=== PATIENT | female | born 1970 | race Two or more races ===

== ENCOUNTER 2016-05-21 | Inpatient (IN) | END 2017-05-20 23:59 | disposition still patient (30) | DRG 133 | DX: J96.11 Chronic respiratory failure with hypoxia (principal); G93.1 Anoxic brain damage, not elsewhere classified; R40.3 Persistent vegetative state; Z93.0 Tracheostomy status; R53.2 Functional quadriplegia; R13.10 Dysphagia, unspecified; N39.0 Urinary tract infection, site not specified; E11.9 Type 2 diabetes mellitus without complications; B95.2 Enterococcus as the cause of diseases classified elsewhere; I11.0 Hypertensive heart disease with heart failure; E87.6 Hypokalemia; Z93.1 Gastrostomy status; Z88.0 Allergy status to penicillin; F32.9 Major depressive disorder, single episode, unspecified; Z86.74 Personal history of sudden cardiac arrest; L21.9 Seborrheic dermatitis, unspecified; M24.50 Contracture, unspecified joint; D56.1 Beta thalassemia; E66.01 Morbid (severe) obesity due to excess calories; Z68.21 Body mass index [BMI] 21.0-21.9, adult; I10 Essential (primary) hypertension; G40.909 Epilepsy, unspecified, not intractable, without status epilepticus; Z79.899 Other long term (current) drug therapy ==

== ENCOUNTER 2017-05-21 | Inpatient (IN) | payer MEDICAID ==
[~2017-05-21] VITALS: Ht 160 cm; Wt 55.3 kg
[2017-05-22 08:00] VITALS: BP 139/87
[2017-05-22] MEDS ORDERED: LOPERAMIDE HCL 1 MG/5 ML UDC GT PRN (11:45)
[2017-05-22] MEDS ORDERED: HYDROGEN PEROXIDE 3% 118 ML BOTTLE TP PRN (11:45)
[2017-05-22] MEDS ORDERED: CALMOSEPTINE 113 GM OINTMENT TP PRN (11:45)
[2017-05-22] MEDS ORDERED: ALBUTEROL SULFATE 1.25 MG/3 ML NEBU NEB PRN (11:45)
[2017-05-22] MEDS ORDERED: ACETAMINOPHEN 650 MG/20 ML UDC- SA PATIENTS-PAIN ONLY GT PRN (11:45)
[2017-05-22] MEDS: SIMETHICONE 40 MG/0.6 ML, 30ML BOTTLE GT SCH ×2 (13:00→17:11)
[2017-05-22] MEDS: BACLOFEN 20 MG TABLET GT SCH ×2 (17:11→21:04)
[2017-05-22] MEDS: ACIDOPHILUS/BULGARICUS CHEW TAB GT SCH (21:04)
[2017-05-22] MEDS: DOCUSATE SODIUM 100 MG/10 ML LIQUID UDC GT SCH (21:04)
[2017-05-22] MEDS: METOPROLOL TARTRATE 50 MG TABLET GT SCH (21:05)
[2017-05-22] MEDS: ASCORBIC ACID 500 MG TABLET PO SCH (21:06)
[2017-05-22] MEDS: NUTRISOURCE FIBER 4 GM PACKET GT SCH (21:06)
[2017-05-22] MEDS: HYDROGEN PEROXIDE 3% 118 ML BOTTLE TP SCH (21:08)
[2017-05-22] MEDS: CALMOSEPTINE 113 GM OINTMENT TP SCH (21:08)
[2017-05-23 00:14] VITALS: BP 106/65
[2017-05-23] MEDS: OMEPRAZOLE 20 MG CAPSULE.DR GT SCH (05:42)
[2017-05-23] MEDS: MULTIVITS W-FE,OTHER MIN 15 ML UDC GT SCH (05:42)
[2017-05-23] MEDS: DIABETICSOURCE AC 1000ML LIQUID GT PRN (07:10)
[2017-05-23 08:00] VITALS: BP 139/87
[2017-05-23] MEDS: DOCUSATE SODIUM 100 MG/10 ML LIQUID UDC GT SCH ×2 (08:07→21:35)
[2017-05-23] MEDS: BACLOFEN 20 MG TABLET GT SCH ×4 (08:07→21:36)
[2017-05-23] MEDS: ACIDOPHILUS/BULGARICUS CHEW TAB GT SCH ×2 (08:07→21:36)
[2017-05-23] MEDS: HYDROGEN PEROXIDE 3% 118 ML BOTTLE TP SCH ×2 (08:08→21:37)
[2017-05-23] MEDS: SERTRALINE HCL 50 MG TABLET GT SCH (08:08)
[2017-05-23] MEDS: CALMOSEPTINE 113 GM OINTMENT TP SCH ×2 (08:08→21:37)
[2017-05-23] MEDS: NUTRISOURCE FIBER 4 GM PACKET GT SCH ×2 (08:08→21:37)
[2017-05-23] MEDS: SIMETHICONE 40 MG/0.6 ML, 30ML BOTTLE GT SCH ×3 (08:08→17:31)
[2017-05-23] MEDS: METOPROLOL TARTRATE 50 MG TABLET GT SCH ×2 (08:08→21:37)
[2017-05-23] MEDS: ASCORBIC ACID 500 MG TABLET PO SCH (21:37)
[2017-05-23 23:24] VITALS: BP 107/67
[2017-05-24] MEDS: OMEPRAZOLE 20 MG CAPSULE.DR GT SCH (05:04)
[2017-05-24 08:00] VITALS: BP 109/70
[2017-05-24] MEDS: METOPROLOL TARTRATE 50 MG TABLET GT SCH ×2 (08:38→21:45)
[2017-05-24] MEDS: BACLOFEN 20 MG TABLET GT SCH ×4 (08:38→21:44)
[2017-05-24] MEDS: SIMETHICONE 40 MG/0.6 ML, 30ML BOTTLE GT SCH ×3 (08:38→17:14)
[2017-05-24] MEDS: DOCUSATE SODIUM 100 MG/10 ML LIQUID UDC GT SCH ×2 (08:38→21:44)
[2017-05-24] MEDS: ACIDOPHILUS/BULGARICUS CHEW TAB GT SCH ×2 (08:38→21:44)
[2017-05-24] MEDS: SERTRALINE HCL 50 MG TABLET GT SCH (08:39)
[2017-05-24] MEDS: NUTRISOURCE FIBER 4 GM PACKET GT SCH ×2 (08:39→21:45)
[2017-05-24] MEDS: HYDROGEN PEROXIDE 3% 118 ML BOTTLE TP SCH ×2 (08:39→21:45)
[2017-05-24] MEDS: CALMOSEPTINE 113 GM OINTMENT TP SCH ×2 (08:39→21:45)
[2017-05-24] MEDS: ASCORBIC ACID 500 MG TABLET PO SCH (21:45)
[2017-05-24 23:41] VITALS: BP 114/69
[2017-05-25] MEDS: MULTIVITS W-FE,OTHER MIN 15 ML UDC GT SCH (05:37)
[2017-05-25] MEDS: OMEPRAZOLE 20 MG CAPSULE.DR GT SCH (05:37)
[2017-05-25 08:00] VITALS: BP 104/70
[2017-05-25] MEDS: BACLOFEN 20 MG TABLET GT SCH ×4 (08:47→21:29)
[2017-05-25] MEDS: ACIDOPHILUS/BULGARICUS CHEW TAB GT SCH ×2 (08:47→21:29)
[2017-05-25] MEDS: DOCUSATE SODIUM 100 MG/10 ML LIQUID UDC GT SCH ×2 (08:47→21:29)
[2017-05-25] MEDS: CALMOSEPTINE 113 GM OINTMENT TP SCH ×2 (08:48→21:30)
[2017-05-25] MEDS: SERTRALINE HCL 50 MG TABLET GT SCH (08:48)
[2017-05-25] MEDS: SIMETHICONE 40 MG/0.6 ML, 30ML BOTTLE GT SCH ×3 (08:48→16:13)
[2017-05-25] MEDS: NUTRISOURCE FIBER 4 GM PACKET GT SCH ×2 (08:48→21:30)
[2017-05-25] MEDS: METOPROLOL TARTRATE 50 MG TABLET GT SCH ×2 (08:48→21:30)
[2017-05-25] MEDS: HYDROGEN PEROXIDE 3% 118 ML BOTTLE TP SCH ×2 (08:48→21:30)
[2017-05-25] MEDS: DIABETICSOURCE AC 1000ML LIQUID GT PRN (14:32)
[2017-05-25 20:35] VITALS: BP 112/73
[2017-05-25] MEDS: ASCORBIC ACID 500 MG TABLET PO SCH (21:30)
[2017-05-26] MEDS: OMEPRAZOLE 20 MG CAPSULE.DR GT SCH (05:03)
[2017-05-26 08:09] VITALS: BP 110/77
[2017-05-26] MEDS: DOCUSATE SODIUM 100 MG/10 ML LIQUID UDC GT SCH ×2 (09:52→20:48)
[2017-05-26] MEDS: BACLOFEN 20 MG TABLET GT SCH ×4 (09:52→20:48)
[2017-05-26] MEDS: ACIDOPHILUS/BULGARICUS CHEW TAB GT SCH ×2 (09:52→20:48)
[2017-05-26] MEDS: SIMETHICONE 40 MG/0.6 ML, 30ML BOTTLE GT SCH ×3 (09:53→17:48)
[2017-05-26] MEDS: METOPROLOL TARTRATE 50 MG TABLET GT SCH ×2 (09:53→20:49)
[2017-05-26] MEDS: SERTRALINE HCL 50 MG TABLET GT SCH (09:53)
[2017-05-26] MEDS: HYDROGEN PEROXIDE 3% 118 ML BOTTLE TP SCH ×2 (09:53→20:50)
[2017-05-26] MEDS: CALMOSEPTINE 113 GM OINTMENT TP SCH ×2 (09:53→20:50)
[2017-05-26] MEDS: NUTRISOURCE FIBER 4 GM PACKET GT SCH ×2 (09:53→20:50)
[2017-05-26 20:33] VITALS: BP 126/87
[2017-05-26] MEDS: ASCORBIC ACID 500 MG TABLET PO SCH (20:50)
[2017-05-26] MEDS: DIABETICSOURCE AC 1000ML LIQUID GT PRN (20:50)
[2017-05-27] MEDS: MULTIVITS W-FE,OTHER MIN 15 ML UDC GT SCH (05:56)
[2017-05-27] MEDS: OMEPRAZOLE 20 MG CAPSULE.DR GT SCH (05:56)
[2017-05-27] MEDS: ACETAMINOPHEN 650 MG/20 ML UDC- SA PATIENTS-PAIN ONLY GT PRN (05:58)
[2017-05-27 08:09] VITALS: BP 119/72
[2017-05-27] MEDS: ACIDOPHILUS/BULGARICUS CHEW TAB GT SCH ×2 (08:39→21:29)
[2017-05-27] MEDS: DOCUSATE SODIUM 100 MG/10 ML LIQUID UDC GT SCH ×2 (08:39→21:29)
[2017-05-27] MEDS: METOPROLOL TARTRATE 50 MG TABLET GT SCH ×2 (08:40→21:29)
[2017-05-27] MEDS: SIMETHICONE 40 MG/0.6 ML, 30ML BOTTLE GT SCH ×3 (08:40→17:21)
[2017-05-27] MEDS: BACLOFEN 20 MG TABLET GT SCH ×4 (08:40→21:29)
[2017-05-27] MEDS: TRIAMCINOLONE ACET 0.1% CREAM 15 GM TUBE TP SCH ×2 (08:41)
[2017-05-27] MEDS: NYSTATIN CREAM 30 GM TUBE TP SCH ×2 (08:41)
[2017-05-27] MEDS: SERTRALINE HCL 50 MG TABLET GT SCH (08:41)
[2017-05-27] MEDS: CALMOSEPTINE 113 GM OINTMENT TP SCH ×2 (08:41→21:30)
[2017-05-27] MEDS: NUTRISOURCE FIBER 4 GM PACKET GT SCH ×2 (08:41→21:29)
[2017-05-27] MEDS: HYDROGEN PEROXIDE 3% 118 ML BOTTLE TP SCH ×2 (08:41→21:31)
[2017-05-27 20:26] VITALS: BP 107/68
[2017-05-27] MEDS: ASCORBIC ACID 500 MG TABLET PO SCH (21:30)
[2017-05-27] MEDS: DIABETICSOURCE AC 1000ML LIQUID GT PRN (21:48)
[2017-05-28] MEDS: OMEPRAZOLE 20 MG CAPSULE.DR GT SCH (06:17)
[2017-05-28 08:00] VITALS: BP 100/67
[2017-05-28] MEDS: ACIDOPHILUS/BULGARICUS CHEW TAB GT SCH ×2 (08:11→21:52)
[2017-05-28] MEDS: DOCUSATE SODIUM 100 MG/10 ML LIQUID UDC GT SCH ×2 (08:11→21:52)
[2017-05-28] MEDS: HYDROGEN PEROXIDE 3% 118 ML BOTTLE TP SCH ×2 (08:12→21:53)
[2017-05-28] MEDS: CALMOSEPTINE 113 GM OINTMENT TP SCH ×2 (08:12→21:53)
[2017-05-28] MEDS: NYSTATIN CREAM 30 GM TUBE TP SCH ×2 (08:12)
[2017-05-28] MEDS: SIMETHICONE 40 MG/0.6 ML, 30ML BOTTLE GT SCH ×3 (08:12→17:29)
[2017-05-28] MEDS: NUTRISOURCE FIBER 4 GM PACKET GT SCH ×2 (08:12→21:53)
[2017-05-28] MEDS: METOPROLOL TARTRATE 50 MG TABLET GT SCH ×2 (08:12→21:53)
[2017-05-28] MEDS: BACLOFEN 20 MG TABLET GT SCH ×4 (08:12→21:52)
[2017-05-28] MEDS: TRIAMCINOLONE ACET 0.1% CREAM 15 GM TUBE TP SCH ×2 (08:12)
[2017-05-28] MEDS: SERTRALINE HCL 50 MG TABLET GT SCH (08:12)
--- NOTE | 2017-05-28 14:15 | NUR ---
SEEN BY GLENN MORGAN.
--- NOTE | 2017-05-28 14:19 | NUR ---
SEEN BY ABIEL MORGAN.
[2017-05-28] MEDS: ASCORBIC ACID 500 MG TABLET PO SCH (21:53)
[2017-05-29 01:30] VITALS: BP 106/65
[2017-05-29] MEDS: DIABETICSOURCE AC 1000ML LIQUID GT PRN (01:43)
[2017-05-29] MEDS: OMEPRAZOLE 20 MG CAPSULE.DR GT SCH (06:45)
[2017-05-29] MEDS: MULTIVITS W-FE,OTHER MIN 15 ML UDC GT SCH (06:45)
[2017-05-29] MEDS: BACLOFEN 20 MG TABLET GT SCH ×4 (09:06→21:38)
[2017-05-29] MEDS: ACIDOPHILUS/BULGARICUS CHEW TAB GT SCH ×2 (09:06→21:37)
[2017-05-29] MEDS: DOCUSATE SODIUM 100 MG/10 ML LIQUID UDC GT SCH ×2 (09:06→21:37)
[2017-05-29] MEDS: CALMOSEPTINE 113 GM OINTMENT TP SCH ×2 (09:07→21:39)
[2017-05-29] MEDS: METOPROLOL TARTRATE 50 MG TABLET GT SCH ×2 (09:07→21:38)
[2017-05-29] MEDS: SIMETHICONE 40 MG/0.6 ML, 30ML BOTTLE GT SCH ×3 (09:07→16:39)
[2017-05-29] MEDS: SERTRALINE HCL 50 MG TABLET GT SCH (09:07)
[2017-05-29] MEDS: NUTRISOURCE FIBER 4 GM PACKET GT SCH ×2 (09:07→21:38)
[2017-05-29] MEDS: HYDROGEN PEROXIDE 3% 118 ML BOTTLE TP SCH ×2 (09:07→21:39)
[2017-05-29] MEDS: TRIAMCINOLONE ACET 0.1% CREAM 15 GM TUBE TP SCH ×2 (09:08)
[2017-05-29] MEDS: NYSTATIN CREAM 30 GM TUBE TP SCH ×2 (09:08→09:09)
[2017-05-29 11:18] VITALS: BP 114/73
--- NOTE | 2017-05-29 14:30 | NUR ---
SEEN BY HAROLDO MORGAN.
[2017-05-29 20:00] VITALS: BP 120/81
[2017-05-29] MEDS: ASCORBIC ACID 500 MG TABLET PO SCH (21:39)
[2017-05-30] MEDS: DIABETICSOURCE AC 1000ML LIQUID GT PRN (00:35)
[2017-05-30] MEDS: OMEPRAZOLE 20 MG CAPSULE.DR GT SCH (05:41)
[2017-05-30] MEDS: DOCUSATE SODIUM 100 MG/10 ML LIQUID UDC GT SCH ×2 (08:15→21:39)
[2017-05-30] MEDS: ACIDOPHILUS/BULGARICUS CHEW TAB GT SCH ×2 (08:15→21:39)
[2017-05-30] MEDS: BACLOFEN 20 MG TABLET GT SCH ×4 (08:15→21:39)
[2017-05-30] MEDS: METOPROLOL TARTRATE 50 MG TABLET GT SCH ×2 (08:16→21:40)
[2017-05-30] MEDS: SIMETHICONE 40 MG/0.6 ML, 30ML BOTTLE GT SCH ×3 (08:16→17:31)
[2017-05-30] MEDS: SERTRALINE HCL 50 MG TABLET GT SCH (08:17)
[2017-05-30] MEDS: CALMOSEPTINE 113 GM OINTMENT TP SCH ×2 (08:17→21:40)
[2017-05-30] MEDS: NUTRISOURCE FIBER 4 GM PACKET GT SCH ×2 (08:17→21:40)
[2017-05-30] MEDS: HYDROGEN PEROXIDE 3% 118 ML BOTTLE TP SCH ×2 (08:17→21:40)
[2017-05-30] MEDS: TRIAMCINOLONE ACET 0.1% CREAM 15 GM TUBE TP SCH ×2 (08:17)
[2017-05-30] MEDS: NYSTATIN CREAM 30 GM TUBE TP SCH ×2 (08:17→08:18)
[2017-05-30 11:03] VITALS: BP 105/66
[2017-05-30 20:00] VITALS: BP 127/90
[2017-05-30] MEDS: ASCORBIC ACID 500 MG TABLET PO SCH (21:40)
[2017-05-31] MEDS: BISACODYL 10 MG SUPP.RECT RC PRN (02:00)
[2017-05-31] MEDS: MULTIVITS W-FE,OTHER MIN 15 ML UDC GT SCH (05:50)
[2017-05-31] MEDS: DIABETICSOURCE AC 1000ML LIQUID GT PRN ×2 (05:50→10:15)
[2017-05-31] MEDS: OMEPRAZOLE 20 MG CAPSULE.DR GT SCH (05:50)
[2017-05-31 08:08] VITALS: BP 108/70
[2017-05-31] MEDS: NUTRISOURCE FIBER 4 GM PACKET GT SCH ×2 (09:00→21:38)
[2017-05-31] MEDS: BACLOFEN 20 MG TABLET GT SCH ×4 (09:00→21:37)
[2017-05-31] MEDS: TRIAMCINOLONE ACET 0.1% CREAM 15 GM TUBE TP SCH ×2 (09:00)
[2017-05-31] MEDS: METOPROLOL TARTRATE 50 MG TABLET GT SCH ×2 (09:00→21:38)
[2017-05-31] MEDS: DOCUSATE SODIUM 100 MG/10 ML LIQUID UDC GT SCH ×2 (09:00→21:37)
[2017-05-31] MEDS: CALMOSEPTINE 113 GM OINTMENT TP SCH ×2 (09:00→21:38)
[2017-05-31] MEDS: HYDROGEN PEROXIDE 3% 118 ML BOTTLE TP SCH ×2 (09:00→21:38)
[2017-05-31] MEDS: ACIDOPHILUS/BULGARICUS CHEW TAB GT SCH ×2 (09:00→21:37)
[2017-05-31] MEDS: SIMETHICONE 40 MG/0.6 ML, 30ML BOTTLE GT SCH ×3 (09:00→16:24)
[2017-05-31] MEDS: SERTRALINE HCL 50 MG TABLET GT SCH (09:00)
[2017-05-31] MEDS: NYSTATIN CREAM 30 GM TUBE TP SCH ×2 (09:00)
[2017-05-31 20:00] VITALS: BP 113/74
[2017-05-31] MEDS: ASCORBIC ACID 500 MG TABLET PO SCH (21:38)
--- NOTE | 2017-06-01 02:33 | NUR ---
Changed multivitamins with minerals liquid to tablet form: Multivitamins with minerals one tablet every 48 hours @ 0600.
[2017-06-01] MEDS: OMEPRAZOLE 20 MG CAPSULE.DR GT SCH (05:42)
[2017-06-01] MEDS: DIABETICSOURCE AC 1000ML LIQUID GT PRN (06:00)
[2017-06-01] MEDS ORDERED: MULTIVIT, IRON, MIN NO. 8, FA TABLET GT SCH ×2 (06:30→08:26)
[2017-06-01 08:06] VITALS: BP 98/65
[2017-06-01] MEDS: METOPROLOL TARTRATE 50 MG TABLET GT SCH ×2 (09:00→21:37)
[2017-06-01] MEDS: BACLOFEN 20 MG TABLET GT SCH ×4 (09:48→21:37)
[2017-06-01] MEDS: ACIDOPHILUS/BULGARICUS CHEW TAB GT SCH ×2 (09:48→21:37)
[2017-06-01] MEDS: DOCUSATE SODIUM 100 MG/10 ML LIQUID UDC GT SCH ×2 (09:48→21:37)
[2017-06-01] MEDS: CALMOSEPTINE 113 GM OINTMENT TP SCH ×2 (09:49→21:37)
[2017-06-01] MEDS: NUTRISOURCE FIBER 4 GM PACKET GT SCH ×2 (09:49→21:37)
[2017-06-01] MEDS: SERTRALINE HCL 50 MG TABLET GT SCH (09:49)
[2017-06-01] MEDS: HYDROGEN PEROXIDE 3% 118 ML BOTTLE TP SCH ×2 (09:49→21:37)
[2017-06-01] MEDS: SIMETHICONE 40 MG/0.6 ML, 30ML BOTTLE GT SCH ×3 (09:49→16:58)
[2017-06-01] MEDS: TRIAMCINOLONE ACET 0.1% CREAM 15 GM TUBE TP SCH ×2 (09:50)
[2017-06-01] MEDS: NYSTATIN CREAM 30 GM TUBE TP SCH ×2 (09:50)
[2017-06-01 20:00] VITALS: BP 110/69
[2017-06-01] MEDS: ASCORBIC ACID 500 MG TABLET PO SCH (21:37)
[2017-06-02] MEDS: DIABETICSOURCE AC 1000ML LIQUID GT PRN (03:58)
[2017-06-02] MEDS: OMEPRAZOLE 20 MG CAPSULE.DR GT SCH (05:13)
[2017-06-02 08:06] VITALS: BP 103/70
[2017-06-02] MEDS: BACLOFEN 20 MG TABLET GT SCH ×4 (08:37→21:03)
[2017-06-02] MEDS: ACIDOPHILUS/BULGARICUS CHEW TAB GT SCH ×2 (08:37→21:03)
[2017-06-02] MEDS: DOCUSATE SODIUM 100 MG/10 ML LIQUID UDC GT SCH ×2 (08:37→21:03)
[2017-06-02] MEDS: METOPROLOL TARTRATE 50 MG TABLET GT SCH ×2 (08:37→21:05)
[2017-06-02] MEDS: SIMETHICONE 40 MG/0.6 ML, 30ML BOTTLE GT SCH ×3 (08:38→17:14)
[2017-06-02] MEDS: NYSTATIN CREAM 30 GM TUBE TP SCH ×2 (08:38)
[2017-06-02] MEDS: SERTRALINE HCL 50 MG TABLET GT SCH (08:38)
[2017-06-02] MEDS: CALMOSEPTINE 113 GM OINTMENT TP SCH ×2 (08:38→21:03)
[2017-06-02] MEDS: NUTRISOURCE FIBER 4 GM PACKET GT SCH ×2 (08:38→21:03)
[2017-06-02] MEDS: TRIAMCINOLONE ACET 0.1% CREAM 15 GM TUBE TP SCH ×2 (08:38)
[2017-06-02] MEDS: HYDROGEN PEROXIDE 3% 118 ML BOTTLE TP SCH ×2 (08:38→21:03)
--- NOTE | 2017-06-02 17:51 | NUR ---
MESSAGE WAS LEFT FOR PT'S BROTHER JANET TO COME AND SIGN RENEWAL CONSENT FOR ZOLOFT ( RECOMMENDED BY PHARMACIST)
[2017-06-02 20:00] VITALS: BP 108/72
[2017-06-02] MEDS: ASCORBIC ACID 500 MG TABLET PO SCH (21:03)
[2017-06-03] MEDS: OMEPRAZOLE 20 MG CAPSULE.DR GT SCH (05:15)
[2017-06-03] MEDS: MULTIVIT, IRON, MIN NO. 8, FA TABLET GT SCH (05:37)
[2017-06-03 08:03] VITALS: BP 106/68
[2017-06-03] MEDS: METOPROLOL TARTRATE 50 MG TABLET GT SCH ×2 (08:55→21:36)
[2017-06-03] MEDS: ACIDOPHILUS/BULGARICUS CHEW TAB GT SCH ×2 (08:55→21:35)
[2017-06-03] MEDS: BACLOFEN 20 MG TABLET GT SCH ×4 (08:55→21:35)
[2017-06-03] MEDS: TRIAMCINOLONE ACET 0.1% CREAM 15 GM TUBE TP SCH ×2 (08:56)
[2017-06-03] MEDS: NYSTATIN CREAM 30 GM TUBE TP SCH ×2 (08:56)
[2017-06-03] MEDS: SERTRALINE HCL 50 MG TABLET GT SCH (08:56)
[2017-06-03] MEDS: CALMOSEPTINE 113 GM OINTMENT TP SCH ×2 (08:56→21:36)
[2017-06-03] MEDS: SIMETHICONE 40 MG/0.6 ML, 30ML BOTTLE GT SCH ×3 (08:56→17:37)
[2017-06-03] MEDS: HYDROGEN PEROXIDE 3% 118 ML BOTTLE TP SCH ×2 (08:56→21:36)
[2017-06-03] MEDS: NUTRISOURCE FIBER 4 GM PACKET GT SCH ×2 (08:56→21:36)
[2017-06-03] MEDS: DOCUSATE SODIUM 100 MG/10 ML LIQUID UDC GT SCH ×3 (09:00→21:35)
--- NOTE | 2017-06-03 09:28 | NUR ---
PICTURE TAKEN BY [facility] SHIFT NURSE ,INNER BUTTOCKS EXCORIATION RELATED TO LOOSE STOOL ,STOOL SOFTENER HELD ,LOCAL TX STARTED FROM DR. IBRAHIM .
--- NOTE | 2017-06-03 11:47 | NUR ---
PT'S BROTHER AWARE THAT NEEDS TO COME AND SIGN RENEWED CONSENT FOR ZOLOFT AND HE STATED THAT HE WILL COME TO SEE PT. NEXT WEEKEND.
[2017-06-03 20:47] VITALS: BP 118/75
[2017-06-03] MEDS: ASCORBIC ACID 500 MG TABLET PO SCH (21:36)
[2017-06-04] MEDS: OMEPRAZOLE 20 MG CAPSULE.DR GT SCH (05:27)
[2017-06-04 08:00] VITALS: BP 123/80
[2017-06-04] MEDS: DOCUSATE SODIUM 100 MG/10 ML LIQUID UDC GT SCH ×2 (08:02→21:00)
[2017-06-04] MEDS: BACLOFEN 20 MG TABLET GT SCH ×4 (08:02→20:56)
[2017-06-04] MEDS: ACIDOPHILUS/BULGARICUS CHEW TAB GT SCH ×2 (08:02→20:56)
[2017-06-04] MEDS: SIMETHICONE 40 MG/0.6 ML, 30ML BOTTLE GT SCH ×3 (08:03→17:21)
[2017-06-04] MEDS: METOPROLOL TARTRATE 50 MG TABLET GT SCH ×2 (08:03→20:57)
[2017-06-04] MEDS: TRIAMCINOLONE ACET 0.1% CREAM 15 GM TUBE TP SCH ×2 (08:04)
[2017-06-04] MEDS: HYDROGEN PEROXIDE 3% 118 ML BOTTLE TP SCH ×2 (08:04→20:58)
[2017-06-04] MEDS: CALMOSEPTINE 113 GM OINTMENT TP SCH ×2 (08:04→20:58)
[2017-06-04] MEDS: NYSTATIN CREAM 30 GM TUBE TP SCH ×4 (08:04→20:59)
[2017-06-04] MEDS: SERTRALINE HCL 50 MG TABLET GT SCH (08:04)
[2017-06-04] MEDS: NUTRISOURCE FIBER 4 GM PACKET GT SCH ×2 (08:04→20:57)
[2017-06-04] MEDS: COD LIVER OIL/ZINC OXIDE OINT 113 GM TUBE TP SCH ×2 (08:09→20:58)
--- NOTE | 2017-06-04 09:34 | NUR ---
SEEN BY GLENN Bolaños AND O.
--- NOTE | 2017-06-04 09:43 | NUR ---
SEEN Y ABIEL MORGAN.
--- NOTE | 2017-06-04 15:25 | NUR ---
SW met with patient's caregiver and gave her the packet of all annual admission paperwork that patient's mother needs to review and sign. SW provided instructions with the packet. SW asked the caregiver to deliver the forms to patient's mother and return them back to once they are signed by patient's mother. Caregiver agreed.
[2017-06-04] MEDS: DIABETICSOURCE AC 1000ML LIQUID GT PRN (15:51)
[2017-06-04] MEDS: ASCORBIC ACID 500 MG TABLET PO SCH (20:57)
[2017-06-04 21:13] VITALS: BP 100/63
[2017-06-05] MEDS: OMEPRAZOLE 20 MG CAPSULE.DR GT SCH (05:34)
[2017-06-05] MEDS: MULTIVIT, IRON, MIN NO. 8, FA TABLET GT SCH (05:34)
[2017-06-05] MEDS: DOCUSATE SODIUM 100 MG/10 ML LIQUID UDC GT SCH ×2 (09:20→21:49)
[2017-06-05] MEDS: BACLOFEN 20 MG TABLET GT SCH ×4 (09:21→21:49)
[2017-06-05] MEDS: ACIDOPHILUS/BULGARICUS CHEW TAB GT SCH ×2 (09:21→21:49)
[2017-06-05] MEDS: NUTRISOURCE FIBER 4 GM PACKET GT SCH ×2 (09:22→21:51)
[2017-06-05] MEDS: METOPROLOL TARTRATE 50 MG TABLET GT SCH ×2 (09:22→21:50)
[2017-06-05] MEDS: SIMETHICONE 40 MG/0.6 ML, 30ML BOTTLE GT SCH ×3 (09:22→16:02)
[2017-06-05] MEDS: CALMOSEPTINE 113 GM OINTMENT TP SCH ×2 (09:23→21:51)
[2017-06-05] MEDS: SERTRALINE HCL 50 MG TABLET GT SCH (09:23)
[2017-06-05] MEDS: COD LIVER OIL/ZINC OXIDE OINT 113 GM TUBE TP SCH ×2 (09:24→21:51)
[2017-06-05] MEDS: NYSTATIN CREAM 30 GM TUBE TP SCH ×4 (09:24→21:51)
[2017-06-05] MEDS: TRIAMCINOLONE ACET 0.1% CREAM 15 GM TUBE TP SCH ×2 (09:24)
[2017-06-05] MEDS: HYDROGEN PEROXIDE 3% 118 ML BOTTLE TP SCH ×2 (09:24→21:51)
[2017-06-05] MEDS: ACETAMINOPHEN 650 MG/20 ML UDC- SA PATIENTS-PAIN ONLY GT PRN (12:45)
--- NOTE | 2017-06-05 13:46 | NUR ---
INTERDISCIPLINARY PLAN OF CARE CONFERENCE was held today. Patient's family was invited to attend the meeting, but they were unable to attend. Dr. Heaton and the Interdisciplinary Team reviewed the current plan of care in detail. RN provided updates on patient's current medical condition and skin treatments. No major changes were reported. See RN IDT conference notes. See also all other disciplines IDT notes and physician's progress notes for additional details.
--- NOTE | 2017-06-05 16:00 | NUR ---
SEEN BY DR ABIEL CARMICHAEL,NO NEW ORDERS NOTED.
[2017-06-05] MEDS: DIABETICSOURCE AC 1000ML LIQUID GT PRN (16:12)
[2017-06-05] MEDS: ASCORBIC ACID 500 MG TABLET PO SCH (21:51)
[2017-06-06] MEDS: OMEPRAZOLE 20 MG CAPSULE.DR GT SCH (05:54)
[2017-06-06 08:09] VITALS: BP 108/72
[2017-06-06] MEDS: DOCUSATE SODIUM 100 MG/10 ML LIQUID UDC GT SCH ×2 (08:36→21:02)
[2017-06-06] MEDS: ACIDOPHILUS/BULGARICUS CHEW TAB GT SCH ×2 (08:37→21:02)
[2017-06-06] MEDS: BACLOFEN 20 MG TABLET GT SCH ×4 (08:37→21:02)
[2017-06-06] MEDS: METOPROLOL TARTRATE 50 MG TABLET GT SCH ×2 (08:38→21:02)
[2017-06-06] MEDS: NUTRISOURCE FIBER 4 GM PACKET GT SCH ×2 (08:39→21:02)
[2017-06-06] MEDS: CALMOSEPTINE 113 GM OINTMENT TP SCH ×2 (08:39→21:02)
[2017-06-06] MEDS: TRIAMCINOLONE ACET 0.1% CREAM 15 GM TUBE TP SCH ×2 (08:39→08:40)
[2017-06-06] MEDS: SIMETHICONE 40 MG/0.6 ML, 30ML BOTTLE GT SCH ×3 (08:39→16:27)
[2017-06-06] MEDS: HYDROGEN PEROXIDE 3% 118 ML BOTTLE TP SCH ×2 (08:39→21:02)
[2017-06-06] MEDS: SERTRALINE HCL 50 MG TABLET GT SCH (08:39)
[2017-06-06] MEDS: COD LIVER OIL/ZINC OXIDE OINT 113 GM TUBE TP SCH ×2 (08:39→21:02)
[2017-06-06] MEDS: NYSTATIN CREAM 30 GM TUBE TP SCH ×4 (08:40→21:02)
[2017-06-06] MEDS: DIABETICSOURCE AC 1000ML LIQUID GT PRN (16:27)
--- NOTE | 2017-06-06 17:47 | NUR ---
SEEN AND EXAMINED BY DR IBRAHIM,NO NEW ORDERS NOTED.
--- NOTE | 2017-06-06 19:18 | NUR ---
SEEN AND EXAMINED BY DR OGLESBY ,NO NEW ORDERS.
[2017-06-06 20:11] VITALS: BP 112/73
[2017-06-06] MEDS: ASCORBIC ACID 500 MG TABLET PO SCH (21:02)
[2017-06-07] MEDS: MULTIVIT, IRON, MIN NO. 8, FA TABLET GT SCH (05:31)
[2017-06-07] MEDS: OMEPRAZOLE 20 MG CAPSULE.DR GT SCH (05:31)
[2017-06-07 08:09] VITALS: BP 116/71
[2017-06-07] MEDS: ACIDOPHILUS/BULGARICUS CHEW TAB GT SCH ×2 (08:14→20:56)
[2017-06-07] MEDS: DOCUSATE SODIUM 100 MG/10 ML LIQUID UDC GT SCH ×2 (08:14→20:56)
[2017-06-07] MEDS: METOPROLOL TARTRATE 50 MG TABLET GT SCH ×2 (08:16→20:56)
[2017-06-07] MEDS: BACLOFEN 20 MG TABLET GT SCH ×4 (08:16→20:56)
[2017-06-07] MEDS: SIMETHICONE 40 MG/0.6 ML, 30ML BOTTLE GT SCH ×3 (08:16→16:35)
[2017-06-07] MEDS: NUTRISOURCE FIBER 4 GM PACKET GT SCH ×2 (08:16→20:56)
[2017-06-07] MEDS: COD LIVER OIL/ZINC OXIDE OINT 113 GM TUBE TP SCH ×2 (08:17→20:57)
[2017-06-07] MEDS: SERTRALINE HCL 50 MG TABLET GT SCH (08:17)
[2017-06-07] MEDS: CALMOSEPTINE 113 GM OINTMENT TP SCH ×2 (08:17→20:57)
[2017-06-07] MEDS: TRIAMCINOLONE ACET 0.1% CREAM 15 GM TUBE TP SCH ×2 (08:17)
[2017-06-07] MEDS: HYDROGEN PEROXIDE 3% 118 ML BOTTLE TP SCH ×2 (08:17→20:57)
[2017-06-07] MEDS: NYSTATIN CREAM 30 GM TUBE TP SCH ×4 (08:17→20:57)
[2017-06-07] MEDS: ACETAMINOPHEN 650 MG/20 ML UDC- SA PATIENTS-PAIN ONLY GT PRN (14:17)
[2017-06-07] MEDS: DIABETICSOURCE AC 1000ML LIQUID GT PRN (16:51)
[2017-06-07 20:19] VITALS: BP 105/78
[2017-06-07] MEDS: ASCORBIC ACID 500 MG TABLET PO SCH (20:57)
[2017-06-08] MEDS: OMEPRAZOLE 20 MG CAPSULE.DR GT SCH (05:16)
[2017-06-08 08:06] VITALS: BP 113/71
[2017-06-08] MEDS: DOCUSATE SODIUM 100 MG/10 ML LIQUID UDC GT SCH ×2 (08:48→20:01)
[2017-06-08] MEDS: BACLOFEN 20 MG TABLET GT SCH ×4 (08:49→20:01)
[2017-06-08] MEDS: METOPROLOL TARTRATE 50 MG TABLET GT SCH ×2 (08:49→20:04)
[2017-06-08] MEDS: SIMETHICONE 40 MG/0.6 ML, 30ML BOTTLE GT SCH ×3 (08:49→16:39)
[2017-06-08] MEDS: NUTRISOURCE FIBER 4 GM PACKET GT SCH ×2 (08:49→20:01)
[2017-06-08] MEDS: ACIDOPHILUS/BULGARICUS CHEW TAB GT SCH ×2 (08:49→20:01)
[2017-06-08] MEDS: NYSTATIN CREAM 30 GM TUBE TP SCH ×4 (08:50→20:01)
[2017-06-08] MEDS: CALMOSEPTINE 113 GM OINTMENT TP SCH ×2 (08:50→20:01)
[2017-06-08] MEDS: COD LIVER OIL/ZINC OXIDE OINT 113 GM TUBE TP SCH ×2 (08:50→20:01)
[2017-06-08] MEDS: SERTRALINE HCL 50 MG TABLET GT SCH (08:50)
[2017-06-08] MEDS: TRIAMCINOLONE ACET 0.1% CREAM 15 GM TUBE TP SCH ×2 (08:50)
[2017-06-08] MEDS: HYDROGEN PEROXIDE 3% 118 ML BOTTLE TP SCH ×2 (08:50→20:01)
[2017-06-08] MEDS: ASCORBIC ACID 500 MG TABLET PO SCH (20:01)
[2017-06-08] MEDS: DIABETICSOURCE AC 1000ML LIQUID GT PRN (20:02)
[2017-06-08 20:19] VITALS: BP 110/76
[2017-06-09] MEDS: ACETAMINOPHEN 650 MG/20 ML UDC- SA PATIENTS-PAIN ONLY GT PRN (05:31)
[2017-06-09] MEDS: OMEPRAZOLE 20 MG CAPSULE.DR GT SCH (05:31)
[2017-06-09] MEDS: MULTIVIT, IRON, MIN NO. 8, FA TABLET GT SCH (05:31)
[2017-06-09 08:05] VITALS: BP 109/76
[2017-06-09] MEDS: BACLOFEN 20 MG TABLET GT SCH ×4 (09:18→21:04)
[2017-06-09] MEDS: ACIDOPHILUS/BULGARICUS CHEW TAB GT SCH ×2 (09:18→21:04)
[2017-06-09] MEDS: DOCUSATE SODIUM 100 MG/10 ML LIQUID UDC GT SCH ×2 (09:18→21:04)
[2017-06-09] MEDS: NUTRISOURCE FIBER 4 GM PACKET GT SCH ×2 (09:20→21:04)
[2017-06-09] MEDS: CALMOSEPTINE 113 GM OINTMENT TP SCH ×2 (09:20→21:04)
[2017-06-09] MEDS: SIMETHICONE 40 MG/0.6 ML, 30ML BOTTLE GT SCH ×3 (09:20→17:03)
[2017-06-09] MEDS: METOPROLOL TARTRATE 50 MG TABLET GT SCH ×2 (09:20→21:04)
[2017-06-09] MEDS: SERTRALINE HCL 50 MG TABLET GT SCH (09:20)
[2017-06-09] MEDS: COD LIVER OIL/ZINC OXIDE OINT 113 GM TUBE TP SCH ×2 (09:21→21:04)
[2017-06-09] MEDS: HYDROGEN PEROXIDE 3% 118 ML BOTTLE TP SCH ×2 (09:21→21:04)
[2017-06-09] MEDS: TRIAMCINOLONE ACET 0.1% CREAM 15 GM TUBE TP SCH ×2 (09:22→09:23)
[2017-06-09] MEDS: NYSTATIN CREAM 30 GM TUBE TP SCH ×4 (09:23→21:04)
[2017-06-09 20:16] VITALS: BP 109/75
[2017-06-09] MEDS: ASCORBIC ACID 500 MG TABLET PO SCH (21:04)
[2017-06-09] MEDS: DIABETICSOURCE AC 1000ML LIQUID GT PRN (22:53)
[2017-06-10] MEDS: OMEPRAZOLE 20 MG CAPSULE.DR GT SCH (05:40)
[2017-06-10 08:07] VITALS: BP 96/69
[2017-06-10] MEDS: METOPROLOL TARTRATE 50 MG TABLET GT SCH ×2 (09:00→21:39)
[2017-06-10] MEDS: DOCUSATE SODIUM 100 MG/10 ML LIQUID UDC GT SCH ×2 (09:19→21:38)
[2017-06-10] MEDS: BACLOFEN 20 MG TABLET GT SCH ×4 (09:20→21:38)
[2017-06-10] MEDS: ACIDOPHILUS/BULGARICUS CHEW TAB GT SCH ×2 (09:20→21:38)
[2017-06-10] MEDS: SIMETHICONE 40 MG/0.6 ML, 30ML BOTTLE GT SCH ×3 (09:21→16:45)
[2017-06-10] MEDS: SERTRALINE HCL 50 MG TABLET GT SCH (09:22)
[2017-06-10] MEDS: HYDROGEN PEROXIDE 3% 118 ML BOTTLE TP SCH ×2 (09:22→21:39)
[2017-06-10] MEDS: CALMOSEPTINE 113 GM OINTMENT TP SCH ×2 (09:22→21:39)
[2017-06-10] MEDS: COD LIVER OIL/ZINC OXIDE OINT 113 GM TUBE TP SCH (09:22)
[2017-06-10] MEDS: NUTRISOURCE FIBER 4 GM PACKET GT SCH ×2 (09:22→21:39)
[2017-06-10] MEDS: NYSTATIN CREAM 30 GM TUBE TP SCH ×2 (09:23→21:40)
[2017-06-10 20:34] VITALS: BP 106/62
[2017-06-10] MEDS: ASCORBIC ACID 500 MG TABLET PO SCH (21:39)
[2017-06-10] MEDS: TRIAMCINOLONE ACET 0.1% CREAM 15 GM TUBE TP SCH (21:39)
[2017-06-11] MEDS: DIABETICSOURCE AC 1000ML LIQUID GT PRN (03:03)
[2017-06-11] MEDS: MULTIVIT, IRON, MIN NO. 8, FA TABLET GT SCH (06:06)
[2017-06-11] MEDS: OMEPRAZOLE 20 MG CAPSULE.DR GT SCH (06:06)
[2017-06-11 08:00] VITALS: BP 102/60
[2017-06-11] MEDS: ACIDOPHILUS/BULGARICUS CHEW TAB GT SCH ×2 (08:42→21:39)
[2017-06-11] MEDS: DOCUSATE SODIUM 100 MG/10 ML LIQUID UDC GT SCH ×2 (08:42→21:39)
[2017-06-11] MEDS: BACLOFEN 20 MG TABLET GT SCH ×4 (08:42→21:39)
[2017-06-11] MEDS: SIMETHICONE 40 MG/0.6 ML, 30ML BOTTLE GT SCH ×3 (08:43→17:30)
[2017-06-11] MEDS: METOPROLOL TARTRATE 50 MG TABLET GT SCH ×2 (08:43→21:40)
[2017-06-11] MEDS: HYDROGEN PEROXIDE 3% 118 ML BOTTLE TP SCH ×2 (08:45→21:40)
[2017-06-11] MEDS: SERTRALINE HCL 50 MG TABLET GT SCH (08:45)
[2017-06-11] MEDS: NUTRISOURCE FIBER 4 GM PACKET GT SCH ×2 (08:45→21:40)
[2017-06-11] MEDS: NYSTATIN CREAM 30 GM TUBE TP SCH ×2 (08:45→21:40)
[2017-06-11] MEDS: CALMOSEPTINE 113 GM OINTMENT TP SCH ×2 (08:45→21:40)
[2017-06-11] MEDS: TRIAMCINOLONE ACET 0.1% CREAM 15 GM TUBE TP SCH ×2 (08:45→21:40)
--- NOTE | 2017-06-11 14:49 | NUR ---
SW received all annual admission paperwork back today, signed by patient's mother Rashel. The following forms were included: 1) Conditions of Admission 2) Patient's Rights Acknowledgement 3) Voluntary Prior Express Consent Form 4) Documentation of Preferred Intensity of Care 5) [facility] Admission Agreement
[2017-06-11 20:46] VITALS: BP 123/80
[2017-06-11] MEDS: ASCORBIC ACID 500 MG TABLET PO SCH (21:40)
[2017-06-12] MEDS: OMEPRAZOLE 20 MG CAPSULE.DR GT SCH (05:08)
[2017-06-12] MEDS: DIABETICSOURCE AC 1000ML LIQUID GT PRN (05:09)
[2017-06-12 08:00] VITALS: BP 112/74
[2017-06-12] MEDS: ACIDOPHILUS/BULGARICUS CHEW TAB GT SCH ×2 (09:47→20:47)
[2017-06-12] MEDS: DOCUSATE SODIUM 100 MG/10 ML LIQUID UDC GT SCH ×2 (09:47→20:47)
[2017-06-12] MEDS: BACLOFEN 20 MG TABLET GT SCH ×4 (09:47→20:48)
[2017-06-12] MEDS: METOPROLOL TARTRATE 50 MG TABLET GT SCH ×2 (09:47→20:48)
[2017-06-12] MEDS: SIMETHICONE 40 MG/0.6 ML, 30ML BOTTLE GT SCH ×3 (09:47→16:32)
[2017-06-12] MEDS: NYSTATIN CREAM 30 GM TUBE TP SCH ×2 (09:48→20:50)
[2017-06-12] MEDS: TRIAMCINOLONE ACET 0.1% CREAM 15 GM TUBE TP SCH ×2 (09:48→20:50)
[2017-06-12] MEDS: NUTRISOURCE FIBER 4 GM PACKET GT SCH ×2 (09:48→20:48)
[2017-06-12] MEDS: SERTRALINE HCL 50 MG TABLET GT SCH (09:48)
[2017-06-12] MEDS: CALMOSEPTINE 113 GM OINTMENT TP SCH ×2 (09:48→20:49)
[2017-06-12] MEDS: HYDROGEN PEROXIDE 3% 118 ML BOTTLE TP SCH ×2 (09:48→20:49)
[2017-06-12] MEDS: ACETAMINOPHEN 650 MG/20 ML UDC- SA PATIENTS-PAIN ONLY GT PRN ×2 (09:49→16:32)
[2017-06-12] MEDS: ASCORBIC ACID 500 MG TABLET PO SCH (20:49)
[2017-06-12 20:53] VITALS: BP 113/70
[2017-06-13] MEDS: DIABETICSOURCE AC 1000ML LIQUID GT PRN (05:01)
[2017-06-13] MEDS: MULTIVIT, IRON, MIN NO. 8, FA TABLET GT SCH (05:56)
[2017-06-13] MEDS: OMEPRAZOLE 20 MG CAPSULE.DR GT SCH (05:56)
[2017-06-13 08:00] VITALS: BP 123/61
[2017-06-13] MEDS: ACIDOPHILUS/BULGARICUS CHEW TAB GT SCH ×2 (09:01→21:46)
[2017-06-13] MEDS: BACLOFEN 20 MG TABLET GT SCH ×4 (09:01→21:46)
[2017-06-13] MEDS: DOCUSATE SODIUM 100 MG/10 ML LIQUID UDC GT SCH ×2 (09:01→21:46)
[2017-06-13] MEDS: METOPROLOL TARTRATE 50 MG TABLET GT SCH ×2 (09:02→21:46)
[2017-06-13] MEDS: TRIAMCINOLONE ACET 0.1% CREAM 15 GM TUBE TP SCH ×2 (09:03→21:46)
[2017-06-13] MEDS: NYSTATIN CREAM 30 GM TUBE TP SCH ×2 (09:03→21:46)
[2017-06-13] MEDS: NUTRISOURCE FIBER 4 GM PACKET GT SCH ×2 (09:03→21:46)
[2017-06-13] MEDS: CALMOSEPTINE 113 GM OINTMENT TP SCH ×2 (09:03→21:46)
[2017-06-13] MEDS: SERTRALINE HCL 50 MG TABLET GT SCH (09:03)
[2017-06-13] MEDS: HYDROGEN PEROXIDE 3% 118 ML BOTTLE TP SCH ×2 (09:03→21:46)
[2017-06-13] MEDS: SIMETHICONE 40 MG/0.6 ML, 30ML BOTTLE GT SCH ×3 (09:03→17:36)
--- NOTE | 2017-06-13 18:00 | NUR ---
SEEN AND EXAMINED BY DR OGLESBY,NO NEW ORDERS NOTED.
[2017-06-13] MEDS: ASCORBIC ACID 500 MG TABLET PO SCH (21:46)
[2017-06-13 23:20] VITALS: BP 115/73
[2017-06-14] MEDS: OMEPRAZOLE 20 MG CAPSULE.DR GT SCH (05:06)
[2017-06-14] MEDS: DIABETICSOURCE AC 1000ML LIQUID GT PRN (06:28)
[2017-06-14 08:00] VITALS: BP 124/82
[2017-06-14] MEDS: SIMETHICONE 40 MG/0.6 ML, 30ML BOTTLE GT SCH ×3 (09:00→16:40)
[2017-06-14] MEDS: SERTRALINE HCL 50 MG TABLET GT SCH (09:00)
[2017-06-14] MEDS: ACIDOPHILUS/BULGARICUS CHEW TAB GT SCH ×2 (09:00→21:39)
[2017-06-14] MEDS: CALMOSEPTINE 113 GM OINTMENT TP SCH ×2 (09:00→21:40)
[2017-06-14] MEDS: NYSTATIN CREAM 30 GM TUBE TP SCH ×2 (09:00→21:40)
[2017-06-14] MEDS: METOPROLOL TARTRATE 50 MG TABLET GT SCH ×2 (09:00→21:40)
[2017-06-14] MEDS: DOCUSATE SODIUM 100 MG/10 ML LIQUID UDC GT SCH ×2 (09:00→21:39)
[2017-06-14] MEDS: NUTRISOURCE FIBER 4 GM PACKET GT SCH ×2 (09:00→21:40)
[2017-06-14] MEDS: BACLOFEN 20 MG TABLET GT SCH ×4 (09:00→21:39)
[2017-06-14] MEDS: TRIAMCINOLONE ACET 0.1% CREAM 15 GM TUBE TP SCH ×2 (09:00→21:40)
[2017-06-14] MEDS: HYDROGEN PEROXIDE 3% 118 ML BOTTLE TP SCH ×2 (09:00→21:40)
--- NOTE | 2017-06-14 15:31 | NUR ---
SEEN BY GLENN MORGAN.
[2017-06-14 20:00] VITALS: BP 112/72
[2017-06-14] MEDS: ASCORBIC ACID 500 MG TABLET PO SCH (21:40)
[2017-06-15] MEDS: MULTIVIT, IRON, MIN NO. 8, FA TABLET GT SCH (05:52)
[2017-06-15] MEDS: OMEPRAZOLE 20 MG CAPSULE.DR GT SCH (05:52)
[2017-06-15] MEDS: DIABETICSOURCE AC 1000ML LIQUID GT PRN ×2 (06:14→09:10)
[2017-06-15 08:00] VITALS: BP 107/74
[2017-06-15] MEDS: DOCUSATE SODIUM 100 MG/10 ML LIQUID UDC GT SCH ×2 (09:08→21:00)
[2017-06-15] MEDS: ACIDOPHILUS/BULGARICUS CHEW TAB GT SCH ×2 (09:08→21:37)
[2017-06-15] MEDS: BACLOFEN 20 MG TABLET GT SCH ×4 (09:09→21:37)
[2017-06-15] MEDS: NUTRISOURCE FIBER 4 GM PACKET GT SCH ×2 (09:09→20:58)
[2017-06-15] MEDS: SIMETHICONE 40 MG/0.6 ML, 30ML BOTTLE GT SCH ×3 (09:09→17:20)
[2017-06-15] MEDS: CALMOSEPTINE 113 GM OINTMENT TP SCH ×2 (09:09→20:58)
[2017-06-15] MEDS: SERTRALINE HCL 50 MG TABLET GT SCH (09:10)
[2017-06-15] MEDS: NYSTATIN CREAM 30 GM TUBE TP SCH ×2 (09:10→20:58)
[2017-06-15] MEDS: TRIAMCINOLONE ACET 0.1% CREAM 15 GM TUBE TP SCH ×2 (09:10→20:58)
[2017-06-15] MEDS: HYDROGEN PEROXIDE 3% 118 ML BOTTLE TP SCH ×2 (09:11→20:58)
[2017-06-15] MEDS: METOPROLOL TARTRATE 50 MG TABLET GT SCH ×2 (09:13→21:00)
[2017-06-15] MEDS: ASCORBIC ACID 500 MG TABLET PO SCH (20:58)
[2017-06-16] MEDS: DIABETICSOURCE AC 1000ML LIQUID GT PRN (01:15)
[2017-06-16] MEDS: OMEPRAZOLE 20 MG CAPSULE.DR GT SCH (05:17)
[2017-06-16] MEDS: ACIDOPHILUS/BULGARICUS CHEW TAB GT SCH ×2 (09:03→21:01)
[2017-06-16] MEDS: DOCUSATE SODIUM 100 MG/10 ML LIQUID UDC GT SCH ×2 (09:03→21:01)
[2017-06-16] MEDS: BACLOFEN 20 MG TABLET GT SCH ×4 (09:04→21:01)
[2017-06-16] MEDS: SIMETHICONE 40 MG/0.6 ML, 30ML BOTTLE GT SCH ×3 (09:05→16:59)
[2017-06-16] MEDS: METOPROLOL TARTRATE 50 MG TABLET GT SCH ×2 (09:05→21:01)
[2017-06-16] MEDS: SERTRALINE HCL 50 MG TABLET GT SCH (09:05)
[2017-06-16] MEDS: NUTRISOURCE FIBER 4 GM PACKET GT SCH ×2 (09:05→21:01)
[2017-06-16] MEDS: HYDROGEN PEROXIDE 3% 118 ML BOTTLE TP SCH ×2 (09:06→21:01)
[2017-06-16] MEDS: NYSTATIN CREAM 30 GM TUBE TP SCH ×2 (09:06→21:02)
[2017-06-16] MEDS: TRIAMCINOLONE ACET 0.1% CREAM 15 GM TUBE TP SCH ×2 (09:06→21:02)
[2017-06-16] MEDS: CALMOSEPTINE 113 GM OINTMENT TP SCH ×2 (09:06→21:01)
[2017-06-16 15:05] VITALS: BP 119/78
--- NOTE | 2017-06-16 20:36 | NUR ---
PT'S BROTHER WILL COME TOMORROW TO SIGN RENEWAL CONSENT FOR ZOLOFT.
[2017-06-16] MEDS: ASCORBIC ACID 500 MG TABLET PO SCH (21:01)
[2017-06-16 22:00] VITALS: BP 117/72
[2017-06-17] MEDS: OMEPRAZOLE 20 MG CAPSULE.DR GT SCH (05:08)
[2017-06-17] MEDS: MULTIVIT, IRON, MIN NO. 8, FA TABLET GT SCH (05:36)
[2017-06-17 07:31] VITALS: BP 111/72
[2017-06-17] MEDS: DOCUSATE SODIUM 100 MG/10 ML LIQUID UDC GT SCH ×2 (09:06→21:43)
[2017-06-17] MEDS: BACLOFEN 20 MG TABLET GT SCH ×4 (09:07→21:43)
[2017-06-17] MEDS: ACIDOPHILUS/BULGARICUS CHEW TAB GT SCH ×2 (09:07→21:43)
[2017-06-17] MEDS: NUTRISOURCE FIBER 4 GM PACKET GT SCH ×2 (09:08→21:43)
[2017-06-17] MEDS: METOPROLOL TARTRATE 50 MG TABLET GT SCH ×2 (09:08→21:43)
[2017-06-17] MEDS: SIMETHICONE 40 MG/0.6 ML, 30ML BOTTLE GT SCH ×3 (09:08→17:12)
[2017-06-17] MEDS: SERTRALINE HCL 50 MG TABLET GT SCH (09:08)
[2017-06-17] MEDS: CALMOSEPTINE 113 GM OINTMENT TP SCH ×2 (09:09→21:43)
[2017-06-17] MEDS: NYSTATIN CREAM 30 GM TUBE TP SCH ×2 (09:20→21:43)
[2017-06-17] MEDS: TRIAMCINOLONE ACET 0.1% CREAM 15 GM TUBE TP SCH ×2 (09:20→21:43)
[2017-06-17] MEDS: HYDROGEN PEROXIDE 3% 118 ML BOTTLE TP SCH ×2 (11:00→21:43)
[2017-06-17] MEDS: ASCORBIC ACID 500 MG TABLET PO SCH (21:43)
[2017-06-17 23:26] VITALS: BP 114/78
[2017-06-18] MEDS: OMEPRAZOLE 20 MG CAPSULE.DR GT SCH (06:24)
[2017-06-18 08:00] VITALS: BP 117/73
[2017-06-18] MEDS: NUTRISOURCE FIBER 4 GM PACKET GT SCH ×2 (08:29→20:37)
[2017-06-18] MEDS: METOPROLOL TARTRATE 50 MG TABLET GT SCH ×2 (08:29→20:37)
[2017-06-18] MEDS: SERTRALINE HCL 50 MG TABLET GT SCH (08:29)
[2017-06-18] MEDS: ACIDOPHILUS/BULGARICUS CHEW TAB GT SCH ×2 (08:29→20:37)
[2017-06-18] MEDS: DOCUSATE SODIUM 100 MG/10 ML LIQUID UDC GT SCH ×2 (08:29→20:37)
[2017-06-18] MEDS: CALMOSEPTINE 113 GM OINTMENT TP SCH ×2 (08:29→20:37)
[2017-06-18] MEDS: HYDROGEN PEROXIDE 3% 118 ML BOTTLE TP SCH ×2 (08:29→20:38)
[2017-06-18] MEDS: SIMETHICONE 40 MG/0.6 ML, 30ML BOTTLE GT SCH ×3 (08:29→17:05)
[2017-06-18] MEDS: BACLOFEN 20 MG TABLET GT SCH ×4 (08:29→20:37)
[2017-06-18] MEDS: TRIAMCINOLONE ACET 0.1% CREAM 15 GM TUBE TP SCH ×2 (08:29→20:38)
[2017-06-18] MEDS: NYSTATIN CREAM 30 GM TUBE TP SCH ×2 (08:30→20:38)
[2017-06-18 20:08] VITALS: BP 120/82
[2017-06-18] MEDS: ASCORBIC ACID 500 MG TABLET PO SCH (20:37)
[2017-06-19] MEDS: MULTIVIT, IRON, MIN NO. 8, FA TABLET GT SCH (05:52)
[2017-06-19] MEDS: OMEPRAZOLE 20 MG CAPSULE.DR GT SCH (05:52)
[2017-06-19 08:00] VITALS: BP 113/82
[2017-06-19] MEDS: METOPROLOL TARTRATE 50 MG TABLET GT SCH ×2 (08:37→20:37)
[2017-06-19] MEDS: HYDROGEN PEROXIDE 3% 118 ML BOTTLE TP SCH ×2 (08:37→20:38)
[2017-06-19] MEDS: SIMETHICONE 40 MG/0.6 ML, 30ML BOTTLE GT SCH ×3 (08:37→17:13)
[2017-06-19] MEDS: DOCUSATE SODIUM 100 MG/10 ML LIQUID UDC GT SCH ×2 (08:37→20:37)
[2017-06-19] MEDS: NUTRISOURCE FIBER 4 GM PACKET GT SCH ×2 (08:37→20:38)
[2017-06-19] MEDS: CALMOSEPTINE 113 GM OINTMENT TP SCH ×2 (08:37→20:38)
[2017-06-19] MEDS: TRIAMCINOLONE ACET 0.1% CREAM 15 GM TUBE TP SCH ×2 (08:37→20:39)
[2017-06-19] MEDS: BACLOFEN 20 MG TABLET GT SCH ×4 (08:37→20:37)
[2017-06-19] MEDS: NYSTATIN CREAM 30 GM TUBE TP SCH ×2 (08:37→20:39)
[2017-06-19] MEDS: SERTRALINE HCL 50 MG TABLET GT SCH (08:37)
[2017-06-19] MEDS: ACIDOPHILUS/BULGARICUS CHEW TAB GT SCH ×2 (08:37→20:37)
[2017-06-19 20:00] VITALS: BP 122/82
[2017-06-19] MEDS: ASCORBIC ACID 500 MG TABLET PO SCH (20:38)
[2017-06-20] MEDS: OMEPRAZOLE 20 MG CAPSULE.DR GT SCH (05:11)
[2017-06-20 08:00] VITALS: BP 126/70
[2017-06-20] MEDS: SIMETHICONE 40 MG/0.6 ML, 30ML BOTTLE GT SCH ×3 (08:57→17:06)
[2017-06-20] MEDS: SERTRALINE HCL 50 MG TABLET GT SCH (08:57)
[2017-06-20] MEDS: TRIAMCINOLONE ACET 0.1% CREAM 15 GM TUBE TP SCH ×2 (08:57→21:07)
[2017-06-20] MEDS: DOCUSATE SODIUM 100 MG/10 ML LIQUID UDC GT SCH ×2 (08:57→21:06)
[2017-06-20] MEDS: HYDROGEN PEROXIDE 3% 118 ML BOTTLE TP SCH ×2 (08:57→21:07)
[2017-06-20] MEDS: METOPROLOL TARTRATE 50 MG TABLET GT SCH ×2 (08:57→21:06)
[2017-06-20] MEDS: BACLOFEN 20 MG TABLET GT SCH ×4 (08:57→21:06)
[2017-06-20] MEDS: NUTRISOURCE FIBER 4 GM PACKET GT SCH ×2 (08:57→21:06)
[2017-06-20] MEDS: NYSTATIN CREAM 30 GM TUBE TP SCH ×2 (08:57→21:07)
[2017-06-20] MEDS: ACIDOPHILUS/BULGARICUS CHEW TAB GT SCH ×2 (08:57→21:06)
[2017-06-20] MEDS: CALMOSEPTINE 113 GM OINTMENT TP SCH ×2 (08:57→21:07)
--- NOTE | 2017-06-20 18:00 | NUR ---
SEEN AND EXAMINED BY DR OGLESBY,NO NEW ORDERS NOTED.
[2017-06-20 20:00] VITALS: BP 121/78
[2017-06-20] MEDS: ASCORBIC ACID 500 MG TABLET PO SCH (21:06)
[2017-06-21] MEDS: OMEPRAZOLE 20 MG CAPSULE.DR GT SCH (05:52)
[2017-06-21] MEDS: MULTIVIT, IRON, MIN NO. 8, FA TABLET GT SCH (05:52)
[2017-06-21] MEDS: DOCUSATE SODIUM 100 MG/10 ML LIQUID UDC GT SCH ×2 (08:12→20:06)
[2017-06-21] MEDS: SIMETHICONE 40 MG/0.6 ML, 30ML BOTTLE GT SCH ×3 (08:12→16:39)
[2017-06-21] MEDS: ACIDOPHILUS/BULGARICUS CHEW TAB GT SCH ×2 (08:12→20:07)
[2017-06-21] MEDS: NUTRISOURCE FIBER 4 GM PACKET GT SCH ×2 (08:12→20:08)
[2017-06-21] MEDS: SERTRALINE HCL 50 MG TABLET GT SCH (08:12)
[2017-06-21] MEDS: BACLOFEN 20 MG TABLET GT SCH ×4 (08:12→20:07)
[2017-06-21] MEDS: METOPROLOL TARTRATE 50 MG TABLET GT SCH ×2 (08:12→20:07)
[2017-06-21] MEDS: CALMOSEPTINE 113 GM OINTMENT TP SCH ×2 (08:13→20:08)
[2017-06-21] MEDS: HYDROGEN PEROXIDE 3% 118 ML BOTTLE TP SCH ×2 (08:13→20:08)
[2017-06-21] MEDS: NYSTATIN CREAM 30 GM TUBE TP SCH ×2 (08:14→20:08)
[2017-06-21] MEDS: TRIAMCINOLONE ACET 0.1% CREAM 15 GM TUBE TP SCH ×2 (08:14→20:08)
[2017-06-21 11:51] VITALS: BP 121/70
[2017-06-21] MEDS: ACETAMINOPHEN 650 MG/20 ML UDC- SA PATIENTS-PAIN ONLY GT PRN (14:28)
[2017-06-21] MEDS: DIABETICSOURCE AC 1000ML LIQUID GT PRN (16:38)
[2017-06-21 20:04] VITALS: BP 129/83
[2017-06-21] MEDS: ASCORBIC ACID 500 MG TABLET PO SCH (20:08)
[2017-06-22] MEDS: OMEPRAZOLE 20 MG CAPSULE.DR GT SCH (05:15)
[2017-06-22] MEDS: DOCUSATE SODIUM 100 MG/10 ML LIQUID UDC GT SCH ×2 (08:42→20:38)
[2017-06-22] MEDS: ACIDOPHILUS/BULGARICUS CHEW TAB GT SCH ×2 (08:42→20:38)
[2017-06-22] MEDS: BACLOFEN 20 MG TABLET GT SCH ×4 (08:42→20:38)
[2017-06-22] MEDS: METOPROLOL TARTRATE 50 MG TABLET GT SCH ×2 (08:43→20:38)
[2017-06-22] MEDS: TRIAMCINOLONE ACET 0.1% CREAM 15 GM TUBE TP SCH ×2 (08:44→20:39)
[2017-06-22] MEDS: NUTRISOURCE FIBER 4 GM PACKET GT SCH ×2 (08:44→20:39)
[2017-06-22] MEDS: HYDROGEN PEROXIDE 3% 118 ML BOTTLE TP SCH ×2 (08:44→20:39)
[2017-06-22] MEDS: SIMETHICONE 40 MG/0.6 ML, 30ML BOTTLE GT SCH ×3 (08:44→16:34)
[2017-06-22] MEDS: CALMOSEPTINE 113 GM OINTMENT TP SCH ×2 (08:44→20:39)
[2017-06-22] MEDS: NYSTATIN CREAM 30 GM TUBE TP SCH ×2 (08:44→20:39)
[2017-06-22] MEDS: SERTRALINE HCL 50 MG TABLET GT SCH (08:44)
[2017-06-22 11:40] VITALS: BP 116/71
[2017-06-22 20:17] VITALS: BP 117/77
[2017-06-22] MEDS: ASCORBIC ACID 500 MG TABLET PO SCH (20:39)
[2017-06-23] MEDS: OMEPRAZOLE 20 MG CAPSULE.DR GT SCH (05:11)
[2017-06-23] MEDS: DIABETICSOURCE AC 1000ML LIQUID GT PRN (05:37)
[2017-06-23] MEDS: MULTIVIT, IRON, MIN NO. 8, FA TABLET GT SCH (05:37)
[2017-06-23] MEDS: TRIAMCINOLONE ACET 0.1% CREAM 15 GM TUBE TP SCH ×2 (08:17→21:06)
[2017-06-23] MEDS: SERTRALINE HCL 50 MG TABLET GT SCH (08:17)
[2017-06-23] MEDS: SIMETHICONE 40 MG/0.6 ML, 30ML BOTTLE GT SCH ×3 (08:17→16:46)
[2017-06-23] MEDS: CALMOSEPTINE 113 GM OINTMENT TP SCH ×2 (08:17→21:05)
[2017-06-23] MEDS: METOPROLOL TARTRATE 50 MG TABLET GT SCH ×2 (08:17→21:05)
[2017-06-23] MEDS: DOCUSATE SODIUM 100 MG/10 ML LIQUID UDC GT SCH ×2 (08:17→21:04)
[2017-06-23] MEDS: BACLOFEN 20 MG TABLET GT SCH ×4 (08:17→21:04)
[2017-06-23] MEDS: HYDROGEN PEROXIDE 3% 118 ML BOTTLE TP SCH ×2 (08:17→21:05)
[2017-06-23] MEDS: NUTRISOURCE FIBER 4 GM PACKET GT SCH ×2 (08:17→21:05)
[2017-06-23] MEDS: ACIDOPHILUS/BULGARICUS CHEW TAB GT SCH ×2 (08:17→21:04)
[2017-06-23] MEDS: NYSTATIN CREAM 30 GM TUBE TP SCH ×2 (08:17→21:06)
[2017-06-23 11:30] VITALS: BP 105/61
[2017-06-23 20:00] VITALS: BP 132/83
[2017-06-23] MEDS: ASCORBIC ACID 500 MG TABLET PO SCH (21:05)
[2017-06-24] MEDS: OMEPRAZOLE 20 MG CAPSULE.DR GT SCH (05:55)
[2017-06-24] MEDS: DOCUSATE SODIUM 100 MG/10 ML LIQUID UDC GT SCH ×2 (08:22→21:18)
[2017-06-24] MEDS: NYSTATIN CREAM 30 GM TUBE TP SCH (08:23)
[2017-06-24] MEDS: NUTRISOURCE FIBER 4 GM PACKET GT SCH ×2 (08:23→21:19)
[2017-06-24] MEDS: ACIDOPHILUS/BULGARICUS CHEW TAB GT SCH ×2 (08:23→21:18)
[2017-06-24] MEDS: METOPROLOL TARTRATE 50 MG TABLET GT SCH ×2 (08:23→21:19)
[2017-06-24] MEDS: SERTRALINE HCL 50 MG TABLET GT SCH (08:23)
[2017-06-24] MEDS: HYDROGEN PEROXIDE 3% 118 ML BOTTLE TP SCH ×2 (08:23→21:19)
[2017-06-24] MEDS: TRIAMCINOLONE ACET 0.1% CREAM 15 GM TUBE TP SCH (08:23)
[2017-06-24] MEDS: BACLOFEN 20 MG TABLET GT SCH ×4 (08:23→21:18)
[2017-06-24] MEDS: CALMOSEPTINE 113 GM OINTMENT TP SCH ×2 (08:23→21:19)
[2017-06-24] MEDS: SIMETHICONE 40 MG/0.6 ML, 30ML BOTTLE GT SCH ×3 (08:23→16:09)
[2017-06-24 20:47] VITALS: BP 105/68
[2017-06-24] MEDS: ASCORBIC ACID 500 MG TABLET PO SCH (21:19)
[2017-06-25] MEDS: OMEPRAZOLE 20 MG CAPSULE.DR GT SCH (06:05)
[2017-06-25] MEDS: MULTIVIT, IRON, MIN NO. 8, FA TABLET GT SCH (06:06)
[2017-06-25] MEDS: DIABETICSOURCE AC 1000ML LIQUID GT PRN (06:49)
[2017-06-25 08:09] VITALS: BP 124/88
[2017-06-25] MEDS: SERTRALINE HCL 50 MG TABLET GT SCH (09:00)
[2017-06-25] MEDS: HYDROGEN PEROXIDE 3% 118 ML BOTTLE TP SCH ×2 (09:00→21:13)
[2017-06-25] MEDS: SIMETHICONE 40 MG/0.6 ML, 30ML BOTTLE GT SCH ×3 (09:00→16:33)
[2017-06-25] MEDS: NUTRISOURCE FIBER 4 GM PACKET GT SCH ×2 (09:00→21:13)
[2017-06-25] MEDS: DOCUSATE SODIUM 100 MG/10 ML LIQUID UDC GT SCH ×2 (09:00→21:12)
[2017-06-25] MEDS: CALMOSEPTINE 113 GM OINTMENT TP SCH ×2 (09:00→21:13)
[2017-06-25] MEDS: METOPROLOL TARTRATE 50 MG TABLET GT SCH ×2 (09:00→21:13)
[2017-06-25] MEDS: BACLOFEN 20 MG TABLET GT SCH ×4 (09:00→21:12)
[2017-06-25] MEDS: ACIDOPHILUS/BULGARICUS CHEW TAB GT SCH ×2 (09:00→21:12)
--- NOTE | 2017-06-25 12:06 | NUR ---
Seen by Dalia CARMICHAEL with no new order.
[2017-06-25] MEDS: ASCORBIC ACID 500 MG TABLET PO SCH (21:13)
[2017-06-25 21:58] VITALS: BP 109/66
[2017-06-26] MEDS: OMEPRAZOLE 20 MG CAPSULE.DR GT SCH (06:07)
[2017-06-26] MEDS: DIABETICSOURCE AC 1000ML LIQUID GT PRN (06:48)
[2017-06-26 08:06] VITALS: BP 99/62
[2017-06-26] MEDS: BACLOFEN 20 MG TABLET GT SCH ×4 (08:36→20:53)
[2017-06-26] MEDS: DOCUSATE SODIUM 100 MG/10 ML LIQUID UDC GT SCH ×2 (08:36→20:52)
[2017-06-26] MEDS: ACIDOPHILUS/BULGARICUS CHEW TAB GT SCH ×2 (08:36→20:53)
[2017-06-26] MEDS: SIMETHICONE 40 MG/0.6 ML, 30ML BOTTLE GT SCH ×3 (08:37→16:34)
[2017-06-26] MEDS: HYDROGEN PEROXIDE 3% 118 ML BOTTLE TP SCH ×2 (08:37→20:56)
[2017-06-26] MEDS: NUTRISOURCE FIBER 4 GM PACKET GT SCH ×2 (08:37→20:54)
[2017-06-26] MEDS: SERTRALINE HCL 50 MG TABLET GT SCH (08:37)
[2017-06-26] MEDS: METOPROLOL TARTRATE 50 MG TABLET GT SCH ×2 (08:37→20:55)
[2017-06-26] MEDS: CALMOSEPTINE 113 GM OINTMENT TP SCH ×2 (08:37→20:56)
--- NOTE | 2017-06-26 13:10 | NUR ---
Seen and examined by Wilma,no new orders.
[2017-06-26] MEDS: ASCORBIC ACID 500 MG TABLET PO SCH (20:55)
[2017-06-26 22:33] VITALS: BP 117/77
[2017-06-27] MEDS: DIABETICSOURCE AC 1000ML LIQUID GT PRN (00:30)
[2017-06-27] MEDS: OMEPRAZOLE 20 MG CAPSULE.DR GT SCH (05:26)
[2017-06-27] MEDS: MULTIVIT, IRON, MIN NO. 8, FA TABLET GT SCH (05:35)
[2017-06-27 08:00] VITALS: BP 112/79
[2017-06-27] MEDS: DOCUSATE SODIUM 100 MG/10 ML LIQUID UDC GT SCH ×2 (09:02→21:09)
[2017-06-27] MEDS: BACLOFEN 20 MG TABLET GT SCH ×4 (09:02→21:09)
[2017-06-27] MEDS: CALMOSEPTINE 113 GM OINTMENT TP SCH ×2 (09:02→21:11)
[2017-06-27] MEDS: SIMETHICONE 40 MG/0.6 ML, 30ML BOTTLE GT SCH ×3 (09:02→16:50)
[2017-06-27] MEDS: SERTRALINE HCL 50 MG TABLET GT SCH (09:02)
[2017-06-27] MEDS: METOPROLOL TARTRATE 50 MG TABLET GT SCH ×2 (09:02→21:11)
[2017-06-27] MEDS: HYDROGEN PEROXIDE 3% 118 ML BOTTLE TP SCH ×2 (09:02→21:11)
[2017-06-27] MEDS: NUTRISOURCE FIBER 4 GM PACKET GT SCH ×2 (09:02→21:11)
[2017-06-27] MEDS: ACIDOPHILUS/BULGARICUS CHEW TAB GT SCH ×2 (09:02→21:09)
[2017-06-27] MEDS: ASCORBIC ACID 500 MG TABLET PO SCH (21:11)
[2017-06-27 23:11] VITALS: BP 127/83
[2017-06-28] MEDS: DIABETICSOURCE AC 1000ML LIQUID GT PRN (02:48)
[2017-06-28] MEDS: OMEPRAZOLE 20 MG CAPSULE.DR GT SCH (05:47)
[2017-06-28 08:00] VITALS: BP 104/66
[2017-06-28] MEDS: SERTRALINE HCL 50 MG TABLET GT SCH (09:48)
[2017-06-28] MEDS: ACIDOPHILUS/BULGARICUS CHEW TAB GT SCH ×2 (09:48→20:54)
[2017-06-28] MEDS: CALMOSEPTINE 113 GM OINTMENT TP SCH ×2 (09:48→20:54)
[2017-06-28] MEDS: NUTRISOURCE FIBER 4 GM PACKET GT SCH ×2 (09:48→20:54)
[2017-06-28] MEDS: SIMETHICONE 40 MG/0.6 ML, 30ML BOTTLE GT SCH ×3 (09:48→17:03)
[2017-06-28] MEDS: DOCUSATE SODIUM 100 MG/10 ML LIQUID UDC GT SCH ×2 (09:48→20:54)
[2017-06-28] MEDS: HYDROGEN PEROXIDE 3% 118 ML BOTTLE TP SCH ×2 (09:48→20:55)
[2017-06-28] MEDS: BACLOFEN 20 MG TABLET GT SCH ×4 (09:48→20:54)
[2017-06-28] MEDS: METOPROLOL TARTRATE 50 MG TABLET GT SCH ×2 (09:48→20:54)
--- NOTE | 2017-06-28 11:50 | NUR ---
SEEN BY GLENN MORGAN.
[2017-06-28] MEDS: ASCORBIC ACID 500 MG TABLET PO SCH (20:54)
[2017-06-28 23:04] VITALS: BP 118/70
[2017-06-29] MEDS: DIABETICSOURCE AC 1000ML LIQUID GT PRN (01:36)
[2017-06-29] MEDS: OMEPRAZOLE 20 MG CAPSULE.DR GT SCH (05:15)
[2017-06-29] MEDS: MULTIVIT, IRON, MIN NO. 8, FA TABLET GT SCH (05:40)
[2017-06-29 08:05] VITALS: BP 101/65
[2017-06-29] MEDS: BACLOFEN 20 MG TABLET GT SCH ×4 (08:23→21:41)
[2017-06-29] MEDS: DOCUSATE SODIUM 100 MG/10 ML LIQUID UDC GT SCH ×2 (08:23→21:41)
[2017-06-29] MEDS: ACIDOPHILUS/BULGARICUS CHEW TAB GT SCH ×2 (08:23→21:41)
[2017-06-29] MEDS: SIMETHICONE 40 MG/0.6 ML, 30ML BOTTLE GT SCH ×3 (08:24→16:05)
[2017-06-29] MEDS: METOPROLOL TARTRATE 50 MG TABLET GT SCH ×2 (08:24→21:42)
[2017-06-29] MEDS: HYDROGEN PEROXIDE 3% 118 ML BOTTLE TP SCH ×2 (08:24→21:42)
[2017-06-29] MEDS: CALMOSEPTINE 113 GM OINTMENT TP SCH ×2 (08:24→21:42)
[2017-06-29] MEDS: NUTRISOURCE FIBER 4 GM PACKET GT SCH ×2 (08:24→21:42)
[2017-06-29] MEDS: SERTRALINE HCL 50 MG TABLET GT SCH (08:24)
[2017-06-29 20:56] VITALS: BP 118/77
[2017-06-29] MEDS: ASCORBIC ACID 500 MG TABLET PO SCH (21:42)
[2017-06-30] MEDS: OMEPRAZOLE 20 MG CAPSULE.DR GT SCH (06:58)
[2017-06-30] MEDS: DOCUSATE SODIUM 100 MG/10 ML LIQUID UDC GT SCH ×2 (09:16→21:12)
[2017-06-30] MEDS: ACIDOPHILUS/BULGARICUS CHEW TAB GT SCH ×2 (09:16→21:12)
[2017-06-30] MEDS: BACLOFEN 20 MG TABLET GT SCH ×4 (09:16→21:12)
[2017-06-30] MEDS: SERTRALINE HCL 50 MG TABLET GT SCH (09:17)
[2017-06-30] MEDS: NUTRISOURCE FIBER 4 GM PACKET GT SCH ×2 (09:17→21:12)
[2017-06-30] MEDS: CALMOSEPTINE 113 GM OINTMENT TP SCH ×2 (09:17→21:12)
[2017-06-30] MEDS: SIMETHICONE 40 MG/0.6 ML, 30ML BOTTLE GT SCH ×3 (09:17→17:50)
[2017-06-30] MEDS: METOPROLOL TARTRATE 50 MG TABLET GT SCH ×2 (09:17→21:12)
[2017-06-30] MEDS: HYDROGEN PEROXIDE 3% 118 ML BOTTLE TP SCH ×2 (09:18→21:12)
[2017-06-30 11:49] VITALS: BP 124/74
[2017-06-30 20:26] VITALS: BP 128/85
[2017-06-30] MEDS: ASCORBIC ACID 500 MG TABLET PO SCH (21:12)
[2017-07-01] MEDS: MULTIVIT, IRON, MIN NO. 8, FA TABLET GT SCH (06:23)
[2017-07-01] MEDS: OMEPRAZOLE 20 MG CAPSULE.DR GT SCH (06:23)
[2017-07-01 08:00] VITALS: BP 110/75
[2017-07-01] MEDS: DOCUSATE SODIUM 100 MG/10 ML LIQUID UDC GT SCH ×2 (08:18→21:58)
[2017-07-01] MEDS: BACLOFEN 20 MG TABLET GT SCH ×4 (08:19→21:58)
[2017-07-01] MEDS: SIMETHICONE 40 MG/0.6 ML, 30ML BOTTLE GT SCH ×3 (08:19→17:36)
[2017-07-01] MEDS: SERTRALINE HCL 50 MG TABLET GT SCH (08:19)
[2017-07-01] MEDS: ACIDOPHILUS/BULGARICUS CHEW TAB GT SCH ×2 (08:19→21:58)
[2017-07-01] MEDS: HYDROGEN PEROXIDE 3% 118 ML BOTTLE TP SCH ×2 (08:19→21:58)
[2017-07-01] MEDS: NUTRISOURCE FIBER 4 GM PACKET GT SCH ×2 (08:19→21:58)
[2017-07-01] MEDS: CALMOSEPTINE 113 GM OINTMENT TP SCH ×2 (08:19→21:58)
[2017-07-01] MEDS: METOPROLOL TARTRATE 50 MG TABLET GT SCH ×2 (08:19→21:58)
[2017-07-01] MEDS: ACETAMINOPHEN 650 MG/20 ML UDC- SA PATIENTS-PAIN ONLY GT PRN ×2 (10:19→11:22)
[2017-07-01 20:17] VITALS: BP 117/74
[2017-07-01] MEDS: ASCORBIC ACID 500 MG TABLET PO SCH (21:58)
[2017-07-02] MEDS: OMEPRAZOLE 20 MG CAPSULE.DR GT SCH (07:00)
[2017-07-02 08:00] VITALS: BP 117/71
[2017-07-02] MEDS: DOCUSATE SODIUM 100 MG/10 ML LIQUID UDC GT SCH ×2 (08:46→21:58)
[2017-07-02] MEDS: ACIDOPHILUS/BULGARICUS CHEW TAB GT SCH ×2 (08:46→21:58)
[2017-07-02] MEDS: METOPROLOL TARTRATE 50 MG TABLET GT SCH ×2 (08:46→21:58)
[2017-07-02] MEDS: BACLOFEN 20 MG TABLET GT SCH ×4 (08:46→21:58)
[2017-07-02] MEDS: NUTRISOURCE FIBER 4 GM PACKET GT SCH ×2 (08:46→21:58)
[2017-07-02] MEDS: SERTRALINE HCL 50 MG TABLET GT SCH (08:46)
[2017-07-02] MEDS: SIMETHICONE 40 MG/0.6 ML, 30ML BOTTLE GT SCH ×3 (08:46→16:33)
[2017-07-02] MEDS: HYDROGEN PEROXIDE 3% 118 ML BOTTLE TP SCH ×2 (08:47→21:58)
[2017-07-02] MEDS: CALMOSEPTINE 113 GM OINTMENT TP SCH ×2 (08:47→21:58)
--- NOTE | 2017-07-02 15:48 | NUR ---
SEEN BY GLENN MORGAN.
--- NOTE | 2017-07-02 16:06 | NUR ---
SEEN Y ABIEL MORGAN.
[2017-07-02 20:11] VITALS: BP 114/79
[2017-07-02] MEDS: ASCORBIC ACID 500 MG TABLET PO SCH (21:58)
[2017-07-03] MEDS: MULTIVIT, IRON, MIN NO. 8, FA TABLET GT SCH (06:43)
[2017-07-03] MEDS: OMEPRAZOLE 20 MG CAPSULE.DR GT SCH (06:43)
[2017-07-03 08:00] VITALS: BP 114/73
[2017-07-03] MEDS: MEDROXYPROGESTERONE ACET IM SCH (09:00)
[2017-07-03] MEDS: ACIDOPHILUS/BULGARICUS CHEW TAB GT SCH ×2 (09:13→21:50)
[2017-07-03] MEDS: DOCUSATE SODIUM 100 MG/10 ML LIQUID UDC GT SCH ×2 (09:13→21:50)
[2017-07-03] MEDS: BACLOFEN 20 MG TABLET GT SCH ×4 (09:13→21:50)
[2017-07-03] MEDS: SIMETHICONE 40 MG/0.6 ML, 30ML BOTTLE GT SCH ×3 (09:20→17:25)
[2017-07-03] MEDS: METOPROLOL TARTRATE 50 MG TABLET GT SCH ×2 (09:20→21:50)
[2017-07-03] MEDS: HYDROGEN PEROXIDE 3% 118 ML BOTTLE TP SCH ×2 (09:21→21:50)
[2017-07-03] MEDS: SERTRALINE HCL 50 MG TABLET GT SCH (09:21)
[2017-07-03] MEDS: NUTRISOURCE FIBER 4 GM PACKET GT SCH ×2 (09:21→21:50)
[2017-07-03] MEDS: CALMOSEPTINE 113 GM OINTMENT TP SCH ×2 (09:21→21:50)
[2017-07-03] MEDS: ACETAMINOPHEN 650 MG/20 ML UDC- SA PATIENTS-PAIN ONLY GT PRN (12:37)
--- NOTE | 2017-07-03 14:47 | NUR ---
Seen by Wilma CARMICHAEL ,no new orders noted.
[2017-07-03 20:00] VITALS: BP 106/65
[2017-07-03] MEDS: ASCORBIC ACID 500 MG TABLET PO SCH (21:50)
[2017-07-04] MEDS: MEDROXYPROGESTERONE ACET IM SCH (03:19)
[2017-07-04] MEDS: OMEPRAZOLE 20 MG CAPSULE.DR GT SCH (05:15)
[2017-07-04] MEDS: DIABETICSOURCE AC 1000ML LIQUID GT PRN (06:30)
[2017-07-04 08:00] VITALS: BP 113/74
[2017-07-04] MEDS: DOCUSATE SODIUM 100 MG/10 ML LIQUID UDC GT SCH ×2 (08:51→21:41)
[2017-07-04] MEDS: ACIDOPHILUS/BULGARICUS CHEW TAB GT SCH ×2 (08:52→21:41)
[2017-07-04] MEDS: BACLOFEN 20 MG TABLET GT SCH ×4 (08:52→21:41)
[2017-07-04] MEDS: NUTRISOURCE FIBER 4 GM PACKET GT SCH ×2 (08:53→21:42)
[2017-07-04] MEDS: SIMETHICONE 40 MG/0.6 ML, 30ML BOTTLE GT SCH ×3 (08:53→17:36)
[2017-07-04] MEDS: CALMOSEPTINE 113 GM OINTMENT TP SCH ×2 (08:53→21:42)
[2017-07-04] MEDS: HYDROGEN PEROXIDE 3% 118 ML BOTTLE TP SCH ×2 (08:53→21:42)
[2017-07-04] MEDS: METOPROLOL TARTRATE 50 MG TABLET GT SCH ×2 (08:53→21:42)
[2017-07-04] MEDS: SERTRALINE HCL 50 MG TABLET GT SCH (08:53)
--- NOTE | 2017-07-04 19:04 | NUR ---
SEEN BY DR. RENY MORGAN.
[2017-07-04 20:00] VITALS: BP 116/78
[2017-07-04] MEDS: ASCORBIC ACID 500 MG TABLET PO SCH (21:42)
[2017-07-05] MEDS: OMEPRAZOLE 20 MG CAPSULE.DR GT SCH (05:06)
[2017-07-05] MEDS: DIABETICSOURCE AC 1000ML LIQUID GT PRN (05:07)
[2017-07-05] MEDS: MULTIVIT, IRON, MIN NO. 8, FA TABLET GT SCH (05:48)
[2017-07-05 08:00] VITALS: BP 106/68
[2017-07-05] MEDS: DOCUSATE SODIUM 100 MG/10 ML LIQUID UDC GT SCH ×2 (08:23→21:51)
[2017-07-05] MEDS: BACLOFEN 20 MG TABLET GT SCH ×4 (08:23→21:51)
[2017-07-05] MEDS: ACIDOPHILUS/BULGARICUS CHEW TAB GT SCH ×2 (08:23→21:51)
[2017-07-05] MEDS: NUTRISOURCE FIBER 4 GM PACKET GT SCH ×2 (08:24→21:52)
[2017-07-05] MEDS: SIMETHICONE 40 MG/0.6 ML, 30ML BOTTLE GT SCH ×3 (08:24→16:30)
[2017-07-05] MEDS: SERTRALINE HCL 50 MG TABLET GT SCH (08:24)
[2017-07-05] MEDS: METOPROLOL TARTRATE 50 MG TABLET GT SCH ×2 (08:24→21:52)
[2017-07-05] MEDS: CALMOSEPTINE 113 GM OINTMENT TP SCH ×2 (08:25→21:52)
[2017-07-05] MEDS: HYDROGEN PEROXIDE 3% 118 ML BOTTLE TP SCH ×2 (08:25→21:52)
[2017-07-05 20:00] VITALS: BP 121/80
[2017-07-05] MEDS: ASCORBIC ACID 500 MG TABLET PO SCH (21:52)
[2017-07-06] MEDS: DIABETICSOURCE AC 1000ML LIQUID GT PRN (04:15)
[2017-07-06] MEDS: OMEPRAZOLE 20 MG CAPSULE.DR GT SCH (06:17)
[2017-07-06 08:00] VITALS: BP 119/70
[2017-07-06] MEDS: DOCUSATE SODIUM 100 MG/10 ML LIQUID UDC GT SCH ×2 (08:30→21:09)
[2017-07-06] MEDS: CALMOSEPTINE 113 GM OINTMENT TP SCH ×2 (08:31→21:10)
[2017-07-06] MEDS: BACLOFEN 20 MG TABLET GT SCH ×4 (08:31→21:09)
[2017-07-06] MEDS: HYDROGEN PEROXIDE 3% 118 ML BOTTLE TP SCH ×2 (08:31→21:10)
[2017-07-06] MEDS: SERTRALINE HCL 50 MG TABLET GT SCH (08:31)
[2017-07-06] MEDS: METOPROLOL TARTRATE 50 MG TABLET GT SCH ×2 (08:31→21:10)
[2017-07-06] MEDS: ACIDOPHILUS/BULGARICUS CHEW TAB GT SCH ×2 (08:31→21:09)
[2017-07-06] MEDS: SIMETHICONE 40 MG/0.6 ML, 30ML BOTTLE GT SCH ×3 (08:31→16:07)
[2017-07-06] MEDS: NUTRISOURCE FIBER 4 GM PACKET GT SCH ×2 (08:31→21:10)
[2017-07-06] MEDS: ASCORBIC ACID 500 MG TABLET PO SCH (21:10)
[2017-07-06 22:00] VITALS: BP 108/73
[2017-07-07] MEDS: DIABETICSOURCE AC 1000ML LIQUID GT PRN (02:50)
[2017-07-07] MEDS: MULTIVIT, IRON, MIN NO. 8, FA TABLET GT SCH (06:34)
[2017-07-07] MEDS: OMEPRAZOLE 20 MG CAPSULE.DR GT SCH (06:34)
[2017-07-07 08:00] VITALS: BP 155/85
[2017-07-07] MEDS: BACLOFEN 20 MG TABLET GT SCH ×4 (08:41→20:59)
[2017-07-07] MEDS: ACIDOPHILUS/BULGARICUS CHEW TAB GT SCH ×2 (08:41→20:59)
[2017-07-07] MEDS: DOCUSATE SODIUM 100 MG/10 ML LIQUID UDC GT SCH ×2 (08:41→20:59)
[2017-07-07] MEDS: SIMETHICONE 40 MG/0.6 ML, 30ML BOTTLE GT SCH ×3 (08:46→16:34)
[2017-07-07] MEDS: METOPROLOL TARTRATE 50 MG TABLET GT SCH ×2 (08:46→21:00)
[2017-07-07] MEDS: CALMOSEPTINE 113 GM OINTMENT TP SCH ×2 (08:47→21:00)
[2017-07-07] MEDS: HYDROGEN PEROXIDE 3% 118 ML BOTTLE TP SCH ×2 (08:47→21:00)
[2017-07-07] MEDS: SERTRALINE HCL 50 MG TABLET GT SCH (08:47)
[2017-07-07] MEDS: NUTRISOURCE FIBER 4 GM PACKET GT SCH ×2 (08:47→21:00)
[2017-07-07] MEDS: ASCORBIC ACID 500 MG TABLET PO SCH (21:00)
[2017-07-07 23:34] VITALS: BP 112/80
[2017-07-08] MEDS: DIABETICSOURCE AC 1000ML LIQUID GT PRN (04:07)
[2017-07-08] MEDS: OMEPRAZOLE 20 MG CAPSULE.DR GT SCH (05:42)
[2017-07-08] MEDS: BACLOFEN 20 MG TABLET GT SCH ×4 (07:40→21:11)
[2017-07-08] MEDS: NUTRISOURCE FIBER 4 GM PACKET GT SCH ×2 (07:41→21:12)
[2017-07-08] MEDS: ACIDOPHILUS/BULGARICUS CHEW TAB GT SCH ×2 (07:42→21:11)
[2017-07-08] MEDS: DOCUSATE SODIUM 100 MG/10 ML LIQUID UDC GT SCH ×2 (07:43→21:11)
[2017-07-08] MEDS: HYDROGEN PEROXIDE 3% 118 ML BOTTLE TP SCH ×2 (07:44→21:12)
[2017-07-08] MEDS: SERTRALINE HCL 50 MG TABLET GT SCH (07:44)
[2017-07-08] MEDS: CALMOSEPTINE 113 GM OINTMENT TP SCH ×2 (07:44→21:12)
[2017-07-08] MEDS: SIMETHICONE 40 MG/0.6 ML, 30ML BOTTLE GT SCH ×3 (07:44→17:29)
[2017-07-08] MEDS: METOPROLOL TARTRATE 50 MG TABLET GT SCH ×2 (07:49→21:12)
[2017-07-08 08:07] VITALS: BP 105/67
--- NOTE | 2017-07-08 10:15 | NUR ---
SEEN AND EXAMINED BY JANY RICHARDSON,NO NEW ORDERS.
[2017-07-08] MEDS: ASCORBIC ACID 500 MG TABLET PO SCH (21:12)
[2017-07-08 22:00] VITALS: BP 118/80
[2017-07-09] MEDS: OMEPRAZOLE 20 MG CAPSULE.DR GT SCH (06:22)
[2017-07-09] MEDS: MULTIVIT, IRON, MIN NO. 8, FA TABLET GT SCH (06:22)
[2017-07-09] MEDS: DIABETICSOURCE AC 1000ML LIQUID GT PRN (06:59)
[2017-07-09 08:09] VITALS: BP 102/64
[2017-07-09] MEDS: ACIDOPHILUS/BULGARICUS CHEW TAB GT SCH ×2 (08:54→21:33)
[2017-07-09] MEDS: DOCUSATE SODIUM 100 MG/10 ML LIQUID UDC GT SCH ×2 (08:54→21:33)
[2017-07-09] MEDS: BACLOFEN 20 MG TABLET GT SCH ×4 (08:55→21:33)
[2017-07-09] MEDS: METOPROLOL TARTRATE 50 MG TABLET GT SCH ×2 (08:56→21:34)
[2017-07-09] MEDS: CALMOSEPTINE 113 GM OINTMENT TP SCH ×2 (08:57→21:34)
[2017-07-09] MEDS: NUTRISOURCE FIBER 4 GM PACKET GT SCH ×2 (08:57→21:34)
[2017-07-09] MEDS: SERTRALINE HCL 50 MG TABLET GT SCH (08:57)
[2017-07-09] MEDS: SIMETHICONE 40 MG/0.6 ML, 30ML BOTTLE GT SCH ×3 (08:57→17:03)
[2017-07-09] MEDS: HYDROGEN PEROXIDE 3% 118 ML BOTTLE TP SCH ×2 (08:57→21:34)
[2017-07-09 20:00] VITALS: BP 104/72
[2017-07-09] MEDS: ASCORBIC ACID 500 MG TABLET PO SCH (21:34)
[2017-07-10] MEDS: DIABETICSOURCE AC 1000ML LIQUID GT PRN (03:13)
[2017-07-10] MEDS: OMEPRAZOLE 20 MG CAPSULE.DR GT SCH (06:45)
[2017-07-10 08:06] VITALS: BP 97/61
[2017-07-10] MEDS: DOCUSATE SODIUM 100 MG/10 ML LIQUID UDC GT SCH ×2 (08:52→21:05)
[2017-07-10] MEDS: BACLOFEN 20 MG TABLET GT SCH ×4 (08:52→21:05)
[2017-07-10] MEDS: ACIDOPHILUS/BULGARICUS CHEW TAB GT SCH ×2 (08:52→21:05)
[2017-07-10] MEDS: METOPROLOL TARTRATE 50 MG TABLET GT SCH ×2 (08:53→21:06)
[2017-07-10] MEDS: SIMETHICONE 40 MG/0.6 ML, 30ML BOTTLE GT SCH ×3 (08:53→18:00)
[2017-07-10] MEDS: NUTRISOURCE FIBER 4 GM PACKET GT SCH ×2 (08:54→21:06)
[2017-07-10] MEDS: HYDROGEN PEROXIDE 3% 118 ML BOTTLE TP SCH ×2 (08:54→21:06)
[2017-07-10] MEDS: CALMOSEPTINE 113 GM OINTMENT TP SCH ×2 (08:54→21:06)
[2017-07-10] MEDS: SERTRALINE HCL 50 MG TABLET GT SCH (08:54)
--- NOTE | 2017-07-10 14:51 | NUR ---
Pharmacy Update from today's 07/10/17 IDT Meeting VS: Temp 98.6 BP 97.61 HR 77 LABS: (from 02/05/17, no new labs) Wbc 6.9H/H 12.3/39.3Plt 321 Na 143K 3.6Cl 105CO2 30BUN/SCr 19/0.7 BS 113 Ca 9.2 MEDICATION USE REVIEWED: > Pt is not on any anti-epileptic medications > Pt is on Zoloft 50mg daily for depression m/b episodes of crying; No GDR planned for pt d/t contraindication of persisten cry episodes and repeated failed GDRs in the past (see MD note). Patient had 7 episodes of crying in May (previously x0 Jun, x0 July, x1 August, x0 September, x0 October, x1 November, x1 Dec, x0 Jan, x2 Oct, x4 Nov, x0 Dec) > Pt is on depo-provera [id number] for heavy menstruation, last given 07/04/16 > PRN MED USAGE: (May) Tylenol 650mg for mild pain used x6 Tylenol for temp x0 Tylenol 1000mg mod pain x0 [place] severe pain x0 Bisacodyl x1 Immodium x0 NEW ORDERS NOTED: > NA Patient was reviewed and discussed in depth, no medication concerns at this time. Despite increased episodes crying in May, crying has stabilized with no episodes so far in Jun. Will continue to monitor at this time.
--- NOTE | 2017-07-10 15:04 | NUR ---
INTERDISCIPLINARY PLAN OF CARE CONFERENCE was held today. Patient's family was unable to attend the meeting. Dr. Heaton and the Interdisciplinary Team reviewed the current plan of care in detail. RN provided updates on patient's current medical condition. See RN IDT conference notes. No major changes were reported at this time. See also all other disciplines IDT notes and physician's progress notes for additional details.
[2017-07-10 20:00] VITALS: BP 103/67
[2017-07-10] MEDS: ASCORBIC ACID 500 MG TABLET PO SCH (21:06)
[2017-07-11] MEDS: DIABETICSOURCE AC 1000ML LIQUID GT PRN (04:01)
[2017-07-11] MEDS: OMEPRAZOLE 20 MG CAPSULE.DR GT SCH (05:38)
[2017-07-11] MEDS: MULTIVIT, IRON, MIN NO. 8, FA TABLET GT SCH (05:38)
[2017-07-11 08:00] VITALS: BP 118/74
[2017-07-11] MEDS: DOCUSATE SODIUM 100 MG/10 ML LIQUID UDC GT SCH ×2 (08:26→20:50)
[2017-07-11] MEDS: ACIDOPHILUS/BULGARICUS CHEW TAB GT SCH ×2 (08:26→20:50)
[2017-07-11] MEDS: BACLOFEN 20 MG TABLET GT SCH ×4 (08:27→20:51)
[2017-07-11] MEDS: NUTRISOURCE FIBER 4 GM PACKET GT SCH ×2 (08:28→20:52)
[2017-07-11] MEDS: HYDROGEN PEROXIDE 3% 118 ML BOTTLE TP SCH ×2 (08:28→20:53)
[2017-07-11] MEDS: METOPROLOL TARTRATE 50 MG TABLET GT SCH ×2 (08:28→20:52)
[2017-07-11] MEDS: SIMETHICONE 40 MG/0.6 ML, 30ML BOTTLE GT SCH ×3 (08:28→16:21)
[2017-07-11] MEDS: SERTRALINE HCL 50 MG TABLET GT SCH (08:28)
[2017-07-11] MEDS: CALMOSEPTINE 113 GM OINTMENT TP SCH ×2 (08:28→20:53)
[2017-07-11 20:00] VITALS: BP 115/75
[2017-07-11] MEDS: ASCORBIC ACID 500 MG TABLET PO SCH (20:53)
[2017-07-12] MEDS: DIABETICSOURCE AC 1000ML LIQUID GT PRN ×2 (04:08→09:24)
[2017-07-12] MEDS: OMEPRAZOLE 20 MG CAPSULE.DR GT SCH (05:42)
[2017-07-12 08:00] VITALS: BP 112/76
[2017-07-12] MEDS: METOPROLOL TARTRATE 50 MG TABLET GT SCH ×2 (09:21→20:50)
[2017-07-12] MEDS: ACIDOPHILUS/BULGARICUS CHEW TAB GT SCH ×2 (09:22→20:49)
[2017-07-12] MEDS: BACLOFEN 20 MG TABLET GT SCH ×4 (09:22→20:49)
[2017-07-12] MEDS: DOCUSATE SODIUM 100 MG/10 ML LIQUID UDC GT SCH ×2 (09:22→20:49)
[2017-07-12] MEDS: CALMOSEPTINE 113 GM OINTMENT TP SCH ×2 (09:23→20:51)
[2017-07-12] MEDS: NUTRISOURCE FIBER 4 GM PACKET GT SCH ×2 (09:23→20:50)
[2017-07-12] MEDS: HYDROGEN PEROXIDE 3% 118 ML BOTTLE TP SCH ×2 (09:23→20:51)
[2017-07-12] MEDS: SIMETHICONE 40 MG/0.6 ML, 30ML BOTTLE GT SCH ×3 (09:23→16:37)
[2017-07-12] MEDS: SERTRALINE HCL 50 MG TABLET GT SCH (09:23)
--- NOTE | 2017-07-12 14:40 | NUR ---
SEEN BY GLENN MORGAN.
[2017-07-12 20:00] VITALS: BP 120/74
[2017-07-12] MEDS: ASCORBIC ACID 500 MG TABLET PO SCH (20:51)
[2017-07-13] MEDS: OMEPRAZOLE 20 MG CAPSULE.DR GT SCH (05:33)
[2017-07-13] MEDS: MULTIVIT, IRON, MIN NO. 8, FA TABLET GT SCH (05:33)
[2017-07-13 08:07] VITALS: BP 113/84
[2017-07-13] MEDS: CALMOSEPTINE 113 GM OINTMENT TP SCH ×2 (08:51→20:31)
[2017-07-13] MEDS: DOCUSATE SODIUM 100 MG/10 ML LIQUID UDC GT SCH ×2 (08:51→20:30)
[2017-07-13] MEDS: ACIDOPHILUS/BULGARICUS CHEW TAB GT SCH ×2 (08:51→20:30)
[2017-07-13] MEDS: METOPROLOL TARTRATE 50 MG TABLET GT SCH ×2 (08:51→20:31)
[2017-07-13] MEDS: SIMETHICONE 40 MG/0.6 ML, 30ML BOTTLE GT SCH ×3 (08:51→17:34)
[2017-07-13] MEDS: NUTRISOURCE FIBER 4 GM PACKET GT SCH ×2 (08:51→20:31)
[2017-07-13] MEDS: BACLOFEN 20 MG TABLET GT SCH ×4 (08:51→20:30)
[2017-07-13] MEDS: SERTRALINE HCL 50 MG TABLET GT SCH (08:51)
[2017-07-13] MEDS: HYDROGEN PEROXIDE 3% 118 ML BOTTLE TP SCH ×2 (08:51→20:31)
[2017-07-13 20:18] VITALS: BP 104/71
[2017-07-13] MEDS: ASCORBIC ACID 500 MG TABLET PO SCH (20:31)
[2017-07-14] MEDS: OMEPRAZOLE 20 MG CAPSULE.DR GT SCH (05:50)
[2017-07-14 08:05] VITALS: BP 100/70
[2017-07-14] MEDS: METOPROLOL TARTRATE 50 MG TABLET GT SCH ×2 (08:59→21:11)
[2017-07-14] MEDS: SIMETHICONE 40 MG/0.6 ML, 30ML BOTTLE GT SCH ×3 (08:59→17:32)
[2017-07-14] MEDS: NUTRISOURCE FIBER 4 GM PACKET GT SCH ×2 (08:59→21:11)
[2017-07-14] MEDS: ACIDOPHILUS/BULGARICUS CHEW TAB GT SCH ×2 (08:59→21:11)
[2017-07-14] MEDS: HYDROGEN PEROXIDE 3% 118 ML BOTTLE TP SCH ×2 (08:59→21:11)
[2017-07-14] MEDS: BACLOFEN 20 MG TABLET GT SCH ×4 (08:59→21:11)
[2017-07-14] MEDS: SERTRALINE HCL 50 MG TABLET GT SCH (08:59)
[2017-07-14] MEDS: CALMOSEPTINE 113 GM OINTMENT TP SCH ×2 (08:59→21:11)
[2017-07-14] MEDS: DOCUSATE SODIUM 100 MG/10 ML LIQUID UDC GT SCH ×2 (08:59→21:11)
[2017-07-14 20:14] VITALS: BP 118/85
[2017-07-14] MEDS: ASCORBIC ACID 500 MG TABLET PO SCH (21:11)
[2017-07-15] MEDS: OMEPRAZOLE 20 MG CAPSULE.DR GT SCH (05:08)
[2017-07-15] MEDS: MULTIVIT, IRON, MIN NO. 8, FA TABLET GT SCH (05:42)
[2017-07-15] MEDS: METOPROLOL TARTRATE 50 MG TABLET GT SCH ×2 (08:04→21:05)
[2017-07-15] MEDS: DOCUSATE SODIUM 100 MG/10 ML LIQUID UDC GT SCH ×2 (08:04→21:05)
[2017-07-15] MEDS: ACIDOPHILUS/BULGARICUS CHEW TAB GT SCH ×2 (08:04→21:05)
[2017-07-15] MEDS: BACLOFEN 20 MG TABLET GT SCH ×4 (08:04→21:05)
[2017-07-15 08:05] VITALS: BP 119/82
[2017-07-15] MEDS: NUTRISOURCE FIBER 4 GM PACKET GT SCH ×2 (08:05→21:06)
[2017-07-15] MEDS: SERTRALINE HCL 50 MG TABLET GT SCH (08:05)
[2017-07-15] MEDS: SIMETHICONE 40 MG/0.6 ML, 30ML BOTTLE GT SCH ×3 (08:05→17:27)
[2017-07-15] MEDS: HYDROGEN PEROXIDE 3% 118 ML BOTTLE TP SCH ×2 (08:06→21:06)
[2017-07-15] MEDS: CALMOSEPTINE 113 GM OINTMENT TP SCH ×2 (08:06→21:06)
[2017-07-15] MEDS: DIABETICSOURCE AC 1000ML LIQUID GT PRN (12:02)
[2017-07-15 20:04] VITALS: BP 120/77
[2017-07-15] MEDS: ASCORBIC ACID 500 MG TABLET PO SCH (21:06)
[2017-07-16] MEDS: OMEPRAZOLE 20 MG CAPSULE.DR GT SCH (05:24)
[2017-07-16 08:00] VITALS: BP 105/67
[2017-07-16] MEDS: DOCUSATE SODIUM 100 MG/10 ML LIQUID UDC GT SCH ×2 (08:29→20:30)
[2017-07-16] MEDS: BACLOFEN 20 MG TABLET GT SCH ×4 (08:29→20:30)
[2017-07-16] MEDS: ACIDOPHILUS/BULGARICUS CHEW TAB GT SCH ×2 (08:29→20:30)
[2017-07-16] MEDS: SIMETHICONE 40 MG/0.6 ML, 30ML BOTTLE GT SCH ×3 (08:30→16:23)
[2017-07-16] MEDS: HYDROGEN PEROXIDE 3% 118 ML BOTTLE TP SCH ×2 (08:30→20:31)
[2017-07-16] MEDS: METOPROLOL TARTRATE 50 MG TABLET GT SCH ×2 (08:30→20:31)
[2017-07-16] MEDS: SERTRALINE HCL 50 MG TABLET GT SCH (08:30)
[2017-07-16] MEDS: CALMOSEPTINE 113 GM OINTMENT TP SCH ×2 (08:30→20:31)
[2017-07-16] MEDS: NUTRISOURCE FIBER 4 GM PACKET GT SCH ×2 (08:30→20:31)
[2017-07-16] MEDS: DIABETICSOURCE AC 1000ML LIQUID GT PRN (13:32)
[2017-07-16 20:00] VITALS: BP 111/73
[2017-07-16] MEDS: ASCORBIC ACID 500 MG TABLET PO SCH (20:31)
[2017-07-17] MEDS: MULTIVIT, IRON, MIN NO. 8, FA TABLET GT SCH (05:43)
[2017-07-17] MEDS: OMEPRAZOLE 20 MG CAPSULE.DR GT SCH (05:43)
[2017-07-17 08:00] VITALS: BP 105/68
[2017-07-17] MEDS: DOCUSATE SODIUM 100 MG/10 ML LIQUID UDC GT SCH ×2 (08:28→21:00)
[2017-07-17] MEDS: BACLOFEN 20 MG TABLET GT SCH ×4 (08:28→21:00)
[2017-07-17] MEDS: ACIDOPHILUS/BULGARICUS CHEW TAB GT SCH ×2 (08:28→21:00)
[2017-07-17] MEDS: METOPROLOL TARTRATE 50 MG TABLET GT SCH ×2 (08:29→21:00)
[2017-07-17] MEDS: SIMETHICONE 40 MG/0.6 ML, 30ML BOTTLE GT SCH ×3 (08:29→16:47)
[2017-07-17] MEDS: HYDROGEN PEROXIDE 3% 118 ML BOTTLE TP SCH ×2 (08:29→21:00)
[2017-07-17] MEDS: NUTRISOURCE FIBER 4 GM PACKET GT SCH ×2 (08:29→21:00)
[2017-07-17] MEDS: CALMOSEPTINE 113 GM OINTMENT TP SCH ×2 (08:29→21:00)
[2017-07-17] MEDS: SERTRALINE HCL 50 MG TABLET GT SCH (08:29)
[2017-07-17 20:00] VITALS: BP 107/64
[2017-07-17] MEDS: ASCORBIC ACID 500 MG TABLET PO SCH (21:00)
[2017-07-18] MEDS: OMEPRAZOLE 20 MG CAPSULE.DR GT SCH (05:13)
[2017-07-18 08:00] VITALS: BP 103/60
[2017-07-18] MEDS: NUTRISOURCE FIBER 4 GM PACKET GT SCH ×2 (08:50→21:34)
[2017-07-18] MEDS: METOPROLOL TARTRATE 50 MG TABLET GT SCH ×2 (08:50→21:00)
[2017-07-18] MEDS: CALMOSEPTINE 113 GM OINTMENT TP SCH ×2 (08:50→21:34)
[2017-07-18] MEDS: BACLOFEN 20 MG TABLET GT SCH ×4 (08:50→21:33)
[2017-07-18] MEDS: HYDROGEN PEROXIDE 3% 118 ML BOTTLE TP SCH ×2 (08:50→21:34)
[2017-07-18] MEDS: DOCUSATE SODIUM 100 MG/10 ML LIQUID UDC GT SCH ×2 (08:50→21:33)
[2017-07-18] MEDS: ACIDOPHILUS/BULGARICUS CHEW TAB GT SCH ×2 (08:50→21:33)
[2017-07-18] MEDS: SIMETHICONE 40 MG/0.6 ML, 30ML BOTTLE GT SCH ×3 (08:50→17:14)
[2017-07-18] MEDS: SERTRALINE HCL 50 MG TABLET GT SCH (08:50)
[2017-07-18 20:00] VITALS: BP 96/70
[2017-07-18] MEDS: ASCORBIC ACID 500 MG TABLET PO SCH (21:34)
[2017-07-19] MEDS: OMEPRAZOLE 20 MG CAPSULE.DR GT SCH (05:43)
[2017-07-19] MEDS: MULTIVIT, IRON, MIN NO. 8, FA TABLET GT SCH (05:43)
[2017-07-19 08:00] VITALS: BP 121/67
[2017-07-19] MEDS: DOCUSATE SODIUM 100 MG/10 ML LIQUID UDC GT SCH ×2 (08:42→21:32)
[2017-07-19] MEDS: ACIDOPHILUS/BULGARICUS CHEW TAB GT SCH ×2 (08:42→21:33)
[2017-07-19] MEDS: SERTRALINE HCL 50 MG TABLET GT SCH (08:43)
[2017-07-19] MEDS: BACLOFEN 20 MG TABLET GT SCH ×4 (08:43→21:33)
[2017-07-19] MEDS: CALMOSEPTINE 113 GM OINTMENT TP SCH ×2 (08:43→21:33)
[2017-07-19] MEDS: SIMETHICONE 40 MG/0.6 ML, 30ML BOTTLE GT SCH ×3 (08:43→16:27)
[2017-07-19] MEDS: NUTRISOURCE FIBER 4 GM PACKET GT SCH ×2 (08:43→21:33)
[2017-07-19] MEDS: HYDROGEN PEROXIDE 3% 118 ML BOTTLE TP SCH ×2 (08:43→21:33)
[2017-07-19] MEDS: METOPROLOL TARTRATE 50 MG TABLET GT SCH ×2 (08:43→21:33)
--- NOTE | 2017-07-19 15:23 | NUR ---
SEEN BY GLENN MORGAN.
[2017-07-19 20:00] VITALS: BP 106/76
[2017-07-19] MEDS: ASCORBIC ACID 500 MG TABLET PO SCH (21:33)
[2017-07-20] MEDS: OMEPRAZOLE 20 MG CAPSULE.DR GT SCH (05:47)
[2017-07-20 08:00] VITALS: BP 127/80
[2017-07-20] MEDS: ACIDOPHILUS/BULGARICUS CHEW TAB GT SCH ×2 (09:10→21:55)
[2017-07-20] MEDS: SIMETHICONE 40 MG/0.6 ML, 30ML BOTTLE GT SCH ×3 (09:10→16:12)
[2017-07-20] MEDS: NUTRISOURCE FIBER 4 GM PACKET GT SCH ×2 (09:10→21:55)
[2017-07-20] MEDS: BACLOFEN 20 MG TABLET GT SCH ×4 (09:10→21:55)
[2017-07-20] MEDS: METOPROLOL TARTRATE 50 MG TABLET GT SCH ×2 (09:10→21:55)
[2017-07-20] MEDS: SERTRALINE HCL 50 MG TABLET GT SCH (09:10)
[2017-07-20] MEDS: DOCUSATE SODIUM 100 MG/10 ML LIQUID UDC GT SCH ×2 (09:10→21:55)
[2017-07-20] MEDS: CALMOSEPTINE 113 GM OINTMENT TP SCH ×2 (09:10→21:55)
[2017-07-20] MEDS: HYDROGEN PEROXIDE 3% 118 ML BOTTLE TP SCH ×2 (09:11→21:55)
[2017-07-20] MEDS: DIABETICSOURCE AC 1000ML LIQUID GT PRN (13:36)
[2017-07-20] MEDS: ASCORBIC ACID 500 MG TABLET PO SCH (21:55)
[2017-07-20 22:00] VITALS: BP 102/60
[2017-07-21] MEDS: OMEPRAZOLE 20 MG CAPSULE.DR GT SCH (05:21)
[2017-07-21] MEDS: MULTIVIT, IRON, MIN NO. 8, FA TABLET GT SCH (05:30)
[2017-07-21 08:04] VITALS: BP 101/64
[2017-07-21] MEDS: ACIDOPHILUS/BULGARICUS CHEW TAB GT SCH ×2 (09:18→21:03)
[2017-07-21] MEDS: BACLOFEN 20 MG TABLET GT SCH ×4 (09:18→21:03)
[2017-07-21] MEDS: DOCUSATE SODIUM 100 MG/10 ML LIQUID UDC GT SCH ×2 (09:18→21:03)
[2017-07-21] MEDS: SIMETHICONE 40 MG/0.6 ML, 30ML BOTTLE GT SCH ×3 (09:18→17:47)
[2017-07-21] MEDS: METOPROLOL TARTRATE 50 MG TABLET GT SCH ×2 (09:18→21:04)
[2017-07-21] MEDS: NUTRISOURCE FIBER 4 GM PACKET GT SCH ×2 (09:20→21:04)
[2017-07-21] MEDS: CALMOSEPTINE 113 GM OINTMENT TP SCH ×2 (09:20→21:05)
[2017-07-21] MEDS: HYDROGEN PEROXIDE 3% 118 ML BOTTLE TP SCH ×2 (09:20→21:05)
[2017-07-21] MEDS: SERTRALINE HCL 50 MG TABLET GT SCH (09:20)
[2017-07-21] MEDS: ACETAMINOPHEN 650 MG/20 ML UDC- SA PATIENTS-PAIN ONLY GT PRN (12:12)
[2017-07-21] MEDS: DIABETICSOURCE AC 1000ML LIQUID GT PRN (15:00)
[2017-07-21] MEDS: ASCORBIC ACID 500 MG TABLET PO SCH (21:05)
[2017-07-21 23:32] VITALS: BP 117/70
[2017-07-22] MEDS: OMEPRAZOLE 20 MG CAPSULE.DR GT SCH (05:13)
[2017-07-22 08:06] VITALS: BP 98/59
[2017-07-22] MEDS: ACIDOPHILUS/BULGARICUS CHEW TAB GT SCH ×2 (08:14→21:40)
[2017-07-22] MEDS: SERTRALINE HCL 50 MG TABLET GT SCH (08:14)
[2017-07-22] MEDS: SIMETHICONE 40 MG/0.6 ML, 30ML BOTTLE GT SCH ×3 (08:14→17:02)
[2017-07-22] MEDS: DOCUSATE SODIUM 100 MG/10 ML LIQUID UDC GT SCH ×2 (08:14→21:40)
[2017-07-22] MEDS: NUTRISOURCE FIBER 4 GM PACKET GT SCH ×2 (08:14→21:41)
[2017-07-22] MEDS: BACLOFEN 20 MG TABLET GT SCH ×4 (08:14→21:40)
[2017-07-22] MEDS: METOPROLOL TARTRATE 50 MG TABLET GT SCH ×2 (08:14→21:41)
[2017-07-22] MEDS: CALMOSEPTINE 113 GM OINTMENT TP SCH ×2 (08:15→21:41)
[2017-07-22] MEDS: HYDROGEN PEROXIDE 3% 118 ML BOTTLE TP SCH ×2 (08:15→21:41)
[2017-07-22] MEDS: DIABETICSOURCE AC 1000ML LIQUID GT PRN (13:06)
[2017-07-22] MEDS: ASCORBIC ACID 500 MG TABLET PO SCH (21:41)
[2017-07-22 22:00] VITALS: BP 106/65
[2017-07-23] MEDS: OMEPRAZOLE 20 MG CAPSULE.DR GT SCH (05:54)
[2017-07-23] MEDS: MULTIVIT, IRON, MIN NO. 8, FA TABLET GT SCH (05:54)
[2017-07-23 08:00] VITALS: BP 128/71
[2017-07-23] MEDS: BACLOFEN 20 MG TABLET GT SCH ×4 (08:35→21:59)
[2017-07-23] MEDS: ACIDOPHILUS/BULGARICUS CHEW TAB GT SCH ×2 (08:35→21:59)
[2017-07-23] MEDS: DOCUSATE SODIUM 100 MG/10 ML LIQUID UDC GT SCH ×2 (08:35→21:59)
[2017-07-23] MEDS: NUTRISOURCE FIBER 4 GM PACKET GT SCH ×2 (08:36→21:00)
[2017-07-23] MEDS: METOPROLOL TARTRATE 50 MG TABLET GT SCH ×2 (08:36→21:00)
[2017-07-23] MEDS: CALMOSEPTINE 113 GM OINTMENT TP SCH ×2 (08:36→21:00)
[2017-07-23] MEDS: SERTRALINE HCL 50 MG TABLET GT SCH (08:36)
[2017-07-23] MEDS: SIMETHICONE 40 MG/0.6 ML, 30ML BOTTLE GT SCH ×3 (08:36→16:56)
[2017-07-23] MEDS: HYDROGEN PEROXIDE 3% 118 ML BOTTLE TP SCH ×2 (08:37→21:00)
[2017-07-23] MEDS: ACETAMINOPHEN 650 MG/20 ML UDC- SA PATIENTS-PAIN ONLY GT PRN (08:37)
[2017-07-23] MEDS: DIABETICSOURCE AC 1000ML LIQUID GT PRN (16:20)
[2017-07-23] MEDS: ASCORBIC ACID 500 MG TABLET PO SCH (21:00)
[2017-07-23 21:33] VITALS: BP 99/66
[2017-07-24] MEDS: OMEPRAZOLE 20 MG CAPSULE.DR GT SCH (06:51)
[2017-07-24 08:00] VITALS: BP 117/86
[2017-07-24] MEDS: DOCUSATE SODIUM 100 MG/10 ML LIQUID UDC GT SCH ×2 (08:19→20:36)
[2017-07-24] MEDS: BACLOFEN 20 MG TABLET GT SCH ×4 (08:19→20:36)
[2017-07-24] MEDS: ACIDOPHILUS/BULGARICUS CHEW TAB GT SCH ×2 (08:19→20:36)
[2017-07-24] MEDS: METOPROLOL TARTRATE 50 MG TABLET GT SCH ×2 (08:20→20:36)
[2017-07-24] MEDS: SERTRALINE HCL 50 MG TABLET GT SCH (08:20)
[2017-07-24] MEDS: NUTRISOURCE FIBER 4 GM PACKET GT SCH ×2 (08:20→20:36)
[2017-07-24] MEDS: SIMETHICONE 40 MG/0.6 ML, 30ML BOTTLE GT SCH ×3 (08:20→16:41)
[2017-07-24] MEDS: HYDROGEN PEROXIDE 3% 118 ML BOTTLE TP SCH ×2 (08:20→20:38)
[2017-07-24] MEDS: CALMOSEPTINE 113 GM OINTMENT TP SCH ×2 (08:20→20:38)
[2017-07-24] MEDS: DIABETICSOURCE AC 1000ML LIQUID GT PRN (16:41)
[2017-07-24 20:00] VITALS: BP 112/66
[2017-07-24] MEDS: ASCORBIC ACID 500 MG TABLET PO SCH (20:36)
[2017-07-25] MEDS: OMEPRAZOLE 20 MG CAPSULE.DR GT SCH (05:37)
[2017-07-25] MEDS: MULTIVIT, IRON, MIN NO. 8, FA TABLET GT SCH (05:37)
[2017-07-25 08:00] VITALS: BP 118/87
[2017-07-25] MEDS: DOCUSATE SODIUM 100 MG/10 ML LIQUID UDC GT SCH ×2 (08:43→20:25)
[2017-07-25] MEDS: ACIDOPHILUS/BULGARICUS CHEW TAB GT SCH ×2 (08:43→20:25)
[2017-07-25] MEDS: BACLOFEN 20 MG TABLET GT SCH ×4 (08:44→20:25)
[2017-07-25] MEDS: SIMETHICONE 40 MG/0.6 ML, 30ML BOTTLE GT SCH ×3 (08:44→16:33)
[2017-07-25] MEDS: CALMOSEPTINE 113 GM OINTMENT TP SCH ×2 (08:45→20:26)
[2017-07-25] MEDS: HYDROGEN PEROXIDE 3% 118 ML BOTTLE TP SCH ×2 (08:45→20:26)
[2017-07-25] MEDS: NUTRISOURCE FIBER 4 GM PACKET GT SCH ×2 (08:45→20:25)
[2017-07-25] MEDS: SERTRALINE HCL 50 MG TABLET GT SCH (08:45)
[2017-07-25] MEDS: METOPROLOL TARTRATE 50 MG TABLET GT SCH ×2 (08:49→20:25)
--- NOTE | 2017-07-25 16:00 | NUR ---
SEEN AND EXAMINED BY ABIEL WITH NO NEW ORDERS NOTED
[2017-07-25] MEDS: ASCORBIC ACID 500 MG TABLET PO SCH (20:26)
[2017-07-25 22:56] VITALS: BP 101/68
--- NOTE | 2017-07-25 23:15 | NUR ---
Seen and examined by JANY Isaac with no new order.
[2017-07-26] MEDS: OMEPRAZOLE 20 MG CAPSULE.DR GT SCH (06:06)
[2017-07-26 08:00] VITALS: BP 106/73
[2017-07-26] MEDS: DOCUSATE SODIUM 100 MG/10 ML LIQUID UDC GT SCH ×2 (08:47→20:28)
[2017-07-26] MEDS: ACIDOPHILUS/BULGARICUS CHEW TAB GT SCH ×2 (08:47→20:28)
[2017-07-26] MEDS: SERTRALINE HCL 50 MG TABLET GT SCH (08:48)
[2017-07-26] MEDS: BACLOFEN 20 MG TABLET GT SCH ×4 (08:48→20:29)
[2017-07-26] MEDS: SIMETHICONE 40 MG/0.6 ML, 30ML BOTTLE GT SCH ×3 (08:48→16:15)
[2017-07-26] MEDS: NUTRISOURCE FIBER 4 GM PACKET GT SCH ×2 (08:48→20:29)
[2017-07-26] MEDS: METOPROLOL TARTRATE 50 MG TABLET GT SCH ×2 (08:48→20:29)
[2017-07-26] MEDS: HYDROGEN PEROXIDE 3% 118 ML BOTTLE TP SCH ×2 (08:49→20:29)
[2017-07-26] MEDS: CALMOSEPTINE 113 GM OINTMENT TP SCH ×2 (08:49→20:29)
[2017-07-26] MEDS: DIABETICSOURCE AC 1000ML LIQUID GT PRN (16:14)
--- NOTE | 2017-07-26 19:42 | NUR ---
SEEN BY DR. RENY MORGAN.
[2017-07-26 20:00] VITALS: BP 128/71
[2017-07-26] MEDS: ASCORBIC ACID 500 MG TABLET PO SCH (20:29)
[2017-07-27] MEDS: MULTIVIT, IRON, MIN NO. 8, FA TABLET GT SCH (05:58)
[2017-07-27] MEDS: OMEPRAZOLE 20 MG CAPSULE.DR GT SCH (05:58)
[2017-07-27 08:07] VITALS: BP 108/62
[2017-07-27] MEDS: METOPROLOL TARTRATE 50 MG TABLET GT SCH ×2 (09:01→21:47)
[2017-07-27] MEDS: NUTRISOURCE FIBER 4 GM PACKET GT SCH ×2 (09:01→21:47)
[2017-07-27] MEDS: SIMETHICONE 40 MG/0.6 ML, 30ML BOTTLE GT SCH ×3 (09:01→17:23)
[2017-07-27] MEDS: CALMOSEPTINE 113 GM OINTMENT TP SCH ×2 (09:01→21:48)
[2017-07-27] MEDS: BACLOFEN 20 MG TABLET GT SCH ×4 (09:01→21:47)
[2017-07-27] MEDS: ACIDOPHILUS/BULGARICUS CHEW TAB GT SCH ×2 (09:01→21:47)
[2017-07-27] MEDS: HYDROGEN PEROXIDE 3% 118 ML BOTTLE TP SCH ×2 (09:01→21:48)
[2017-07-27] MEDS: DOCUSATE SODIUM 100 MG/10 ML LIQUID UDC GT SCH ×2 (09:01→21:47)
[2017-07-27] MEDS: SERTRALINE HCL 50 MG TABLET GT SCH (09:01)
[2017-07-27] MEDS: DIABETICSOURCE AC 1000ML LIQUID GT PRN (15:09)
[2017-07-27] MEDS: ASCORBIC ACID 500 MG TABLET PO SCH (21:47)
[2017-07-28] MEDS: OMEPRAZOLE 20 MG CAPSULE.DR GT SCH (06:04)
[2017-07-28] MEDS: BACLOFEN 20 MG TABLET GT SCH ×4 (08:00→21:00)
[2017-07-28] MEDS: DOCUSATE SODIUM 100 MG/10 ML LIQUID UDC GT SCH ×2 (08:00→21:00)
[2017-07-28] MEDS: ACIDOPHILUS/BULGARICUS CHEW TAB GT SCH ×2 (08:00→21:00)
[2017-07-28] MEDS: METOPROLOL TARTRATE 50 MG TABLET GT SCH ×2 (08:00→21:00)
[2017-07-28] MEDS: SIMETHICONE 40 MG/0.6 ML, 30ML BOTTLE GT SCH ×3 (08:01→16:13)
[2017-07-28] MEDS: NUTRISOURCE FIBER 4 GM PACKET GT SCH ×2 (08:01→21:00)
[2017-07-28] MEDS: CALMOSEPTINE 113 GM OINTMENT TP SCH ×2 (08:01→21:00)
[2017-07-28] MEDS: SERTRALINE HCL 50 MG TABLET GT SCH (08:01)
[2017-07-28] MEDS: HYDROGEN PEROXIDE 3% 118 ML BOTTLE TP SCH ×2 (08:01→21:00)
[2017-07-28 08:08] VITALS: BP 101/56
[2017-07-28 20:00] VITALS: BP 125/80
[2017-07-28] MEDS: ASCORBIC ACID 500 MG TABLET PO SCH (21:00)
[2017-07-29] MEDS: OMEPRAZOLE 20 MG CAPSULE.DR GT SCH (06:52)
[2017-07-29] MEDS: MULTIVIT, IRON, MIN NO. 8, FA TABLET GT SCH (06:52)
[2017-07-29 08:00] VITALS: BP 100/63
[2017-07-29] MEDS: METOPROLOL TARTRATE 50 MG TABLET GT SCH ×2 (08:14→21:48)
[2017-07-29] MEDS: DOCUSATE SODIUM 100 MG/10 ML LIQUID UDC GT SCH ×2 (08:14→21:48)
[2017-07-29] MEDS: ACIDOPHILUS/BULGARICUS CHEW TAB GT SCH ×2 (08:14→21:48)
[2017-07-29] MEDS: BACLOFEN 20 MG TABLET GT SCH ×4 (08:14→21:48)
[2017-07-29] MEDS: HYDROGEN PEROXIDE 3% 118 ML BOTTLE TP SCH ×2 (08:16→21:48)
[2017-07-29] MEDS: NUTRISOURCE FIBER 4 GM PACKET GT SCH ×2 (08:16→21:48)
[2017-07-29] MEDS: SIMETHICONE 40 MG/0.6 ML, 30ML BOTTLE GT SCH ×3 (08:16→16:04)
[2017-07-29] MEDS: CALMOSEPTINE 113 GM OINTMENT TP SCH ×2 (08:16→21:48)
[2017-07-29] MEDS: SERTRALINE HCL 50 MG TABLET GT SCH (08:16)
[2017-07-29 20:54] VITALS: BP 114/69
[2017-07-29] MEDS: ASCORBIC ACID 500 MG TABLET PO SCH (21:48)
[2017-07-30] MEDS: OMEPRAZOLE 20 MG CAPSULE.DR GT SCH (06:59)
[2017-07-30 08:00] VITALS: BP 99/61
[2017-07-30] MEDS: DOCUSATE SODIUM 100 MG/10 ML LIQUID UDC GT SCH ×2 (08:21→21:30)
[2017-07-30] MEDS: ACIDOPHILUS/BULGARICUS CHEW TAB GT SCH ×2 (08:21→21:30)
[2017-07-30] MEDS: BACLOFEN 20 MG TABLET GT SCH ×4 (08:21→21:30)
[2017-07-30] MEDS: METOPROLOL TARTRATE 50 MG TABLET GT SCH ×2 (08:21→21:30)
[2017-07-30] MEDS: SIMETHICONE 40 MG/0.6 ML, 30ML BOTTLE GT SCH ×3 (08:22→16:49)
[2017-07-30] MEDS: CALMOSEPTINE 113 GM OINTMENT TP SCH ×2 (08:22→21:30)
[2017-07-30] MEDS: NUTRISOURCE FIBER 4 GM PACKET GT SCH ×2 (08:22→21:30)
[2017-07-30] MEDS: SERTRALINE HCL 50 MG TABLET GT SCH (08:22)
[2017-07-30] MEDS: HYDROGEN PEROXIDE 3% 118 ML BOTTLE TP SCH ×2 (08:22→21:30)
--- NOTE | 2017-07-30 13:00 | NUR ---
SEEN BY GLENN MORGAN.
--- NOTE | 2017-07-30 15:16 | NUR ---
SEEN BY ABIEL MORGAN.
[2017-07-30 21:16] VITALS: BP 119/70
[2017-07-30] MEDS: ASCORBIC ACID 500 MG TABLET PO SCH (21:30)
[2017-07-31] MEDS: MULTIVIT, IRON, MIN NO. 8, FA TABLET GT SCH (05:42)
[2017-07-31] MEDS: OMEPRAZOLE 20 MG CAPSULE.DR GT SCH (05:42)
[2017-07-31 08:00] VITALS: BP 103/66
[2017-07-31] MEDS: BACLOFEN 20 MG TABLET GT SCH ×4 (08:18→21:05)
[2017-07-31] MEDS: ACIDOPHILUS/BULGARICUS CHEW TAB GT SCH ×2 (08:18→21:05)
[2017-07-31] MEDS: DOCUSATE SODIUM 100 MG/10 ML LIQUID UDC GT SCH ×2 (08:18→21:05)
[2017-07-31] MEDS: METOPROLOL TARTRATE 50 MG TABLET GT SCH ×2 (08:19→21:07)
[2017-07-31] MEDS: SIMETHICONE 40 MG/0.6 ML, 30ML BOTTLE GT SCH ×3 (08:19→16:08)
[2017-07-31] MEDS: HYDROGEN PEROXIDE 3% 118 ML BOTTLE TP SCH ×2 (08:19→21:07)
[2017-07-31] MEDS: NUTRISOURCE FIBER 4 GM PACKET GT SCH ×2 (08:19→21:07)
[2017-07-31] MEDS: CALMOSEPTINE 113 GM OINTMENT TP SCH ×2 (08:19→21:07)
[2017-07-31] MEDS: SERTRALINE HCL 50 MG TABLET GT SCH (08:19)
--- NOTE | 2017-07-31 15:00 | NUR ---
SEEN AND EXAMINED BY ELIZ CARRILLOO.
[2017-07-31 20:36] VITALS: BP 122/80
[2017-07-31] MEDS: ASCORBIC ACID 500 MG TABLET PO SCH (21:07)
[2017-08-01] MEDS: DIABETICSOURCE AC 1000ML LIQUID GT PRN ×2 (03:00→04:11)
[2017-08-01] MEDS: OMEPRAZOLE 20 MG CAPSULE.DR GT SCH (05:54)
[2017-08-01 08:00] VITALS: BP 124/72
[2017-08-01] MEDS: ACIDOPHILUS/BULGARICUS CHEW TAB GT SCH ×2 (08:19→21:19)
[2017-08-01] MEDS: BACLOFEN 20 MG TABLET GT SCH ×4 (08:19→21:20)
[2017-08-01] MEDS: DOCUSATE SODIUM 100 MG/10 ML LIQUID UDC GT SCH ×2 (08:19→21:19)
[2017-08-01] MEDS: METOPROLOL TARTRATE 50 MG TABLET GT SCH ×2 (08:20→21:20)
[2017-08-01] MEDS: HYDROGEN PEROXIDE 3% 118 ML BOTTLE TP SCH ×2 (08:22→21:21)
[2017-08-01] MEDS: SIMETHICONE 40 MG/0.6 ML, 30ML BOTTLE GT SCH ×3 (08:22→16:15)
[2017-08-01] MEDS: NUTRISOURCE FIBER 4 GM PACKET GT SCH ×2 (08:22→21:20)
[2017-08-01] MEDS: CALMOSEPTINE 113 GM OINTMENT TP SCH ×2 (08:22→21:21)
[2017-08-01] MEDS: SERTRALINE HCL 50 MG TABLET GT SCH (08:22)
--- NOTE | 2017-08-01 14:34 | NUR ---
SEEN AND EXAMINED BY ABIEL MORGAN.
[2017-08-01 20:00] VITALS: BP 127/84
[2017-08-01] MEDS: ASCORBIC ACID 500 MG TABLET PO SCH (21:20)
[2017-08-02] MEDS: DIABETICSOURCE AC 1000ML LIQUID GT PRN (01:20)
[2017-08-02] MEDS: OMEPRAZOLE 20 MG CAPSULE.DR GT SCH (05:33)
[2017-08-02] MEDS: MULTIVIT, IRON, MIN NO. 8, FA TABLET GT SCH (05:33)
[2017-08-02 08:00] VITALS: BP 110/78
[2017-08-02] MEDS: BACLOFEN 20 MG TABLET GT SCH ×4 (08:29→21:34)
[2017-08-02] MEDS: DOCUSATE SODIUM 100 MG/10 ML LIQUID UDC GT SCH ×2 (08:29→21:33)
[2017-08-02] MEDS: ACIDOPHILUS/BULGARICUS CHEW TAB GT SCH ×2 (08:29→21:33)
[2017-08-02] MEDS: METOPROLOL TARTRATE 50 MG TABLET GT SCH ×2 (08:30→21:35)
[2017-08-02] MEDS: SIMETHICONE 40 MG/0.6 ML, 30ML BOTTLE GT SCH ×3 (08:30→16:09)
[2017-08-02] MEDS: NUTRISOURCE FIBER 4 GM PACKET GT SCH ×2 (08:31→21:35)
[2017-08-02] MEDS: CALMOSEPTINE 113 GM OINTMENT TP SCH ×2 (08:31→21:35)
[2017-08-02] MEDS: SERTRALINE HCL 50 MG TABLET GT SCH (08:31)
[2017-08-02] MEDS: HYDROGEN PEROXIDE 3% 118 ML BOTTLE TP SCH ×2 (08:32→21:35)
[2017-08-02 20:11] VITALS: BP 117/83
[2017-08-02] MEDS: ASCORBIC ACID 500 MG TABLET PO SCH (21:35)
[2017-08-03] MEDS: ACETAMINOPHEN 650 MG/20 ML UDC- SA PATIENTS-PAIN ONLY GT PRN (04:30)
[2017-08-03] MEDS: DIABETICSOURCE AC 1000ML LIQUID GT PRN (05:00)
[2017-08-03] MEDS: OMEPRAZOLE 20 MG CAPSULE.DR GT SCH (05:50)
[2017-08-03 08:00] VITALS: BP 120/61
[2017-08-03] MEDS: DOCUSATE SODIUM 100 MG/10 ML LIQUID UDC GT SCH ×2 (08:32→20:30)
[2017-08-03] MEDS: BACLOFEN 20 MG TABLET GT SCH ×4 (08:32→20:30)
[2017-08-03] MEDS: SIMETHICONE 40 MG/0.6 ML, 30ML BOTTLE GT SCH ×3 (08:32→16:30)
[2017-08-03] MEDS: METOPROLOL TARTRATE 50 MG TABLET GT SCH ×2 (08:32→20:31)
[2017-08-03] MEDS: ACIDOPHILUS/BULGARICUS CHEW TAB GT SCH ×2 (08:32→20:30)
[2017-08-03] MEDS: SERTRALINE HCL 50 MG TABLET GT SCH (08:33)
[2017-08-03] MEDS: CALMOSEPTINE 113 GM OINTMENT TP SCH ×2 (08:33→20:31)
[2017-08-03] MEDS: HYDROGEN PEROXIDE 3% 118 ML BOTTLE TP SCH ×2 (08:33→20:31)
[2017-08-03] MEDS: NUTRISOURCE FIBER 4 GM PACKET GT SCH ×2 (08:33→20:31)
[2017-08-03] MEDS: ASCORBIC ACID 500 MG TABLET PO SCH (20:31)
[2017-08-03 22:30] VITALS: BP 109/71
[2017-08-04] MEDS: DIABETICSOURCE AC 1000ML LIQUID GT PRN (02:47)
[2017-08-04] MEDS: OMEPRAZOLE 20 MG CAPSULE.DR GT SCH (06:24)
[2017-08-04] MEDS: MULTIVIT, IRON, MIN NO. 8, FA TABLET GT SCH (06:25)
[2017-08-04 08:08] VITALS: BP 108/68
[2017-08-04] MEDS: DOCUSATE SODIUM 100 MG/10 ML LIQUID UDC GT SCH ×2 (08:20→21:16)
[2017-08-04] MEDS: ACIDOPHILUS/BULGARICUS CHEW TAB GT SCH ×2 (08:20→21:16)
[2017-08-04] MEDS: SIMETHICONE 40 MG/0.6 ML, 30ML BOTTLE GT SCH ×3 (08:21→16:38)
[2017-08-04] MEDS: NUTRISOURCE FIBER 4 GM PACKET GT SCH ×2 (08:21→21:17)
[2017-08-04] MEDS: BACLOFEN 20 MG TABLET GT SCH ×4 (08:21→21:16)
[2017-08-04] MEDS: HYDROGEN PEROXIDE 3% 118 ML BOTTLE TP SCH ×2 (08:21→21:17)
[2017-08-04] MEDS: METOPROLOL TARTRATE 50 MG TABLET GT SCH ×2 (08:21→21:17)
[2017-08-04] MEDS: CALMOSEPTINE 113 GM OINTMENT TP SCH ×2 (08:21→21:17)
[2017-08-04] MEDS: SERTRALINE HCL 50 MG TABLET GT SCH (08:21)
[2017-08-04 20:00] VITALS: BP 119/76
[2017-08-04] MEDS: ASCORBIC ACID 500 MG TABLET PO SCH (21:17)
[2017-08-05] MEDS: DIABETICSOURCE AC 1000ML LIQUID GT PRN (02:22)
[2017-08-05] MEDS: OMEPRAZOLE 20 MG CAPSULE.DR GT SCH (05:52)
[2017-08-05 08:00] VITALS: BP 113/78
[2017-08-05] MEDS: ACIDOPHILUS/BULGARICUS CHEW TAB GT SCH ×2 (09:07→20:14)
[2017-08-05] MEDS: DOCUSATE SODIUM 100 MG/10 ML LIQUID UDC GT SCH ×2 (09:07→20:14)
[2017-08-05] MEDS: BACLOFEN 20 MG TABLET GT SCH ×4 (09:07→20:14)
[2017-08-05] MEDS: NUTRISOURCE FIBER 4 GM PACKET GT SCH ×2 (09:08→20:14)
[2017-08-05] MEDS: HYDROGEN PEROXIDE 3% 118 ML BOTTLE TP SCH ×2 (09:08→20:15)
[2017-08-05] MEDS: CALMOSEPTINE 113 GM OINTMENT TP SCH ×2 (09:08→20:15)
[2017-08-05] MEDS: SERTRALINE HCL 50 MG TABLET GT SCH (09:08)
[2017-08-05] MEDS: SIMETHICONE 40 MG/0.6 ML, 30ML BOTTLE GT SCH ×3 (09:08→16:46)
[2017-08-05] MEDS: METOPROLOL TARTRATE 50 MG TABLET GT SCH ×2 (09:08→20:17)
[2017-08-05 20:00] VITALS: BP 103/70
[2017-08-05] MEDS: ASCORBIC ACID 500 MG TABLET PO SCH (20:14)
[2017-08-06] MEDS: OMEPRAZOLE 20 MG CAPSULE.DR GT SCH (05:44)
[2017-08-06] MEDS: MULTIVIT, IRON, MIN NO. 8, FA TABLET GT SCH (05:44)
[2017-08-06 08:00] VITALS: BP_SYST 100; BP_SYST 115; BP_DIAS 60; BP_DIAS 76
[2017-08-06] MEDS: HYDROGEN PEROXIDE 3% 118 ML BOTTLE TP SCH ×2 (09:00→20:34)
[2017-08-06] MEDS: SIMETHICONE 40 MG/0.6 ML, 30ML BOTTLE GT SCH ×3 (09:00→16:15)
[2017-08-06] MEDS: SERTRALINE HCL 50 MG TABLET GT SCH (09:00)
[2017-08-06] MEDS: DOCUSATE SODIUM 100 MG/10 ML LIQUID UDC GT SCH ×2 (09:00→20:33)
[2017-08-06] MEDS: BACLOFEN 20 MG TABLET GT SCH ×4 (09:00→20:33)
[2017-08-06] MEDS: NUTRISOURCE FIBER 4 GM PACKET GT SCH ×2 (09:00→20:34)
[2017-08-06] MEDS: METOPROLOL TARTRATE 50 MG TABLET GT SCH ×2 (09:00→20:34)
[2017-08-06] MEDS: CALMOSEPTINE 113 GM OINTMENT TP SCH ×2 (09:00→20:34)
[2017-08-06] MEDS: ACIDOPHILUS/BULGARICUS CHEW TAB GT SCH ×2 (09:00→20:33)
[2017-08-06] MEDS ORDERED: DIATR MEGLU/DIATRIZOATE SODIUM 30 ML SOLUTION ONE (10:35)
--- NOTE | 2017-08-06 12:00 | NUR ---
Gtube found out of place this morning, re-inserted gtube fr #20 without difficulty, tolerated well, Kub with Gastrografin showed tube in placed, Dalia Rodriguez here and notified of patient's condition, no n/v, abdomen soft non-distended, bowel sounds present, continue monitoring.
[2017-08-06 20:17] VITALS: BP 108/71
[2017-08-06] MEDS: ASCORBIC ACID 500 MG TABLET PO SCH (20:34)
[2017-08-07] MEDS: OMEPRAZOLE 20 MG CAPSULE.DR GT SCH (06:15)
[2017-08-07 08:00] VITALS: BP 103/68
[2017-08-07] MEDS: BACLOFEN 20 MG TABLET GT SCH ×4 (08:44→20:56)
[2017-08-07] MEDS: ACIDOPHILUS/BULGARICUS CHEW TAB GT SCH ×2 (08:44→20:56)
[2017-08-07] MEDS: DOCUSATE SODIUM 100 MG/10 ML LIQUID UDC GT SCH ×2 (08:44→20:56)
[2017-08-07] MEDS: SIMETHICONE 40 MG/0.6 ML, 30ML BOTTLE GT SCH ×3 (08:45→17:00)
[2017-08-07] MEDS: CALMOSEPTINE 113 GM OINTMENT TP SCH ×2 (08:45→20:57)
[2017-08-07] MEDS: NUTRISOURCE FIBER 4 GM PACKET GT SCH ×2 (08:45→20:57)
[2017-08-07] MEDS: SERTRALINE HCL 50 MG TABLET GT SCH (08:45)
[2017-08-07] MEDS: METOPROLOL TARTRATE 50 MG TABLET GT SCH ×2 (08:45→20:56)
[2017-08-07] MEDS: HYDROGEN PEROXIDE 3% 118 ML BOTTLE TP SCH ×2 (08:46→20:57)
[2017-08-07] MEDS: DIABETICSOURCE AC 1000ML LIQUID GT PRN (10:53)
--- NOTE | 2017-08-07 13:00 | NUR ---
Seen and examined by DR Heaton with no new orders noted.
--- NOTE | 2017-08-07 16:41 | NUR ---
INTERDISCIPLINARY PLAN OF CARE CONFERENCE was held today. Patient's family was invited to the meeting, but they were unable to attend. Dr. Heaton and the Interdisciplinary Team reviewed the current plan of care in detail. RN provided updates on patient's medical condition. See RN IDT conference notes. No major changes were reported. See also all other disciplines IDT notes and physician's progress notes for additional details.
--- NOTE | 2017-08-07 17:01 | NUR ---
Pharmacy Update from today's 08/07/17 IDT Meeting VS: Temp 98 BP 103/33 HR 64 LABS: (from 02/05/17, no new labs) Wbc 6.9H/H 12.3/39.3Plt 321 Na 143K 3.6Cl 105CO2 30BUN/SCr 19/0.7 BS 113 Ca 9.2 MEDICATION USE REVIEWED: > Pt is not on any anti-epileptic medications > Pt is on Zoloft 50mg daily for depression m/b episodes of crying; No GDR planned for pt d/t contraindication of persisten cry episodes and repeated failed GDRs in the past (see MD note). Patient had no cry episodes in Jun (previously x0 Jun, x0 July, x1 August, x0 September, x0 October, x1 November, x1 Aug, x0 Sept, x2 Oct, x4 Nov, x0 Dec, x7 Sahil) > Pt is on depo-provera [id number] for heavy menstruation, last given 07/04/16 > PRN MED USAGE: (Jun) Tylenol 650mg for mild pain used x0 Tylenol for temp x0 Tylenol 1000mg mod pain x0 [place] severe pain x0 Bisacodyl x0 Immodium x0 NEW ORDERS NOTED: > NA Patient was reviewed and discussed in depth, no medication concerns at this time. Cry episodes which were elevated in May have resolved with none in June. Patient stable at this time. Will follow
[2017-08-07 20:21] VITALS: BP 114/73
[2017-08-07] MEDS: ASCORBIC ACID 500 MG TABLET PO SCH (20:57)
[2017-08-08] MEDS: MULTIVIT, IRON, MIN NO. 8, FA TABLET GT SCH (06:00)
[2017-08-08] MEDS: OMEPRAZOLE 20 MG CAPSULE.DR GT SCH (06:00)
[2017-08-08] MEDS: ACIDOPHILUS/BULGARICUS CHEW TAB GT SCH ×2 (08:21→21:09)
[2017-08-08] MEDS: DOCUSATE SODIUM 100 MG/10 ML LIQUID UDC GT SCH ×2 (08:21→21:09)
[2017-08-08] MEDS: BACLOFEN 20 MG TABLET GT SCH ×4 (08:21→21:09)
[2017-08-08] MEDS: NUTRISOURCE FIBER 4 GM PACKET GT SCH ×2 (08:22→21:10)
[2017-08-08] MEDS: METOPROLOL TARTRATE 50 MG TABLET GT SCH ×2 (08:22→21:10)
[2017-08-08] MEDS: SIMETHICONE 40 MG/0.6 ML, 30ML BOTTLE GT SCH ×3 (08:22→16:45)
[2017-08-08] MEDS: HYDROGEN PEROXIDE 3% 118 ML BOTTLE TP SCH ×2 (08:23→21:10)
[2017-08-08] MEDS: CALMOSEPTINE 113 GM OINTMENT TP SCH ×2 (08:23→21:10)
[2017-08-08] MEDS: SERTRALINE HCL 50 MG TABLET GT SCH (08:23)
[2017-08-08 09:28] VITALS: BP 120/70
[2017-08-08] MEDS: DIABETICSOURCE AC 1000ML LIQUID GT PRN (10:49)
[2017-08-08 20:08] VITALS: BP 101/65
[2017-08-08] MEDS: ASCORBIC ACID 500 MG TABLET PO SCH (21:10)
[2017-08-09] MEDS: OMEPRAZOLE 20 MG CAPSULE.DR GT SCH (05:08)
--- NOTE | 2017-08-09 08:00 | NUR ---
PATIENT RECEIVED IN BED, ASLEEP, AFEBRILE, NO S/S OF RESP. DISTRESS, NO DISCOMFORT NOTED, SKIN GRAHAM/DRY/INTACT, ABD. SOFT/NON-DISTENDED, GT SITE CLEAN, DRY, NO LEAK, NO REDNESS NOTED. TRACH TUBE SECURED/PATENT AT MIDLINE VIA TRACH MASK. Addendum: 08/10/17 at 1105 by JACEK PEREZ LVN SKIN WARM/DRY/INTACT.
[2017-08-09] MEDS: SIMETHICONE 40 MG/0.6 ML, 30ML BOTTLE GT SCH ×3 (09:45→17:08)
[2017-08-09] MEDS: DOCUSATE SODIUM 100 MG/10 ML LIQUID UDC GT SCH ×2 (09:45→20:28)
[2017-08-09] MEDS: CALMOSEPTINE 113 GM OINTMENT TP SCH ×2 (09:45→20:32)
[2017-08-09] MEDS: SERTRALINE HCL 50 MG TABLET GT SCH (09:45)
[2017-08-09] MEDS: NUTRISOURCE FIBER 4 GM PACKET GT SCH ×2 (09:45→20:31)
[2017-08-09] MEDS: ACIDOPHILUS/BULGARICUS CHEW TAB GT SCH ×2 (09:45→20:28)
[2017-08-09] MEDS: BACLOFEN 20 MG TABLET GT SCH ×4 (09:45→20:28)
[2017-08-09] MEDS: HYDROGEN PEROXIDE 3% 118 ML BOTTLE TP SCH ×2 (09:46→20:32)
[2017-08-09] MEDS: DIABETICSOURCE AC 1000ML LIQUID GT PRN (09:46)
[2017-08-09] MEDS: METOPROLOL TARTRATE 50 MG TABLET GT SCH ×2 (09:47→20:31)
[2017-08-09 11:46] VITALS: BP 104/65
[2017-08-09 20:07] VITALS: BP 144/66
[2017-08-09] MEDS: ASCORBIC ACID 500 MG TABLET PO SCH (20:32)
[2017-08-09] MEDS: ACETAMINOPHEN 650 MG/20 ML UDC- SA PATIENTS-PAIN ONLY GT PRN (20:33)
--- NOTE | 2017-08-09 23:52 | NUR ---
Seen and examined by JANY Isaac with no new order.
[2017-08-10] MEDS: OMEPRAZOLE 20 MG CAPSULE.DR GT SCH (05:34)
[2017-08-10] MEDS: MULTIVIT, IRON, MIN NO. 8, FA TABLET GT SCH (05:34)
[2017-08-10] MEDS: BACLOFEN 20 MG TABLET GT SCH ×4 (08:22→21:26)
[2017-08-10] MEDS: DOCUSATE SODIUM 100 MG/10 ML LIQUID UDC GT SCH ×2 (08:22→21:26)
[2017-08-10] MEDS: ACIDOPHILUS/BULGARICUS CHEW TAB GT SCH ×2 (08:22→21:26)
[2017-08-10] MEDS: SIMETHICONE 40 MG/0.6 ML, 30ML BOTTLE GT SCH ×3 (08:22→17:08)
[2017-08-10] MEDS: METOPROLOL TARTRATE 50 MG TABLET GT SCH ×2 (08:22→21:27)
[2017-08-10] MEDS: CALMOSEPTINE 113 GM OINTMENT TP SCH ×2 (08:23→21:27)
[2017-08-10] MEDS: HYDROGEN PEROXIDE 3% 118 ML BOTTLE TP SCH ×2 (08:23→21:27)
[2017-08-10] MEDS: DIABETICSOURCE AC 1000ML LIQUID GT PRN (08:23)
[2017-08-10] MEDS: SERTRALINE HCL 50 MG TABLET GT SCH (08:23)
[2017-08-10] MEDS: NUTRISOURCE FIBER 4 GM PACKET GT SCH ×2 (08:23→21:27)
[2017-08-10 10:25] VITALS: BP 108/71
[2017-08-10] MEDS: ASCORBIC ACID 500 MG TABLET PO SCH (21:27)
[2017-08-10 23:12] VITALS: BP 124/124
[2017-08-11] MEDS: OMEPRAZOLE 20 MG CAPSULE.DR GT SCH (05:39)
[2017-08-11] MEDS: ACIDOPHILUS/BULGARICUS CHEW TAB GT SCH ×2 (09:19→21:08)
[2017-08-11] MEDS: DOCUSATE SODIUM 100 MG/10 ML LIQUID UDC GT SCH ×2 (09:19→21:08)
[2017-08-11] MEDS: BACLOFEN 20 MG TABLET GT SCH ×4 (09:19→21:08)
[2017-08-11] MEDS: SIMETHICONE 40 MG/0.6 ML, 30ML BOTTLE GT SCH ×3 (09:22→17:14)
[2017-08-11] MEDS: CALMOSEPTINE 113 GM OINTMENT TP SCH ×2 (09:22→21:09)
[2017-08-11] MEDS: METOPROLOL TARTRATE 50 MG TABLET GT SCH ×2 (09:22→21:09)
[2017-08-11] MEDS: HYDROGEN PEROXIDE 3% 118 ML BOTTLE TP SCH ×2 (09:22→21:09)
[2017-08-11] MEDS: NUTRISOURCE FIBER 4 GM PACKET GT SCH ×2 (09:22→21:09)
[2017-08-11] MEDS: SERTRALINE HCL 50 MG TABLET GT SCH (09:22)
[2017-08-11 11:18] VITALS: BP 116/71
--- NOTE | 2017-08-11 18:05 | NUR ---
SEEN BY DR. COUCH (PODIATRIST0 AND NNO.
[2017-08-11] MEDS: ASCORBIC ACID 500 MG TABLET PO SCH (21:09)
[2017-08-11 23:18] VITALS: BP 106/76
[2017-08-12] MEDS: MULTIVIT, IRON, MIN NO. 8, FA TABLET GT SCH (06:07)
[2017-08-12] MEDS: OMEPRAZOLE 20 MG CAPSULE.DR GT SCH (06:07)
[2017-08-12] MEDS: SIMETHICONE 40 MG/0.6 ML, 30ML BOTTLE GT SCH ×3 (08:19→16:40)
[2017-08-12] MEDS: BACLOFEN 20 MG TABLET GT SCH ×4 (08:19→21:25)
[2017-08-12] MEDS: METOPROLOL TARTRATE 50 MG TABLET GT SCH ×2 (08:19→21:25)
[2017-08-12] MEDS: SERTRALINE HCL 50 MG TABLET GT SCH (08:19)
[2017-08-12] MEDS: CALMOSEPTINE 113 GM OINTMENT TP SCH ×2 (08:19→21:25)
[2017-08-12] MEDS: NUTRISOURCE FIBER 4 GM PACKET GT SCH ×2 (08:19→21:25)
[2017-08-12] MEDS: ACIDOPHILUS/BULGARICUS CHEW TAB GT SCH ×2 (08:19→21:25)
[2017-08-12] MEDS: DOCUSATE SODIUM 100 MG/10 ML LIQUID UDC GT SCH ×2 (08:19→21:25)
[2017-08-12] MEDS: HYDROGEN PEROXIDE 3% 118 ML BOTTLE TP SCH ×2 (08:20→21:26)
[2017-08-12] MEDS: ASCORBIC ACID 500 MG TABLET PO SCH (21:25)
[2017-08-12 22:44] VITALS: BP 118/76
[2017-08-13] MEDS: OMEPRAZOLE 20 MG CAPSULE.DR GT SCH (05:51)
[2017-08-13 08:08] VITALS: BP 106/71
[2017-08-13] MEDS: ACIDOPHILUS/BULGARICUS CHEW TAB GT SCH ×2 (09:24→21:38)
[2017-08-13] MEDS: DOCUSATE SODIUM 100 MG/10 ML LIQUID UDC GT SCH ×2 (09:24→21:38)
[2017-08-13] MEDS: METOPROLOL TARTRATE 50 MG TABLET GT SCH ×2 (09:25→21:39)
[2017-08-13] MEDS: BACLOFEN 20 MG TABLET GT SCH ×4 (09:25→21:39)
[2017-08-13] MEDS: SIMETHICONE 40 MG/0.6 ML, 30ML BOTTLE GT SCH ×3 (09:25→16:26)
[2017-08-13] MEDS: CALMOSEPTINE 113 GM OINTMENT TP SCH ×2 (09:26→21:40)
[2017-08-13] MEDS: SERTRALINE HCL 50 MG TABLET GT SCH (09:26)
[2017-08-13] MEDS: NUTRISOURCE FIBER 4 GM PACKET GT SCH ×2 (09:26→21:39)
[2017-08-13] MEDS: HYDROGEN PEROXIDE 3% 118 ML BOTTLE TP SCH ×2 (09:26→21:40)
[2017-08-13] MEDS: DIABETICSOURCE AC 1000ML LIQUID GT PRN (13:08)
[2017-08-13 20:00] VITALS: BP 138/85
[2017-08-13] MEDS: ASCORBIC ACID 500 MG TABLET PO SCH (21:40)
[2017-08-14] MEDS: MULTIVIT, IRON, MIN NO. 8, FA TABLET GT SCH (05:34)
[2017-08-14] MEDS: OMEPRAZOLE 20 MG CAPSULE.DR GT SCH (05:34)
[2017-08-14 08:08] VITALS: BP 143/84
[2017-08-14] MEDS: ACIDOPHILUS/BULGARICUS CHEW TAB GT SCH ×2 (09:52→20:42)
[2017-08-14] MEDS: DOCUSATE SODIUM 100 MG/10 ML LIQUID UDC GT SCH ×2 (09:52→20:42)
[2017-08-14] MEDS: BACLOFEN 20 MG TABLET GT SCH ×4 (09:52→20:42)
[2017-08-14] MEDS: METOPROLOL TARTRATE 50 MG TABLET GT SCH ×2 (09:53→20:44)
[2017-08-14] MEDS: SERTRALINE HCL 50 MG TABLET GT SCH (09:53)
[2017-08-14] MEDS: NUTRISOURCE FIBER 4 GM PACKET GT SCH ×2 (09:53→20:42)
[2017-08-14] MEDS: SIMETHICONE 40 MG/0.6 ML, 30ML BOTTLE GT SCH ×3 (09:53→16:56)
[2017-08-14] MEDS: CALMOSEPTINE 113 GM OINTMENT TP SCH ×2 (09:54→20:45)
[2017-08-14] MEDS: HYDROGEN PEROXIDE 3% 118 ML BOTTLE TP SCH ×2 (09:54→20:45)
[2017-08-14] MEDS: ACETAMINOPHEN 650 MG/20 ML UDC- SA PATIENTS-PAIN ONLY GT PRN (09:55)
[2017-08-14] MEDS: DIABETICSOURCE AC 1000ML LIQUID GT PRN (13:07)
[2017-08-14 20:00] VITALS: BP 124/76
[2017-08-14] MEDS: ASCORBIC ACID 500 MG TABLET PO SCH (20:44)
[2017-08-15] MEDS: OMEPRAZOLE 20 MG CAPSULE.DR GT SCH (06:06)
[2017-08-15] MEDS: ACIDOPHILUS/BULGARICUS CHEW TAB GT SCH ×2 (07:30→20:44)
[2017-08-15] MEDS: NUTRISOURCE FIBER 4 GM PACKET GT SCH ×2 (07:38→20:46)
[2017-08-15] MEDS: CALMOSEPTINE 113 GM OINTMENT TP SCH ×2 (07:39→20:46)
[2017-08-15] MEDS: SERTRALINE HCL 50 MG TABLET GT SCH (07:39)
[2017-08-15] MEDS: HYDROGEN PEROXIDE 3% 118 ML BOTTLE TP SCH ×2 (07:39→20:46)
[2017-08-15] MEDS: BACLOFEN 20 MG TABLET GT SCH ×4 (07:40→20:45)
[2017-08-15] MEDS: SIMETHICONE 40 MG/0.6 ML, 30ML BOTTLE GT SCH ×3 (07:40→17:20)
[2017-08-15] MEDS: DOCUSATE SODIUM 100 MG/10 ML LIQUID UDC GT SCH ×2 (07:43→20:44)
[2017-08-15] MEDS: METOPROLOL TARTRATE 50 MG TABLET GT SCH ×2 (07:50→20:46)
[2017-08-15 08:10] VITALS: BP 114/68
[2017-08-15] MEDS: DIABETICSOURCE AC 1000ML LIQUID GT PRN (15:53)
--- NOTE | 2017-08-15 16:01 | NUR ---
seen and examined by Wilma Rodriguez,no new orders noted.
--- NOTE | 2017-08-15 16:24 | NUR ---
seen and examined by Dr Heaton,no new orders.
[2017-08-15 20:00] VITALS: BP 117/76
[2017-08-15] MEDS: ASCORBIC ACID 500 MG TABLET PO SCH (20:46)
[2017-08-16] MEDS: MULTIVIT, IRON, MIN NO. 8, FA TABLET GT SCH (05:35)
[2017-08-16] MEDS: OMEPRAZOLE 20 MG CAPSULE.DR GT SCH (05:35)
[2017-08-16] MEDS: BACLOFEN 20 MG TABLET GT SCH ×4 (08:37→20:59)
[2017-08-16] MEDS: DOCUSATE SODIUM 100 MG/10 ML LIQUID UDC GT SCH ×2 (08:37→20:59)
[2017-08-16] MEDS: ACIDOPHILUS/BULGARICUS CHEW TAB GT SCH ×2 (08:37→20:59)
[2017-08-16] MEDS: NUTRISOURCE FIBER 4 GM PACKET GT SCH ×2 (08:41→21:00)
[2017-08-16] MEDS: METOPROLOL TARTRATE 50 MG TABLET GT SCH ×2 (08:41→21:00)
[2017-08-16] MEDS: SERTRALINE HCL 50 MG TABLET GT SCH (08:41)
[2017-08-16] MEDS: CALMOSEPTINE 113 GM OINTMENT TP SCH ×2 (08:41→21:01)
[2017-08-16] MEDS: SIMETHICONE 40 MG/0.6 ML, 30ML BOTTLE GT SCH ×3 (08:41→17:20)
[2017-08-16] MEDS: HYDROGEN PEROXIDE 3% 118 ML BOTTLE TP SCH ×2 (08:41→21:01)
--- NOTE | 2017-08-16 09:00 | NUR ---
Seen by Dalia Rodriguez with no new order.
[2017-08-16 11:25] VITALS: BP 102/64
[2017-08-16] MEDS: DIABETICSOURCE AC 1000ML LIQUID GT PRN (15:20)
[2017-08-16] MEDS: ASCORBIC ACID 500 MG TABLET PO SCH (21:00)
[2017-08-17 01:08] VITALS: BP 116/70
[2017-08-17] MEDS: OMEPRAZOLE 20 MG CAPSULE.DR GT SCH (05:28)
[2017-08-17 08:00] VITALS: BP 106/64
[2017-08-17] MEDS: ACIDOPHILUS/BULGARICUS CHEW TAB GT SCH ×2 (09:50→21:25)
[2017-08-17] MEDS: DOCUSATE SODIUM 100 MG/10 ML LIQUID UDC GT SCH ×2 (09:50→21:25)
[2017-08-17] MEDS: BACLOFEN 20 MG TABLET GT SCH ×4 (09:50→21:25)
[2017-08-17] MEDS: METOPROLOL TARTRATE 50 MG TABLET GT SCH ×2 (09:51→21:26)
[2017-08-17] MEDS: NUTRISOURCE FIBER 4 GM PACKET GT SCH ×2 (09:51→21:27)
[2017-08-17] MEDS: CALMOSEPTINE 113 GM OINTMENT TP SCH ×2 (09:51→21:27)
[2017-08-17] MEDS: HYDROGEN PEROXIDE 3% 118 ML BOTTLE TP SCH ×2 (09:51→21:27)
[2017-08-17] MEDS: SERTRALINE HCL 50 MG TABLET GT SCH (09:51)
[2017-08-17] MEDS: SIMETHICONE 40 MG/0.6 ML, 30ML BOTTLE GT SCH ×3 (09:51→17:11)
[2017-08-17 20:36] VITALS: BP 114/78
[2017-08-17] MEDS: ASCORBIC ACID 500 MG TABLET PO SCH (21:27)
[2017-08-18] MEDS: DIABETICSOURCE AC 1000ML LIQUID GT PRN (02:06)
[2017-08-18] MEDS: OMEPRAZOLE 20 MG CAPSULE.DR GT SCH (05:11)
[2017-08-18] MEDS: MULTIVIT, IRON, MIN NO. 8, FA TABLET GT SCH (05:55)
[2017-08-18 08:00] VITALS: BP 125/71
[2017-08-18] MEDS: SIMETHICONE 40 MG/0.6 ML, 30ML BOTTLE GT SCH ×3 (08:17→16:37)
[2017-08-18] MEDS: BACLOFEN 20 MG TABLET GT SCH ×4 (08:17→21:00)
[2017-08-18] MEDS: ACIDOPHILUS/BULGARICUS CHEW TAB GT SCH ×2 (08:17→21:00)
[2017-08-18] MEDS: METOPROLOL TARTRATE 50 MG TABLET GT SCH ×2 (08:17→21:00)
[2017-08-18] MEDS: DOCUSATE SODIUM 100 MG/10 ML LIQUID UDC GT SCH ×2 (08:17→21:00)
[2017-08-18] MEDS: NUTRISOURCE FIBER 4 GM PACKET GT SCH ×2 (08:18→21:00)
[2017-08-18] MEDS: SERTRALINE HCL 50 MG TABLET GT SCH (08:18)
[2017-08-18] MEDS: CALMOSEPTINE 113 GM OINTMENT TP SCH ×2 (08:18→21:00)
[2017-08-18] MEDS: HYDROGEN PEROXIDE 3% 118 ML BOTTLE TP SCH ×2 (08:18→21:00)
[2017-08-18 20:10] VITALS: BP 108/66
[2017-08-18] MEDS: ASCORBIC ACID 500 MG TABLET PO SCH (21:00)
[2017-08-19] MEDS: OMEPRAZOLE 20 MG CAPSULE.DR GT SCH (05:15)
[2017-08-19 08:09] VITALS: BP 108/70
[2017-08-19] MEDS: ACIDOPHILUS/BULGARICUS CHEW TAB GT SCH ×2 (08:39→21:52)
[2017-08-19] MEDS: HYDROGEN PEROXIDE 3% 118 ML BOTTLE TP SCH ×2 (08:39→21:53)
[2017-08-19] MEDS: CALMOSEPTINE 113 GM OINTMENT TP SCH ×2 (08:39→21:53)
[2017-08-19] MEDS: SIMETHICONE 40 MG/0.6 ML, 30ML BOTTLE GT SCH ×3 (08:39→17:23)
[2017-08-19] MEDS: SERTRALINE HCL 50 MG TABLET GT SCH (08:39)
[2017-08-19] MEDS: BACLOFEN 20 MG TABLET GT SCH ×4 (08:39→21:52)
[2017-08-19] MEDS: METOPROLOL TARTRATE 50 MG TABLET GT SCH ×2 (08:39→21:53)
[2017-08-19] MEDS: DOCUSATE SODIUM 100 MG/10 ML LIQUID UDC GT SCH ×2 (08:39→21:52)
[2017-08-19] MEDS: NUTRISOURCE FIBER 4 GM PACKET GT SCH ×2 (08:40→21:53)
[2017-08-19 20:28] VITALS: BP 113/72
[2017-08-19] MEDS: ASCORBIC ACID 500 MG TABLET PO SCH (21:53)
[2017-08-20] MEDS: OMEPRAZOLE 20 MG CAPSULE.DR GT SCH (06:29)
[2017-08-20] MEDS: MULTIVIT, IRON, MIN NO. 8, FA TABLET GT SCH (06:29)
[2017-08-20 08:10] VITALS: BP 134/87
[2017-08-20] MEDS: BACLOFEN 20 MG TABLET GT SCH ×4 (08:53→21:48)
[2017-08-20] MEDS: ACIDOPHILUS/BULGARICUS CHEW TAB GT SCH ×2 (08:53→21:48)
[2017-08-20] MEDS: DOCUSATE SODIUM 100 MG/10 ML LIQUID UDC GT SCH ×2 (08:53→21:48)
[2017-08-20] MEDS: CALMOSEPTINE 113 GM OINTMENT TP SCH ×2 (08:54→21:48)
[2017-08-20] MEDS: SERTRALINE HCL 50 MG TABLET GT SCH (08:54)
[2017-08-20] MEDS: SIMETHICONE 40 MG/0.6 ML, 30ML BOTTLE GT SCH ×3 (08:54→17:13)
[2017-08-20] MEDS: METOPROLOL TARTRATE 50 MG TABLET GT SCH ×2 (08:54→21:48)
[2017-08-20] MEDS: NUTRISOURCE FIBER 4 GM PACKET GT SCH ×2 (08:54→21:48)
[2017-08-20] MEDS: HYDROGEN PEROXIDE 3% 118 ML BOTTLE TP SCH ×2 (08:55→21:48)
[2017-08-20 20:00] VITALS: BP 128/81
[2017-08-20] MEDS: ASCORBIC ACID 500 MG TABLET PO SCH (21:48)
[2017-08-21] MEDS: OMEPRAZOLE 20 MG CAPSULE.DR GT SCH (06:38)
[2017-08-21 08:09] VITALS: BP 106/71
[2017-08-21] MEDS: DOCUSATE SODIUM 100 MG/10 ML LIQUID UDC GT SCH ×2 (09:03→20:51)
[2017-08-21] MEDS: BACLOFEN 20 MG TABLET GT SCH ×4 (09:03→20:51)
[2017-08-21] MEDS: ACIDOPHILUS/BULGARICUS CHEW TAB GT SCH ×2 (09:03→20:51)
[2017-08-21] MEDS: METOPROLOL TARTRATE 50 MG TABLET GT SCH ×2 (09:04→20:51)
[2017-08-21] MEDS: SIMETHICONE 40 MG/0.6 ML, 30ML BOTTLE GT SCH ×3 (09:04→16:21)
[2017-08-21] MEDS: SERTRALINE HCL 50 MG TABLET GT SCH (09:04)
[2017-08-21] MEDS: CALMOSEPTINE 113 GM OINTMENT TP SCH ×2 (09:04→20:52)
[2017-08-21] MEDS: NUTRISOURCE FIBER 4 GM PACKET GT SCH ×2 (09:04→20:52)
[2017-08-21] MEDS: HYDROGEN PEROXIDE 3% 118 ML BOTTLE TP SCH ×2 (09:04→20:52)
--- NOTE | 2017-08-21 14:28 | NUR ---
SEEN AND EXAMINED BY JULES CARMICHAEL,NO NEW ORDERS NOTED.
[2017-08-21 20:00] VITALS: BP 122/71
[2017-08-21] MEDS: ASCORBIC ACID 500 MG TABLET PO SCH (20:52)
[2017-08-22] MEDS: DIABETICSOURCE AC 1000ML LIQUID GT PRN (05:14)
[2017-08-22] MEDS: OMEPRAZOLE 20 MG CAPSULE.DR GT SCH (05:14)
[2017-08-22] MEDS: MULTIVIT, IRON, MIN NO. 8, FA TABLET GT SCH (06:11)
[2017-08-22 08:07] VITALS: BP 118/85
[2017-08-22] MEDS: DOCUSATE SODIUM 100 MG/10 ML LIQUID UDC GT SCH ×2 (08:54→21:01)
[2017-08-22] MEDS: BACLOFEN 20 MG TABLET GT SCH ×4 (08:54→21:01)
[2017-08-22] MEDS: ACIDOPHILUS/BULGARICUS CHEW TAB GT SCH ×2 (08:54→21:01)
[2017-08-22] MEDS: CALMOSEPTINE 113 GM OINTMENT TP SCH ×2 (08:55→21:03)
[2017-08-22] MEDS: NUTRISOURCE FIBER 4 GM PACKET GT SCH ×2 (08:55→21:02)
[2017-08-22] MEDS: SIMETHICONE 40 MG/0.6 ML, 30ML BOTTLE GT SCH ×3 (08:55→16:48)
[2017-08-22] MEDS: SERTRALINE HCL 50 MG TABLET GT SCH (08:55)
[2017-08-22] MEDS: HYDROGEN PEROXIDE 3% 118 ML BOTTLE TP SCH ×2 (08:55→21:03)
[2017-08-22] MEDS: METOPROLOL TARTRATE 50 MG TABLET GT SCH ×2 (08:55→21:02)
--- NOTE | 2017-08-22 18:51 | NUR ---
SEEN AND EXAMINED BY DR OGLESBY,WITH NEW ORDERS NOTED,FOR SEBORRHEIC DERMATITIS.
[2017-08-22] MEDS: ASCORBIC ACID 500 MG TABLET PO SCH (21:03)
[2017-08-22 23:24] VITALS: BP 120/71
[2017-08-23] MEDS: DIABETICSOURCE AC 1000ML LIQUID GT PRN (04:30)
[2017-08-23] MEDS: OMEPRAZOLE 20 MG CAPSULE.DR GT SCH (05:30)
[2017-08-23] MEDS: CALMOSEPTINE 113 GM OINTMENT TP SCH ×2 (08:23→21:13)
[2017-08-23] MEDS: NUTRISOURCE FIBER 4 GM PACKET GT SCH ×2 (08:23→21:12)
[2017-08-23] MEDS: SERTRALINE HCL 50 MG TABLET GT SCH (08:23)
[2017-08-23] MEDS: BACLOFEN 20 MG TABLET GT SCH ×4 (08:23→21:10)
[2017-08-23] MEDS: METOPROLOL TARTRATE 50 MG TABLET GT SCH ×2 (08:23→21:12)
[2017-08-23] MEDS: ACIDOPHILUS/BULGARICUS CHEW TAB GT SCH ×2 (08:23→21:09)
[2017-08-23] MEDS: DOCUSATE SODIUM 100 MG/10 ML LIQUID UDC GT SCH ×2 (08:23→21:08)
[2017-08-23] MEDS: SIMETHICONE 40 MG/0.6 ML, 30ML BOTTLE GT SCH ×3 (08:23→16:47)
[2017-08-23] MEDS: HYDROGEN PEROXIDE 3% 118 ML BOTTLE TP SCH ×2 (08:24→21:13)
[2017-08-23 14:57] VITALS: BP 112/67
[2017-08-23] MEDS: KETOCONAZOLE 2% SHAMPOO 120 ML BOTTLE TP SCH (17:42)
[2017-08-23 20:00] VITALS: BP 117/78
[2017-08-23] MEDS: ASCORBIC ACID 500 MG TABLET PO SCH (21:12)
[2017-08-24] MEDS: OMEPRAZOLE 20 MG CAPSULE.DR GT SCH (05:19)
[2017-08-24] MEDS: MULTIVIT, IRON, MIN NO. 8, FA TABLET GT SCH (05:37)
[2017-08-24] MEDS: DOCUSATE SODIUM 100 MG/10 ML LIQUID UDC GT SCH ×2 (08:20→20:28)
[2017-08-24] MEDS: ACIDOPHILUS/BULGARICUS CHEW TAB GT SCH ×2 (08:21→20:28)
[2017-08-24] MEDS: BACLOFEN 20 MG TABLET GT SCH ×4 (08:21→20:28)
[2017-08-24] MEDS: METOPROLOL TARTRATE 50 MG TABLET GT SCH ×2 (08:22→20:28)
[2017-08-24] MEDS: NUTRISOURCE FIBER 4 GM PACKET GT SCH ×2 (08:23→20:28)
[2017-08-24] MEDS: SERTRALINE HCL 50 MG TABLET GT SCH (08:23)
[2017-08-24] MEDS: HYDROGEN PEROXIDE 3% 118 ML BOTTLE TP SCH ×2 (08:23→20:28)
[2017-08-24] MEDS: CALMOSEPTINE 113 GM OINTMENT TP SCH ×2 (08:23→20:28)
[2017-08-24] MEDS: SIMETHICONE 40 MG/0.6 ML, 30ML BOTTLE GT SCH ×3 (08:23→16:35)
[2017-08-24 13:08] VITALS: BP 97/62
[2017-08-24] MEDS: ASCORBIC ACID 500 MG TABLET PO SCH (20:28)
[2017-08-24 22:45] VITALS: BP 109/71
[2017-08-25] MEDS: DIABETICSOURCE AC 1000ML LIQUID GT PRN (04:30)
[2017-08-25] MEDS: OMEPRAZOLE 20 MG CAPSULE.DR GT SCH (05:46)
[2017-08-25] MEDS: DOCUSATE SODIUM 100 MG/10 ML LIQUID UDC GT SCH ×2 (08:55→20:39)
[2017-08-25] MEDS: SERTRALINE HCL 50 MG TABLET GT SCH (08:55)
[2017-08-25] MEDS: METOPROLOL TARTRATE 50 MG TABLET GT SCH ×2 (08:55→20:39)
[2017-08-25] MEDS: HYDROGEN PEROXIDE 3% 118 ML BOTTLE TP SCH ×2 (08:55→20:39)
[2017-08-25] MEDS: ACIDOPHILUS/BULGARICUS CHEW TAB GT SCH ×2 (08:55→20:39)
[2017-08-25] MEDS: BACLOFEN 20 MG TABLET GT SCH ×4 (08:55→20:39)
[2017-08-25] MEDS: NUTRISOURCE FIBER 4 GM PACKET GT SCH ×2 (08:55→20:39)
[2017-08-25] MEDS: SIMETHICONE 40 MG/0.6 ML, 30ML BOTTLE GT SCH ×3 (08:55→16:19)
[2017-08-25] MEDS: CALMOSEPTINE 113 GM OINTMENT TP SCH ×2 (08:55→20:39)
[2017-08-25 11:36] VITALS: BP 106/74
[2017-08-25] MEDS: ASCORBIC ACID 500 MG TABLET PO SCH (20:39)
[2017-08-25 23:07] VITALS: BP 112/74
[2017-08-26] MEDS: DIABETICSOURCE AC 1000ML LIQUID GT PRN (02:00)
[2017-08-26] MEDS: OMEPRAZOLE 20 MG CAPSULE.DR GT SCH (05:27)
[2017-08-26] MEDS: MULTIVIT, IRON, MIN NO. 8, FA TABLET GT SCH (05:34)
[2017-08-26 08:00] VITALS: BP 120/64
[2017-08-26] MEDS: CALMOSEPTINE 113 GM OINTMENT TP SCH ×2 (09:00→20:46)
[2017-08-26] MEDS: SERTRALINE HCL 50 MG TABLET GT SCH (09:00)
[2017-08-26] MEDS: ACIDOPHILUS/BULGARICUS CHEW TAB GT SCH ×2 (09:00→20:45)
[2017-08-26] MEDS: DOCUSATE SODIUM 100 MG/10 ML LIQUID UDC GT SCH ×2 (09:00→20:45)
[2017-08-26] MEDS: SIMETHICONE 40 MG/0.6 ML, 30ML BOTTLE GT SCH ×3 (09:00→17:52)
[2017-08-26] MEDS: METOPROLOL TARTRATE 50 MG TABLET GT SCH ×2 (09:00→20:46)
[2017-08-26] MEDS: HYDROGEN PEROXIDE 3% 118 ML BOTTLE TP SCH ×2 (09:00→20:46)
[2017-08-26] MEDS: BACLOFEN 20 MG TABLET GT SCH ×4 (09:00→20:45)
[2017-08-26] MEDS: NUTRISOURCE FIBER 4 GM PACKET GT SCH ×2 (09:00→20:46)
[2017-08-26] MEDS: ASCORBIC ACID 500 MG TABLET PO SCH (20:46)
[2017-08-26 22:00] VITALS: BP 119/78
[2017-08-27] MEDS: DIABETICSOURCE AC 1000ML LIQUID GT PRN (01:48)
[2017-08-27] MEDS: OMEPRAZOLE 20 MG CAPSULE.DR GT SCH (06:06)
[2017-08-27 08:07] VITALS: BP 102/77
[2017-08-27] MEDS: DOCUSATE SODIUM 100 MG/10 ML LIQUID UDC GT SCH ×2 (08:57→21:06)
[2017-08-27] MEDS: ACIDOPHILUS/BULGARICUS CHEW TAB GT SCH ×2 (08:58→21:06)
[2017-08-27] MEDS: SIMETHICONE 40 MG/0.6 ML, 30ML BOTTLE GT SCH ×3 (08:58→17:07)
[2017-08-27] MEDS: METOPROLOL TARTRATE 50 MG TABLET GT SCH ×2 (08:58→21:07)
[2017-08-27] MEDS: BACLOFEN 20 MG TABLET GT SCH ×4 (08:58→21:06)
[2017-08-27] MEDS: HYDROGEN PEROXIDE 3% 118 ML BOTTLE TP SCH ×2 (08:59→21:07)
[2017-08-27] MEDS: CALMOSEPTINE 113 GM OINTMENT TP SCH ×2 (08:59→21:07)
[2017-08-27] MEDS: NUTRISOURCE FIBER 4 GM PACKET GT SCH ×2 (08:59→21:07)
[2017-08-27] MEDS: SERTRALINE HCL 50 MG TABLET GT SCH (08:59)
--- NOTE | 2017-08-27 11:43 | NUR ---
SEEN BY GLENN MORGAN.
--- NOTE | 2017-08-27 14:06 | NUR ---
SEEN BY ABIEL MORGAN.
[2017-08-27] MEDS: KETOCONAZOLE 2% SHAMPOO 120 ML BOTTLE TP SCH (17:10)
[2017-08-27 20:34] VITALS: BP 124/83
[2017-08-27] MEDS: ASCORBIC ACID 500 MG TABLET PO SCH (21:07)
[2017-08-28] MEDS: DIABETICSOURCE AC 1000ML LIQUID GT PRN (03:44)
[2017-08-28] MEDS: OMEPRAZOLE 20 MG CAPSULE.DR GT SCH (05:30)
[2017-08-28] MEDS: MULTIVIT, IRON, MIN NO. 8, FA TABLET GT SCH (05:30)
[2017-08-28 08:06] VITALS: BP 131/81
[2017-08-28] MEDS: SIMETHICONE 40 MG/0.6 ML, 30ML BOTTLE GT SCH ×3 (09:33→17:03)
[2017-08-28] MEDS: METOPROLOL TARTRATE 50 MG TABLET GT SCH ×2 (09:33→21:13)
[2017-08-28] MEDS: NUTRISOURCE FIBER 4 GM PACKET GT SCH ×2 (09:33→21:13)
[2017-08-28] MEDS: ACIDOPHILUS/BULGARICUS CHEW TAB GT SCH ×2 (09:33→21:12)
[2017-08-28] MEDS: DOCUSATE SODIUM 100 MG/10 ML LIQUID UDC GT SCH ×2 (09:33→21:12)
[2017-08-28] MEDS: BACLOFEN 20 MG TABLET GT SCH ×4 (09:33→21:13)
[2017-08-28] MEDS: SERTRALINE HCL 50 MG TABLET GT SCH (09:34)
[2017-08-28] MEDS: CALMOSEPTINE 113 GM OINTMENT TP SCH ×2 (09:35→21:14)
[2017-08-28] MEDS: BISACODYL 10 MG SUPP.RECT RC PRN (09:35)
[2017-08-28] MEDS: HYDROGEN PEROXIDE 3% 118 ML BOTTLE TP SCH ×2 (09:35→21:14)
[2017-08-28 20:35] VITALS: BP 110/72
[2017-08-28] MEDS: ASCORBIC ACID 500 MG TABLET PO SCH (21:13)
[2017-08-29] MEDS: DIABETICSOURCE AC 1000ML LIQUID GT PRN (04:26)
[2017-08-29] MEDS: OMEPRAZOLE 20 MG CAPSULE.DR GT SCH (05:35)
[2017-08-29 08:09] VITALS: BP 121/90
[2017-08-29] MEDS: METOPROLOL TARTRATE 50 MG TABLET GT SCH ×2 (08:48→21:30)
[2017-08-29] MEDS: SERTRALINE HCL 50 MG TABLET GT SCH (08:48)
[2017-08-29] MEDS: SIMETHICONE 40 MG/0.6 ML, 30ML BOTTLE GT SCH ×3 (08:48→16:50)
[2017-08-29] MEDS: ACIDOPHILUS/BULGARICUS CHEW TAB GT SCH ×2 (08:48→21:30)
[2017-08-29] MEDS: DOCUSATE SODIUM 100 MG/10 ML LIQUID UDC GT SCH ×2 (08:48→21:30)
[2017-08-29] MEDS: NUTRISOURCE FIBER 4 GM PACKET GT SCH ×2 (08:48→21:30)
[2017-08-29] MEDS: HYDROGEN PEROXIDE 3% 118 ML BOTTLE TP SCH ×2 (08:48→21:31)
[2017-08-29] MEDS: BACLOFEN 20 MG TABLET GT SCH ×4 (08:48→21:30)
[2017-08-29] MEDS: CALMOSEPTINE 113 GM OINTMENT TP SCH ×2 (08:48→21:31)
--- NOTE | 2017-08-29 12:00 | NUR ---
SEEN AND EXAMINED BY DR OGLESBY,NO NEW ORDERS.
--- NOTE | 2017-08-29 14:00 | NUR ---
SEEN BY ABIEL MORGAN.
[2017-08-29 20:00] VITALS: BP 121/81
[2017-08-29] MEDS: ASCORBIC ACID 500 MG TABLET PO SCH (21:31)
[2017-08-30] MEDS: DIABETICSOURCE AC 1000ML LIQUID GT PRN (05:00)
[2017-08-30] MEDS: OMEPRAZOLE 20 MG CAPSULE.DR GT SCH (05:00)
[2017-08-30] MEDS: MULTIVIT, IRON, MIN NO. 8, FA TABLET GT SCH (05:53)
[2017-08-30] MEDS: DOCUSATE SODIUM 100 MG/10 ML LIQUID UDC GT SCH ×2 (08:01→21:13)
[2017-08-30] MEDS: ACIDOPHILUS/BULGARICUS CHEW TAB GT SCH ×2 (08:01→21:14)
[2017-08-30] MEDS: BACLOFEN 20 MG TABLET GT SCH ×4 (08:01→21:14)
[2017-08-30] MEDS: METOPROLOL TARTRATE 50 MG TABLET GT SCH ×2 (08:02→21:15)
[2017-08-30] MEDS: SERTRALINE HCL 50 MG TABLET GT SCH (08:02)
[2017-08-30] MEDS: HYDROGEN PEROXIDE 3% 118 ML BOTTLE TP SCH ×2 (08:02→21:15)
[2017-08-30] MEDS: NUTRISOURCE FIBER 4 GM PACKET GT SCH ×2 (08:02→21:15)
[2017-08-30] MEDS: SIMETHICONE 40 MG/0.6 ML, 30ML BOTTLE GT SCH ×3 (08:02→16:44)
[2017-08-30] MEDS: CALMOSEPTINE 113 GM OINTMENT TP SCH ×2 (08:02→21:15)
[2017-08-30] MEDS: ACETAMINOPHEN 650 MG/20 ML UDC- SA PATIENTS-PAIN ONLY GT PRN (08:03)
[2017-08-30 08:07] VITALS: BP 119/89
--- NOTE | 2017-08-30 11:30 | NUR ---
Seen by Dalia CARMICHAEL with no new order.
[2017-08-30] MEDS: KETOCONAZOLE 2% SHAMPOO 120 ML BOTTLE TP SCH (18:00)
[2017-08-30 20:28] VITALS: BP 117/75
[2017-08-30] MEDS: ASCORBIC ACID 500 MG TABLET PO SCH (21:15)
[2017-08-31] MEDS: DIABETICSOURCE AC 1000ML LIQUID GT PRN (05:06)
[2017-08-31] MEDS: OMEPRAZOLE 20 MG CAPSULE.DR GT SCH (05:06)
[2017-08-31 08:06] VITALS: BP 140/82
[2017-08-31] MEDS: ACIDOPHILUS/BULGARICUS CHEW TAB GT SCH ×2 (08:45→21:47)
[2017-08-31] MEDS: BACLOFEN 20 MG TABLET GT SCH ×4 (08:45→21:47)
[2017-08-31] MEDS: DOCUSATE SODIUM 100 MG/10 ML LIQUID UDC GT SCH ×2 (08:45→21:47)
[2017-08-31] MEDS: METOPROLOL TARTRATE 50 MG TABLET GT SCH ×2 (08:46→21:47)
[2017-08-31] MEDS: SIMETHICONE 40 MG/0.6 ML, 30ML BOTTLE GT SCH ×3 (08:46→16:58)
[2017-08-31] MEDS: NUTRISOURCE FIBER 4 GM PACKET GT SCH ×2 (08:46→21:47)
[2017-08-31] MEDS: CALMOSEPTINE 113 GM OINTMENT TP SCH ×2 (08:47→21:47)
[2017-08-31] MEDS: SERTRALINE HCL 50 MG TABLET GT SCH (08:47)
[2017-08-31] MEDS: HYDROGEN PEROXIDE 3% 118 ML BOTTLE TP SCH ×2 (08:47→21:48)
[2017-08-31 20:17] VITALS: BP 108/70
[2017-08-31] MEDS: ASCORBIC ACID 500 MG TABLET PO SCH (21:47)
[2017-09-01] MEDS: OMEPRAZOLE 20 MG CAPSULE.DR GT SCH (06:44)
[2017-09-01] MEDS: MULTIVIT, IRON, MIN NO. 8, FA TABLET GT SCH (06:44)
[2017-09-01 08:05] VITALS: BP 109/69
[2017-09-01] MEDS: SERTRALINE HCL 50 MG TABLET GT SCH (09:00)
[2017-09-01] MEDS: ACIDOPHILUS/BULGARICUS CHEW TAB GT SCH ×2 (09:00→21:00)
[2017-09-01] MEDS: CALMOSEPTINE 113 GM OINTMENT TP SCH ×2 (09:00→21:00)
[2017-09-01] MEDS: NUTRISOURCE FIBER 4 GM PACKET GT SCH ×2 (09:00→21:00)
[2017-09-01] MEDS: METOPROLOL TARTRATE 50 MG TABLET GT SCH ×2 (09:00→21:00)
[2017-09-01] MEDS: DOCUSATE SODIUM 100 MG/10 ML LIQUID UDC GT SCH ×2 (09:00→21:00)
[2017-09-01] MEDS: HYDROGEN PEROXIDE 3% 118 ML BOTTLE TP SCH ×2 (09:00→21:00)
[2017-09-01] MEDS: SIMETHICONE 40 MG/0.6 ML, 30ML BOTTLE GT SCH ×3 (09:00→16:30)
[2017-09-01] MEDS: BACLOFEN 20 MG TABLET GT SCH ×4 (09:00→21:00)
[2017-09-01] MEDS: DIABETICSOURCE AC 1000ML LIQUID GT PRN (11:43)
[2017-09-01 20:00] VITALS: BP 117/75
[2017-09-01] MEDS: ASCORBIC ACID 500 MG TABLET PO SCH (21:00)
[2017-09-02] MEDS: OMEPRAZOLE 20 MG CAPSULE.DR GT SCH (06:20)
[2017-09-02 08:07] VITALS: BP 118/74
[2017-09-02] MEDS: ACIDOPHILUS/BULGARICUS CHEW TAB GT SCH ×2 (08:53→21:26)
[2017-09-02] MEDS: DOCUSATE SODIUM 100 MG/10 ML LIQUID UDC GT SCH ×2 (08:53→21:26)
[2017-09-02] MEDS: BACLOFEN 20 MG TABLET GT SCH ×4 (08:53→21:26)
[2017-09-02] MEDS: HYDROGEN PEROXIDE 3% 118 ML BOTTLE TP SCH ×2 (08:55→21:27)
[2017-09-02] MEDS: SERTRALINE HCL 50 MG TABLET GT SCH (08:55)
[2017-09-02] MEDS: METOPROLOL TARTRATE 50 MG TABLET GT SCH ×2 (08:55→21:27)
[2017-09-02] MEDS: CALMOSEPTINE 113 GM OINTMENT TP SCH ×2 (08:55→21:27)
[2017-09-02] MEDS: SIMETHICONE 40 MG/0.6 ML, 30ML BOTTLE GT SCH ×3 (08:55→17:01)
[2017-09-02] MEDS: NUTRISOURCE FIBER 4 GM PACKET GT SCH ×2 (08:55→21:27)
[2017-09-02 21:02] VITALS: BP 108/65
[2017-09-02] MEDS: ASCORBIC ACID 500 MG TABLET PO SCH (21:27)
[2017-09-03] MEDS: OMEPRAZOLE 20 MG CAPSULE.DR GT SCH (06:27)
[2017-09-03] MEDS: MULTIVIT, IRON, MIN NO. 8, FA TABLET GT SCH (06:27)
[2017-09-03 08:00] VITALS: BP 121/69
[2017-09-03] MEDS: BACLOFEN 20 MG TABLET GT SCH ×4 (09:04→21:02)
[2017-09-03] MEDS: METOPROLOL TARTRATE 50 MG TABLET GT SCH ×2 (09:04→21:03)
[2017-09-03] MEDS: ACIDOPHILUS/BULGARICUS CHEW TAB GT SCH ×2 (09:04→21:02)
[2017-09-03] MEDS: DOCUSATE SODIUM 100 MG/10 ML LIQUID UDC GT SCH ×2 (09:04→21:02)
[2017-09-03] MEDS: HYDROGEN PEROXIDE 3% 118 ML BOTTLE TP SCH ×2 (09:05→21:04)
[2017-09-03] MEDS: CALMOSEPTINE 113 GM OINTMENT TP SCH ×2 (09:05→21:04)
[2017-09-03] MEDS: SIMETHICONE 40 MG/0.6 ML, 30ML BOTTLE GT SCH ×3 (09:05→16:24)
[2017-09-03] MEDS: NUTRISOURCE FIBER 4 GM PACKET GT SCH ×2 (09:05→21:04)
[2017-09-03] MEDS: SERTRALINE HCL 50 MG TABLET GT SCH (09:05)
--- NOTE | 2017-09-03 12:34 | NUR ---
Seen by Dalia CARMICHAEL, with no new order.
[2017-09-03] MEDS: KETOCONAZOLE 2% SHAMPOO 120 ML BOTTLE TP SCH (17:35)
[2017-09-03] MEDS: ASCORBIC ACID 500 MG TABLET PO SCH (21:04)
[2017-09-03] MEDS: ACETAMINOPHEN 650 MG/20 ML UDC- SA PATIENTS-PAIN ONLY GT PRN (21:05)
[2017-09-03 21:42] VITALS: BP 112/76
[2017-09-04] MEDS: DIABETICSOURCE AC 1000ML LIQUID GT PRN (05:00)
[2017-09-04] MEDS: OMEPRAZOLE 20 MG CAPSULE.DR GT SCH (05:51)
[2017-09-04 08:00] VITALS: BP 99/65
[2017-09-04] MEDS: METOPROLOL TARTRATE 50 MG TABLET GT SCH ×2 (08:05→20:42)
[2017-09-04] MEDS: DOCUSATE SODIUM 100 MG/10 ML LIQUID UDC GT SCH ×2 (08:06→20:33)
[2017-09-04] MEDS: BACLOFEN 20 MG TABLET GT SCH ×4 (08:06→20:37)
[2017-09-04] MEDS: SERTRALINE HCL 50 MG TABLET GT SCH (08:07)
[2017-09-04] MEDS: NUTRISOURCE FIBER 4 GM PACKET GT SCH ×2 (08:07→20:42)
[2017-09-04] MEDS: HYDROGEN PEROXIDE 3% 118 ML BOTTLE TP SCH ×2 (08:07→20:42)
[2017-09-04] MEDS: CALMOSEPTINE 113 GM OINTMENT TP SCH ×2 (08:07→20:42)
[2017-09-04] MEDS: ACIDOPHILUS/BULGARICUS CHEW TAB GT SCH ×2 (08:10→20:37)
[2017-09-04] MEDS: SIMETHICONE 40 MG/0.6 ML, 30ML BOTTLE GT SCH ×3 (08:11→17:24)
--- NOTE | 2017-09-04 14:00 | NUR ---
Seen and examined by Dr Heaton with no new orders noted.
--- NOTE | 2017-09-04 18:22 | NUR ---
Pharmacy Update from today's 09/04/17 IDT Meeting VS: Temp 99 BP 99/85 HR 75 LABS: (from 02/05/17, no new labs) Wbc 6.9H/H 12.3/39.3Plt 321 Na 143K 3.6Cl 105CO2 30BUN/SCr 19/0.7 BS 113 Ca 9.2 MEDICATION USE REVIEWED: > Pt is not on any anti-epileptic medications > Pt is on Zoloft 50mg daily for depression m/b episodes of crying; No GDR planned for pt d/t contraindication of persisten cry episodes and repeated failed GDRs in the past (see MD note). Patient had x4 cry episodes in July (previously x1 August, x0 September, x0 October, x1 November, x1 Dec, x0 Jan, x2 Feb, x4 Mar, x0 Apr, x7 May, x0 Jun) > Pt is on depo-provera [id number] for heavy menstruation, last given 07/04/16 > PRN MED USAGE: (July) Tylenol 650mg for mild pain used x4 Tylenol for temp x1 Tylenol 1000mg mod pain x1 [place] severe pain x0 Bisacodyl x0 Immodium x0 NEW ORDERS NOTED: > Ketoconazole 2% shampoo twice a week for seborrheic dermatitis 08/23-11/20 Patient was reviewed and discussed in depth, no medication concerns at this time. Patient relatively stable at this time. Will follow
[2017-09-04] MEDS: ASCORBIC ACID 500 MG TABLET PO SCH (20:42)
[2017-09-04 20:58] VITALS: BP 115/76
[2017-09-05] MEDS: DIABETICSOURCE AC 1000ML LIQUID GT PRN ×2 (02:21→09:11)
[2017-09-05] MEDS: OMEPRAZOLE 20 MG CAPSULE.DR GT SCH (05:07)
[2017-09-05] MEDS: MULTIVIT, IRON, MIN NO. 8, FA TABLET GT SCH (05:55)
[2017-09-05 08:00] VITALS: BP 106/67
--- NOTE | 2017-09-05 08:00 | NUR ---
REC'D. PATIENT AWAKE, AFEBRILE IN BED, ON CA @ 28% FIO2 VIA TRACH MASK, NO S/S OF RESP. DISTRESS, NO DISCOMFORT NOTED. ABD. SOFT/NON DISTENDED. GT SITE CLEAN/DRY/NO REDNESS/NO LEAK NOTED. SKIN WARM/DRY/INTACT. TRACH TUBE SECURED/PATENT AT MIDLINE. SR UP X2 D/T HX OF SEIZURE, CALL LIGHT WITH IN REACH.
[2017-09-05] MEDS: DOCUSATE SODIUM 100 MG/10 ML LIQUID UDC GT SCH ×2 (09:08→21:02)
[2017-09-05] MEDS: ACIDOPHILUS/BULGARICUS CHEW TAB GT SCH ×2 (09:08→21:02)
[2017-09-05] MEDS: NUTRISOURCE FIBER 4 GM PACKET GT SCH ×2 (09:09→21:02)
[2017-09-05] MEDS: SIMETHICONE 40 MG/0.6 ML, 30ML BOTTLE GT SCH ×3 (09:09→16:01)
[2017-09-05] MEDS: BACLOFEN 20 MG TABLET GT SCH ×4 (09:09→21:02)
[2017-09-05] MEDS: SERTRALINE HCL 50 MG TABLET GT SCH (09:10)
[2017-09-05] MEDS: METOPROLOL TARTRATE 50 MG TABLET GT SCH ×2 (09:10→21:02)
[2017-09-05] MEDS: HYDROGEN PEROXIDE 3% 118 ML BOTTLE TP SCH ×2 (09:11→21:02)
[2017-09-05] MEDS: CALMOSEPTINE 113 GM OINTMENT TP SCH ×2 (09:11→21:02)
[2017-09-05 20:00] VITALS: BP 102/71
[2017-09-05] MEDS: ASCORBIC ACID 500 MG TABLET PO SCH (21:02)
[2017-09-06] MEDS: DIABETICSOURCE AC 1000ML LIQUID GT PRN ×2 (01:18→09:05)
[2017-09-06] MEDS: OMEPRAZOLE 20 MG CAPSULE.DR GT SCH (05:24)
[2017-09-06 08:00] VITALS: BP 112/80
--- NOTE | 2017-09-06 08:00 | NUR ---
REC'D. PATIENT AWAKE, AFEBRILE IN BED, ON CA @ 28% FIO2 VIA TRACH MASK, NO S/S OF RESP. DISTRESS, NO DISCOMFORT NOTED. ABD. SOFT/NON DISTENDED. GT SITE CLEAN/DRY/NO REDNESS/NO LEAK. SKIN WARM/DRY. TRACH TUBE SECURED/PATENT AT MIDLINE. SR UP X2, CALL LIGHT WITH IN REACH.
[2017-09-06] MEDS: SIMETHICONE 40 MG/0.6 ML, 30ML BOTTLE GT SCH ×3 (09:03→17:00)
[2017-09-06] MEDS: BACLOFEN 20 MG TABLET GT SCH ×4 (09:03→21:26)
[2017-09-06] MEDS: ACIDOPHILUS/BULGARICUS CHEW TAB GT SCH ×2 (09:03→21:26)
[2017-09-06] MEDS: DOCUSATE SODIUM 100 MG/10 ML LIQUID UDC GT SCH ×2 (09:03→21:26)
[2017-09-06] MEDS: SERTRALINE HCL 50 MG TABLET GT SCH (09:04)
[2017-09-06] MEDS: METOPROLOL TARTRATE 50 MG TABLET GT SCH ×2 (09:04→21:27)
[2017-09-06] MEDS: NUTRISOURCE FIBER 4 GM PACKET GT SCH ×2 (09:04→21:27)
[2017-09-06] MEDS: CALMOSEPTINE 113 GM OINTMENT TP SCH ×2 (09:05→21:27)
[2017-09-06] MEDS: HYDROGEN PEROXIDE 3% 118 ML BOTTLE TP SCH ×2 (09:05→21:27)
--- NOTE | 2017-09-06 10:05 | NUR ---
NEW ORDER WAS CARRIED OUT FROM GLENN ALMAZAN P.Lobo FOR INTERGLUTEAL EXCORIATION ,AND R PROGRAMMER INSTRUCTED TO TRY NOT TO PULL BUTTOCKS SKIN WHEN TURNING TO AVOID SKIN BREAK .
--- NOTE | 2017-09-06 12:00 | NUR ---
SEEN BY GLENN MORGAN.
[2017-09-06] MEDS: KETOCONAZOLE 2% SHAMPOO 120 ML BOTTLE TP SCH (18:09)
[2017-09-06 20:00] VITALS: BP 110/83
[2017-09-06] MEDS: COD LIVER OIL/ZINC OXIDE OINT 113 GM TUBE TP SCH (21:27)
[2017-09-06] MEDS: ASCORBIC ACID 500 MG TABLET PO SCH (21:27)
[2017-09-07] MEDS: DIABETICSOURCE AC 1000ML LIQUID GT PRN ×2 (01:48→09:24)
[2017-09-07] MEDS: MULTIVIT, IRON, MIN NO. 8, FA TABLET GT SCH (05:30)
[2017-09-07] MEDS: OMEPRAZOLE 20 MG CAPSULE.DR GT SCH (05:30)
[2017-09-07 08:00] VITALS: BP 108/65
[2017-09-07] MEDS: DOCUSATE SODIUM 100 MG/10 ML LIQUID UDC GT SCH ×2 (09:22→20:31)
[2017-09-07] MEDS: NUTRISOURCE FIBER 4 GM PACKET GT SCH ×2 (09:23→20:31)
[2017-09-07] MEDS: SIMETHICONE 40 MG/0.6 ML, 30ML BOTTLE GT SCH ×3 (09:23→16:46)
[2017-09-07] MEDS: ACIDOPHILUS/BULGARICUS CHEW TAB GT SCH ×2 (09:23→20:31)
[2017-09-07] MEDS: BACLOFEN 20 MG TABLET GT SCH ×4 (09:23→20:31)
[2017-09-07] MEDS: SERTRALINE HCL 50 MG TABLET GT SCH (09:23)
[2017-09-07] MEDS: METOPROLOL TARTRATE 50 MG TABLET GT SCH ×2 (09:24→20:31)
[2017-09-07] MEDS: CALMOSEPTINE 113 GM OINTMENT TP SCH ×2 (09:24→20:31)
[2017-09-07] MEDS: HYDROGEN PEROXIDE 3% 118 ML BOTTLE TP SCH ×2 (09:24→20:31)
[2017-09-07] MEDS: COD LIVER OIL/ZINC OXIDE OINT 113 GM TUBE TP SCH ×2 (09:24→20:31)
[2017-09-07] MEDS: ASCORBIC ACID 500 MG TABLET PO SCH (20:31)
[2017-09-07 22:00] VITALS: BP 105/73
[2017-09-08] MEDS: DIABETICSOURCE AC 1000ML LIQUID GT PRN (02:57)
[2017-09-08] MEDS: OMEPRAZOLE 20 MG CAPSULE.DR GT SCH (05:30)
[2017-09-08 08:00] VITALS: BP 139/56
[2017-09-08] MEDS: DOCUSATE SODIUM 100 MG/10 ML LIQUID UDC GT SCH ×2 (08:45→21:00)
[2017-09-08] MEDS: SIMETHICONE 40 MG/0.6 ML, 30ML BOTTLE GT SCH ×3 (08:46→16:36)
[2017-09-08] MEDS: COD LIVER OIL/ZINC OXIDE OINT 113 GM TUBE TP SCH ×2 (08:46→21:00)
[2017-09-08] MEDS: BACLOFEN 20 MG TABLET GT SCH ×4 (08:46→21:00)
[2017-09-08] MEDS: METOPROLOL TARTRATE 50 MG TABLET GT SCH ×2 (08:46→21:00)
[2017-09-08] MEDS: ACIDOPHILUS/BULGARICUS CHEW TAB GT SCH ×2 (08:46→21:00)
[2017-09-08] MEDS: HYDROGEN PEROXIDE 3% 118 ML BOTTLE TP SCH ×2 (08:46→21:00)
[2017-09-08] MEDS: NUTRISOURCE FIBER 4 GM PACKET GT SCH ×2 (08:46→21:00)
[2017-09-08] MEDS: SERTRALINE HCL 50 MG TABLET GT SCH (08:46)
[2017-09-08] MEDS: CALMOSEPTINE 113 GM OINTMENT TP SCH ×2 (08:46→21:00)
[2017-09-08] MEDS: ASCORBIC ACID 500 MG TABLET PO SCH (21:00)
[2017-09-08 22:00] VITALS: BP 105/69
[2017-09-09] MEDS: MULTIVIT, IRON, MIN NO. 8, FA TABLET GT SCH (05:35)
[2017-09-09] MEDS: OMEPRAZOLE 20 MG CAPSULE.DR GT SCH (05:35)
[2017-09-09] MEDS: SIMETHICONE 40 MG/0.6 ML, 30ML BOTTLE GT SCH ×3 (08:26→16:40)
[2017-09-09] MEDS: BACLOFEN 20 MG TABLET GT SCH ×4 (08:26→21:51)
[2017-09-09] MEDS: DOCUSATE SODIUM 100 MG/10 ML LIQUID UDC GT SCH ×2 (08:26→21:51)
[2017-09-09] MEDS: ACIDOPHILUS/BULGARICUS CHEW TAB GT SCH ×2 (08:26→21:51)
[2017-09-09] MEDS: METOPROLOL TARTRATE 50 MG TABLET GT SCH ×2 (08:26→21:52)
[2017-09-09] MEDS: CALMOSEPTINE 113 GM OINTMENT TP SCH ×2 (08:27→21:52)
[2017-09-09] MEDS: COD LIVER OIL/ZINC OXIDE OINT 113 GM TUBE TP SCH ×2 (08:27→21:52)
[2017-09-09] MEDS: NUTRISOURCE FIBER 4 GM PACKET GT SCH ×2 (08:27→21:52)
[2017-09-09] MEDS: HYDROGEN PEROXIDE 3% 118 ML BOTTLE TP SCH ×2 (08:27→21:52)
[2017-09-09] MEDS: SERTRALINE HCL 50 MG TABLET GT SCH (08:27)
--- NOTE | 2017-09-09 11:19 | NUR ---
SEEN BY GLENN MORGAN.
[2017-09-09] MEDS: ASCORBIC ACID 500 MG TABLET PO SCH (21:52)
[2017-09-09 23:02] VITALS: BP 105/69
[2017-09-10] MEDS: DIABETICSOURCE AC 1000ML LIQUID GT PRN (03:30)
[2017-09-10] MEDS: OMEPRAZOLE 20 MG CAPSULE.DR GT SCH (05:34)
[2017-09-10 08:00] VITALS: BP 104/72
[2017-09-10] MEDS: SIMETHICONE 40 MG/0.6 ML, 30ML BOTTLE GT SCH ×3 (08:45→16:37)
[2017-09-10] MEDS: COD LIVER OIL/ZINC OXIDE OINT 113 GM TUBE TP SCH ×2 (08:45→20:59)
[2017-09-10] MEDS: HYDROGEN PEROXIDE 3% 118 ML BOTTLE TP SCH ×2 (08:45→20:59)
[2017-09-10] MEDS: SERTRALINE HCL 50 MG TABLET GT SCH (08:45)
[2017-09-10] MEDS: METOPROLOL TARTRATE 50 MG TABLET GT SCH ×2 (08:45→20:58)
[2017-09-10] MEDS: BACLOFEN 20 MG TABLET GT SCH ×4 (08:45→20:58)
[2017-09-10] MEDS: CALMOSEPTINE 113 GM OINTMENT TP SCH ×2 (08:45→20:59)
[2017-09-10] MEDS: ACIDOPHILUS/BULGARICUS CHEW TAB GT SCH ×2 (08:45→20:58)
[2017-09-10] MEDS: DOCUSATE SODIUM 100 MG/10 ML LIQUID UDC GT SCH ×2 (08:45→20:58)
[2017-09-10] MEDS: NUTRISOURCE FIBER 4 GM PACKET GT SCH ×2 (08:45→20:58)
[2017-09-10] MEDS: KETOCONAZOLE 2% SHAMPOO 120 ML BOTTLE TP SCH (18:35)
[2017-09-10 20:21] VITALS: BP 115/82
[2017-09-10] MEDS: ASCORBIC ACID 500 MG TABLET PO SCH (20:58)
[2017-09-11] MEDS: MULTIVIT, IRON, MIN NO. 8, FA TABLET GT SCH (05:44)
[2017-09-11] MEDS: OMEPRAZOLE 20 MG CAPSULE.DR GT SCH (05:44)
[2017-09-11] MEDS: DIABETICSOURCE AC 1000ML LIQUID GT PRN (07:11)
[2017-09-11 08:00] VITALS: BP_SYST 105; BP_SYST 109; BP_DIAS 59; BP_DIAS 74
[2017-09-11] MEDS: DOCUSATE SODIUM 100 MG/10 ML LIQUID UDC GT SCH ×2 (09:04→21:03)
[2017-09-11] MEDS: ACIDOPHILUS/BULGARICUS CHEW TAB GT SCH ×2 (09:04→21:03)
[2017-09-11] MEDS: HYDROGEN PEROXIDE 3% 118 ML BOTTLE TP SCH ×2 (09:05→21:06)
[2017-09-11] MEDS: METOPROLOL TARTRATE 50 MG TABLET GT SCH ×2 (09:05→21:00)
[2017-09-11] MEDS: COD LIVER OIL/ZINC OXIDE OINT 113 GM TUBE TP SCH ×2 (09:05→21:06)
[2017-09-11] MEDS: SIMETHICONE 40 MG/0.6 ML, 30ML BOTTLE GT SCH ×3 (09:05→17:00)
[2017-09-11] MEDS: CALMOSEPTINE 113 GM OINTMENT TP SCH ×2 (09:05→21:06)
[2017-09-11] MEDS: BACLOFEN 20 MG TABLET GT SCH ×4 (09:05→21:05)
[2017-09-11] MEDS: NUTRISOURCE FIBER 4 GM PACKET GT SCH ×2 (09:05→21:05)
[2017-09-11] MEDS: SERTRALINE HCL 50 MG TABLET GT SCH (09:05)
[2017-09-11 20:00] VITALS: BP 93/61
[2017-09-11] MEDS: ASCORBIC ACID 500 MG TABLET PO SCH (21:05)
[2017-09-12] MEDS: OMEPRAZOLE 20 MG CAPSULE.DR GT SCH (05:34)
[2017-09-12] MEDS: GLUCERNA 1.2 1000ML LIQUID GT PRN (06:54)
[2017-09-12 08:00] VITALS: BP 120/75
[2017-09-12] MEDS: COD LIVER OIL/ZINC OXIDE OINT 113 GM TUBE TP SCH ×2 (08:23→20:25)
[2017-09-12] MEDS: DOCUSATE SODIUM 100 MG/10 ML LIQUID UDC GT SCH ×2 (08:23→20:25)
[2017-09-12] MEDS: ACIDOPHILUS/BULGARICUS CHEW TAB GT SCH ×2 (08:23→20:25)
[2017-09-12] MEDS: SIMETHICONE 40 MG/0.6 ML, 30ML BOTTLE GT SCH ×3 (08:23→17:14)
[2017-09-12] MEDS: CALMOSEPTINE 113 GM OINTMENT TP SCH ×2 (08:23→20:25)
[2017-09-12] MEDS: METOPROLOL TARTRATE 50 MG TABLET GT SCH ×2 (08:23→21:13)
[2017-09-12] MEDS: BACLOFEN 20 MG TABLET GT SCH ×4 (08:23→20:25)
[2017-09-12] MEDS: NUTRISOURCE FIBER 4 GM PACKET GT SCH ×2 (08:23→20:25)
[2017-09-12] MEDS: SERTRALINE HCL 50 MG TABLET GT SCH (08:23)
[2017-09-12] MEDS: HYDROGEN PEROXIDE 3% 118 ML BOTTLE TP SCH ×2 (08:23→20:25)
[2017-09-12 20:00] VITALS: BP 106/68
[2017-09-12] MEDS: ASCORBIC ACID 500 MG TABLET PO SCH (20:25)
[2017-09-12] MEDS: NEOMY/BACITRA/POLYMYXIN B OINT UD PACKET TP SCH (20:26)
[2017-09-13] MEDS: GLUCERNA 1.2 1000ML LIQUID GT PRN (05:20)
[2017-09-13] MEDS: OMEPRAZOLE 20 MG CAPSULE.DR GT SCH (05:20)
[2017-09-13] MEDS: MULTIVIT, IRON, MIN NO. 8, FA TABLET GT SCH (05:31)
[2017-09-13 08:00] VITALS: BP 150/44
[2017-09-13] MEDS: DOCUSATE SODIUM 100 MG/10 ML LIQUID UDC GT SCH ×2 (09:01→20:23)
[2017-09-13] MEDS: ACIDOPHILUS/BULGARICUS CHEW TAB GT SCH ×2 (09:02→20:23)
[2017-09-13] MEDS: BACLOFEN 20 MG TABLET GT SCH ×4 (09:02→20:24)
[2017-09-13] MEDS: COD LIVER OIL/ZINC OXIDE OINT 113 GM TUBE TP SCH ×2 (09:03→20:24)
[2017-09-13] MEDS: METOPROLOL TARTRATE 50 MG TABLET GT SCH ×2 (09:03→20:24)
[2017-09-13] MEDS: HYDROGEN PEROXIDE 3% 118 ML BOTTLE TP SCH ×2 (09:03→20:25)
[2017-09-13] MEDS: CALMOSEPTINE 113 GM OINTMENT TP SCH ×2 (09:03→20:24)
[2017-09-13] MEDS: SERTRALINE HCL 50 MG TABLET GT SCH (09:03)
[2017-09-13] MEDS: NUTRISOURCE FIBER 4 GM PACKET GT SCH ×2 (09:03→20:24)
[2017-09-13] MEDS: SIMETHICONE 40 MG/0.6 ML, 30ML BOTTLE GT SCH ×3 (09:03→16:21)
[2017-09-13] MEDS: NEOMY/BACITRA/POLYMYXIN B OINT UD PACKET TP SCH ×2 (09:04→20:25)
[2017-09-13] MEDS: KETOCONAZOLE 2% SHAMPOO 120 ML BOTTLE TP SCH (17:43)
[2017-09-13] MEDS: ASCORBIC ACID 500 MG TABLET PO SCH (20:24)
[2017-09-13 20:52] VITALS: BP 144/53
[2017-09-14] MEDS: GLUCERNA 1.2 1000ML LIQUID GT PRN (01:41)
[2017-09-14] MEDS: OMEPRAZOLE 20 MG CAPSULE.DR GT SCH (05:17)
[2017-09-14 08:06] VITALS: BP 104/63
[2017-09-14] MEDS: COD LIVER OIL/ZINC OXIDE OINT 113 GM TUBE TP SCH ×2 (08:13→20:52)
[2017-09-14] MEDS: SIMETHICONE 40 MG/0.6 ML, 30ML BOTTLE GT SCH ×3 (08:13→16:40)
[2017-09-14] MEDS: ACIDOPHILUS/BULGARICUS CHEW TAB GT SCH ×2 (08:13→20:49)
[2017-09-14] MEDS: SERTRALINE HCL 50 MG TABLET GT SCH (08:13)
[2017-09-14] MEDS: METOPROLOL TARTRATE 50 MG TABLET GT SCH ×2 (08:13→20:51)
[2017-09-14] MEDS: DOCUSATE SODIUM 100 MG/10 ML LIQUID UDC GT SCH ×2 (08:13→20:48)
[2017-09-14] MEDS: NEOMY/BACITRA/POLYMYXIN B OINT UD PACKET TP SCH ×2 (08:13→20:52)
[2017-09-14] MEDS: NUTRISOURCE FIBER 4 GM PACKET GT SCH ×2 (08:13→20:52)
[2017-09-14] MEDS: BACLOFEN 20 MG TABLET GT SCH ×4 (08:13→20:49)
[2017-09-14] MEDS: HYDROGEN PEROXIDE 3% 118 ML BOTTLE TP SCH ×2 (08:13→20:52)
[2017-09-14] MEDS: CALMOSEPTINE 113 GM OINTMENT TP SCH ×2 (08:13→20:52)
[2017-09-14 20:39] VITALS: BP 121/77
[2017-09-14] MEDS: ASCORBIC ACID 500 MG TABLET PO SCH (20:52)
[2017-09-15] MEDS: GLUCERNA 1.2 1000ML LIQUID GT PRN (00:13)
[2017-09-15] MEDS: OMEPRAZOLE 20 MG CAPSULE.DR GT SCH (05:52)
[2017-09-15] MEDS: MULTIVIT, IRON, MIN NO. 8, FA TABLET GT SCH (05:52)
[2017-09-15] MEDS: ACETAMINOPHEN 650 MG/20 ML UDC- SA PATIENTS-PAIN ONLY GT PRN (05:52)
[2017-09-15 08:06] VITALS: BP 127/81
[2017-09-15] MEDS: DOCUSATE SODIUM 100 MG/10 ML LIQUID UDC GT SCH ×2 (08:37→20:52)
[2017-09-15] MEDS: ACIDOPHILUS/BULGARICUS CHEW TAB GT SCH ×2 (08:37→20:52)
[2017-09-15] MEDS: BACLOFEN 20 MG TABLET GT SCH ×4 (08:37→20:52)
[2017-09-15] MEDS: METOPROLOL TARTRATE 50 MG TABLET GT SCH ×2 (08:38→20:52)
[2017-09-15] MEDS: NUTRISOURCE FIBER 4 GM PACKET GT SCH ×2 (08:38→20:52)
[2017-09-15] MEDS: SERTRALINE HCL 50 MG TABLET GT SCH (08:38)
[2017-09-15] MEDS: SIMETHICONE 40 MG/0.6 ML, 30ML BOTTLE GT SCH ×3 (08:38→16:28)
[2017-09-15] MEDS: CALMOSEPTINE 113 GM OINTMENT TP SCH ×2 (08:39→20:52)
[2017-09-15] MEDS: COD LIVER OIL/ZINC OXIDE OINT 113 GM TUBE TP SCH ×2 (08:39→20:52)
[2017-09-15] MEDS: NEOMY/BACITRA/POLYMYXIN B OINT UD PACKET TP SCH ×2 (08:39→20:53)
[2017-09-15] MEDS: HYDROGEN PEROXIDE 3% 118 ML BOTTLE TP SCH ×2 (08:39→20:52)
[2017-09-15 20:49] VITALS: BP 123/73
[2017-09-15] MEDS: ASCORBIC ACID 500 MG TABLET PO SCH (20:52)
[2017-09-16] MEDS: GLUCERNA 1.2 1000ML LIQUID GT PRN (00:45)
[2017-09-16] MEDS: OMEPRAZOLE 20 MG CAPSULE.DR GT SCH (05:19)
[2017-09-16 08:05] VITALS: BP 118/66
[2017-09-16] MEDS: DOCUSATE SODIUM 100 MG/10 ML LIQUID UDC GT SCH ×2 (08:38→21:31)
[2017-09-16] MEDS: SIMETHICONE 40 MG/0.6 ML, 30ML BOTTLE GT SCH ×3 (08:39→16:13)
[2017-09-16] MEDS: BACLOFEN 20 MG TABLET GT SCH ×4 (08:39→21:31)
[2017-09-16] MEDS: METOPROLOL TARTRATE 50 MG TABLET GT SCH ×2 (08:39→21:32)
[2017-09-16] MEDS: ACIDOPHILUS/BULGARICUS CHEW TAB GT SCH ×2 (08:39→21:31)
[2017-09-16] MEDS: NUTRISOURCE FIBER 4 GM PACKET GT SCH ×2 (08:40→21:32)
[2017-09-16] MEDS: SERTRALINE HCL 50 MG TABLET GT SCH (08:40)
[2017-09-16] MEDS: COD LIVER OIL/ZINC OXIDE OINT 113 GM TUBE TP SCH ×2 (08:40→21:32)
[2017-09-16] MEDS: HYDROGEN PEROXIDE 3% 118 ML BOTTLE TP SCH ×2 (08:40→21:32)
[2017-09-16] MEDS: NEOMY/BACITRA/POLYMYXIN B OINT UD PACKET TP SCH ×2 (08:40→21:32)
[2017-09-16] MEDS: CALMOSEPTINE 113 GM OINTMENT TP SCH ×2 (08:40→21:32)
[2017-09-16 20:47] VITALS: BP 127/82
[2017-09-16] MEDS: ASCORBIC ACID 500 MG TABLET PO SCH (21:32)
[2017-09-17] MEDS: GLUCERNA 1.2 1000ML LIQUID GT PRN (02:21)
[2017-09-17] MEDS: MULTIVIT, IRON, MIN NO. 8, FA TABLET GT SCH (06:12)
[2017-09-17] MEDS: OMEPRAZOLE 20 MG CAPSULE.DR GT SCH (06:12)
[2017-09-17 08:00] VITALS: BP 134/74
[2017-09-17] MEDS: KETOCONAZOLE 2% SHAMPOO 120 ML BOTTLE TP SCH (08:41)
[2017-09-17] MEDS: DOCUSATE SODIUM 100 MG/10 ML LIQUID UDC GT SCH ×2 (08:42→20:54)
[2017-09-17] MEDS: BACLOFEN 20 MG TABLET GT SCH ×4 (08:42→20:54)
[2017-09-17] MEDS: ACIDOPHILUS/BULGARICUS CHEW TAB GT SCH ×2 (08:42→20:54)
[2017-09-17] MEDS: METOPROLOL TARTRATE 50 MG TABLET GT SCH ×2 (08:42→20:54)
[2017-09-17] MEDS: SIMETHICONE 40 MG/0.6 ML, 30ML BOTTLE GT SCH ×3 (08:43→16:51)
[2017-09-17] MEDS: NUTRISOURCE FIBER 4 GM PACKET GT SCH ×2 (08:43→20:54)
[2017-09-17] MEDS: COD LIVER OIL/ZINC OXIDE OINT 113 GM TUBE TP SCH ×2 (08:43→20:55)
[2017-09-17] MEDS: CALMOSEPTINE 113 GM OINTMENT TP SCH ×2 (08:43→20:55)
[2017-09-17] MEDS: SERTRALINE HCL 50 MG TABLET GT SCH (08:43)
[2017-09-17] MEDS: HYDROGEN PEROXIDE 3% 118 ML BOTTLE TP SCH ×2 (08:43→20:55)
[2017-09-17] MEDS: NEOMY/BACITRA/POLYMYXIN B OINT UD PACKET TP SCH ×2 (08:43→20:55)
--- NOTE | 2017-09-17 11:00 | NUR ---
Seen by Dalia CARMICHAEL with no new order.
[2017-09-17 20:15] VITALS: BP 121/65
[2017-09-17] MEDS: ASCORBIC ACID 500 MG TABLET PO SCH (20:54)
[2017-09-18] MEDS: GLUCERNA 1.2 1000ML LIQUID GT PRN (02:37)
[2017-09-18] MEDS: OMEPRAZOLE 20 MG CAPSULE.DR GT SCH (05:37)
[2017-09-18 08:00] VITALS: BP 123/79
[2017-09-18] MEDS: DOCUSATE SODIUM 100 MG/10 ML LIQUID UDC GT SCH ×2 (08:51→21:10)
[2017-09-18] MEDS: SERTRALINE HCL 50 MG TABLET GT SCH (08:52)
[2017-09-18] MEDS: NUTRISOURCE FIBER 4 GM PACKET GT SCH ×2 (08:52→21:12)
[2017-09-18] MEDS: BACLOFEN 20 MG TABLET GT SCH ×4 (08:52→21:11)
[2017-09-18] MEDS: SIMETHICONE 40 MG/0.6 ML, 30ML BOTTLE GT SCH ×3 (08:52→17:44)
[2017-09-18] MEDS: ACIDOPHILUS/BULGARICUS CHEW TAB GT SCH ×2 (08:52→21:10)
[2017-09-18] MEDS: METOPROLOL TARTRATE 50 MG TABLET GT SCH ×2 (08:52→21:11)
[2017-09-18] MEDS: HYDROGEN PEROXIDE 3% 118 ML BOTTLE TP SCH ×2 (08:53→21:13)
[2017-09-18] MEDS: COD LIVER OIL/ZINC OXIDE OINT 113 GM TUBE TP SCH ×2 (08:53→21:13)
[2017-09-18] MEDS: CALMOSEPTINE 113 GM OINTMENT TP SCH ×2 (08:53→21:12)
[2017-09-18] MEDS: NEOMY/BACITRA/POLYMYXIN B OINT UD PACKET TP SCH ×2 (08:53→21:13)
[2017-09-18] MEDS: BISACODYL 10 MG SUPP.RECT RC PRN (16:30)
[2017-09-18] MEDS: ACETAMINOPHEN 650 MG/20 ML UDC- SA PATIENTS-PAIN ONLY GT PRN (16:30)
[2017-09-18] MEDS: HYDROCODONE/APAP 5-325MG TABLET GT PRN (18:09)
--- NOTE | 2017-09-18 19:05 | NUR ---
SEEN AND EXAMINED BY DR OGLESBY,NO NEW ORDERS.
[2017-09-18 20:00] VITALS: BP 146/77
[2017-09-18] MEDS: ASCORBIC ACID 500 MG TABLET PO SCH (21:12)
[2017-09-19] MEDS: GLUCERNA 1.2 1000ML LIQUID GT PRN (00:37)
[2017-09-19] MEDS: OMEPRAZOLE 20 MG CAPSULE.DR GT SCH (05:13)
[2017-09-19] MEDS: ACETAMINOPHEN 650 MG/20 ML UDC- SA PATIENTS-PAIN ONLY GT PRN (05:14)
[2017-09-19] MEDS: MULTIVIT, IRON, MIN NO. 8, FA TABLET GT SCH (05:59)
[2017-09-19 08:00] VITALS: BP 105/68
[2017-09-19] MEDS: BACLOFEN 20 MG TABLET GT SCH ×4 (08:59→21:13)
[2017-09-19] MEDS: DOCUSATE SODIUM 100 MG/10 ML LIQUID UDC GT SCH ×2 (08:59→21:12)
[2017-09-19] MEDS: ACIDOPHILUS/BULGARICUS CHEW TAB GT SCH ×2 (08:59→21:13)
[2017-09-19] MEDS: NUTRISOURCE FIBER 4 GM PACKET GT SCH ×2 (09:01→21:13)
[2017-09-19] MEDS: SIMETHICONE 40 MG/0.6 ML, 30ML BOTTLE GT SCH ×3 (09:01→16:45)
[2017-09-19] MEDS: METOPROLOL TARTRATE 50 MG TABLET GT SCH ×2 (09:01→21:13)
[2017-09-19] MEDS: COD LIVER OIL/ZINC OXIDE OINT 113 GM TUBE TP SCH ×2 (09:02→21:14)
[2017-09-19] MEDS: NEOMY/BACITRA/POLYMYXIN B OINT UD PACKET TP SCH (09:02)
[2017-09-19] MEDS: CALMOSEPTINE 113 GM OINTMENT TP SCH ×2 (09:02→21:14)
[2017-09-19] MEDS: HYDROGEN PEROXIDE 3% 118 ML BOTTLE TP SCH ×2 (09:02→21:14)
[2017-09-19] MEDS: SERTRALINE HCL 50 MG TABLET GT SCH (09:02)
[2017-09-19 20:35] VITALS: BP 107/70
[2017-09-19] MEDS: ASCORBIC ACID 500 MG TABLET PO SCH (21:14)
[2017-09-20] MEDS: GLUCERNA 1.2 1000ML LIQUID GT PRN ×2 (00:30→01:55)
[2017-09-20] MEDS: OMEPRAZOLE 20 MG CAPSULE.DR GT SCH (05:50)
[2017-09-20] MEDS: KETOCONAZOLE 2% SHAMPOO 120 ML BOTTLE TP SCH (08:00)
[2017-09-20 08:08] VITALS: BP 106/64
[2017-09-20] MEDS: METOPROLOL TARTRATE 50 MG TABLET GT SCH ×2 (09:00→21:31)
[2017-09-20] MEDS: CALMOSEPTINE 113 GM OINTMENT TP SCH ×2 (09:00→21:33)
[2017-09-20] MEDS: NUTRISOURCE FIBER 4 GM PACKET GT SCH ×2 (09:00→21:31)
[2017-09-20] MEDS: HYDROGEN PEROXIDE 3% 118 ML BOTTLE TP SCH ×2 (09:00→21:33)
[2017-09-20] MEDS: SERTRALINE HCL 50 MG TABLET GT SCH (09:00)
[2017-09-20] MEDS: BACLOFEN 20 MG TABLET GT SCH ×4 (09:00→21:31)
[2017-09-20] MEDS: ACIDOPHILUS/BULGARICUS CHEW TAB GT SCH ×2 (09:00→21:31)
[2017-09-20] MEDS: SIMETHICONE 40 MG/0.6 ML, 30ML BOTTLE GT SCH ×3 (09:00→17:11)
[2017-09-20] MEDS: DOCUSATE SODIUM 100 MG/10 ML LIQUID UDC GT SCH ×2 (09:00→21:31)
[2017-09-20] MEDS: COD LIVER OIL/ZINC OXIDE OINT 113 GM TUBE TP SCH (09:00)
[2017-09-20 20:12] VITALS: BP 110/75
[2017-09-20] MEDS: ASCORBIC ACID 500 MG TABLET PO SCH (21:32)
[2017-09-21] MEDS: GLUCERNA 1.2 1000ML LIQUID GT PRN ×2 (00:41→09:12)
[2017-09-21] MEDS: OMEPRAZOLE 20 MG CAPSULE.DR GT SCH (05:55)
[2017-09-21] MEDS: MULTIVIT, IRON, MIN NO. 8, FA TABLET GT SCH (05:55)
--- NOTE | 2017-09-21 08:00 | NUR ---
REC'D. PATIENT AWAKE, AFEBRILE IN BED, ON CA @ 28% FIO2 VIA TRACH MASK, NO S/S OF RESP. DISTRESS, NO DISCOMFORT NOTED. ABD. SOFT/NON-DISTENDED, SKIN WARM/DRY/INTACT. GT SITE CLEAN/PATENT/NO REDNESS, NO LEAK NOTED. TRACH TUBE SHILEY 6 SECURED/PATENT AT MIDLINE. SR UP X 2, CALL LIGHT WITH IN REACH AT ALL TIMES
[2017-09-21 08:09] VITALS: BP 116/76
[2017-09-21] MEDS: ACIDOPHILUS/BULGARICUS CHEW TAB GT SCH ×2 (09:10→20:37)
[2017-09-21] MEDS: DOCUSATE SODIUM 100 MG/10 ML LIQUID UDC GT SCH ×2 (09:10→20:37)
[2017-09-21] MEDS: CALMOSEPTINE 113 GM OINTMENT TP SCH ×2 (09:11→20:38)
[2017-09-21] MEDS: SIMETHICONE 40 MG/0.6 ML, 30ML BOTTLE GT SCH ×3 (09:11→17:57)
[2017-09-21] MEDS: HYDROGEN PEROXIDE 3% 118 ML BOTTLE TP SCH ×2 (09:11→20:38)
[2017-09-21] MEDS: SERTRALINE HCL 50 MG TABLET GT SCH (09:11)
[2017-09-21] MEDS: BACLOFEN 20 MG TABLET GT SCH ×4 (09:11→20:37)
[2017-09-21] MEDS: NUTRISOURCE FIBER 4 GM PACKET GT SCH ×2 (09:11→20:38)
[2017-09-21] MEDS: METOPROLOL TARTRATE 50 MG TABLET GT SCH ×2 (09:12→20:37)
[2017-09-21] MEDS: ASCORBIC ACID 500 MG TABLET PO SCH (20:38)
[2017-09-21 22:00] VITALS: BP 114/75
[2017-09-22] MEDS: OMEPRAZOLE 20 MG CAPSULE.DR GT SCH (05:31)
[2017-09-22 08:00] VITALS: BP 109/67
[2017-09-22] MEDS: DOCUSATE SODIUM 100 MG/10 ML LIQUID UDC GT SCH ×2 (09:39→20:50)
[2017-09-22] MEDS: METOPROLOL TARTRATE 50 MG TABLET GT SCH ×2 (09:39→20:51)
[2017-09-22] MEDS: SIMETHICONE 40 MG/0.6 ML, 30ML BOTTLE GT SCH ×3 (09:39→17:04)
[2017-09-22] MEDS: ACIDOPHILUS/BULGARICUS CHEW TAB GT SCH ×2 (09:39→20:50)
[2017-09-22] MEDS: BACLOFEN 20 MG TABLET GT SCH ×4 (09:39→20:50)
[2017-09-22] MEDS: SERTRALINE HCL 50 MG TABLET GT SCH (09:40)
[2017-09-22] MEDS: GLUCERNA 1.2 1000ML LIQUID GT PRN (09:40)
[2017-09-22] MEDS: NUTRISOURCE FIBER 4 GM PACKET GT SCH ×2 (09:40→20:51)
[2017-09-22] MEDS: CALMOSEPTINE 113 GM OINTMENT TP SCH ×2 (09:40→20:51)
[2017-09-22] MEDS: HYDROGEN PEROXIDE 3% 118 ML BOTTLE TP SCH ×2 (09:40→20:51)
[2017-09-22 20:46] VITALS: BP 109/65
[2017-09-22] MEDS: ASCORBIC ACID 500 MG TABLET PO SCH (20:51)
[2017-09-23] MEDS: OMEPRAZOLE 20 MG CAPSULE.DR GT SCH (06:43)
[2017-09-23] MEDS: MULTIVIT, IRON, MIN NO. 8, FA TABLET GT SCH (06:43)
[2017-09-23 08:00] VITALS: BP 114/78
[2017-09-23] MEDS: DOCUSATE SODIUM 100 MG/10 ML LIQUID UDC GT SCH ×2 (08:44→20:32)
[2017-09-23] MEDS: ACIDOPHILUS/BULGARICUS CHEW TAB GT SCH ×2 (08:44→20:32)
[2017-09-23] MEDS: BACLOFEN 20 MG TABLET GT SCH ×4 (08:44→20:32)
[2017-09-23] MEDS: METOPROLOL TARTRATE 50 MG TABLET GT SCH ×2 (08:45→20:32)
[2017-09-23] MEDS: CALMOSEPTINE 113 GM OINTMENT TP SCH ×2 (08:45→20:33)
[2017-09-23] MEDS: SERTRALINE HCL 50 MG TABLET GT SCH (08:45)
[2017-09-23] MEDS: HYDROGEN PEROXIDE 3% 118 ML BOTTLE TP SCH ×2 (08:45→20:33)
[2017-09-23] MEDS: SIMETHICONE 40 MG/0.6 ML, 30ML BOTTLE GT SCH ×3 (08:45→16:50)
[2017-09-23] MEDS: NUTRISOURCE FIBER 4 GM PACKET GT SCH ×2 (08:45→20:32)
--- NOTE | 2017-09-23 11:20 | NUR ---
PT. OBSERVED WITH ABDOMINAL DISTENTION AND BOWEL SOUND PRESENT WITH LOTS OF BOWEL GAS THAT WAS EXPELLED WHEN REPOSITIONED HER SIDE BUT NOT COMPLETELY AND APPARENTLY CAUSING DISCOMFORT M/B FACIAL GRIMACING ,ALSO NOTED WITH PSORIASIS PATCHES ON BACK AND PICTURE TAKEN .DR. OGLESBY WAS NOTIFIED AND AWARE AND WITH NEW ORDERS CARRIED OUT.HARRISH FLUSH ENEMA WAS GIVEN AND PT. WAS ABLE TO RELEASE LARGE AMOUNT OF BOWEL GAS AND VISIBLE IMPROVED DISCOMFORT B/N NO MORE FACIAL GRIMACING.
[2017-09-23] MEDS ORDERED: HARRIS FLUSH ENEMA RC PRN (11:45)
[2017-09-23] MEDS: ASCORBIC ACID 500 MG TABLET PO SCH (20:32)
[2017-09-23 22:00] VITALS: BP 104/60
[2017-09-23] MEDS: GLUCERNA 1.2 1000ML LIQUID GT PRN (23:10)
[2017-09-24] MEDS: OMEPRAZOLE 20 MG CAPSULE.DR GT SCH (05:53)
[2017-09-24 08:00] VITALS: BP 107/68
[2017-09-24] MEDS: ACIDOPHILUS/BULGARICUS CHEW TAB GT SCH ×2 (08:31→20:38)
[2017-09-24] MEDS: SERTRALINE HCL 50 MG TABLET GT SCH (08:31)
[2017-09-24] MEDS: BACLOFEN 20 MG TABLET GT SCH ×4 (08:31→20:38)
[2017-09-24] MEDS: DOCUSATE SODIUM 100 MG/10 ML LIQUID UDC GT SCH ×2 (08:31→20:38)
[2017-09-24] MEDS: NUTRISOURCE FIBER 4 GM PACKET GT SCH ×2 (08:31→20:38)
[2017-09-24] MEDS: METOPROLOL TARTRATE 50 MG TABLET GT SCH ×2 (08:31→20:38)
[2017-09-24] MEDS: KETOCONAZOLE 2% SHAMPOO 120 ML BOTTLE TP SCH (08:31)
[2017-09-24] MEDS: SIMETHICONE 40 MG/0.6 ML, 30ML BOTTLE GT SCH ×3 (08:31→16:22)
[2017-09-24] MEDS: CALMOSEPTINE 113 GM OINTMENT TP SCH ×2 (08:32→20:38)
[2017-09-24] MEDS: HYDROGEN PEROXIDE 3% 118 ML BOTTLE TP SCH ×2 (08:32→20:38)
[2017-09-24] MEDS: TRIAMCINOLONE ACET 0.1% OINT 15 GM TUBE TP SCH ×2 (16:02→20:39)
--- NOTE | 2017-09-24 16:25 | NUR ---
Harrish flush enema given as ordered due to excessive bowel gas manifested by abdominal distention. pt observed to be more comfortable without facial grimacing after the intervention. Will continue to reposition to release the gas. will endorse to the next shift.
--- NOTE | 2017-09-24 18:42 | NUR ---
PT. WAS SEEN BY GLENN Bolaños AND ABIEL Bolaños AND WITH NNO.
[2017-09-24] MEDS: ASCORBIC ACID 500 MG TABLET PO SCH (20:38)
[2017-09-24 22:00] VITALS: BP 112/70
[2017-09-25] MEDS: OMEPRAZOLE 20 MG CAPSULE.DR GT SCH (05:29)
[2017-09-25] MEDS: MULTIVIT, IRON, MIN NO. 8, FA TABLET GT SCH (05:47)
[2017-09-25 08:00] VITALS: BP 111/57
[2017-09-25] MEDS: ACIDOPHILUS/BULGARICUS CHEW TAB GT SCH ×2 (08:36→21:04)
[2017-09-25] MEDS: METOPROLOL TARTRATE 50 MG TABLET GT SCH ×2 (08:36→21:05)
[2017-09-25] MEDS: DOCUSATE SODIUM 100 MG/10 ML LIQUID UDC GT SCH ×2 (08:36→21:04)
[2017-09-25] MEDS: BACLOFEN 20 MG TABLET GT SCH ×4 (08:36→21:04)
[2017-09-25] MEDS: SERTRALINE HCL 50 MG TABLET GT SCH (08:37)
[2017-09-25] MEDS: CALMOSEPTINE 113 GM OINTMENT TP SCH ×2 (08:37→21:05)
[2017-09-25] MEDS: HYDROGEN PEROXIDE 3% 118 ML BOTTLE TP SCH ×2 (08:37→21:05)
[2017-09-25] MEDS: SIMETHICONE 40 MG/0.6 ML, 30ML BOTTLE GT SCH ×3 (08:37→16:58)
[2017-09-25] MEDS: NUTRISOURCE FIBER 4 GM PACKET GT SCH ×2 (08:37→21:05)
[2017-09-25] MEDS: TRIAMCINOLONE ACET 0.1% OINT 15 GM TUBE TP SCH ×2 (08:38→21:05)
[2017-09-25 20:34] VITALS: BP 127/77
[2017-09-25] MEDS: ASCORBIC ACID 500 MG TABLET PO SCH (21:05)
[2017-09-26] MEDS: OMEPRAZOLE 20 MG CAPSULE.DR GT SCH (05:54)
[2017-09-26 08:00] VITALS: BP 127/82
[2017-09-26] MEDS: ACIDOPHILUS/BULGARICUS CHEW TAB GT SCH ×2 (09:16→20:55)
[2017-09-26] MEDS: BACLOFEN 20 MG TABLET GT SCH ×4 (09:16→20:55)
[2017-09-26] MEDS: DOCUSATE SODIUM 100 MG/10 ML LIQUID UDC GT SCH ×2 (09:16→20:55)
[2017-09-26] MEDS: HYDROGEN PEROXIDE 3% 118 ML BOTTLE TP SCH ×2 (09:17→20:56)
[2017-09-26] MEDS: SIMETHICONE 40 MG/0.6 ML, 30ML BOTTLE GT SCH ×3 (09:17→16:10)
[2017-09-26] MEDS: TRIAMCINOLONE ACET 0.1% OINT 15 GM TUBE TP SCH ×2 (09:17→20:56)
[2017-09-26] MEDS: NUTRISOURCE FIBER 4 GM PACKET GT SCH ×2 (09:17→20:56)
[2017-09-26] MEDS: CALMOSEPTINE 113 GM OINTMENT TP SCH ×2 (09:17→20:56)
[2017-09-26] MEDS: SERTRALINE HCL 50 MG TABLET GT SCH (09:17)
[2017-09-26] MEDS: METOPROLOL TARTRATE 50 MG TABLET GT SCH ×2 (09:18→20:56)
[2017-09-26] MEDS: GLUCERNA 1.2 1000ML LIQUID GT PRN (09:18)
[2017-09-26 20:00] VITALS: BP 111/75
[2017-09-26] MEDS: ASCORBIC ACID 500 MG TABLET PO SCH (20:56)
[2017-09-27] MEDS: GLUCERNA 1.2 1000ML LIQUID GT PRN (00:26)
[2017-09-27] MEDS: OMEPRAZOLE 20 MG CAPSULE.DR GT SCH (05:43)
[2017-09-27] MEDS: MULTIVIT, IRON, MIN NO. 8, FA TABLET GT SCH (05:44)
[2017-09-27 08:00] VITALS: BP 101/68
[2017-09-27] MEDS: BACLOFEN 20 MG TABLET GT SCH ×4 (09:00→20:40)
[2017-09-27] MEDS: NUTRISOURCE FIBER 4 GM PACKET GT SCH ×2 (09:00→20:40)
[2017-09-27] MEDS: DOCUSATE SODIUM 100 MG/10 ML LIQUID UDC GT SCH ×2 (09:00→20:40)
[2017-09-27] MEDS: METOPROLOL TARTRATE 50 MG TABLET GT SCH ×2 (09:00→20:40)
[2017-09-27] MEDS: SIMETHICONE 40 MG/0.6 ML, 30ML BOTTLE GT SCH ×3 (09:00→16:29)
[2017-09-27] MEDS: ACIDOPHILUS/BULGARICUS CHEW TAB GT SCH ×2 (09:00→20:40)
[2017-09-27] MEDS: TRIAMCINOLONE ACET 0.1% OINT 15 GM TUBE TP SCH ×2 (09:00→20:41)
[2017-09-27] MEDS: HYDROGEN PEROXIDE 3% 118 ML BOTTLE TP SCH ×2 (09:00→20:41)
[2017-09-27] MEDS: CALMOSEPTINE 113 GM OINTMENT TP SCH ×2 (09:00→20:40)
[2017-09-27] MEDS: SERTRALINE HCL 50 MG TABLET GT SCH (09:00)
[2017-09-27] MEDS: KETOCONAZOLE 2% SHAMPOO 120 ML BOTTLE TP SCH (09:00)
[2017-09-27] MEDS: ASCORBIC ACID 500 MG TABLET PO SCH (20:40)
[2017-09-27 20:55] VITALS: BP 138/85
[2017-09-28] MEDS: GLUCERNA 1.2 1000ML LIQUID GT PRN ×2 (00:39→10:12)
[2017-09-28] MEDS: OMEPRAZOLE 20 MG CAPSULE.DR GT SCH (05:48)
[2017-09-28 08:06] VITALS: BP 106/70
[2017-09-28] MEDS: BACLOFEN 20 MG TABLET GT SCH ×4 (09:00→20:30)
[2017-09-28] MEDS: NUTRISOURCE FIBER 4 GM PACKET GT SCH ×2 (09:00→20:31)
[2017-09-28] MEDS: TRIAMCINOLONE ACET 0.1% OINT 15 GM TUBE TP SCH ×2 (09:00→20:32)
[2017-09-28] MEDS: METOPROLOL TARTRATE 50 MG TABLET GT SCH ×2 (09:00→20:31)
[2017-09-28] MEDS: CALMOSEPTINE 113 GM OINTMENT TP SCH ×2 (09:00→20:31)
[2017-09-28] MEDS: SIMETHICONE 40 MG/0.6 ML, 30ML BOTTLE GT SCH ×3 (09:00→16:50)
[2017-09-28] MEDS: HYDROGEN PEROXIDE 3% 118 ML BOTTLE TP SCH ×2 (09:00→20:31)
[2017-09-28] MEDS: ACIDOPHILUS/BULGARICUS CHEW TAB GT SCH ×2 (09:00→20:30)
[2017-09-28] MEDS: DOCUSATE SODIUM 100 MG/10 ML LIQUID UDC GT SCH ×2 (09:00→20:29)
[2017-09-28] MEDS: SERTRALINE HCL 50 MG TABLET GT SCH (09:00)
[2017-09-28] MEDS: ASCORBIC ACID 500 MG TABLET PO SCH (20:31)
[2017-09-28 20:51] VITALS: BP 122/77
[2017-09-29] MEDS: GLUCERNA 1.2 1000ML LIQUID GT PRN (00:40)
[2017-09-29] MEDS: OMEPRAZOLE 20 MG CAPSULE.DR GT SCH (05:37)
[2017-09-29] MEDS: MULTIVIT, IRON, MIN NO. 8, FA TABLET GT SCH (05:37)
[2017-09-29 08:00] VITALS: BP 122/72
[2017-09-29] MEDS: NUTRISOURCE FIBER 4 GM PACKET GT SCH ×2 (09:50→20:58)
[2017-09-29] MEDS: METOPROLOL TARTRATE 50 MG TABLET GT SCH ×2 (09:50→20:58)
[2017-09-29] MEDS: SIMETHICONE 40 MG/0.6 ML, 30ML BOTTLE GT SCH ×3 (09:50→16:00)
[2017-09-29] MEDS: BACLOFEN 20 MG TABLET GT SCH ×4 (09:50→20:57)
[2017-09-29] MEDS: ACIDOPHILUS/BULGARICUS CHEW TAB GT SCH ×2 (09:50→20:57)
[2017-09-29] MEDS: DOCUSATE SODIUM 100 MG/10 ML LIQUID UDC GT SCH ×2 (09:50→20:57)
[2017-09-29] MEDS: SERTRALINE HCL 50 MG TABLET GT SCH (09:52)
[2017-09-29] MEDS: TRIAMCINOLONE ACET 0.1% OINT 15 GM TUBE TP SCH ×2 (09:52→20:58)
[2017-09-29] MEDS: HYDROGEN PEROXIDE 3% 118 ML BOTTLE TP SCH ×2 (09:52→20:58)
[2017-09-29] MEDS: CALMOSEPTINE 113 GM OINTMENT TP SCH ×2 (09:52→20:58)
[2017-09-29] MEDS: ACETAMINOPHEN 650 MG/20 ML UDC- SA PATIENTS-PAIN ONLY GT PRN (16:15)
[2017-09-29 20:41] VITALS: BP 114/73
[2017-09-29] MEDS: ASCORBIC ACID 500 MG TABLET PO SCH (20:58)
[2017-09-30] MEDS: OMEPRAZOLE 20 MG CAPSULE.DR GT SCH (06:56)
[2017-09-30 08:00] VITALS: BP 125/80
[2017-09-30] MEDS: ACIDOPHILUS/BULGARICUS CHEW TAB GT SCH ×2 (09:14→21:51)
[2017-09-30] MEDS: DOCUSATE SODIUM 100 MG/10 ML LIQUID UDC GT SCH ×2 (09:14→21:51)
[2017-09-30] MEDS: BACLOFEN 20 MG TABLET GT SCH ×4 (09:14→21:51)
[2017-09-30] MEDS: CALMOSEPTINE 113 GM OINTMENT TP SCH ×2 (09:15→21:52)
[2017-09-30] MEDS: METOPROLOL TARTRATE 50 MG TABLET GT SCH ×2 (09:15→21:52)
[2017-09-30] MEDS: HYDROGEN PEROXIDE 3% 118 ML BOTTLE TP SCH ×2 (09:15→21:52)
[2017-09-30] MEDS: SIMETHICONE 40 MG/0.6 ML, 30ML BOTTLE GT SCH ×3 (09:15→17:27)
[2017-09-30] MEDS: TRIAMCINOLONE ACET 0.1% OINT 15 GM TUBE TP SCH ×2 (09:15→21:52)
[2017-09-30] MEDS: NUTRISOURCE FIBER 4 GM PACKET GT SCH ×2 (09:15→21:52)
[2017-09-30] MEDS: SERTRALINE HCL 50 MG TABLET GT SCH (09:15)
[2017-09-30 21:20] VITALS: BP 118/76
[2017-09-30] MEDS: ASCORBIC ACID 500 MG TABLET PO SCH (21:52)
[2017-10-01] MEDS: MULTIVIT, IRON, MIN NO. 8, FA TABLET GT SCH (06:25)
[2017-10-01] MEDS: OMEPRAZOLE 20 MG CAPSULE.DR GT SCH (06:25)
[2017-10-01 08:00] VITALS: BP 124/83
[2017-10-01] MEDS: KETOCONAZOLE 2% SHAMPOO 120 ML BOTTLE TP SCH (08:59)
[2017-10-01] MEDS: ACIDOPHILUS/BULGARICUS CHEW TAB GT SCH ×2 (08:59→21:48)
[2017-10-01] MEDS: DOCUSATE SODIUM 100 MG/10 ML LIQUID UDC GT SCH ×2 (08:59→21:48)
[2017-10-01] MEDS: BACLOFEN 20 MG TABLET GT SCH ×4 (08:59→21:48)
[2017-10-01] MEDS: NUTRISOURCE FIBER 4 GM PACKET GT SCH ×2 (09:01→21:50)
[2017-10-01] MEDS: CALMOSEPTINE 113 GM OINTMENT TP SCH ×2 (09:01→21:51)
[2017-10-01] MEDS: SIMETHICONE 40 MG/0.6 ML, 30ML BOTTLE GT SCH ×3 (09:01→17:34)
[2017-10-01] MEDS: HYDROGEN PEROXIDE 3% 118 ML BOTTLE TP SCH ×2 (09:01→21:51)
[2017-10-01] MEDS: SERTRALINE HCL 50 MG TABLET GT SCH (09:01)
[2017-10-01] MEDS: METOPROLOL TARTRATE 50 MG TABLET GT SCH ×2 (09:01→21:50)
[2017-10-01 21:22] VITALS: BP 120/71
[2017-10-01] MEDS: ASCORBIC ACID 500 MG TABLET PO SCH (21:51)
[2017-10-02] MEDS: OMEPRAZOLE 20 MG CAPSULE.DR GT SCH (05:18)
[2017-10-02] MEDS: GLUCERNA 1.2 1000ML LIQUID GT PRN (06:46)
[2017-10-02 08:00] VITALS: BP 118/85
[2017-10-02] MEDS: DOCUSATE SODIUM 100 MG/10 ML LIQUID UDC GT SCH ×2 (10:00→21:21)
[2017-10-02] MEDS: SIMETHICONE 40 MG/0.6 ML, 30ML BOTTLE GT SCH ×3 (10:00→16:53)
[2017-10-02] MEDS: HYDROGEN PEROXIDE 3% 118 ML BOTTLE TP SCH ×2 (10:00→21:22)
[2017-10-02] MEDS: ACIDOPHILUS/BULGARICUS CHEW TAB GT SCH ×2 (10:00→21:21)
[2017-10-02] MEDS: CALMOSEPTINE 113 GM OINTMENT TP SCH ×2 (10:00→21:21)
[2017-10-02] MEDS: NUTRISOURCE FIBER 4 GM PACKET GT SCH ×2 (10:00→21:21)
[2017-10-02] MEDS: METOPROLOL TARTRATE 50 MG TABLET GT SCH ×2 (10:00→21:21)
[2017-10-02] MEDS: SERTRALINE HCL 50 MG TABLET GT SCH (10:00)
[2017-10-02] MEDS: BACLOFEN 20 MG TABLET GT SCH ×4 (10:00→21:21)
[2017-10-02] MEDS: ACETAMINOPHEN 650 MG/20 ML UDC- SA PATIENTS-PAIN ONLY GT PRN (10:06)
[2017-10-02 20:51] VITALS: BP 127/74
[2017-10-02] MEDS: ASCORBIC ACID 500 MG TABLET PO SCH (21:21)
[2017-10-03] MEDS: GLUCERNA 1.2 1000ML LIQUID GT PRN (04:05)
[2017-10-03] MEDS: OMEPRAZOLE 20 MG CAPSULE.DR GT SCH (05:32)
[2017-10-03] MEDS: MULTIVIT, IRON, MIN NO. 8, FA TABLET GT SCH (05:32)
[2017-10-03 08:00] VITALS: BP 112/70
[2017-10-03] MEDS: MEDROXYPROGESTERONE ACET IM SCH (09:00)
[2017-10-03] MEDS: ACIDOPHILUS/BULGARICUS CHEW TAB GT SCH ×2 (09:08→20:42)
[2017-10-03] MEDS: DOCUSATE SODIUM 100 MG/10 ML LIQUID UDC GT SCH ×2 (09:08→20:42)
[2017-10-03] MEDS: BACLOFEN 20 MG TABLET GT SCH ×4 (09:09→20:42)
[2017-10-03] MEDS: METOPROLOL TARTRATE 50 MG TABLET GT SCH ×2 (09:10→20:43)
[2017-10-03] MEDS: CALMOSEPTINE 113 GM OINTMENT TP SCH ×2 (09:10→20:43)
[2017-10-03] MEDS: NUTRISOURCE FIBER 4 GM PACKET GT SCH ×2 (09:10→20:43)
[2017-10-03] MEDS: HYDROGEN PEROXIDE 3% 118 ML BOTTLE TP SCH ×2 (09:10→20:44)
[2017-10-03] MEDS: SIMETHICONE 40 MG/0.6 ML, 30ML BOTTLE GT SCH ×3 (09:10→17:09)
[2017-10-03] MEDS: SERTRALINE HCL 50 MG TABLET GT SCH (09:10)
[2017-10-03 20:00] VITALS: BP 109/78
[2017-10-03] MEDS: ASCORBIC ACID 500 MG TABLET PO SCH (20:43)
[2017-10-04] MEDS: OMEPRAZOLE 20 MG CAPSULE.DR GT SCH (05:50)
[2017-10-04] MEDS: GLUCERNA 1.2 1000ML LIQUID GT PRN (05:50)
[2017-10-04 08:00] VITALS: BP 131/84
[2017-10-04] MEDS: KETOCONAZOLE 2% SHAMPOO 120 ML BOTTLE TP SCH (08:00)
[2017-10-04] MEDS: SERTRALINE HCL 50 MG TABLET GT SCH (09:00)
[2017-10-04] MEDS: NUTRISOURCE FIBER 4 GM PACKET GT SCH ×2 (09:00→21:16)
[2017-10-04] MEDS: BACLOFEN 20 MG TABLET GT SCH ×4 (09:00→21:15)
[2017-10-04] MEDS: DOCUSATE SODIUM 100 MG/10 ML LIQUID UDC GT SCH ×2 (09:00→21:15)
[2017-10-04] MEDS: ACIDOPHILUS/BULGARICUS CHEW TAB GT SCH ×2 (09:00→21:15)
[2017-10-04] MEDS: HYDROGEN PEROXIDE 3% 118 ML BOTTLE TP SCH ×2 (09:00→21:16)
[2017-10-04] MEDS: METOPROLOL TARTRATE 50 MG TABLET GT SCH ×2 (09:00→21:16)
[2017-10-04] MEDS: SIMETHICONE 40 MG/0.6 ML, 30ML BOTTLE GT SCH ×3 (09:00→16:55)
[2017-10-04] MEDS: CALMOSEPTINE 113 GM OINTMENT TP SCH ×2 (09:00→21:16)
--- NOTE | 2017-10-04 12:43 | NUR ---
SEEN BY GLENN MORGAN.
[2017-10-04 20:00] VITALS: BP 113/78
[2017-10-04] MEDS: ASCORBIC ACID 500 MG TABLET PO SCH (21:16)
[2017-10-05] MEDS: GLUCERNA 1.2 1000ML LIQUID GT PRN ×2 (01:21→22:57)
[2017-10-05] MEDS: OMEPRAZOLE 20 MG CAPSULE.DR GT SCH (05:15)
[2017-10-05] MEDS: MULTIVIT, IRON, MIN NO. 8, FA TABLET GT SCH (05:31)
[2017-10-05 08:00] VITALS: BP 128/74
[2017-10-05] MEDS: BACLOFEN 20 MG TABLET GT SCH ×4 (08:50→20:56)
[2017-10-05] MEDS: ACIDOPHILUS/BULGARICUS CHEW TAB GT SCH ×2 (08:50→20:56)
[2017-10-05] MEDS: DOCUSATE SODIUM 100 MG/10 ML LIQUID UDC GT SCH ×2 (08:50→20:56)
[2017-10-05] MEDS: SIMETHICONE 40 MG/0.6 ML, 30ML BOTTLE GT SCH ×3 (08:50→16:44)
[2017-10-05] MEDS: METOPROLOL TARTRATE 50 MG TABLET GT SCH ×2 (08:50→20:56)
[2017-10-05] MEDS: SERTRALINE HCL 50 MG TABLET GT SCH (08:51)
[2017-10-05] MEDS: HYDROGEN PEROXIDE 3% 118 ML BOTTLE TP SCH ×2 (08:51→20:57)
[2017-10-05] MEDS: CALMOSEPTINE 113 GM OINTMENT TP SCH ×2 (08:51→20:57)
[2017-10-05] MEDS: NUTRISOURCE FIBER 4 GM PACKET GT SCH ×2 (08:51→20:57)
[2017-10-05] MEDS: ACETAMINOPHEN 650 MG/20 ML UDC- SA PATIENTS-PAIN ONLY GT PRN (16:44)
[2017-10-05 20:00] VITALS: BP 129/89
[2017-10-05] MEDS: ASCORBIC ACID 500 MG TABLET PO SCH (20:57)
[2017-10-06] MEDS: OMEPRAZOLE 20 MG CAPSULE.DR GT SCH (05:45)
[2017-10-06 08:07] VITALS: BP 111/71
[2017-10-06] MEDS: ACIDOPHILUS/BULGARICUS CHEW TAB GT SCH ×2 (08:50→20:48)
[2017-10-06] MEDS: BACLOFEN 20 MG TABLET GT SCH ×4 (08:50→20:48)
[2017-10-06] MEDS: DOCUSATE SODIUM 100 MG/10 ML LIQUID UDC GT SCH ×2 (08:50→20:48)
[2017-10-06] MEDS: SIMETHICONE 40 MG/0.6 ML, 30ML BOTTLE GT SCH ×3 (08:52→17:55)
[2017-10-06] MEDS: SERTRALINE HCL 50 MG TABLET GT SCH (08:52)
[2017-10-06] MEDS: CALMOSEPTINE 113 GM OINTMENT TP SCH ×2 (08:52→20:49)
[2017-10-06] MEDS: HYDROGEN PEROXIDE 3% 118 ML BOTTLE TP SCH ×2 (08:52→20:49)
[2017-10-06] MEDS: METOPROLOL TARTRATE 50 MG TABLET GT SCH ×2 (08:52→20:49)
[2017-10-06] MEDS: NUTRISOURCE FIBER 4 GM PACKET GT SCH ×2 (08:52→20:49)
[2017-10-06 20:00] VITALS: BP 114/75
[2017-10-06] MEDS: ASCORBIC ACID 500 MG TABLET PO SCH (20:49)
[2017-10-06] MEDS: GLUCERNA 1.2 1000ML LIQUID GT PRN (20:57)
[2017-10-07] MEDS: OMEPRAZOLE 20 MG CAPSULE.DR GT SCH (05:54)
[2017-10-07] MEDS: MULTIVIT, IRON, MIN NO. 8, FA TABLET GT SCH (05:54)
[2017-10-07 08:00] VITALS: BP 123/77
[2017-10-07] MEDS: BACLOFEN 20 MG TABLET GT SCH ×4 (08:36→20:51)
[2017-10-07] MEDS: ACIDOPHILUS/BULGARICUS CHEW TAB GT SCH ×2 (08:36→20:51)
[2017-10-07] MEDS: DOCUSATE SODIUM 100 MG/10 ML LIQUID UDC GT SCH ×2 (08:36→20:51)
[2017-10-07] MEDS: SIMETHICONE 40 MG/0.6 ML, 30ML BOTTLE GT SCH ×3 (08:37→16:30)
[2017-10-07] MEDS: HYDROGEN PEROXIDE 3% 118 ML BOTTLE TP SCH ×2 (08:37→20:52)
[2017-10-07] MEDS: NUTRISOURCE FIBER 4 GM PACKET GT SCH ×2 (08:37→20:51)
[2017-10-07] MEDS: CALMOSEPTINE 113 GM OINTMENT TP SCH ×2 (08:37→20:51)
[2017-10-07] MEDS: SERTRALINE HCL 50 MG TABLET GT SCH (08:37)
[2017-10-07] MEDS: METOPROLOL TARTRATE 50 MG TABLET GT SCH ×2 (08:37→20:51)
[2017-10-07] MEDS: ASCORBIC ACID 500 MG TABLET PO SCH (20:51)
[2017-10-07 20:59] VITALS: BP 129/81
[2017-10-08] MEDS: OMEPRAZOLE 20 MG CAPSULE.DR GT SCH (05:40)
[2017-10-08 07:42] LABS: BASOPHILS # (AUTO) 0.1 K/uL (0.0-8.0); BASOPHILS % (AUTO) 1.1 % (0.0-2.0); EOSINOPHILS # (AUTO) 0.2 K/uL (0.0-0.7); EOSINOPHILS % (AUTO) 3.5 % (0.0-7.0); HEMATOCRIT 36.1 % (31.2-41.9); HEMOGLOBIN 11.4 g/dL (10.9-14.3); LYMPHOCYTES # (AUTO) 2.9 K/uL (20.0-40.0); LYMPHOCYTES % (AUTO) 48.9 % (20.5-51.5); MEAN CORPUSCULAR HEMOGLOBIN 22.1 uug (24.7-32.8); MEAN CORPUSCULAR HGB CONC 32 g/dL (32.3-35.6); MEAN CORPUSCULAR VOLUME 70.4 fL (75.5-95.3); MONOCYTES # (AUTO) 0.6 K/uL (2.0-10.0); MONOCYTES % (AUTO) 10.5 % (0.0-11.0); NEUTROPHILS # (AUTO) 2.1 K/uL (1.8-8.9); PLATELET COUNT (AUTO) 278 K/uL (179-408); RED BLOOD CELL COUNT(AUTO) 5.13 MIL/uL (3.63-4.92); WHITE BLOOD COUNT (AUTO) 5.9 K/uL (3.8-11.8)
[2017-10-08 07:56] LABS: BILIRUBIN,TOTAL 0.2 mg/dL (0.2-1.0); CREATININE 0.8 mg/dL (0.6-1.3); POTASSIUM 3.8 mmol/L (3.5-5.1)
[2017-10-08 08:00] VITALS: BP 101/65
[2017-10-08 08:03] LABS: THYROID STIMULATING HORMONE 1.375 mIU/mL (0.358-3.740)
[2017-10-08] MEDS: SIMETHICONE 40 MG/0.6 ML, 30ML BOTTLE GT SCH ×3 (08:03→17:16)
[2017-10-08] MEDS: METOPROLOL TARTRATE 50 MG TABLET GT SCH ×2 (08:03→20:35)
[2017-10-08] MEDS: NUTRISOURCE FIBER 4 GM PACKET GT SCH ×2 (08:03→20:35)
[2017-10-08] MEDS: KETOCONAZOLE 2% SHAMPOO 120 ML BOTTLE TP SCH (08:03)
[2017-10-08] MEDS: ACIDOPHILUS/BULGARICUS CHEW TAB GT SCH ×2 (08:03→20:34)
[2017-10-08] MEDS: DOCUSATE SODIUM 100 MG/10 ML LIQUID UDC GT SCH ×2 (08:03→20:34)
[2017-10-08] MEDS: BACLOFEN 20 MG TABLET GT SCH ×4 (08:03→20:34)
[2017-10-08] MEDS: CALMOSEPTINE 113 GM OINTMENT TP SCH ×2 (08:04→20:35)
[2017-10-08] MEDS: SERTRALINE HCL 50 MG TABLET GT SCH (08:04)
[2017-10-08] MEDS: HYDROGEN PEROXIDE 3% 118 ML BOTTLE TP SCH ×2 (08:04→20:35)
[2017-10-08 09:41] LABS: BASOPHILS % (MANUAL) 2 % (0-2); EOSINOPHILS % (MANUAL) 5 % (0-8); LYMPHOCYTES % (MANUAL) 53 % (20-40); MONOCYTES % (MANUAL) 11 % (2-10); NEUTROPHILS % (MANUAL) 29 % (42-75)
[2017-10-08] MEDS: ASCORBIC ACID 500 MG TABLET PO SCH (20:35)
[2017-10-08 22:25] VITALS: BP 126/82
[2017-10-09] MEDS: OMEPRAZOLE 20 MG CAPSULE.DR GT SCH (05:30)
[2017-10-09] MEDS: MULTIVIT, IRON, MIN NO. 8, FA TABLET GT SCH (05:30)
[2017-10-09 08:00] VITALS: BP 100/66
[2017-10-09] MEDS: NUTRISOURCE FIBER 4 GM PACKET GT SCH ×2 (09:00→20:48)
[2017-10-09] MEDS: ACIDOPHILUS/BULGARICUS CHEW TAB GT SCH ×2 (09:00→20:46)
[2017-10-09] MEDS: SERTRALINE HCL 50 MG TABLET GT SCH (09:00)
[2017-10-09] MEDS: HYDROGEN PEROXIDE 3% 118 ML BOTTLE TP SCH ×2 (09:00→20:50)
[2017-10-09] MEDS: CALMOSEPTINE 113 GM OINTMENT TP SCH ×2 (09:00→20:50)
[2017-10-09] MEDS: METOPROLOL TARTRATE 50 MG TABLET GT SCH ×2 (09:00→20:47)
[2017-10-09] MEDS: DOCUSATE SODIUM 100 MG/10 ML LIQUID UDC GT SCH ×2 (09:00→20:46)
[2017-10-09] MEDS: SIMETHICONE 40 MG/0.6 ML, 30ML BOTTLE GT SCH ×3 (09:00→17:37)
[2017-10-09] MEDS: BACLOFEN 20 MG TABLET GT SCH ×4 (09:00→20:46)
[2017-10-09] MEDS: GLUCERNA 1.2 1000ML LIQUID GT PRN (17:37)
[2017-10-09] MEDS: ASCORBIC ACID 500 MG TABLET PO SCH (20:49)
[2017-10-09] MEDS: TRIAMCINOLONE ACET 0.1% OINT 15 GM TUBE TP SCH (20:50)
[2017-10-09 21:50] VITALS: BP 109/67
[2017-10-10] MEDS: OMEPRAZOLE 20 MG CAPSULE.DR GT SCH (05:22)
[2017-10-10] MEDS: DOCUSATE SODIUM 100 MG/10 ML LIQUID UDC GT SCH ×2 (08:42→21:40)
[2017-10-10] MEDS: ACIDOPHILUS/BULGARICUS CHEW TAB GT SCH ×2 (08:42→21:40)
[2017-10-10] MEDS: BACLOFEN 20 MG TABLET GT SCH ×4 (08:42→21:40)
[2017-10-10] MEDS: SIMETHICONE 40 MG/0.6 ML, 30ML BOTTLE GT SCH ×3 (08:43→17:25)
[2017-10-10] MEDS: NUTRISOURCE FIBER 4 GM PACKET GT SCH ×2 (08:43→21:40)
[2017-10-10] MEDS: SERTRALINE HCL 50 MG TABLET GT SCH (08:43)
[2017-10-10] MEDS: METOPROLOL TARTRATE 50 MG TABLET GT SCH ×2 (08:43→21:40)
[2017-10-10] MEDS: TRIAMCINOLONE ACET 0.1% OINT 15 GM TUBE TP SCH ×2 (08:44→21:41)
[2017-10-10] MEDS: CALMOSEPTINE 113 GM OINTMENT TP SCH ×2 (08:44→21:40)
[2017-10-10] MEDS: HYDROGEN PEROXIDE 3% 118 ML BOTTLE TP SCH ×2 (08:44→21:40)
[2017-10-10 09:28] VITALS: BP 112/71
--- NOTE | 2017-10-10 14:00 | NUR ---
seen and examined by Wilma Rodriguez ,no new orders.
--- NOTE | 2017-10-10 14:00 | NUR ---
seen and examined by dr Heaton,no new orders noted.
[2017-10-10] MEDS: GLUCERNA 1.2 1000ML LIQUID GT PRN (17:25)
[2017-10-10 20:00] VITALS: BP 116/78
[2017-10-10] MEDS: ASCORBIC ACID 500 MG TABLET PO SCH (21:40)
[2017-10-11] MEDS: OMEPRAZOLE 20 MG CAPSULE.DR GT SCH (05:06)
[2017-10-11] MEDS: MULTIVIT, IRON, MIN NO. 8, FA TABLET GT SCH (06:20)
[2017-10-11 08:00] VITALS: BP 117/81
[2017-10-11] MEDS: KETOCONAZOLE 2% SHAMPOO 120 ML BOTTLE TP SCH (08:28)
[2017-10-11] MEDS: ACIDOPHILUS/BULGARICUS CHEW TAB GT SCH ×2 (08:29→21:17)
[2017-10-11] MEDS: BACLOFEN 20 MG TABLET GT SCH ×4 (08:29→21:17)
[2017-10-11] MEDS: DOCUSATE SODIUM 100 MG/10 ML LIQUID UDC GT SCH ×2 (08:29→21:17)
[2017-10-11] MEDS: METOPROLOL TARTRATE 50 MG TABLET GT SCH ×2 (08:31→21:18)
[2017-10-11] MEDS: SERTRALINE HCL 50 MG TABLET GT SCH (08:32)
[2017-10-11] MEDS: SIMETHICONE 40 MG/0.6 ML, 30ML BOTTLE GT SCH ×3 (08:32→17:00)
[2017-10-11] MEDS: NUTRISOURCE FIBER 4 GM PACKET GT SCH ×2 (08:32→21:18)
[2017-10-11] MEDS: CALMOSEPTINE 113 GM OINTMENT TP SCH ×2 (08:32→21:19)
[2017-10-11] MEDS: TRIAMCINOLONE ACET 0.1% OINT 15 GM TUBE TP SCH ×2 (08:32→21:19)
[2017-10-11] MEDS: HYDROGEN PEROXIDE 3% 118 ML BOTTLE TP SCH ×2 (08:32→21:19)
[2017-10-11 20:26] VITALS: BP 127/79
[2017-10-11] MEDS: ASCORBIC ACID 500 MG TABLET PO SCH (21:19)
[2017-10-12] MEDS: OMEPRAZOLE 20 MG CAPSULE.DR GT SCH (05:50)
[2017-10-12 08:00] VITALS: BP 118/69
[2017-10-12] MEDS: DOCUSATE SODIUM 100 MG/10 ML LIQUID UDC GT SCH ×2 (09:18→20:18)
[2017-10-12] MEDS: ACIDOPHILUS/BULGARICUS CHEW TAB GT SCH ×2 (09:19→20:18)
[2017-10-12] MEDS: BACLOFEN 20 MG TABLET GT SCH ×4 (09:20→20:18)
[2017-10-12] MEDS: METOPROLOL TARTRATE 50 MG TABLET GT SCH ×2 (09:21→20:19)
[2017-10-12] MEDS: SERTRALINE HCL 50 MG TABLET GT SCH (09:21)
[2017-10-12] MEDS: NUTRISOURCE FIBER 4 GM PACKET GT SCH ×2 (09:21→20:18)
[2017-10-12] MEDS: SIMETHICONE 40 MG/0.6 ML, 30ML BOTTLE GT SCH ×3 (09:21→17:31)
[2017-10-12] MEDS: CALMOSEPTINE 113 GM OINTMENT TP SCH ×2 (09:22→20:19)
[2017-10-12] MEDS: TRIAMCINOLONE ACET 0.1% OINT 15 GM TUBE TP SCH ×2 (09:22→20:19)
[2017-10-12] MEDS: HYDROGEN PEROXIDE 3% 118 ML BOTTLE TP SCH ×2 (09:22→20:19)
[2017-10-12] MEDS: GLUCERNA 1.2 1000ML LIQUID GT PRN (14:00)
[2017-10-12 20:15] VITALS: BP 147/86
[2017-10-12] MEDS: ASCORBIC ACID 500 MG TABLET PO SCH (20:19)
[2017-10-13] MEDS: OMEPRAZOLE 20 MG CAPSULE.DR GT SCH (05:33)
[2017-10-13] MEDS: MULTIVIT, IRON, MIN NO. 8, FA TABLET GT SCH (05:33)
[2017-10-13 08:00] VITALS: BP 121/77
[2017-10-13] MEDS: SIMETHICONE 40 MG/0.6 ML, 30ML BOTTLE GT SCH ×3 (09:00→17:31)
[2017-10-13] MEDS: HYDROGEN PEROXIDE 3% 118 ML BOTTLE TP SCH ×2 (09:00→21:57)
[2017-10-13] MEDS: ACIDOPHILUS/BULGARICUS CHEW TAB GT SCH ×2 (09:00→21:57)
[2017-10-13] MEDS: BACLOFEN 20 MG TABLET GT SCH ×4 (09:00→21:57)
[2017-10-13] MEDS: SERTRALINE HCL 50 MG TABLET GT SCH (09:00)
[2017-10-13] MEDS: CALMOSEPTINE 113 GM OINTMENT TP SCH ×2 (09:00→21:57)
[2017-10-13] MEDS: NUTRISOURCE FIBER 4 GM PACKET GT SCH ×2 (09:00→21:57)
[2017-10-13] MEDS: DOCUSATE SODIUM 100 MG/10 ML LIQUID UDC GT SCH ×2 (09:00→21:57)
[2017-10-13] MEDS: TRIAMCINOLONE ACET 0.1% OINT 15 GM TUBE TP SCH ×2 (09:00→21:57)
[2017-10-13] MEDS: METOPROLOL TARTRATE 50 MG TABLET GT SCH ×2 (09:00→21:57)
[2017-10-13] MEDS: GLUCERNA 1.2 1000ML LIQUID GT PRN (12:40)
[2017-10-13 20:34] VITALS: BP 142/86
[2017-10-13] MEDS: ASCORBIC ACID 500 MG TABLET PO SCH (21:57)
[2017-10-14] MEDS: OMEPRAZOLE 20 MG CAPSULE.DR GT SCH (06:34)
[2017-10-14 08:00] VITALS: BP 126/84
[2017-10-14] MEDS: ACIDOPHILUS/BULGARICUS CHEW TAB GT SCH ×2 (08:05→21:00)
[2017-10-14] MEDS: SIMETHICONE 40 MG/0.6 ML, 30ML BOTTLE GT SCH ×3 (08:05→17:26)
[2017-10-14] MEDS: BACLOFEN 20 MG TABLET GT SCH ×4 (08:05→21:00)
[2017-10-14] MEDS: SERTRALINE HCL 50 MG TABLET GT SCH (08:05)
[2017-10-14] MEDS: NUTRISOURCE FIBER 4 GM PACKET GT SCH ×2 (08:05→21:00)
[2017-10-14] MEDS: DOCUSATE SODIUM 100 MG/10 ML LIQUID UDC GT SCH ×2 (08:05→21:00)
[2017-10-14] MEDS: CALMOSEPTINE 113 GM OINTMENT TP SCH ×2 (08:07→21:00)
[2017-10-14] MEDS: HYDROGEN PEROXIDE 3% 118 ML BOTTLE TP SCH ×2 (08:07→21:00)
[2017-10-14] MEDS: TRIAMCINOLONE ACET 0.1% OINT 15 GM TUBE TP SCH ×2 (08:07→21:00)
[2017-10-14] MEDS: METOPROLOL TARTRATE 50 MG TABLET GT SCH ×2 (08:09→21:00)
[2017-10-14] MEDS: GLUCERNA 1.2 1000ML LIQUID GT PRN (15:18)
[2017-10-14] MEDS: ASCORBIC ACID 500 MG TABLET PO SCH (21:00)
[2017-10-14 21:15] VITALS: BP 121/73
[2017-10-15] MEDS: OMEPRAZOLE 20 MG CAPSULE.DR GT SCH (06:35)
[2017-10-15] MEDS: MULTIVIT, IRON, MIN NO. 8, FA TABLET GT SCH (06:35)
[2017-10-15 08:00] VITALS: BP 123/74
[2017-10-15] MEDS: KETOCONAZOLE 2% SHAMPOO 120 ML BOTTLE TP SCH (08:00)
[2017-10-15] MEDS: METOPROLOL TARTRATE 50 MG TABLET GT SCH ×2 (09:00→21:00)
[2017-10-15] MEDS: TRIAMCINOLONE ACET 0.1% OINT 15 GM TUBE TP SCH (09:00)
[2017-10-15] MEDS: DOCUSATE SODIUM 100 MG/10 ML LIQUID UDC GT SCH ×2 (09:00→21:00)
[2017-10-15] MEDS: HYDROGEN PEROXIDE 3% 118 ML BOTTLE TP SCH ×2 (09:00→21:00)
[2017-10-15] MEDS: NUTRISOURCE FIBER 4 GM PACKET GT SCH ×2 (09:00→21:00)
[2017-10-15] MEDS: BACLOFEN 20 MG TABLET GT SCH ×4 (09:00→21:00)
[2017-10-15] MEDS: CALMOSEPTINE 113 GM OINTMENT TP SCH ×2 (09:00→21:00)
[2017-10-15] MEDS: SIMETHICONE 40 MG/0.6 ML, 30ML BOTTLE GT SCH ×3 (09:00→16:43)
[2017-10-15] MEDS: ACIDOPHILUS/BULGARICUS CHEW TAB GT SCH ×2 (09:00→21:00)
[2017-10-15] MEDS: SERTRALINE HCL 50 MG TABLET GT SCH (09:00)
--- NOTE | 2017-10-15 10:41 | NUR ---
Seen by Dalia CARMICHAEL, treatment to back rashes changed to apply triamcinolone 0.1% cream and nystatin cream qshift x7 days.
--- NOTE | 2017-10-15 11:47 | NUR ---
Seen by Dalia CARMICHAEL with no new order.
[2017-10-15 20:57] VITALS: BP 127/69
[2017-10-15] MEDS: ASCORBIC ACID 500 MG TABLET PO SCH (21:00)
[2017-10-15] MEDS: TRIAMCINOLONE ACET 0.1% CREAM 15 GM TUBE TP SCH (21:00)
[2017-10-15] MEDS: NYSTATIN CREAM 30 GM TUBE TP SCH (21:00)
[2017-10-16] MEDS: OMEPRAZOLE 20 MG CAPSULE.DR GT SCH (06:31)
[2017-10-16 08:00] VITALS: BP 107/68
[2017-10-16] MEDS: BACLOFEN 20 MG TABLET GT SCH ×4 (08:33→20:17)
[2017-10-16] MEDS: DOCUSATE SODIUM 100 MG/10 ML LIQUID UDC GT SCH ×2 (08:33→20:17)
[2017-10-16] MEDS: ACIDOPHILUS/BULGARICUS CHEW TAB GT SCH ×2 (08:33→20:17)
[2017-10-16] MEDS: TRIAMCINOLONE ACET 0.1% CREAM 15 GM TUBE TP SCH ×2 (08:34→20:18)
[2017-10-16] MEDS: SERTRALINE HCL 50 MG TABLET GT SCH (08:34)
[2017-10-16] MEDS: CALMOSEPTINE 113 GM OINTMENT TP SCH ×2 (08:34→20:18)
[2017-10-16] MEDS: NUTRISOURCE FIBER 4 GM PACKET GT SCH ×2 (08:34→20:18)
[2017-10-16] MEDS: METOPROLOL TARTRATE 50 MG TABLET GT SCH ×2 (08:34→20:18)
[2017-10-16] MEDS: HYDROGEN PEROXIDE 3% 118 ML BOTTLE TP SCH ×2 (08:34→20:18)
[2017-10-16] MEDS: SIMETHICONE 40 MG/0.6 ML, 30ML BOTTLE GT SCH ×3 (08:34→17:45)
[2017-10-16] MEDS: NYSTATIN CREAM 30 GM TUBE TP SCH ×2 (08:35→20:18)
--- NOTE | 2017-10-16 13:53 | NUR ---
seen and examined by Dr arellano,no new orders.
--- NOTE | 2017-10-16 16:38 | NUR ---
INTERDISCIPLINARY PLAN OF CARE CONFERENCE was held today. Patient's family was invited to the meeting, but they were unable to attend. Dr. Heaton and the Interdisciplinary Team reviewed the current plan of care in detail. RN provided updates on patient's medical condition and current treatments for skin rashes. See RN IDT conference notes. No major changes were reported. See also all other disciplines IDT notes and physician's progress notes for additional details.
--- NOTE | 2017-10-16 17:40 | NUR ---
Pharmacy Update from today's 10/16/17 IDT Meeting VS: Temp 97.8 BP 127/69 HR 79 LABS: (from 10/08/17) Wbc 5.9H/H 11.8/36.1Plt 278 Na 139K 3.8Cl 105CO2 25BUN/SCr 15/0.8 BS 117 Ca 8.8A1c 5.7TSH 1.375 MEDICATION USE REVIEWED: > Pt is not on any anti-epileptic medications > Pt is on Zoloft 50mg daily for depression m/b episodes of crying; No GDR planned for pt d/t contraindication of persisten cry episodes and repeated failed GDRs in the past (see MD note). Patient had x0 in August (previously x0 September, x0 October, x1 November, x1 Dec, x0 Jan, x2 Feb, x4 Mar, x0 Apr, x7 May, x0 Jun, x4 July) > Pt is on depo-provera [id number] for heavy menstruation, last given 10/03/17 > PRN MED USAGE: (August) Tylenol 650mg for mild pain used x2 Tylenol for temp x0 Tylenol 1000mg mod pain x1 [place] severe pain x0 Bisacodyl x1 Immodium x0 NEW ORDERS NOTED: > Triamcinolone 0.1% 09/24-09/30 for back rash > Triamcinolone + Nystatin 10/15 x 7 days for back rash > Rodriguez Flush enema daily PRN for excessive bowel gas added 09/23 Patient was reviewed and discussed in depth, no medication concerns at this time. Patient relatively stable at this time. Will follow
[2017-10-16] MEDS: ASCORBIC ACID 500 MG TABLET PO SCH (20:18)
[2017-10-17] MEDS: OMEPRAZOLE 20 MG CAPSULE.DR GT SCH (05:24)
[2017-10-17] MEDS: GLUCERNA 1.2 1000ML LIQUID GT PRN (05:25)
[2017-10-17] MEDS: MULTIVIT, IRON, MIN NO. 8, FA TABLET GT SCH (05:37)
[2017-10-17 08:00] VITALS: BP_SYST 103; BP_SYST 107; BP_DIAS 61; BP_DIAS 74
[2017-10-17] MEDS: ACIDOPHILUS/BULGARICUS CHEW TAB GT SCH ×2 (09:25→21:02)
[2017-10-17] MEDS: BACLOFEN 20 MG TABLET GT SCH ×4 (09:25→21:02)
[2017-10-17] MEDS: DOCUSATE SODIUM 100 MG/10 ML LIQUID UDC GT SCH ×2 (09:25→21:02)
[2017-10-17] MEDS: METOPROLOL TARTRATE 50 MG TABLET GT SCH ×2 (09:26→21:04)
[2017-10-17] MEDS: SIMETHICONE 40 MG/0.6 ML, 30ML BOTTLE GT SCH ×3 (09:26→16:51)
[2017-10-17] MEDS: TRIAMCINOLONE ACET 0.1% CREAM 15 GM TUBE TP SCH ×2 (09:27→21:04)
[2017-10-17] MEDS: NUTRISOURCE FIBER 4 GM PACKET GT SCH ×2 (09:27→21:04)
[2017-10-17] MEDS: HYDROGEN PEROXIDE 3% 118 ML BOTTLE TP SCH ×2 (09:27→21:04)
[2017-10-17] MEDS: CALMOSEPTINE 113 GM OINTMENT TP SCH ×2 (09:27→21:04)
[2017-10-17] MEDS: SERTRALINE HCL 50 MG TABLET GT SCH (09:27)
[2017-10-17] MEDS: NYSTATIN CREAM 30 GM TUBE TP SCH ×2 (09:28→21:04)
[2017-10-17 20:30] VITALS: BP 118/76
[2017-10-17] MEDS: ASCORBIC ACID 500 MG TABLET PO SCH (21:04)
[2017-10-18] MEDS: OMEPRAZOLE 20 MG CAPSULE.DR GT SCH (05:31)
[2017-10-18] MEDS: GLUCERNA 1.2 1000ML LIQUID GT PRN (05:32)
[2017-10-18] MEDS: BACLOFEN 20 MG TABLET GT SCH ×4 (08:44→21:16)
[2017-10-18] MEDS: KETOCONAZOLE 2% SHAMPOO 120 ML BOTTLE TP SCH (08:44)
[2017-10-18] MEDS: DOCUSATE SODIUM 100 MG/10 ML LIQUID UDC GT SCH ×2 (08:44→21:16)
[2017-10-18] MEDS: ACIDOPHILUS/BULGARICUS CHEW TAB GT SCH ×2 (08:44→21:16)
[2017-10-18] MEDS: SIMETHICONE 40 MG/0.6 ML, 30ML BOTTLE GT SCH ×3 (08:47→17:00)
[2017-10-18] MEDS: METOPROLOL TARTRATE 50 MG TABLET GT SCH ×2 (08:47→21:16)
[2017-10-18] MEDS: TRIAMCINOLONE ACET 0.1% CREAM 15 GM TUBE TP SCH ×2 (08:48→21:17)
[2017-10-18] MEDS: HYDROGEN PEROXIDE 3% 118 ML BOTTLE TP SCH ×2 (08:48→21:17)
[2017-10-18] MEDS: NYSTATIN CREAM 30 GM TUBE TP SCH ×2 (08:48→21:17)
[2017-10-18] MEDS: NUTRISOURCE FIBER 4 GM PACKET GT SCH ×2 (08:48→21:16)
[2017-10-18] MEDS: SERTRALINE HCL 50 MG TABLET GT SCH (08:48)
[2017-10-18] MEDS: CALMOSEPTINE 113 GM OINTMENT TP SCH ×2 (08:48→21:16)
[2017-10-18 11:43] VITALS: BP 113/60
--- NOTE | 2017-10-18 13:56 | NUR ---
PT. SEEN BY GLENN MORGAN.
[2017-10-18 20:00] VITALS: BP 123/86
[2017-10-18] MEDS: ASCORBIC ACID 500 MG TABLET PO SCH (21:16)
[2017-10-19] MEDS: GLUCERNA 1.2 1000ML LIQUID GT PRN ×2 (04:00→22:53)
[2017-10-19] MEDS: OMEPRAZOLE 20 MG CAPSULE.DR GT SCH (05:34)
[2017-10-19] MEDS: MULTIVIT, IRON, MIN NO. 8, FA TABLET GT SCH (05:34)
[2017-10-19] MEDS: ACIDOPHILUS/BULGARICUS CHEW TAB GT SCH ×2 (08:39→21:05)
[2017-10-19] MEDS: DOCUSATE SODIUM 100 MG/10 ML LIQUID UDC GT SCH ×2 (08:39→21:05)
[2017-10-19] MEDS: BACLOFEN 20 MG TABLET GT SCH ×4 (08:40→21:05)
[2017-10-19] MEDS: METOPROLOL TARTRATE 50 MG TABLET GT SCH ×2 (08:43→21:05)
[2017-10-19] MEDS: SIMETHICONE 40 MG/0.6 ML, 30ML BOTTLE GT SCH ×3 (08:46→16:22)
[2017-10-19] MEDS: HYDROGEN PEROXIDE 3% 118 ML BOTTLE TP SCH ×2 (08:48→21:07)
[2017-10-19] MEDS: CALMOSEPTINE 113 GM OINTMENT TP SCH ×2 (08:48→21:06)
[2017-10-19] MEDS: TRIAMCINOLONE ACET 0.1% CREAM 15 GM TUBE TP SCH ×2 (08:48→21:07)
[2017-10-19] MEDS: SERTRALINE HCL 50 MG TABLET GT SCH (08:48)
[2017-10-19] MEDS: NYSTATIN CREAM 30 GM TUBE TP SCH ×2 (08:48→21:07)
[2017-10-19] MEDS: NUTRISOURCE FIBER 4 GM PACKET GT SCH ×2 (08:48→21:06)
[2017-10-19 11:37] VITALS: BP 119/78
[2017-10-19 20:00] VITALS: BP 103/71
[2017-10-19] MEDS: ASCORBIC ACID 500 MG TABLET PO SCH (21:06)
[2017-10-20] MEDS: OMEPRAZOLE 20 MG CAPSULE.DR GT SCH (05:26)
[2017-10-20] MEDS: SERTRALINE HCL 50 MG TABLET GT SCH (09:39)
[2017-10-20] MEDS: DOCUSATE SODIUM 100 MG/10 ML LIQUID UDC GT SCH ×2 (09:39→21:18)
[2017-10-20] MEDS: BACLOFEN 20 MG TABLET GT SCH ×4 (09:39→21:18)
[2017-10-20] MEDS: SIMETHICONE 40 MG/0.6 ML, 30ML BOTTLE GT SCH ×3 (09:39→17:00)
[2017-10-20] MEDS: METOPROLOL TARTRATE 50 MG TABLET GT SCH ×2 (09:39→21:19)
[2017-10-20] MEDS: ACIDOPHILUS/BULGARICUS CHEW TAB GT SCH ×2 (09:39→21:18)
[2017-10-20] MEDS: NUTRISOURCE FIBER 4 GM PACKET GT SCH ×2 (09:39→21:19)
[2017-10-20] MEDS: NYSTATIN CREAM 30 GM TUBE TP SCH ×2 (09:40→21:19)
[2017-10-20] MEDS: CALMOSEPTINE 113 GM OINTMENT TP SCH ×2 (09:40→21:19)
[2017-10-20] MEDS: HYDROGEN PEROXIDE 3% 118 ML BOTTLE TP SCH ×2 (09:40→21:19)
[2017-10-20] MEDS: TRIAMCINOLONE ACET 0.1% CREAM 15 GM TUBE TP SCH ×2 (09:40→21:19)
[2017-10-20 12:04] VITALS: BP 134/83
--- NOTE | 2017-10-20 12:22 | NUR ---
SEEN BY DR. ALEXANDRIA MORGAN.
[2017-10-20 20:00] VITALS: BP 117/80
[2017-10-20] MEDS: ASCORBIC ACID 500 MG TABLET PO SCH (21:19)
[2017-10-20] MEDS: GLUCERNA 1.2 1000ML LIQUID GT PRN (21:20)
[2017-10-21] MEDS: OMEPRAZOLE 20 MG CAPSULE.DR GT SCH (05:29)
[2017-10-21] MEDS: MULTIVIT, IRON, MIN NO. 8, FA TABLET GT SCH (05:30)
[2017-10-21 08:00] VITALS: BP 123/87
[2017-10-21] MEDS: ACIDOPHILUS/BULGARICUS CHEW TAB GT SCH ×2 (08:22→21:24)
[2017-10-21] MEDS: BACLOFEN 20 MG TABLET GT SCH ×4 (08:22→21:24)
[2017-10-21] MEDS: DOCUSATE SODIUM 100 MG/10 ML LIQUID UDC GT SCH ×2 (08:22→21:24)
[2017-10-21] MEDS: SERTRALINE HCL 50 MG TABLET GT SCH (08:23)
[2017-10-21] MEDS: SIMETHICONE 40 MG/0.6 ML, 30ML BOTTLE GT SCH ×3 (08:23→17:47)
[2017-10-21] MEDS: NUTRISOURCE FIBER 4 GM PACKET GT SCH ×2 (08:23→21:24)
[2017-10-21] MEDS: CALMOSEPTINE 113 GM OINTMENT TP SCH ×2 (08:23→21:25)
[2017-10-21] MEDS: METOPROLOL TARTRATE 50 MG TABLET GT SCH ×2 (08:23→21:24)
[2017-10-21] MEDS: TRIAMCINOLONE ACET 0.1% CREAM 15 GM TUBE TP SCH ×2 (08:24→21:25)
[2017-10-21] MEDS: NYSTATIN CREAM 30 GM TUBE TP SCH ×2 (08:24→21:25)
[2017-10-21] MEDS: HYDROGEN PEROXIDE 3% 118 ML BOTTLE TP SCH ×2 (08:24→21:25)
[2017-10-21] MEDS: GLUCERNA 1.2 1000ML LIQUID GT PRN (18:00)
[2017-10-21 20:39] VITALS: BP 122/86
[2017-10-21] MEDS: ASCORBIC ACID 500 MG TABLET PO SCH (21:25)
[2017-10-22] MEDS: OMEPRAZOLE 20 MG CAPSULE.DR GT SCH (05:26)
[2017-10-22 08:00] VITALS: BP 116/72
[2017-10-22] MEDS: KETOCONAZOLE 2% SHAMPOO 120 ML BOTTLE TP SCH (08:00)
[2017-10-22] MEDS: HYDROGEN PEROXIDE 3% 118 ML BOTTLE TP SCH ×2 (09:16→21:14)
[2017-10-22] MEDS: CALMOSEPTINE 113 GM OINTMENT TP SCH ×2 (09:16→21:14)
[2017-10-22] MEDS: SIMETHICONE 40 MG/0.6 ML, 30ML BOTTLE GT SCH ×3 (09:16→17:06)
[2017-10-22] MEDS: NUTRISOURCE FIBER 4 GM PACKET GT SCH ×2 (09:16→21:14)
[2017-10-22] MEDS: DOCUSATE SODIUM 100 MG/10 ML LIQUID UDC GT SCH ×2 (09:16→21:13)
[2017-10-22] MEDS: NYSTATIN CREAM 30 GM TUBE TP SCH (09:16)
[2017-10-22] MEDS: TRIAMCINOLONE ACET 0.1% CREAM 15 GM TUBE TP SCH (09:16)
[2017-10-22] MEDS: BACLOFEN 20 MG TABLET GT SCH ×4 (09:16→21:13)
[2017-10-22] MEDS: SERTRALINE HCL 50 MG TABLET GT SCH (09:16)
[2017-10-22] MEDS: ACIDOPHILUS/BULGARICUS CHEW TAB GT SCH ×2 (09:16→21:13)
[2017-10-22] MEDS: METOPROLOL TARTRATE 50 MG TABLET GT SCH ×2 (09:16→21:14)
--- NOTE | 2017-10-22 16:03 | NUR ---
SEEN BY ABIEL MORGAN.
[2017-10-22] MEDS: ASCORBIC ACID 500 MG TABLET PO SCH (21:14)
[2017-10-22 21:17] VITALS: BP 123/80
[2017-10-22] MEDS: GLUCERNA 1.2 1000ML LIQUID GT PRN (23:04)
[2017-10-23] MEDS: OMEPRAZOLE 20 MG CAPSULE.DR GT SCH (05:13)
[2017-10-23] MEDS: MULTIVIT, IRON, MIN NO. 8, FA TABLET GT SCH (06:41)
[2017-10-23 08:00] VITALS: BP 130/79
[2017-10-23] MEDS: DOCUSATE SODIUM 100 MG/10 ML LIQUID UDC GT SCH ×2 (09:00→21:56)
[2017-10-23] MEDS: BACLOFEN 20 MG TABLET GT SCH ×4 (09:00→21:56)
[2017-10-23] MEDS: NUTRISOURCE FIBER 4 GM PACKET GT SCH ×2 (09:00→21:56)
[2017-10-23] MEDS: SERTRALINE HCL 50 MG TABLET GT SCH (09:00)
[2017-10-23] MEDS: SIMETHICONE 40 MG/0.6 ML, 30ML BOTTLE GT SCH ×3 (09:00→17:27)
[2017-10-23] MEDS: METOPROLOL TARTRATE 50 MG TABLET GT SCH ×2 (09:00→21:56)
[2017-10-23] MEDS: CALMOSEPTINE 113 GM OINTMENT TP SCH ×2 (09:00→21:56)
[2017-10-23] MEDS: ACIDOPHILUS/BULGARICUS CHEW TAB GT SCH ×2 (09:00→21:56)
[2017-10-23] MEDS: HYDROGEN PEROXIDE 3% 118 ML BOTTLE TP SCH ×2 (10:00→21:56)
--- NOTE | 2017-10-23 12:44 | NUR ---
Seen and examined by Dr Martinez ,no new orders noted.
[2017-10-23] MEDS: GLUCERNA 1.2 1000ML LIQUID GT PRN (17:27)
[2017-10-23 20:00] VITALS: BP 131/85
[2017-10-23] MEDS: ASCORBIC ACID 500 MG TABLET PO SCH (21:56)
[2017-10-24] MEDS: OMEPRAZOLE 20 MG CAPSULE.DR GT SCH (05:41)
[2017-10-24 08:08] VITALS: BP 115/76
[2017-10-24] MEDS: ACIDOPHILUS/BULGARICUS CHEW TAB GT SCH ×2 (08:48→21:44)
[2017-10-24] MEDS: BACLOFEN 20 MG TABLET GT SCH ×4 (08:48→21:44)
[2017-10-24] MEDS: DOCUSATE SODIUM 100 MG/10 ML LIQUID UDC GT SCH ×2 (08:48→21:44)
[2017-10-24] MEDS: SIMETHICONE 40 MG/0.6 ML, 30ML BOTTLE GT SCH ×3 (08:49→16:29)
[2017-10-24] MEDS: NUTRISOURCE FIBER 4 GM PACKET GT SCH ×2 (08:49→21:45)
[2017-10-24] MEDS: CALMOSEPTINE 113 GM OINTMENT TP SCH ×2 (08:49→21:45)
[2017-10-24] MEDS: HYDROGEN PEROXIDE 3% 118 ML BOTTLE TP SCH ×2 (08:49→21:45)
[2017-10-24] MEDS: SERTRALINE HCL 50 MG TABLET GT SCH (08:49)
[2017-10-24] MEDS: METOPROLOL TARTRATE 50 MG TABLET GT SCH ×2 (08:50→21:45)
[2017-10-24] MEDS: GLUCERNA 1.2 1000ML LIQUID GT PRN (08:50)
[2017-10-24 20:00] VITALS: BP 127/86
[2017-10-24] MEDS: ASCORBIC ACID 500 MG TABLET PO SCH (21:45)
[2017-10-25] MEDS: OMEPRAZOLE 20 MG CAPSULE.DR GT SCH (05:54)
[2017-10-25] MEDS: MULTIVIT, IRON, MIN NO. 8, FA TABLET GT SCH (05:54)
[2017-10-25 08:00] VITALS: BP 118/71
[2017-10-25] MEDS: DOCUSATE SODIUM 100 MG/10 ML LIQUID UDC GT SCH ×2 (08:38→21:47)
[2017-10-25] MEDS: KETOCONAZOLE 2% SHAMPOO 120 ML BOTTLE TP SCH (08:38)
[2017-10-25] MEDS: METOPROLOL TARTRATE 50 MG TABLET GT SCH ×2 (08:38→21:50)
[2017-10-25] MEDS: BACLOFEN 20 MG TABLET GT SCH ×4 (08:38→21:48)
[2017-10-25] MEDS: ACIDOPHILUS/BULGARICUS CHEW TAB GT SCH ×2 (08:38→21:48)
[2017-10-25] MEDS: SIMETHICONE 40 MG/0.6 ML, 30ML BOTTLE GT SCH ×3 (08:39→16:13)
[2017-10-25] MEDS: SERTRALINE HCL 50 MG TABLET GT SCH (08:39)
[2017-10-25] MEDS: NUTRISOURCE FIBER 4 GM PACKET GT SCH ×2 (08:39→21:57)
[2017-10-25] MEDS: CALMOSEPTINE 113 GM OINTMENT TP SCH ×2 (08:39→21:58)
[2017-10-25] MEDS: HYDROGEN PEROXIDE 3% 118 ML BOTTLE TP SCH ×2 (08:39→21:58)
[2017-10-25] MEDS: GLUCERNA 1.2 1000ML LIQUID GT PRN (16:13)
[2017-10-25 19:15] VITALS: BP 118/71
[2017-10-25 20:00] VITALS: BP 136/85
[2017-10-25] MEDS: ASCORBIC ACID 500 MG TABLET PO SCH (21:58)
[2017-10-26] MEDS: OMEPRAZOLE 20 MG CAPSULE.DR GT SCH (05:54)
[2017-10-26 08:09] VITALS: BP 108/74
[2017-10-26] MEDS: DOCUSATE SODIUM 100 MG/10 ML LIQUID UDC GT SCH ×2 (08:42→21:58)
[2017-10-26] MEDS: ACIDOPHILUS/BULGARICUS CHEW TAB GT SCH ×2 (08:42→21:58)
[2017-10-26] MEDS: BACLOFEN 20 MG TABLET GT SCH ×4 (08:43→21:58)
[2017-10-26] MEDS: METOPROLOL TARTRATE 50 MG TABLET GT SCH ×2 (08:43→21:59)
[2017-10-26] MEDS: SERTRALINE HCL 50 MG TABLET GT SCH (08:43)
[2017-10-26] MEDS: NUTRISOURCE FIBER 4 GM PACKET GT SCH ×2 (08:43→21:59)
[2017-10-26] MEDS: SIMETHICONE 40 MG/0.6 ML, 30ML BOTTLE GT SCH ×3 (08:43→16:14)
[2017-10-26] MEDS: CALMOSEPTINE 113 GM OINTMENT TP SCH ×2 (08:44→21:55)
[2017-10-26] MEDS: HYDROGEN PEROXIDE 3% 118 ML BOTTLE TP SCH ×2 (08:44→21:55)
--- NOTE | 2017-10-26 09:29 | NUR ---
Seen by Dalia CARMICHAEL, with no new order.
[2017-10-26] MEDS: GLUCERNA 1.2 1000ML LIQUID GT PRN (16:14)
[2017-10-26 20:40] VITALS: BP 118/80
[2017-10-26] MEDS: ASCORBIC ACID 500 MG TABLET PO SCH (21:59)
[2017-10-27] MEDS: OMEPRAZOLE 20 MG CAPSULE.DR GT SCH (06:53)
[2017-10-27] MEDS: MULTIVIT, IRON, MIN NO. 8, FA TABLET GT SCH (06:53)
[2017-10-27 08:00] VITALS: BP 122/86
[2017-10-27] MEDS: METOPROLOL TARTRATE 50 MG TABLET GT SCH ×2 (08:51→21:31)
[2017-10-27] MEDS: DOCUSATE SODIUM 100 MG/10 ML LIQUID UDC GT SCH ×2 (08:51→21:31)
[2017-10-27] MEDS: NUTRISOURCE FIBER 4 GM PACKET GT SCH ×2 (08:51→21:31)
[2017-10-27] MEDS: CALMOSEPTINE 113 GM OINTMENT TP SCH ×2 (08:51→21:31)
[2017-10-27] MEDS: BACLOFEN 20 MG TABLET GT SCH ×4 (08:51→21:31)
[2017-10-27] MEDS: SERTRALINE HCL 50 MG TABLET GT SCH (08:51)
[2017-10-27] MEDS: ACIDOPHILUS/BULGARICUS CHEW TAB GT SCH ×2 (08:51→21:31)
[2017-10-27] MEDS: SIMETHICONE 40 MG/0.6 ML, 30ML BOTTLE GT SCH ×3 (08:51→16:04)
[2017-10-27] MEDS: HYDROGEN PEROXIDE 3% 118 ML BOTTLE TP SCH ×2 (08:52→21:31)
[2017-10-27] MEDS: GLUCERNA 1.2 1000ML LIQUID GT PRN (16:10)
[2017-10-27 20:38] VITALS: BP 112/71
[2017-10-27] MEDS: ASCORBIC ACID 500 MG TABLET PO SCH (21:31)
[2017-10-28] MEDS: OMEPRAZOLE 20 MG CAPSULE.DR GT SCH (06:59)
[2017-10-28 08:00] VITALS: BP 116/83
[2017-10-28] MEDS: BACLOFEN 20 MG TABLET GT SCH ×4 (08:32→21:00)
[2017-10-28] MEDS: DOCUSATE SODIUM 100 MG/10 ML LIQUID UDC GT SCH ×2 (08:32→21:00)
[2017-10-28] MEDS: ACIDOPHILUS/BULGARICUS CHEW TAB GT SCH ×2 (08:32→21:00)
[2017-10-28] MEDS: CALMOSEPTINE 113 GM OINTMENT TP SCH ×2 (08:33→21:00)
[2017-10-28] MEDS: METOPROLOL TARTRATE 50 MG TABLET GT SCH ×2 (08:33→21:00)
[2017-10-28] MEDS: SERTRALINE HCL 50 MG TABLET GT SCH (08:33)
[2017-10-28] MEDS: HYDROGEN PEROXIDE 3% 118 ML BOTTLE TP SCH ×2 (08:33→21:00)
[2017-10-28] MEDS: SIMETHICONE 40 MG/0.6 ML, 30ML BOTTLE GT SCH ×3 (08:33→17:05)
[2017-10-28] MEDS: NUTRISOURCE FIBER 4 GM PACKET GT SCH ×2 (08:33→21:00)
[2017-10-28] MEDS: GLUCERNA 1.2 1000ML LIQUID GT PRN (17:06)
[2017-10-28 20:27] VITALS: BP 115/81
[2017-10-28] MEDS: ASCORBIC ACID 500 MG TABLET PO SCH (21:00)
[2017-10-29] MEDS: MULTIVIT, IRON, MIN NO. 8, FA TABLET GT SCH (06:45)
[2017-10-29] MEDS: OMEPRAZOLE 20 MG CAPSULE.DR GT SCH (06:45)
[2017-10-29] MEDS: DOCUSATE SODIUM 100 MG/10 ML LIQUID UDC GT SCH ×2 (08:14→21:46)
[2017-10-29] MEDS: KETOCONAZOLE 2% SHAMPOO 120 ML BOTTLE TP SCH (08:14)
[2017-10-29] MEDS: ACIDOPHILUS/BULGARICUS CHEW TAB GT SCH ×2 (08:14→21:46)
[2017-10-29] MEDS: BACLOFEN 20 MG TABLET GT SCH ×4 (08:14→21:46)
[2017-10-29] MEDS: SERTRALINE HCL 50 MG TABLET GT SCH (08:15)
[2017-10-29] MEDS: CALMOSEPTINE 113 GM OINTMENT TP SCH ×2 (08:15→21:47)
[2017-10-29] MEDS: SIMETHICONE 40 MG/0.6 ML, 30ML BOTTLE GT SCH ×3 (08:15→17:03)
[2017-10-29] MEDS: HYDROGEN PEROXIDE 3% 118 ML BOTTLE TP SCH ×2 (08:15→21:47)
[2017-10-29] MEDS: METOPROLOL TARTRATE 50 MG TABLET GT SCH ×2 (08:15→21:47)
[2017-10-29] MEDS: NUTRISOURCE FIBER 4 GM PACKET GT SCH ×2 (08:15→21:47)
[2017-10-29 11:20] VITALS: BP 104/74
[2017-10-29] MEDS: ASCORBIC ACID 500 MG TABLET PO SCH (21:47)
[2017-10-29 21:48] VITALS: BP 114/73
[2017-10-30] MEDS: OMEPRAZOLE 20 MG CAPSULE.DR GT SCH (05:59)
[2017-10-30 08:09] VITALS: BP 116/80
[2017-10-30] MEDS: ACIDOPHILUS/BULGARICUS CHEW TAB GT SCH ×2 (09:07→20:35)
[2017-10-30] MEDS: DOCUSATE SODIUM 100 MG/10 ML LIQUID UDC GT SCH ×2 (09:07→20:35)
[2017-10-30] MEDS: METOPROLOL TARTRATE 50 MG TABLET GT SCH ×2 (09:08→21:52)
[2017-10-30] MEDS: SIMETHICONE 40 MG/0.6 ML, 30ML BOTTLE GT SCH ×3 (09:08→17:28)
[2017-10-30] MEDS: BACLOFEN 20 MG TABLET GT SCH ×4 (09:08→20:35)
[2017-10-30] MEDS: NUTRISOURCE FIBER 4 GM PACKET GT SCH ×2 (09:08→21:52)
[2017-10-30] MEDS: SERTRALINE HCL 50 MG TABLET GT SCH (09:09)
[2017-10-30] MEDS: HYDROGEN PEROXIDE 3% 118 ML BOTTLE TP SCH ×2 (09:09→21:52)
[2017-10-30] MEDS: CALMOSEPTINE 113 GM OINTMENT TP SCH ×2 (09:09→21:52)
[2017-10-30] MEDS: GLUCERNA 1.2 1000ML LIQUID GT PRN (17:37)
[2017-10-30 20:34] VITALS: BP 117/80
[2017-10-30] MEDS: ASCORBIC ACID 500 MG TABLET PO SCH (21:52)
[2017-10-31] MEDS: OMEPRAZOLE 20 MG CAPSULE.DR GT SCH (06:03)
[2017-10-31] MEDS: MULTIVIT, IRON, MIN NO. 8, FA TABLET GT SCH (06:03)
[2017-10-31 08:00] VITALS: BP 110/63
[2017-10-31] MEDS: HYDROGEN PEROXIDE 3% 118 ML BOTTLE TP SCH ×2 (08:29→20:38)
[2017-10-31] MEDS: METOPROLOL TARTRATE 50 MG TABLET GT SCH ×2 (08:29→21:00)
[2017-10-31] MEDS: NUTRISOURCE FIBER 4 GM PACKET GT SCH ×2 (08:29→20:37)
[2017-10-31] MEDS: ACIDOPHILUS/BULGARICUS CHEW TAB GT SCH ×2 (08:29→20:37)
[2017-10-31] MEDS: SERTRALINE HCL 50 MG TABLET GT SCH (08:29)
[2017-10-31] MEDS: BACLOFEN 20 MG TABLET GT SCH ×4 (08:29→20:37)
[2017-10-31] MEDS: CALMOSEPTINE 113 GM OINTMENT TP SCH ×2 (08:29→20:37)
[2017-10-31] MEDS: SIMETHICONE 40 MG/0.6 ML, 30ML BOTTLE GT SCH ×3 (08:29→16:45)
[2017-10-31] MEDS: DOCUSATE SODIUM 100 MG/10 ML LIQUID UDC GT SCH ×2 (08:29→20:37)
--- NOTE | 2017-10-31 09:00 | NUR ---
seen and examined by dr Heaton,no new orders noted.
[2017-10-31] MEDS: ASCORBIC ACID 500 MG TABLET PO SCH (20:37)
[2017-10-31 22:00] VITALS: BP 122/70
[2017-11-01] MEDS: OMEPRAZOLE 20 MG CAPSULE.DR GT SCH (06:01)
[2017-11-01] MEDS: KETOCONAZOLE 2% SHAMPOO 120 ML BOTTLE TP SCH (08:00)
[2017-11-01 08:08] VITALS: BP 128/80
[2017-11-01] MEDS: METOPROLOL TARTRATE 50 MG TABLET GT SCH ×2 (09:16→20:31)
[2017-11-01] MEDS: ACIDOPHILUS/BULGARICUS CHEW TAB GT SCH ×2 (09:16→20:31)
[2017-11-01] MEDS: BACLOFEN 20 MG TABLET GT SCH ×4 (09:16→20:31)
[2017-11-01] MEDS: DOCUSATE SODIUM 100 MG/10 ML LIQUID UDC GT SCH ×2 (09:16→20:31)
[2017-11-01] MEDS: SERTRALINE HCL 50 MG TABLET GT SCH (09:17)
[2017-11-01] MEDS: SIMETHICONE 40 MG/0.6 ML, 30ML BOTTLE GT SCH ×3 (09:17→17:00)
[2017-11-01] MEDS: NUTRISOURCE FIBER 4 GM PACKET GT SCH ×2 (09:17→20:31)
[2017-11-01] MEDS: CALMOSEPTINE 113 GM OINTMENT TP SCH ×2 (09:17→20:31)
[2017-11-01] MEDS: HYDROGEN PEROXIDE 3% 118 ML BOTTLE TP SCH ×2 (09:17→20:31)
[2017-11-01] MEDS: GLUCERNA 1.2 1000ML LIQUID GT PRN (14:00)
--- NOTE | 2017-11-01 17:17 | NUR ---
SEEN BY GLENN MORGAN.
[2017-11-01 20:00] VITALS: BP 131/86
[2017-11-01] MEDS: ASCORBIC ACID 500 MG TABLET PO SCH (20:31)
[2017-11-02] MEDS: OMEPRAZOLE 20 MG CAPSULE.DR GT SCH (05:39)
[2017-11-02] MEDS: MULTIVIT, IRON, MIN NO. 8, FA TABLET GT SCH (05:39)
[2017-11-02 08:06] VITALS: BP 140/86
[2017-11-02] MEDS: BACLOFEN 20 MG TABLET GT SCH ×4 (08:48→20:50)
[2017-11-02] MEDS: DOCUSATE SODIUM 100 MG/10 ML LIQUID UDC GT SCH ×2 (08:48→20:50)
[2017-11-02] MEDS: ACIDOPHILUS/BULGARICUS CHEW TAB GT SCH ×2 (08:48→20:50)
[2017-11-02] MEDS: HYDROGEN PEROXIDE 3% 118 ML BOTTLE TP SCH ×2 (08:49→20:50)
[2017-11-02] MEDS: METOPROLOL TARTRATE 50 MG TABLET GT SCH ×2 (08:49→20:50)
[2017-11-02] MEDS: SIMETHICONE 40 MG/0.6 ML, 30ML BOTTLE GT SCH ×3 (08:49→17:00)
[2017-11-02] MEDS: SERTRALINE HCL 50 MG TABLET GT SCH (08:49)
[2017-11-02] MEDS: NUTRISOURCE FIBER 4 GM PACKET GT SCH ×2 (08:49→20:50)
[2017-11-02] MEDS: CALMOSEPTINE 113 GM OINTMENT TP SCH ×2 (08:49→20:50)
--- NOTE | 2017-11-02 10:36 | NUR ---
SEEN BY NELI MORGAN.
[2017-11-02] MEDS: GLUCERNA 1.2 1000ML LIQUID GT PRN (12:45)
[2017-11-02 20:26] VITALS: BP 136/84
[2017-11-02] MEDS: ASCORBIC ACID 500 MG TABLET PO SCH (20:50)
[2017-11-03] MEDS: OMEPRAZOLE 20 MG CAPSULE.DR GT SCH (05:35)
[2017-11-03 08:05] VITALS: BP 124/74
[2017-11-03] MEDS: ACIDOPHILUS/BULGARICUS CHEW TAB GT SCH ×2 (09:28→20:55)
[2017-11-03] MEDS: DOCUSATE SODIUM 100 MG/10 ML LIQUID UDC GT SCH ×2 (09:28→20:55)
[2017-11-03] MEDS: BACLOFEN 20 MG TABLET GT SCH ×4 (09:46→20:55)
[2017-11-03] MEDS: SERTRALINE HCL 50 MG TABLET GT SCH (09:48)
[2017-11-03] MEDS: CALMOSEPTINE 113 GM OINTMENT TP SCH ×2 (09:48→20:56)
[2017-11-03] MEDS: HYDROGEN PEROXIDE 3% 118 ML BOTTLE TP SCH ×2 (09:48→20:56)
[2017-11-03] MEDS: SIMETHICONE 40 MG/0.6 ML, 30ML BOTTLE GT SCH ×3 (09:48→17:00)
[2017-11-03] MEDS: NUTRISOURCE FIBER 4 GM PACKET GT SCH ×2 (09:48→20:56)
[2017-11-03] MEDS: METOPROLOL TARTRATE 50 MG TABLET GT SCH ×2 (09:48→20:55)
[2017-11-03] MEDS: GLUCERNA 1.2 1000ML LIQUID GT PRN (11:00)
[2017-11-03 20:15] VITALS: BP 128/85
[2017-11-03] MEDS: ASCORBIC ACID 500 MG TABLET PO SCH (20:56)
[2017-11-04] MEDS: OMEPRAZOLE 20 MG CAPSULE.DR GT SCH (05:45)
[2017-11-04] MEDS: MULTIVIT, IRON, MIN NO. 8, FA TABLET GT SCH (05:45)
[2017-11-04 08:05] VITALS: BP_SYST 120
[2017-11-04] MEDS: ACIDOPHILUS/BULGARICUS CHEW TAB GT SCH ×2 (08:21→21:56)
[2017-11-04] MEDS: BACLOFEN 20 MG TABLET GT SCH ×4 (08:21→21:56)
[2017-11-04] MEDS: DOCUSATE SODIUM 100 MG/10 ML LIQUID UDC GT SCH ×2 (08:21→21:56)
[2017-11-04] MEDS: METOPROLOL TARTRATE 50 MG TABLET GT SCH ×2 (08:22→21:56)
[2017-11-04] MEDS: SERTRALINE HCL 50 MG TABLET GT SCH (08:22)
[2017-11-04] MEDS: SIMETHICONE 40 MG/0.6 ML, 30ML BOTTLE GT SCH ×3 (08:22→17:26)
[2017-11-04] MEDS: CALMOSEPTINE 113 GM OINTMENT TP SCH ×2 (08:22→21:56)
[2017-11-04] MEDS: NUTRISOURCE FIBER 4 GM PACKET GT SCH ×2 (08:22→21:56)
[2017-11-04] MEDS: HYDROGEN PEROXIDE 3% 118 ML BOTTLE TP SCH ×2 (08:22→21:57)
--- NOTE | 2017-11-04 09:25 | NUR ---
SEEN BY GLENN MORGAN.
[2017-11-04 21:06] VITALS: BP 105/69
[2017-11-04] MEDS: ASCORBIC ACID 500 MG TABLET PO SCH (21:56)
[2017-11-05] MEDS: OMEPRAZOLE 20 MG CAPSULE.DR GT SCH (05:52)
[2017-11-05 08:00] VITALS: BP 117/76
[2017-11-05] MEDS: DOCUSATE SODIUM 100 MG/10 ML LIQUID UDC GT SCH ×2 (08:24→21:52)
[2017-11-05] MEDS: KETOCONAZOLE 2% SHAMPOO 120 ML BOTTLE TP SCH (08:24)
[2017-11-05] MEDS: ACIDOPHILUS/BULGARICUS CHEW TAB GT SCH ×2 (08:25→21:52)
[2017-11-05] MEDS: BACLOFEN 20 MG TABLET GT SCH ×4 (08:25→21:52)
[2017-11-05] MEDS: HYDROGEN PEROXIDE 3% 118 ML BOTTLE TP SCH ×2 (08:26→21:53)
[2017-11-05] MEDS: NUTRISOURCE FIBER 4 GM PACKET GT SCH ×2 (08:26→21:53)
[2017-11-05] MEDS: METOPROLOL TARTRATE 50 MG TABLET GT SCH ×2 (08:26→21:53)
[2017-11-05] MEDS: CALMOSEPTINE 113 GM OINTMENT TP SCH ×2 (08:26→21:53)
[2017-11-05] MEDS: SIMETHICONE 40 MG/0.6 ML, 30ML BOTTLE GT SCH ×3 (08:26→17:44)
[2017-11-05] MEDS: SERTRALINE HCL 50 MG TABLET GT SCH (08:26)
[2017-11-05 20:30] VITALS: BP 115/77
[2017-11-05] MEDS: ASCORBIC ACID 500 MG TABLET PO SCH (21:53)
[2017-11-06] MEDS: MULTIVIT, IRON, MIN NO. 8, FA TABLET GT SCH (05:45)
[2017-11-06] MEDS: OMEPRAZOLE 20 MG CAPSULE.DR GT SCH (05:45)
[2017-11-06 08:00] VITALS: BP 108/70
[2017-11-06] MEDS: METOPROLOL TARTRATE 50 MG TABLET GT SCH ×2 (09:35→20:46)
[2017-11-06] MEDS: SERTRALINE HCL 50 MG TABLET GT SCH (09:43)
[2017-11-06] MEDS: SIMETHICONE 40 MG/0.6 ML, 30ML BOTTLE GT SCH ×3 (09:43→16:17)
[2017-11-06] MEDS: BACLOFEN 20 MG TABLET GT SCH ×4 (09:43→20:45)
[2017-11-06] MEDS: CALMOSEPTINE 113 GM OINTMENT TP SCH ×2 (09:43→20:46)
[2017-11-06] MEDS: NUTRISOURCE FIBER 4 GM PACKET GT SCH ×2 (09:43→20:46)
[2017-11-06] MEDS: ACIDOPHILUS/BULGARICUS CHEW TAB GT SCH ×2 (09:43→20:45)
[2017-11-06] MEDS: HYDROGEN PEROXIDE 3% 118 ML BOTTLE TP SCH ×2 (09:43→20:46)
[2017-11-06] MEDS: DOCUSATE SODIUM 100 MG/10 ML LIQUID UDC GT SCH ×2 (09:43→20:45)
[2017-11-06] MEDS: GLUCERNA 1.2 1000ML LIQUID GT PRN (16:17)
--- NOTE | 2017-11-06 16:52 | NUR ---
Pharmacy review for upcoming 11/13/17 IDT meeting VS: Temp 98.2 BP 108/70 HR 77 LABS: (from 10/08/17-no new labs) Wbc 5.9H/H 11.8/36.1Plt 278 Na 139K 3.8Cl 105CO2 25BUN/SCr 15/0.8 BS 117 Ca 8.8A1c 5.7TSH 1.375 MEDICATION USE REVIEWED: > Pt is not on any anti-epileptic medications > Pt is on Zoloft 50mg daily for depression m/b episodes of crying; No GDR planned for pt d/t contraindication of persisten cry episodes and repeated failed GDRs in the past (see MD note). Patient had x0 in September (previously x0 September, x0 October, x1 November, x1 Dec, x0 Jan, x2 Feb, x4 Mar, x0 Apr, x7 May, x0 Jun, x4 July) > Pt is on depo-provera [id number] for heavy menstruation, last given 10/03/17 > PRN MED USAGE: (August) Tylenol 650mg for mild pain used x4 Tylenol for temp x0 Tylenol 1000mg mod pain x1 [place] severe pain x1 Bisacodyl x1 Immodium x0 Rodriguez flush enema x1 NEW ORDERS NOTED: > Triamcinolone+Nystatin 10/15 x 7 days for back rash completed on 10/22/17 Patient's medications were reviewed and there is no new recommendation for now. Addendum: 11/06/17 at 1657 by ELIN METCALF PRN medications usage review is for May. Addendum: 11/13/17 at 1207 by CHANCE PARKER ADM Update from today's 11/13/17 IDT Meeting Patient reviewed and discussed with no medication issues or concerns at this time. Will follow
[2017-11-06 20:00] VITALS: BP 128/82
[2017-11-06] MEDS: ASCORBIC ACID 500 MG TABLET PO SCH (20:46)
[2017-11-07] MEDS: OMEPRAZOLE 20 MG CAPSULE.DR GT SCH (05:41)
[2017-11-07 08:00] VITALS: BP 117/60
[2017-11-07] MEDS: BACLOFEN 20 MG TABLET GT SCH ×4 (08:59→20:57)
[2017-11-07] MEDS: DOCUSATE SODIUM 100 MG/10 ML LIQUID UDC GT SCH ×2 (08:59→20:57)
[2017-11-07] MEDS: ACIDOPHILUS/BULGARICUS CHEW TAB GT SCH ×2 (08:59→20:57)
[2017-11-07] MEDS: SIMETHICONE 40 MG/0.6 ML, 30ML BOTTLE GT SCH ×3 (09:00→17:00)
[2017-11-07] MEDS: SERTRALINE HCL 50 MG TABLET GT SCH (09:00)
[2017-11-07] MEDS: HYDROGEN PEROXIDE 3% 118 ML BOTTLE TP SCH ×2 (09:00→20:58)
[2017-11-07] MEDS: CALMOSEPTINE 113 GM OINTMENT TP SCH ×2 (09:00→20:58)
[2017-11-07] MEDS: NUTRISOURCE FIBER 4 GM PACKET GT SCH ×2 (09:00→20:58)
[2017-11-07] MEDS: METOPROLOL TARTRATE 50 MG TABLET GT SCH ×2 (09:00→20:58)
--- NOTE | 2017-11-07 13:30 | NUR ---
SEEN BY ABIEL MORGAN.
[2017-11-07 20:00] VITALS: BP 124/64
[2017-11-07] MEDS: ASCORBIC ACID 500 MG TABLET PO SCH (20:58)
[2017-11-08] MEDS: OMEPRAZOLE 20 MG CAPSULE.DR GT SCH (05:24)
[2017-11-08] MEDS: MULTIVIT, IRON, MIN NO. 8, FA TABLET GT SCH (05:34)
[2017-11-08 08:00] VITALS: BP 125/78
[2017-11-08] MEDS: DOCUSATE SODIUM 100 MG/10 ML LIQUID UDC GT SCH ×2 (08:26→21:39)
[2017-11-08] MEDS: KETOCONAZOLE 2% SHAMPOO 120 ML BOTTLE TP SCH (08:26)
[2017-11-08] MEDS: NUTRISOURCE FIBER 4 GM PACKET GT SCH ×2 (08:27→21:40)
[2017-11-08] MEDS: ACIDOPHILUS/BULGARICUS CHEW TAB GT SCH ×2 (08:27→21:39)
[2017-11-08] MEDS: CALMOSEPTINE 113 GM OINTMENT TP SCH ×2 (08:27→21:40)
[2017-11-08] MEDS: SERTRALINE HCL 50 MG TABLET GT SCH (08:27)
[2017-11-08] MEDS: METOPROLOL TARTRATE 50 MG TABLET GT SCH ×2 (08:27→21:40)
[2017-11-08] MEDS: BACLOFEN 20 MG TABLET GT SCH ×4 (08:27→21:39)
[2017-11-08] MEDS: HYDROGEN PEROXIDE 3% 118 ML BOTTLE TP SCH ×2 (08:27→21:40)
[2017-11-08] MEDS: SIMETHICONE 40 MG/0.6 ML, 30ML BOTTLE GT SCH ×3 (08:27→17:33)
[2017-11-08] MEDS: GLUCERNA 1.2 1000ML LIQUID GT PRN (18:45)
[2017-11-08 20:00] VITALS: BP 121/69
[2017-11-08] MEDS: ASCORBIC ACID 500 MG TABLET PO SCH (21:40)
[2017-11-09] MEDS: OMEPRAZOLE 20 MG CAPSULE.DR GT SCH (05:54)
[2017-11-09 08:06] VITALS: BP 102/68
[2017-11-09] MEDS: METOPROLOL TARTRATE 50 MG TABLET GT SCH ×2 (08:17→20:19)
[2017-11-09] MEDS: ACIDOPHILUS/BULGARICUS CHEW TAB GT SCH ×2 (08:17→20:19)
[2017-11-09] MEDS: DOCUSATE SODIUM 100 MG/10 ML LIQUID UDC GT SCH ×2 (08:17→20:19)
[2017-11-09] MEDS: HYDROGEN PEROXIDE 3% 118 ML BOTTLE TP SCH ×2 (08:17→20:20)
[2017-11-09] MEDS: NUTRISOURCE FIBER 4 GM PACKET GT SCH ×2 (08:17→20:19)
[2017-11-09] MEDS: CALMOSEPTINE 113 GM OINTMENT TP SCH ×2 (08:17→20:20)
[2017-11-09] MEDS: SIMETHICONE 40 MG/0.6 ML, 30ML BOTTLE GT SCH ×3 (08:17→17:41)
[2017-11-09] MEDS: BACLOFEN 20 MG TABLET GT SCH ×4 (08:17→20:19)
[2017-11-09] MEDS: SERTRALINE HCL 50 MG TABLET GT SCH (08:17)
[2017-11-09] MEDS: GLUCERNA 1.2 1000ML LIQUID GT PRN (17:41)
[2017-11-09] MEDS: ASCORBIC ACID 500 MG TABLET PO SCH (20:19)
[2017-11-09 20:32] VITALS: BP 135/88
[2017-11-10] MEDS: MULTIVIT, IRON, MIN NO. 8, FA TABLET GT SCH (05:37)
[2017-11-10] MEDS: OMEPRAZOLE 20 MG CAPSULE.DR GT SCH (05:37)
[2017-11-10 08:05] VITALS: BP 114/75
[2017-11-10] MEDS: NUTRISOURCE FIBER 4 GM PACKET GT SCH ×2 (09:00→20:38)
[2017-11-10] MEDS: CALMOSEPTINE 113 GM OINTMENT TP SCH ×2 (09:00→20:38)
[2017-11-10] MEDS: SIMETHICONE 40 MG/0.6 ML, 30ML BOTTLE GT SCH ×3 (09:00→17:00)
[2017-11-10] MEDS: BACLOFEN 20 MG TABLET GT SCH ×4 (09:00→20:38)
[2017-11-10] MEDS: SERTRALINE HCL 50 MG TABLET GT SCH (09:00)
[2017-11-10] MEDS: METOPROLOL TARTRATE 50 MG TABLET GT SCH ×2 (09:00→20:38)
[2017-11-10] MEDS: DOCUSATE SODIUM 100 MG/10 ML LIQUID UDC GT SCH ×2 (09:00→20:38)
[2017-11-10] MEDS: ACIDOPHILUS/BULGARICUS CHEW TAB GT SCH ×2 (09:00→20:38)
[2017-11-10] MEDS: HYDROGEN PEROXIDE 3% 118 ML BOTTLE TP SCH ×2 (09:00→20:38)
[2017-11-10] MEDS: GLUCERNA 1.2 1000ML LIQUID GT PRN (18:09)
[2017-11-10 20:15] VITALS: BP 124/77
[2017-11-10] MEDS: ASCORBIC ACID 500 MG TABLET PO SCH (20:38)
[2017-11-11] MEDS: OMEPRAZOLE 20 MG CAPSULE.DR GT SCH (05:18)
[2017-11-11 08:05] VITALS: BP 111/68
[2017-11-11] MEDS: ACIDOPHILUS/BULGARICUS CHEW TAB GT SCH ×2 (09:26→20:40)
[2017-11-11] MEDS: BACLOFEN 20 MG TABLET GT SCH ×4 (09:26→20:40)
[2017-11-11] MEDS: DOCUSATE SODIUM 100 MG/10 ML LIQUID UDC GT SCH ×2 (09:26→20:40)
[2017-11-11] MEDS: HYDROGEN PEROXIDE 3% 118 ML BOTTLE TP SCH ×2 (09:27→20:41)
[2017-11-11] MEDS: NUTRISOURCE FIBER 4 GM PACKET GT SCH ×2 (09:27→20:41)
[2017-11-11] MEDS: SIMETHICONE 40 MG/0.6 ML, 30ML BOTTLE GT SCH ×3 (09:27→17:00)
[2017-11-11] MEDS: SERTRALINE HCL 50 MG TABLET GT SCH (09:27)
[2017-11-11] MEDS: CALMOSEPTINE 113 GM OINTMENT TP SCH ×2 (09:27→20:41)
[2017-11-11] MEDS: METOPROLOL TARTRATE 50 MG TABLET GT SCH ×2 (09:27→20:41)
[2017-11-11] MEDS: ASCORBIC ACID 500 MG TABLET PO SCH (20:41)
[2017-11-11 22:00] VITALS: BP 106/72
[2017-11-12] MEDS: OMEPRAZOLE 20 MG CAPSULE.DR GT SCH (06:52)
[2017-11-12] MEDS: MULTIVIT, IRON, MIN NO. 8, FA TABLET GT SCH (06:52)
[2017-11-12 08:00] VITALS: BP 139/85
[2017-11-12] MEDS: KETOCONAZOLE 2% SHAMPOO 120 ML BOTTLE TP SCH (08:00)
[2017-11-12] MEDS: METOPROLOL TARTRATE 50 MG TABLET GT SCH ×2 (09:00→21:37)
[2017-11-12] MEDS: HYDROGEN PEROXIDE 3% 118 ML BOTTLE TP SCH ×2 (09:00→21:36)
[2017-11-12] MEDS: CALMOSEPTINE 113 GM OINTMENT TP SCH ×2 (09:00→21:36)
[2017-11-12] MEDS: NUTRISOURCE FIBER 4 GM PACKET GT SCH ×2 (09:00→21:36)
[2017-11-12] MEDS: SERTRALINE HCL 50 MG TABLET GT SCH (09:00)
[2017-11-12] MEDS: BACLOFEN 20 MG TABLET GT SCH ×4 (09:00→21:36)
[2017-11-12] MEDS: DOCUSATE SODIUM 100 MG/10 ML LIQUID UDC GT SCH ×2 (09:00→21:36)
[2017-11-12] MEDS: ACIDOPHILUS/BULGARICUS CHEW TAB GT SCH ×2 (09:00→21:36)
[2017-11-12] MEDS: SIMETHICONE 40 MG/0.6 ML, 30ML BOTTLE GT SCH ×3 (09:00→16:13)
[2017-11-12] MEDS: HYDROCODONE/APAP 5-325MG TABLET GT PRN (16:21)
[2017-11-12] MEDS: GLUCERNA 1.2 1000ML LIQUID GT PRN (17:35)
[2017-11-12] MEDS: ASCORBIC ACID 500 MG TABLET PO SCH (21:36)
[2017-11-12 22:00] VITALS: BP 136/80
[2017-11-13] MEDS: OMEPRAZOLE 20 MG CAPSULE.DR GT SCH (06:19)
[2017-11-13] MEDS: HYDROCODONE/APAP 5-325MG TABLET GT PRN (06:33)
[2017-11-13 08:00] VITALS: BP 122/75
[2017-11-13] MEDS: ACIDOPHILUS/BULGARICUS CHEW TAB GT SCH ×2 (09:01→21:06)
[2017-11-13] MEDS: METOPROLOL TARTRATE 50 MG TABLET GT SCH ×2 (09:01→21:08)
[2017-11-13] MEDS: SIMETHICONE 40 MG/0.6 ML, 30ML BOTTLE GT SCH ×3 (09:01→17:25)
[2017-11-13] MEDS: DOCUSATE SODIUM 100 MG/10 ML LIQUID UDC GT SCH ×2 (09:01→21:06)
[2017-11-13] MEDS: BACLOFEN 20 MG TABLET GT SCH ×4 (09:01→21:07)
[2017-11-13] MEDS: SERTRALINE HCL 50 MG TABLET GT SCH (09:01)
[2017-11-13] MEDS: NUTRISOURCE FIBER 4 GM PACKET GT SCH ×2 (09:01→21:08)
[2017-11-13] MEDS: HYDROGEN PEROXIDE 3% 118 ML BOTTLE TP SCH ×2 (09:02→21:08)
[2017-11-13] MEDS: CALMOSEPTINE 113 GM OINTMENT TP SCH ×2 (09:02→21:08)
[2017-11-13] MEDS: GLUCERNA 1.2 1000ML LIQUID GT PRN (18:00)
[2017-11-13 20:00] VITALS: BP 114/73
[2017-11-13] MEDS: ASCORBIC ACID 500 MG TABLET PO SCH (21:08)
[2017-11-14] MEDS: OMEPRAZOLE 20 MG CAPSULE.DR GT SCH (05:23)
[2017-11-14] MEDS: MULTIVIT, IRON, MIN NO. 8, FA TABLET GT SCH (05:40)
[2017-11-14 08:00] VITALS: BP 116/71
--- NOTE | 2017-11-14 08:00 | NUR ---
Seen and examined by Dr Heaton,no new orders.
[2017-11-14] MEDS: NUTRISOURCE FIBER 4 GM PACKET GT SCH ×2 (09:00→21:05)
[2017-11-14] MEDS: METOPROLOL TARTRATE 50 MG TABLET GT SCH ×2 (09:00→21:04)
[2017-11-14] MEDS: ACIDOPHILUS/BULGARICUS CHEW TAB GT SCH ×2 (09:00→21:03)
[2017-11-14] MEDS: SERTRALINE HCL 50 MG TABLET GT SCH (09:00)
[2017-11-14] MEDS: HYDROGEN PEROXIDE 3% 118 ML BOTTLE TP SCH ×2 (09:00→21:05)
[2017-11-14] MEDS: CALMOSEPTINE 113 GM OINTMENT TP SCH ×2 (09:00→21:05)
[2017-11-14] MEDS: DOCUSATE SODIUM 100 MG/10 ML LIQUID UDC GT SCH ×2 (09:00→21:03)
[2017-11-14] MEDS: SIMETHICONE 40 MG/0.6 ML, 30ML BOTTLE GT SCH ×3 (09:00→16:36)
[2017-11-14] MEDS: BACLOFEN 20 MG TABLET GT SCH ×4 (09:00→21:03)
[2017-11-14] MEDS: GLUCERNA 1.2 1000ML LIQUID GT PRN (16:38)
[2017-11-14 20:53] VITALS: BP 115/71
[2017-11-14] MEDS: ASCORBIC ACID 500 MG TABLET PO SCH (21:05)
[2017-11-15] MEDS: OMEPRAZOLE 20 MG CAPSULE.DR GT SCH (05:19)
[2017-11-15] MEDS: KETOCONAZOLE 2% SHAMPOO 120 ML BOTTLE TP SCH (08:00)
[2017-11-15] MEDS: DOCUSATE SODIUM 100 MG/10 ML LIQUID UDC GT SCH ×2 (09:18→21:22)
[2017-11-15] MEDS: ACIDOPHILUS/BULGARICUS CHEW TAB GT SCH ×2 (09:19→21:18)
[2017-11-15] MEDS: BACLOFEN 20 MG TABLET GT SCH ×4 (09:22→21:18)
[2017-11-15] MEDS: METOPROLOL TARTRATE 50 MG TABLET GT SCH ×2 (09:29→21:20)
[2017-11-15] MEDS: SIMETHICONE 40 MG/0.6 ML, 30ML BOTTLE GT SCH ×3 (09:33→17:45)
[2017-11-15] MEDS: NUTRISOURCE FIBER 4 GM PACKET GT SCH ×2 (09:33→21:20)
[2017-11-15] MEDS: SERTRALINE HCL 50 MG TABLET GT SCH (09:33)
[2017-11-15] MEDS: CALMOSEPTINE 113 GM OINTMENT TP SCH ×2 (09:34→21:21)
[2017-11-15] MEDS: HYDROGEN PEROXIDE 3% 118 ML BOTTLE TP SCH ×2 (09:35→21:21)
--- NOTE | 2017-11-15 11:44 | NUR ---
LATE ENTRY: INTERDISCIPLINARY PLAN OF CARE CONFERENCE was held on 11/13/17. Patient's family was invited to the meeting, but they was unable to attend. Dr. Heaton and the Interdisciplinary Team reviewed the current plan of care in detail. RN reported on patient's current medical condition. See RN IDT conference notes. No major changes were reported. See also all other disciplines IDT notes and physician's progress notes for additional details.
[2017-11-15 15:09] VITALS: BP_SYST 113
[2017-11-15] MEDS: GLUCERNA 1.2 1000ML LIQUID GT PRN (15:58)
[2017-11-15 20:45] VITALS: BP 124/78
[2017-11-15] MEDS: ASCORBIC ACID 500 MG TABLET PO SCH (21:20)
[2017-11-16] MEDS: MULTIVIT, IRON, MIN NO. 8, FA TABLET GT SCH (05:51)
[2017-11-16] MEDS: OMEPRAZOLE 20 MG CAPSULE.DR GT SCH (05:51)
[2017-11-16] MEDS: DOCUSATE SODIUM 100 MG/10 ML LIQUID UDC GT SCH ×2 (08:23→21:06)
[2017-11-16] MEDS: SIMETHICONE 40 MG/0.6 ML, 30ML BOTTLE GT SCH ×3 (08:23→17:33)
[2017-11-16] MEDS: METOPROLOL TARTRATE 50 MG TABLET GT SCH ×2 (08:23→21:06)
[2017-11-16] MEDS: ACIDOPHILUS/BULGARICUS CHEW TAB GT SCH ×2 (08:23→21:06)
[2017-11-16] MEDS: BACLOFEN 20 MG TABLET GT SCH ×4 (08:23→21:06)
[2017-11-16] MEDS: HYDROGEN PEROXIDE 3% 118 ML BOTTLE TP SCH ×2 (08:24→21:07)
[2017-11-16] MEDS: NUTRISOURCE FIBER 4 GM PACKET GT SCH ×2 (08:24→21:06)
[2017-11-16] MEDS: SERTRALINE HCL 50 MG TABLET GT SCH (08:24)
[2017-11-16] MEDS: CALMOSEPTINE 113 GM OINTMENT TP SCH ×2 (08:24→21:07)
[2017-11-16 12:08] VITALS: BP 118/74
[2017-11-16] MEDS: GLUCERNA 1.2 1000ML LIQUID GT PRN (17:34)
[2017-11-16 20:49] VITALS: BP 114/75
[2017-11-16] MEDS: ASCORBIC ACID 500 MG TABLET PO SCH (21:07)
[2017-11-17] MEDS: OMEPRAZOLE 20 MG CAPSULE.DR GT SCH (06:09)
[2017-11-17] MEDS: ACIDOPHILUS/BULGARICUS CHEW TAB GT SCH ×2 (08:50→21:25)
[2017-11-17] MEDS: DOCUSATE SODIUM 100 MG/10 ML LIQUID UDC GT SCH ×2 (08:50→21:25)
[2017-11-17] MEDS: BACLOFEN 20 MG TABLET GT SCH ×4 (08:53→21:25)
[2017-11-17] MEDS: SIMETHICONE 40 MG/0.6 ML, 30ML BOTTLE GT SCH ×3 (08:54→17:52)
[2017-11-17] MEDS: METOPROLOL TARTRATE 50 MG TABLET GT SCH ×2 (08:54→21:25)
[2017-11-17] MEDS: HYDROGEN PEROXIDE 3% 118 ML BOTTLE TP SCH ×2 (08:55→21:26)
[2017-11-17] MEDS: NUTRISOURCE FIBER 4 GM PACKET GT SCH ×2 (08:55→21:25)
[2017-11-17] MEDS: CALMOSEPTINE 113 GM OINTMENT TP SCH ×2 (08:55→21:25)
[2017-11-17] MEDS: SERTRALINE HCL 50 MG TABLET GT SCH (08:55)
[2017-11-17 11:52] VITALS: BP 120/79
[2017-11-17] MEDS: GLUCERNA 1.2 1000ML LIQUID GT PRN (17:45)
[2017-11-17] MEDS: ASCORBIC ACID 500 MG TABLET PO SCH (21:25)
[2017-11-17 22:00] VITALS: BP 125/85
[2017-11-18] MEDS: OMEPRAZOLE 20 MG CAPSULE.DR GT SCH (06:39)
[2017-11-18] MEDS: MULTIVIT, IRON, MIN NO. 8, FA TABLET GT SCH (06:39)
[2017-11-18 08:00] VITALS: BP 121/79
[2017-11-18] MEDS: ACIDOPHILUS/BULGARICUS CHEW TAB GT SCH ×2 (08:23→20:52)
[2017-11-18] MEDS: SERTRALINE HCL 50 MG TABLET GT SCH (08:25)
[2017-11-18] MEDS: SIMETHICONE 40 MG/0.6 ML, 30ML BOTTLE GT SCH ×3 (08:25→17:00)
[2017-11-18] MEDS: BACLOFEN 20 MG TABLET GT SCH ×4 (08:25→20:52)
[2017-11-18] MEDS: NUTRISOURCE FIBER 4 GM PACKET GT SCH ×2 (08:25→20:53)
[2017-11-18] MEDS: METOPROLOL TARTRATE 50 MG TABLET GT SCH ×2 (08:25→20:53)
[2017-11-18] MEDS: HYDROGEN PEROXIDE 3% 118 ML BOTTLE TP SCH ×2 (08:26→20:55)
[2017-11-18] MEDS: CALMOSEPTINE 113 GM OINTMENT TP SCH ×2 (08:26→20:55)
[2017-11-18] MEDS: DOCUSATE SODIUM 100 MG/10 ML LIQUID UDC GT SCH ×2 (09:00→20:52)
--- NOTE | 2017-11-18 10:00 | NUR ---
SEEN BY GLENN MORGAN.
[2017-11-18] MEDS: GLUCERNA 1.2 1000ML LIQUID GT PRN (18:36)
[2017-11-18] MEDS: ASCORBIC ACID 500 MG TABLET PO SCH (20:55)
[2017-11-18 22:00] VITALS: BP 109/78
[2017-11-19] MEDS: OMEPRAZOLE 20 MG CAPSULE.DR GT SCH (06:10)
[2017-11-19 08:00] VITALS: BP 104/79
[2017-11-19] MEDS: KETOCONAZOLE 2% SHAMPOO 120 ML BOTTLE TP SCH (08:02)
[2017-11-19] MEDS: DOCUSATE SODIUM 100 MG/10 ML LIQUID UDC GT SCH ×2 (08:02→21:23)
[2017-11-19] MEDS: ACIDOPHILUS/BULGARICUS CHEW TAB GT SCH ×2 (08:02→21:23)
[2017-11-19] MEDS: BACLOFEN 20 MG TABLET GT SCH ×4 (08:02→21:23)
[2017-11-19] MEDS: METOPROLOL TARTRATE 50 MG TABLET GT SCH ×2 (08:06→21:23)
[2017-11-19] MEDS: NUTRISOURCE FIBER 4 GM PACKET GT SCH ×2 (08:06→21:23)
[2017-11-19] MEDS: SERTRALINE HCL 50 MG TABLET GT SCH (08:06)
[2017-11-19] MEDS: HYDROGEN PEROXIDE 3% 118 ML BOTTLE TP SCH ×2 (08:06→21:23)
[2017-11-19] MEDS: SIMETHICONE 40 MG/0.6 ML, 30ML BOTTLE GT SCH ×3 (08:06→17:33)
[2017-11-19] MEDS: CALMOSEPTINE 113 GM OINTMENT TP SCH ×2 (08:06→21:23)
[2017-11-19] MEDS: GLUCERNA 1.2 1000ML LIQUID GT PRN (17:33)
[2017-11-19] MEDS: ASCORBIC ACID 500 MG TABLET PO SCH (21:23)
[2017-11-19 22:40] VITALS: BP 118/78
[2017-11-20] MEDS: OMEPRAZOLE 20 MG CAPSULE.DR GT SCH (05:51)
[2017-11-20] MEDS: MULTIVIT, IRON, MIN NO. 8, FA TABLET GT SCH (05:51)
[2017-11-20 08:00] VITALS: BP 120/80
[2017-11-20] MEDS: BACLOFEN 20 MG TABLET GT SCH ×4 (09:00→21:30)
[2017-11-20] MEDS: METOPROLOL TARTRATE 50 MG TABLET GT SCH ×2 (09:00→21:30)
[2017-11-20] MEDS: SERTRALINE HCL 50 MG TABLET GT SCH (09:00)
[2017-11-20] MEDS: NUTRISOURCE FIBER 4 GM PACKET GT SCH ×2 (09:00→21:31)
[2017-11-20] MEDS: ACIDOPHILUS/BULGARICUS CHEW TAB GT SCH ×2 (09:00→21:30)
[2017-11-20] MEDS: CALMOSEPTINE 113 GM OINTMENT TP SCH ×2 (09:00→21:31)
[2017-11-20] MEDS: DOCUSATE SODIUM 100 MG/10 ML LIQUID UDC GT SCH ×2 (09:00→21:30)
[2017-11-20] MEDS: SIMETHICONE 40 MG/0.6 ML, 30ML BOTTLE GT SCH ×3 (09:00→17:00)
[2017-11-20] MEDS: HYDROGEN PEROXIDE 3% 118 ML BOTTLE TP SCH ×2 (09:00→21:31)
[2017-11-20] MEDS: GLUCERNA 1.2 1000ML LIQUID GT PRN (18:13)
[2017-11-20 20:00] VITALS: BP 130/85
[2017-11-20] MEDS: ASCORBIC ACID 500 MG TABLET PO SCH (21:31)
[2017-11-21] MEDS: OMEPRAZOLE 20 MG CAPSULE.DR GT SCH (06:09)
--- NOTE | 2017-11-21 07:45 | NUR ---
INFORMED BY PATIENT SVCS MGR ,THE PATIENT HR IS ELEVATED 119 TO 126,O2 SAT 88 %,TEMP 99.4,SUCTIONED WITH MODERATED AMOUNT OF WHITISH FOAMED SECRETIONS,O2 INCREASE TO 40 %,WIYH HELP,HOB ELEVATED.
[2017-11-21 08:00] VITALS: BP 132/83
[2017-11-21] MEDS: DOCUSATE SODIUM 100 MG/10 ML LIQUID UDC GT SCH ×2 (08:14→20:33)
[2017-11-21] MEDS: ACIDOPHILUS/BULGARICUS CHEW TAB GT SCH ×2 (08:15→20:33)
[2017-11-21] MEDS: METOPROLOL TARTRATE 50 MG TABLET GT SCH ×2 (08:16→20:34)
[2017-11-21] MEDS: BACLOFEN 20 MG TABLET GT SCH ×4 (08:16→20:33)
[2017-11-21] MEDS: NUTRISOURCE FIBER 4 GM PACKET GT SCH ×2 (08:18→20:34)
[2017-11-21] MEDS: SERTRALINE HCL 50 MG TABLET GT SCH (08:18)
[2017-11-21] MEDS: SIMETHICONE 40 MG/0.6 ML, 30ML BOTTLE GT SCH ×3 (08:18→17:36)
[2017-11-21] MEDS: CALMOSEPTINE 113 GM OINTMENT TP SCH ×2 (08:19→20:34)
[2017-11-21] MEDS: HYDROGEN PEROXIDE 3% 118 ML BOTTLE TP SCH ×2 (08:19→20:35)
--- NOTE | 2017-11-21 11:15 | NUR ---
NEW ORDERS NOTED TO RENEW THE DANDRUFF SHAMPOO,ORDERS CARRIED OUT,PT IS RESTING AT THIS TIME,NO S/S OF DISCOMFORT NOTED,O2 SAT 98 %,O2 DECREASE BACK TO 28 %,HR 67,SITTER AT BEDSIDE.ON CLOSE OBSERVATION.
[2017-11-21] MEDS: GLUCERNA 1.2 1000ML LIQUID GT PRN (17:36)
[2017-11-21 20:00] VITALS: BP 134/84
[2017-11-21] MEDS: ASCORBIC ACID 500 MG TABLET PO SCH (20:34)
[2017-11-22] MEDS: OMEPRAZOLE 20 MG CAPSULE.DR GT SCH (05:32)
[2017-11-22] MEDS: MULTIVIT, IRON, MIN NO. 8, FA TABLET GT SCH (05:32)
--- NOTE | 2017-11-22 07:36 | NUR ---
NO EPISODE OF DESATURATION NOTED, NO RESPIRATORY DISTRESS NOTED.
[2017-11-22 08:00] VITALS: BP 114/68
[2017-11-22] MEDS: BACLOFEN 20 MG TABLET GT SCH ×4 (08:13→20:53)
[2017-11-22] MEDS: DOCUSATE SODIUM 100 MG/10 ML LIQUID UDC GT SCH ×2 (08:13→20:52)
[2017-11-22] MEDS: ACIDOPHILUS/BULGARICUS CHEW TAB GT SCH ×2 (08:13→20:52)
[2017-11-22] MEDS: KETOCONAZOLE 2% SHAMPOO 120 ML BOTTLE TP SCH (08:14)
[2017-11-22] MEDS: METOPROLOL TARTRATE 50 MG TABLET GT SCH ×2 (08:14→20:53)
[2017-11-22] MEDS: NUTRISOURCE FIBER 4 GM PACKET GT SCH ×2 (08:14→20:53)
[2017-11-22] MEDS: SIMETHICONE 40 MG/0.6 ML, 30ML BOTTLE GT SCH ×3 (08:14→16:17)
[2017-11-22] MEDS: SERTRALINE HCL 50 MG TABLET GT SCH (08:14)
[2017-11-22] MEDS: HYDROGEN PEROXIDE 3% 118 ML BOTTLE TP SCH ×2 (08:14→20:53)
[2017-11-22] MEDS: CALMOSEPTINE 113 GM OINTMENT TP SCH ×2 (08:14→20:53)
[2017-11-22] MEDS: HYDROCODONE/APAP 5-325MG TABLET GT PRN (08:22)
--- NOTE | 2017-11-22 09:00 | NUR ---
Seen by Dr. Heaton with no new order.
[2017-11-22] MEDS: GLUCERNA 1.2 1000ML LIQUID GT PRN (17:44)
[2017-11-22 20:00] VITALS: BP 121/76
[2017-11-22] MEDS: ASCORBIC ACID 500 MG TABLET PO SCH (20:53)
[2017-11-23] MEDS: OMEPRAZOLE 20 MG CAPSULE.DR GT SCH (05:24)
[2017-11-23 08:00] VITALS: BP 118/82
[2017-11-23] MEDS: BACLOFEN 20 MG TABLET GT SCH ×4 (08:39→21:59)
[2017-11-23] MEDS: DOCUSATE SODIUM 100 MG/10 ML LIQUID UDC GT SCH ×2 (08:39→21:59)
[2017-11-23] MEDS: ACIDOPHILUS/BULGARICUS CHEW TAB GT SCH ×2 (08:39→21:59)
[2017-11-23] MEDS: HYDROGEN PEROXIDE 3% 118 ML BOTTLE TP SCH ×2 (08:40→21:00)
[2017-11-23] MEDS: METOPROLOL TARTRATE 50 MG TABLET GT SCH ×2 (08:40→22:00)
[2017-11-23] MEDS: NUTRISOURCE FIBER 4 GM PACKET GT SCH ×2 (08:40→21:00)
[2017-11-23] MEDS: SIMETHICONE 40 MG/0.6 ML, 30ML BOTTLE GT SCH ×3 (08:40→16:18)
[2017-11-23] MEDS: SERTRALINE HCL 50 MG TABLET GT SCH (08:40)
[2017-11-23] MEDS: CALMOSEPTINE 113 GM OINTMENT TP SCH ×2 (08:40→21:00)
[2017-11-23] MEDS: GLUCERNA 1.2 1000ML LIQUID GT PRN (17:48)
[2017-11-23] MEDS: ASCORBIC ACID 500 MG TABLET PO SCH (21:00)
[2017-11-23 22:00] VITALS: BP 103/67
[2017-11-24] MEDS: OMEPRAZOLE 20 MG CAPSULE.DR GT SCH (05:37)
[2017-11-24] MEDS: MULTIVIT, IRON, MIN NO. 8, FA TABLET GT SCH (05:37)
[2017-11-24 08:02] VITALS: BP 112/79
[2017-11-24] MEDS: DOCUSATE SODIUM 100 MG/10 ML LIQUID UDC GT SCH ×2 (08:58→21:32)
[2017-11-24] MEDS: ACIDOPHILUS/BULGARICUS CHEW TAB GT SCH ×2 (08:58→21:32)
[2017-11-24] MEDS: BACLOFEN 20 MG TABLET GT SCH ×4 (08:58→21:32)
[2017-11-24] MEDS: SERTRALINE HCL 50 MG TABLET GT SCH (08:59)
[2017-11-24] MEDS: METOPROLOL TARTRATE 50 MG TABLET GT SCH ×2 (08:59→21:32)
[2017-11-24] MEDS: HYDROGEN PEROXIDE 3% 118 ML BOTTLE TP SCH ×2 (08:59→21:33)
[2017-11-24] MEDS: CALMOSEPTINE 113 GM OINTMENT TP SCH ×2 (08:59→21:33)
[2017-11-24] MEDS: NUTRISOURCE FIBER 4 GM PACKET GT SCH ×2 (08:59→21:32)
[2017-11-24] MEDS: SIMETHICONE 40 MG/0.6 ML, 30ML BOTTLE GT SCH ×3 (08:59→17:00)
[2017-11-24] MEDS: GLUCERNA 1.2 1000ML LIQUID GT PRN (15:04)
[2017-11-24] MEDS: ASCORBIC ACID 500 MG TABLET PO SCH (21:33)
[2017-11-24 23:08] VITALS: BP 111/67
[2017-11-25] MEDS: OMEPRAZOLE 20 MG CAPSULE.DR GT SCH (05:48)
[2017-11-25] MEDS: BACLOFEN 20 MG TABLET GT SCH ×4 (08:00→21:53)
[2017-11-25] MEDS: DOCUSATE SODIUM 100 MG/10 ML LIQUID UDC GT SCH ×2 (08:00→21:53)
[2017-11-25] MEDS: ACIDOPHILUS/BULGARICUS CHEW TAB GT SCH ×2 (08:00→21:53)
[2017-11-25] MEDS: HYDROGEN PEROXIDE 3% 118 ML BOTTLE TP SCH ×2 (08:01→21:54)
[2017-11-25] MEDS: SERTRALINE HCL 50 MG TABLET GT SCH (08:01)
[2017-11-25] MEDS: CALMOSEPTINE 113 GM OINTMENT TP SCH ×2 (08:01→21:54)
[2017-11-25] MEDS: SIMETHICONE 40 MG/0.6 ML, 30ML BOTTLE GT SCH ×3 (08:01→17:00)
[2017-11-25] MEDS: METOPROLOL TARTRATE 50 MG TABLET GT SCH ×2 (08:01→21:54)
[2017-11-25] MEDS: NUTRISOURCE FIBER 4 GM PACKET GT SCH ×2 (08:01→21:54)
[2017-11-25 08:15] VITALS: BP 114/63
[2017-11-25] MEDS: GLUCERNA 1.2 1000ML LIQUID GT PRN (12:02)
[2017-11-25] MEDS: ASCORBIC ACID 500 MG TABLET PO SCH (21:54)
[2017-11-25 22:00] VITALS: BP 103/74
[2017-11-26] MEDS: MULTIVIT, IRON, MIN NO. 8, FA TABLET GT SCH (06:11)
[2017-11-26] MEDS: OMEPRAZOLE 20 MG CAPSULE.DR GT SCH (06:11)
[2017-11-26 08:00] VITALS: BP 121/85
[2017-11-26] MEDS: BACLOFEN 20 MG TABLET GT SCH ×4 (08:17→21:24)
[2017-11-26] MEDS: CALMOSEPTINE 113 GM OINTMENT TP SCH ×2 (08:17→21:25)
[2017-11-26] MEDS: DOCUSATE SODIUM 100 MG/10 ML LIQUID UDC GT SCH ×2 (08:17→21:24)
[2017-11-26] MEDS: NUTRISOURCE FIBER 4 GM PACKET GT SCH ×2 (08:17→21:25)
[2017-11-26] MEDS: METOPROLOL TARTRATE 50 MG TABLET GT SCH ×2 (08:17→21:25)
[2017-11-26] MEDS: KETOCONAZOLE 2% SHAMPOO 120 ML BOTTLE TP SCH (08:17)
[2017-11-26] MEDS: HYDROGEN PEROXIDE 3% 118 ML BOTTLE TP SCH ×2 (08:17→21:25)
[2017-11-26] MEDS: ACIDOPHILUS/BULGARICUS CHEW TAB GT SCH ×2 (08:17→21:24)
[2017-11-26] MEDS: SIMETHICONE 40 MG/0.6 ML, 30ML BOTTLE GT SCH ×3 (08:17→17:44)
[2017-11-26] MEDS: SERTRALINE HCL 50 MG TABLET GT SCH (08:17)
[2017-11-26] MEDS: ASCORBIC ACID 500 MG TABLET PO SCH (21:25)
[2017-11-26 22:00] VITALS: BP 108/74
[2017-11-27] MEDS: OMEPRAZOLE 20 MG CAPSULE.DR GT SCH (06:12)
[2017-11-27 08:00] VITALS: BP 117/75
[2017-11-27] MEDS: METOPROLOL TARTRATE 50 MG TABLET GT SCH ×2 (08:41→21:13)
[2017-11-27] MEDS: BACLOFEN 20 MG TABLET GT SCH ×4 (08:41→21:13)
[2017-11-27] MEDS: DOCUSATE SODIUM 100 MG/10 ML LIQUID UDC GT SCH ×2 (08:41→21:12)
[2017-11-27] MEDS: ACIDOPHILUS/BULGARICUS CHEW TAB GT SCH ×2 (08:41→21:12)
[2017-11-27] MEDS: SERTRALINE HCL 50 MG TABLET GT SCH (08:42)
[2017-11-27] MEDS: NUTRISOURCE FIBER 4 GM PACKET GT SCH ×2 (08:42→21:13)
[2017-11-27] MEDS: SIMETHICONE 40 MG/0.6 ML, 30ML BOTTLE GT SCH ×3 (08:42→17:33)
[2017-11-27] MEDS: CALMOSEPTINE 113 GM OINTMENT TP SCH ×2 (08:46→21:13)
[2017-11-27] MEDS: HYDROGEN PEROXIDE 3% 118 ML BOTTLE TP SCH ×2 (08:46→21:14)
[2017-11-27] MEDS: GLUCERNA 1.2 1000ML LIQUID GT PRN (15:04)
[2017-11-27] MEDS: ASCORBIC ACID 500 MG TABLET PO SCH (21:13)
[2017-11-28] MEDS: OMEPRAZOLE 20 MG CAPSULE.DR GT SCH (05:23)
[2017-11-28] MEDS: MULTIVIT, IRON, MIN NO. 8, FA TABLET GT SCH (05:33)
[2017-11-28 08:00] VITALS: BP 119/80
[2017-11-28] MEDS: ACIDOPHILUS/BULGARICUS CHEW TAB GT SCH ×2 (08:38→21:21)
[2017-11-28] MEDS: METOPROLOL TARTRATE 50 MG TABLET GT SCH ×2 (08:38→21:23)
[2017-11-28] MEDS: DOCUSATE SODIUM 100 MG/10 ML LIQUID UDC GT SCH ×2 (08:38→21:21)
[2017-11-28] MEDS: HYDROGEN PEROXIDE 3% 118 ML BOTTLE TP SCH ×2 (08:39→21:23)
[2017-11-28] MEDS: BACLOFEN 20 MG TABLET GT SCH ×4 (08:39→21:22)
[2017-11-28] MEDS: NUTRISOURCE FIBER 4 GM PACKET GT SCH ×2 (08:39→21:23)
[2017-11-28] MEDS: SIMETHICONE 40 MG/0.6 ML, 30ML BOTTLE GT SCH ×3 (08:39→17:00)
[2017-11-28] MEDS: SERTRALINE HCL 50 MG TABLET GT SCH (08:39)
[2017-11-28] MEDS: CALMOSEPTINE 113 GM OINTMENT TP SCH ×2 (08:39→21:23)
--- NOTE | 2017-11-28 10:30 | NUR ---
Seen and examined by Dr Heaton,no new orders noted.
--- NOTE | 2017-11-28 13:30 | NUR ---
SEEN AND EXAMINED BY ABIEL MORGAN.
[2017-11-28] MEDS: GLUCERNA 1.2 1000ML LIQUID GT PRN (16:36)
[2017-11-28 20:44] VITALS: BP 116/77
[2017-11-28] MEDS: ASCORBIC ACID 500 MG TABLET PO SCH (21:23)
[2017-11-29] MEDS: ACETAMINOPHEN 650 MG/20 ML UDC- SA PATIENTS-PAIN ONLY GT PRN (04:00)
[2017-11-29] MEDS: OMEPRAZOLE 20 MG CAPSULE.DR GT SCH (05:44)
[2017-11-29] MEDS: DOCUSATE SODIUM 100 MG/10 ML LIQUID UDC GT SCH ×2 (09:03→21:00)
[2017-11-29] MEDS: BACLOFEN 20 MG TABLET GT SCH ×4 (09:04→21:00)
[2017-11-29] MEDS: ACIDOPHILUS/BULGARICUS CHEW TAB GT SCH ×2 (09:04→21:00)
[2017-11-29] MEDS: METOPROLOL TARTRATE 50 MG TABLET GT SCH ×2 (09:05→21:00)
[2017-11-29] MEDS: SIMETHICONE 40 MG/0.6 ML, 30ML BOTTLE GT SCH ×3 (09:05→17:00)
[2017-11-29] MEDS: NUTRISOURCE FIBER 4 GM PACKET GT SCH ×2 (09:05→21:00)
[2017-11-29] MEDS: SERTRALINE HCL 50 MG TABLET GT SCH (09:06)
[2017-11-29] MEDS: CALMOSEPTINE 113 GM OINTMENT TP SCH ×2 (09:06→21:00)
[2017-11-29] MEDS: HYDROGEN PEROXIDE 3% 118 ML BOTTLE TP SCH ×2 (09:06→21:00)
[2017-11-29] MEDS: KETOCONAZOLE 2% SHAMPOO 120 ML BOTTLE TP SCH (09:06)
[2017-11-29] MEDS: GLUCERNA 1.2 1000ML LIQUID GT PRN (13:30)
--- NOTE | 2017-11-29 14:08 | NUR ---
SEEN BY GLENN MORGAN.
[2017-11-29 15:55] VITALS: BP 116/72
[2017-11-29 19:56] VITALS: BP 122/77
[2017-11-29] MEDS: ASCORBIC ACID 500 MG TABLET PO SCH (21:00)
[2017-11-30] MEDS: OMEPRAZOLE 20 MG CAPSULE.DR GT SCH (05:34)
[2017-11-30] MEDS: MULTIVIT, IRON, MIN NO. 8, FA TABLET GT SCH (05:34)
[2017-11-30 08:05] VITALS: BP 113/68
[2017-11-30] MEDS: NUTRISOURCE FIBER 4 GM PACKET GT SCH ×2 (08:54→20:38)
[2017-11-30] MEDS: BACLOFEN 20 MG TABLET GT SCH ×4 (08:54→20:39)
[2017-11-30] MEDS: HYDROGEN PEROXIDE 3% 118 ML BOTTLE TP SCH ×2 (08:54→20:38)
[2017-11-30] MEDS: SIMETHICONE 40 MG/0.6 ML, 30ML BOTTLE GT SCH ×3 (08:54→17:00)
[2017-11-30] MEDS: CALMOSEPTINE 113 GM OINTMENT TP SCH ×2 (08:54→20:38)
[2017-11-30] MEDS: ACIDOPHILUS/BULGARICUS CHEW TAB GT SCH ×2 (08:54→20:39)
[2017-11-30] MEDS: METOPROLOL TARTRATE 50 MG TABLET GT SCH ×2 (08:54→20:39)
[2017-11-30] MEDS: DOCUSATE SODIUM 100 MG/10 ML LIQUID UDC GT SCH ×2 (08:54→20:39)
[2017-11-30] MEDS: SERTRALINE HCL 50 MG TABLET GT SCH (08:54)
--- NOTE | 2017-11-30 16:31 | NUR ---
NEW LOCAL [place] ORDER FOR INNER ANAL BUTTOCK EXCORIATION FROM GLENN Bolaños
[2017-11-30 20:04] VITALS: BP 110/71
[2017-11-30] MEDS: COD LIVER OIL/ZINC OXIDE OINT 113 GM TUBE TP SCH (20:38)
[2017-11-30] MEDS: ASCORBIC ACID 500 MG TABLET PO SCH (20:38)
[2017-12-01] MEDS: OMEPRAZOLE 20 MG CAPSULE.DR GT SCH (05:13)
[2017-12-01] MEDS: GLUCERNA 1.2 1000ML LIQUID GT PRN (05:14)
[2017-12-01 08:05] VITALS: BP 111/70
[2017-12-01] MEDS: CALMOSEPTINE 113 GM OINTMENT TP SCH ×2 (09:00→20:53)
[2017-12-01] MEDS: SIMETHICONE 40 MG/0.6 ML, 30ML BOTTLE GT SCH ×3 (09:00→17:00)
[2017-12-01] MEDS: NUTRISOURCE FIBER 4 GM PACKET GT SCH ×2 (09:00→20:53)
[2017-12-01] MEDS: COD LIVER OIL/ZINC OXIDE OINT 113 GM TUBE TP SCH ×2 (09:00→20:53)
[2017-12-01] MEDS: HYDROGEN PEROXIDE 3% 118 ML BOTTLE TP SCH ×2 (09:00→20:54)
[2017-12-01] MEDS: SERTRALINE HCL 50 MG TABLET GT SCH (09:00)
[2017-12-01] MEDS: METOPROLOL TARTRATE 50 MG TABLET GT SCH ×2 (09:00→20:53)
[2017-12-01] MEDS: ACIDOPHILUS/BULGARICUS CHEW TAB GT SCH ×2 (09:57→20:53)
[2017-12-01] MEDS: DOCUSATE SODIUM 100 MG/10 ML LIQUID UDC GT SCH ×2 (09:57→20:53)
[2017-12-01] MEDS: BACLOFEN 20 MG TABLET GT SCH ×3 (09:57→21:00)
[2017-12-01 20:34] VITALS: BP 117/87
[2017-12-01] MEDS: ASCORBIC ACID 500 MG TABLET PO SCH (20:53)
[2017-12-02] MEDS: OMEPRAZOLE 20 MG CAPSULE.DR GT SCH (06:46)
[2017-12-02] MEDS: MULTIVIT, IRON, MIN NO. 8, FA TABLET GT SCH (06:46)
[2017-12-02 08:05] VITALS: BP 138/92
[2017-12-02] MEDS: NUTRISOURCE FIBER 4 GM PACKET GT SCH ×2 (09:00→21:50)
[2017-12-02] MEDS: DOCUSATE SODIUM 100 MG/10 ML LIQUID UDC GT SCH ×2 (09:00→21:50)
[2017-12-02] MEDS: BACLOFEN 20 MG TABLET GT SCH ×4 (09:00→21:50)
[2017-12-02] MEDS: METOPROLOL TARTRATE 50 MG TABLET GT SCH ×2 (09:00→21:50)
[2017-12-02] MEDS: CALMOSEPTINE 113 GM OINTMENT TP SCH ×2 (09:00→21:50)
[2017-12-02] MEDS: SIMETHICONE 40 MG/0.6 ML, 30ML BOTTLE GT SCH ×3 (09:00→17:33)
[2017-12-02] MEDS: COD LIVER OIL/ZINC OXIDE OINT 113 GM TUBE TP SCH ×2 (09:00→21:50)
[2017-12-02] MEDS: HYDROGEN PEROXIDE 3% 118 ML BOTTLE TP SCH ×2 (09:00→21:51)
[2017-12-02] MEDS: ACIDOPHILUS/BULGARICUS CHEW TAB GT SCH ×2 (09:00→21:50)
[2017-12-02] MEDS: SERTRALINE HCL 50 MG TABLET GT SCH (09:00)
[2017-12-02 20:04] VITALS: BP 122/78
[2017-12-02] MEDS: ASCORBIC ACID 500 MG TABLET PO SCH (21:50)
[2017-12-03] MEDS: OMEPRAZOLE 20 MG CAPSULE.DR GT SCH (06:50)
[2017-12-03] MEDS: GLUCERNA 1.2 1000ML LIQUID GT PRN (06:50)
[2017-12-03 08:00] VITALS: BP 102/67
[2017-12-03] MEDS: ACIDOPHILUS/BULGARICUS CHEW TAB GT SCH ×2 (08:46→21:59)
[2017-12-03] MEDS: DOCUSATE SODIUM 100 MG/10 ML LIQUID UDC GT SCH ×2 (08:46→21:59)
[2017-12-03] MEDS: SIMETHICONE 40 MG/0.6 ML, 30ML BOTTLE GT SCH ×3 (08:47→17:34)
[2017-12-03] MEDS: BACLOFEN 20 MG TABLET GT SCH ×4 (08:47→21:59)
[2017-12-03] MEDS: METOPROLOL TARTRATE 50 MG TABLET GT SCH ×2 (08:47→21:59)
[2017-12-03] MEDS: COD LIVER OIL/ZINC OXIDE OINT 113 GM TUBE TP SCH ×2 (08:48→22:00)
[2017-12-03] MEDS: SERTRALINE HCL 50 MG TABLET GT SCH (08:48)
[2017-12-03] MEDS: HYDROGEN PEROXIDE 3% 118 ML BOTTLE TP SCH ×2 (08:48→21:00)
[2017-12-03] MEDS: KETOCONAZOLE 2% SHAMPOO 120 ML BOTTLE TP SCH (08:48)
[2017-12-03] MEDS: NUTRISOURCE FIBER 4 GM PACKET GT SCH ×2 (08:48→21:59)
[2017-12-03] MEDS: CALMOSEPTINE 113 GM OINTMENT TP SCH ×2 (08:48→21:59)
[2017-12-03 20:22] VITALS: BP 129/77
[2017-12-03] MEDS: ASCORBIC ACID 500 MG TABLET PO SCH (21:59)
[2017-12-04] MEDS: MULTIVIT, IRON, MIN NO. 8, FA TABLET GT SCH (06:51)
[2017-12-04] MEDS: OMEPRAZOLE 20 MG CAPSULE.DR GT SCH (06:51)
[2017-12-04] MEDS: GLUCERNA 1.2 1000ML LIQUID GT PRN (06:52)
[2017-12-04 08:00] VITALS: BP 120/93
[2017-12-04] MEDS: BACLOFEN 20 MG TABLET GT SCH ×4 (08:55→21:20)
[2017-12-04] MEDS: DOCUSATE SODIUM 100 MG/10 ML LIQUID UDC GT SCH ×2 (08:55→21:20)
[2017-12-04] MEDS: ACIDOPHILUS/BULGARICUS CHEW TAB GT SCH ×2 (08:55→21:20)
[2017-12-04] MEDS: NUTRISOURCE FIBER 4 GM PACKET GT SCH ×2 (08:56→21:21)
[2017-12-04] MEDS: COD LIVER OIL/ZINC OXIDE OINT 113 GM TUBE TP SCH ×2 (08:56→21:21)
[2017-12-04] MEDS: SERTRALINE HCL 50 MG TABLET GT SCH (08:56)
[2017-12-04] MEDS: SIMETHICONE 40 MG/0.6 ML, 30ML BOTTLE GT SCH ×3 (08:56→17:52)
[2017-12-04] MEDS: METOPROLOL TARTRATE 50 MG TABLET GT SCH ×2 (08:56→21:21)
[2017-12-04] MEDS: CALMOSEPTINE 113 GM OINTMENT TP SCH ×2 (08:56→21:21)
[2017-12-04] MEDS: HYDROGEN PEROXIDE 3% 118 ML BOTTLE TP SCH ×2 (08:56→21:21)
--- NOTE | 2017-12-04 15:47 | NUR ---
Pharmacy review for upcoming 12/11/17 IDT meeting VS: Temp 98.2 BP 129/77 HR 83 LABS: (from 10/08/17, no new labs) Wbc 5.9H/H 11.8/36.1Plt 278 Na 139K 3.8Cl 105CO2 25BUN/SCr 15/0.8 BS 117 Ca 8.8A1c 5.7TSH 1.375 MEDICATION USE REVIEWED: > Pt is not on any anti-epileptic medications > Pt is on Zoloft 50mg daily for depression m/b episodes of crying; No GDR planned for pt d/t contraindication of persisten cry episodes and repeated failed GDRs in the past (see MD note). Patient had x0 in October (previously x0 September, x0 October, x1 November, x1 Dec, x0 Jan, x2 Feb, x4 Mar, x0 Apr, x7 May, x0 Jun, x4 July, x0 August, x0 September) > Pt is on depo-provera [id number] for heavy menstruation, last given 10/03/17 > PRN MED USAGE: (October) Tylenol 650mg for mild pain used x0 Tylenol for temp x0 Tylenol 1000mg mod pain x0 [place] severe pain x2 Bisacodyl x0 Immodium x0 Rodriguez flush enema x0 NEW ORDERS NOTED: > Ketoconazole 2% shampoo Sunday and renewed 11/22 No further recs at this time, pt remains stable, medications reviewed with no concerns. Addendum: 12/11/17 at 1806 by CHANCE PARKER ADM Update from today's 12/11/17 IDT Meeting Patient was reviewed and discussed in detail with no medication issues at this time. Patient remains stable on current regimen, will continue to follow
[2017-12-04 20:54] VITALS: BP 115/73
[2017-12-04] MEDS: ASCORBIC ACID 500 MG TABLET PO SCH (21:21)
[2017-12-05] MEDS: GLUCERNA 1.2 1000ML LIQUID GT PRN (02:00)
[2017-12-05] MEDS: OMEPRAZOLE 20 MG CAPSULE.DR GT SCH (05:58)
[2017-12-05 08:00] VITALS: BP 120/80
[2017-12-05] MEDS: BACLOFEN 20 MG TABLET GT SCH ×4 (08:56→21:02)
[2017-12-05] MEDS: NUTRISOURCE FIBER 4 GM PACKET GT SCH ×2 (08:56→21:03)
[2017-12-05] MEDS: SIMETHICONE 40 MG/0.6 ML, 30ML BOTTLE GT SCH ×3 (08:56→17:36)
[2017-12-05] MEDS: DOCUSATE SODIUM 100 MG/10 ML LIQUID UDC GT SCH ×2 (08:56→21:02)
[2017-12-05] MEDS: COD LIVER OIL/ZINC OXIDE OINT 113 GM TUBE TP SCH ×2 (08:56→21:03)
[2017-12-05] MEDS: CALMOSEPTINE 113 GM OINTMENT TP SCH ×2 (08:56→21:03)
[2017-12-05] MEDS: ACIDOPHILUS/BULGARICUS CHEW TAB GT SCH ×2 (08:56→21:02)
[2017-12-05] MEDS: METOPROLOL TARTRATE 50 MG TABLET GT SCH ×2 (08:56→21:03)
[2017-12-05] MEDS: SERTRALINE HCL 50 MG TABLET GT SCH (08:56)
[2017-12-05] MEDS: HYDROGEN PEROXIDE 3% 118 ML BOTTLE TP SCH ×2 (08:57→21:03)
--- NOTE | 2017-12-05 11:30 | NUR ---
Seen and examined by Dr Heaton,no new orders.
--- NOTE | 2017-12-05 13:00 | NUR ---
Seen by Nikki CARMICHAEL,no new orders .
[2017-12-05 20:00] VITALS: BP 116/79
[2017-12-05] MEDS: ASCORBIC ACID 500 MG TABLET PO SCH (21:03)
[2017-12-06] MEDS: GLUCERNA 1.2 1000ML LIQUID GT PRN (03:03)
[2017-12-06] MEDS: OMEPRAZOLE 20 MG CAPSULE.DR GT SCH (05:28)
[2017-12-06] MEDS: MULTIVIT, IRON, MIN NO. 8, FA TABLET GT SCH (05:34)
[2017-12-06] MEDS: ACIDOPHILUS/BULGARICUS CHEW TAB GT SCH ×2 (08:41→21:42)
[2017-12-06] MEDS: DOCUSATE SODIUM 100 MG/10 ML LIQUID UDC GT SCH ×2 (08:41→21:42)
[2017-12-06] MEDS: BACLOFEN 20 MG TABLET GT SCH ×4 (08:42→21:42)
[2017-12-06] MEDS: METOPROLOL TARTRATE 50 MG TABLET GT SCH ×2 (08:43→21:42)
[2017-12-06] MEDS: NUTRISOURCE FIBER 4 GM PACKET GT SCH ×2 (08:43→21:42)
[2017-12-06] MEDS: SIMETHICONE 40 MG/0.6 ML, 30ML BOTTLE GT SCH ×3 (08:43→16:52)
[2017-12-06] MEDS: HYDROGEN PEROXIDE 3% 118 ML BOTTLE TP SCH ×2 (08:44→21:43)
[2017-12-06] MEDS: KETOCONAZOLE 2% SHAMPOO 120 ML BOTTLE TP SCH (08:44)
[2017-12-06] MEDS: SERTRALINE HCL 50 MG TABLET GT SCH (08:44)
[2017-12-06] MEDS: CALMOSEPTINE 113 GM OINTMENT TP SCH ×2 (08:44→21:43)
[2017-12-06] MEDS: COD LIVER OIL/ZINC OXIDE OINT 113 GM TUBE TP SCH ×2 (08:44→21:43)
[2017-12-06 11:42] VITALS: BP 107/64
--- NOTE | 2017-12-06 12:13 | NUR ---
SEEN BY GLENN MORGAN.
[2017-12-06 20:11] VITALS: BP 125/78
[2017-12-06] MEDS: ASCORBIC ACID 500 MG TABLET PO SCH (21:43)
[2017-12-07] MEDS: GLUCERNA 1.2 1000ML LIQUID GT PRN (01:01)
[2017-12-07] MEDS: OMEPRAZOLE 20 MG CAPSULE.DR GT SCH (05:16)
[2017-12-07] MEDS: BACLOFEN 20 MG TABLET GT SCH ×4 (09:00→21:50)
[2017-12-07] MEDS: SERTRALINE HCL 50 MG TABLET GT SCH (09:00)
[2017-12-07] MEDS: CALMOSEPTINE 113 GM OINTMENT TP SCH ×2 (09:00→21:51)
[2017-12-07] MEDS: METOPROLOL TARTRATE 50 MG TABLET GT SCH ×2 (09:00→21:50)
[2017-12-07] MEDS: ACIDOPHILUS/BULGARICUS CHEW TAB GT SCH ×2 (09:00→21:50)
[2017-12-07] MEDS: HYDROGEN PEROXIDE 3% 118 ML BOTTLE TP SCH ×2 (09:00→21:51)
[2017-12-07] MEDS: NUTRISOURCE FIBER 4 GM PACKET GT SCH ×2 (09:00→21:50)
[2017-12-07] MEDS: COD LIVER OIL/ZINC OXIDE OINT 113 GM TUBE TP SCH ×2 (09:00→21:51)
[2017-12-07] MEDS: DOCUSATE SODIUM 100 MG/10 ML LIQUID UDC GT SCH ×2 (09:00→21:50)
[2017-12-07] MEDS: SIMETHICONE 40 MG/0.6 ML, 30ML BOTTLE GT SCH ×3 (09:00→17:18)
[2017-12-07 11:16] VITALS: BP 112/64
[2017-12-07 20:02] VITALS: BP 130/94
[2017-12-07] MEDS: ASCORBIC ACID 500 MG TABLET PO SCH (21:50)
[2017-12-08] MEDS: GLUCERNA 1.2 1000ML LIQUID GT PRN (01:38)
[2017-12-08] MEDS: MULTIVIT, IRON, MIN NO. 8, FA TABLET GT SCH (05:42)
[2017-12-08] MEDS: OMEPRAZOLE 20 MG CAPSULE.DR GT SCH (05:42)
[2017-12-08 08:15] VITALS: BP 95/61
[2017-12-08] MEDS: ACIDOPHILUS/BULGARICUS CHEW TAB GT SCH ×2 (08:50→21:11)
[2017-12-08] MEDS: BACLOFEN 20 MG TABLET GT SCH ×4 (08:50→21:11)
[2017-12-08] MEDS: DOCUSATE SODIUM 100 MG/10 ML LIQUID UDC GT SCH ×2 (08:50→21:11)
[2017-12-08] MEDS: NUTRISOURCE FIBER 4 GM PACKET GT SCH ×2 (08:51→21:12)
[2017-12-08] MEDS: SIMETHICONE 40 MG/0.6 ML, 30ML BOTTLE GT SCH ×3 (08:51→17:09)
[2017-12-08] MEDS: CALMOSEPTINE 113 GM OINTMENT TP SCH ×2 (08:51→21:12)
[2017-12-08] MEDS: SERTRALINE HCL 50 MG TABLET GT SCH (08:51)
[2017-12-08] MEDS: METOPROLOL TARTRATE 50 MG TABLET GT SCH ×2 (08:51→21:12)
[2017-12-08] MEDS: HYDROGEN PEROXIDE 3% 118 ML BOTTLE TP SCH ×2 (08:52→21:12)
[2017-12-08] MEDS: COD LIVER OIL/ZINC OXIDE OINT 113 GM TUBE TP SCH ×2 (08:52→21:12)
[2017-12-08 20:01] VITALS: BP 118/78
[2017-12-08] MEDS: ASCORBIC ACID 500 MG TABLET PO SCH (21:12)
[2017-12-09] MEDS: GLUCERNA 1.2 1000ML LIQUID GT PRN (01:26)
[2017-12-09] MEDS: OMEPRAZOLE 20 MG CAPSULE.DR GT SCH (05:09)
[2017-12-09 08:09] VITALS: BP 117/78
[2017-12-09] MEDS: DOCUSATE SODIUM 100 MG/10 ML LIQUID UDC GT SCH ×2 (08:23→21:52)
[2017-12-09] MEDS: ACIDOPHILUS/BULGARICUS CHEW TAB GT SCH ×2 (08:24→21:52)
[2017-12-09] MEDS: SERTRALINE HCL 50 MG TABLET GT SCH (08:25)
[2017-12-09] MEDS: SIMETHICONE 40 MG/0.6 ML, 30ML BOTTLE GT SCH ×3 (08:25→16:10)
[2017-12-09] MEDS: BACLOFEN 20 MG TABLET GT SCH ×4 (08:25→21:52)
[2017-12-09] MEDS: NUTRISOURCE FIBER 4 GM PACKET GT SCH ×2 (08:25→21:53)
[2017-12-09] MEDS: METOPROLOL TARTRATE 50 MG TABLET GT SCH ×2 (08:25→21:53)
[2017-12-09] MEDS: CALMOSEPTINE 113 GM OINTMENT TP SCH ×2 (08:26→21:53)
[2017-12-09] MEDS: HYDROGEN PEROXIDE 3% 118 ML BOTTLE TP SCH ×2 (08:26→21:53)
[2017-12-09] MEDS: COD LIVER OIL/ZINC OXIDE OINT 113 GM TUBE TP SCH ×2 (08:26→21:53)
[2017-12-09 20:37] VITALS: BP 127/88
[2017-12-09] MEDS: ASCORBIC ACID 500 MG TABLET PO SCH (21:53)
[2017-12-10] MEDS: OMEPRAZOLE 20 MG CAPSULE.DR GT SCH (06:27)
[2017-12-10] MEDS: MULTIVIT, IRON, MIN NO. 8, FA TABLET GT SCH (06:27)
[2017-12-10 08:00] VITALS: BP_SYST 130; BP_DIAS 69; BP_DIAS 79
[2017-12-10] MEDS: DOCUSATE SODIUM 100 MG/10 ML LIQUID UDC GT SCH ×2 (09:30→21:00)
[2017-12-10] MEDS: ACIDOPHILUS/BULGARICUS CHEW TAB GT SCH ×2 (09:31→21:00)
[2017-12-10] MEDS: BACLOFEN 20 MG TABLET GT SCH ×4 (09:31→21:00)
[2017-12-10] MEDS: SIMETHICONE 40 MG/0.6 ML, 30ML BOTTLE GT SCH ×3 (09:32→16:15)
[2017-12-10] MEDS: METOPROLOL TARTRATE 50 MG TABLET GT SCH ×2 (09:32→21:00)
[2017-12-10] MEDS: NUTRISOURCE FIBER 4 GM PACKET GT SCH ×2 (09:32→21:00)
[2017-12-10] MEDS: HYDROGEN PEROXIDE 3% 118 ML BOTTLE TP SCH ×2 (09:34→21:00)
[2017-12-10] MEDS: SERTRALINE HCL 50 MG TABLET GT SCH (09:34)
[2017-12-10] MEDS: KETOCONAZOLE 2% SHAMPOO 120 ML BOTTLE TP SCH (09:34)
[2017-12-10] MEDS: COD LIVER OIL/ZINC OXIDE OINT 113 GM TUBE TP SCH ×2 (09:34→21:00)
[2017-12-10] MEDS: CALMOSEPTINE 113 GM OINTMENT TP SCH ×2 (09:34→21:00)
[2017-12-10] MEDS: ASCORBIC ACID 500 MG TABLET PO SCH (21:00)
[2017-12-10 21:08] VITALS: BP 121/73
[2017-12-11] MEDS: GLUCERNA 1.2 1000ML LIQUID GT PRN (00:48)
[2017-12-11] MEDS: OMEPRAZOLE 20 MG CAPSULE.DR GT SCH (06:02)
[2017-12-11 08:00] VITALS: BP 128/82
[2017-12-11] MEDS: BACLOFEN 20 MG TABLET GT SCH ×4 (09:22→20:36)
[2017-12-11] MEDS: ACIDOPHILUS/BULGARICUS CHEW TAB GT SCH ×2 (09:22→20:36)
[2017-12-11] MEDS: DOCUSATE SODIUM 100 MG/10 ML LIQUID UDC GT SCH ×2 (09:22→20:35)
[2017-12-11] MEDS: SERTRALINE HCL 50 MG TABLET GT SCH (09:24)
[2017-12-11] MEDS: METOPROLOL TARTRATE 50 MG TABLET GT SCH ×2 (09:24→20:37)
[2017-12-11] MEDS: HYDROGEN PEROXIDE 3% 118 ML BOTTLE TP SCH ×2 (09:24→20:37)
[2017-12-11] MEDS: CALMOSEPTINE 113 GM OINTMENT TP SCH ×2 (09:24→20:37)
[2017-12-11] MEDS: NUTRISOURCE FIBER 4 GM PACKET GT SCH ×2 (09:24→20:37)
[2017-12-11] MEDS: COD LIVER OIL/ZINC OXIDE OINT 113 GM TUBE TP SCH ×2 (09:24→20:37)
[2017-12-11] MEDS: SIMETHICONE 40 MG/0.6 ML, 30ML BOTTLE GT SCH ×3 (09:24→17:01)
--- NOTE | 2017-12-11 14:36 | NUR ---
INTERDISCIPLINARY PLAN OF CARE CONFERENCE was held today. Patient's family was unable to attend. Dr. Heaton and the Interdisciplinary Team reviewed the current plan of care in detail. RN reported on patient's medical condition and current skin treatment. See RN IDT conference notes. No major changes were reported. See also all other disciplines IDT conference notes for additional details.
--- NOTE | 2017-12-11 17:54 | NUR ---
NEW TX ORDERS NOTED FOR BACK RASHES ,CARRIED OUT.
[2017-12-11] MEDS: ASCORBIC ACID 500 MG TABLET PO SCH (20:37)
[2017-12-11 20:58] VITALS: BP 106/61
[2017-12-11] MEDS: TRIAMCINOLONE ACET 0.1% CREAM 15 GM TUBE TP SCH (21:00)
[2017-12-11] MEDS ORDERED: TRIAMCINOLONE ACET 0.1% CREAM 15 GM TUBE TP SCH (21:00)
[2017-12-11] MEDS: NYSTATIN CREAM 30 GM TUBE TP SCH (21:00)
[2017-12-12] MEDS: GLUCERNA 1.2 1000ML LIQUID GT PRN (02:10)
[2017-12-12] MEDS: OMEPRAZOLE 20 MG CAPSULE.DR GT SCH (05:41)
[2017-12-12] MEDS: MULTIVIT, IRON, MIN NO. 8, FA TABLET GT SCH (05:42)
[2017-12-12 08:00] VITALS: BP 120/69
[2017-12-12] MEDS: DOCUSATE SODIUM 100 MG/10 ML LIQUID UDC GT SCH ×2 (09:34→20:41)
[2017-12-12] MEDS: ACIDOPHILUS/BULGARICUS CHEW TAB GT SCH ×2 (09:37→20:41)
[2017-12-12] MEDS: BACLOFEN 20 MG TABLET GT SCH ×4 (09:38→20:41)
[2017-12-12] MEDS: SIMETHICONE 40 MG/0.6 ML, 30ML BOTTLE GT SCH ×3 (09:39→17:00)
[2017-12-12] MEDS: METOPROLOL TARTRATE 50 MG TABLET GT SCH ×2 (09:39→20:41)
[2017-12-12] MEDS: CALMOSEPTINE 113 GM OINTMENT TP SCH ×2 (09:40→20:42)
[2017-12-12] MEDS: TRIAMCINOLONE ACET 0.1% CREAM 15 GM TUBE TP SCH ×2 (09:40→20:42)
[2017-12-12] MEDS: NYSTATIN CREAM 30 GM TUBE TP SCH ×2 (09:40→20:42)
[2017-12-12] MEDS: NUTRISOURCE FIBER 4 GM PACKET GT SCH ×2 (09:40→20:42)
[2017-12-12] MEDS: HYDROGEN PEROXIDE 3% 118 ML BOTTLE TP SCH ×2 (09:40→20:42)
[2017-12-12] MEDS: SERTRALINE HCL 50 MG TABLET GT SCH (09:40)
[2017-12-12] MEDS: COD LIVER OIL/ZINC OXIDE OINT 113 GM TUBE TP SCH ×2 (09:40→20:42)
--- NOTE | 2017-12-12 10:59 | NUR ---
Seen and examined by Dr arellano,no new orders.
[2017-12-12] MEDS: ASCORBIC ACID 500 MG TABLET PO SCH (20:42)
[2017-12-12 20:52] VITALS: BP 124/74
[2017-12-13] MEDS: GLUCERNA 1.2 1000ML LIQUID GT PRN (02:01)
[2017-12-13] MEDS: OMEPRAZOLE 20 MG CAPSULE.DR GT SCH (06:07)
[2017-12-13] MEDS: DOCUSATE SODIUM 100 MG/10 ML LIQUID UDC GT SCH ×2 (08:26→21:50)
[2017-12-13] MEDS: ACIDOPHILUS/BULGARICUS CHEW TAB GT SCH ×2 (08:27→21:50)
[2017-12-13] MEDS: BACLOFEN 20 MG TABLET GT SCH ×4 (08:27→21:50)
[2017-12-13] MEDS: SERTRALINE HCL 50 MG TABLET GT SCH (08:28)
[2017-12-13] MEDS: COD LIVER OIL/ZINC OXIDE OINT 113 GM TUBE TP SCH ×2 (08:28→21:50)
[2017-12-13] MEDS: SIMETHICONE 40 MG/0.6 ML, 30ML BOTTLE GT SCH ×3 (08:28→17:23)
[2017-12-13] MEDS: NUTRISOURCE FIBER 4 GM PACKET GT SCH ×2 (08:28→21:50)
[2017-12-13] MEDS: METOPROLOL TARTRATE 50 MG TABLET GT SCH ×2 (08:28→21:50)
[2017-12-13] MEDS: CALMOSEPTINE 113 GM OINTMENT TP SCH ×2 (08:28→21:50)
[2017-12-13] MEDS: NYSTATIN CREAM 30 GM TUBE TP SCH ×2 (08:29→21:50)
[2017-12-13] MEDS: TRIAMCINOLONE ACET 0.1% CREAM 15 GM TUBE TP SCH ×2 (08:29→21:50)
[2017-12-13] MEDS: HYDROGEN PEROXIDE 3% 118 ML BOTTLE TP SCH ×2 (08:29→21:50)
[2017-12-13] MEDS: KETOCONAZOLE 2% SHAMPOO 120 ML BOTTLE TP SCH (08:29)
--- NOTE | 2017-12-13 14:50 | NUR ---
SEEN BY GLENN MORGAN.
--- NOTE | 2017-12-13 14:55 | NUR ---
SEEN BY GLENN MORGAN.
[2017-12-13 20:00] VITALS: BP 123/83
[2017-12-13] MEDS: ASCORBIC ACID 500 MG TABLET PO SCH (21:50)
[2017-12-14] MEDS: OMEPRAZOLE 20 MG CAPSULE.DR GT SCH (06:49)
[2017-12-14] MEDS: MULTIVIT, IRON, MIN NO. 8, FA TABLET GT SCH (06:49)
[2017-12-14 08:00] VITALS: BP 125/67
[2017-12-14] MEDS: SIMETHICONE 40 MG/0.6 ML, 30ML BOTTLE GT SCH ×3 (08:18→17:25)
[2017-12-14] MEDS: BACLOFEN 20 MG TABLET GT SCH ×4 (08:18→21:10)
[2017-12-14] MEDS: SERTRALINE HCL 50 MG TABLET GT SCH (08:18)
[2017-12-14] MEDS: DOCUSATE SODIUM 100 MG/10 ML LIQUID UDC GT SCH ×2 (08:18→21:10)
[2017-12-14] MEDS: METOPROLOL TARTRATE 50 MG TABLET GT SCH ×2 (08:18→21:10)
[2017-12-14] MEDS: NUTRISOURCE FIBER 4 GM PACKET GT SCH ×2 (08:18→21:10)
[2017-12-14] MEDS: ACIDOPHILUS/BULGARICUS CHEW TAB GT SCH ×2 (08:18→21:10)
[2017-12-14] MEDS: COD LIVER OIL/ZINC OXIDE OINT 113 GM TUBE TP SCH ×2 (08:19→21:11)
[2017-12-14] MEDS: CALMOSEPTINE 113 GM OINTMENT TP SCH ×2 (08:19→21:11)
[2017-12-14] MEDS: NYSTATIN CREAM 30 GM TUBE TP SCH ×2 (08:19→21:11)
[2017-12-14] MEDS: TRIAMCINOLONE ACET 0.1% CREAM 15 GM TUBE TP SCH ×2 (08:19→21:11)
[2017-12-14] MEDS: HYDROGEN PEROXIDE 3% 118 ML BOTTLE TP SCH ×2 (08:19→21:11)
[2017-12-14 20:00] VITALS: BP 110/74
[2017-12-14] MEDS: ASCORBIC ACID 500 MG TABLET PO SCH (21:10)
[2017-12-15] MEDS: GLUCERNA 1.2 1000ML LIQUID GT PRN (02:35)
[2017-12-15] MEDS: OMEPRAZOLE 20 MG CAPSULE.DR GT SCH (05:42)
[2017-12-15] MEDS: DOCUSATE SODIUM 100 MG/10 ML LIQUID UDC GT SCH ×2 (09:03→20:26)
[2017-12-15] MEDS: BACLOFEN 20 MG TABLET GT SCH ×4 (09:04→20:26)
[2017-12-15] MEDS: ACIDOPHILUS/BULGARICUS CHEW TAB GT SCH ×2 (09:04→20:26)
[2017-12-15] MEDS: COD LIVER OIL/ZINC OXIDE OINT 113 GM TUBE TP SCH ×2 (09:05→20:27)
[2017-12-15] MEDS: NYSTATIN CREAM 30 GM TUBE TP SCH ×2 (09:05→20:27)
[2017-12-15] MEDS: TRIAMCINOLONE ACET 0.1% CREAM 15 GM TUBE TP SCH ×2 (09:05→20:27)
[2017-12-15] MEDS: CALMOSEPTINE 113 GM OINTMENT TP SCH ×2 (09:05→20:27)
[2017-12-15] MEDS: SIMETHICONE 40 MG/0.6 ML, 30ML BOTTLE GT SCH ×3 (09:05→17:26)
[2017-12-15] MEDS: SERTRALINE HCL 50 MG TABLET GT SCH (09:05)
[2017-12-15] MEDS: HYDROGEN PEROXIDE 3% 118 ML BOTTLE TP SCH ×2 (09:05→20:27)
[2017-12-15] MEDS: NUTRISOURCE FIBER 4 GM PACKET GT SCH ×2 (09:05→20:27)
[2017-12-15] MEDS: METOPROLOL TARTRATE 50 MG TABLET GT SCH ×2 (09:05→20:27)
[2017-12-15 20:00] VITALS: BP 129/81
[2017-12-15] MEDS: ASCORBIC ACID 500 MG TABLET PO SCH (20:27)
[2017-12-16] MEDS: MULTIVIT, IRON, MIN NO. 8, FA TABLET GT SCH (05:45)
[2017-12-16] MEDS: OMEPRAZOLE 20 MG CAPSULE.DR GT SCH (05:45)
[2017-12-16] MEDS: GLUCERNA 1.2 1000ML LIQUID GT PRN (05:45)
[2017-12-16 08:00] VITALS: BP 13/80
--- NOTE | 2017-12-16 09:00 | NUR ---
SEEN BY GLENN MORGAN.
[2017-12-16] MEDS: HYDROGEN PEROXIDE 3% 118 ML BOTTLE TP SCH ×2 (09:06→21:11)
[2017-12-16] MEDS: SERTRALINE HCL 50 MG TABLET GT SCH (09:06)
[2017-12-16] MEDS: NUTRISOURCE FIBER 4 GM PACKET GT SCH ×2 (09:06→21:10)
[2017-12-16] MEDS: DOCUSATE SODIUM 100 MG/10 ML LIQUID UDC GT SCH ×2 (09:06→21:06)
[2017-12-16] MEDS: COD LIVER OIL/ZINC OXIDE OINT 113 GM TUBE TP SCH ×2 (09:06→21:10)
[2017-12-16] MEDS: BACLOFEN 20 MG TABLET GT SCH ×4 (09:06→21:06)
[2017-12-16] MEDS: SIMETHICONE 40 MG/0.6 ML, 30ML BOTTLE GT SCH ×3 (09:06→17:13)
[2017-12-16] MEDS: CALMOSEPTINE 113 GM OINTMENT TP SCH ×2 (09:06→21:10)
[2017-12-16] MEDS: ACIDOPHILUS/BULGARICUS CHEW TAB GT SCH ×2 (09:06→21:06)
[2017-12-16] MEDS: TRIAMCINOLONE ACET 0.1% CREAM 15 GM TUBE TP SCH ×2 (09:06→21:11)
[2017-12-16] MEDS: NYSTATIN CREAM 30 GM TUBE TP SCH ×2 (09:06→21:11)
[2017-12-16] MEDS: METOPROLOL TARTRATE 50 MG TABLET GT SCH ×2 (09:06→21:10)
[2017-12-16] MEDS: ASCORBIC ACID 500 MG TABLET PO SCH (21:10)
[2017-12-16 22:00] VITALS: BP 107/76
[2017-12-17] MEDS: GLUCERNA 1.2 1000ML LIQUID GT PRN (03:40)
[2017-12-17] MEDS: OMEPRAZOLE 20 MG CAPSULE.DR GT SCH (05:51)
[2017-12-17 08:00] VITALS: BP 117/57
[2017-12-17] MEDS: NYSTATIN CREAM 30 GM TUBE TP SCH ×2 (08:46→21:25)
[2017-12-17] MEDS: METOPROLOL TARTRATE 50 MG TABLET GT SCH ×2 (08:46→21:24)
[2017-12-17] MEDS: DOCUSATE SODIUM 100 MG/10 ML LIQUID UDC GT SCH ×2 (08:46→21:23)
[2017-12-17] MEDS: TRIAMCINOLONE ACET 0.1% CREAM 15 GM TUBE TP SCH ×2 (08:46→21:25)
[2017-12-17] MEDS: SIMETHICONE 40 MG/0.6 ML, 30ML BOTTLE GT SCH ×3 (08:46→16:31)
[2017-12-17] MEDS: CALMOSEPTINE 113 GM OINTMENT TP SCH ×2 (08:46→21:24)
[2017-12-17] MEDS: BACLOFEN 20 MG TABLET GT SCH ×4 (08:46→21:24)
[2017-12-17] MEDS: SERTRALINE HCL 50 MG TABLET GT SCH (08:46)
[2017-12-17] MEDS: COD LIVER OIL/ZINC OXIDE OINT 113 GM TUBE TP SCH ×2 (08:46→21:24)
[2017-12-17] MEDS: KETOCONAZOLE 2% SHAMPOO 120 ML BOTTLE TP SCH (08:46)
[2017-12-17] MEDS: NUTRISOURCE FIBER 4 GM PACKET GT SCH ×2 (08:46→21:24)
[2017-12-17] MEDS: HYDROGEN PEROXIDE 3% 118 ML BOTTLE TP SCH ×2 (08:46→21:25)
[2017-12-17] MEDS: ACIDOPHILUS/BULGARICUS CHEW TAB GT SCH ×2 (08:46→21:24)
--- NOTE | 2017-12-17 13:00 | NUR ---
SEEN BY GLENN MORGAN.
[2017-12-17 20:27] VITALS: BP 114/78
[2017-12-17] MEDS: ASCORBIC ACID 500 MG TABLET PO SCH (21:24)
[2017-12-18] MEDS: OMEPRAZOLE 20 MG CAPSULE.DR GT SCH (05:08)
[2017-12-18] MEDS: GLUCERNA 1.2 1000ML LIQUID GT PRN (05:08)
[2017-12-18] MEDS: MULTIVIT, IRON, MIN NO. 8, FA TABLET GT SCH (06:00)
[2017-12-18 08:00] VITALS: BP 118/78
[2017-12-18] MEDS: TRIAMCINOLONE ACET 0.1% CREAM 15 GM TUBE TP SCH ×2 (09:27→21:29)
[2017-12-18] MEDS: HYDROGEN PEROXIDE 3% 118 ML BOTTLE TP SCH ×2 (09:27→21:28)
[2017-12-18] MEDS: METOPROLOL TARTRATE 50 MG TABLET GT SCH ×2 (09:27→21:27)
[2017-12-18] MEDS: ACIDOPHILUS/BULGARICUS CHEW TAB GT SCH ×2 (09:27→21:25)
[2017-12-18] MEDS: SIMETHICONE 40 MG/0.6 ML, 30ML BOTTLE GT SCH ×3 (09:27→17:54)
[2017-12-18] MEDS: CALMOSEPTINE 113 GM OINTMENT TP SCH ×2 (09:27→21:28)
[2017-12-18] MEDS: SERTRALINE HCL 50 MG TABLET GT SCH (09:27)
[2017-12-18] MEDS: BACLOFEN 20 MG TABLET GT SCH ×4 (09:27→21:26)
[2017-12-18] MEDS: DOCUSATE SODIUM 100 MG/10 ML LIQUID UDC GT SCH ×2 (09:27→21:25)
[2017-12-18] MEDS: COD LIVER OIL/ZINC OXIDE OINT 113 GM TUBE TP SCH ×2 (09:27→21:28)
[2017-12-18] MEDS: NYSTATIN CREAM 30 GM TUBE TP SCH ×2 (09:27→21:30)
[2017-12-18] MEDS: NUTRISOURCE FIBER 4 GM PACKET GT SCH ×2 (09:27→21:27)
--- NOTE | 2017-12-18 18:30 | NUR ---
seen and examined by dr Heaton,no new orders.
[2017-12-18 20:00] VITALS: BP 108/71
[2017-12-18] MEDS: ASCORBIC ACID 500 MG TABLET PO SCH (21:28)
[2017-12-19] MEDS: GLUCERNA 1.2 1000ML LIQUID GT PRN (02:00)
[2017-12-19] MEDS: OMEPRAZOLE 20 MG CAPSULE.DR GT SCH (05:22)
[2017-12-19 08:00] VITALS: BP 120/64
[2017-12-19] MEDS: CALMOSEPTINE 113 GM OINTMENT TP SCH ×2 (08:56→21:30)
[2017-12-19] MEDS: SERTRALINE HCL 50 MG TABLET GT SCH (08:56)
[2017-12-19] MEDS: NUTRISOURCE FIBER 4 GM PACKET GT SCH ×2 (08:56→21:30)
[2017-12-19] MEDS: BACLOFEN 20 MG TABLET GT SCH ×4 (08:56→21:29)
[2017-12-19] MEDS: SIMETHICONE 40 MG/0.6 ML, 30ML BOTTLE GT SCH ×3 (08:56→16:44)
[2017-12-19] MEDS: ACIDOPHILUS/BULGARICUS CHEW TAB GT SCH ×2 (08:56→21:29)
[2017-12-19] MEDS: DOCUSATE SODIUM 100 MG/10 ML LIQUID UDC GT SCH ×2 (08:56→21:29)
[2017-12-19] MEDS: METOPROLOL TARTRATE 50 MG TABLET GT SCH ×2 (08:56→21:30)
[2017-12-19] MEDS: HYDROGEN PEROXIDE 3% 118 ML BOTTLE TP SCH ×2 (08:57→21:30)
[2017-12-19] MEDS: COD LIVER OIL/ZINC OXIDE OINT 113 GM TUBE TP SCH ×2 (08:57→21:30)
[2017-12-19] MEDS: TRIAMCINOLONE ACET 0.1% CREAM 15 GM TUBE TP SCH ×2 (08:57→21:30)
[2017-12-19] MEDS: NYSTATIN CREAM 30 GM TUBE TP SCH ×2 (08:57→21:30)
--- NOTE | 2017-12-19 16:00 | NUR ---
Seen and examined by Wilma copeland,no new orders.
[2017-12-19 20:00] VITALS: BP 108/69
[2017-12-19] MEDS: ASCORBIC ACID 500 MG TABLET PO SCH (21:30)
[2017-12-20] MEDS: GLUCERNA 1.2 1000ML LIQUID GT PRN (02:00)
[2017-12-20] MEDS: MULTIVIT, IRON, MIN NO. 8, FA TABLET GT SCH (05:43)
[2017-12-20] MEDS: OMEPRAZOLE 20 MG CAPSULE.DR GT SCH (05:43)
[2017-12-20 08:00] VITALS: BP 120/72
[2017-12-20] MEDS: DOCUSATE SODIUM 100 MG/10 ML LIQUID UDC GT SCH ×2 (08:08→21:28)
[2017-12-20] MEDS: ACIDOPHILUS/BULGARICUS CHEW TAB GT SCH ×2 (08:08→21:28)
[2017-12-20] MEDS: SIMETHICONE 40 MG/0.6 ML, 30ML BOTTLE GT SCH ×3 (08:09→16:10)
[2017-12-20] MEDS: CALMOSEPTINE 113 GM OINTMENT TP SCH ×2 (08:09→21:30)
[2017-12-20] MEDS: METOPROLOL TARTRATE 50 MG TABLET GT SCH ×2 (08:09→21:30)
[2017-12-20] MEDS: NUTRISOURCE FIBER 4 GM PACKET GT SCH ×2 (08:09→21:30)
[2017-12-20] MEDS: SERTRALINE HCL 50 MG TABLET GT SCH (08:09)
[2017-12-20] MEDS: BACLOFEN 20 MG TABLET GT SCH ×4 (08:09→21:29)
[2017-12-20] MEDS: HYDROGEN PEROXIDE 3% 118 ML BOTTLE TP SCH ×2 (08:10→21:30)
[2017-12-20] MEDS: KETOCONAZOLE 2% SHAMPOO 120 ML BOTTLE TP SCH (08:10)
[2017-12-20] MEDS: COD LIVER OIL/ZINC OXIDE OINT 113 GM TUBE TP SCH ×2 (08:10→21:30)
[2017-12-20] MEDS: NYSTATIN CREAM 30 GM TUBE TP SCH ×2 (08:10→21:30)
[2017-12-20] MEDS: TRIAMCINOLONE ACET 0.1% CREAM 15 GM TUBE TP SCH ×2 (08:10→21:30)
[2017-12-20 20:00] VITALS: BP 121/75
[2017-12-20] MEDS: ASCORBIC ACID 500 MG TABLET PO SCH (21:30)
[2017-12-21] MEDS: GLUCERNA 1.2 1000ML LIQUID GT PRN (00:30)
[2017-12-21] MEDS: OMEPRAZOLE 20 MG CAPSULE.DR GT SCH (06:30)
[2017-12-21 08:06] VITALS: BP 117/89
[2017-12-21] MEDS: METOPROLOL TARTRATE 50 MG TABLET GT SCH ×2 (08:11→21:29)
[2017-12-21] MEDS: BACLOFEN 20 MG TABLET GT SCH ×4 (08:11→21:28)
[2017-12-21] MEDS: SERTRALINE HCL 50 MG TABLET GT SCH (08:11)
[2017-12-21] MEDS: ACIDOPHILUS/BULGARICUS CHEW TAB GT SCH ×2 (08:11→21:28)
[2017-12-21] MEDS: SIMETHICONE 40 MG/0.6 ML, 30ML BOTTLE GT SCH ×3 (08:11→16:25)
[2017-12-21] MEDS: DOCUSATE SODIUM 100 MG/10 ML LIQUID UDC GT SCH ×2 (08:11→21:28)
[2017-12-21] MEDS: NUTRISOURCE FIBER 4 GM PACKET GT SCH ×2 (08:11→21:29)
[2017-12-21] MEDS: CALMOSEPTINE 113 GM OINTMENT TP SCH ×2 (08:11→21:29)
[2017-12-21] MEDS: COD LIVER OIL/ZINC OXIDE OINT 113 GM TUBE TP SCH ×2 (08:12→21:29)
[2017-12-21] MEDS: NYSTATIN CREAM 30 GM TUBE TP SCH ×2 (08:12→21:30)
[2017-12-21] MEDS: HYDROGEN PEROXIDE 3% 118 ML BOTTLE TP SCH ×2 (08:12→21:30)
[2017-12-21] MEDS: TRIAMCINOLONE ACET 0.1% CREAM 15 GM TUBE TP SCH ×2 (08:12→21:30)
[2017-12-21 20:25] VITALS: BP 135/86
[2017-12-21] MEDS: ASCORBIC ACID 500 MG TABLET PO SCH (21:29)
[2017-12-22] MEDS: GLUCERNA 1.2 1000ML LIQUID GT PRN (01:55)
[2017-12-22] MEDS: OMEPRAZOLE 20 MG CAPSULE.DR GT SCH (05:33)
[2017-12-22] MEDS: MULTIVIT, IRON, MIN NO. 8, FA TABLET GT SCH (05:33)
[2017-12-22] MEDS: METOPROLOL TARTRATE 50 MG TABLET GT SCH ×2 (08:47→21:58)
[2017-12-22] MEDS: CALMOSEPTINE 113 GM OINTMENT TP SCH ×2 (08:47→21:58)
[2017-12-22] MEDS: SERTRALINE HCL 50 MG TABLET GT SCH (08:47)
[2017-12-22] MEDS: COD LIVER OIL/ZINC OXIDE OINT 113 GM TUBE TP SCH ×2 (08:47→21:58)
[2017-12-22] MEDS: SIMETHICONE 40 MG/0.6 ML, 30ML BOTTLE GT SCH ×3 (08:47→17:00)
[2017-12-22] MEDS: HYDROGEN PEROXIDE 3% 118 ML BOTTLE TP SCH ×2 (08:47→21:59)
[2017-12-22] MEDS: NUTRISOURCE FIBER 4 GM PACKET GT SCH ×2 (08:47→21:58)
[2017-12-22] MEDS: BACLOFEN 20 MG TABLET GT SCH ×4 (08:48→21:58)
[2017-12-22] MEDS: TRIAMCINOLONE ACET 0.1% CREAM 15 GM TUBE TP SCH ×2 (08:48→21:59)
[2017-12-22] MEDS: DOCUSATE SODIUM 100 MG/10 ML LIQUID UDC GT SCH ×2 (08:48→21:58)
[2017-12-22] MEDS: ACIDOPHILUS/BULGARICUS CHEW TAB GT SCH ×2 (08:48→21:58)
[2017-12-22] MEDS: NYSTATIN CREAM 30 GM TUBE TP SCH ×2 (08:48→21:59)
[2017-12-22 12:06] VITALS: BP 123/82
[2017-12-22 20:11] VITALS: BP 137/87
[2017-12-22] MEDS: ASCORBIC ACID 500 MG TABLET PO SCH (21:58)
[2017-12-23] MEDS: OMEPRAZOLE 20 MG CAPSULE.DR GT SCH (05:13)
[2017-12-23 08:00] VITALS: BP 130/85
[2017-12-23] MEDS: DOCUSATE SODIUM 100 MG/10 ML LIQUID UDC GT SCH ×2 (08:42→21:23)
[2017-12-23] MEDS: METOPROLOL TARTRATE 50 MG TABLET GT SCH ×2 (08:42→21:24)
[2017-12-23] MEDS: NUTRISOURCE FIBER 4 GM PACKET GT SCH ×2 (08:42→21:24)
[2017-12-23] MEDS: SERTRALINE HCL 50 MG TABLET GT SCH (08:42)
[2017-12-23] MEDS: CALMOSEPTINE 113 GM OINTMENT TP SCH ×2 (08:42→21:24)
[2017-12-23] MEDS: SIMETHICONE 40 MG/0.6 ML, 30ML BOTTLE GT SCH ×3 (08:42→17:08)
[2017-12-23] MEDS: ACIDOPHILUS/BULGARICUS CHEW TAB GT SCH ×2 (08:42→21:23)
[2017-12-23] MEDS: BACLOFEN 20 MG TABLET GT SCH ×4 (08:42→21:23)
[2017-12-23] MEDS: COD LIVER OIL/ZINC OXIDE OINT 113 GM TUBE TP SCH ×2 (08:43→21:24)
[2017-12-23] MEDS: HYDROGEN PEROXIDE 3% 118 ML BOTTLE TP SCH ×2 (08:47→21:24)
[2017-12-23] MEDS: TRIAMCINOLONE ACET 0.1% CREAM 15 GM TUBE TP SCH ×2 (08:47→21:24)
[2017-12-23] MEDS: NYSTATIN CREAM 30 GM TUBE TP SCH ×2 (08:48→21:24)
[2017-12-23 20:27] VITALS: BP 123/73
[2017-12-23] MEDS: ASCORBIC ACID 500 MG TABLET PO SCH (21:24)
[2017-12-24] MEDS: GLUCERNA 1.2 1000ML LIQUID GT PRN (00:03)
[2017-12-24] MEDS: OMEPRAZOLE 20 MG CAPSULE.DR GT SCH (05:44)
[2017-12-24] MEDS: MULTIVIT, IRON, MIN NO. 8, FA TABLET GT SCH (05:44)
[2017-12-24 08:00] VITALS: BP 110/79
[2017-12-24] MEDS: DOCUSATE SODIUM 100 MG/10 ML LIQUID UDC GT SCH ×2 (08:27→21:27)
[2017-12-24] MEDS: ACIDOPHILUS/BULGARICUS CHEW TAB GT SCH ×2 (08:27→21:27)
[2017-12-24] MEDS: BACLOFEN 20 MG TABLET GT SCH ×4 (08:27→21:27)
[2017-12-24] MEDS: METOPROLOL TARTRATE 50 MG TABLET GT SCH ×2 (08:28→21:27)
[2017-12-24] MEDS: KETOCONAZOLE 2% SHAMPOO 120 ML BOTTLE TP SCH (08:28)
[2017-12-24] MEDS: NUTRISOURCE FIBER 4 GM PACKET GT SCH ×2 (08:28→21:27)
[2017-12-24] MEDS: CALMOSEPTINE 113 GM OINTMENT TP SCH ×2 (08:28→21:28)
[2017-12-24] MEDS: COD LIVER OIL/ZINC OXIDE OINT 113 GM TUBE TP SCH ×2 (08:28→21:28)
[2017-12-24] MEDS: HYDROGEN PEROXIDE 3% 118 ML BOTTLE TP SCH ×2 (08:28→21:28)
[2017-12-24] MEDS: SIMETHICONE 40 MG/0.6 ML, 30ML BOTTLE GT SCH ×3 (08:28→16:24)
[2017-12-24] MEDS: TRIAMCINOLONE ACET 0.1% CREAM 15 GM TUBE TP SCH ×2 (08:28→21:28)
[2017-12-24] MEDS: NYSTATIN CREAM 30 GM TUBE TP SCH ×2 (08:28→21:28)
[2017-12-24] MEDS: SERTRALINE HCL 50 MG TABLET GT SCH (08:28)
[2017-12-24 20:40] VITALS: BP 140/89
[2017-12-24] MEDS: ASCORBIC ACID 500 MG TABLET PO SCH (21:27)
[2017-12-25] MEDS: GLUCERNA 1.2 1000ML LIQUID GT PRN ×2 (00:57→23:53)
[2017-12-25] MEDS: OMEPRAZOLE 20 MG CAPSULE.DR GT SCH (05:25)
[2017-12-25 08:00] VITALS: BP 118/83
[2017-12-25] MEDS: BACLOFEN 20 MG TABLET GT SCH ×4 (09:02→21:46)
[2017-12-25] MEDS: ACIDOPHILUS/BULGARICUS CHEW TAB GT SCH ×2 (09:02→21:46)
[2017-12-25] MEDS: DOCUSATE SODIUM 100 MG/10 ML LIQUID UDC GT SCH ×2 (09:02→21:46)
[2017-12-25] MEDS: METOPROLOL TARTRATE 50 MG TABLET GT SCH ×2 (09:03→21:46)
[2017-12-25] MEDS: SIMETHICONE 40 MG/0.6 ML, 30ML BOTTLE GT SCH ×3 (09:03→17:08)
[2017-12-25] MEDS: NYSTATIN CREAM 30 GM TUBE TP SCH ×2 (09:04→21:49)
[2017-12-25] MEDS: CALMOSEPTINE 113 GM OINTMENT TP SCH ×2 (09:04→21:48)
[2017-12-25] MEDS: COD LIVER OIL/ZINC OXIDE OINT 113 GM TUBE TP SCH ×2 (09:04→21:48)
[2017-12-25] MEDS: SERTRALINE HCL 50 MG TABLET GT SCH (09:04)
[2017-12-25] MEDS: NUTRISOURCE FIBER 4 GM PACKET GT SCH ×2 (09:04→21:46)
[2017-12-25] MEDS: TRIAMCINOLONE ACET 0.1% CREAM 15 GM TUBE TP SCH ×2 (09:04→21:48)
[2017-12-25] MEDS: HYDROGEN PEROXIDE 3% 118 ML BOTTLE TP SCH ×2 (09:04→21:48)
[2017-12-25 20:30] VITALS: BP 124/80
[2017-12-25] MEDS: ASCORBIC ACID 500 MG TABLET PO SCH (21:46)
[2017-12-26] MEDS: MULTIVIT, IRON, MIN NO. 8, FA TABLET GT SCH (05:52)
[2017-12-26] MEDS: OMEPRAZOLE 20 MG CAPSULE.DR GT SCH (05:52)
[2017-12-26 08:00] VITALS: BP 122/84
[2017-12-26] MEDS: ACIDOPHILUS/BULGARICUS CHEW TAB GT SCH ×2 (08:03→21:20)
[2017-12-26] MEDS: DOCUSATE SODIUM 100 MG/10 ML LIQUID UDC GT SCH ×2 (08:03→21:20)
[2017-12-26] MEDS: NUTRISOURCE FIBER 4 GM PACKET GT SCH ×2 (08:04→21:22)
[2017-12-26] MEDS: SIMETHICONE 40 MG/0.6 ML, 30ML BOTTLE GT SCH ×3 (08:04→16:01)
[2017-12-26] MEDS: TRIAMCINOLONE ACET 0.1% CREAM 15 GM TUBE TP SCH ×2 (08:04→21:23)
[2017-12-26] MEDS: CALMOSEPTINE 113 GM OINTMENT TP SCH ×2 (08:04→21:22)
[2017-12-26] MEDS: HYDROGEN PEROXIDE 3% 118 ML BOTTLE TP SCH ×2 (08:04→21:23)
[2017-12-26] MEDS: BACLOFEN 20 MG TABLET GT SCH ×4 (08:04→21:21)
[2017-12-26] MEDS: SERTRALINE HCL 50 MG TABLET GT SCH (08:04)
[2017-12-26] MEDS: METOPROLOL TARTRATE 50 MG TABLET GT SCH ×2 (08:04→21:22)
[2017-12-26] MEDS: NYSTATIN CREAM 30 GM TUBE TP SCH ×2 (08:04→21:23)
[2017-12-26] MEDS: COD LIVER OIL/ZINC OXIDE OINT 113 GM TUBE TP SCH ×2 (08:04→21:23)
[2017-12-26 20:00] VITALS: BP 112/78
[2017-12-26] MEDS: ASCORBIC ACID 500 MG TABLET PO SCH (21:22)
[2017-12-26] MEDS: GLUCERNA 1.2 1000ML LIQUID GT PRN (21:30)
[2017-12-27] MEDS: OMEPRAZOLE 20 MG CAPSULE.DR GT SCH (05:09)
[2017-12-27 08:00] VITALS: BP 118/64
[2017-12-27] MEDS: DOCUSATE SODIUM 100 MG/10 ML LIQUID UDC GT SCH ×2 (08:21→21:29)
[2017-12-27] MEDS: BACLOFEN 20 MG TABLET GT SCH ×4 (08:21→21:29)
[2017-12-27] MEDS: ACIDOPHILUS/BULGARICUS CHEW TAB GT SCH ×2 (08:21→21:29)
[2017-12-27] MEDS: CALMOSEPTINE 113 GM OINTMENT TP SCH ×2 (08:24→21:30)
[2017-12-27] MEDS: METOPROLOL TARTRATE 50 MG TABLET GT SCH ×2 (08:24→21:30)
[2017-12-27] MEDS: NUTRISOURCE FIBER 4 GM PACKET GT SCH ×2 (08:24→21:30)
[2017-12-27] MEDS: SIMETHICONE 40 MG/0.6 ML, 30ML BOTTLE GT SCH ×3 (08:24→17:39)
[2017-12-27] MEDS: SERTRALINE HCL 50 MG TABLET GT SCH (08:24)
[2017-12-27] MEDS: COD LIVER OIL/ZINC OXIDE OINT 113 GM TUBE TP SCH ×2 (08:25→21:30)
[2017-12-27] MEDS: NYSTATIN CREAM 30 GM TUBE TP SCH ×2 (08:25→21:00)
[2017-12-27] MEDS: HYDROGEN PEROXIDE 3% 118 ML BOTTLE TP SCH ×2 (08:25→21:31)
[2017-12-27] MEDS: KETOCONAZOLE 2% SHAMPOO 120 ML BOTTLE TP SCH (08:25)
[2017-12-27] MEDS: TRIAMCINOLONE ACET 0.1% CREAM 15 GM TUBE TP SCH ×2 (08:25→21:00)
[2017-12-27 21:04] VITALS: BP 132/80
[2017-12-27] MEDS: ASCORBIC ACID 500 MG TABLET PO SCH (21:30)
[2017-12-28] MEDS: GLUCERNA 1.2 1000ML LIQUID GT PRN ×2 (01:32→23:15)
[2017-12-28] MEDS: OMEPRAZOLE 20 MG CAPSULE.DR GT SCH (05:21)
[2017-12-28] MEDS: MULTIVIT, IRON, MIN NO. 8, FA TABLET GT SCH (05:30)
[2017-12-28] MEDS: DOCUSATE SODIUM 100 MG/10 ML LIQUID UDC GT SCH ×2 (09:06→20:34)
[2017-12-28] MEDS: BACLOFEN 20 MG TABLET GT SCH ×4 (09:08→20:34)
[2017-12-28] MEDS: ACIDOPHILUS/BULGARICUS CHEW TAB GT SCH ×2 (09:08→20:34)
[2017-12-28] MEDS: METOPROLOL TARTRATE 50 MG TABLET GT SCH ×2 (09:09→20:34)
[2017-12-28] MEDS: SIMETHICONE 40 MG/0.6 ML, 30ML BOTTLE GT SCH ×3 (09:09→17:15)
[2017-12-28] MEDS: NUTRISOURCE FIBER 4 GM PACKET GT SCH ×2 (09:09→20:34)
[2017-12-28] MEDS: TRIAMCINOLONE ACET 0.1% CREAM 15 GM TUBE TP SCH ×2 (09:11→20:34)
[2017-12-28] MEDS: SERTRALINE HCL 50 MG TABLET GT SCH (09:11)
[2017-12-28] MEDS: CALMOSEPTINE 113 GM OINTMENT TP SCH ×2 (09:11→20:34)
[2017-12-28] MEDS: NYSTATIN CREAM 30 GM TUBE TP SCH ×2 (09:11→20:34)
[2017-12-28] MEDS: COD LIVER OIL/ZINC OXIDE OINT 113 GM TUBE TP SCH ×2 (09:11→20:34)
[2017-12-28] MEDS: HYDROGEN PEROXIDE 3% 118 ML BOTTLE TP SCH ×2 (09:11→20:34)
[2017-12-28 17:01] VITALS: BP 116/66
[2017-12-28] MEDS: ASCORBIC ACID 500 MG TABLET PO SCH (20:34)
[2017-12-28] MEDS: ACETAMINOPHEN 650 MG/20 ML UDC- SA PATIENTS-PAIN ONLY GT PRN (20:35)
[2017-12-28 22:34] VITALS: BP 111/79
[2017-12-29] MEDS: OMEPRAZOLE 20 MG CAPSULE.DR GT SCH (05:31)
[2017-12-29 08:00] VITALS: BP 125/78
[2017-12-29] MEDS: COD LIVER OIL/ZINC OXIDE OINT 113 GM TUBE TP SCH ×2 (09:00→21:07)
[2017-12-29] MEDS: SERTRALINE HCL 50 MG TABLET GT SCH (09:00)
[2017-12-29] MEDS: METOPROLOL TARTRATE 50 MG TABLET GT SCH ×2 (09:00→21:06)
[2017-12-29] MEDS: TRIAMCINOLONE ACET 0.1% CREAM 15 GM TUBE TP SCH ×2 (09:00→21:07)
[2017-12-29] MEDS: BACLOFEN 20 MG TABLET GT SCH ×4 (09:00→20:57)
[2017-12-29] MEDS: NUTRISOURCE FIBER 4 GM PACKET GT SCH ×2 (09:00→21:06)
[2017-12-29] MEDS: NYSTATIN CREAM 30 GM TUBE TP SCH ×2 (09:00→21:07)
[2017-12-29] MEDS: HYDROGEN PEROXIDE 3% 118 ML BOTTLE TP SCH ×2 (09:00→21:07)
[2017-12-29] MEDS: ACIDOPHILUS/BULGARICUS CHEW TAB GT SCH ×2 (09:00→20:57)
[2017-12-29] MEDS: DOCUSATE SODIUM 100 MG/10 ML LIQUID UDC GT SCH ×2 (09:00→20:57)
[2017-12-29] MEDS: SIMETHICONE 40 MG/0.6 ML, 30ML BOTTLE GT SCH ×3 (09:00→17:40)
[2017-12-29] MEDS: CALMOSEPTINE 113 GM OINTMENT TP SCH ×2 (09:00→21:07)
--- NOTE | 2017-12-29 17:00 | NUR ---
SEEN BY DR. COUCH(PODIATRIST0 AND WITH NNO.
[2017-12-29] MEDS: ASCORBIC ACID 500 MG TABLET PO SCH (21:06)
[2017-12-29] MEDS: GLUCERNA 1.2 1000ML LIQUID GT PRN (22:31)
[2017-12-29 23:05] VITALS: BP 123/82
[2017-12-30] MEDS: OMEPRAZOLE 20 MG CAPSULE.DR GT SCH (05:53)
[2017-12-30] MEDS: MULTIVIT, IRON, MIN NO. 8, FA TABLET GT SCH (05:53)
[2017-12-30 08:00] VITALS: BP 112/71
[2017-12-30] MEDS: DOCUSATE SODIUM 100 MG/10 ML LIQUID UDC GT SCH ×2 (08:02→20:52)
[2017-12-30] MEDS: ACIDOPHILUS/BULGARICUS CHEW TAB GT SCH ×2 (08:02→20:52)
[2017-12-30] MEDS: BACLOFEN 20 MG TABLET GT SCH ×4 (08:03→20:53)
[2017-12-30] MEDS: METOPROLOL TARTRATE 50 MG TABLET GT SCH ×2 (08:05→20:53)
[2017-12-30] MEDS: NUTRISOURCE FIBER 4 GM PACKET GT SCH ×2 (08:06→20:53)
[2017-12-30] MEDS: SERTRALINE HCL 50 MG TABLET GT SCH (08:06)
[2017-12-30] MEDS: SIMETHICONE 40 MG/0.6 ML, 30ML BOTTLE GT SCH ×3 (08:06→16:13)
[2017-12-30] MEDS: CALMOSEPTINE 113 GM OINTMENT TP SCH ×2 (08:07→20:53)
[2017-12-30] MEDS: NYSTATIN CREAM 30 GM TUBE TP SCH ×2 (08:08→20:53)
[2017-12-30] MEDS: TRIAMCINOLONE ACET 0.1% CREAM 15 GM TUBE TP SCH ×2 (08:08→20:53)
[2017-12-30] MEDS: COD LIVER OIL/ZINC OXIDE OINT 113 GM TUBE TP SCH (08:08)
[2017-12-30] MEDS: HYDROGEN PEROXIDE 3% 118 ML BOTTLE TP SCH ×2 (08:08→20:53)
[2017-12-30] MEDS: MEDROXYPROGESTERONE ACET IM SCH (09:00)
--- NOTE | 2017-12-30 12:24 | NUR ---
SEEN BY GLENN MORGAN.
[2017-12-30] MEDS: ASCORBIC ACID 500 MG TABLET PO SCH (20:53)
[2017-12-30 22:00] VITALS: BP 115/73
[2017-12-30] MEDS: GLUCERNA 1.2 1000ML LIQUID GT PRN (23:14)
[2017-12-31] MEDS: OMEPRAZOLE 20 MG CAPSULE.DR GT SCH (06:01)
[2017-12-31] MEDS: DOCUSATE SODIUM 100 MG/10 ML LIQUID UDC GT SCH ×2 (08:12→21:32)
[2017-12-31] MEDS: ACIDOPHILUS/BULGARICUS CHEW TAB GT SCH ×2 (08:12→21:32)
[2017-12-31] MEDS: SIMETHICONE 40 MG/0.6 ML, 30ML BOTTLE GT SCH ×3 (08:13→17:30)
[2017-12-31] MEDS: METOPROLOL TARTRATE 50 MG TABLET GT SCH ×2 (08:13→21:32)
[2017-12-31] MEDS: BACLOFEN 20 MG TABLET GT SCH ×4 (08:13→21:32)
[2017-12-31] MEDS: TRIAMCINOLONE ACET 0.1% CREAM 15 GM TUBE TP SCH ×2 (08:14→21:33)
[2017-12-31] MEDS: NYSTATIN CREAM 30 GM TUBE TP SCH ×2 (08:14→21:33)
[2017-12-31] MEDS: SERTRALINE HCL 50 MG TABLET GT SCH (08:14)
[2017-12-31] MEDS: KETOCONAZOLE 2% SHAMPOO 120 ML BOTTLE TP SCH (08:14)
[2017-12-31] MEDS: NUTRISOURCE FIBER 4 GM PACKET GT SCH ×2 (08:14→21:32)
[2017-12-31] MEDS: CALMOSEPTINE 113 GM OINTMENT TP SCH ×2 (08:14→21:33)
[2017-12-31] MEDS: HYDROGEN PEROXIDE 3% 118 ML BOTTLE TP SCH ×2 (08:14→21:33)
[2017-12-31 11:21] VITALS: BP 109/67
[2017-12-31 20:00] VITALS: BP 133/73
[2017-12-31] MEDS: ASCORBIC ACID 500 MG TABLET PO SCH (21:32)
[2017-12-31] MEDS: GLUCERNA 1.2 1000ML LIQUID GT PRN (23:49)
[2018-01-01] MEDS: OMEPRAZOLE 20 MG CAPSULE.DR GT SCH (05:32)
[2018-01-01] MEDS: MULTIVIT, IRON, MIN NO. 8, FA TABLET GT SCH (05:32)
[2018-01-01 08:07] VITALS: BP 144/90
[2018-01-01] MEDS: CALMOSEPTINE 113 GM OINTMENT TP SCH ×2 (09:55→21:22)
[2018-01-01] MEDS: METOPROLOL TARTRATE 50 MG TABLET GT SCH ×2 (09:55→21:21)
[2018-01-01] MEDS: SIMETHICONE 40 MG/0.6 ML, 30ML BOTTLE GT SCH ×3 (09:55→17:00)
[2018-01-01] MEDS: NUTRISOURCE FIBER 4 GM PACKET GT SCH ×2 (09:55→21:22)
[2018-01-01] MEDS: BACLOFEN 20 MG TABLET GT SCH ×4 (09:55→21:21)
[2018-01-01] MEDS: ACIDOPHILUS/BULGARICUS CHEW TAB GT SCH ×2 (09:55→21:21)
[2018-01-01] MEDS: DOCUSATE SODIUM 100 MG/10 ML LIQUID UDC GT SCH ×2 (09:55→21:21)
[2018-01-01] MEDS: SERTRALINE HCL 50 MG TABLET GT SCH (09:55)
[2018-01-01] MEDS: TRIAMCINOLONE ACET 0.1% CREAM 15 GM TUBE TP SCH (09:56)
[2018-01-01] MEDS: HYDROGEN PEROXIDE 3% 118 ML BOTTLE TP SCH ×2 (09:56→21:22)
[2018-01-01] MEDS: NYSTATIN CREAM 30 GM TUBE TP SCH (09:56)
--- NOTE | 2018-01-01 14:30 | NUR ---
Seen and examined by Wilma Rodriguez,no new orders noted.
[2018-01-01 20:00] VITALS: BP 135/88
[2018-01-01] MEDS: ASCORBIC ACID 500 MG TABLET PO SCH (21:22)
[2018-01-02] MEDS: GLUCERNA 1.2 1000ML LIQUID GT PRN ×2 (00:10→20:50)
[2018-01-02] MEDS: OMEPRAZOLE 20 MG CAPSULE.DR GT SCH (05:57)
[2018-01-02 08:07] VITALS: BP 112/86
[2018-01-02] MEDS: DOCUSATE SODIUM 100 MG/10 ML LIQUID UDC GT SCH ×2 (09:00→20:49)
[2018-01-02] MEDS: HYDROGEN PEROXIDE 3% 118 ML BOTTLE TP SCH ×2 (09:00→20:50)
[2018-01-02] MEDS: CALMOSEPTINE 113 GM OINTMENT TP SCH ×2 (09:00→20:50)
[2018-01-02] MEDS: SERTRALINE HCL 50 MG TABLET GT SCH (09:00)
[2018-01-02] MEDS: SIMETHICONE 40 MG/0.6 ML, 30ML BOTTLE GT SCH ×3 (09:00→17:00)
[2018-01-02] MEDS: ACIDOPHILUS/BULGARICUS CHEW TAB GT SCH ×2 (09:00→20:49)
[2018-01-02] MEDS: BACLOFEN 20 MG TABLET GT SCH ×4 (09:00→20:49)
[2018-01-02] MEDS: NUTRISOURCE FIBER 4 GM PACKET GT SCH ×2 (09:00→20:50)
[2018-01-02] MEDS: METOPROLOL TARTRATE 50 MG TABLET GT SCH ×2 (09:00→20:50)
--- NOTE | 2018-01-02 10:30 | NUR ---
Seen and examined by Dr Heaton,no new orders noted.
[2018-01-02 20:00] VITALS: BP 109/66
[2018-01-02] MEDS: ASCORBIC ACID 500 MG TABLET PO SCH (20:50)
[2018-01-03] MEDS: OMEPRAZOLE 20 MG CAPSULE.DR GT SCH (05:47)
[2018-01-03] MEDS: MULTIVIT, IRON, MIN NO. 8, FA TABLET GT SCH (05:47)
[2018-01-03] MEDS: ACIDOPHILUS/BULGARICUS CHEW TAB GT SCH ×2 (08:25→20:16)
[2018-01-03] MEDS: DOCUSATE SODIUM 100 MG/10 ML LIQUID UDC GT SCH ×2 (08:25→20:16)
[2018-01-03] MEDS: METOPROLOL TARTRATE 50 MG TABLET GT SCH ×2 (08:25→20:17)
[2018-01-03] MEDS: BACLOFEN 20 MG TABLET GT SCH ×4 (08:25→20:16)
[2018-01-03] MEDS: NUTRISOURCE FIBER 4 GM PACKET GT SCH ×2 (08:26→20:17)
[2018-01-03] MEDS: SIMETHICONE 40 MG/0.6 ML, 30ML BOTTLE GT SCH ×3 (08:26→17:41)
[2018-01-03] MEDS: SERTRALINE HCL 50 MG TABLET GT SCH (08:26)
[2018-01-03] MEDS: HYDROGEN PEROXIDE 3% 118 ML BOTTLE TP SCH ×2 (08:26→20:17)
[2018-01-03] MEDS: KETOCONAZOLE 2% SHAMPOO 120 ML BOTTLE TP SCH (08:26)
[2018-01-03] MEDS: CALMOSEPTINE 113 GM OINTMENT TP SCH ×2 (08:26→20:17)
[2018-01-03 12:00] VITALS: BP 130/69
--- NOTE | 2018-01-03 12:15 | NUR ---
Seen and examined by Dalia Rodriguez,no new orders noted.
[2018-01-03] MEDS: ASCORBIC ACID 500 MG TABLET PO SCH (20:17)
[2018-01-03] MEDS: GLUCERNA 1.2 1000ML LIQUID GT PRN (20:19)
[2018-01-03 20:38] VITALS: BP 113/76
[2018-01-04] MEDS: OMEPRAZOLE 20 MG CAPSULE.DR GT SCH (05:25)
[2018-01-04] MEDS: ACIDOPHILUS/BULGARICUS CHEW TAB GT SCH ×2 (08:02→21:00)
[2018-01-04] MEDS: DOCUSATE SODIUM 100 MG/10 ML LIQUID UDC GT SCH ×2 (08:02→21:00)
[2018-01-04] MEDS: BACLOFEN 20 MG TABLET GT SCH ×4 (08:02→21:00)
[2018-01-04] MEDS: METOPROLOL TARTRATE 50 MG TABLET GT SCH ×2 (08:03→21:01)
[2018-01-04] MEDS: CALMOSEPTINE 113 GM OINTMENT TP SCH ×2 (08:03→21:01)
[2018-01-04] MEDS: SERTRALINE HCL 50 MG TABLET GT SCH (08:03)
[2018-01-04] MEDS: SIMETHICONE 40 MG/0.6 ML, 30ML BOTTLE GT SCH ×3 (08:03→17:04)
[2018-01-04] MEDS: HYDROGEN PEROXIDE 3% 118 ML BOTTLE TP SCH ×2 (08:03→21:01)
[2018-01-04] MEDS: NUTRISOURCE FIBER 4 GM PACKET GT SCH ×2 (08:03→21:01)
[2018-01-04 11:23] VITALS: BP 128/76
[2018-01-04] MEDS: GLUCERNA 1.2 1000ML LIQUID GT PRN (18:23)
[2018-01-04 20:24] VITALS: BP 131/87
[2018-01-04] MEDS: ASCORBIC ACID 500 MG TABLET PO SCH (21:01)
[2018-01-05] MEDS: OMEPRAZOLE 20 MG CAPSULE.DR GT SCH (05:45)
[2018-01-05] MEDS: MULTIVIT, IRON, MIN NO. 8, FA TABLET GT SCH (05:45)
[2018-01-05] MEDS: ACIDOPHILUS/BULGARICUS CHEW TAB GT SCH ×2 (09:47→21:17)
[2018-01-05] MEDS: DOCUSATE SODIUM 100 MG/10 ML LIQUID UDC GT SCH ×2 (09:47→21:17)
[2018-01-05] MEDS: SIMETHICONE 40 MG/0.6 ML, 30ML BOTTLE GT SCH ×3 (09:48→16:50)
[2018-01-05] MEDS: BACLOFEN 20 MG TABLET GT SCH ×4 (09:48→21:17)
[2018-01-05] MEDS: SERTRALINE HCL 50 MG TABLET GT SCH (09:49)
[2018-01-05] MEDS: HYDROGEN PEROXIDE 3% 118 ML BOTTLE TP SCH ×2 (09:49→21:17)
[2018-01-05] MEDS: NUTRISOURCE FIBER 4 GM PACKET GT SCH ×2 (09:49→21:17)
[2018-01-05] MEDS: CALMOSEPTINE 113 GM OINTMENT TP SCH ×2 (09:49→21:17)
[2018-01-05] MEDS: METOPROLOL TARTRATE 50 MG TABLET GT SCH ×2 (10:00→21:17)
[2018-01-05 11:28] VITALS: BP 123/68
[2018-01-05] MEDS: GLUCERNA 1.2 1000ML LIQUID GT PRN (17:05)
[2018-01-05 20:25] VITALS: BP 103/70
[2018-01-05] MEDS: ASCORBIC ACID 500 MG TABLET PO SCH (21:17)
[2018-01-06] MEDS: OMEPRAZOLE 20 MG CAPSULE.DR GT SCH (06:47)
[2018-01-06 08:05] VITALS: BP 113/70
[2018-01-06] MEDS: CALMOSEPTINE 113 GM OINTMENT TP SCH ×2 (08:45→21:58)
[2018-01-06] MEDS: BACLOFEN 20 MG TABLET GT SCH ×4 (08:45→21:57)
[2018-01-06] MEDS: SERTRALINE HCL 50 MG TABLET GT SCH (08:45)
[2018-01-06] MEDS: SIMETHICONE 40 MG/0.6 ML, 30ML BOTTLE GT SCH ×3 (08:45→17:08)
[2018-01-06] MEDS: METOPROLOL TARTRATE 50 MG TABLET GT SCH ×2 (08:45→21:58)
[2018-01-06] MEDS: HYDROGEN PEROXIDE 3% 118 ML BOTTLE TP SCH ×2 (08:45→21:58)
[2018-01-06] MEDS: ACIDOPHILUS/BULGARICUS CHEW TAB GT SCH ×2 (08:45→21:57)
[2018-01-06] MEDS: DOCUSATE SODIUM 100 MG/10 ML LIQUID UDC GT SCH ×2 (08:45→21:57)
[2018-01-06] MEDS: NUTRISOURCE FIBER 4 GM PACKET GT SCH ×2 (08:45→21:58)
[2018-01-06] MEDS: GLUCERNA 1.2 1000ML LIQUID GT PRN (17:08)
[2018-01-06 20:22] VITALS: BP 126/70
[2018-01-06] MEDS: ASCORBIC ACID 500 MG TABLET PO SCH (21:58)
[2018-01-07] MEDS: MULTIVIT, IRON, MIN NO. 8, FA TABLET GT SCH (06:56)
[2018-01-07] MEDS: OMEPRAZOLE 20 MG CAPSULE.DR GT SCH (06:56)
[2018-01-07 08:00] VITALS: BP 120/84
[2018-01-07] MEDS: DOCUSATE SODIUM 100 MG/10 ML LIQUID UDC GT SCH ×2 (08:05→21:32)
[2018-01-07] MEDS: BACLOFEN 20 MG TABLET GT SCH ×4 (08:05→21:32)
[2018-01-07] MEDS: ACIDOPHILUS/BULGARICUS CHEW TAB GT SCH ×2 (08:05→21:32)
[2018-01-07] MEDS: HYDROGEN PEROXIDE 3% 118 ML BOTTLE TP SCH ×2 (08:06→21:33)
[2018-01-07] MEDS: METOPROLOL TARTRATE 50 MG TABLET GT SCH ×2 (08:06→21:33)
[2018-01-07] MEDS: CALMOSEPTINE 113 GM OINTMENT TP SCH ×2 (08:06→21:33)
[2018-01-07] MEDS: NUTRISOURCE FIBER 4 GM PACKET GT SCH ×2 (08:06→21:33)
[2018-01-07] MEDS: SERTRALINE HCL 50 MG TABLET GT SCH (08:06)
[2018-01-07] MEDS: SIMETHICONE 40 MG/0.6 ML, 30ML BOTTLE GT SCH ×3 (08:06→16:16)
[2018-01-07] MEDS: KETOCONAZOLE 2% SHAMPOO 120 ML BOTTLE TP SCH (08:07)
[2018-01-07] MEDS: GLUCERNA 1.2 1000ML LIQUID GT PRN (16:16)
[2018-01-07 21:07] VITALS: BP 122/79
[2018-01-07] MEDS: ASCORBIC ACID 500 MG TABLET PO SCH (21:33)
[2018-01-08] MEDS: OMEPRAZOLE 20 MG CAPSULE.DR GT SCH (05:49)
[2018-01-08 08:00] VITALS: BP 119/88
[2018-01-08] MEDS: HYDROGEN PEROXIDE 3% 118 ML BOTTLE TP SCH ×2 (09:00→20:33)
[2018-01-08] MEDS: CALMOSEPTINE 113 GM OINTMENT TP SCH ×2 (09:00→20:33)
[2018-01-08] MEDS: SIMETHICONE 40 MG/0.6 ML, 30ML BOTTLE GT SCH ×3 (09:00→16:12)
[2018-01-08] MEDS: SERTRALINE HCL 50 MG TABLET GT SCH (09:00)
[2018-01-08] MEDS: NUTRISOURCE FIBER 4 GM PACKET GT SCH ×2 (09:00→20:33)
[2018-01-08] MEDS: DOCUSATE SODIUM 100 MG/10 ML LIQUID UDC GT SCH ×2 (09:59→20:30)
[2018-01-08] MEDS: ACIDOPHILUS/BULGARICUS CHEW TAB GT SCH ×2 (09:59→20:30)
[2018-01-08] MEDS: BACLOFEN 20 MG TABLET GT SCH ×4 (09:59→20:30)
[2018-01-08] MEDS: METOPROLOL TARTRATE 50 MG TABLET GT SCH ×2 (10:00→20:33)
[2018-01-08 20:24] VITALS: BP 126/80
[2018-01-08] MEDS: ASCORBIC ACID 500 MG TABLET PO SCH (20:33)
[2018-01-08] MEDS: GLUCERNA 1.2 1000ML LIQUID GT PRN (20:40)
[2018-01-09] MEDS: MULTIVIT, IRON, MIN NO. 8, FA TABLET GT SCH (05:30)
[2018-01-09] MEDS: OMEPRAZOLE 20 MG CAPSULE.DR GT SCH (05:30)
[2018-01-09 08:00] VITALS: BP 129/64
[2018-01-09] MEDS: ACIDOPHILUS/BULGARICUS CHEW TAB GT SCH ×2 (08:43→21:19)
[2018-01-09] MEDS: DOCUSATE SODIUM 100 MG/10 ML LIQUID UDC GT SCH ×2 (08:43→21:19)
[2018-01-09] MEDS: BACLOFEN 20 MG TABLET GT SCH ×4 (08:43→21:20)
[2018-01-09] MEDS: SIMETHICONE 40 MG/0.6 ML, 30ML BOTTLE GT SCH ×3 (08:44→17:20)
[2018-01-09] MEDS: NUTRISOURCE FIBER 4 GM PACKET GT SCH ×2 (08:44→21:21)
[2018-01-09] MEDS: CALMOSEPTINE 113 GM OINTMENT TP SCH ×2 (08:44→21:21)
[2018-01-09] MEDS: HYDROGEN PEROXIDE 3% 118 ML BOTTLE TP SCH ×2 (08:44→21:21)
[2018-01-09] MEDS: SERTRALINE HCL 50 MG TABLET GT SCH (08:44)
[2018-01-09] MEDS: METOPROLOL TARTRATE 50 MG TABLET GT SCH ×2 (08:50→21:21)
[2018-01-09 20:16] VITALS: BP 115/71
[2018-01-09] MEDS: ASCORBIC ACID 500 MG TABLET PO SCH (21:21)
[2018-01-09] MEDS: GLUCERNA 1.2 1000ML LIQUID GT PRN (21:56)
[2018-01-10] MEDS: OMEPRAZOLE 20 MG CAPSULE.DR GT SCH (05:22)
[2018-01-10 08:10] VITALS: BP 140/88
[2018-01-10] MEDS: CALMOSEPTINE 113 GM OINTMENT TP SCH ×2 (08:37→21:05)
[2018-01-10] MEDS: SERTRALINE HCL 50 MG TABLET GT SCH (08:37)
[2018-01-10] MEDS: DOCUSATE SODIUM 100 MG/10 ML LIQUID UDC GT SCH ×2 (08:37→21:03)
[2018-01-10] MEDS: NUTRISOURCE FIBER 4 GM PACKET GT SCH ×2 (08:37→21:05)
[2018-01-10] MEDS: BACLOFEN 20 MG TABLET GT SCH ×4 (08:37→21:04)
[2018-01-10] MEDS: HYDROGEN PEROXIDE 3% 118 ML BOTTLE TP SCH ×2 (08:37→21:06)
[2018-01-10] MEDS: ACIDOPHILUS/BULGARICUS CHEW TAB GT SCH ×2 (08:37→21:03)
[2018-01-10] MEDS: KETOCONAZOLE 2% SHAMPOO 120 ML BOTTLE TP SCH (08:37)
[2018-01-10] MEDS: SIMETHICONE 40 MG/0.6 ML, 30ML BOTTLE GT SCH ×3 (08:37→16:08)
[2018-01-10] MEDS: METOPROLOL TARTRATE 50 MG TABLET GT SCH ×2 (08:37→21:05)
--- NOTE | 2018-01-10 13:24 | NUR ---
SEEN AND EXAMINED BY GLENN MORGAN.
[2018-01-10 20:00] VITALS: BP 100/71
[2018-01-10] MEDS: ASCORBIC ACID 500 MG TABLET PO SCH (21:05)
[2018-01-10] MEDS: GLUCERNA 1.2 1000ML LIQUID GT PRN (21:57)
[2018-01-11] MEDS: OMEPRAZOLE 20 MG CAPSULE.DR GT SCH (05:27)
[2018-01-11] MEDS: MULTIVIT, IRON, MIN NO. 8, FA TABLET GT SCH (05:39)
[2018-01-11 08:08] VITALS: BP 131/77
[2018-01-11] MEDS: DOCUSATE SODIUM 100 MG/10 ML LIQUID UDC GT SCH ×2 (08:39→21:04)
[2018-01-11] MEDS: HYDROGEN PEROXIDE 3% 118 ML BOTTLE TP SCH ×2 (08:40→21:05)
[2018-01-11] MEDS: BACLOFEN 20 MG TABLET GT SCH ×4 (08:40→21:05)
[2018-01-11] MEDS: ACIDOPHILUS/BULGARICUS CHEW TAB GT SCH ×2 (08:40→21:05)
[2018-01-11] MEDS: SIMETHICONE 40 MG/0.6 ML, 30ML BOTTLE GT SCH ×3 (08:40→16:11)
[2018-01-11] MEDS: METOPROLOL TARTRATE 50 MG TABLET GT SCH ×2 (08:40→21:05)
[2018-01-11] MEDS: CALMOSEPTINE 113 GM OINTMENT TP SCH ×2 (08:40→21:05)
[2018-01-11] MEDS: NUTRISOURCE FIBER 4 GM PACKET GT SCH ×2 (08:40→21:05)
[2018-01-11] MEDS: SERTRALINE HCL 50 MG TABLET GT SCH (08:40)
[2018-01-11 20:00] VITALS: BP 114/81
[2018-01-11] MEDS: ASCORBIC ACID 500 MG TABLET PO SCH (21:05)
[2018-01-12] MEDS: GLUCERNA 1.2 1000ML LIQUID GT PRN ×2 (01:49→17:45)
[2018-01-12] MEDS: OMEPRAZOLE 20 MG CAPSULE.DR GT SCH (05:30)
[2018-01-12 08:00] VITALS: BP_SYST 126; BP_SYST 93; BP_DIAS 60; BP_DIAS 64
[2018-01-12] MEDS: NUTRISOURCE FIBER 4 GM PACKET GT SCH ×2 (09:00→20:07)
[2018-01-12] MEDS: SIMETHICONE 40 MG/0.6 ML, 30ML BOTTLE GT SCH ×3 (09:00→17:20)
[2018-01-12] MEDS: METOPROLOL TARTRATE 50 MG TABLET GT SCH ×2 (09:00→20:28)
[2018-01-12] MEDS: CALMOSEPTINE 113 GM OINTMENT TP SCH ×2 (09:00→20:07)
[2018-01-12] MEDS: DOCUSATE SODIUM 100 MG/10 ML LIQUID UDC GT SCH ×2 (09:00→20:07)
[2018-01-12] MEDS: SERTRALINE HCL 50 MG TABLET GT SCH (09:00)
[2018-01-12] MEDS: BACLOFEN 20 MG TABLET GT SCH ×4 (09:00→20:07)
[2018-01-12] MEDS: HYDROGEN PEROXIDE 3% 118 ML BOTTLE TP SCH ×2 (09:00→20:07)
[2018-01-12] MEDS: ACIDOPHILUS/BULGARICUS CHEW TAB GT SCH ×2 (09:00→20:07)
[2018-01-12 20:00] VITALS: BP 125/83
[2018-01-12] MEDS: ASCORBIC ACID 500 MG TABLET PO SCH (20:07)
[2018-01-13] MEDS: MULTIVIT, IRON, MIN NO. 8, FA TABLET GT SCH (05:36)
[2018-01-13] MEDS: OMEPRAZOLE 20 MG CAPSULE.DR GT SCH (05:36)
[2018-01-13 08:00] VITALS: BP 121/85
[2018-01-13] MEDS: DOCUSATE SODIUM 100 MG/10 ML LIQUID UDC GT SCH ×2 (08:23→20:20)
[2018-01-13] MEDS: ACIDOPHILUS/BULGARICUS CHEW TAB GT SCH ×2 (08:23→20:20)
[2018-01-13] MEDS: BACLOFEN 20 MG TABLET GT SCH ×4 (08:23→20:20)
[2018-01-13] MEDS: METOPROLOL TARTRATE 50 MG TABLET GT SCH ×3 (08:26→20:45)
[2018-01-13] MEDS: CALMOSEPTINE 113 GM OINTMENT TP SCH ×3 (08:27→20:45)
[2018-01-13] MEDS: NUTRISOURCE FIBER 4 GM PACKET GT SCH ×3 (08:27→20:45)
[2018-01-13] MEDS: SIMETHICONE 40 MG/0.6 ML, 30ML BOTTLE GT SCH ×3 (08:27→17:11)
[2018-01-13] MEDS: HYDROGEN PEROXIDE 3% 118 ML BOTTLE TP SCH ×3 (08:27→20:46)
[2018-01-13] MEDS: SERTRALINE HCL 50 MG TABLET GT SCH (08:27)
[2018-01-13] MEDS: GLUCERNA 1.2 1000ML LIQUID GT PRN (14:41)
[2018-01-13 20:18] VITALS: BP 130/82
[2018-01-13] MEDS: ASCORBIC ACID 500 MG TABLET PO SCH ×2 (20:21→20:45)
[2018-01-14] MEDS: OMEPRAZOLE 20 MG CAPSULE.DR GT SCH (05:06)
[2018-01-14 08:00] VITALS: BP 118/81
[2018-01-14] MEDS: ACIDOPHILUS/BULGARICUS CHEW TAB GT SCH ×2 (08:13→21:32)
[2018-01-14] MEDS: DOCUSATE SODIUM 100 MG/10 ML LIQUID UDC GT SCH ×2 (08:13→21:32)
[2018-01-14] MEDS: BACLOFEN 20 MG TABLET GT SCH ×4 (08:13→21:34)
[2018-01-14] MEDS: HYDROGEN PEROXIDE 3% 118 ML BOTTLE TP SCH ×2 (08:14→21:34)
[2018-01-14] MEDS: SERTRALINE HCL 50 MG TABLET GT SCH (08:14)
[2018-01-14] MEDS: KETOCONAZOLE 2% SHAMPOO 120 ML BOTTLE TP SCH (08:14)
[2018-01-14] MEDS: CALMOSEPTINE 113 GM OINTMENT TP SCH ×2 (08:14→21:34)
[2018-01-14] MEDS: METOPROLOL TARTRATE 50 MG TABLET GT SCH ×2 (08:14→21:33)
[2018-01-14] MEDS: SIMETHICONE 40 MG/0.6 ML, 30ML BOTTLE GT SCH ×3 (08:14→16:38)
[2018-01-14] MEDS: NUTRISOURCE FIBER 4 GM PACKET GT SCH ×2 (08:14→21:33)
--- NOTE | 2018-01-14 12:17 | NUR ---
Patient scheduled for her annual dental exam on 02/04/18.
--- NOTE | 2018-01-14 14:01 | NUR ---
SEEN BY GLENN MORGAN.
[2018-01-14] MEDS: GLUCERNA 1.2 1000ML LIQUID GT PRN (16:38)
[2018-01-14 21:09] VITALS: BP 136/89
[2018-01-14] MEDS: ASCORBIC ACID 500 MG TABLET PO SCH (21:35)
[2018-01-15] MEDS: MULTIVIT, IRON, MIN NO. 8, FA TABLET GT SCH (05:45)
[2018-01-15] MEDS: OMEPRAZOLE 20 MG CAPSULE.DR GT SCH (05:45)
[2018-01-15 08:00] VITALS: BP 125/93
[2018-01-15] MEDS: DOCUSATE SODIUM 100 MG/10 ML LIQUID UDC GT SCH ×2 (09:20→21:19)
[2018-01-15] MEDS: ACIDOPHILUS/BULGARICUS CHEW TAB GT SCH ×2 (09:21→21:20)
[2018-01-15] MEDS: BACLOFEN 20 MG TABLET GT SCH ×4 (09:21→21:20)
[2018-01-15] MEDS: NUTRISOURCE FIBER 4 GM PACKET GT SCH ×2 (09:22→21:21)
[2018-01-15] MEDS: SIMETHICONE 40 MG/0.6 ML, 30ML BOTTLE GT SCH ×3 (09:22→17:43)
[2018-01-15] MEDS: SERTRALINE HCL 50 MG TABLET GT SCH (09:23)
[2018-01-15] MEDS: CALMOSEPTINE 113 GM OINTMENT TP SCH ×2 (09:23→21:21)
[2018-01-15] MEDS: HYDROGEN PEROXIDE 3% 118 ML BOTTLE TP SCH ×2 (09:24→21:21)
[2018-01-15] MEDS: METOPROLOL TARTRATE 50 MG TABLET GT SCH ×2 (09:25→21:21)
[2018-01-15] MEDS: GLUCERNA 1.2 1000ML LIQUID GT PRN (12:05)
--- NOTE | 2018-01-15 12:30 | NUR ---
Seen and examined by Dr Heaton,no new orders.
--- NOTE | 2018-01-15 14:17 | NUR ---
INTERDISCIPLINARY PLAN OF CARE CONFERENCE was held today. Patient's family was unable to attend the meeting. Dr. Heaton and the Interdisciplinary Team reviewed the current plan of care in detail. RN reported on patient's current medical condition. No major changes were reported at this time. See RN IDT conference notes. See also all other disciplines IDT notes and physician's progress notes for additional details.
--- NOTE | 2018-01-15 17:10 | NUR ---
Pharmacy Update from today's 01/15/18 IDT meeting VS: Temp 98 BP 119/88 HR 80 LABS: (from 10/08/17, no new labs) Wbc 5.9H/H 11.8/36.1Plt 278 Na 139K 3.8Cl 105CO2 25BUN/SCr 15/0.8 BS 117 Ca 8.8A1c 5.7TSH 1.375 MEDICATION USE REVIEWED: > Pt is not on any anti-epileptic medications > Pt is on Zoloft 50mg daily for depression m/b episodes of crying; No GDR planned for pt d/t contraindication of persistent cry episodes and repeated failed GDRs in the past (see MD note). Patient had x0 in November (previously x1 Dec, x0 Jan, x2 Feb, x4 Mar, x0 Apr, x7 May, x0 Jun, x4 July, x0 August, x0 September, x0 October) > Pt is on depo-provera [id number] for heavy menstruation, last given 12/30/17 > PRN MED USAGE: (November) Tylenol 650mg for mild pain used x1 Tylenol for temp x0 Tylenol 1000mg mod pain x0 [place] severe pain x1 Bisacodyl x0 Immodium x0 Rodriguez flush enema x0 NEW ORDERS NOTED: > NA Patient was reviewed and discussed in detail with no medication issues at this time. Patient remains stable on current regimen, will continue to follow
[2018-01-15 20:53] VITALS: BP 130/80
[2018-01-15] MEDS: ASCORBIC ACID 500 MG TABLET PO SCH (21:21)
[2018-01-16] MEDS: OMEPRAZOLE 20 MG CAPSULE.DR GT SCH (05:10)
[2018-01-16] MEDS: GLUCERNA 1.2 1000ML LIQUID GT PRN (06:21)
[2018-01-16 08:00] VITALS: BP 124/79
[2018-01-16] MEDS: DOCUSATE SODIUM 100 MG/10 ML LIQUID UDC GT SCH ×2 (08:17→21:37)
[2018-01-16] MEDS: METOPROLOL TARTRATE 50 MG TABLET GT SCH ×2 (08:18→21:38)
[2018-01-16] MEDS: BACLOFEN 20 MG TABLET GT SCH ×4 (08:18→21:38)
[2018-01-16] MEDS: ACIDOPHILUS/BULGARICUS CHEW TAB GT SCH ×2 (08:18→21:37)
[2018-01-16] MEDS: CALMOSEPTINE 113 GM OINTMENT TP SCH ×2 (08:19→21:39)
[2018-01-16] MEDS: NUTRISOURCE FIBER 4 GM PACKET GT SCH ×2 (08:19→21:38)
[2018-01-16] MEDS: HYDROGEN PEROXIDE 3% 118 ML BOTTLE TP SCH ×2 (08:19→21:39)
[2018-01-16] MEDS: SIMETHICONE 40 MG/0.6 ML, 30ML BOTTLE GT SCH ×3 (08:19→16:33)
[2018-01-16] MEDS: SERTRALINE HCL 50 MG TABLET GT SCH (08:19)
[2018-01-16 20:00] VITALS: BP 140/75
[2018-01-16] MEDS: ASCORBIC ACID 500 MG TABLET PO SCH (21:38)
[2018-01-16] MEDS: ACETAMINOPHEN 650 MG/20 ML UDC- SA PATIENTS-PAIN ONLY GT PRN (21:39)
[2018-01-17] MEDS: MULTIVIT, IRON, MIN NO. 8, FA TABLET GT SCH (05:38)
[2018-01-17] MEDS: OMEPRAZOLE 20 MG CAPSULE.DR GT SCH (05:38)
[2018-01-17] MEDS: GLUCERNA 1.2 1000ML LIQUID GT PRN (06:00)
[2018-01-17 08:00] VITALS: BP 116/72
[2018-01-17] MEDS ORDERED: Z GUARD REMEDY PASTE 57 GM TUBE TOP PRN (08:00)
[2018-01-17] MEDS: ACIDOPHILUS/BULGARICUS CHEW TAB GT SCH ×2 (08:08→21:06)
[2018-01-17] MEDS: DOCUSATE SODIUM 100 MG/10 ML LIQUID UDC GT SCH ×2 (08:08→21:06)
[2018-01-17] MEDS: METOPROLOL TARTRATE 50 MG TABLET GT SCH ×2 (08:09→21:06)
[2018-01-17] MEDS: BACLOFEN 20 MG TABLET GT SCH ×4 (08:09→21:06)
[2018-01-17] MEDS: SERTRALINE HCL 50 MG TABLET GT SCH (08:10)
[2018-01-17] MEDS: HYDROGEN PEROXIDE 3% 118 ML BOTTLE TP SCH ×2 (08:10→21:07)
[2018-01-17] MEDS: NUTRISOURCE FIBER 4 GM PACKET GT SCH ×2 (08:10→21:06)
[2018-01-17] MEDS: KETOCONAZOLE 2% SHAMPOO 120 ML BOTTLE TP SCH (08:10)
[2018-01-17] MEDS: SIMETHICONE 40 MG/0.6 ML, 30ML BOTTLE GT SCH ×3 (08:10→16:40)
[2018-01-17] MEDS: Z GUARD REMEDY PASTE 57 GM TUBE TOP SCH ×2 (08:10→21:07)
--- NOTE | 2018-01-17 12:44 | NUR ---
Seen by Dalia CARMICHAEL, with no new order.
[2018-01-17 20:56] VITALS: BP 116/73
[2018-01-17] MEDS: ASCORBIC ACID 500 MG TABLET PO SCH (21:06)
[2018-01-18] MEDS: GLUCERNA 1.2 1000ML LIQUID GT PRN (01:47)
[2018-01-18] MEDS: ACETAMINOPHEN 650 MG/20 ML UDC- SA PATIENTS-PAIN ONLY GT PRN (05:00)
[2018-01-18] MEDS: OMEPRAZOLE 20 MG CAPSULE.DR GT SCH (05:03)
[2018-01-18 08:06] VITALS: BP 123/79
[2018-01-18] MEDS: DOCUSATE SODIUM 100 MG/10 ML LIQUID UDC GT SCH ×2 (08:06→21:59)
[2018-01-18] MEDS: ACIDOPHILUS/BULGARICUS CHEW TAB GT SCH ×2 (08:06→21:59)
[2018-01-18] MEDS: BACLOFEN 20 MG TABLET GT SCH ×4 (08:07→21:00)
[2018-01-18] MEDS: METOPROLOL TARTRATE 50 MG TABLET GT SCH ×2 (08:08→21:00)
[2018-01-18] MEDS: HYDROGEN PEROXIDE 3% 118 ML BOTTLE TP SCH ×2 (08:08→21:00)
[2018-01-18] MEDS: SIMETHICONE 40 MG/0.6 ML, 30ML BOTTLE GT SCH ×3 (08:08→16:28)
[2018-01-18] MEDS: SERTRALINE HCL 50 MG TABLET GT SCH (08:08)
[2018-01-18] MEDS: NUTRISOURCE FIBER 4 GM PACKET GT SCH ×2 (08:08→21:00)
[2018-01-18] MEDS: Z GUARD REMEDY PASTE 57 GM TUBE TOP SCH ×2 (08:08→21:00)
[2018-01-18 20:38] VITALS: BP 126/81
[2018-01-18] MEDS: ASCORBIC ACID 500 MG TABLET PO SCH (21:00)
[2018-01-19] MEDS: GLUCERNA 1.2 1000ML LIQUID GT PRN
[2018-01-19] MEDS: OMEPRAZOLE 20 MG CAPSULE.DR GT SCH (05:11)
[2018-01-19] MEDS: MULTIVIT, IRON, MIN NO. 8, FA TABLET GT SCH (05:41)
[2018-01-19] MEDS: BACLOFEN 20 MG TABLET GT SCH ×4 (08:38→21:19)
[2018-01-19] MEDS: ACIDOPHILUS/BULGARICUS CHEW TAB GT SCH ×2 (08:38→21:19)
[2018-01-19] MEDS: DOCUSATE SODIUM 100 MG/10 ML LIQUID UDC GT SCH ×2 (08:38→21:19)
[2018-01-19] MEDS: NUTRISOURCE FIBER 4 GM PACKET GT SCH ×2 (08:39→21:19)
[2018-01-19] MEDS: Z GUARD REMEDY PASTE 57 GM TUBE TOP SCH ×2 (08:39→21:20)
[2018-01-19] MEDS: HYDROGEN PEROXIDE 3% 118 ML BOTTLE TP SCH ×2 (08:39→21:20)
[2018-01-19] MEDS: SERTRALINE HCL 50 MG TABLET GT SCH (08:39)
[2018-01-19] MEDS: METOPROLOL TARTRATE 50 MG TABLET GT SCH ×2 (08:39→21:19)
[2018-01-19] MEDS: SIMETHICONE 40 MG/0.6 ML, 30ML BOTTLE GT SCH ×3 (08:39→17:13)
[2018-01-19 15:36] VITALS: BP 133/80
[2018-01-19 20:52] VITALS: BP 136/87
[2018-01-19] MEDS: ASCORBIC ACID 500 MG TABLET PO SCH (21:20)
[2018-01-20] MEDS: GLUCERNA 1.2 1000ML LIQUID GT PRN (00:02)
[2018-01-20] MEDS: OMEPRAZOLE 20 MG CAPSULE.DR GT SCH (05:34)
[2018-01-20] MEDS: BACLOFEN 20 MG TABLET GT SCH ×4 (08:51→21:43)
[2018-01-20] MEDS: SIMETHICONE 40 MG/0.6 ML, 30ML BOTTLE GT SCH ×3 (08:51→16:21)
[2018-01-20] MEDS: SERTRALINE HCL 50 MG TABLET GT SCH (08:51)
[2018-01-20] MEDS: NUTRISOURCE FIBER 4 GM PACKET GT SCH ×2 (08:51→21:44)
[2018-01-20] MEDS: ACIDOPHILUS/BULGARICUS CHEW TAB GT SCH ×2 (08:51→21:43)
[2018-01-20] MEDS: DOCUSATE SODIUM 100 MG/10 ML LIQUID UDC GT SCH ×2 (08:51→21:42)
[2018-01-20] MEDS: METOPROLOL TARTRATE 50 MG TABLET GT SCH ×2 (08:51→21:44)
[2018-01-20] MEDS: Z GUARD REMEDY PASTE 57 GM TUBE TOP SCH ×2 (08:52→21:45)
[2018-01-20] MEDS: HYDROGEN PEROXIDE 3% 118 ML BOTTLE TP SCH ×2 (08:52→21:45)
[2018-01-20 12:09] VITALS: BP 147/93
[2018-01-20 20:54] VITALS: BP 139/89
[2018-01-20] MEDS: ASCORBIC ACID 500 MG TABLET PO SCH (21:44)
[2018-01-21] MEDS: OMEPRAZOLE 20 MG CAPSULE.DR GT SCH (05:17)
[2018-01-21] MEDS: MULTIVIT, IRON, MIN NO. 8, FA TABLET GT SCH (05:34)
[2018-01-21] MEDS: GLUCERNA 1.2 1000ML LIQUID GT PRN (05:35)
[2018-01-21] MEDS: DOCUSATE SODIUM 100 MG/10 ML LIQUID UDC GT SCH ×2 (09:19→21:41)
[2018-01-21] MEDS: ACIDOPHILUS/BULGARICUS CHEW TAB GT SCH ×2 (09:19→21:41)
[2018-01-21] MEDS: BACLOFEN 20 MG TABLET GT SCH ×4 (09:19→21:41)
[2018-01-21] MEDS: METOPROLOL TARTRATE 50 MG TABLET GT SCH ×2 (09:20→21:42)
[2018-01-21] MEDS: SIMETHICONE 40 MG/0.6 ML, 30ML BOTTLE GT SCH ×3 (09:20→17:00)
[2018-01-21] MEDS: HYDROGEN PEROXIDE 3% 118 ML BOTTLE TP SCH ×2 (09:20→21:42)
[2018-01-21] MEDS: SERTRALINE HCL 50 MG TABLET GT SCH (09:20)
[2018-01-21] MEDS: KETOCONAZOLE 2% SHAMPOO 120 ML BOTTLE TP SCH (09:20)
[2018-01-21] MEDS: NUTRISOURCE FIBER 4 GM PACKET GT SCH ×2 (09:20→21:42)
[2018-01-21] MEDS: Z GUARD REMEDY PASTE 57 GM TUBE TOP SCH ×2 (09:20→21:42)
--- NOTE | 2018-01-21 11:07 | NUR ---
Seen by Dalia CARMICHAEL with no new order.
[2018-01-21 11:45] VITALS: BP 113/65
[2018-01-21] MEDS: ASCORBIC ACID 500 MG TABLET PO SCH (21:42)
[2018-01-22] MEDS: GLUCERNA 1.2 1000ML LIQUID GT PRN (05:00)
[2018-01-22] MEDS: OMEPRAZOLE 20 MG CAPSULE.DR GT SCH (05:52)
[2018-01-22] MEDS: ACIDOPHILUS/BULGARICUS CHEW TAB GT SCH ×2 (08:38→21:44)
[2018-01-22] MEDS: DOCUSATE SODIUM 100 MG/10 ML LIQUID UDC GT SCH ×2 (08:38→21:44)
[2018-01-22] MEDS: METOPROLOL TARTRATE 50 MG TABLET GT SCH ×2 (08:38→21:00)
[2018-01-22] MEDS: BACLOFEN 20 MG TABLET GT SCH ×4 (08:38→21:45)
[2018-01-22] MEDS: SIMETHICONE 40 MG/0.6 ML, 30ML BOTTLE GT SCH ×3 (08:39→17:05)
[2018-01-22] MEDS: HYDROGEN PEROXIDE 3% 118 ML BOTTLE TP SCH ×2 (08:39→21:48)
[2018-01-22] MEDS: NUTRISOURCE FIBER 4 GM PACKET GT SCH ×2 (08:39→21:47)
[2018-01-22] MEDS: Z GUARD REMEDY PASTE 57 GM TUBE TOP SCH ×2 (08:39→21:48)
[2018-01-22] MEDS: SERTRALINE HCL 50 MG TABLET GT SCH (08:39)
[2018-01-22] MEDS: ACETAMINOPHEN 650 MG/20 ML UDC- SA PATIENTS-PAIN ONLY GT PRN ×2 (08:40→11:58)
[2018-01-22 20:48] VITALS: BP 121/84
[2018-01-22] MEDS: ASCORBIC ACID 500 MG TABLET PO SCH (21:48)
[2018-01-23] MEDS: GLUCERNA 1.2 1000ML LIQUID GT PRN (01:30)
[2018-01-23] MEDS: OMEPRAZOLE 20 MG CAPSULE.DR GT SCH (05:53)
[2018-01-23] MEDS: MULTIVIT, IRON, MIN NO. 8, FA TABLET GT SCH (05:53)
--- NOTE | 2018-01-23 08:00 | NUR ---
REC'D. PATIENT AWAKE, AFEBRILE IN BED, ON CA @ 28% FIO2 [place]. [place], VIA TRACH MASK, NO S/S OF RESP. DISTRESS, NO DISCOMFORT NOTED. ABD. SOFT/NON-DISTENDED, SKIN WARM/DRY/INTACT. GT SITE CLEAN/PATENT/NO REDNESS, NO LEAK NOTED. TRACH TUBE SHILEY 6 SECURED/PATENT AT MIDLINE. SR UP X4 ORDERED, CALL LIGHT WITH IN REACH AT ALL TIMES. WILL CONTINUE TO MONITOR.
[2018-01-23] MEDS: SERTRALINE HCL 50 MG TABLET GT SCH (08:45)
[2018-01-23] MEDS: NUTRISOURCE FIBER 4 GM PACKET GT SCH ×2 (08:45→20:40)
[2018-01-23] MEDS: SIMETHICONE 40 MG/0.6 ML, 30ML BOTTLE GT SCH ×3 (08:45→16:57)
[2018-01-23] MEDS: BACLOFEN 20 MG TABLET GT SCH ×4 (08:45→20:37)
[2018-01-23] MEDS: DOCUSATE SODIUM 100 MG/10 ML LIQUID UDC GT SCH ×2 (08:45→20:37)
[2018-01-23] MEDS: ACIDOPHILUS/BULGARICUS CHEW TAB GT SCH ×2 (08:45→20:37)
[2018-01-23] MEDS: Z GUARD REMEDY PASTE 57 GM TUBE TOP SCH ×2 (08:46→20:40)
[2018-01-23] MEDS: METOPROLOL TARTRATE 50 MG TABLET GT SCH ×2 (08:46→20:39)
[2018-01-23] MEDS: HYDROGEN PEROXIDE 3% 118 ML BOTTLE TP SCH ×2 (08:46→20:40)
[2018-01-23 11:11] VITALS: BP 112/72
[2018-01-23 20:00] VITALS: BP 118/80
[2018-01-23] MEDS: ASCORBIC ACID 500 MG TABLET PO SCH (20:40)
[2018-01-24] MEDS: GLUCERNA 1.2 1000ML LIQUID GT PRN (01:40)
--- NOTE | 2018-01-24 04:30 | NUR ---
MAIL HANDLERS SUPERVISOR called to check on patient's skin. on assessment , noted left buttock skin tear, no active bleeding noted, cleansed and initiated in -house treatment, turned and repositioned, kept patient clean and dry.
[2018-01-24] MEDS: COD LIVER OIL/ZINC OXIDE OINT 113 GM TUBE TOP SCH ×3 (04:58→21:00)
[2018-01-24] MEDS: OMEPRAZOLE 20 MG CAPSULE.DR GT SCH (05:07)
[2018-01-24] MEDS: DOCUSATE SODIUM 100 MG/10 ML LIQUID UDC GT SCH ×2 (09:03→21:00)
[2018-01-24] MEDS: ACIDOPHILUS/BULGARICUS CHEW TAB GT SCH ×2 (09:03→21:00)
[2018-01-24] MEDS: BACLOFEN 20 MG TABLET GT SCH ×4 (09:03→21:00)
[2018-01-24] MEDS: SIMETHICONE 40 MG/0.6 ML, 30ML BOTTLE GT SCH ×3 (09:04→16:31)
[2018-01-24] MEDS: Z GUARD REMEDY PASTE 57 GM TUBE TOP SCH ×2 (09:04→21:00)
[2018-01-24] MEDS: NUTRISOURCE FIBER 4 GM PACKET GT SCH ×2 (09:04→21:00)
[2018-01-24] MEDS: METOPROLOL TARTRATE 50 MG TABLET GT SCH ×2 (09:04→21:00)
[2018-01-24] MEDS: SERTRALINE HCL 50 MG TABLET GT SCH (09:04)
[2018-01-24] MEDS: KETOCONAZOLE 2% SHAMPOO 120 ML BOTTLE TP SCH (09:05)
[2018-01-24] MEDS: HYDROGEN PEROXIDE 3% 118 ML BOTTLE TP SCH ×2 (09:05→21:00)
--- NOTE | 2018-01-24 15:17 | NUR ---
SEEN BY GLENN MORGAN.
[2018-01-24 20:35] VITALS: BP 128/86
[2018-01-24] MEDS: ASCORBIC ACID 500 MG TABLET PO SCH (21:00)
[2018-01-25] MEDS: GLUCERNA 1.2 1000ML LIQUID GT PRN (01:26)
[2018-01-25] MEDS: MULTIVIT, IRON, MIN NO. 8, FA TABLET GT SCH (05:55)
[2018-01-25] MEDS: OMEPRAZOLE 20 MG CAPSULE.DR GT SCH (05:55)
[2018-01-25 08:13] VITALS: BP 132/87
[2018-01-25] MEDS: DOCUSATE SODIUM 100 MG/10 ML LIQUID UDC GT SCH ×2 (08:40→21:20)
[2018-01-25] MEDS: ACIDOPHILUS/BULGARICUS CHEW TAB GT SCH ×2 (08:40→21:20)
[2018-01-25] MEDS: BACLOFEN 20 MG TABLET GT SCH ×4 (08:40→21:20)
[2018-01-25] MEDS: METOPROLOL TARTRATE 50 MG TABLET GT SCH ×2 (08:40→21:21)
[2018-01-25] MEDS: HYDROGEN PEROXIDE 3% 118 ML BOTTLE TP SCH ×2 (08:41→21:22)
[2018-01-25] MEDS: NUTRISOURCE FIBER 4 GM PACKET GT SCH ×2 (08:41→21:21)
[2018-01-25] MEDS: SERTRALINE HCL 50 MG TABLET GT SCH (08:41)
[2018-01-25] MEDS: COD LIVER OIL/ZINC OXIDE OINT 113 GM TUBE TOP SCH ×2 (08:41→21:21)
[2018-01-25] MEDS: SIMETHICONE 40 MG/0.6 ML, 30ML BOTTLE GT SCH ×3 (08:41→16:55)
[2018-01-25] MEDS: Z GUARD REMEDY PASTE 57 GM TUBE TOP SCH ×2 (08:41→21:22)
[2018-01-25 20:00] VITALS: BP 108/71
[2018-01-25] MEDS: ASCORBIC ACID 500 MG TABLET PO SCH (21:21)
[2018-01-26] MEDS: GLUCERNA 1.2 1000ML LIQUID GT PRN (01:00)
[2018-01-26] MEDS: OMEPRAZOLE 20 MG CAPSULE.DR GT SCH (05:02)
[2018-01-26 08:00] VITALS: BP 120/66
[2018-01-26] MEDS: HYDROGEN PEROXIDE 3% 118 ML BOTTLE TP SCH ×2 (09:00→20:50)
[2018-01-26] MEDS: NUTRISOURCE FIBER 4 GM PACKET GT SCH ×2 (09:00→20:50)
[2018-01-26] MEDS: COD LIVER OIL/ZINC OXIDE OINT 113 GM TUBE TOP SCH ×2 (09:00→20:50)
[2018-01-26] MEDS: ACIDOPHILUS/BULGARICUS CHEW TAB GT SCH ×2 (09:00→20:50)
[2018-01-26] MEDS: METOPROLOL TARTRATE 50 MG TABLET GT SCH ×2 (09:00→20:50)
[2018-01-26] MEDS: SERTRALINE HCL 50 MG TABLET GT SCH (09:00)
[2018-01-26] MEDS: Z GUARD REMEDY PASTE 57 GM TUBE TOP SCH ×2 (09:00→20:50)
[2018-01-26] MEDS: BACLOFEN 20 MG TABLET GT SCH ×4 (09:00→20:50)
[2018-01-26] MEDS: SIMETHICONE 40 MG/0.6 ML, 30ML BOTTLE GT SCH ×3 (09:00→16:56)
[2018-01-26] MEDS: DOCUSATE SODIUM 100 MG/10 ML LIQUID UDC GT SCH ×2 (09:00→21:00)
[2018-01-26 19:52] VITALS: BP 112/75
[2018-01-26] MEDS: ASCORBIC ACID 500 MG TABLET PO SCH (20:50)
[2018-01-27] MEDS: GLUCERNA 1.2 1000ML LIQUID GT PRN (02:36)
[2018-01-27] MEDS: OMEPRAZOLE 20 MG CAPSULE.DR GT SCH (05:20)
[2018-01-27] MEDS: MULTIVIT, IRON, MIN NO. 8, FA TABLET GT SCH (07:10)
[2018-01-27 08:00] VITALS: BP 123/83
[2018-01-27] MEDS: DOCUSATE SODIUM 100 MG/10 ML LIQUID UDC GT SCH ×2 (08:56→21:34)
[2018-01-27] MEDS: ACIDOPHILUS/BULGARICUS CHEW TAB GT SCH ×2 (08:59→21:34)
[2018-01-27] MEDS: BACLOFEN 20 MG TABLET GT SCH ×4 (09:00→21:34)
[2018-01-27] MEDS: METOPROLOL TARTRATE 50 MG TABLET GT SCH ×2 (09:02→21:35)
[2018-01-27] MEDS: COD LIVER OIL/ZINC OXIDE OINT 113 GM TUBE TOP SCH ×2 (09:03→21:35)
[2018-01-27] MEDS: SERTRALINE HCL 50 MG TABLET GT SCH (09:03)
[2018-01-27] MEDS: SIMETHICONE 40 MG/0.6 ML, 30ML BOTTLE GT SCH ×3 (09:03→17:22)
[2018-01-27] MEDS: Z GUARD REMEDY PASTE 57 GM TUBE TOP SCH ×2 (09:03→21:35)
[2018-01-27] MEDS: NUTRISOURCE FIBER 4 GM PACKET GT SCH ×2 (09:03→21:35)
[2018-01-27] MEDS: HYDROGEN PEROXIDE 3% 118 ML BOTTLE TP SCH ×2 (09:03→21:35)
[2018-01-27] MEDS: ASCORBIC ACID 500 MG TABLET PO SCH (21:35)
[2018-01-27 21:40] VITALS: BP 140/85
[2018-01-28] MEDS: OMEPRAZOLE 20 MG CAPSULE.DR GT SCH (06:09)
[2018-01-28 08:00] VITALS: BP 118/73
[2018-01-28] MEDS: DOCUSATE SODIUM 100 MG/10 ML LIQUID UDC GT SCH ×2 (08:43→21:50)
[2018-01-28] MEDS: ACIDOPHILUS/BULGARICUS CHEW TAB GT SCH ×2 (08:43→21:50)
[2018-01-28] MEDS: SIMETHICONE 40 MG/0.6 ML, 30ML BOTTLE GT SCH ×3 (08:44→17:01)
[2018-01-28] MEDS: BACLOFEN 20 MG TABLET GT SCH ×4 (08:44→21:50)
[2018-01-28] MEDS: METOPROLOL TARTRATE 50 MG TABLET GT SCH ×2 (08:44→21:50)
[2018-01-28] MEDS: NUTRISOURCE FIBER 4 GM PACKET GT SCH ×2 (08:44→21:50)
[2018-01-28] MEDS: COD LIVER OIL/ZINC OXIDE OINT 113 GM TUBE TOP SCH ×2 (08:45→21:50)
[2018-01-28] MEDS: HYDROGEN PEROXIDE 3% 118 ML BOTTLE TP SCH ×2 (08:45→21:51)
[2018-01-28] MEDS: KETOCONAZOLE 2% SHAMPOO 120 ML BOTTLE TP SCH (08:45)
[2018-01-28] MEDS: Z GUARD REMEDY PASTE 57 GM TUBE TOP SCH ×2 (08:45→21:51)
[2018-01-28] MEDS: SERTRALINE HCL 50 MG TABLET GT SCH (08:45)
[2018-01-28 20:59] VITALS: BP 128/79
[2018-01-28] MEDS: ASCORBIC ACID 500 MG TABLET PO SCH (21:50)
[2018-01-29] MEDS: GLUCERNA 1.2 1000ML LIQUID GT PRN ×2 (01:42→23:01)
[2018-01-29] MEDS: OMEPRAZOLE 20 MG CAPSULE.DR GT SCH (06:20)
[2018-01-29] MEDS: MULTIVIT, IRON, MIN NO. 8, FA TABLET GT SCH (06:20)
[2018-01-29 08:00] VITALS: BP 114/65
[2018-01-29] MEDS: METOPROLOL TARTRATE 50 MG TABLET GT SCH ×2 (08:26→21:37)
[2018-01-29] MEDS: BACLOFEN 20 MG TABLET GT SCH ×4 (08:26→21:36)
[2018-01-29] MEDS: DOCUSATE SODIUM 100 MG/10 ML LIQUID UDC GT SCH ×2 (08:26→21:36)
[2018-01-29] MEDS: ACIDOPHILUS/BULGARICUS CHEW TAB GT SCH ×2 (08:26→21:36)
[2018-01-29] MEDS: SIMETHICONE 40 MG/0.6 ML, 30ML BOTTLE GT SCH ×3 (08:27→17:29)
[2018-01-29] MEDS: SERTRALINE HCL 50 MG TABLET GT SCH (08:27)
[2018-01-29] MEDS: HYDROGEN PEROXIDE 3% 118 ML BOTTLE TP SCH ×2 (08:27→21:38)
[2018-01-29] MEDS: Z GUARD REMEDY PASTE 57 GM TUBE TOP SCH ×2 (08:27→21:38)
[2018-01-29] MEDS: NUTRISOURCE FIBER 4 GM PACKET GT SCH ×2 (08:27→21:37)
[2018-01-29] MEDS: COD LIVER OIL/ZINC OXIDE OINT 113 GM TUBE TOP SCH ×2 (08:27→21:37)
[2018-01-29] MEDS: NYSTATIN CREAM 30 GM TUBE TP SCH (09:00)
--- NOTE | 2018-01-29 16:00 | NUR ---
new orders noted for back rashes and carried out.
[2018-01-29] MEDS: ACETAMINOPHEN 650 MG/20 ML UDC- SA PATIENTS-PAIN ONLY GT PRN (17:00)
[2018-01-29 21:11] VITALS: BP 129/81
[2018-01-29] MEDS: ASCORBIC ACID 500 MG TABLET PO SCH (21:37)
[2018-01-30] MEDS: OMEPRAZOLE 20 MG CAPSULE.DR GT SCH (05:54)
[2018-01-30] MEDS: NYSTATIN CREAM 30 GM TUBE TP SCH ×2 (09:00→21:35)
[2018-01-30] MEDS: BACLOFEN 20 MG TABLET GT SCH ×4 (09:17→21:34)
[2018-01-30] MEDS: DOCUSATE SODIUM 100 MG/10 ML LIQUID UDC GT SCH ×2 (09:17→21:34)
[2018-01-30] MEDS: ACIDOPHILUS/BULGARICUS CHEW TAB GT SCH ×2 (09:17→21:34)
[2018-01-30] MEDS: NUTRISOURCE FIBER 4 GM PACKET GT SCH ×2 (09:18→21:35)
[2018-01-30] MEDS: SERTRALINE HCL 50 MG TABLET GT SCH (09:18)
[2018-01-30] MEDS: Z GUARD REMEDY PASTE 57 GM TUBE TOP SCH ×2 (09:18→21:35)
[2018-01-30] MEDS: COD LIVER OIL/ZINC OXIDE OINT 113 GM TUBE TOP SCH ×2 (09:18→21:35)
[2018-01-30] MEDS: SIMETHICONE 40 MG/0.6 ML, 30ML BOTTLE GT SCH ×3 (09:18→16:57)
[2018-01-30] MEDS: HYDROGEN PEROXIDE 3% 118 ML BOTTLE TP SCH ×2 (09:19→21:35)
[2018-01-30] MEDS: METOPROLOL TARTRATE 50 MG TABLET GT SCH ×2 (09:21→21:00)
[2018-01-30 09:22] VITALS: BP 124/69
--- NOTE | 2018-01-30 16:39 | NUR ---
Graham pt's brother aware ,pt will be transfer to room 401 A.He agreed.
[2018-01-30] MEDS: ASCORBIC ACID 500 MG TABLET PO SCH (21:35)
[2018-01-31] MEDS: OMEPRAZOLE 20 MG CAPSULE.DR GT SCH (05:30)
[2018-01-31] MEDS: MULTIVIT, IRON, MIN NO. 8, FA TABLET GT SCH (05:30)
[2018-01-31 07:57] VITALS: BP 148/91
[2018-01-31] MEDS: ACIDOPHILUS/BULGARICUS CHEW TAB GT SCH ×2 (08:04→20:19)
[2018-01-31] MEDS: DOCUSATE SODIUM 100 MG/10 ML LIQUID UDC GT SCH ×2 (08:04→20:19)
[2018-01-31] MEDS: BACLOFEN 20 MG TABLET GT SCH ×4 (08:04→20:20)
[2018-01-31] MEDS: COD LIVER OIL/ZINC OXIDE OINT 113 GM TUBE TOP SCH ×2 (08:05→20:21)
[2018-01-31] MEDS: SERTRALINE HCL 50 MG TABLET GT SCH (08:05)
[2018-01-31] MEDS: METOPROLOL TARTRATE 50 MG TABLET GT SCH ×2 (08:05→20:21)
[2018-01-31] MEDS: Z GUARD REMEDY PASTE 57 GM TUBE TOP SCH ×2 (08:05→20:21)
[2018-01-31] MEDS: SIMETHICONE 40 MG/0.6 ML, 30ML BOTTLE GT SCH ×3 (08:05→16:49)
[2018-01-31] MEDS: KETOCONAZOLE 2% SHAMPOO 120 ML BOTTLE TP SCH (08:05)
[2018-01-31] MEDS: NUTRISOURCE FIBER 4 GM PACKET GT SCH ×2 (08:05→20:21)
[2018-01-31] MEDS: HYDROGEN PEROXIDE 3% 118 ML BOTTLE TP SCH ×2 (08:05→20:21)
[2018-01-31] MEDS: NYSTATIN CREAM 30 GM TUBE TP SCH ×2 (08:05→20:22)
[2018-01-31] MEDS: GLUCERNA 1.2 1000ML LIQUID GT PRN (17:54)
[2018-01-31] MEDS: ACETAMINOPHEN 650 MG/20 ML UDC- SA PATIENTS-PAIN ONLY GT PRN (18:25)
[2018-01-31 20:00] VITALS: BP 110/66
[2018-01-31] MEDS: ASCORBIC ACID 500 MG TABLET PO SCH (20:21)
[2018-02-01] MEDS: OMEPRAZOLE 20 MG CAPSULE.DR GT SCH (05:30)
[2018-02-01 08:00] VITALS: BP 128/85
[2018-02-01] MEDS: BACLOFEN 20 MG TABLET GT SCH ×4 (08:30→21:09)
[2018-02-01] MEDS: METOPROLOL TARTRATE 50 MG TABLET GT SCH ×2 (08:30→21:10)
[2018-02-01] MEDS: SIMETHICONE 40 MG/0.6 ML, 30ML BOTTLE GT SCH ×3 (08:30→16:51)
[2018-02-01] MEDS: DOCUSATE SODIUM 100 MG/10 ML LIQUID UDC GT SCH ×2 (08:30→21:09)
[2018-02-01] MEDS: ACIDOPHILUS/BULGARICUS CHEW TAB GT SCH ×2 (08:30→21:09)
[2018-02-01] MEDS: COD LIVER OIL/ZINC OXIDE OINT 113 GM TUBE TOP SCH ×2 (08:31→21:11)
[2018-02-01] MEDS: NUTRISOURCE FIBER 4 GM PACKET GT SCH ×2 (08:31→21:10)
[2018-02-01] MEDS: HYDROGEN PEROXIDE 3% 118 ML BOTTLE TP SCH ×2 (08:31→21:11)
[2018-02-01] MEDS: NYSTATIN CREAM 30 GM TUBE TP SCH ×2 (08:31→21:11)
[2018-02-01] MEDS: Z GUARD REMEDY PASTE 57 GM TUBE TOP SCH ×2 (08:31→21:11)
[2018-02-01] MEDS: SERTRALINE HCL 50 MG TABLET GT SCH (08:31)
[2018-02-01] MEDS: GLUCERNA 1.2 1000ML LIQUID GT PRN (17:18)
[2018-02-01 20:00] VITALS: BP 128/81
[2018-02-01] MEDS: ASCORBIC ACID 500 MG TABLET PO SCH (21:11)
[2018-02-02] MEDS: OMEPRAZOLE 20 MG CAPSULE.DR GT SCH (05:12)
[2018-02-02] MEDS: MULTIVIT, IRON, MIN NO. 8, FA TABLET GT SCH (05:32)
[2018-02-02 08:00] VITALS: BP 118/78
[2018-02-02] MEDS: DOCUSATE SODIUM 100 MG/10 ML LIQUID UDC GT SCH ×2 (09:13→21:13)
[2018-02-02] MEDS: ACIDOPHILUS/BULGARICUS CHEW TAB GT SCH ×2 (09:13→21:13)
[2018-02-02] MEDS: BACLOFEN 20 MG TABLET GT SCH ×4 (09:13→21:14)
[2018-02-02] MEDS: SERTRALINE HCL 50 MG TABLET GT SCH (09:14)
[2018-02-02] MEDS: SIMETHICONE 40 MG/0.6 ML, 30ML BOTTLE GT SCH ×3 (09:14→18:00)
[2018-02-02] MEDS: NUTRISOURCE FIBER 4 GM PACKET GT SCH ×2 (09:14→21:15)
[2018-02-02] MEDS: METOPROLOL TARTRATE 50 MG TABLET GT SCH ×2 (09:14→21:15)
[2018-02-02] MEDS: COD LIVER OIL/ZINC OXIDE OINT 113 GM TUBE TOP SCH (09:15)
[2018-02-02] MEDS: Z GUARD REMEDY PASTE 57 GM TUBE TOP SCH ×2 (09:16→21:16)
[2018-02-02] MEDS: HYDROGEN PEROXIDE 3% 118 ML BOTTLE TP SCH ×2 (09:16→21:16)
[2018-02-02] MEDS: NYSTATIN CREAM 30 GM TUBE TP SCH ×2 (09:16→21:16)
[2018-02-02] MEDS: ACETAMINOPHEN 650 MG/20 ML UDC- SA PATIENTS-PAIN ONLY GT PRN (09:17)
[2018-02-02] MEDS: HYDROCODONE/APAP 5-325MG TABLET GT PRN (10:22)
[2018-02-02] MEDS: GLUCERNA 1.2 1000ML LIQUID GT PRN (18:02)
[2018-02-02 20:27] VITALS: BP 132/74
[2018-02-02] MEDS: ASCORBIC ACID 500 MG TABLET PO SCH (21:15)
[2018-02-03] MEDS: OMEPRAZOLE 20 MG CAPSULE.DR GT SCH (05:12)
[2018-02-03] MEDS: ACETAMINOPHEN 650 MG/20 ML UDC- SA PATIENTS-PAIN ONLY GT PRN (05:17)
[2018-02-03 08:00] VITALS: BP 117/70
[2018-02-03] MEDS: DOCUSATE SODIUM 100 MG/10 ML LIQUID UDC GT SCH ×2 (08:23→20:45)
[2018-02-03] MEDS: BACLOFEN 20 MG TABLET GT SCH ×4 (08:24→20:45)
[2018-02-03] MEDS: ACIDOPHILUS/BULGARICUS CHEW TAB GT SCH ×2 (08:24→20:45)
[2018-02-03] MEDS: Z GUARD REMEDY PASTE 57 GM TUBE TOP SCH ×2 (08:26→20:46)
[2018-02-03] MEDS: HYDROGEN PEROXIDE 3% 118 ML BOTTLE TP SCH ×2 (08:26→20:46)
[2018-02-03] MEDS: NUTRISOURCE FIBER 4 GM PACKET GT SCH ×2 (08:26→20:46)
[2018-02-03] MEDS: SERTRALINE HCL 50 MG TABLET GT SCH (08:26)
[2018-02-03] MEDS: METOPROLOL TARTRATE 50 MG TABLET GT SCH ×2 (08:26→20:46)
[2018-02-03] MEDS: SIMETHICONE 40 MG/0.6 ML, 30ML BOTTLE GT SCH ×3 (08:26→17:08)
[2018-02-03] MEDS: NYSTATIN CREAM 30 GM TUBE TP SCH ×2 (08:27→20:46)
[2018-02-03] MEDS: GLUCERNA 1.2 1000ML LIQUID GT PRN (17:09)
[2018-02-03 20:32] VITALS: BP 123/76
[2018-02-03] MEDS: ASCORBIC ACID 500 MG TABLET PO SCH (20:46)
[2018-02-04] MEDS: OMEPRAZOLE 20 MG CAPSULE.DR GT SCH (05:35)
[2018-02-04] MEDS: MULTIVIT, IRON, MIN NO. 8, FA TABLET GT SCH (05:35)
[2018-02-04 08:00] VITALS: BP 109/78
[2018-02-04] MEDS: ACIDOPHILUS/BULGARICUS CHEW TAB GT SCH ×2 (09:07→20:49)
[2018-02-04] MEDS: DOCUSATE SODIUM 100 MG/10 ML LIQUID UDC GT SCH ×2 (09:07→20:49)
[2018-02-04] MEDS: BACLOFEN 20 MG TABLET GT SCH ×4 (09:07→20:49)
[2018-02-04] MEDS: SIMETHICONE 40 MG/0.6 ML, 30ML BOTTLE GT SCH ×3 (09:08→17:18)
[2018-02-04] MEDS: SERTRALINE HCL 50 MG TABLET GT SCH (09:08)
[2018-02-04] MEDS: NUTRISOURCE FIBER 4 GM PACKET GT SCH ×2 (09:08→20:49)
[2018-02-04] MEDS: METOPROLOL TARTRATE 50 MG TABLET GT SCH ×2 (09:08→20:49)
[2018-02-04] MEDS: KETOCONAZOLE 2% SHAMPOO 120 ML BOTTLE TP SCH (09:09)
[2018-02-04] MEDS: NYSTATIN CREAM 30 GM TUBE TP SCH ×2 (09:09→20:50)
[2018-02-04] MEDS: HYDROGEN PEROXIDE 3% 118 ML BOTTLE TP SCH ×2 (09:09→20:50)
[2018-02-04] MEDS: Z GUARD REMEDY PASTE 57 GM TUBE TOP SCH ×2 (09:09→20:50)
--- NOTE | 2018-02-04 10:37 | NUR ---
Seen by Dalia CARMICHAEL with no new order.
--- NOTE | 2018-02-04 16:54 | NUR ---
Patient seen by dentist Dr. Waggoner today. See Dental Notes for details.
[2018-02-04] MEDS: GLUCERNA 1.2 1000ML LIQUID GT PRN (17:21)
[2018-02-04 19:54] VITALS: BP 117/84
[2018-02-04] MEDS: ASCORBIC ACID 500 MG TABLET PO SCH (20:50)
[2018-02-05] MEDS: OMEPRAZOLE 20 MG CAPSULE.DR GT SCH (05:38)
[2018-02-05 08:04] VITALS: BP 114/88
[2018-02-05] MEDS: Z GUARD REMEDY PASTE 57 GM TUBE TOP SCH ×2 (08:34→21:16)
[2018-02-05] MEDS: NUTRISOURCE FIBER 4 GM PACKET GT SCH ×2 (08:34→21:15)
[2018-02-05] MEDS: BACLOFEN 20 MG TABLET GT SCH ×4 (08:34→21:14)
[2018-02-05] MEDS: SERTRALINE HCL 50 MG TABLET GT SCH (08:34)
[2018-02-05] MEDS: ACIDOPHILUS/BULGARICUS CHEW TAB GT SCH ×2 (08:34→21:13)
[2018-02-05] MEDS: METOPROLOL TARTRATE 50 MG TABLET GT SCH ×2 (08:34→21:15)
[2018-02-05] MEDS: SIMETHICONE 40 MG/0.6 ML, 30ML BOTTLE GT SCH ×3 (08:34→16:50)
[2018-02-05] MEDS: DOCUSATE SODIUM 100 MG/10 ML LIQUID UDC GT SCH ×2 (08:34→21:13)
[2018-02-05] MEDS: HYDROGEN PEROXIDE 3% 118 ML BOTTLE TP SCH ×2 (08:35→21:16)
[2018-02-05] MEDS: NYSTATIN CREAM 30 GM TUBE TP SCH ×2 (08:35→21:16)
--- NOTE | 2018-02-05 09:00 | NUR ---
Seen and examined by Dalia Rodriguez ,no new orders noted.
--- NOTE | 2018-02-05 15:50 | NUR ---
Patient scheduled for dental cleaning on 02/18/2018.
[2018-02-05 19:58] VITALS: BP 111/81
[2018-02-05] MEDS: ASCORBIC ACID 500 MG TABLET PO SCH (21:15)
[2018-02-06] MEDS: OMEPRAZOLE 20 MG CAPSULE.DR GT SCH (05:24)
[2018-02-06] MEDS: MULTIVIT, IRON, MIN NO. 8, FA TABLET GT SCH (05:40)
[2018-02-06 08:00] VITALS: BP 108/76
[2018-02-06] MEDS: BACLOFEN 20 MG TABLET GT SCH ×4 (09:20→21:49)
[2018-02-06] MEDS: ACIDOPHILUS/BULGARICUS CHEW TAB GT SCH ×2 (09:20→21:49)
[2018-02-06] MEDS: METOPROLOL TARTRATE 50 MG TABLET GT SCH ×2 (09:20→21:51)
[2018-02-06] MEDS: DOCUSATE SODIUM 100 MG/10 ML LIQUID UDC GT SCH ×2 (09:20→21:49)
[2018-02-06] MEDS: SIMETHICONE 40 MG/0.6 ML, 30ML BOTTLE GT SCH ×3 (09:20→16:40)
[2018-02-06] MEDS: Z GUARD REMEDY PASTE 57 GM TUBE TOP SCH ×2 (09:21→21:52)
[2018-02-06] MEDS: SERTRALINE HCL 50 MG TABLET GT SCH (09:21)
[2018-02-06] MEDS: NYSTATIN CREAM 30 GM TUBE TP SCH ×2 (09:21→21:52)
[2018-02-06] MEDS: NUTRISOURCE FIBER 4 GM PACKET GT SCH ×2 (09:21→21:51)
[2018-02-06] MEDS: HYDROGEN PEROXIDE 3% 118 ML BOTTLE TP SCH ×2 (09:21→21:52)
--- NOTE | 2018-02-06 09:45 | NUR ---
Seen by Wilma Rodriguez,no new orders.
[2018-02-06] MEDS: GLUCERNA 1.2 1000ML LIQUID GT PRN (18:26)
[2018-02-06 20:11] VITALS: BP 114/79
[2018-02-06] MEDS: ASCORBIC ACID 500 MG TABLET PO SCH (21:51)
[2018-02-07] MEDS: OMEPRAZOLE 20 MG CAPSULE.DR GT SCH (05:14)
--- NOTE | 2018-02-07 08:00 | NUR ---
PT. WAS NOTED WITH PSORIASIS BACK SKIN LESIONS AND PICTURE TAKEN .GLENN Bolaños WAS NOTIFIED AND WITH NEW ORDER CARRIED OUT.
[2018-02-07] MEDS: SIMETHICONE 40 MG/0.6 ML, 30ML BOTTLE GT SCH ×3 (08:31→16:52)
[2018-02-07] MEDS: BACLOFEN 20 MG TABLET GT SCH ×4 (08:31→20:15)
[2018-02-07] MEDS: METOPROLOL TARTRATE 50 MG TABLET GT SCH ×2 (08:31→20:16)
[2018-02-07] MEDS: ACIDOPHILUS/BULGARICUS CHEW TAB GT SCH ×2 (08:31→20:15)
[2018-02-07] MEDS: DOCUSATE SODIUM 100 MG/10 ML LIQUID UDC GT SCH ×2 (08:31→20:15)
[2018-02-07] MEDS: NYSTATIN CREAM 30 GM TUBE TP SCH ×2 (08:32→20:18)
[2018-02-07] MEDS: Z GUARD REMEDY PASTE 57 GM TUBE TOP SCH ×2 (08:32→20:17)
[2018-02-07] MEDS: NUTRISOURCE FIBER 4 GM PACKET GT SCH ×2 (08:32→20:16)
[2018-02-07] MEDS: HYDROGEN PEROXIDE 3% 118 ML BOTTLE TP SCH ×2 (08:32→20:17)
[2018-02-07] MEDS: SERTRALINE HCL 50 MG TABLET GT SCH (08:32)
[2018-02-07] MEDS: KETOCONAZOLE 2% SHAMPOO 120 ML BOTTLE TP SCH (08:32)
[2018-02-07 11:06] VITALS: BP 110/76
[2018-02-07] MEDS: GLUCERNA 1.2 1000ML LIQUID GT PRN (15:19)
--- NOTE | 2018-02-07 17:14 | NUR ---
SEEN BY AND WITH NEW ORDER CARRIED OUT FOR DERMATOLOGY CONSULTATION.CLERICAL AND OFFICE SUPPORT WORKERS AWARE TO F/U FOR BACK SKIN LESIONS.
[2018-02-07 19:30] VITALS: BP 113/55
[2018-02-07] MEDS: ASCORBIC ACID 500 MG TABLET PO SCH (20:16)
[2018-02-07] MEDS: TRIAMCINOLONE ACET 0.1% OINT 60 GM TUBE TP SCH (20:17)
[2018-02-08] MEDS: MULTIVIT, IRON, MIN NO. 8, FA TABLET GT SCH (05:33)
[2018-02-08] MEDS: OMEPRAZOLE 20 MG CAPSULE.DR GT SCH (05:33)
[2018-02-08] MEDS: BACLOFEN 20 MG TABLET GT SCH ×4 (08:39→21:00)
[2018-02-08] MEDS: SIMETHICONE 40 MG/0.6 ML, 30ML BOTTLE GT SCH ×3 (08:39→16:41)
[2018-02-08] MEDS: METOPROLOL TARTRATE 50 MG TABLET GT SCH ×2 (08:39→21:00)
[2018-02-08] MEDS: ACIDOPHILUS/BULGARICUS CHEW TAB GT SCH ×2 (08:39→21:00)
[2018-02-08] MEDS: NUTRISOURCE FIBER 4 GM PACKET GT SCH ×2 (08:39→21:00)
[2018-02-08] MEDS: DOCUSATE SODIUM 100 MG/10 ML LIQUID UDC GT SCH ×2 (08:39→21:00)
[2018-02-08] MEDS: NYSTATIN CREAM 30 GM TUBE TP SCH ×2 (08:40→21:01)
[2018-02-08] MEDS: HYDROGEN PEROXIDE 3% 118 ML BOTTLE TP SCH ×2 (08:40→21:01)
[2018-02-08] MEDS: Z GUARD REMEDY PASTE 57 GM TUBE TOP SCH ×2 (08:40→21:01)
[2018-02-08] MEDS: SERTRALINE HCL 50 MG TABLET GT SCH (08:40)
[2018-02-08] MEDS: TRIAMCINOLONE ACET 0.1% OINT 60 GM TUBE TP SCH ×2 (08:40→21:01)
--- NOTE | 2018-02-08 11:11 | NUR ---
KATHRINE faxed patient's dermatology order, along with patient's face sheet, to Dr. Ramos (fax [phone]; tel [phone]). sawmill manager Yuridia rivas. Subacute Director Mynor Irene aware of order.
[2018-02-08 11:19] VITALS: BP 117/79
[2018-02-08] MEDS: GLUCERNA 1.2 1000ML LIQUID GT PRN (12:35)
--- NOTE | 2018-02-08 14:50 | NUR ---
PT'S BROTHER CONSENTED FLU VACCINE ADMINISTRATION.
[2018-02-08 20:26] VITALS: BP 124/76
[2018-02-08] MEDS: ASCORBIC ACID 500 MG TABLET PO SCH (21:01)
[2018-02-09] MEDS: OMEPRAZOLE 20 MG CAPSULE.DR GT SCH (05:20)
[2018-02-09] MEDS: BACLOFEN 20 MG TABLET GT SCH ×4 (09:02→20:41)
[2018-02-09] MEDS: ACIDOPHILUS/BULGARICUS CHEW TAB GT SCH ×2 (09:02→20:41)
[2018-02-09] MEDS: DOCUSATE SODIUM 100 MG/10 ML LIQUID UDC GT SCH ×2 (09:02→20:41)
[2018-02-09] MEDS: METOPROLOL TARTRATE 50 MG TABLET GT SCH ×2 (09:03→20:42)
[2018-02-09] MEDS: SIMETHICONE 40 MG/0.6 ML, 30ML BOTTLE GT SCH ×3 (09:03→17:01)
[2018-02-09] MEDS: NUTRISOURCE FIBER 4 GM PACKET GT SCH ×2 (09:04→20:42)
[2018-02-09] MEDS: Z GUARD REMEDY PASTE 57 GM TUBE TOP SCH ×2 (09:05→20:42)
[2018-02-09] MEDS: TRIAMCINOLONE ACET 0.1% OINT 60 GM TUBE TP SCH ×2 (09:05→20:43)
[2018-02-09] MEDS: HYDROGEN PEROXIDE 3% 118 ML BOTTLE TP SCH ×2 (09:05→20:43)
[2018-02-09] MEDS: NYSTATIN CREAM 30 GM TUBE TP SCH ×2 (09:05→20:43)
[2018-02-09] MEDS: SERTRALINE HCL 50 MG TABLET GT SCH (09:05)
[2018-02-09] MEDS: GLUCERNA 1.2 1000ML LIQUID GT PRN (11:11)
[2018-02-09 11:21] VITALS: BP 105/75
[2018-02-09 20:11] VITALS: BP 138/85
[2018-02-09] MEDS: ASCORBIC ACID 500 MG TABLET PO SCH (20:42)
[2018-02-09] MEDS: ACETAMINOPHEN 650 MG/20 ML UDC- SA PATIENTS-PAIN ONLY GT PRN (20:44)
[2018-02-10] MEDS: GLUCERNA 1.2 1000ML LIQUID GT PRN (05:00)
[2018-02-10] MEDS: OMEPRAZOLE 20 MG CAPSULE.DR GT SCH (05:24)
[2018-02-10] MEDS: MULTIVIT, IRON, MIN NO. 8, FA TABLET GT SCH (05:25)
[2018-02-10 08:08] VITALS: BP 116/81
[2018-02-10] MEDS: ACIDOPHILUS/BULGARICUS CHEW TAB GT SCH ×2 (08:26→20:11)
[2018-02-10] MEDS: BACLOFEN 20 MG TABLET GT SCH ×4 (08:26→20:11)
[2018-02-10] MEDS: DOCUSATE SODIUM 100 MG/10 ML LIQUID UDC GT SCH ×2 (08:26→20:11)
[2018-02-10] MEDS: NUTRISOURCE FIBER 4 GM PACKET GT SCH ×2 (08:27→20:11)
[2018-02-10] MEDS: SIMETHICONE 40 MG/0.6 ML, 30ML BOTTLE GT SCH ×3 (08:27→17:21)
[2018-02-10] MEDS: METOPROLOL TARTRATE 50 MG TABLET GT SCH ×2 (08:27→20:11)
[2018-02-10] MEDS: SERTRALINE HCL 50 MG TABLET GT SCH (08:27)
[2018-02-10] MEDS: Z GUARD REMEDY PASTE 57 GM TUBE TOP SCH ×2 (08:27→20:11)
[2018-02-10] MEDS: HYDROGEN PEROXIDE 3% 118 ML BOTTLE TP SCH ×2 (08:28→20:11)
[2018-02-10] MEDS: NYSTATIN CREAM 30 GM TUBE TP SCH ×2 (08:29→20:11)
[2018-02-10] MEDS: TRIAMCINOLONE ACET 0.1% OINT 60 GM TUBE TP SCH ×2 (08:29→20:11)
[2018-02-10] MEDS: ACETAMINOPHEN 650 MG/20 ML UDC- SA PATIENTS-PAIN ONLY GT PRN (08:30)
[2018-02-10 19:45] VITALS: BP 133/91
[2018-02-10] MEDS: ASCORBIC ACID 500 MG TABLET PO SCH (20:11)
[2018-02-11] MEDS: OMEPRAZOLE 20 MG CAPSULE.DR GT SCH (05:10)
[2018-02-11] MEDS: GLUCERNA 1.2 1000ML LIQUID GT PRN (05:17)
[2018-02-11 08:18] VITALS: BP 126/88
[2018-02-11] MEDS: HYDROGEN PEROXIDE 3% 118 ML BOTTLE TP SCH ×2 (09:02→21:34)
[2018-02-11] MEDS: NUTRISOURCE FIBER 4 GM PACKET GT SCH ×2 (09:02→21:34)
[2018-02-11] MEDS: DOCUSATE SODIUM 100 MG/10 ML LIQUID UDC GT SCH ×2 (09:02→21:32)
[2018-02-11] MEDS: Z GUARD REMEDY PASTE 57 GM TUBE TOP SCH ×2 (09:02→21:34)
[2018-02-11] MEDS: BACLOFEN 20 MG TABLET GT SCH ×4 (09:02→21:33)
[2018-02-11] MEDS: ACIDOPHILUS/BULGARICUS CHEW TAB GT SCH ×2 (09:02→21:33)
[2018-02-11] MEDS: SERTRALINE HCL 50 MG TABLET GT SCH (09:02)
[2018-02-11] MEDS: METOPROLOL TARTRATE 50 MG TABLET GT SCH ×2 (09:02→21:34)
[2018-02-11] MEDS: SIMETHICONE 40 MG/0.6 ML, 30ML BOTTLE GT SCH ×3 (09:02→17:49)
[2018-02-11] MEDS: TRIAMCINOLONE ACET 0.1% OINT 60 GM TUBE TP SCH ×2 (09:03→21:35)
[2018-02-11] MEDS: NYSTATIN CREAM 30 GM TUBE TP SCH ×2 (09:03→21:35)
[2018-02-11] MEDS: KETOCONAZOLE 2% SHAMPOO 120 ML BOTTLE TP SCH (09:03)
--- NOTE | 2018-02-11 12:00 | NUR ---
SEEN BY GLENN MORGAN.
--- NOTE | 2018-02-11 14:00 | NUR ---
SEEN BY ABIEL MORGAN.
[2018-02-11 20:40] VITALS: BP 113/78
[2018-02-11] MEDS: ASCORBIC ACID 500 MG TABLET PO SCH (21:34)
[2018-02-12] MEDS: OMEPRAZOLE 20 MG CAPSULE.DR GT SCH (05:33)
[2018-02-12] MEDS: MULTIVIT, IRON, MIN NO. 8, FA TABLET GT SCH (05:33)
[2018-02-12] MEDS: DOCUSATE SODIUM 100 MG/10 ML LIQUID UDC GT SCH ×2 (08:08→20:13)
[2018-02-12] MEDS: ACIDOPHILUS/BULGARICUS CHEW TAB GT SCH ×2 (08:08→20:13)
[2018-02-12] MEDS: BACLOFEN 20 MG TABLET GT SCH ×4 (08:08→20:13)
[2018-02-12] MEDS: SERTRALINE HCL 50 MG TABLET GT SCH (08:09)
[2018-02-12] MEDS: SIMETHICONE 40 MG/0.6 ML, 30ML BOTTLE GT SCH ×3 (08:09→17:06)
[2018-02-12] MEDS: NUTRISOURCE FIBER 4 GM PACKET GT SCH ×2 (08:09→20:13)
[2018-02-12] MEDS: METOPROLOL TARTRATE 50 MG TABLET GT SCH ×2 (08:09→20:19)
[2018-02-12] MEDS: HYDROGEN PEROXIDE 3% 118 ML BOTTLE TP SCH ×2 (08:09→20:13)
[2018-02-12] MEDS: Z GUARD REMEDY PASTE 57 GM TUBE TOP SCH ×2 (08:09→20:13)
[2018-02-12] MEDS: TRIAMCINOLONE ACET 0.1% OINT 60 GM TUBE TP SCH ×2 (08:09→20:14)
[2018-02-12 08:10] VITALS: BP 120/82
[2018-02-12] MEDS: NYSTATIN CREAM 30 GM TUBE TP SCH (08:10)
--- NOTE | 2018-02-12 13:46 | NUR ---
INTERDISCIPLINARY PLAN OF CARE CONFERENCE was held today. Patient's family was invited to the meeting, but they were unable to attend. Dr. Heaton and the Interdisciplinary Team reviewed the current plan of care in detail. RN reported on patient's current medical condition. No major changes were reported. See RN IDT conference notes. See also all other disciplines IDT notes and physician's progress notes for additional details.
--- NOTE | 2018-02-12 17:03 | NUR ---
Pharmacy Update from today's 02/12/18 IDT meeting VS: Temp 98.6 BP 114/88 HR 79 LABS: (from 10/08/17, no new labs) Wbc 5.9H/H 11.8/36.1Plt 278 Na 139K 3.8Cl 105CO2 25BUN/SCr 15/0.8 BS 117 Ca 8.8A1c 5.7TSH 1.375 MEDICATION USE REVIEWED: > Pt is not on any anti-epileptic medications > Pt is on Zoloft 50mg daily for depression m/b episodes of crying; No GDR planned for pt d/t contraindication of persistent cry episodes and repeated failed GDRs in the past (see MD note). Patient had x0 in Dec (previously x0 Jan, x2 Feb, x4 Mar, x0 Apr, x7 May, x0 Jun, x4 July, x0 August, x0 September, x0 October, x0 November) > Pt is on depo-provera [id number] for heavy menstruation, last given 12/30/17 > PRN MED USAGE: (Dec) Tylenol 650mg for mild pain used x3 Tylenol for temp x0 Tylenol 1000mg mod pain x0 [place] severe pain x0 Bisacodyl x0 Imodium x0 Rodriguez flush enema x0 NEW ORDERS NOTED: > Triamcinolone 01% ointment 02/07-02/21 for back lesions Patient was reviewed and discussed in detail with no medication issues at this time. Patient remains stable on current regimen, will continue to follow
[2018-02-12] MEDS: ASCORBIC ACID 500 MG TABLET PO SCH (20:13)
[2018-02-12 20:31] VITALS: BP 121/76
[2018-02-13] MEDS: GLUCERNA 1.2 1000ML LIQUID GT PRN (05:28)
[2018-02-13] MEDS: OMEPRAZOLE 20 MG CAPSULE.DR GT SCH (05:28)
[2018-02-13] MEDS: DOCUSATE SODIUM 100 MG/10 ML LIQUID UDC GT SCH ×2 (08:47→20:33)
[2018-02-13] MEDS: ACIDOPHILUS/BULGARICUS CHEW TAB GT SCH ×2 (08:47→20:33)
[2018-02-13] MEDS: SIMETHICONE 40 MG/0.6 ML, 30ML BOTTLE GT SCH ×3 (08:48→17:34)
[2018-02-13] MEDS: METOPROLOL TARTRATE 50 MG TABLET GT SCH ×2 (08:48→21:00)
[2018-02-13] MEDS: BACLOFEN 20 MG TABLET GT SCH ×4 (08:48→20:33)
[2018-02-13] MEDS: SERTRALINE HCL 50 MG TABLET GT SCH (08:49)
[2018-02-13] MEDS: TRIAMCINOLONE ACET 0.1% OINT 60 GM TUBE TP SCH (08:49)
[2018-02-13] MEDS: HYDROGEN PEROXIDE 3% 118 ML BOTTLE TP SCH ×2 (08:49→20:35)
[2018-02-13] MEDS: Z GUARD REMEDY PASTE 57 GM TUBE TOP SCH ×2 (08:49→20:35)
[2018-02-13] MEDS: NUTRISOURCE FIBER 4 GM PACKET GT SCH ×2 (08:49→20:35)
[2018-02-13 10:54] VITALS: BP 123/84
--- NOTE | 2018-02-13 16:00 | NUR ---
Seen and examined by Dr Ramos dairy consultant regarding pt,s back rashes ,with new orders noted.
[2018-02-13 20:00] VITALS: BP 105/76
[2018-02-13] MEDS: ASCORBIC ACID 500 MG TABLET PO SCH (20:35)
[2018-02-13] MEDS: DIFLUCAN GT SCH (21:00)
--- NOTE | 2018-02-13 23:00 | NUR ---
Started on Diflucan via gt for fungal rash in the back and will start on ciclopirox cream BID X 14 days for back lesions, good skin care done, kept clean and dry.Patient is afebrile andf no signs of any distress noted, will continue monitor.
[2018-02-14] MEDS: GLUCERNA 1.2 1000ML LIQUID GT PRN (03:00)
[2018-02-14] MEDS: OMEPRAZOLE 20 MG CAPSULE.DR GT SCH (05:06)
[2018-02-14] MEDS: MULTIVIT, IRON, MIN NO. 8, FA TABLET GT SCH (05:07)
[2018-02-14 07:37] VITALS: BP 111/73
[2018-02-14] MEDS: DOCUSATE SODIUM 100 MG/10 ML LIQUID UDC GT SCH ×2 (08:27→20:47)
[2018-02-14] MEDS: BACLOFEN 20 MG TABLET GT SCH ×4 (08:27→20:47)
[2018-02-14] MEDS: ACIDOPHILUS/BULGARICUS CHEW TAB GT SCH ×2 (08:27→20:47)
[2018-02-14] MEDS: METOPROLOL TARTRATE 50 MG TABLET GT SCH ×2 (08:27→20:48)
[2018-02-14] MEDS: SERTRALINE HCL 50 MG TABLET GT SCH (08:29)
[2018-02-14] MEDS: SIMETHICONE 40 MG/0.6 ML, 30ML BOTTLE GT SCH ×3 (08:29→17:33)
[2018-02-14] MEDS: CICLOPIROX 0.77% CREAM 30 GM TUBE TP SCH ×2 (08:29→17:33)
[2018-02-14] MEDS: HYDROGEN PEROXIDE 3% 118 ML BOTTLE TP SCH ×2 (08:29→20:49)
[2018-02-14] MEDS: KETOCONAZOLE 2% SHAMPOO 120 ML BOTTLE TP SCH (08:29)
[2018-02-14] MEDS: NUTRISOURCE FIBER 4 GM PACKET GT SCH ×2 (08:29→20:48)
[2018-02-14] MEDS: Z GUARD REMEDY PASTE 57 GM TUBE TOP SCH ×2 (08:29→20:49)
[2018-02-14] MEDS ORDERED: FLUCONAZOLE 100 MG TABLET GT SCH (09:00)
[2018-02-14 20:00] VITALS: BP 102/77
[2018-02-14] MEDS: ASCORBIC ACID 500 MG TABLET PO SCH (20:48)
[2018-02-14] MEDS: DIFLUCAN GT SCH (22:34)
--- NOTE | 2018-02-14 23:55 | NUR ---
Remains on diflucan via gt for fungal rash in the back, no adverse reactions noted, on ciclopirox cream to back for back lesions, good skin care done, kept clean and dry.
[2018-02-15] MEDS: GLUCERNA 1.2 1000ML LIQUID GT PRN (01:00)
[2018-02-15] MEDS: OMEPRAZOLE 20 MG CAPSULE.DR GT SCH (05:15)
[2018-02-15 07:28] VITALS: BP 111/64
[2018-02-15] MEDS: BACLOFEN 20 MG TABLET GT SCH ×4 (08:53→21:16)
[2018-02-15] MEDS: ACIDOPHILUS/BULGARICUS CHEW TAB GT SCH ×2 (08:53→21:15)
[2018-02-15] MEDS: DOCUSATE SODIUM 100 MG/10 ML LIQUID UDC GT SCH ×2 (08:53→21:15)
[2018-02-15] MEDS: CICLOPIROX 0.77% CREAM 30 GM TUBE TP SCH ×2 (08:54→17:30)
[2018-02-15] MEDS: SIMETHICONE 40 MG/0.6 ML, 30ML BOTTLE GT SCH ×3 (08:54→17:30)
[2018-02-15] MEDS: METOPROLOL TARTRATE 50 MG TABLET GT SCH ×2 (08:54→21:16)
[2018-02-15] MEDS: HYDROGEN PEROXIDE 3% 118 ML BOTTLE TP SCH ×2 (08:54→21:19)
[2018-02-15] MEDS: Z GUARD REMEDY PASTE 57 GM TUBE TOP SCH ×2 (08:54→21:19)
[2018-02-15] MEDS: SERTRALINE HCL 50 MG TABLET GT SCH (08:54)
[2018-02-15] MEDS: NUTRISOURCE FIBER 4 GM PACKET GT SCH ×2 (08:54→21:17)
[2018-02-15 20:18] VITALS: BP 115/79
[2018-02-15] MEDS: ASCORBIC ACID 500 MG TABLET PO SCH (21:17)
[2018-02-15] MEDS: DIFLUCAN GT SCH (21:19)
[2018-02-16] MEDS: GLUCERNA 1.2 1000ML LIQUID GT PRN (00:22)
[2018-02-16] MEDS: OMEPRAZOLE 20 MG CAPSULE.DR GT SCH (05:18)
[2018-02-16] MEDS: MULTIVIT, IRON, MIN NO. 8, FA TABLET GT SCH (05:40)
[2018-02-16 08:00] VITALS: BP 120/64
[2018-02-16] MEDS: CICLOPIROX 0.77% CREAM 30 GM TUBE TP SCH ×2 (09:12→17:13)
[2018-02-16] MEDS: ACIDOPHILUS/BULGARICUS CHEW TAB GT SCH ×2 (09:12→21:42)
[2018-02-16] MEDS: NUTRISOURCE FIBER 4 GM PACKET GT SCH ×2 (09:12→21:44)
[2018-02-16] MEDS: SIMETHICONE 40 MG/0.6 ML, 30ML BOTTLE GT SCH ×3 (09:12→17:13)
[2018-02-16] MEDS: HYDROGEN PEROXIDE 3% 118 ML BOTTLE TP SCH ×2 (09:12→21:44)
[2018-02-16] MEDS: METOPROLOL TARTRATE 50 MG TABLET GT SCH ×2 (09:12→21:44)
[2018-02-16] MEDS: DOCUSATE SODIUM 100 MG/10 ML LIQUID UDC GT SCH ×2 (09:12→21:30)
[2018-02-16] MEDS: SERTRALINE HCL 50 MG TABLET GT SCH (09:12)
[2018-02-16] MEDS: BACLOFEN 20 MG TABLET GT SCH ×4 (09:12→21:43)
[2018-02-16] MEDS: Z GUARD REMEDY PASTE 57 GM TUBE TOP SCH ×2 (09:12→21:44)
[2018-02-16 20:20] VITALS: BP 123/73
[2018-02-16] MEDS: ASCORBIC ACID 500 MG TABLET PO SCH (21:44)
[2018-02-17] MEDS: GLUCERNA 1.2 1000ML LIQUID GT PRN (00:16)
[2018-02-17] MEDS: OMEPRAZOLE 20 MG CAPSULE.DR GT SCH (05:08)
[2018-02-17 08:00] VITALS: BP 128/79
[2018-02-17] MEDS: BACLOFEN 20 MG TABLET GT SCH ×4 (08:14→21:23)
[2018-02-17] MEDS: DOCUSATE SODIUM 100 MG/10 ML LIQUID UDC GT SCH ×2 (08:14→21:23)
[2018-02-17] MEDS: ACIDOPHILUS/BULGARICUS CHEW TAB GT SCH ×2 (08:14→21:23)
[2018-02-17] MEDS: NUTRISOURCE FIBER 4 GM PACKET GT SCH ×2 (08:15→21:26)
[2018-02-17] MEDS: SIMETHICONE 40 MG/0.6 ML, 30ML BOTTLE GT SCH ×3 (08:15→17:05)
[2018-02-17] MEDS: METOPROLOL TARTRATE 50 MG TABLET GT SCH ×2 (08:15→21:23)
[2018-02-17] MEDS: HYDROGEN PEROXIDE 3% 118 ML BOTTLE TP SCH ×2 (08:15→21:26)
[2018-02-17] MEDS: Z GUARD REMEDY PASTE 57 GM TUBE TOP SCH ×2 (08:15→21:26)
[2018-02-17] MEDS: SERTRALINE HCL 50 MG TABLET GT SCH (08:15)
[2018-02-17] MEDS: CICLOPIROX 0.77% CREAM 30 GM TUBE TP SCH ×2 (08:15→17:05)
--- NOTE | 2018-02-17 12:13 | NUR ---
Seen and examined by Dalia Rodriguez,no new orders noted.
[2018-02-17 19:59] VITALS: BP 126/81
[2018-02-17] MEDS: ASCORBIC ACID 500 MG TABLET PO SCH (21:26)
[2018-02-18] MEDS: GLUCERNA 1.2 1000ML LIQUID GT PRN (00:10)
[2018-02-18] MEDS: OMEPRAZOLE 20 MG CAPSULE.DR GT SCH (06:02)
[2018-02-18] MEDS: MULTIVIT, IRON, MIN NO. 8, FA TABLET GT SCH (06:02)
[2018-02-18 08:02] VITALS: BP 117/78
[2018-02-18] MEDS: DOCUSATE SODIUM 100 MG/10 ML LIQUID UDC GT SCH ×2 (08:26→21:35)
[2018-02-18] MEDS: NUTRISOURCE FIBER 4 GM PACKET GT SCH ×2 (08:27→21:36)
[2018-02-18] MEDS: SERTRALINE HCL 50 MG TABLET GT SCH (08:27)
[2018-02-18] MEDS: ACIDOPHILUS/BULGARICUS CHEW TAB GT SCH ×2 (08:27→21:35)
[2018-02-18] MEDS: BACLOFEN 20 MG TABLET GT SCH ×4 (08:27→21:35)
[2018-02-18] MEDS: Z GUARD REMEDY PASTE 57 GM TUBE TOP SCH ×2 (08:27→21:36)
[2018-02-18] MEDS: METOPROLOL TARTRATE 50 MG TABLET GT SCH ×2 (08:27→21:36)
[2018-02-18] MEDS: SIMETHICONE 40 MG/0.6 ML, 30ML BOTTLE GT SCH ×3 (08:27→16:33)
[2018-02-18] MEDS: HYDROGEN PEROXIDE 3% 118 ML BOTTLE TP SCH ×2 (08:28→21:36)
[2018-02-18] MEDS: CICLOPIROX 0.77% CREAM 30 GM TUBE TP SCH ×2 (08:28→16:34)
[2018-02-18] MEDS: KETOCONAZOLE 2% SHAMPOO 120 ML BOTTLE TP SCH (08:28)
--- NOTE | 2018-02-18 16:42 | NUR ---
Patient seen today by dentist, Dr. Waggoner, for her annual dental cleaning. See dental notes for details.
[2018-02-18 19:44] VITALS: BP 112/76
[2018-02-18 19:48] VITALS: BP 112/76
[2018-02-18] MEDS: ASCORBIC ACID 500 MG TABLET PO SCH (21:36)
[2018-02-19] MEDS: GLUCERNA 1.2 1000ML LIQUID GT PRN (01:00)
[2018-02-19] MEDS: OMEPRAZOLE 20 MG CAPSULE.DR GT SCH (06:21)
[2018-02-19 08:00] VITALS: BP 111/78
[2018-02-19] MEDS: BACLOFEN 20 MG TABLET GT SCH ×4 (08:41→21:23)
[2018-02-19] MEDS: ACIDOPHILUS/BULGARICUS CHEW TAB GT SCH ×2 (08:41→21:23)
[2018-02-19] MEDS: DOCUSATE SODIUM 100 MG/10 ML LIQUID UDC GT SCH ×2 (08:41→21:22)
[2018-02-19] MEDS: METOPROLOL TARTRATE 50 MG TABLET GT SCH ×2 (08:42→21:23)
[2018-02-19] MEDS: HYDROGEN PEROXIDE 3% 118 ML BOTTLE TP SCH ×2 (08:42→21:25)
[2018-02-19] MEDS: SERTRALINE HCL 50 MG TABLET GT SCH (08:42)
[2018-02-19] MEDS: SIMETHICONE 40 MG/0.6 ML, 30ML BOTTLE GT SCH ×3 (08:42→17:15)
[2018-02-19] MEDS: NUTRISOURCE FIBER 4 GM PACKET GT SCH ×2 (08:42→21:24)
[2018-02-19] MEDS: Z GUARD REMEDY PASTE 57 GM TUBE TOP SCH ×2 (08:42→21:25)
[2018-02-19] MEDS: CICLOPIROX 0.77% CREAM 30 GM TUBE TP SCH ×2 (09:00→17:15)
[2018-02-19] MEDS ORDERED: INFLUENZA VACCINE 2018-2019 0.5 ML DISP.SYRIN IM ONE ×2 (17:15→21:00)
[2018-02-19 19:40] VITALS: BP 114/76
[2018-02-19] MEDS: ACETAMINOPHEN 650 MG/20 ML UDC- SA PATIENTS-PAIN ONLY GT PRN (21:00)
[2018-02-19] MEDS: ASCORBIC ACID 500 MG TABLET PO SCH (21:25)
--- NOTE | 2018-02-19 22:35 | NUR ---
Flu vaccine was given today, no adverse reactions noted, afebrile, no signs of any distress noted,will continue monitor.
[2018-02-20] MEDS: GLUCERNA 1.2 1000ML LIQUID GT PRN (02:00)
[2018-02-20] MEDS: OMEPRAZOLE 20 MG CAPSULE.DR GT SCH (05:57)
[2018-02-20] MEDS: MULTIVIT, IRON, MIN NO. 8, FA TABLET GT SCH (05:57)
[2018-02-20] MEDS: DOCUSATE SODIUM 100 MG/10 ML LIQUID UDC GT SCH ×2 (08:03→20:49)
[2018-02-20] MEDS: ACIDOPHILUS/BULGARICUS CHEW TAB GT SCH ×2 (08:03→20:49)
[2018-02-20] MEDS: BACLOFEN 20 MG TABLET GT SCH ×4 (08:04→20:49)
[2018-02-20] MEDS: METOPROLOL TARTRATE 50 MG TABLET GT SCH ×2 (08:06→20:50)
[2018-02-20] MEDS: NUTRISOURCE FIBER 4 GM PACKET GT SCH ×2 (08:09→20:50)
[2018-02-20] MEDS: Z GUARD REMEDY PASTE 57 GM TUBE TOP SCH ×2 (08:10→20:51)
[2018-02-20] MEDS: SERTRALINE HCL 50 MG TABLET GT SCH (08:10)
[2018-02-20] MEDS: SIMETHICONE 40 MG/0.6 ML, 30ML BOTTLE GT SCH ×3 (08:12→16:14)
[2018-02-20] MEDS: HYDROGEN PEROXIDE 3% 118 ML BOTTLE TP SCH ×2 (08:12→20:51)
[2018-02-20 08:13] VITALS: BP 105/74
[2018-02-20] MEDS: CICLOPIROX 0.77% CREAM 30 GM TUBE TP SCH ×2 (08:13→16:15)
--- NOTE | 2018-02-20 16:17 | NUR ---
pt afebrile,no adverse reaction from the flu vaccine,will continue to monitor.
--- NOTE | 2018-02-20 18:00 | NUR ---
Seen by Dr Heaton,no new orders.
[2018-02-20 19:59] VITALS: BP 124/83
[2018-02-20] MEDS: ASCORBIC ACID 500 MG TABLET PO SCH (20:51)
[2018-02-20] MEDS: ACETAMINOPHEN 650 MG/20 ML UDC- SA PATIENTS-PAIN ONLY GT PRN (20:59)
--- NOTE | 2018-02-20 23:17 | NUR ---
S/p Flu vaccine, afebrile, no adverse reactions noted, no signs of any distress.
[2018-02-21] MEDS: GLUCERNA 1.2 1000ML LIQUID GT PRN (05:00)
[2018-02-21] MEDS: OMEPRAZOLE 20 MG CAPSULE.DR GT SCH (05:27)
[2018-02-21] MEDS: DOCUSATE SODIUM 100 MG/10 ML LIQUID UDC GT SCH ×2 (09:58→20:12)
[2018-02-21] MEDS: METOPROLOL TARTRATE 50 MG TABLET GT SCH ×2 (09:58→20:13)
[2018-02-21] MEDS: ACIDOPHILUS/BULGARICUS CHEW TAB GT SCH ×2 (09:58→20:12)
[2018-02-21] MEDS: BACLOFEN 20 MG TABLET GT SCH ×4 (09:58→20:13)
[2018-02-21] MEDS: SIMETHICONE 40 MG/0.6 ML, 30ML BOTTLE GT SCH ×3 (09:58→17:17)
[2018-02-21] MEDS: NUTRISOURCE FIBER 4 GM PACKET GT SCH ×2 (09:59→20:13)
[2018-02-21] MEDS: Z GUARD REMEDY PASTE 57 GM TUBE TOP SCH ×2 (09:59→20:15)
[2018-02-21] MEDS: SERTRALINE HCL 50 MG TABLET GT SCH (09:59)
[2018-02-21] MEDS: CICLOPIROX 0.77% CREAM 30 GM TUBE TP SCH ×2 (09:59→17:17)
[2018-02-21] MEDS: HYDROGEN PEROXIDE 3% 118 ML BOTTLE TP SCH ×2 (09:59→20:15)
[2018-02-21 11:03] VITALS: BP 121/81
--- NOTE | 2018-02-21 16:54 | NUR ---
STATUS POST FLU VACCINATION, PATIENT IS AFEBRILE WITH NO ACUTE DISTRESS NOTED. WILL CONTINUE TO MONITOR.
[2018-02-21 19:48] VITALS: BP 111/79
[2018-02-21] MEDS: ASCORBIC ACID 500 MG TABLET PO SCH (20:13)
--- NOTE | 2018-02-21 23:35 | NUR ---
S/p Flu vaccine administration, afebrile, no adverse reactions noted, no redness or swelling on injection site, no signs of any distress noted, will continue monitor.
[2018-02-22] MEDS: GLUCERNA 1.2 1000ML LIQUID GT PRN (05:00)
[2018-02-22] MEDS: OMEPRAZOLE 20 MG CAPSULE.DR GT SCH (05:06)
[2018-02-22] MEDS: MULTIVIT, IRON, MIN NO. 8, FA TABLET GT SCH (05:06)
[2018-02-22] MEDS: BACLOFEN 20 MG TABLET GT SCH ×4 (08:50→20:45)
[2018-02-22] MEDS: DOCUSATE SODIUM 100 MG/10 ML LIQUID UDC GT SCH ×2 (08:50→20:45)
[2018-02-22] MEDS: ACIDOPHILUS/BULGARICUS CHEW TAB GT SCH ×2 (08:50→20:45)
[2018-02-22] MEDS: METOPROLOL TARTRATE 50 MG TABLET GT SCH ×2 (08:50→20:48)
[2018-02-22] MEDS: CICLOPIROX 0.77% CREAM 30 GM TUBE TP SCH ×2 (08:51→16:59)
[2018-02-22] MEDS: SIMETHICONE 40 MG/0.6 ML, 30ML BOTTLE GT SCH ×3 (08:51→16:59)
[2018-02-22] MEDS: Z GUARD REMEDY PASTE 57 GM TUBE TOP SCH ×2 (08:51→20:47)
[2018-02-22] MEDS: HYDROGEN PEROXIDE 3% 118 ML BOTTLE TP SCH ×2 (08:51→20:47)
[2018-02-22] MEDS: SERTRALINE HCL 50 MG TABLET GT SCH (08:51)
[2018-02-22] MEDS: NUTRISOURCE FIBER 4 GM PACKET GT SCH ×2 (08:51→20:45)
[2018-02-22 14:13] VITALS: BP 114/77
[2018-02-22 19:51] VITALS: BP 126/85
[2018-02-22] MEDS: ASCORBIC ACID 500 MG TABLET PO SCH (20:45)
[2018-02-23] MEDS: GLUCERNA 1.2 1000ML LIQUID GT PRN (05:15)
[2018-02-23] MEDS: OMEPRAZOLE 20 MG CAPSULE.DR GT SCH (05:15)
[2018-02-23] MEDS: DOCUSATE SODIUM 100 MG/10 ML LIQUID UDC GT SCH ×2 (09:09→20:48)
[2018-02-23] MEDS: BACLOFEN 20 MG TABLET GT SCH ×4 (09:10→20:49)
[2018-02-23] MEDS: ACIDOPHILUS/BULGARICUS CHEW TAB GT SCH ×2 (09:10→20:49)
[2018-02-23] MEDS: METOPROLOL TARTRATE 50 MG TABLET GT SCH ×2 (09:11→20:49)
[2018-02-23] MEDS: Z GUARD REMEDY PASTE 57 GM TUBE TOP SCH ×2 (09:13→20:49)
[2018-02-23] MEDS: NUTRISOURCE FIBER 4 GM PACKET GT SCH ×2 (09:13→20:49)
[2018-02-23] MEDS: CICLOPIROX 0.77% CREAM 30 GM TUBE TP SCH ×2 (09:13→16:45)
[2018-02-23] MEDS: HYDROGEN PEROXIDE 3% 118 ML BOTTLE TP SCH ×2 (09:13→20:50)
[2018-02-23] MEDS: SERTRALINE HCL 50 MG TABLET GT SCH (09:13)
[2018-02-23] MEDS: SIMETHICONE 40 MG/0.6 ML, 30ML BOTTLE GT SCH ×3 (09:17→16:45)
[2018-02-23 12:15] VITALS: BP 112/76
[2018-02-23] MEDS: HYDROCODONE/APAP 5-325MG TABLET GT PRN (16:45)
[2018-02-23 20:00] VITALS: BP 111/74
[2018-02-23] MEDS: ASCORBIC ACID 500 MG TABLET PO SCH (20:49)
[2018-02-24] MEDS: GLUCERNA 1.2 1000ML LIQUID GT PRN (01:30)
[2018-02-24] MEDS: MULTIVIT, IRON, MIN NO. 8, FA TABLET GT SCH (05:23)
[2018-02-24] MEDS: OMEPRAZOLE 20 MG CAPSULE.DR GT SCH (05:23)
[2018-02-24 08:00] VITALS: BP 120/76
[2018-02-24] MEDS: METOPROLOL TARTRATE 50 MG TABLET GT SCH ×2 (08:02→20:34)
[2018-02-24] MEDS: SIMETHICONE 40 MG/0.6 ML, 30ML BOTTLE GT SCH ×3 (08:02→16:00)
[2018-02-24] MEDS: ACIDOPHILUS/BULGARICUS CHEW TAB GT SCH ×2 (08:02→20:33)
[2018-02-24] MEDS: Z GUARD REMEDY PASTE 57 GM TUBE TOP SCH ×2 (08:02→20:34)
[2018-02-24] MEDS: BACLOFEN 20 MG TABLET GT SCH ×4 (08:02→20:33)
[2018-02-24] MEDS: NUTRISOURCE FIBER 4 GM PACKET GT SCH ×2 (08:02→20:34)
[2018-02-24] MEDS: HYDROGEN PEROXIDE 3% 118 ML BOTTLE TP SCH ×2 (08:02→20:34)
[2018-02-24] MEDS: DOCUSATE SODIUM 100 MG/10 ML LIQUID UDC GT SCH ×2 (08:02→20:33)
[2018-02-24] MEDS: SERTRALINE HCL 50 MG TABLET GT SCH (08:02)
[2018-02-24] MEDS: CICLOPIROX 0.77% CREAM 30 GM TUBE TP SCH ×2 (08:02→16:01)
[2018-02-24 19:55] VITALS: BP 112/79
[2018-02-24] MEDS: ASCORBIC ACID 500 MG TABLET PO SCH (20:34)
[2018-02-25] MEDS: GLUCERNA 1.2 1000ML LIQUID GT PRN (01:30)
[2018-02-25] MEDS: OMEPRAZOLE 20 MG CAPSULE.DR GT SCH (06:20)
[2018-02-25 08:05] VITALS: BP 103/76
[2018-02-25] MEDS: DOCUSATE SODIUM 100 MG/10 ML LIQUID UDC GT SCH ×2 (08:17→20:07)
[2018-02-25] MEDS: ACIDOPHILUS/BULGARICUS CHEW TAB GT SCH ×2 (08:17→20:07)
[2018-02-25] MEDS: BACLOFEN 20 MG TABLET GT SCH ×4 (08:17→20:07)
[2018-02-25] MEDS: METOPROLOL TARTRATE 50 MG TABLET GT SCH ×2 (08:19→20:07)
[2018-02-25] MEDS: SIMETHICONE 40 MG/0.6 ML, 30ML BOTTLE GT SCH ×3 (08:19→16:56)
[2018-02-25] MEDS: SERTRALINE HCL 50 MG TABLET GT SCH (08:20)
[2018-02-25] MEDS: HYDROGEN PEROXIDE 3% 118 ML BOTTLE TP SCH ×2 (08:20→20:08)
[2018-02-25] MEDS: Z GUARD REMEDY PASTE 57 GM TUBE TOP SCH ×2 (08:20→20:08)
[2018-02-25] MEDS: CICLOPIROX 0.77% CREAM 30 GM TUBE TP SCH ×2 (08:20→16:56)
[2018-02-25] MEDS: NUTRISOURCE FIBER 4 GM PACKET GT SCH ×2 (08:20→20:07)
[2018-02-25 19:47] VITALS: BP 111/83
[2018-02-25] MEDS: ASCORBIC ACID 500 MG TABLET PO SCH (20:07)
[2018-02-26] MEDS: OMEPRAZOLE 20 MG CAPSULE.DR GT SCH (05:08)
[2018-02-26] MEDS: GLUCERNA 1.2 1000ML LIQUID GT PRN (05:09)
[2018-02-26] MEDS: MULTIVIT, IRON, MIN NO. 8, FA TABLET GT SCH (05:30)
[2018-02-26 08:05] VITALS: BP 137/84
[2018-02-26] MEDS: ACIDOPHILUS/BULGARICUS CHEW TAB GT SCH ×2 (09:28→21:11)
[2018-02-26] MEDS: DOCUSATE SODIUM 100 MG/10 ML LIQUID UDC GT SCH ×2 (09:28→21:10)
[2018-02-26] MEDS: METOPROLOL TARTRATE 50 MG TABLET GT SCH ×2 (09:29→21:13)
[2018-02-26] MEDS: SIMETHICONE 40 MG/0.6 ML, 30ML BOTTLE GT SCH ×3 (09:29→17:21)
[2018-02-26] MEDS: BACLOFEN 20 MG TABLET GT SCH ×4 (09:29→21:11)
[2018-02-26] MEDS: NUTRISOURCE FIBER 4 GM PACKET GT SCH ×2 (09:30→21:24)
[2018-02-26] MEDS: Z GUARD REMEDY PASTE 57 GM TUBE TOP SCH ×2 (09:30→21:24)
[2018-02-26] MEDS: SERTRALINE HCL 50 MG TABLET GT SCH (09:30)
[2018-02-26] MEDS: CICLOPIROX 0.77% CREAM 30 GM TUBE TP SCH ×2 (09:30→17:21)
[2018-02-26] MEDS: HYDROGEN PEROXIDE 3% 118 ML BOTTLE TP SCH ×2 (09:30→21:24)
[2018-02-26 19:42] VITALS: BP 112/80
[2018-02-26] MEDS: ASCORBIC ACID 500 MG TABLET PO SCH (21:24)
[2018-02-27] MEDS: GLUCERNA 1.2 1000ML LIQUID GT PRN (01:06)
[2018-02-27] MEDS: OMEPRAZOLE 20 MG CAPSULE.DR GT SCH (05:14)
[2018-02-27] MEDS: DOCUSATE SODIUM 100 MG/10 ML LIQUID UDC GT SCH ×2 (07:49→20:22)
[2018-02-27] MEDS: Z GUARD REMEDY PASTE 57 GM TUBE TOP SCH ×2 (07:51→20:24)
[2018-02-27] MEDS: HYDROGEN PEROXIDE 3% 118 ML BOTTLE TP SCH ×2 (07:51→20:24)
[2018-02-27] MEDS: SERTRALINE HCL 50 MG TABLET GT SCH (07:51)
[2018-02-27] MEDS: METOPROLOL TARTRATE 50 MG TABLET GT SCH ×2 (07:52→20:23)
[2018-02-27] MEDS: NUTRISOURCE FIBER 4 GM PACKET GT SCH ×2 (07:52→20:23)
[2018-02-27] MEDS: BACLOFEN 20 MG TABLET GT SCH ×4 (07:53→20:22)
[2018-02-27] MEDS: ACIDOPHILUS/BULGARICUS CHEW TAB GT SCH ×2 (07:56→20:22)
[2018-02-27] MEDS: SIMETHICONE 40 MG/0.6 ML, 30ML BOTTLE GT SCH ×3 (07:59→17:24)
[2018-02-27 08:00] VITALS: BP 120/86
[2018-02-27] MEDS: CICLOPIROX 0.77% CREAM 30 GM TUBE TP SCH ×2 (08:04→17:24)
[2018-02-27 20:16] VITALS: BP 145/84
[2018-02-27] MEDS: ASCORBIC ACID 500 MG TABLET PO SCH (20:24)
[2018-02-27] MEDS: ACETAMINOPHEN 650 MG/20 ML UDC- SA PATIENTS-PAIN ONLY GT PRN (20:26)
[2018-02-28] MEDS: OMEPRAZOLE 20 MG CAPSULE.DR GT SCH (05:32)
[2018-02-28] MEDS: GLUCERNA 1.2 1000ML LIQUID GT PRN (05:33)
[2018-02-28] MEDS: MULTIVIT, IRON, MIN NO. 8, FA TABLET GT SCH (05:33)
[2018-02-28] MEDS: BACLOFEN 20 MG TABLET GT SCH ×4 (09:04→21:00)
[2018-02-28] MEDS: ACIDOPHILUS/BULGARICUS CHEW TAB GT SCH ×2 (09:04→21:00)
[2018-02-28] MEDS: DOCUSATE SODIUM 100 MG/10 ML LIQUID UDC GT SCH ×2 (09:04→21:00)
[2018-02-28] MEDS: SIMETHICONE 40 MG/0.6 ML, 30ML BOTTLE GT SCH ×3 (09:05→16:50)
[2018-02-28] MEDS: METOPROLOL TARTRATE 50 MG TABLET GT SCH ×2 (09:06→21:01)
[2018-02-28] MEDS: SERTRALINE HCL 50 MG TABLET GT SCH (09:06)
[2018-02-28] MEDS: NUTRISOURCE FIBER 4 GM PACKET GT SCH ×2 (09:06→21:01)
[2018-02-28] MEDS: Z GUARD REMEDY PASTE 57 GM TUBE TOP SCH ×2 (09:06→21:01)
[2018-02-28] MEDS: HYDROGEN PEROXIDE 3% 118 ML BOTTLE TP SCH ×2 (09:06→21:01)
[2018-02-28 09:09] VITALS: BP 121/72
[2018-02-28] MEDS: ASCORBIC ACID 500 MG TABLET PO SCH (21:01)
[2018-02-28 23:32] VITALS: BP 135/87
[2018-03-01] MEDS: GLUCERNA 1.2 1000ML LIQUID GT PRN (04:36)
[2018-03-01] MEDS: OMEPRAZOLE 20 MG CAPSULE.DR GT SCH (05:33)
[2018-03-01] MEDS: ACIDOPHILUS/BULGARICUS CHEW TAB GT SCH ×2 (08:26→20:55)
[2018-03-01] MEDS: HYDROGEN PEROXIDE 3% 118 ML BOTTLE TP SCH ×2 (08:26→20:56)
[2018-03-01] MEDS: SIMETHICONE 40 MG/0.6 ML, 30ML BOTTLE GT SCH ×3 (08:26→16:12)
[2018-03-01] MEDS: Z GUARD REMEDY PASTE 57 GM TUBE TOP SCH ×2 (08:26→20:56)
[2018-03-01] MEDS: BACLOFEN 20 MG TABLET GT SCH ×4 (08:26→20:55)
[2018-03-01] MEDS: METOPROLOL TARTRATE 50 MG TABLET GT SCH ×2 (08:26→20:56)
[2018-03-01] MEDS: NUTRISOURCE FIBER 4 GM PACKET GT SCH ×2 (08:26→20:56)
[2018-03-01] MEDS: DOCUSATE SODIUM 100 MG/10 ML LIQUID UDC GT SCH ×2 (08:26→20:55)
[2018-03-01] MEDS: SERTRALINE HCL 50 MG TABLET GT SCH (08:26)
[2018-03-01 08:27] VITALS: BP 124/79
[2018-03-01] MEDS: ASCORBIC ACID 500 MG TABLET PO SCH (20:56)
[2018-03-01 23:28] VITALS: BP 126/81
[2018-03-02] MEDS: GLUCERNA 1.2 1000ML LIQUID GT PRN (04:25)
[2018-03-02] MEDS: OMEPRAZOLE 20 MG CAPSULE.DR GT SCH (05:47)
[2018-03-02] MEDS: MULTIVIT, IRON, MIN NO. 8, FA TABLET GT SCH (05:47)
[2018-03-02 08:30] VITALS: BP 130/78
[2018-03-02] MEDS: SERTRALINE HCL 50 MG TABLET GT SCH (09:00)
[2018-03-02] MEDS: HYDROGEN PEROXIDE 3% 118 ML BOTTLE TP SCH ×2 (09:00→21:22)
[2018-03-02] MEDS: Z GUARD REMEDY PASTE 57 GM TUBE TOP SCH ×2 (09:00→21:22)
[2018-03-02] MEDS: DOCUSATE SODIUM 100 MG/10 ML LIQUID UDC GT SCH ×2 (09:57→21:21)
[2018-03-02] MEDS: ACIDOPHILUS/BULGARICUS CHEW TAB GT SCH ×2 (09:59→21:21)
[2018-03-02] MEDS: NUTRISOURCE FIBER 4 GM PACKET GT SCH ×2 (09:59→21:22)
[2018-03-02] MEDS: BACLOFEN 20 MG TABLET GT SCH ×4 (09:59→21:21)
[2018-03-02] MEDS: METOPROLOL TARTRATE 50 MG TABLET GT SCH ×2 (09:59→21:22)
[2018-03-02] MEDS: SIMETHICONE 40 MG/0.6 ML, 30ML BOTTLE GT SCH ×3 (09:59→17:18)
--- NOTE | 2018-03-02 19:10 | NUR ---
Handoff to night nurse, Pepper Weldon RN
[2018-03-02] MEDS: ASCORBIC ACID 500 MG TABLET PO SCH (21:22)
[2018-03-02 22:27] VITALS: BP 114/78
[2018-03-03] MEDS: GLUCERNA 1.2 1000ML LIQUID GT PRN (02:56)
[2018-03-03] MEDS: OMEPRAZOLE 20 MG CAPSULE.DR GT SCH (05:17)
[2018-03-03] MEDS: NUTRISOURCE FIBER 4 GM PACKET GT SCH ×2 (08:50→21:57)
[2018-03-03] MEDS: BACLOFEN 20 MG TABLET GT SCH ×4 (08:50→21:57)
[2018-03-03] MEDS: ACIDOPHILUS/BULGARICUS CHEW TAB GT SCH ×2 (08:50→21:57)
[2018-03-03] MEDS: DOCUSATE SODIUM 100 MG/10 ML LIQUID UDC GT SCH ×2 (08:50→21:57)
[2018-03-03] MEDS: SIMETHICONE 40 MG/0.6 ML, 30ML BOTTLE GT SCH ×3 (08:50→17:21)
[2018-03-03] MEDS: METOPROLOL TARTRATE 50 MG TABLET GT SCH ×2 (08:50→21:57)
[2018-03-03] MEDS: SERTRALINE HCL 50 MG TABLET GT SCH (08:51)
[2018-03-03] MEDS: HYDROGEN PEROXIDE 3% 118 ML BOTTLE TP SCH ×2 (08:51→21:57)
[2018-03-03] MEDS: Z GUARD REMEDY PASTE 57 GM TUBE TOP SCH ×2 (08:51→21:57)
--- NOTE | 2018-03-03 13:00 | NUR ---
Treatment done as ordered pt. tolerated treatment well.
[2018-03-03] MEDS: ASCORBIC ACID 500 MG TABLET PO SCH (21:57)
[2018-03-03 23:35] VITALS: BP 125/75
[2018-03-04] MEDS: GLUCERNA 1.2 1000ML LIQUID GT PRN (04:36)
[2018-03-04] MEDS: MULTIVIT, IRON, MIN NO. 8, FA TABLET GT SCH (05:36)
[2018-03-04] MEDS: OMEPRAZOLE 20 MG CAPSULE.DR GT SCH (05:36)
[2018-03-04] MEDS: ACETAMINOPHEN 650 MG/20 ML UDC- SA PATIENTS-PAIN ONLY GT PRN (05:37)
[2018-03-04 08:00] VITALS: BP 116/76
[2018-03-04] MEDS: SERTRALINE HCL 50 MG TABLET GT SCH (08:49)
[2018-03-04] MEDS: NUTRISOURCE FIBER 4 GM PACKET GT SCH ×2 (08:49→21:33)
[2018-03-04] MEDS: SIMETHICONE 40 MG/0.6 ML, 30ML BOTTLE GT SCH ×3 (08:49→17:50)
[2018-03-04] MEDS: ACIDOPHILUS/BULGARICUS CHEW TAB GT SCH ×2 (08:49→21:33)
[2018-03-04] MEDS: METOPROLOL TARTRATE 50 MG TABLET GT SCH ×2 (08:49→21:33)
[2018-03-04] MEDS: Z GUARD REMEDY PASTE 57 GM TUBE TOP SCH ×2 (08:49→21:33)
[2018-03-04] MEDS: DOCUSATE SODIUM 100 MG/10 ML LIQUID UDC GT SCH ×2 (08:49→21:33)
[2018-03-04] MEDS: BACLOFEN 20 MG TABLET GT SCH ×4 (08:49→21:33)
[2018-03-04] MEDS: HYDROGEN PEROXIDE 3% 118 ML BOTTLE TP SCH ×2 (08:50→21:34)
--- NOTE | 2018-03-04 10:19 | NUR ---
SEEN BY JANY ALMAZAN WITH NEW ORDERS NOTED AND CARRIED OUT.
--- NOTE | 2018-03-04 12:00 | NUR ---
Treatment done as ordered pt.tolerated treatment well.
--- NOTE | 2018-03-04 12:33 | NUR ---
Seen by Dalia CARMICHAEL with no new order. Addendum: 03/04/18 at 1250 by SUMAN CANTRELL RN Orders from Dalia CARMICHAEL carried out, Kub (abdominal distention), cbc, cmp today, dermatology f/u
--- NOTE | 2018-03-04 12:50 | NUR ---
Spoke with Dr. Ramos, new orders given to give Diflucan 150mg pgt daily x3 days for fungal rash.
[2018-03-04 14:50] LABS: BASOPHILS # (AUTO) 0.1 K/uL (0.0-8.0); BASOPHILS % (AUTO) 1.3 % (0.0-2.0); EOSINOPHILS # (AUTO) 0.2 K/uL (0.0-0.7); EOSINOPHILS % (AUTO) 2.2 % (0.0-7.0); HEMATOCRIT 38.9 % (31.2-41.9); HEMOGLOBIN 12.4 g/dL (10.9-14.3); LYMPHOCYTES # (AUTO) 2.6 K/uL (20.0-40.0); LYMPHOCYTES % (AUTO) 30.9 % (20.5-51.5); MEAN CORPUSCULAR HEMOGLOBIN 22.8 uug (24.7-32.8); MEAN CORPUSCULAR HGB CONC 32 g/dL (32.3-35.6); MEAN CORPUSCULAR VOLUME 71.7 fL (75.5-95.3); MONOCYTES # (AUTO) 0.8 K/uL (2.0-10.0); MONOCYTES % (AUTO) 9.2 % (0.0-11.0); NEUTROPHILS # (AUTO) 4.7 K/uL (1.8-8.9); NEUTROPHILS % (AUTO) 56.4 % (38.5-71.5); PLATELET COUNT (AUTO) 285 K/uL (179-408); RED BLOOD CELL COUNT(AUTO) 5.43 MIL/uL (3.63-4.92); WHITE BLOOD COUNT (AUTO) 8.3 K/uL (3.8-11.8)
--- NOTE | 2018-03-04 14:50 | NUR ---
Kub result reported to Dalia CARMICHAEL. manually disimpacted, large bm resulted, kub in am per PA.
[2018-03-04 15:03] LABS: BILIRUBIN,TOTAL 0.3 mg/dL (0.2-1.0); CREATININE 0.7 mg/dL (0.6-1.3); POTASSIUM 4.2 mmol/L (3.5-5.1); TOTAL PROTEIN, SERUM 8.9 g/dL (6.4-8.2)
[2018-03-04] MEDS: ASCORBIC ACID 500 MG TABLET PO SCH (21:33)
[2018-03-04 22:00] VITALS: BP 109/74
[2018-03-04] MEDS: FLUCONAZOLE 100 MG TABLET GT SCH (22:48)
[2018-03-05] MEDS: GLUCERNA 1.2 1000ML LIQUID GT PRN (02:47)
[2018-03-05] MEDS: OMEPRAZOLE 20 MG CAPSULE.DR GT SCH (05:30)
[2018-03-05 08:00] VITALS: BP 138/84
[2018-03-05] MEDS: HYDROGEN PEROXIDE 3% 118 ML BOTTLE TP SCH ×2 (09:17→21:47)
[2018-03-05] MEDS: SIMETHICONE 40 MG/0.6 ML, 30ML BOTTLE GT SCH ×3 (09:17→17:31)
[2018-03-05] MEDS: FLUCONAZOLE 100 MG TABLET GT SCH (09:17)
[2018-03-05] MEDS: METOPROLOL TARTRATE 50 MG TABLET GT SCH ×2 (09:17→21:47)
[2018-03-05] MEDS: Z GUARD REMEDY PASTE 57 GM TUBE TOP SCH ×2 (09:17→21:47)
[2018-03-05] MEDS: SERTRALINE HCL 50 MG TABLET GT SCH (09:17)
[2018-03-05] MEDS: ACIDOPHILUS/BULGARICUS CHEW TAB GT SCH ×2 (09:17→21:45)
[2018-03-05] MEDS: BACLOFEN 20 MG TABLET GT SCH ×4 (09:17→21:46)
[2018-03-05] MEDS: NUTRISOURCE FIBER 4 GM PACKET GT SCH ×2 (09:17→21:47)
[2018-03-05] MEDS: DOCUSATE SODIUM 100 MG/10 ML LIQUID UDC GT SCH ×2 (09:17→21:45)
--- NOTE | 2018-03-05 10:30 | NUR ---
Seen and examined by Dr Heaton,aware of kub results, no new orders.
[2018-03-05 20:37] VITALS: BP 117/78
[2018-03-05] MEDS: ASCORBIC ACID 500 MG TABLET PO SCH (21:47)
[2018-03-05] MEDS: ACETAMINOPHEN 650 MG/20 ML UDC- SA PATIENTS-PAIN ONLY GT PRN (21:48)
[2018-03-06] MEDS: GLUCERNA 1.2 1000ML LIQUID GT PRN (06:00)
[2018-03-06] MEDS: OMEPRAZOLE 20 MG CAPSULE.DR GT SCH (06:10)
[2018-03-06] MEDS: MULTIVIT, IRON, MIN NO. 8, FA TABLET GT SCH (06:10)
[2018-03-06 08:00] VITALS: BP 120/83
[2018-03-06] MEDS: DOCUSATE SODIUM 100 MG/10 ML LIQUID UDC GT SCH ×2 (08:33→21:00)
[2018-03-06] MEDS: FLUCONAZOLE 100 MG TABLET GT SCH (08:38)
[2018-03-06] MEDS: ACIDOPHILUS/BULGARICUS CHEW TAB GT SCH ×2 (08:39→21:00)
[2018-03-06] MEDS: BACLOFEN 20 MG TABLET GT SCH ×4 (08:39→21:00)
[2018-03-06] MEDS: SERTRALINE HCL 50 MG TABLET GT SCH (08:40)
[2018-03-06] MEDS: HYDROGEN PEROXIDE 3% 118 ML BOTTLE TP SCH ×2 (08:40→21:00)
[2018-03-06] MEDS: SIMETHICONE 40 MG/0.6 ML, 30ML BOTTLE GT SCH ×3 (08:40→16:30)
[2018-03-06] MEDS: METOPROLOL TARTRATE 50 MG TABLET GT SCH ×2 (08:40→21:00)
[2018-03-06] MEDS: NUTRISOURCE FIBER 4 GM PACKET GT SCH ×2 (08:40→21:00)
[2018-03-06] MEDS: Z GUARD REMEDY PASTE 57 GM TUBE TOP SCH ×2 (08:40→21:00)
--- NOTE | 2018-03-06 09:00 | NUR ---
Seen and examined by Dr Heaton,no new orders.
[2018-03-06 20:17] VITALS: BP 108/67
[2018-03-06] MEDS: ASCORBIC ACID 500 MG TABLET PO SCH (21:00)
[2018-03-07] MEDS: OMEPRAZOLE 20 MG CAPSULE.DR GT SCH (06:21)
[2018-03-07] MEDS: GLUCERNA 1.2 1000ML LIQUID GT PRN (06:30)
[2018-03-07 08:00] VITALS: BP 119/89
[2018-03-07] MEDS: DOCUSATE SODIUM 100 MG/10 ML LIQUID UDC GT SCH ×2 (08:44→21:00)
[2018-03-07] MEDS: BACLOFEN 20 MG TABLET GT SCH ×4 (08:47→21:00)
[2018-03-07] MEDS: ACIDOPHILUS/BULGARICUS CHEW TAB GT SCH ×2 (08:47→21:00)
[2018-03-07] MEDS: NUTRISOURCE FIBER 4 GM PACKET GT SCH ×2 (08:49→21:00)
[2018-03-07] MEDS: METOPROLOL TARTRATE 50 MG TABLET GT SCH ×2 (08:49→21:00)
[2018-03-07] MEDS: HYDROGEN PEROXIDE 3% 118 ML BOTTLE TP SCH ×2 (08:49→21:00)
[2018-03-07] MEDS: SIMETHICONE 40 MG/0.6 ML, 30ML BOTTLE GT SCH ×3 (08:49→16:17)
[2018-03-07] MEDS: SERTRALINE HCL 50 MG TABLET GT SCH (08:49)
[2018-03-07] MEDS: Z GUARD REMEDY PASTE 57 GM TUBE TOP SCH ×2 (08:49→21:00)
--- NOTE | 2018-03-07 15:08 | NUR ---
SEEN BY ABIEL MORGAN.
--- NOTE | 2018-03-07 15:49 | NUR ---
SEEN BY GLENN MORGAN.
[2018-03-07 19:57] VITALS: BP 117/75
[2018-03-07] MEDS: ASCORBIC ACID 500 MG TABLET PO SCH (21:00)
[2018-03-08] MEDS: MULTIVIT, IRON, MIN NO. 8, FA TABLET GT SCH (06:21)
[2018-03-08] MEDS: OMEPRAZOLE 20 MG CAPSULE.DR GT SCH (06:21)
[2018-03-08 08:00] VITALS: BP 131/80
[2018-03-08] MEDS: SIMETHICONE 40 MG/0.6 ML, 30ML BOTTLE GT SCH ×3 (09:00→16:12)
[2018-03-08] MEDS: NUTRISOURCE FIBER 4 GM PACKET GT SCH ×2 (09:00→20:50)
[2018-03-08] MEDS: DOCUSATE SODIUM 100 MG/10 ML LIQUID UDC GT SCH ×2 (09:00→20:50)
[2018-03-08] MEDS: HYDROGEN PEROXIDE 3% 118 ML BOTTLE TP SCH ×2 (09:00→20:50)
[2018-03-08] MEDS: Z GUARD REMEDY PASTE 57 GM TUBE TOP SCH ×2 (09:00→20:50)
[2018-03-08] MEDS: METOPROLOL TARTRATE 50 MG TABLET GT SCH ×2 (09:00→20:50)
[2018-03-08] MEDS: ACIDOPHILUS/BULGARICUS CHEW TAB GT SCH ×2 (09:00→20:50)
[2018-03-08] MEDS: BACLOFEN 20 MG TABLET GT SCH ×4 (09:00→20:50)
[2018-03-08] MEDS: SERTRALINE HCL 50 MG TABLET GT SCH (09:00)
[2018-03-08 20:05] VITALS: BP 135/89
[2018-03-08] MEDS: ASCORBIC ACID 500 MG TABLET PO SCH (20:50)
--- NOTE | 2018-03-09 03:00 | NUR ---
Patient's back is still with rash, started on Nystatin cream every shift X 14 days and then re-eval, kept skin clean and dry, turned and repositioned, s/p Diflucan via gt for fungal rash, no adverse reactions noted, will continue monitor.
[2018-03-09] MEDS: GLUCERNA 1.2 1000ML LIQUID GT PRN (05:05)
[2018-03-09] MEDS: OMEPRAZOLE 20 MG CAPSULE.DR GT SCH (05:05)
[2018-03-09] MEDS: BACLOFEN 20 MG TABLET GT SCH ×4 (09:36→20:24)
[2018-03-09] MEDS: DOCUSATE SODIUM 100 MG/10 ML LIQUID UDC GT SCH ×2 (09:36→20:24)
[2018-03-09] MEDS: ACIDOPHILUS/BULGARICUS CHEW TAB GT SCH ×2 (09:36→20:24)
[2018-03-09] MEDS: SIMETHICONE 40 MG/0.6 ML, 30ML BOTTLE GT SCH ×3 (09:37→16:50)
[2018-03-09] MEDS: METOPROLOL TARTRATE 50 MG TABLET GT SCH ×2 (09:37→21:00)
[2018-03-09] MEDS: NUTRISOURCE FIBER 4 GM PACKET GT SCH ×2 (09:37→20:24)
[2018-03-09] MEDS: SERTRALINE HCL 50 MG TABLET GT SCH (09:37)
[2018-03-09] MEDS: NYSTATIN CREAM 30 GM TUBE TOP SCH ×2 (09:38→20:24)
[2018-03-09] MEDS: Z GUARD REMEDY PASTE 57 GM TUBE TOP SCH ×2 (09:38→20:25)
[2018-03-09] MEDS: HYDROGEN PEROXIDE 3% 118 ML BOTTLE TP SCH ×2 (09:38→20:25)
[2018-03-09 12:20] VITALS: BP 118/76
[2018-03-09] MEDS: ASCORBIC ACID 500 MG TABLET PO SCH (20:24)
[2018-03-09 20:58] VITALS: BP 132/88
[2018-03-10] MEDS: OMEPRAZOLE 20 MG CAPSULE.DR GT SCH (05:35)
[2018-03-10] MEDS: MULTIVIT, IRON, MIN NO. 8, FA TABLET GT SCH (05:35)
[2018-03-10] MEDS: GLUCERNA 1.2 1000ML LIQUID GT PRN (05:36)
[2018-03-10 08:00] VITALS: BP 131/78
[2018-03-10] MEDS: DOCUSATE SODIUM 100 MG/10 ML LIQUID UDC GT SCH ×2 (08:18→21:24)
[2018-03-10] MEDS: ACIDOPHILUS/BULGARICUS CHEW TAB GT SCH ×2 (08:18→21:24)
[2018-03-10] MEDS: METOPROLOL TARTRATE 50 MG TABLET GT SCH ×2 (08:19→21:24)
[2018-03-10] MEDS: SIMETHICONE 40 MG/0.6 ML, 30ML BOTTLE GT SCH ×3 (08:19→17:14)
[2018-03-10] MEDS: BACLOFEN 20 MG TABLET GT SCH ×4 (08:19→21:24)
[2018-03-10] MEDS: SERTRALINE HCL 50 MG TABLET GT SCH (08:20)
[2018-03-10] MEDS: NYSTATIN CREAM 30 GM TUBE TOP SCH ×2 (08:20→21:25)
[2018-03-10] MEDS: Z GUARD REMEDY PASTE 57 GM TUBE TOP SCH ×2 (08:20→21:25)
[2018-03-10] MEDS: HYDROGEN PEROXIDE 3% 118 ML BOTTLE TP SCH ×2 (08:20→21:25)
[2018-03-10] MEDS: NUTRISOURCE FIBER 4 GM PACKET GT SCH ×2 (08:20→21:25)
[2018-03-10 20:03] VITALS: BP 106/66
[2018-03-10] MEDS: ASCORBIC ACID 500 MG TABLET PO SCH (21:25)
[2018-03-11] MEDS: GLUCERNA 1.2 1000ML LIQUID GT PRN (03:01)
[2018-03-11] MEDS: OMEPRAZOLE 20 MG CAPSULE.DR GT SCH (05:49)
[2018-03-11 08:00] VITALS: BP 118/67
[2018-03-11] MEDS: DOCUSATE SODIUM 100 MG/10 ML LIQUID UDC GT SCH ×2 (08:43→21:35)
[2018-03-11] MEDS: NUTRISOURCE FIBER 4 GM PACKET GT SCH ×2 (08:44→21:36)
[2018-03-11] MEDS: ACIDOPHILUS/BULGARICUS CHEW TAB GT SCH ×2 (08:44→21:35)
[2018-03-11] MEDS: SIMETHICONE 40 MG/0.6 ML, 30ML BOTTLE GT SCH ×3 (08:44→16:41)
[2018-03-11] MEDS: Z GUARD REMEDY PASTE 57 GM TUBE TOP SCH ×2 (08:44→21:36)
[2018-03-11] MEDS: SERTRALINE HCL 50 MG TABLET GT SCH (08:44)
[2018-03-11] MEDS: METOPROLOL TARTRATE 50 MG TABLET GT SCH ×2 (08:44→21:36)
[2018-03-11] MEDS: BACLOFEN 20 MG TABLET GT SCH ×4 (08:44→21:35)
[2018-03-11] MEDS: NYSTATIN CREAM 30 GM TUBE TOP SCH ×2 (08:44→21:36)
[2018-03-11] MEDS: HYDROGEN PEROXIDE 3% 118 ML BOTTLE TP SCH ×2 (08:45→21:37)
--- NOTE | 2018-03-11 13:00 | NUR ---
SEEN BY GLENN MORGAN.
--- NOTE | 2018-03-11 14:39 | NUR ---
SEEN BY ABIEL MORGAN.
[2018-03-11 20:13] VITALS: BP 105/73
[2018-03-11] MEDS: ASCORBIC ACID 500 MG TABLET PO SCH (21:36)
[2018-03-12] MEDS: GLUCERNA 1.2 1000ML LIQUID GT PRN (02:52)
[2018-03-12] MEDS: OMEPRAZOLE 20 MG CAPSULE.DR GT SCH (05:43)
[2018-03-12] MEDS: MULTIVIT, IRON, MIN NO. 8, FA TABLET GT SCH (05:43)
[2018-03-12 08:00] VITALS: BP 107/72
[2018-03-12] MEDS: DOCUSATE SODIUM 100 MG/10 ML LIQUID UDC GT SCH ×2 (09:00→21:01)
[2018-03-12] MEDS: Z GUARD REMEDY PASTE 57 GM TUBE TOP SCH ×2 (09:00→21:01)
[2018-03-12] MEDS: NYSTATIN CREAM 30 GM TUBE TOP SCH ×2 (09:00→21:01)
[2018-03-12] MEDS: HYDROGEN PEROXIDE 3% 118 ML BOTTLE TP SCH ×2 (09:00→21:02)
[2018-03-12] MEDS: METOPROLOL TARTRATE 50 MG TABLET GT SCH ×2 (09:00→21:01)
[2018-03-12] MEDS: NUTRISOURCE FIBER 4 GM PACKET GT SCH ×2 (09:00→21:01)
[2018-03-12] MEDS: BACLOFEN 20 MG TABLET GT SCH ×4 (09:00→21:01)
[2018-03-12] MEDS: SIMETHICONE 40 MG/0.6 ML, 30ML BOTTLE GT SCH ×3 (09:00→17:53)
[2018-03-12] MEDS: SERTRALINE HCL 50 MG TABLET GT SCH (09:00)
[2018-03-12] MEDS: ACIDOPHILUS/BULGARICUS CHEW TAB GT SCH ×2 (09:00→21:01)
--- NOTE | 2018-03-12 15:14 | NUR ---
Pharmacy Update from today's 03/12/18 IDT meeting VS: Temp 98.7 BP 105/73 HR 98 LABS: (from 03/04/18) Wbc 8.3H/H 12.4/38.9Plt 285 Na 138K 4.2Cl 106CO2 24BUN/SCr 16/0.7 BS 119 Ca 9.2 MEDICATION USE REVIEWED: > Pt is not on any anti-epileptic medications > Pt is on Zoloft 50mg daily for depression m/b episodes of crying; No GDR planned for pt d/t contraindication of persistent cry episodes and repeated failed GDRs in the past (see MD note). Patient had x6 in Jan (previously x2 Feb, x4 Mar, x0 Apr, x7 May, x0 Jun, x4 July, x0 August, x0 September, x0 October, x0 November, x0 Dec) > Pt is on depo-provera [id number] for heavy menstruation, last given 12/30/17 > PRN MED USAGE: (Jan) Tylenol 650mg for mild pain used x5 Tylenol for temp x0 Tylenol 1000mg mod pain x3 [place] severe pain x1 Bisacodyl x0 Imodium x0 Rodriguez flush enema x0 NEW ORDERS NOTED: > Nystatin for back rash 03/09 x 14 days > Diflucan 150mg x 3 days for fungal rash 03/04-03/07 > Ciclopirox cream BID x 14 days for back lesions 02/13 > Flu shot received 02/19 Patient was reviewed and discussed in detail with no medication issues at this time. Pt remains on zoloft with no GDR and cry episodes which tend to resurface every several months. No significant change from past trends. Will follow and if continues to be prevalent, may suggest psych re-eval. Will follow
--- NOTE | 2018-03-12 15:44 | NUR ---
INTERDISCIPLINARY PLAN OF CARE CONFERENCE was held today. Patient's family was invited to the meeting, but they were unable to attend. Dr. Heaton and the Interdisciplinary Team reviewed the current plan of care in detail. RN reported on patient's medical condition and recent skin treatments. See RN IDT conference notes. No major changes in condition were reported. See also all other disciplines IDT notes and physician's progress notes for additional details.
[2018-03-12 20:18] VITALS: BP 125/83
[2018-03-12] MEDS: ASCORBIC ACID 500 MG TABLET PO SCH (21:01)
[2018-03-13] MEDS: GLUCERNA 1.2 1000ML LIQUID GT PRN (00:52)
[2018-03-13] MEDS: OMEPRAZOLE 20 MG CAPSULE.DR GT SCH (05:48)
[2018-03-13 08:00] VITALS: BP 107/65
[2018-03-13] MEDS: Z GUARD REMEDY PASTE 57 GM TUBE TOP SCH ×2 (08:59→20:34)
[2018-03-13] MEDS: HYDROGEN PEROXIDE 3% 118 ML BOTTLE TP SCH ×2 (08:59→20:35)
[2018-03-13] MEDS: ACIDOPHILUS/BULGARICUS CHEW TAB GT SCH ×2 (08:59→20:33)
[2018-03-13] MEDS: BACLOFEN 20 MG TABLET GT SCH ×4 (08:59→20:33)
[2018-03-13] MEDS: SERTRALINE HCL 50 MG TABLET GT SCH (08:59)
[2018-03-13] MEDS: NYSTATIN CREAM 30 GM TUBE TOP SCH ×2 (08:59→20:34)
[2018-03-13] MEDS: METOPROLOL TARTRATE 50 MG TABLET GT SCH ×2 (08:59→20:34)
[2018-03-13] MEDS: SIMETHICONE 40 MG/0.6 ML, 30ML BOTTLE GT SCH ×3 (08:59→16:37)
[2018-03-13] MEDS: NUTRISOURCE FIBER 4 GM PACKET GT SCH ×2 (08:59→20:34)
[2018-03-13] MEDS: DOCUSATE SODIUM 100 MG/10 ML LIQUID UDC GT SCH ×2 (08:59→20:33)
[2018-03-13] MEDS ORDERED: ACETAMINOPHEN 650 MG/20 ML UDC- SA PATIENTS-FEVER ONLY GT PRN (14:30)
[2018-03-13 20:00] VITALS: BP 117/79
[2018-03-13] MEDS: ASCORBIC ACID 500 MG TABLET PO SCH (20:34)
[2018-03-14] MEDS: GLUCERNA 1.2 1000ML LIQUID GT PRN ×2 (00:21→22:09)
--- NOTE | 2018-03-14 05:47 | NUR ---
Noted with redness on trach site, cleansed and initiated treatment with triple antibiotic every shift then cover with dry dressing. kept clean and comfortable.
[2018-03-14] MEDS: OMEPRAZOLE 20 MG CAPSULE.DR GT SCH (05:50)
[2018-03-14] MEDS: MULTIVIT, IRON, MIN NO. 8, FA TABLET GT SCH (05:50)
[2018-03-14 08:07] VITALS: BP 131/80
[2018-03-14] MEDS: DOCUSATE SODIUM 100 MG/10 ML LIQUID UDC GT SCH ×2 (08:36→21:58)
[2018-03-14] MEDS: NUTRISOURCE FIBER 4 GM PACKET GT SCH ×2 (08:37→21:59)
[2018-03-14] MEDS: METOPROLOL TARTRATE 50 MG TABLET GT SCH ×2 (08:37→21:59)
[2018-03-14] MEDS: SIMETHICONE 40 MG/0.6 ML, 30ML BOTTLE GT SCH ×3 (08:37→17:06)
[2018-03-14] MEDS: ACIDOPHILUS/BULGARICUS CHEW TAB GT SCH ×2 (08:37→21:58)
[2018-03-14] MEDS: SERTRALINE HCL 50 MG TABLET GT SCH (08:37)
[2018-03-14] MEDS: BACLOFEN 20 MG TABLET GT SCH ×4 (08:37→21:58)
[2018-03-14] MEDS: Z GUARD REMEDY PASTE 57 GM TUBE TOP SCH ×2 (08:38→21:59)
[2018-03-14] MEDS: NYSTATIN CREAM 30 GM TUBE TOP SCH ×2 (08:38→21:59)
[2018-03-14] MEDS: HYDROGEN PEROXIDE 3% 118 ML BOTTLE TP SCH ×2 (08:38→21:59)
[2018-03-14] MEDS: NEOMY/BACITRA/POLYMYXIN B OINT UD PACKET TP SCH ×2 (09:11→21:59)
[2018-03-14] MEDS: MOMETASONE FUROATE TP SCH ×2 (12:19→17:07)
[2018-03-14 20:25] VITALS: BP 130/82
[2018-03-14] MEDS: ASCORBIC ACID 500 MG TABLET PO SCH (21:59)
[2018-03-15] MEDS: OMEPRAZOLE 20 MG CAPSULE.DR GT SCH (06:01)
[2018-03-15] MEDS: Z GUARD REMEDY PASTE 57 GM TUBE TOP SCH ×2 (09:00→21:51)
[2018-03-15] MEDS: NEOMY/BACITRA/POLYMYXIN B OINT UD PACKET TP SCH ×2 (09:00→21:52)
[2018-03-15] MEDS: HYDROGEN PEROXIDE 3% 118 ML BOTTLE TP SCH ×2 (09:00→21:52)
[2018-03-15] MEDS: METOPROLOL TARTRATE 50 MG TABLET GT SCH ×2 (09:00→21:51)
[2018-03-15] MEDS: DOCUSATE SODIUM 100 MG/10 ML LIQUID UDC GT SCH ×2 (09:00→21:52)
[2018-03-15] MEDS: NYSTATIN CREAM 30 GM TUBE TOP SCH ×2 (09:00→21:51)
[2018-03-15] MEDS: SIMETHICONE 40 MG/0.6 ML, 30ML BOTTLE GT SCH ×3 (09:00→16:00)
[2018-03-15] MEDS: NUTRISOURCE FIBER 4 GM PACKET GT SCH ×2 (09:00→21:51)
[2018-03-15] MEDS: ACIDOPHILUS/BULGARICUS CHEW TAB GT SCH ×2 (09:00→21:51)
[2018-03-15] MEDS: MOMETASONE FUROATE TP SCH ×2 (09:00→16:00)
[2018-03-15] MEDS: SERTRALINE HCL 50 MG TABLET GT SCH (09:00)
[2018-03-15] MEDS: BACLOFEN 20 MG TABLET GT SCH ×4 (09:00→21:51)
[2018-03-15 20:54] VITALS: BP 128/80
[2018-03-15] MEDS: ASCORBIC ACID 500 MG TABLET PO SCH (21:51)
[2018-03-15] MEDS: GLUCERNA 1.2 1000ML LIQUID GT PRN (22:57)
[2018-03-16] MEDS: OMEPRAZOLE 20 MG CAPSULE.DR GT SCH (06:14)
[2018-03-16] MEDS: MULTIVIT, IRON, MIN NO. 8, FA TABLET GT SCH (06:14)
[2018-03-16 08:06] VITALS: BP 120/81
[2018-03-16] MEDS: ACIDOPHILUS/BULGARICUS CHEW TAB GT SCH ×2 (08:59→21:46)
[2018-03-16] MEDS: DOCUSATE SODIUM 100 MG/10 ML LIQUID UDC GT SCH ×2 (08:59→21:46)
[2018-03-16] MEDS: BACLOFEN 20 MG TABLET GT SCH ×4 (08:59→21:46)
[2018-03-16] MEDS: HYDROGEN PEROXIDE 3% 118 ML BOTTLE TP SCH ×2 (09:00→21:47)
[2018-03-16] MEDS: SIMETHICONE 40 MG/0.6 ML, 30ML BOTTLE GT SCH ×3 (09:00→16:21)
[2018-03-16] MEDS: NEOMY/BACITRA/POLYMYXIN B OINT UD PACKET TP SCH ×2 (09:00→21:47)
[2018-03-16] MEDS: NUTRISOURCE FIBER 4 GM PACKET GT SCH ×2 (09:00→21:46)
[2018-03-16] MEDS: SERTRALINE HCL 50 MG TABLET GT SCH (09:00)
[2018-03-16] MEDS: METOPROLOL TARTRATE 50 MG TABLET GT SCH ×2 (09:00→21:46)
[2018-03-16] MEDS: Z GUARD REMEDY PASTE 57 GM TUBE TOP SCH ×2 (09:00→21:47)
[2018-03-16] MEDS: NYSTATIN CREAM 30 GM TUBE TOP SCH ×2 (09:00→21:47)
[2018-03-16] MEDS: MOMETASONE FUROATE TP SCH ×2 (09:00→16:21)
[2018-03-16 20:42] VITALS: BP 124/86
[2018-03-16] MEDS: ASCORBIC ACID 500 MG TABLET PO SCH (21:46)
[2018-03-17] MEDS: OMEPRAZOLE 20 MG CAPSULE.DR GT SCH (06:07)
[2018-03-17] MEDS: DOCUSATE SODIUM 100 MG/10 ML LIQUID UDC GT SCH ×2 (09:13→21:00)
[2018-03-17] MEDS: BACLOFEN 20 MG TABLET GT SCH ×4 (09:14→21:00)
[2018-03-17] MEDS: ACIDOPHILUS/BULGARICUS CHEW TAB GT SCH ×2 (09:14→21:00)
[2018-03-17] MEDS: METOPROLOL TARTRATE 50 MG TABLET GT SCH ×2 (09:15→21:00)
[2018-03-17] MEDS: SIMETHICONE 40 MG/0.6 ML, 30ML BOTTLE GT SCH ×3 (09:18→16:17)
[2018-03-17] MEDS: NYSTATIN CREAM 30 GM TUBE TOP SCH ×2 (09:19→21:00)
[2018-03-17] MEDS: Z GUARD REMEDY PASTE 57 GM TUBE TOP SCH ×2 (09:19→21:00)
[2018-03-17] MEDS: NUTRISOURCE FIBER 4 GM PACKET GT SCH ×2 (09:19→21:00)
[2018-03-17] MEDS: SERTRALINE HCL 50 MG TABLET GT SCH (09:19)
[2018-03-17] MEDS: NEOMY/BACITRA/POLYMYXIN B OINT UD PACKET TP SCH ×2 (09:20→21:00)
[2018-03-17] MEDS: HYDROGEN PEROXIDE 3% 118 ML BOTTLE TP SCH ×2 (09:20→21:00)
[2018-03-17] MEDS: MOMETASONE FUROATE TP SCH ×2 (09:20→16:17)
[2018-03-17 11:52] VITALS: BP 125/86
[2018-03-17 20:13] VITALS: BP 119/76
[2018-03-17] MEDS: ASCORBIC ACID 500 MG TABLET PO SCH (21:00)
[2018-03-18] MEDS: OMEPRAZOLE 20 MG CAPSULE.DR GT SCH (06:11)
[2018-03-18] MEDS: MULTIVIT, IRON, MIN NO. 8, FA TABLET GT SCH (06:11)
[2018-03-18 08:00] VITALS: BP 140/92
[2018-03-18] MEDS: DOCUSATE SODIUM 100 MG/10 ML LIQUID UDC GT SCH ×2 (09:27→21:56)
[2018-03-18] MEDS: ACIDOPHILUS/BULGARICUS CHEW TAB GT SCH ×2 (09:28→21:56)
[2018-03-18] MEDS: METOPROLOL TARTRATE 50 MG TABLET GT SCH ×2 (09:29→21:56)
[2018-03-18] MEDS: BACLOFEN 20 MG TABLET GT SCH ×4 (09:29→21:56)
[2018-03-18] MEDS: NUTRISOURCE FIBER 4 GM PACKET GT SCH ×2 (09:30→21:56)
[2018-03-18] MEDS: Z GUARD REMEDY PASTE 57 GM TUBE TOP SCH ×2 (09:30→21:56)
[2018-03-18] MEDS: SERTRALINE HCL 50 MG TABLET GT SCH (09:30)
[2018-03-18] MEDS: SIMETHICONE 40 MG/0.6 ML, 30ML BOTTLE GT SCH ×3 (09:30→17:25)
[2018-03-18] MEDS: HYDROGEN PEROXIDE 3% 118 ML BOTTLE TP SCH ×2 (09:30→21:56)
[2018-03-18] MEDS: NYSTATIN CREAM 30 GM TUBE TOP SCH ×2 (09:30→21:56)
[2018-03-18] MEDS: MOMETASONE FUROATE TP SCH ×2 (09:31→17:25)
[2018-03-18] MEDS: NEOMY/BACITRA/POLYMYXIN B OINT UD PACKET TP SCH ×2 (09:31→21:56)
[2018-03-18] MEDS: ACETAMINOPHEN 650 MG/20 ML UDC- SA PATIENTS-PAIN ONLY GT PRN (13:41)
[2018-03-18] MEDS: ASCORBIC ACID 500 MG TABLET PO SCH (21:56)
[2018-03-19] MEDS: OMEPRAZOLE 20 MG CAPSULE.DR GT SCH (06:45)
[2018-03-19 08:00] VITALS: BP 111/68
[2018-03-19] MEDS: DOCUSATE SODIUM 100 MG/10 ML LIQUID UDC GT SCH ×2 (08:56→21:31)
[2018-03-19] MEDS: SIMETHICONE 40 MG/0.6 ML, 30ML BOTTLE GT SCH ×3 (08:57→17:40)
[2018-03-19] MEDS: BACLOFEN 20 MG TABLET GT SCH ×4 (08:57→21:32)
[2018-03-19] MEDS: ACIDOPHILUS/BULGARICUS CHEW TAB GT SCH ×2 (08:57→21:32)
[2018-03-19] MEDS: METOPROLOL TARTRATE 50 MG TABLET GT SCH ×2 (08:57→21:32)
[2018-03-19] MEDS: NUTRISOURCE FIBER 4 GM PACKET GT SCH ×2 (09:06→21:33)
[2018-03-19] MEDS: NEOMY/BACITRA/POLYMYXIN B OINT UD PACKET TP SCH ×2 (09:07→21:34)
[2018-03-19] MEDS: Z GUARD REMEDY PASTE 57 GM TUBE TOP SCH ×2 (09:07→21:34)
[2018-03-19] MEDS: NYSTATIN CREAM 30 GM TUBE TOP SCH ×2 (09:07→21:33)
[2018-03-19] MEDS: HYDROGEN PEROXIDE 3% 118 ML BOTTLE TP SCH ×2 (09:07→21:34)
[2018-03-19] MEDS: MOMETASONE FUROATE TP SCH ×2 (09:07→17:40)
[2018-03-19] MEDS: SERTRALINE HCL 50 MG TABLET GT SCH (09:07)
[2018-03-19] MEDS: GLUCERNA 1.2 1000ML LIQUID GT PRN (09:14)
[2018-03-19 20:07] VITALS: BP 108/57
[2018-03-19] MEDS: ASCORBIC ACID 500 MG TABLET PO SCH (21:33)
[2018-03-20] MEDS: GLUCERNA 1.2 1000ML LIQUID GT PRN (05:01)
[2018-03-20] MEDS: MULTIVIT, IRON, MIN NO. 8, FA TABLET GT SCH (06:31)
[2018-03-20] MEDS: OMEPRAZOLE 20 MG CAPSULE.DR GT SCH (06:31)
[2018-03-20] MEDS: DOCUSATE SODIUM 100 MG/10 ML LIQUID UDC GT SCH ×2 (09:30→20:57)
[2018-03-20] MEDS: ACIDOPHILUS/BULGARICUS CHEW TAB GT SCH ×2 (09:31→20:57)
[2018-03-20] MEDS: BACLOFEN 20 MG TABLET GT SCH ×4 (09:31→20:57)
[2018-03-20] MEDS: NUTRISOURCE FIBER 4 GM PACKET GT SCH ×2 (09:32→20:58)
[2018-03-20] MEDS: SIMETHICONE 40 MG/0.6 ML, 30ML BOTTLE GT SCH ×3 (09:32→17:22)
[2018-03-20] MEDS: METOPROLOL TARTRATE 50 MG TABLET GT SCH ×2 (09:32→20:58)
[2018-03-20] MEDS: Z GUARD REMEDY PASTE 57 GM TUBE TOP SCH ×2 (09:33→20:59)
[2018-03-20] MEDS: MOMETASONE FUROATE TP SCH ×2 (09:33→17:22)
[2018-03-20] MEDS: SERTRALINE HCL 50 MG TABLET GT SCH (09:33)
[2018-03-20] MEDS: HYDROGEN PEROXIDE 3% 118 ML BOTTLE TP SCH ×2 (09:33→20:59)
[2018-03-20] MEDS: NEOMY/BACITRA/POLYMYXIN B OINT UD PACKET TP SCH ×2 (09:33→20:59)
[2018-03-20] MEDS: NYSTATIN CREAM 30 GM TUBE TOP SCH ×2 (09:33→20:59)
--- NOTE | 2018-03-20 09:54 | NUR ---
Seen by Dr. Heaton with new orders carried out, d/c Imodium, Rodriguez flush, bisacodyl.
[2018-03-20 11:05] VITALS: BP 107/63
[2018-03-20 20:26] VITALS: BP 103/62
[2018-03-20] MEDS: ASCORBIC ACID 500 MG TABLET PO SCH (20:59)
[2018-03-21] MEDS: GLUCERNA 1.2 1000ML LIQUID GT PRN (01:22)
[2018-03-21] MEDS: OMEPRAZOLE 20 MG CAPSULE.DR GT SCH (06:15)
[2018-03-21] MEDS: SIMETHICONE 40 MG/0.6 ML, 30ML BOTTLE GT SCH ×3 (09:00→17:19)
[2018-03-21] MEDS: Z GUARD REMEDY PASTE 57 GM TUBE TOP SCH ×2 (09:00→20:58)
[2018-03-21] MEDS: DOCUSATE SODIUM 100 MG/10 ML LIQUID UDC GT SCH ×2 (09:00→20:54)
[2018-03-21] MEDS: SERTRALINE HCL 50 MG TABLET GT SCH (09:00)
[2018-03-21] MEDS: MOMETASONE FUROATE TP SCH ×2 (09:00→17:19)
[2018-03-21] MEDS: ACIDOPHILUS/BULGARICUS CHEW TAB GT SCH ×2 (09:00→20:55)
[2018-03-21] MEDS: NYSTATIN CREAM 30 GM TUBE TOP SCH ×2 (09:00→20:58)
[2018-03-21] MEDS: NUTRISOURCE FIBER 4 GM PACKET GT SCH ×2 (09:00→20:56)
[2018-03-21] MEDS: BACLOFEN 20 MG TABLET GT SCH ×4 (09:00→20:55)
[2018-03-21] MEDS: METOPROLOL TARTRATE 50 MG TABLET GT SCH ×2 (09:00→20:56)
[2018-03-21] MEDS: HYDROGEN PEROXIDE 3% 118 ML BOTTLE TP SCH ×2 (09:00→20:58)
[2018-03-21 12:07] VITALS: BP 131/65
--- NOTE | 2018-03-21 13:53 | NUR ---
SEEN BY GLENN MORGAN.
--- NOTE | 2018-03-21 15:22 | NUR ---
SEEN AND EXAMINED BY DR. IBRAHIM AND AWARE OF BACK RASH IMPROVEMENT AND NNO.
--- NOTE | 2018-03-21 16:45 | NUR ---
SEEN BY DR. ALEXANDRIA MORGAN.
--- NOTE | 2018-03-21 19:09 | NUR ---
SEEN BY DR. RICHARD MORGAN.
[2018-03-21] MEDS: ASCORBIC ACID 500 MG TABLET PO SCH (20:56)
[2018-03-21 20:57] VITALS: BP 114/77
[2018-03-22] MEDS: GLUCERNA 1.2 1000ML LIQUID GT PRN (02:00)
[2018-03-22] MEDS: MULTIVIT, IRON, MIN NO. 8, FA TABLET GT SCH (05:45)
[2018-03-22] MEDS: OMEPRAZOLE 20 MG CAPSULE.DR GT SCH (05:45)
[2018-03-22] MEDS: BACLOFEN 20 MG TABLET GT SCH ×4 (08:40→20:57)
[2018-03-22] MEDS: DOCUSATE SODIUM 100 MG/10 ML LIQUID UDC GT SCH ×2 (08:40→20:57)
[2018-03-22] MEDS: METOPROLOL TARTRATE 50 MG TABLET GT SCH ×2 (08:40→20:58)
[2018-03-22] MEDS: ACIDOPHILUS/BULGARICUS CHEW TAB GT SCH ×2 (08:40→20:57)
[2018-03-22] MEDS: NYSTATIN CREAM 30 GM TUBE TOP SCH ×2 (08:41→20:58)
[2018-03-22] MEDS: NUTRISOURCE FIBER 4 GM PACKET GT SCH ×2 (08:41→21:00)
[2018-03-22] MEDS: SIMETHICONE 40 MG/0.6 ML, 30ML BOTTLE GT SCH ×3 (08:41→16:18)
[2018-03-22] MEDS: Z GUARD REMEDY PASTE 57 GM TUBE TOP SCH ×2 (08:41→20:58)
[2018-03-22] MEDS: SERTRALINE HCL 50 MG TABLET GT SCH (08:41)
[2018-03-22] MEDS: HYDROGEN PEROXIDE 3% 118 ML BOTTLE TP SCH ×2 (08:42→20:58)
[2018-03-22] MEDS: MOMETASONE FUROATE TP SCH ×2 (09:00→16:18)
--- NOTE | 2018-03-22 10:00 | NUR ---
SEEN BY GLENN OSWALD
[2018-03-22 11:17] VITALS: BP 131/74
[2018-03-22] MEDS: ASCORBIC ACID 500 MG TABLET PO SCH (20:58)
[2018-03-22 22:00] VITALS: BP 121/83
[2018-03-23] MEDS: OMEPRAZOLE 20 MG CAPSULE.DR GT SCH (05:07)
[2018-03-23] MEDS: BACLOFEN 20 MG TABLET GT SCH ×4 (09:16→21:44)
[2018-03-23] MEDS: ACIDOPHILUS/BULGARICUS CHEW TAB GT SCH ×2 (09:16→21:44)
[2018-03-23] MEDS: DOCUSATE SODIUM 100 MG/10 ML LIQUID UDC GT SCH ×2 (09:16→21:44)
[2018-03-23] MEDS: NUTRISOURCE FIBER 4 GM PACKET GT SCH ×2 (09:17→21:44)
[2018-03-23] MEDS: METOPROLOL TARTRATE 50 MG TABLET GT SCH ×2 (09:17→21:44)
[2018-03-23] MEDS: SIMETHICONE 40 MG/0.6 ML, 30ML BOTTLE GT SCH ×3 (09:17→16:43)
[2018-03-23] MEDS: SERTRALINE HCL 50 MG TABLET GT SCH (09:17)
[2018-03-23] MEDS: Z GUARD REMEDY PASTE 57 GM TUBE TOP SCH ×2 (09:18→21:44)
[2018-03-23] MEDS: HYDROGEN PEROXIDE 3% 118 ML BOTTLE TP SCH ×2 (09:18→21:44)
[2018-03-23] MEDS: MOMETASONE FUROATE TP SCH ×2 (09:18→16:43)
[2018-03-23 13:23] VITALS: BP 122/85
[2018-03-23] MEDS: ASCORBIC ACID 500 MG TABLET PO SCH (21:44)
[2018-03-23 22:00] VITALS: BP 112/74
[2018-03-24] MEDS: OMEPRAZOLE 20 MG CAPSULE.DR GT SCH (05:40)
[2018-03-24] MEDS: MULTIVIT, IRON, MIN NO. 8, FA TABLET GT SCH (05:40)
[2018-03-24 08:00] VITALS: BP 113/74
[2018-03-24] MEDS: DOCUSATE SODIUM 100 MG/10 ML LIQUID UDC GT SCH ×2 (08:36→20:46)
[2018-03-24] MEDS: ACIDOPHILUS/BULGARICUS CHEW TAB GT SCH ×2 (08:36→20:47)
[2018-03-24] MEDS: SIMETHICONE 40 MG/0.6 ML, 30ML BOTTLE GT SCH ×3 (08:37→17:30)
[2018-03-24] MEDS: NUTRISOURCE FIBER 4 GM PACKET GT SCH ×2 (08:37→20:47)
[2018-03-24] MEDS: METOPROLOL TARTRATE 50 MG TABLET GT SCH ×2 (08:37→20:47)
[2018-03-24] MEDS: SERTRALINE HCL 50 MG TABLET GT SCH (08:37)
[2018-03-24] MEDS: HYDROGEN PEROXIDE 3% 118 ML BOTTLE TP SCH ×2 (08:37→20:47)
[2018-03-24] MEDS: BACLOFEN 20 MG TABLET GT SCH ×4 (08:37→20:47)
[2018-03-24] MEDS: Z GUARD REMEDY PASTE 57 GM TUBE TOP SCH ×2 (08:37→20:47)
[2018-03-24] MEDS: ASCORBIC ACID 500 MG TABLET PO SCH (20:47)
[2018-03-24 22:00] VITALS: BP 129/84
[2018-03-25] MEDS: OMEPRAZOLE 20 MG CAPSULE.DR GT SCH (05:16)
[2018-03-25] MEDS: SERTRALINE HCL 50 MG TABLET GT SCH (09:56)
[2018-03-25] MEDS: BACLOFEN 20 MG TABLET GT SCH ×4 (09:56→21:16)
[2018-03-25] MEDS: METOPROLOL TARTRATE 50 MG TABLET GT SCH ×2 (09:56→21:16)
[2018-03-25] MEDS: Z GUARD REMEDY PASTE 57 GM TUBE TOP SCH ×2 (09:56→21:16)
[2018-03-25] MEDS: SIMETHICONE 40 MG/0.6 ML, 30ML BOTTLE GT SCH ×3 (09:56→17:01)
[2018-03-25] MEDS: NUTRISOURCE FIBER 4 GM PACKET GT SCH ×2 (09:56→21:16)
[2018-03-25] MEDS: DOCUSATE SODIUM 100 MG/10 ML LIQUID UDC GT SCH ×2 (09:56→21:16)
[2018-03-25] MEDS: ACIDOPHILUS/BULGARICUS CHEW TAB GT SCH ×2 (09:56→21:16)
[2018-03-25] MEDS: HYDROGEN PEROXIDE 3% 118 ML BOTTLE TP SCH ×2 (09:57→21:16)
[2018-03-25 11:39] VITALS: BP 102/70
--- NOTE | 2018-03-25 15:09 | NUR ---
SEEN BY ABIEL MATTHEWS.
--- NOTE | 2018-03-25 15:33 | NUR ---
SEEN BY CITLALI MORGAN.
[2018-03-25 20:36] VITALS: BP 139/83
[2018-03-25] MEDS: ASCORBIC ACID 500 MG TABLET PO SCH (21:16)
[2018-03-26] MEDS: MULTIVIT, IRON, MIN NO. 8, FA TABLET GT SCH (06:30)
[2018-03-26] MEDS: OMEPRAZOLE 20 MG CAPSULE.DR GT SCH (06:30)
[2018-03-26 08:00] VITALS: BP 126/82
[2018-03-26] MEDS: ACIDOPHILUS/BULGARICUS CHEW TAB GT SCH ×2 (09:44→21:38)
[2018-03-26] MEDS: BACLOFEN 20 MG TABLET GT SCH ×4 (09:44→21:38)
[2018-03-26] MEDS: DOCUSATE SODIUM 100 MG/10 ML LIQUID UDC GT SCH ×2 (09:44→21:38)
[2018-03-26] MEDS: SIMETHICONE 40 MG/0.6 ML, 30ML BOTTLE GT SCH ×3 (09:45→17:10)
[2018-03-26] MEDS: METOPROLOL TARTRATE 50 MG TABLET GT SCH ×2 (09:45→21:39)
[2018-03-26] MEDS: Z GUARD REMEDY PASTE 57 GM TUBE TOP SCH ×2 (09:46→21:39)
[2018-03-26] MEDS: NUTRISOURCE FIBER 4 GM PACKET GT SCH ×2 (09:46→21:39)
[2018-03-26] MEDS: SERTRALINE HCL 50 MG TABLET GT SCH (09:46)
[2018-03-26] MEDS: HYDROGEN PEROXIDE 3% 118 ML BOTTLE TP SCH ×2 (09:46→21:39)
[2018-03-26] MEDS: ACETAMINOPHEN 650 MG/20 ML UDC- SA PATIENTS-PAIN ONLY GT PRN (09:47)
[2018-03-26 20:04] VITALS: BP 126/60
[2018-03-26] MEDS: ASCORBIC ACID 500 MG TABLET PO SCH (21:39)
[2018-03-27] MEDS: GLUCERNA 1.2 1000ML LIQUID GT PRN (01:39)
[2018-03-27] MEDS: OMEPRAZOLE 20 MG CAPSULE.DR GT SCH (06:03)
[2018-03-27] MEDS: NUTRISOURCE FIBER 4 GM PACKET GT SCH ×2 (10:30→21:11)
[2018-03-27] MEDS: ACIDOPHILUS/BULGARICUS CHEW TAB GT SCH ×2 (10:30→21:11)
[2018-03-27] MEDS: Z GUARD REMEDY PASTE 57 GM TUBE TOP SCH ×2 (10:30→21:11)
[2018-03-27] MEDS: HYDROGEN PEROXIDE 3% 118 ML BOTTLE TP SCH ×2 (10:30→21:12)
[2018-03-27] MEDS: DOCUSATE SODIUM 100 MG/10 ML LIQUID UDC GT SCH ×2 (10:31→21:11)
[2018-03-27] MEDS: SERTRALINE HCL 50 MG TABLET GT SCH (10:31)
[2018-03-27] MEDS: METOPROLOL TARTRATE 50 MG TABLET GT SCH ×2 (10:32→21:11)
[2018-03-27] MEDS: BACLOFEN 20 MG TABLET GT SCH ×4 (10:32→21:11)
[2018-03-27] MEDS: SIMETHICONE 40 MG/0.6 ML, 30ML BOTTLE GT SCH ×3 (10:35→16:58)
--- NOTE | 2018-03-27 15:28 | NUR ---
DR. MERIDA WAS AWARE OF PT. WITH BACK RASH AND THAT IMPROVED BUT STILL WITH SOME REDNESS (NOT WITH DRY SCALY SKIN ANY MORE,NOT SWOLLEN ANY MORE) AND WITH NNO AT THIS TIME.
[2018-03-27 20:27] VITALS: BP 116/75
[2018-03-27] MEDS: ASCORBIC ACID 500 MG TABLET PO SCH (21:11)
[2018-03-28] MEDS: GLUCERNA 1.2 1000ML LIQUID GT PRN (00:53)
[2018-03-28] MEDS: MULTIVIT, IRON, MIN NO. 8, FA TABLET GT SCH (05:44)
[2018-03-28] MEDS: OMEPRAZOLE 20 MG CAPSULE.DR GT SCH (05:44)
[2018-03-28 08:00] VITALS: BP 118/78
[2018-03-28] MEDS: ACIDOPHILUS/BULGARICUS CHEW TAB GT SCH ×2 (09:03→21:48)
[2018-03-28] MEDS: DOCUSATE SODIUM 100 MG/10 ML LIQUID UDC GT SCH ×2 (09:03→21:48)
[2018-03-28] MEDS: BACLOFEN 20 MG TABLET GT SCH ×4 (09:03→21:48)
[2018-03-28] MEDS: NUTRISOURCE FIBER 4 GM PACKET GT SCH ×2 (09:04→21:49)
[2018-03-28] MEDS: METOPROLOL TARTRATE 50 MG TABLET GT SCH ×2 (09:04→21:49)
[2018-03-28] MEDS: SIMETHICONE 40 MG/0.6 ML, 30ML BOTTLE GT SCH ×3 (09:04→16:47)
[2018-03-28] MEDS: SERTRALINE HCL 50 MG TABLET GT SCH (09:05)
[2018-03-28] MEDS: HYDROGEN PEROXIDE 3% 118 ML BOTTLE TP SCH ×2 (09:05→21:49)
[2018-03-28] MEDS: Z GUARD REMEDY PASTE 57 GM TUBE TOP SCH ×2 (09:05→21:49)
[2018-03-28] MEDS: ASCORBIC ACID 500 MG TABLET PO SCH (21:49)
[2018-03-28 22:30] VITALS: BP 124/73
[2018-03-29] MEDS: GLUCERNA 1.2 1000ML LIQUID GT PRN (01:11)
[2018-03-29] MEDS: OMEPRAZOLE 20 MG CAPSULE.DR GT SCH (05:46)
[2018-03-29 08:00] VITALS: BP 124/74
[2018-03-29] MEDS: BACLOFEN 20 MG TABLET GT SCH ×4 (08:16→21:09)
[2018-03-29] MEDS: SIMETHICONE 40 MG/0.6 ML, 30ML BOTTLE GT SCH ×3 (08:16→17:03)
[2018-03-29] MEDS: DOCUSATE SODIUM 100 MG/10 ML LIQUID UDC GT SCH ×2 (08:16→21:00)
[2018-03-29] MEDS: NUTRISOURCE FIBER 4 GM PACKET GT SCH ×2 (08:16→21:10)
[2018-03-29] MEDS: Z GUARD REMEDY PASTE 57 GM TUBE TOP SCH ×2 (08:16→21:10)
[2018-03-29] MEDS: SERTRALINE HCL 50 MG TABLET GT SCH (08:16)
[2018-03-29] MEDS: METOPROLOL TARTRATE 50 MG TABLET GT SCH ×2 (08:16→21:10)
[2018-03-29] MEDS: HYDROGEN PEROXIDE 3% 118 ML BOTTLE TP SCH ×2 (08:16→21:10)
[2018-03-29] MEDS: ACIDOPHILUS/BULGARICUS CHEW TAB GT SCH ×2 (08:16→21:09)
[2018-03-29 19:54] VITALS: BP 130/89
[2018-03-29] MEDS: ASCORBIC ACID 500 MG TABLET PO SCH (21:10)
[2018-03-30] MEDS: GLUCERNA 1.2 1000ML LIQUID GT PRN (02:14)
[2018-03-30] MEDS: OMEPRAZOLE 20 MG CAPSULE.DR GT SCH (05:18)
[2018-03-30] MEDS: MULTIVIT, IRON, MIN NO. 8, FA TABLET GT SCH (06:24)
[2018-03-30] MEDS: SIMETHICONE 40 MG/0.6 ML, 30ML BOTTLE GT SCH ×3 (09:00→17:15)
[2018-03-30] MEDS: METOPROLOL TARTRATE 50 MG TABLET GT SCH ×2 (09:00→21:00)
[2018-03-30] MEDS: NUTRISOURCE FIBER 4 GM PACKET GT SCH ×2 (09:00→21:00)
[2018-03-30] MEDS: MEDROXYPROGESTERONE ACET IM SCH (09:00)
[2018-03-30] MEDS: DOCUSATE SODIUM 100 MG/10 ML LIQUID UDC GT SCH ×2 (09:00→21:00)
[2018-03-30] MEDS: HYDROGEN PEROXIDE 3% 118 ML BOTTLE TP SCH ×2 (09:00→21:00)
[2018-03-30] MEDS: ACIDOPHILUS/BULGARICUS CHEW TAB GT SCH ×2 (09:00→21:00)
[2018-03-30] MEDS: BACLOFEN 20 MG TABLET GT SCH ×4 (09:00→21:00)
[2018-03-30] MEDS: Z GUARD REMEDY PASTE 57 GM TUBE TOP SCH ×2 (09:00→21:00)
[2018-03-30] MEDS: SERTRALINE HCL 50 MG TABLET GT SCH (09:00)
[2018-03-30 12:05] VITALS: BP 125/60
--- NOTE | 2018-03-30 18:39 | NUR ---
0830 - CALLED [facility] RE: MEDROXYPROGESTERONE 1ML IM Q90 DAYS. MED NOT AVAILABLE ON UNIT. REQUESTED FOR STAT DELIVERY. SPOKE WITH CRAIG. SCHEDULED TO DELIVER TODAY, 03/30 WITH 1530 DELIVERY. WILL CONTINUE TO FOLLOW UP. 1840 - CALLED [facility] FOR FOLLOW UP ON MED. STEPHAN STATED THAT MED IS OUT FOR DELIVERY. SHOULD ARRIVE SOON. CHARGE NURSE AND IN HOUSE PHARMACY MADE AWARE. WILL ENDORSE TO MANAGER SUPPORT NURSE.
[2018-03-30 20:00] VITALS: BP 123/71
[2018-03-30] MEDS: ASCORBIC ACID 500 MG TABLET PO SCH (21:00)
[2018-03-31] MEDS: GLUCERNA 1.2 1000ML LIQUID GT PRN (02:50)
[2018-03-31] MEDS: OMEPRAZOLE 20 MG CAPSULE.DR GT SCH (05:31)
[2018-03-31] MEDS: ACETAMINOPHEN 650 MG/20 ML UDC- SA PATIENTS-PAIN ONLY GT PRN (05:31)
[2018-03-31] MEDS: ACIDOPHILUS/BULGARICUS CHEW TAB GT SCH ×2 (09:12→20:33)
[2018-03-31] MEDS: DOCUSATE SODIUM 100 MG/10 ML LIQUID UDC GT SCH ×2 (09:12→20:33)
[2018-03-31] MEDS: SIMETHICONE 40 MG/0.6 ML, 30ML BOTTLE GT SCH ×3 (09:13→17:20)
[2018-03-31] MEDS: NUTRISOURCE FIBER 4 GM PACKET GT SCH ×2 (09:13→20:34)
[2018-03-31] MEDS: BACLOFEN 20 MG TABLET GT SCH ×4 (09:13→20:33)
[2018-03-31] MEDS: SERTRALINE HCL 50 MG TABLET GT SCH (09:13)
[2018-03-31] MEDS: METOPROLOL TARTRATE 50 MG TABLET GT SCH ×2 (09:13→20:34)
[2018-03-31] MEDS: HYDROGEN PEROXIDE 3% 118 ML BOTTLE TP SCH ×2 (09:13→20:35)
[2018-03-31] MEDS: Z GUARD REMEDY PASTE 57 GM TUBE TOP SCH ×2 (09:13→20:34)
[2018-03-31 09:18] VITALS: BP 148/83
--- NOTE | 2018-03-31 10:52 | NUR ---
Seen and examined by dr St,no new orders.
[2018-03-31] MEDS: MEDROXYPROGESTERONE ACET IM SCH (15:56)
[2018-03-31 20:29] VITALS: BP 122/76
[2018-03-31] MEDS: ASCORBIC ACID 500 MG TABLET PO SCH (20:34)
[2018-04-01] MEDS: GLUCERNA 1.2 1000ML LIQUID GT PRN (02:34)
[2018-04-01] MEDS: OMEPRAZOLE 20 MG CAPSULE.DR GT SCH (05:59)
[2018-04-01] MEDS: MULTIVIT, IRON, MIN NO. 8, FA TABLET GT SCH (05:59)
[2018-04-01 08:13] VITALS: BP 126/77
[2018-04-01] MEDS: ACIDOPHILUS/BULGARICUS CHEW TAB GT SCH ×2 (09:04→21:12)
[2018-04-01] MEDS: BACLOFEN 20 MG TABLET GT SCH ×4 (09:04→21:12)
[2018-04-01] MEDS: DOCUSATE SODIUM 100 MG/10 ML LIQUID UDC GT SCH ×2 (09:04→21:12)
[2018-04-01] MEDS: SIMETHICONE 40 MG/0.6 ML, 30ML BOTTLE GT SCH ×3 (09:05→17:48)
[2018-04-01] MEDS: Z GUARD REMEDY PASTE 57 GM TUBE TOP SCH ×2 (09:05→21:13)
[2018-04-01] MEDS: METOPROLOL TARTRATE 50 MG TABLET GT SCH ×2 (09:05→21:12)
[2018-04-01] MEDS: NUTRISOURCE FIBER 4 GM PACKET GT SCH ×2 (09:05→21:12)
[2018-04-01] MEDS: SERTRALINE HCL 50 MG TABLET GT SCH (09:05)
[2018-04-01] MEDS: HYDROGEN PEROXIDE 3% 118 ML BOTTLE TP SCH ×2 (09:06→21:13)
[2018-04-01 20:42] VITALS: BP 140/74
[2018-04-01] MEDS: ASCORBIC ACID 500 MG TABLET PO SCH (21:12)
[2018-04-02] MEDS: GLUCERNA 1.2 1000ML LIQUID GT PRN (03:02)
[2018-04-02] MEDS: OMEPRAZOLE 20 MG CAPSULE.DR GT SCH (06:04)
[2018-04-02 08:07] VITALS: BP 114/75
[2018-04-02] MEDS: Z GUARD REMEDY PASTE 57 GM TUBE TOP SCH ×2 (09:22→21:48)
[2018-04-02] MEDS: NUTRISOURCE FIBER 4 GM PACKET GT SCH ×2 (09:22→21:48)
[2018-04-02] MEDS: ACIDOPHILUS/BULGARICUS CHEW TAB GT SCH ×2 (09:22→21:47)
[2018-04-02] MEDS: BACLOFEN 20 MG TABLET GT SCH ×4 (09:22→21:47)
[2018-04-02] MEDS: DOCUSATE SODIUM 100 MG/10 ML LIQUID UDC GT SCH ×2 (09:22→21:46)
[2018-04-02] MEDS: SIMETHICONE 40 MG/0.6 ML, 30ML BOTTLE GT SCH ×3 (09:22→17:05)
[2018-04-02] MEDS: HYDROGEN PEROXIDE 3% 118 ML BOTTLE TP SCH ×2 (09:22→21:49)
[2018-04-02] MEDS: METOPROLOL TARTRATE 50 MG TABLET GT SCH ×2 (09:22→21:47)
[2018-04-02] MEDS: SERTRALINE HCL 50 MG TABLET GT SCH (09:22)
[2018-04-02 19:59] VITALS: BP 118/79
[2018-04-02] MEDS: ASCORBIC ACID 500 MG TABLET PO SCH (21:48)
[2018-04-03] MEDS: GLUCERNA 1.2 1000ML LIQUID GT PRN (00:36)
[2018-04-03] MEDS: MULTIVIT, IRON, MIN NO. 8, FA TABLET GT SCH (06:24)
[2018-04-03] MEDS: OMEPRAZOLE 20 MG CAPSULE.DR GT SCH (06:24)
[2018-04-03] MEDS: Z GUARD REMEDY PASTE 57 GM TUBE TOP SCH ×2 (09:30→20:47)
[2018-04-03] MEDS: SERTRALINE HCL 50 MG TABLET GT SCH (09:30)
[2018-04-03] MEDS: ACIDOPHILUS/BULGARICUS CHEW TAB GT SCH ×2 (09:30→20:44)
[2018-04-03] MEDS: DOCUSATE SODIUM 100 MG/10 ML LIQUID UDC GT SCH ×2 (09:30→20:43)
[2018-04-03] MEDS: NUTRISOURCE FIBER 4 GM PACKET GT SCH ×2 (09:30→20:46)
[2018-04-03] MEDS: HYDROGEN PEROXIDE 3% 118 ML BOTTLE TP SCH ×2 (09:30→20:47)
[2018-04-03] MEDS: METOPROLOL TARTRATE 50 MG TABLET GT SCH ×2 (09:30→20:44)
[2018-04-03] MEDS: BACLOFEN 20 MG TABLET GT SCH ×4 (09:30→20:44)
[2018-04-03] MEDS: SIMETHICONE 40 MG/0.6 ML, 30ML BOTTLE GT SCH ×3 (09:30→17:13)
[2018-04-03 11:04] VITALS: BP 130/80
[2018-04-03 20:01] VITALS: BP 124/79
[2018-04-03] MEDS: ASCORBIC ACID 500 MG TABLET PO SCH (20:46)
[2018-04-04] MEDS: GLUCERNA 1.2 1000ML LIQUID GT PRN (01:00)
[2018-04-04] MEDS: OMEPRAZOLE 20 MG CAPSULE.DR GT SCH (05:17)
[2018-04-04] MEDS: ACIDOPHILUS/BULGARICUS CHEW TAB GT SCH ×2 (08:53→20:45)
[2018-04-04] MEDS: DOCUSATE SODIUM 100 MG/10 ML LIQUID UDC GT SCH ×2 (08:53→20:44)
[2018-04-04] MEDS: HYDROGEN PEROXIDE 3% 118 ML BOTTLE TP SCH ×2 (08:54→20:46)
[2018-04-04] MEDS: Z GUARD REMEDY PASTE 57 GM TUBE TOP SCH ×2 (08:54→20:46)
[2018-04-04] MEDS: SIMETHICONE 40 MG/0.6 ML, 30ML BOTTLE GT SCH ×3 (08:54→16:17)
[2018-04-04] MEDS: BACLOFEN 20 MG TABLET GT SCH ×4 (08:54→20:45)
[2018-04-04] MEDS: SERTRALINE HCL 50 MG TABLET GT SCH (08:54)
[2018-04-04] MEDS: NUTRISOURCE FIBER 4 GM PACKET GT SCH ×2 (08:54→20:45)
[2018-04-04] MEDS: METOPROLOL TARTRATE 50 MG TABLET GT SCH ×2 (08:55→20:45)
[2018-04-04] MEDS: BISACODYL 10 MG SUPP.RECT RC PRN (11:16)
[2018-04-04 16:21] VITALS: BP 140/85
[2018-04-04 19:00] VITALS: BP 111/74
[2018-04-04] MEDS: ASCORBIC ACID 500 MG TABLET PO SCH (20:45)
[2018-04-05] MEDS: GLUCERNA 1.2 1000ML LIQUID GT PRN (05:00)
[2018-04-05] MEDS: MULTIVIT, IRON, MIN NO. 8, FA TABLET GT SCH (06:46)
[2018-04-05] MEDS: OMEPRAZOLE 20 MG CAPSULE.DR GT SCH (06:46)
[2018-04-05] MEDS: HYDROGEN PEROXIDE 3% 118 ML BOTTLE TP SCH ×2 (08:57→21:45)
[2018-04-05] MEDS: Z GUARD REMEDY PASTE 57 GM TUBE TOP SCH ×2 (08:57→21:45)
[2018-04-05] MEDS: BACLOFEN 20 MG TABLET GT SCH ×4 (08:57→21:44)
[2018-04-05] MEDS: SERTRALINE HCL 50 MG TABLET GT SCH (08:57)
[2018-04-05] MEDS: ACIDOPHILUS/BULGARICUS CHEW TAB GT SCH ×2 (08:57→21:44)
[2018-04-05] MEDS: SIMETHICONE 40 MG/0.6 ML, 30ML BOTTLE GT SCH ×3 (08:57→16:40)
[2018-04-05] MEDS: METOPROLOL TARTRATE 50 MG TABLET GT SCH ×2 (08:57→21:44)
[2018-04-05] MEDS: NUTRISOURCE FIBER 4 GM PACKET GT SCH ×2 (08:57→21:44)
[2018-04-05] MEDS: DOCUSATE SODIUM 100 MG/10 ML LIQUID UDC GT SCH ×2 (08:57→21:44)
[2018-04-05 11:56] VITALS: BP 134/93
[2018-04-05 20:22] VITALS: BP 114/78
[2018-04-05] MEDS: ASCORBIC ACID 500 MG TABLET PO SCH (21:44)
[2018-04-06] MEDS: GLUCERNA 1.2 1000ML LIQUID GT PRN (02:46)
[2018-04-06] MEDS: OMEPRAZOLE 20 MG CAPSULE.DR GT SCH (05:28)
[2018-04-06] MEDS: SIMETHICONE 40 MG/0.6 ML, 30ML BOTTLE GT SCH ×3 (09:20→16:50)
[2018-04-06] MEDS: ACIDOPHILUS/BULGARICUS CHEW TAB GT SCH ×2 (09:20→20:08)
[2018-04-06] MEDS: NUTRISOURCE FIBER 4 GM PACKET GT SCH ×2 (09:20→20:08)
[2018-04-06] MEDS: HYDROGEN PEROXIDE 3% 118 ML BOTTLE TP SCH ×2 (09:20→20:09)
[2018-04-06] MEDS: METOPROLOL TARTRATE 50 MG TABLET GT SCH ×2 (09:20→20:08)
[2018-04-06] MEDS: BACLOFEN 20 MG TABLET GT SCH ×4 (09:20→20:08)
[2018-04-06] MEDS: Z GUARD REMEDY PASTE 57 GM TUBE TOP SCH ×2 (09:20→20:08)
[2018-04-06] MEDS: DOCUSATE SODIUM 100 MG/10 ML LIQUID UDC GT SCH ×2 (09:20→21:00)
[2018-04-06] MEDS: SERTRALINE HCL 50 MG TABLET GT SCH (09:20)
[2018-04-06 12:06] VITALS: BP 143/99
[2018-04-06] MEDS: ASCORBIC ACID 500 MG TABLET PO SCH (20:08)
[2018-04-06 20:11] VITALS: BP 123/78
[2018-04-07] MEDS: MULTIVIT, IRON, MIN NO. 8, FA TABLET GT SCH (05:32)
[2018-04-07] MEDS: OMEPRAZOLE 20 MG CAPSULE.DR GT SCH (05:34)
[2018-04-07] MEDS: ACIDOPHILUS/BULGARICUS CHEW TAB GT SCH ×2 (09:22→21:51)
[2018-04-07] MEDS: BACLOFEN 20 MG TABLET GT SCH ×4 (09:22→21:51)
[2018-04-07] MEDS: SERTRALINE HCL 50 MG TABLET GT SCH (09:23)
[2018-04-07] MEDS: Z GUARD REMEDY PASTE 57 GM TUBE TOP SCH ×2 (09:23→21:51)
[2018-04-07] MEDS: SIMETHICONE 40 MG/0.6 ML, 30ML BOTTLE GT SCH ×3 (09:23→17:15)
[2018-04-07] MEDS: METOPROLOL TARTRATE 50 MG TABLET GT SCH ×2 (09:23→21:51)
[2018-04-07] MEDS: NUTRISOURCE FIBER 4 GM PACKET GT SCH ×2 (09:23→21:51)
[2018-04-07] MEDS: DOCUSATE SODIUM 100 MG/10 ML LIQUID UDC GT SCH ×2 (09:23→21:00)
[2018-04-07] MEDS: HYDROGEN PEROXIDE 3% 118 ML BOTTLE TP SCH ×2 (09:23→21:51)
--- NOTE | 2018-04-07 12:31 | NUR ---
SEEN BY GLENN MORGAN.
[2018-04-07 20:21] VITALS: BP 125/79
[2018-04-07] MEDS: ASCORBIC ACID 500 MG TABLET PO SCH (21:51)
[2018-04-08] MEDS: OMEPRAZOLE 20 MG CAPSULE.DR GT SCH (05:04)
[2018-04-08] MEDS: ACETAMINOPHEN 650 MG/20 ML UDC- SA PATIENTS-PAIN ONLY GT PRN (05:05)
--- NOTE | 2018-04-08 05:16 | NUR ---
PRN Tylenol given for pain. Will continue to monitor
[2018-04-08] MEDS: DOCUSATE SODIUM 100 MG/10 ML LIQUID UDC GT SCH ×2 (08:48→21:16)
[2018-04-08] MEDS: BACLOFEN 20 MG TABLET GT SCH ×4 (08:49→21:17)
[2018-04-08] MEDS: SIMETHICONE 40 MG/0.6 ML, 30ML BOTTLE GT SCH ×3 (08:49→17:29)
[2018-04-08] MEDS: METOPROLOL TARTRATE 50 MG TABLET GT SCH ×2 (08:49→21:18)
[2018-04-08] MEDS: NUTRISOURCE FIBER 4 GM PACKET GT SCH ×2 (08:49→21:17)
[2018-04-08] MEDS: ACIDOPHILUS/BULGARICUS CHEW TAB GT SCH ×2 (08:49→21:16)
[2018-04-08] MEDS: SERTRALINE HCL 50 MG TABLET GT SCH (08:50)
[2018-04-08] MEDS: Z GUARD REMEDY PASTE 57 GM TUBE TOP SCH ×2 (08:50→21:18)
[2018-04-08] MEDS: HYDROGEN PEROXIDE 3% 118 ML BOTTLE TP SCH ×2 (08:50→21:18)
[2018-04-08 11:12] VITALS: BP 129/69
--- NOTE | 2018-04-08 11:28 | NUR ---
SEEN BY GLENN MORGAN.
--- NOTE | 2018-04-08 15:00 | NUR ---
SEEN BY ABIEL MORGAN.
[2018-04-08 20:42] VITALS: BP 130/86
[2018-04-08] MEDS: ASCORBIC ACID 500 MG TABLET PO SCH (21:18)
[2018-04-09] MEDS: MULTIVIT, IRON, MIN NO. 8, FA TABLET GT SCH (06:40)
[2018-04-09] MEDS: OMEPRAZOLE 20 MG CAPSULE.DR GT SCH (06:40)
[2018-04-09] MEDS: DOCUSATE SODIUM 100 MG/10 ML LIQUID UDC GT SCH ×2 (09:05→21:23)
[2018-04-09] MEDS: ACIDOPHILUS/BULGARICUS CHEW TAB GT SCH ×2 (09:05→21:23)
[2018-04-09] MEDS: HYDROGEN PEROXIDE 3% 118 ML BOTTLE TP SCH ×2 (09:06→21:24)
[2018-04-09] MEDS: Z GUARD REMEDY PASTE 57 GM TUBE TOP SCH ×2 (09:06→21:24)
[2018-04-09] MEDS: SIMETHICONE 40 MG/0.6 ML, 30ML BOTTLE GT SCH ×3 (09:06→16:14)
[2018-04-09] MEDS: METOPROLOL TARTRATE 50 MG TABLET GT SCH ×2 (09:06→21:23)
[2018-04-09] MEDS: SERTRALINE HCL 50 MG TABLET GT SCH (09:06)
[2018-04-09] MEDS: BACLOFEN 20 MG TABLET GT SCH ×4 (09:06→21:23)
[2018-04-09] MEDS: NUTRISOURCE FIBER 4 GM PACKET GT SCH ×2 (09:06→21:23)
[2018-04-09 10:43] VITALS: BP 125/87
--- NOTE | 2018-04-09 14:21 | NUR ---
INTERDISCIPLINARY PLAN OF CARE CONFERENCE was held today. Patient's family was unable to attend the meeting. Dr. Heaton and the Interdisciplinary Team reviewed the current plan of care in detail. RN provided updates on patient's medical condition. See RN IDT conference notes. No major changes were reported. See also all other disciplines IDT notes and physician's progress notes for additional details.
--- NOTE | 2018-04-09 17:29 | NUR ---
Pharmacy Update from today's 04/09/18 IDT meeting VS: Temp 97.7 BP 130/86 HR 86 LABS: (from 03/04/18, no new labs) Wbc 8.3H/H 12.4/38.9Plt 285 Na 138K 4.2Cl 106CO2 24BUN/SCr 16/0.7 BS 119 Ca 9.2 MEDICATION USE REVIEWED: > Pt is not on any anti-epileptic medications > Pt is on Zoloft 50mg daily for depression m/b episodes of crying; No GDR planned for pt d/t contraindication of persistent cry episodes and repeated failed GDRs in the past (see MD note). Patient had x7 in Feb (previously x2 Feb, x4 Mar, x0 Apr, x7 May, x0 Jun, x4 July, x0 August, x0 September, x0 October, x0 November, x0 Dec, x 6 Jan) > Pt is on depo-provera [id number] for heavy menstruation, last given 03/31/18 > PRN MED USAGE: (Feb) Tylenol 650mg for mild pain used x6 Tylenol for temp x0 Tylenol 1000mg mod pain x0 [place] severe pain x1 NEW ORDERS NOTED: > Rx rec for d/c [place] flush enema, bisacodyl, immodium prn d/t lack of use. Md agreed and d/c'd 03/20/18 > bisacodyl prn newly reordered later 04/04 Patient was reviewed and discussed in detail with no medication issues at this time. Recent rx recs reported, no other medication changes noted. Will continue follow
[2018-04-09 21:19] VITALS: BP 154/88
[2018-04-09] MEDS: ASCORBIC ACID 500 MG TABLET PO SCH (21:23)
[2018-04-10] MEDS: OMEPRAZOLE 20 MG CAPSULE.DR GT SCH (06:58)
[2018-04-10 08:00] VITALS: BP 125/84
[2018-04-10] MEDS: BACLOFEN 20 MG TABLET GT SCH ×4 (08:55→20:11)
[2018-04-10] MEDS: ACIDOPHILUS/BULGARICUS CHEW TAB GT SCH ×2 (08:55→20:11)
[2018-04-10] MEDS: DOCUSATE SODIUM 100 MG/10 ML LIQUID UDC GT SCH ×2 (08:55→20:11)
[2018-04-10] MEDS: SIMETHICONE 40 MG/0.6 ML, 30ML BOTTLE GT SCH ×3 (08:56→16:59)
[2018-04-10] MEDS: METOPROLOL TARTRATE 50 MG TABLET GT SCH ×2 (08:56→20:11)
[2018-04-10] MEDS: NUTRISOURCE FIBER 4 GM PACKET GT SCH ×2 (08:57→20:11)
[2018-04-10] MEDS: HYDROGEN PEROXIDE 3% 118 ML BOTTLE TP SCH ×2 (08:57→20:11)
[2018-04-10] MEDS: Z GUARD REMEDY PASTE 57 GM TUBE TOP SCH ×2 (08:57→20:11)
[2018-04-10] MEDS: SERTRALINE HCL 50 MG TABLET GT SCH (08:57)
--- NOTE | 2018-04-10 14:16 | NUR ---
Seen and examined by Wilma Rodrgiuez,no new orders noted.
[2018-04-10] MEDS: ASCORBIC ACID 500 MG TABLET PO SCH (20:11)
[2018-04-10 20:23] VITALS: BP 137/88
[2018-04-11] MEDS: MULTIVIT, IRON, MIN NO. 8, FA TABLET GT SCH (05:38)
[2018-04-11] MEDS: OMEPRAZOLE 20 MG CAPSULE.DR GT SCH (05:38)
[2018-04-11 08:00] VITALS: BP 167/91
[2018-04-11] MEDS: ACIDOPHILUS/BULGARICUS CHEW TAB GT SCH ×2 (09:02→20:28)
[2018-04-11] MEDS: BACLOFEN 20 MG TABLET GT SCH ×4 (09:03→20:28)
[2018-04-11] MEDS: DOCUSATE SODIUM 100 MG/10 ML LIQUID UDC GT SCH ×2 (09:03→20:28)
[2018-04-11] MEDS: SIMETHICONE 40 MG/0.6 ML, 30ML BOTTLE GT SCH ×3 (09:04→16:53)
[2018-04-11] MEDS: NUTRISOURCE FIBER 4 GM PACKET GT SCH ×2 (09:04→20:29)
[2018-04-11] MEDS: METOPROLOL TARTRATE 50 MG TABLET GT SCH ×2 (09:04→20:29)
[2018-04-11] MEDS: SERTRALINE HCL 50 MG TABLET GT SCH (09:04)
[2018-04-11] MEDS: Z GUARD REMEDY PASTE 57 GM TUBE TOP SCH ×2 (09:05→20:29)
[2018-04-11] MEDS: HYDROGEN PEROXIDE 3% 118 ML BOTTLE TP SCH ×2 (09:05→20:29)
--- NOTE | 2018-04-11 10:52 | NUR ---
SEEN AND EXAMINED BY DR. RENY MORGAN.
[2018-04-11] MEDS: ASCORBIC ACID 500 MG TABLET PO SCH (20:29)
[2018-04-11 20:34] VITALS: BP 134/95
[2018-04-12] MEDS: OMEPRAZOLE 20 MG CAPSULE.DR GT SCH (05:04)
[2018-04-12] MEDS: GLUCERNA 1.2 1000ML LIQUID GT PRN (06:53)
[2018-04-12] MEDS: METOPROLOL TARTRATE 50 MG TABLET GT SCH ×2 (09:01→21:00)
[2018-04-12] MEDS: BACLOFEN 20 MG TABLET GT SCH ×4 (09:01→21:00)
[2018-04-12] MEDS: ACIDOPHILUS/BULGARICUS CHEW TAB GT SCH ×2 (09:01→21:00)
[2018-04-12] MEDS: DOCUSATE SODIUM 100 MG/10 ML LIQUID UDC GT SCH ×2 (09:01→21:00)
[2018-04-12] MEDS: Z GUARD REMEDY PASTE 57 GM TUBE TOP SCH ×2 (09:02→21:00)
[2018-04-12] MEDS: HYDROGEN PEROXIDE 3% 118 ML BOTTLE TP SCH ×2 (09:02→21:00)
[2018-04-12] MEDS: SERTRALINE HCL 50 MG TABLET GT SCH (09:02)
[2018-04-12] MEDS: SIMETHICONE 40 MG/0.6 ML, 30ML BOTTLE GT SCH ×3 (09:02→17:18)
[2018-04-12] MEDS: NUTRISOURCE FIBER 4 GM PACKET GT SCH ×2 (09:02→21:00)
[2018-04-12] MEDS: HYDROCODONE/APAP 5-325MG TABLET GT PRN (09:03)
[2018-04-12 12:44] VITALS: BP 137/79
[2018-04-12] MEDS: BISACODYL 10 MG SUPP.RECT RC PRN (18:15)
--- NOTE | 2018-04-12 19:25 | NUR ---
Hand-off report received from off-going nurse. Pt received in bed, eyes open. CA 28% FI02 trache mask. Be patent/secure @ midline. No s/s of resp distress. Peg tube patent and intact,infusing Glucerna 1.2 @ 50 ml/hr via pump. Geovanna well. Skin warm and dry. Call light within reach. Cont to mionitor and assist as needed.
[2018-04-12 20:41] VITALS: BP 112/67
[2018-04-12] MEDS: ASCORBIC ACID 500 MG TABLET PO SCH (21:00)
[2018-04-13] MEDS: MULTIVIT, IRON, MIN NO. 8, FA TABLET GT SCH (06:55)
[2018-04-13] MEDS: OMEPRAZOLE 20 MG CAPSULE.DR GT SCH (06:55)
--- NOTE | 2018-04-13 07:14 | NUR ---
Hand-off report given to on-coming nurse. Pt status unchanged. Relinquished care of pt at this time.
[2018-04-13] MEDS: DOCUSATE SODIUM 100 MG/10 ML LIQUID UDC GT SCH ×2 (08:59→21:00)
[2018-04-13] MEDS: BACLOFEN 20 MG TABLET GT SCH ×4 (08:59→21:00)
[2018-04-13] MEDS: METOPROLOL TARTRATE 50 MG TABLET GT SCH ×2 (08:59→21:00)
[2018-04-13] MEDS: ACIDOPHILUS/BULGARICUS CHEW TAB GT SCH ×2 (08:59→21:00)
[2018-04-13] MEDS: Z GUARD REMEDY PASTE 57 GM TUBE TOP SCH ×2 (09:00→21:00)
[2018-04-13] MEDS: HYDROGEN PEROXIDE 3% 118 ML BOTTLE TP SCH ×2 (09:00→21:00)
[2018-04-13] MEDS: NUTRISOURCE FIBER 4 GM PACKET GT SCH ×2 (09:00→21:00)
[2018-04-13] MEDS: SERTRALINE HCL 50 MG TABLET GT SCH (09:00)
[2018-04-13] MEDS: SIMETHICONE 40 MG/0.6 ML, 30ML BOTTLE GT SCH ×3 (09:00→17:00)
[2018-04-13] MEDS: ACETAMINOPHEN 650 MG/20 ML UDC- SA PATIENTS-PAIN ONLY GT PRN (15:05)
[2018-04-13 18:04] VITALS: BP 119/61
--- NOTE | 2018-04-13 19:30 | NUR ---
Hand-off report received from off-going nurse. Pt in bed. eyes open. No tracking. CA 28% FI02 via trache mask No s/s of resp distress. Be #6 patent and secured at midline.Glucerna 1.2 @ 50 ml/hr. Pt eula well. No s/s of resp distress. No crying. Does not appear in discomfort or pain. Does not appear anxious. Cont to monitor and assist as needed. Call light w/in reach.
[2018-04-13 20:39] VITALS: BP 108/67
[2018-04-13] MEDS: ASCORBIC ACID 500 MG TABLET PO SCH (21:00)
[2018-04-14] MEDS: OMEPRAZOLE 20 MG CAPSULE.DR GT SCH (06:00)
--- NOTE | 2018-04-14 07:30 | NUR ---
Hand-off report given to Wayne MILES. Pt in bed eyes closed, skin warm and dry, infusion cont via g tube.. Pt status unchanged. Reliquished care of pt at this time.
[2018-04-14] MEDS: BACLOFEN 20 MG TABLET GT SCH ×4 (09:27→21:51)
[2018-04-14] MEDS: ACIDOPHILUS/BULGARICUS CHEW TAB GT SCH ×2 (09:27→21:56)
[2018-04-14] MEDS: DOCUSATE SODIUM 100 MG/10 ML LIQUID UDC GT SCH ×2 (09:27→21:57)
[2018-04-14] MEDS: Z GUARD REMEDY PASTE 57 GM TUBE TOP SCH ×2 (09:28→21:55)
[2018-04-14] MEDS: SERTRALINE HCL 50 MG TABLET GT SCH (09:28)
[2018-04-14] MEDS: SIMETHICONE 40 MG/0.6 ML, 30ML BOTTLE GT SCH ×3 (09:28→16:36)
[2018-04-14] MEDS: METOPROLOL TARTRATE 50 MG TABLET GT SCH ×2 (09:28→21:40)
[2018-04-14] MEDS: HYDROGEN PEROXIDE 3% 118 ML BOTTLE TP SCH ×2 (09:28→21:56)
[2018-04-14] MEDS: NUTRISOURCE FIBER 4 GM PACKET GT SCH ×2 (09:28→21:46)
[2018-04-14 15:17] VITALS: BP 125/75
[2018-04-14 20:47] VITALS: BP 127/83
[2018-04-14] MEDS: ASCORBIC ACID 500 MG TABLET PO SCH (21:53)
[2018-04-15] MEDS: OMEPRAZOLE 20 MG CAPSULE.DR GT SCH (06:52)
[2018-04-15] MEDS: MULTIVIT, IRON, MIN NO. 8, FA TABLET GT SCH (06:52)
[2018-04-15 08:00] VITALS: BP 119/74
[2018-04-15] MEDS: DOCUSATE SODIUM 100 MG/10 ML LIQUID UDC GT SCH ×2 (08:35→21:21)
[2018-04-15] MEDS: ACIDOPHILUS/BULGARICUS CHEW TAB GT SCH ×2 (08:35→21:21)
[2018-04-15] MEDS: BACLOFEN 20 MG TABLET GT SCH ×4 (08:35→21:22)
[2018-04-15] MEDS: METOPROLOL TARTRATE 50 MG TABLET GT SCH ×2 (08:35→21:22)
[2018-04-15] MEDS: SIMETHICONE 40 MG/0.6 ML, 30ML BOTTLE GT SCH ×3 (08:36→17:47)
[2018-04-15] MEDS: NUTRISOURCE FIBER 4 GM PACKET GT SCH ×2 (08:36→21:22)
[2018-04-15] MEDS: Z GUARD REMEDY PASTE 57 GM TUBE TOP SCH ×2 (08:36→21:23)
[2018-04-15] MEDS: SERTRALINE HCL 50 MG TABLET GT SCH (08:36)
[2018-04-15] MEDS: HYDROGEN PEROXIDE 3% 118 ML BOTTLE TP SCH ×2 (08:36→21:23)
[2018-04-15 20:20] VITALS: BP 139/84
[2018-04-15] MEDS: ASCORBIC ACID 500 MG TABLET PO SCH (21:22)
[2018-04-16] MEDS: OMEPRAZOLE 20 MG CAPSULE.DR GT SCH (06:03)
[2018-04-16] MEDS: GLUCERNA 1.2 1000ML LIQUID GT PRN (07:11)
[2018-04-16 08:00] VITALS: BP 126/76
[2018-04-16] MEDS: DOCUSATE SODIUM 100 MG/10 ML LIQUID UDC GT SCH ×2 (09:57→21:54)
[2018-04-16] MEDS: ACIDOPHILUS/BULGARICUS CHEW TAB GT SCH ×2 (09:57→21:54)
[2018-04-16] MEDS: NUTRISOURCE FIBER 4 GM PACKET GT SCH ×2 (09:58→21:55)
[2018-04-16] MEDS: BACLOFEN 20 MG TABLET GT SCH ×4 (09:58→21:54)
[2018-04-16] MEDS: SIMETHICONE 40 MG/0.6 ML, 30ML BOTTLE GT SCH ×3 (09:58→17:58)
[2018-04-16] MEDS: METOPROLOL TARTRATE 50 MG TABLET GT SCH ×2 (09:58→21:54)
[2018-04-16] MEDS: Z GUARD REMEDY PASTE 57 GM TUBE TOP SCH ×2 (09:58→21:55)
[2018-04-16] MEDS: SERTRALINE HCL 50 MG TABLET GT SCH (09:58)
[2018-04-16] MEDS: HYDROGEN PEROXIDE 3% 118 ML BOTTLE TP SCH ×2 (09:58→21:55)
[2018-04-16 21:09] VITALS: BP 110/68
[2018-04-16] MEDS: ASCORBIC ACID 500 MG TABLET PO SCH (21:55)
[2018-04-17] MEDS: GLUCERNA 1.2 1000ML LIQUID GT PRN (02:03)
[2018-04-17] MEDS: MULTIVIT, IRON, MIN NO. 8, FA TABLET GT SCH (05:45)
[2018-04-17] MEDS: OMEPRAZOLE 20 MG CAPSULE.DR GT SCH (05:45)
[2018-04-17 08:00] VITALS: BP 132/88
[2018-04-17] MEDS: DOCUSATE SODIUM 100 MG/10 ML LIQUID UDC GT SCH ×2 (09:02→21:30)
[2018-04-17] MEDS: ACIDOPHILUS/BULGARICUS CHEW TAB GT SCH ×2 (09:02→21:30)
[2018-04-17] MEDS: BACLOFEN 20 MG TABLET GT SCH ×4 (09:03→21:30)
[2018-04-17] MEDS: NUTRISOURCE FIBER 4 GM PACKET GT SCH ×2 (09:04→21:30)
[2018-04-17] MEDS: SERTRALINE HCL 50 MG TABLET GT SCH (09:04)
[2018-04-17] MEDS: Z GUARD REMEDY PASTE 57 GM TUBE TOP SCH ×2 (09:04→21:30)
[2018-04-17] MEDS: METOPROLOL TARTRATE 50 MG TABLET GT SCH ×2 (09:04→21:30)
[2018-04-17] MEDS: HYDROGEN PEROXIDE 3% 118 ML BOTTLE TP SCH ×2 (09:04→21:31)
[2018-04-17] MEDS: SIMETHICONE 40 MG/0.6 ML, 30ML BOTTLE GT SCH ×3 (09:05→16:55)
--- NOTE | 2018-04-17 10:00 | NUR ---
New tx ordered for back rashes and for a open blister in the r groin orders carried out.
[2018-04-17 20:26] VITALS: BP 112/70
[2018-04-17] MEDS: ASCORBIC ACID 500 MG TABLET PO SCH (21:30)
[2018-04-17] MEDS: NEOMY/BACITRA/POLYMYXIN B OINT UD PACKET TP SCH (21:31)
[2018-04-18] MEDS: GLUCERNA 1.2 1000ML LIQUID GT PRN (02:58)
[2018-04-18] MEDS: OMEPRAZOLE 20 MG CAPSULE.DR GT SCH (05:52)
[2018-04-18 08:00] VITALS: BP 124/88
[2018-04-18] MEDS: DOCUSATE SODIUM 100 MG/10 ML LIQUID UDC GT SCH ×2 (09:01→21:29)
[2018-04-18] MEDS: ACIDOPHILUS/BULGARICUS CHEW TAB GT SCH ×2 (09:03→21:30)
[2018-04-18] MEDS: BACLOFEN 20 MG TABLET GT SCH ×4 (09:03→21:30)
[2018-04-18] MEDS: NUTRISOURCE FIBER 4 GM PACKET GT SCH ×2 (09:04→21:30)
[2018-04-18] MEDS: Z GUARD REMEDY PASTE 57 GM TUBE TOP SCH ×2 (09:04→21:31)
[2018-04-18] MEDS: HYDROGEN PEROXIDE 3% 118 ML BOTTLE TP SCH ×2 (09:04→21:31)
[2018-04-18] MEDS: SERTRALINE HCL 50 MG TABLET GT SCH (09:04)
[2018-04-18] MEDS: NEOMY/BACITRA/POLYMYXIN B OINT UD PACKET TP SCH ×2 (09:04→21:32)
[2018-04-18] MEDS: METOPROLOL TARTRATE 50 MG TABLET GT SCH ×2 (09:04→21:30)
[2018-04-18] MEDS: SIMETHICONE 40 MG/0.6 ML, 30ML BOTTLE GT SCH ×3 (09:04→17:42)
--- NOTE | 2018-04-18 14:30 | NUR ---
SEEN BY GLENN MORGAN.
--- NOTE | 2018-04-18 16:59 | NUR ---
SW received a [facility] Request for Information form for the patient. SW called patient's brother Frank [phone] and left him a voicemail message asking to call this SW back in order to discuss the items that patient's brother needs to submit to [facility].
[2018-04-18 20:09] VITALS: BP 116/71
[2018-04-18] MEDS: ASCORBIC ACID 500 MG TABLET PO SCH (21:30)
[2018-04-18] MEDS: NYSTATIN CREAM 30 GM TUBE TP SCH (21:31)
[2018-04-19] MEDS: GLUCERNA 1.2 1000ML LIQUID GT PRN (03:05)
[2018-04-19] MEDS: OMEPRAZOLE 20 MG CAPSULE.DR GT SCH (05:40)
[2018-04-19] MEDS: MULTIVIT, IRON, MIN NO. 8, FA TABLET GT SCH (05:40)
[2018-04-19] MEDS: BACLOFEN 20 MG TABLET GT SCH ×4 (08:38→20:32)
[2018-04-19] MEDS: DOCUSATE SODIUM 100 MG/10 ML LIQUID UDC GT SCH ×2 (08:38→20:31)
[2018-04-19] MEDS: HYDROGEN PEROXIDE 3% 118 ML BOTTLE TP SCH ×2 (08:38→20:33)
[2018-04-19] MEDS: SIMETHICONE 40 MG/0.6 ML, 30ML BOTTLE GT SCH ×3 (08:38→17:04)
[2018-04-19] MEDS: NEOMY/BACITRA/POLYMYXIN B OINT UD PACKET TP SCH ×2 (08:38→20:35)
[2018-04-19] MEDS: ACIDOPHILUS/BULGARICUS CHEW TAB GT SCH ×2 (08:38→20:31)
[2018-04-19] MEDS: NUTRISOURCE FIBER 4 GM PACKET GT SCH ×2 (08:38→20:33)
[2018-04-19] MEDS: Z GUARD REMEDY PASTE 57 GM TUBE TOP SCH ×2 (08:38→20:33)
[2018-04-19] MEDS: SERTRALINE HCL 50 MG TABLET GT SCH (08:38)
[2018-04-19] MEDS: NYSTATIN CREAM 30 GM TUBE TP SCH ×2 (08:38→20:35)
[2018-04-19] MEDS: METOPROLOL TARTRATE 50 MG TABLET GT SCH ×2 (08:47→20:33)
[2018-04-19 11:07] VITALS: BP 134/69
--- NOTE | 2018-04-19 16:02 | NUR ---
3:45pm: KATHRINE called patient's brother Frank [phone] again, and was able to speak with him. KATHRINE discussed the [facility] Request for Information form with Frank, and reviewed the items listed on the form that [facility] was requesting (Car registration, bank account statement, patient's face sheet, disability letter). Frank stated that patient does not have any assets or income. KATHRINE stated that she will [facility], as instructed on the form, and write a note on the face sheet stating that patient does not have any of the other items that are being requested. Frank agreed. Frank then asked about decision making rights, and KATHRINE provided education on conservatorship. Frank agreed to get further information about this, and KATHRINE stated that she will mail information to Frank about conservatorship and referrals for legal services that can assist him in the process. Frank agreed.
--- NOTE | 2018-04-19 16:17 | NUR ---
KATHRINE faxed patient's face sheet and [facility] Request for Information form to [facility] at [phone].
[2018-04-19 19:00] VITALS: BP 109/74
[2018-04-19] MEDS: ASCORBIC ACID 500 MG TABLET PO SCH (20:33)
[2018-04-20] MEDS: GLUCERNA 1.2 1000ML LIQUID GT PRN (01:53)
[2018-04-20] MEDS: OMEPRAZOLE 20 MG CAPSULE.DR GT SCH (05:29)
[2018-04-20] MEDS: ACETAMINOPHEN 650 MG/20 ML UDC- SA PATIENTS-PAIN ONLY GT PRN (05:30)
[2018-04-20 07:35] VITALS: BP 122/79
[2018-04-20] MEDS: METOPROLOL TARTRATE 50 MG TABLET GT SCH ×2 (09:22→21:17)
[2018-04-20] MEDS: BACLOFEN 20 MG TABLET GT SCH ×4 (09:39→21:17)
[2018-04-20] MEDS: NUTRISOURCE FIBER 4 GM PACKET GT SCH ×2 (09:39→21:18)
[2018-04-20] MEDS: ACIDOPHILUS/BULGARICUS CHEW TAB GT SCH ×2 (09:39→21:17)
[2018-04-20] MEDS: SERTRALINE HCL 50 MG TABLET GT SCH (09:39)
[2018-04-20] MEDS: SIMETHICONE 40 MG/0.6 ML, 30ML BOTTLE GT SCH ×3 (09:39→16:27)
[2018-04-20] MEDS: DOCUSATE SODIUM 100 MG/10 ML LIQUID UDC GT SCH ×2 (09:39→21:17)
[2018-04-20] MEDS: HYDROGEN PEROXIDE 3% 118 ML BOTTLE TP SCH ×2 (10:00→21:18)
[2018-04-20] MEDS: Z GUARD REMEDY PASTE 57 GM TUBE TOP SCH ×2 (10:00→21:18)
[2018-04-20] MEDS: NEOMY/BACITRA/POLYMYXIN B OINT UD PACKET TP SCH ×2 (10:00→21:18)
[2018-04-20] MEDS: NYSTATIN CREAM 30 GM TUBE TP SCH ×2 (10:00→21:18)
[2018-04-20 20:00] VITALS: BP 109/70
[2018-04-20] MEDS: ASCORBIC ACID 500 MG TABLET PO SCH (21:18)
[2018-04-21] MEDS: GLUCERNA 1.2 1000ML LIQUID GT PRN (01:18)
[2018-04-21] MEDS: OMEPRAZOLE 20 MG CAPSULE.DR GT SCH (05:41)
[2018-04-21] MEDS: MULTIVIT, IRON, MIN NO. 8, FA TABLET GT SCH (05:41)
[2018-04-21 07:27] VITALS: BP 120/75
[2018-04-21] MEDS: Z GUARD REMEDY PASTE 57 GM TUBE TOP SCH ×2 (08:55→21:22)
[2018-04-21] MEDS: ACIDOPHILUS/BULGARICUS CHEW TAB GT SCH ×2 (08:55→21:21)
[2018-04-21] MEDS: SERTRALINE HCL 50 MG TABLET GT SCH (08:55)
[2018-04-21] MEDS: NUTRISOURCE FIBER 4 GM PACKET GT SCH ×2 (08:55→21:22)
[2018-04-21] MEDS: BACLOFEN 20 MG TABLET GT SCH ×4 (08:55→21:21)
[2018-04-21] MEDS: SIMETHICONE 40 MG/0.6 ML, 30ML BOTTLE GT SCH ×3 (08:55→17:40)
[2018-04-21] MEDS: NEOMY/BACITRA/POLYMYXIN B OINT UD PACKET TP SCH ×2 (08:55→21:22)
[2018-04-21] MEDS: HYDROGEN PEROXIDE 3% 118 ML BOTTLE TP SCH ×2 (08:55→21:22)
[2018-04-21] MEDS: NYSTATIN CREAM 30 GM TUBE TP SCH ×2 (08:55→21:22)
[2018-04-21] MEDS: METOPROLOL TARTRATE 50 MG TABLET GT SCH ×2 (08:55→21:22)
[2018-04-21] MEDS: DOCUSATE SODIUM 100 MG/10 ML LIQUID UDC GT SCH ×2 (08:55→21:21)
[2018-04-21 20:29] VITALS: BP 129/83
[2018-04-21] MEDS: ASCORBIC ACID 500 MG TABLET PO SCH (21:22)
[2018-04-22] MEDS: GLUCERNA 1.2 1000ML LIQUID GT PRN (02:15)
[2018-04-22] MEDS: OMEPRAZOLE 20 MG CAPSULE.DR GT SCH (06:44)
[2018-04-22] MEDS: ACIDOPHILUS/BULGARICUS CHEW TAB GT SCH ×2 (08:31→21:37)
[2018-04-22] MEDS: DOCUSATE SODIUM 100 MG/10 ML LIQUID UDC GT SCH ×2 (08:31→21:37)
[2018-04-22] MEDS: SERTRALINE HCL 50 MG TABLET GT SCH (08:32)
[2018-04-22] MEDS: METOPROLOL TARTRATE 50 MG TABLET GT SCH ×2 (08:32→21:37)
[2018-04-22] MEDS: BACLOFEN 20 MG TABLET GT SCH ×4 (08:32→21:37)
[2018-04-22] MEDS: NUTRISOURCE FIBER 4 GM PACKET GT SCH ×2 (08:32→21:37)
[2018-04-22] MEDS: NEOMY/BACITRA/POLYMYXIN B OINT UD PACKET TP SCH ×2 (08:32→21:38)
[2018-04-22] MEDS: HYDROGEN PEROXIDE 3% 118 ML BOTTLE TP SCH ×2 (08:32→21:37)
[2018-04-22] MEDS: Z GUARD REMEDY PASTE 57 GM TUBE TOP SCH ×2 (08:32→21:37)
[2018-04-22] MEDS: SIMETHICONE 40 MG/0.6 ML, 30ML BOTTLE GT SCH ×3 (08:32→17:31)
[2018-04-22] MEDS: NYSTATIN CREAM 30 GM TUBE TP SCH ×2 (08:32→21:38)
[2018-04-22 09:10] VITALS: BP 127/82
--- NOTE | 2018-04-22 10:37 | NUR ---
PT. WAS SEEN BY GLENN Bolaños AND WITH NEW ORDER CARRIED OUT FOR LEFT NECK RASH.PICTURE TAKEN .
--- NOTE | 2018-04-22 12:00 | NUR ---
SEEN BY GLENN MORGAN.
--- NOTE | 2018-04-22 15:45 | NUR ---
PT. WAS SEEN BY ABIEL MERCHANT
[2018-04-22 20:38] VITALS: BP 118/76
[2018-04-22] MEDS: ASCORBIC ACID 500 MG TABLET PO SCH (21:37)
[2018-04-23] MEDS: GLUCERNA 1.2 1000ML LIQUID GT PRN ×2 (02:15→21:25)
[2018-04-23] MEDS: OMEPRAZOLE 20 MG CAPSULE.DR GT SCH (05:33)
[2018-04-23] MEDS: MULTIVIT, IRON, MIN NO. 8, FA TABLET GT SCH (05:33)
[2018-04-23] MEDS: TRIAMCINOLONE ACET 0.1% OINT 15 GM TUBE TP SCH (09:00)
[2018-04-23] MEDS: BACLOFEN 20 MG TABLET GT SCH ×4 (09:26→21:22)
[2018-04-23] MEDS: ACIDOPHILUS/BULGARICUS CHEW TAB GT SCH ×2 (09:26→21:22)
[2018-04-23] MEDS: DOCUSATE SODIUM 100 MG/10 ML LIQUID UDC GT SCH ×2 (09:26→21:22)
[2018-04-23] MEDS: SERTRALINE HCL 50 MG TABLET GT SCH (09:27)
[2018-04-23] MEDS: METOPROLOL TARTRATE 50 MG TABLET GT SCH ×2 (09:27→21:22)
[2018-04-23] MEDS: SIMETHICONE 40 MG/0.6 ML, 30ML BOTTLE GT SCH ×3 (09:27→16:13)
[2018-04-23] MEDS: NUTRISOURCE FIBER 4 GM PACKET GT SCH ×2 (09:27→21:22)
[2018-04-23] MEDS: Z GUARD REMEDY PASTE 57 GM TUBE TOP SCH ×2 (09:28→21:22)
[2018-04-23] MEDS: HYDROGEN PEROXIDE 3% 118 ML BOTTLE TP SCH ×2 (09:28→21:22)
[2018-04-23] MEDS: NYSTATIN CREAM 30 GM TUBE TP SCH ×2 (09:28→21:22)
[2018-04-23] MEDS: NEOMY/BACITRA/POLYMYXIN B OINT UD PACKET TP SCH ×2 (09:28→21:23)
[2018-04-23 12:14] VITALS: BP 128/83
[2018-04-23 20:00] VITALS: BP 121/79
[2018-04-23] MEDS: ASCORBIC ACID 500 MG TABLET PO SCH (21:22)
[2018-04-24] MEDS: OMEPRAZOLE 20 MG CAPSULE.DR GT SCH (06:01)
[2018-04-24] MEDS: ACIDOPHILUS/BULGARICUS CHEW TAB GT SCH ×2 (08:41→20:50)
[2018-04-24] MEDS: BACLOFEN 20 MG TABLET GT SCH ×4 (08:41→20:50)
[2018-04-24] MEDS: DOCUSATE SODIUM 100 MG/10 ML LIQUID UDC GT SCH ×2 (08:41→20:50)
[2018-04-24] MEDS: SIMETHICONE 40 MG/0.6 ML, 30ML BOTTLE GT SCH ×3 (08:42→16:14)
[2018-04-24] MEDS: SERTRALINE HCL 50 MG TABLET GT SCH (08:42)
[2018-04-24] MEDS: NUTRISOURCE FIBER 4 GM PACKET GT SCH ×2 (08:42→20:50)
[2018-04-24] MEDS: METOPROLOL TARTRATE 50 MG TABLET GT SCH ×2 (08:42→20:50)
[2018-04-24] MEDS: NYSTATIN CREAM 30 GM TUBE TP SCH ×2 (08:43→20:51)
[2018-04-24] MEDS: NEOMY/BACITRA/POLYMYXIN B OINT UD PACKET TP SCH ×2 (08:43→20:51)
[2018-04-24] MEDS: HYDROGEN PEROXIDE 3% 118 ML BOTTLE TP SCH ×2 (08:43→20:51)
[2018-04-24] MEDS: Z GUARD REMEDY PASTE 57 GM TUBE TOP SCH ×2 (08:43→20:51)
[2018-04-24] MEDS: TRIAMCINOLONE ACET 0.1% OINT 15 GM TUBE TP SCH (08:43)
[2018-04-24 12:00] VITALS: BP 131/78
--- NOTE | 2018-04-24 13:30 | NUR ---
Seen and examined by Wilma Rodriguez with no new orders noted.
[2018-04-24 20:00] VITALS: BP 107/69
[2018-04-24] MEDS: ASCORBIC ACID 500 MG TABLET PO SCH (20:50)
[2018-04-24] MEDS: GLUCERNA 1.2 1000ML LIQUID GT PRN (21:00)
[2018-04-25] MEDS: MULTIVIT, IRON, MIN NO. 8, FA TABLET GT SCH (05:55)
[2018-04-25] MEDS: OMEPRAZOLE 20 MG CAPSULE.DR GT SCH (05:55)
--- NOTE | 2018-04-25 06:09 | NUR ---
Afebrile, still with ongoing treatment to back rash with nystatin cream , no adverse reactions noted.l On triamcinolone cream to left neck, good skin care done, kept clean and comfortable.
[2018-04-25 08:00] VITALS: BP 129/89
[2018-04-25] MEDS: ACIDOPHILUS/BULGARICUS CHEW TAB GT SCH ×2 (08:41→21:57)
[2018-04-25] MEDS: DOCUSATE SODIUM 100 MG/10 ML LIQUID UDC GT SCH ×2 (08:41→21:57)
[2018-04-25] MEDS: BACLOFEN 20 MG TABLET GT SCH ×4 (08:41→21:57)
[2018-04-25] MEDS: NUTRISOURCE FIBER 4 GM PACKET GT SCH ×2 (08:42→21:57)
[2018-04-25] MEDS: SERTRALINE HCL 50 MG TABLET GT SCH (08:42)
[2018-04-25] MEDS: METOPROLOL TARTRATE 50 MG TABLET GT SCH ×2 (08:42→21:57)
[2018-04-25] MEDS: SIMETHICONE 40 MG/0.6 ML, 30ML BOTTLE GT SCH ×3 (08:42→16:02)
[2018-04-25] MEDS: NYSTATIN CREAM 30 GM TUBE TP SCH ×2 (08:43→21:58)
[2018-04-25] MEDS: Z GUARD REMEDY PASTE 57 GM TUBE TOP SCH ×2 (08:43→21:58)
[2018-04-25] MEDS: HYDROGEN PEROXIDE 3% 118 ML BOTTLE TP SCH ×2 (08:43→21:58)
[2018-04-25] MEDS: TRIAMCINOLONE ACET 0.1% OINT 15 GM TUBE TP SCH (08:43)
[2018-04-25] MEDS: NEOMY/BACITRA/POLYMYXIN B OINT UD PACKET TP SCH ×2 (08:44→21:58)
[2018-04-25 20:00] VITALS: BP 125/86
[2018-04-25] MEDS: ASCORBIC ACID 500 MG TABLET PO SCH (21:57)
[2018-04-25] MEDS: GLUCERNA 1.2 1000ML LIQUID GT PRN (22:08)
[2018-04-26] MEDS: OMEPRAZOLE 20 MG CAPSULE.DR GT SCH (05:49)
[2018-04-26 08:00] VITALS: BP 108/74
[2018-04-26] MEDS: DOCUSATE SODIUM 100 MG/10 ML LIQUID UDC GT SCH ×2 (08:32→21:01)
[2018-04-26] MEDS: ACIDOPHILUS/BULGARICUS CHEW TAB GT SCH ×2 (08:33→20:35)
[2018-04-26] MEDS: BACLOFEN 20 MG TABLET GT SCH ×4 (08:33→20:35)
[2018-04-26] MEDS: METOPROLOL TARTRATE 50 MG TABLET GT SCH ×2 (08:34→20:36)
[2018-04-26] MEDS: SERTRALINE HCL 50 MG TABLET GT SCH (08:34)
[2018-04-26] MEDS: NUTRISOURCE FIBER 4 GM PACKET GT SCH ×2 (08:34→20:36)
[2018-04-26] MEDS: NEOMY/BACITRA/POLYMYXIN B OINT UD PACKET TP SCH ×2 (08:34→20:36)
[2018-04-26] MEDS: TRIAMCINOLONE ACET 0.1% OINT 15 GM TUBE TP SCH (08:34)
[2018-04-26] MEDS: SIMETHICONE 40 MG/0.6 ML, 30ML BOTTLE GT SCH ×3 (08:34→16:16)
[2018-04-26] MEDS: Z GUARD REMEDY PASTE 57 GM TUBE TOP SCH ×2 (08:34→20:36)
[2018-04-26] MEDS: HYDROGEN PEROXIDE 3% 118 ML BOTTLE TP SCH ×2 (08:34→20:36)
[2018-04-26] MEDS: NYSTATIN CREAM 30 GM TUBE TP SCH ×2 (08:34→20:36)
[2018-04-26] MEDS: ASCORBIC ACID 500 MG TABLET PO SCH (20:36)
[2018-04-26] MEDS: GLUCERNA 1.2 1000ML LIQUID GT PRN (21:01)
[2018-04-26 23:11] VITALS: BP 116/70
[2018-04-27] MEDS: OMEPRAZOLE 20 MG CAPSULE.DR GT SCH (05:43)
[2018-04-27] MEDS: MULTIVIT, IRON, MIN NO. 8, FA TABLET GT SCH (05:43)
[2018-04-27 08:06] VITALS: BP 124/87
[2018-04-27] MEDS: DOCUSATE SODIUM 100 MG/10 ML LIQUID UDC GT SCH ×2 (09:17→21:00)
[2018-04-27] MEDS: ACIDOPHILUS/BULGARICUS CHEW TAB GT SCH ×2 (09:17→21:00)
[2018-04-27] MEDS: BACLOFEN 20 MG TABLET GT SCH ×4 (09:18→21:00)
[2018-04-27] MEDS: METOPROLOL TARTRATE 50 MG TABLET GT SCH ×2 (09:19→21:00)
[2018-04-27] MEDS: SERTRALINE HCL 50 MG TABLET GT SCH (09:19)
[2018-04-27] MEDS: NUTRISOURCE FIBER 4 GM PACKET GT SCH ×2 (09:20→21:00)
[2018-04-27] MEDS: HYDROGEN PEROXIDE 3% 118 ML BOTTLE TP SCH ×2 (09:21→21:00)
[2018-04-27] MEDS: NEOMY/BACITRA/POLYMYXIN B OINT UD PACKET TP SCH (09:21)
[2018-04-27] MEDS: Z GUARD REMEDY PASTE 57 GM TUBE TOP SCH ×2 (09:21→21:00)
[2018-04-27] MEDS: NYSTATIN CREAM 30 GM TUBE TP SCH ×2 (09:21→21:00)
[2018-04-27] MEDS: TRIAMCINOLONE ACET 0.1% OINT 15 GM TUBE TP SCH (09:21)
[2018-04-27] MEDS: SIMETHICONE 40 MG/0.6 ML, 30ML BOTTLE GT SCH ×3 (09:28→17:02)
[2018-04-27 20:31] VITALS: BP 110/73
[2018-04-27] MEDS: ASCORBIC ACID 500 MG TABLET PO SCH (21:00)
[2018-04-27] MEDS: GLUCERNA 1.2 1000ML LIQUID GT PRN (22:37)
[2018-04-28] MEDS: OMEPRAZOLE 20 MG CAPSULE.DR GT SCH (06:02)
[2018-04-28] MEDS: DOCUSATE SODIUM 100 MG/10 ML LIQUID UDC GT SCH ×2 (09:50→21:38)
[2018-04-28] MEDS: BACLOFEN 20 MG TABLET GT SCH ×4 (09:50→21:38)
[2018-04-28] MEDS: ACIDOPHILUS/BULGARICUS CHEW TAB GT SCH ×2 (09:50→21:38)
[2018-04-28] MEDS: NUTRISOURCE FIBER 4 GM PACKET GT SCH ×2 (09:51→21:38)
[2018-04-28] MEDS: SIMETHICONE 40 MG/0.6 ML, 30ML BOTTLE GT SCH ×3 (09:51→16:58)
[2018-04-28] MEDS: HYDROGEN PEROXIDE 3% 118 ML BOTTLE TP SCH ×2 (09:51→21:39)
[2018-04-28] MEDS: SERTRALINE HCL 50 MG TABLET GT SCH (09:51)
[2018-04-28] MEDS: Z GUARD REMEDY PASTE 57 GM TUBE TOP SCH ×2 (09:51→21:38)
[2018-04-28] MEDS: TRIAMCINOLONE ACET 0.1% OINT 15 GM TUBE TP SCH (09:52)
[2018-04-28] MEDS: NYSTATIN CREAM 30 GM TUBE TP SCH ×2 (09:52→21:39)
[2018-04-28] MEDS: METOPROLOL TARTRATE 50 MG TABLET GT SCH ×2 (09:54→21:38)
[2018-04-28 11:37] VITALS: BP 100/63
[2018-04-28] MEDS: GLUCERNA 1.2 1000ML LIQUID GT PRN (16:59)
[2018-04-28 20:47] VITALS: BP 131/70
[2018-04-28] MEDS: ASCORBIC ACID 500 MG TABLET PO SCH (21:38)
--- NOTE | 2018-04-28 22:45 | NUR ---
Seen and examined by JANY Isaac with no new order.
[2018-04-29] MEDS: MULTIVIT, IRON, MIN NO. 8, FA TABLET GT SCH (06:02)
[2018-04-29] MEDS: OMEPRAZOLE 20 MG CAPSULE.DR GT SCH (06:02)
[2018-04-29] MEDS: SERTRALINE HCL 50 MG TABLET GT SCH (08:52)
[2018-04-29] MEDS: ACIDOPHILUS/BULGARICUS CHEW TAB GT SCH ×2 (08:52→21:29)
[2018-04-29] MEDS: NUTRISOURCE FIBER 4 GM PACKET GT SCH ×2 (08:52→21:30)
[2018-04-29] MEDS: METOPROLOL TARTRATE 50 MG TABLET GT SCH ×2 (08:52→21:29)
[2018-04-29] MEDS: DOCUSATE SODIUM 100 MG/10 ML LIQUID UDC GT SCH ×2 (08:52→21:29)
[2018-04-29] MEDS: SIMETHICONE 40 MG/0.6 ML, 30ML BOTTLE GT SCH ×3 (08:52→16:12)
[2018-04-29] MEDS: Z GUARD REMEDY PASTE 57 GM TUBE TOP SCH ×2 (08:52→21:30)
[2018-04-29] MEDS: BACLOFEN 20 MG TABLET GT SCH ×4 (08:52→21:29)
[2018-04-29] MEDS: TRIAMCINOLONE ACET 0.1% OINT 15 GM TUBE TP SCH (08:53)
[2018-04-29] MEDS: HYDROGEN PEROXIDE 3% 118 ML BOTTLE TP SCH ×2 (08:53→21:30)
[2018-04-29] MEDS: NYSTATIN CREAM 30 GM TUBE TP SCH ×2 (08:53→21:30)
--- NOTE | 2018-04-29 15:22 | NUR ---
KATHRINE mailed information on conservatorship, along with contact information for [employer] [facility] [employer] ([employer] [facility] [employer] [facility]; [phone]; [email or web address]) to patient's brother Frank. The address the information was mailed to is: [id number] [place] [address]
[2018-04-29] MEDS: GLUCERNA 1.2 1000ML LIQUID GT PRN (16:12)
[2018-04-29 21:11] VITALS: BP 126/80
[2018-04-29] MEDS: ASCORBIC ACID 500 MG TABLET PO SCH (21:30)
[2018-04-30] MEDS: OMEPRAZOLE 20 MG CAPSULE.DR GT SCH (05:50)
[2018-04-30] MEDS: ACIDOPHILUS/BULGARICUS CHEW TAB GT SCH ×2 (08:46→21:03)
[2018-04-30] MEDS: BACLOFEN 20 MG TABLET GT SCH ×4 (08:46→21:03)
[2018-04-30] MEDS: DOCUSATE SODIUM 100 MG/10 ML LIQUID UDC GT SCH ×2 (08:46→21:03)
[2018-04-30] MEDS: METOPROLOL TARTRATE 50 MG TABLET GT SCH ×2 (08:46→21:04)
[2018-04-30] MEDS: NYSTATIN CREAM 30 GM TUBE TP SCH ×2 (08:47→21:04)
[2018-04-30] MEDS: SERTRALINE HCL 50 MG TABLET GT SCH (08:47)
[2018-04-30] MEDS: Z GUARD REMEDY PASTE 57 GM TUBE TOP SCH ×2 (08:47→21:04)
[2018-04-30] MEDS: HYDROGEN PEROXIDE 3% 118 ML BOTTLE TP SCH ×2 (08:47→21:04)
[2018-04-30] MEDS: NUTRISOURCE FIBER 4 GM PACKET GT SCH ×2 (08:47→21:04)
[2018-04-30] MEDS: SIMETHICONE 40 MG/0.6 ML, 30ML BOTTLE GT SCH ×3 (08:47→17:05)
[2018-04-30 09:25] VITALS: BP 96/67
[2018-04-30] MEDS: GLUCERNA 1.2 1000ML LIQUID GT PRN (14:52)
[2018-04-30 20:00] VITALS: BP 131/81
[2018-04-30] MEDS: ASCORBIC ACID 500 MG TABLET PO SCH (21:04)
[2018-05-01] MEDS: GLUCERNA 1.2 1000ML LIQUID GT PRN (06:00)
[2018-05-01] MEDS: MULTIVIT, IRON, MIN NO. 8, FA TABLET GT SCH (06:17)
[2018-05-01] MEDS: OMEPRAZOLE 20 MG CAPSULE.DR GT SCH (06:17)
[2018-05-01 08:00] VITALS: BP 119/74
[2018-05-01] MEDS: DOCUSATE SODIUM 100 MG/10 ML LIQUID UDC GT SCH ×2 (08:14→20:28)
[2018-05-01] MEDS: BACLOFEN 20 MG TABLET GT SCH ×4 (08:14→20:29)
[2018-05-01] MEDS: ACIDOPHILUS/BULGARICUS CHEW TAB GT SCH ×2 (08:14→20:29)
[2018-05-01] MEDS: METOPROLOL TARTRATE 50 MG TABLET GT SCH ×2 (08:15→20:30)
[2018-05-01] MEDS: Z GUARD REMEDY PASTE 57 GM TUBE TOP SCH ×2 (08:16→20:31)
[2018-05-01] MEDS: SERTRALINE HCL 50 MG TABLET GT SCH (08:16)
[2018-05-01] MEDS: NUTRISOURCE FIBER 4 GM PACKET GT SCH ×2 (08:16→20:31)
[2018-05-01] MEDS: HYDROGEN PEROXIDE 3% 118 ML BOTTLE TP SCH ×2 (08:16→20:31)
[2018-05-01] MEDS: SIMETHICONE 40 MG/0.6 ML, 30ML BOTTLE GT SCH ×3 (08:16→16:06)
[2018-05-01] MEDS: NYSTATIN CREAM 30 GM TUBE TP SCH ×2 (08:16→20:32)
--- NOTE | 2018-05-01 14:00 | NUR ---
Seen and examined by Wilma CARMICHAEL,no new orders.
--- NOTE | 2018-05-01 19:00 | NUR ---
Seen and examined by Dr Heaton,with new orders
[2018-05-01 20:11] VITALS: BP 131/85
[2018-05-01] MEDS: ASCORBIC ACID 500 MG TABLET PO SCH (20:31)
[2018-05-02] MEDS: OMEPRAZOLE 20 MG CAPSULE.DR GT SCH (05:08)
[2018-05-02] MEDS: GLUCERNA 1.2 1000ML LIQUID GT PRN (06:12)
[2018-05-02] MEDS: BACLOFEN 20 MG TABLET GT SCH ×4 (08:04→21:00)
[2018-05-02] MEDS: SIMETHICONE 40 MG/0.6 ML, 30ML BOTTLE GT SCH ×3 (08:04→17:21)
[2018-05-02] MEDS: METOPROLOL TARTRATE 50 MG TABLET GT SCH ×2 (08:04→21:00)
[2018-05-02] MEDS: ACIDOPHILUS/BULGARICUS CHEW TAB GT SCH ×2 (08:04→21:00)
[2018-05-02] MEDS: DOCUSATE SODIUM 100 MG/10 ML LIQUID UDC GT SCH ×2 (08:04→21:00)
[2018-05-02] MEDS: NUTRISOURCE FIBER 4 GM PACKET GT SCH ×2 (08:06→21:00)
[2018-05-02 08:07] VITALS: BP 129/89
[2018-05-02] MEDS: Z GUARD REMEDY PASTE 57 GM TUBE TOP SCH ×2 (08:07→21:00)
[2018-05-02] MEDS: NYSTATIN CREAM 30 GM TUBE TP SCH ×2 (08:07→21:00)
[2018-05-02] MEDS: HYDROGEN PEROXIDE 3% 118 ML BOTTLE TP SCH ×2 (08:07→21:00)
[2018-05-02] MEDS: SERTRALINE HCL 50 MG TABLET GT SCH (08:07)
--- NOTE | 2018-05-02 10:47 | NUR ---
SEEN AND EXAMINED BY DR. RENY MORGAN.
--- NOTE | 2018-05-02 13:30 | NUR ---
KATHRINE informed by JD Shi that patients has a dermatology consultation order. KATHRINE notified Subacute Director Mynor Irene of the consultation order, and then faxed the order and patient's face sheet to Dr. Ramos at [phone] (tel # [phone]). JD Shi informed that fax has been sent.
--- NOTE | 2018-05-02 16:47 | NUR ---
KATHRINE received a voicemail message from Dr. Ramos's office [phone], stating that they had received the fax for patient's dermatology consultation, and that the doctor would be in on Sunday05/06/18 to see the patient. KATHRINE informed charge nurse Yuridia.
[2018-05-02] MEDS: ASCORBIC ACID 500 MG TABLET PO SCH (21:00)
[2018-05-02 21:49] VITALS: BP 137/87
[2018-05-03] MEDS: GLUCERNA 1.2 1000ML LIQUID GT PRN (06:24)
[2018-05-03] MEDS: OMEPRAZOLE 20 MG CAPSULE.DR GT SCH (06:24)
[2018-05-03] MEDS: MULTIVIT, IRON, MIN NO. 8, FA TABLET GT SCH (06:24)
[2018-05-03] MEDS: BACLOFEN 20 MG TABLET GT SCH ×4 (08:53→20:37)
[2018-05-03] MEDS: ACIDOPHILUS/BULGARICUS CHEW TAB GT SCH ×2 (08:53→20:37)
[2018-05-03] MEDS: DOCUSATE SODIUM 100 MG/10 ML LIQUID UDC GT SCH ×2 (08:53→20:37)
[2018-05-03] MEDS: METOPROLOL TARTRATE 50 MG TABLET GT SCH ×2 (08:56→20:38)
[2018-05-03] MEDS: SERTRALINE HCL 50 MG TABLET GT SCH (08:56)
[2018-05-03] MEDS: SIMETHICONE 40 MG/0.6 ML, 30ML BOTTLE GT SCH ×3 (08:56→16:44)
[2018-05-03] MEDS: NUTRISOURCE FIBER 4 GM PACKET GT SCH ×2 (08:56→20:38)
[2018-05-03] MEDS: NYSTATIN CREAM 30 GM TUBE TP SCH ×2 (08:57→20:38)
[2018-05-03] MEDS: HYDROGEN PEROXIDE 3% 118 ML BOTTLE TP SCH ×2 (08:57→20:38)
[2018-05-03] MEDS: Z GUARD REMEDY PASTE 57 GM TUBE TOP SCH ×2 (08:57→20:38)
[2018-05-03 09:07] VITALS: BP 103/64
[2018-05-03 20:34] VITALS: BP 136/91
[2018-05-03] MEDS: ASCORBIC ACID 500 MG TABLET PO SCH (20:38)
[2018-05-04] MEDS: GLUCERNA 1.2 1000ML LIQUID GT PRN (03:52)
[2018-05-04] MEDS: OMEPRAZOLE 20 MG CAPSULE.DR GT SCH (05:38)
[2018-05-04 08:00] VITALS: BP 126/95
[2018-05-04] MEDS: DOCUSATE SODIUM 100 MG/10 ML LIQUID UDC GT SCH ×2 (08:31→21:00)
[2018-05-04] MEDS: BACLOFEN 20 MG TABLET GT SCH ×4 (08:31→21:23)
[2018-05-04] MEDS: ACIDOPHILUS/BULGARICUS CHEW TAB GT SCH ×2 (08:31→21:22)
[2018-05-04] MEDS: METOPROLOL TARTRATE 50 MG TABLET GT SCH ×2 (08:32→21:24)
[2018-05-04] MEDS: Z GUARD REMEDY PASTE 57 GM TUBE TOP SCH ×2 (08:33→21:24)
[2018-05-04] MEDS: SIMETHICONE 40 MG/0.6 ML, 30ML BOTTLE GT SCH ×3 (08:33→16:31)
[2018-05-04] MEDS: NUTRISOURCE FIBER 4 GM PACKET GT SCH ×2 (08:33→21:24)
[2018-05-04] MEDS: SERTRALINE HCL 50 MG TABLET GT SCH (08:33)
[2018-05-04] MEDS: HYDROGEN PEROXIDE 3% 118 ML BOTTLE TP SCH ×2 (08:33→21:25)
[2018-05-04] MEDS: NYSTATIN CREAM 30 GM TUBE TP SCH ×2 (08:33→21:26)
[2018-05-04 20:29] VITALS: BP 119/75
[2018-05-04] MEDS: ASCORBIC ACID 500 MG TABLET PO SCH (21:24)
[2018-05-05] MEDS: GLUCERNA 1.2 1000ML LIQUID GT PRN (01:18)
[2018-05-05] MEDS: OMEPRAZOLE 20 MG CAPSULE.DR GT SCH (06:22)
[2018-05-05] MEDS: MULTIVIT, IRON, MIN NO. 8, FA TABLET GT SCH (06:22)
[2018-05-05 08:00] VITALS: BP 119/80
[2018-05-05] MEDS: BACLOFEN 20 MG TABLET GT SCH ×4 (09:04→21:27)
[2018-05-05] MEDS: DOCUSATE SODIUM 100 MG/10 ML LIQUID UDC GT SCH ×2 (09:04→21:27)
[2018-05-05] MEDS: METOPROLOL TARTRATE 50 MG TABLET GT SCH ×2 (09:04→21:27)
[2018-05-05] MEDS: ACIDOPHILUS/BULGARICUS CHEW TAB GT SCH ×2 (09:04→21:27)
[2018-05-05] MEDS: NUTRISOURCE FIBER 4 GM PACKET GT SCH ×2 (09:05→21:27)
[2018-05-05] MEDS: Z GUARD REMEDY PASTE 57 GM TUBE TOP SCH ×2 (09:05→21:27)
[2018-05-05] MEDS: SERTRALINE HCL 50 MG TABLET GT SCH (09:05)
[2018-05-05] MEDS: NYSTATIN CREAM 30 GM TUBE TP SCH ×2 (09:05→21:27)
[2018-05-05] MEDS: HYDROGEN PEROXIDE 3% 118 ML BOTTLE TP SCH ×2 (09:05→21:27)
[2018-05-05] MEDS: SIMETHICONE 40 MG/0.6 ML, 30ML BOTTLE GT SCH ×3 (09:05→17:08)
--- NOTE | 2018-05-05 11:52 | NUR ---
MESSAGE LEFT TO PT'S BROTHER JESICA RE:PPD SKIN TEST .
[2018-05-05] MEDS: ASCORBIC ACID 500 MG TABLET PO SCH (21:27)
[2018-05-05 21:29] VITALS: BP 122/77
[2018-05-05 21:59] VITALS: BP 122/77
[2018-05-06] MEDS: OMEPRAZOLE 20 MG CAPSULE.DR GT SCH (06:28)
[2018-05-06] MEDS: GLUCERNA 1.2 1000ML LIQUID GT PRN (07:18)
[2018-05-06 08:00] VITALS: BP 117/74
[2018-05-06] MEDS: ACIDOPHILUS/BULGARICUS CHEW TAB GT SCH ×2 (08:10→21:42)
[2018-05-06] MEDS: DOCUSATE SODIUM 100 MG/10 ML LIQUID UDC GT SCH ×2 (08:10→21:42)
[2018-05-06] MEDS: BACLOFEN 20 MG TABLET GT SCH ×4 (08:13→21:42)
[2018-05-06] MEDS: METOPROLOL TARTRATE 50 MG TABLET GT SCH ×2 (08:13→21:42)
[2018-05-06] MEDS: NUTRISOURCE FIBER 4 GM PACKET GT SCH ×2 (08:13→21:42)
[2018-05-06] MEDS: SIMETHICONE 40 MG/0.6 ML, 30ML BOTTLE GT SCH ×3 (08:13→17:55)
[2018-05-06] MEDS: HYDROGEN PEROXIDE 3% 118 ML BOTTLE TP SCH ×2 (08:14→21:43)
[2018-05-06] MEDS: NYSTATIN CREAM 30 GM TUBE TP SCH ×3 (08:14→21:43)
[2018-05-06] MEDS: SERTRALINE HCL 50 MG TABLET GT SCH (08:14)
[2018-05-06] MEDS: Z GUARD REMEDY PASTE 57 GM TUBE TOP SCH ×2 (08:14→21:43)
--- NOTE | 2018-05-06 10:30 | NUR ---
SEEN BY GLENN MORGAN.
--- NOTE | 2018-05-06 12:55 | NUR ---
SEEN BY DR MERIDA, PROTECTIVE SIGNAL INSTALLER WITH NEW ORDERS NOTED AND CARRIED OUT.
--- NOTE | 2018-05-06 13:30 | NUR ---
SEEN BY ABIEL MORGAN.
--- NOTE | 2018-05-06 14:00 | NUR ---
NEW ORDER WAS CARRIED OUT FROM GLENN YEMargo P.A. FOR PPD TEST.
[2018-05-06 21:32] VITALS: BP 106/69
[2018-05-06] MEDS: ASCORBIC ACID 500 MG TABLET PO SCH (21:42)
[2018-05-07] MEDS: OMEPRAZOLE 20 MG CAPSULE.DR GT SCH (06:09)
[2018-05-07] MEDS: MULTIVIT, IRON, MIN NO. 8, FA TABLET GT SCH (06:10)
[2018-05-07] MEDS: GLUCERNA 1.2 1000ML LIQUID GT PRN (06:57)
[2018-05-07 08:00] VITALS: BP 141/90
[2018-05-07] MEDS: BACLOFEN 20 MG TABLET GT SCH ×4 (09:47→21:48)
[2018-05-07] MEDS: DOCUSATE SODIUM 100 MG/10 ML LIQUID UDC GT SCH ×2 (09:47→21:47)
[2018-05-07] MEDS: ACIDOPHILUS/BULGARICUS CHEW TAB GT SCH ×2 (09:47→21:48)
[2018-05-07] MEDS: SERTRALINE HCL 50 MG TABLET GT SCH (09:48)
[2018-05-07] MEDS: NUTRISOURCE FIBER 4 GM PACKET GT SCH ×2 (09:48→21:48)
[2018-05-07] MEDS: METOPROLOL TARTRATE 50 MG TABLET GT SCH ×2 (09:48→21:48)
[2018-05-07] MEDS: SIMETHICONE 40 MG/0.6 ML, 30ML BOTTLE GT SCH ×3 (09:48→17:14)
[2018-05-07] MEDS: Z GUARD REMEDY PASTE 57 GM TUBE TOP SCH ×2 (09:48→21:48)
[2018-05-07] MEDS: HYDROGEN PEROXIDE 3% 118 ML BOTTLE TP SCH ×2 (09:48→21:48)
[2018-05-07] MEDS: NYSTATIN CREAM 30 GM TUBE TP SCH ×4 (09:49→21:00)
--- NOTE | 2018-05-07 14:38 | NUR ---
INTERDISCIPLINARY PLAN OF CARE CONFERENCE was held today Patient's family was unable to attend the meeting. Dr. Heaton and the Interdisciplinary Team reviewed the current plan of care in detail. RN reported on patient's medical condition and treatment plan following recent dermatology consultation on 05/06/18 (see dermatology notes). No major changes in condition were reported. See RN IDT conference notes. See also all other disciplines IDT notes and physician's progress notes for additional details.
--- NOTE | 2018-05-07 14:49 | NUR ---
Pharmacy Update from today's 05/07/18 IDT meeting VS: Temp 98.2 BP 96/67 HR 77 LABS: (from 03/04/18, no new labs) Wbc 8.3H/H 12.4/38.9Plt 285 Na 138K 4.2Cl 106CO2 24BUN/SCr 16/0.7 BS 119 Ca 9.2 MEDICATION USE REVIEWED: > Pt is not on any anti-epileptic medications > Pt is on Zoloft 50mg daily for depression m/b episodes of crying; No GDR planned for pt d/t contraindication of persistent cry episodes and repeated failed GDRs in the past (see MD note). Patient had x22 episodes in Nov, increase d/t recent changes in charting/monitoring on floor, but pt's condition remains about baseline > Pt is on depo-provera [id number] for heavy menstruation, last given 03/31/18 > PRN MED USAGE: (Mar) Tylenol 650mg for mild pain used x4 Tylenol for temp x0 Tylenol 1000mg mod pain x0 [place] severe pain x1 Bisacodyl x2 NEW ORDERS NOTED: > Nystatin cream to back rashes 04/18-05/06, extended to 05/13 for neck rash > Triamcinolone to left neck rashes 05/06-05/10 Patient was reviewed and discussed in detail with no medication issues at this time. Pt remains stable, no further rx recommendations, will continue to monitor
[2018-05-07 20:30] VITALS: BP 115/76
[2018-05-07] MEDS: TRIAMCINOLONE ACET 0.1% CREAM 15 GM TUBE TP SCH (21:00)
[2018-05-07] MEDS ORDERED: TUBERCULIN,PURIF.PROT.DERIV. 5 TU/0.1 ML TEST ID ONE (21:00)
[2018-05-07] MEDS: ASCORBIC ACID 500 MG TABLET PO SCH (21:48)
[2018-05-08] MEDS: OMEPRAZOLE 20 MG CAPSULE.DR GT SCH (06:48)
[2018-05-08 08:08] VITALS: BP 105/71
[2018-05-08] MEDS: DOCUSATE SODIUM 100 MG/10 ML LIQUID UDC GT SCH ×2 (08:21→20:47)
[2018-05-08] MEDS: ACIDOPHILUS/BULGARICUS CHEW TAB GT SCH ×2 (08:21→20:47)
[2018-05-08] MEDS: BACLOFEN 20 MG TABLET GT SCH ×4 (08:22→20:48)
[2018-05-08] MEDS: METOPROLOL TARTRATE 50 MG TABLET GT SCH ×2 (08:22→20:48)
[2018-05-08] MEDS: SIMETHICONE 40 MG/0.6 ML, 30ML BOTTLE GT SCH ×3 (08:23→17:01)
[2018-05-08] MEDS: NUTRISOURCE FIBER 4 GM PACKET GT SCH ×2 (08:23→20:48)
[2018-05-08] MEDS: SERTRALINE HCL 50 MG TABLET GT SCH (08:24)
[2018-05-08] MEDS: Z GUARD REMEDY PASTE 57 GM TUBE TOP SCH ×2 (08:24→20:49)
[2018-05-08] MEDS: HYDROGEN PEROXIDE 3% 118 ML BOTTLE TP SCH ×2 (08:25→20:49)
[2018-05-08] MEDS: NYSTATIN CREAM 30 GM TUBE TP SCH ×4 (08:25→20:49)
--- NOTE | 2018-05-08 13:00 | NUR ---
SEEN BY ABIEL MORGAN.
[2018-05-08] MEDS: ASCORBIC ACID 500 MG TABLET PO SCH (20:48)
[2018-05-08] MEDS: TRIAMCINOLONE ACET 0.1% CREAM 15 GM TUBE TP SCH (20:49)
[2018-05-08 20:50] VITALS: BP 119/85
[2018-05-09] MEDS: GLUCERNA 1.2 1000ML LIQUID GT PRN (03:13)
[2018-05-09] MEDS: MULTIVIT, IRON, MIN NO. 8, FA TABLET GT SCH (06:10)
[2018-05-09] MEDS: OMEPRAZOLE 20 MG CAPSULE.DR GT SCH (06:10)
[2018-05-09 08:00] VITALS: BP 149/90
[2018-05-09] MEDS: HYDROGEN PEROXIDE 3% 118 ML BOTTLE TP SCH ×2 (09:09→20:48)
[2018-05-09] MEDS: NUTRISOURCE FIBER 4 GM PACKET GT SCH ×2 (09:09→20:48)
[2018-05-09] MEDS: NYSTATIN CREAM 30 GM TUBE TP SCH ×3 (09:09→16:56)
[2018-05-09] MEDS: METOPROLOL TARTRATE 50 MG TABLET GT SCH ×2 (09:09→20:48)
[2018-05-09] MEDS: BACLOFEN 20 MG TABLET GT SCH ×4 (09:09→20:48)
[2018-05-09] MEDS: DOCUSATE SODIUM 100 MG/10 ML LIQUID UDC GT SCH ×2 (09:09→20:48)
[2018-05-09] MEDS: Z GUARD REMEDY PASTE 57 GM TUBE TOP SCH ×2 (09:09→20:48)
[2018-05-09] MEDS: SIMETHICONE 40 MG/0.6 ML, 30ML BOTTLE GT SCH ×3 (09:09→16:56)
[2018-05-09] MEDS: SERTRALINE HCL 50 MG TABLET GT SCH (09:09)
[2018-05-09] MEDS: ACIDOPHILUS/BULGARICUS CHEW TAB GT SCH ×2 (09:09→20:48)
[2018-05-09 20:09] VITALS: BP 127/80
[2018-05-09] MEDS: ASCORBIC ACID 500 MG TABLET PO SCH (20:48)
[2018-05-09] MEDS: TRIAMCINOLONE ACET 0.1% CREAM 15 GM TUBE TP SCH (20:48)
[2018-05-10] MEDS: GLUCERNA 1.2 1000ML LIQUID GT PRN (01:38)
[2018-05-10] MEDS: OMEPRAZOLE 20 MG CAPSULE.DR GT SCH (05:47)
[2018-05-10 07:53] VITALS: BP 118/68
[2018-05-10] MEDS: SIMETHICONE 40 MG/0.6 ML, 30ML BOTTLE GT SCH ×3 (09:00→17:11)
[2018-05-10] MEDS: NUTRISOURCE FIBER 4 GM PACKET GT SCH ×2 (09:00→21:51)
[2018-05-10] MEDS: METOPROLOL TARTRATE 50 MG TABLET GT SCH ×2 (09:00→21:51)
[2018-05-10] MEDS: DOCUSATE SODIUM 100 MG/10 ML LIQUID UDC GT SCH ×2 (09:00→21:53)
[2018-05-10] MEDS: ACIDOPHILUS/BULGARICUS CHEW TAB GT SCH ×2 (09:00→21:50)
[2018-05-10] MEDS: NYSTATIN CREAM 30 GM TUBE TP SCH ×2 (09:00→17:13)
[2018-05-10] MEDS: HYDROGEN PEROXIDE 3% 118 ML BOTTLE TP SCH ×2 (09:00→21:52)
[2018-05-10] MEDS: Z GUARD REMEDY PASTE 57 GM TUBE TOP SCH ×2 (09:00→21:52)
[2018-05-10] MEDS: BACLOFEN 20 MG TABLET GT SCH ×4 (09:00→21:51)
[2018-05-10] MEDS: SERTRALINE HCL 50 MG TABLET GT SCH (09:00)
[2018-05-10 20:33] VITALS: BP 133/89
[2018-05-10] MEDS: ASCORBIC ACID 500 MG TABLET PO SCH (21:52)
[2018-05-10] MEDS: TRIAMCINOLONE ACET 0.1% CREAM 15 GM TUBE TP SCH (21:52)
[2018-05-11] MEDS: MULTIVIT, IRON, MIN NO. 8, FA TABLET GT SCH (05:28)
[2018-05-11] MEDS: OMEPRAZOLE 20 MG CAPSULE.DR GT SCH (05:28)
[2018-05-11 08:00] VITALS: BP 111/66
[2018-05-11] MEDS: ACIDOPHILUS/BULGARICUS CHEW TAB GT SCH ×2 (09:10→21:03)
[2018-05-11] MEDS: DOCUSATE SODIUM 100 MG/10 ML LIQUID UDC GT SCH ×2 (09:10→21:03)
[2018-05-11] MEDS: BACLOFEN 20 MG TABLET GT SCH ×4 (09:11→21:03)
[2018-05-11] MEDS: Z GUARD REMEDY PASTE 57 GM TUBE TOP SCH ×2 (09:12→21:04)
[2018-05-11] MEDS: METOPROLOL TARTRATE 50 MG TABLET GT SCH ×2 (09:12→21:03)
[2018-05-11] MEDS: SIMETHICONE 40 MG/0.6 ML, 30ML BOTTLE GT SCH ×3 (09:12→16:44)
[2018-05-11] MEDS: NUTRISOURCE FIBER 4 GM PACKET GT SCH ×2 (09:12→21:03)
[2018-05-11] MEDS: HYDROGEN PEROXIDE 3% 118 ML BOTTLE TP SCH ×2 (09:12→21:04)
[2018-05-11] MEDS: SERTRALINE HCL 50 MG TABLET GT SCH (09:12)
[2018-05-11] MEDS: NYSTATIN CREAM 30 GM TUBE TP SCH ×2 (09:13→16:44)
[2018-05-11 20:00] VITALS: BP 120/75
[2018-05-11] MEDS: ASCORBIC ACID 500 MG TABLET PO SCH (21:03)
[2018-05-11] MEDS: TRIAMCINOLONE ACET 0.1% CREAM 15 GM TUBE TP SCH (21:04)
[2018-05-12] MEDS: OMEPRAZOLE 20 MG CAPSULE.DR GT SCH (05:26)
[2018-05-12 08:00] VITALS: BP 131/85
[2018-05-12] MEDS: DOCUSATE SODIUM 100 MG/10 ML LIQUID UDC GT SCH ×2 (08:42→21:00)
[2018-05-12] MEDS: ACIDOPHILUS/BULGARICUS CHEW TAB GT SCH ×2 (08:42→21:00)
[2018-05-12] MEDS: BACLOFEN 20 MG TABLET GT SCH ×4 (08:42→21:00)
[2018-05-12] MEDS: NYSTATIN CREAM 30 GM TUBE TP SCH ×2 (08:43→16:08)
[2018-05-12] MEDS: HYDROGEN PEROXIDE 3% 118 ML BOTTLE TP SCH ×2 (08:43→21:00)
[2018-05-12] MEDS: NUTRISOURCE FIBER 4 GM PACKET GT SCH ×2 (08:43→21:00)
[2018-05-12] MEDS: SERTRALINE HCL 50 MG TABLET GT SCH (08:43)
[2018-05-12] MEDS: SIMETHICONE 40 MG/0.6 ML, 30ML BOTTLE GT SCH ×3 (08:43→16:08)
[2018-05-12] MEDS: METOPROLOL TARTRATE 50 MG TABLET GT SCH ×2 (08:43→21:00)
[2018-05-12] MEDS: Z GUARD REMEDY PASTE 57 GM TUBE TOP SCH ×2 (08:43→21:00)
[2018-05-12] MEDS: ASCORBIC ACID 500 MG TABLET PO SCH (21:00)
[2018-05-12 21:06] VITALS: BP 130/80
[2018-05-13] MEDS: GLUCERNA 1.2 1000ML LIQUID GT PRN (01:28)
[2018-05-13] MEDS: OMEPRAZOLE 20 MG CAPSULE.DR GT SCH (06:15)
[2018-05-13] MEDS: MULTIVIT, IRON, MIN NO. 8, FA TABLET GT SCH (06:15)
[2018-05-13 08:00] VITALS: BP 124/74
[2018-05-13] MEDS: ACIDOPHILUS/BULGARICUS CHEW TAB GT SCH ×2 (09:26→20:51)
[2018-05-13] MEDS: DOCUSATE SODIUM 100 MG/10 ML LIQUID UDC GT SCH ×2 (09:26→20:50)
[2018-05-13] MEDS: BACLOFEN 20 MG TABLET GT SCH ×4 (09:26→20:51)
[2018-05-13] MEDS: NUTRISOURCE FIBER 4 GM PACKET GT SCH ×2 (09:27→20:52)
[2018-05-13] MEDS: HYDROGEN PEROXIDE 3% 118 ML BOTTLE TP SCH ×2 (09:27→20:53)
[2018-05-13] MEDS: Z GUARD REMEDY PASTE 57 GM TUBE TOP SCH ×2 (09:27→20:53)
[2018-05-13] MEDS: SIMETHICONE 40 MG/0.6 ML, 30ML BOTTLE GT SCH ×3 (09:27→17:08)
[2018-05-13] MEDS: NYSTATIN CREAM 30 GM TUBE TP SCH (09:27)
[2018-05-13] MEDS: METOPROLOL TARTRATE 50 MG TABLET GT SCH ×2 (09:27→20:52)
[2018-05-13] MEDS: SERTRALINE HCL 50 MG TABLET GT SCH (09:27)
[2018-05-13 20:34] VITALS: BP 125/78
[2018-05-13] MEDS: ASCORBIC ACID 500 MG TABLET PO SCH (20:53)
[2018-05-14] MEDS: GLUCERNA 1.2 1000ML LIQUID GT PRN (01:15)
[2018-05-14] MEDS: OMEPRAZOLE 20 MG CAPSULE.DR GT SCH (05:07)
[2018-05-14 08:00] VITALS: BP 128/84
[2018-05-14] MEDS: BACLOFEN 20 MG TABLET GT SCH ×4 (08:46→21:41)
[2018-05-14] MEDS: DOCUSATE SODIUM 100 MG/10 ML LIQUID UDC GT SCH ×2 (08:46→21:41)
[2018-05-14] MEDS: ACIDOPHILUS/BULGARICUS CHEW TAB GT SCH ×2 (08:46→21:41)
[2018-05-14] MEDS: METOPROLOL TARTRATE 50 MG TABLET GT SCH ×2 (08:52→21:42)
[2018-05-14] MEDS: NUTRISOURCE FIBER 4 GM PACKET GT SCH ×2 (08:52→21:42)
[2018-05-14] MEDS: SERTRALINE HCL 50 MG TABLET GT SCH (08:52)
[2018-05-14] MEDS: SIMETHICONE 40 MG/0.6 ML, 30ML BOTTLE GT SCH ×3 (08:52→16:36)
[2018-05-14] MEDS: HYDROGEN PEROXIDE 3% 118 ML BOTTLE TP SCH ×2 (08:53→21:42)
[2018-05-14] MEDS: Z GUARD REMEDY PASTE 57 GM TUBE TOP SCH ×2 (08:53→21:42)
[2018-05-14 20:33] VITALS: BP 121/74
[2018-05-14] MEDS: ASCORBIC ACID 500 MG TABLET PO SCH (21:42)
[2018-05-15] MEDS: GLUCERNA 1.2 1000ML LIQUID GT PRN (01:57)
[2018-05-15] MEDS: OMEPRAZOLE 20 MG CAPSULE.DR GT SCH (05:38)
[2018-05-15] MEDS: MULTIVIT, IRON, MIN NO. 8, FA TABLET GT SCH (05:38)
[2018-05-15 08:00] VITALS: BP 136/91
[2018-05-15] MEDS: ACIDOPHILUS/BULGARICUS CHEW TAB GT SCH ×2 (09:05→21:06)
[2018-05-15] MEDS: DOCUSATE SODIUM 100 MG/10 ML LIQUID UDC GT SCH ×2 (09:05→21:06)
[2018-05-15] MEDS: BACLOFEN 20 MG TABLET GT SCH ×4 (09:05→21:06)
[2018-05-15] MEDS: SIMETHICONE 40 MG/0.6 ML, 30ML BOTTLE GT SCH ×3 (09:05→17:03)
[2018-05-15] MEDS: NUTRISOURCE FIBER 4 GM PACKET GT SCH ×2 (09:06→21:07)
[2018-05-15] MEDS: SERTRALINE HCL 50 MG TABLET GT SCH (09:06)
[2018-05-15] MEDS: HYDROGEN PEROXIDE 3% 118 ML BOTTLE TP SCH ×2 (09:07→21:08)
[2018-05-15] MEDS: METOPROLOL TARTRATE 50 MG TABLET GT SCH ×2 (09:07→21:07)
[2018-05-15] MEDS: Z GUARD REMEDY PASTE 57 GM TUBE TOP SCH ×2 (09:07→21:08)
[2018-05-15 18:18] VITALS: BP 136/91
--- NOTE | 2018-05-15 19:15 | NUR ---
Seen and examined by Sudarshan,no new orders
[2018-05-15 20:24] VITALS: BP 126/81
[2018-05-15] MEDS: ASCORBIC ACID 500 MG TABLET PO SCH (21:08)
[2018-05-16] MEDS: GLUCERNA 1.2 1000ML LIQUID GT PRN (00:54)
[2018-05-16] MEDS: BISACODYL 10 MG SUPP.RECT RC PRN (02:00)
[2018-05-16] MEDS: OMEPRAZOLE 20 MG CAPSULE.DR GT SCH (06:09)
[2018-05-16] MEDS: Z GUARD REMEDY PASTE 57 GM TUBE TOP SCH ×2 (08:01→21:29)
[2018-05-16] MEDS: SIMETHICONE 40 MG/0.6 ML, 30ML BOTTLE GT SCH ×3 (08:01→17:38)
[2018-05-16] MEDS: SERTRALINE HCL 50 MG TABLET GT SCH (08:01)
[2018-05-16] MEDS: HYDROGEN PEROXIDE 3% 118 ML BOTTLE TP SCH ×2 (08:01→21:30)
[2018-05-16] MEDS: METOPROLOL TARTRATE 50 MG TABLET GT SCH ×2 (08:01→21:29)
[2018-05-16] MEDS: NUTRISOURCE FIBER 4 GM PACKET GT SCH ×2 (08:01→21:29)
[2018-05-16] MEDS: ACIDOPHILUS/BULGARICUS CHEW TAB GT SCH ×2 (08:01→21:28)
[2018-05-16] MEDS: BACLOFEN 20 MG TABLET GT SCH ×4 (08:01→21:28)
[2018-05-16] MEDS: DOCUSATE SODIUM 100 MG/10 ML LIQUID UDC GT SCH ×2 (08:01→21:28)
[2018-05-16 08:02] VITALS: BP 131/86
--- NOTE | 2018-05-16 14:50 | NUR ---
SEEN BY GLENN MORGAN.
[2018-05-16 20:59] VITALS: BP 120/75
[2018-05-16] MEDS: ASCORBIC ACID 500 MG TABLET PO SCH (21:29)
[2018-05-16] MEDS: COD LIVER OIL/ZINC OXIDE OINT 113 GM TUBE TP SCH ×2 (21:29)
[2018-05-17] MEDS: GLUCERNA 1.2 1000ML LIQUID GT PRN ×2 (01:05→17:15)
[2018-05-17] MEDS: OMEPRAZOLE 20 MG CAPSULE.DR GT SCH (05:49)
[2018-05-17] MEDS: MULTIVIT, IRON, MIN NO. 8, FA TABLET GT SCH (05:49)
[2018-05-17] MEDS: METOPROLOL TARTRATE 50 MG TABLET GT SCH ×2 (08:24→20:51)
[2018-05-17] MEDS: BACLOFEN 20 MG TABLET GT SCH ×4 (08:26→20:50)
[2018-05-17] MEDS: DOCUSATE SODIUM 100 MG/10 ML LIQUID UDC GT SCH ×2 (08:26→20:50)
[2018-05-17] MEDS: ACIDOPHILUS/BULGARICUS CHEW TAB GT SCH ×2 (08:26→20:50)
[2018-05-17] MEDS: COD LIVER OIL/ZINC OXIDE OINT 113 GM TUBE TP SCH ×4 (08:27→20:52)
[2018-05-17] MEDS: SERTRALINE HCL 50 MG TABLET GT SCH (08:27)
[2018-05-17] MEDS: Z GUARD REMEDY PASTE 57 GM TUBE TOP SCH ×2 (08:27→20:51)
[2018-05-17] MEDS: NUTRISOURCE FIBER 4 GM PACKET GT SCH ×2 (08:27→20:51)
[2018-05-17] MEDS: SIMETHICONE 40 MG/0.6 ML, 30ML BOTTLE GT SCH ×3 (08:27→16:51)
[2018-05-17] MEDS: HYDROGEN PEROXIDE 3% 118 ML BOTTLE TP SCH ×2 (08:28→20:52)
[2018-05-17 08:56] VITALS: BP 99/71
[2018-05-17 20:15] VITALS: BP 125/82
[2018-05-17] MEDS: ASCORBIC ACID 500 MG TABLET PO SCH (20:51)
[2018-05-18] MEDS: GLUCERNA 1.2 1000ML LIQUID GT PRN (01:08)
[2018-05-18] MEDS: OMEPRAZOLE 20 MG CAPSULE.DR GT SCH (05:34)
[2018-05-18] MEDS: METOPROLOL TARTRATE 50 MG TABLET GT SCH ×2 (08:11→20:38)
[2018-05-18] MEDS: BACLOFEN 20 MG TABLET GT SCH ×4 (08:11→20:38)
[2018-05-18] MEDS: DOCUSATE SODIUM 100 MG/10 ML LIQUID UDC GT SCH ×2 (08:11→20:38)
[2018-05-18] MEDS: NUTRISOURCE FIBER 4 GM PACKET GT SCH ×2 (08:11→20:38)
[2018-05-18] MEDS: SIMETHICONE 40 MG/0.6 ML, 30ML BOTTLE GT SCH ×3 (08:11→17:14)
[2018-05-18] MEDS: ACIDOPHILUS/BULGARICUS CHEW TAB GT SCH ×2 (08:11→20:38)
[2018-05-18] MEDS: SERTRALINE HCL 50 MG TABLET GT SCH (08:11)
[2018-05-18] MEDS: Z GUARD REMEDY PASTE 57 GM TUBE TOP SCH ×2 (08:12→20:38)
[2018-05-18] MEDS: HYDROGEN PEROXIDE 3% 118 ML BOTTLE TP SCH ×2 (08:12→20:39)
[2018-05-18] MEDS: COD LIVER OIL/ZINC OXIDE OINT 113 GM TUBE TP SCH ×4 (08:12→20:38)
[2018-05-18 11:48] VITALS: BP 137/63
[2018-05-18] MEDS: ASCORBIC ACID 500 MG TABLET PO SCH (20:38)
[2018-05-18 20:45] VITALS: BP 125/84
[2018-05-19] MEDS: GLUCERNA 1.2 1000ML LIQUID GT PRN (00:19)
[2018-05-19] MEDS: OMEPRAZOLE 20 MG CAPSULE.DR GT SCH (05:33)
[2018-05-19] MEDS: MULTIVIT, IRON, MIN NO. 8, FA TABLET GT SCH (05:33)
[2018-05-19 08:00] VITALS: BP 139/73
[2018-05-19] MEDS: DOCUSATE SODIUM 100 MG/10 ML LIQUID UDC GT SCH ×2 (09:52→21:22)
[2018-05-19] MEDS: ACIDOPHILUS/BULGARICUS CHEW TAB GT SCH ×2 (09:52→21:22)
[2018-05-19] MEDS: BACLOFEN 20 MG TABLET GT SCH ×4 (09:52→21:22)
[2018-05-19] MEDS: SERTRALINE HCL 50 MG TABLET GT SCH (09:53)
[2018-05-19] MEDS: Z GUARD REMEDY PASTE 57 GM TUBE TOP SCH ×2 (09:53→21:27)
[2018-05-19] MEDS: COD LIVER OIL/ZINC OXIDE OINT 113 GM TUBE TP SCH ×4 (09:53→21:27)
[2018-05-19] MEDS: SIMETHICONE 40 MG/0.6 ML, 30ML BOTTLE GT SCH ×3 (09:53→16:20)
[2018-05-19] MEDS: NUTRISOURCE FIBER 4 GM PACKET GT SCH ×2 (09:53→21:26)
[2018-05-19] MEDS: METOPROLOL TARTRATE 50 MG TABLET GT SCH ×2 (09:53→21:25)
[2018-05-19] MEDS: HYDROGEN PEROXIDE 3% 118 ML BOTTLE TP SCH ×2 (09:53→21:28)
[2018-05-19 20:05] VITALS: BP 115/88
[2018-05-19] MEDS: ASCORBIC ACID 500 MG TABLET PO SCH (21:27)
[2018-05-20] MEDS: GLUCERNA 1.2 1000ML LIQUID GT PRN ×2 (01:14→22:37)
[2018-05-20] MEDS: OMEPRAZOLE 20 MG CAPSULE.DR GT SCH (06:00)
[2018-05-20 08:00] VITALS: BP 148/88
[2018-05-20] MEDS: NUTRISOURCE FIBER 4 GM PACKET GT SCH ×2 (09:00→21:01)
[2018-05-20] MEDS: METOPROLOL TARTRATE 50 MG TABLET GT SCH ×2 (09:00→21:01)
[2018-05-20] MEDS: Z GUARD REMEDY PASTE 57 GM TUBE TOP SCH ×2 (09:00→21:03)
[2018-05-20] MEDS: BACLOFEN 20 MG TABLET GT SCH ×4 (09:00→21:01)
[2018-05-20] MEDS: COD LIVER OIL/ZINC OXIDE OINT 113 GM TUBE TP SCH ×4 (09:00→21:03)
[2018-05-20] MEDS: DOCUSATE SODIUM 100 MG/10 ML LIQUID UDC GT SCH ×2 (09:00→21:00)
[2018-05-20] MEDS: SIMETHICONE 40 MG/0.6 ML, 30ML BOTTLE GT SCH ×3 (09:00→17:00)
[2018-05-20] MEDS: ACIDOPHILUS/BULGARICUS CHEW TAB GT SCH ×2 (09:00→21:01)
[2018-05-20] MEDS: HYDROGEN PEROXIDE 3% 118 ML BOTTLE TP SCH ×2 (09:00→21:03)
[2018-05-20] MEDS: SERTRALINE HCL 50 MG TABLET GT SCH (09:00)
--- NOTE | 2018-05-20 16:09 | NUR ---
SEEN BY RONNIE MORGAN.
[2018-05-20 20:19] VITALS: BP 117/79
[2018-05-20] MEDS: ASCORBIC ACID 500 MG TABLET PO SCH (21:03)
[2018-05-21] MEDS: OMEPRAZOLE 20 MG CAPSULE.DR GT SCH (06:09)
[2018-05-21] MEDS: MULTIVIT, IRON, MIN NO. 8, FA TABLET GT SCH (06:09)
[2018-05-21 08:53] VITALS: BP 104/61
[2018-05-21] MEDS: DOCUSATE SODIUM 100 MG/10 ML LIQUID UDC GT SCH ×2 (09:53→20:33)
[2018-05-21] MEDS: BACLOFEN 20 MG TABLET GT SCH ×4 (09:53→20:33)
[2018-05-21] MEDS: ACIDOPHILUS/BULGARICUS CHEW TAB GT SCH ×2 (09:53→20:33)
[2018-05-21] MEDS: METOPROLOL TARTRATE 50 MG TABLET GT SCH ×2 (09:54→20:33)
[2018-05-21] MEDS: NUTRISOURCE FIBER 4 GM PACKET GT SCH ×2 (09:54→20:33)
[2018-05-21] MEDS: SERTRALINE HCL 50 MG TABLET GT SCH (09:54)
[2018-05-21] MEDS: SIMETHICONE 40 MG/0.6 ML, 30ML BOTTLE GT SCH ×3 (09:54→17:00)
[2018-05-21] MEDS: Z GUARD REMEDY PASTE 57 GM TUBE TOP SCH ×2 (09:55→20:33)
[2018-05-21] MEDS: COD LIVER OIL/ZINC OXIDE OINT 113 GM TUBE TP SCH ×4 (09:55→20:33)
[2018-05-21] MEDS: HYDROGEN PEROXIDE 3% 118 ML BOTTLE TP SCH ×2 (09:56→20:34)
[2018-05-21 20:00] VITALS: BP 126/83
[2018-05-21] MEDS: ASCORBIC ACID 500 MG TABLET PO SCH (20:33)
[2018-05-22] MEDS: GLUCERNA 1.2 1000ML LIQUID GT PRN (00:30)
[2018-05-22] MEDS: OMEPRAZOLE 20 MG CAPSULE.DR GT SCH (05:18)
[2018-05-22 09:00] VITALS: BP 104/55
[2018-05-22] MEDS: SERTRALINE HCL 50 MG TABLET GT SCH (09:00)
[2018-05-22] MEDS: COD LIVER OIL/ZINC OXIDE OINT 113 GM TUBE TP SCH ×2 (09:00)
[2018-05-22] MEDS: Z GUARD REMEDY PASTE 57 GM TUBE TOP SCH (09:00)
[2018-05-22] MEDS: ACIDOPHILUS/BULGARICUS CHEW TAB GT SCH (09:00)
[2018-05-22] MEDS: HYDROGEN PEROXIDE 3% 118 ML BOTTLE TP SCH (09:00)
[2018-05-22] MEDS: SIMETHICONE 40 MG/0.6 ML, 30ML BOTTLE GT SCH (09:00)
[2018-05-22] MEDS: NUTRISOURCE FIBER 4 GM PACKET GT SCH (09:00)
[2018-05-22] MEDS: DOCUSATE SODIUM 100 MG/10 ML LIQUID UDC GT SCH (09:00)
[2018-05-22] MEDS: METOPROLOL TARTRATE 50 MG TABLET GT SCH (09:00)
[2018-05-22] MEDS: BACLOFEN 20 MG TABLET GT SCH (09:00)
== END 2018-05-20 11:59 | disposition other institution (70) | DRG 133 ==
LOC: SA → UNDOADMIN → SA 00:01
PROVIDERS: ADMIT Internal Medicine; ATTEND Internal Medicine
DX: J96.11 Chronic respiratory failure with hypoxia (principal); G93.1 Anoxic brain damage, not elsewhere classified; R40.3 Persistent vegetative state; Z93.0 Tracheostomy status; R53.2 Functional quadriplegia; R13.10 Dysphagia, unspecified; N39.0 Urinary tract infection, site not specified; E11.9 Type 2 diabetes mellitus without complications; B95.2 Enterococcus as the cause of diseases classified elsewhere; I11.0 Hypertensive heart disease with heart failure; E87.6 Hypokalemia; Z93.1 Gastrostomy status; Z88.0 Allergy status to penicillin; F32.9 Major depressive disorder, single episode, unspecified; Z86.74 Personal history of sudden cardiac arrest; L21.9 Seborrheic dermatitis, unspecified; M24.50 Contracture, unspecified joint; D56.1 Beta thalassemia; E66.01 Morbid (severe) obesity due to excess calories; Z68.21 Body mass index [BMI] 21.0-21.9, adult; I10 Essential (primary) hypertension; G40.909 Epilepsy, unspecified, not intractable, without status epilepticus; Z79.899 Other long term (current) drug therapy; L21.0 Seborrhea capitis; D64.9 Anemia, unspecified; R14.0 Abdominal distension (gaseous)
CPT/HCPCS: 36415; 71045; 74018; 84443; 85025; 86580; 90686; A4663; Q9963

== ENCOUNTER 2018-05-21 | Inpatient (IN) | END 2019-05-20 23:59 | disposition still patient (30) | DRG 133 | DX: J96.11 Chronic respiratory failure with hypoxia (principal); G93.1 Anoxic brain damage, not elsewhere classified; R40.3 Persistent vegetative state; Z93.0 Tracheostomy status; R53.2 Functional quadriplegia; R13.10 Dysphagia, unspecified; E11.9 Type 2 diabetes mellitus without complications; Z93.1 Gastrostomy status; Z88.0 Allergy status to penicillin; Z86.74 Personal history of sudden cardiac arrest; F32.9 Major depressive disorder, single episode, unspecified; M24.50 Contracture, unspecified joint; D56.1 Beta thalassemia; E66.01 Morbid (severe) obesity due to excess calories; Z68.21 Body mass index [BMI] 21.0-21.9, adult; I10 Essential (primary) hypertension; G40.909 Epilepsy, unspecified, not intractable, without status epilepticus; Z79.899 Other long term (current) drug therapy; B37.0 Candidal stomatitis; H00.011 Hordeolum externum right upper eyelid; H00.014 Hordeolum externum left upper eyelid; H00.14 Chalazion left upper eyelid; J98.11 Atelectasis; K21.9 Gastro-esophageal reflux disease without esophagitis; L03.90 Cellulitis, unspecified; L21.0 Seborrhea capitis; L27.0 Generalized skin eruption due to drugs and medicaments taken internally; L40.9 Psoriasis, unspecified; N39.0 Urinary tract infection, site not specified; T36.1X5A Adverse effect of cephalosporins and other beta-lactam antibiotics, initial encounter; Z87.440 Personal history of urinary (tract) infections; Z88.1 Allergy status to other antibiotic agents; B96.1 Klebsiella pneumoniae [K. pneumoniae] as the cause of diseases classified elsewhere; M24.562 Contracture, left knee ==

== ENCOUNTER 2019-09-10 06:24 | Day surgery (SDC) | payer MEDICAID ==
[2019-09-10] MEDS ORDERED: PROPOFOL 200 MG/20 ML BOTTLE IV ONE (06:25)
[2019-09-10] MEDS ORDERED: LIDOCAINE-MPF 2% 5 ML VIAL IJ ONE (06:25)
[2019-09-10] MEDS ORDERED: IV NORMAL SALINE 1000 ML BAG IV ONE (06:25)
--- NOTE | 2019-09-10 07:55 | NUR ---
Pt v/s 97.8,p 71,bp 106/60,r 18 ,o2 sat 98%.
[2019-09-10 07:57] VITALS: BP 106/60
--- NOTE | 2019-09-10 07:59 | NUR ---
Pt transfer to Surgery for EGD,Npo since 12 MN ,suctioned before the transfer.
== END 2019-09-10 09:15 ==
LOC: DS 06:24
PROVIDERS: ATTEND Internal Medicine Gastroenterology
DX: K92.1 Melena (principal); K29.70 Gastritis, unspecified, without bleeding; G93.1 Anoxic brain damage, not elsewhere classified; J96.10 Chronic respiratory failure, unspecified whether with hypoxia or hypercapnia; R29.818 Other symptoms and signs involving the nervous system; Z88.0 Allergy status to penicillin; Z88.1 Allergy status to other antibiotic agents; Z88.2 Allergy status to sulfonamides; Z88.8 Allergy status to other drugs, medicaments and biological substances; Z79.899 Other long term (current) drug therapy
CPT/HCPCS: 43239; 88305; J3490; A4217; J7030

== ENCOUNTER → 2020-05-20 23:59 | Inpatient (IN) | payer MEDICAID ==
[2019-05-22 08:00] VITALS: BP 124/77
[2019-05-22] MEDS: GLUCERNA 1.2 1000ML LIQUID GT PRN (10:29)
[2019-05-22] MEDS: SIMETHICONE 80 MG TAB.CHEW GT SCH (16:43)
[2019-05-22] MEDS: BACLOFEN 20 MG TABLET GT SCH ×2 (16:43→21:00)
[2019-05-22 20:00] VITALS: BP 118/79
[2019-05-22] MEDS: ASCORBIC ACID 500 MG TABLET GT SCH (21:00)
[2019-05-22] MEDS: TRIAMCINOLONE ACET 0.1% CREAM 15 GM TUBE TP SCH (21:00)
[2019-05-22] MEDS: METOPROLOL TARTRATE 50 MG TABLET GT SCH (21:00)
[2019-05-22] MEDS: ACIDOPHILUS/BULGARICUS CHEW TAB GT SCH (21:00)
[2019-05-22] MEDS: Z GUARD REMEDY PASTE 57 GM TUBE TOP SCH (21:00)
[2019-05-22] MEDS: NUTRISOURCE FIBER 4 GM PACKET GT SCH (21:00)
[2019-05-22] MEDS: HYDROGEN PEROXIDE 3% 118 ML BOTTLE TP SCH (21:03)
[2019-05-23] MEDS: OMEPRAZOLE 20 MG CAPSULE.DR GT SCH (05:25)
[2019-05-23 08:06] VITALS: BP 118/56
[2019-05-23] MEDS: METOPROLOL TARTRATE 50 MG TABLET GT SCH ×2 (08:20→21:13)
[2019-05-23] MEDS: SIMETHICONE 80 MG TAB.CHEW GT SCH ×3 (08:20→16:21)
[2019-05-23] MEDS: BACLOFEN 20 MG TABLET GT SCH ×4 (08:20→21:13)
[2019-05-23] MEDS: TRIAMCINOLONE ACET 0.1% CREAM 15 GM TUBE TP SCH ×2 (08:20→21:14)
[2019-05-23] MEDS: Z GUARD REMEDY PASTE 57 GM TUBE TOP SCH ×2 (08:20→21:14)
[2019-05-23] MEDS: ACIDOPHILUS/BULGARICUS CHEW TAB GT SCH ×2 (08:20→21:13)
[2019-05-23] MEDS: SERTRALINE HCL 50 MG TABLET GT SCH (08:20)
[2019-05-23] MEDS: NUTRISOURCE FIBER 4 GM PACKET GT SCH ×2 (08:20→21:13)
[2019-05-23] MEDS: HYDROGEN PEROXIDE 3% 118 ML BOTTLE TP SCH ×2 (09:53→20:17)
[2019-05-23 20:00] VITALS: BP 112/69
[2019-05-23] MEDS: ASCORBIC ACID 500 MG TABLET GT SCH (21:14)
[2019-05-24] MEDS: GLUCERNA 1.2 1000ML LIQUID GT PRN (03:30)
[2019-05-24] MEDS: OMEPRAZOLE 20 MG CAPSULE.DR GT SCH (05:21)
[2019-05-24] MEDS: MULTIVIT, IRON, MIN NO. 8, FA TABLET GT SCH (05:30)
[2019-05-24] MEDS: HYDROGEN PEROXIDE 3% 118 ML BOTTLE TP SCH ×2 (07:15→21:11)
[2019-05-24 08:05] VITALS: BP 120/67
[2019-05-24] MEDS: ACIDOPHILUS/BULGARICUS CHEW TAB GT SCH ×2 (08:28→21:30)
[2019-05-24] MEDS: SERTRALINE HCL 50 MG TABLET GT SCH (08:28)
[2019-05-24] MEDS: METOPROLOL TARTRATE 50 MG TABLET GT SCH ×2 (08:28→21:32)
[2019-05-24] MEDS: BACLOFEN 20 MG TABLET GT SCH ×4 (08:28→21:32)
[2019-05-24] MEDS: NUTRISOURCE FIBER 4 GM PACKET GT SCH ×2 (08:28→21:32)
[2019-05-24] MEDS: SIMETHICONE 80 MG TAB.CHEW GT SCH ×3 (08:28→17:28)
[2019-05-24] MEDS: Z GUARD REMEDY PASTE 57 GM TUBE TOP SCH ×2 (08:29→21:32)
[2019-05-24] MEDS: TRIAMCINOLONE ACET 0.1% CREAM 15 GM TUBE TP SCH ×2 (08:29→21:32)
[2019-05-24 21:09] VITALS: BP 125/77
[2019-05-24] MEDS: ASCORBIC ACID 500 MG TABLET GT SCH (21:32)
[2019-05-24 22:58] VITALS: BP 125/77
[2019-05-25] MEDS: GLUCERNA 1.2 1000ML LIQUID GT PRN (01:45)
[2019-05-25] MEDS: OMEPRAZOLE 20 MG CAPSULE.DR GT SCH (05:52)
[2019-05-25 08:06] VITALS: BP 119/70
[2019-05-25] MEDS: HYDROGEN PEROXIDE 3% 118 ML BOTTLE TP SCH ×2 (09:00→20:05)
[2019-05-25] MEDS: BACLOFEN 20 MG TABLET GT SCH ×4 (09:01→20:40)
[2019-05-25] MEDS: ACIDOPHILUS/BULGARICUS CHEW TAB GT SCH ×2 (09:01→20:40)
[2019-05-25] MEDS: NUTRISOURCE FIBER 4 GM PACKET GT SCH ×2 (09:02→20:41)
[2019-05-25] MEDS: SIMETHICONE 80 MG TAB.CHEW GT SCH ×3 (09:02→16:58)
[2019-05-25] MEDS: SERTRALINE HCL 50 MG TABLET GT SCH (09:02)
[2019-05-25] MEDS: METOPROLOL TARTRATE 50 MG TABLET GT SCH ×2 (09:02→20:41)
[2019-05-25] MEDS: TRIAMCINOLONE ACET 0.1% CREAM 15 GM TUBE TP SCH ×2 (09:03→20:42)
[2019-05-25] MEDS: Z GUARD REMEDY PASTE 57 GM TUBE TOP SCH ×2 (09:03→20:42)
[2019-05-25 20:20] VITALS: BP 122/75
[2019-05-25] MEDS: ASCORBIC ACID 500 MG TABLET GT SCH (20:41)
[2019-05-26] MEDS: GLUCERNA 1.2 1000ML LIQUID GT PRN (01:01)
[2019-05-26] MEDS: MULTIVIT, IRON, MIN NO. 8, FA TABLET GT SCH (05:30)
[2019-05-26] MEDS: OMEPRAZOLE 20 MG CAPSULE.DR GT SCH (05:30)
[2019-05-26 08:00] VITALS: BP 130/84
[2019-05-26] MEDS: Z GUARD REMEDY PASTE 57 GM TUBE TOP SCH ×2 (08:02→20:23)
[2019-05-26] MEDS: BACLOFEN 20 MG TABLET GT SCH ×4 (08:02→20:22)
[2019-05-26] MEDS: SERTRALINE HCL 50 MG TABLET GT SCH (08:02)
[2019-05-26] MEDS: TRIAMCINOLONE ACET 0.1% CREAM 15 GM TUBE TP SCH ×2 (08:02→20:23)
[2019-05-26] MEDS: SIMETHICONE 80 MG TAB.CHEW GT SCH ×3 (08:02→16:32)
[2019-05-26] MEDS: METOPROLOL TARTRATE 50 MG TABLET GT SCH ×2 (08:02→20:22)
[2019-05-26] MEDS: KETOCONAZOLE 2% SHAMPOO 120 ML BOTTLE TP SCH (08:02)
[2019-05-26] MEDS: ACIDOPHILUS/BULGARICUS CHEW TAB GT SCH ×2 (08:02→20:22)
[2019-05-26] MEDS: NUTRISOURCE FIBER 4 GM PACKET GT SCH ×2 (08:02→20:23)
[2019-05-26] MEDS: HYDROGEN PEROXIDE 3% 118 ML BOTTLE TP SCH ×2 (09:00→21:20)
[2019-05-26] MEDS: ASCORBIC ACID 500 MG TABLET GT SCH (20:23)
[2019-05-26 20:27] VITALS: BP 124/77
[2019-05-27] MEDS: GLUCERNA 1.2 1000ML LIQUID GT PRN (03:40)
[2019-05-27] MEDS: OMEPRAZOLE 20 MG CAPSULE.DR GT SCH (06:23)
[2019-05-27 08:13] VITALS: BP 127/81
[2019-05-27] MEDS: ACIDOPHILUS/BULGARICUS CHEW TAB GT SCH ×2 (08:45→21:01)
[2019-05-27] MEDS: BACLOFEN 20 MG TABLET GT SCH ×4 (08:45→21:01)
[2019-05-27] MEDS: NUTRISOURCE FIBER 4 GM PACKET GT SCH ×2 (08:45→21:02)
[2019-05-27] MEDS: SIMETHICONE 80 MG TAB.CHEW GT SCH ×3 (08:45→17:29)
[2019-05-27] MEDS: METOPROLOL TARTRATE 50 MG TABLET GT SCH ×2 (08:45→21:02)
[2019-05-27] MEDS: Z GUARD REMEDY PASTE 57 GM TUBE TOP SCH ×2 (08:46→21:02)
[2019-05-27] MEDS: SERTRALINE HCL 50 MG TABLET GT SCH (08:46)
[2019-05-27] MEDS: TRIAMCINOLONE ACET 0.1% CREAM 15 GM TUBE TP SCH ×2 (08:46→21:03)
[2019-05-27] MEDS: HYDROGEN PEROXIDE 3% 118 ML BOTTLE TP SCH ×2 (09:20→20:25)
[2019-05-27 20:00] VITALS: BP 113/74
[2019-05-27] MEDS: ASCORBIC ACID 500 MG TABLET GT SCH (21:02)
[2019-05-28] MEDS: GLUCERNA 1.2 1000ML LIQUID GT PRN (02:38)
[2019-05-28] MEDS: OMEPRAZOLE 20 MG CAPSULE.DR GT SCH (05:02)
[2019-05-28] MEDS: MULTIVIT, IRON, MIN NO. 8, FA TABLET GT SCH (05:02)
[2019-05-28 08:00] VITALS: BP 135/90
[2019-05-28] MEDS: BACLOFEN 20 MG TABLET GT SCH ×4 (08:38→21:06)
[2019-05-28] MEDS: ACIDOPHILUS/BULGARICUS CHEW TAB GT SCH ×2 (08:38→21:06)
[2019-05-28] MEDS: SERTRALINE HCL 50 MG TABLET GT SCH (08:39)
[2019-05-28] MEDS: NUTRISOURCE FIBER 4 GM PACKET GT SCH ×2 (08:39→21:06)
[2019-05-28] MEDS: SIMETHICONE 80 MG TAB.CHEW GT SCH ×3 (08:39→17:36)
[2019-05-28] MEDS: TRIAMCINOLONE ACET 0.1% CREAM 15 GM TUBE TP SCH ×2 (08:40→21:07)
[2019-05-28] MEDS: Z GUARD REMEDY PASTE 57 GM TUBE TOP SCH ×2 (08:40→21:07)
[2019-05-28] MEDS: METOPROLOL TARTRATE 50 MG TABLET GT SCH ×2 (08:41→21:06)
[2019-05-28] MEDS: HYDROGEN PEROXIDE 3% 118 ML BOTTLE TP SCH ×2 (09:00→18:50)
--- NOTE | 2019-05-28 09:00 | NUR ---
Seen and examined by Dalia Rodriguez ,no new orders noted.
[2019-05-28] MEDS: ASCORBIC ACID 500 MG TABLET GT SCH (21:06)
[2019-05-28 22:56] VITALS: BP 119/75
[2019-05-29] MEDS: GLUCERNA 1.2 1000ML LIQUID GT PRN (00:25)
[2019-05-29] MEDS: OMEPRAZOLE 20 MG CAPSULE.DR GT SCH (05:04)
[2019-05-29 08:00] VITALS: BP 119/77
[2019-05-29] MEDS: HYDROGEN PEROXIDE 3% 118 ML BOTTLE TP SCH ×2 (08:04→20:22)
[2019-05-29] MEDS: ACIDOPHILUS/BULGARICUS CHEW TAB GT SCH ×2 (08:09→21:26)
[2019-05-29] MEDS: BACLOFEN 20 MG TABLET GT SCH ×4 (08:10→21:26)
[2019-05-29] MEDS: SERTRALINE HCL 50 MG TABLET GT SCH (08:11)
[2019-05-29] MEDS: KETOCONAZOLE 2% SHAMPOO 120 ML BOTTLE TP SCH (08:11)
[2019-05-29] MEDS: METOPROLOL TARTRATE 50 MG TABLET GT SCH ×2 (08:11→21:27)
[2019-05-29] MEDS: SIMETHICONE 80 MG TAB.CHEW GT SCH ×3 (08:11→17:34)
[2019-05-29] MEDS: Z GUARD REMEDY PASTE 57 GM TUBE TOP SCH ×2 (08:11→21:28)
[2019-05-29] MEDS: NUTRISOURCE FIBER 4 GM PACKET GT SCH ×2 (08:11→21:28)
[2019-05-29] MEDS: TRIAMCINOLONE ACET 0.1% CREAM 15 GM TUBE TP SCH ×2 (08:11→21:28)
--- NOTE | 2019-05-29 12:15 | NUR ---
KATHRINE met with patient's caregiver and provided her with the packet of the annual admission forms. KATHRINE asked the caregiver to give the packet to patient's brother Frank for review and signatures. KATHRINE included instructions in the packet that Frank can follow in order to review and sign the forms. Caregiver expressed understanding and agreement. Caregiver stated that she will bring the forms back by next week, and SW agreed.
--- NOTE | 2019-05-29 17:27 | NUR ---
SEEN AND EXAMINED BY DR. RIOS AND WITH NEW ORDERS CARRIED OUT.
[2019-05-29] MEDS: ASCORBIC ACID 500 MG TABLET GT SCH (21:28)
[2019-05-29 22:21] VITALS: BP 111/76
[2019-05-30] MEDS: GLUCERNA 1.2 1000ML LIQUID GT PRN (01:17)
[2019-05-30] MEDS: OMEPRAZOLE 20 MG CAPSULE.DR GT SCH (05:28)
[2019-05-30] MEDS: MULTIVIT, IRON, MIN NO. 8, FA TABLET GT SCH (06:08)
[2019-05-30] MEDS: HYDROGEN PEROXIDE 3% 118 ML BOTTLE TP SCH ×2 (09:15→21:23)
[2019-05-30] MEDS: ACIDOPHILUS/BULGARICUS CHEW TAB GT SCH ×2 (09:39→21:32)
[2019-05-30] MEDS: BACLOFEN 20 MG TABLET GT SCH ×4 (09:39→21:32)
[2019-05-30] MEDS: SIMETHICONE 80 MG TAB.CHEW GT SCH ×3 (09:40→17:37)
[2019-05-30] MEDS: NUTRISOURCE FIBER 4 GM PACKET GT SCH ×2 (09:40→21:32)
[2019-05-30] MEDS: SERTRALINE HCL 50 MG TABLET GT SCH (09:40)
[2019-05-30] MEDS: METOPROLOL TARTRATE 50 MG TABLET GT SCH ×2 (09:40→21:32)
[2019-05-30] MEDS: TRIAMCINOLONE ACET 0.1% CREAM 15 GM TUBE TP SCH ×2 (09:41→21:33)
[2019-05-30] MEDS: CIPROFLOXACIN 0.3% OPHT DROP 2.5 ML BOTTLE RIGHTEYE SCH ×3 (09:41→17:38)
[2019-05-30] MEDS: Z GUARD REMEDY PASTE 57 GM TUBE TOP SCH ×2 (09:41→21:33)
[2019-05-30 11:10] VITALS: BP 123/71
[2019-05-30] MEDS: ASCORBIC ACID 500 MG TABLET GT SCH (21:33)
[2019-05-30 22:07] VITALS: BP 108/76
[2019-05-31] MEDS: GLUCERNA 1.2 1000ML LIQUID GT PRN ×2 (00:18→17:30)
[2019-05-31] MEDS: OMEPRAZOLE 20 MG CAPSULE.DR GT SCH (05:48)
[2019-05-31] MEDS: HYDROGEN PEROXIDE 3% 118 ML BOTTLE TP SCH ×2 (08:05→21:00)
[2019-05-31] MEDS: ACIDOPHILUS/BULGARICUS CHEW TAB GT SCH ×2 (08:47→21:54)
[2019-05-31] MEDS: BACLOFEN 20 MG TABLET GT SCH ×4 (08:47→21:55)
[2019-05-31] MEDS: NUTRISOURCE FIBER 4 GM PACKET GT SCH ×2 (08:48→21:55)
[2019-05-31] MEDS: SERTRALINE HCL 50 MG TABLET GT SCH (08:48)
[2019-05-31] MEDS: SIMETHICONE 80 MG TAB.CHEW GT SCH ×3 (08:48→17:30)
[2019-05-31] MEDS: METOPROLOL TARTRATE 50 MG TABLET GT SCH ×2 (08:48→21:55)
[2019-05-31] MEDS: CIPROFLOXACIN 0.3% OPHT DROP 2.5 ML BOTTLE RIGHTEYE SCH ×3 (08:49→17:30)
[2019-05-31] MEDS: TRIAMCINOLONE ACET 0.1% CREAM 15 GM TUBE TP SCH ×2 (08:49→21:55)
[2019-05-31] MEDS: Z GUARD REMEDY PASTE 57 GM TUBE TOP SCH ×2 (08:49→21:55)
--- NOTE | 2019-05-31 08:50 | NUR ---
SEEN AND EXAMINED BY DR. OGLESBY AND AWARE OF LOOSE STOOLS WITH NEW ORDERS CARRIED OUT.
--- NOTE | 2019-05-31 09:45 | NUR ---
SEEN BY DR. RENY MORGAN.
[2019-05-31 11:00] VITALS: BP 111/75
[2019-05-31] MEDS: ASCORBIC ACID 500 MG TABLET GT SCH (21:55)
[2019-05-31 22:43] VITALS: BP 130/88
[2019-06-01] MEDS: OMEPRAZOLE 20 MG CAPSULE.DR GT SCH (05:25)
[2019-06-01] MEDS: MULTIVIT, IRON, MIN NO. 8, FA TABLET GT SCH (05:30)
[2019-06-01 08:00] VITALS: BP 123/82
[2019-06-01] MEDS: BACLOFEN 20 MG TABLET GT SCH ×4 (08:58→21:10)
[2019-06-01] MEDS: METOPROLOL TARTRATE 50 MG TABLET GT SCH ×2 (08:58→21:11)
[2019-06-01] MEDS: SIMETHICONE 80 MG TAB.CHEW GT SCH ×3 (08:58→17:57)
[2019-06-01] MEDS: ACIDOPHILUS/BULGARICUS CHEW TAB GT SCH ×2 (08:58→21:10)
[2019-06-01] MEDS: SERTRALINE HCL 50 MG TABLET GT SCH (08:59)
[2019-06-01] MEDS: NUTRISOURCE FIBER 4 GM PACKET GT SCH ×2 (08:59→21:12)
[2019-06-01] MEDS: TRIAMCINOLONE ACET 0.1% CREAM 15 GM TUBE TP SCH ×2 (09:00→21:12)
[2019-06-01] MEDS: Z GUARD REMEDY PASTE 57 GM TUBE TOP SCH ×2 (09:00→21:12)
[2019-06-01] MEDS: CIPROFLOXACIN 0.3% OPHT DROP 2.5 ML BOTTLE RIGHTEYE SCH ×3 (09:00→17:57)
[2019-06-01] MEDS: HYDROGEN PEROXIDE 3% 118 ML BOTTLE TP SCH ×2 (09:00→20:29)
[2019-06-01] MEDS: GLUCERNA 1.2 1000ML LIQUID GT PRN (17:58)
[2019-06-01] MEDS: ASCORBIC ACID 500 MG TABLET GT SCH (21:12)
[2019-06-01 22:48] VITALS: BP 116/74
[2019-06-02] MEDS: OMEPRAZOLE 20 MG CAPSULE.DR GT SCH (06:11)
[2019-06-02 08:00] VITALS: BP 126/76
[2019-06-02] MEDS: HYDROGEN PEROXIDE 3% 118 ML BOTTLE TP SCH ×2 (08:19→21:12)
[2019-06-02] MEDS: SERTRALINE HCL 50 MG TABLET GT SCH (09:13)
[2019-06-02] MEDS: ACIDOPHILUS/BULGARICUS CHEW TAB GT SCH ×2 (09:13→20:19)
[2019-06-02] MEDS: METOPROLOL TARTRATE 50 MG TABLET GT SCH ×2 (09:13→21:00)
[2019-06-02] MEDS: NUTRISOURCE FIBER 4 GM PACKET GT SCH (09:13)
[2019-06-02] MEDS: SIMETHICONE 80 MG TAB.CHEW GT SCH ×3 (09:13→17:55)
[2019-06-02] MEDS: BACLOFEN 20 MG TABLET GT SCH ×4 (09:13→20:19)
[2019-06-02] MEDS: TRIAMCINOLONE ACET 0.1% CREAM 15 GM TUBE TP SCH ×2 (09:14→20:20)
[2019-06-02] MEDS: Z GUARD REMEDY PASTE 57 GM TUBE TOP SCH ×2 (09:14→20:20)
[2019-06-02] MEDS: KETOCONAZOLE 2% SHAMPOO 120 ML BOTTLE TP SCH (09:14)
[2019-06-02] MEDS: CIPROFLOXACIN 0.3% OPHT DROP 2.5 ML BOTTLE RIGHTEYE SCH ×3 (09:14→17:55)
[2019-06-02] MEDS: TRIAMCINOLONE ACET 0.1% OINT 15 GM TUBE TP SCH (13:22)
--- NOTE | 2019-06-02 14:28 | NUR ---
SEEN BY GLENN Bolaños AND WITH NEW ORDERS CARRIED OUT.
[2019-06-02] MEDS: GLUCERNA 1.2 1000ML LIQUID GT PRN (18:07)
[2019-06-02] MEDS: ASCORBIC ACID 500 MG TABLET GT SCH (20:19)
[2019-06-02 20:44] VITALS: BP 144/95
[2019-06-03] MEDS: OMEPRAZOLE 20 MG CAPSULE.DR GT SCH (05:13)
[2019-06-03] MEDS: MULTIVIT, IRON, MIN NO. 8, FA TABLET GT SCH (05:38)
[2019-06-03 08:00] VITALS: BP 116/74
[2019-06-03] MEDS: BACLOFEN 20 MG TABLET GT SCH ×4 (08:41→21:23)
[2019-06-03] MEDS: SIMETHICONE 80 MG TAB.CHEW GT SCH ×3 (08:41→17:29)
[2019-06-03] MEDS: ACIDOPHILUS/BULGARICUS CHEW TAB GT SCH ×2 (08:41→21:23)
[2019-06-03] MEDS: SERTRALINE HCL 50 MG TABLET GT SCH (08:41)
[2019-06-03] MEDS: METOPROLOL TARTRATE 50 MG TABLET GT SCH ×2 (08:41→21:24)
[2019-06-03] MEDS: TRIAMCINOLONE ACET 0.1% CREAM 15 GM TUBE TP SCH ×2 (08:41→21:25)
[2019-06-03] MEDS: CIPROFLOXACIN 0.3% OPHT DROP 2.5 ML BOTTLE RIGHTEYE SCH ×3 (08:41→17:29)
[2019-06-03] MEDS: Z GUARD REMEDY PASTE 57 GM TUBE TOP SCH ×2 (08:41→21:24)
[2019-06-03] MEDS: TRIAMCINOLONE ACET 0.1% OINT 15 GM TUBE TP SCH (08:42)
[2019-06-03] MEDS: HYDROGEN PEROXIDE 3% 118 ML BOTTLE TP SCH ×2 (09:00→21:20)
[2019-06-03] MEDS: GLUCERNA 1.2 1000ML LIQUID GT PRN (12:26)
--- NOTE | 2019-06-03 14:40 | NUR ---
Seen and examined by Dalia Rodriguez,no new orders noted.
[2019-06-03 20:10] VITALS: BP 122/68
[2019-06-03] MEDS: ASCORBIC ACID 500 MG TABLET GT SCH (21:24)
[2019-06-04] MEDS: OMEPRAZOLE 20 MG CAPSULE.DR GT SCH (05:35)
[2019-06-04 08:00] VITALS: BP 120/75
[2019-06-04] MEDS: CIPROFLOXACIN 0.3% OPHT DROP 2.5 ML BOTTLE RIGHTEYE SCH ×3 (08:24→17:00)
[2019-06-04] MEDS: ACIDOPHILUS/BULGARICUS CHEW TAB GT SCH ×2 (08:24→21:36)
[2019-06-04] MEDS: SIMETHICONE 80 MG TAB.CHEW GT SCH ×3 (08:24→17:00)
[2019-06-04] MEDS: BACLOFEN 20 MG TABLET GT SCH ×4 (08:24→21:36)
[2019-06-04] MEDS: SERTRALINE HCL 50 MG TABLET GT SCH (08:24)
[2019-06-04] MEDS: Z GUARD REMEDY PASTE 57 GM TUBE TOP SCH ×2 (08:25→21:37)
[2019-06-04] MEDS: TRIAMCINOLONE ACET 0.1% CREAM 15 GM TUBE TP SCH ×2 (08:25→21:37)
[2019-06-04] MEDS: TRIAMCINOLONE ACET 0.1% OINT 15 GM TUBE TP SCH (08:25)
[2019-06-04] MEDS: METOPROLOL TARTRATE 50 MG TABLET GT SCH ×2 (08:34→21:37)
[2019-06-04] MEDS: HYDROGEN PEROXIDE 3% 118 ML BOTTLE TP SCH ×2 (09:00→21:12)
[2019-06-04 20:00] VITALS: BP 120/85
[2019-06-04] MEDS: ASCORBIC ACID 500 MG TABLET GT SCH (21:37)
--- NOTE | 2019-06-05 01:48 | NUR ---
Afebrile, remains on Cilaxon eye drops to right eye, no adverse reactions noted, no discharge or drainage, no redness noted, good eye care done, kept clean and comfortable, will continue monitor.
[2019-06-05] MEDS: OMEPRAZOLE 20 MG CAPSULE.DR GT SCH (05:26)
[2019-06-05] MEDS: MULTIVIT, IRON, MIN NO. 8, FA TABLET GT SCH (06:27)
[2019-06-05] MEDS: HYDROGEN PEROXIDE 3% 118 ML BOTTLE TP SCH ×2 (07:20→21:18)
[2019-06-05] MEDS: ACIDOPHILUS/BULGARICUS CHEW TAB GT SCH ×2 (08:23→20:20)
[2019-06-05] MEDS: BACLOFEN 20 MG TABLET GT SCH ×4 (08:23→20:20)
[2019-06-05] MEDS: Z GUARD REMEDY PASTE 57 GM TUBE TOP SCH ×2 (08:24→20:21)
[2019-06-05] MEDS: METOPROLOL TARTRATE 50 MG TABLET GT SCH ×2 (08:24→20:21)
[2019-06-05] MEDS: SERTRALINE HCL 50 MG TABLET GT SCH (08:24)
[2019-06-05] MEDS: SIMETHICONE 80 MG TAB.CHEW GT SCH ×3 (08:24→17:45)
[2019-06-05] MEDS: CIPROFLOXACIN 0.3% OPHT DROP 2.5 ML BOTTLE RIGHTEYE SCH ×3 (08:24→17:45)
[2019-06-05] MEDS: TRIAMCINOLONE ACET 0.1% CREAM 15 GM TUBE TP SCH ×2 (08:25→20:21)
[2019-06-05] MEDS: TRIAMCINOLONE ACET 0.1% OINT 15 GM TUBE TP SCH (08:26)
[2019-06-05] MEDS: KETOCONAZOLE 2% SHAMPOO 120 ML BOTTLE TP SCH (08:26)
[2019-06-05 08:30] VITALS: BP 128/83
[2019-06-05] MEDS: GLUCERNA 1.2 1000ML LIQUID GT PRN (12:10)
[2019-06-05 20:00] VITALS: BP 139/90
[2019-06-05] MEDS: ASCORBIC ACID 500 MG TABLET GT SCH (20:21)
--- NOTE | 2019-06-05 21:30 | NUR ---
On Cilaxon eye drops to right eyefor right eye chalazion, no adverse reactions noted, no discharge or drainage, no redness noted, good eye care done, kept clean and comfortable, will continue monitor.
[2019-06-06] MEDS: OMEPRAZOLE 20 MG CAPSULE.DR GT SCH (05:52)
[2019-06-06 08:30] VITALS: BP 123/79
[2019-06-06] MEDS: ACIDOPHILUS/BULGARICUS CHEW TAB GT SCH ×2 (09:23→20:47)
[2019-06-06] MEDS: BACLOFEN 20 MG TABLET GT SCH ×4 (09:24→20:47)
[2019-06-06] MEDS: SERTRALINE HCL 50 MG TABLET GT SCH (09:25)
[2019-06-06] MEDS: Z GUARD REMEDY PASTE 57 GM TUBE TOP SCH ×2 (09:25→20:47)
[2019-06-06] MEDS: TRIAMCINOLONE ACET 0.1% CREAM 15 GM TUBE TP SCH ×2 (09:25→20:47)
[2019-06-06] MEDS: SIMETHICONE 80 MG TAB.CHEW GT SCH ×3 (09:25→17:52)
[2019-06-06] MEDS: CIPROFLOXACIN 0.3% OPHT DROP 2.5 ML BOTTLE RIGHTEYE SCH ×3 (09:25→17:52)
[2019-06-06] MEDS: METOPROLOL TARTRATE 50 MG TABLET GT SCH ×2 (09:25→20:47)
[2019-06-06] MEDS: TRIAMCINOLONE ACET 0.1% OINT 15 GM TUBE TP SCH (09:26)
[2019-06-06] MEDS: HYDROGEN PEROXIDE 3% 118 ML BOTTLE TP SCH ×2 (09:40→18:59)
--- NOTE | 2019-06-06 10:47 | NUR ---
Patient's caregiver returned patient's annual admission paperwork, that was reviewed and signed by patient's brother Frank. SW reviewed the forms and noticed that the [facility] Agreement was missing a signature. SW returned the [facility] contract to patient's caregiver, and asked her to take it back to patient's brother Frank for signature. Patient's caregiver agreed. The following forms were completed and signed accurately: Conditions of Admission, Patient Rights Acknowledgement, Documentation of Preferred Intensity of Care, Voluntary Prior Express Consent Form, Race and Ethnicity Patient Self-Identification. SW will wait to receive the signed [facility] Agreement. SW will follow-up if not received next week. For previous assessment/quarterlies, see patient's record [id number].
[2019-06-06] MEDS: ASCORBIC ACID 500 MG TABLET GT SCH (20:47)
[2019-06-06 22:21] VITALS: BP 119/81
[2019-06-07] MEDS: MULTIVIT, IRON, MIN NO. 8, FA TABLET GT SCH (05:43)
[2019-06-07] MEDS: OMEPRAZOLE 20 MG CAPSULE.DR GT SCH (05:43)
[2019-06-07 08:04] VITALS: BP 121/82
[2019-06-07] MEDS: BACLOFEN 20 MG TABLET GT SCH ×4 (08:25→20:45)
[2019-06-07] MEDS: ACIDOPHILUS/BULGARICUS CHEW TAB GT SCH ×2 (08:25→20:45)
[2019-06-07] MEDS: METOPROLOL TARTRATE 50 MG TABLET GT SCH ×2 (08:26→20:45)
[2019-06-07] MEDS: TRIAMCINOLONE ACET 0.1% CREAM 15 GM TUBE TP SCH ×2 (08:27→20:46)
[2019-06-07] MEDS: SIMETHICONE 80 MG TAB.CHEW GT SCH ×3 (08:27→17:39)
[2019-06-07] MEDS: Z GUARD REMEDY PASTE 57 GM TUBE TOP SCH ×2 (08:27→20:45)
[2019-06-07] MEDS: SERTRALINE HCL 50 MG TABLET GT SCH (08:27)
[2019-06-07] MEDS: CIPROFLOXACIN 0.3% OPHT DROP 2.5 ML BOTTLE RIGHTEYE SCH ×3 (08:27→17:39)
[2019-06-07] MEDS: TRIAMCINOLONE ACET 0.1% OINT 15 GM TUBE TP SCH (08:28)
[2019-06-07] MEDS: GLUCERNA 1.2 1000ML LIQUID GT PRN (08:33)
[2019-06-07] MEDS: HYDROGEN PEROXIDE 3% 118 ML BOTTLE TP SCH ×2 (09:10→20:50)
[2019-06-07] MEDS: ASCORBIC ACID 500 MG TABLET GT SCH (20:45)
[2019-06-07 22:14] VITALS: BP 113/80
[2019-06-08] MEDS: GLUCERNA 1.2 1000ML LIQUID GT PRN (01:44)
[2019-06-08] MEDS: OMEPRAZOLE 20 MG CAPSULE.DR GT SCH (05:28)
[2019-06-08] MEDS: HYDROGEN PEROXIDE 3% 118 ML BOTTLE TP SCH ×2 (08:03→21:11)
[2019-06-08 08:04] VITALS: BP 122/79
[2019-06-08] MEDS: BACLOFEN 20 MG TABLET GT SCH ×4 (08:25→20:47)
[2019-06-08] MEDS: ACIDOPHILUS/BULGARICUS CHEW TAB GT SCH ×2 (08:25→20:47)
[2019-06-08] MEDS: SERTRALINE HCL 50 MG TABLET GT SCH (08:26)
[2019-06-08] MEDS: TRIAMCINOLONE ACET 0.1% OINT 15 GM TUBE TP SCH (08:26)
[2019-06-08] MEDS: SIMETHICONE 80 MG TAB.CHEW GT SCH ×3 (08:26→16:34)
[2019-06-08] MEDS: METOPROLOL TARTRATE 50 MG TABLET GT SCH ×2 (08:26→20:47)
[2019-06-08] MEDS: TRIAMCINOLONE ACET 0.1% CREAM 15 GM TUBE TP SCH ×2 (08:26→20:47)
[2019-06-08] MEDS: CIPROFLOXACIN 0.3% OPHT DROP 2.5 ML BOTTLE RIGHTEYE SCH ×3 (08:26→16:34)
[2019-06-08] MEDS: Z GUARD REMEDY PASTE 57 GM TUBE TOP SCH ×2 (08:26→20:47)
[2019-06-08] MEDS: ASCORBIC ACID 500 MG TABLET GT SCH (20:47)
[2019-06-08 22:56] VITALS: BP 140/88
[2019-06-09] MEDS: GLUCERNA 1.2 1000ML LIQUID GT PRN (01:01)
[2019-06-09] MEDS: OMEPRAZOLE 20 MG CAPSULE.DR GT SCH (05:41)
[2019-06-09] MEDS: MULTIVIT, IRON, MIN NO. 8, FA TABLET GT SCH (05:41)
[2019-06-09 08:05] VITALS: BP 125/76
[2019-06-09] MEDS: Z GUARD REMEDY PASTE 57 GM TUBE TOP SCH ×2 (08:21→20:38)
[2019-06-09] MEDS: SERTRALINE HCL 50 MG TABLET GT SCH (08:21)
[2019-06-09] MEDS: BACLOFEN 20 MG TABLET GT SCH ×4 (08:21→20:38)
[2019-06-09] MEDS: CIPROFLOXACIN 0.3% OPHT DROP 2.5 ML BOTTLE RIGHTEYE SCH ×3 (08:21→16:46)
[2019-06-09] MEDS: METOPROLOL TARTRATE 50 MG TABLET GT SCH ×2 (08:21→20:40)
[2019-06-09] MEDS: TRIAMCINOLONE ACET 0.1% OINT 15 GM TUBE TP SCH (08:21)
[2019-06-09] MEDS: TRIAMCINOLONE ACET 0.1% CREAM 15 GM TUBE TP SCH ×2 (08:21→20:38)
[2019-06-09] MEDS: SIMETHICONE 80 MG TAB.CHEW GT SCH ×3 (08:21→16:46)
[2019-06-09] MEDS: ACIDOPHILUS/BULGARICUS CHEW TAB GT SCH ×2 (08:21→20:38)
[2019-06-09] MEDS: KETOCONAZOLE 2% SHAMPOO 120 ML BOTTLE TP SCH (08:22)
[2019-06-09] MEDS: HYDROGEN PEROXIDE 3% 118 ML BOTTLE TP SCH ×2 (09:25→19:00)
--- NOTE | 2019-06-09 11:16 | NUR ---
SEEN BY JANY ALMAZAN WITH NO NEW ORDER.
[2019-06-09 20:20] VITALS: BP 108/71
[2019-06-09] MEDS: ASCORBIC ACID 500 MG TABLET GT SCH (20:38)
[2019-06-10] MEDS: GLUCERNA 1.2 1000ML LIQUID GT PRN (03:21)
[2019-06-10] MEDS: OMEPRAZOLE 20 MG CAPSULE.DR GT SCH (05:25)
[2019-06-10 08:27] VITALS: BP 117/71
[2019-06-10] MEDS: ACIDOPHILUS/BULGARICUS CHEW TAB GT SCH ×2 (09:06→21:26)
[2019-06-10] MEDS: BACLOFEN 20 MG TABLET GT SCH ×4 (09:08→21:26)
[2019-06-10] MEDS: METOPROLOL TARTRATE 50 MG TABLET GT SCH ×2 (09:08→21:27)
[2019-06-10] MEDS: SERTRALINE HCL 50 MG TABLET GT SCH (09:09)
[2019-06-10] MEDS: SIMETHICONE 80 MG TAB.CHEW GT SCH ×3 (09:09→16:48)
[2019-06-10] MEDS: TRIAMCINOLONE ACET 0.1% OINT 15 GM TUBE TP SCH (09:10)
[2019-06-10] MEDS: Z GUARD REMEDY PASTE 57 GM TUBE TOP SCH ×2 (09:10→21:27)
[2019-06-10] MEDS: TRIAMCINOLONE ACET 0.1% CREAM 15 GM TUBE TP SCH ×2 (09:10→21:27)
[2019-06-10] MEDS: CIPROFLOXACIN 0.3% OPHT DROP 2.5 ML BOTTLE RIGHTEYE SCH ×3 (09:10→16:48)
[2019-06-10] MEDS: HYDROGEN PEROXIDE 3% 118 ML BOTTLE TP SCH ×2 (09:13→21:02)
--- NOTE | 2019-06-10 14:48 | NUR ---
INTERDISCIPLINARY PLAN OF CARE CONFERENCE was held today. Patient's family was not able to attend the meeting. Dr. Heaton and the Interdisciplinary Team reviewed the current plan of care in detail. RN reported on patient's current medical condition and skin treatment. No major changes in condition were reported. See RN IDT conference notes. See also all other disciplines IDT notes and physician's progress notes for additional details.
--- NOTE | 2019-06-10 15:08 | NUR ---
SW received the [facility] agreement today, signed in completion by patient's brother Frank.
--- NOTE | 2019-06-10 17:47 | NUR ---
Pharmacy Update from Today's 06/10/19 IDT meeting VS: Temp 97.3 BP 117/71 HR 93 LABS: (03/25/19, no new labs) Wbc 5.8 H/H 11.6/37 Plt 247 Na 138 K 3.9 Cl 103 CO2 23 BUN/SCr 16/0.8 BS 123 Ca 8.9 MEDICATION USE REVIEWED: > Pt is not on any anti-epileptic medications > Pt is on Zoloft 50mg daily for depression m/b episodes of crying; No GDR planned for pt d/t contraindication of persistent cry episodes and repeated failed GDRs in the past (see MD note). Patient had x0 episodes in Dec, pt's condition remains about baseline with occasional increases in episodes deemed likely from menstruation per MDs/team. Will continue to follow trend > Pt was on depo-provera [id number] for heavy menstruation, last given 03/30/19. Now d/c'd per gynocology as pt reaching menopause age and may no longer need. > PRN MED USAGE: (Apr) Tylenol 650mg for mild pain used x3 Tylenol for temp x0 Tylenol 1000mg mod pain x1 Bisacodyl x0 Rodriguez Flush enema x0 NEW ORDERS NOTED: > Cipro eyedrops 0.3% to right eye TID 05/30-06/20 for chalazion > Rodriguez flush enema PRN added 06/02 > Nutrisource fiber d/c'd 06/02 Patient was reviewed and discussed in detail with family in attendance and no medication issues noted. Reported medication additions - pt tolerating with no issues. No further recommendations at this time, will continue to follow.
[2019-06-10 20:00] VITALS: BP 117/80
[2019-06-10] MEDS: ASCORBIC ACID 500 MG TABLET GT SCH (21:27)
[2019-06-11] MEDS: GLUCERNA 1.2 1000ML LIQUID GT PRN (00:34)
[2019-06-11] MEDS: MULTIVIT, IRON, MIN NO. 8, FA TABLET GT SCH (06:06)
[2019-06-11] MEDS: OMEPRAZOLE 20 MG CAPSULE.DR GT SCH (06:06)
[2019-06-11 08:00] VITALS: BP 138/88
[2019-06-11] MEDS: HYDROGEN PEROXIDE 3% 118 ML BOTTLE TP SCH ×2 (08:41→18:42)
[2019-06-11] MEDS: ACIDOPHILUS/BULGARICUS CHEW TAB GT SCH ×2 (08:54→21:07)
[2019-06-11] MEDS: BACLOFEN 20 MG TABLET GT SCH ×4 (08:55→21:07)
[2019-06-11] MEDS: CIPROFLOXACIN 0.3% OPHT DROP 2.5 ML BOTTLE RIGHTEYE SCH ×3 (08:56→17:05)
[2019-06-11] MEDS: Z GUARD REMEDY PASTE 57 GM TUBE TOP SCH ×2 (08:56→21:09)
[2019-06-11] MEDS: SIMETHICONE 80 MG TAB.CHEW GT SCH ×3 (08:56→17:04)
[2019-06-11] MEDS: METOPROLOL TARTRATE 50 MG TABLET GT SCH ×2 (08:56→21:08)
[2019-06-11] MEDS: SERTRALINE HCL 50 MG TABLET GT SCH (08:56)
[2019-06-11] MEDS: TRIAMCINOLONE ACET 0.1% OINT 15 GM TUBE TP SCH (09:00)
[2019-06-11] MEDS: ACETAMINOPHEN 650 MG/20 ML UDC- SA PATIENTS-PAIN ONLY GT PRN (18:12)
[2019-06-11 20:09] VITALS: BP 117/72
[2019-06-11] MEDS: ASCORBIC ACID 500 MG TABLET GT SCH (21:09)
[2019-06-12] MEDS: GLUCERNA 1.2 1000ML LIQUID GT PRN (00:20)
[2019-06-12] MEDS: OMEPRAZOLE 20 MG CAPSULE.DR GT SCH (06:03)
[2019-06-12] MEDS: HYDROGEN PEROXIDE 3% 118 ML BOTTLE TP SCH ×2 (07:37→18:45)
[2019-06-12 08:00] VITALS: BP 128/85
[2019-06-12] MEDS: BACLOFEN 20 MG TABLET GT SCH ×4 (08:46→21:09)
[2019-06-12] MEDS: ACIDOPHILUS/BULGARICUS CHEW TAB GT SCH ×2 (08:46→21:09)
[2019-06-12] MEDS: SIMETHICONE 80 MG TAB.CHEW GT SCH ×3 (08:47→17:48)
[2019-06-12] MEDS: SERTRALINE HCL 50 MG TABLET GT SCH (08:47)
[2019-06-12] MEDS: Z GUARD REMEDY PASTE 57 GM TUBE TOP SCH ×2 (08:47→21:11)
[2019-06-12] MEDS: TRIAMCINOLONE ACET 0.1% OINT 15 GM TUBE TP SCH (08:47)
[2019-06-12] MEDS: METOPROLOL TARTRATE 50 MG TABLET GT SCH ×2 (08:47→21:10)
[2019-06-12] MEDS: CIPROFLOXACIN 0.3% OPHT DROP 2.5 ML BOTTLE RIGHTEYE SCH ×3 (08:47→17:48)
[2019-06-12] MEDS: KETOCONAZOLE 2% SHAMPOO 120 ML BOTTLE TP SCH (08:47)
[2019-06-12 20:49] VITALS: BP 107/72
[2019-06-12] MEDS: ASCORBIC ACID 500 MG TABLET GT SCH (21:11)
[2019-06-13] MEDS: GLUCERNA 1.2 1000ML LIQUID GT PRN (01:47)
[2019-06-13] MEDS: OMEPRAZOLE 20 MG CAPSULE.DR GT SCH (06:00)
[2019-06-13] MEDS: MULTIVIT, IRON, MIN NO. 8, FA TABLET GT SCH (06:02)
[2019-06-13 08:00] VITALS: BP 119/75
[2019-06-13] MEDS: ACIDOPHILUS/BULGARICUS CHEW TAB GT SCH ×2 (08:25→20:45)
[2019-06-13] MEDS: METOPROLOL TARTRATE 50 MG TABLET GT SCH ×2 (08:25→20:46)
[2019-06-13] MEDS: BACLOFEN 20 MG TABLET GT SCH ×4 (08:25→20:45)
[2019-06-13] MEDS: SERTRALINE HCL 50 MG TABLET GT SCH (08:25)
[2019-06-13] MEDS: SIMETHICONE 80 MG TAB.CHEW GT SCH ×3 (08:25→17:15)
[2019-06-13] MEDS: TRIAMCINOLONE ACET 0.1% OINT 15 GM TUBE TP SCH (08:26)
[2019-06-13] MEDS: Z GUARD REMEDY PASTE 57 GM TUBE TOP SCH ×2 (08:26→20:46)
[2019-06-13] MEDS: CIPROFLOXACIN 0.3% OPHT DROP 2.5 ML BOTTLE RIGHTEYE SCH ×3 (08:26→17:15)
[2019-06-13] MEDS: HYDROGEN PEROXIDE 3% 118 ML BOTTLE TP SCH ×2 (09:00→21:08)
[2019-06-13 20:12] VITALS: BP 118/70
[2019-06-13] MEDS: ASCORBIC ACID 500 MG TABLET GT SCH (20:46)
[2019-06-14] MEDS: GLUCERNA 1.2 1000ML LIQUID GT PRN (01:44)
[2019-06-14] MEDS: OMEPRAZOLE 20 MG CAPSULE.DR GT SCH (05:54)
[2019-06-14 08:00] VITALS: BP 117/71
[2019-06-14] MEDS: BACLOFEN 20 MG TABLET GT SCH ×4 (08:31→21:39)
[2019-06-14] MEDS: ACIDOPHILUS/BULGARICUS CHEW TAB GT SCH ×2 (08:31→21:39)
[2019-06-14] MEDS: SERTRALINE HCL 50 MG TABLET GT SCH (08:34)
[2019-06-14] MEDS: SIMETHICONE 80 MG TAB.CHEW GT SCH ×3 (08:34→17:26)
[2019-06-14] MEDS: METOPROLOL TARTRATE 50 MG TABLET GT SCH ×2 (08:34→21:41)
[2019-06-14] MEDS: Z GUARD REMEDY PASTE 57 GM TUBE TOP SCH ×2 (08:35→21:42)
[2019-06-14] MEDS: TRIAMCINOLONE ACET 0.1% OINT 15 GM TUBE TP SCH (08:35)
[2019-06-14] MEDS: CIPROFLOXACIN 0.3% OPHT DROP 2.5 ML BOTTLE RIGHTEYE SCH ×3 (08:35→17:26)
[2019-06-14] MEDS: HYDROGEN PEROXIDE 3% 118 ML BOTTLE TP SCH ×2 (09:00→21:46)
[2019-06-14 20:08] VITALS: BP 125/79
[2019-06-14] MEDS: ACETAMINOPHEN 650 MG/20 ML UDC- SA PATIENTS-PAIN ONLY GT PRN (20:29)
[2019-06-14] MEDS: ASCORBIC ACID 500 MG TABLET GT SCH (21:42)
[2019-06-15] MEDS: GLUCERNA 1.2 1000ML LIQUID GT PRN (00:41)
[2019-06-15] MEDS: MULTIVIT, IRON, MIN NO. 8, FA TABLET GT SCH (06:06)
[2019-06-15] MEDS: OMEPRAZOLE 20 MG CAPSULE.DR GT SCH (06:06)
[2019-06-15 08:00] VITALS: BP 101/71
[2019-06-15] MEDS: ACIDOPHILUS/BULGARICUS CHEW TAB GT SCH ×2 (08:23→20:24)
[2019-06-15] MEDS: BACLOFEN 20 MG TABLET GT SCH ×4 (08:23→20:24)
[2019-06-15] MEDS: SIMETHICONE 80 MG TAB.CHEW GT SCH ×3 (08:24→17:53)
[2019-06-15] MEDS: SERTRALINE HCL 50 MG TABLET GT SCH (08:24)
[2019-06-15] MEDS: METOPROLOL TARTRATE 50 MG TABLET GT SCH ×2 (08:24→20:24)
[2019-06-15] MEDS: Z GUARD REMEDY PASTE 57 GM TUBE TOP SCH ×2 (08:24→20:24)
[2019-06-15] MEDS: TRIAMCINOLONE ACET 0.1% OINT 15 GM TUBE TP SCH (08:24)
[2019-06-15] MEDS: CIPROFLOXACIN 0.3% OPHT DROP 2.5 ML BOTTLE RIGHTEYE SCH ×3 (08:24→17:53)
[2019-06-15] MEDS: HYDROGEN PEROXIDE 3% 118 ML BOTTLE TP SCH ×2 (09:00→20:24)
[2019-06-15 20:22] VITALS: BP 112/73
[2019-06-15] MEDS: ASCORBIC ACID 500 MG TABLET GT SCH (20:24)
[2019-06-16] MEDS: GLUCERNA 1.2 1000ML LIQUID GT PRN ×2 (00:33→23:00)
[2019-06-16] MEDS: OMEPRAZOLE 20 MG CAPSULE.DR GT SCH (05:17)
[2019-06-16 08:00] VITALS: BP 124/73
[2019-06-16] MEDS: HYDROGEN PEROXIDE 3% 118 ML BOTTLE TP SCH ×2 (08:10→21:15)
[2019-06-16] MEDS: BACLOFEN 20 MG TABLET GT SCH ×4 (08:40→21:38)
[2019-06-16] MEDS: ACIDOPHILUS/BULGARICUS CHEW TAB GT SCH ×2 (08:40→21:38)
[2019-06-16] MEDS: SERTRALINE HCL 50 MG TABLET GT SCH (08:41)
[2019-06-16] MEDS: METOPROLOL TARTRATE 50 MG TABLET GT SCH ×2 (08:41→21:38)
[2019-06-16] MEDS: SIMETHICONE 80 MG TAB.CHEW GT SCH ×3 (08:41→17:39)
[2019-06-16] MEDS: KETOCONAZOLE 2% SHAMPOO 120 ML BOTTLE TP SCH (08:43)
[2019-06-16] MEDS: TRIAMCINOLONE ACET 0.1% OINT 15 GM TUBE TP SCH (08:43)
[2019-06-16] MEDS: Z GUARD REMEDY PASTE 57 GM TUBE TOP SCH ×2 (08:43→21:38)
[2019-06-16] MEDS: CIPROFLOXACIN 0.3% OPHT DROP 2.5 ML BOTTLE RIGHTEYE SCH ×3 (08:44→17:46)
--- NOTE | 2019-06-16 09:08 | NUR ---
SEEN AND EXAMINED BY ABIEL Bolaños AND WITH ELIZO.
--- NOTE | 2019-06-16 11:00 | NUR ---
SEEN BY GLENN Bolaños AND WITH NNO.
[2019-06-16 20:50] VITALS: BP 113/71
[2019-06-16] MEDS: ASCORBIC ACID 500 MG TABLET GT SCH (21:38)
[2019-06-17] MEDS: OMEPRAZOLE 20 MG CAPSULE.DR GT SCH (06:43)
[2019-06-17] MEDS: MULTIVIT, IRON, MIN NO. 8, FA TABLET GT SCH (06:43)
[2019-06-17 08:00] VITALS: BP 108/76
[2019-06-17] MEDS: METOPROLOL TARTRATE 50 MG TABLET GT SCH ×2 (08:34→20:55)
[2019-06-17] MEDS: BACLOFEN 20 MG TABLET GT SCH ×4 (08:34→20:55)
[2019-06-17] MEDS: SERTRALINE HCL 50 MG TABLET GT SCH (08:34)
[2019-06-17] MEDS: CIPROFLOXACIN 0.3% OPHT DROP 2.5 ML BOTTLE RIGHTEYE SCH ×3 (08:34→17:10)
[2019-06-17] MEDS: ACIDOPHILUS/BULGARICUS CHEW TAB GT SCH ×2 (08:34→20:55)
[2019-06-17] MEDS: SIMETHICONE 80 MG TAB.CHEW GT SCH ×3 (08:34→17:10)
[2019-06-17] MEDS: TRIAMCINOLONE ACET 0.1% OINT 15 GM TUBE TP SCH (08:34)
[2019-06-17] MEDS: Z GUARD REMEDY PASTE 57 GM TUBE TOP SCH ×2 (08:34→20:55)
[2019-06-17] MEDS: HYDROGEN PEROXIDE 3% 118 ML BOTTLE TP SCH ×2 (09:00→21:36)
--- NOTE | 2019-06-17 11:00 | NUR ---
Seen and examined by Dalia Rodriguez,no new orders.
[2019-06-17 20:18] VITALS: BP 110/71
[2019-06-17] MEDS: ASCORBIC ACID 500 MG TABLET GT SCH (20:55)
[2019-06-18] MEDS: OMEPRAZOLE 20 MG CAPSULE.DR GT SCH (06:05)
[2019-06-18 08:00] VITALS: BP 121/61
[2019-06-18] MEDS: HYDROGEN PEROXIDE 3% 118 ML BOTTLE TP SCH ×2 (09:00→21:50)
[2019-06-18] MEDS: ACIDOPHILUS/BULGARICUS CHEW TAB GT SCH ×2 (09:53→20:33)
[2019-06-18] MEDS: BACLOFEN 20 MG TABLET GT SCH ×4 (09:54→20:34)
[2019-06-18] MEDS: SIMETHICONE 80 MG TAB.CHEW GT SCH ×3 (09:55→17:47)
[2019-06-18] MEDS: SERTRALINE HCL 50 MG TABLET GT SCH (09:55)
[2019-06-18] MEDS: METOPROLOL TARTRATE 50 MG TABLET GT SCH ×2 (09:55→20:38)
[2019-06-18] MEDS: Z GUARD REMEDY PASTE 57 GM TUBE TOP SCH ×2 (09:56→20:38)
[2019-06-18] MEDS: CIPROFLOXACIN 0.3% OPHT DROP 2.5 ML BOTTLE RIGHTEYE SCH ×3 (09:56→17:48)
[2019-06-18] MEDS: TRIAMCINOLONE ACET 0.1% OINT 15 GM TUBE TP SCH (09:57)
[2019-06-18] MEDS: GLUCERNA 1.2 1000ML LIQUID GT PRN (19:20)
--- NOTE | 2019-06-18 19:25 | NUR ---
Seen and examined by Dr Heaton,no new orders noted.
[2019-06-18] MEDS: ASCORBIC ACID 500 MG TABLET GT SCH (20:38)
[2019-06-19] MEDS: OMEPRAZOLE 20 MG CAPSULE.DR GT SCH (05:17)
[2019-06-19] MEDS: MULTIVIT, IRON, MIN NO. 8, FA TABLET GT SCH (05:55)
[2019-06-19] MEDS: HYDROGEN PEROXIDE 3% 118 ML BOTTLE TP SCH ×2 (07:31→21:14)
[2019-06-19 08:00] VITALS: BP 120/61
[2019-06-19] MEDS: ACIDOPHILUS/BULGARICUS CHEW TAB GT SCH ×2 (08:57→21:22)
[2019-06-19] MEDS: BACLOFEN 20 MG TABLET GT SCH ×4 (08:57→21:23)
[2019-06-19] MEDS: METOPROLOL TARTRATE 50 MG TABLET GT SCH ×2 (08:57→21:25)
[2019-06-19] MEDS: SERTRALINE HCL 50 MG TABLET GT SCH (08:58)
[2019-06-19] MEDS: SIMETHICONE 80 MG TAB.CHEW GT SCH ×3 (08:58→17:47)
[2019-06-19] MEDS: Z GUARD REMEDY PASTE 57 GM TUBE TOP SCH ×2 (08:58→21:26)
[2019-06-19] MEDS: CIPROFLOXACIN 0.3% OPHT DROP 2.5 ML BOTTLE RIGHTEYE SCH ×3 (08:58→17:47)
[2019-06-19] MEDS: KETOCONAZOLE 2% SHAMPOO 120 ML BOTTLE TP SCH (08:58)
[2019-06-19] MEDS: TRIAMCINOLONE ACET 0.1% OINT 15 GM TUBE TP SCH (08:58)
[2019-06-19] MEDS: GLUCERNA 1.2 1000ML LIQUID GT PRN (17:48)
[2019-06-19 20:00] VITALS: BP 103/56
[2019-06-19] MEDS: ASCORBIC ACID 500 MG TABLET GT SCH (21:26)
[2019-06-20] MEDS: OMEPRAZOLE 20 MG CAPSULE.DR GT SCH (05:50)
[2019-06-20] MEDS: ACETAMINOPHEN 650 MG/20 ML UDC- SA PATIENTS-PAIN ONLY GT PRN (07:40)
[2019-06-20] MEDS: SERTRALINE HCL 50 MG TABLET GT SCH (08:53)
[2019-06-20] MEDS: SIMETHICONE 80 MG TAB.CHEW GT SCH ×3 (08:53→17:17)
[2019-06-20] MEDS: TRIAMCINOLONE ACET 0.1% OINT 15 GM TUBE TP SCH (08:53)
[2019-06-20] MEDS: METOPROLOL TARTRATE 50 MG TABLET GT SCH ×2 (08:53→20:48)
[2019-06-20] MEDS: BACLOFEN 20 MG TABLET GT SCH ×4 (08:53→20:48)
[2019-06-20] MEDS: Z GUARD REMEDY PASTE 57 GM TUBE TOP SCH ×2 (08:53→20:48)
[2019-06-20] MEDS: ACIDOPHILUS/BULGARICUS CHEW TAB GT SCH ×2 (08:53→20:48)
[2019-06-20] MEDS: HYDROGEN PEROXIDE 3% 118 ML BOTTLE TP SCH ×2 (09:00→18:58)
[2019-06-20 11:37] VITALS: BP 152/86
[2019-06-20] MEDS: GLUCERNA 1.2 1000ML LIQUID GT PRN (17:17)
[2019-06-20 20:00] VITALS: BP 127/78
[2019-06-20] MEDS: ASCORBIC ACID 500 MG TABLET GT SCH (20:48)
[2019-06-20] MEDS: TRIAMCINOLONE ACET 0.1% CREAM 15 GM TUBE TP SCH (20:48)
[2019-06-20] MEDS: NYSTATIN CREAM 30 GM TUBE TP SCH (20:48)
[2019-06-21] MEDS: OMEPRAZOLE 20 MG CAPSULE.DR GT SCH (05:37)
[2019-06-21] MEDS: MULTIVIT, IRON, MIN NO. 8, FA TABLET GT SCH (05:37)
[2019-06-21] MEDS: ACIDOPHILUS/BULGARICUS CHEW TAB GT SCH ×2 (09:24→20:50)
[2019-06-21] MEDS: Z GUARD REMEDY PASTE 57 GM TUBE TOP SCH ×2 (09:25→20:50)
[2019-06-21] MEDS: SIMETHICONE 80 MG TAB.CHEW GT SCH ×3 (09:25→17:27)
[2019-06-21] MEDS: SERTRALINE HCL 50 MG TABLET GT SCH (09:25)
[2019-06-21] MEDS: BACLOFEN 20 MG TABLET GT SCH ×4 (09:25→20:50)
[2019-06-21] MEDS: METOPROLOL TARTRATE 50 MG TABLET GT SCH ×2 (09:27→20:50)
[2019-06-21] MEDS: NYSTATIN CREAM 30 GM TUBE TP SCH ×2 (09:28→20:50)
[2019-06-21] MEDS: TRIAMCINOLONE ACET 0.1% OINT 15 GM TUBE TP SCH (09:28)
[2019-06-21] MEDS: TRIAMCINOLONE ACET 0.1% CREAM 15 GM TUBE TP SCH ×2 (09:28→20:50)
[2019-06-21] MEDS: HYDROGEN PEROXIDE 3% 118 ML BOTTLE TP SCH ×2 (09:30→21:00)
[2019-06-21 12:30] VITALS: BP 132/75
[2019-06-21] MEDS: GLUCERNA 1.2 1000ML LIQUID GT PRN (18:00)
[2019-06-21 20:11] VITALS: BP 118/81
[2019-06-21] MEDS: ASCORBIC ACID 500 MG TABLET GT SCH (20:50)
[2019-06-22] MEDS: OMEPRAZOLE 20 MG CAPSULE.DR GT SCH (05:48)
[2019-06-22 08:07] VITALS: BP 148/80
[2019-06-22] MEDS: BACLOFEN 20 MG TABLET GT SCH ×4 (08:08→20:35)
[2019-06-22] MEDS: ACIDOPHILUS/BULGARICUS CHEW TAB GT SCH ×2 (08:08→20:34)
[2019-06-22] MEDS: Z GUARD REMEDY PASTE 57 GM TUBE TOP SCH ×2 (08:13→20:35)
[2019-06-22] MEDS: SIMETHICONE 80 MG TAB.CHEW GT SCH ×3 (08:13→17:31)
[2019-06-22] MEDS: TRIAMCINOLONE ACET 0.1% CREAM 15 GM TUBE TP SCH ×2 (08:13→20:35)
[2019-06-22] MEDS: SERTRALINE HCL 50 MG TABLET GT SCH (08:13)
[2019-06-22] MEDS: METOPROLOL TARTRATE 50 MG TABLET GT SCH ×2 (08:13→20:35)
[2019-06-22] MEDS: NYSTATIN CREAM 30 GM TUBE TP SCH ×2 (08:13→20:35)
[2019-06-22] MEDS: TRIAMCINOLONE ACET 0.1% OINT 15 GM TUBE TP SCH (08:13)
[2019-06-22] MEDS: HYDROGEN PEROXIDE 3% 118 ML BOTTLE TP SCH ×2 (09:40→18:45)
[2019-06-22] MEDS: GLUCERNA 1.2 1000ML LIQUID GT PRN (12:39)
[2019-06-22] MEDS: ASCORBIC ACID 500 MG TABLET GT SCH (20:35)
[2019-06-22 20:52] VITALS: BP 130/81
[2019-06-23] MEDS: MULTIVIT, IRON, MIN NO. 8, FA TABLET GT SCH (05:40)
[2019-06-23] MEDS: OMEPRAZOLE 20 MG CAPSULE.DR GT SCH (05:40)
[2019-06-23 08:00] VITALS: BP 120/84
[2019-06-23] MEDS: ACIDOPHILUS/BULGARICUS CHEW TAB GT SCH ×2 (08:02→20:10)
[2019-06-23] MEDS: SIMETHICONE 80 MG TAB.CHEW GT SCH ×3 (08:04→16:43)
[2019-06-23] MEDS: TRIAMCINOLONE ACET 0.1% CREAM 15 GM TUBE TP SCH ×2 (08:04→20:11)
[2019-06-23] MEDS: KETOCONAZOLE 2% SHAMPOO 120 ML BOTTLE TP SCH (08:04)
[2019-06-23] MEDS: Z GUARD REMEDY PASTE 57 GM TUBE TOP SCH ×2 (08:04→20:11)
[2019-06-23] MEDS: SERTRALINE HCL 50 MG TABLET GT SCH (08:04)
[2019-06-23] MEDS: NYSTATIN CREAM 30 GM TUBE TP SCH ×2 (08:04→20:12)
[2019-06-23] MEDS: BACLOFEN 20 MG TABLET GT SCH ×4 (08:04→20:10)
[2019-06-23] MEDS: METOPROLOL TARTRATE 50 MG TABLET GT SCH ×2 (08:04→20:11)
[2019-06-23] MEDS: HYDROGEN PEROXIDE 3% 118 ML BOTTLE TP SCH ×2 (08:39→20:11)
[2019-06-23] MEDS: GLUCERNA 1.2 1000ML LIQUID GT PRN (12:18)
[2019-06-23] MEDS: ASCORBIC ACID 500 MG TABLET GT SCH (20:11)
[2019-06-23 20:14] VITALS: BP 131/80
[2019-06-24] MEDS: GLUCERNA 1.2 1000ML LIQUID GT PRN (04:31)
[2019-06-24] MEDS: OMEPRAZOLE 20 MG CAPSULE.DR GT SCH (05:35)
[2019-06-24 08:00] VITALS: BP 124/79
[2019-06-24] MEDS: ACIDOPHILUS/BULGARICUS CHEW TAB GT SCH ×2 (08:47→21:50)
[2019-06-24] MEDS: BACLOFEN 20 MG TABLET GT SCH ×4 (08:47→21:50)
[2019-06-24] MEDS: SIMETHICONE 80 MG TAB.CHEW GT SCH ×3 (08:48→16:26)
[2019-06-24] MEDS: METOPROLOL TARTRATE 50 MG TABLET GT SCH ×2 (08:48→21:51)
[2019-06-24] MEDS: SERTRALINE HCL 50 MG TABLET GT SCH (08:48)
[2019-06-24] MEDS: Z GUARD REMEDY PASTE 57 GM TUBE TOP SCH ×2 (08:50→21:53)
[2019-06-24] MEDS: NYSTATIN CREAM 30 GM TUBE TP SCH ×2 (08:50→21:53)
[2019-06-24] MEDS: TRIAMCINOLONE ACET 0.1% CREAM 15 GM TUBE TP SCH ×2 (08:50→21:53)
[2019-06-24] MEDS: HYDROGEN PEROXIDE 3% 118 ML BOTTLE TP SCH ×2 (09:50→21:32)
[2019-06-24 20:30] VITALS: BP 137/68
[2019-06-24] MEDS: ASCORBIC ACID 500 MG TABLET GT SCH (21:51)
[2019-06-25] MEDS: GLUCERNA 1.2 1000ML LIQUID GT PRN (03:15)
[2019-06-25] MEDS: OMEPRAZOLE 20 MG CAPSULE.DR GT SCH (05:26)
[2019-06-25] MEDS: MULTIVIT, IRON, MIN NO. 8, FA TABLET GT SCH (05:26)
[2019-06-25 08:00] VITALS: BP 108/76
[2019-06-25] MEDS: BACLOFEN 20 MG TABLET GT SCH ×4 (08:19→20:57)
[2019-06-25] MEDS: ACIDOPHILUS/BULGARICUS CHEW TAB GT SCH ×2 (08:19→20:57)
[2019-06-25] MEDS: METOPROLOL TARTRATE 50 MG TABLET GT SCH ×2 (08:20→20:57)
[2019-06-25] MEDS: SIMETHICONE 80 MG TAB.CHEW GT SCH ×3 (08:20→17:34)
[2019-06-25] MEDS: NYSTATIN CREAM 30 GM TUBE TP SCH ×2 (08:21→20:58)
[2019-06-25] MEDS: Z GUARD REMEDY PASTE 57 GM TUBE TOP SCH ×2 (08:21→20:58)
[2019-06-25] MEDS: TRIAMCINOLONE ACET 0.1% CREAM 15 GM TUBE TP SCH ×2 (08:21→20:58)
[2019-06-25] MEDS: SERTRALINE HCL 50 MG TABLET GT SCH (08:21)
[2019-06-25] MEDS: HYDROGEN PEROXIDE 3% 118 ML BOTTLE TP SCH ×2 (09:15→18:45)
[2019-06-25] MEDS: ASCORBIC ACID 500 MG TABLET GT SCH (20:58)
[2019-06-25 22:44] VITALS: BP 120/80
[2019-06-26] MEDS: GLUCERNA 1.2 1000ML LIQUID GT PRN (01:00)
[2019-06-26] MEDS: OMEPRAZOLE 20 MG CAPSULE.DR GT SCH (06:07)
[2019-06-26] MEDS: HYDROGEN PEROXIDE 3% 118 ML BOTTLE TP SCH ×2 (07:29→21:03)
[2019-06-26] MEDS: ACIDOPHILUS/BULGARICUS CHEW TAB GT SCH ×2 (09:18→21:13)
[2019-06-26] MEDS: BACLOFEN 20 MG TABLET GT SCH ×4 (09:18→21:13)
[2019-06-26] MEDS: KETOCONAZOLE 2% SHAMPOO 120 ML BOTTLE TP SCH (09:19)
[2019-06-26] MEDS: TRIAMCINOLONE ACET 0.1% CREAM 15 GM TUBE TP SCH ×2 (09:19→21:14)
[2019-06-26] MEDS: SIMETHICONE 80 MG TAB.CHEW GT SCH ×3 (09:19→17:26)
[2019-06-26] MEDS: NYSTATIN CREAM 30 GM TUBE TP SCH ×2 (09:19→21:14)
[2019-06-26] MEDS: Z GUARD REMEDY PASTE 57 GM TUBE TOP SCH ×2 (09:19→21:14)
[2019-06-26] MEDS: SERTRALINE HCL 50 MG TABLET GT SCH (09:19)
[2019-06-26] MEDS: METOPROLOL TARTRATE 50 MG TABLET GT SCH ×2 (09:20→21:13)
[2019-06-26 10:53] VITALS: BP 117/69
[2019-06-26 20:12] VITALS: BP 118/71
[2019-06-26] MEDS: ASCORBIC ACID 500 MG TABLET GT SCH (21:13)
[2019-06-27] MEDS: GLUCERNA 1.2 1000ML LIQUID GT PRN (01:00)
[2019-06-27] MEDS: MULTIVIT, IRON, MIN NO. 8, FA TABLET GT SCH (06:21)
[2019-06-27] MEDS: OMEPRAZOLE 20 MG CAPSULE.DR GT SCH (06:21)
[2019-06-27] MEDS: BACLOFEN 20 MG TABLET GT SCH ×4 (08:27→21:34)
[2019-06-27] MEDS: ACIDOPHILUS/BULGARICUS CHEW TAB GT SCH ×2 (08:27→21:33)
[2019-06-27] MEDS: METOPROLOL TARTRATE 50 MG TABLET GT SCH ×2 (08:28→21:35)
[2019-06-27] MEDS: TRIAMCINOLONE ACET 0.1% CREAM 15 GM TUBE TP SCH ×2 (08:28→21:36)
[2019-06-27] MEDS: SERTRALINE HCL 50 MG TABLET GT SCH (08:28)
[2019-06-27] MEDS: Z GUARD REMEDY PASTE 57 GM TUBE TOP SCH ×2 (08:28→21:36)
[2019-06-27] MEDS: SIMETHICONE 80 MG TAB.CHEW GT SCH ×3 (08:28→17:25)
[2019-06-27] MEDS: NYSTATIN CREAM 30 GM TUBE TP SCH ×2 (08:28→21:36)
[2019-06-27] MEDS: HYDROGEN PEROXIDE 3% 118 ML BOTTLE TP SCH ×2 (09:00→21:28)
[2019-06-27 13:51] VITALS: BP 129/86
[2019-06-27 13:53] VITALS: BP 136/68
[2019-06-27] MEDS: ASCORBIC ACID 500 MG TABLET GT SCH (21:36)
[2019-06-27 22:46] VITALS: BP 127/82
[2019-06-28] MEDS: GLUCERNA 1.2 1000ML LIQUID GT PRN (01:09)
[2019-06-28] MEDS: OMEPRAZOLE 20 MG CAPSULE.DR GT SCH (05:03)
[2019-06-28] MEDS: HYDROGEN PEROXIDE 3% 118 ML BOTTLE TP SCH ×2 (08:51→21:13)
[2019-06-28] MEDS: BACLOFEN 20 MG TABLET GT SCH ×4 (09:19→20:50)
[2019-06-28] MEDS: ACIDOPHILUS/BULGARICUS CHEW TAB GT SCH ×2 (09:19→20:49)
[2019-06-28] MEDS: SIMETHICONE 80 MG TAB.CHEW GT SCH ×3 (09:20→17:00)
[2019-06-28] MEDS: TRIAMCINOLONE ACET 0.1% CREAM 15 GM TUBE TP SCH ×2 (09:20→20:53)
[2019-06-28] MEDS: Z GUARD REMEDY PASTE 57 GM TUBE TOP SCH ×2 (09:20→20:52)
[2019-06-28] MEDS: SERTRALINE HCL 50 MG TABLET GT SCH (09:20)
[2019-06-28] MEDS: NYSTATIN CREAM 30 GM TUBE TP SCH ×2 (09:20→20:53)
[2019-06-28] MEDS: METOPROLOL TARTRATE 50 MG TABLET GT SCH ×2 (09:20→20:52)
[2019-06-28 11:21] VITALS: BP 111/69
[2019-06-28] MEDS: ASCORBIC ACID 500 MG TABLET GT SCH (20:52)
[2019-06-28 23:07] VITALS: BP 115/80
[2019-06-29] MEDS: GLUCERNA 1.2 1000ML LIQUID GT PRN ×2 (00:50→23:54)
[2019-06-29] MEDS: MULTIVIT, IRON, MIN NO. 8, FA TABLET GT SCH (05:55)
[2019-06-29] MEDS: OMEPRAZOLE 20 MG CAPSULE.DR GT SCH (05:55)
[2019-06-29 08:00] VITALS: BP 133/85
[2019-06-29] MEDS: HYDROGEN PEROXIDE 3% 118 ML BOTTLE TP SCH ×2 (08:29→20:59)
[2019-06-29] MEDS: SIMETHICONE 80 MG TAB.CHEW GT SCH ×3 (09:15→17:45)
[2019-06-29] MEDS: BACLOFEN 20 MG TABLET GT SCH ×4 (09:15→21:03)
[2019-06-29] MEDS: Z GUARD REMEDY PASTE 57 GM TUBE TOP SCH ×2 (09:15→21:04)
[2019-06-29] MEDS: ACIDOPHILUS/BULGARICUS CHEW TAB GT SCH ×2 (09:15→21:03)
[2019-06-29] MEDS: METOPROLOL TARTRATE 50 MG TABLET GT SCH ×2 (09:15→21:03)
[2019-06-29] MEDS: SERTRALINE HCL 50 MG TABLET GT SCH (09:15)
[2019-06-29] MEDS: TRIAMCINOLONE ACET 0.1% CREAM 15 GM TUBE TP SCH ×2 (09:16→21:04)
[2019-06-29] MEDS: NYSTATIN CREAM 30 GM TUBE TP SCH ×2 (09:16→21:04)
[2019-06-29] MEDS: ASCORBIC ACID 500 MG TABLET GT SCH (21:04)
[2019-06-29 23:00] VITALS: BP 108/66
[2019-06-30] MEDS: OMEPRAZOLE 20 MG CAPSULE.DR GT SCH (06:19)
[2019-06-30 08:00] VITALS: BP 108/70
[2019-06-30] MEDS: HYDROGEN PEROXIDE 3% 118 ML BOTTLE TP SCH ×2 (08:16→20:54)
[2019-06-30] MEDS: ACIDOPHILUS/BULGARICUS CHEW TAB GT SCH ×2 (08:34→21:51)
[2019-06-30] MEDS: BACLOFEN 20 MG TABLET GT SCH ×4 (08:34→21:51)
[2019-06-30] MEDS: NYSTATIN CREAM 30 GM TUBE TP SCH ×2 (08:35→21:52)
[2019-06-30] MEDS: SERTRALINE HCL 50 MG TABLET GT SCH (08:35)
[2019-06-30] MEDS: SIMETHICONE 80 MG TAB.CHEW GT SCH ×3 (08:35→17:56)
[2019-06-30] MEDS: METOPROLOL TARTRATE 50 MG TABLET GT SCH ×2 (08:35→21:51)
[2019-06-30] MEDS: KETOCONAZOLE 2% SHAMPOO 120 ML BOTTLE TP SCH (08:35)
[2019-06-30] MEDS: TRIAMCINOLONE ACET 0.1% CREAM 15 GM TUBE TP SCH ×2 (08:35→21:52)
[2019-06-30] MEDS: Z GUARD REMEDY PASTE 57 GM TUBE TOP SCH ×2 (08:35→21:52)
[2019-06-30 20:18] VITALS: BP 105/77
[2019-06-30] MEDS: ASCORBIC ACID 500 MG TABLET GT SCH (21:51)
[2019-06-30] MEDS: TRIAMCINOLONE ACET 0.1% OINT 15 GM TUBE TP SCH (21:52)
[2019-07-01] MEDS: GLUCERNA 1.2 1000ML LIQUID GT PRN ×2 (00:10→21:59)
[2019-07-01] MEDS: MULTIVIT, IRON, MIN NO. 8, FA TABLET GT SCH (05:36)
[2019-07-01] MEDS: OMEPRAZOLE 20 MG CAPSULE.DR GT SCH (05:36)
[2019-07-01 08:30] VITALS: BP 118/80
[2019-07-01] MEDS: HYDROGEN PEROXIDE 3% 118 ML BOTTLE TP SCH ×2 (09:10→21:09)
[2019-07-01] MEDS: ACIDOPHILUS/BULGARICUS CHEW TAB GT SCH ×2 (09:24→21:03)
[2019-07-01] MEDS: BACLOFEN 20 MG TABLET GT SCH ×4 (09:24→21:04)
[2019-07-01] MEDS: METOPROLOL TARTRATE 50 MG TABLET GT SCH ×2 (09:24→21:04)
[2019-07-01] MEDS: SIMETHICONE 80 MG TAB.CHEW GT SCH ×3 (09:24→17:34)
[2019-07-01] MEDS: SERTRALINE HCL 50 MG TABLET GT SCH (09:25)
[2019-07-01] MEDS: NYSTATIN CREAM 30 GM TUBE TP SCH ×2 (09:25→21:04)
[2019-07-01] MEDS: TRIAMCINOLONE ACET 0.1% OINT 15 GM TUBE TP SCH ×2 (09:25→21:05)
[2019-07-01] MEDS: Z GUARD REMEDY PASTE 57 GM TUBE TOP SCH ×2 (09:25→21:04)
[2019-07-01] MEDS: TRIAMCINOLONE ACET 0.1% CREAM 15 GM TUBE TP SCH ×2 (09:25→21:04)
[2019-07-01 20:46] VITALS: BP 125/68
[2019-07-01] MEDS: ASCORBIC ACID 500 MG TABLET GT SCH (21:04)
[2019-07-02] MEDS: OMEPRAZOLE 20 MG CAPSULE.DR GT SCH (05:54)
[2019-07-02 08:00] VITALS: BP 112/63
[2019-07-02] MEDS: Z GUARD REMEDY PASTE 57 GM TUBE TOP SCH ×2 (08:30→21:00)
[2019-07-02] MEDS: ACIDOPHILUS/BULGARICUS CHEW TAB GT SCH ×2 (08:30→21:00)
[2019-07-02] MEDS: SIMETHICONE 80 MG TAB.CHEW GT SCH ×3 (08:30→17:39)
[2019-07-02] MEDS: TRIAMCINOLONE ACET 0.1% OINT 15 GM TUBE TP SCH ×2 (08:30→21:00)
[2019-07-02] MEDS: BACLOFEN 20 MG TABLET GT SCH ×4 (08:30→21:00)
[2019-07-02] MEDS: METOPROLOL TARTRATE 50 MG TABLET GT SCH ×2 (08:30→21:00)
[2019-07-02] MEDS: NYSTATIN CREAM 30 GM TUBE TP SCH ×2 (08:30→21:00)
[2019-07-02] MEDS: TRIAMCINOLONE ACET 0.1% CREAM 15 GM TUBE TP SCH ×2 (08:30→21:00)
[2019-07-02] MEDS: SERTRALINE HCL 50 MG TABLET GT SCH (08:30)
[2019-07-02] MEDS: HYDROGEN PEROXIDE 3% 118 ML BOTTLE TP SCH ×2 (09:46→21:40)
--- NOTE | 2019-07-02 20:00 | NUR ---
VSS 98.3-73-16 BP 124/75. SATS 98%. PATIENT TRACHED TO 28% MIST MASK. COLOR FAIR. SKIN WARM, DRY, AND INTACT BUT PATIENT HAS A NONINVASIVE, TOPICAL FUNGUS TO BUTTOCKS--TREATED WITH APPROPRIATE CREAMS. ABDOMEN SOFTLY ROUNDED. GTUBE INTACT AND PATENT FOR GLUCERNA 1.2 @ 50 CC/HOUR. NO RESIDUAL--FEEDING CONTINUES. NO ACTIVE MOVEMENT NOTED AT THIS TIME. NO SIGNS OF ACUTE CARDIAC/RESPIRATORY DISTRESS.
[2019-07-02 20:52] VITALS: BP 124/75
[2019-07-02] MEDS: ASCORBIC ACID 500 MG TABLET GT SCH (21:00)
[2019-07-03] MEDS: MULTIVIT, IRON, MIN NO. 8, FA TABLET GT SCH (06:40)
[2019-07-03] MEDS: OMEPRAZOLE 20 MG CAPSULE.DR GT SCH (06:40)
[2019-07-03 08:00] VITALS: BP 129/70
[2019-07-03] MEDS: BACLOFEN 20 MG TABLET GT SCH ×4 (08:07→21:51)
[2019-07-03] MEDS: ACIDOPHILUS/BULGARICUS CHEW TAB GT SCH ×2 (08:07→21:51)
[2019-07-03] MEDS: TRIAMCINOLONE ACET 0.1% OINT 15 GM TUBE TP SCH ×2 (08:08→21:57)
[2019-07-03] MEDS: Z GUARD REMEDY PASTE 57 GM TUBE TOP SCH ×2 (08:08→21:56)
[2019-07-03] MEDS: SERTRALINE HCL 50 MG TABLET GT SCH (08:08)
[2019-07-03] MEDS: NYSTATIN CREAM 30 GM TUBE TP SCH ×2 (08:08→21:56)
[2019-07-03] MEDS: TRIAMCINOLONE ACET 0.1% CREAM 15 GM TUBE TP SCH ×2 (08:08→21:56)
[2019-07-03] MEDS: METOPROLOL TARTRATE 50 MG TABLET GT SCH ×2 (08:08→21:52)
[2019-07-03] MEDS: SIMETHICONE 80 MG TAB.CHEW GT SCH ×3 (08:08→17:29)
[2019-07-03] MEDS: KETOCONAZOLE 2% SHAMPOO 120 ML BOTTLE TP SCH (08:09)
[2019-07-03] MEDS: HYDROGEN PEROXIDE 3% 118 ML BOTTLE TP SCH ×2 (09:53→21:16)
[2019-07-03] MEDS: ACETAMINOPHEN 650 MG/20 ML UDC- SA PATIENTS-PAIN ONLY GT PRN (17:31)
[2019-07-03] MEDS: BISACODYL 10 MG SUPP.RECT RC PRN (18:31)
[2019-07-03 20:14] VITALS: BP 129/73
[2019-07-03] MEDS: ASCORBIC ACID 500 MG TABLET GT SCH (21:56)
[2019-07-04] MEDS: OMEPRAZOLE 20 MG CAPSULE.DR GT SCH (05:02)
[2019-07-04 08:04] VITALS: BP 132/84
[2019-07-04] MEDS: HYDROGEN PEROXIDE 3% 118 ML BOTTLE TP SCH ×2 (08:08→21:00)
[2019-07-04] MEDS: ACIDOPHILUS/BULGARICUS CHEW TAB GT SCH ×2 (09:38→20:25)
[2019-07-04] MEDS: BACLOFEN 20 MG TABLET GT SCH ×4 (09:38→20:25)
[2019-07-04] MEDS: SIMETHICONE 80 MG TAB.CHEW GT SCH ×3 (09:39→17:20)
[2019-07-04] MEDS: METOPROLOL TARTRATE 50 MG TABLET GT SCH ×2 (09:39→20:25)
[2019-07-04] MEDS: Z GUARD REMEDY PASTE 57 GM TUBE TOP SCH ×2 (09:39→20:26)
[2019-07-04] MEDS: NYSTATIN CREAM 30 GM TUBE TP SCH (09:39)
[2019-07-04] MEDS: TRIAMCINOLONE ACET 0.1% CREAM 15 GM TUBE TP SCH (09:39)
[2019-07-04] MEDS: TRIAMCINOLONE ACET 0.1% OINT 15 GM TUBE TP SCH ×2 (09:39→20:26)
[2019-07-04] MEDS: SERTRALINE HCL 50 MG TABLET GT SCH (09:39)
[2019-07-04 20:17] VITALS: BP 134/78
[2019-07-04] MEDS: ASCORBIC ACID 500 MG TABLET GT SCH (20:25)
[2019-07-05 04:36] VITALS: BP 112/60
[2019-07-05] MEDS: MULTIVIT, IRON, MIN NO. 8, FA TABLET GT SCH (05:49)
[2019-07-05] MEDS: OMEPRAZOLE 20 MG CAPSULE.DR GT SCH (05:49)
[2019-07-05] MEDS: HYDROGEN PEROXIDE 3% 118 ML BOTTLE TP SCH ×2 (07:10→21:15)
[2019-07-05 08:03] VITALS: BP 132/87
[2019-07-05] MEDS: ACIDOPHILUS/BULGARICUS CHEW TAB GT SCH ×2 (08:16→20:20)
[2019-07-05] MEDS: SIMETHICONE 80 MG TAB.CHEW GT SCH ×3 (08:16→17:18)
[2019-07-05] MEDS: SERTRALINE HCL 50 MG TABLET GT SCH (08:16)
[2019-07-05] MEDS: Z GUARD REMEDY PASTE 57 GM TUBE TOP SCH ×2 (08:16→20:20)
[2019-07-05] MEDS: METOPROLOL TARTRATE 50 MG TABLET GT SCH ×2 (08:16→20:20)
[2019-07-05] MEDS: BACLOFEN 20 MG TABLET GT SCH ×4 (08:16→20:20)
[2019-07-05] MEDS: TRIAMCINOLONE ACET 0.1% OINT 15 GM TUBE TP SCH ×2 (08:17→20:22)
[2019-07-05] MEDS: GLUCERNA 1.2 1000ML LIQUID GT PRN (09:23)
[2019-07-05] MEDS: ASCORBIC ACID 500 MG TABLET GT SCH (20:20)
[2019-07-05 20:23] VITALS: BP 124/79
[2019-07-06] MEDS: GLUCERNA 1.2 1000ML LIQUID GT PRN (03:53)
[2019-07-06] MEDS: OMEPRAZOLE 20 MG CAPSULE.DR GT SCH (05:53)
[2019-07-06] MEDS: HYDROGEN PEROXIDE 3% 118 ML BOTTLE TP SCH ×2 (07:15→18:54)
[2019-07-06 08:04] VITALS: BP 125/85
[2019-07-06] MEDS: ACIDOPHILUS/BULGARICUS CHEW TAB GT SCH ×2 (09:23→20:21)
[2019-07-06] MEDS: BACLOFEN 20 MG TABLET GT SCH ×4 (09:24→20:22)
[2019-07-06] MEDS: TRIAMCINOLONE ACET 0.1% OINT 15 GM TUBE TP SCH ×2 (09:37→20:22)
[2019-07-06] MEDS: SERTRALINE HCL 50 MG TABLET GT SCH (09:37)
[2019-07-06] MEDS: SIMETHICONE 80 MG TAB.CHEW GT SCH ×3 (09:37→17:18)
[2019-07-06] MEDS: METOPROLOL TARTRATE 50 MG TABLET GT SCH ×2 (09:37→20:22)
[2019-07-06] MEDS: Z GUARD REMEDY PASTE 57 GM TUBE TOP SCH ×2 (09:37→20:22)
[2019-07-06] MEDS: ASCORBIC ACID 500 MG TABLET GT SCH (20:22)
[2019-07-06 20:48] VITALS: BP 147/89
[2019-07-07] MEDS: OMEPRAZOLE 20 MG CAPSULE.DR GT SCH (05:23)
[2019-07-07] MEDS: GLUCERNA 1.2 1000ML LIQUID GT PRN (05:23)
[2019-07-07] MEDS: MULTIVIT, IRON, MIN NO. 8, FA TABLET GT SCH (06:11)
[2019-07-07 08:07] VITALS: BP 137/98
[2019-07-07] MEDS: TRIAMCINOLONE ACET 0.1% OINT 15 GM TUBE TP SCH ×2 (09:00→21:33)
[2019-07-07] MEDS: SIMETHICONE 80 MG TAB.CHEW GT SCH ×3 (09:01→17:15)
[2019-07-07] MEDS: Z GUARD REMEDY PASTE 57 GM TUBE TOP SCH ×2 (09:01→21:33)
[2019-07-07] MEDS: KETOCONAZOLE 2% SHAMPOO 120 ML BOTTLE TP SCH (09:01)
[2019-07-07] MEDS: BACLOFEN 20 MG TABLET GT SCH ×4 (09:01→21:33)
[2019-07-07] MEDS: ACIDOPHILUS/BULGARICUS CHEW TAB GT SCH ×2 (09:01→21:33)
[2019-07-07] MEDS: METOPROLOL TARTRATE 50 MG TABLET GT SCH ×2 (09:01→21:33)
[2019-07-07] MEDS: SERTRALINE HCL 50 MG TABLET GT SCH (09:01)
[2019-07-07] MEDS: HYDROGEN PEROXIDE 3% 118 ML BOTTLE TP SCH ×2 (09:46→20:24)
[2019-07-07 19:47] VITALS: BP 122/80
[2019-07-07] MEDS: ASCORBIC ACID 500 MG TABLET GT SCH (21:33)
[2019-07-08] MEDS: GLUCERNA 1.2 1000ML LIQUID GT PRN (03:44)
[2019-07-08] MEDS: OMEPRAZOLE 20 MG CAPSULE.DR GT SCH (05:46)
[2019-07-08 08:08] VITALS: BP 138/89
[2019-07-08] MEDS: ACIDOPHILUS/BULGARICUS CHEW TAB GT SCH ×2 (08:28→21:10)
[2019-07-08] MEDS: BACLOFEN 20 MG TABLET GT SCH ×4 (08:28→21:10)
[2019-07-08] MEDS: SIMETHICONE 80 MG TAB.CHEW GT SCH ×3 (08:29→17:37)
[2019-07-08] MEDS: METOPROLOL TARTRATE 50 MG TABLET GT SCH ×2 (08:29→21:12)
[2019-07-08] MEDS: Z GUARD REMEDY PASTE 57 GM TUBE TOP SCH ×2 (08:30→21:12)
[2019-07-08] MEDS: SERTRALINE HCL 50 MG TABLET GT SCH (08:30)
[2019-07-08] MEDS: TRIAMCINOLONE ACET 0.1% OINT 15 GM TUBE TP SCH ×2 (08:30→21:12)
[2019-07-08] MEDS: HYDROGEN PEROXIDE 3% 118 ML BOTTLE TP SCH ×2 (09:00→21:06)
--- NOTE | 2019-07-08 14:06 | NUR ---
Pharmacy Update from Today's 07/08/19 IDT meeting VS: Temp 98.4 BP 138/89 HR 87 LABS: (03/25/19, no new labs) Wbc 5.8 H/H 11.6/37 Plt 247 Na 138 K 3.9 Cl 103 CO2 23 BUN/SCr 16/0.8 BS 123 Ca 8.9 MEDICATION USE REVIEWED: > Pt is not on any anti-epileptic medications > Pt is on Zoloft 50mg daily for depression m/b episodes of crying; No GDR planned for pt d/t contraindication of persistent cry episodes and repeated failed GDRs in the past (see MD note). Patient had x4 episodes in May, pt's condition remains about baseline with occasional increases in episodes deemed likely from menstruation per MDs/team. Will continue to follow trend > Pt was on depo-provera [id number] for heavy menstruation, last given 03/30/19. Now d/c'd per gynocology as pt reaching menopause age and may no longer need. > PRN MED USAGE: (May) Tylenol 650mg for mild pain used x2 Tylenol for temp x0 Tylenol 1000mg mod pain x0 Bisacodyl x0 Rodriguez Flush enema x0 NEW ORDERS NOTED: > NA Patient was reviewed and discussed in detail with family in attendance and no medication issues noted. No further recommendations at this time as pt remains stable. Will continue to follow
--- NOTE | 2019-07-08 14:49 | NUR ---
INTERDISCIPLINARY PLAN OF CARE CONFERENCE was held today. Patient's family was unable to attend the meeting. Dr. Heaton and the Interdisciplinary Team reviewed the current plan of care in detail. RN reported on patient's current medical condition and current skin care. No major changes were reported in patient's condition. See RN IDT conference notes. See also all other disciplines IDT notes and physician's progress notes for additional details.
[2019-07-08 19:54] VITALS: BP 129/85
[2019-07-08] MEDS: ASCORBIC ACID 500 MG TABLET GT SCH (21:12)
[2019-07-09] MEDS: GLUCERNA 1.2 1000ML LIQUID GT PRN (00:46)
[2019-07-09] MEDS: OMEPRAZOLE 20 MG CAPSULE.DR GT SCH (05:14)
[2019-07-09] MEDS: MULTIVIT, IRON, MIN NO. 8, FA TABLET GT SCH (06:30)
[2019-07-09 08:16] VITALS: BP 133/92
[2019-07-09] MEDS: HYDROGEN PEROXIDE 3% 118 ML BOTTLE TP SCH ×2 (09:00→18:49)
[2019-07-09] MEDS: Z GUARD REMEDY PASTE 57 GM TUBE TOP SCH ×2 (09:05→20:36)
[2019-07-09] MEDS: TRIAMCINOLONE ACET 0.1% OINT 15 GM TUBE TP SCH ×2 (09:05→20:36)
[2019-07-09] MEDS: ACIDOPHILUS/BULGARICUS CHEW TAB GT SCH ×2 (09:07→20:32)
[2019-07-09] MEDS: BACLOFEN 20 MG TABLET GT SCH ×4 (09:09→20:33)
[2019-07-09] MEDS: METOPROLOL TARTRATE 50 MG TABLET GT SCH ×2 (09:10→20:35)
[2019-07-09] MEDS: SERTRALINE HCL 50 MG TABLET GT SCH (09:10)
[2019-07-09] MEDS: SIMETHICONE 80 MG TAB.CHEW GT SCH ×3 (09:11→16:58)
[2019-07-09 19:44] VITALS: BP 127/79
[2019-07-09] MEDS: ASCORBIC ACID 500 MG TABLET GT SCH (20:35)
[2019-07-10] MEDS: GLUCERNA 1.2 1000ML LIQUID GT PRN (01:00)
[2019-07-10] MEDS: OMEPRAZOLE 20 MG CAPSULE.DR GT SCH (06:02)
[2019-07-10 08:09] VITALS: BP 121/82
[2019-07-10] MEDS: ACIDOPHILUS/BULGARICUS CHEW TAB GT SCH ×2 (08:45→20:58)
[2019-07-10] MEDS: BACLOFEN 20 MG TABLET GT SCH ×4 (08:46→20:59)
[2019-07-10] MEDS: METOPROLOL TARTRATE 50 MG TABLET GT SCH ×2 (08:46→21:00)
[2019-07-10] MEDS: SIMETHICONE 80 MG TAB.CHEW GT SCH ×3 (08:46→17:55)
[2019-07-10] MEDS: SERTRALINE HCL 50 MG TABLET GT SCH (08:46)
[2019-07-10] MEDS: Z GUARD REMEDY PASTE 57 GM TUBE TOP SCH ×2 (08:47→21:01)
[2019-07-10] MEDS: KETOCONAZOLE 2% SHAMPOO 120 ML BOTTLE TP SCH (08:48)
[2019-07-10] MEDS: TRIAMCINOLONE ACET 0.1% OINT 15 GM TUBE TP SCH ×2 (08:48→21:02)
[2019-07-10] MEDS: HYDROGEN PEROXIDE 3% 118 ML BOTTLE TP SCH ×2 (09:47→21:03)
[2019-07-10 20:50] VITALS: BP 139/87
[2019-07-10] MEDS: ASCORBIC ACID 500 MG TABLET GT SCH (21:01)
[2019-07-11] MEDS: GLUCERNA 1.2 1000ML LIQUID GT PRN ×2 (01:16→22:42)
[2019-07-11] MEDS: OMEPRAZOLE 20 MG CAPSULE.DR GT SCH (06:06)
[2019-07-11] MEDS: MULTIVIT, IRON, MIN NO. 8, FA TABLET GT SCH (06:07)
[2019-07-11 08:00] VITALS: BP 114/84
[2019-07-11] MEDS: BACLOFEN 20 MG TABLET GT SCH ×4 (08:44→20:38)
[2019-07-11] MEDS: ACIDOPHILUS/BULGARICUS CHEW TAB GT SCH ×2 (08:44→20:38)
[2019-07-11] MEDS: Z GUARD REMEDY PASTE 57 GM TUBE TOP SCH ×2 (08:45→20:38)
[2019-07-11] MEDS: SIMETHICONE 80 MG TAB.CHEW GT SCH ×3 (08:45→17:08)
[2019-07-11] MEDS: SERTRALINE HCL 50 MG TABLET GT SCH (08:45)
[2019-07-11] MEDS: METOPROLOL TARTRATE 50 MG TABLET GT SCH ×2 (08:45→20:38)
[2019-07-11] MEDS: TRIAMCINOLONE ACET 0.1% OINT 15 GM TUBE TP SCH ×2 (08:46→20:38)
[2019-07-11] MEDS: HYDROGEN PEROXIDE 3% 118 ML BOTTLE TP SCH ×2 (09:56→21:31)
[2019-07-11] MEDS: ASCORBIC ACID 500 MG TABLET GT SCH (20:38)
[2019-07-11 20:44] VITALS: BP 135/84
[2019-07-12] MEDS: OMEPRAZOLE 20 MG CAPSULE.DR GT SCH (05:15)
[2019-07-12 08:00] VITALS: BP 132/83
[2019-07-12] MEDS: HYDROGEN PEROXIDE 3% 118 ML BOTTLE TP SCH ×2 (09:00→20:58)
[2019-07-12] MEDS: ACIDOPHILUS/BULGARICUS CHEW TAB GT SCH ×2 (09:29→20:46)
[2019-07-12] MEDS: BACLOFEN 20 MG TABLET GT SCH ×4 (09:29→20:46)
[2019-07-12] MEDS: METOPROLOL TARTRATE 50 MG TABLET GT SCH ×2 (09:30→20:46)
[2019-07-12] MEDS: SERTRALINE HCL 50 MG TABLET GT SCH (09:30)
[2019-07-12] MEDS: Z GUARD REMEDY PASTE 57 GM TUBE TOP SCH ×2 (09:30→20:47)
[2019-07-12] MEDS: SIMETHICONE 80 MG TAB.CHEW GT SCH ×3 (09:30→17:47)
[2019-07-12] MEDS: TRIAMCINOLONE ACET 0.1% OINT 15 GM TUBE TP SCH ×2 (09:30→20:47)
[2019-07-12] MEDS: ACETAMINOPHEN 650 MG/20 ML UDC- SA PATIENTS-PAIN ONLY GT PRN (09:34)
[2019-07-12] MEDS: GLUCERNA 1.2 1000ML LIQUID GT PRN (17:48)
[2019-07-12] MEDS: ASCORBIC ACID 500 MG TABLET GT SCH (20:46)
[2019-07-12 20:52] VITALS: BP 129/86
[2019-07-13] MEDS: MULTIVIT, IRON, MIN NO. 8, FA TABLET GT SCH (05:40)
[2019-07-13] MEDS: OMEPRAZOLE 20 MG CAPSULE.DR GT SCH (05:40)
[2019-07-13 08:00] VITALS: BP 123/81
[2019-07-13] MEDS: BACLOFEN 20 MG TABLET GT SCH ×4 (08:45→20:50)
[2019-07-13] MEDS: ACIDOPHILUS/BULGARICUS CHEW TAB GT SCH ×2 (08:45→20:50)
[2019-07-13] MEDS: TRIAMCINOLONE ACET 0.1% OINT 15 GM TUBE TP SCH ×2 (08:46→20:50)
[2019-07-13] MEDS: Z GUARD REMEDY PASTE 57 GM TUBE TOP SCH ×2 (08:46→20:50)
[2019-07-13] MEDS: SIMETHICONE 80 MG TAB.CHEW GT SCH ×3 (08:46→16:46)
[2019-07-13] MEDS: METOPROLOL TARTRATE 50 MG TABLET GT SCH ×2 (08:46→20:50)
[2019-07-13] MEDS: SERTRALINE HCL 50 MG TABLET GT SCH (08:46)
[2019-07-13] MEDS: HYDROGEN PEROXIDE 3% 118 ML BOTTLE TP SCH ×2 (09:00→21:37)
[2019-07-13] MEDS: GLUCERNA 1.2 1000ML LIQUID GT PRN (16:44)
[2019-07-13 20:36] VITALS: BP 122/78
[2019-07-13] MEDS: ASCORBIC ACID 500 MG TABLET GT SCH (20:50)
[2019-07-14] MEDS: OMEPRAZOLE 20 MG CAPSULE.DR GT SCH (05:34)
[2019-07-14 08:00] VITALS: BP 118/76
[2019-07-14] MEDS: BACLOFEN 20 MG TABLET GT SCH ×4 (08:26→21:01)
[2019-07-14] MEDS: ACIDOPHILUS/BULGARICUS CHEW TAB GT SCH ×2 (08:26→21:01)
[2019-07-14] MEDS: Z GUARD REMEDY PASTE 57 GM TUBE TOP SCH ×2 (08:27→21:01)
[2019-07-14] MEDS: KETOCONAZOLE 2% SHAMPOO 120 ML BOTTLE TP SCH (08:27)
[2019-07-14] MEDS: METOPROLOL TARTRATE 50 MG TABLET GT SCH ×2 (08:27→21:02)
[2019-07-14] MEDS: TRIAMCINOLONE ACET 0.1% OINT 15 GM TUBE TP SCH ×2 (08:27→21:01)
[2019-07-14] MEDS: SIMETHICONE 80 MG TAB.CHEW GT SCH ×3 (08:27→17:30)
[2019-07-14] MEDS: SERTRALINE HCL 50 MG TABLET GT SCH (08:27)
--- NOTE | 2019-07-14 08:35 | NUR ---
SEEN AND EXAMINED BY ABIEL MORGAN.
[2019-07-14] MEDS: HYDROGEN PEROXIDE 3% 118 ML BOTTLE TP SCH ×2 (09:48→21:01)
[2019-07-14] MEDS: GLUCERNA 1.2 1000ML LIQUID GT PRN (17:30)
[2019-07-14 20:24] VITALS: BP 112/85
[2019-07-14] MEDS: ASCORBIC ACID 500 MG TABLET GT SCH (21:01)
[2019-07-15] MEDS: MULTIVIT, IRON, MIN NO. 8, FA TABLET GT SCH (05:40)
[2019-07-15] MEDS: OMEPRAZOLE 20 MG CAPSULE.DR GT SCH (05:40)
[2019-07-15 08:00] VITALS: BP 138/94
[2019-07-15] MEDS: BACLOFEN 20 MG TABLET GT SCH ×4 (08:46→21:23)
[2019-07-15] MEDS: ACIDOPHILUS/BULGARICUS CHEW TAB GT SCH ×2 (08:46→21:22)
[2019-07-15] MEDS: METOPROLOL TARTRATE 50 MG TABLET GT SCH ×2 (08:48→21:24)
[2019-07-15] MEDS: SIMETHICONE 80 MG TAB.CHEW GT SCH ×3 (08:48→16:10)
[2019-07-15] MEDS: SERTRALINE HCL 50 MG TABLET GT SCH (08:48)
[2019-07-15] MEDS: TRIAMCINOLONE ACET 0.1% OINT 15 GM TUBE TP SCH ×2 (08:49→21:24)
[2019-07-15] MEDS: Z GUARD REMEDY PASTE 57 GM TUBE TOP SCH ×2 (08:49→21:24)
[2019-07-15] MEDS: HYDROGEN PEROXIDE 3% 118 ML BOTTLE TP SCH ×2 (09:15→21:08)
[2019-07-15] MEDS: GLUCERNA 1.2 1000ML LIQUID GT PRN (16:36)
[2019-07-15 20:00] VITALS: BP 127/88
[2019-07-15] MEDS: ASCORBIC ACID 500 MG TABLET GT SCH (21:24)
[2019-07-16] MEDS: OMEPRAZOLE 20 MG CAPSULE.DR GT SCH (06:24)
[2019-07-16] MEDS: ACIDOPHILUS/BULGARICUS CHEW TAB GT SCH ×2 (08:10→21:10)
[2019-07-16] MEDS: BACLOFEN 20 MG TABLET GT SCH ×4 (08:10→21:10)
[2019-07-16] MEDS: TRIAMCINOLONE ACET 0.1% OINT 15 GM TUBE TP SCH ×2 (08:11→21:12)
[2019-07-16] MEDS: Z GUARD REMEDY PASTE 57 GM TUBE TOP SCH ×2 (08:11→21:11)
[2019-07-16] MEDS: SERTRALINE HCL 50 MG TABLET GT SCH (08:11)
[2019-07-16] MEDS: SIMETHICONE 80 MG TAB.CHEW GT SCH ×3 (08:11→16:14)
[2019-07-16] MEDS: METOPROLOL TARTRATE 50 MG TABLET GT SCH ×2 (08:11→21:11)
[2019-07-16 09:52] VITALS: BP 119/75
[2019-07-16] MEDS: HYDROGEN PEROXIDE 3% 118 ML BOTTLE TP SCH ×2 (09:53→21:25)
[2019-07-16] MEDS: GLUCERNA 1.2 1000ML LIQUID GT PRN (16:15)
[2019-07-16 20:00] VITALS: BP 129/77
[2019-07-16] MEDS: ASCORBIC ACID 500 MG TABLET GT SCH (21:11)
[2019-07-17] MEDS: MULTIVIT, IRON, MIN NO. 8, FA TABLET GT SCH (05:38)
[2019-07-17] MEDS: OMEPRAZOLE 20 MG CAPSULE.DR GT SCH (05:38)
[2019-07-17] MEDS: HYDROGEN PEROXIDE 3% 118 ML BOTTLE TP SCH ×2 (07:20→21:00)
[2019-07-17 08:00] VITALS: BP 124/80
[2019-07-17] MEDS: ACIDOPHILUS/BULGARICUS CHEW TAB GT SCH ×2 (08:49→21:15)
[2019-07-17] MEDS: BACLOFEN 20 MG TABLET GT SCH ×4 (08:49→21:15)
[2019-07-17] MEDS: METOPROLOL TARTRATE 50 MG TABLET GT SCH ×2 (08:50→21:18)
[2019-07-17] MEDS: SIMETHICONE 80 MG TAB.CHEW GT SCH ×3 (08:51→16:20)
[2019-07-17] MEDS: SERTRALINE HCL 50 MG TABLET GT SCH (08:51)
[2019-07-17] MEDS: TRIAMCINOLONE ACET 0.1% OINT 15 GM TUBE TP SCH ×2 (08:51→21:19)
[2019-07-17] MEDS: Z GUARD REMEDY PASTE 57 GM TUBE TOP SCH ×2 (08:51→21:18)
[2019-07-17] MEDS: KETOCONAZOLE 2% SHAMPOO 120 ML BOTTLE TP SCH (08:52)
[2019-07-17] MEDS: GLUCERNA 1.2 1000ML LIQUID GT PRN (15:12)
--- NOTE | 2019-07-17 19:00 | NUR ---
SEEN BY WITH NNO.
[2019-07-17 20:00] VITALS: BP 126/84
[2019-07-17] MEDS: ASCORBIC ACID 500 MG TABLET GT SCH (21:18)
[2019-07-18] MEDS: OMEPRAZOLE 20 MG CAPSULE.DR GT SCH (06:14)
[2019-07-18 08:05] VITALS: BP 131/87
[2019-07-18] MEDS: BACLOFEN 20 MG TABLET GT SCH ×4 (08:55→20:38)
[2019-07-18] MEDS: ACIDOPHILUS/BULGARICUS CHEW TAB GT SCH ×2 (08:55→20:38)
[2019-07-18] MEDS: METOPROLOL TARTRATE 50 MG TABLET GT SCH ×2 (08:55→20:39)
[2019-07-18] MEDS: TRIAMCINOLONE ACET 0.1% OINT 15 GM TUBE TP SCH ×2 (08:56→20:39)
[2019-07-18] MEDS: SIMETHICONE 80 MG TAB.CHEW GT SCH ×3 (08:56→17:31)
[2019-07-18] MEDS: SERTRALINE HCL 50 MG TABLET GT SCH (08:56)
[2019-07-18] MEDS: Z GUARD REMEDY PASTE 57 GM TUBE TOP SCH ×2 (08:56→20:39)
[2019-07-18] MEDS: HYDROGEN PEROXIDE 3% 118 ML BOTTLE TP SCH ×2 (09:15→21:38)
[2019-07-18 20:05] VITALS: BP 117/83
[2019-07-18] MEDS: ASCORBIC ACID 500 MG TABLET GT SCH (20:39)
[2019-07-19] MEDS: OMEPRAZOLE 20 MG CAPSULE.DR GT SCH (05:10)
[2019-07-19] MEDS: MULTIVIT, IRON, MIN NO. 8, FA TABLET GT SCH (05:37)
[2019-07-19] MEDS: GLUCERNA 1.2 1000ML LIQUID GT PRN (05:38)
[2019-07-19 08:05] VITALS: BP 123/84
[2019-07-19] MEDS: SERTRALINE HCL 50 MG TABLET GT SCH (08:39)
[2019-07-19] MEDS: METOPROLOL TARTRATE 50 MG TABLET GT SCH ×2 (08:39→21:24)
[2019-07-19] MEDS: ACIDOPHILUS/BULGARICUS CHEW TAB GT SCH ×2 (08:39→21:24)
[2019-07-19] MEDS: Z GUARD REMEDY PASTE 57 GM TUBE TOP SCH ×2 (08:39→21:25)
[2019-07-19] MEDS: SIMETHICONE 80 MG TAB.CHEW GT SCH ×3 (08:39→16:10)
[2019-07-19] MEDS: BACLOFEN 20 MG TABLET GT SCH ×4 (08:39→21:24)
[2019-07-19] MEDS: TRIAMCINOLONE ACET 0.1% OINT 15 GM TUBE TP SCH ×2 (08:42→21:25)
[2019-07-19] MEDS: HYDROGEN PEROXIDE 3% 118 ML BOTTLE TP SCH ×2 (09:45→19:00)
--- NOTE | 2019-07-19 11:00 | NUR ---
Seen by Dr. St, with no new orders.
[2019-07-19 20:41] VITALS: BP 114/84
[2019-07-19] MEDS: ASCORBIC ACID 500 MG TABLET GT SCH (21:24)
[2019-07-20] MEDS: GLUCERNA 1.2 1000ML LIQUID GT PRN (00:13)
[2019-07-20] MEDS: OMEPRAZOLE 20 MG CAPSULE.DR GT SCH (05:02)
[2019-07-20 08:05] VITALS: BP 130/81
[2019-07-20] MEDS: ACIDOPHILUS/BULGARICUS CHEW TAB GT SCH ×2 (08:58→21:48)
[2019-07-20] MEDS: SIMETHICONE 80 MG TAB.CHEW GT SCH ×3 (08:59→16:54)
[2019-07-20] MEDS: Z GUARD REMEDY PASTE 57 GM TUBE TOP SCH ×2 (08:59→21:48)
[2019-07-20] MEDS: SERTRALINE HCL 50 MG TABLET GT SCH (08:59)
[2019-07-20] MEDS: BACLOFEN 20 MG TABLET GT SCH ×4 (08:59→21:48)
[2019-07-20] MEDS: TRIAMCINOLONE ACET 0.1% OINT 15 GM TUBE TP SCH ×2 (08:59→21:48)
[2019-07-20] MEDS: METOPROLOL TARTRATE 50 MG TABLET GT SCH ×2 (08:59→21:48)
[2019-07-20] MEDS: HYDROGEN PEROXIDE 3% 118 ML BOTTLE TP SCH ×2 (09:17→21:10)
[2019-07-20 21:00] VITALS: BP 121/78
[2019-07-20] MEDS: ASCORBIC ACID 500 MG TABLET GT SCH (21:48)
[2019-07-21] MEDS: GLUCERNA 1.2 1000ML LIQUID GT PRN (01:13)
[2019-07-21] MEDS: OMEPRAZOLE 20 MG CAPSULE.DR GT SCH (05:37)
[2019-07-21] MEDS: MULTIVIT, IRON, MIN NO. 8, FA TABLET GT SCH (05:37)
[2019-07-21 08:00] VITALS: BP 134/78
[2019-07-21] MEDS: METOPROLOL TARTRATE 50 MG TABLET GT SCH ×2 (08:25→21:02)
[2019-07-21] MEDS: SIMETHICONE 80 MG TAB.CHEW GT SCH ×3 (08:25→17:26)
[2019-07-21] MEDS: KETOCONAZOLE 2% SHAMPOO 120 ML BOTTLE TP SCH (08:25)
[2019-07-21] MEDS: BACLOFEN 20 MG TABLET GT SCH ×4 (08:25→21:02)
[2019-07-21] MEDS: TRIAMCINOLONE ACET 0.1% OINT 15 GM TUBE TP SCH (08:25)
[2019-07-21] MEDS: SERTRALINE HCL 50 MG TABLET GT SCH (08:25)
[2019-07-21] MEDS: Z GUARD REMEDY PASTE 57 GM TUBE TOP SCH ×2 (08:25→21:02)
[2019-07-21] MEDS: ACIDOPHILUS/BULGARICUS CHEW TAB GT SCH ×2 (08:25→21:02)
[2019-07-21] MEDS: HYDROGEN PEROXIDE 3% 118 ML BOTTLE TP SCH ×2 (09:56→21:52)
[2019-07-21 20:37] VITALS: BP 134/90
[2019-07-21] MEDS: ASCORBIC ACID 500 MG TABLET GT SCH (21:02)
[2019-07-22] MEDS: GLUCERNA 1.2 1000ML LIQUID GT PRN ×2 (01:13→22:46)
[2019-07-22] MEDS: OMEPRAZOLE 20 MG CAPSULE.DR GT SCH (06:34)
[2019-07-22 08:00] VITALS: BP 128/84
[2019-07-22] MEDS: BACLOFEN 20 MG TABLET GT SCH ×4 (08:25→20:31)
[2019-07-22] MEDS: ACIDOPHILUS/BULGARICUS CHEW TAB GT SCH ×2 (08:25→20:31)
[2019-07-22] MEDS: METOPROLOL TARTRATE 50 MG TABLET GT SCH ×2 (08:26→20:31)
[2019-07-22] MEDS: Z GUARD REMEDY PASTE 57 GM TUBE TOP SCH ×2 (08:26→20:32)
[2019-07-22] MEDS: SERTRALINE HCL 50 MG TABLET GT SCH (08:26)
[2019-07-22] MEDS: SIMETHICONE 80 MG TAB.CHEW GT SCH ×3 (08:26→16:20)
[2019-07-22] MEDS: HYDROGEN PEROXIDE 3% 118 ML BOTTLE TP SCH ×2 (09:20→21:16)
[2019-07-22] MEDS: ASCORBIC ACID 500 MG TABLET GT SCH (20:32)
[2019-07-22 21:16] VITALS: BP 127/80
[2019-07-23] MEDS: OMEPRAZOLE 20 MG CAPSULE.DR GT SCH (05:33)
[2019-07-23] MEDS: MULTIVIT, IRON, MIN NO. 8, FA TABLET GT SCH (05:33)
[2019-07-23 08:00] VITALS: BP 125/79
[2019-07-23] MEDS: BACLOFEN 20 MG TABLET GT SCH ×4 (08:41→20:19)
[2019-07-23] MEDS: ACIDOPHILUS/BULGARICUS CHEW TAB GT SCH ×2 (08:41→20:19)
[2019-07-23] MEDS: METOPROLOL TARTRATE 50 MG TABLET GT SCH ×2 (08:42→20:20)
[2019-07-23] MEDS: SIMETHICONE 80 MG TAB.CHEW GT SCH ×3 (08:42→17:00)
[2019-07-23] MEDS: SERTRALINE HCL 50 MG TABLET GT SCH (08:43)
[2019-07-23] MEDS: Z GUARD REMEDY PASTE 57 GM TUBE TOP SCH ×2 (08:43→20:20)
[2019-07-23] MEDS: HYDROGEN PEROXIDE 3% 118 ML BOTTLE TP SCH ×2 (09:11→20:43)
[2019-07-23 20:00] VITALS: BP 118/76
[2019-07-23] MEDS: ASCORBIC ACID 500 MG TABLET GT SCH (20:20)
[2019-07-23] MEDS: GLUCERNA 1.2 1000ML LIQUID GT PRN (23:14)
[2019-07-24] MEDS: GLUCERNA 1.2 1000ML LIQUID GT PRN (05:11)
[2019-07-24] MEDS: OMEPRAZOLE 20 MG CAPSULE.DR GT SCH (05:11)
[2019-07-24 08:09] VITALS: BP 128/77
[2019-07-24] MEDS: BACLOFEN 20 MG TABLET GT SCH ×4 (09:00→20:46)
[2019-07-24] MEDS: ACIDOPHILUS/BULGARICUS CHEW TAB GT SCH ×2 (09:00→20:46)
[2019-07-24] MEDS: METOPROLOL TARTRATE 50 MG TABLET GT SCH ×2 (09:01→20:47)
[2019-07-24] MEDS: SERTRALINE HCL 50 MG TABLET GT SCH (09:01)
[2019-07-24] MEDS: KETOCONAZOLE 2% SHAMPOO 120 ML BOTTLE TP SCH (09:01)
[2019-07-24] MEDS: SIMETHICONE 80 MG TAB.CHEW GT SCH ×3 (09:01→17:54)
[2019-07-24] MEDS: Z GUARD REMEDY PASTE 57 GM TUBE TOP SCH ×2 (09:01→20:47)
[2019-07-24] MEDS: HYDROGEN PEROXIDE 3% 118 ML BOTTLE TP SCH ×2 (09:49→21:00)
--- NOTE | 2019-07-24 13:57 | NUR ---
SEEN BY DR. TRACI LEE WITH NNO.
[2019-07-24 20:00] VITALS: BP 133/88
[2019-07-24] MEDS: ASCORBIC ACID 500 MG TABLET GT SCH (20:47)
[2019-07-25] MEDS: OMEPRAZOLE 20 MG CAPSULE.DR GT SCH (05:18)
[2019-07-25] MEDS: MULTIVIT, IRON, MIN NO. 8, FA TABLET GT SCH (05:32)
[2019-07-25 08:08] VITALS: BP 130/80
[2019-07-25] MEDS: Z GUARD REMEDY PASTE 57 GM TUBE TOP SCH ×2 (09:00→21:46)
[2019-07-25] MEDS: BACLOFEN 20 MG TABLET GT SCH ×4 (09:00→21:44)
[2019-07-25] MEDS: HYDROGEN PEROXIDE 3% 118 ML BOTTLE TP SCH ×2 (09:00→21:03)
--- NOTE | 2019-07-25 11:00 | NUR ---
KUB WITH GASTROGRAFIN WAS REPEATED D/T RESULT NOT CLEAR FOR PLACEMENT AND WITH RESULT AT THIS TIME:APPROPRIATE INTRALUMINAL GASTROSTOMY TUBE PLACEMENT AND GT TUBE FEEDING STARTED.
[2019-07-25] MEDS: ACIDOPHILUS/BULGARICUS CHEW TAB GT SCH ×2 (11:50→21:44)
[2019-07-25] MEDS: METOPROLOL TARTRATE 50 MG TABLET GT SCH ×2 (11:51→21:46)
[2019-07-25] MEDS: SERTRALINE HCL 50 MG TABLET GT SCH (11:53)
[2019-07-25] MEDS: SIMETHICONE 80 MG TAB.CHEW GT SCH ×3 (11:53→17:51)
[2019-07-25] MEDS: [UNRECOGNIZED DRUG - OTHER] RC PRN (12:00)
--- NOTE | 2019-07-25 13:30 | NUR ---
PER METER CALIBRATOR REPORT PT. NOTED WITH LOST OF BOWEL AND STOMACH GAS AND DAWN FLUSH GIVEN AT THIS TIME BUT NOTED FLUID NOT GOING BY GRAVITY COMPLETELY D/T LARGE DRY STOOL NOTED VISIBLE AT THE ENTRANCE OF THE ANAL AREA AND DULCOLAX SUPPOSITORY GIVEN AND PT. WAS TURNED ON HER SIDES ONLY TO FACILITATE BOWEL MOVEMENTS D/T PT. DOES NOT FOLLOW INSTRUCTIOINS.
[2019-07-25] MEDS: BISACODYL 10 MG SUPP.RECT RC PRN (13:46)
[2019-07-25] MEDS: GLUCERNA 1.2 1000ML LIQUID GT PRN (17:51)
--- NOTE | 2019-07-25 17:54 | NUR ---
NOTED BY FORWARD AIR CONTROLLER/AIR OFFICER WITH XL STOOL ANT THIS TIME AND SHE KEEPS GOING AND AGAIN TURNED ON HER SIDE ONLY TO FACILITATE EXPULSION OF STOOL,AND NOTED WITH SLIGHTLY BLOODY STOOLS AT THIS TIME AND WILL CONT. MONITORING.PT. VISIBLY MORE COMFORTABLE.
[2019-07-25 20:00] VITALS: BP 130/85
[2019-07-25] MEDS: ASCORBIC ACID 500 MG TABLET GT SCH (21:46)
[2019-07-26] MEDS: OMEPRAZOLE 20 MG CAPSULE.DR GT SCH (05:14)
[2019-07-26] MEDS: HYDROGEN PEROXIDE 3% 118 ML BOTTLE TP SCH ×2 (09:00→21:42)
[2019-07-26] MEDS: ACIDOPHILUS/BULGARICUS CHEW TAB GT SCH ×2 (09:18→20:13)
[2019-07-26] MEDS: BACLOFEN 20 MG TABLET GT SCH ×4 (09:18→20:13)
[2019-07-26] MEDS: SIMETHICONE 80 MG TAB.CHEW GT SCH ×3 (09:19→17:00)
[2019-07-26] MEDS: METOPROLOL TARTRATE 50 MG TABLET GT SCH ×2 (09:19→20:13)
[2019-07-26] MEDS: Z GUARD REMEDY PASTE 57 GM TUBE TOP SCH ×2 (09:20→20:13)
[2019-07-26] MEDS: SERTRALINE HCL 50 MG TABLET GT SCH (09:20)
[2019-07-26] MEDS: ACETAMINOPHEN 650 MG/20 ML UDC- SA PATIENTS-PAIN ONLY GT PRN (09:23)
[2019-07-26 11:42] VITALS: BP 125/80
[2019-07-26] MEDS: GLUCERNA 1.2 1000ML LIQUID GT PRN (13:12)
[2019-07-26] MEDS: ASCORBIC ACID 500 MG TABLET GT SCH (20:13)
[2019-07-26 20:23] VITALS: BP 116/76
[2019-07-27] MEDS: OMEPRAZOLE 20 MG CAPSULE.DR GT SCH (05:46)
[2019-07-27] MEDS: MULTIVIT, IRON, MIN NO. 8, FA TABLET GT SCH (05:46)
[2019-07-27 08:00] VITALS: BP 129/69
[2019-07-27] MEDS: HYDROGEN PEROXIDE 3% 118 ML BOTTLE TP SCH ×2 (08:55→20:37)
[2019-07-27] MEDS: BACLOFEN 20 MG TABLET GT SCH ×4 (09:05→20:24)
[2019-07-27] MEDS: ACIDOPHILUS/BULGARICUS CHEW TAB GT SCH ×2 (09:05→20:23)
[2019-07-27] MEDS: Z GUARD REMEDY PASTE 57 GM TUBE TOP SCH ×2 (09:06→20:25)
[2019-07-27] MEDS: METOPROLOL TARTRATE 50 MG TABLET GT SCH ×2 (09:06→20:24)
[2019-07-27] MEDS: SERTRALINE HCL 50 MG TABLET GT SCH (09:06)
[2019-07-27] MEDS: SIMETHICONE 80 MG TAB.CHEW GT SCH ×3 (09:06→17:58)
[2019-07-27 20:08] VITALS: BP 126/71
[2019-07-27] MEDS: ASCORBIC ACID 500 MG TABLET GT SCH (20:25)
[2019-07-28] MEDS: OMEPRAZOLE 20 MG CAPSULE.DR GT SCH (05:20)
[2019-07-28 08:00] VITALS: BP 158/86
[2019-07-28] MEDS: HYDROGEN PEROXIDE 3% 118 ML BOTTLE TP SCH ×2 (09:00→21:16)
[2019-07-28] MEDS: METOPROLOL TARTRATE 50 MG TABLET GT SCH ×2 (09:00→20:45)
[2019-07-28] MEDS: BACLOFEN 20 MG TABLET GT SCH ×4 (09:38→20:44)
[2019-07-28] MEDS: SIMETHICONE 80 MG TAB.CHEW GT SCH ×3 (09:38→17:00)
[2019-07-28] MEDS: SERTRALINE HCL 50 MG TABLET GT SCH (09:38)
[2019-07-28] MEDS: Z GUARD REMEDY PASTE 57 GM TUBE TOP SCH ×2 (09:38→20:45)
[2019-07-28] MEDS: ACIDOPHILUS/BULGARICUS CHEW TAB GT SCH ×2 (09:38→20:44)
[2019-07-28] MEDS: KETOCONAZOLE 2% SHAMPOO 120 ML BOTTLE TP SCH (09:38)
[2019-07-28 16:13] LABS: BASOPHILS % (AUTO) 0.3 % (0.0-2.0); EOSINOPHILS # (AUTO) 0.2 K/uL (0.0-0.7); EOSINOPHILS % (AUTO) 2.6 % (0.0-7.0); HEMATOCRIT 38.9 % (31.2-41.9); HEMOGLOBIN 12.4 g/dL (10.9-14.3); LYMPHOCYTES # (AUTO) 3.3 K/uL (20.0-40.0); LYMPHOCYTES % (AUTO) 39.7 % (20.5-51.5); MEAN CORPUSCULAR HEMOGLOBIN 22.2 uug (24.7-32.8); MEAN CORPUSCULAR HGB CONC 32 g/dL (32.3-35.6); MEAN CORPUSCULAR VOLUME 69.8 fL (75.5-95.3); MONOCYTES # (AUTO) 0.8 K/uL (2.0-10.0); MONOCYTES % (AUTO) 9.4 % (0.0-11.0); NEUTROPHILS # (AUTO) 3.9 K/uL (1.8-8.9); PLATELET COUNT (AUTO) 257 K/uL (179-408); RED BLOOD CELL COUNT(AUTO) 5.57 MIL/uL (3.63-4.92); WHITE BLOOD COUNT (AUTO) 8.2 K/uL (3.8-11.8)
[2019-07-28 16:22] LABS: CREATININE 0.7 mg/dL (0.6-1.3); POTASSIUM 3.9 mmol/L (3.5-5.1)
[2019-07-28 17:12] LABS: LYMPHOCYTES % (MANUAL) 32 % (20-40); MONOCYTES % (MANUAL) 6 % (2-10); NEUTROPHILS % (MANUAL) 58 % (42-75)
[2019-07-28 20:17] VITALS: BP 135/79
[2019-07-28] MEDS: TRIAMCINOLONE ACET 0.1% CREAM 15 GM TUBE TP SCH (20:45)
[2019-07-28] MEDS: ASCORBIC ACID 500 MG TABLET GT SCH (20:45)
[2019-07-29] MEDS: OMEPRAZOLE 20 MG CAPSULE.DR GT SCH (05:35)
[2019-07-29] MEDS: MULTIVIT, IRON, MIN NO. 8, FA TABLET GT SCH (05:35)
[2019-07-29 08:00] VITALS: BP 136/93
[2019-07-29] MEDS: HYDROGEN PEROXIDE 3% 118 ML BOTTLE TP SCH ×2 (09:00→20:37)
[2019-07-29] MEDS: ACIDOPHILUS/BULGARICUS CHEW TAB GT SCH ×2 (09:13→21:10)
[2019-07-29] MEDS: BACLOFEN 20 MG TABLET GT SCH ×4 (09:14→21:10)
[2019-07-29] MEDS: Z GUARD REMEDY PASTE 57 GM TUBE TOP SCH ×2 (09:14→21:11)
[2019-07-29] MEDS: METOPROLOL TARTRATE 50 MG TABLET GT SCH ×2 (09:14→21:11)
[2019-07-29] MEDS: SIMETHICONE 80 MG TAB.CHEW GT SCH ×3 (09:14→17:29)
[2019-07-29] MEDS: TRIAMCINOLONE ACET 0.1% CREAM 15 GM TUBE TP SCH ×2 (09:14→21:11)
[2019-07-29] MEDS: SERTRALINE HCL 50 MG TABLET GT SCH (09:14)
[2019-07-29] MEDS: GLUCERNA 1.2 1000ML LIQUID GT PRN (15:28)
[2019-07-29 20:00] VITALS: BP 115/75
[2019-07-29] MEDS: ASCORBIC ACID 500 MG TABLET GT SCH (21:11)
[2019-07-30] MEDS: OMEPRAZOLE 20 MG CAPSULE.DR GT SCH (06:00)
[2019-07-30] MEDS: ACIDOPHILUS/BULGARICUS CHEW TAB GT SCH ×2 (08:13→21:38)
[2019-07-30] MEDS: BACLOFEN 20 MG TABLET GT SCH ×4 (08:17→21:38)
[2019-07-30] MEDS: SIMETHICONE 80 MG TAB.CHEW GT SCH ×3 (08:18→17:42)
[2019-07-30] MEDS: METOPROLOL TARTRATE 50 MG TABLET GT SCH ×2 (08:18→21:39)
[2019-07-30] MEDS: Z GUARD REMEDY PASTE 57 GM TUBE TOP SCH ×2 (08:18→21:39)
[2019-07-30] MEDS: SERTRALINE HCL 50 MG TABLET GT SCH (08:18)
[2019-07-30] MEDS: TRIAMCINOLONE ACET 0.1% CREAM 15 GM TUBE TP SCH ×2 (08:19→21:39)
[2019-07-30] MEDS: HYDROGEN PEROXIDE 3% 118 ML BOTTLE TP SCH ×2 (09:20→20:40)
[2019-07-30 12:09] VITALS: BP 117/69
[2019-07-30 20:00] VITALS: BP 130/78
[2019-07-30] MEDS: ASCORBIC ACID 500 MG TABLET GT SCH (21:39)
[2019-07-31] MEDS: OMEPRAZOLE 20 MG CAPSULE.DR GT SCH (05:40)
[2019-07-31] MEDS: MULTIVIT, IRON, MIN NO. 8, FA TABLET GT SCH (05:40)
[2019-07-31] MEDS: BACLOFEN 20 MG TABLET GT SCH ×4 (08:35→20:39)
[2019-07-31] MEDS: ACIDOPHILUS/BULGARICUS CHEW TAB GT SCH ×2 (08:35→20:39)
[2019-07-31] MEDS: METOPROLOL TARTRATE 50 MG TABLET GT SCH ×2 (08:36→20:40)
[2019-07-31] MEDS: SERTRALINE HCL 50 MG TABLET GT SCH (08:36)
[2019-07-31] MEDS: Z GUARD REMEDY PASTE 57 GM TUBE TOP SCH ×2 (08:36→20:40)
[2019-07-31] MEDS: TRIAMCINOLONE ACET 0.1% CREAM 15 GM TUBE TP SCH ×2 (08:36→20:40)
[2019-07-31] MEDS: KETOCONAZOLE 2% SHAMPOO 120 ML BOTTLE TP SCH (08:36)
[2019-07-31] MEDS: SIMETHICONE 80 MG TAB.CHEW GT SCH ×3 (08:36→17:49)
[2019-07-31] MEDS: HYDROGEN PEROXIDE 3% 118 ML BOTTLE TP SCH ×2 (09:00→21:12)
[2019-07-31 11:14] VITALS: BP 124/76
[2019-07-31] MEDS: GLUCERNA 1.2 1000ML LIQUID GT PRN (14:23)
[2019-07-31] MEDS: ASCORBIC ACID 500 MG TABLET GT SCH (20:40)
[2019-07-31 20:43] VITALS: BP 133/84
[2019-08-01] MEDS: OMEPRAZOLE 20 MG CAPSULE.DR GT SCH (06:14)
[2019-08-01] MEDS: SERTRALINE HCL 50 MG TABLET GT SCH (09:00)
[2019-08-01] MEDS: SIMETHICONE 80 MG TAB.CHEW GT SCH ×3 (09:00→17:57)
[2019-08-01] MEDS: TRIAMCINOLONE ACET 0.1% CREAM 15 GM TUBE TP SCH ×2 (09:00→20:58)
[2019-08-01] MEDS: ACIDOPHILUS/BULGARICUS CHEW TAB GT SCH ×2 (09:00→20:54)
[2019-08-01] MEDS: METOPROLOL TARTRATE 50 MG TABLET GT SCH ×2 (09:00→20:58)
[2019-08-01] MEDS: Z GUARD REMEDY PASTE 57 GM TUBE TOP SCH ×2 (09:00→20:58)
[2019-08-01] MEDS: BACLOFEN 20 MG TABLET GT SCH ×4 (09:00→20:54)
[2019-08-01] MEDS: HYDROGEN PEROXIDE 3% 118 ML BOTTLE TP SCH ×2 (09:28→22:04)
[2019-08-01 10:56] VITALS: BP 125/85
[2019-08-01] MEDS: GLUCERNA 1.2 1000ML LIQUID GT PRN (12:23)
--- NOTE | 2019-08-01 18:54 | NUR ---
This SW spoke with patient's brother Frank [phone] and informed him that per CDC and [facility] decision to minimize the risk of subacute residents becoming sick with the COVID-19 virus, visitation to all LTC facilities will be suspended, effective immediately, and until further notice. Frank expressed understanding.
[2019-08-01] MEDS: ASCORBIC ACID 500 MG TABLET GT SCH (20:58)
[2019-08-01 21:00] VITALS: BP 121/88
[2019-08-02] MEDS: OMEPRAZOLE 20 MG CAPSULE.DR GT SCH (05:40)
[2019-08-02] MEDS: MULTIVIT, IRON, MIN NO. 8, FA TABLET GT SCH (05:40)
--- NOTE | 2019-08-02 08:00 | NUR ---
Pt received awake,has trach connected to p mist ,afebrile temp 98.3,o2 sat 98 %no respiratory distress ,no discomfort noted.
[2019-08-02] MEDS: ACIDOPHILUS/BULGARICUS CHEW TAB GT SCH ×2 (08:29→20:45)
[2019-08-02] MEDS: BACLOFEN 20 MG TABLET GT SCH ×4 (08:29→20:45)
[2019-08-02] MEDS: TRIAMCINOLONE ACET 0.1% CREAM 15 GM TUBE TP SCH ×2 (08:30→20:45)
[2019-08-02] MEDS: METOPROLOL TARTRATE 50 MG TABLET GT SCH ×2 (08:30→20:45)
[2019-08-02] MEDS: SERTRALINE HCL 50 MG TABLET GT SCH (08:30)
[2019-08-02] MEDS: SIMETHICONE 80 MG TAB.CHEW GT SCH ×3 (08:30→17:10)
[2019-08-02] MEDS: Z GUARD REMEDY PASTE 57 GM TUBE TOP SCH ×2 (08:30→20:45)
[2019-08-02] MEDS: HYDROGEN PEROXIDE 3% 118 ML BOTTLE TP SCH ×2 (09:02→19:02)
[2019-08-02] MEDS: GLUCERNA 1.2 1000ML LIQUID GT PRN (10:29)
[2019-08-02 11:10] VITALS: BP 120/67
[2019-08-02] MEDS: ASCORBIC ACID 500 MG TABLET GT SCH (20:45)
[2019-08-02 20:46] VITALS: BP 129/79
--- NOTE | 2019-08-02 22:30 | NUR ---
Temperature is 98.6, trach is intact and patent, no respiratory distress noted, 02 sat @ 98%, no signs of any pain or discomfort, kept clean and comfortable.
[2019-08-03] MEDS: GLUCERNA 1.2 1000ML LIQUID GT PRN (01:06)
[2019-08-03] MEDS: OMEPRAZOLE 20 MG CAPSULE.DR GT SCH (05:16)
[2019-08-03 08:00] VITALS: BP 146/108
[2019-08-03] MEDS: BACLOFEN 20 MG TABLET GT SCH ×4 (08:22→20:46)
[2019-08-03] MEDS: ACIDOPHILUS/BULGARICUS CHEW TAB GT SCH ×2 (08:22→20:46)
[2019-08-03] MEDS: METOPROLOL TARTRATE 50 MG TABLET GT SCH ×2 (08:23→20:46)
[2019-08-03] MEDS: SIMETHICONE 80 MG TAB.CHEW GT SCH ×3 (08:23→17:30)
[2019-08-03] MEDS: SERTRALINE HCL 50 MG TABLET GT SCH (08:24)
[2019-08-03] MEDS: TRIAMCINOLONE ACET 0.1% CREAM 15 GM TUBE TP SCH ×2 (08:24→20:46)
[2019-08-03] MEDS: Z GUARD REMEDY PASTE 57 GM TUBE TOP SCH ×2 (08:24→20:46)
[2019-08-03] MEDS: HYDROGEN PEROXIDE 3% 118 ML BOTTLE TP SCH ×2 (09:00→18:55)
--- NOTE | 2019-08-03 16:42 | NUR ---
Afebrile temp 98 ,no respiratory distress noted,trach to p mist,suctioned as needed,hob elevated to prevent aspiration.
[2019-08-03 20:40] VITALS: BP 139/80
[2019-08-03] MEDS: ASCORBIC ACID 500 MG TABLET GT SCH (20:46)
--- NOTE | 2019-08-03 21:47 | NUR ---
Afebrile, temperature is 98.9 Fahrenheit, trach is intact and patent, 02 sat is 97%, no respiratory distress noted, kept clean and comfortable.
[2019-08-04] MEDS: GLUCERNA 1.2 1000ML LIQUID GT PRN (03:57)
[2019-08-04] MEDS: MULTIVIT, IRON, MIN NO. 8, FA TABLET GT SCH (05:38)
[2019-08-04] MEDS: OMEPRAZOLE 20 MG CAPSULE.DR GT SCH (05:38)
[2019-08-04 08:00] VITALS: BP 128/82
[2019-08-04] MEDS: ACIDOPHILUS/BULGARICUS CHEW TAB GT SCH ×2 (08:15→21:15)
[2019-08-04] MEDS: BACLOFEN 20 MG TABLET GT SCH ×4 (08:15→21:15)
[2019-08-04] MEDS: METOPROLOL TARTRATE 50 MG TABLET GT SCH ×2 (08:17→21:16)
[2019-08-04] MEDS: SERTRALINE HCL 50 MG TABLET GT SCH (08:17)
[2019-08-04] MEDS: SIMETHICONE 80 MG TAB.CHEW GT SCH ×3 (08:17→17:26)
[2019-08-04] MEDS: Z GUARD REMEDY PASTE 57 GM TUBE TOP SCH ×2 (08:17→21:16)
[2019-08-04] MEDS: TRIAMCINOLONE ACET 0.1% CREAM 15 GM TUBE TP SCH ×2 (08:17→21:16)
[2019-08-04] MEDS: KETOCONAZOLE 2% SHAMPOO 120 ML BOTTLE TP SCH (08:18)
[2019-08-04] MEDS: HYDROGEN PEROXIDE 3% 118 ML BOTTLE TP SCH ×2 (09:00→20:43)
--- NOTE | 2019-08-04 14:39 | NUR ---
Patient stable, no acute respiratory distress noted, repositioned q2hrs for comfort.
[2019-08-04 21:04] VITALS: BP 138/90
[2019-08-04] MEDS: ASCORBIC ACID 500 MG TABLET GT SCH (21:16)
--- NOTE | 2019-08-04 21:32 | NUR ---
Temperature is 98.6, no SOB, no signs of any respiratory distress noted, patient is stable, turned and repositioned, kept clean and comfortable.
[2019-08-05] MEDS: OMEPRAZOLE 20 MG CAPSULE.DR GT SCH (06:00)
[2019-08-05] MEDS: GLUCERNA 1.2 1000ML LIQUID GT PRN (06:00)
[2019-08-05] MEDS: ACIDOPHILUS/BULGARICUS CHEW TAB GT SCH ×2 (08:04→21:10)
[2019-08-05] MEDS: BACLOFEN 20 MG TABLET GT SCH ×4 (08:04→21:10)
[2019-08-05] MEDS: Z GUARD REMEDY PASTE 57 GM TUBE TOP SCH ×2 (08:05→21:11)
[2019-08-05] MEDS: SIMETHICONE 80 MG TAB.CHEW GT SCH ×3 (08:05→16:59)
[2019-08-05] MEDS: TRIAMCINOLONE ACET 0.1% CREAM 15 GM TUBE TP SCH ×2 (08:05→21:11)
[2019-08-05] MEDS: METOPROLOL TARTRATE 50 MG TABLET GT SCH ×2 (08:05→21:10)
[2019-08-05] MEDS: SERTRALINE HCL 50 MG TABLET GT SCH (08:05)
[2019-08-05 08:15] VITALS: BP 121/71
[2019-08-05] MEDS: HYDROGEN PEROXIDE 3% 118 ML BOTTLE TP SCH ×2 (09:52→21:01)
--- NOTE | 2019-08-05 18:14 | NUR ---
No acute respiratory distress ,no increase secretions,afebrile temp 98.4.
[2019-08-05 20:00] VITALS: BP 118/79
[2019-08-05] MEDS: ASCORBIC ACID 500 MG TABLET GT SCH (21:10)
[2019-08-06] MEDS: GLUCERNA 1.2 1000ML LIQUID GT PRN (04:06)
[2019-08-06] MEDS: OMEPRAZOLE 20 MG CAPSULE.DR GT SCH (05:43)
[2019-08-06] MEDS: MULTIVIT, IRON, MIN NO. 8, FA TABLET GT SCH (05:43)
[2019-08-06] MEDS: HYDROGEN PEROXIDE 3% 118 ML BOTTLE TP SCH ×2 (07:49→19:43)
[2019-08-06 08:13] VITALS: BP 132/84
[2019-08-06] MEDS: ACIDOPHILUS/BULGARICUS CHEW TAB GT SCH ×2 (08:45→21:23)
[2019-08-06] MEDS: BACLOFEN 20 MG TABLET GT SCH ×4 (08:45→21:23)
[2019-08-06] MEDS: METOPROLOL TARTRATE 50 MG TABLET GT SCH ×2 (08:47→21:23)
[2019-08-06] MEDS: SIMETHICONE 80 MG TAB.CHEW GT SCH ×3 (08:47→17:00)
[2019-08-06] MEDS: TRIAMCINOLONE ACET 0.1% CREAM 15 GM TUBE TP SCH ×2 (08:48→21:24)
[2019-08-06] MEDS: Z GUARD REMEDY PASTE 57 GM TUBE TOP SCH ×2 (08:48→21:24)
[2019-08-06] MEDS: SERTRALINE HCL 50 MG TABLET GT SCH (09:23)
--- NOTE | 2019-08-06 18:16 | NUR ---
In stable condition,no respiratory distress,trach connected to p mist,afebrile temp 98.7.
[2019-08-06 20:30] VITALS: BP 133/94
[2019-08-06] MEDS: ASCORBIC ACID 500 MG TABLET GT SCH (21:23)
[2019-08-07] MEDS: GLUCERNA 1.2 1000ML LIQUID GT PRN (04:30)
[2019-08-07] MEDS: OMEPRAZOLE 20 MG CAPSULE.DR GT SCH (06:08)
[2019-08-07] MEDS: ACIDOPHILUS/BULGARICUS CHEW TAB GT SCH ×2 (08:23→21:01)
[2019-08-07] MEDS: METOPROLOL TARTRATE 50 MG TABLET GT SCH ×2 (08:24→21:02)
[2019-08-07] MEDS: BACLOFEN 20 MG TABLET GT SCH ×4 (08:24→21:01)
[2019-08-07] MEDS: SIMETHICONE 80 MG TAB.CHEW GT SCH ×3 (08:24→17:29)
[2019-08-07] MEDS: SERTRALINE HCL 50 MG TABLET GT SCH (08:24)
[2019-08-07] MEDS: TRIAMCINOLONE ACET 0.1% CREAM 15 GM TUBE TP SCH ×2 (08:25→21:02)
[2019-08-07] MEDS: Z GUARD REMEDY PASTE 57 GM TUBE TOP SCH ×2 (08:25→21:02)
[2019-08-07] MEDS: KETOCONAZOLE 2% SHAMPOO 120 ML BOTTLE TP SCH (08:25)
[2019-08-07] MEDS: HYDROGEN PEROXIDE 3% 118 ML BOTTLE TP SCH ×2 (09:34→21:08)
[2019-08-07 11:29] VITALS: BP 118/72
[2019-08-07 20:18] VITALS: BP 113/80
[2019-08-07] MEDS: ASCORBIC ACID 500 MG TABLET GT SCH (21:02)
[2019-08-08] MEDS: GLUCERNA 1.2 1000ML LIQUID GT PRN (04:00)
[2019-08-08] MEDS: OMEPRAZOLE 20 MG CAPSULE.DR GT SCH (05:59)
[2019-08-08] MEDS: MULTIVIT, IRON, MIN NO. 8, FA TABLET GT SCH (05:59)
[2019-08-08] MEDS: BISACODYL 10 MG SUPP.RECT RC PRN (06:12)
[2019-08-08 08:08] VITALS: BP 126/84
[2019-08-08] MEDS: ACIDOPHILUS/BULGARICUS CHEW TAB GT SCH ×2 (08:38→20:38)
[2019-08-08] MEDS: BACLOFEN 20 MG TABLET GT SCH ×4 (08:38→20:38)
[2019-08-08] MEDS: Z GUARD REMEDY PASTE 57 GM TUBE TOP SCH ×2 (08:39→20:38)
[2019-08-08] MEDS: METOPROLOL TARTRATE 50 MG TABLET GT SCH ×2 (08:39→20:39)
[2019-08-08] MEDS: SERTRALINE HCL 50 MG TABLET GT SCH (08:39)
[2019-08-08] MEDS: TRIAMCINOLONE ACET 0.1% CREAM 15 GM TUBE TP SCH ×2 (08:39→20:39)
[2019-08-08] MEDS: SIMETHICONE 80 MG TAB.CHEW GT SCH ×3 (08:39→16:41)
[2019-08-08] MEDS: HYDROGEN PEROXIDE 3% 118 ML BOTTLE TP SCH ×2 (09:01→20:38)
[2019-08-08 20:34] VITALS: BP 138/78
[2019-08-08] MEDS: ASCORBIC ACID 500 MG TABLET GT SCH (20:39)
[2019-08-09] MEDS: GLUCERNA 1.2 1000ML LIQUID GT PRN ×2 (03:50→21:52)
[2019-08-09] MEDS: OMEPRAZOLE 20 MG CAPSULE.DR GT SCH (05:26)
[2019-08-09] MEDS: Z GUARD REMEDY PASTE 57 GM TUBE TOP SCH ×2 (08:41→21:01)
[2019-08-09] MEDS: TRIAMCINOLONE ACET 0.1% CREAM 15 GM TUBE TP SCH ×2 (08:41→21:01)
[2019-08-09] MEDS: METOPROLOL TARTRATE 50 MG TABLET GT SCH ×2 (08:41→21:01)
[2019-08-09] MEDS: SIMETHICONE 80 MG TAB.CHEW GT SCH ×3 (08:41→17:15)
[2019-08-09] MEDS: ACIDOPHILUS/BULGARICUS CHEW TAB GT SCH ×2 (08:41→21:01)
[2019-08-09] MEDS: BACLOFEN 20 MG TABLET GT SCH ×4 (08:41→21:01)
[2019-08-09] MEDS: SERTRALINE HCL 50 MG TABLET GT SCH (08:41)
[2019-08-09] MEDS: HYDROGEN PEROXIDE 3% 118 ML BOTTLE TP SCH ×2 (09:10→21:23)
--- NOTE | 2019-08-09 13:00 | NUR ---
SEEN BY DR. IBRAHIM AND WITH NNO.
[2019-08-09 20:15] VITALS: BP 129/83
[2019-08-09] MEDS: ASCORBIC ACID 500 MG TABLET GT SCH (21:01)
[2019-08-10] MEDS: MULTIVIT, IRON, MIN NO. 8, FA TABLET GT SCH (05:38)
[2019-08-10] MEDS: OMEPRAZOLE 20 MG CAPSULE.DR GT SCH (05:38)
[2019-08-10 08:00] VITALS: BP 118/75
[2019-08-10] MEDS: ACIDOPHILUS/BULGARICUS CHEW TAB GT SCH ×2 (08:57→20:54)
[2019-08-10] MEDS: BACLOFEN 20 MG TABLET GT SCH ×4 (08:58→20:54)
[2019-08-10] MEDS: METOPROLOL TARTRATE 50 MG TABLET GT SCH ×2 (08:59→20:55)
[2019-08-10] MEDS: SIMETHICONE 80 MG TAB.CHEW GT SCH ×3 (08:59→17:49)
[2019-08-10] MEDS: SERTRALINE HCL 50 MG TABLET GT SCH (08:59)
[2019-08-10] MEDS: TRIAMCINOLONE ACET 0.1% CREAM 15 GM TUBE TP SCH ×2 (08:59→20:55)
[2019-08-10] MEDS: Z GUARD REMEDY PASTE 57 GM TUBE TOP SCH ×2 (08:59→20:55)
[2019-08-10] MEDS: HYDROGEN PEROXIDE 3% 118 ML BOTTLE TP SCH ×2 (09:00→21:37)
[2019-08-10] MEDS: GLUCERNA 1.2 1000ML LIQUID GT PRN (17:50)
[2019-08-10] MEDS: ASCORBIC ACID 500 MG TABLET GT SCH (20:55)
[2019-08-10 20:59] VITALS: BP 127/29
[2019-08-11] MEDS: OMEPRAZOLE 20 MG CAPSULE.DR GT SCH (05:14)
[2019-08-11 08:00] VITALS: BP 120/79
[2019-08-11] MEDS: HYDROGEN PEROXIDE 3% 118 ML BOTTLE TP SCH ×2 (09:00→20:53)
[2019-08-11] MEDS: SIMETHICONE 80 MG TAB.CHEW GT SCH ×3 (09:34→18:00)
[2019-08-11] MEDS: BACLOFEN 20 MG TABLET GT SCH ×4 (09:34→21:02)
[2019-08-11] MEDS: ACIDOPHILUS/BULGARICUS CHEW TAB GT SCH ×2 (09:34→21:01)
[2019-08-11] MEDS: SERTRALINE HCL 50 MG TABLET GT SCH (09:34)
[2019-08-11] MEDS: METOPROLOL TARTRATE 50 MG TABLET GT SCH ×2 (09:34→21:03)
[2019-08-11] MEDS: TRIAMCINOLONE ACET 0.1% CREAM 15 GM TUBE TP SCH ×2 (09:35→21:03)
[2019-08-11] MEDS: Z GUARD REMEDY PASTE 57 GM TUBE TOP SCH ×2 (09:35→21:03)
[2019-08-11] MEDS: KETOCONAZOLE 2% SHAMPOO 120 ML BOTTLE TP SCH (09:35)
[2019-08-11] MEDS: ACETAMINOPHEN 650 MG/20 ML UDC- SA PATIENTS-PAIN ONLY GT PRN (13:48)
[2019-08-11] MEDS: GLUCERNA 1.2 1000ML LIQUID GT PRN (18:36)
[2019-08-11 20:17] VITALS: BP 116/69
[2019-08-11] MEDS: ASCORBIC ACID 500 MG TABLET GT SCH (21:03)
[2019-08-12] MEDS: OMEPRAZOLE 20 MG CAPSULE.DR GT SCH (05:20)
[2019-08-12] MEDS: MULTIVIT, IRON, MIN NO. 8, FA TABLET GT SCH (05:33)
[2019-08-12 08:00] VITALS: BP 137/90
[2019-08-12] MEDS: BACLOFEN 20 MG TABLET GT SCH ×4 (08:28→20:46)
[2019-08-12] MEDS: ACIDOPHILUS/BULGARICUS CHEW TAB GT SCH ×2 (08:28→20:46)
[2019-08-12] MEDS: SERTRALINE HCL 50 MG TABLET GT SCH (08:31)
[2019-08-12] MEDS: Z GUARD REMEDY PASTE 57 GM TUBE TOP SCH ×2 (08:31→20:47)
[2019-08-12] MEDS: SIMETHICONE 80 MG TAB.CHEW GT SCH ×3 (08:31→17:30)
[2019-08-12] MEDS: METOPROLOL TARTRATE 50 MG TABLET GT SCH ×2 (08:31→20:47)
[2019-08-12] MEDS: TRIAMCINOLONE ACET 0.1% CREAM 15 GM TUBE TP SCH ×2 (08:31→20:47)
[2019-08-12] MEDS: HYDROGEN PEROXIDE 3% 118 ML BOTTLE TP SCH ×2 (09:00→21:00)
--- NOTE | 2019-08-12 15:34 | NUR ---
INTERDISCIPLINARY PLAN OF CARE CONFERENCE was held today. Patient's family was unable to attend the meeting. Dr. Heaton and the Interdisciplinary Team reviewed the current plan of care in detail. RN reported on patient's medical condition. See RN IDT conference notes. No major changes in condition were reported. See also all other disciplines IDT notes and physician's progress notes for additional details.
--- NOTE | 2019-08-12 15:47 | NUR ---
Pharmacy Update from Today's 08/12/19 IDT meeting VS: Temp 97.9 BP 137/90 HR 86 LABS: (from 07/28/19) Wbc 8.2 H/H 12.4/38.9 Plt 257 Na 136 K 3.9 Cl 102 CO2 28 BUN/SCr 16/0.7 BS 105 Ca 9.0 MEDICATION USE REVIEWED: > Pt is not on any anti-epileptic medications > Pt is on Zoloft 50mg daily for depression m/b episodes of crying; No GDR planned for pt d/t contraindication of persistent cry episodes and repeated failed GDRs in the past (see MD note). Patient had x12 episodes in Jun, pt's condition remains about baseline with occasional increases in episodes. Will continue to follow trend > Pt was on depo-provera [id number] for heavy menstruation, last given 03/30/19. Now d/c'd per gynocology as pt reaching menopause age and may no longer need. > PRN MED USAGE: (Jun) Tylenol 650mg for mild pain used x2 Tylenol for temp x0 Tylenol 1000mg mod pain x0 Bisacodyl x1 Rodriguez Flush enema x0 NEW ORDERS NOTED: > NA Patient was reviewed and discussed in detail with no medication issues noted per team. No further rx recommendations at this time as pt remains stable. Will continue to follow
[2019-08-12 20:00] VITALS: BP 145/94
[2019-08-12] MEDS: ASCORBIC ACID 500 MG TABLET GT SCH (20:47)
[2019-08-13] MEDS: GLUCERNA 1.2 1000ML LIQUID GT PRN (04:04)
[2019-08-13] MEDS: OMEPRAZOLE 20 MG CAPSULE.DR GT SCH (06:02)
[2019-08-13] MEDS: ACIDOPHILUS/BULGARICUS CHEW TAB GT SCH ×2 (08:18→20:59)
[2019-08-13] MEDS: BACLOFEN 20 MG TABLET GT SCH ×4 (08:18→20:59)
[2019-08-13] MEDS: METOPROLOL TARTRATE 50 MG TABLET GT SCH ×2 (08:19→21:00)
[2019-08-13] MEDS: SIMETHICONE 80 MG TAB.CHEW GT SCH ×3 (08:19→17:52)
[2019-08-13] MEDS: Z GUARD REMEDY PASTE 57 GM TUBE TOP SCH ×2 (08:20→21:00)
[2019-08-13] MEDS: SERTRALINE HCL 50 MG TABLET GT SCH (08:20)
[2019-08-13] MEDS: TRIAMCINOLONE ACET 0.1% CREAM 15 GM TUBE TP SCH ×2 (08:20→21:00)
[2019-08-13 08:30] VITALS: BP 127/83
[2019-08-13] MEDS: HYDROGEN PEROXIDE 3% 118 ML BOTTLE TP SCH ×2 (09:35→19:04)
[2019-08-13 20:00] VITALS: BP 140/90
[2019-08-13] MEDS: ASCORBIC ACID 500 MG TABLET GT SCH (21:00)
[2019-08-14] MEDS: GLUCERNA 1.2 1000ML LIQUID GT PRN (01:02)
[2019-08-14] MEDS: OMEPRAZOLE 20 MG CAPSULE.DR GT SCH (05:49)
[2019-08-14] MEDS: MULTIVIT, IRON, MIN NO. 8, FA TABLET GT SCH (05:49)
[2019-08-14 08:30] VITALS: BP 124/71
[2019-08-14] MEDS: KETOCONAZOLE 2% SHAMPOO 120 ML BOTTLE TP SCH (08:49)
[2019-08-14] MEDS: METOPROLOL TARTRATE 50 MG TABLET GT SCH ×2 (08:49→21:12)
[2019-08-14] MEDS: BACLOFEN 20 MG TABLET GT SCH ×4 (08:49→21:11)
[2019-08-14] MEDS: ACIDOPHILUS/BULGARICUS CHEW TAB GT SCH ×2 (08:49→21:10)
[2019-08-14] MEDS: SIMETHICONE 80 MG TAB.CHEW GT SCH ×3 (08:49→16:29)
[2019-08-14] MEDS: TRIAMCINOLONE ACET 0.1% CREAM 15 GM TUBE TP SCH ×2 (08:49→21:12)
[2019-08-14] MEDS: Z GUARD REMEDY PASTE 57 GM TUBE TOP SCH ×2 (08:49→21:12)
[2019-08-14] MEDS: SERTRALINE HCL 50 MG TABLET GT SCH (08:49)
[2019-08-14] MEDS: HYDROGEN PEROXIDE 3% 118 ML BOTTLE TP SCH ×2 (09:00→21:27)
[2019-08-14 20:46] VITALS: BP 146/89
[2019-08-14] MEDS: ASCORBIC ACID 500 MG TABLET GT SCH (21:12)
[2019-08-15] MEDS: GLUCERNA 1.2 1000ML LIQUID GT PRN (01:58)
[2019-08-15] MEDS: OMEPRAZOLE 20 MG CAPSULE.DR GT SCH (06:06)
[2019-08-15] MEDS: BACLOFEN 20 MG TABLET GT SCH ×4 (08:32→21:00)
[2019-08-15] MEDS: ACIDOPHILUS/BULGARICUS CHEW TAB GT SCH ×2 (08:32→21:00)
[2019-08-15] MEDS: METOPROLOL TARTRATE 50 MG TABLET GT SCH ×2 (08:33→21:00)
[2019-08-15] MEDS: SIMETHICONE 80 MG TAB.CHEW GT SCH ×3 (08:33→17:23)
[2019-08-15] MEDS: SERTRALINE HCL 50 MG TABLET GT SCH (08:34)
[2019-08-15] MEDS: Z GUARD REMEDY PASTE 57 GM TUBE TOP SCH ×2 (08:34→21:00)
[2019-08-15] MEDS: TRIAMCINOLONE ACET 0.1% CREAM 15 GM TUBE TP SCH ×2 (08:34→21:00)
[2019-08-15] MEDS: HYDROGEN PEROXIDE 3% 118 ML BOTTLE TP SCH ×2 (09:00→21:15)
[2019-08-15 09:52] VITALS: BP 135/83
[2019-08-15 20:49] VITALS: BP 132/82
[2019-08-15] MEDS: ASCORBIC ACID 500 MG TABLET GT SCH (21:00)
[2019-08-15] MEDS: ACETAMINOPHEN 650 MG/20 ML UDC- SA PATIENTS-PAIN ONLY GT PRN (22:00)
[2019-08-16] MEDS: GLUCERNA 1.2 1000ML LIQUID GT PRN (01:22)
[2019-08-16] MEDS: OMEPRAZOLE 20 MG CAPSULE.DR GT SCH (05:41)
[2019-08-16] MEDS: MULTIVIT, IRON, MIN NO. 8, FA TABLET GT SCH (05:41)
[2019-08-16] MEDS: HYDROGEN PEROXIDE 3% 118 ML BOTTLE TP SCH ×2 (08:28→18:49)
[2019-08-16] MEDS: ACIDOPHILUS/BULGARICUS CHEW TAB GT SCH ×2 (09:08→20:48)
[2019-08-16] MEDS: BACLOFEN 20 MG TABLET GT SCH ×4 (09:09→20:48)
[2019-08-16] MEDS: Z GUARD REMEDY PASTE 57 GM TUBE TOP SCH ×2 (09:10→20:49)
[2019-08-16] MEDS: SIMETHICONE 80 MG TAB.CHEW GT SCH ×3 (09:10→17:19)
[2019-08-16] MEDS: SERTRALINE HCL 50 MG TABLET GT SCH (09:10)
[2019-08-16] MEDS: TRIAMCINOLONE ACET 0.1% CREAM 15 GM TUBE TP SCH ×2 (09:10→20:49)
[2019-08-16] MEDS: METOPROLOL TARTRATE 50 MG TABLET GT SCH ×2 (09:10→20:48)
[2019-08-16 11:43] VITALS: BP 135/80
[2019-08-16] MEDS: ASCORBIC ACID 500 MG TABLET GT SCH (20:49)
[2019-08-16 20:57] VITALS: BP 127/88
[2019-08-17] MEDS: OMEPRAZOLE 20 MG CAPSULE.DR GT SCH (05:43)
[2019-08-17 08:30] VITALS: BP 121/80
[2019-08-17] MEDS: ACIDOPHILUS/BULGARICUS CHEW TAB GT SCH ×2 (08:43→20:10)
[2019-08-17] MEDS: BACLOFEN 20 MG TABLET GT SCH ×4 (08:43→20:10)
[2019-08-17] MEDS: Z GUARD REMEDY PASTE 57 GM TUBE TOP SCH ×2 (08:44→20:24)
[2019-08-17] MEDS: METOPROLOL TARTRATE 50 MG TABLET GT SCH ×2 (08:44→20:23)
[2019-08-17] MEDS: SIMETHICONE 80 MG TAB.CHEW GT SCH ×3 (08:44→16:20)
[2019-08-17] MEDS: SERTRALINE HCL 50 MG TABLET GT SCH (08:44)
[2019-08-17] MEDS: TRIAMCINOLONE ACET 0.1% CREAM 15 GM TUBE TP SCH ×2 (08:44→20:24)
[2019-08-17] MEDS: HYDROGEN PEROXIDE 3% 118 ML BOTTLE TP SCH ×2 (09:00→21:51)
[2019-08-17] MEDS: ASCORBIC ACID 500 MG TABLET GT SCH (20:23)
[2019-08-17 21:09] VITALS: BP 150/90
[2019-08-18] MEDS: GLUCERNA 1.2 1000ML LIQUID GT PRN (00:58)
[2019-08-18] MEDS: OMEPRAZOLE 20 MG CAPSULE.DR GT SCH (05:38)
[2019-08-18] MEDS: MULTIVIT, IRON, MIN NO. 8, FA TABLET GT SCH (05:38)
[2019-08-18] MEDS: SIMETHICONE 80 MG TAB.CHEW GT SCH ×3 (08:28→17:23)
[2019-08-18] MEDS: ACIDOPHILUS/BULGARICUS CHEW TAB GT SCH ×2 (08:28→21:05)
[2019-08-18] MEDS: BACLOFEN 20 MG TABLET GT SCH ×4 (08:28→21:05)
[2019-08-18] MEDS: METOPROLOL TARTRATE 50 MG TABLET GT SCH ×2 (08:28→21:06)
[2019-08-18] MEDS: SERTRALINE HCL 50 MG TABLET GT SCH (08:29)
[2019-08-18] MEDS: Z GUARD REMEDY PASTE 57 GM TUBE TOP SCH ×2 (08:29→21:06)
[2019-08-18] MEDS: TRIAMCINOLONE ACET 0.1% CREAM 15 GM TUBE TP SCH ×2 (08:29→21:06)
[2019-08-18 08:30] VITALS: BP 127/83
[2019-08-18] MEDS: KETOCONAZOLE 2% SHAMPOO 120 ML BOTTLE TP SCH (08:30)
[2019-08-18] MEDS: HYDROGEN PEROXIDE 3% 118 ML BOTTLE TP SCH ×2 (09:00→21:29)
[2019-08-18] MEDS: ASCORBIC ACID 500 MG TABLET GT SCH (21:06)
[2019-08-18 21:29] VITALS: BP 138/89
[2019-08-19] MEDS: GLUCERNA 1.2 1000ML LIQUID GT PRN (02:40)
[2019-08-19] MEDS: OMEPRAZOLE 20 MG CAPSULE.DR GT SCH (05:07)
[2019-08-19] MEDS: HYDROGEN PEROXIDE 3% 118 ML BOTTLE TP SCH ×2 (08:15→18:59)
[2019-08-19] MEDS: ACIDOPHILUS/BULGARICUS CHEW TAB GT SCH ×2 (08:16→20:43)
[2019-08-19] MEDS: BACLOFEN 20 MG TABLET GT SCH ×4 (08:16→20:43)
[2019-08-19] MEDS: METOPROLOL TARTRATE 50 MG TABLET GT SCH ×2 (08:17→20:44)
[2019-08-19] MEDS: Z GUARD REMEDY PASTE 57 GM TUBE TOP SCH ×2 (08:18→20:44)
[2019-08-19] MEDS: TRIAMCINOLONE ACET 0.1% CREAM 15 GM TUBE TP SCH ×2 (08:18→20:44)
[2019-08-19] MEDS: SIMETHICONE 80 MG TAB.CHEW GT SCH ×3 (08:18→17:45)
[2019-08-19] MEDS: SERTRALINE HCL 50 MG TABLET GT SCH (08:18)
[2019-08-19 11:34] VITALS: BP 103/61
[2019-08-19] MEDS: ASCORBIC ACID 500 MG TABLET GT SCH (20:44)
[2019-08-19 20:46] VITALS: BP 140/80
[2019-08-20] MEDS: GLUCERNA 1.2 1000ML LIQUID GT PRN (01:45)
[2019-08-20] MEDS: OMEPRAZOLE 20 MG CAPSULE.DR GT SCH (06:03)
[2019-08-20] MEDS: MULTIVIT, IRON, MIN NO. 8, FA TABLET GT SCH (06:03)
[2019-08-20 08:06] VITALS: BP 123/74
[2019-08-20] MEDS: ACIDOPHILUS/BULGARICUS CHEW TAB GT SCH ×2 (08:14→20:53)
[2019-08-20] MEDS: Z GUARD REMEDY PASTE 57 GM TUBE TOP SCH ×2 (08:14→20:54)
[2019-08-20] MEDS: TRIAMCINOLONE ACET 0.1% CREAM 15 GM TUBE TP SCH ×2 (08:14→20:55)
[2019-08-20] MEDS: METOPROLOL TARTRATE 50 MG TABLET GT SCH ×2 (08:14→20:54)
[2019-08-20] MEDS: SIMETHICONE 80 MG TAB.CHEW GT SCH ×3 (08:14→17:53)
[2019-08-20] MEDS: SERTRALINE HCL 50 MG TABLET GT SCH (08:14)
[2019-08-20] MEDS: BACLOFEN 20 MG TABLET GT SCH ×4 (08:14→20:53)
[2019-08-20] MEDS: HYDROGEN PEROXIDE 3% 118 ML BOTTLE TP SCH ×2 (09:41→21:09)
--- NOTE | 2019-08-20 14:00 | NUR ---
Laboratory Secretary care done by Dr Jaffe.
--- NOTE | 2019-08-20 15:09 | NUR ---
This SW called patient's brother Frank [phone] and informed him that per advisement from [facility], [facility], and CDC, visitation restrictions must continue to remain in place for all ferry terminal supervisor care facilities in order to protect the health and safety of residents and staff. Therefore, [facility] will continue to restrict all visitations, until further notice. Frank expressed understanding and thanked this SW and the staff for all their efforts in keeping the patients safe.
--- NOTE | 2019-08-20 18:14 | NUR ---
Seen and examined by Dr St with no new orders.
[2019-08-20 20:00] VITALS: BP 124/88
[2019-08-20] MEDS: ASCORBIC ACID 500 MG TABLET GT SCH (20:54)
[2019-08-21] MEDS: OMEPRAZOLE 20 MG CAPSULE.DR GT SCH (05:42)
[2019-08-21] MEDS: HYDROGEN PEROXIDE 3% 118 ML BOTTLE TP SCH ×2 (09:17→21:48)
[2019-08-21] MEDS: KETOCONAZOLE 2% SHAMPOO 120 ML BOTTLE TP SCH (09:49)
[2019-08-21] MEDS: Z GUARD REMEDY PASTE 57 GM TUBE TOP SCH ×2 (09:49→20:57)
[2019-08-21] MEDS: BACLOFEN 20 MG TABLET GT SCH ×4 (09:49→20:56)
[2019-08-21] MEDS: METOPROLOL TARTRATE 50 MG TABLET GT SCH ×2 (09:49→20:56)
[2019-08-21] MEDS: ACIDOPHILUS/BULGARICUS CHEW TAB GT SCH ×2 (09:49→20:56)
[2019-08-21] MEDS: SERTRALINE HCL 50 MG TABLET GT SCH (09:49)
[2019-08-21] MEDS: TRIAMCINOLONE ACET 0.1% CREAM 15 GM TUBE TP SCH ×2 (09:49→20:57)
[2019-08-21] MEDS: SIMETHICONE 80 MG TAB.CHEW GT SCH ×3 (09:49→17:32)
[2019-08-21 10:37] VITALS: BP 115/73
[2019-08-21 20:00] VITALS: BP 123/81
[2019-08-21] MEDS: ASCORBIC ACID 500 MG TABLET GT SCH (20:57)
[2019-08-22] MEDS: GLUCERNA 1.2 1000ML LIQUID GT PRN (00:40)
[2019-08-22] MEDS: OMEPRAZOLE 20 MG CAPSULE.DR GT SCH (05:38)
[2019-08-22] MEDS: MULTIVIT, IRON, MIN NO. 8, FA TABLET GT SCH (05:38)
[2019-08-22] MEDS: Z GUARD REMEDY PASTE 57 GM TUBE TOP SCH ×2 (08:26→20:23)
[2019-08-22] MEDS: ACIDOPHILUS/BULGARICUS CHEW TAB GT SCH ×2 (08:26→20:22)
[2019-08-22] MEDS: SERTRALINE HCL 50 MG TABLET GT SCH (08:26)
[2019-08-22] MEDS: METOPROLOL TARTRATE 50 MG TABLET GT SCH ×2 (08:26→20:23)
[2019-08-22] MEDS: BACLOFEN 20 MG TABLET GT SCH ×4 (08:26→20:22)
[2019-08-22] MEDS: SIMETHICONE 80 MG TAB.CHEW GT SCH ×3 (08:26→17:48)
[2019-08-22] MEDS: TRIAMCINOLONE ACET 0.1% CREAM 15 GM TUBE TP SCH ×2 (08:27→20:24)
[2019-08-22] MEDS: HYDROGEN PEROXIDE 3% 118 ML BOTTLE TP SCH ×2 (09:14→21:00)
[2019-08-22 10:35] VITALS: BP 113/73
[2019-08-22 20:00] VITALS: BP 119/83
[2019-08-22] MEDS: ASCORBIC ACID 500 MG TABLET GT SCH (20:23)
[2019-08-23] MEDS: GLUCERNA 1.2 1000ML LIQUID GT PRN (00:23)
[2019-08-23] MEDS: OMEPRAZOLE 20 MG CAPSULE.DR GT SCH (05:08)
[2019-08-23] MEDS: HYDROGEN PEROXIDE 3% 118 ML BOTTLE TP SCH ×2 (08:26→21:32)
[2019-08-23] MEDS: BACLOFEN 20 MG TABLET GT SCH ×4 (08:39→20:57)
[2019-08-23] MEDS: ACIDOPHILUS/BULGARICUS CHEW TAB GT SCH ×2 (08:39→20:57)
[2019-08-23] MEDS: METOPROLOL TARTRATE 50 MG TABLET GT SCH ×2 (08:40→20:57)
[2019-08-23] MEDS: SERTRALINE HCL 50 MG TABLET GT SCH (08:40)
[2019-08-23] MEDS: TRIAMCINOLONE ACET 0.1% CREAM 15 GM TUBE TP SCH ×2 (08:40→21:01)
[2019-08-23] MEDS: Z GUARD REMEDY PASTE 57 GM TUBE TOP SCH ×2 (08:40→21:00)
[2019-08-23] MEDS: SIMETHICONE 80 MG TAB.CHEW GT SCH ×3 (08:40→17:50)
[2019-08-23 11:27] VITALS: BP 114/98
[2019-08-23 20:47] VITALS: BP 130/79
[2019-08-23] MEDS: ASCORBIC ACID 500 MG TABLET GT SCH (21:00)
[2019-08-24] MEDS: GLUCERNA 1.2 1000ML LIQUID GT PRN (00:56)
[2019-08-24] MEDS: MULTIVIT, IRON, MIN NO. 8, FA TABLET GT SCH (05:45)
[2019-08-24] MEDS: OMEPRAZOLE 20 MG CAPSULE.DR GT SCH (05:45)
[2019-08-24 08:00] VITALS: BP 120/94
[2019-08-24] MEDS: SERTRALINE HCL 50 MG TABLET GT SCH (09:12)
[2019-08-24] MEDS: BACLOFEN 20 MG TABLET GT SCH ×4 (09:12→21:39)
[2019-08-24] MEDS: SIMETHICONE 80 MG TAB.CHEW GT SCH ×3 (09:12→17:48)
[2019-08-24] MEDS: METOPROLOL TARTRATE 50 MG TABLET GT SCH ×2 (09:12→21:39)
[2019-08-24] MEDS: Z GUARD REMEDY PASTE 57 GM TUBE TOP SCH ×2 (09:12→21:40)
[2019-08-24] MEDS: ACIDOPHILUS/BULGARICUS CHEW TAB GT SCH ×2 (09:12→21:37)
[2019-08-24] MEDS: TRIAMCINOLONE ACET 0.1% CREAM 15 GM TUBE TP SCH ×2 (09:13→21:40)
[2019-08-24] MEDS: HYDROGEN PEROXIDE 3% 118 ML BOTTLE TP SCH ×2 (09:25→21:46)
[2019-08-24 21:13] VITALS: BP 138/90
[2019-08-24] MEDS: ASCORBIC ACID 500 MG TABLET GT SCH (21:40)
[2019-08-25] MEDS: GLUCERNA 1.2 1000ML LIQUID GT PRN (01:21)
[2019-08-25] MEDS: OMEPRAZOLE 20 MG CAPSULE.DR GT SCH (05:32)
[2019-08-25 08:00] VITALS: BP 130/82
--- NOTE | 2019-08-25 08:00 | NUR ---
SEEN BY GLENN Bolaños AND WITH NNO.
[2019-08-25] MEDS: HYDROGEN PEROXIDE 3% 118 ML BOTTLE TP SCH ×2 (09:07→20:48)
[2019-08-25] MEDS: ACIDOPHILUS/BULGARICUS CHEW TAB GT SCH ×2 (09:35→20:46)
[2019-08-25] MEDS: BACLOFEN 20 MG TABLET GT SCH ×4 (09:35→20:46)
[2019-08-25] MEDS: SIMETHICONE 80 MG TAB.CHEW GT SCH ×3 (09:35→17:00)
[2019-08-25] MEDS: Z GUARD REMEDY PASTE 57 GM TUBE TOP SCH ×2 (09:36→20:48)
[2019-08-25] MEDS: METOPROLOL TARTRATE 50 MG TABLET GT SCH ×2 (09:36→20:47)
[2019-08-25] MEDS: TRIAMCINOLONE ACET 0.1% CREAM 15 GM TUBE TP SCH ×2 (09:36→20:48)
[2019-08-25] MEDS: SERTRALINE HCL 50 MG TABLET GT SCH (09:36)
[2019-08-25] MEDS: KETOCONAZOLE 2% SHAMPOO 120 ML BOTTLE TP SCH (09:37)
--- NOTE | 2019-08-25 10:23 | NUR ---
SEEN AND ASSESSED BY DR. IBRAHIM AND WITH NNO.
[2019-08-25] MEDS: ASCORBIC ACID 500 MG TABLET GT SCH (20:48)
[2019-08-25 22:04] VITALS: BP 124/84
[2019-08-26] MEDS: GLUCERNA 1.2 1000ML LIQUID GT PRN (01:37)
[2019-08-26] MEDS: MULTIVIT, IRON, MIN NO. 8, FA TABLET GT SCH (04:10)
[2019-08-26] MEDS: OMEPRAZOLE 20 MG CAPSULE.DR GT SCH (04:10)
[2019-08-26 08:00] VITALS: BP 129/86
[2019-08-26] MEDS: ACIDOPHILUS/BULGARICUS CHEW TAB GT SCH ×2 (09:00→21:19)
[2019-08-26] MEDS: SIMETHICONE 80 MG TAB.CHEW GT SCH ×3 (09:00→17:37)
[2019-08-26] MEDS: TRIAMCINOLONE ACET 0.1% CREAM 15 GM TUBE TP SCH ×2 (09:00→21:29)
[2019-08-26] MEDS: METOPROLOL TARTRATE 50 MG TABLET GT SCH ×2 (09:00→21:21)
[2019-08-26] MEDS: BACLOFEN 20 MG TABLET GT SCH ×4 (09:00→21:19)
[2019-08-26] MEDS: SERTRALINE HCL 50 MG TABLET GT SCH (09:00)
[2019-08-26] MEDS: Z GUARD REMEDY PASTE 57 GM TUBE TOP SCH ×2 (09:00→21:21)
[2019-08-26] MEDS: HYDROGEN PEROXIDE 3% 118 ML BOTTLE TP SCH ×2 (09:40→20:54)
[2019-08-26] MEDS: ASCORBIC ACID 500 MG TABLET GT SCH (21:21)
[2019-08-26 21:28] VITALS: BP 121/73
[2019-08-27] MEDS: GLUCERNA 1.2 1000ML LIQUID GT PRN (04:53)
[2019-08-27] MEDS: OMEPRAZOLE 20 MG CAPSULE.DR GT SCH (06:09)
[2019-08-27 08:00] VITALS: BP 112/73
[2019-08-27] MEDS: TRIAMCINOLONE ACET 0.1% CREAM 15 GM TUBE TP SCH ×2 (09:00→21:14)
[2019-08-27] MEDS: HYDROGEN PEROXIDE 3% 118 ML BOTTLE TP SCH ×2 (09:00→21:20)
[2019-08-27] MEDS: ACIDOPHILUS/BULGARICUS CHEW TAB GT SCH ×2 (09:05→21:11)
[2019-08-27] MEDS: BACLOFEN 20 MG TABLET GT SCH ×4 (09:06→21:11)
[2019-08-27] MEDS: METOPROLOL TARTRATE 50 MG TABLET GT SCH ×2 (09:07→21:13)
[2019-08-27] MEDS: SERTRALINE HCL 50 MG TABLET GT SCH (09:08)
[2019-08-27] MEDS: SIMETHICONE 80 MG TAB.CHEW GT SCH ×3 (09:08→17:16)
[2019-08-27] MEDS: Z GUARD REMEDY PASTE 57 GM TUBE TOP SCH ×2 (09:08→21:14)
[2019-08-27 20:00] VITALS: BP 122/75
[2019-08-27] MEDS: ASCORBIC ACID 500 MG TABLET GT SCH (21:13)
[2019-08-28] MEDS: GLUCERNA 1.2 1000ML LIQUID GT PRN (04:38)
[2019-08-28] MEDS: OMEPRAZOLE 20 MG CAPSULE.DR GT SCH (05:58)
[2019-08-28] MEDS: MULTIVIT, IRON, MIN NO. 8, FA TABLET GT SCH (05:58)
[2019-08-28 08:30] VITALS: BP 149/86
[2019-08-28] MEDS: ACIDOPHILUS/BULGARICUS CHEW TAB GT SCH ×2 (09:02→21:18)
[2019-08-28] MEDS: BACLOFEN 20 MG TABLET GT SCH ×4 (09:02→21:18)
[2019-08-28] MEDS: METOPROLOL TARTRATE 50 MG TABLET GT SCH ×2 (09:03→21:22)
[2019-08-28] MEDS: Z GUARD REMEDY PASTE 57 GM TUBE TOP SCH ×2 (09:04→21:22)
[2019-08-28] MEDS: SIMETHICONE 80 MG TAB.CHEW GT SCH ×3 (09:04→17:08)
[2019-08-28] MEDS: SERTRALINE HCL 50 MG TABLET GT SCH (09:04)
[2019-08-28] MEDS: HYDROGEN PEROXIDE 3% 118 ML BOTTLE TP SCH ×2 (09:10→20:36)
[2019-08-28] MEDS: KETOCONAZOLE 2% SHAMPOO 120 ML BOTTLE TP SCH (09:30)
[2019-08-28] MEDS: TRIAMCINOLONE ACET 0.1% CREAM 15 GM TUBE TP SCH ×2 (09:30→21:22)
[2019-08-28 20:16] VITALS: BP 140/87
[2019-08-28] MEDS: ASCORBIC ACID 500 MG TABLET GT SCH (21:22)
[2019-08-29] MEDS: OMEPRAZOLE 20 MG CAPSULE.DR GT SCH (06:18)
[2019-08-29 08:30] VITALS: BP 130/85
[2019-08-29] MEDS: HYDROGEN PEROXIDE 3% 118 ML BOTTLE TP SCH ×2 (09:34→21:30)
[2019-08-29] MEDS: ACIDOPHILUS/BULGARICUS CHEW TAB GT SCH ×2 (09:37→20:36)
[2019-08-29] MEDS: BACLOFEN 20 MG TABLET GT SCH ×4 (09:38→20:36)
[2019-08-29] MEDS: SERTRALINE HCL 50 MG TABLET GT SCH (09:39)
[2019-08-29] MEDS: METOPROLOL TARTRATE 50 MG TABLET GT SCH ×2 (09:39→20:36)
[2019-08-29] MEDS: SIMETHICONE 80 MG TAB.CHEW GT SCH ×3 (09:39→18:00)
[2019-08-29] MEDS: Z GUARD REMEDY PASTE 57 GM TUBE TOP SCH ×2 (09:40→20:36)
[2019-08-29] MEDS: TRIAMCINOLONE ACET 0.1% CREAM 15 GM TUBE TP SCH ×2 (09:40→20:36)
[2019-08-29] MEDS: GLUCERNA 1.2 1000ML LIQUID GT PRN (09:41)
[2019-08-29] MEDS: ACETAMINOPHEN 650 MG/20 ML UDC- SA PATIENTS-PAIN ONLY GT PRN (13:19)
[2019-08-29 20:32] VITALS: BP 141/95
[2019-08-29] MEDS: ASCORBIC ACID 500 MG TABLET GT SCH (20:36)
[2019-08-30] MEDS: MULTIVIT, IRON, MIN NO. 8, FA TABLET GT SCH (05:49)
[2019-08-30] MEDS: OMEPRAZOLE 20 MG CAPSULE.DR GT SCH (05:49)
[2019-08-30] MEDS: HYDROGEN PEROXIDE 3% 118 ML BOTTLE TP SCH ×2 (08:22→20:33)
[2019-08-30] MEDS: BACLOFEN 20 MG TABLET GT SCH ×4 (08:45→20:27)
[2019-08-30] MEDS: ACIDOPHILUS/BULGARICUS CHEW TAB GT SCH ×2 (08:45→20:27)
[2019-08-30] MEDS: TRIAMCINOLONE ACET 0.1% CREAM 15 GM TUBE TP SCH ×2 (08:47→20:28)
[2019-08-30] MEDS: GLUCERNA 1.2 1000ML LIQUID GT PRN (08:47)
[2019-08-30] MEDS: SIMETHICONE 80 MG TAB.CHEW GT SCH ×3 (08:47→17:15)
[2019-08-30] MEDS: SERTRALINE HCL 50 MG TABLET GT SCH (08:47)
[2019-08-30] MEDS: METOPROLOL TARTRATE 50 MG TABLET GT SCH ×2 (08:47→20:28)
[2019-08-30] MEDS: Z GUARD REMEDY PASTE 57 GM TUBE TOP SCH ×2 (08:47→20:28)
[2019-08-30 20:07] VITALS: BP 126/79
[2019-08-30] MEDS: ASCORBIC ACID 500 MG TABLET GT SCH (20:28)
[2019-08-31] MEDS: OMEPRAZOLE 20 MG CAPSULE.DR GT SCH (05:36)
[2019-08-31] MEDS: HYDROGEN PEROXIDE 3% 118 ML BOTTLE TP SCH ×2 (07:25→21:04)
[2019-08-31 08:09] VITALS: BP 141/88
[2019-08-31] MEDS: ACIDOPHILUS/BULGARICUS CHEW TAB GT SCH ×2 (08:31→20:27)
[2019-08-31] MEDS: BACLOFEN 20 MG TABLET GT SCH ×4 (08:31→20:27)
[2019-08-31] MEDS: METOPROLOL TARTRATE 50 MG TABLET GT SCH ×2 (08:33→20:27)
[2019-08-31] MEDS: SIMETHICONE 80 MG TAB.CHEW GT SCH ×3 (08:33→16:40)
[2019-08-31] MEDS: SERTRALINE HCL 50 MG TABLET GT SCH (08:34)
[2019-08-31] MEDS: Z GUARD REMEDY PASTE 57 GM TUBE TOP SCH ×3 (08:34→20:27)
[2019-08-31] MEDS: TRIAMCINOLONE ACET 0.1% CREAM 15 GM TUBE TP SCH ×2 (08:34→20:28)
[2019-08-31] MEDS: ASCORBIC ACID 500 MG TABLET GT SCH (20:27)
[2019-08-31 20:42] VITALS: BP 135/88
[2019-08-31] MEDS: GLUCERNA 1.2 1000ML LIQUID GT PRN (22:49)
[2019-09-01] MEDS: OMEPRAZOLE 20 MG CAPSULE.DR GT SCH (05:40)
[2019-09-01] MEDS: MULTIVIT, IRON, MIN NO. 8, FA TABLET GT SCH (05:40)
[2019-09-01] MEDS: BACLOFEN 20 MG TABLET GT SCH ×4 (08:09→21:13)
[2019-09-01] MEDS: ACIDOPHILUS/BULGARICUS CHEW TAB GT SCH ×2 (08:09→21:13)
[2019-09-01] MEDS: Z GUARD REMEDY PASTE 57 GM TUBE TOP SCH ×4 (08:10→21:15)
[2019-09-01] MEDS: METOPROLOL TARTRATE 50 MG TABLET GT SCH ×2 (08:10→21:14)
[2019-09-01] MEDS: SIMETHICONE 80 MG TAB.CHEW GT SCH ×3 (08:10→17:29)
[2019-09-01] MEDS: SERTRALINE HCL 50 MG TABLET GT SCH (08:10)
[2019-09-01] MEDS: TRIAMCINOLONE ACET 0.1% CREAM 15 GM TUBE TP SCH ×2 (08:11→21:15)
[2019-09-01] MEDS: KETOCONAZOLE 2% SHAMPOO 120 ML BOTTLE TP SCH (08:11)
[2019-09-01] MEDS: HYDROGEN PEROXIDE 3% 118 ML BOTTLE TP SCH ×2 (08:17→21:15)
[2019-09-01] MEDS: BISACODYL 10 MG SUPP.RECT RC PRN (09:00)
[2019-09-01 10:36] VITALS: BP 120/55
[2019-09-01 10:52] VITALS: BP 130/80
[2019-09-01 20:14] VITALS: BP 125/86
[2019-09-01] MEDS: ASCORBIC ACID 500 MG TABLET GT SCH (21:14)
[2019-09-01] MEDS: GLUCERNA 1.2 1000ML LIQUID GT PRN (22:06)
[2019-09-02] MEDS: OMEPRAZOLE 20 MG CAPSULE.DR GT SCH (05:33)
[2019-09-02 07:14] LABS: BASOPHILS % (AUTO) 0.5 % (0.0-2.0); EOSINOPHILS # (AUTO) 0.2 K/uL (0.0-0.7); EOSINOPHILS % (AUTO) 2.1 % (0.0-7.0); HEMATOCRIT 39.5 % (31.2-41.9); HEMOGLOBIN 12.3 g/dL (10.9-14.3); LYMPHOCYTES # (AUTO) 2.3 K/uL (20.0-40.0); LYMPHOCYTES % (AUTO) 30.1 % (20.5-51.5); MEAN CORPUSCULAR HEMOGLOBIN 22.2 uug (24.7-32.8); MEAN CORPUSCULAR HGB CONC 31 g/dL (32.3-35.6); MEAN CORPUSCULAR VOLUME 71.3 fL (75.5-95.3); MONOCYTES % (AUTO) 13.1 % (0.0-11.0); NEUTROPHILS # (AUTO) 4.1 K/uL (1.8-8.9); NEUTROPHILS % (AUTO) 54.2 % (38.5-71.5); PLATELET COUNT (AUTO) 281 K/uL (179-408); RED BLOOD CELL COUNT(AUTO) 5.54 MIL/uL (3.63-4.92); WHITE BLOOD COUNT (AUTO) 7.6 K/uL (3.8-11.8)
[2019-09-02 07:32] LABS: BILIRUBIN,TOTAL 0.4 mg/dL (0.2-1.0); CREATININE 0.7 mg/dL (0.6-1.3); POTASSIUM 3.9 mmol/L (3.5-5.1); TOTAL PROTEIN, SERUM 8.1 g/dL (6.4-8.2)
[2019-09-02 08:00] VITALS: BP 129/90
[2019-09-02 08:31] LABS: BAND % (MANUAL) 2 % (0-10); LYMPHOCYTES % (MANUAL) 41 % (20-40); NEUTROPHILS % (MANUAL) 46 % (42-75)
[2019-09-02 08:32] LABS: EOSINOPHILS % (MANUAL) 4 % (0-8); MONOCYTES % (MANUAL) 7 % (2-10)
[2019-09-02] MEDS: HYDROGEN PEROXIDE 3% 118 ML BOTTLE TP SCH ×2 (08:33→20:51)
[2019-09-02] MEDS: BACLOFEN 20 MG TABLET GT SCH ×4 (08:47→21:23)
[2019-09-02] MEDS: ACIDOPHILUS/BULGARICUS CHEW TAB GT SCH ×2 (08:47→21:22)
[2019-09-02] MEDS: TRIAMCINOLONE ACET 0.1% CREAM 15 GM TUBE TP SCH ×2 (08:48→21:24)
[2019-09-02] MEDS: METOPROLOL TARTRATE 50 MG TABLET GT SCH ×2 (08:48→21:24)
[2019-09-02] MEDS: SERTRALINE HCL 50 MG TABLET GT SCH (08:48)
[2019-09-02] MEDS: Z GUARD REMEDY PASTE 57 GM TUBE TOP SCH ×4 (08:48→21:24)
[2019-09-02] MEDS: SIMETHICONE 80 MG TAB.CHEW GT SCH ×3 (08:48→17:21)
--- NOTE | 2019-09-02 12:00 | NUR ---
Seen and examined by Dalia CARMICHAEL ,aware pt has rectal bleeding,no new orders noted.Will observe her.
[2019-09-02 20:13] VITALS: BP 116/67
[2019-09-02] MEDS: ASCORBIC ACID 500 MG TABLET GT SCH (21:24)
[2019-09-03] MEDS: GLUCERNA 1.2 1000ML LIQUID GT PRN
[2019-09-03] MEDS: MULTIVIT, IRON, MIN NO. 8, FA TABLET GT SCH (06:02)
[2019-09-03] MEDS: OMEPRAZOLE 20 MG CAPSULE.DR GT SCH (06:02)
[2019-09-03] MEDS: BACLOFEN 20 MG TABLET GT SCH ×4 (08:07→21:07)
[2019-09-03] MEDS: ACIDOPHILUS/BULGARICUS CHEW TAB GT SCH ×2 (08:07→21:07)
[2019-09-03] MEDS: METOPROLOL TARTRATE 50 MG TABLET GT SCH ×2 (08:08→21:08)
[2019-09-03] MEDS: SIMETHICONE 80 MG TAB.CHEW GT SCH ×3 (08:08→16:59)
[2019-09-03] MEDS: SERTRALINE HCL 50 MG TABLET GT SCH (08:08)
[2019-09-03] MEDS: Z GUARD REMEDY PASTE 57 GM TUBE TOP SCH ×4 (08:09→21:09)
[2019-09-03] MEDS: TRIAMCINOLONE ACET 0.1% CREAM 15 GM TUBE TP SCH ×2 (08:09→21:09)
[2019-09-03 08:30] VITALS: BP 124/79
[2019-09-03] MEDS: HYDROGEN PEROXIDE 3% 118 ML BOTTLE TP SCH ×2 (09:00→21:00)
--- NOTE | 2019-09-03 10:00 | NUR ---
Seen and examined by Dr St,aware pt has rectal bleeding with new orders noted for GI consult.will continue monitor.
--- NOTE | 2019-09-03 15:06 | NUR ---
Dr Marino aware pt has rectal bleeding ,and Dr St request a GI consult new orders noted.
[2019-09-03 16:01] LABS: BASOPHILS # (AUTO) 0.1 K/uL (0.0-8.0); BASOPHILS % (AUTO) 1.1 % (0.0-2.0); EOSINOPHILS # (AUTO) 0.1 K/uL (0.0-0.7); EOSINOPHILS % (AUTO) 1.5 % (0.0-7.0); HEMOGLOBIN 12.3 g/dL (10.9-14.3); LYMPHOCYTES # (AUTO) 3.1 K/uL (20.0-40.0); LYMPHOCYTES % (AUTO) 33.5 % (20.5-51.5); MEAN CORPUSCULAR HEMOGLOBIN 22.7 uug (24.7-32.8); MEAN CORPUSCULAR HGB CONC 32 g/dL (32.3-35.6); MEAN CORPUSCULAR VOLUME 70.3 fL (75.5-95.3); MONOCYTES # (AUTO) 0.8 K/uL (2.0-10.0); MONOCYTES % (AUTO) 9.1 % (0.0-11.0); NEUTROPHILS % (AUTO) 54.8 % (38.5-71.5); PLATELET COUNT (AUTO) 288 K/uL (179-408); WHITE BLOOD COUNT (AUTO) 9.2 K/uL (3.8-11.8)
[2019-09-03 20:14] VITALS: BP 131/85
[2019-09-03] MEDS: ASCORBIC ACID 500 MG TABLET GT SCH (21:08)
[2019-09-04] MEDS: GLUCERNA 1.2 1000ML LIQUID GT PRN (00:45)
--- NOTE | 2019-09-04 05:42 | NUR ---
small amount of bleeding with bowel movement.
[2019-09-04] MEDS: OMEPRAZOLE 20 MG CAPSULE.DR GT SCH (06:01)
[2019-09-04 06:15] LABS: BASOPHILS # (AUTO) 0.1 K/uL (0.0-8.0); BASOPHILS % (AUTO) 0.7 % (0.0-2.0); EOSINOPHILS # (AUTO) 0.2 K/uL (0.0-0.7); EOSINOPHILS % (AUTO) 2.9 % (0.0-7.0); HEMATOCRIT 34.6 % (31.2-41.9); HEMOGLOBIN 10.9 g/dL (10.9-14.3); LYMPHOCYTES # (AUTO) 2.3 K/uL (20.0-40.0); LYMPHOCYTES % (AUTO) 30.6 % (20.5-51.5); MEAN CORPUSCULAR HEMOGLOBIN 22.2 uug (24.7-32.8); MEAN CORPUSCULAR HGB CONC 31 g/dL (32.3-35.6); MEAN CORPUSCULAR VOLUME 70.6 fL (75.5-95.3); MONOCYTES # (AUTO) 0.8 K/uL (2.0-10.0); MONOCYTES % (AUTO) 10.1 % (0.0-11.0); NEUTROPHILS # (AUTO) 4.2 K/uL (1.8-8.9); NEUTROPHILS % (AUTO) 55.7 % (38.5-71.5); PLATELET COUNT (AUTO) 281 K/uL (179-408); WHITE BLOOD COUNT (AUTO) 7.6 K/uL (3.8-11.8)
[2019-09-04 07:42] LABS: NEUTROPHILS % (MANUAL) 63 % (42-75)
[2019-09-04 07:43] LABS: BAND % (MANUAL) 3 % (0-10); EOSINOPHILS % (MANUAL) 2 % (0-8); LYMPHOCYTES % (MANUAL) 20 % (20-40); MONOCYTES % (MANUAL) 12 % (2-10)
[2019-09-04] MEDS: ACIDOPHILUS/BULGARICUS CHEW TAB GT SCH ×2 (08:41→21:35)
[2019-09-04] MEDS: BACLOFEN 20 MG TABLET GT SCH ×4 (08:41→21:36)
[2019-09-04] MEDS: SIMETHICONE 80 MG TAB.CHEW GT SCH ×3 (08:42→16:19)
[2019-09-04] MEDS: SERTRALINE HCL 50 MG TABLET GT SCH (08:42)
[2019-09-04] MEDS: Z GUARD REMEDY PASTE 57 GM TUBE TOP SCH ×4 (08:42→21:37)
[2019-09-04] MEDS: TRIAMCINOLONE ACET 0.1% CREAM 15 GM TUBE TP SCH ×2 (08:42→21:37)
[2019-09-04] MEDS: METOPROLOL TARTRATE 50 MG TABLET GT SCH ×2 (08:42→21:37)
[2019-09-04] MEDS: KETOCONAZOLE 2% SHAMPOO 120 ML BOTTLE TP SCH (08:42)
[2019-09-04] MEDS: HYDROGEN PEROXIDE 3% 118 ML BOTTLE TP SCH ×2 (09:00→21:36)
[2019-09-04 11:08] VITALS: BP 132/74
--- NOTE | 2019-09-04 17:59 | NUR ---
CONTINUE TO MONITOR FOR RECTAL BLEED. NO EPISODE OF BLEEDING NOTED DURING THIS SHIFT.
--- NOTE | 2019-09-04 18:58 | NUR ---
SEEN AND EXAMINED BY DR. OGLESBY WITH NEW ORDERS NOTED AND CARRIED OUT.
[2019-09-04 20:00] VITALS: BP 134/76
[2019-09-04] MEDS: ASCORBIC ACID 500 MG TABLET GT SCH (21:37)
[2019-09-05] MEDS: GLUCERNA 1.2 1000ML LIQUID GT PRN (02:08)
[2019-09-05] MEDS: OMEPRAZOLE 20 MG CAPSULE.DR GT SCH (05:26)
[2019-09-05] MEDS: MULTIVIT, IRON, MIN NO. 8, FA TABLET GT SCH (05:52)
--- NOTE | 2019-09-05 06:44 | NUR ---
had medium soft stool with small amount of blood.
[2019-09-05 06:59] LABS: CREATININE 0.6 mg/dL (0.6-1.3); POTASSIUM 3.9 mmol/L (3.5-5.1)
[2019-09-05] MEDS: BACLOFEN 20 MG TABLET GT SCH ×4 (08:44→20:50)
[2019-09-05] MEDS: Z GUARD REMEDY PASTE 57 GM TUBE TOP SCH ×4 (08:44→20:52)
[2019-09-05] MEDS: SERTRALINE HCL 50 MG TABLET GT SCH (08:44)
[2019-09-05] MEDS: ACIDOPHILUS/BULGARICUS CHEW TAB GT SCH ×2 (08:44→20:49)
[2019-09-05] MEDS: METOPROLOL TARTRATE 50 MG TABLET GT SCH ×2 (08:44→20:50)
[2019-09-05] MEDS: SIMETHICONE 80 MG TAB.CHEW GT SCH ×3 (08:44→17:48)
[2019-09-05] MEDS: TRIAMCINOLONE ACET 0.1% CREAM 15 GM TUBE TP SCH ×2 (08:45→20:52)
[2019-09-05 09:47] LABS: RED BLOOD CELL COUNT(AUTO) 4.79 MIL/UL (4.2-5.4); WHITE BLOOD COUNT (AUTO) 6.9 K/UL (4.0-11.2)
[2019-09-05 09:48] LABS: HEMATOCRIT 33.4 % (37-47); HEMOGLOBIN 10.6 G/DL (12.0-16.0); MEAN CORPUSCULAR HEMOGLOBIN 22.2 UUG (27.0-31.0); MEAN CORPUSCULAR HGB CONC 32 g/dL (32.0-37.0); MEAN CORPUSCULAR VOLUME 69.7 FL (81.0-99.0); NEUTROPHILS % (AUTO) 60.4 % (38.5-71.5); PLATELET COUNT (AUTO) 249 K/UL (150-450)
[2019-09-05 09:49] LABS: BASOPHILS % (AUTO) 0.4 % (0.0-2.0); EOSINOPHILS # (AUTO) 0.2 K/uL (0.0-0.7); EOSINOPHILS % (AUTO) 2.7 % (0.0-7.0); LYMPHOCYTES % (AUTO) 28.2 % (20.5-51.5); MONOCYTES # (AUTO) 0.6 K/UL (0.1-1.30); MONOCYTES % (AUTO) 8.3 % (0.0-11.0); NEUTROPHILS # (AUTO) 4.2 K/UL (1.8-8.9)
[2019-09-05] MEDS: HYDROGEN PEROXIDE 3% 118 ML BOTTLE TP SCH ×2 (09:58→21:50)
[2019-09-05 10:02] LABS: BAND % (MANUAL) 1 % (0-10); LYMPHOCYTES % (MANUAL) 5 % (20-40); MONOCYTES % (MANUAL) 1 % (2-10); MYELOCYTES % 1 % (0-0); NEUTROPHILS % (MANUAL) 92 % (42-75)
[2019-09-05 11:31] VITALS: BP 132/74
[2019-09-05] MEDS: ASCORBIC ACID 500 MG TABLET GT SCH (20:50)
[2019-09-05 22:12] VITALS: BP 103/67
[2019-09-06] MEDS: GLUCERNA 1.2 1000ML LIQUID GT PRN ×2 (00:31→23:31)
[2019-09-06] MEDS: OMEPRAZOLE 20 MG CAPSULE.DR GT SCH (05:35)
[2019-09-06] MEDS: ACIDOPHILUS/BULGARICUS CHEW TAB GT SCH ×2 (08:12→20:34)
[2019-09-06] MEDS: BACLOFEN 20 MG TABLET GT SCH ×4 (08:12→20:34)
[2019-09-06] MEDS: TRIAMCINOLONE ACET 0.1% CREAM 15 GM TUBE TP SCH ×2 (08:13→20:34)
[2019-09-06] MEDS: METOPROLOL TARTRATE 50 MG TABLET GT SCH ×2 (08:13→20:34)
[2019-09-06] MEDS: Z GUARD REMEDY PASTE 57 GM TUBE TOP SCH ×4 (08:13→20:34)
[2019-09-06] MEDS: SERTRALINE HCL 50 MG TABLET GT SCH (08:13)
[2019-09-06] MEDS: SIMETHICONE 80 MG TAB.CHEW GT SCH ×3 (08:13→17:54)
[2019-09-06] MEDS: HYDROGEN PEROXIDE 3% 118 ML BOTTLE TP SCH ×2 (09:00→20:19)
[2019-09-06 10:53] VITALS: BP 123/73
[2019-09-06 20:10] VITALS: BP 123/68
[2019-09-06] MEDS: ASCORBIC ACID 500 MG TABLET GT SCH (20:34)
[2019-09-06] MEDS: ACETAMINOPHEN 650 MG/20 ML UDC- SA PATIENTS-PAIN ONLY GT PRN (23:31)
--- NOTE | 2019-09-07 00:59 | NUR ---
MODERATE AMOUNT OF SOFT STOOL WITH BLACK COLOR .NO S/S OF PAIN NO COFFEE GROUND.CONTINUE MONITOR FOR GI BLEED .
[2019-09-07] MEDS: MULTIVIT, IRON, MIN NO. 8, FA TABLET GT SCH (05:30)
[2019-09-07] MEDS: OMEPRAZOLE 20 MG CAPSULE.DR GT SCH (05:30)
[2019-09-07 08:00] VITALS: BP 120/88
[2019-09-07] MEDS: HYDROGEN PEROXIDE 3% 118 ML BOTTLE TP SCH ×2 (08:33→20:48)
[2019-09-07] MEDS: ACIDOPHILUS/BULGARICUS CHEW TAB GT SCH ×2 (08:49→20:49)
[2019-09-07] MEDS: BACLOFEN 20 MG TABLET GT SCH ×4 (08:49→20:50)
[2019-09-07] MEDS: SIMETHICONE 80 MG TAB.CHEW GT SCH ×3 (08:51→17:02)
[2019-09-07] MEDS: Z GUARD REMEDY PASTE 57 GM TUBE TOP SCH ×4 (08:51→20:51)
[2019-09-07] MEDS: METOPROLOL TARTRATE 50 MG TABLET GT SCH ×2 (08:51→20:50)
[2019-09-07] MEDS: SERTRALINE HCL 50 MG TABLET GT SCH (08:51)
[2019-09-07] MEDS: TRIAMCINOLONE ACET 0.1% CREAM 15 GM TUBE TP SCH ×2 (09:00→20:51)
[2019-09-07 20:11] VITALS: BP 125/85
[2019-09-07] MEDS: ASCORBIC ACID 500 MG TABLET GT SCH (20:51)
[2019-09-07] MEDS: GLUCERNA 1.2 1000ML LIQUID GT PRN (22:40)
[2019-09-08] MEDS: OMEPRAZOLE 20 MG CAPSULE.DR GT SCH (05:10)
--- NOTE | 2019-09-08 06:52 | NUR ---
Afebrile, no respiratory distress noted, gt feeding tolerating well, no residuals noted, no bowel movement the whole shift, kept clean and comfortable.
[2019-09-08 08:00] VITALS: BP 125/80
[2019-09-08] MEDS: BACLOFEN 20 MG TABLET GT SCH ×4 (09:05→21:25)
[2019-09-08] MEDS: ACIDOPHILUS/BULGARICUS CHEW TAB GT SCH ×2 (09:05→21:25)
[2019-09-08] MEDS: METOPROLOL TARTRATE 50 MG TABLET GT SCH ×2 (09:06→21:26)
[2019-09-08] MEDS: SERTRALINE HCL 50 MG TABLET GT SCH (09:07)
[2019-09-08] MEDS: TRIAMCINOLONE ACET 0.1% CREAM 15 GM TUBE TP SCH ×2 (09:07→21:26)
[2019-09-08] MEDS: SIMETHICONE 80 MG TAB.CHEW GT SCH ×3 (09:07→17:27)
[2019-09-08] MEDS: Z GUARD REMEDY PASTE 57 GM TUBE TOP SCH ×4 (09:07→21:26)
[2019-09-08] MEDS: KETOCONAZOLE 2% SHAMPOO 120 ML BOTTLE TP SCH (09:08)
[2019-09-08] MEDS: HYDROGEN PEROXIDE 3% 118 ML BOTTLE TP SCH ×2 (09:30→21:33)
--- NOTE | 2019-09-08 10:17 | NUR ---
SEEN AND EXAMINED BY DR. IBRAHIM WITH NEW ORDERS, NOTED AND CARRIED OUT.
[2019-09-08 11:17] LABS: BASOPHILS # (AUTO) 0.1 K/uL (0.0-8.0); BASOPHILS % (AUTO) 0.8 % (0.0-2.0); EOSINOPHILS # (AUTO) 0.2 K/uL (0.0-0.7); EOSINOPHILS % (AUTO) 2.3 % (0.0-7.0); HEMATOCRIT 35.5 % (31.2-41.9); HEMOGLOBIN 11.1 g/dL (10.9-14.3); LYMPHOCYTES # (AUTO) 2.4 K/uL (20.0-40.0); LYMPHOCYTES % (AUTO) 32.5 % (20.5-51.5); MEAN CORPUSCULAR HEMOGLOBIN 22.3 uug (24.7-32.8); MEAN CORPUSCULAR HGB CONC 31 g/dL (32.3-35.6); MEAN CORPUSCULAR VOLUME 71.2 fL (75.5-95.3); MONOCYTES # (AUTO) 0.8 K/uL (2.0-10.0); MONOCYTES % (AUTO) 10.8 % (0.0-11.0); NEUTROPHILS % (AUTO) 53.6 % (38.5-71.5); PLATELET COUNT (AUTO) 289 K/uL (179-408); RED BLOOD CELL COUNT(AUTO) 4.98 MIL/uL (3.63-4.92); WHITE BLOOD COUNT (AUTO) 7.4 K/uL (3.8-11.8)
[2019-09-08 12:05] LABS: BAND % (MANUAL) 1 % (0-10); EOSINOPHILS % (MANUAL) 2 % (0-8); LYMPHOCYTES % (MANUAL) 33 % (20-40); MONOCYTES % (MANUAL) 5 % (2-10); NEUTROPHILS % (MANUAL) 59 % (42-75)
--- NOTE | 2019-09-08 12:50 | NUR ---
PAGED DR HO, A GI CONSULT REGARDING PENDING GI CONSULT ORDER FOR POSSIBLE GI BLEEDING. NOTIFIED MD OF CURRENT S/S OF BLEEDING: DARK BROWN AND BLACK STOOLS. DR HO ORDERED TO OBTAIN CONSENT FOR EGD. NOTED AND CARRIED OUT.
--- NOTE | 2019-09-08 14:05 | NUR ---
TELEPHONE CONSENT FOR EGD GIVEN BY RESPONSIBLE GREEN PARTY, JESICA FOFANA, BROTHER OF PATIENT.
[2019-09-08] MEDS: GLUCERNA 1.2 1000ML LIQUID GT PRN (17:28)
[2019-09-08] MEDS: ASCORBIC ACID 500 MG TABLET GT SCH (21:26)
[2019-09-08] MEDS: ACETAMINOPHEN 650 MG/20 ML UDC- SA PATIENTS-PAIN ONLY GT PRN (21:27)
[2019-09-08 21:33] VITALS: BP 161/81
[2019-09-08 22:59] VITALS: BP 142/70
[2019-09-09] MEDS: OMEPRAZOLE 20 MG CAPSULE.DR GT SCH (05:48)
[2019-09-09] MEDS: MULTIVIT, IRON, MIN NO. 8, FA TABLET GT SCH (05:49)
--- NOTE | 2019-09-09 06:49 | NUR ---
Patient is afebrile, temperature is 98.6, no respiratory distress noted, no BM this shift, treatment done to anal excoriation, tuurned and repositioned patient, will continue monitor.
[2019-09-09 08:12] VITALS: BP 119/84
[2019-09-09] MEDS: ACIDOPHILUS/BULGARICUS CHEW TAB GT SCH ×2 (08:58→20:59)
[2019-09-09] MEDS: BACLOFEN 20 MG TABLET GT SCH ×4 (08:58→21:01)
[2019-09-09] MEDS: METOPROLOL TARTRATE 50 MG TABLET GT SCH ×2 (08:59→21:02)
[2019-09-09] MEDS: SERTRALINE HCL 50 MG TABLET GT SCH (09:00)
[2019-09-09] MEDS: TRIAMCINOLONE ACET 0.1% CREAM 15 GM TUBE TP SCH ×2 (09:00→21:02)
[2019-09-09] MEDS: Z GUARD REMEDY PASTE 57 GM TUBE TOP SCH ×4 (09:00→21:02)
[2019-09-09] MEDS: SIMETHICONE 80 MG TAB.CHEW GT SCH ×3 (09:00→16:03)
[2019-09-09] MEDS: HYDROGEN PEROXIDE 3% 118 ML BOTTLE TP SCH ×2 (09:03→21:00)
--- NOTE | 2019-09-09 14:26 | NUR ---
INTERDISCIPLINARY PLAN OF CARE CONFERENCE was held today. Patient's brother was unable to participate in the meeting. Dr. Heaton and the Interdisciplinary Team reviewed the current plan of care in detail. RN reported on patient's medical condition, current treatments, findings of recent labs, and pending GI procedure. See RN IDT conference notes. See also all other disciplines IDT notes and physician's progress notes for additional details.
[2019-09-09] MEDS: GLUCERNA 1.2 1000ML LIQUID GT PRN (14:58)
--- NOTE | 2019-09-09 15:41 | NUR ---
Pharmacy Update from Today's 09/09/19 IDT meeting VS: Temp 98.6 BP 119/84 HR 74 LABS: (from 09/08/19) Wbc 7.4 H/H 11.1/35.5 Plt 289 Na 137 K 3.9 Cl 104 CO2 26 BUN/SCr 16/0.6 BS 125 Ca 9.0 MEDICATION USE REVIEWED: > Pt is not on any anti-epileptic medications > Pt is on Zoloft 50mg daily for depression m/b episodes of crying; No GDR planned for pt d/t contraindication of persistent cry episodes and repeated failed GDRs in the past (see MD note). Patient had x12 episodes in Jun, pt's condition remains about baseline with occasional increases in episodes. Will continue to follow trend > Pt was on depo-provera [id number] for heavy menstruation, last given 03/30/19. Now d/c'd per gynocology as pt reaching menopause age and may no longer need. > PRN MED USAGE: (July) Tylenol 650mg for mild pain used x3 Tylenol for temp x0 Tylenol 1000mg mod pain x0 Bisacodyl x2 Rodriguez Flush enema x1 NEW ORDERS NOTED: > NA Patient was reviewed and discussed in detail with no medication issues noted per team. No further rx recommendations at this time as pt remains stable. Will continue to follow
[2019-09-09 20:00] VITALS: BP 131/91
[2019-09-09] MEDS: ASCORBIC ACID 500 MG TABLET GT SCH (21:02)
--- NOTE | 2019-09-10 06:12 | NUR ---
PT WILL HAS APPT FOR EGD (ESOPHAGOGASTRODUODENOSSCOPY)IN AM.PT WAS STARTED NPO AFTER MIDNIGHT.
[2019-09-10] MEDS: OMEPRAZOLE 20 MG CAPSULE.DR GT SCH (06:14)
[2019-09-10 08:00] VITALS: BP 106/60
--- NOTE | 2019-09-10 08:30 | NUR ---
Pt was Transfer to surgery for EGD ,accompanied by two surgery Rn's.
[2019-09-10] MEDS: METOPROLOL TARTRATE 50 MG TABLET GT SCH ×2 (09:00→21:08)
[2019-09-10] MEDS: HYDROGEN PEROXIDE 3% 118 ML BOTTLE TP SCH ×2 (09:00→21:49)
[2019-09-10] MEDS: Z GUARD REMEDY PASTE 57 GM TUBE TOP SCH ×4 (09:55→21:09)
[2019-09-10] MEDS: SIMETHICONE 80 MG TAB.CHEW GT SCH ×3 (09:55→17:00)
[2019-09-10] MEDS: SERTRALINE HCL 50 MG TABLET GT SCH (09:55)
[2019-09-10] MEDS: ACIDOPHILUS/BULGARICUS CHEW TAB GT SCH ×2 (09:55→21:08)
[2019-09-10] MEDS: TRIAMCINOLONE ACET 0.1% CREAM 15 GM TUBE TP SCH ×2 (09:55→21:09)
[2019-09-10] MEDS: BACLOFEN 20 MG TABLET GT SCH ×4 (09:55→21:08)
--- NOTE | 2019-09-10 10:00 | NUR ---
Patient came back from the EGD procedure, tolerated well, no distress noted, no skin issues noted, vitals taken, WNL, g-tube intact, positive placement, no residual noted, meds administered, tolerated well, continue to monitor for any complications.
[2019-09-10 10:02] VITALS: BP 109/81
[2019-09-10 10:03] VITALS: BP 109/81
--- NOTE | 2019-09-10 10:30 | NUR ---
Enteral feeding restarted as ordered by Dr Velasquez ,tolerated well.
[2019-09-10] MEDS: BISACODYL 10 MG SUPP.RECT RC PRN (18:12)
[2019-09-10] MEDS: GLUCERNA 1.2 1000ML LIQUID GT PRN (18:34)
[2019-09-10 20:00] VITALS: BP 147/91
[2019-09-10] MEDS: ASCORBIC ACID 500 MG TABLET GT SCH (21:09)
[2019-09-11] VITALS: BP 113/74
[2019-09-11] MEDS: OMEPRAZOLE 20 MG CAPSULE.DR GT SCH (05:54)
[2019-09-11] MEDS: MULTIVIT, IRON, MIN NO. 8, FA TABLET GT SCH (05:54)
[2019-09-11 08:00] VITALS: BP 127/67
[2019-09-11] MEDS: ACIDOPHILUS/BULGARICUS CHEW TAB GT SCH ×2 (09:01→21:09)
[2019-09-11] MEDS: BACLOFEN 20 MG TABLET GT SCH ×4 (09:01→21:09)
[2019-09-11] MEDS: METOPROLOL TARTRATE 50 MG TABLET GT SCH ×2 (09:02→21:10)
[2019-09-11] MEDS: Z GUARD REMEDY PASTE 57 GM TUBE TOP SCH ×4 (09:03→21:10)
[2019-09-11] MEDS: TRIAMCINOLONE ACET 0.1% CREAM 15 GM TUBE TP SCH ×2 (09:03→21:10)
[2019-09-11] MEDS: SIMETHICONE 80 MG TAB.CHEW GT SCH ×3 (09:03→16:02)
[2019-09-11] MEDS: SERTRALINE HCL 50 MG TABLET GT SCH (09:03)
[2019-09-11] MEDS: KETOCONAZOLE 2% SHAMPOO 120 ML BOTTLE TP SCH (09:03)
[2019-09-11] MEDS: HYDROGEN PEROXIDE 3% 118 ML BOTTLE TP SCH ×2 (09:48→20:58)
[2019-09-11] MEDS: GLUCERNA 1.2 1000ML LIQUID GT PRN (16:02)
[2019-09-11] MEDS: ACETAMINOPHEN 650 MG/20 ML UDC- SA PATIENTS-PAIN ONLY GT PRN (16:03)
--- NOTE | 2019-09-11 18:24 | NUR ---
EOS: No significant changes during this shift. Pt. remain non-verbal but responsive to tactile stimuli. Pt. remain stable with no acute distress. Skin care rendered. Pt. afebrile, cont. no chills noted this shift. No s/sx of bleeding. Safety measures in place. Will endorse to oncoming shift accordingly.
[2019-09-11 20:00] VITALS: BP 131/51
[2019-09-11] MEDS: ASCORBIC ACID 500 MG TABLET GT SCH (21:10)
[2019-09-12] MEDS: OMEPRAZOLE 20 MG CAPSULE.DR GT SCH (06:00)
[2019-09-12 07:39] VITALS: BP 130/78
[2019-09-12] MEDS: BACLOFEN 20 MG TABLET GT SCH ×4 (08:42→20:30)
[2019-09-12] MEDS: SERTRALINE HCL 50 MG TABLET GT SCH (08:42)
[2019-09-12] MEDS: METOPROLOL TARTRATE 50 MG TABLET GT SCH ×2 (08:42→20:30)
[2019-09-12] MEDS: SIMETHICONE 80 MG TAB.CHEW GT SCH ×3 (08:42→16:52)
[2019-09-12] MEDS: ACIDOPHILUS/BULGARICUS CHEW TAB GT SCH ×2 (08:42→20:30)
[2019-09-12] MEDS: Z GUARD REMEDY PASTE 57 GM TUBE TOP SCH ×4 (08:42→20:30)
[2019-09-12] MEDS: TRIAMCINOLONE ACET 0.1% CREAM 15 GM TUBE TP SCH ×2 (08:43→20:30)
[2019-09-12] MEDS: HYDROGEN PEROXIDE 3% 118 ML BOTTLE TP SCH ×2 (09:30→21:51)
[2019-09-12 20:24] VITALS: BP 120/76
[2019-09-12] MEDS: ASCORBIC ACID 500 MG TABLET GT SCH (20:30)
[2019-09-13] MEDS: MULTIVIT, IRON, MIN NO. 8, FA TABLET GT SCH (05:45)
[2019-09-13] MEDS: OMEPRAZOLE 20 MG CAPSULE.DR GT SCH (05:45)
[2019-09-13] MEDS: METOPROLOL TARTRATE 50 MG TABLET GT SCH ×2 (08:41→20:39)
[2019-09-13] MEDS: ACIDOPHILUS/BULGARICUS CHEW TAB GT SCH ×2 (08:41→20:39)
[2019-09-13] MEDS: BACLOFEN 20 MG TABLET GT SCH ×4 (08:41→20:39)
[2019-09-13] MEDS: SIMETHICONE 80 MG TAB.CHEW GT SCH ×3 (08:43→17:00)
[2019-09-13] MEDS: TRIAMCINOLONE ACET 0.1% CREAM 15 GM TUBE TP SCH ×2 (08:44→20:39)
[2019-09-13] MEDS: SERTRALINE HCL 50 MG TABLET GT SCH (08:44)
[2019-09-13] MEDS: Z GUARD REMEDY PASTE 57 GM TUBE TOP SCH ×4 (08:44→20:39)
[2019-09-13] MEDS: HYDROGEN PEROXIDE 3% 118 ML BOTTLE TP SCH ×2 (09:04→21:00)
[2019-09-13] MEDS: GLUCERNA 1.2 1000ML LIQUID GT PRN (11:24)
[2019-09-13 15:01] VITALS: BP 137/78
[2019-09-13 20:00] VITALS: BP 115/72
[2019-09-13] MEDS: ASCORBIC ACID 500 MG TABLET GT SCH (20:39)
[2019-09-14] MEDS: OMEPRAZOLE 20 MG CAPSULE.DR GT SCH (05:26)
[2019-09-14] MEDS: SIMETHICONE 80 MG TAB.CHEW GT SCH ×3 (08:15→16:42)
[2019-09-14] MEDS: ACIDOPHILUS/BULGARICUS CHEW TAB GT SCH ×2 (08:15→20:32)
[2019-09-14] MEDS: SERTRALINE HCL 50 MG TABLET GT SCH (08:15)
[2019-09-14] MEDS: METOPROLOL TARTRATE 50 MG TABLET GT SCH ×2 (08:15→20:32)
[2019-09-14] MEDS: BACLOFEN 20 MG TABLET GT SCH ×4 (08:15→20:32)
[2019-09-14] MEDS: TRIAMCINOLONE ACET 0.1% CREAM 15 GM TUBE TP SCH ×2 (08:16→20:32)
[2019-09-14] MEDS: Z GUARD REMEDY PASTE 57 GM TUBE TOP SCH ×4 (08:16→20:32)
[2019-09-14 08:30] VITALS: BP 143/90
[2019-09-14] MEDS: HYDROGEN PEROXIDE 3% 118 ML BOTTLE TP SCH ×2 (08:48→21:03)
[2019-09-14] MEDS: GLUCERNA 1.2 1000ML LIQUID GT PRN (11:32)
[2019-09-14 20:00] VITALS: BP 126/78
[2019-09-14] MEDS: ASCORBIC ACID 500 MG TABLET GT SCH (20:32)
[2019-09-15] MEDS: OMEPRAZOLE 20 MG CAPSULE.DR GT SCH (05:52)
[2019-09-15] MEDS: MULTIVIT, IRON, MIN NO. 8, FA TABLET GT SCH (05:52)
[2019-09-15] MEDS: HYDROGEN PEROXIDE 3% 118 ML BOTTLE TP SCH ×2 (07:21→21:19)
[2019-09-15 07:31] LABS: BASOPHILS # (AUTO) 0.1 K/uL (0.0-8.0); BASOPHILS % (AUTO) 0.8 % (0.0-2.0); EOSINOPHILS # (AUTO) 0.2 K/uL (0.0-0.7); EOSINOPHILS % (AUTO) 2.7 % (0.0-7.0); HEMOGLOBIN 10.9 g/dL (10.9-14.3); LYMPHOCYTES # (AUTO) 2.4 K/uL (20.0-40.0); LYMPHOCYTES % (AUTO) 36.6 % (20.5-51.5); MEAN CORPUSCULAR HGB CONC 31 g/dL (32.3-35.6); MEAN CORPUSCULAR VOLUME 70.5 fL (75.5-95.3); MONOCYTES # (AUTO) 0.6 K/uL (2.0-10.0); MONOCYTES % (AUTO) 9.3 % (0.0-11.0); NEUTROPHILS # (AUTO) 3.3 K/uL (1.8-8.9); NEUTROPHILS % (AUTO) 50.6 % (38.5-71.5); PLATELET COUNT (AUTO) 292 K/uL (179-408); RED BLOOD CELL COUNT(AUTO) 4.97 MIL/uL (3.63-4.92); WHITE BLOOD COUNT (AUTO) 6.5 K/uL (3.8-11.8)
[2019-09-15 08:30] VITALS: BP 144/80
--- NOTE | 2019-09-15 09:29 | NUR ---
Seen by Wil Culver, notified of patient's condition, with minimal rectal bleeding, no new orders given at this time, continue monitoring, comfort measures given.
[2019-09-15] MEDS: ACIDOPHILUS/BULGARICUS CHEW TAB GT SCH ×2 (09:39→21:16)
[2019-09-15] MEDS: SERTRALINE HCL 50 MG TABLET GT SCH (09:39)
[2019-09-15] MEDS: SIMETHICONE 80 MG TAB.CHEW GT SCH ×3 (09:39→17:15)
[2019-09-15] MEDS: Z GUARD REMEDY PASTE 57 GM TUBE TOP SCH ×4 (09:39→21:19)
[2019-09-15] MEDS: METOPROLOL TARTRATE 50 MG TABLET GT SCH ×2 (09:39→21:18)
[2019-09-15] MEDS: BACLOFEN 20 MG TABLET GT SCH ×4 (09:39→21:17)
[2019-09-15] MEDS: TRIAMCINOLONE ACET 0.1% CREAM 15 GM TUBE TP SCH ×2 (09:40→21:19)
[2019-09-15] MEDS: KETOCONAZOLE 2% SHAMPOO 120 ML BOTTLE TP SCH (09:40)
--- NOTE | 2019-09-15 11:00 | NUR ---
Seen by Cheryl CARMICHAEL, no new order given at this time
[2019-09-15] MEDS: GLUCERNA 1.2 1000ML LIQUID GT PRN (11:31)
[2019-09-15 20:13] VITALS: BP 142/84
[2019-09-15] MEDS: ASCORBIC ACID 500 MG TABLET GT SCH (21:19)
[2019-09-16] MEDS: OMEPRAZOLE 20 MG CAPSULE.DR GT SCH (04:54)
[2019-09-16] MEDS: GLUCERNA 1.2 1000ML LIQUID GT PRN (06:20)
[2019-09-16 08:00] VITALS: BP 138/93
[2019-09-16] MEDS: BACLOFEN 20 MG TABLET GT SCH ×4 (08:50→20:50)
[2019-09-16] MEDS: ACIDOPHILUS/BULGARICUS CHEW TAB GT SCH ×2 (08:50→20:49)
[2019-09-16] MEDS: METOPROLOL TARTRATE 50 MG TABLET GT SCH ×2 (08:51→20:52)
[2019-09-16] MEDS: SERTRALINE HCL 50 MG TABLET GT SCH (08:51)
[2019-09-16] MEDS: SIMETHICONE 80 MG TAB.CHEW GT SCH ×3 (08:51→17:52)
[2019-09-16] MEDS: Z GUARD REMEDY PASTE 57 GM TUBE TOP SCH ×4 (08:51→20:53)
[2019-09-16] MEDS: TRIAMCINOLONE ACET 0.1% CREAM 15 GM TUBE TP SCH ×2 (08:53→20:54)
[2019-09-16] MEDS: HYDROGEN PEROXIDE 3% 118 ML BOTTLE TP SCH ×2 (09:52→21:38)
[2019-09-16 20:12] VITALS: BP 112/83
[2019-09-16] MEDS: ASCORBIC ACID 500 MG TABLET GT SCH (20:52)
[2019-09-17] MEDS: GLUCERNA 1.2 1000ML LIQUID GT PRN (06:00)
[2019-09-17] MEDS: MULTIVIT, IRON, MIN NO. 8, FA TABLET GT SCH (06:22)
[2019-09-17] MEDS: OMEPRAZOLE 20 MG CAPSULE.DR GT SCH (06:22)
[2019-09-17 08:06] VITALS: BP 122/78
[2019-09-17] MEDS: ACIDOPHILUS/BULGARICUS CHEW TAB GT SCH ×2 (08:48→21:01)
[2019-09-17] MEDS: BACLOFEN 20 MG TABLET GT SCH ×4 (08:49→21:01)
[2019-09-17] MEDS: SIMETHICONE 80 MG TAB.CHEW GT SCH ×3 (08:50→17:00)
[2019-09-17] MEDS: Z GUARD REMEDY PASTE 57 GM TUBE TOP SCH ×4 (08:50→21:04)
[2019-09-17] MEDS: METOPROLOL TARTRATE 50 MG TABLET GT SCH ×2 (08:50→21:03)
[2019-09-17] MEDS: SERTRALINE HCL 50 MG TABLET GT SCH (08:50)
[2019-09-17] MEDS: TRIAMCINOLONE ACET 0.1% CREAM 15 GM TUBE TP SCH ×2 (09:00→21:04)
[2019-09-17] MEDS: HYDROGEN PEROXIDE 3% 118 ML BOTTLE TP SCH ×2 (09:01→21:00)
[2019-09-17 19:55] VITALS: BP 130/82
[2019-09-17] MEDS: ASCORBIC ACID 500 MG TABLET GT SCH (21:03)
[2019-09-18] MEDS: GLUCERNA 1.2 1000ML LIQUID GT PRN (06:17)
[2019-09-18] MEDS: OMEPRAZOLE 20 MG CAPSULE.DR GT SCH (06:17)
[2019-09-18 07:48] VITALS: BP 127/73
[2019-09-18] MEDS: ACIDOPHILUS/BULGARICUS CHEW TAB GT SCH ×2 (08:02→21:15)
[2019-09-18] MEDS: BACLOFEN 20 MG TABLET GT SCH ×4 (08:02→21:15)
[2019-09-18] MEDS: TRIAMCINOLONE ACET 0.1% CREAM 15 GM TUBE TP SCH ×2 (08:03→21:18)
[2019-09-18] MEDS: SERTRALINE HCL 50 MG TABLET GT SCH (08:03)
[2019-09-18] MEDS: Z GUARD REMEDY PASTE 57 GM TUBE TOP SCH ×4 (08:03→21:17)
[2019-09-18] MEDS: METOPROLOL TARTRATE 50 MG TABLET GT SCH ×2 (08:03→21:17)
[2019-09-18] MEDS: KETOCONAZOLE 2% SHAMPOO 120 ML BOTTLE TP SCH (08:03)
[2019-09-18] MEDS: SIMETHICONE 80 MG TAB.CHEW GT SCH ×3 (08:03→17:05)
[2019-09-18] MEDS: HYDROGEN PEROXIDE 3% 118 ML BOTTLE TP SCH ×2 (09:45→21:39)
[2019-09-18 20:17] VITALS: BP 129/84
[2019-09-18] MEDS: ASCORBIC ACID 500 MG TABLET GT SCH (21:17)
[2019-09-19] MEDS: MULTIVIT, IRON, MIN NO. 8, FA TABLET GT SCH (05:56)
[2019-09-19] MEDS: OMEPRAZOLE 20 MG CAPSULE.DR GT SCH (05:56)
[2019-09-19] MEDS: GLUCERNA 1.2 1000ML LIQUID GT PRN (06:00)
[2019-09-19] MEDS: BACLOFEN 20 MG TABLET GT SCH ×4 (08:03→21:08)
[2019-09-19] MEDS: ACIDOPHILUS/BULGARICUS CHEW TAB GT SCH ×2 (08:03→21:08)
[2019-09-19] MEDS: METOPROLOL TARTRATE 50 MG TABLET GT SCH ×2 (08:03→21:09)
[2019-09-19] MEDS: Z GUARD REMEDY PASTE 57 GM TUBE TOP SCH ×4 (08:04→21:10)
[2019-09-19] MEDS: SERTRALINE HCL 50 MG TABLET GT SCH (08:04)
[2019-09-19] MEDS: TRIAMCINOLONE ACET 0.1% CREAM 15 GM TUBE TP SCH ×2 (08:04→21:10)
[2019-09-19] MEDS: SIMETHICONE 80 MG TAB.CHEW GT SCH ×3 (08:04→17:07)
[2019-09-19] MEDS: HYDROGEN PEROXIDE 3% 118 ML BOTTLE TP SCH ×2 (09:44→21:10)
--- NOTE | 2019-09-19 15:00 | NUR ---
SEEN BY DR. IBRAHIM AND WITH NNO.
[2019-09-19 20:00] VITALS: BP 148/93
[2019-09-19] MEDS: ASCORBIC ACID 500 MG TABLET GT SCH (21:10)
[2019-09-20] MEDS: GLUCERNA 1.2 1000ML LIQUID GT PRN (03:02)
[2019-09-20] MEDS: OMEPRAZOLE 20 MG CAPSULE.DR GT SCH (05:55)
[2019-09-20 07:47] VITALS: BP 120/69
[2019-09-20] MEDS: ACIDOPHILUS/BULGARICUS CHEW TAB GT SCH ×2 (08:31→20:33)
[2019-09-20] MEDS: BACLOFEN 20 MG TABLET GT SCH ×4 (08:31→20:33)
[2019-09-20] MEDS: SIMETHICONE 80 MG TAB.CHEW GT SCH ×3 (08:32→17:31)
[2019-09-20] MEDS: METOPROLOL TARTRATE 50 MG TABLET GT SCH ×2 (08:32→20:34)
[2019-09-20] MEDS: SERTRALINE HCL 50 MG TABLET GT SCH (08:32)
[2019-09-20] MEDS: TRIAMCINOLONE ACET 0.1% CREAM 15 GM TUBE TP SCH ×2 (08:33→20:34)
[2019-09-20] MEDS: Z GUARD REMEDY PASTE 57 GM TUBE TOP SCH ×4 (08:33→20:34)
[2019-09-20] MEDS: HYDROGEN PEROXIDE 3% 118 ML BOTTLE TP SCH ×2 (08:39→21:22)
[2019-09-20 20:03] VITALS: BP 133/76
[2019-09-20] MEDS: ASCORBIC ACID 500 MG TABLET GT SCH (20:34)
[2019-09-21] MEDS: GLUCERNA 1.2 1000ML LIQUID GT PRN (05:44)
[2019-09-21] MEDS: MULTIVIT, IRON, MIN NO. 8, FA TABLET GT SCH (05:44)
[2019-09-21] MEDS: OMEPRAZOLE 20 MG CAPSULE.DR GT SCH (05:44)
[2019-09-21] MEDS: HYDROGEN PEROXIDE 3% 118 ML BOTTLE TP SCH ×2 (07:25→21:06)
[2019-09-21 08:01] VITALS: BP 111/77
[2019-09-21] MEDS: METOPROLOL TARTRATE 50 MG TABLET GT SCH ×2 (08:59→21:21)
[2019-09-21] MEDS: BACLOFEN 20 MG TABLET GT SCH ×4 (08:59→21:21)
[2019-09-21] MEDS: ACIDOPHILUS/BULGARICUS CHEW TAB GT SCH ×2 (08:59→21:20)
[2019-09-21] MEDS: SERTRALINE HCL 50 MG TABLET GT SCH (08:59)
[2019-09-21] MEDS: Z GUARD REMEDY PASTE 57 GM TUBE TOP SCH ×4 (08:59→21:21)
[2019-09-21] MEDS: SIMETHICONE 80 MG TAB.CHEW GT SCH ×3 (08:59→17:21)
[2019-09-21] MEDS: TRIAMCINOLONE ACET 0.1% CREAM 15 GM TUBE TP SCH ×2 (09:00→21:21)
[2019-09-21 20:25] VITALS: BP 140/80
[2019-09-21] MEDS: ASCORBIC ACID 500 MG TABLET GT SCH (21:21)
[2019-09-22] MEDS: OMEPRAZOLE 20 MG CAPSULE.DR GT SCH (05:26)
[2019-09-22] MEDS: GLUCERNA 1.2 1000ML LIQUID GT PRN (05:27)
[2019-09-22 08:06] VITALS: BP 106/71
[2019-09-22] MEDS: HYDROGEN PEROXIDE 3% 118 ML BOTTLE TP SCH ×2 (09:23→21:36)
[2019-09-22] MEDS: BACLOFEN 20 MG TABLET GT SCH ×4 (09:27→21:00)
[2019-09-22] MEDS: SERTRALINE HCL 50 MG TABLET GT SCH (09:27)
[2019-09-22] MEDS: SIMETHICONE 80 MG TAB.CHEW GT SCH ×3 (09:27→17:52)
[2019-09-22] MEDS: ACIDOPHILUS/BULGARICUS CHEW TAB GT SCH ×2 (09:27→21:00)
[2019-09-22] MEDS: METOPROLOL TARTRATE 50 MG TABLET GT SCH ×2 (09:27→21:00)
[2019-09-22] MEDS: Z GUARD REMEDY PASTE 57 GM TUBE TOP SCH ×4 (09:27→21:00)
[2019-09-22] MEDS: TRIAMCINOLONE ACET 0.1% CREAM 15 GM TUBE TP SCH ×2 (09:28→21:00)
[2019-09-22] MEDS: KETOCONAZOLE 2% SHAMPOO 120 ML BOTTLE TP SCH (09:28)
[2019-09-22] MEDS: ACETAMINOPHEN 650 MG/20 ML UDC- SA PATIENTS-PAIN ONLY GT PRN (11:44)
--- NOTE | 2019-09-22 11:55 | NUR ---
SEEN BY DR. IBRAHIM AND WITH NNO.
[2019-09-22 20:14] VITALS: BP 137/85
[2019-09-22] MEDS: ASCORBIC ACID 500 MG TABLET GT SCH (21:00)
[2019-09-23] MEDS: GLUCERNA 1.2 1000ML LIQUID GT PRN (03:00)
[2019-09-23] MEDS: OMEPRAZOLE 20 MG CAPSULE.DR GT SCH (06:06)
[2019-09-23] MEDS: MULTIVIT, IRON, MIN NO. 8, FA TABLET GT SCH (06:08)
[2019-09-23 07:58] VITALS: BP 138/86
[2019-09-23] MEDS: HYDROGEN PEROXIDE 3% 118 ML BOTTLE TP SCH ×2 (09:00→20:40)
[2019-09-23] MEDS: TRIAMCINOLONE ACET 0.1% CREAM 15 GM TUBE TP SCH ×2 (09:12→21:02)
[2019-09-23] MEDS: Z GUARD REMEDY PASTE 57 GM TUBE TOP SCH ×4 (09:12→21:02)
[2019-09-23] MEDS: SERTRALINE HCL 50 MG TABLET GT SCH (09:12)
[2019-09-23] MEDS: SIMETHICONE 80 MG TAB.CHEW GT SCH ×3 (09:12→17:00)
[2019-09-23] MEDS: BACLOFEN 20 MG TABLET GT SCH ×4 (09:12→21:01)
[2019-09-23] MEDS: ACIDOPHILUS/BULGARICUS CHEW TAB GT SCH ×2 (09:12→21:00)
[2019-09-23] MEDS: METOPROLOL TARTRATE 50 MG TABLET GT SCH ×2 (09:13→21:02)
[2019-09-23 19:42] VITALS: BP 128/90
[2019-09-23] MEDS: ASCORBIC ACID 500 MG TABLET GT SCH (21:02)
[2019-09-24] MEDS: OMEPRAZOLE 20 MG CAPSULE.DR GT SCH (06:10)
[2019-09-24 08:00] VITALS: BP 130/86
[2019-09-24] MEDS: ACIDOPHILUS/BULGARICUS CHEW TAB GT SCH ×2 (08:10→21:06)
[2019-09-24] MEDS: SERTRALINE HCL 50 MG TABLET GT SCH (08:11)
[2019-09-24] MEDS: Z GUARD REMEDY PASTE 57 GM TUBE TOP SCH ×4 (08:11→21:07)
[2019-09-24] MEDS: METOPROLOL TARTRATE 50 MG TABLET GT SCH ×2 (08:11→21:07)
[2019-09-24] MEDS: BACLOFEN 20 MG TABLET GT SCH ×4 (08:11→21:06)
[2019-09-24] MEDS: SIMETHICONE 80 MG TAB.CHEW GT SCH ×3 (08:11→17:10)
[2019-09-24] MEDS: TRIAMCINOLONE ACET 0.1% CREAM 15 GM TUBE TP SCH ×2 (08:12→21:07)
[2019-09-24] MEDS: HYDROGEN PEROXIDE 3% 118 ML BOTTLE TP SCH ×2 (09:00→21:41)
[2019-09-24 19:58] VITALS: BP 120/87
[2019-09-24] MEDS: ASCORBIC ACID 500 MG TABLET GT SCH (21:07)
[2019-09-25] MEDS: OMEPRAZOLE 20 MG CAPSULE.DR GT SCH (05:39)
[2019-09-25] MEDS: MULTIVIT, IRON, MIN NO. 8, FA TABLET GT SCH (05:39)
[2019-09-25 07:44] VITALS: BP 127/74
[2019-09-25] MEDS: ACIDOPHILUS/BULGARICUS CHEW TAB GT SCH ×2 (08:50→21:52)
[2019-09-25] MEDS: BACLOFEN 20 MG TABLET GT SCH ×4 (08:50→21:52)
[2019-09-25] MEDS: Z GUARD REMEDY PASTE 57 GM TUBE TOP SCH ×4 (08:51→21:53)
[2019-09-25] MEDS: METOPROLOL TARTRATE 50 MG TABLET GT SCH ×2 (08:51→21:52)
[2019-09-25] MEDS: KETOCONAZOLE 2% SHAMPOO 120 ML BOTTLE TP SCH (08:51)
[2019-09-25] MEDS: TRIAMCINOLONE ACET 0.1% CREAM 15 GM TUBE TP SCH ×2 (08:51→21:53)
[2019-09-25] MEDS: SIMETHICONE 80 MG TAB.CHEW GT SCH ×3 (08:51→17:06)
[2019-09-25] MEDS: SERTRALINE HCL 50 MG TABLET GT SCH (08:51)
[2019-09-25] MEDS: HYDROGEN PEROXIDE 3% 118 ML BOTTLE TP SCH ×2 (09:00→21:22)
--- NOTE | 2019-09-25 19:05 | NUR ---
SEEN AND EXAMINED BY DR. OGLESBY WITH NEW ORDERS. NOTED AND CARRIED OUT.
[2019-09-25 20:00] VITALS: BP 139/96
[2019-09-25] MEDS: ASCORBIC ACID 500 MG TABLET GT SCH (21:52)
[2019-09-26] MEDS: OMEPRAZOLE 20 MG CAPSULE.DR GT SCH (05:59)
[2019-09-26 07:38] VITALS: BP 131/84
[2019-09-26] MEDS: HYDROGEN PEROXIDE 3% 118 ML BOTTLE TP SCH ×2 (08:15→21:00)
[2019-09-26] MEDS: ACIDOPHILUS/BULGARICUS CHEW TAB GT SCH ×2 (09:06→20:38)
[2019-09-26] MEDS: BACLOFEN 20 MG TABLET GT SCH ×4 (09:06→20:38)
[2019-09-26] MEDS: METOPROLOL TARTRATE 50 MG TABLET GT SCH ×2 (09:06→20:38)
[2019-09-26] MEDS: SIMETHICONE 80 MG TAB.CHEW GT SCH ×3 (09:07→17:37)
[2019-09-26] MEDS: SERTRALINE HCL 50 MG TABLET GT SCH (09:07)
[2019-09-26] MEDS: TRIAMCINOLONE ACET 0.1% CREAM 15 GM TUBE TP SCH ×2 (09:07→20:38)
[2019-09-26] MEDS: Z GUARD REMEDY PASTE 57 GM TUBE TOP SCH ×4 (09:07→20:38)
[2019-09-26] MEDS: GLUCERNA 1.2 1000ML LIQUID GT PRN (13:07)
[2019-09-26 20:00] VITALS: BP 141/93
[2019-09-26] MEDS: ASCORBIC ACID 500 MG TABLET GT SCH (20:38)
[2019-09-27] MEDS: MULTIVIT, IRON, MIN NO. 8, FA TABLET GT SCH (05:43)
[2019-09-27] MEDS: OMEPRAZOLE 20 MG CAPSULE.DR GT SCH (05:43)
[2019-09-27 07:46] VITALS: BP 136/71
[2019-09-27] MEDS: METOPROLOL TARTRATE 50 MG TABLET GT SCH ×2 (08:47→20:50)
[2019-09-27] MEDS: SIMETHICONE 80 MG TAB.CHEW GT SCH ×3 (08:47→16:20)
[2019-09-27] MEDS: BACLOFEN 20 MG TABLET GT SCH ×4 (08:47→20:49)
[2019-09-27] MEDS: SERTRALINE HCL 50 MG TABLET GT SCH (08:47)
[2019-09-27] MEDS: ACIDOPHILUS/BULGARICUS CHEW TAB GT SCH ×2 (08:47→20:49)
[2019-09-27] MEDS: Z GUARD REMEDY PASTE 57 GM TUBE TOP SCH ×4 (08:47→20:50)
[2019-09-27] MEDS: TRIAMCINOLONE ACET 0.1% CREAM 15 GM TUBE TP SCH ×2 (08:48→20:50)
[2019-09-27] MEDS: HYDROGEN PEROXIDE 3% 118 ML BOTTLE TP SCH ×2 (09:00→19:25)
[2019-09-27] MEDS: GLUCERNA 1.2 1000ML LIQUID GT PRN (14:41)
[2019-09-27 20:01] VITALS: BP 135/77
[2019-09-27] MEDS: ASCORBIC ACID 500 MG TABLET GT SCH (20:50)
[2019-09-28] MEDS: OMEPRAZOLE 20 MG CAPSULE.DR GT SCH (05:26)
[2019-09-28 07:52] VITALS: BP 125/79
[2019-09-28] MEDS: BACLOFEN 20 MG TABLET GT SCH ×4 (08:14→20:38)
[2019-09-28] MEDS: Z GUARD REMEDY PASTE 57 GM TUBE TOP SCH ×4 (08:14→20:38)
[2019-09-28] MEDS: SERTRALINE HCL 50 MG TABLET GT SCH (08:14)
[2019-09-28] MEDS: METOPROLOL TARTRATE 50 MG TABLET GT SCH ×2 (08:14→20:38)
[2019-09-28] MEDS: SIMETHICONE 80 MG TAB.CHEW GT SCH ×3 (08:14→17:15)
[2019-09-28] MEDS: ACIDOPHILUS/BULGARICUS CHEW TAB GT SCH ×2 (08:14→20:38)
[2019-09-28] MEDS: TRIAMCINOLONE ACET 0.1% CREAM 15 GM TUBE TP SCH ×2 (08:15→20:38)
[2019-09-28] MEDS: HYDROGEN PEROXIDE 3% 118 ML BOTTLE TP SCH ×2 (09:00→21:08)
[2019-09-28] MEDS: GLUCERNA 1.2 1000ML LIQUID GT PRN (15:16)
[2019-09-28 20:17] VITALS: BP 124/56
[2019-09-28] MEDS: ASCORBIC ACID 500 MG TABLET GT SCH (20:38)
[2019-09-29] MEDS: MULTIVIT, IRON, MIN NO. 8, FA TABLET GT SCH (05:36)
[2019-09-29] MEDS: OMEPRAZOLE 20 MG CAPSULE.DR GT SCH (05:36)
[2019-09-29 08:01] LABS: BASOPHILS # (AUTO) 0.1 K/uL (0.0-8.0); BASOPHILS % (AUTO) 0.9 % (0.0-2.0); EOSINOPHILS # (AUTO) 0.2 K/uL (0.0-0.7); EOSINOPHILS % (AUTO) 2.9 % (0.0-7.0); HEMATOCRIT 35.7 % (31.2-41.9); LYMPHOCYTES # (AUTO) 2.5 K/uL (20.0-40.0); LYMPHOCYTES % (AUTO) 35.5 % (20.5-51.5); MEAN CORPUSCULAR HGB CONC 31 g/dL (32.3-35.6); MEAN CORPUSCULAR VOLUME 71.4 fL (75.5-95.3); MONOCYTES # (AUTO) 0.7 K/uL (2.0-10.0); MONOCYTES % (AUTO) 10.7 % (0.0-11.0); NEUTROPHILS # (AUTO) 3.5 K/uL (1.8-8.9); PLATELET COUNT (AUTO) 328 K/uL (179-408)
[2019-09-29 08:04] VITALS: BP 118/81
[2019-09-29 08:15] LABS: CREATININE 0.8 mg/dL (0.6-1.3)
[2019-09-29 08:31] LABS: BAND % (MANUAL) 2 % (0-10); NEUTROPHILS % (MANUAL) 57 % (42-75)
[2019-09-29 08:32] LABS: LYMPHOCYTES % (MANUAL) 26 % (20-40); MONOCYTES % (MANUAL) 15 % (2-10)
[2019-09-29] MEDS: ACIDOPHILUS/BULGARICUS CHEW TAB GT SCH ×2 (08:55→20:21)
[2019-09-29] MEDS: BACLOFEN 20 MG TABLET GT SCH ×4 (08:55→20:21)
[2019-09-29] MEDS: SIMETHICONE 80 MG TAB.CHEW GT SCH ×3 (08:55→17:08)
[2019-09-29] MEDS: HYDROGEN PEROXIDE 3% 118 ML BOTTLE TP SCH ×2 (08:56→21:34)
[2019-09-29] MEDS: SERTRALINE HCL 50 MG TABLET GT SCH (09:20)
[2019-09-29] MEDS: METOPROLOL TARTRATE 50 MG TABLET GT SCH ×2 (09:20→21:03)
[2019-09-29] MEDS: TRIAMCINOLONE ACET 0.1% CREAM 15 GM TUBE TP SCH (09:20)
[2019-09-29] MEDS: Z GUARD REMEDY PASTE 57 GM TUBE TOP SCH ×4 (09:20→21:03)
[2019-09-29] MEDS: KETOCONAZOLE 2% SHAMPOO 120 ML BOTTLE TP SCH (09:21)
--- NOTE | 2019-09-29 09:30 | NUR ---
Seen by Natalya Culver with no new order.
--- NOTE | 2019-09-29 11:30 | NUR ---
Seen by Dalia SMITH with no new order.
[2019-09-29] MEDS: GLUCERNA 1.2 1000ML LIQUID GT PRN (18:38)
[2019-09-29 19:43] VITALS: BP 141/85
[2019-09-29] MEDS: ASCORBIC ACID 500 MG TABLET GT SCH (20:21)
[2019-09-30] MEDS: OMEPRAZOLE 20 MG CAPSULE.DR GT SCH (05:29)
[2019-09-30 07:52] VITALS: BP 134/83
[2019-09-30] MEDS: HYDROGEN PEROXIDE 3% 118 ML BOTTLE TP SCH ×2 (08:28→21:10)
[2019-09-30] MEDS: ACIDOPHILUS/BULGARICUS CHEW TAB GT SCH ×2 (09:11→20:53)
[2019-09-30] MEDS: BACLOFEN 20 MG TABLET GT SCH ×4 (09:11→20:54)
[2019-09-30] MEDS: SIMETHICONE 80 MG TAB.CHEW GT SCH ×3 (09:11→17:00)
[2019-09-30] MEDS: Z GUARD REMEDY PASTE 57 GM TUBE TOP SCH ×3 (09:11→20:56)
[2019-09-30] MEDS: SERTRALINE HCL 50 MG TABLET GT SCH (09:11)
[2019-09-30] MEDS: METOPROLOL TARTRATE 50 MG TABLET GT SCH ×2 (09:12→20:55)
--- NOTE | 2019-09-30 11:13 | NUR ---
new orders noted to jah docusate Prn.
[2019-09-30 20:00] VITALS: BP 124/86
[2019-09-30] MEDS: ASCORBIC ACID 500 MG TABLET GT SCH (20:55)
[2019-10-01] MEDS: OMEPRAZOLE 20 MG CAPSULE.DR GT SCH (05:23)
[2019-10-01] MEDS: MULTIVIT, IRON, MIN NO. 8, FA TABLET GT SCH (06:17)
[2019-10-01] MEDS: HYDROGEN PEROXIDE 3% 118 ML BOTTLE TP SCH ×2 (07:30→19:01)
[2019-10-01 08:05] VITALS: BP 111/74
[2019-10-01] MEDS: ACIDOPHILUS/BULGARICUS CHEW TAB GT SCH ×2 (08:48→21:17)
[2019-10-01] MEDS: BACLOFEN 20 MG TABLET GT SCH ×4 (08:48→21:17)
[2019-10-01] MEDS: SIMETHICONE 80 MG TAB.CHEW GT SCH ×3 (08:49→17:13)
[2019-10-01] MEDS: Z GUARD REMEDY PASTE 57 GM TUBE TOP SCH ×2 (08:49→21:18)
[2019-10-01] MEDS: SERTRALINE HCL 50 MG TABLET GT SCH (08:49)
[2019-10-01] MEDS: METOPROLOL TARTRATE 50 MG TABLET GT SCH ×2 (08:49→21:18)
[2019-10-01 19:59] VITALS: BP 161/91
[2019-10-01] MEDS: ASCORBIC ACID 500 MG TABLET GT SCH (21:18)
[2019-10-01 21:59] VITALS: BP 122/72
[2019-10-02] MEDS: OMEPRAZOLE 20 MG CAPSULE.DR GT SCH (05:50)
[2019-10-02 08:01] VITALS: BP 122/77
[2019-10-02] MEDS: SERTRALINE HCL 50 MG TABLET GT SCH (08:36)
[2019-10-02] MEDS: ACIDOPHILUS/BULGARICUS CHEW TAB GT SCH ×2 (08:36→20:59)
[2019-10-02] MEDS: Z GUARD REMEDY PASTE 57 GM TUBE TOP SCH ×2 (08:36→21:00)
[2019-10-02] MEDS: METOPROLOL TARTRATE 50 MG TABLET GT SCH ×2 (08:36→20:59)
[2019-10-02] MEDS: SIMETHICONE 80 MG TAB.CHEW GT SCH ×3 (08:36→17:14)
[2019-10-02] MEDS: BACLOFEN 20 MG TABLET GT SCH ×4 (08:36→20:59)
[2019-10-02] MEDS: KETOCONAZOLE 2% SHAMPOO 120 ML BOTTLE TP SCH (08:37)
--- NOTE | 2019-10-02 09:11 | NUR ---
SEEN AND EXAMINED BY DR. IBRAHIM AND WITH NNO.
[2019-10-02] MEDS: HYDROGEN PEROXIDE 3% 118 ML BOTTLE TP SCH ×2 (09:20→18:53)
[2019-10-02 20:09] VITALS: BP 133/81
[2019-10-02] MEDS: ASCORBIC ACID 500 MG TABLET GT SCH (21:00)
[2019-10-03] MEDS: OMEPRAZOLE 20 MG CAPSULE.DR GT SCH (05:27)
[2019-10-03 07:37] VITALS: BP 130/83
[2019-10-03] MEDS: HYDROGEN PEROXIDE 3% 118 ML BOTTLE TP SCH ×2 (08:07→18:50)
[2019-10-03] MEDS: ACIDOPHILUS/BULGARICUS CHEW TAB GT SCH ×2 (09:33→21:22)
[2019-10-03] MEDS: BACLOFEN 20 MG TABLET GT SCH ×4 (09:33→21:22)
[2019-10-03] MEDS: SIMETHICONE 80 MG TAB.CHEW GT SCH ×3 (09:34→16:56)
[2019-10-03] MEDS: Z GUARD REMEDY PASTE 57 GM TUBE TOP SCH ×2 (09:34→21:22)
[2019-10-03] MEDS: METOPROLOL TARTRATE 50 MG TABLET GT SCH ×2 (09:34→21:22)
[2019-10-03] MEDS: SERTRALINE HCL 50 MG TABLET GT SCH (09:34)
[2019-10-03] MEDS: GLUCERNA 1.2 1000ML LIQUID GT PRN (11:43)
[2019-10-03] MEDS: ASCORBIC ACID 500 MG TABLET GT SCH (21:22)
[2019-10-03 22:42] VITALS: BP 119/80
[2019-10-04] MEDS: OMEPRAZOLE 20 MG CAPSULE.DR GT SCH (06:04)
[2019-10-04 07:47] VITALS: BP 116/80
[2019-10-04] MEDS: ACIDOPHILUS/BULGARICUS CHEW TAB GT SCH ×2 (08:58→21:11)
[2019-10-04] MEDS: BACLOFEN 20 MG TABLET GT SCH ×4 (09:02→21:10)
[2019-10-04] MEDS: SIMETHICONE 80 MG TAB.CHEW GT SCH ×3 (09:02→17:13)
[2019-10-04] MEDS: METOPROLOL TARTRATE 50 MG TABLET GT SCH ×2 (09:02→21:13)
[2019-10-04] MEDS: Z GUARD REMEDY PASTE 57 GM TUBE TOP SCH ×2 (09:03→21:11)
[2019-10-04] MEDS: SERTRALINE HCL 50 MG TABLET GT SCH (09:03)
[2019-10-04] MEDS: GLUCERNA 1.2 1000ML LIQUID GT PRN (09:04)
[2019-10-04] MEDS: HYDROGEN PEROXIDE 3% 118 ML BOTTLE TP SCH ×2 (09:46→21:28)
[2019-10-04] MEDS: ACETAMINOPHEN 650 MG/20 ML UDC- SA PATIENTS-PAIN ONLY GT PRN (12:36)
[2019-10-04] MEDS: ASCORBIC ACID 500 MG TABLET GT SCH (21:11)
[2019-10-04 22:07] VITALS: BP 135/86
[2019-10-05] MEDS: MULTIVIT, IRON, MIN NO. 8, FA TABLET GT SCH (05:55)
[2019-10-05] MEDS: OMEPRAZOLE 20 MG CAPSULE.DR GT SCH (05:56)
[2019-10-05 07:45] VITALS: BP 120/81
[2019-10-05] MEDS: BACLOFEN 20 MG TABLET GT SCH ×4 (08:13→21:00)
[2019-10-05] MEDS: ACIDOPHILUS/BULGARICUS CHEW TAB GT SCH ×2 (08:13→21:00)
[2019-10-05] MEDS: SIMETHICONE 80 MG TAB.CHEW GT SCH ×3 (08:14→17:20)
[2019-10-05] MEDS: METOPROLOL TARTRATE 50 MG TABLET GT SCH ×2 (08:14→21:00)
[2019-10-05] MEDS: Z GUARD REMEDY PASTE 57 GM TUBE TOP SCH ×2 (08:15→21:00)
[2019-10-05] MEDS: SERTRALINE HCL 50 MG TABLET GT SCH (08:15)
[2019-10-05] MEDS: HYDROGEN PEROXIDE 3% 118 ML BOTTLE TP SCH ×2 (09:49→21:35)
[2019-10-05] MEDS: ACETAMINOPHEN 650 MG/20 ML UDC- SA PATIENTS-PAIN ONLY GT PRN (14:44)
[2019-10-05] MEDS: ASCORBIC ACID 500 MG TABLET GT SCH (21:00)
[2019-10-05 22:42] VITALS: BP 126/84
[2019-10-06] MEDS: GLUCERNA 1.2 1000ML LIQUID GT PRN (01:47)
[2019-10-06] MEDS: OMEPRAZOLE 20 MG CAPSULE.DR GT SCH (05:22)
[2019-10-06 07:55] VITALS: BP 126/74
[2019-10-06] MEDS: KETOCONAZOLE 2% SHAMPOO 120 ML BOTTLE TP SCH (09:00)
[2019-10-06] MEDS: BACLOFEN 20 MG TABLET GT SCH ×4 (09:00→21:43)
[2019-10-06] MEDS: ACIDOPHILUS/BULGARICUS CHEW TAB GT SCH ×2 (09:00→21:43)
[2019-10-06] MEDS: Z GUARD REMEDY PASTE 57 GM TUBE TOP SCH ×2 (09:00→21:43)
[2019-10-06] MEDS: METOPROLOL TARTRATE 50 MG TABLET GT SCH ×2 (09:00→21:43)
[2019-10-06] MEDS: SIMETHICONE 80 MG TAB.CHEW GT SCH ×3 (09:00→17:44)
[2019-10-06] MEDS: SERTRALINE HCL 50 MG TABLET GT SCH (09:00)
[2019-10-06] MEDS: HYDROGEN PEROXIDE 3% 118 ML BOTTLE TP SCH ×2 (09:00→20:54)
--- NOTE | 2019-10-06 12:00 | NUR ---
SEEN BY GLENN JACKSON WITH NNO.
[2019-10-06 20:00] VITALS: BP_SYST 114; BP_SYST 137; BP_DIAS 65; BP_DIAS 83
[2019-10-06] MEDS: ASCORBIC ACID 500 MG TABLET GT SCH (21:43)
[2019-10-07] MEDS: GLUCERNA 1.2 1000ML LIQUID GT PRN (01:18)
[2019-10-07] MEDS: OMEPRAZOLE 20 MG CAPSULE.DR GT SCH (05:51)
[2019-10-07] MEDS: MULTIVIT, IRON, MIN NO. 8, FA TABLET GT SCH (05:51)
[2019-10-07] MEDS: HYDROGEN PEROXIDE 3% 118 ML BOTTLE TP SCH ×2 (07:17→20:49)
[2019-10-07 07:34] VITALS: BP 125/76
[2019-10-07] MEDS: ACIDOPHILUS/BULGARICUS CHEW TAB GT SCH ×2 (09:09→20:58)
[2019-10-07] MEDS: BACLOFEN 20 MG TABLET GT SCH ×4 (09:09→20:58)
[2019-10-07] MEDS: SIMETHICONE 80 MG TAB.CHEW GT SCH ×3 (09:10→17:35)
[2019-10-07] MEDS: SERTRALINE HCL 50 MG TABLET GT SCH (09:10)
[2019-10-07] MEDS: METOPROLOL TARTRATE 50 MG TABLET GT SCH ×2 (09:10→21:00)
[2019-10-07] MEDS: Z GUARD REMEDY PASTE 57 GM TUBE TOP SCH ×2 (09:11→21:00)
--- NOTE | 2019-10-07 12:53 | NUR ---
INTERDISCIPLINARY PLAN OF CARE CONFERENCE was held today. Patient's family was not available to participate in the meeting. Dr. Heaton and the Interdisciplinary Team reviewed the current plan of care in detail. RN reported on patient's current medical condition and findings of most recent labs. No major changes in condition were reported. See RN IDT conference notes. See all also other disciplines IDT notes and physician's progress notes for additional details.
--- NOTE | 2019-10-07 13:09 | NUR ---
Pharmacy Update from Today's 10/07/19 IDT meeting VS: Temp 98.2 BP 125/76 HR 87 LABS: (from 09/29/19) Wbc 7.0 H/H 11/35.7 Plt 328 Na 138 K 4.0 Cl 104 CO2 26 BUN/SCr 16/0.8 BS 120 Ca 9.4 MEDICATION USE REVIEWED: > Pt is not on any anti-epileptic medications > Pt is on Zoloft 50mg daily for depression m/b episodes of crying; No GDR planned for pt d/t contraindication of persistent cry episodes and repeated failed GDRs in the past (see MD note). Patient had x5 episodes in August, pt's condition remains about baseline with occasional increases in episodes. Will continue to follow trend > Pt was on depo-provera [id number] for heavy menstruation, last given 03/30/19. Now d/c'd per gynocology as pt reaching menopause age and may no longer need. 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 No further rx recommendations at this time. previous rx rec change reported. Pt remains stable on current regimen, will continue to follow.
[2019-10-07 20:00] VITALS: BP 114/80
[2019-10-07] MEDS: ASCORBIC ACID 500 MG TABLET GT SCH (21:00)
[2019-10-07] MEDS: TRIAMCINOLONE ACET 0.1% CREAM 15 GM TUBE TP SCH (21:00)
[2019-10-08] MEDS: GLUCERNA 1.2 1000ML LIQUID GT PRN (01:42)
[2019-10-08] MEDS: OMEPRAZOLE 20 MG CAPSULE.DR GT SCH (05:43)
[2019-10-08 07:58] VITALS: BP 126/78
[2019-10-08] MEDS: HYDROGEN PEROXIDE 3% 118 ML BOTTLE TP SCH ×2 (08:16→21:22)
[2019-10-08] MEDS: METOPROLOL TARTRATE 50 MG TABLET GT SCH ×2 (08:27→21:24)
[2019-10-08] MEDS: ACIDOPHILUS/BULGARICUS CHEW TAB GT SCH ×2 (08:27→21:20)
[2019-10-08] MEDS: BACLOFEN 20 MG TABLET GT SCH ×4 (08:27→21:20)
[2019-10-08] MEDS: Z GUARD REMEDY PASTE 57 GM TUBE TOP SCH ×2 (08:28→21:22)
[2019-10-08] MEDS: SIMETHICONE 80 MG TAB.CHEW GT SCH ×3 (08:28→17:49)
[2019-10-08] MEDS: SERTRALINE HCL 50 MG TABLET GT SCH (08:28)
[2019-10-08] MEDS: TRIAMCINOLONE ACET 0.1% CREAM 15 GM TUBE TP SCH ×2 (08:28→21:22)
[2019-10-08 20:00] VITALS: BP 139/93
[2019-10-08] MEDS: ASCORBIC ACID 500 MG TABLET GT SCH (21:21)
[2019-10-09] MEDS: GLUCERNA 1.2 1000ML LIQUID GT PRN (03:13)
[2019-10-09] MEDS: MULTIVIT, IRON, MIN NO. 8, FA TABLET GT SCH (06:32)
[2019-10-09] MEDS: OMEPRAZOLE 20 MG CAPSULE.DR GT SCH (06:32)
[2019-10-09 07:39] VITALS: BP 129/81
[2019-10-09] MEDS: HYDROGEN PEROXIDE 3% 118 ML BOTTLE TP SCH ×2 (07:50→21:20)
[2019-10-09] MEDS: METOPROLOL TARTRATE 50 MG TABLET GT SCH ×2 (08:54→21:06)
[2019-10-09] MEDS: BACLOFEN 20 MG TABLET GT SCH ×4 (08:54→21:05)
[2019-10-09] MEDS: ACIDOPHILUS/BULGARICUS CHEW TAB GT SCH ×2 (08:54→21:05)
[2019-10-09] MEDS: SIMETHICONE 80 MG TAB.CHEW GT SCH ×3 (08:55→17:57)
[2019-10-09] MEDS: Z GUARD REMEDY PASTE 57 GM TUBE TOP SCH ×2 (08:55→21:06)
[2019-10-09] MEDS: TRIAMCINOLONE ACET 0.1% CREAM 15 GM TUBE TP SCH ×2 (08:55→21:09)
[2019-10-09] MEDS: KETOCONAZOLE 2% SHAMPOO 120 ML BOTTLE TP SCH (08:55)
[2019-10-09] MEDS: SERTRALINE HCL 50 MG TABLET GT SCH (08:55)
[2019-10-09 20:00] VITALS: BP 121/87
[2019-10-09] MEDS: ASCORBIC ACID 500 MG TABLET GT SCH (21:06)
[2019-10-10] MEDS: GLUCERNA 1.2 1000ML LIQUID GT PRN (03:05)
[2019-10-10] MEDS: OMEPRAZOLE 20 MG CAPSULE.DR GT SCH (05:51)
[2019-10-10 07:55] VITALS: BP 127/87
[2019-10-10] MEDS: HYDROGEN PEROXIDE 3% 118 ML BOTTLE TP SCH ×2 (09:00→21:05)
[2019-10-10] MEDS: ACIDOPHILUS/BULGARICUS CHEW TAB GT SCH ×2 (09:14→21:49)
[2019-10-10] MEDS: SIMETHICONE 80 MG TAB.CHEW GT SCH ×3 (09:14→17:26)
[2019-10-10] MEDS: METOPROLOL TARTRATE 50 MG TABLET GT SCH ×2 (09:14→21:49)
[2019-10-10] MEDS: BACLOFEN 20 MG TABLET GT SCH ×4 (09:14→21:49)
[2019-10-10] MEDS: Z GUARD REMEDY PASTE 57 GM TUBE TOP SCH ×2 (09:15→21:49)
[2019-10-10] MEDS: TRIAMCINOLONE ACET 0.1% CREAM 15 GM TUBE TP SCH ×2 (09:15→21:49)
[2019-10-10] MEDS: SERTRALINE HCL 50 MG TABLET GT SCH (09:15)
[2019-10-10 20:15] VITALS: BP 128/75
[2019-10-10] MEDS: ASCORBIC ACID 500 MG TABLET GT SCH (21:49)
[2019-10-11] MEDS: GLUCERNA 1.2 1000ML LIQUID GT PRN (03:11)
[2019-10-11] MEDS: MULTIVIT, IRON, MIN NO. 8, FA TABLET GT SCH (05:37)
[2019-10-11] MEDS: OMEPRAZOLE 20 MG CAPSULE.DR GT SCH (05:37)
[2019-10-11 07:58] VITALS: BP 123/78
[2019-10-11] MEDS: HYDROGEN PEROXIDE 3% 118 ML BOTTLE TP SCH ×2 (08:50→21:29)
[2019-10-11] MEDS: BACLOFEN 20 MG TABLET GT SCH ×4 (09:07→20:57)
[2019-10-11] MEDS: ACIDOPHILUS/BULGARICUS CHEW TAB GT SCH ×2 (09:07→20:57)
[2019-10-11] MEDS: SIMETHICONE 80 MG TAB.CHEW GT SCH ×3 (09:08→16:35)
[2019-10-11] MEDS: TRIAMCINOLONE ACET 0.1% CREAM 15 GM TUBE TP SCH ×2 (09:08→20:58)
[2019-10-11] MEDS: Z GUARD REMEDY PASTE 57 GM TUBE TOP SCH ×2 (09:08→20:58)
[2019-10-11] MEDS: METOPROLOL TARTRATE 50 MG TABLET GT SCH ×2 (09:08→20:57)
[2019-10-11] MEDS: SERTRALINE HCL 50 MG TABLET GT SCH (09:08)
[2019-10-11 20:04] VITALS: BP 121/73
[2019-10-11] MEDS: ASCORBIC ACID 500 MG TABLET GT SCH (20:58)
[2019-10-12] MEDS: GLUCERNA 1.2 1000ML LIQUID GT PRN (01:49)
[2019-10-12] MEDS: OMEPRAZOLE 20 MG CAPSULE.DR GT SCH (05:17)
[2019-10-12 08:07] VITALS: BP_SYST 126; BP_SYST 136; BP_DIAS 50; BP_DIAS 80
[2019-10-12] MEDS: SERTRALINE HCL 50 MG TABLET GT SCH (08:39)
[2019-10-12] MEDS: ACIDOPHILUS/BULGARICUS CHEW TAB GT SCH ×2 (08:39→21:40)
[2019-10-12] MEDS: BACLOFEN 20 MG TABLET GT SCH ×4 (08:39→21:40)
[2019-10-12] MEDS: SIMETHICONE 80 MG TAB.CHEW GT SCH ×3 (08:39→17:25)
[2019-10-12] MEDS: METOPROLOL TARTRATE 50 MG TABLET GT SCH ×2 (08:39→21:41)
[2019-10-12] MEDS: TRIAMCINOLONE ACET 0.1% CREAM 15 GM TUBE TP SCH ×2 (08:39→21:41)
[2019-10-12] MEDS: Z GUARD REMEDY PASTE 57 GM TUBE TOP SCH ×2 (08:39→21:41)
[2019-10-12] MEDS: HYDROGEN PEROXIDE 3% 118 ML BOTTLE TP SCH ×2 (09:10→21:04)
[2019-10-12 20:09] VITALS: BP 122/83
[2019-10-12] MEDS: ASCORBIC ACID 500 MG TABLET GT SCH (21:41)
[2019-10-13] MEDS: GLUCERNA 1.2 1000ML LIQUID GT PRN (02:49)
[2019-10-13] MEDS: OMEPRAZOLE 20 MG CAPSULE.DR GT SCH (05:51)
[2019-10-13] MEDS: MULTIVIT, IRON, MIN NO. 8, FA TABLET GT SCH (05:51)
[2019-10-13 07:48] VITALS: BP 137/87
[2019-10-13] MEDS: HYDROGEN PEROXIDE 3% 118 ML BOTTLE TP SCH ×2 (08:25→21:35)
[2019-10-13] MEDS: BACLOFEN 20 MG TABLET GT SCH ×4 (08:31→21:16)
[2019-10-13] MEDS: ACIDOPHILUS/BULGARICUS CHEW TAB GT SCH ×2 (08:31→21:16)
[2019-10-13] MEDS: SERTRALINE HCL 50 MG TABLET GT SCH (08:32)
[2019-10-13] MEDS: KETOCONAZOLE 2% SHAMPOO 120 ML BOTTLE TP SCH (08:32)
[2019-10-13] MEDS: METOPROLOL TARTRATE 50 MG TABLET GT SCH ×2 (08:32→21:16)
[2019-10-13] MEDS: TRIAMCINOLONE ACET 0.1% CREAM 15 GM TUBE TP SCH ×2 (08:32→21:17)
[2019-10-13] MEDS: SIMETHICONE 80 MG TAB.CHEW GT SCH ×3 (08:32→16:06)
[2019-10-13] MEDS: Z GUARD REMEDY PASTE 57 GM TUBE TOP SCH ×2 (08:32→21:17)
[2019-10-13 20:00] VITALS: BP 115/81
[2019-10-13] MEDS: ASCORBIC ACID 500 MG TABLET GT SCH (21:16)
[2019-10-14] MEDS: GLUCERNA 1.2 1000ML LIQUID GT PRN (03:33)
[2019-10-14] MEDS: OMEPRAZOLE 20 MG CAPSULE.DR GT SCH (05:44)
[2019-10-14 07:28] LABS: BASOPHILS # (AUTO) 0.1 K/uL (0.0-8.0); EOSINOPHILS # (AUTO) 0.2 K/uL (0.0-0.7); EOSINOPHILS % (AUTO) 3.6 % (0.0-7.0); HEMATOCRIT 32.3 % (31.2-41.9); LYMPHOCYTES # (AUTO) 2.3 K/uL (20.0-40.0); LYMPHOCYTES % (AUTO) 37.3 % (20.5-51.5); MEAN CORPUSCULAR HEMOGLOBIN 21.7 uug (24.7-32.8); MEAN CORPUSCULAR HGB CONC 31 g/dL (32.3-35.6); MEAN CORPUSCULAR VOLUME 69.9 fL (75.5-95.3); MONOCYTES # (AUTO) 0.7 K/uL (2.0-10.0); MONOCYTES % (AUTO) 11.1 % (0.0-11.0); NEUTROPHILS # (AUTO) 2.8 K/uL (1.8-8.9); PLATELET COUNT (AUTO) 338 K/uL (179-408); RED BLOOD CELL COUNT(AUTO) 4.62 MIL/uL (3.63-4.92)
[2019-10-14 07:42] LABS: CREATININE 0.8 mg/dL (0.6-1.3); POTASSIUM 4.2 mmol/L (3.5-5.1)
[2019-10-14 07:43] VITALS: BP 109/70
[2019-10-14 08:29] LABS: BAND % (MANUAL) 1 % (0-10); BASOPHILS % (MANUAL) 1 % (0-2); EOSINOPHILS % (MANUAL) 3 % (0-8); LYMPHOCYTES % (MANUAL) 43 % (20-40); MONOCYTES % (MANUAL) 11 % (2-10); NEUTROPHILS % (MANUAL) 41 % (42-75)
[2019-10-14] MEDS: HYDROGEN PEROXIDE 3% 118 ML BOTTLE TP SCH ×2 (08:46→21:24)
[2019-10-14] MEDS: ACIDOPHILUS/BULGARICUS CHEW TAB GT SCH ×2 (08:56→20:46)
[2019-10-14] MEDS: BACLOFEN 20 MG TABLET GT SCH ×4 (08:57→20:46)
[2019-10-14] MEDS: METOPROLOL TARTRATE 50 MG TABLET GT SCH ×2 (08:57→20:51)
[2019-10-14] MEDS: SIMETHICONE 80 MG TAB.CHEW GT SCH ×3 (08:58→17:24)
[2019-10-14] MEDS: SERTRALINE HCL 50 MG TABLET GT SCH (08:58)
[2019-10-14] MEDS: Z GUARD REMEDY PASTE 57 GM TUBE TOP SCH ×2 (08:58→20:52)
[2019-10-14] MEDS: TRIAMCINOLONE ACET 0.1% CREAM 15 GM TUBE TP SCH ×2 (09:00→20:53)
[2019-10-14 19:50] VITALS: BP 126/88
[2019-10-14] MEDS: ASCORBIC ACID 500 MG TABLET GT SCH (20:51)
[2019-10-15] MEDS: GLUCERNA 1.2 1000ML LIQUID GT PRN (01:07)
[2019-10-15] MEDS: OMEPRAZOLE 20 MG CAPSULE.DR GT SCH (05:46)
[2019-10-15] MEDS: MULTIVIT, IRON, MIN NO. 8, FA TABLET GT SCH (05:46)
[2019-10-15 07:59] VITALS: BP 140/84
[2019-10-15] MEDS: BACLOFEN 20 MG TABLET GT SCH ×4 (09:15→20:42)
[2019-10-15] MEDS: ACIDOPHILUS/BULGARICUS CHEW TAB GT SCH ×2 (09:15→20:42)
[2019-10-15] MEDS: HYDROGEN PEROXIDE 3% 118 ML BOTTLE TP SCH ×2 (09:16→21:19)
[2019-10-15] MEDS: METOPROLOL TARTRATE 50 MG TABLET GT SCH ×2 (09:16→20:42)
[2019-10-15] MEDS: TRIAMCINOLONE ACET 0.1% CREAM 15 GM TUBE TP SCH ×2 (09:17→20:43)
[2019-10-15] MEDS: SERTRALINE HCL 50 MG TABLET GT SCH (09:17)
[2019-10-15] MEDS: SIMETHICONE 80 MG TAB.CHEW GT SCH ×3 (09:17→17:45)
[2019-10-15] MEDS: Z GUARD REMEDY PASTE 57 GM TUBE TOP SCH ×2 (09:17→20:43)
--- NOTE | 2019-10-15 17:07 | NUR ---
New orders to do the Baseline [facility] Covid 19 test requirement.
[2019-10-15 19:50] VITALS: BP 130/83
[2019-10-15] MEDS: ASCORBIC ACID 500 MG TABLET GT SCH (20:42)
[2019-10-16] MEDS: GLUCERNA 1.2 1000ML LIQUID GT PRN (04:41)
[2019-10-16] MEDS: OMEPRAZOLE 20 MG CAPSULE.DR GT SCH (05:52)
[2019-10-16] MEDS: HYDROGEN PEROXIDE 3% 118 ML BOTTLE TP SCH ×2 (07:11→21:48)
[2019-10-16 07:37] VITALS: BP 127/73
[2019-10-16] MEDS: ACIDOPHILUS/BULGARICUS CHEW TAB GT SCH ×2 (08:22→20:30)
[2019-10-16] MEDS: BACLOFEN 20 MG TABLET GT SCH ×4 (08:22→20:30)
[2019-10-16] MEDS: TRIAMCINOLONE ACET 0.1% CREAM 15 GM TUBE TP SCH ×2 (08:24→20:36)
[2019-10-16] MEDS: METOPROLOL TARTRATE 50 MG TABLET GT SCH ×2 (08:24→20:34)
[2019-10-16] MEDS: Z GUARD REMEDY PASTE 57 GM TUBE TOP SCH ×2 (08:24→20:36)
[2019-10-16] MEDS: SIMETHICONE 80 MG TAB.CHEW GT SCH ×3 (08:24→17:40)
[2019-10-16] MEDS: SERTRALINE HCL 50 MG TABLET GT SCH (08:24)
[2019-10-16] MEDS: KETOCONAZOLE 2% SHAMPOO 120 ML BOTTLE TP SCH (08:25)
[2019-10-16 20:00] VITALS: BP 125/83
[2019-10-16] MEDS: ASCORBIC ACID 500 MG TABLET GT SCH (20:34)
[2019-10-17] MEDS: GLUCERNA 1.2 1000ML LIQUID GT PRN (04:19)
[2019-10-17] MEDS: OMEPRAZOLE 20 MG CAPSULE.DR GT SCH (05:55)
[2019-10-17] MEDS: MULTIVIT, IRON, MIN NO. 8, FA TABLET GT SCH (05:55)
[2019-10-17 07:54] VITALS: BP 137/82
[2019-10-17] MEDS: METOPROLOL TARTRATE 50 MG TABLET GT SCH ×2 (08:22→20:42)
[2019-10-17] MEDS: BACLOFEN 20 MG TABLET GT SCH ×4 (08:22→20:42)
[2019-10-17] MEDS: ACIDOPHILUS/BULGARICUS CHEW TAB GT SCH ×2 (08:22→20:42)
[2019-10-17] MEDS: SERTRALINE HCL 50 MG TABLET GT SCH (08:24)
[2019-10-17] MEDS: SIMETHICONE 80 MG TAB.CHEW GT SCH ×3 (08:24→17:00)
[2019-10-17] MEDS: Z GUARD REMEDY PASTE 57 GM TUBE TOP SCH ×2 (08:24→20:43)
[2019-10-17] MEDS: TRIAMCINOLONE ACET 0.1% CREAM 15 GM TUBE TP SCH ×2 (08:25→20:43)
[2019-10-17] MEDS: HYDROGEN PEROXIDE 3% 118 ML BOTTLE TP SCH ×2 (08:42→21:50)
--- NOTE | 2019-10-17 18:00 | NUR ---
PT. IS NEGATIVE FOR COVID 19.
[2019-10-17] MEDS: ASCORBIC ACID 500 MG TABLET GT SCH (20:43)
[2019-10-17 22:46] VITALS: BP 124/82
[2019-10-18] MEDS: GLUCERNA 1.2 1000ML LIQUID GT PRN ×2 (01:31→23:01)
[2019-10-18] MEDS: OMEPRAZOLE 20 MG CAPSULE.DR GT SCH (05:18)
[2019-10-18 07:41] VITALS: BP 121/78
[2019-10-18] MEDS: TRIAMCINOLONE ACET 0.1% CREAM 15 GM TUBE TP SCH ×2 (08:14→21:01)
[2019-10-18] MEDS: BACLOFEN 20 MG TABLET GT SCH ×4 (08:14→20:55)
[2019-10-18] MEDS: Z GUARD REMEDY PASTE 57 GM TUBE TOP SCH ×2 (08:14→21:01)
[2019-10-18] MEDS: ACIDOPHILUS/BULGARICUS CHEW TAB GT SCH ×2 (08:14→20:55)
[2019-10-18] MEDS: SIMETHICONE 80 MG TAB.CHEW GT SCH ×3 (08:14→17:15)
[2019-10-18] MEDS: SERTRALINE HCL 50 MG TABLET GT SCH (08:14)
[2019-10-18] MEDS: METOPROLOL TARTRATE 50 MG TABLET GT SCH ×2 (08:14→20:55)
[2019-10-18] MEDS: HYDROGEN PEROXIDE 3% 118 ML BOTTLE TP SCH ×2 (09:47→21:45)
[2019-10-18] MEDS: ASCORBIC ACID 500 MG TABLET GT SCH (21:01)
[2019-10-18 22:00] VITALS: BP 126/83
[2019-10-19] MEDS: OMEPRAZOLE 20 MG CAPSULE.DR GT SCH (05:34)
[2019-10-19] MEDS: MULTIVIT, IRON, MIN NO. 8, FA TABLET GT SCH (05:34)
[2019-10-19 07:48] VITALS: BP 139/93
[2019-10-19] MEDS: HYDROGEN PEROXIDE 3% 118 ML BOTTLE TP SCH ×2 (08:47→21:26)
[2019-10-19] MEDS: ACIDOPHILUS/BULGARICUS CHEW TAB GT SCH ×2 (09:08→20:38)
[2019-10-19] MEDS: BACLOFEN 20 MG TABLET GT SCH ×4 (09:08→20:38)
[2019-10-19] MEDS: SIMETHICONE 80 MG TAB.CHEW GT SCH ×3 (09:09→16:59)
[2019-10-19] MEDS: METOPROLOL TARTRATE 50 MG TABLET GT SCH ×2 (09:09→20:39)
[2019-10-19] MEDS: SERTRALINE HCL 50 MG TABLET GT SCH (09:10)
[2019-10-19] MEDS: Z GUARD REMEDY PASTE 57 GM TUBE TOP SCH ×2 (09:10→20:39)
[2019-10-19] MEDS: TRIAMCINOLONE ACET 0.1% CREAM 15 GM TUBE TP SCH ×2 (09:10→20:39)
[2019-10-19] MEDS: ASCORBIC ACID 500 MG TABLET GT SCH (20:39)
[2019-10-19 21:57] VITALS: BP 133/85
[2019-10-20] MEDS: GLUCERNA 1.2 1000ML LIQUID GT PRN (01:18)
[2019-10-20] MEDS: OMEPRAZOLE 20 MG CAPSULE.DR GT SCH (05:20)
[2019-10-20] MEDS: HYDROGEN PEROXIDE 3% 118 ML BOTTLE TP SCH ×2 (07:10→21:43)
[2019-10-20 07:22] VITALS: BP 141/80
[2019-10-20] MEDS: ACIDOPHILUS/BULGARICUS CHEW TAB GT SCH ×2 (08:04→20:48)
[2019-10-20] MEDS: BACLOFEN 20 MG TABLET GT SCH ×4 (08:04→20:48)
[2019-10-20] MEDS: SIMETHICONE 80 MG TAB.CHEW GT SCH ×3 (08:05→16:32)
[2019-10-20] MEDS: Z GUARD REMEDY PASTE 57 GM TUBE TOP SCH ×2 (08:05→20:49)
[2019-10-20] MEDS: METOPROLOL TARTRATE 50 MG TABLET GT SCH ×2 (08:05→20:48)
[2019-10-20] MEDS: SERTRALINE HCL 50 MG TABLET GT SCH (08:05)
[2019-10-20] MEDS: TRIAMCINOLONE ACET 0.1% CREAM 15 GM TUBE TP SCH ×2 (08:06→20:49)
[2019-10-20] MEDS: KETOCONAZOLE 2% SHAMPOO 120 ML BOTTLE TP SCH (08:06)
--- NOTE | 2019-10-20 12:45 | NUR ---
SEEN BY GLENN Bolaños AND WITH NNO.
[2019-10-20 20:10] VITALS: BP 128/82
[2019-10-20] MEDS: ASCORBIC ACID 500 MG TABLET GT SCH (20:48)
[2019-10-21] MEDS: GLUCERNA 1.2 1000ML LIQUID GT PRN (02:27)
[2019-10-21] MEDS: OMEPRAZOLE 20 MG CAPSULE.DR GT SCH (05:20)
[2019-10-21] MEDS: MULTIVIT, IRON, MIN NO. 8, FA TABLET GT SCH (05:52)
[2019-10-21 08:17] VITALS: BP 132/90
[2019-10-21] MEDS: METOPROLOL TARTRATE 50 MG TABLET GT SCH ×2 (08:42→21:21)
[2019-10-21] MEDS: ACIDOPHILUS/BULGARICUS CHEW TAB GT SCH ×2 (08:42→21:20)
[2019-10-21] MEDS: BACLOFEN 20 MG TABLET GT SCH ×4 (08:42→21:20)
[2019-10-21] MEDS: SERTRALINE HCL 50 MG TABLET GT SCH (08:43)
[2019-10-21] MEDS: TRIAMCINOLONE ACET 0.1% CREAM 15 GM TUBE TP SCH ×2 (08:43→21:21)
[2019-10-21] MEDS: SIMETHICONE 80 MG TAB.CHEW GT SCH ×3 (08:43→17:00)
[2019-10-21] MEDS: Z GUARD REMEDY PASTE 57 GM TUBE TOP SCH ×2 (08:43→21:21)
[2019-10-21] MEDS: HYDROGEN PEROXIDE 3% 118 ML BOTTLE TP SCH ×2 (08:57→21:00)
[2019-10-21 20:27] VITALS: BP 130/80
[2019-10-21] MEDS: ASCORBIC ACID 500 MG TABLET GT SCH (21:21)
[2019-10-22] MEDS: OMEPRAZOLE 20 MG CAPSULE.DR GT SCH (05:01)
[2019-10-22] MEDS: GLUCERNA 1.2 1000ML LIQUID GT PRN (05:01)
[2019-10-22 07:49] VITALS: BP 139/96
[2019-10-22] MEDS: ACETAMINOPHEN 650 MG/20 ML UDC- SA PATIENTS-PAIN ONLY GT PRN (08:00)
[2019-10-22] MEDS: HYDROGEN PEROXIDE 3% 118 ML BOTTLE TP SCH ×2 (09:00→21:47)
[2019-10-22] MEDS: ACIDOPHILUS/BULGARICUS CHEW TAB GT SCH ×2 (09:32→21:27)
[2019-10-22] MEDS: BACLOFEN 20 MG TABLET GT SCH ×4 (09:32→21:27)
[2019-10-22] MEDS: METOPROLOL TARTRATE 50 MG TABLET GT SCH ×2 (09:33→21:28)
[2019-10-22] MEDS: SIMETHICONE 80 MG TAB.CHEW GT SCH ×3 (09:33→17:10)
[2019-10-22] MEDS: SERTRALINE HCL 50 MG TABLET GT SCH (09:33)
[2019-10-22] MEDS: Z GUARD REMEDY PASTE 57 GM TUBE TOP SCH ×2 (09:33→21:29)
[2019-10-22] MEDS: TRIAMCINOLONE ACET 0.1% CREAM 15 GM TUBE TP SCH ×2 (09:33→21:29)
[2019-10-22 20:00] VITALS: BP 110/73
[2019-10-22] MEDS: ASCORBIC ACID 500 MG TABLET GT SCH (21:28)
[2019-10-23] MEDS: GLUCERNA 1.2 1000ML LIQUID GT PRN (04:00)
[2019-10-23] MEDS: MULTIVIT, IRON, MIN NO. 8, FA TABLET GT SCH (06:08)
[2019-10-23] MEDS: OMEPRAZOLE 20 MG CAPSULE.DR GT SCH (06:08)
[2019-10-23 07:46] VITALS: BP 124/67
[2019-10-23] MEDS: BACLOFEN 20 MG TABLET GT SCH ×4 (08:42→21:22)
[2019-10-23] MEDS: ACIDOPHILUS/BULGARICUS CHEW TAB GT SCH ×2 (08:42→21:22)
[2019-10-23] MEDS: SIMETHICONE 80 MG TAB.CHEW GT SCH ×3 (08:43→16:21)
[2019-10-23] MEDS: METOPROLOL TARTRATE 50 MG TABLET GT SCH ×2 (08:43→21:23)
[2019-10-23] MEDS: SERTRALINE HCL 50 MG TABLET GT SCH (08:43)
[2019-10-23] MEDS: TRIAMCINOLONE ACET 0.1% CREAM 15 GM TUBE TP SCH ×2 (08:44→21:23)
[2019-10-23] MEDS: Z GUARD REMEDY PASTE 57 GM TUBE TOP SCH ×2 (08:44→21:23)
[2019-10-23] MEDS: KETOCONAZOLE 2% SHAMPOO 120 ML BOTTLE TP SCH (08:44)
[2019-10-23] MEDS: HYDROGEN PEROXIDE 3% 118 ML BOTTLE TP SCH ×2 (09:00→21:17)
[2019-10-23 20:09] VITALS: BP 131/82
[2019-10-23] MEDS: ASCORBIC ACID 500 MG TABLET GT SCH (21:23)
[2019-10-24] MEDS: GLUCERNA 1.2 1000ML LIQUID GT PRN (04:00)
[2019-10-24] MEDS: OMEPRAZOLE 20 MG CAPSULE.DR GT SCH (06:09)
[2019-10-24 07:48] VITALS: BP 134/59
[2019-10-24] MEDS: ACIDOPHILUS/BULGARICUS CHEW TAB GT SCH ×2 (09:04→21:33)
[2019-10-24] MEDS: BACLOFEN 20 MG TABLET GT SCH ×4 (09:04→21:33)
[2019-10-24] MEDS: SIMETHICONE 80 MG TAB.CHEW GT SCH ×3 (09:05→18:00)
[2019-10-24] MEDS: METOPROLOL TARTRATE 50 MG TABLET GT SCH ×2 (09:05→21:33)
[2019-10-24] MEDS: SERTRALINE HCL 50 MG TABLET GT SCH (09:05)
[2019-10-24] MEDS: Z GUARD REMEDY PASTE 57 GM TUBE TOP SCH ×2 (09:05→21:33)
[2019-10-24] MEDS: TRIAMCINOLONE ACET 0.1% CREAM 15 GM TUBE TP SCH ×2 (09:05→21:34)
[2019-10-24] MEDS: HYDROGEN PEROXIDE 3% 118 ML BOTTLE TP SCH ×2 (09:58→21:37)
[2019-10-24 20:03] VITALS: BP 129/84
[2019-10-24] MEDS: ASCORBIC ACID 500 MG TABLET GT SCH (21:33)
[2019-10-25] MEDS: GLUCERNA 1.2 1000ML LIQUID GT PRN (01:58)
[2019-10-25] MEDS: OMEPRAZOLE 20 MG CAPSULE.DR GT SCH (05:43)
[2019-10-25] MEDS: MULTIVIT, IRON, MIN NO. 8, FA TABLET GT SCH (05:43)
[2019-10-25 07:58] VITALS: BP 123/71
[2019-10-25] MEDS: HYDROGEN PEROXIDE 3% 118 ML BOTTLE TP SCH ×2 (09:10→21:29)
[2019-10-25] MEDS: ACIDOPHILUS/BULGARICUS CHEW TAB GT SCH ×2 (09:13→20:15)
[2019-10-25] MEDS: BACLOFEN 20 MG TABLET GT SCH ×4 (09:14→20:15)
[2019-10-25] MEDS: Z GUARD REMEDY PASTE 57 GM TUBE TOP SCH ×2 (09:15→20:15)
[2019-10-25] MEDS: SERTRALINE HCL 50 MG TABLET GT SCH (09:15)
[2019-10-25] MEDS: TRIAMCINOLONE ACET 0.1% CREAM 15 GM TUBE TP SCH ×2 (09:15→20:16)
[2019-10-25] MEDS: SIMETHICONE 80 MG TAB.CHEW GT SCH ×3 (09:15→17:39)
[2019-10-25] MEDS: METOPROLOL TARTRATE 50 MG TABLET GT SCH ×2 (09:15→20:15)
[2019-10-25 19:49] VITALS: BP 119/77
[2019-10-25] MEDS: ASCORBIC ACID 500 MG TABLET GT SCH (20:15)
[2019-10-26] MEDS: OMEPRAZOLE 20 MG CAPSULE.DR GT SCH (05:30)
[2019-10-26] MEDS: GLUCERNA 1.2 1000ML LIQUID GT PRN (05:31)
[2019-10-26] MEDS: HYDROGEN PEROXIDE 3% 118 ML BOTTLE TP SCH ×2 (07:19→21:09)
[2019-10-26 07:45] VITALS: BP 108/68
[2019-10-26] MEDS: ACIDOPHILUS/BULGARICUS CHEW TAB GT SCH ×2 (09:02→20:58)
[2019-10-26] MEDS: METOPROLOL TARTRATE 50 MG TABLET GT SCH ×2 (09:03→20:58)
[2019-10-26] MEDS: BACLOFEN 20 MG TABLET GT SCH ×4 (09:03→20:58)
[2019-10-26] MEDS: SIMETHICONE 80 MG TAB.CHEW GT SCH ×3 (09:03→17:59)
[2019-10-26] MEDS: TRIAMCINOLONE ACET 0.1% CREAM 15 GM TUBE TP SCH ×2 (09:04→20:59)
[2019-10-26] MEDS: SERTRALINE HCL 50 MG TABLET GT SCH (09:04)
[2019-10-26] MEDS: Z GUARD REMEDY PASTE 57 GM TUBE TOP SCH ×2 (09:04→20:59)
[2019-10-26 20:00] VITALS: BP 122/86
[2019-10-26] MEDS: ASCORBIC ACID 500 MG TABLET GT SCH (20:59)
[2019-10-27] MEDS: OMEPRAZOLE 20 MG CAPSULE.DR GT SCH (05:56)
[2019-10-27] MEDS: MULTIVIT, IRON, MIN NO. 8, FA TABLET GT SCH (05:57)
[2019-10-27] MEDS: GLUCERNA 1.2 1000ML LIQUID GT PRN (07:01)
[2019-10-27 07:39] VITALS: BP 120/83
[2019-10-27] MEDS: ACIDOPHILUS/BULGARICUS CHEW TAB GT SCH ×2 (08:36→21:30)
[2019-10-27] MEDS: BACLOFEN 20 MG TABLET GT SCH ×4 (08:36→21:30)
[2019-10-27] MEDS: METOPROLOL TARTRATE 50 MG TABLET GT SCH ×2 (08:37→21:30)
[2019-10-27] MEDS: SIMETHICONE 80 MG TAB.CHEW GT SCH ×3 (08:37→17:20)
[2019-10-27] MEDS: SERTRALINE HCL 50 MG TABLET GT SCH (08:37)
[2019-10-27] MEDS: TRIAMCINOLONE ACET 0.1% CREAM 15 GM TUBE TP SCH ×2 (08:38→21:31)
[2019-10-27] MEDS: KETOCONAZOLE 2% SHAMPOO 120 ML BOTTLE TP SCH (08:38)
[2019-10-27] MEDS: Z GUARD REMEDY PASTE 57 GM TUBE TOP SCH ×2 (08:38→21:31)
[2019-10-27] MEDS: HYDROGEN PEROXIDE 3% 118 ML BOTTLE TP SCH ×2 (08:50→21:18)
--- NOTE | 2019-10-27 16:41 | NUR ---
KATHRINE called patient's brother Frank [phone] to check in on him and provide a status update on the subacute unit. Frank was available and receptive to speaking with this KATHRINE. Frank stated he and his mother (patient's mother) are both doing well. Frank asked about a status update on the subacute unit, and KATHRINE informed Frank that the patient continues to remain safe, but that the visitation restrictions continue to stay in place at this time. Frank expressed understanding and thanked this SW and the staff for keeping the patient safe. Frank stated not having any concerns at this time, and thanked KATHRINE for calling and checking in. KATHRINE will continue to check in on patient's family, as needed.
[2019-10-27] MEDS: ASCORBIC ACID 500 MG TABLET GT SCH (21:30)
[2019-10-28] MEDS: GLUCERNA 1.2 1000ML LIQUID GT PRN (00:28)
[2019-10-28] MEDS: OMEPRAZOLE 20 MG CAPSULE.DR GT SCH (05:18)
[2019-10-28 07:47] VITALS: BP 124/68
[2019-10-28] MEDS: METOPROLOL TARTRATE 50 MG TABLET GT SCH ×2 (08:27→20:36)
[2019-10-28] MEDS: SERTRALINE HCL 50 MG TABLET GT SCH (08:27)
[2019-10-28] MEDS: BACLOFEN 20 MG TABLET GT SCH ×4 (08:27→20:36)
[2019-10-28] MEDS: SIMETHICONE 80 MG TAB.CHEW GT SCH ×3 (08:27→16:30)
[2019-10-28] MEDS: Z GUARD REMEDY PASTE 57 GM TUBE TOP SCH ×2 (08:27→20:38)
[2019-10-28] MEDS: TRIAMCINOLONE ACET 0.1% CREAM 15 GM TUBE TP SCH (08:27)
[2019-10-28] MEDS: ACIDOPHILUS/BULGARICUS CHEW TAB GT SCH ×2 (08:27→20:36)
[2019-10-28] MEDS: HYDROGEN PEROXIDE 3% 118 ML BOTTLE TP SCH ×2 (09:00→21:28)
[2019-10-28 20:00] VITALS: BP 135/86
[2019-10-28] MEDS: ASCORBIC ACID 500 MG TABLET GT SCH (20:37)
[2019-10-29] MEDS: GLUCERNA 1.2 1000ML LIQUID GT PRN (01:25)
[2019-10-29] MEDS: OMEPRAZOLE 20 MG CAPSULE.DR GT SCH (05:10)
[2019-10-29] MEDS: MULTIVIT, IRON, MIN NO. 8, FA TABLET GT SCH (05:33)
[2019-10-29 07:18] LABS: BASOPHILS # (AUTO) 0.1 K/uL (0.0-8.0); BASOPHILS % (AUTO) 1.3 % (0.0-2.0); EOSINOPHILS # (AUTO) 0.4 K/uL (0.0-0.7); EOSINOPHILS % (AUTO) 4.3 % (0.0-7.0); HEMATOCRIT 34.9 % (31.2-41.9); HEMOGLOBIN 10.8 g/dL (10.9-14.3); LYMPHOCYTES # (AUTO) 3.6 K/uL (20.0-40.0); LYMPHOCYTES % (AUTO) 37.7 % (20.5-51.5); MEAN CORPUSCULAR HEMOGLOBIN 21.6 uug (24.7-32.8); MEAN CORPUSCULAR HGB CONC 31 g/dL (32.3-35.6); MEAN CORPUSCULAR VOLUME 69.6 fL (75.5-95.3); MONOCYTES # (AUTO) 0.9 K/uL (2.0-10.0); NEUTROPHILS # (AUTO) 4.6 K/uL (1.8-8.9); NEUTROPHILS % (AUTO) 47.7 % (38.5-71.5); RED BLOOD CELL COUNT(AUTO) 5.01 MIL/uL (3.63-4.92)
[2019-10-29 07:53] LABS: WHITE BLOOD COUNT (AUTO) 9.6 K/uL (3.8-11.8)
[2019-10-29 07:55] LABS: PLATELET COUNT (AUTO) 316 K/uL (179-408)
[2019-10-29 07:59] VITALS: BP 121/88
[2019-10-29] MEDS: ACIDOPHILUS/BULGARICUS CHEW TAB GT SCH ×2 (08:38→21:27)
[2019-10-29] MEDS: BACLOFEN 20 MG TABLET GT SCH ×4 (08:39→21:27)
[2019-10-29] MEDS: SERTRALINE HCL 50 MG TABLET GT SCH (08:41)
[2019-10-29] MEDS: METOPROLOL TARTRATE 50 MG TABLET GT SCH ×2 (08:41→21:27)
[2019-10-29] MEDS: Z GUARD REMEDY PASTE 57 GM TUBE TOP SCH ×2 (08:41→21:27)
[2019-10-29] MEDS: SIMETHICONE 80 MG TAB.CHEW GT SCH ×3 (08:41→17:58)
[2019-10-29] MEDS: HYDROGEN PEROXIDE 3% 118 ML BOTTLE TP SCH ×2 (09:10→21:44)
[2019-10-29 09:14] LABS: BAND % (MANUAL) 2 % (0-10); EOSINOPHILS % (MANUAL) 2 % (0-8); LYMPHOCYTES % (MANUAL) 32 % (20-40); MONOCYTES % (MANUAL) 10 % (2-10); MYELOCYTES % 2 % (0-0); NEUTROPHILS % (MANUAL) 52 % (42-75)
[2019-10-29 20:08] VITALS: BP 137/93
[2019-10-29] MEDS: ASCORBIC ACID 500 MG TABLET GT SCH (21:27)
[2019-10-30] MEDS: OMEPRAZOLE 20 MG CAPSULE.DR GT SCH (06:18)
[2019-10-30] MEDS: GLUCERNA 1.2 1000ML LIQUID GT PRN (06:41)
[2019-10-30 08:00] VITALS: BP 122/80
[2019-10-30] MEDS: KETOCONAZOLE 2% SHAMPOO 120 ML BOTTLE TP SCH (09:00)
[2019-10-30] MEDS: ACIDOPHILUS/BULGARICUS CHEW TAB GT SCH ×2 (09:03→21:36)
[2019-10-30] MEDS: BACLOFEN 20 MG TABLET GT SCH ×4 (09:03→21:36)
[2019-10-30] MEDS: METOPROLOL TARTRATE 50 MG TABLET GT SCH ×2 (09:04→21:37)
[2019-10-30] MEDS: SIMETHICONE 80 MG TAB.CHEW GT SCH ×3 (09:05→17:57)
[2019-10-30] MEDS: SERTRALINE HCL 50 MG TABLET GT SCH (09:05)
[2019-10-30] MEDS: Z GUARD REMEDY PASTE 57 GM TUBE TOP SCH ×2 (09:05→21:37)
[2019-10-30] MEDS: HYDROGEN PEROXIDE 3% 118 ML BOTTLE TP SCH ×2 (09:46→21:21)
[2019-10-30 20:14] VITALS: BP 126/76
[2019-10-30] MEDS: ASCORBIC ACID 500 MG TABLET GT SCH (21:37)
[2019-10-31] MEDS: GLUCERNA 1.2 1000ML LIQUID GT PRN (03:27)
[2019-10-31] MEDS: ACETAMINOPHEN 650 MG/20 ML UDC- SA PATIENTS-PAIN ONLY GT PRN (04:06)
[2019-10-31] MEDS: OMEPRAZOLE 20 MG CAPSULE.DR GT SCH (05:28)
[2019-10-31] MEDS: MULTIVIT, IRON, MIN NO. 8, FA TABLET GT SCH (05:31)
[2019-10-31 07:51] VITALS: BP 126/79
[2019-10-31] MEDS: HYDROGEN PEROXIDE 3% 118 ML BOTTLE TP SCH ×2 (08:59→21:20)
[2019-10-31] MEDS: ACIDOPHILUS/BULGARICUS CHEW TAB GT SCH ×2 (09:06→20:45)
[2019-10-31] MEDS: BACLOFEN 20 MG TABLET GT SCH ×4 (09:06→20:45)
[2019-10-31] MEDS: METOPROLOL TARTRATE 50 MG TABLET GT SCH ×2 (09:06→20:45)
[2019-10-31] MEDS: Z GUARD REMEDY PASTE 57 GM TUBE TOP SCH ×2 (09:07→20:45)
[2019-10-31] MEDS: SERTRALINE HCL 50 MG TABLET GT SCH (09:07)
[2019-10-31] MEDS: SIMETHICONE 80 MG TAB.CHEW GT SCH ×3 (09:07→17:41)
[2019-10-31 20:05] VITALS: BP 126/79
[2019-10-31] MEDS: ASCORBIC ACID 500 MG TABLET GT SCH (20:45)
[2019-11-01] MEDS: GLUCERNA 1.2 1000ML LIQUID GT PRN (02:35)
[2019-11-01] MEDS: OMEPRAZOLE 20 MG CAPSULE.DR GT SCH (05:38)
[2019-11-01 07:42] VITALS: BP 110/62
[2019-11-01] MEDS: HYDROGEN PEROXIDE 3% 118 ML BOTTLE TP SCH ×2 (08:43→21:57)
[2019-11-01] MEDS: Z GUARD REMEDY PASTE 57 GM TUBE TOP SCH ×2 (08:52→20:58)
[2019-11-01] MEDS: SIMETHICONE 80 MG TAB.CHEW GT SCH ×3 (08:52→17:09)
[2019-11-01] MEDS: ACIDOPHILUS/BULGARICUS CHEW TAB GT SCH ×2 (08:52→20:57)
[2019-11-01] MEDS: METOPROLOL TARTRATE 50 MG TABLET GT SCH ×2 (08:52→20:58)
[2019-11-01] MEDS: SERTRALINE HCL 50 MG TABLET GT SCH (08:52)
[2019-11-01] MEDS: BACLOFEN 20 MG TABLET GT SCH ×4 (08:52→20:57)
[2019-11-01 20:31] VITALS: BP 135/84
[2019-11-01] MEDS: ASCORBIC ACID 500 MG TABLET GT SCH (20:58)
[2019-11-02] MEDS: GLUCERNA 1.2 1000ML LIQUID GT PRN (04:16)
[2019-11-02] MEDS: OMEPRAZOLE 20 MG CAPSULE.DR GT SCH (05:29)
[2019-11-02] MEDS: MULTIVIT, IRON, MIN NO. 8, FA TABLET GT SCH (05:30)
[2019-11-02 07:48] VITALS: BP 126/76
[2019-11-02] MEDS: HYDROGEN PEROXIDE 3% 118 ML BOTTLE TP SCH ×2 (08:34→21:34)
[2019-11-02] MEDS: SERTRALINE HCL 50 MG TABLET GT SCH (08:51)
[2019-11-02] MEDS: METOPROLOL TARTRATE 50 MG TABLET GT SCH ×2 (08:51→21:13)
[2019-11-02] MEDS: ACIDOPHILUS/BULGARICUS CHEW TAB GT SCH ×2 (08:51→21:12)
[2019-11-02] MEDS: SIMETHICONE 80 MG TAB.CHEW GT SCH ×3 (08:51→16:34)
[2019-11-02] MEDS: BACLOFEN 20 MG TABLET GT SCH ×4 (08:51→21:12)
[2019-11-02] MEDS: Z GUARD REMEDY PASTE 57 GM TUBE TOP SCH ×2 (08:51→21:13)
[2019-11-02 20:30] VITALS: BP 133/89
[2019-11-02] MEDS: ASCORBIC ACID 500 MG TABLET GT SCH (21:13)
[2019-11-03] MEDS: OMEPRAZOLE 20 MG CAPSULE.DR GT SCH (05:39)
[2019-11-03] MEDS: GLUCERNA 1.2 1000ML LIQUID GT PRN (06:43)
[2019-11-03 07:48] VITALS: BP 128/85
[2019-11-03] MEDS: BACLOFEN 20 MG TABLET GT SCH ×4 (09:05→21:22)
[2019-11-03] MEDS: SIMETHICONE 80 MG TAB.CHEW GT SCH ×3 (09:05→17:11)
[2019-11-03] MEDS: ACIDOPHILUS/BULGARICUS CHEW TAB GT SCH ×2 (09:05→21:22)
[2019-11-03] MEDS: KETOCONAZOLE 2% SHAMPOO 120 ML BOTTLE TP SCH (09:05)
[2019-11-03] MEDS: SERTRALINE HCL 50 MG TABLET GT SCH (09:05)
[2019-11-03] MEDS: Z GUARD REMEDY PASTE 57 GM TUBE TOP SCH ×2 (09:05→21:23)
[2019-11-03] MEDS: METOPROLOL TARTRATE 50 MG TABLET GT SCH ×2 (09:05→21:23)
[2019-11-03] MEDS: HYDROGEN PEROXIDE 3% 118 ML BOTTLE TP SCH ×2 (09:26→21:47)
--- NOTE | 2019-11-03 18:24 | NUR ---
SEEN BY GLENN Bolaños AND WITH NNO.
[2019-11-03 20:21] VITALS: BP 127/84
[2019-11-03] MEDS: ASCORBIC ACID 500 MG TABLET GT SCH (21:23)
[2019-11-04] MEDS: MULTIVIT, IRON, MIN NO. 8, FA TABLET GT SCH (05:57)
[2019-11-04] MEDS: OMEPRAZOLE 20 MG CAPSULE.DR GT SCH (05:57)
[2019-11-04] MEDS: GLUCERNA 1.2 1000ML LIQUID GT PRN (06:49)
[2019-11-04 07:56] VITALS: BP 127/84
[2019-11-04] MEDS: ACIDOPHILUS/BULGARICUS CHEW TAB GT SCH ×2 (08:57→20:57)
[2019-11-04] MEDS: BACLOFEN 20 MG TABLET GT SCH ×4 (08:57→20:57)
[2019-11-04] MEDS: SIMETHICONE 80 MG TAB.CHEW GT SCH ×3 (08:58→17:12)
[2019-11-04] MEDS: METOPROLOL TARTRATE 50 MG TABLET GT SCH ×2 (08:58→20:59)
[2019-11-04] MEDS: SERTRALINE HCL 50 MG TABLET GT SCH (08:59)
[2019-11-04] MEDS: Z GUARD REMEDY PASTE 57 GM TUBE TOP SCH ×2 (08:59→20:59)
[2019-11-04] MEDS: HYDROGEN PEROXIDE 3% 118 ML BOTTLE TP SCH ×2 (09:50→21:10)
[2019-11-04 20:20] VITALS: BP 130/80
[2019-11-04] MEDS: ASCORBIC ACID 500 MG TABLET GT SCH (20:59)
[2019-11-05] MEDS: GLUCERNA 1.2 1000ML LIQUID GT PRN (04:37)
[2019-11-05] MEDS: OMEPRAZOLE 20 MG CAPSULE.DR GT SCH (06:25)
[2019-11-05 07:47] VITALS: BP 126/80
[2019-11-05] MEDS: HYDROGEN PEROXIDE 3% 118 ML BOTTLE TP SCH ×2 (09:06→21:01)
[2019-11-05] MEDS: ACIDOPHILUS/BULGARICUS CHEW TAB GT SCH ×2 (09:38→20:58)
[2019-11-05] MEDS: BACLOFEN 20 MG TABLET GT SCH ×4 (09:38→20:58)
[2019-11-05] MEDS: METOPROLOL TARTRATE 50 MG TABLET GT SCH ×2 (09:39→20:59)
[2019-11-05] MEDS: SERTRALINE HCL 50 MG TABLET GT SCH (09:40)
[2019-11-05] MEDS: SIMETHICONE 80 MG TAB.CHEW GT SCH ×3 (09:40→17:14)
[2019-11-05] MEDS: Z GUARD REMEDY PASTE 57 GM TUBE TOP SCH ×2 (09:40→20:59)
[2019-11-05 20:00] VITALS: BP 125/80
[2019-11-05] MEDS: ASCORBIC ACID 500 MG TABLET GT SCH (20:59)
[2019-11-06] MEDS: GLUCERNA 1.2 1000ML LIQUID GT PRN (03:56)
[2019-11-06] MEDS: OMEPRAZOLE 20 MG CAPSULE.DR GT SCH (05:55)
[2019-11-06] MEDS: MULTIVIT, IRON, MIN NO. 8, FA TABLET GT SCH (05:55)
[2019-11-06 07:47] VITALS: BP 107/71
[2019-11-06] MEDS: BACLOFEN 20 MG TABLET GT SCH ×4 (08:00→20:45)
[2019-11-06] MEDS: ACIDOPHILUS/BULGARICUS CHEW TAB GT SCH ×2 (08:00→20:45)
[2019-11-06] MEDS: SIMETHICONE 80 MG TAB.CHEW GT SCH ×3 (08:01→17:15)
[2019-11-06] MEDS: SERTRALINE HCL 50 MG TABLET GT SCH (08:01)
[2019-11-06] MEDS: METOPROLOL TARTRATE 50 MG TABLET GT SCH ×2 (08:01→20:45)
[2019-11-06] MEDS: KETOCONAZOLE 2% SHAMPOO 120 ML BOTTLE TP SCH (08:02)
[2019-11-06] MEDS: Z GUARD REMEDY PASTE 57 GM TUBE TOP SCH ×2 (08:02→20:46)
[2019-11-06] MEDS: HYDROGEN PEROXIDE 3% 118 ML BOTTLE TP SCH ×2 (08:46→21:08)
[2019-11-06] MEDS: ACETAMINOPHEN 650 MG/20 ML UDC- SA PATIENTS-PAIN ONLY GT PRN (15:50)
[2019-11-06 20:30] VITALS: BP 135/87
[2019-11-06] MEDS: ASCORBIC ACID 500 MG TABLET GT SCH (20:45)
[2019-11-07] MEDS: GLUCERNA 1.2 1000ML LIQUID GT PRN ×2 (03:37→03:49)
[2019-11-07] MEDS: OMEPRAZOLE 20 MG CAPSULE.DR GT SCH (06:20)
[2019-11-07 07:51] VITALS: BP 137/84
[2019-11-07] MEDS: BACLOFEN 20 MG TABLET GT SCH ×4 (08:18→20:44)
[2019-11-07] MEDS: ACIDOPHILUS/BULGARICUS CHEW TAB GT SCH ×2 (08:18→20:44)
[2019-11-07] MEDS: SERTRALINE HCL 50 MG TABLET GT SCH (08:19)
[2019-11-07] MEDS: Z GUARD REMEDY PASTE 57 GM TUBE TOP SCH ×2 (08:19→20:44)
[2019-11-07] MEDS: SIMETHICONE 80 MG TAB.CHEW GT SCH ×3 (08:19→17:30)
[2019-11-07] MEDS: METOPROLOL TARTRATE 50 MG TABLET GT SCH ×2 (08:19→20:44)
[2019-11-07] MEDS: HYDROGEN PEROXIDE 3% 118 ML BOTTLE TP SCH ×2 (09:00→21:00)
[2019-11-07 19:56] VITALS: BP 119/78
[2019-11-07] MEDS: ASCORBIC ACID 500 MG TABLET GT SCH (20:44)
[2019-11-08] MEDS: GLUCERNA 1.2 1000ML LIQUID GT PRN (01:30)
[2019-11-08] MEDS: OMEPRAZOLE 20 MG CAPSULE.DR GT SCH (05:36)
[2019-11-08] MEDS: MULTIVIT, IRON, MIN NO. 8, FA TABLET GT SCH (05:36)
[2019-11-08 07:51] VITALS: BP 121/61
[2019-11-08] MEDS: SIMETHICONE 80 MG TAB.CHEW GT SCH ×3 (08:27→17:49)
[2019-11-08] MEDS: SERTRALINE HCL 50 MG TABLET GT SCH (08:27)
[2019-11-08] MEDS: METOPROLOL TARTRATE 50 MG TABLET GT SCH ×2 (08:27→20:42)
[2019-11-08] MEDS: BACLOFEN 20 MG TABLET GT SCH ×4 (08:27→20:42)
[2019-11-08] MEDS: ACIDOPHILUS/BULGARICUS CHEW TAB GT SCH ×2 (08:27→20:42)
[2019-11-08] MEDS: Z GUARD REMEDY PASTE 57 GM TUBE TOP SCH ×2 (08:28→20:42)
[2019-11-08] MEDS: HYDROGEN PEROXIDE 3% 118 ML BOTTLE TP SCH ×2 (09:10→21:43)
[2019-11-08 20:14] VITALS: BP 130/88
[2019-11-08] MEDS: ASCORBIC ACID 500 MG TABLET GT SCH (20:42)
[2019-11-09] MEDS: OMEPRAZOLE 20 MG CAPSULE.DR GT SCH (05:28)
[2019-11-09 07:35] VITALS: BP 130/77
[2019-11-09] MEDS: BACLOFEN 20 MG TABLET GT SCH ×4 (08:54→20:42)
[2019-11-09] MEDS: ACIDOPHILUS/BULGARICUS CHEW TAB GT SCH ×2 (08:54→20:42)
[2019-11-09] MEDS: SIMETHICONE 80 MG TAB.CHEW GT SCH ×3 (08:55→17:24)
[2019-11-09] MEDS: METOPROLOL TARTRATE 50 MG TABLET GT SCH ×2 (08:55→20:43)
[2019-11-09] MEDS: Z GUARD REMEDY PASTE 57 GM TUBE TOP SCH ×2 (08:55→20:43)
[2019-11-09] MEDS: SERTRALINE HCL 50 MG TABLET GT SCH (08:55)
[2019-11-09] MEDS: HYDROGEN PEROXIDE 3% 118 ML BOTTLE TP SCH ×2 (09:28→21:32)
[2019-11-09] MEDS: GLUCERNA 1.2 1000ML LIQUID GT PRN (11:55)
[2019-11-09 20:29] VITALS: BP 101/50
[2019-11-09 20:32] VITALS: BP 140/89
[2019-11-09] MEDS: ASCORBIC ACID 500 MG TABLET GT SCH (20:43)
--- NOTE | 2019-11-10 05:02 | NUR ---
GT SITE REDNESS WITH NEW ORDER.
[2019-11-10] MEDS: OMEPRAZOLE 20 MG CAPSULE.DR GT SCH (05:34)
[2019-11-10] MEDS: MULTIVIT, IRON, MIN NO. 8, FA TABLET GT SCH (05:34)
[2019-11-10 07:28] VITALS: BP 143/85
[2019-11-10] MEDS: ACIDOPHILUS/BULGARICUS CHEW TAB GT SCH ×2 (08:59→20:53)
[2019-11-10] MEDS: BACLOFEN 20 MG TABLET GT SCH ×4 (08:59→20:53)
[2019-11-10] MEDS: SIMETHICONE 80 MG TAB.CHEW GT SCH ×3 (09:00→16:41)
[2019-11-10] MEDS: METOPROLOL TARTRATE 50 MG TABLET GT SCH ×2 (09:00→20:54)
[2019-11-10] MEDS: Z GUARD REMEDY PASTE 57 GM TUBE TOP SCH ×2 (09:01→20:54)
[2019-11-10] MEDS: SERTRALINE HCL 50 MG TABLET GT SCH (09:01)
[2019-11-10] MEDS: KETOCONAZOLE 2% SHAMPOO 120 ML BOTTLE TP SCH (09:02)
[2019-11-10] MEDS: NEOMY/BACITRA/POLYMYXIN B OINT UD PACKET TP SCH ×2 (09:02→20:55)
[2019-11-10] MEDS: HYDROGEN PEROXIDE 3% 118 ML BOTTLE TP SCH ×2 (09:30→20:54)
[2019-11-10 20:12] VITALS: BP 136/82
[2019-11-10] MEDS: ASCORBIC ACID 500 MG TABLET GT SCH (20:54)
[2019-11-10] MEDS: GLUCERNA 1.2 1000ML LIQUID GT PRN (21:00)
[2019-11-11] MEDS: OMEPRAZOLE 20 MG CAPSULE.DR GT SCH (05:27)
[2019-11-11 07:46] VITALS: BP 113/74
[2019-11-11] MEDS: HYDROGEN PEROXIDE 3% 118 ML BOTTLE TP SCH ×2 (08:21→20:58)
[2019-11-11] MEDS: BACLOFEN 20 MG TABLET GT SCH ×4 (08:42→21:09)
[2019-11-11] MEDS: ACIDOPHILUS/BULGARICUS CHEW TAB GT SCH ×2 (08:42→21:09)
[2019-11-11] MEDS: SIMETHICONE 80 MG TAB.CHEW GT SCH ×3 (08:43→17:25)
[2019-11-11] MEDS: METOPROLOL TARTRATE 50 MG TABLET GT SCH ×2 (08:43→21:10)
[2019-11-11] MEDS: SERTRALINE HCL 50 MG TABLET GT SCH (08:44)
[2019-11-11] MEDS: NEOMY/BACITRA/POLYMYXIN B OINT UD PACKET TP SCH ×2 (08:44→21:11)
[2019-11-11] MEDS: Z GUARD REMEDY PASTE 57 GM TUBE TOP SCH ×2 (08:44→21:11)
--- NOTE | 2019-11-11 14:53 | NUR ---
INTERDISCIPLINARY PLAN OF CARE CONFERENCE was held today. Patient's family was not able to participate in the meeting. Dr. Heaton and the Interdisciplinary Team reviewed the current plan of care in detail. RN reported on patient's medical condition and ongoing skin treatment. No major changes in condition were reported. See RN IDT conference notes. See also all other disciplines IDT notes and physician's progress notes for additional details.
--- NOTE | 2019-11-11 16:37 | NUR ---
Pharmacy Update from Today's 11/11/19 IDT meeting VS: Temp 98.2 BP 143/85 HR 89 LABS: (from 10/14/19) Wbc 9.6 H/H 10.8/34.9 Plt 316 Na 136 K 4.2 Cl 103 CO2 25 BUN/SCr 15/0.8 BS 115 Ca 8.8 phos 4.0 Mg 2.0 MEDICATION USE REVIEWED: > Pt is not on any anti-epileptic medications > Pt is on Zoloft 50mg daily for depression m/b episodes of crying; No GDR planned for pt d/t contraindication of persistent cry episodes and repeated failed GDRs in the past (see MD note). Patient had x11 episodes in September, pt's condition remains about baseline with occasional increases in episodes. Will continue to follow trend > Pt was on depo-provera [id number] for heavy menstruation, last given 03/30/19. Now d/c'd per gynocology as pt reaching menopause age and may no longer need. > PRN MED USAGE: (September) Tylenol 650mg for mild pain used x3 Tylenol for temp x0 Tylenol 1000mg mod pain x0 Bisacodyl x0 Rodriguez Flush enema x0 NEW ORDERS NOTED: > Covid test 10/14 negative > Neosporin qshift to GT side redness 11/09-11/22 Patient was reviewed and discussed in detail with no medication issues noted per team. No further rx recommendations at this time. previous rx rec change reported. Pt remains stable on current regimen, will continue to follow.
[2019-11-11 20:03] VITALS: BP 117/73
[2019-11-11] MEDS: ASCORBIC ACID 500 MG TABLET GT SCH (21:11)
[2019-11-12] MEDS: GLUCERNA 1.2 1000ML LIQUID GT PRN (05:00)
[2019-11-12] MEDS: MULTIVIT, IRON, MIN NO. 8, FA TABLET GT SCH (06:13)
[2019-11-12] MEDS: OMEPRAZOLE 20 MG CAPSULE.DR GT SCH (06:13)
[2019-11-12 07:52] VITALS: BP 138/80
[2019-11-12] MEDS: ACIDOPHILUS/BULGARICUS CHEW TAB GT SCH ×2 (08:42→21:21)
[2019-11-12] MEDS: BACLOFEN 20 MG TABLET GT SCH ×4 (08:42→21:21)
[2019-11-12] MEDS: METOPROLOL TARTRATE 50 MG TABLET GT SCH ×2 (08:43→21:21)
[2019-11-12] MEDS: SERTRALINE HCL 50 MG TABLET GT SCH (08:43)
[2019-11-12] MEDS: SIMETHICONE 80 MG TAB.CHEW GT SCH ×3 (08:43→17:22)
[2019-11-12] MEDS: Z GUARD REMEDY PASTE 57 GM TUBE TOP SCH ×2 (08:44→21:22)
[2019-11-12] MEDS: NEOMY/BACITRA/POLYMYXIN B OINT UD PACKET TP SCH ×2 (08:44→21:22)
[2019-11-12] MEDS: HYDROGEN PEROXIDE 3% 118 ML BOTTLE TP SCH ×2 (09:10→21:27)
[2019-11-12] MEDS: ACETAMINOPHEN 650 MG/20 ML UDC- SA PATIENTS-PAIN ONLY GT PRN (17:23)
[2019-11-12 20:00] VITALS: BP 112/79
[2019-11-12] MEDS: ASCORBIC ACID 500 MG TABLET GT SCH (21:22)
[2019-11-13] MEDS: OMEPRAZOLE 20 MG CAPSULE.DR GT SCH (06:50)
[2019-11-13 07:59] VITALS: BP 125/88
[2019-11-13] MEDS: BACLOFEN 20 MG TABLET GT SCH ×4 (08:46→21:18)
[2019-11-13] MEDS: ACIDOPHILUS/BULGARICUS CHEW TAB GT SCH ×2 (08:46→21:17)
[2019-11-13] MEDS: METOPROLOL TARTRATE 50 MG TABLET GT SCH ×2 (08:47→21:19)
[2019-11-13] MEDS: SERTRALINE HCL 50 MG TABLET GT SCH (08:47)
[2019-11-13] MEDS: Z GUARD REMEDY PASTE 57 GM TUBE TOP SCH ×2 (08:47→21:19)
[2019-11-13] MEDS: SIMETHICONE 80 MG TAB.CHEW GT SCH ×3 (08:47→16:02)
[2019-11-13] MEDS: KETOCONAZOLE 2% SHAMPOO 120 ML BOTTLE TP SCH (08:47)
[2019-11-13] MEDS: NEOMY/BACITRA/POLYMYXIN B OINT UD PACKET TP SCH ×2 (08:48→21:20)
[2019-11-13] MEDS: HYDROGEN PEROXIDE 3% 118 ML BOTTLE TP SCH ×2 (09:00→21:39)
[2019-11-13 20:00] VITALS: BP 130/80
[2019-11-13] MEDS: ASCORBIC ACID 500 MG TABLET GT SCH (21:19)
[2019-11-14] MEDS: OMEPRAZOLE 20 MG CAPSULE.DR GT SCH (05:50)
[2019-11-14] MEDS: MULTIVIT, IRON, MIN NO. 8, FA TABLET GT SCH (05:50)
[2019-11-14] MEDS: HYDROGEN PEROXIDE 3% 118 ML BOTTLE TP SCH ×2 (08:12→21:20)
[2019-11-14] MEDS: BACLOFEN 20 MG TABLET GT SCH ×4 (09:08→21:51)
[2019-11-14] MEDS: ACIDOPHILUS/BULGARICUS CHEW TAB GT SCH ×2 (09:08→21:51)
[2019-11-14] MEDS: SERTRALINE HCL 50 MG TABLET GT SCH (09:09)
[2019-11-14] MEDS: METOPROLOL TARTRATE 50 MG TABLET GT SCH ×2 (09:09→21:52)
[2019-11-14] MEDS: Z GUARD REMEDY PASTE 57 GM TUBE TOP SCH ×2 (09:09→21:52)
[2019-11-14] MEDS: NEOMY/BACITRA/POLYMYXIN B OINT UD PACKET TP SCH ×2 (09:09→21:52)
[2019-11-14] MEDS: SIMETHICONE 80 MG TAB.CHEW GT SCH ×3 (09:09→18:00)
[2019-11-14] MEDS: GLUCERNA 1.2 1000ML LIQUID GT PRN (18:18)
[2019-11-14 20:00] VITALS: BP 130/81
[2019-11-14] MEDS: ASCORBIC ACID 500 MG TABLET GT SCH (21:52)
[2019-11-15] MEDS: OMEPRAZOLE 20 MG CAPSULE.DR GT SCH (05:53)
[2019-11-15 07:53] VITALS: BP 140/88
[2019-11-15] MEDS: HYDROGEN PEROXIDE 3% 118 ML BOTTLE TP SCH ×2 (09:00→21:40)
[2019-11-15] MEDS: BACLOFEN 20 MG TABLET GT SCH ×4 (09:35→20:13)
[2019-11-15] MEDS: SIMETHICONE 80 MG TAB.CHEW GT SCH ×3 (09:35→18:00)
[2019-11-15] MEDS: METOPROLOL TARTRATE 50 MG TABLET GT SCH ×2 (09:35→20:14)
[2019-11-15] MEDS: ACIDOPHILUS/BULGARICUS CHEW TAB GT SCH ×2 (09:35→20:13)
[2019-11-15] MEDS: Z GUARD REMEDY PASTE 57 GM TUBE TOP SCH ×2 (09:36→20:14)
[2019-11-15] MEDS: NEOMY/BACITRA/POLYMYXIN B OINT UD PACKET TP SCH ×2 (09:36→20:15)
[2019-11-15] MEDS: SERTRALINE HCL 50 MG TABLET GT SCH (09:36)
[2019-11-15] MEDS: GLUCERNA 1.2 1000ML LIQUID GT PRN (18:48)
[2019-11-15 20:00] VITALS: BP 110/71
[2019-11-15] MEDS: ASCORBIC ACID 500 MG TABLET GT SCH (20:14)
[2019-11-16] MEDS: OMEPRAZOLE 20 MG CAPSULE.DR GT SCH (05:27)
[2019-11-16] MEDS: MULTIVIT, IRON, MIN NO. 8, FA TABLET GT SCH (05:36)
[2019-11-16 07:56] VITALS: BP 124/84
[2019-11-16] MEDS: HYDROGEN PEROXIDE 3% 118 ML BOTTLE TP SCH ×2 (09:00→21:24)
[2019-11-16] MEDS: NEOMY/BACITRA/POLYMYXIN B OINT UD PACKET TP SCH ×2 (09:01→21:48)
[2019-11-16] MEDS: METOPROLOL TARTRATE 50 MG TABLET GT SCH ×2 (09:01→21:48)
[2019-11-16] MEDS: Z GUARD REMEDY PASTE 57 GM TUBE TOP SCH ×2 (09:01→21:48)
[2019-11-16] MEDS: ACIDOPHILUS/BULGARICUS CHEW TAB GT SCH ×2 (09:01→21:48)
[2019-11-16] MEDS: SIMETHICONE 80 MG TAB.CHEW GT SCH ×3 (09:01→17:00)
[2019-11-16] MEDS: SERTRALINE HCL 50 MG TABLET GT SCH (09:01)
[2019-11-16] MEDS: BACLOFEN 20 MG TABLET GT SCH ×4 (09:01→21:48)
[2019-11-16 19:57] VITALS: BP 124/89
[2019-11-16] MEDS: ASCORBIC ACID 500 MG TABLET GT SCH (21:48)
[2019-11-17] MEDS: OMEPRAZOLE 20 MG CAPSULE.DR GT SCH (06:13)
[2019-11-17 07:54] VITALS: BP 147/91
[2019-11-17] MEDS: HYDROGEN PEROXIDE 3% 118 ML BOTTLE TP SCH ×2 (08:28→21:36)
[2019-11-17] MEDS: ACIDOPHILUS/BULGARICUS CHEW TAB GT SCH ×2 (09:00→20:50)
[2019-11-17] MEDS: NEOMY/BACITRA/POLYMYXIN B OINT UD PACKET TP SCH ×2 (09:00→20:51)
[2019-11-17] MEDS: BACLOFEN 20 MG TABLET GT SCH ×4 (09:00→20:50)
[2019-11-17] MEDS: METOPROLOL TARTRATE 50 MG TABLET GT SCH ×2 (09:00→20:50)
[2019-11-17] MEDS: Z GUARD REMEDY PASTE 57 GM TUBE TOP SCH ×2 (09:00→20:50)
[2019-11-17] MEDS: KETOCONAZOLE 2% SHAMPOO 120 ML BOTTLE TP SCH (09:00)
[2019-11-17] MEDS: SERTRALINE HCL 50 MG TABLET GT SCH (09:00)
[2019-11-17] MEDS: SIMETHICONE 80 MG TAB.CHEW GT SCH ×3 (09:00→17:00)
[2019-11-17] MEDS: ASCORBIC ACID 500 MG TABLET GT SCH (20:50)
[2019-11-17 21:25] VITALS: BP 132/69
[2019-11-18] MEDS: OMEPRAZOLE 20 MG CAPSULE.DR GT SCH (05:38)
[2019-11-18] MEDS: MULTIVIT, IRON, MIN NO. 8, FA TABLET GT SCH (05:38)
[2019-11-18 07:53] VITALS: BP 124/76
[2019-11-18] MEDS: BACLOFEN 20 MG TABLET GT SCH ×4 (09:08→21:42)
[2019-11-18] MEDS: ACIDOPHILUS/BULGARICUS CHEW TAB GT SCH ×2 (09:08→21:42)
[2019-11-18] MEDS: METOPROLOL TARTRATE 50 MG TABLET GT SCH ×2 (09:09→21:42)
[2019-11-18] MEDS: SERTRALINE HCL 50 MG TABLET GT SCH (09:09)
[2019-11-18] MEDS: SIMETHICONE 80 MG TAB.CHEW GT SCH ×3 (09:09→17:19)
[2019-11-18] MEDS: NEOMY/BACITRA/POLYMYXIN B OINT UD PACKET TP SCH ×2 (09:10→21:43)
[2019-11-18] MEDS: Z GUARD REMEDY PASTE 57 GM TUBE TOP SCH ×2 (09:10→21:43)
[2019-11-18] MEDS: HYDROGEN PEROXIDE 3% 118 ML BOTTLE TP SCH ×2 (09:52→21:36)
--- NOTE | 2019-11-18 11:40 | NUR ---
NEW ORDER CARRIED OUT FROM GLENN Bolaños FOR RT. ANKLE PSORIATIC SKIN LESIONS
[2019-11-18] MEDS: GLUCERNA 1.2 1000ML LIQUID GT PRN (17:47)
[2019-11-18 20:05] VITALS: BP 127/90
[2019-11-18] MEDS: ASCORBIC ACID 500 MG TABLET GT SCH (21:42)
[2019-11-18] MEDS: TRIAMCINOLONE ACET 0.1% OINT 15 GM TUBE TP SCH (21:43)
[2019-11-19] MEDS: OMEPRAZOLE 20 MG CAPSULE.DR GT SCH (05:22)
[2019-11-19 07:44] VITALS: BP 110/61
[2019-11-19] MEDS: HYDROGEN PEROXIDE 3% 118 ML BOTTLE TP SCH ×2 (09:00→21:25)
[2019-11-19] MEDS: BACLOFEN 20 MG TABLET GT SCH ×4 (09:33→21:38)
[2019-11-19] MEDS: ACIDOPHILUS/BULGARICUS CHEW TAB GT SCH ×2 (09:33→21:37)
[2019-11-19] MEDS: METOPROLOL TARTRATE 50 MG TABLET GT SCH ×2 (09:33→21:39)
[2019-11-19] MEDS: SIMETHICONE 80 MG TAB.CHEW GT SCH ×3 (09:34→16:55)
[2019-11-19] MEDS: SERTRALINE HCL 50 MG TABLET GT SCH (09:34)
[2019-11-19] MEDS: NEOMY/BACITRA/POLYMYXIN B OINT UD PACKET TP SCH ×2 (09:35→21:39)
[2019-11-19] MEDS: Z GUARD REMEDY PASTE 57 GM TUBE TOP SCH ×2 (09:35→21:39)
[2019-11-19] MEDS: TRIAMCINOLONE ACET 0.1% OINT 15 GM TUBE TP SCH ×2 (09:35→21:39)
--- NOTE | 2019-11-19 19:00 | NUR ---
Spoke to Frank regarding ,Anne will be transfer to room 422,He agreed with the transfer.
[2019-11-19 20:04] VITALS: BP 108/51
[2019-11-19 20:33] VITALS: BP 130/75
[2019-11-19] MEDS: ASCORBIC ACID 500 MG TABLET GT SCH (21:39)
[2019-11-20] MEDS: OMEPRAZOLE 20 MG CAPSULE.DR GT SCH (05:08)
[2019-11-20] MEDS: MULTIVIT, IRON, MIN NO. 8, FA TABLET GT SCH (06:14)
[2019-11-20 07:38] VITALS: BP 131/72
[2019-11-20] MEDS: ACIDOPHILUS/BULGARICUS CHEW TAB GT SCH ×2 (08:37→21:24)
[2019-11-20] MEDS: BACLOFEN 20 MG TABLET GT SCH ×4 (08:38→21:25)
[2019-11-20] MEDS: SERTRALINE HCL 50 MG TABLET GT SCH (08:40)
[2019-11-20] MEDS: SIMETHICONE 80 MG TAB.CHEW GT SCH ×3 (08:40→17:43)
[2019-11-20] MEDS: METOPROLOL TARTRATE 50 MG TABLET GT SCH ×2 (08:40→21:27)
[2019-11-20] MEDS: Z GUARD REMEDY PASTE 57 GM TUBE TOP SCH ×2 (08:41→21:28)
[2019-11-20] MEDS: NEOMY/BACITRA/POLYMYXIN B OINT UD PACKET TP SCH ×2 (09:00→21:28)
[2019-11-20] MEDS: TRIAMCINOLONE ACET 0.1% OINT 15 GM TUBE TP SCH ×2 (09:00→21:28)
[2019-11-20] MEDS: KETOCONAZOLE 2% SHAMPOO 120 ML BOTTLE TP SCH (09:00)
[2019-11-20] MEDS: HYDROGEN PEROXIDE 3% 118 ML BOTTLE TP SCH ×2 (09:00→19:08)
[2019-11-20 20:05] VITALS: BP 130/77
[2019-11-20] MEDS: ASCORBIC ACID 500 MG TABLET GT SCH (21:27)
[2019-11-21] MEDS: GLUCERNA 1.2 1000ML LIQUID GT PRN (03:00)
[2019-11-21] MEDS: OMEPRAZOLE 20 MG CAPSULE.DR GT SCH (05:52)
[2019-11-21 07:24] VITALS: BP 109/56
[2019-11-21] MEDS: ACIDOPHILUS/BULGARICUS CHEW TAB GT SCH ×2 (08:15→21:48)
[2019-11-21] MEDS: BACLOFEN 20 MG TABLET GT SCH ×4 (08:15→21:48)
[2019-11-21] MEDS: NEOMY/BACITRA/POLYMYXIN B OINT UD PACKET TP SCH ×2 (08:16→21:49)
[2019-11-21] MEDS: SIMETHICONE 80 MG TAB.CHEW GT SCH ×3 (08:16→17:20)
[2019-11-21] MEDS: TRIAMCINOLONE ACET 0.1% OINT 15 GM TUBE TP SCH ×2 (08:16→21:49)
[2019-11-21] MEDS: METOPROLOL TARTRATE 50 MG TABLET GT SCH ×2 (08:16→21:48)
[2019-11-21] MEDS: Z GUARD REMEDY PASTE 57 GM TUBE TOP SCH ×2 (08:16→21:48)
[2019-11-21] MEDS: SERTRALINE HCL 50 MG TABLET GT SCH (08:16)
[2019-11-21] MEDS: HYDROGEN PEROXIDE 3% 118 ML BOTTLE TP SCH ×2 (10:20→21:50)
[2019-11-21] MEDS: ASCORBIC ACID 500 MG TABLET GT SCH (21:48)
[2019-11-21 22:00] VITALS: BP 133/94
[2019-11-22] MEDS: OMEPRAZOLE 20 MG CAPSULE.DR GT SCH (05:33)
[2019-11-22] MEDS: MULTIVIT, IRON, MIN NO. 8, FA TABLET GT SCH (05:33)
[2019-11-22] MEDS: GLUCERNA 1.2 1000ML LIQUID GT PRN (06:41)
[2019-11-22] MEDS: ACIDOPHILUS/BULGARICUS CHEW TAB GT SCH ×2 (08:19→20:49)
[2019-11-22] MEDS: METOPROLOL TARTRATE 50 MG TABLET GT SCH ×2 (08:19→20:50)
[2019-11-22] MEDS: SIMETHICONE 80 MG TAB.CHEW GT SCH ×3 (08:19→16:49)
[2019-11-22] MEDS: SERTRALINE HCL 50 MG TABLET GT SCH (08:19)
[2019-11-22] MEDS: Z GUARD REMEDY PASTE 57 GM TUBE TOP SCH ×2 (08:19→20:50)
[2019-11-22] MEDS: TRIAMCINOLONE ACET 0.1% OINT 15 GM TUBE TP SCH ×2 (08:19→20:50)
[2019-11-22] MEDS: BACLOFEN 20 MG TABLET GT SCH ×4 (08:19→20:49)
[2019-11-22] MEDS: NEOMY/BACITRA/POLYMYXIN B OINT UD PACKET TP SCH ×2 (08:20→20:50)
[2019-11-22] MEDS: HYDROGEN PEROXIDE 3% 118 ML BOTTLE TP SCH ×2 (10:00→21:55)
[2019-11-22] MEDS: ASCORBIC ACID 500 MG TABLET GT SCH (20:50)
[2019-11-22 23:29] VITALS: BP 130/80
[2019-11-23] MEDS: GLUCERNA 1.2 1000ML LIQUID GT PRN (05:16)
[2019-11-23] MEDS: OMEPRAZOLE 20 MG CAPSULE.DR GT SCH (05:16)
[2019-11-23 07:54] VITALS: BP 130/80
[2019-11-23] MEDS: ACIDOPHILUS/BULGARICUS CHEW TAB GT SCH ×2 (08:43→21:00)
[2019-11-23] MEDS: BACLOFEN 20 MG TABLET GT SCH ×4 (08:43→21:00)
[2019-11-23] MEDS: TRIAMCINOLONE ACET 0.1% OINT 15 GM TUBE TP SCH ×2 (08:44→21:00)
[2019-11-23] MEDS: Z GUARD REMEDY PASTE 57 GM TUBE TOP SCH ×2 (08:44→21:00)
[2019-11-23] MEDS: NEOMY/BACITRA/POLYMYXIN B OINT UD PACKET TP SCH ×2 (08:44→21:00)
[2019-11-23] MEDS: SERTRALINE HCL 50 MG TABLET GT SCH (08:44)
[2019-11-23] MEDS: SIMETHICONE 80 MG TAB.CHEW GT SCH ×3 (08:44→16:38)
[2019-11-23] MEDS: METOPROLOL TARTRATE 50 MG TABLET GT SCH ×2 (08:44→21:00)
[2019-11-23] MEDS: HYDROGEN PEROXIDE 3% 118 ML BOTTLE TP SCH ×2 (09:00→21:18)
[2019-11-23] MEDS: ASCORBIC ACID 500 MG TABLET GT SCH (21:00)
[2019-11-23 21:10] VITALS: BP 113/60
[2019-11-24] MEDS: GLUCERNA 1.2 1000ML LIQUID GT PRN (01:34)
[2019-11-24] MEDS: OMEPRAZOLE 20 MG CAPSULE.DR GT SCH (06:53)
[2019-11-24] MEDS: MULTIVIT, IRON, MIN NO. 8, FA TABLET GT SCH (06:54)
[2019-11-24 07:28] VITALS: BP 131/80
[2019-11-24] MEDS: METOPROLOL TARTRATE 50 MG TABLET GT SCH ×2 (08:16→21:25)
[2019-11-24] MEDS: ACIDOPHILUS/BULGARICUS CHEW TAB GT SCH ×2 (08:16→21:25)
[2019-11-24] MEDS: Z GUARD REMEDY PASTE 57 GM TUBE TOP SCH ×2 (08:17→21:26)
[2019-11-24] MEDS: SERTRALINE HCL 50 MG TABLET GT SCH (08:17)
[2019-11-24] MEDS: TRIAMCINOLONE ACET 0.1% OINT 15 GM TUBE TP SCH ×2 (08:17→21:26)
[2019-11-24] MEDS: SIMETHICONE 80 MG TAB.CHEW GT SCH ×3 (08:17→17:32)
[2019-11-24] MEDS: BACLOFEN 20 MG TABLET GT SCH ×4 (08:17→21:25)
[2019-11-24] MEDS: KETOCONAZOLE 2% SHAMPOO 120 ML BOTTLE TP SCH (08:19)
[2019-11-24] MEDS: HYDROGEN PEROXIDE 3% 118 ML BOTTLE TP SCH ×2 (09:00→21:46)
[2019-11-24 20:16] VITALS: BP 135/79
[2019-11-24] MEDS: ASCORBIC ACID 500 MG TABLET GT SCH (21:25)
[2019-11-25] MEDS: GLUCERNA 1.2 1000ML LIQUID GT PRN (00:41)
[2019-11-25] MEDS: OMEPRAZOLE 20 MG CAPSULE.DR GT SCH (05:33)
[2019-11-25 06:31] LABS: BILIRUBIN,TOTAL 0.3 mg/dL (0.2-1.0); CREATININE 0.8 mg/dL (0.6-1.3); POTASSIUM 4.5 mmol/L (3.5-5.1); TOTAL PROTEIN, SERUM 8.7 g/dL (6.4-8.2)
[2019-11-25 06:33] LABS: BASOPHILS # (AUTO) 0.1 K/uL (0.0-8.0); BASOPHILS % (AUTO) 1.2 % (0.0-2.0); EOSINOPHILS # (AUTO) 0.3 K/uL (0.0-0.7); EOSINOPHILS % (AUTO) 4.6 % (0.0-7.0); HEMATOCRIT 33.8 % (31.2-41.9); HEMOGLOBIN 10.3 g/dL (10.9-14.3); LYMPHOCYTES # (AUTO) 2.5 K/uL (20.0-40.0); LYMPHOCYTES % (AUTO) 41.7 % (20.5-51.5); MEAN CORPUSCULAR HEMOGLOBIN 21.4 uug (24.7-32.8); MEAN CORPUSCULAR HGB CONC 30 g/dL (32.3-35.6); MEAN CORPUSCULAR VOLUME 70.2 fL (75.5-95.3); MONOCYTES # (AUTO) 0.7 K/uL (2.0-10.0); MONOCYTES % (AUTO) 11.7 % (0.0-11.0); NEUTROPHILS # (AUTO) 2.5 K/uL (1.8-8.9); NEUTROPHILS % (AUTO) 40.8 % (38.5-71.5); PLATELET COUNT (AUTO) 351 K/uL (179-408); RED BLOOD CELL COUNT(AUTO) 4.81 MIL/uL (3.63-4.92); WHITE BLOOD COUNT (AUTO) 6.1 K/uL (3.8-11.8)
[2019-11-25 07:35] VITALS: BP 127/86
[2019-11-25] MEDS: ACIDOPHILUS/BULGARICUS CHEW TAB GT SCH ×2 (08:47→21:28)
[2019-11-25] MEDS: BACLOFEN 20 MG TABLET GT SCH ×4 (08:47→21:28)
[2019-11-25] MEDS: SIMETHICONE 80 MG TAB.CHEW GT SCH ×3 (08:48→17:02)
[2019-11-25] MEDS: METOPROLOL TARTRATE 50 MG TABLET GT SCH ×2 (08:48→21:28)
[2019-11-25] MEDS: SERTRALINE HCL 50 MG TABLET GT SCH (08:48)
[2019-11-25] MEDS: TRIAMCINOLONE ACET 0.1% OINT 15 GM TUBE TP SCH ×2 (08:49→21:28)
[2019-11-25] MEDS: Z GUARD REMEDY PASTE 57 GM TUBE TOP SCH ×2 (08:49→21:28)
[2019-11-25] MEDS: ACETAMINOPHEN 650 MG/20 ML UDC- SA PATIENTS-PAIN ONLY GT PRN (08:50)
[2019-11-25] MEDS: HYDROGEN PEROXIDE 3% 118 ML BOTTLE TP SCH ×2 (09:38→21:51)
[2019-11-25 20:25] VITALS: BP 139/89
[2019-11-25] MEDS: ASCORBIC ACID 500 MG TABLET GT SCH (21:28)
[2019-11-26] MEDS: GLUCERNA 1.2 1000ML LIQUID GT PRN (02:00)
[2019-11-26] MEDS: OMEPRAZOLE 20 MG CAPSULE.DR GT SCH (05:53)
[2019-11-26] MEDS: MULTIVIT, IRON, MIN NO. 8, FA TABLET GT SCH (05:53)
[2019-11-26 07:41] VITALS: BP 132/71
[2019-11-26] MEDS: ACIDOPHILUS/BULGARICUS CHEW TAB GT SCH ×2 (08:37→21:46)
[2019-11-26] MEDS: BACLOFEN 20 MG TABLET GT SCH ×4 (08:37→21:46)
[2019-11-26] MEDS: TRIAMCINOLONE ACET 0.1% OINT 15 GM TUBE TP SCH ×2 (08:38→21:47)
[2019-11-26] MEDS: Z GUARD REMEDY PASTE 57 GM TUBE TOP SCH ×2 (08:38→21:47)
[2019-11-26] MEDS: SERTRALINE HCL 50 MG TABLET GT SCH (08:38)
[2019-11-26] MEDS: METOPROLOL TARTRATE 50 MG TABLET GT SCH ×2 (08:38→21:46)
[2019-11-26] MEDS: SIMETHICONE 80 MG TAB.CHEW GT SCH ×3 (08:38→17:40)
[2019-11-26] MEDS: HYDROGEN PEROXIDE 3% 118 ML BOTTLE TP SCH ×2 (09:00→21:52)
[2019-11-26 20:00] VITALS: BP 124/78
[2019-11-26] MEDS: ASCORBIC ACID 500 MG TABLET GT SCH (21:47)
[2019-11-27] MEDS: GLUCERNA 1.2 1000ML LIQUID GT PRN (06:15)
[2019-11-27] MEDS: OMEPRAZOLE 20 MG CAPSULE.DR GT SCH (06:15)
[2019-11-27 08:01] VITALS: BP 124/69
[2019-11-27] MEDS: ACIDOPHILUS/BULGARICUS CHEW TAB GT SCH ×2 (08:53→21:33)
[2019-11-27] MEDS: BACLOFEN 20 MG TABLET GT SCH ×4 (08:53→21:33)
[2019-11-27] MEDS: Z GUARD REMEDY PASTE 57 GM TUBE TOP SCH ×2 (08:54→21:34)
[2019-11-27] MEDS: TRIAMCINOLONE ACET 0.1% OINT 15 GM TUBE TP SCH ×2 (08:54→21:34)
[2019-11-27] MEDS: METOPROLOL TARTRATE 50 MG TABLET GT SCH ×2 (08:54→21:34)
[2019-11-27] MEDS: KETOCONAZOLE 2% SHAMPOO 120 ML BOTTLE TP SCH (08:54)
[2019-11-27] MEDS: SIMETHICONE 80 MG TAB.CHEW GT SCH ×3 (08:54→17:22)
[2019-11-27] MEDS: SERTRALINE HCL 50 MG TABLET GT SCH (08:54)
[2019-11-27] MEDS: ACETAMINOPHEN 650 MG/20 ML UDC- SA PATIENTS-PAIN ONLY GT PRN (08:56)
[2019-11-27] MEDS: HYDROGEN PEROXIDE 3% 118 ML BOTTLE TP SCH ×2 (09:00→21:25)
[2019-11-27 20:00] VITALS: BP 128/83
[2019-11-27] MEDS: ASCORBIC ACID 500 MG TABLET GT SCH (21:34)
[2019-11-28] MEDS: GLUCERNA 1.2 1000ML LIQUID GT PRN (03:42)
[2019-11-28] MEDS: OMEPRAZOLE 20 MG CAPSULE.DR GT SCH (05:44)
[2019-11-28] MEDS: MULTIVIT, IRON, MIN NO. 8, FA TABLET GT SCH (05:44)
[2019-11-28 07:33] VITALS: BP 120/67
[2019-11-28] MEDS: METOPROLOL TARTRATE 50 MG TABLET GT SCH ×2 (08:14→21:29)
[2019-11-28] MEDS: BACLOFEN 20 MG TABLET GT SCH ×4 (08:14→21:29)
[2019-11-28] MEDS: ACIDOPHILUS/BULGARICUS CHEW TAB GT SCH ×2 (08:14→21:28)
[2019-11-28] MEDS: SIMETHICONE 80 MG TAB.CHEW GT SCH ×3 (08:15→16:11)
[2019-11-28] MEDS: SERTRALINE HCL 50 MG TABLET GT SCH (08:15)
[2019-11-28] MEDS: TRIAMCINOLONE ACET 0.1% OINT 15 GM TUBE TP SCH ×2 (08:16→21:29)
[2019-11-28] MEDS: Z GUARD REMEDY PASTE 57 GM TUBE TOP SCH ×2 (08:16→21:29)
[2019-11-28] MEDS: HYDROGEN PEROXIDE 3% 118 ML BOTTLE TP SCH ×2 (09:00→21:44)
[2019-11-28 20:00] VITALS: BP 130/81
[2019-11-28] MEDS: ASCORBIC ACID 500 MG TABLET GT SCH (21:29)
[2019-11-29] MEDS: GLUCERNA 1.2 1000ML LIQUID GT PRN (02:13)
[2019-11-29] MEDS: ACETAMINOPHEN 650 MG/20 ML UDC- SA PATIENTS-PAIN ONLY GT PRN (04:24)
[2019-11-29] MEDS: OMEPRAZOLE 20 MG CAPSULE.DR GT SCH (05:09)
[2019-11-29 07:36] VITALS: BP 122/68
[2019-11-29] MEDS: ACIDOPHILUS/BULGARICUS CHEW TAB GT SCH ×2 (08:16→21:31)
[2019-11-29] MEDS: BACLOFEN 20 MG TABLET GT SCH ×4 (08:16→21:31)
[2019-11-29] MEDS: SERTRALINE HCL 50 MG TABLET GT SCH (08:17)
[2019-11-29] MEDS: Z GUARD REMEDY PASTE 57 GM TUBE TOP SCH ×2 (08:17→21:32)
[2019-11-29] MEDS: TRIAMCINOLONE ACET 0.1% OINT 15 GM TUBE TP SCH ×2 (08:17→21:33)
[2019-11-29] MEDS: SIMETHICONE 80 MG TAB.CHEW GT SCH ×3 (08:17→16:20)
[2019-11-29] MEDS: METOPROLOL TARTRATE 50 MG TABLET GT SCH ×2 (08:17→21:31)
[2019-11-29] MEDS: HYDROGEN PEROXIDE 3% 118 ML BOTTLE TP SCH ×2 (09:14→21:12)
[2019-11-29 20:00] VITALS: BP 133/88
[2019-11-29] MEDS: ASCORBIC ACID 500 MG TABLET GT SCH (21:32)
[2019-11-30] MEDS: GLUCERNA 1.2 1000ML LIQUID GT PRN (00:53)
[2019-11-30] MEDS: OMEPRAZOLE 20 MG CAPSULE.DR GT SCH (05:16)
[2019-11-30] MEDS: MULTIVIT, IRON, MIN NO. 8, FA TABLET GT SCH (05:37)
[2019-11-30 07:47] VITALS: BP 113/51
[2019-11-30] MEDS: BACLOFEN 20 MG TABLET GT SCH ×4 (08:46→20:50)
[2019-11-30] MEDS: SERTRALINE HCL 50 MG TABLET GT SCH (08:47)
[2019-11-30] MEDS: METOPROLOL TARTRATE 50 MG TABLET GT SCH ×2 (08:47→20:50)
[2019-11-30] MEDS: SIMETHICONE 80 MG TAB.CHEW GT SCH ×3 (08:47→17:10)
[2019-11-30] MEDS: Z GUARD REMEDY PASTE 57 GM TUBE TOP SCH ×2 (08:48→20:50)
[2019-11-30] MEDS: TRIAMCINOLONE ACET 0.1% OINT 15 GM TUBE TP SCH ×2 (08:48→20:50)
[2019-11-30] MEDS: ACIDOPHILUS/BULGARICUS CHEW TAB GT SCH ×2 (08:54→20:50)
[2019-11-30] MEDS: HYDROGEN PEROXIDE 3% 118 ML BOTTLE TP SCH ×2 (09:37→21:03)
[2019-11-30 20:05] VITALS: BP 110/61
[2019-11-30] MEDS: ASCORBIC ACID 500 MG TABLET GT SCH (20:50)
[2019-12-01] MEDS: GLUCERNA 1.2 1000ML LIQUID GT PRN (02:28)
[2019-12-01] MEDS: OMEPRAZOLE 20 MG CAPSULE.DR GT SCH (06:22)
[2019-12-01 07:44] VITALS: BP 99/51
[2019-12-01] MEDS: HYDROGEN PEROXIDE 3% 118 ML BOTTLE TP SCH ×2 (08:09→21:14)
[2019-12-01] MEDS: SIMETHICONE 80 MG TAB.CHEW GT SCH ×3 (08:38→17:16)
[2019-12-01] MEDS: SERTRALINE HCL 50 MG TABLET GT SCH (08:38)
[2019-12-01] MEDS: Z GUARD REMEDY PASTE 57 GM TUBE TOP SCH ×2 (08:38→20:55)
[2019-12-01] MEDS: BACLOFEN 20 MG TABLET GT SCH ×4 (08:38→20:54)
[2019-12-01] MEDS: METOPROLOL TARTRATE 50 MG TABLET GT SCH ×2 (08:38→20:54)
[2019-12-01] MEDS: ACIDOPHILUS/BULGARICUS CHEW TAB GT SCH ×2 (08:38→20:54)
[2019-12-01] MEDS: KETOCONAZOLE 2% SHAMPOO 120 ML BOTTLE TP SCH (08:39)
[2019-12-01] MEDS: TRIAMCINOLONE ACET 0.1% OINT 15 GM TUBE TP SCH ×2 (08:39→20:55)
[2019-12-01 20:06] VITALS: BP 113/75
[2019-12-01] MEDS: ASCORBIC ACID 500 MG TABLET GT SCH (20:55)
[2019-12-02] MEDS: OMEPRAZOLE 20 MG CAPSULE.DR GT SCH (06:11)
[2019-12-02] MEDS: MULTIVIT, IRON, MIN NO. 8, FA TABLET GT SCH (06:11)
[2019-12-02] MEDS: GLUCERNA 1.2 1000ML LIQUID GT PRN (06:56)
[2019-12-02 07:29] VITALS: BP 113/81
[2019-12-02] MEDS: BACLOFEN 20 MG TABLET GT SCH ×4 (08:31→21:28)
[2019-12-02] MEDS: ACIDOPHILUS/BULGARICUS CHEW TAB GT SCH ×2 (08:31→21:28)
[2019-12-02] MEDS: TRIAMCINOLONE ACET 0.1% OINT 15 GM TUBE TP SCH ×2 (08:32→21:29)
[2019-12-02] MEDS: SERTRALINE HCL 50 MG TABLET GT SCH (08:32)
[2019-12-02] MEDS: Z GUARD REMEDY PASTE 57 GM TUBE TOP SCH ×2 (08:32→21:29)
[2019-12-02] MEDS: METOPROLOL TARTRATE 50 MG TABLET GT SCH ×2 (08:32→21:29)
[2019-12-02] MEDS: SIMETHICONE 80 MG TAB.CHEW GT SCH ×3 (08:32→17:23)
[2019-12-02] MEDS: HYDROGEN PEROXIDE 3% 118 ML BOTTLE TP SCH ×2 (09:00→21:17)
[2019-12-02 19:55] VITALS: BP 125/84
[2019-12-02] MEDS: ASCORBIC ACID 500 MG TABLET GT SCH (21:29)
[2019-12-03] MEDS: GLUCERNA 1.2 1000ML LIQUID GT PRN (02:37)
[2019-12-03] MEDS: OMEPRAZOLE 20 MG CAPSULE.DR GT SCH (06:01)
[2019-12-03 07:49] VITALS: BP 107/73
[2019-12-03] MEDS: HYDROGEN PEROXIDE 3% 118 ML BOTTLE TP SCH ×2 (08:19→21:00)
[2019-12-03] MEDS: TRIAMCINOLONE ACET 0.1% OINT 15 GM TUBE TP SCH ×2 (09:01→21:31)
[2019-12-03] MEDS: SIMETHICONE 80 MG TAB.CHEW GT SCH ×3 (09:01→17:21)
[2019-12-03] MEDS: METOPROLOL TARTRATE 50 MG TABLET GT SCH ×2 (09:01→21:30)
[2019-12-03] MEDS: BACLOFEN 20 MG TABLET GT SCH ×4 (09:01→21:29)
[2019-12-03] MEDS: SERTRALINE HCL 50 MG TABLET GT SCH (09:01)
[2019-12-03] MEDS: Z GUARD REMEDY PASTE 57 GM TUBE TOP SCH ×2 (09:01→21:31)
[2019-12-03] MEDS: ACIDOPHILUS/BULGARICUS CHEW TAB GT SCH ×2 (09:01→21:29)
[2019-12-03 20:09] VITALS: BP 119/80
[2019-12-03] MEDS: ASCORBIC ACID 500 MG TABLET GT SCH (21:30)
[2019-12-04] MEDS: GLUCERNA 1.2 1000ML LIQUID GT PRN ×2 (02:51→10:49)
[2019-12-04] MEDS: MULTIVIT, IRON, MIN NO. 8, FA TABLET GT SCH (06:02)
[2019-12-04] MEDS: OMEPRAZOLE 20 MG CAPSULE.DR GT SCH (06:02)
[2019-12-04 07:47] VITALS: BP 130/80
[2019-12-04] MEDS: BACLOFEN 20 MG TABLET GT SCH ×4 (08:12→21:45)
[2019-12-04] MEDS: SERTRALINE HCL 50 MG TABLET GT SCH (08:15)
[2019-12-04] MEDS: METOPROLOL TARTRATE 50 MG TABLET GT SCH ×2 (08:15→21:45)
[2019-12-04] MEDS: KETOCONAZOLE 2% SHAMPOO 120 ML BOTTLE TP SCH (08:24)
[2019-12-04] MEDS: TRIAMCINOLONE ACET 0.1% OINT 15 GM TUBE TP SCH ×2 (08:24→21:45)
[2019-12-04] MEDS: Z GUARD REMEDY PASTE 57 GM TUBE TOP SCH ×2 (08:24→21:45)
[2019-12-04] MEDS: SIMETHICONE 80 MG TAB.CHEW GT SCH ×3 (08:26→17:06)
[2019-12-04] MEDS: ACIDOPHILUS/BULGARICUS CHEW TAB GT SCH ×2 (08:26→21:45)
[2019-12-04] MEDS: HYDROGEN PEROXIDE 3% 118 ML BOTTLE TP SCH ×2 (09:36→21:48)
--- NOTE | 2019-12-04 20:31 | NUR ---
NOTIFIED RESPONSIBLE GREEN PARTY, JESICA FOFANA, OF COVID-19 POSSIBLE EXPOSURE AND TESTING PLAN. RESPONSIBLE GREEN PARTY VERBALIZED UNDERSTANDING.
[2019-12-04 20:35] VITALS: BP 132/82
[2019-12-04] MEDS: ASCORBIC ACID 500 MG TABLET GT SCH (21:45)
--- NOTE | 2019-12-05 02:00 | NUR ---
New order for COVID-19 test per [facility] COVID-19 requirement.
[2019-12-05] MEDS: OMEPRAZOLE 20 MG CAPSULE.DR GT SCH (05:44)
[2019-12-05 07:54] VITALS: BP 127/83
[2019-12-05] MEDS: METOPROLOL TARTRATE 50 MG TABLET GT SCH ×2 (08:39→20:12)
[2019-12-05] MEDS: ACIDOPHILUS/BULGARICUS CHEW TAB GT SCH ×2 (08:39→20:12)
[2019-12-05] MEDS: BACLOFEN 20 MG TABLET GT SCH ×4 (08:39→20:12)
[2019-12-05] MEDS: SERTRALINE HCL 50 MG TABLET GT SCH (08:40)
[2019-12-05] MEDS: TRIAMCINOLONE ACET 0.1% OINT 15 GM TUBE TP SCH ×2 (08:40→20:12)
[2019-12-05] MEDS: SIMETHICONE 80 MG TAB.CHEW GT SCH ×3 (08:40→17:27)
[2019-12-05] MEDS: Z GUARD REMEDY PASTE 57 GM TUBE TOP SCH ×2 (08:40→20:12)
[2019-12-05] MEDS: HYDROGEN PEROXIDE 3% 118 ML BOTTLE TP SCH ×2 (09:00→21:50)
[2019-12-05] MEDS: GLUCERNA 1.2 1000ML LIQUID GT PRN (12:09)
[2019-12-05 20:08] VITALS: BP 128/76
[2019-12-05] MEDS: ASCORBIC ACID 500 MG TABLET GT SCH (20:12)
[2019-12-06] MEDS: OMEPRAZOLE 20 MG CAPSULE.DR GT SCH (05:41)
[2019-12-06] MEDS: MULTIVIT, IRON, MIN NO. 8, FA TABLET GT SCH (05:41)
[2019-12-06 08:00] VITALS: BP 140/79
[2019-12-06] MEDS: BACLOFEN 20 MG TABLET GT SCH ×4 (08:57→21:06)
[2019-12-06] MEDS: ACIDOPHILUS/BULGARICUS CHEW TAB GT SCH ×2 (08:57→21:06)
[2019-12-06] MEDS: SIMETHICONE 80 MG TAB.CHEW GT SCH ×3 (08:58→17:59)
[2019-12-06] MEDS: TRIAMCINOLONE ACET 0.1% OINT 15 GM TUBE TP SCH ×2 (08:58→21:06)
[2019-12-06] MEDS: METOPROLOL TARTRATE 50 MG TABLET GT SCH ×2 (08:58→21:06)
[2019-12-06] MEDS: Z GUARD REMEDY PASTE 57 GM TUBE TOP SCH ×2 (08:58→21:06)
[2019-12-06] MEDS: SERTRALINE HCL 50 MG TABLET GT SCH (08:58)
[2019-12-06] MEDS: GLUCERNA 1.2 1000ML LIQUID GT PRN ×2 (09:01→21:39)
[2019-12-06] MEDS: HYDROGEN PEROXIDE 3% 118 ML BOTTLE TP SCH ×2 (10:00→21:26)
--- NOTE | 2019-12-06 18:59 | NUR ---
Laboratory call with results,Covid 19 negative.
[2019-12-06 20:41] VITALS: BP 137/78
[2019-12-06] MEDS: ASCORBIC ACID 500 MG TABLET GT SCH (21:06)
[2019-12-07] MEDS: OMEPRAZOLE 20 MG CAPSULE.DR GT SCH (05:32)
[2019-12-07 07:47] VITALS: BP 128/85
[2019-12-07] MEDS: SIMETHICONE 80 MG TAB.CHEW GT SCH ×3 (08:14→17:24)
[2019-12-07] MEDS: BACLOFEN 20 MG TABLET GT SCH ×4 (08:14→20:16)
[2019-12-07] MEDS: Z GUARD REMEDY PASTE 57 GM TUBE TOP SCH ×2 (08:14→20:16)
[2019-12-07] MEDS: ACIDOPHILUS/BULGARICUS CHEW TAB GT SCH ×2 (08:14→20:16)
[2019-12-07] MEDS: METOPROLOL TARTRATE 50 MG TABLET GT SCH ×2 (08:14→20:16)
[2019-12-07] MEDS: SERTRALINE HCL 50 MG TABLET GT SCH (08:14)
[2019-12-07] MEDS: TRIAMCINOLONE ACET 0.1% OINT 15 GM TUBE TP SCH ×2 (08:15→20:16)
[2019-12-07] MEDS: HYDROGEN PEROXIDE 3% 118 ML BOTTLE TP SCH ×2 (09:16→21:24)
[2019-12-07] MEDS: GLUCERNA 1.2 1000ML LIQUID GT PRN (17:24)
--- NOTE | 2019-12-07 19:00 | NUR ---
Left message to Frank zurita's brother to call back to inform him regarding the Covid 19 results.
--- NOTE | 2019-12-07 19:30 | NUR ---
Frank zurita's brother call back aware of the COVID 19 results are negative.
[2019-12-07 20:10] VITALS: BP 117/74
[2019-12-07] MEDS: ASCORBIC ACID 500 MG TABLET GT SCH (20:16)
[2019-12-08] MEDS: OMEPRAZOLE 20 MG CAPSULE.DR GT SCH (05:33)
[2019-12-08] MEDS: MULTIVIT, IRON, MIN NO. 8, FA TABLET GT SCH (05:33)
[2019-12-08] MEDS: HYDROGEN PEROXIDE 3% 118 ML BOTTLE TP SCH ×2 (07:15→21:00)
[2019-12-08 07:43] VITALS: BP 114/77
[2019-12-08] MEDS: ACIDOPHILUS/BULGARICUS CHEW TAB GT SCH ×2 (08:37→21:48)
[2019-12-08] MEDS: METOPROLOL TARTRATE 50 MG TABLET GT SCH ×2 (08:38→21:49)
[2019-12-08] MEDS: SIMETHICONE 80 MG TAB.CHEW GT SCH ×3 (08:38→17:25)
[2019-12-08] MEDS: BACLOFEN 20 MG TABLET GT SCH ×4 (08:38→21:48)
[2019-12-08] MEDS: SERTRALINE HCL 50 MG TABLET GT SCH (08:39)
[2019-12-08] MEDS: KETOCONAZOLE 2% SHAMPOO 120 ML BOTTLE TP SCH (08:40)
[2019-12-08] MEDS: TRIAMCINOLONE ACET 0.1% OINT 15 GM TUBE TP SCH ×2 (08:40→21:49)
[2019-12-08] MEDS: Z GUARD REMEDY PASTE 57 GM TUBE TOP SCH ×2 (08:40→21:49)
[2019-12-08] MEDS: GLUCERNA 1.2 1000ML LIQUID GT PRN (17:25)
[2019-12-08 20:24] VITALS: BP 135/87
[2019-12-08] MEDS: ASCORBIC ACID 500 MG TABLET GT SCH (21:49)
[2019-12-09] MEDS: OMEPRAZOLE 20 MG CAPSULE.DR GT SCH (05:49)
[2019-12-09 07:36] VITALS: BP 127/76
[2019-12-09] MEDS: BACLOFEN 20 MG TABLET GT SCH ×4 (08:08→21:23)
[2019-12-09] MEDS: METOPROLOL TARTRATE 50 MG TABLET GT SCH ×2 (08:08→21:24)
[2019-12-09] MEDS: Z GUARD REMEDY PASTE 57 GM TUBE TOP SCH ×2 (08:08→21:24)
[2019-12-09] MEDS: SERTRALINE HCL 50 MG TABLET GT SCH (08:08)
[2019-12-09] MEDS: ACIDOPHILUS/BULGARICUS CHEW TAB GT SCH ×2 (08:08→21:23)
[2019-12-09] MEDS: SIMETHICONE 80 MG TAB.CHEW GT SCH ×3 (08:08→16:03)
[2019-12-09] MEDS: TRIAMCINOLONE ACET 0.1% OINT 15 GM TUBE TP SCH (08:08)
[2019-12-09] MEDS: HYDROGEN PEROXIDE 3% 118 ML BOTTLE TP SCH ×2 (09:51→21:05)
--- NOTE | 2019-12-09 17:10 | NUR ---
INTERDISCIPLINARY PLAN OF CARE CONFERENCE was held today. Patient's brother was not available to participate in the meeting. Dr. Heaton and the Interdisciplinary team reviewed the current plan of care in detail. RN reported on patient's current medical condition, stating that there have been no changes in condition at this time. See RN IDT conference notes. See also all other disciplines IDT notes and physician's progress notes for additional details.
[2019-12-09 20:28] VITALS: BP 112/72
[2019-12-09] MEDS: ASCORBIC ACID 500 MG TABLET GT SCH (21:24)
[2019-12-10] MEDS: GLUCERNA 1.2 1000ML LIQUID GT PRN ×2 (01:00→18:26)
[2019-12-10] MEDS: MULTIVIT, IRON, MIN NO. 8, FA TABLET GT SCH (05:50)
[2019-12-10] MEDS: OMEPRAZOLE 20 MG CAPSULE.DR GT SCH (05:50)
[2019-12-10] MEDS: SIMETHICONE 80 MG TAB.CHEW GT SCH ×3 (08:24→16:33)
[2019-12-10] MEDS: SERTRALINE HCL 50 MG TABLET GT SCH (08:24)
[2019-12-10] MEDS: ACIDOPHILUS/BULGARICUS CHEW TAB GT SCH ×2 (08:24→20:13)
[2019-12-10] MEDS: BACLOFEN 20 MG TABLET GT SCH ×4 (08:24→20:13)
[2019-12-10] MEDS: Z GUARD REMEDY PASTE 57 GM TUBE TOP SCH ×2 (08:24→20:14)
[2019-12-10] MEDS: METOPROLOL TARTRATE 50 MG TABLET GT SCH ×2 (08:24→20:14)
[2019-12-10] MEDS: HYDROGEN PEROXIDE 3% 118 ML BOTTLE TP SCH ×2 (08:38→21:07)
[2019-12-10 10:00] VITALS: BP 128/80
--- NOTE | 2019-12-10 16:00 | NUR ---
Called and spoke to yudith Marie's brother made aware of the 2nd round of covid19 test to be done this week.
--- NOTE | 2019-12-10 17:03 | NUR ---
New order for COVID-19 test per [facility] COVID-19 requirement.
--- NOTE | 2019-12-10 17:36 | NUR ---
Seen and examined by Dr Heaton no new orders noted.
[2019-12-10 20:00] VITALS: BP 125/80
[2019-12-10] MEDS: ASCORBIC ACID 500 MG TABLET GT SCH (20:14)
[2019-12-11] MEDS: OMEPRAZOLE 20 MG CAPSULE.DR GT SCH (05:39)
[2019-12-11] MEDS: HYDROGEN PEROXIDE 3% 118 ML BOTTLE TP SCH ×2 (07:40→19:23)
[2019-12-11 07:47] VITALS: BP 116/60
[2019-12-11] MEDS: BACLOFEN 20 MG TABLET GT SCH ×4 (09:04→20:09)
[2019-12-11] MEDS: ACIDOPHILUS/BULGARICUS CHEW TAB GT SCH ×2 (09:04→20:09)
[2019-12-11] MEDS: SIMETHICONE 80 MG TAB.CHEW GT SCH ×3 (09:05→16:08)
[2019-12-11] MEDS: KETOCONAZOLE 2% SHAMPOO 120 ML BOTTLE TP SCH (09:05)
[2019-12-11] MEDS: SERTRALINE HCL 50 MG TABLET GT SCH (09:05)
[2019-12-11] MEDS: METOPROLOL TARTRATE 50 MG TABLET GT SCH ×2 (09:05→20:10)
[2019-12-11] MEDS: Z GUARD REMEDY PASTE 57 GM TUBE TOP SCH ×2 (09:05→20:10)
--- NOTE | 2019-12-11 19:15 | NUR ---
PT'S BROTHER AWARE OF COVID 19 TESTING TOMORROW AND IN AGREEMENT.
[2019-12-11] MEDS: ASCORBIC ACID 500 MG TABLET GT SCH (20:10)
[2019-12-11 20:20] VITALS: BP 130/78
[2019-12-12] MEDS: OMEPRAZOLE 20 MG CAPSULE.DR GT SCH (05:07)
[2019-12-12] MEDS: MULTIVIT, IRON, MIN NO. 8, FA TABLET GT SCH (05:44)
[2019-12-12 08:30] VITALS: BP 123/87
[2019-12-12] MEDS: BACLOFEN 20 MG TABLET GT SCH ×4 (08:35→21:00)
[2019-12-12] MEDS: ACIDOPHILUS/BULGARICUS CHEW TAB GT SCH ×2 (08:35→21:00)
[2019-12-12] MEDS: SIMETHICONE 80 MG TAB.CHEW GT SCH ×3 (08:36→17:09)
[2019-12-12] MEDS: SERTRALINE HCL 50 MG TABLET GT SCH (08:36)
[2019-12-12] MEDS: METOPROLOL TARTRATE 50 MG TABLET GT SCH ×2 (08:36→21:00)
[2019-12-12] MEDS: Z GUARD REMEDY PASTE 57 GM TUBE TOP SCH ×2 (08:36→21:00)
[2019-12-12] MEDS: HYDROGEN PEROXIDE 3% 118 ML BOTTLE TP SCH ×2 (09:42→21:59)
[2019-12-12] MEDS: GLUCERNA 1.2 1000ML LIQUID GT PRN (13:50)
[2019-12-12] MEDS: ASCORBIC ACID 500 MG TABLET GT SCH (21:00)
[2019-12-12 22:00] VITALS: BP 128/84
[2019-12-13] MEDS: OMEPRAZOLE 20 MG CAPSULE.DR GT SCH (06:21)
[2019-12-13 07:41] VITALS: BP 120/80
[2019-12-13] MEDS: ACIDOPHILUS/BULGARICUS CHEW TAB GT SCH ×2 (08:42→20:34)
[2019-12-13] MEDS: BACLOFEN 20 MG TABLET GT SCH ×4 (08:42→20:35)
[2019-12-13] MEDS: Z GUARD REMEDY PASTE 57 GM TUBE TOP SCH ×2 (08:43→20:34)
[2019-12-13] MEDS: SERTRALINE HCL 50 MG TABLET GT SCH (08:43)
[2019-12-13] MEDS: SIMETHICONE 80 MG TAB.CHEW GT SCH ×3 (08:43→17:37)
[2019-12-13] MEDS: METOPROLOL TARTRATE 50 MG TABLET GT SCH ×2 (08:46→20:36)
[2019-12-13] MEDS: HYDROGEN PEROXIDE 3% 118 ML BOTTLE TP SCH ×2 (09:00→20:34)
[2019-12-13] MEDS: ASCORBIC ACID 500 MG TABLET GT SCH (20:34)
[2019-12-13 23:11] VITALS: BP 123/69
[2019-12-14] MEDS: MULTIVIT, IRON, MIN NO. 8, FA TABLET GT SCH (06:29)
[2019-12-14] MEDS: OMEPRAZOLE 20 MG CAPSULE.DR GT SCH (06:30)
[2019-12-14 07:40] VITALS: BP 122/77
[2019-12-14] MEDS: ACIDOPHILUS/BULGARICUS CHEW TAB GT SCH ×2 (08:18→21:42)
[2019-12-14] MEDS: BACLOFEN 20 MG TABLET GT SCH ×4 (08:18→21:42)
[2019-12-14] MEDS: SIMETHICONE 80 MG TAB.CHEW GT SCH ×3 (08:19→17:32)
[2019-12-14] MEDS: Z GUARD REMEDY PASTE 57 GM TUBE TOP SCH ×2 (08:19→21:43)
[2019-12-14] MEDS: METOPROLOL TARTRATE 50 MG TABLET GT SCH ×2 (08:19→21:43)
[2019-12-14] MEDS: SERTRALINE HCL 50 MG TABLET GT SCH (08:19)
[2019-12-14] MEDS: HYDROGEN PEROXIDE 3% 118 ML BOTTLE TP SCH ×2 (09:00→21:02)
[2019-12-14] MEDS: GLUCERNA 1.2 1000ML LIQUID GT PRN (11:12)
--- NOTE | 2019-12-14 16:12 | NUR ---
PT'S BROTHER AWARE THAT PT. IS NEGATIVE FOR COVID 19.
[2019-12-14 20:48] VITALS: BP 130/87
[2019-12-14] MEDS: ASCORBIC ACID 500 MG TABLET GT SCH (21:43)
[2019-12-15] MEDS: OMEPRAZOLE 20 MG CAPSULE.DR GT SCH (06:03)
[2019-12-15 07:46] VITALS: BP 127/83
[2019-12-15] MEDS: ACIDOPHILUS/BULGARICUS CHEW TAB GT SCH ×2 (08:15→21:00)
[2019-12-15] MEDS: BACLOFEN 20 MG TABLET GT SCH ×4 (08:15→21:00)
[2019-12-15] MEDS: KETOCONAZOLE 2% SHAMPOO 120 ML BOTTLE TP SCH (08:16)
[2019-12-15] MEDS: SERTRALINE HCL 50 MG TABLET GT SCH (08:16)
[2019-12-15] MEDS: Z GUARD REMEDY PASTE 57 GM TUBE TOP SCH ×2 (08:16→21:01)
[2019-12-15] MEDS: METOPROLOL TARTRATE 50 MG TABLET GT SCH ×2 (08:16→21:01)
[2019-12-15] MEDS: SIMETHICONE 80 MG TAB.CHEW GT SCH ×3 (08:16→16:39)
--- NOTE | 2019-12-15 09:00 | NUR ---
SEEN BY DR. IBRAHIM AND WITH NNO.
[2019-12-15] MEDS: HYDROGEN PEROXIDE 3% 118 ML BOTTLE TP SCH ×2 (09:27→21:30)
[2019-12-15] MEDS: GLUCERNA 1.2 1000ML LIQUID GT PRN (11:39)
--- NOTE | 2019-12-15 12:00 | NUR ---
SEEN BY GLENN Bolaños AND WITH NNO.
[2019-12-15] MEDS: ASCORBIC ACID 500 MG TABLET GT SCH (21:01)
[2019-12-15 21:11] VITALS: BP 132/90
[2019-12-16] MEDS: MULTIVIT, IRON, MIN NO. 8, FA TABLET GT SCH (05:37)
[2019-12-16] MEDS: OMEPRAZOLE 20 MG CAPSULE.DR GT SCH (05:37)
[2019-12-16 07:40] VITALS: BP 129/87
[2019-12-16] MEDS: METOPROLOL TARTRATE 50 MG TABLET GT SCH ×2 (08:53→21:58)
[2019-12-16] MEDS: ACIDOPHILUS/BULGARICUS CHEW TAB GT SCH ×2 (08:53→21:57)
[2019-12-16] MEDS: Z GUARD REMEDY PASTE 57 GM TUBE TOP SCH ×2 (08:53→21:58)
[2019-12-16] MEDS: SERTRALINE HCL 50 MG TABLET GT SCH (08:53)
[2019-12-16] MEDS: SIMETHICONE 80 MG TAB.CHEW GT SCH ×3 (08:53→16:36)
[2019-12-16] MEDS: BACLOFEN 20 MG TABLET GT SCH ×4 (08:53→21:57)
[2019-12-16] MEDS: HYDROGEN PEROXIDE 3% 118 ML BOTTLE TP SCH ×2 (09:40→20:59)
[2019-12-16 20:38] VITALS: BP 128/86
[2019-12-16] MEDS: ASCORBIC ACID 500 MG TABLET GT SCH (21:58)
[2019-12-17] MEDS: OMEPRAZOLE 20 MG CAPSULE.DR GT SCH (05:38)
[2019-12-17] MEDS: GLUCERNA 1.2 1000ML LIQUID GT PRN (06:59)
[2019-12-17 07:46] VITALS: BP 119/84
[2019-12-17] MEDS: BACLOFEN 20 MG TABLET GT SCH ×4 (08:47→21:08)
[2019-12-17] MEDS: METOPROLOL TARTRATE 50 MG TABLET GT SCH ×2 (08:47→21:08)
[2019-12-17] MEDS: SERTRALINE HCL 50 MG TABLET GT SCH (08:47)
[2019-12-17] MEDS: SIMETHICONE 80 MG TAB.CHEW GT SCH ×3 (08:47→17:27)
[2019-12-17] MEDS: Z GUARD REMEDY PASTE 57 GM TUBE TOP SCH ×2 (08:47→21:09)
[2019-12-17] MEDS: ACIDOPHILUS/BULGARICUS CHEW TAB GT SCH ×2 (08:47→21:08)
[2019-12-17] MEDS: HYDROGEN PEROXIDE 3% 118 ML BOTTLE TP SCH ×2 (09:00→21:10)
[2019-12-17 20:50] VITALS: BP 110/75
[2019-12-17] MEDS: ASCORBIC ACID 500 MG TABLET GT SCH (21:09)
[2019-12-18] MEDS: GLUCERNA 1.2 1000ML LIQUID GT PRN (01:50)
[2019-12-18] MEDS: MULTIVIT, IRON, MIN NO. 8, FA TABLET GT SCH (05:18)
[2019-12-18] MEDS: OMEPRAZOLE 20 MG CAPSULE.DR GT SCH (05:18)
[2019-12-18 07:30] VITALS: BP 126/86
[2019-12-18] MEDS: BACLOFEN 20 MG TABLET GT SCH ×4 (08:54→21:00)
[2019-12-18] MEDS: ACIDOPHILUS/BULGARICUS CHEW TAB GT SCH ×2 (08:54→21:00)
[2019-12-18] MEDS: METOPROLOL TARTRATE 50 MG TABLET GT SCH ×2 (08:55→21:00)
[2019-12-18] MEDS: SERTRALINE HCL 50 MG TABLET GT SCH (08:55)
[2019-12-18] MEDS: SIMETHICONE 80 MG TAB.CHEW GT SCH ×3 (08:55→17:15)
[2019-12-18] MEDS: KETOCONAZOLE 2% SHAMPOO 120 ML BOTTLE TP SCH (08:56)
[2019-12-18] MEDS: Z GUARD REMEDY PASTE 57 GM TUBE TOP SCH ×2 (08:56→21:00)
[2019-12-18] MEDS: HYDROGEN PEROXIDE 3% 118 ML BOTTLE TP SCH ×2 (10:00→21:29)
[2019-12-18 20:00] VITALS: BP 115/79
[2019-12-18] MEDS: ASCORBIC ACID 500 MG TABLET GT SCH (21:00)
[2019-12-19] MEDS: GLUCERNA 1.2 1000ML LIQUID GT PRN (03:20)
[2019-12-19] MEDS: OMEPRAZOLE 20 MG CAPSULE.DR GT SCH (05:22)
[2019-12-19 07:31] VITALS: BP 120/75
[2019-12-19] MEDS: METOPROLOL TARTRATE 50 MG TABLET GT SCH ×2 (08:00→21:43)
[2019-12-19] MEDS: SERTRALINE HCL 50 MG TABLET GT SCH (08:00)
[2019-12-19] MEDS: SIMETHICONE 80 MG TAB.CHEW GT SCH ×3 (08:00→17:28)
[2019-12-19] MEDS: Z GUARD REMEDY PASTE 57 GM TUBE TOP SCH ×2 (08:00→21:43)
[2019-12-19] MEDS: BACLOFEN 20 MG TABLET GT SCH ×4 (08:00→21:43)
[2019-12-19] MEDS: ACIDOPHILUS/BULGARICUS CHEW TAB GT SCH ×2 (08:00→21:42)
[2019-12-19] MEDS: HYDROGEN PEROXIDE 3% 118 ML BOTTLE TP SCH ×2 (10:00→21:50)
[2019-12-19] MEDS: ASCORBIC ACID 500 MG TABLET GT SCH (21:43)
[2019-12-19 22:48] VITALS: BP 121/80
[2019-12-20] MEDS: GLUCERNA 1.2 1000ML LIQUID GT PRN (00:51)
[2019-12-20] MEDS: OMEPRAZOLE 20 MG CAPSULE.DR GT SCH (05:55)
[2019-12-20] MEDS: MULTIVIT, IRON, MIN NO. 8, FA TABLET GT SCH (05:55)
[2019-12-20 07:45] VITALS: BP 117/70
[2019-12-20] MEDS: BACLOFEN 20 MG TABLET GT SCH ×4 (08:44→21:32)
[2019-12-20] MEDS: METOPROLOL TARTRATE 50 MG TABLET GT SCH ×2 (08:44→21:32)
[2019-12-20] MEDS: SERTRALINE HCL 50 MG TABLET GT SCH (08:44)
[2019-12-20] MEDS: SIMETHICONE 80 MG TAB.CHEW GT SCH ×3 (08:44→16:20)
[2019-12-20] MEDS: ACIDOPHILUS/BULGARICUS CHEW TAB GT SCH ×2 (08:44→21:32)
[2019-12-20] MEDS: Z GUARD REMEDY PASTE 57 GM TUBE TOP SCH ×2 (08:44→21:32)
[2019-12-20] MEDS: HYDROGEN PEROXIDE 3% 118 ML BOTTLE TP SCH ×2 (09:43→21:45)
[2019-12-20] MEDS: ASCORBIC ACID 500 MG TABLET GT SCH (21:32)
[2019-12-20 23:03] VITALS: BP 113/73
[2019-12-21] MEDS: GLUCERNA 1.2 1000ML LIQUID GT PRN (00:42)
[2019-12-21] MEDS: OMEPRAZOLE 20 MG CAPSULE.DR GT SCH (05:40)
[2019-12-21 07:56] VITALS: BP 118/80
[2019-12-21] MEDS: SIMETHICONE 80 MG TAB.CHEW GT SCH ×3 (08:05→17:46)
[2019-12-21] MEDS: ACIDOPHILUS/BULGARICUS CHEW TAB GT SCH ×2 (08:05→20:59)
[2019-12-21] MEDS: BACLOFEN 20 MG TABLET GT SCH ×4 (08:05→20:59)
[2019-12-21] MEDS: METOPROLOL TARTRATE 50 MG TABLET GT SCH ×2 (08:05→21:00)
[2019-12-21] MEDS: Z GUARD REMEDY PASTE 57 GM TUBE TOP SCH ×2 (08:06→21:00)
[2019-12-21] MEDS: SERTRALINE HCL 50 MG TABLET GT SCH (08:06)
[2019-12-21] MEDS: HYDROGEN PEROXIDE 3% 118 ML BOTTLE TP SCH ×2 (09:00→21:50)
[2019-12-21] MEDS: ASCORBIC ACID 500 MG TABLET GT SCH (21:00)
[2019-12-21 22:38] VITALS: BP 120/79
[2019-12-22] MEDS: GLUCERNA 1.2 1000ML LIQUID GT PRN (01:02)
[2019-12-22] MEDS: MULTIVIT, IRON, MIN NO. 8, FA TABLET GT SCH (05:38)
[2019-12-22] MEDS: OMEPRAZOLE 20 MG CAPSULE.DR GT SCH (05:38)
[2019-12-22 06:49] LABS: BASOPHILS # (AUTO) 0.1 K/uL (0.0-8.0); BASOPHILS % (AUTO) 0.9 % (0.0-2.0); EOSINOPHILS # (AUTO) 0.3 K/uL (0.0-0.7); EOSINOPHILS % (AUTO) 4.1 % (0.0-7.0); HEMATOCRIT 31.3 % (31.2-41.9); HEMOGLOBIN 9.9 g/dL (10.9-14.3); LYMPHOCYTES # (AUTO) 2.3 K/uL (20.0-40.0); LYMPHOCYTES % (AUTO) 35.4 % (20.5-51.5); MEAN CORPUSCULAR HEMOGLOBIN 21.7 uug (24.7-32.8); MEAN CORPUSCULAR HGB CONC 32 g/dL (32.3-35.6); MEAN CORPUSCULAR VOLUME 68.3 fL (75.5-95.3); MONOCYTES # (AUTO) 0.9 K/uL (2.0-10.0); MONOCYTES % (AUTO) 14.3 % (0.0-11.0); NEUTROPHILS # (AUTO) 2.9 K/uL (1.8-8.9); NEUTROPHILS % (AUTO) 45.3 % (38.5-71.5); PLATELET COUNT (AUTO) 305 K/uL (179-408); RED BLOOD CELL COUNT(AUTO) 4.59 MIL/uL (3.63-4.92); WHITE BLOOD COUNT (AUTO) 6.4 K/uL (3.8-11.8)
[2019-12-22 07:14] LABS: CREATININE 0.8 mg/dL (0.6-1.3); POTASSIUM 4.2 mmol/L (3.5-5.1)
[2019-12-22 07:42] VITALS: BP 115/81
[2019-12-22] MEDS: ACIDOPHILUS/BULGARICUS CHEW TAB GT SCH ×2 (08:26→20:45)
[2019-12-22] MEDS: BACLOFEN 20 MG TABLET GT SCH ×4 (08:26→20:45)
[2019-12-22] MEDS: KETOCONAZOLE 2% SHAMPOO 120 ML BOTTLE TP SCH (08:28)
[2019-12-22] MEDS: METOPROLOL TARTRATE 50 MG TABLET GT SCH ×2 (08:28→20:45)
[2019-12-22] MEDS: SIMETHICONE 80 MG TAB.CHEW GT SCH ×3 (08:28→17:50)
[2019-12-22] MEDS: SERTRALINE HCL 50 MG TABLET GT SCH (08:28)
[2019-12-22] MEDS: Z GUARD REMEDY PASTE 57 GM TUBE TOP SCH ×2 (08:28→20:45)
[2019-12-22] MEDS: HYDROGEN PEROXIDE 3% 118 ML BOTTLE TP SCH ×2 (09:18→21:16)
[2019-12-22 20:20] VITALS: BP 112/71
[2019-12-22] MEDS: ASCORBIC ACID 500 MG TABLET GT SCH (20:45)
[2019-12-23] MEDS: GLUCERNA 1.2 1000ML LIQUID GT PRN (03:16)
[2019-12-23] MEDS: OMEPRAZOLE 20 MG CAPSULE.DR GT SCH (05:17)
[2019-12-23 07:42] VITALS: BP 133/88
[2019-12-23] MEDS: BACLOFEN 20 MG TABLET GT SCH ×4 (08:02→21:45)
[2019-12-23] MEDS: METOPROLOL TARTRATE 50 MG TABLET GT SCH ×2 (08:02→21:46)
[2019-12-23] MEDS: ACIDOPHILUS/BULGARICUS CHEW TAB GT SCH ×2 (08:02→21:44)
[2019-12-23] MEDS: SIMETHICONE 80 MG TAB.CHEW GT SCH ×3 (08:03→16:27)
[2019-12-23] MEDS: Z GUARD REMEDY PASTE 57 GM TUBE TOP SCH ×2 (08:03→21:46)
[2019-12-23] MEDS: SERTRALINE HCL 50 MG TABLET GT SCH (08:03)
[2019-12-23] MEDS: HYDROGEN PEROXIDE 3% 118 ML BOTTLE TP SCH ×2 (09:00→20:57)
[2019-12-23 20:25] VITALS: BP 128/77
[2019-12-23 20:27] VITALS: BP_SYST 117; BP_SYST 128; BP_DIAS 63; BP_DIAS 77
[2019-12-23] MEDS: ASCORBIC ACID 500 MG TABLET GT SCH (21:46)
[2019-12-24] MEDS: OMEPRAZOLE 20 MG CAPSULE.DR GT SCH (05:23)
[2019-12-24] MEDS: MULTIVIT, IRON, MIN NO. 8, FA TABLET GT SCH (05:54)
[2019-12-24 08:00] VITALS: BP 118/79
[2019-12-24] MEDS: HYDROGEN PEROXIDE 3% 118 ML BOTTLE TP SCH ×2 (09:00→21:50)
[2019-12-24] MEDS: BACLOFEN 20 MG TABLET GT SCH ×4 (09:09→21:41)
[2019-12-24] MEDS: METOPROLOL TARTRATE 50 MG TABLET GT SCH ×2 (09:09→21:42)
[2019-12-24] MEDS: SIMETHICONE 80 MG TAB.CHEW GT SCH ×3 (09:10→17:20)
[2019-12-24] MEDS: Z GUARD REMEDY PASTE 57 GM TUBE TOP SCH ×2 (09:10→21:42)
[2019-12-24] MEDS: SERTRALINE HCL 50 MG TABLET GT SCH (09:10)
[2019-12-24] MEDS: ACIDOPHILUS/BULGARICUS CHEW TAB GT SCH ×2 (09:13→21:41)
[2019-12-24] MEDS: GLUCERNA 1.2 1000ML LIQUID GT PRN (11:16)
--- NOTE | 2019-12-24 17:30 | NUR ---
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
[2019-12-24 20:19] VITALS: BP 110/79
[2019-12-24] MEDS: NEOMY/BACITRA/POLYMYXIN B OINT UD PACKET TP SCH (21:42)
[2019-12-24] MEDS: TRIAMCINOLONE ACET 0.1% CREAM 15 GM TUBE TP SCH (21:42)
[2019-12-24] MEDS: ASCORBIC ACID 500 MG TABLET GT SCH (21:42)
[2019-12-25] MEDS: OMEPRAZOLE 20 MG CAPSULE.DR GT SCH (05:31)
[2019-12-25 07:40] VITALS: BP 119/85
[2019-12-25] MEDS: ACIDOPHILUS/BULGARICUS CHEW TAB GT SCH ×2 (08:35→21:45)
[2019-12-25] MEDS: BACLOFEN 20 MG TABLET GT SCH ×4 (08:35→21:45)
[2019-12-25] MEDS: METOPROLOL TARTRATE 50 MG TABLET GT SCH ×2 (08:36→21:47)
[2019-12-25] MEDS: SERTRALINE HCL 50 MG TABLET GT SCH (08:37)
[2019-12-25] MEDS: SIMETHICONE 80 MG TAB.CHEW GT SCH ×3 (08:37→16:28)
[2019-12-25] MEDS: Z GUARD REMEDY PASTE 57 GM TUBE TOP SCH ×2 (08:38→21:47)
[2019-12-25] MEDS: TRIAMCINOLONE ACET 0.1% CREAM 15 GM TUBE TP SCH ×2 (08:38→21:47)
[2019-12-25] MEDS: NEOMY/BACITRA/POLYMYXIN B OINT UD PACKET TP SCH ×2 (08:39→21:47)
[2019-12-25] MEDS: KETOCONAZOLE 2% SHAMPOO 120 ML BOTTLE TP SCH (08:39)
[2019-12-25] MEDS: HYDROGEN PEROXIDE 3% 118 ML BOTTLE TP SCH ×2 (10:00→21:53)
[2019-12-25] MEDS: GLUCERNA 1.2 1000ML LIQUID GT PRN (12:15)
[2019-12-25 20:00] VITALS: BP 107/65
[2019-12-25] MEDS: ASCORBIC ACID 500 MG TABLET GT SCH (21:47)
[2019-12-26] MEDS: MULTIVIT, IRON, MIN NO. 8, FA TABLET GT SCH (06:20)
[2019-12-26] MEDS: OMEPRAZOLE 20 MG CAPSULE.DR GT SCH (06:20)
[2019-12-26 07:48] VITALS: BP 120/71
[2019-12-26] MEDS: Z GUARD REMEDY PASTE 57 GM TUBE TOP SCH ×2 (08:38→20:17)
[2019-12-26] MEDS: METOPROLOL TARTRATE 50 MG TABLET GT SCH ×2 (08:38→20:17)
[2019-12-26] MEDS: ACIDOPHILUS/BULGARICUS CHEW TAB GT SCH ×2 (08:38→20:17)
[2019-12-26] MEDS: SERTRALINE HCL 50 MG TABLET GT SCH (08:38)
[2019-12-26] MEDS: SIMETHICONE 80 MG TAB.CHEW GT SCH ×3 (08:38→17:12)
[2019-12-26] MEDS: BACLOFEN 20 MG TABLET GT SCH ×4 (08:38→20:17)
[2019-12-26] MEDS: TRIAMCINOLONE ACET 0.1% CREAM 15 GM TUBE TP SCH ×2 (08:39→20:17)
[2019-12-26] MEDS: NEOMY/BACITRA/POLYMYXIN B OINT UD PACKET TP SCH ×2 (08:39→20:18)
[2019-12-26] MEDS: HYDROGEN PEROXIDE 3% 118 ML BOTTLE TP SCH ×2 (09:25→21:00)
[2019-12-26] MEDS: GLUCERNA 1.2 1000ML LIQUID GT PRN (13:51)
--- NOTE | 2019-12-26 17:25 | NUR ---
SEEN BY DR. IBRAHIM AND WITH NNO.
[2019-12-26 20:00] VITALS: BP 132/71
[2019-12-26] MEDS: ASCORBIC ACID 500 MG TABLET GT SCH (20:17)
[2019-12-27] MEDS: OMEPRAZOLE 20 MG CAPSULE.DR GT SCH (05:15)
[2019-12-27 07:47] VITALS: BP 118/68
[2019-12-27] MEDS: HYDROGEN PEROXIDE 3% 118 ML BOTTLE TP SCH ×2 (09:05→21:11)
[2019-12-27] MEDS: TRIAMCINOLONE ACET 0.1% CREAM 15 GM TUBE TP SCH ×2 (09:57→21:11)
[2019-12-27] MEDS: BACLOFEN 20 MG TABLET GT SCH ×4 (09:57→21:10)
[2019-12-27] MEDS: SERTRALINE HCL 50 MG TABLET GT SCH (09:57)
[2019-12-27] MEDS: Z GUARD REMEDY PASTE 57 GM TUBE TOP SCH ×2 (09:57→21:11)
[2019-12-27] MEDS: METOPROLOL TARTRATE 50 MG TABLET GT SCH ×2 (09:57→21:11)
[2019-12-27] MEDS: ACIDOPHILUS/BULGARICUS CHEW TAB GT SCH ×2 (09:57→21:10)
[2019-12-27] MEDS: SIMETHICONE 80 MG TAB.CHEW GT SCH ×3 (09:57→17:50)
[2019-12-27] MEDS: NEOMY/BACITRA/POLYMYXIN B OINT UD PACKET TP SCH ×2 (09:58→21:11)
[2019-12-27 20:23] VITALS: BP 123/61
[2019-12-27] MEDS: ASCORBIC ACID 500 MG TABLET GT SCH (21:11)
[2019-12-28] MEDS: MULTIVIT, IRON, MIN NO. 8, FA TABLET GT SCH (05:14)
[2019-12-28] MEDS: OMEPRAZOLE 20 MG CAPSULE.DR GT SCH (05:14)
[2019-12-28 07:39] VITALS: BP 135/92
[2019-12-28] MEDS: BACLOFEN 20 MG TABLET GT SCH ×4 (08:26→21:05)
[2019-12-28] MEDS: SERTRALINE HCL 50 MG TABLET GT SCH (08:28)
[2019-12-28] MEDS: SIMETHICONE 80 MG TAB.CHEW GT SCH ×3 (08:28→16:50)
[2019-12-28] MEDS: METOPROLOL TARTRATE 50 MG TABLET GT SCH ×2 (08:28→21:00)
[2019-12-28] MEDS: ACIDOPHILUS/BULGARICUS CHEW TAB GT SCH ×2 (08:28→21:05)
[2019-12-28] MEDS: NEOMY/BACITRA/POLYMYXIN B OINT UD PACKET TP SCH ×2 (08:29→21:05)
[2019-12-28] MEDS: TRIAMCINOLONE ACET 0.1% CREAM 15 GM TUBE TP SCH ×2 (08:29→21:05)
[2019-12-28] MEDS: Z GUARD REMEDY PASTE 57 GM TUBE TOP SCH ×2 (08:29→21:05)
[2019-12-28] MEDS: HYDROGEN PEROXIDE 3% 118 ML BOTTLE TP SCH ×2 (09:17→21:13)
[2019-12-28 20:19] VITALS: BP 90/54
[2019-12-28 20:45] VITALS: BP 127/70
[2019-12-28] MEDS: ASCORBIC ACID 500 MG TABLET GT SCH (21:05)
[2019-12-29] MEDS: OMEPRAZOLE 20 MG CAPSULE.DR GT SCH (05:23)
[2019-12-29] MEDS: GLUCERNA 1.2 1000ML LIQUID GT PRN (05:59)
[2019-12-29 07:50] VITALS: BP 115/77
[2019-12-29] MEDS: ACIDOPHILUS/BULGARICUS CHEW TAB GT SCH ×2 (08:09→20:55)
[2019-12-29] MEDS: METOPROLOL TARTRATE 50 MG TABLET GT SCH ×2 (08:09→20:56)
[2019-12-29] MEDS: BACLOFEN 20 MG TABLET GT SCH ×4 (08:09→20:55)
[2019-12-29] MEDS: SIMETHICONE 80 MG TAB.CHEW GT SCH ×3 (08:10→16:10)
[2019-12-29] MEDS: Z GUARD REMEDY PASTE 57 GM TUBE TOP SCH ×2 (08:10→21:00)
[2019-12-29] MEDS: TRIAMCINOLONE ACET 0.1% CREAM 15 GM TUBE TP SCH ×2 (08:10→21:00)
[2019-12-29] MEDS: KETOCONAZOLE 2% SHAMPOO 120 ML BOTTLE TP SCH (08:10)
[2019-12-29] MEDS: SERTRALINE HCL 50 MG TABLET GT SCH (08:10)
[2019-12-29] MEDS: NEOMY/BACITRA/POLYMYXIN B OINT UD PACKET TP SCH ×2 (08:10→21:00)
[2019-12-29] MEDS: HYDROGEN PEROXIDE 3% 118 ML BOTTLE TP SCH ×2 (09:00→20:49)
--- NOTE | 2019-12-29 12:10 | NUR ---
SEEN BY GLENN Bolaños AND WITH NNO.
[2019-12-29 20:36] VITALS: BP 123/76
[2019-12-29] MEDS: ASCORBIC ACID 500 MG TABLET GT SCH (20:56)
[2019-12-30] MEDS: OMEPRAZOLE 20 MG CAPSULE.DR GT SCH (05:12)
[2019-12-30] MEDS: MULTIVIT, IRON, MIN NO. 8, FA TABLET GT SCH (06:39)
[2019-12-30] MEDS: GLUCERNA 1.2 1000ML LIQUID GT PRN (06:53)
[2019-12-30 07:25] VITALS: BP 112/78
[2019-12-30] MEDS: BACLOFEN 20 MG TABLET GT SCH ×4 (08:27→20:09)
[2019-12-30] MEDS: ACIDOPHILUS/BULGARICUS CHEW TAB GT SCH ×2 (08:27→20:08)
[2019-12-30] MEDS: METOPROLOL TARTRATE 50 MG TABLET GT SCH ×2 (08:28→20:10)
[2019-12-30] MEDS: TRIAMCINOLONE ACET 0.1% CREAM 15 GM TUBE TP SCH ×2 (08:28→20:10)
[2019-12-30] MEDS: Z GUARD REMEDY PASTE 57 GM TUBE TOP SCH ×2 (08:28→20:10)
[2019-12-30] MEDS: NEOMY/BACITRA/POLYMYXIN B OINT UD PACKET TP SCH ×2 (08:28→20:10)
[2019-12-30] MEDS: SERTRALINE HCL 50 MG TABLET GT SCH (08:28)
[2019-12-30] MEDS: SIMETHICONE 80 MG TAB.CHEW GT SCH ×3 (08:28→16:41)
--- NOTE | 2019-12-30 08:30 | NUR ---
Seen and examined by Dr St with no new orders noted.
[2019-12-30] MEDS: HYDROGEN PEROXIDE 3% 118 ML BOTTLE TP SCH ×2 (09:36→21:05)
[2019-12-30 20:00] VITALS: BP 124/78
[2019-12-30] MEDS: ASCORBIC ACID 500 MG TABLET GT SCH (20:10)
[2019-12-31] MEDS: GLUCERNA 1.2 1000ML LIQUID GT PRN (03:30)
[2019-12-31] MEDS: OMEPRAZOLE 20 MG CAPSULE.DR GT SCH (05:28)
[2019-12-31] MEDS: SIMETHICONE 80 MG TAB.CHEW GT SCH ×3 (08:36→16:10)
[2019-12-31] MEDS: METOPROLOL TARTRATE 50 MG TABLET GT SCH ×2 (08:36→20:09)
[2019-12-31] MEDS: ACIDOPHILUS/BULGARICUS CHEW TAB GT SCH ×2 (08:36→20:07)
[2019-12-31] MEDS: SERTRALINE HCL 50 MG TABLET GT SCH (08:36)
[2019-12-31] MEDS: BACLOFEN 20 MG TABLET GT SCH ×4 (08:36→20:08)
[2019-12-31] MEDS: NEOMY/BACITRA/POLYMYXIN B OINT UD PACKET TP SCH ×2 (08:37→20:09)
[2019-12-31] MEDS: TRIAMCINOLONE ACET 0.1% CREAM 15 GM TUBE TP SCH ×2 (08:37→20:09)
[2019-12-31] MEDS: Z GUARD REMEDY PASTE 57 GM TUBE TOP SCH ×2 (08:37→20:09)
[2019-12-31] MEDS: HYDROGEN PEROXIDE 3% 118 ML BOTTLE TP SCH ×2 (09:53→21:50)
[2019-12-31] MEDS: ASCORBIC ACID 500 MG TABLET GT SCH (20:09)
[2019-12-31 20:11] VITALS: BP 114/80
[2020-01-01] MEDS: GLUCERNA 1.2 1000ML LIQUID GT PRN (05:00)
[2020-01-01] MEDS: MULTIVIT, IRON, MIN NO. 8, FA TABLET GT SCH (05:40)
[2020-01-01] MEDS: OMEPRAZOLE 20 MG CAPSULE.DR GT SCH (05:40)
[2020-01-01] MEDS: HYDROGEN PEROXIDE 3% 118 ML BOTTLE TP SCH ×2 (07:17→20:50)
[2020-01-01 07:32] VITALS: BP 113/74
[2020-01-01] MEDS: ACIDOPHILUS/BULGARICUS CHEW TAB GT SCH ×2 (08:55→20:14)
[2020-01-01] MEDS: BACLOFEN 20 MG TABLET GT SCH ×4 (08:55→20:14)
[2020-01-01] MEDS: SIMETHICONE 80 MG TAB.CHEW GT SCH ×3 (08:56→17:10)
[2020-01-01] MEDS: METOPROLOL TARTRATE 50 MG TABLET GT SCH ×2 (08:56→20:15)
[2020-01-01] MEDS: Z GUARD REMEDY PASTE 57 GM TUBE TOP SCH ×2 (08:56→20:16)
[2020-01-01] MEDS: KETOCONAZOLE 2% SHAMPOO 120 ML BOTTLE TP SCH (08:56)
[2020-01-01] MEDS: TRIAMCINOLONE ACET 0.1% CREAM 15 GM TUBE TP SCH ×2 (08:56→20:16)
[2020-01-01] MEDS: NEOMY/BACITRA/POLYMYXIN B OINT UD PACKET TP SCH ×2 (08:56→20:16)
[2020-01-01] MEDS: SERTRALINE HCL 50 MG TABLET GT SCH (08:56)
[2020-01-01 20:00] VITALS: BP 112/75
[2020-01-01] MEDS: ASCORBIC ACID 500 MG TABLET GT SCH (20:15)
[2020-01-02] MEDS: OMEPRAZOLE 20 MG CAPSULE.DR GT SCH (05:43)
[2020-01-02] MEDS: GLUCERNA 1.2 1000ML LIQUID GT PRN ×2 (06:15→22:25)
[2020-01-02 07:30] VITALS: BP 107/72
[2020-01-02] MEDS: HYDROGEN PEROXIDE 3% 118 ML BOTTLE TP SCH ×2 (09:00→21:50)
[2020-01-02] MEDS: ACIDOPHILUS/BULGARICUS CHEW TAB GT SCH ×2 (09:04→20:07)
[2020-01-02] MEDS: BACLOFEN 20 MG TABLET GT SCH ×4 (09:04→20:07)
[2020-01-02] MEDS: Z GUARD REMEDY PASTE 57 GM TUBE TOP SCH ×2 (09:05→20:07)
[2020-01-02] MEDS: SIMETHICONE 80 MG TAB.CHEW GT SCH ×3 (09:05→17:17)
[2020-01-02] MEDS: SERTRALINE HCL 50 MG TABLET GT SCH (09:05)
[2020-01-02] MEDS: NEOMY/BACITRA/POLYMYXIN B OINT UD PACKET TP SCH ×2 (09:05→20:07)
[2020-01-02] MEDS: METOPROLOL TARTRATE 50 MG TABLET GT SCH ×2 (09:05→20:07)
[2020-01-02] MEDS: TRIAMCINOLONE ACET 0.1% CREAM 15 GM TUBE TP SCH ×2 (09:05→20:07)
[2020-01-02] MEDS: ASCORBIC ACID 500 MG TABLET GT SCH (20:07)
[2020-01-02 20:20] VITALS: BP 129/79
[2020-01-03] MEDS: MULTIVIT, IRON, MIN NO. 8, FA TABLET GT SCH (05:33)
[2020-01-03] MEDS: OMEPRAZOLE 20 MG CAPSULE.DR GT SCH (05:33)
[2020-01-03 07:58] VITALS: BP 115/75
[2020-01-03] MEDS: HYDROGEN PEROXIDE 3% 118 ML BOTTLE TP SCH ×2 (08:49→21:49)
[2020-01-03] MEDS: SERTRALINE HCL 50 MG TABLET GT SCH (09:23)
[2020-01-03] MEDS: SIMETHICONE 80 MG TAB.CHEW GT SCH ×3 (09:23→17:38)
[2020-01-03] MEDS: Z GUARD REMEDY PASTE 57 GM TUBE TOP SCH ×2 (09:23→21:07)
[2020-01-03] MEDS: ACIDOPHILUS/BULGARICUS CHEW TAB GT SCH ×2 (09:23→21:06)
[2020-01-03] MEDS: BACLOFEN 20 MG TABLET GT SCH ×4 (09:23→21:06)
[2020-01-03] MEDS: TRIAMCINOLONE ACET 0.1% CREAM 15 GM TUBE TP SCH ×2 (09:25→21:07)
[2020-01-03] MEDS: METOPROLOL TARTRATE 50 MG TABLET GT SCH ×2 (09:25→21:07)
[2020-01-03] MEDS: NEOMY/BACITRA/POLYMYXIN B OINT UD PACKET TP SCH ×2 (09:25→21:07)
[2020-01-03] MEDS: GLUCERNA 1.2 1000ML LIQUID GT PRN (15:00)
--- NOTE | 2020-01-03 17:45 | NUR ---
Brother notified result for covid19 test was negative.
[2020-01-03 20:00] VITALS: BP 120/78
[2020-01-03] MEDS: ASCORBIC ACID 500 MG TABLET GT SCH (21:07)
[2020-01-04] MEDS: OMEPRAZOLE 20 MG CAPSULE.DR GT SCH (06:16)
[2020-01-04 07:34] VITALS: BP 128/79
[2020-01-04] MEDS: BACLOFEN 20 MG TABLET GT SCH ×4 (09:03→21:29)
[2020-01-04] MEDS: ACIDOPHILUS/BULGARICUS CHEW TAB GT SCH ×2 (09:03→21:29)
[2020-01-04] MEDS: Z GUARD REMEDY PASTE 57 GM TUBE TOP SCH ×2 (09:04→21:29)
[2020-01-04] MEDS: METOPROLOL TARTRATE 50 MG TABLET GT SCH ×2 (09:04→21:29)
[2020-01-04] MEDS: SERTRALINE HCL 50 MG TABLET GT SCH (09:04)
[2020-01-04] MEDS: SIMETHICONE 80 MG TAB.CHEW GT SCH ×3 (09:04→17:15)
[2020-01-04] MEDS: NEOMY/BACITRA/POLYMYXIN B OINT UD PACKET TP SCH ×2 (09:05→21:30)
[2020-01-04] MEDS: TRIAMCINOLONE ACET 0.1% CREAM 15 GM TUBE TP SCH ×2 (09:05→21:30)
[2020-01-04] MEDS: HYDROGEN PEROXIDE 3% 118 ML BOTTLE TP SCH ×2 (10:00→20:40)
[2020-01-04] MEDS: GLUCERNA 1.2 1000ML LIQUID GT PRN (11:45)
--- NOTE | 2020-01-04 16:33 | NUR ---
Covid19 test done.
[2020-01-04 20:08] VITALS: BP 132/85
[2020-01-04] MEDS: ASCORBIC ACID 500 MG TABLET GT SCH (21:29)
[2020-01-05] MEDS: GLUCERNA 1.2 1000ML LIQUID GT PRN (04:00)
[2020-01-05] MEDS: MULTIVIT, IRON, MIN NO. 8, FA TABLET GT SCH (05:44)
[2020-01-05] MEDS: OMEPRAZOLE 20 MG CAPSULE.DR GT SCH (05:44)
[2020-01-05] MEDS: HYDROGEN PEROXIDE 3% 118 ML BOTTLE TP SCH ×2 (07:30→20:56)
[2020-01-05 07:37] VITALS: BP 118/67
[2020-01-05] MEDS: ACIDOPHILUS/BULGARICUS CHEW TAB GT SCH ×2 (08:25→21:29)
[2020-01-05] MEDS: BACLOFEN 20 MG TABLET GT SCH ×4 (08:25→21:29)
[2020-01-05] MEDS: METOPROLOL TARTRATE 50 MG TABLET GT SCH ×2 (08:25→21:29)
[2020-01-05] MEDS: SIMETHICONE 80 MG TAB.CHEW GT SCH ×3 (08:25→17:11)
[2020-01-05] MEDS: SERTRALINE HCL 50 MG TABLET GT SCH (08:26)
[2020-01-05] MEDS: Z GUARD REMEDY PASTE 57 GM TUBE TOP SCH ×2 (08:26→21:29)
[2020-01-05] MEDS: NEOMY/BACITRA/POLYMYXIN B OINT UD PACKET TP SCH ×2 (08:26→21:30)
[2020-01-05] MEDS: TRIAMCINOLONE ACET 0.1% CREAM 15 GM TUBE TP SCH ×2 (08:26→21:29)
[2020-01-05] MEDS: KETOCONAZOLE 2% SHAMPOO 120 ML BOTTLE TP SCH (08:26)
--- NOTE | 2020-01-05 10:47 | NUR ---
Seen by Natalya Culver, notified of rectal bleeding, new order carried out, cbc in am, continue monitoring
[2020-01-05 20:17] VITALS: BP 132/74
[2020-01-05] MEDS: ASCORBIC ACID 500 MG TABLET GT SCH (21:29)
[2020-01-06] MEDS: GLUCERNA 1.2 1000ML LIQUID GT PRN (04:27)
[2020-01-06] MEDS: OMEPRAZOLE 20 MG CAPSULE.DR GT SCH (05:43)
[2020-01-06 07:25] VITALS: BP 139/77
[2020-01-06] MEDS: METOPROLOL TARTRATE 50 MG TABLET GT SCH ×2 (08:21→21:44)
[2020-01-06] MEDS: ACIDOPHILUS/BULGARICUS CHEW TAB GT SCH ×2 (08:21→21:38)
[2020-01-06] MEDS: BACLOFEN 20 MG TABLET GT SCH ×4 (08:21→21:38)
[2020-01-06] MEDS: Z GUARD REMEDY PASTE 57 GM TUBE TOP SCH ×2 (08:22→21:38)
[2020-01-06] MEDS: SIMETHICONE 80 MG TAB.CHEW GT SCH ×3 (08:22→17:23)
[2020-01-06] MEDS: SERTRALINE HCL 50 MG TABLET GT SCH (08:22)
[2020-01-06] MEDS: TRIAMCINOLONE ACET 0.1% CREAM 15 GM TUBE TP SCH ×2 (08:22→21:38)
[2020-01-06] MEDS: NEOMY/BACITRA/POLYMYXIN B OINT UD PACKET TP SCH ×2 (08:22→21:38)
[2020-01-06] MEDS: HYDROGEN PEROXIDE 3% 118 ML BOTTLE TP SCH ×2 (09:38→21:41)
[2020-01-06 10:30] LABS: BASOPHILS # (AUTO) 0.1 K/uL (0.0-8.0); BASOPHILS % (AUTO) 1.1 % (0.0-2.0); EOSINOPHILS # (AUTO) 0.3 K/uL (0.0-0.7); HEMATOCRIT 32.5 % (31.2-41.9); HEMOGLOBIN 9.8 g/dL (10.9-14.3); LYMPHOCYTES # (AUTO) 2.4 K/uL (20.0-40.0); LYMPHOCYTES % (AUTO) 33.9 % (20.5-51.5); MEAN CORPUSCULAR HEMOGLOBIN 20.9 uug (24.7-32.8); MEAN CORPUSCULAR HGB CONC 30 g/dL (32.3-35.6); MEAN CORPUSCULAR VOLUME 69.4 fL (75.5-95.3); MONOCYTES # (AUTO) 0.6 K/uL (2.0-10.0); MONOCYTES % (AUTO) 8.8 % (0.0-11.0); NEUTROPHILS # (AUTO) 3.6 K/uL (1.8-8.9); NEUTROPHILS % (AUTO) 52.2 % (38.5-71.5); PLATELET COUNT (AUTO) 344 K/uL (179-408); RED BLOOD CELL COUNT(AUTO) 4.68 MIL/uL (3.63-4.92)
[2020-01-06] MEDS: ASCORBIC ACID 500 MG TABLET GT SCH (21:38)
[2020-01-06 22:00] VITALS: BP 112/70
[2020-01-07] MEDS: GLUCERNA 1.2 1000ML LIQUID GT PRN (03:45)
[2020-01-07] MEDS: MULTIVIT, IRON, MIN NO. 8, FA TABLET GT SCH (05:31)
[2020-01-07] MEDS: OMEPRAZOLE 20 MG CAPSULE.DR GT SCH (05:31)
[2020-01-07 08:00] VITALS: BP 122/80
[2020-01-07] MEDS: ACIDOPHILUS/BULGARICUS CHEW TAB GT SCH ×2 (08:30→20:47)
[2020-01-07] MEDS: BACLOFEN 20 MG TABLET GT SCH ×4 (08:31→20:48)
[2020-01-07] MEDS: METOPROLOL TARTRATE 50 MG TABLET GT SCH ×2 (08:31→20:50)
[2020-01-07] MEDS: SERTRALINE HCL 50 MG TABLET GT SCH (08:32)
[2020-01-07] MEDS: Z GUARD REMEDY PASTE 57 GM TUBE TOP SCH ×2 (08:32→20:50)
[2020-01-07] MEDS: SIMETHICONE 80 MG TAB.CHEW GT SCH ×3 (08:32→17:14)
[2020-01-07] MEDS: TRIAMCINOLONE ACET 0.1% CREAM 15 GM TUBE TP SCH ×2 (09:00→20:52)
[2020-01-07] MEDS: NEOMY/BACITRA/POLYMYXIN B OINT UD PACKET TP SCH ×2 (09:00→20:52)
[2020-01-07] MEDS: HYDROGEN PEROXIDE 3% 118 ML BOTTLE TP SCH ×2 (10:05→20:09)
--- NOTE | 2020-01-07 14:00 | NUR ---
Seen and examined By Dr St with new orders noted,for cbc weekly x 4.
[2020-01-07] MEDS: ASCORBIC ACID 500 MG TABLET GT SCH (20:51)
[2020-01-07 20:56] VITALS: BP 115/74
[2020-01-08] MEDS: GLUCERNA 1.2 1000ML LIQUID GT PRN (03:55)
[2020-01-08] MEDS: OMEPRAZOLE 20 MG CAPSULE.DR GT SCH (05:14)
[2020-01-08 07:56] VITALS: BP 124/67
[2020-01-08] MEDS: BACLOFEN 20 MG TABLET GT SCH ×4 (08:32→21:39)
[2020-01-08] MEDS: ACIDOPHILUS/BULGARICUS CHEW TAB GT SCH ×2 (08:32→21:39)
[2020-01-08] MEDS: METOPROLOL TARTRATE 50 MG TABLET GT SCH ×2 (08:33→21:40)
[2020-01-08] MEDS: TRIAMCINOLONE ACET 0.1% CREAM 15 GM TUBE TP SCH ×2 (08:33→21:40)
[2020-01-08] MEDS: KETOCONAZOLE 2% SHAMPOO 120 ML BOTTLE TP SCH (08:33)
[2020-01-08] MEDS: NEOMY/BACITRA/POLYMYXIN B OINT UD PACKET TP SCH ×2 (08:33→21:41)
[2020-01-08] MEDS: Z GUARD REMEDY PASTE 57 GM TUBE TOP SCH ×2 (08:33→21:40)
[2020-01-08] MEDS: SERTRALINE HCL 50 MG TABLET GT SCH (08:33)
[2020-01-08] MEDS: SIMETHICONE 80 MG TAB.CHEW GT SCH ×3 (08:33→16:55)
[2020-01-08] MEDS: HYDROGEN PEROXIDE 3% 118 ML BOTTLE TP SCH ×2 (09:00→21:03)
[2020-01-08 20:00] VITALS: BP 119/88
[2020-01-08] MEDS: ASCORBIC ACID 500 MG TABLET GT SCH (21:40)
[2020-01-09] MEDS: GLUCERNA 1.2 1000ML LIQUID GT PRN (02:01)
[2020-01-09] MEDS: MULTIVIT, IRON, MIN NO. 8, FA TABLET GT SCH (05:35)
[2020-01-09] MEDS: OMEPRAZOLE 20 MG CAPSULE.DR GT SCH (05:35)
[2020-01-09 07:35] VITALS: BP 120/63
[2020-01-09] MEDS: ACIDOPHILUS/BULGARICUS CHEW TAB GT SCH ×2 (08:40→21:32)
[2020-01-09] MEDS: HYDROGEN PEROXIDE 3% 118 ML BOTTLE TP SCH ×2 (08:41→21:50)
[2020-01-09] MEDS: Z GUARD REMEDY PASTE 57 GM TUBE TOP SCH ×2 (08:41→21:32)
[2020-01-09] MEDS: BACLOFEN 20 MG TABLET GT SCH ×4 (08:41→21:32)
[2020-01-09] MEDS: TRIAMCINOLONE ACET 0.1% CREAM 15 GM TUBE TP SCH ×2 (08:41→21:32)
[2020-01-09] MEDS: METOPROLOL TARTRATE 50 MG TABLET GT SCH ×2 (08:41→21:32)
[2020-01-09] MEDS: SIMETHICONE 80 MG TAB.CHEW GT SCH ×3 (08:41→16:37)
[2020-01-09] MEDS: SERTRALINE HCL 50 MG TABLET GT SCH (08:41)
[2020-01-09] MEDS: NEOMY/BACITRA/POLYMYXIN B OINT UD PACKET TP SCH ×2 (08:42→21:35)
--- NOTE | 2020-01-09 15:00 | NUR ---
SEEN BY DR. IBRAHIM AND WITH NNO.
[2020-01-09] MEDS: ASCORBIC ACID 500 MG TABLET GT SCH (21:32)
[2020-01-09 22:00] VITALS: BP 123/82
[2020-01-09] MEDS: ACETAMINOPHEN 650 MG/20 ML UDC- SA PATIENTS-PAIN ONLY GT PRN (23:10)
[2020-01-10] MEDS: GLUCERNA 1.2 1000ML LIQUID GT PRN (02:43)
[2020-01-10] MEDS: OMEPRAZOLE 20 MG CAPSULE.DR GT SCH (05:51)
[2020-01-10 07:37] VITALS: BP 125/67
[2020-01-10] MEDS: HYDROGEN PEROXIDE 3% 118 ML BOTTLE TP SCH ×2 (08:10→21:27)
[2020-01-10] MEDS: METOPROLOL TARTRATE 50 MG TABLET GT SCH ×2 (08:34→21:41)
[2020-01-10] MEDS: Z GUARD REMEDY PASTE 57 GM TUBE TOP SCH ×2 (08:34→21:41)
[2020-01-10] MEDS: TRIAMCINOLONE ACET 0.1% CREAM 15 GM TUBE TP SCH ×2 (08:34→21:41)
[2020-01-10] MEDS: SERTRALINE HCL 50 MG TABLET GT SCH (08:34)
[2020-01-10] MEDS: NEOMY/BACITRA/POLYMYXIN B OINT UD PACKET TP SCH ×2 (08:34→21:41)
[2020-01-10] MEDS: SIMETHICONE 80 MG TAB.CHEW GT SCH ×3 (08:34→16:39)
[2020-01-10] MEDS: BACLOFEN 20 MG TABLET GT SCH ×4 (08:34→21:41)
[2020-01-10] MEDS: ACIDOPHILUS/BULGARICUS CHEW TAB GT SCH ×2 (08:37→21:41)
[2020-01-10 20:20] VITALS: BP 127/80
[2020-01-10] MEDS: ASCORBIC ACID 500 MG TABLET GT SCH (21:41)
[2020-01-11] MEDS: GLUCERNA 1.2 1000ML LIQUID GT PRN (01:53)
[2020-01-11] MEDS: OMEPRAZOLE 20 MG CAPSULE.DR GT SCH (05:26)
[2020-01-11] MEDS: MULTIVIT, IRON, MIN NO. 8, FA TABLET GT SCH (05:39)
[2020-01-11 08:01] VITALS: BP 115/82
[2020-01-11] MEDS: HYDROGEN PEROXIDE 3% 118 ML BOTTLE TP SCH ×2 (08:42→19:11)
[2020-01-11] MEDS: ACIDOPHILUS/BULGARICUS CHEW TAB GT SCH ×2 (09:07→20:52)
[2020-01-11] MEDS: SIMETHICONE 80 MG TAB.CHEW GT SCH ×3 (09:07→17:55)
[2020-01-11] MEDS: SERTRALINE HCL 50 MG TABLET GT SCH (09:07)
[2020-01-11] MEDS: BACLOFEN 20 MG TABLET GT SCH ×4 (09:07→20:52)
[2020-01-11] MEDS: METOPROLOL TARTRATE 50 MG TABLET GT SCH ×2 (09:07→20:52)
[2020-01-11] MEDS: Z GUARD REMEDY PASTE 57 GM TUBE TOP SCH ×2 (09:08→20:53)
[2020-01-11] MEDS: TRIAMCINOLONE ACET 0.1% CREAM 15 GM TUBE TP SCH ×2 (09:08→20:53)
[2020-01-11] MEDS: NEOMY/BACITRA/POLYMYXIN B OINT UD PACKET TP SCH ×2 (09:08→20:53)
[2020-01-11 20:47] VITALS: BP 116/80
[2020-01-11] MEDS: ASCORBIC ACID 500 MG TABLET GT SCH (20:52)
[2020-01-12] MEDS: GLUCERNA 1.2 1000ML LIQUID GT PRN (04:08)
[2020-01-12] MEDS: OMEPRAZOLE 20 MG CAPSULE.DR GT SCH (06:15)
[2020-01-12 07:40] VITALS: BP 118/78
[2020-01-12] MEDS: NEOMY/BACITRA/POLYMYXIN B OINT UD PACKET TP SCH ×2 (09:00→21:04)
[2020-01-12] MEDS: TRIAMCINOLONE ACET 0.1% CREAM 15 GM TUBE TP SCH ×2 (09:00→21:04)
[2020-01-12] MEDS: ACIDOPHILUS/BULGARICUS CHEW TAB GT SCH ×2 (09:00→21:03)
[2020-01-12] MEDS: KETOCONAZOLE 2% SHAMPOO 120 ML BOTTLE TP SCH (09:00)
[2020-01-12] MEDS: SERTRALINE HCL 50 MG TABLET GT SCH (09:00)
[2020-01-12] MEDS: Z GUARD REMEDY PASTE 57 GM TUBE TOP SCH ×2 (09:00→21:03)
[2020-01-12] MEDS: SIMETHICONE 80 MG TAB.CHEW GT SCH ×3 (09:00→17:00)
[2020-01-12] MEDS: BACLOFEN 20 MG TABLET GT SCH ×4 (09:00→21:03)
[2020-01-12] MEDS: METOPROLOL TARTRATE 50 MG TABLET GT SCH ×2 (09:00→21:03)
[2020-01-12] MEDS: HYDROGEN PEROXIDE 3% 118 ML BOTTLE TP SCH ×2 (09:34→21:07)
--- NOTE | 2020-01-12 15:30 | NUR ---
NEW ORDER FOR COVID 19 TEST CARRIED OUT.
--- NOTE | 2020-01-12 16:21 | NUR ---
Family was informed about the covid-19 test to be done witht he pt. Family verbalized understanding.
[2020-01-12 20:14] VITALS: BP 117/77
[2020-01-12] MEDS: ASCORBIC ACID 500 MG TABLET GT SCH (21:03)
[2020-01-13 06:02] LABS: BASOPHILS # (AUTO) 0.1 K/uL (0.0-8.0); BASOPHILS % (AUTO) 0.8 % (0.0-2.0); EOSINOPHILS # (AUTO) 0.4 K/uL (0.0-0.7); HEMATOCRIT 31.8 % (31.2-41.9); HEMOGLOBIN 9.8 g/dL (10.9-14.3); LYMPHOCYTES # (AUTO) 2.9 K/uL (20.0-40.0); LYMPHOCYTES % (AUTO) 39.1 % (20.5-51.5); MEAN CORPUSCULAR HEMOGLOBIN 21.1 uug (24.7-32.8); MEAN CORPUSCULAR HGB CONC 31 g/dL (32.3-35.6); MEAN CORPUSCULAR VOLUME 68.8 fL (75.5-95.3); MONOCYTES # (AUTO) 0.9 K/uL (2.0-10.0); MONOCYTES % (AUTO) 12.6 % (0.0-11.0); NEUTROPHILS # (AUTO) 3.1 K/uL (1.8-8.9); NEUTROPHILS % (AUTO) 41.5 % (38.5-71.5); PLATELET COUNT (AUTO) 333 K/uL (179-408); RED BLOOD CELL COUNT(AUTO) 4.62 MIL/uL (3.63-4.92); WHITE BLOOD COUNT (AUTO) 7.4 K/uL (3.8-11.8)
[2020-01-13] MEDS: MULTIVIT, IRON, MIN NO. 8, FA TABLET GT SCH (06:25)
[2020-01-13] MEDS: OMEPRAZOLE 20 MG CAPSULE.DR GT SCH (06:25)
[2020-01-13 07:25] VITALS: BP 131/88
[2020-01-13] MEDS: HYDROGEN PEROXIDE 3% 118 ML BOTTLE TP SCH ×2 (09:08→21:00)
[2020-01-13] MEDS: ACIDOPHILUS/BULGARICUS CHEW TAB GT SCH ×2 (09:18→20:58)
[2020-01-13] MEDS: BACLOFEN 20 MG TABLET GT SCH ×4 (09:18→20:58)
[2020-01-13] MEDS: METOPROLOL TARTRATE 50 MG TABLET GT SCH ×2 (09:19→20:59)
[2020-01-13] MEDS: TRIAMCINOLONE ACET 0.1% CREAM 15 GM TUBE TP SCH ×2 (09:19→21:00)
[2020-01-13] MEDS: Z GUARD REMEDY PASTE 57 GM TUBE TOP SCH ×2 (09:19→21:00)
[2020-01-13] MEDS: SIMETHICONE 80 MG TAB.CHEW GT SCH ×3 (09:19→17:00)
[2020-01-13] MEDS: SERTRALINE HCL 50 MG TABLET GT SCH (09:19)
[2020-01-13] MEDS: NEOMY/BACITRA/POLYMYXIN B OINT UD PACKET TP SCH ×2 (09:19→21:00)
[2020-01-13] MEDS: ACETAMINOPHEN 650 MG/20 ML UDC- SA PATIENTS-PAIN ONLY GT PRN (10:52)
[2020-01-13] MEDS: [UNRECOGNIZED DRUG - OTHER] RC PRN (10:52)
--- NOTE | 2020-01-13 15:44 | NUR ---
INTERDISCIPLINARY PLAN OF CARE CONFERENCE was held today. Patient's family was not available to participate in the meeting. Dr. Heatno and the Interdisciplinary Team reviewed the current plan of care in detail. RN reported on patient's medical condition, and lab findings. See RN IDT conference notes. No major changes in medical condition were reported by nursing or by other disciplines. See all other disciplines IDT notes and physician's progress notes for additional details.
[2020-01-13 20:17] VITALS: BP 132/86
[2020-01-13] MEDS: ASCORBIC ACID 500 MG TABLET GT SCH (20:59)
[2020-01-14] MEDS: GLUCERNA 1.2 1000ML LIQUID GT PRN (04:02)
[2020-01-14] MEDS: OMEPRAZOLE 20 MG CAPSULE.DR GT SCH (05:10)
[2020-01-14 08:00] VITALS: BP 138/73
[2020-01-14] MEDS: BACLOFEN 20 MG TABLET GT SCH ×4 (08:53→20:52)
[2020-01-14] MEDS: ACIDOPHILUS/BULGARICUS CHEW TAB GT SCH ×2 (08:53→20:52)
[2020-01-14] MEDS: METOPROLOL TARTRATE 50 MG TABLET GT SCH ×2 (08:54→20:52)
[2020-01-14] MEDS: SIMETHICONE 80 MG TAB.CHEW GT SCH ×3 (08:54→17:50)
[2020-01-14] MEDS: TRIAMCINOLONE ACET 0.1% CREAM 15 GM TUBE TP SCH ×2 (08:55→20:52)
[2020-01-14] MEDS: SERTRALINE HCL 50 MG TABLET GT SCH (08:55)
[2020-01-14] MEDS: NEOMY/BACITRA/POLYMYXIN B OINT UD PACKET TP SCH ×2 (08:55→20:53)
[2020-01-14] MEDS: Z GUARD REMEDY PASTE 57 GM TUBE TOP SCH ×2 (08:55→20:52)
[2020-01-14] MEDS: HYDROGEN PEROXIDE 3% 118 ML BOTTLE TP SCH ×2 (09:00→20:54)
[2020-01-14 20:15] VITALS: BP 138/82
[2020-01-14] MEDS: ASCORBIC ACID 500 MG TABLET GT SCH (20:52)
[2020-01-15] MEDS: GLUCERNA 1.2 1000ML LIQUID GT PRN (05:32)
[2020-01-15] MEDS: MULTIVIT, IRON, MIN NO. 8, FA TABLET GT SCH (05:32)
[2020-01-15] MEDS: OMEPRAZOLE 20 MG CAPSULE.DR GT SCH (05:32)
[2020-01-15] MEDS: ACETAMINOPHEN 650 MG/20 ML UDC- SA PATIENTS-PAIN ONLY GT PRN (05:33)
[2020-01-15] MEDS: BACLOFEN 20 MG TABLET GT SCH ×4 (09:00→20:41)
[2020-01-15] MEDS: KETOCONAZOLE 2% SHAMPOO 120 ML BOTTLE TP SCH (09:00)
[2020-01-15] MEDS: SERTRALINE HCL 50 MG TABLET GT SCH (09:00)
[2020-01-15] MEDS: SIMETHICONE 80 MG TAB.CHEW GT SCH ×3 (09:00→17:14)
[2020-01-15] MEDS: TRIAMCINOLONE ACET 0.1% CREAM 15 GM TUBE TP SCH ×2 (09:00→20:44)
[2020-01-15] MEDS: Z GUARD REMEDY PASTE 57 GM TUBE TOP SCH ×2 (09:00→20:44)
[2020-01-15] MEDS: METOPROLOL TARTRATE 50 MG TABLET GT SCH ×2 (09:00→20:44)
[2020-01-15] MEDS: NEOMY/BACITRA/POLYMYXIN B OINT UD PACKET TP SCH ×2 (09:00→20:44)
[2020-01-15] MEDS: ACIDOPHILUS/BULGARICUS CHEW TAB GT SCH ×2 (09:00→20:41)
[2020-01-15] MEDS: HYDROGEN PEROXIDE 3% 118 ML BOTTLE TP SCH ×2 (10:10→20:44)
[2020-01-15] MEDS: ASCORBIC ACID 500 MG TABLET GT SCH (20:44)
[2020-01-15 22:30] VITALS: BP 104/68
[2020-01-16] MEDS: OMEPRAZOLE 20 MG CAPSULE.DR GT SCH (05:02)
--- NOTE | 2020-01-16 07:35 | NUR ---
CALLED AND LEAVE MSG TO PT'S BROTHER FOR COVID 19 TESTING IS NEGATIVE.
[2020-01-16 07:51] VITALS: BP 119/63
[2020-01-16] MEDS: ACIDOPHILUS/BULGARICUS CHEW TAB GT SCH ×2 (08:33→20:17)
[2020-01-16] MEDS: BACLOFEN 20 MG TABLET GT SCH ×4 (08:33→20:17)
[2020-01-16] MEDS: SIMETHICONE 80 MG TAB.CHEW GT SCH ×3 (08:34→17:16)
[2020-01-16] MEDS: Z GUARD REMEDY PASTE 57 GM TUBE TOP SCH ×2 (08:34→20:18)
[2020-01-16] MEDS: METOPROLOL TARTRATE 50 MG TABLET GT SCH ×2 (08:34→20:18)
[2020-01-16] MEDS: SERTRALINE HCL 50 MG TABLET GT SCH (08:34)
[2020-01-16] MEDS: TRIAMCINOLONE ACET 0.1% CREAM 15 GM TUBE TP SCH ×2 (08:35→20:18)
[2020-01-16] MEDS: NEOMY/BACITRA/POLYMYXIN B OINT UD PACKET TP SCH ×2 (08:35→20:18)
[2020-01-16] MEDS: HYDROGEN PEROXIDE 3% 118 ML BOTTLE TP SCH ×2 (09:00→21:46)
[2020-01-16] MEDS: GLUCERNA 1.2 1000ML LIQUID GT PRN (20:00)
[2020-01-16] MEDS: ASCORBIC ACID 500 MG TABLET GT SCH (20:18)
[2020-01-16 20:53] VITALS: BP 136/89
[2020-01-17] MEDS: MULTIVIT, IRON, MIN NO. 8, FA TABLET GT SCH (05:36)
[2020-01-17] MEDS: OMEPRAZOLE 20 MG CAPSULE.DR GT SCH (05:36)
[2020-01-17 08:00] VITALS: BP 110/68
[2020-01-17] MEDS: HYDROGEN PEROXIDE 3% 118 ML BOTTLE TP SCH ×2 (09:00→21:04)
[2020-01-17] MEDS: SERTRALINE HCL 50 MG TABLET GT SCH (09:08)
[2020-01-17] MEDS: TRIAMCINOLONE ACET 0.1% CREAM 15 GM TUBE TP SCH ×2 (09:08→20:14)
[2020-01-17] MEDS: Z GUARD REMEDY PASTE 57 GM TUBE TOP SCH ×2 (09:08→20:14)
[2020-01-17] MEDS: METOPROLOL TARTRATE 50 MG TABLET GT SCH ×2 (09:08→20:14)
[2020-01-17] MEDS: ACIDOPHILUS/BULGARICUS CHEW TAB GT SCH ×2 (09:08→20:14)
[2020-01-17] MEDS: NEOMY/BACITRA/POLYMYXIN B OINT UD PACKET TP SCH ×2 (09:08→20:15)
[2020-01-17] MEDS: BACLOFEN 20 MG TABLET GT SCH ×4 (09:08→20:14)
[2020-01-17] MEDS: SIMETHICONE 80 MG TAB.CHEW GT SCH ×3 (09:08→17:02)
[2020-01-17] MEDS: GLUCERNA 1.2 1000ML LIQUID GT PRN (17:40)
[2020-01-17 20:07] VITALS: BP 137/90
[2020-01-17] MEDS: ASCORBIC ACID 500 MG TABLET GT SCH (20:14)
[2020-01-18] MEDS: OMEPRAZOLE 20 MG CAPSULE.DR GT SCH (05:30)
[2020-01-18 08:10] VITALS: BP 142/83
[2020-01-18] MEDS: ACIDOPHILUS/BULGARICUS CHEW TAB GT SCH ×2 (08:27→20:13)
[2020-01-18] MEDS: BACLOFEN 20 MG TABLET GT SCH ×4 (08:27→20:13)
[2020-01-18] MEDS: SIMETHICONE 80 MG TAB.CHEW GT SCH ×3 (08:29→17:24)
[2020-01-18] MEDS: METOPROLOL TARTRATE 50 MG TABLET GT SCH ×2 (08:29→20:14)
[2020-01-18] MEDS: TRIAMCINOLONE ACET 0.1% CREAM 15 GM TUBE TP SCH ×2 (08:30→20:14)
[2020-01-18] MEDS: Z GUARD REMEDY PASTE 57 GM TUBE TOP SCH ×2 (08:30→20:14)
[2020-01-18] MEDS: SERTRALINE HCL 50 MG TABLET GT SCH (08:30)
[2020-01-18] MEDS: NEOMY/BACITRA/POLYMYXIN B OINT UD PACKET TP SCH ×2 (08:30→20:14)
[2020-01-18] MEDS: HYDROGEN PEROXIDE 3% 118 ML BOTTLE TP SCH ×2 (09:00→21:18)
[2020-01-18] MEDS: GLUCERNA 1.2 1000ML LIQUID GT PRN (17:25)
[2020-01-18 20:10] VITALS: BP 122/83
[2020-01-18] MEDS: ASCORBIC ACID 500 MG TABLET GT SCH (20:14)
[2020-01-19] MEDS: MULTIVIT, IRON, MIN NO. 8, FA TABLET GT SCH (05:34)
[2020-01-19] MEDS: OMEPRAZOLE 20 MG CAPSULE.DR GT SCH (05:34)
[2020-01-19 07:40] VITALS: BP 113/78
[2020-01-19] MEDS: HYDROGEN PEROXIDE 3% 118 ML BOTTLE TP SCH ×2 (07:46→21:10)
[2020-01-19] MEDS: ACIDOPHILUS/BULGARICUS CHEW TAB GT SCH ×2 (08:38→21:05)
[2020-01-19] MEDS: BACLOFEN 20 MG TABLET GT SCH ×4 (08:38→21:05)
[2020-01-19] MEDS: METOPROLOL TARTRATE 50 MG TABLET GT SCH ×2 (08:39→21:05)
[2020-01-19] MEDS: SIMETHICONE 80 MG TAB.CHEW GT SCH ×3 (08:39→16:41)
[2020-01-19] MEDS: SERTRALINE HCL 50 MG TABLET GT SCH (08:40)
[2020-01-19] MEDS: Z GUARD REMEDY PASTE 57 GM TUBE TOP SCH ×2 (08:40→21:06)
[2020-01-19] MEDS: TRIAMCINOLONE ACET 0.1% CREAM 15 GM TUBE TP SCH ×2 (09:04→21:06)
[2020-01-19] MEDS: NEOMY/BACITRA/POLYMYXIN B OINT UD PACKET TP SCH ×2 (09:05→21:06)
[2020-01-19] MEDS: KETOCONAZOLE 2% SHAMPOO 120 ML BOTTLE TP SCH (09:05)
[2020-01-19] MEDS: GLUCERNA 1.2 1000ML LIQUID GT PRN (17:30)
[2020-01-19 20:07] VITALS: BP 121/78
[2020-01-19] MEDS: ASCORBIC ACID 500 MG TABLET GT SCH (21:06)
[2020-01-20 05:34] LABS: BASOPHILS # (AUTO) 0.1 K/uL (0.0-8.0); EOSINOPHILS # (AUTO) 0.2 K/uL (0.0-0.7); EOSINOPHILS % (AUTO) 3.4 % (0.0-7.0); HEMATOCRIT 30.8 % (31.2-41.9); HEMOGLOBIN 9.6 g/dL (10.9-14.3); LYMPHOCYTES # (AUTO) 2.6 K/uL (20.0-40.0); LYMPHOCYTES % (AUTO) 37.6 % (20.5-51.5); MEAN CORPUSCULAR HEMOGLOBIN 21.1 uug (24.7-32.8); MEAN CORPUSCULAR HGB CONC 31 g/dL (32.3-35.6); MEAN CORPUSCULAR VOLUME 67.7 fL (75.5-95.3); MONOCYTES # (AUTO) 0.9 K/uL (2.0-10.0); MONOCYTES % (AUTO) 12.8 % (0.0-11.0); NEUTROPHILS # (AUTO) 3.1 K/uL (1.8-8.9); NEUTROPHILS % (AUTO) 45.2 % (38.5-71.5); PLATELET COUNT (AUTO) 340 K/uL (179-408); RED BLOOD CELL COUNT(AUTO) 4.55 MIL/uL (3.63-4.92); WHITE BLOOD COUNT (AUTO) 6.9 K/uL (3.8-11.8)
[2020-01-20] MEDS: OMEPRAZOLE 20 MG CAPSULE.DR GT SCH (05:52)
[2020-01-20 06:30] LABS: EOSINOPHILS % (MANUAL) 4 % (0-8); LYMPHOCYTES % (MANUAL) 35 % (20-40); MONOCYTES % (MANUAL) 11 % (2-10); NEUTROPHILS % (MANUAL) 50 % (42-75)
[2020-01-20 07:43] VITALS: BP 118/79
[2020-01-20] MEDS: BACLOFEN 20 MG TABLET GT SCH ×4 (09:08→20:16)
[2020-01-20] MEDS: ACIDOPHILUS/BULGARICUS CHEW TAB GT SCH ×2 (09:08→20:16)
[2020-01-20] MEDS: METOPROLOL TARTRATE 50 MG TABLET GT SCH ×2 (09:09→20:17)
[2020-01-20] MEDS: SERTRALINE HCL 50 MG TABLET GT SCH (09:09)
[2020-01-20] MEDS: Z GUARD REMEDY PASTE 57 GM TUBE TOP SCH ×2 (09:09→20:17)
[2020-01-20] MEDS: TRIAMCINOLONE ACET 0.1% CREAM 15 GM TUBE TP SCH ×2 (09:09→20:17)
[2020-01-20] MEDS: SIMETHICONE 80 MG TAB.CHEW GT SCH ×3 (09:09→17:19)
[2020-01-20] MEDS: NEOMY/BACITRA/POLYMYXIN B OINT UD PACKET TP SCH ×2 (09:09→20:17)
[2020-01-20] MEDS: HYDROGEN PEROXIDE 3% 118 ML BOTTLE TP SCH ×2 (09:35→21:35)
[2020-01-20 20:03] VITALS: BP 125/83
[2020-01-20] MEDS: ASCORBIC ACID 500 MG TABLET GT SCH (20:17)
[2020-01-21] MEDS: OMEPRAZOLE 20 MG CAPSULE.DR GT SCH (06:46)
[2020-01-21] MEDS: MULTIVIT, IRON, MIN NO. 8, FA TABLET GT SCH (06:46)
[2020-01-21 08:08] VITALS: BP 118/78
[2020-01-21] MEDS: ACIDOPHILUS/BULGARICUS CHEW TAB GT SCH ×2 (08:56→20:53)
[2020-01-21] MEDS: BACLOFEN 20 MG TABLET GT SCH ×4 (08:57→20:53)
[2020-01-21] MEDS: SIMETHICONE 80 MG TAB.CHEW GT SCH ×3 (08:57→16:12)
[2020-01-21] MEDS: SERTRALINE HCL 50 MG TABLET GT SCH (08:58)
[2020-01-21] MEDS: METOPROLOL TARTRATE 50 MG TABLET GT SCH ×2 (08:58→20:53)
[2020-01-21] MEDS: TRIAMCINOLONE ACET 0.1% CREAM 15 GM TUBE TP SCH ×2 (08:58→20:53)
[2020-01-21] MEDS: Z GUARD REMEDY PASTE 57 GM TUBE TOP SCH ×2 (08:58→20:53)
[2020-01-21] MEDS: NEOMY/BACITRA/POLYMYXIN B OINT UD PACKET TP SCH ×2 (08:58→20:53)
[2020-01-21] MEDS: HYDROGEN PEROXIDE 3% 118 ML BOTTLE TP SCH ×2 (09:00→21:00)
[2020-01-21 20:11] VITALS: BP 99/72
[2020-01-21] MEDS: ASCORBIC ACID 500 MG TABLET GT SCH (20:53)
[2020-01-22] MEDS: OMEPRAZOLE 20 MG CAPSULE.DR GT SCH (06:37)
[2020-01-22 07:57] VITALS: BP 106/61
[2020-01-22] MEDS: HYDROGEN PEROXIDE 3% 118 ML BOTTLE TP SCH ×2 (09:00→21:09)
--- NOTE | 2020-01-22 09:00 | NUR ---
SEEN BY DR. IBRAHIM AND WITH NNO.
[2020-01-22] MEDS: ACIDOPHILUS/BULGARICUS CHEW TAB GT SCH ×2 (09:09→21:48)
[2020-01-22] MEDS: BACLOFEN 20 MG TABLET GT SCH ×4 (09:09→21:48)
[2020-01-22] MEDS: METOPROLOL TARTRATE 50 MG TABLET GT SCH ×2 (09:11→21:48)
[2020-01-22] MEDS: SERTRALINE HCL 50 MG TABLET GT SCH (09:11)
[2020-01-22] MEDS: Z GUARD REMEDY PASTE 57 GM TUBE TOP SCH ×2 (09:12→21:48)
[2020-01-22] MEDS: TRIAMCINOLONE ACET 0.1% CREAM 15 GM TUBE TP SCH ×2 (09:13→21:48)
[2020-01-22] MEDS: NEOMY/BACITRA/POLYMYXIN B OINT UD PACKET TP SCH ×2 (09:14→21:48)
[2020-01-22] MEDS: KETOCONAZOLE 2% SHAMPOO 120 ML BOTTLE TP SCH (09:14)
[2020-01-22] MEDS: SIMETHICONE 80 MG TAB.CHEW GT SCH ×3 (09:16→16:22)
[2020-01-22] MEDS: GLUCERNA 1.2 1000ML LIQUID GT PRN (14:14)
[2020-01-22 20:00] VITALS: BP 120/75
[2020-01-22] MEDS: ASCORBIC ACID 500 MG TABLET GT SCH (21:48)
[2020-01-23] MEDS: OMEPRAZOLE 20 MG CAPSULE.DR GT SCH (05:12)
[2020-01-23] MEDS: MULTIVIT, IRON, MIN NO. 8, FA TABLET GT SCH (05:35)
[2020-01-23 07:56] VITALS: BP 119/67
[2020-01-23] MEDS: ACIDOPHILUS/BULGARICUS CHEW TAB GT SCH ×2 (08:14→21:37)
[2020-01-23] MEDS: BACLOFEN 20 MG TABLET GT SCH ×4 (08:15→21:37)
[2020-01-23] MEDS: NEOMY/BACITRA/POLYMYXIN B OINT UD PACKET TP SCH ×2 (08:15→21:38)
[2020-01-23] MEDS: METOPROLOL TARTRATE 50 MG TABLET GT SCH ×2 (08:15→21:38)
[2020-01-23] MEDS: SERTRALINE HCL 50 MG TABLET GT SCH (08:15)
[2020-01-23] MEDS: SIMETHICONE 80 MG TAB.CHEW GT SCH ×3 (08:15→16:13)
[2020-01-23] MEDS: Z GUARD REMEDY PASTE 57 GM TUBE TOP SCH ×2 (08:15→21:38)
[2020-01-23] MEDS: TRIAMCINOLONE ACET 0.1% CREAM 15 GM TUBE TP SCH ×2 (08:15→21:38)
[2020-01-23] MEDS: HYDROGEN PEROXIDE 3% 118 ML BOTTLE TP SCH ×2 (09:00→21:50)
[2020-01-23] MEDS: GLUCERNA 1.2 1000ML LIQUID GT PRN (16:13)
[2020-01-23] MEDS: ASCORBIC ACID 500 MG TABLET GT SCH (21:38)
[2020-01-23 23:12] VITALS: BP 133/82
[2020-01-24] MEDS: OMEPRAZOLE 20 MG CAPSULE.DR GT SCH (05:34)
[2020-01-24 07:46] VITALS: BP 110/64
[2020-01-24] MEDS: ACIDOPHILUS/BULGARICUS CHEW TAB GT SCH ×2 (08:22→21:11)
[2020-01-24] MEDS: BACLOFEN 20 MG TABLET GT SCH ×4 (08:22→21:11)
[2020-01-24] MEDS: METOPROLOL TARTRATE 50 MG TABLET GT SCH ×2 (08:23→21:16)
[2020-01-24] MEDS: SIMETHICONE 80 MG TAB.CHEW GT SCH ×3 (08:23→16:02)
[2020-01-24] MEDS: SERTRALINE HCL 50 MG TABLET GT SCH (08:24)
[2020-01-24] MEDS: Z GUARD REMEDY PASTE 57 GM TUBE TOP SCH ×2 (08:24→21:17)
[2020-01-24] MEDS: HYDROGEN PEROXIDE 3% 118 ML BOTTLE TP SCH ×2 (09:09→21:20)
[2020-01-24] MEDS: GLUCERNA 1.2 1000ML LIQUID GT PRN (12:16)
[2020-01-24] MEDS: ASCORBIC ACID 500 MG TABLET GT SCH (21:17)
[2020-01-24 23:05] VITALS: BP 134/87
[2020-01-25] MEDS: GLUCERNA 1.2 1000ML LIQUID GT PRN (04:43)
[2020-01-25] MEDS: OMEPRAZOLE 20 MG CAPSULE.DR GT SCH (05:08)
[2020-01-25] MEDS: MULTIVIT, IRON, MIN NO. 8, FA TABLET GT SCH (05:41)
[2020-01-25 07:38] VITALS: BP 128/86
[2020-01-25] MEDS: SIMETHICONE 80 MG TAB.CHEW GT SCH ×3 (08:34→17:24)
[2020-01-25] MEDS: METOPROLOL TARTRATE 50 MG TABLET GT SCH ×2 (08:34→20:56)
[2020-01-25] MEDS: BACLOFEN 20 MG TABLET GT SCH ×4 (08:34→20:56)
[2020-01-25] MEDS: ACIDOPHILUS/BULGARICUS CHEW TAB GT SCH ×2 (08:34→20:56)
[2020-01-25] MEDS: SERTRALINE HCL 50 MG TABLET GT SCH (08:35)
[2020-01-25] MEDS: Z GUARD REMEDY PASTE 57 GM TUBE TOP SCH ×2 (08:35→20:56)
[2020-01-25] MEDS: HYDROGEN PEROXIDE 3% 118 ML BOTTLE TP SCH ×2 (08:52→21:34)
[2020-01-25] MEDS: ASCORBIC ACID 500 MG TABLET GT SCH (20:56)
--- NOTE | 2020-01-25 22:54 | NUR ---
Seen and examined by JANY Isaac with No new orders.
[2020-01-25 23:15] VITALS: BP 134/85
[2020-01-26] MEDS: OMEPRAZOLE 20 MG CAPSULE.DR GT SCH (05:31)
[2020-01-26 07:38] VITALS: BP 138/86
[2020-01-26] MEDS: HYDROGEN PEROXIDE 3% 118 ML BOTTLE TP SCH ×2 (08:26→21:26)
[2020-01-26] MEDS: BACLOFEN 20 MG TABLET GT SCH ×4 (08:45→20:45)
[2020-01-26] MEDS: ACIDOPHILUS/BULGARICUS CHEW TAB GT SCH ×2 (08:45→20:45)
[2020-01-26] MEDS: METOPROLOL TARTRATE 50 MG TABLET GT SCH ×2 (08:46→20:46)
[2020-01-26] MEDS: SIMETHICONE 80 MG TAB.CHEW GT SCH ×3 (08:46→16:17)
[2020-01-26] MEDS: Z GUARD REMEDY PASTE 57 GM TUBE TOP SCH ×2 (08:47→20:46)
[2020-01-26] MEDS: SERTRALINE HCL 50 MG TABLET GT SCH (08:47)
[2020-01-26] MEDS: KETOCONAZOLE 2% SHAMPOO 120 ML BOTTLE TP SCH (08:47)
[2020-01-26 20:26] VITALS: BP 118/75
[2020-01-26] MEDS: ASCORBIC ACID 500 MG TABLET GT SCH (20:46)
[2020-01-27] MEDS: MULTIVIT, IRON, MIN NO. 8, FA TABLET GT SCH (05:34)
[2020-01-27] MEDS: OMEPRAZOLE 20 MG CAPSULE.DR GT SCH (05:34)
[2020-01-27 06:28] LABS: BASOPHILS # (AUTO) 0.1 K/uL (0.0-8.0); EOSINOPHILS # (AUTO) 0.3 K/uL (0.0-0.7); EOSINOPHILS % (AUTO) 4.1 % (0.0-7.0); HEMATOCRIT 32.3 % (31.2-41.9); HEMOGLOBIN 9.9 g/dL (10.9-14.3); LYMPHOCYTES # (AUTO) 2.8 K/uL (20.0-40.0); LYMPHOCYTES % (AUTO) 42.8 % (20.5-51.5); MEAN CORPUSCULAR HEMOGLOBIN 20.7 uug (24.7-32.8); MEAN CORPUSCULAR HGB CONC 31 g/dL (32.3-35.6); MEAN CORPUSCULAR VOLUME 67.7 fL (75.5-95.3); MONOCYTES # (AUTO) 0.8 K/uL (2.0-10.0); MONOCYTES % (AUTO) 12.5 % (0.0-11.0); NEUTROPHILS # (AUTO) 2.6 K/uL (1.8-8.9); NEUTROPHILS % (AUTO) 39.6 % (38.5-71.5); PLATELET COUNT (AUTO) 354 K/uL (179-408); RED BLOOD CELL COUNT(AUTO) 4.77 MIL/uL (3.63-4.92); WHITE BLOOD COUNT (AUTO) 6.5 K/uL (3.8-11.8)
[2020-01-27] MEDS: GLUCERNA 1.2 1000ML LIQUID GT PRN (06:51)
[2020-01-27] MEDS: HYDROGEN PEROXIDE 3% 118 ML BOTTLE TP SCH ×2 (07:17→21:50)
[2020-01-27 07:25] VITALS: BP 124/77
[2020-01-27] MEDS: ACIDOPHILUS/BULGARICUS CHEW TAB GT SCH ×2 (08:22→21:10)
[2020-01-27] MEDS: BACLOFEN 20 MG TABLET GT SCH ×4 (08:23→21:10)
[2020-01-27] MEDS: SIMETHICONE 80 MG TAB.CHEW GT SCH ×3 (08:23→17:43)
[2020-01-27] MEDS: METOPROLOL TARTRATE 50 MG TABLET GT SCH ×2 (08:23→21:11)
[2020-01-27] MEDS: SERTRALINE HCL 50 MG TABLET GT SCH (08:24)
[2020-01-27] MEDS: Z GUARD REMEDY PASTE 57 GM TUBE TOP SCH ×2 (08:24→21:11)
[2020-01-27 20:00] VITALS: BP 132/69
[2020-01-27] MEDS: ASCORBIC ACID 500 MG TABLET GT SCH (21:11)
--- NOTE | 2020-01-27 21:50 | NUR ---
Received patient in stable respiratory condition on cool aerosol 28% FiO2. No SOB noted. Trach care done. Airway is patent and secured. Ambubag and spare trach at bedside. Will continue to monitor.
[2020-01-28] MEDS: GLUCERNA 1.2 1000ML LIQUID GT PRN (04:29)
[2020-01-28] MEDS: OMEPRAZOLE 20 MG CAPSULE.DR GT SCH (05:15)
[2020-01-28 07:49] VITALS: BP 129/67
[2020-01-28] MEDS: ACIDOPHILUS/BULGARICUS CHEW TAB GT SCH ×2 (08:00→20:46)
[2020-01-28] MEDS: METOPROLOL TARTRATE 50 MG TABLET GT SCH ×2 (08:00→20:49)
[2020-01-28] MEDS: BACLOFEN 20 MG TABLET GT SCH ×4 (08:00→20:46)
[2020-01-28] MEDS: SIMETHICONE 80 MG TAB.CHEW GT SCH ×3 (08:00→17:03)
[2020-01-28] MEDS: SERTRALINE HCL 50 MG TABLET GT SCH (08:01)
[2020-01-28] MEDS: Z GUARD REMEDY PASTE 57 GM TUBE TOP SCH ×2 (08:01→20:50)
[2020-01-28] MEDS: HYDROGEN PEROXIDE 3% 118 ML BOTTLE TP SCH ×2 (09:05→19:21)
[2020-01-28 20:37] VITALS: BP 127/84
[2020-01-28] MEDS: ASCORBIC ACID 500 MG TABLET GT SCH (20:50)
--- NOTE | 2020-01-28 22:56 | NUR ---
Patient noted with some streaks of blood in patient's stool, abdomen is soft to touch. Good earl care rendered, kept clean and comfortable.
[2020-01-29] MEDS: GLUCERNA 1.2 1000ML LIQUID GT PRN (02:00)
[2020-01-29] MEDS: OMEPRAZOLE 20 MG CAPSULE.DR GT SCH (06:08)
[2020-01-29] MEDS: MULTIVIT, IRON, MIN NO. 8, FA TABLET GT SCH (06:08)
[2020-01-29 07:38] VITALS: BP 126/68
[2020-01-29] MEDS: ACIDOPHILUS/BULGARICUS CHEW TAB GT SCH ×2 (08:21→21:00)
[2020-01-29] MEDS: SIMETHICONE 80 MG TAB.CHEW GT SCH ×3 (08:22→17:15)
[2020-01-29] MEDS: BACLOFEN 20 MG TABLET GT SCH ×4 (08:22→21:00)
[2020-01-29] MEDS: METOPROLOL TARTRATE 50 MG TABLET GT SCH ×2 (08:22→21:00)
[2020-01-29] MEDS: SERTRALINE HCL 50 MG TABLET GT SCH (08:23)
[2020-01-29] MEDS: KETOCONAZOLE 2% SHAMPOO 120 ML BOTTLE TP SCH (08:23)
[2020-01-29] MEDS: Z GUARD REMEDY PASTE 57 GM TUBE TOP SCH ×2 (08:23→21:00)
[2020-01-29] MEDS: HYDROGEN PEROXIDE 3% 118 ML BOTTLE TP SCH ×2 (09:47→21:08)
[2020-01-29 20:16] VITALS: BP 110/61
[2020-01-29] MEDS: ASCORBIC ACID 500 MG TABLET GT SCH (21:00)
[2020-01-30] MEDS: GLUCERNA 1.2 1000ML LIQUID GT PRN (02:00)
[2020-01-30] MEDS: OMEPRAZOLE 20 MG CAPSULE.DR GT SCH (05:42)
[2020-01-30 07:38] VITALS: BP 111/72
[2020-01-30] MEDS: BACLOFEN 20 MG TABLET GT SCH ×4 (08:44→21:42)
[2020-01-30] MEDS: ACIDOPHILUS/BULGARICUS CHEW TAB GT SCH ×2 (08:44→21:42)
[2020-01-30] MEDS: Z GUARD REMEDY PASTE 57 GM TUBE TOP SCH ×2 (08:45→21:43)
[2020-01-30] MEDS: SIMETHICONE 80 MG TAB.CHEW GT SCH ×3 (08:45→17:08)
[2020-01-30] MEDS: METOPROLOL TARTRATE 50 MG TABLET GT SCH ×2 (08:45→21:42)
[2020-01-30] MEDS: SERTRALINE HCL 50 MG TABLET GT SCH (08:45)
[2020-01-30] MEDS: HYDROGEN PEROXIDE 3% 118 ML BOTTLE TP SCH ×2 (09:03→21:25)
[2020-01-30 20:13] VITALS: BP 137/86
[2020-01-30] MEDS: ASCORBIC ACID 500 MG TABLET GT SCH (21:42)
[2020-01-31] MEDS: GLUCERNA 1.2 1000ML LIQUID GT PRN (01:55)
[2020-01-31] MEDS: OMEPRAZOLE 20 MG CAPSULE.DR GT SCH (05:41)
[2020-01-31] MEDS: MULTIVIT, IRON, MIN NO. 8, FA TABLET GT SCH (05:41)
[2020-01-31 08:08] VITALS: BP 112/59
[2020-01-31] MEDS: BACLOFEN 20 MG TABLET GT SCH ×4 (09:14→20:54)
[2020-01-31] MEDS: ACIDOPHILUS/BULGARICUS CHEW TAB GT SCH ×2 (09:14→20:54)
[2020-01-31] MEDS: METOPROLOL TARTRATE 50 MG TABLET GT SCH ×2 (09:15→20:54)
[2020-01-31] MEDS: Z GUARD REMEDY PASTE 57 GM TUBE TOP SCH ×2 (09:15→20:54)
[2020-01-31] MEDS: SIMETHICONE 80 MG TAB.CHEW GT SCH ×3 (09:15→17:17)
[2020-01-31] MEDS: SERTRALINE HCL 50 MG TABLET GT SCH (09:15)
[2020-01-31] MEDS: HYDROGEN PEROXIDE 3% 118 ML BOTTLE TP SCH ×2 (09:35→20:55)
[2020-01-31 20:20] VITALS: BP 137/82
[2020-01-31] MEDS: ASCORBIC ACID 500 MG TABLET GT SCH (20:54)
[2020-02-01] MEDS: OMEPRAZOLE 20 MG CAPSULE.DR GT SCH (05:04)
[2020-02-01] MEDS: HYDROGEN PEROXIDE 3% 118 ML BOTTLE TP SCH ×2 (07:40→20:15)
[2020-02-01 07:42] VITALS: BP 133/89
[2020-02-01] MEDS: ACIDOPHILUS/BULGARICUS CHEW TAB GT SCH ×2 (08:23→20:15)
[2020-02-01] MEDS: BACLOFEN 20 MG TABLET GT SCH ×4 (08:23→20:15)
[2020-02-01] MEDS: METOPROLOL TARTRATE 50 MG TABLET GT SCH ×2 (08:23→20:15)
[2020-02-01] MEDS: SIMETHICONE 80 MG TAB.CHEW GT SCH ×3 (08:24→18:00)
[2020-02-01] MEDS: SERTRALINE HCL 50 MG TABLET GT SCH (08:24)
[2020-02-01] MEDS: Z GUARD REMEDY PASTE 57 GM TUBE TOP SCH ×2 (08:24→20:15)
[2020-02-01 20:13] VITALS: BP 132/80
[2020-02-01] MEDS: ASCORBIC ACID 500 MG TABLET GT SCH (20:15)
[2020-02-01] MEDS: GLUCERNA 1.2 1000ML LIQUID GT PRN (23:39)
[2020-02-02] MEDS: OMEPRAZOLE 20 MG CAPSULE.DR GT SCH (05:06)
[2020-02-02] MEDS: MULTIVIT, IRON, MIN NO. 8, FA TABLET GT SCH (05:35)
[2020-02-02 07:53] VITALS: BP 118/83
[2020-02-02] MEDS: HYDROGEN PEROXIDE 3% 118 ML BOTTLE TP SCH ×2 (07:55→21:24)
[2020-02-02] MEDS: Z GUARD REMEDY PASTE 57 GM TUBE TOP SCH ×2 (08:46→21:31)
[2020-02-02] MEDS: KETOCONAZOLE 2% SHAMPOO 120 ML BOTTLE TP SCH (08:46)
[2020-02-02] MEDS: SIMETHICONE 80 MG TAB.CHEW GT SCH ×3 (08:46→16:39)
[2020-02-02] MEDS: BACLOFEN 20 MG TABLET GT SCH ×4 (08:46→21:27)
[2020-02-02] MEDS: METOPROLOL TARTRATE 50 MG TABLET GT SCH ×2 (08:46→21:31)
[2020-02-02] MEDS: SERTRALINE HCL 50 MG TABLET GT SCH (08:46)
[2020-02-02] MEDS: ACIDOPHILUS/BULGARICUS CHEW TAB GT SCH ×2 (08:46→21:27)
[2020-02-02 20:05] VITALS: BP 141/80
[2020-02-02] MEDS: ASCORBIC ACID 500 MG TABLET GT SCH (21:31)
[2020-02-03] MEDS: OMEPRAZOLE 20 MG CAPSULE.DR GT SCH (05:22)
[2020-02-03 06:56] LABS: BASOPHILS # (AUTO) 0.1 K/uL (0.0-8.0); BASOPHILS % (AUTO) 0.9 % (0.0-2.0); EOSINOPHILS # (AUTO) 0.3 K/uL (0.0-0.7); EOSINOPHILS % (AUTO) 4.4 % (0.0-7.0); HEMOGLOBIN 9.9 g/dL (10.9-14.3); LYMPHOCYTES # (AUTO) 3.3 K/uL (20.0-40.0); LYMPHOCYTES % (AUTO) 43.6 % (20.5-51.5); MEAN CORPUSCULAR HEMOGLOBIN 20.9 uug (24.7-32.8); MEAN CORPUSCULAR HGB CONC 31 g/dL (32.3-35.6); MEAN CORPUSCULAR VOLUME 67.2 fL (75.5-95.3); MONOCYTES # (AUTO) 0.9 K/uL (2.0-10.0); MONOCYTES % (AUTO) 11.7 % (0.0-11.0); NEUTROPHILS % (AUTO) 39.4 % (38.5-71.5); PLATELET COUNT (AUTO) 357 K/uL (179-408); RED BLOOD CELL COUNT(AUTO) 4.76 MIL/uL (3.63-4.92); WHITE BLOOD COUNT (AUTO) 7.7 K/uL (3.8-11.8)
[2020-02-03 07:31] VITALS: BP 131/79
[2020-02-03] MEDS: BACLOFEN 20 MG TABLET GT SCH ×4 (08:30→21:21)
[2020-02-03] MEDS: ACIDOPHILUS/BULGARICUS CHEW TAB GT SCH ×2 (08:30→21:21)
[2020-02-03] MEDS: METOPROLOL TARTRATE 50 MG TABLET GT SCH ×2 (08:31→21:21)
[2020-02-03] MEDS: Z GUARD REMEDY PASTE 57 GM TUBE TOP SCH ×2 (08:31→21:22)
[2020-02-03] MEDS: SERTRALINE HCL 50 MG TABLET GT SCH (08:31)
[2020-02-03] MEDS: SIMETHICONE 80 MG TAB.CHEW GT SCH ×3 (08:31→17:07)
[2020-02-03] MEDS: HYDROGEN PEROXIDE 3% 118 ML BOTTLE TP SCH ×2 (08:39→21:54)
[2020-02-03 12:46] LABS: NEUTROPHILS % (MANUAL) 39 % (42-75)
[2020-02-03 12:47] LABS: EOSINOPHILS % (MANUAL) 4 % (0-8); LYMPHOCYTES % (MANUAL) 48 % (20-40); MONOCYTES % (MANUAL) 9 % (2-10)
[2020-02-03 20:39] VITALS: BP 144/86
[2020-02-03] MEDS: ASCORBIC ACID 500 MG TABLET GT SCH (21:22)
[2020-02-04] MEDS: MULTIVIT, IRON, MIN NO. 8, FA TABLET GT SCH (06:12)
[2020-02-04] MEDS: OMEPRAZOLE 20 MG CAPSULE.DR GT SCH (06:12)
[2020-02-04 07:50] VITALS: BP 120/67
[2020-02-04] MEDS: BACLOFEN 20 MG TABLET GT SCH ×4 (08:41→20:20)
[2020-02-04] MEDS: ACIDOPHILUS/BULGARICUS CHEW TAB GT SCH ×2 (08:41→20:20)
[2020-02-04] MEDS: SIMETHICONE 80 MG TAB.CHEW GT SCH ×3 (08:42→16:49)
[2020-02-04] MEDS: METOPROLOL TARTRATE 50 MG TABLET GT SCH ×2 (08:42→20:21)
[2020-02-04] MEDS: SERTRALINE HCL 50 MG TABLET GT SCH (08:42)
[2020-02-04] MEDS: Z GUARD REMEDY PASTE 57 GM TUBE TOP SCH ×2 (08:43→20:21)
[2020-02-04] MEDS: HYDROGEN PEROXIDE 3% 118 ML BOTTLE TP SCH ×2 (09:16→21:06)
[2020-02-04] MEDS: GLUCERNA 1.2 1000ML LIQUID GT PRN (11:28)
[2020-02-04 20:00] VITALS: BP 115/77
[2020-02-04] MEDS: ASCORBIC ACID 500 MG TABLET GT SCH (20:21)
[2020-02-05] MEDS: OMEPRAZOLE 20 MG CAPSULE.DR GT SCH (05:39)
[2020-02-05 07:42] VITALS: BP 119/63
[2020-02-05] MEDS: BACLOFEN 20 MG TABLET GT SCH ×4 (09:41→21:32)
[2020-02-05] MEDS: SERTRALINE HCL 50 MG TABLET GT SCH (09:41)
[2020-02-05] MEDS: KETOCONAZOLE 2% SHAMPOO 120 ML BOTTLE TP SCH (09:41)
[2020-02-05] MEDS: SIMETHICONE 80 MG TAB.CHEW GT SCH ×3 (09:41→17:00)
[2020-02-05] MEDS: METOPROLOL TARTRATE 50 MG TABLET GT SCH ×2 (09:41→21:33)
[2020-02-05] MEDS: Z GUARD REMEDY PASTE 57 GM TUBE TOP SCH ×2 (09:41→21:33)
[2020-02-05] MEDS: ACIDOPHILUS/BULGARICUS CHEW TAB GT SCH ×2 (09:41→21:32)
[2020-02-05] MEDS: HYDROGEN PEROXIDE 3% 118 ML BOTTLE TP SCH ×2 (10:10→21:50)
[2020-02-05 20:00] VITALS: BP 133/86
[2020-02-05] MEDS: ASCORBIC ACID 500 MG TABLET GT SCH (21:33)
[2020-02-06] MEDS: OMEPRAZOLE 20 MG CAPSULE.DR GT SCH (05:12)
[2020-02-06] MEDS: MULTIVIT, IRON, MIN NO. 8, FA TABLET GT SCH (05:32)
[2020-02-06] MEDS: HYDROGEN PEROXIDE 3% 118 ML BOTTLE TP SCH ×2 (07:28→21:09)
[2020-02-06 07:52] VITALS: BP 113/73
[2020-02-06] MEDS: ACIDOPHILUS/BULGARICUS CHEW TAB GT SCH ×2 (08:21→21:38)
[2020-02-06] MEDS: BACLOFEN 20 MG TABLET GT SCH ×4 (08:21→21:38)
[2020-02-06] MEDS: METOPROLOL TARTRATE 50 MG TABLET GT SCH ×2 (08:22→21:38)
[2020-02-06] MEDS: SIMETHICONE 80 MG TAB.CHEW GT SCH ×3 (08:22→16:29)
[2020-02-06] MEDS: GLUCERNA 1.2 1000ML LIQUID GT PRN (08:23)
[2020-02-06] MEDS: SERTRALINE HCL 50 MG TABLET GT SCH (08:23)
[2020-02-06] MEDS: Z GUARD REMEDY PASTE 57 GM TUBE TOP SCH ×2 (08:23→21:38)
--- NOTE | 2020-02-06 17:00 | NUR ---
SEEN BY DR. IBRAHIM AND WITH NNO.
[2020-02-06 20:05] VITALS: BP 127/58
[2020-02-06] MEDS: ASCORBIC ACID 500 MG TABLET GT SCH (21:38)
[2020-02-07] MEDS: GLUCERNA 1.2 1000ML LIQUID GT PRN (03:24)
[2020-02-07] MEDS: OMEPRAZOLE 20 MG CAPSULE.DR GT SCH (05:20)
[2020-02-07] MEDS: HYDROGEN PEROXIDE 3% 118 ML BOTTLE TP SCH ×2 (07:37→21:12)
[2020-02-07 08:01] VITALS: BP 110/73
[2020-02-07] MEDS: ACIDOPHILUS/BULGARICUS CHEW TAB GT SCH ×2 (08:55→21:24)
[2020-02-07] MEDS: BACLOFEN 20 MG TABLET GT SCH ×4 (08:55→21:24)
[2020-02-07] MEDS: SERTRALINE HCL 50 MG TABLET GT SCH (08:56)
[2020-02-07] MEDS: SIMETHICONE 80 MG TAB.CHEW GT SCH ×3 (08:56→17:38)
[2020-02-07] MEDS: METOPROLOL TARTRATE 50 MG TABLET GT SCH ×2 (08:56→21:28)
[2020-02-07] MEDS: Z GUARD REMEDY PASTE 57 GM TUBE TOP SCH ×2 (09:00→21:28)
[2020-02-07 20:18] VITALS: BP 127/78
[2020-02-07] MEDS: ASCORBIC ACID 500 MG TABLET GT SCH (21:28)
[2020-02-08] MEDS: GLUCERNA 1.2 1000ML LIQUID GT PRN (04:23)
[2020-02-08] MEDS: OMEPRAZOLE 20 MG CAPSULE.DR GT SCH (05:23)
[2020-02-08] MEDS: MULTIVIT, IRON, MIN NO. 8, FA TABLET GT SCH (05:32)
[2020-02-08 07:47] VITALS: BP 127/86
[2020-02-08] MEDS: Z GUARD REMEDY PASTE 57 GM TUBE TOP SCH ×2 (09:00→21:59)
[2020-02-08] MEDS: SIMETHICONE 80 MG TAB.CHEW GT SCH ×3 (09:00→16:35)
[2020-02-08] MEDS: ACIDOPHILUS/BULGARICUS CHEW TAB GT SCH ×2 (09:00→21:59)
[2020-02-08] MEDS: METOPROLOL TARTRATE 50 MG TABLET GT SCH ×2 (09:00→21:59)
[2020-02-08] MEDS: SERTRALINE HCL 50 MG TABLET GT SCH (09:00)
[2020-02-08] MEDS: HYDROGEN PEROXIDE 3% 118 ML BOTTLE TP SCH ×2 (09:00→20:36)
[2020-02-08] MEDS: BACLOFEN 20 MG TABLET GT SCH ×4 (09:00→21:59)
[2020-02-08 20:07] VITALS: BP 130/85
[2020-02-08] MEDS: ASCORBIC ACID 500 MG TABLET GT SCH (21:59)
[2020-02-09] MEDS: OMEPRAZOLE 20 MG CAPSULE.DR GT SCH (05:45)
[2020-02-09] MEDS: GLUCERNA 1.2 1000ML LIQUID GT PRN (07:16)
[2020-02-09 07:28] VITALS: BP 114/78
[2020-02-09] MEDS: HYDROGEN PEROXIDE 3% 118 ML BOTTLE TP SCH ×2 (08:23→21:13)
[2020-02-09] MEDS: BACLOFEN 20 MG TABLET GT SCH ×4 (08:28→21:00)
[2020-02-09] MEDS: ACIDOPHILUS/BULGARICUS CHEW TAB GT SCH ×2 (08:28→21:00)
[2020-02-09] MEDS: SIMETHICONE 80 MG TAB.CHEW GT SCH ×3 (08:29→17:31)
[2020-02-09] MEDS: METOPROLOL TARTRATE 50 MG TABLET GT SCH ×2 (08:29→21:00)
[2020-02-09] MEDS: KETOCONAZOLE 2% SHAMPOO 120 ML BOTTLE TP SCH (08:30)
[2020-02-09] MEDS: Z GUARD REMEDY PASTE 57 GM TUBE TOP SCH ×2 (08:30→21:00)
[2020-02-09] MEDS: SERTRALINE HCL 50 MG TABLET GT SCH (08:30)
[2020-02-09 20:04] VITALS: BP 121/71
[2020-02-09] MEDS: ASCORBIC ACID 500 MG TABLET GT SCH (21:00)
[2020-02-10] MEDS: OMEPRAZOLE 20 MG CAPSULE.DR GT SCH (05:40)
[2020-02-10] MEDS: MULTIVIT, IRON, MIN NO. 8, FA TABLET GT SCH (05:40)
[2020-02-10] MEDS: GLUCERNA 1.2 1000ML LIQUID GT PRN (06:30)
[2020-02-10 07:28] VITALS: BP 119/80
[2020-02-10] MEDS: HYDROGEN PEROXIDE 3% 118 ML BOTTLE TP SCH ×2 (09:02→21:00)
[2020-02-10] MEDS: METOPROLOL TARTRATE 50 MG TABLET GT SCH ×2 (09:48→20:55)
[2020-02-10] MEDS: ACIDOPHILUS/BULGARICUS CHEW TAB GT SCH ×2 (09:48→20:54)
[2020-02-10] MEDS: SIMETHICONE 80 MG TAB.CHEW GT SCH ×3 (09:48→17:44)
[2020-02-10] MEDS: Z GUARD REMEDY PASTE 57 GM TUBE TOP SCH ×2 (09:48→20:55)
[2020-02-10] MEDS: SERTRALINE HCL 50 MG TABLET GT SCH (09:48)
[2020-02-10] MEDS: BACLOFEN 20 MG TABLET GT SCH ×4 (09:48→20:54)
--- NOTE | 2020-02-10 16:28 | NUR ---
INTERDISCIPLINARY PLAN OF CARE CONFERENCE was held today. Patient's family was not available to participate in the meeting. Dr. Heaton and the Interdisciplinary Team reviewed the current plan of care in detail. RN reported on patient's medical condition and findings of recent labs. See RN IDT conference notes. No major changes in medical condition were reported by nursing or by other disciplines. See all other disciplines IDT notes and physician's progress notes for additional details.
--- NOTE | 2020-02-10 16:34 | NUR ---
NEW ORDER CARRIED OUT FROM DR. IBRAHIM FOR COVID 19 TEST AND PT'S BROTHER AWARE AND IN AGREEMENT.
[2020-02-10 20:29] VITALS: BP 125/69
[2020-02-10] MEDS: ASCORBIC ACID 500 MG TABLET GT SCH (20:55)
[2020-02-11] MEDS: GLUCERNA 1.2 1000ML LIQUID GT PRN (04:30)
[2020-02-11] MEDS: OMEPRAZOLE 20 MG CAPSULE.DR GT SCH (05:31)
[2020-02-11 07:36] VITALS: BP 117/69
[2020-02-11] MEDS: HYDROGEN PEROXIDE 3% 118 ML BOTTLE TP SCH ×2 (08:27→20:49)
[2020-02-11] MEDS: SIMETHICONE 80 MG TAB.CHEW GT SCH ×3 (09:06→17:00)
[2020-02-11] MEDS: Z GUARD REMEDY PASTE 57 GM TUBE TOP SCH ×2 (09:06→21:25)
[2020-02-11] MEDS: METOPROLOL TARTRATE 50 MG TABLET GT SCH ×2 (09:06→21:26)
[2020-02-11] MEDS: ACIDOPHILUS/BULGARICUS CHEW TAB GT SCH ×2 (09:06→21:26)
[2020-02-11] MEDS: SERTRALINE HCL 50 MG TABLET GT SCH (09:06)
[2020-02-11] MEDS: BACLOFEN 20 MG TABLET GT SCH ×4 (09:06→21:26)
[2020-02-11 20:38] VITALS: BP 139/70
[2020-02-11] MEDS: ASCORBIC ACID 500 MG TABLET GT SCH (21:26)
[2020-02-12] MEDS: GLUCERNA 1.2 1000ML LIQUID GT PRN (02:12)
[2020-02-12] MEDS: OMEPRAZOLE 20 MG CAPSULE.DR GT SCH (05:28)
[2020-02-12] MEDS: MULTIVIT, IRON, MIN NO. 8, FA TABLET GT SCH (05:30)
[2020-02-12 07:31] VITALS: BP 131/88
[2020-02-12] MEDS: ACIDOPHILUS/BULGARICUS CHEW TAB GT SCH ×2 (08:38→21:46)
[2020-02-12] MEDS: Z GUARD REMEDY PASTE 57 GM TUBE TOP SCH ×2 (08:39→21:47)
[2020-02-12] MEDS: SERTRALINE HCL 50 MG TABLET GT SCH (08:39)
[2020-02-12] MEDS: METOPROLOL TARTRATE 50 MG TABLET GT SCH ×2 (08:39→21:47)
[2020-02-12] MEDS: BACLOFEN 20 MG TABLET GT SCH ×4 (08:39→21:46)
[2020-02-12] MEDS: SIMETHICONE 80 MG TAB.CHEW GT SCH ×3 (08:39→17:26)
[2020-02-12] MEDS: KETOCONAZOLE 2% SHAMPOO 120 ML BOTTLE TP SCH (08:39)
[2020-02-12] MEDS: HYDROGEN PEROXIDE 3% 118 ML BOTTLE TP SCH ×2 (09:28→21:04)
[2020-02-12 20:00] VITALS: BP 119/84
[2020-02-12] MEDS: ASCORBIC ACID 500 MG TABLET GT SCH (21:47)
[2020-02-13] MEDS: GLUCERNA 1.2 1000ML LIQUID GT PRN ×2 (05:00→22:45)
[2020-02-13] MEDS: OMEPRAZOLE 20 MG CAPSULE.DR GT SCH (05:45)
[2020-02-13 07:44] VITALS: BP 121/88
[2020-02-13] MEDS: HYDROGEN PEROXIDE 3% 118 ML BOTTLE TP SCH ×2 (08:57→21:50)
[2020-02-13] MEDS: ACIDOPHILUS/BULGARICUS CHEW TAB GT SCH ×2 (09:11→20:12)
[2020-02-13] MEDS: BACLOFEN 20 MG TABLET GT SCH ×4 (09:11→20:12)
[2020-02-13] MEDS: METOPROLOL TARTRATE 50 MG TABLET GT SCH ×2 (09:12→20:12)
[2020-02-13] MEDS: SIMETHICONE 80 MG TAB.CHEW GT SCH ×3 (09:12→17:59)
[2020-02-13] MEDS: SERTRALINE HCL 50 MG TABLET GT SCH (09:13)
[2020-02-13] MEDS: Z GUARD REMEDY PASTE 57 GM TUBE TOP SCH ×2 (09:13→20:12)
[2020-02-13 20:10] VITALS: BP 111/73
[2020-02-13] MEDS: ASCORBIC ACID 500 MG TABLET GT SCH (20:12)
--- NOTE | 2020-02-13 21:50 | NUR ---
Patient received in stable respiratory condition on cool aerosol 28% FiO2. Ambubag and spare trach at bedside. Airway is patent and secured. Suctioned PRN. No SOB noted. Will continue to monitor.
[2020-02-14] MEDS: MULTIVIT, IRON, MIN NO. 8, FA TABLET GT SCH (05:36)
[2020-02-14] MEDS: OMEPRAZOLE 20 MG CAPSULE.DR GT SCH (05:36)
[2020-02-14 07:58] VITALS: BP 120/67
[2020-02-14] MEDS: ACIDOPHILUS/BULGARICUS CHEW TAB GT SCH ×2 (08:31→20:17)
[2020-02-14] MEDS: BACLOFEN 20 MG TABLET GT SCH ×4 (08:31→20:17)
[2020-02-14] MEDS: METOPROLOL TARTRATE 50 MG TABLET GT SCH ×2 (08:32→20:18)
[2020-02-14] MEDS: SERTRALINE HCL 50 MG TABLET GT SCH (08:32)
[2020-02-14] MEDS: SIMETHICONE 80 MG TAB.CHEW GT SCH ×3 (08:32→17:43)
[2020-02-14] MEDS: Z GUARD REMEDY PASTE 57 GM TUBE TOP SCH ×2 (08:35→20:18)
[2020-02-14] MEDS: HYDROGEN PEROXIDE 3% 118 ML BOTTLE TP SCH ×2 (10:10→21:33)
[2020-02-14] MEDS: GLUCERNA 1.2 1000ML LIQUID GT PRN (17:44)
[2020-02-14] MEDS: ASCORBIC ACID 500 MG TABLET GT SCH (20:18)
[2020-02-14] MEDS: TRIAMCINOLONE ACET 0.1% OINT 15 GM TUBE TP SCH (20:18)
[2020-02-14 20:21] VITALS: BP 141/80
[2020-02-15] MEDS: OMEPRAZOLE 20 MG CAPSULE.DR GT SCH (05:17)
[2020-02-15 07:46] VITALS: BP 108/65
[2020-02-15] MEDS: ACIDOPHILUS/BULGARICUS CHEW TAB GT SCH ×2 (08:26→20:11)
[2020-02-15] MEDS: BACLOFEN 20 MG TABLET GT SCH ×4 (08:26→20:11)
[2020-02-15] MEDS: TRIAMCINOLONE ACET 0.1% OINT 15 GM TUBE TP SCH ×2 (08:32→20:11)
[2020-02-15] MEDS: Z GUARD REMEDY PASTE 57 GM TUBE TOP SCH ×2 (08:32→20:11)
[2020-02-15] MEDS: SERTRALINE HCL 50 MG TABLET GT SCH (08:32)
[2020-02-15] MEDS: SIMETHICONE 80 MG TAB.CHEW GT SCH ×3 (08:32→17:11)
[2020-02-15] MEDS: METOPROLOL TARTRATE 50 MG TABLET GT SCH ×2 (08:32→20:11)
[2020-02-15] MEDS: HYDROGEN PEROXIDE 3% 118 ML BOTTLE TP SCH ×2 (09:30→21:28)
[2020-02-15] MEDS: GLUCERNA 1.2 1000ML LIQUID GT PRN (17:12)
[2020-02-15] MEDS: ASCORBIC ACID 500 MG TABLET GT SCH (20:11)
[2020-02-15 20:13] VITALS: BP 110/67
[2020-02-16] MEDS: MULTIVIT, IRON, MIN NO. 8, FA TABLET GT SCH (05:38)
[2020-02-16] MEDS: OMEPRAZOLE 20 MG CAPSULE.DR GT SCH (05:38)
[2020-02-16 07:35] VITALS: BP 99/73
[2020-02-16] MEDS: ACIDOPHILUS/BULGARICUS CHEW TAB GT SCH ×2 (08:56→20:52)
[2020-02-16] MEDS: BACLOFEN 20 MG TABLET GT SCH ×4 (08:56→20:52)
[2020-02-16] MEDS: METOPROLOL TARTRATE 50 MG TABLET GT SCH ×2 (08:57→20:54)
[2020-02-16] MEDS: TRIAMCINOLONE ACET 0.1% OINT 15 GM TUBE TP SCH ×2 (08:57→20:55)
[2020-02-16] MEDS: SIMETHICONE 80 MG TAB.CHEW GT SCH ×3 (08:57→17:08)
[2020-02-16] MEDS: Z GUARD REMEDY PASTE 57 GM TUBE TOP SCH ×2 (08:57→20:54)
[2020-02-16] MEDS: KETOCONAZOLE 2% SHAMPOO 120 ML BOTTLE TP SCH (08:57)
[2020-02-16] MEDS: SERTRALINE HCL 50 MG TABLET GT SCH (08:57)
[2020-02-16] MEDS: HYDROGEN PEROXIDE 3% 118 ML BOTTLE TP SCH ×2 (09:00→20:54)
[2020-02-16 20:41] VITALS: BP 100/78
[2020-02-16] MEDS: ASCORBIC ACID 500 MG TABLET GT SCH (20:54)
[2020-02-17] MEDS: OMEPRAZOLE 20 MG CAPSULE.DR GT SCH (05:07)
[2020-02-17 07:26] VITALS: BP 133/82
[2020-02-17] MEDS: SERTRALINE HCL 50 MG TABLET GT SCH (08:45)
[2020-02-17] MEDS: ACIDOPHILUS/BULGARICUS CHEW TAB GT SCH ×2 (08:45→21:45)
[2020-02-17] MEDS: TRIAMCINOLONE ACET 0.1% OINT 15 GM TUBE TP SCH ×2 (08:45→21:48)
[2020-02-17] MEDS: Z GUARD REMEDY PASTE 57 GM TUBE TOP SCH ×2 (08:45→21:48)
[2020-02-17] MEDS: BACLOFEN 20 MG TABLET GT SCH ×4 (08:45→21:45)
[2020-02-17] MEDS: SIMETHICONE 80 MG TAB.CHEW GT SCH ×3 (08:45→17:24)
[2020-02-17] MEDS: METOPROLOL TARTRATE 50 MG TABLET GT SCH ×2 (08:45→21:46)
[2020-02-17] MEDS: HYDROGEN PEROXIDE 3% 118 ML BOTTLE TP SCH ×2 (09:07→19:16)
[2020-02-17 20:56] VITALS: BP 132/74
[2020-02-17] MEDS: ASCORBIC ACID 500 MG TABLET GT SCH (21:46)
[2020-02-18] MEDS: OMEPRAZOLE 20 MG CAPSULE.DR GT SCH (05:44)
[2020-02-18] MEDS: MULTIVIT, IRON, MIN NO. 8, FA TABLET GT SCH (05:44)
[2020-02-18 07:28] VITALS: BP 111/73
[2020-02-18] MEDS: ACIDOPHILUS/BULGARICUS CHEW TAB GT SCH ×2 (08:42→21:39)
[2020-02-18] MEDS: BACLOFEN 20 MG TABLET GT SCH ×4 (08:44→21:39)
[2020-02-18] MEDS: SIMETHICONE 80 MG TAB.CHEW GT SCH ×3 (08:45→16:39)
[2020-02-18] MEDS: Z GUARD REMEDY PASTE 57 GM TUBE TOP SCH ×2 (08:45→21:39)
[2020-02-18] MEDS: METOPROLOL TARTRATE 50 MG TABLET GT SCH ×2 (08:45→21:39)
[2020-02-18] MEDS: SERTRALINE HCL 50 MG TABLET GT SCH (08:45)
[2020-02-18] MEDS: HYDROGEN PEROXIDE 3% 118 ML BOTTLE TP SCH ×2 (09:00→21:34)
[2020-02-18] MEDS: TRIAMCINOLONE ACET 0.1% OINT 15 GM TUBE TP SCH ×2 (09:26→21:39)
[2020-02-18] MEDS: GLUCERNA 1.2 1000ML LIQUID GT PRN (11:06)
--- NOTE | 2020-02-18 18:43 | NUR ---
Per Frank zurita's brother " Is okay to give the flu shot to her sister "
[2020-02-18 20:05] VITALS: BP 126/78
[2020-02-18] MEDS: ASCORBIC ACID 500 MG TABLET GT SCH (21:39)
[2020-02-19] MEDS: GLUCERNA 1.2 1000ML LIQUID GT PRN (03:00)
[2020-02-19] MEDS: OMEPRAZOLE 20 MG CAPSULE.DR GT SCH (06:00)
[2020-02-19] MEDS: TRIAMCINOLONE ACET 0.1% OINT 15 GM TUBE TP SCH ×2 (09:17→21:00)
[2020-02-19] MEDS: SIMETHICONE 80 MG TAB.CHEW GT SCH ×3 (09:18→17:00)
[2020-02-19] MEDS: KETOCONAZOLE 2% SHAMPOO 120 ML BOTTLE TP SCH (09:18)
[2020-02-19] MEDS: Z GUARD REMEDY PASTE 57 GM TUBE TOP SCH ×2 (09:18→21:00)
[2020-02-19] MEDS: SERTRALINE HCL 50 MG TABLET GT SCH (09:18)
[2020-02-19] MEDS: HYDROGEN PEROXIDE 3% 118 ML BOTTLE TP SCH ×2 (09:18→21:00)
[2020-02-19] MEDS: ACIDOPHILUS/BULGARICUS CHEW TAB GT SCH ×2 (09:19→21:00)
[2020-02-19] MEDS: METOPROLOL TARTRATE 50 MG TABLET GT SCH ×2 (09:19→21:00)
[2020-02-19] MEDS: BACLOFEN 20 MG TABLET GT SCH ×4 (09:19→21:00)
[2020-02-19 11:47] VITALS: BP 130/80
--- NOTE | 2020-02-19 19:22 | NUR ---
NEW ORDER OBTAINED FROM GLENN NORAH P.APetar FOR FLU VACCINE.
[2020-02-19 20:00] VITALS: BP 137/92
[2020-02-19] MEDS: ASCORBIC ACID 500 MG TABLET GT SCH (21:00)
[2020-02-20] MEDS: GLUCERNA 1.2 1000ML LIQUID GT PRN (02:55)
[2020-02-20] MEDS: OMEPRAZOLE 20 MG CAPSULE.DR GT SCH (05:05)
[2020-02-20] MEDS: MULTIVIT, IRON, MIN NO. 8, FA TABLET GT SCH (06:38)
[2020-02-20 08:13] VITALS: BP 122/83
[2020-02-20] MEDS: ACIDOPHILUS/BULGARICUS CHEW TAB GT SCH ×2 (08:27→21:14)
[2020-02-20] MEDS: BACLOFEN 20 MG TABLET GT SCH ×4 (08:27→21:14)
[2020-02-20] MEDS: SIMETHICONE 80 MG TAB.CHEW GT SCH ×3 (08:28→17:35)
[2020-02-20] MEDS: METOPROLOL TARTRATE 50 MG TABLET GT SCH ×2 (08:28→21:15)
[2020-02-20] MEDS: SERTRALINE HCL 50 MG TABLET GT SCH (08:28)
[2020-02-20] MEDS: TRIAMCINOLONE ACET 0.1% OINT 15 GM TUBE TP SCH ×2 (09:00→21:15)
[2020-02-20] MEDS: Z GUARD REMEDY PASTE 57 GM TUBE TOP SCH ×2 (09:00→21:15)
[2020-02-20] MEDS: HYDROGEN PEROXIDE 3% 118 ML BOTTLE TP SCH ×2 (09:17→19:24)
--- NOTE | 2020-02-20 18:45 | NUR ---
NO A/R TO FLU VACCINE ,AFEBRILE.
[2020-02-20] MEDS: ASCORBIC ACID 500 MG TABLET GT SCH (21:15)
[2020-02-20 22:31] VITALS: BP 133/83
--- NOTE | 2020-02-20 22:57 | NUR ---
Afebrile, no adverse reactions noted from the flu vaccine.
[2020-02-21] MEDS: GLUCERNA 1.2 1000ML LIQUID GT PRN (03:34)
[2020-02-21] MEDS: OMEPRAZOLE 20 MG CAPSULE.DR GT SCH (05:35)
[2020-02-21 07:43] VITALS: BP 111/77
[2020-02-21] MEDS: ACIDOPHILUS/BULGARICUS CHEW TAB GT SCH ×2 (08:12→20:26)
[2020-02-21] MEDS: SERTRALINE HCL 50 MG TABLET GT SCH (08:13)
[2020-02-21] MEDS: Z GUARD REMEDY PASTE 57 GM TUBE TOP SCH ×2 (08:13→20:26)
[2020-02-21] MEDS: SIMETHICONE 80 MG TAB.CHEW GT SCH ×3 (08:13→17:07)
[2020-02-21] MEDS: BACLOFEN 20 MG TABLET GT SCH ×4 (08:13→20:26)
[2020-02-21] MEDS: METOPROLOL TARTRATE 50 MG TABLET GT SCH ×2 (08:13→21:27)
[2020-02-21] MEDS: HYDROGEN PEROXIDE 3% 118 ML BOTTLE TP SCH ×2 (08:38→21:00)
[2020-02-21] MEDS: TRIAMCINOLONE ACET 0.1% OINT 15 GM TUBE TP SCH ×2 (09:50→20:26)
--- NOTE | 2020-02-21 18:01 | NUR ---
NO A/R TO FLU VACCINE ,AFEBRILE.
[2020-02-21] MEDS: ASCORBIC ACID 500 MG TABLET GT SCH (20:26)
[2020-02-21] MEDS: NEOMY/BACITRA/POLYMYXIN B OINT UD PACKET TP SCH (20:27)
--- NOTE | 2020-02-21 21:53 | NUR ---
Afebrile, no adverse reactions from flu vaccine, no redness on injection site.
[2020-02-21 22:25] VITALS: BP 128/83
[2020-02-22] MEDS: OMEPRAZOLE 20 MG CAPSULE.DR GT SCH (06:38)
[2020-02-22] MEDS: MULTIVIT, IRON, MIN NO. 8, FA TABLET GT SCH (06:38)
[2020-02-22 07:47] VITALS: BP 116/77
[2020-02-22] MEDS: ACIDOPHILUS/BULGARICUS CHEW TAB GT SCH ×2 (08:04→20:58)
[2020-02-22] MEDS: Z GUARD REMEDY PASTE 57 GM TUBE TOP SCH ×2 (08:04→20:59)
[2020-02-22] MEDS: SIMETHICONE 80 MG TAB.CHEW GT SCH ×3 (08:04→16:39)
[2020-02-22] MEDS: SERTRALINE HCL 50 MG TABLET GT SCH (08:04)
[2020-02-22] MEDS: METOPROLOL TARTRATE 50 MG TABLET GT SCH ×2 (08:04→20:58)
[2020-02-22] MEDS: BACLOFEN 20 MG TABLET GT SCH ×4 (08:04→20:58)
[2020-02-22] MEDS: GLUCERNA 1.2 1000ML LIQUID GT PRN (08:05)
[2020-02-22] MEDS: NEOMY/BACITRA/POLYMYXIN B OINT UD PACKET TP SCH ×2 (08:05→21:00)
[2020-02-22] MEDS: TRIAMCINOLONE ACET 0.1% OINT 15 GM TUBE TP SCH ×2 (08:05→20:59)
[2020-02-22] MEDS: HYDROGEN PEROXIDE 3% 118 ML BOTTLE TP SCH ×2 (09:09→21:46)
--- NOTE | 2020-02-22 13:27 | NUR ---
SEEN BY DR. IBRAHIM AND WITH NNO.
--- NOTE | 2020-02-22 13:51 | NUR ---
NO A/T TO FLU VACCINE ,AFEBRILE.
[2020-02-22] MEDS: ASCORBIC ACID 500 MG TABLET GT SCH (20:59)
[2020-02-22 22:36] VITALS: BP 118/75
[2020-02-23] MEDS: GLUCERNA 1.2 1000ML LIQUID GT PRN (03:35)
[2020-02-23] MEDS: OMEPRAZOLE 20 MG CAPSULE.DR GT SCH (05:14)
[2020-02-23 06:44] LABS: BASOPHILS # (AUTO) 0.1 K/uL (0.0-8.0); EOSINOPHILS # (AUTO) 0.3 K/uL (0.0-0.7); HEMATOCRIT 31.9 % (31.2-41.9); HEMOGLOBIN 9.8 g/dL (10.9-14.3); LYMPHOCYTES # (AUTO) 2.7 K/uL (20.0-40.0); LYMPHOCYTES % (AUTO) 35.4 % (20.5-51.5); MEAN CORPUSCULAR HEMOGLOBIN 20.8 uug (24.7-32.8); MEAN CORPUSCULAR HGB CONC 31 g/dL (32.3-35.6); MEAN CORPUSCULAR VOLUME 67.6 fL (75.5-95.3); MONOCYTES # (AUTO) 0.9 K/uL (2.0-10.0); MONOCYTES % (AUTO) 11.6 % (0.0-11.0); NEUTROPHILS # (AUTO) 3.6 K/uL (1.8-8.9); PLATELET COUNT (AUTO) 332 K/uL (179-408); RED BLOOD CELL COUNT(AUTO) 4.72 MIL/uL (3.63-4.92); WHITE BLOOD COUNT (AUTO) 7.6 K/uL (3.8-11.8)
--- NOTE | 2020-02-23 07:11 | NUR ---
No A/R to flu vaccine, afebrile.
[2020-02-23] MEDS: ACIDOPHILUS/BULGARICUS CHEW TAB GT SCH ×2 (08:31→20:50)
[2020-02-23] MEDS: BACLOFEN 20 MG TABLET GT SCH ×4 (08:31→20:50)
[2020-02-23] MEDS: SERTRALINE HCL 50 MG TABLET GT SCH (08:32)
[2020-02-23] MEDS: NEOMY/BACITRA/POLYMYXIN B OINT UD PACKET TP SCH ×2 (08:32→20:51)
[2020-02-23] MEDS: SIMETHICONE 80 MG TAB.CHEW GT SCH ×3 (08:32→17:25)
[2020-02-23] MEDS: METOPROLOL TARTRATE 50 MG TABLET GT SCH ×2 (08:32→20:50)
[2020-02-23] MEDS: TRIAMCINOLONE ACET 0.1% OINT 15 GM TUBE TP SCH ×2 (08:32→20:51)
[2020-02-23] MEDS: Z GUARD REMEDY PASTE 57 GM TUBE TOP SCH ×2 (08:32→20:51)
[2020-02-23] MEDS: KETOCONAZOLE 2% SHAMPOO 120 ML BOTTLE TP SCH (08:32)
[2020-02-23] MEDS: HYDROGEN PEROXIDE 3% 118 ML BOTTLE TP SCH ×2 (09:13→21:37)
--- NOTE | 2020-02-23 15:45 | NUR ---
SEEN BY GLENN Bolaños AND WITH NNO.
[2020-02-23 20:06] VITALS: BP_SYST 118; BP_SYST 130; BP_DIAS 72; BP_DIAS 80
[2020-02-23] MEDS: ASCORBIC ACID 500 MG TABLET GT SCH (20:50)
[2020-02-24] MEDS: GLUCERNA 1.2 1000ML LIQUID GT PRN (04:43)
[2020-02-24] MEDS: MULTIVIT, IRON, MIN NO. 8, FA TABLET GT SCH (05:55)
[2020-02-24] MEDS: OMEPRAZOLE 20 MG CAPSULE.DR GT SCH (05:55)
[2020-02-24 07:26] VITALS: BP 122/84
[2020-02-24] MEDS: BACLOFEN 20 MG TABLET GT SCH ×4 (08:26→21:34)
[2020-02-24] MEDS: ACIDOPHILUS/BULGARICUS CHEW TAB GT SCH ×2 (08:26→21:33)
[2020-02-24] MEDS: METOPROLOL TARTRATE 50 MG TABLET GT SCH ×2 (08:27→21:34)
[2020-02-24] MEDS: SIMETHICONE 80 MG TAB.CHEW GT SCH ×3 (08:27→17:04)
[2020-02-24] MEDS: TRIAMCINOLONE ACET 0.1% OINT 15 GM TUBE TP SCH ×2 (08:28→21:35)
[2020-02-24] MEDS: SERTRALINE HCL 50 MG TABLET GT SCH (08:28)
[2020-02-24] MEDS: Z GUARD REMEDY PASTE 57 GM TUBE TOP SCH ×2 (08:28→21:34)
[2020-02-24] MEDS: NEOMY/BACITRA/POLYMYXIN B OINT UD PACKET TP SCH ×2 (08:28→21:35)
[2020-02-24] MEDS: HYDROGEN PEROXIDE 3% 118 ML BOTTLE TP SCH ×2 (09:26→21:23)
[2020-02-24 20:47] VITALS: BP 122/78
[2020-02-24] MEDS: ASCORBIC ACID 500 MG TABLET GT SCH (21:34)
[2020-02-25] MEDS: GLUCERNA 1.2 1000ML LIQUID GT PRN (01:31)
[2020-02-25] MEDS: OMEPRAZOLE 20 MG CAPSULE.DR GT SCH (05:49)
[2020-02-25] MEDS: HYDROGEN PEROXIDE 3% 118 ML BOTTLE TP SCH ×2 (07:11→21:50)
[2020-02-25 07:37] VITALS: BP 124/67
[2020-02-25] MEDS: BACLOFEN 20 MG TABLET GT SCH ×4 (08:15→21:40)
[2020-02-25] MEDS: ACIDOPHILUS/BULGARICUS CHEW TAB GT SCH ×2 (08:15→21:39)
[2020-02-25] MEDS: METOPROLOL TARTRATE 50 MG TABLET GT SCH ×2 (08:27→21:41)
[2020-02-25] MEDS: Z GUARD REMEDY PASTE 57 GM TUBE TOP SCH ×2 (08:27→21:41)
[2020-02-25] MEDS: SIMETHICONE 80 MG TAB.CHEW GT SCH ×3 (08:27→16:39)
[2020-02-25] MEDS: SERTRALINE HCL 50 MG TABLET GT SCH (08:27)
[2020-02-25] MEDS: TRIAMCINOLONE ACET 0.1% OINT 15 GM TUBE TP SCH ×2 (08:27→21:41)
[2020-02-25] MEDS: NEOMY/BACITRA/POLYMYXIN B OINT UD PACKET TP SCH (08:27)
--- NOTE | 2020-02-25 17:30 | NUR ---
Seen and examined by Dr Heaton,new orders noted to DC triple ATB on lower abdomen scratch,healed.
[2020-02-25 19:44] VITALS: BP 118/75
[2020-02-25] MEDS: ASCORBIC ACID 500 MG TABLET GT SCH (21:41)
[2020-02-26] MEDS: GLUCERNA 1.2 1000ML LIQUID GT PRN (00:01)
[2020-02-26] MEDS: MULTIVIT, IRON, MIN NO. 8, FA TABLET GT SCH (05:57)
[2020-02-26] MEDS: OMEPRAZOLE 20 MG CAPSULE.DR GT SCH (05:57)
[2020-02-26 07:23] VITALS: BP 124/67
[2020-02-26] MEDS: ACIDOPHILUS/BULGARICUS CHEW TAB GT SCH ×2 (08:42→20:48)
[2020-02-26] MEDS: SIMETHICONE 80 MG TAB.CHEW GT SCH ×3 (08:42→17:05)
[2020-02-26] MEDS: BACLOFEN 20 MG TABLET GT SCH ×4 (08:42→20:48)
[2020-02-26] MEDS: TRIAMCINOLONE ACET 0.1% OINT 15 GM TUBE TP SCH ×2 (08:42→20:50)
[2020-02-26] MEDS: Z GUARD REMEDY PASTE 57 GM TUBE TOP SCH ×2 (08:42→20:49)
[2020-02-26] MEDS: METOPROLOL TARTRATE 50 MG TABLET GT SCH ×2 (08:42→20:48)
[2020-02-26] MEDS: KETOCONAZOLE 2% SHAMPOO 120 ML BOTTLE TP SCH (08:42)
[2020-02-26] MEDS: SERTRALINE HCL 50 MG TABLET GT SCH (08:42)
[2020-02-26] MEDS: HYDROGEN PEROXIDE 3% 118 ML BOTTLE TP SCH ×2 (09:32→21:30)
[2020-02-26 20:04] VITALS: BP 119/72
--- NOTE | 2020-02-26 20:28 | NUR ---
CALLED RESPONSIBLE LIBERTARIAN, JESICA FOFANA ON [phone] AND INFORMED HER OF POSSIBLE COVID-19 EXPOSURE ON THE SUBACUTE UNIT AND THE FOLLOW UP TESTING PLAN FOR THE NEXT 14 DAYS, MANDATED BY [facility] REGULATIONS. ALSO NOTIFIED JESICA THAT NURSING WILL CALL HIM WITH THE RESULT IT BECOMES AVAILABLE. JESICA EXPRESSED UNDERSTANDING.
[2020-02-26] MEDS: ASCORBIC ACID 500 MG TABLET GT SCH (20:49)
--- NOTE | 2020-02-26 23:14 | NUR ---
Noted patient with left upper eyelid swelling, no redness or drainage noted, cleansed and applied warm compress, kept clean and comfortable, will continue monitor. Addendum: 02/27/20 at 0049 by JANY CARMONA RN Left upper eyelid bump/swelling, good eye care done.
[2020-02-27] MEDS: GLUCERNA 1.2 1000ML LIQUID GT PRN ×2 (00:36→23:01)
--- NOTE | 2020-02-27 01:29 | NUR ---
Patient is afebrile, No respiratory distress noted, 02 sat is 98%, will continue monitor.
[2020-02-27] MEDS: OMEPRAZOLE 20 MG CAPSULE.DR GT SCH (06:16)
[2020-02-27] MEDS: HYDROGEN PEROXIDE 3% 118 ML BOTTLE TP SCH ×2 (07:27→21:23)
[2020-02-27] MEDS: BACLOFEN 20 MG TABLET GT SCH ×4 (08:14→21:44)
[2020-02-27] MEDS: ACIDOPHILUS/BULGARICUS CHEW TAB GT SCH ×2 (08:14→21:44)
[2020-02-27] MEDS: TRIAMCINOLONE ACET 0.1% OINT 15 GM TUBE TP SCH ×2 (08:15→21:44)
[2020-02-27] MEDS: METOPROLOL TARTRATE 50 MG TABLET GT SCH ×2 (08:15→21:44)
[2020-02-27] MEDS: SERTRALINE HCL 50 MG TABLET GT SCH (08:15)
[2020-02-27] MEDS: SIMETHICONE 80 MG TAB.CHEW GT SCH ×3 (08:15→16:45)
[2020-02-27] MEDS: Z GUARD REMEDY PASTE 57 GM TUBE TOP SCH ×2 (08:15→21:44)
[2020-02-27 08:19] VITALS: BP 123/70
[2020-02-27 20:13] VITALS: BP 111/79
[2020-02-27] MEDS: ASCORBIC ACID 500 MG TABLET GT SCH (21:44)
[2020-02-28] MEDS: OMEPRAZOLE 20 MG CAPSULE.DR GT SCH (05:21)
[2020-02-28] MEDS: MULTIVIT, IRON, MIN NO. 8, FA TABLET GT SCH (05:59)
[2020-02-28 07:38] VITALS: BP 105/66
[2020-02-28] MEDS: ACIDOPHILUS/BULGARICUS CHEW TAB GT SCH ×2 (08:02→21:26)
[2020-02-28] MEDS: BACLOFEN 20 MG TABLET GT SCH ×4 (08:02→21:26)
[2020-02-28] MEDS: SERTRALINE HCL 50 MG TABLET GT SCH (08:05)
[2020-02-28] MEDS: SIMETHICONE 80 MG TAB.CHEW GT SCH ×3 (08:05→17:37)
[2020-02-28] MEDS: METOPROLOL TARTRATE 50 MG TABLET GT SCH ×2 (08:05→21:27)
[2020-02-28] MEDS: TRIAMCINOLONE ACET 0.1% OINT 15 GM TUBE TP SCH ×2 (08:06→21:29)
[2020-02-28] MEDS: Z GUARD REMEDY PASTE 57 GM TUBE TOP SCH ×2 (08:06→21:29)
[2020-02-28] MEDS: HYDROGEN PEROXIDE 3% 118 ML BOTTLE TP SCH ×2 (09:00→21:05)
[2020-02-28 20:23] VITALS: BP 122/68
[2020-02-28] MEDS: ASCORBIC ACID 500 MG TABLET GT SCH (21:27)
[2020-02-28] MEDS: GLUCERNA 1.2 1000ML LIQUID GT PRN (21:35)
[2020-02-29] MEDS: OMEPRAZOLE 20 MG CAPSULE.DR GT SCH (05:17)
[2020-02-29 08:02] VITALS: BP 132/80
[2020-02-29] MEDS: ACIDOPHILUS/BULGARICUS CHEW TAB GT SCH ×2 (09:06→21:31)
[2020-02-29] MEDS: BACLOFEN 20 MG TABLET GT SCH ×4 (09:06→21:31)
[2020-02-29] MEDS: Z GUARD REMEDY PASTE 57 GM TUBE TOP SCH ×2 (09:07→21:32)
[2020-02-29] MEDS: SIMETHICONE 80 MG TAB.CHEW GT SCH ×3 (09:07→17:00)
[2020-02-29] MEDS: SERTRALINE HCL 50 MG TABLET GT SCH (09:07)
[2020-02-29] MEDS: METOPROLOL TARTRATE 50 MG TABLET GT SCH ×2 (09:07→21:31)
[2020-02-29] MEDS: TRIAMCINOLONE ACET 0.1% OINT 15 GM TUBE TP SCH ×2 (09:07→21:32)
[2020-02-29] MEDS: HYDROGEN PEROXIDE 3% 118 ML BOTTLE TP SCH ×2 (09:15→21:31)
[2020-02-29] MEDS: GLUCERNA 1.2 1000ML LIQUID GT PRN (18:07)
[2020-02-29 20:27] VITALS: BP 126/85
[2020-02-29] MEDS: ASCORBIC ACID 500 MG TABLET GT SCH (21:31)
[2020-03-01] MEDS: OMEPRAZOLE 20 MG CAPSULE.DR GT SCH (06:04)
[2020-03-01] MEDS: MULTIVIT, IRON, MIN NO. 8, FA TABLET GT SCH (06:04)
[2020-03-01 07:36] VITALS: BP 96/45
[2020-03-01] MEDS: METOPROLOL TARTRATE 50 MG TABLET GT SCH ×2 (08:42→21:14)
[2020-03-01] MEDS: BACLOFEN 20 MG TABLET GT SCH ×4 (08:42→21:14)
[2020-03-01] MEDS: ACIDOPHILUS/BULGARICUS CHEW TAB GT SCH ×2 (08:42→21:14)
[2020-03-01] MEDS: KETOCONAZOLE 2% SHAMPOO 120 ML BOTTLE TP SCH (08:43)
[2020-03-01] MEDS: Z GUARD REMEDY PASTE 57 GM TUBE TOP SCH ×2 (08:43→21:14)
[2020-03-01] MEDS: SIMETHICONE 80 MG TAB.CHEW GT SCH ×3 (08:43→17:55)
[2020-03-01] MEDS: SERTRALINE HCL 50 MG TABLET GT SCH (08:43)
[2020-03-01] MEDS: TRIAMCINOLONE ACET 0.1% OINT 15 GM TUBE TP SCH ×2 (08:43→21:15)
[2020-03-01] MEDS: HYDROGEN PEROXIDE 3% 118 ML BOTTLE TP SCH ×2 (09:15→19:07)
[2020-03-01 20:10] VITALS: BP 135/85
[2020-03-01] MEDS: ASCORBIC ACID 500 MG TABLET GT SCH (21:14)
[2020-03-02] MEDS: OMEPRAZOLE 20 MG CAPSULE.DR GT SCH (05:59)
[2020-03-02] MEDS: GLUCERNA 1.2 1000ML LIQUID GT PRN (07:09)
[2020-03-02] MEDS: HYDROGEN PEROXIDE 3% 118 ML BOTTLE TP SCH ×2 (07:40→21:30)
[2020-03-02 07:59] VITALS: BP 120/75
[2020-03-02] MEDS: ACIDOPHILUS/BULGARICUS CHEW TAB GT SCH ×2 (08:35→21:24)
[2020-03-02] MEDS: BACLOFEN 20 MG TABLET GT SCH ×4 (08:35→21:24)
[2020-03-02] MEDS: SIMETHICONE 80 MG TAB.CHEW GT SCH ×3 (08:36→17:46)
[2020-03-02] MEDS: METOPROLOL TARTRATE 50 MG TABLET GT SCH ×2 (08:36→21:25)
[2020-03-02] MEDS: SERTRALINE HCL 50 MG TABLET GT SCH (08:36)
[2020-03-02] MEDS: TRIAMCINOLONE ACET 0.1% OINT 15 GM TUBE TP SCH ×2 (08:36→21:25)
[2020-03-02] MEDS: Z GUARD REMEDY PASTE 57 GM TUBE TOP SCH ×2 (08:36→21:25)
--- NOTE | 2020-03-02 17:00 | NUR ---
Frank zurita's brother notified Covid 19 results was negative..
[2020-03-02 20:04] VITALS: BP 138/81
[2020-03-02] MEDS: ASCORBIC ACID 500 MG TABLET GT SCH (21:25)
[2020-03-03] MEDS: MULTIVIT, IRON, MIN NO. 8, FA TABLET GT SCH (05:52)
[2020-03-03] MEDS: OMEPRAZOLE 20 MG CAPSULE.DR GT SCH (05:52)
[2020-03-03 07:45] VITALS: BP 124/63
[2020-03-03] MEDS: BACLOFEN 20 MG TABLET GT SCH ×4 (09:04→21:24)
[2020-03-03] MEDS: METOPROLOL TARTRATE 50 MG TABLET GT SCH ×2 (09:04→21:24)
[2020-03-03] MEDS: ACIDOPHILUS/BULGARICUS CHEW TAB GT SCH ×2 (09:04→21:24)
[2020-03-03] MEDS: Z GUARD REMEDY PASTE 57 GM TUBE TOP SCH ×2 (09:04→21:25)
[2020-03-03] MEDS: SIMETHICONE 80 MG TAB.CHEW GT SCH ×3 (09:04→17:34)
[2020-03-03] MEDS: SERTRALINE HCL 50 MG TABLET GT SCH (09:04)
[2020-03-03] MEDS: TRIAMCINOLONE ACET 0.1% OINT 15 GM TUBE TP SCH ×2 (09:05→21:25)
[2020-03-03] MEDS: HYDROGEN PEROXIDE 3% 118 ML BOTTLE TP SCH ×2 (09:31→21:25)
--- NOTE | 2020-03-03 18:54 | NUR ---
Seen and examined by Dr Heaton,no new orders.
[2020-03-03 20:05] VITALS: BP 138/76
[2020-03-03] MEDS: ASCORBIC ACID 500 MG TABLET GT SCH (21:24)
[2020-03-04] MEDS: OMEPRAZOLE 20 MG CAPSULE.DR GT SCH (05:35)
[2020-03-04 07:37] VITALS: BP 126/67
[2020-03-04] MEDS: HYDROGEN PEROXIDE 3% 118 ML BOTTLE TP SCH ×2 (08:31→21:27)
[2020-03-04] MEDS: SERTRALINE HCL 50 MG TABLET GT SCH (08:36)
[2020-03-04] MEDS: Z GUARD REMEDY PASTE 57 GM TUBE TOP SCH ×2 (08:36→21:41)
[2020-03-04] MEDS: SIMETHICONE 80 MG TAB.CHEW GT SCH ×3 (08:36→16:56)
[2020-03-04] MEDS: BACLOFEN 20 MG TABLET GT SCH ×4 (08:36→21:38)
[2020-03-04] MEDS: ACIDOPHILUS/BULGARICUS CHEW TAB GT SCH ×2 (08:36→21:36)
[2020-03-04] MEDS: METOPROLOL TARTRATE 50 MG TABLET GT SCH ×2 (08:36→21:40)
[2020-03-04] MEDS: KETOCONAZOLE 2% SHAMPOO 120 ML BOTTLE TP SCH (08:37)
[2020-03-04] MEDS: TRIAMCINOLONE ACET 0.1% OINT 15 GM TUBE TP SCH ×2 (09:00→21:41)
[2020-03-04] MEDS: GLUCERNA 1.2 1000ML LIQUID GT PRN (15:02)
[2020-03-04] MEDS: ASCORBIC ACID 500 MG TABLET GT SCH (21:40)
[2020-03-04 23:06] VITALS: BP 120/80
[2020-03-05] MEDS: OMEPRAZOLE 20 MG CAPSULE.DR GT SCH (05:46)
[2020-03-05] MEDS: MULTIVIT, IRON, MIN NO. 8, FA TABLET GT SCH (05:46)
[2020-03-05 07:55] VITALS: BP 123/86
[2020-03-05] MEDS: BACLOFEN 20 MG TABLET GT SCH ×4 (08:35→20:13)
[2020-03-05] MEDS: ACIDOPHILUS/BULGARICUS CHEW TAB GT SCH ×2 (08:35→20:13)
[2020-03-05] MEDS: Z GUARD REMEDY PASTE 57 GM TUBE TOP SCH ×2 (08:36→20:13)
[2020-03-05] MEDS: TRIAMCINOLONE ACET 0.1% OINT 15 GM TUBE TP SCH ×2 (08:36→20:13)
[2020-03-05] MEDS: SERTRALINE HCL 50 MG TABLET GT SCH (08:36)
[2020-03-05] MEDS: METOPROLOL TARTRATE 50 MG TABLET GT SCH ×2 (08:36→20:13)
[2020-03-05] MEDS: SIMETHICONE 80 MG TAB.CHEW GT SCH ×3 (08:36→16:19)
[2020-03-05] MEDS: HYDROGEN PEROXIDE 3% 118 ML BOTTLE TP SCH ×2 (09:45→21:22)
[2020-03-05] MEDS: GLUCERNA 1.2 1000ML LIQUID GT PRN (11:38)
[2020-03-05] MEDS: ASCORBIC ACID 500 MG TABLET GT SCH (20:13)
[2020-03-05 22:39] VITALS: BP 135/88
[2020-03-06] MEDS: OMEPRAZOLE 20 MG CAPSULE.DR GT SCH (05:35)
[2020-03-06 07:46] VITALS: BP 132/83
[2020-03-06] MEDS: HYDROGEN PEROXIDE 3% 118 ML BOTTLE TP SCH ×2 (09:15→21:40)
[2020-03-06] MEDS: ACIDOPHILUS/BULGARICUS CHEW TAB GT SCH ×2 (09:24→20:16)
[2020-03-06] MEDS: BACLOFEN 20 MG TABLET GT SCH ×4 (09:25→20:16)
[2020-03-06] MEDS: METOPROLOL TARTRATE 50 MG TABLET GT SCH ×2 (09:33→20:16)
[2020-03-06] MEDS: TRIAMCINOLONE ACET 0.1% OINT 15 GM TUBE TP SCH ×2 (09:33→20:17)
[2020-03-06] MEDS: SIMETHICONE 80 MG TAB.CHEW GT SCH ×3 (09:33→17:05)
[2020-03-06] MEDS: Z GUARD REMEDY PASTE 57 GM TUBE TOP SCH ×2 (09:33→20:17)
[2020-03-06] MEDS: SERTRALINE HCL 50 MG TABLET GT SCH (09:33)
[2020-03-06] MEDS: ASCORBIC ACID 500 MG TABLET GT SCH (20:16)
[2020-03-06 23:13] VITALS: BP 141/82
[2020-03-07] MEDS: MULTIVIT, IRON, MIN NO. 8, FA TABLET GT SCH (05:42)
[2020-03-07] MEDS: OMEPRAZOLE 20 MG CAPSULE.DR GT SCH (05:42)
[2020-03-07 07:42] VITALS: BP 131/81
[2020-03-07] MEDS: METOPROLOL TARTRATE 50 MG TABLET GT SCH ×2 (08:17→20:25)
[2020-03-07] MEDS: ACIDOPHILUS/BULGARICUS CHEW TAB GT SCH ×2 (08:17→20:24)
[2020-03-07] MEDS: BACLOFEN 20 MG TABLET GT SCH ×4 (08:17→20:24)
[2020-03-07] MEDS: SIMETHICONE 80 MG TAB.CHEW GT SCH ×3 (08:18→17:35)
[2020-03-07] MEDS: TRIAMCINOLONE ACET 0.1% OINT 15 GM TUBE TP SCH ×2 (08:18→20:25)
[2020-03-07] MEDS: SERTRALINE HCL 50 MG TABLET GT SCH (08:18)
[2020-03-07] MEDS: Z GUARD REMEDY PASTE 57 GM TUBE TOP SCH ×2 (08:18→20:25)
[2020-03-07] MEDS: HYDROGEN PEROXIDE 3% 118 ML BOTTLE TP SCH ×2 (09:08→21:04)
[2020-03-07] MEDS: GLUCERNA 1.2 1000ML LIQUID GT PRN (13:50)
[2020-03-07] MEDS: ASCORBIC ACID 500 MG TABLET GT SCH (20:25)
[2020-03-07 23:03] VITALS: BP 120/90
[2020-03-08] MEDS: OMEPRAZOLE 20 MG CAPSULE.DR GT SCH (05:10)
[2020-03-08 07:44] VITALS: BP 137/80
[2020-03-08] MEDS: SERTRALINE HCL 50 MG TABLET GT SCH (08:41)
[2020-03-08] MEDS: SIMETHICONE 80 MG TAB.CHEW GT SCH ×3 (08:41→17:31)
[2020-03-08] MEDS: ACIDOPHILUS/BULGARICUS CHEW TAB GT SCH ×2 (08:41→20:48)
[2020-03-08] MEDS: BACLOFEN 20 MG TABLET GT SCH ×4 (08:41→20:48)
[2020-03-08] MEDS: METOPROLOL TARTRATE 50 MG TABLET GT SCH ×2 (08:41→20:48)
[2020-03-08] MEDS: Z GUARD REMEDY PASTE 57 GM TUBE TOP SCH ×2 (08:42→20:48)
[2020-03-08] MEDS: TRIAMCINOLONE ACET 0.1% OINT 15 GM TUBE TP SCH ×2 (08:42→20:48)
[2020-03-08] MEDS: KETOCONAZOLE 2% SHAMPOO 120 ML BOTTLE TP SCH (08:42)
[2020-03-08] MEDS: HYDROGEN PEROXIDE 3% 118 ML BOTTLE TP SCH ×2 (09:00→21:00)
--- NOTE | 2020-03-08 16:00 | NUR ---
SEEN BY GLENN Bolaños AND WITH NNO.
--- NOTE | 2020-03-08 18:58 | NUR ---
NEW ORDER WAS CARRIED OUT FROM DR. IBRAHIM FOR COVID 19 PER [facility] REQUIREMENT AND PT'S BROTHER WAS NOTIFIED. WITH A MESSAGE.
[2020-03-08] MEDS: ASCORBIC ACID 500 MG TABLET GT SCH (20:48)
[2020-03-08 20:55] VITALS: BP 129/78
--- NOTE | 2020-03-08 22:00 | NUR ---
brother,pratibha called back, notified covid 19 test.
[2020-03-09] MEDS: MULTIVIT, IRON, MIN NO. 8, FA TABLET GT SCH (05:31)
[2020-03-09] MEDS: OMEPRAZOLE 20 MG CAPSULE.DR GT SCH (05:31)
[2020-03-09 07:31] VITALS: BP 120/74
[2020-03-09] MEDS: HYDROGEN PEROXIDE 3% 118 ML BOTTLE TP SCH ×2 (09:00→21:13)
[2020-03-09] MEDS: BACLOFEN 20 MG TABLET GT SCH ×4 (09:46→21:00)
[2020-03-09] MEDS: METOPROLOL TARTRATE 50 MG TABLET GT SCH ×2 (09:46→21:00)
[2020-03-09] MEDS: ACIDOPHILUS/BULGARICUS CHEW TAB GT SCH ×2 (09:46→21:00)
[2020-03-09] MEDS: TRIAMCINOLONE ACET 0.1% OINT 15 GM TUBE TP SCH ×2 (09:47→21:00)
[2020-03-09] MEDS: SERTRALINE HCL 50 MG TABLET GT SCH (09:47)
[2020-03-09] MEDS: Z GUARD REMEDY PASTE 57 GM TUBE TOP SCH ×2 (09:47→21:00)
[2020-03-09] MEDS: SIMETHICONE 80 MG TAB.CHEW GT SCH ×3 (09:47→16:25)
[2020-03-09] MEDS: GLUCERNA 1.2 1000ML LIQUID GT PRN (12:00)
--- NOTE | 2020-03-09 19:15 | NUR ---
Covid19 test results negative.
[2020-03-09 20:00] VITALS: BP 133/85
[2020-03-09] MEDS: ASCORBIC ACID 500 MG TABLET GT SCH (21:00)
[2020-03-10] MEDS: OMEPRAZOLE 20 MG CAPSULE.DR GT SCH (05:42)
[2020-03-10 07:40] VITALS: BP_SYST 74
[2020-03-10] MEDS: BACLOFEN 20 MG TABLET GT SCH ×4 (08:23→20:17)
[2020-03-10] MEDS: ACIDOPHILUS/BULGARICUS CHEW TAB GT SCH ×2 (08:23→20:17)
[2020-03-10] MEDS: METOPROLOL TARTRATE 50 MG TABLET GT SCH ×2 (08:25→20:19)
[2020-03-10] MEDS: TRIAMCINOLONE ACET 0.1% OINT 15 GM TUBE TP SCH ×2 (08:25→20:20)
[2020-03-10] MEDS: SERTRALINE HCL 50 MG TABLET GT SCH (08:25)
[2020-03-10] MEDS: SIMETHICONE 80 MG TAB.CHEW GT SCH ×3 (08:25→17:14)
[2020-03-10] MEDS: Z GUARD REMEDY PASTE 57 GM TUBE TOP SCH ×2 (08:25→20:20)
[2020-03-10] MEDS: HYDROGEN PEROXIDE 3% 118 ML BOTTLE TP SCH ×2 (09:00→21:55)
--- NOTE | 2020-03-10 12:27 | NUR ---
Frank zurita's brother notified Covid 19 results was negative.
[2020-03-10 20:00] VITALS: BP 120/76
[2020-03-10] MEDS: ASCORBIC ACID 500 MG TABLET GT SCH (20:19)
[2020-03-11] MEDS: OMEPRAZOLE 20 MG CAPSULE.DR GT SCH (05:23)
[2020-03-11] MEDS: MULTIVIT, IRON, MIN NO. 8, FA TABLET GT SCH (06:31)
[2020-03-11 07:40] VITALS: BP 126/69
[2020-03-11] MEDS: ACIDOPHILUS/BULGARICUS CHEW TAB GT SCH ×2 (08:54→21:20)
[2020-03-11] MEDS: Z GUARD REMEDY PASTE 57 GM TUBE TOP SCH ×2 (08:54→21:25)
[2020-03-11] MEDS: BACLOFEN 20 MG TABLET GT SCH ×4 (08:54→21:20)
[2020-03-11] MEDS: TRIAMCINOLONE ACET 0.1% OINT 15 GM TUBE TP SCH ×2 (08:54→21:25)
[2020-03-11] MEDS: KETOCONAZOLE 2% SHAMPOO 120 ML BOTTLE TP SCH (08:54)
[2020-03-11] MEDS: SIMETHICONE 80 MG TAB.CHEW GT SCH ×3 (08:54→16:47)
[2020-03-11] MEDS: SERTRALINE HCL 50 MG TABLET GT SCH (08:54)
[2020-03-11] MEDS: METOPROLOL TARTRATE 50 MG TABLET GT SCH ×2 (08:55→21:25)
[2020-03-11] MEDS: HYDROGEN PEROXIDE 3% 118 ML BOTTLE TP SCH ×2 (09:15→21:17)
[2020-03-11] MEDS: GLUCERNA 1.2 1000ML LIQUID GT PRN (12:40)
[2020-03-11 20:00] VITALS: BP 109/71
[2020-03-11] MEDS: ASCORBIC ACID 500 MG TABLET GT SCH (21:25)
[2020-03-12] MEDS: OMEPRAZOLE 20 MG CAPSULE.DR GT SCH (05:43)
[2020-03-12] MEDS: HYDROGEN PEROXIDE 3% 118 ML BOTTLE TP SCH ×2 (07:32→21:32)
[2020-03-12 08:00] VITALS: BP 119/74
[2020-03-12] MEDS: ACIDOPHILUS/BULGARICUS CHEW TAB GT SCH ×2 (08:49→21:27)
[2020-03-12] MEDS: SERTRALINE HCL 50 MG TABLET GT SCH (08:50)
[2020-03-12] MEDS: BACLOFEN 20 MG TABLET GT SCH ×4 (08:50→21:27)
[2020-03-12] MEDS: SIMETHICONE 80 MG TAB.CHEW GT SCH ×3 (08:50→17:14)
[2020-03-12] MEDS: Z GUARD REMEDY PASTE 57 GM TUBE TOP SCH ×2 (08:59→21:27)
[2020-03-12] MEDS: METOPROLOL TARTRATE 50 MG TABLET GT SCH ×2 (09:01→21:27)
[2020-03-12] MEDS: TRIAMCINOLONE ACET 0.1% OINT 15 GM TUBE TP SCH ×2 (10:00→21:27)
[2020-03-12] MEDS: GLUCERNA 1.2 1000ML LIQUID GT PRN (11:52)
[2020-03-12 20:00] VITALS: BP 119/77
[2020-03-12] MEDS: ASCORBIC ACID 500 MG TABLET GT SCH (21:27)
[2020-03-13] MEDS: MULTIVIT, IRON, MIN NO. 8, FA TABLET GT SCH (05:35)
[2020-03-13] MEDS: OMEPRAZOLE 20 MG CAPSULE.DR GT SCH (05:35)
[2020-03-13 07:33] VITALS: BP 118/69
[2020-03-13] MEDS: METOPROLOL TARTRATE 50 MG TABLET GT SCH ×2 (08:25→21:41)
[2020-03-13] MEDS: ACIDOPHILUS/BULGARICUS CHEW TAB GT SCH ×2 (08:30→21:41)
[2020-03-13] MEDS: BACLOFEN 20 MG TABLET GT SCH ×4 (08:30→21:41)
[2020-03-13] MEDS: SIMETHICONE 80 MG TAB.CHEW GT SCH ×3 (08:31→17:41)
[2020-03-13] MEDS: SERTRALINE HCL 50 MG TABLET GT SCH (08:31)
[2020-03-13] MEDS: TRIAMCINOLONE ACET 0.1% OINT 15 GM TUBE TP SCH ×2 (08:31→21:42)
[2020-03-13] MEDS: Z GUARD REMEDY PASTE 57 GM TUBE TOP SCH ×2 (08:31→21:41)
[2020-03-13] MEDS: HYDROGEN PEROXIDE 3% 118 ML BOTTLE TP SCH ×2 (09:00→21:36)
[2020-03-13 20:00] VITALS: BP 132/83
[2020-03-13] MEDS: ASCORBIC ACID 500 MG TABLET GT SCH (21:41)
[2020-03-14] MEDS: GLUCERNA 1.2 1000ML LIQUID GT PRN (05:23)
[2020-03-14] MEDS: OMEPRAZOLE 20 MG CAPSULE.DR GT SCH (05:23)
[2020-03-14 08:11] VITALS: BP 119/84
[2020-03-14] MEDS: ACIDOPHILUS/BULGARICUS CHEW TAB GT SCH ×2 (08:50→21:26)
[2020-03-14] MEDS: BACLOFEN 20 MG TABLET GT SCH ×4 (08:50→21:26)
[2020-03-14] MEDS: SERTRALINE HCL 50 MG TABLET GT SCH (08:51)
[2020-03-14] MEDS: Z GUARD REMEDY PASTE 57 GM TUBE TOP SCH ×2 (08:51→21:27)
[2020-03-14] MEDS: TRIAMCINOLONE ACET 0.1% OINT 15 GM TUBE TP SCH ×2 (08:51→21:27)
[2020-03-14] MEDS: METOPROLOL TARTRATE 50 MG TABLET GT SCH ×2 (08:51→21:27)
[2020-03-14] MEDS: SIMETHICONE 80 MG TAB.CHEW GT SCH ×3 (08:51→16:04)
[2020-03-14] MEDS: HYDROGEN PEROXIDE 3% 118 ML BOTTLE TP SCH ×2 (10:30→21:23)
[2020-03-14 20:41] VITALS: BP 101/55
[2020-03-14] MEDS: ASCORBIC ACID 500 MG TABLET GT SCH (21:27)
[2020-03-15] MEDS: GLUCERNA 1.2 1000ML LIQUID GT PRN (02:56)
[2020-03-15] MEDS: OMEPRAZOLE 20 MG CAPSULE.DR GT SCH (05:42)
[2020-03-15] MEDS: MULTIVIT, IRON, MIN NO. 8, FA TABLET GT SCH (05:42)
[2020-03-15 07:51] VITALS: BP 121/70
[2020-03-15] MEDS: BACLOFEN 20 MG TABLET GT SCH ×4 (08:29→20:53)
[2020-03-15] MEDS: ACIDOPHILUS/BULGARICUS CHEW TAB GT SCH ×2 (08:29→20:53)
[2020-03-15] MEDS: METOPROLOL TARTRATE 50 MG TABLET GT SCH ×2 (08:30→20:53)
[2020-03-15] MEDS: KETOCONAZOLE 2% SHAMPOO 120 ML BOTTLE TP SCH (08:30)
[2020-03-15] MEDS: SIMETHICONE 80 MG TAB.CHEW GT SCH ×3 (08:30→17:09)
[2020-03-15] MEDS: TRIAMCINOLONE ACET 0.1% OINT 15 GM TUBE TP SCH (08:30)
[2020-03-15] MEDS: SERTRALINE HCL 50 MG TABLET GT SCH (08:30)
[2020-03-15] MEDS: Z GUARD REMEDY PASTE 57 GM TUBE TOP SCH ×2 (08:30→20:55)
[2020-03-15] MEDS: HYDROGEN PEROXIDE 3% 118 ML BOTTLE TP SCH ×2 (09:00→21:53)
[2020-03-15] MEDS: ASCORBIC ACID 500 MG TABLET GT SCH (20:55)
[2020-03-15 23:01] VITALS: BP 128/76
[2020-03-16] MEDS: GLUCERNA 1.2 1000ML LIQUID GT PRN (00:57)
[2020-03-16] MEDS: OMEPRAZOLE 20 MG CAPSULE.DR GT SCH (05:06)
[2020-03-16] MEDS: HYDROGEN PEROXIDE 3% 118 ML BOTTLE TP SCH ×2 (07:11→21:25)
[2020-03-16 07:47] VITALS: BP 131/81
[2020-03-16] MEDS: BACLOFEN 20 MG TABLET GT SCH ×4 (08:06→21:00)
[2020-03-16] MEDS: Z GUARD REMEDY PASTE 57 GM TUBE TOP SCH ×2 (08:06→21:00)
[2020-03-16] MEDS: ACIDOPHILUS/BULGARICUS CHEW TAB GT SCH ×2 (08:06→21:00)
[2020-03-16] MEDS: METOPROLOL TARTRATE 50 MG TABLET GT SCH ×2 (08:06→21:00)
[2020-03-16] MEDS: SERTRALINE HCL 50 MG TABLET GT SCH (08:06)
[2020-03-16] MEDS: SIMETHICONE 80 MG TAB.CHEW GT SCH ×3 (08:06→17:50)
--- NOTE | 2020-03-16 15:49 | NUR ---
INTERDISCIPLINARY PLAN OF CARE CONFERENCE was held today. Patient's family was not available participate in the meeting. Dr. Heaton and the Interdisciplinary team reviewed the current plan of care in detail. RN reported on the patient's medical condition. No major changes in condition were reported by RN or by the other disciplines. See RN IDT conference notes. See also all other disciplines IDT notes and physician's progress notes for additional details.
[2020-03-16 20:55] VITALS: BP 139/85
[2020-03-16] MEDS: ASCORBIC ACID 500 MG TABLET GT SCH (21:00)
[2020-03-17] MEDS: GLUCERNA 1.2 1000ML LIQUID GT PRN (04:39)
[2020-03-17] MEDS: MULTIVIT, IRON, MIN NO. 8, FA TABLET GT SCH (05:54)
[2020-03-17] MEDS: OMEPRAZOLE 20 MG CAPSULE.DR GT SCH (05:54)
[2020-03-17 07:47] VITALS: BP 107/68
[2020-03-17 07:52] VITALS: BP 134/90
[2020-03-17] MEDS: ACIDOPHILUS/BULGARICUS CHEW TAB GT SCH ×2 (08:57→21:00)
[2020-03-17] MEDS: BACLOFEN 20 MG TABLET GT SCH ×4 (08:57→21:00)
[2020-03-17] MEDS: SIMETHICONE 80 MG TAB.CHEW GT SCH ×3 (08:58→17:07)
[2020-03-17] MEDS: SERTRALINE HCL 50 MG TABLET GT SCH (08:58)
[2020-03-17] MEDS: METOPROLOL TARTRATE 50 MG TABLET GT SCH ×2 (08:58→21:00)
[2020-03-17] MEDS: Z GUARD REMEDY PASTE 57 GM TUBE TOP SCH ×2 (08:59→21:00)
[2020-03-17] MEDS: HYDROGEN PEROXIDE 3% 118 ML BOTTLE TP SCH ×2 (09:30→21:13)
[2020-03-17 20:06] VITALS: BP 119/77
[2020-03-17] MEDS: ASCORBIC ACID 500 MG TABLET GT SCH (21:00)
[2020-03-18] MEDS: OMEPRAZOLE 20 MG CAPSULE.DR GT SCH (06:00)
[2020-03-18 08:03] VITALS: BP 108/74
[2020-03-18] MEDS: SIMETHICONE 80 MG TAB.CHEW GT SCH ×3 (08:44→17:00)
[2020-03-18] MEDS: METOPROLOL TARTRATE 50 MG TABLET GT SCH ×2 (08:44→20:07)
[2020-03-18] MEDS: ACIDOPHILUS/BULGARICUS CHEW TAB GT SCH ×2 (08:44→20:06)
[2020-03-18] MEDS: BACLOFEN 20 MG TABLET GT SCH ×4 (08:44→20:06)
[2020-03-18] MEDS: SERTRALINE HCL 50 MG TABLET GT SCH (08:46)
[2020-03-18] MEDS: Z GUARD REMEDY PASTE 57 GM TUBE TOP SCH ×2 (08:47→20:07)
[2020-03-18] MEDS: KETOCONAZOLE 2% SHAMPOO 120 ML BOTTLE TP SCH (08:47)
[2020-03-18] MEDS: HYDROGEN PEROXIDE 3% 118 ML BOTTLE TP SCH ×2 (09:30→21:14)
[2020-03-18] MEDS: ASCORBIC ACID 500 MG TABLET GT SCH (20:07)
[2020-03-18 22:14] VITALS: BP 113/68
[2020-03-19] MEDS: GLUCERNA 1.2 1000ML LIQUID GT PRN (03:02)
[2020-03-19] MEDS: OMEPRAZOLE 20 MG CAPSULE.DR GT SCH (05:18)
[2020-03-19] MEDS: MULTIVIT, IRON, MIN NO. 8, FA TABLET GT SCH (06:30)
[2020-03-19] MEDS: HYDROGEN PEROXIDE 3% 118 ML BOTTLE TP SCH ×2 (07:13→21:01)
[2020-03-19] MEDS: SIMETHICONE 80 MG TAB.CHEW GT SCH ×3 (08:01→17:53)
[2020-03-19] MEDS: SERTRALINE HCL 50 MG TABLET GT SCH (08:01)
[2020-03-19] MEDS: METOPROLOL TARTRATE 50 MG TABLET GT SCH ×2 (08:01→21:25)
[2020-03-19] MEDS: BACLOFEN 20 MG TABLET GT SCH ×4 (08:01→21:24)
[2020-03-19] MEDS: ACIDOPHILUS/BULGARICUS CHEW TAB GT SCH ×2 (08:01→21:24)
[2020-03-19] MEDS: Z GUARD REMEDY PASTE 57 GM TUBE TOP SCH ×2 (08:02→21:25)
[2020-03-19 08:04] VITALS: BP 141/81
[2020-03-19] MEDS: ACETAMINOPHEN 650 MG/20 ML UDC- SA PATIENTS-PAIN ONLY GT PRN (11:43)
[2020-03-19] MEDS: ASCORBIC ACID 500 MG TABLET GT SCH (21:25)
[2020-03-19 22:13] VITALS: BP 125/85
[2020-03-20] MEDS: GLUCERNA 1.2 1000ML LIQUID GT PRN (01:03)
[2020-03-20] MEDS: OMEPRAZOLE 20 MG CAPSULE.DR GT SCH (05:29)
[2020-03-20 07:36] VITALS: BP 159/90
[2020-03-20] MEDS: METOPROLOL TARTRATE 50 MG TABLET GT SCH ×2 (08:09→21:42)
[2020-03-20] MEDS: Z GUARD REMEDY PASTE 57 GM TUBE TOP SCH ×2 (08:09→21:42)
[2020-03-20] MEDS: SERTRALINE HCL 50 MG TABLET GT SCH (08:09)
[2020-03-20] MEDS: BACLOFEN 20 MG TABLET GT SCH ×4 (08:09→21:41)
[2020-03-20] MEDS: SIMETHICONE 80 MG TAB.CHEW GT SCH ×3 (08:09→17:11)
[2020-03-20] MEDS: ACIDOPHILUS/BULGARICUS CHEW TAB GT SCH ×2 (08:09→21:41)
[2020-03-20 08:58] VITALS: BP 135/88
[2020-03-20] MEDS: HYDROGEN PEROXIDE 3% 118 ML BOTTLE TP SCH ×2 (09:05→21:34)
--- NOTE | 2020-03-20 09:24 | NUR ---
NEW ORDER WAS CARRIED OUT FROM GLENN NORAH P.APetar FOR CHRONIC PSORIASIS SKIN LESIONS ON BACK ,BUTTOCKS AND RT. FOOT AND NEW ORDER WAS CARRIED OUT FOR PERIANAL EXCORIATION .
[2020-03-20] MEDS: TRIAMCINOLONE ACET 0.1% OINT 60 GM TUBE TP SCH (10:34)
[2020-03-20] MEDS: ASCORBIC ACID 500 MG TABLET GT SCH (21:42)
[2020-03-20] MEDS: COD LIVER OIL/ZINC OXIDE OINT 113 GM TUBE TP SCH (21:42)
[2020-03-20] MEDS: ACETAMINOPHEN 650 MG/20 ML UDC- SA PATIENTS-PAIN ONLY GT PRN (21:43)
[2020-03-20 22:42] VITALS: BP 124/78
[2020-03-21] MEDS: GLUCERNA 1.2 1000ML LIQUID GT PRN (00:19)
[2020-03-21] MEDS: OMEPRAZOLE 20 MG CAPSULE.DR GT SCH (05:45)
[2020-03-21] MEDS: MULTIVIT, IRON, MIN NO. 8, FA TABLET GT SCH (05:45)
[2020-03-21 07:31] VITALS: BP 189/96
[2020-03-21] MEDS: HYDROGEN PEROXIDE 3% 118 ML BOTTLE TP SCH ×2 (08:01→21:10)
[2020-03-21] MEDS: ACIDOPHILUS/BULGARICUS CHEW TAB GT SCH ×2 (09:24→21:00)
[2020-03-21] MEDS: BACLOFEN 20 MG TABLET GT SCH ×4 (09:24→21:00)
[2020-03-21] MEDS: Z GUARD REMEDY PASTE 57 GM TUBE TOP SCH ×2 (09:25→21:00)
[2020-03-21] MEDS: SERTRALINE HCL 50 MG TABLET GT SCH (09:25)
[2020-03-21] MEDS: COD LIVER OIL/ZINC OXIDE OINT 113 GM TUBE TP SCH ×2 (09:25→21:00)
[2020-03-21] MEDS: SIMETHICONE 80 MG TAB.CHEW GT SCH ×3 (09:25→17:51)
[2020-03-21] MEDS: METOPROLOL TARTRATE 50 MG TABLET GT SCH ×2 (09:25→21:00)
[2020-03-21] MEDS: TRIAMCINOLONE ACET 0.1% OINT 60 GM TUBE TP SCH (09:25)
--- NOTE | 2020-03-21 15:34 | NUR ---
NEW ORDER WAS CARRIED OUT FROM DR. OGLESBY FOR COVID19 TEST PER [facility] REQUIREMENT AND PT'S BROTHER JESICA RESP. CONSTITUTION PARTY AWARE AND IN AGREEMENT.
[2020-03-21] MEDS: ASCORBIC ACID 500 MG TABLET GT SCH (21:00)
[2020-03-21 22:48] VITALS: BP 121/82
[2020-03-22] MEDS: GLUCERNA 1.2 1000ML LIQUID GT PRN (01:16)
[2020-03-22] MEDS: OMEPRAZOLE 20 MG CAPSULE.DR GT SCH (05:47)
[2020-03-22 08:00] VITALS: BP 124/76
[2020-03-22] MEDS: HYDROGEN PEROXIDE 3% 118 ML BOTTLE TP SCH ×2 (09:44→21:50)
[2020-03-22] MEDS: BACLOFEN 20 MG TABLET GT SCH ×4 (09:54→21:04)
[2020-03-22] MEDS: METOPROLOL TARTRATE 50 MG TABLET GT SCH ×2 (09:54→21:05)
[2020-03-22] MEDS: Z GUARD REMEDY PASTE 57 GM TUBE TOP SCH ×2 (09:54→21:05)
[2020-03-22] MEDS: SIMETHICONE 80 MG TAB.CHEW GT SCH ×3 (09:54→17:58)
[2020-03-22] MEDS: ACIDOPHILUS/BULGARICUS CHEW TAB GT SCH ×2 (09:54→21:04)
[2020-03-22] MEDS: SERTRALINE HCL 50 MG TABLET GT SCH (09:54)
[2020-03-22] MEDS: COD LIVER OIL/ZINC OXIDE OINT 113 GM TUBE TP SCH ×2 (09:55→21:05)
[2020-03-22] MEDS: KETOCONAZOLE 2% SHAMPOO 120 ML BOTTLE TP SCH (09:55)
[2020-03-22] MEDS: TRIAMCINOLONE ACET 0.1% OINT 60 GM TUBE TP SCH (09:55)
--- NOTE | 2020-03-22 14:03 | NUR ---
PT'S BROTHER AND RESP. GREEN PARTY AWARE OF NEGATIVE COVID19 TEST.
[2020-03-22] MEDS: ASCORBIC ACID 500 MG TABLET GT SCH (21:05)
[2020-03-22 22:32] VITALS: BP 128/74
[2020-03-23] MEDS: GLUCERNA 1.2 1000ML LIQUID GT PRN ×2 (01:15→23:22)
[2020-03-23] MEDS: OMEPRAZOLE 20 MG CAPSULE.DR GT SCH (05:32)
[2020-03-23] MEDS: MULTIVIT, IRON, MIN NO. 8, FA TABLET GT SCH (05:32)
[2020-03-23 07:40] VITALS: BP 158/95
[2020-03-23] MEDS: ACIDOPHILUS/BULGARICUS CHEW TAB GT SCH ×2 (09:06→21:08)
[2020-03-23] MEDS: BACLOFEN 20 MG TABLET GT SCH ×4 (09:06→21:09)
[2020-03-23] MEDS: TRIAMCINOLONE ACET 0.1% OINT 60 GM TUBE TP SCH (09:07)
[2020-03-23] MEDS: Z GUARD REMEDY PASTE 57 GM TUBE TOP SCH ×2 (09:07→21:11)
[2020-03-23] MEDS: SERTRALINE HCL 50 MG TABLET GT SCH (09:07)
[2020-03-23] MEDS: SIMETHICONE 80 MG TAB.CHEW GT SCH ×3 (09:07→17:53)
[2020-03-23] MEDS: METOPROLOL TARTRATE 50 MG TABLET GT SCH ×2 (09:07→21:10)
[2020-03-23] MEDS: COD LIVER OIL/ZINC OXIDE OINT 113 GM TUBE TP SCH ×2 (09:07→21:11)
[2020-03-23] MEDS: HYDROGEN PEROXIDE 3% 118 ML BOTTLE TP SCH ×2 (09:50→21:30)
[2020-03-23 20:15] VITALS: BP 105/39
[2020-03-23 20:20] VITALS: BP 123/82
[2020-03-23] MEDS: ASCORBIC ACID 500 MG TABLET GT SCH (21:10)
[2020-03-24] MEDS: OMEPRAZOLE 20 MG CAPSULE.DR GT SCH (06:07)
[2020-03-24 07:31] VITALS: BP 138/90
[2020-03-24] MEDS: HYDROGEN PEROXIDE 3% 118 ML BOTTLE TP SCH ×2 (08:14→20:37)
[2020-03-24] MEDS: SIMETHICONE 80 MG TAB.CHEW GT SCH ×3 (08:42→17:40)
[2020-03-24] MEDS: METOPROLOL TARTRATE 50 MG TABLET GT SCH ×2 (08:42→21:28)
[2020-03-24] MEDS: BACLOFEN 20 MG TABLET GT SCH ×4 (08:42→21:27)
[2020-03-24] MEDS: COD LIVER OIL/ZINC OXIDE OINT 113 GM TUBE TP SCH ×2 (08:42→21:30)
[2020-03-24] MEDS: TRIAMCINOLONE ACET 0.1% OINT 60 GM TUBE TP SCH (08:42)
[2020-03-24] MEDS: Z GUARD REMEDY PASTE 57 GM TUBE TOP SCH ×2 (08:42→21:30)
[2020-03-24] MEDS: ACIDOPHILUS/BULGARICUS CHEW TAB GT SCH ×2 (08:42→21:27)
[2020-03-24] MEDS: SERTRALINE HCL 50 MG TABLET GT SCH (08:42)
[2020-03-24] MEDS: GLUCERNA 1.2 1000ML LIQUID GT PRN (18:30)
[2020-03-24 20:00] VITALS: BP 133/85
[2020-03-24] MEDS: ASCORBIC ACID 500 MG TABLET GT SCH (21:28)
[2020-03-25] MEDS: MULTIVIT, IRON, MIN NO. 8, FA TABLET GT SCH (05:32)
[2020-03-25] MEDS: OMEPRAZOLE 20 MG CAPSULE.DR GT SCH (05:32)
[2020-03-25 07:36] VITALS: BP 127/64
[2020-03-25] MEDS: BACLOFEN 20 MG TABLET GT SCH ×4 (08:43→21:48)
[2020-03-25] MEDS: ACIDOPHILUS/BULGARICUS CHEW TAB GT SCH ×2 (08:43→21:48)
[2020-03-25] MEDS: Z GUARD REMEDY PASTE 57 GM TUBE TOP SCH ×2 (08:44→21:48)
[2020-03-25] MEDS: COD LIVER OIL/ZINC OXIDE OINT 113 GM TUBE TP SCH ×2 (08:44→21:49)
[2020-03-25] MEDS: SIMETHICONE 80 MG TAB.CHEW GT SCH ×3 (08:44→16:18)
[2020-03-25] MEDS: METOPROLOL TARTRATE 50 MG TABLET GT SCH ×2 (08:44→21:48)
[2020-03-25] MEDS: SERTRALINE HCL 50 MG TABLET GT SCH (08:44)
[2020-03-25] MEDS: TRIAMCINOLONE ACET 0.1% OINT 60 GM TUBE TP SCH (08:45)
[2020-03-25] MEDS: KETOCONAZOLE 2% SHAMPOO 120 ML BOTTLE TP SCH (08:45)
[2020-03-25] MEDS: HYDROGEN PEROXIDE 3% 118 ML BOTTLE TP SCH ×2 (09:00→21:25)
[2020-03-25] MEDS: GLUCERNA 1.2 1000ML LIQUID GT PRN (16:17)
[2020-03-25 20:00] VITALS: BP 106/67
[2020-03-25] MEDS: ASCORBIC ACID 500 MG TABLET GT SCH (21:48)
[2020-03-26] MEDS: OMEPRAZOLE 20 MG CAPSULE.DR GT SCH (05:56)
[2020-03-26 07:44] VITALS: BP 121/93
[2020-03-26] MEDS: METOPROLOL TARTRATE 50 MG TABLET GT SCH ×2 (08:46→20:25)
[2020-03-26] MEDS: SERTRALINE HCL 50 MG TABLET GT SCH (08:46)
[2020-03-26] MEDS: BACLOFEN 20 MG TABLET GT SCH ×4 (08:46→20:25)
[2020-03-26] MEDS: COD LIVER OIL/ZINC OXIDE OINT 113 GM TUBE TP SCH ×2 (08:46→20:25)
[2020-03-26] MEDS: TRIAMCINOLONE ACET 0.1% OINT 60 GM TUBE TP SCH (08:46)
[2020-03-26] MEDS: ACIDOPHILUS/BULGARICUS CHEW TAB GT SCH ×2 (08:46→20:25)
[2020-03-26] MEDS: Z GUARD REMEDY PASTE 57 GM TUBE TOP SCH ×2 (08:46→20:25)
[2020-03-26] MEDS: SIMETHICONE 80 MG TAB.CHEW GT SCH ×3 (08:46→16:21)
[2020-03-26] MEDS: HYDROGEN PEROXIDE 3% 118 ML BOTTLE TP SCH ×2 (09:00→21:00)
[2020-03-26] MEDS: GLUCERNA 1.2 1000ML LIQUID GT PRN (16:28)
[2020-03-26] MEDS: ASCORBIC ACID 500 MG TABLET GT SCH (20:25)
[2020-03-26 20:42] VITALS: BP 157/105
[2020-03-27] MEDS: OMEPRAZOLE 20 MG CAPSULE.DR GT SCH (05:49)
[2020-03-27] MEDS: MULTIVIT, IRON, MIN NO. 8, FA TABLET GT SCH (05:49)
[2020-03-27 07:48] VITALS: BP 136/78
[2020-03-27] MEDS: BACLOFEN 20 MG TABLET GT SCH ×4 (08:27→20:22)
[2020-03-27] MEDS: SIMETHICONE 80 MG TAB.CHEW GT SCH ×3 (08:27→16:47)
[2020-03-27] MEDS: SERTRALINE HCL 50 MG TABLET GT SCH (08:27)
[2020-03-27] MEDS: ACIDOPHILUS/BULGARICUS CHEW TAB GT SCH ×2 (08:27→20:22)
[2020-03-27] MEDS: METOPROLOL TARTRATE 50 MG TABLET GT SCH ×2 (08:27→20:22)
[2020-03-27] MEDS: Z GUARD REMEDY PASTE 57 GM TUBE TOP SCH ×2 (08:28→20:22)
[2020-03-27] MEDS: TRIAMCINOLONE ACET 0.1% OINT 60 GM TUBE TP SCH (08:28)
[2020-03-27] MEDS: COD LIVER OIL/ZINC OXIDE OINT 113 GM TUBE TP SCH ×2 (08:28→20:22)
[2020-03-27] MEDS: HYDROGEN PEROXIDE 3% 118 ML BOTTLE TP SCH ×2 (09:15→21:33)
[2020-03-27] MEDS: GLUCERNA 1.2 1000ML LIQUID GT PRN (16:58)
[2020-03-27] MEDS: ASCORBIC ACID 500 MG TABLET GT SCH (20:22)
[2020-03-27 20:59] VITALS: BP 127/62
[2020-03-28] MEDS: OMEPRAZOLE 20 MG CAPSULE.DR GT SCH (05:07)
[2020-03-28 08:00] VITALS: BP 136/85
[2020-03-28] MEDS: ACIDOPHILUS/BULGARICUS CHEW TAB GT SCH ×2 (09:14→20:42)
[2020-03-28] MEDS: BACLOFEN 20 MG TABLET GT SCH ×4 (09:15→20:42)
[2020-03-28] MEDS: METOPROLOL TARTRATE 50 MG TABLET GT SCH ×2 (09:15→20:42)
[2020-03-28] MEDS: SIMETHICONE 80 MG TAB.CHEW GT SCH ×3 (09:15→17:52)
[2020-03-28] MEDS: SERTRALINE HCL 50 MG TABLET GT SCH (09:16)
[2020-03-28] MEDS: Z GUARD REMEDY PASTE 57 GM TUBE TOP SCH ×2 (09:16→20:42)
[2020-03-28] MEDS: COD LIVER OIL/ZINC OXIDE OINT 113 GM TUBE TP SCH ×2 (09:16→20:42)
[2020-03-28] MEDS: TRIAMCINOLONE ACET 0.1% OINT 60 GM TUBE TP SCH (09:16)
[2020-03-28] MEDS: HYDROGEN PEROXIDE 3% 118 ML BOTTLE TP SCH ×2 (10:10→21:00)
[2020-03-28 18:50] VITALS: BP 128/96
[2020-03-28 19:48] VITALS: BP 128/96
--- NOTE | 2020-03-28 19:56 | NUR ---
Covid 19 test done today.per [facility] requirement.Responsible alliance party notified.
[2020-03-28] MEDS: ASCORBIC ACID 500 MG TABLET GT SCH (20:42)
[2020-03-29] MEDS: MULTIVIT, IRON, MIN NO. 8, FA TABLET GT SCH (05:47)
[2020-03-29] MEDS: OMEPRAZOLE 20 MG CAPSULE.DR GT SCH (05:47)
[2020-03-29] MEDS: HYDROGEN PEROXIDE 3% 118 ML BOTTLE TP SCH ×2 (07:10→21:10)
[2020-03-29 07:45] VITALS: BP 134/79
[2020-03-29] MEDS: ACIDOPHILUS/BULGARICUS CHEW TAB GT SCH ×2 (08:55→20:17)
[2020-03-29] MEDS: METOPROLOL TARTRATE 50 MG TABLET GT SCH ×2 (09:00→20:18)
[2020-03-29] MEDS: SERTRALINE HCL 50 MG TABLET GT SCH (09:00)
[2020-03-29] MEDS: TRIAMCINOLONE ACET 0.1% OINT 60 GM TUBE TP SCH (09:00)
[2020-03-29] MEDS: SIMETHICONE 80 MG TAB.CHEW GT SCH ×3 (09:00→16:18)
[2020-03-29] MEDS: Z GUARD REMEDY PASTE 57 GM TUBE TOP SCH ×2 (09:00→20:18)
[2020-03-29] MEDS: KETOCONAZOLE 2% SHAMPOO 120 ML BOTTLE TP SCH (09:00)
[2020-03-29] MEDS: BACLOFEN 20 MG TABLET GT SCH ×4 (09:00→20:17)
[2020-03-29] MEDS: COD LIVER OIL/ZINC OXIDE OINT 113 GM TUBE TP SCH ×2 (09:00→20:18)
[2020-03-29] MEDS: GLUCERNA 1.2 1000ML LIQUID GT PRN (11:18)
--- NOTE | 2020-03-29 12:00 | NUR ---
SEEN BY GLENN Bolaños AND WITH NNO.
[2020-03-29 20:16] VITALS: BP 123/74
[2020-03-29] MEDS: ASCORBIC ACID 500 MG TABLET GT SCH (20:18)
[2020-03-30] MEDS: OMEPRAZOLE 20 MG CAPSULE.DR GT SCH (05:00)
[2020-03-30 07:38] VITALS: BP 128/68
[2020-03-30] MEDS: BACLOFEN 20 MG TABLET GT SCH ×4 (08:54→21:03)
[2020-03-30] MEDS: ACIDOPHILUS/BULGARICUS CHEW TAB GT SCH ×2 (08:54→21:03)
[2020-03-30] MEDS: METOPROLOL TARTRATE 50 MG TABLET GT SCH ×2 (08:54→21:03)
[2020-03-30] MEDS: Z GUARD REMEDY PASTE 57 GM TUBE TOP SCH ×2 (08:55→21:04)
[2020-03-30] MEDS: COD LIVER OIL/ZINC OXIDE OINT 113 GM TUBE TP SCH ×2 (08:55→21:04)
[2020-03-30] MEDS: SERTRALINE HCL 50 MG TABLET GT SCH (08:55)
[2020-03-30] MEDS: SIMETHICONE 80 MG TAB.CHEW GT SCH ×3 (08:55→16:31)
[2020-03-30] MEDS: HYDROGEN PEROXIDE 3% 118 ML BOTTLE TP SCH ×2 (09:30→21:00)
[2020-03-30] MEDS: GLUCERNA 1.2 1000ML LIQUID GT PRN (11:37)
[2020-03-30 20:00] VITALS: BP 108/73
[2020-03-30 20:29] VITALS: BP 126/68
[2020-03-30] MEDS: ASCORBIC ACID 500 MG TABLET GT SCH (21:03)
[2020-03-31] MEDS: MULTIVIT, IRON, MIN NO. 8, FA TABLET GT SCH (06:24)
[2020-03-31] MEDS: OMEPRAZOLE 20 MG CAPSULE.DR GT SCH (06:24)
[2020-03-31] MEDS: GLUCERNA 1.2 1000ML LIQUID GT PRN (06:34)
[2020-03-31 07:47] VITALS: BP 124/69
[2020-03-31] MEDS: SIMETHICONE 80 MG TAB.CHEW GT SCH ×3 (09:38→17:06)
[2020-03-31] MEDS: COD LIVER OIL/ZINC OXIDE OINT 113 GM TUBE TP SCH ×2 (09:38→21:20)
[2020-03-31] MEDS: METOPROLOL TARTRATE 50 MG TABLET GT SCH ×2 (09:38→21:20)
[2020-03-31] MEDS: SERTRALINE HCL 50 MG TABLET GT SCH (09:38)
[2020-03-31] MEDS: ACIDOPHILUS/BULGARICUS CHEW TAB GT SCH ×2 (09:38→21:18)
[2020-03-31] MEDS: BACLOFEN 20 MG TABLET GT SCH ×4 (09:38→21:19)
[2020-03-31] MEDS: Z GUARD REMEDY PASTE 57 GM TUBE TOP SCH ×2 (09:38→21:20)
[2020-03-31] MEDS: HYDROGEN PEROXIDE 3% 118 ML BOTTLE TP SCH ×2 (10:20→21:00)
[2020-03-31 20:44] VITALS: BP 135/80
[2020-03-31] MEDS: ASCORBIC ACID 500 MG TABLET GT SCH (21:20)
[2020-04-01] MEDS: GLUCERNA 1.2 1000ML LIQUID GT PRN (04:16)
[2020-04-01] MEDS: OMEPRAZOLE 20 MG CAPSULE.DR GT SCH (05:57)
[2020-04-01 08:04] VITALS: BP 123/74
[2020-04-01] MEDS: HYDROGEN PEROXIDE 3% 118 ML BOTTLE TP SCH ×2 (09:00→21:00)
[2020-04-01] MEDS: KETOCONAZOLE 2% SHAMPOO 120 ML BOTTLE TP SCH (09:35)
[2020-04-01] MEDS: COD LIVER OIL/ZINC OXIDE OINT 113 GM TUBE TP SCH ×2 (09:35→21:32)
[2020-04-01] MEDS: SIMETHICONE 80 MG TAB.CHEW GT SCH ×3 (09:35→17:17)
[2020-04-01] MEDS: SERTRALINE HCL 50 MG TABLET GT SCH (09:35)
[2020-04-01] MEDS: BACLOFEN 20 MG TABLET GT SCH ×4 (09:35→21:31)
[2020-04-01] MEDS: METOPROLOL TARTRATE 50 MG TABLET GT SCH ×2 (09:35→21:31)
[2020-04-01] MEDS: Z GUARD REMEDY PASTE 57 GM TUBE TOP SCH ×2 (09:35→21:32)
[2020-04-01] MEDS: ACIDOPHILUS/BULGARICUS CHEW TAB GT SCH ×2 (09:35→21:31)
[2020-04-01] MEDS: ASCORBIC ACID 500 MG TABLET GT SCH (21:31)
[2020-04-01 22:47] VITALS: BP 138/77
[2020-04-02] MEDS: GLUCERNA 1.2 1000ML LIQUID GT PRN (04:00)
[2020-04-02] MEDS: MULTIVIT, IRON, MIN NO. 8, FA TABLET GT SCH (05:58)
[2020-04-02] MEDS: OMEPRAZOLE 20 MG CAPSULE.DR GT SCH (05:58)
[2020-04-02 07:32] VITALS: BP 123/78
[2020-04-02] MEDS: HYDROGEN PEROXIDE 3% 118 ML BOTTLE TP SCH ×2 (08:44→21:21)
[2020-04-02] MEDS: ACIDOPHILUS/BULGARICUS CHEW TAB GT SCH ×2 (09:03→20:42)
[2020-04-02] MEDS: BACLOFEN 20 MG TABLET GT SCH ×4 (09:04→20:42)
[2020-04-02] MEDS: COD LIVER OIL/ZINC OXIDE OINT 113 GM TUBE TP SCH ×2 (09:04→20:43)
[2020-04-02] MEDS: SERTRALINE HCL 50 MG TABLET GT SCH (09:04)
[2020-04-02] MEDS: SIMETHICONE 80 MG TAB.CHEW GT SCH ×3 (09:04→17:20)
[2020-04-02] MEDS: METOPROLOL TARTRATE 50 MG TABLET GT SCH ×2 (09:04→20:42)
[2020-04-02] MEDS: Z GUARD REMEDY PASTE 57 GM TUBE TOP SCH ×2 (09:04→20:42)
--- NOTE | 2020-04-02 16:17 | NUR ---
SEEN BY DR. IBRAHIM AND WITH NNO.
[2020-04-02 19:45] VITALS: BP 137/88
[2020-04-02] MEDS: ASCORBIC ACID 500 MG TABLET GT SCH (20:42)
[2020-04-03] MEDS: OMEPRAZOLE 20 MG CAPSULE.DR GT SCH (05:16)
[2020-04-03 07:29] VITALS: BP 121/65
[2020-04-03] MEDS: HYDROGEN PEROXIDE 3% 118 ML BOTTLE TP SCH ×2 (08:05→21:41)
[2020-04-03] MEDS: Z GUARD REMEDY PASTE 57 GM TUBE TOP SCH ×2 (09:07→20:53)
[2020-04-03] MEDS: COD LIVER OIL/ZINC OXIDE OINT 113 GM TUBE TP SCH (09:07)
[2020-04-03] MEDS: METOPROLOL TARTRATE 50 MG TABLET GT SCH ×2 (09:07→20:53)
[2020-04-03] MEDS: SIMETHICONE 80 MG TAB.CHEW GT SCH ×3 (09:07→17:37)
[2020-04-03] MEDS: SERTRALINE HCL 50 MG TABLET GT SCH (09:07)
[2020-04-03] MEDS: BACLOFEN 20 MG TABLET GT SCH ×4 (09:07→20:53)
[2020-04-03] MEDS: ACIDOPHILUS/BULGARICUS CHEW TAB GT SCH ×2 (09:07→20:53)
[2020-04-03] MEDS: ASCORBIC ACID 500 MG TABLET GT SCH (20:53)
[2020-04-03 23:11] VITALS: BP 125/77
[2020-04-04] MEDS: GLUCERNA 1.2 1000ML LIQUID GT PRN (02:00)
[2020-04-04] MEDS: MULTIVIT, IRON, MIN NO. 8, FA TABLET GT SCH (06:15)
[2020-04-04] MEDS: OMEPRAZOLE 20 MG CAPSULE.DR GT SCH (06:15)
[2020-04-04 07:37] VITALS: BP 140/80
[2020-04-04] MEDS: SIMETHICONE 80 MG TAB.CHEW GT SCH ×3 (08:28→17:11)
[2020-04-04] MEDS: BACLOFEN 20 MG TABLET GT SCH ×4 (08:28→20:56)
[2020-04-04] MEDS: ACIDOPHILUS/BULGARICUS CHEW TAB GT SCH ×2 (08:28→20:56)
[2020-04-04] MEDS: SERTRALINE HCL 50 MG TABLET GT SCH (08:28)
[2020-04-04] MEDS: Z GUARD REMEDY PASTE 57 GM TUBE TOP SCH ×2 (08:28→20:57)
[2020-04-04] MEDS: METOPROLOL TARTRATE 50 MG TABLET GT SCH ×2 (08:28→20:56)
[2020-04-04] MEDS: HYDROGEN PEROXIDE 3% 118 ML BOTTLE TP SCH ×2 (09:05→21:13)
[2020-04-04] MEDS: ASCORBIC ACID 500 MG TABLET GT SCH (20:56)
[2020-04-04 22:00] VITALS: BP 136/87
[2020-04-05] MEDS: GLUCERNA 1.2 1000ML LIQUID GT PRN (00:19)
[2020-04-05] MEDS: OMEPRAZOLE 20 MG CAPSULE.DR GT SCH (05:10)
--- NOTE | 2020-04-05 07:16 | NUR ---
Will test patient for COVID-19 today.
[2020-04-05] MEDS: HYDROGEN PEROXIDE 3% 118 ML BOTTLE TP SCH ×2 (07:19→21:50)
[2020-04-05 07:35] VITALS: BP 120/63
[2020-04-05] MEDS: Z GUARD REMEDY PASTE 57 GM TUBE TOP SCH ×2 (09:32→20:38)
[2020-04-05] MEDS: SIMETHICONE 80 MG TAB.CHEW GT SCH ×3 (09:32→17:44)
[2020-04-05] MEDS: ACIDOPHILUS/BULGARICUS CHEW TAB GT SCH ×2 (09:32→20:38)
[2020-04-05] MEDS: METOPROLOL TARTRATE 50 MG TABLET GT SCH ×2 (09:32→20:38)
[2020-04-05] MEDS: BACLOFEN 20 MG TABLET GT SCH ×4 (09:32→20:38)
[2020-04-05] MEDS: KETOCONAZOLE 2% SHAMPOO 120 ML BOTTLE TP SCH (09:32)
[2020-04-05] MEDS: SERTRALINE HCL 50 MG TABLET GT SCH (09:32)
--- NOTE | 2020-04-05 12:30 | NUR ---
SEEN BY GLENN Bolaños AND WITH NNO.
--- NOTE | 2020-04-05 15:38 | NUR ---
PT. SEEN NAD EXAMINED BY DR. IBRAHIM AND WITH NNO.
--- NOTE | 2020-04-05 17:37 | NUR ---
NO COVID 19 TEST REQUIRED BY [facility] TODAY AND PT'S BROTHER AWARE.
[2020-04-05 20:00] VITALS: BP 102/58
[2020-04-05] MEDS: ASCORBIC ACID 500 MG TABLET GT SCH (20:38)
[2020-04-06] MEDS: GLUCERNA 1.2 1000ML LIQUID GT PRN ×2 (01:33→23:26)
[2020-04-06] MEDS: MULTIVIT, IRON, MIN NO. 8, FA TABLET GT SCH (05:54)
[2020-04-06] MEDS: OMEPRAZOLE 20 MG CAPSULE.DR GT SCH (05:54)
[2020-04-06 07:56] VITALS: BP 126/80
[2020-04-06] MEDS: ACIDOPHILUS/BULGARICUS CHEW TAB GT SCH ×2 (08:26→21:09)
[2020-04-06] MEDS: BACLOFEN 20 MG TABLET GT SCH ×4 (08:26→21:09)
[2020-04-06] MEDS: METOPROLOL TARTRATE 50 MG TABLET GT SCH ×2 (08:27→21:10)
[2020-04-06] MEDS: Z GUARD REMEDY PASTE 57 GM TUBE TOP SCH ×2 (08:27→21:10)
[2020-04-06] MEDS: SERTRALINE HCL 50 MG TABLET GT SCH (08:27)
[2020-04-06] MEDS: SIMETHICONE 80 MG TAB.CHEW GT SCH ×3 (08:27→17:23)
[2020-04-06] MEDS: TRIAMCINOLONE ACET 0.1% OINT 15 GM TUBE TP SCH (08:28)
[2020-04-06] MEDS: HYDROGEN PEROXIDE 3% 118 ML BOTTLE TP SCH ×2 (09:26→21:08)
--- NOTE | 2020-04-06 14:12 | NUR ---
INTERDISCIPLINARY PLAN OF CARE CONFERENCE was held today. Patient's brother and mother were not available to participate in the meeting. Dr. Heaton and the Interdisciplinary team reviewed the current plan of care in detail. RN reported on the patient's medical condition. No major changes in patient's condition were reported by RN or by the other disciplines. See RN IDT conference notes. See also all other disciplines IDT notes and physician's progress notes for additional details.
[2020-04-06 20:00] VITALS: BP 136/77
[2020-04-06] MEDS: ASCORBIC ACID 500 MG TABLET GT SCH (21:10)
[2020-04-07] MEDS: OMEPRAZOLE 20 MG CAPSULE.DR GT SCH (05:16)
[2020-04-07 07:33] VITALS: BP 137/84
[2020-04-07] MEDS: ACIDOPHILUS/BULGARICUS CHEW TAB GT SCH ×2 (08:40→20:48)
[2020-04-07] MEDS: BACLOFEN 20 MG TABLET GT SCH ×4 (08:41→20:48)
[2020-04-07] MEDS: SIMETHICONE 80 MG TAB.CHEW GT SCH ×3 (08:42→16:56)
[2020-04-07] MEDS: Z GUARD REMEDY PASTE 57 GM TUBE TOP SCH ×2 (08:42→20:49)
[2020-04-07] MEDS: METOPROLOL TARTRATE 50 MG TABLET GT SCH ×2 (08:42→20:49)
[2020-04-07] MEDS: SERTRALINE HCL 50 MG TABLET GT SCH (08:42)
[2020-04-07] MEDS: HYDROGEN PEROXIDE 3% 118 ML BOTTLE TP SCH ×2 (09:00→20:52)
[2020-04-07] MEDS: TRIAMCINOLONE ACET 0.1% OINT 15 GM TUBE TP SCH (09:00)
[2020-04-07 20:00] VITALS: BP 118/73
[2020-04-07] MEDS: ASCORBIC ACID 500 MG TABLET GT SCH (20:49)
[2020-04-08] MEDS: OMEPRAZOLE 20 MG CAPSULE.DR GT SCH (05:09)
[2020-04-08] MEDS: MULTIVIT, IRON, MIN NO. 8, FA TABLET GT SCH (05:35)
[2020-04-08 07:23] VITALS: BP 127/81
[2020-04-08] MEDS: ACIDOPHILUS/BULGARICUS CHEW TAB GT SCH ×2 (08:41→21:10)
[2020-04-08] MEDS: BACLOFEN 20 MG TABLET GT SCH ×4 (08:42→21:10)
[2020-04-08] MEDS: METOPROLOL TARTRATE 50 MG TABLET GT SCH ×2 (08:43→21:10)
[2020-04-08] MEDS: SIMETHICONE 80 MG TAB.CHEW GT SCH ×3 (08:43→16:53)
[2020-04-08] MEDS: SERTRALINE HCL 50 MG TABLET GT SCH (08:43)
[2020-04-08] MEDS: Z GUARD REMEDY PASTE 57 GM TUBE TOP SCH ×2 (08:44→21:10)
[2020-04-08] MEDS: TRIAMCINOLONE ACET 0.1% OINT 15 GM TUBE TP SCH (08:44)
[2020-04-08] MEDS: KETOCONAZOLE 2% SHAMPOO 120 ML BOTTLE TP SCH (08:44)
[2020-04-08] MEDS: HYDROGEN PEROXIDE 3% 118 ML BOTTLE TP SCH ×2 (09:23→21:54)
[2020-04-08] MEDS: GLUCERNA 1.2 1000ML LIQUID GT PRN (18:14)
[2020-04-08 20:00] VITALS: BP 123/84
[2020-04-08] MEDS: ASCORBIC ACID 500 MG TABLET GT SCH (21:10)
[2020-04-08] MEDS: ACETAMINOPHEN 650 MG/20 ML UDC- SA PATIENTS-PAIN ONLY GT PRN (21:11)
[2020-04-09] MEDS: OMEPRAZOLE 20 MG CAPSULE.DR GT SCH (05:28)
[2020-04-09 07:43] VITALS: BP 119/64
[2020-04-09] MEDS: HYDROGEN PEROXIDE 3% 118 ML BOTTLE TP SCH ×2 (09:05→21:00)
[2020-04-09] MEDS: ACIDOPHILUS/BULGARICUS CHEW TAB GT SCH ×2 (09:43→20:54)
[2020-04-09] MEDS: BACLOFEN 20 MG TABLET GT SCH ×4 (09:43→20:54)
[2020-04-09] MEDS: SIMETHICONE 80 MG TAB.CHEW GT SCH ×3 (09:44→17:27)
[2020-04-09] MEDS: METOPROLOL TARTRATE 50 MG TABLET GT SCH ×2 (09:44→20:54)
[2020-04-09] MEDS: SERTRALINE HCL 50 MG TABLET GT SCH (09:44)
[2020-04-09] MEDS: TRIAMCINOLONE ACET 0.1% OINT 15 GM TUBE TP SCH (09:47)
[2020-04-09] MEDS: Z GUARD REMEDY PASTE 57 GM TUBE TOP SCH ×2 (09:47→20:54)
[2020-04-09] MEDS: GLUCERNA 1.2 1000ML LIQUID GT PRN (15:00)
[2020-04-09 20:00] VITALS: BP 121/81
[2020-04-09] MEDS: ASCORBIC ACID 500 MG TABLET GT SCH (20:54)
[2020-04-10] MEDS: OMEPRAZOLE 20 MG CAPSULE.DR GT SCH (05:53)
[2020-04-10] MEDS: MULTIVIT, IRON, MIN NO. 8, FA TABLET GT SCH (05:53)
[2020-04-10 07:53] VITALS: BP 140/72
[2020-04-10] MEDS: Z GUARD REMEDY PASTE 57 GM TUBE TOP SCH ×2 (09:00→21:04)
[2020-04-10] MEDS: SIMETHICONE 80 MG TAB.CHEW GT SCH ×3 (09:00→17:25)
[2020-04-10] MEDS: TRIAMCINOLONE ACET 0.1% OINT 15 GM TUBE TP SCH (09:00)
[2020-04-10] MEDS: BACLOFEN 20 MG TABLET GT SCH ×4 (09:00→21:03)
[2020-04-10] MEDS: METOPROLOL TARTRATE 50 MG TABLET GT SCH ×2 (09:00→21:03)
[2020-04-10] MEDS: SERTRALINE HCL 50 MG TABLET GT SCH (09:00)
[2020-04-10] MEDS: ACIDOPHILUS/BULGARICUS CHEW TAB GT SCH ×2 (09:00→21:02)
[2020-04-10] MEDS: HYDROGEN PEROXIDE 3% 118 ML BOTTLE TP SCH ×2 (09:06→21:22)
[2020-04-10 20:18] VITALS: BP 128/72
[2020-04-10] MEDS: ASCORBIC ACID 500 MG TABLET GT SCH (21:03)
[2020-04-11] MEDS: OMEPRAZOLE 20 MG CAPSULE.DR GT SCH (06:11)
[2020-04-11 08:04] VITALS: BP 129/88
[2020-04-11] MEDS: ACIDOPHILUS/BULGARICUS CHEW TAB GT SCH ×2 (08:52→21:43)
[2020-04-11] MEDS: SIMETHICONE 80 MG TAB.CHEW GT SCH ×3 (08:53→17:25)
[2020-04-11] MEDS: SERTRALINE HCL 50 MG TABLET GT SCH (08:53)
[2020-04-11] MEDS: Z GUARD REMEDY PASTE 57 GM TUBE TOP SCH ×2 (08:53→21:44)
[2020-04-11] MEDS: BACLOFEN 20 MG TABLET GT SCH ×4 (08:53→21:43)
[2020-04-11] MEDS: METOPROLOL TARTRATE 50 MG TABLET GT SCH ×2 (08:53→21:44)
[2020-04-11] MEDS: TRIAMCINOLONE ACET 0.1% OINT 15 GM TUBE TP SCH (08:53)
[2020-04-11] MEDS: HYDROGEN PEROXIDE 3% 118 ML BOTTLE TP SCH ×2 (09:22→21:44)
[2020-04-11] MEDS: GLUCERNA 1.2 1000ML LIQUID GT PRN (09:40)
[2020-04-11 20:29] VITALS: BP 136/80
[2020-04-11] MEDS: ASCORBIC ACID 500 MG TABLET GT SCH (21:44)
[2020-04-12] MEDS: MULTIVIT, IRON, MIN NO. 8, FA TABLET GT SCH (05:57)
[2020-04-12] MEDS: OMEPRAZOLE 20 MG CAPSULE.DR GT SCH (05:57)
[2020-04-12] MEDS: GLUCERNA 1.2 1000ML LIQUID GT PRN (07:08)
[2020-04-12 07:50] VITALS: BP 138/75
[2020-04-12] MEDS: HYDROGEN PEROXIDE 3% 118 ML BOTTLE TP SCH ×3 (08:22→19:07)
[2020-04-12] MEDS: BACLOFEN 20 MG TABLET GT SCH ×4 (08:52→21:45)
[2020-04-12] MEDS: ACIDOPHILUS/BULGARICUS CHEW TAB GT SCH ×2 (08:52→21:45)
[2020-04-12] MEDS: SERTRALINE HCL 50 MG TABLET GT SCH (08:53)
[2020-04-12] MEDS: SIMETHICONE 80 MG TAB.CHEW GT SCH ×3 (08:53→17:29)
[2020-04-12] MEDS: KETOCONAZOLE 2% SHAMPOO 120 ML BOTTLE TP SCH (08:53)
[2020-04-12] MEDS: Z GUARD REMEDY PASTE 57 GM TUBE TOP SCH ×2 (08:53→21:45)
[2020-04-12] MEDS: TRIAMCINOLONE ACET 0.1% OINT 15 GM TUBE TP SCH (08:53)
[2020-04-12] MEDS: METOPROLOL TARTRATE 50 MG TABLET GT SCH ×2 (08:53→21:45)
[2020-04-12 20:18] VITALS: BP 134/73
[2020-04-12] MEDS: ASCORBIC ACID 500 MG TABLET GT SCH (21:45)
[2020-04-13] MEDS: GLUCERNA 1.2 1000ML LIQUID GT PRN (02:18)
[2020-04-13] MEDS: OMEPRAZOLE 20 MG CAPSULE.DR GT SCH (06:13)
[2020-04-13 07:42] VITALS: BP 127/70
[2020-04-13] MEDS: Z GUARD REMEDY PASTE 57 GM TUBE TOP SCH ×2 (09:43→21:08)
[2020-04-13] MEDS: METOPROLOL TARTRATE 50 MG TABLET GT SCH ×2 (09:43→21:08)
[2020-04-13] MEDS: SERTRALINE HCL 50 MG TABLET GT SCH (09:43)
[2020-04-13] MEDS: SIMETHICONE 80 MG TAB.CHEW GT SCH ×3 (09:43→17:02)
[2020-04-13] MEDS: BACLOFEN 20 MG TABLET GT SCH ×4 (09:43→21:07)
[2020-04-13] MEDS: TRIAMCINOLONE ACET 0.1% OINT 15 GM TUBE TP SCH (09:43)
[2020-04-13] MEDS: ACIDOPHILUS/BULGARICUS CHEW TAB GT SCH ×2 (09:43→21:07)
[2020-04-13 20:24] VITALS: BP 119/69
[2020-04-13] MEDS: HYDROGEN PEROXIDE 3% 118 ML BOTTLE TP SCH (20:36)
[2020-04-13] MEDS: ASCORBIC ACID 500 MG TABLET GT SCH (21:08)
[2020-04-14] MEDS: GLUCERNA 1.2 1000ML LIQUID GT PRN (00:46)
[2020-04-14] MEDS: MULTIVIT, IRON, MIN NO. 8, FA TABLET GT SCH (05:34)
[2020-04-14] MEDS: OMEPRAZOLE 20 MG CAPSULE.DR GT SCH (05:34)
[2020-04-14 07:46] VITALS: BP 124/67
[2020-04-14] MEDS: ACIDOPHILUS/BULGARICUS CHEW TAB GT SCH ×2 (08:28→21:04)
[2020-04-14] MEDS: BACLOFEN 20 MG TABLET GT SCH ×4 (08:28→21:04)
[2020-04-14] MEDS: METOPROLOL TARTRATE 50 MG TABLET GT SCH ×2 (08:29→21:04)
[2020-04-14] MEDS: SERTRALINE HCL 50 MG TABLET GT SCH (08:30)
[2020-04-14] MEDS: SIMETHICONE 80 MG TAB.CHEW GT SCH ×3 (08:30→17:27)
[2020-04-14] MEDS: Z GUARD REMEDY PASTE 57 GM TUBE TOP SCH ×2 (08:32→21:04)
[2020-04-14] MEDS: TRIAMCINOLONE ACET 0.1% OINT 15 GM TUBE TP SCH (09:00)
[2020-04-14] MEDS: HYDROGEN PEROXIDE 3% 118 ML BOTTLE TP SCH ×2 (09:38→21:21)
--- NOTE | 2020-04-14 19:28 | NUR ---
Seen and examined By Dr Heaton,no new orders noted
[2020-04-14 20:00] VITALS: BP 126/79
[2020-04-14] MEDS: ASCORBIC ACID 500 MG TABLET GT SCH (21:04)
[2020-04-15] MEDS: GLUCERNA 1.2 1000ML LIQUID GT PRN (00:23)
[2020-04-15] MEDS: OMEPRAZOLE 20 MG CAPSULE.DR GT SCH (06:12)
[2020-04-15 07:48] VITALS: BP 116/71
[2020-04-15] MEDS: SIMETHICONE 80 MG TAB.CHEW GT SCH ×3 (08:16→16:55)
[2020-04-15] MEDS: METOPROLOL TARTRATE 50 MG TABLET GT SCH ×2 (08:16→21:01)
[2020-04-15] MEDS: ACIDOPHILUS/BULGARICUS CHEW TAB GT SCH ×2 (08:16→20:59)
[2020-04-15] MEDS: BACLOFEN 20 MG TABLET GT SCH ×4 (08:16→20:59)
[2020-04-15] MEDS: Z GUARD REMEDY PASTE 57 GM TUBE TOP SCH ×2 (08:17→21:02)
[2020-04-15] MEDS: SERTRALINE HCL 50 MG TABLET GT SCH (08:17)
[2020-04-15] MEDS: TRIAMCINOLONE ACET 0.1% OINT 15 GM TUBE TP SCH (08:17)
[2020-04-15] MEDS: KETOCONAZOLE 2% SHAMPOO 120 ML BOTTLE TP SCH (08:17)
[2020-04-15] MEDS: ACETAMINOPHEN 650 MG/20 ML UDC- SA PATIENTS-PAIN ONLY GT PRN (08:18)
--- NOTE | 2020-04-15 09:15 | NUR ---
PT. OBSERVED VOMITING X3 GASTRIC CONTENT ,ASPIRATION PRECAUTIONS KEPT.NOTED WITH LARGE AMOUNT OF BOWEL GAS AND ABDOMEN NOTED AT PALPATION AND PERCUSSION WITH LARGE AMOUNT OF BOWEL GAS. DAWN FLUSH GIVEN ORDERED AND EFFECTIVE.WILL CONT. MONITORING AND ASPIRATION PRECAUTIONS KEPT.
[2020-04-15] MEDS: HYDROGEN PEROXIDE 3% 118 ML BOTTLE TP SCH ×2 (09:46→21:30)
[2020-04-15 20:00] VITALS: BP 116/82
[2020-04-15] MEDS: ASCORBIC ACID 500 MG TABLET GT SCH (21:01)
--- NOTE | 2020-04-15 22:37 | NUR ---
Afebrile, Gt feeding tolerating well, no vomiting noted at this time, abdomen is soft to the touch, no distention noted, kept patient clean and comfortable.
[2020-04-16] MEDS: GLUCERNA 1.2 1000ML LIQUID GT PRN (04:10)
[2020-04-16] MEDS: MULTIVIT, IRON, MIN NO. 8, FA TABLET GT SCH (05:32)
[2020-04-16] MEDS: OMEPRAZOLE 20 MG CAPSULE.DR GT SCH (05:32)
[2020-04-16 07:58] VITALS: BP 112/79
[2020-04-16] MEDS: METOPROLOL TARTRATE 50 MG TABLET GT SCH ×2 (08:16→20:27)
[2020-04-16] MEDS: TRIAMCINOLONE ACET 0.1% OINT 15 GM TUBE TP SCH (08:16)
[2020-04-16] MEDS: SERTRALINE HCL 50 MG TABLET GT SCH (08:16)
[2020-04-16] MEDS: BACLOFEN 20 MG TABLET GT SCH ×4 (08:16→20:27)
[2020-04-16] MEDS: ACIDOPHILUS/BULGARICUS CHEW TAB GT SCH ×2 (08:16→20:27)
[2020-04-16] MEDS: SIMETHICONE 80 MG TAB.CHEW GT SCH ×3 (08:16→16:27)
[2020-04-16] MEDS: Z GUARD REMEDY PASTE 57 GM TUBE TOP SCH ×2 (08:16→20:27)
[2020-04-16] MEDS: HYDROGEN PEROXIDE 3% 118 ML BOTTLE TP SCH ×2 (09:15→21:55)
[2020-04-16 19:48] VITALS: BP 141/61
[2020-04-16] MEDS: ASCORBIC ACID 500 MG TABLET GT SCH (20:27)
[2020-04-17] MEDS: GLUCERNA 1.2 1000ML LIQUID GT PRN ×2 (01:30→21:14)
[2020-04-17] MEDS: OMEPRAZOLE 20 MG CAPSULE.DR GT SCH (05:20)
[2020-04-17 07:53] VITALS: BP 141/87
[2020-04-17] MEDS: SIMETHICONE 80 MG TAB.CHEW GT SCH ×3 (08:46→17:13)
[2020-04-17] MEDS: BACLOFEN 20 MG TABLET GT SCH ×4 (08:46→20:17)
[2020-04-17] MEDS: ACIDOPHILUS/BULGARICUS CHEW TAB GT SCH ×2 (08:46→20:17)
[2020-04-17] MEDS: SERTRALINE HCL 50 MG TABLET GT SCH (08:46)
[2020-04-17] MEDS: Z GUARD REMEDY PASTE 57 GM TUBE TOP SCH ×2 (08:46→20:18)
[2020-04-17] MEDS: METOPROLOL TARTRATE 50 MG TABLET GT SCH ×2 (08:46→20:18)
[2020-04-17] MEDS: TRIAMCINOLONE ACET 0.1% OINT 15 GM TUBE TP SCH (08:46)
[2020-04-17] MEDS: HYDROGEN PEROXIDE 3% 118 ML BOTTLE TP SCH ×2 (09:10→21:55)
[2020-04-17 19:23] VITALS: BP 110/73
[2020-04-17] MEDS: ASCORBIC ACID 500 MG TABLET GT SCH (20:18)
--- NOTE | 2020-04-17 22:50 | NUR ---
Afebrile, gt feeding tolerating well, no vomiting at this time, no signs of pain or discomfort, kept clean and comfortable.
[2020-04-18] MEDS: OMEPRAZOLE 20 MG CAPSULE.DR GT SCH (05:44)
[2020-04-18] MEDS: MULTIVIT, IRON, MIN NO. 8, FA TABLET GT SCH (05:44)
[2020-04-18 07:53] VITALS: BP 140/87
[2020-04-18] MEDS: ACIDOPHILUS/BULGARICUS CHEW TAB GT SCH ×2 (08:48→20:30)
[2020-04-18] MEDS: BACLOFEN 20 MG TABLET GT SCH ×4 (08:49→20:30)
[2020-04-18] MEDS: SIMETHICONE 80 MG TAB.CHEW GT SCH ×3 (08:49→16:40)
[2020-04-18] MEDS: SERTRALINE HCL 50 MG TABLET GT SCH (08:49)
[2020-04-18] MEDS: METOPROLOL TARTRATE 50 MG TABLET GT SCH ×2 (08:49→20:30)
[2020-04-18] MEDS: Z GUARD REMEDY PASTE 57 GM TUBE TOP SCH ×2 (08:50→20:30)
[2020-04-18] MEDS: TRIAMCINOLONE ACET 0.1% OINT 15 GM TUBE TP SCH (08:50)
[2020-04-18] MEDS: HYDROGEN PEROXIDE 3% 118 ML BOTTLE TP SCH ×2 (09:56→21:05)
[2020-04-18] MEDS: GLUCERNA 1.2 1000ML LIQUID GT PRN (17:59)
[2020-04-18 20:21] VITALS: BP 126/75
[2020-04-18] MEDS: ASCORBIC ACID 500 MG TABLET GT SCH (20:30)
[2020-04-19] MEDS: OMEPRAZOLE 20 MG CAPSULE.DR GT SCH (05:22)
[2020-04-19 07:42] VITALS: BP 126/79
[2020-04-19] MEDS: SERTRALINE HCL 50 MG TABLET GT SCH (08:13)
[2020-04-19] MEDS: ACIDOPHILUS/BULGARICUS CHEW TAB GT SCH ×2 (08:13→20:07)
[2020-04-19] MEDS: Z GUARD REMEDY PASTE 57 GM TUBE TOP SCH ×2 (08:13→20:08)
[2020-04-19] MEDS: SIMETHICONE 80 MG TAB.CHEW GT SCH ×3 (08:13→17:28)
[2020-04-19] MEDS: BACLOFEN 20 MG TABLET GT SCH ×4 (08:13→20:07)
[2020-04-19] MEDS: METOPROLOL TARTRATE 50 MG TABLET GT SCH ×2 (08:13→20:07)
[2020-04-19] MEDS: TRIAMCINOLONE ACET 0.1% OINT 15 GM TUBE TP SCH (08:14)
[2020-04-19] MEDS: KETOCONAZOLE 2% SHAMPOO 120 ML BOTTLE TP SCH (08:14)
[2020-04-19] MEDS: HYDROGEN PEROXIDE 3% 118 ML BOTTLE TP SCH ×2 (09:51→20:08)
[2020-04-19] MEDS: GLUCERNA 1.2 1000ML LIQUID GT PRN (17:28)
[2020-04-19] MEDS: ASCORBIC ACID 500 MG TABLET GT SCH (20:07)
[2020-04-19 20:15] VITALS: BP 130/77
[2020-04-20] MEDS: OMEPRAZOLE 20 MG CAPSULE.DR GT SCH (05:31)
[2020-04-20] MEDS: MULTIVIT, IRON, MIN NO. 8, FA TABLET GT SCH (05:31)
[2020-04-20] MEDS: HYDROGEN PEROXIDE 3% 118 ML BOTTLE TP SCH ×2 (07:27→21:09)
[2020-04-20 07:47] VITALS: BP 117/71
[2020-04-20] MEDS: ACIDOPHILUS/BULGARICUS CHEW TAB GT SCH ×2 (08:19→20:58)
[2020-04-20] MEDS: SERTRALINE HCL 50 MG TABLET GT SCH (08:19)
[2020-04-20] MEDS: BACLOFEN 20 MG TABLET GT SCH ×4 (08:19→20:58)
[2020-04-20] MEDS: METOPROLOL TARTRATE 50 MG TABLET GT SCH ×2 (08:19→20:59)
[2020-04-20] MEDS: SIMETHICONE 80 MG TAB.CHEW GT SCH ×3 (08:19→17:01)
[2020-04-20] MEDS: Z GUARD REMEDY PASTE 57 GM TUBE TOP SCH ×2 (09:00→21:00)
[2020-04-20] MEDS: GLUCERNA 1.2 1000ML LIQUID GT PRN (11:06)
--- NOTE | 2020-04-20 11:12 | NUR ---
PT'S BROTHER WAS AWARE OF COVID 19 TEST NEGATIVE.
--- NOTE | 2020-04-20 15:30 | NUR ---
Seen and examined by Dr St,no new orders.
[2020-04-20 20:08] VITALS: BP 132/83
[2020-04-20] MEDS: ASCORBIC ACID 500 MG TABLET GT SCH (20:59)
[2020-04-21] MEDS: OMEPRAZOLE 20 MG CAPSULE.DR GT SCH (05:42)
[2020-04-21] MEDS: GLUCERNA 1.2 1000ML LIQUID GT PRN (06:15)
[2020-04-21 07:45] VITALS: BP 128/73
[2020-04-21] MEDS: ACIDOPHILUS/BULGARICUS CHEW TAB GT SCH ×2 (08:47→21:10)
[2020-04-21] MEDS: SIMETHICONE 80 MG TAB.CHEW GT SCH ×3 (08:48→17:09)
[2020-04-21] MEDS: BACLOFEN 20 MG TABLET GT SCH ×4 (08:48→21:10)
[2020-04-21] MEDS: SERTRALINE HCL 50 MG TABLET GT SCH (08:48)
[2020-04-21] MEDS: Z GUARD REMEDY PASTE 57 GM TUBE TOP SCH ×2 (08:48→21:11)
[2020-04-21] MEDS: METOPROLOL TARTRATE 50 MG TABLET GT SCH ×2 (08:49→21:11)
[2020-04-21] MEDS: HYDROGEN PEROXIDE 3% 118 ML BOTTLE TP SCH ×2 (09:10→21:00)
[2020-04-21] MEDS: ACETAMINOPHEN 650 MG/20 ML UDC- SA PATIENTS-PAIN ONLY GT PRN (17:14)
[2020-04-21 20:16] VITALS: BP 120/68
[2020-04-21] MEDS: ASCORBIC ACID 500 MG TABLET GT SCH (21:11)
[2020-04-22] MEDS: GLUCERNA 1.2 1000ML LIQUID GT PRN (02:45)
[2020-04-22] MEDS: MULTIVIT, IRON, MIN NO. 8, FA TABLET GT SCH (05:44)
[2020-04-22] MEDS: OMEPRAZOLE 20 MG CAPSULE.DR GT SCH (05:44)
[2020-04-22 07:50] VITALS: BP 110/64
[2020-04-22] MEDS: BACLOFEN 20 MG TABLET GT SCH ×4 (08:36→21:49)
[2020-04-22] MEDS: ACIDOPHILUS/BULGARICUS CHEW TAB GT SCH ×2 (08:36→21:49)
[2020-04-22] MEDS: METOPROLOL TARTRATE 50 MG TABLET GT SCH ×2 (08:37→21:50)
[2020-04-22] MEDS: KETOCONAZOLE 2% SHAMPOO 120 ML BOTTLE TP SCH (08:37)
[2020-04-22] MEDS: SIMETHICONE 80 MG TAB.CHEW GT SCH ×3 (08:37→16:54)
[2020-04-22] MEDS: Z GUARD REMEDY PASTE 57 GM TUBE TOP SCH ×2 (08:37→21:50)
[2020-04-22] MEDS: SERTRALINE HCL 50 MG TABLET GT SCH (08:37)
[2020-04-22] MEDS: HYDROGEN PEROXIDE 3% 118 ML BOTTLE TP SCH ×2 (09:10→21:38)
--- NOTE | 2020-04-22 17:50 | NUR ---
CALLED AND NOTIFIED [employer] OF ANNUAL PPD TEST. NOTIFIED JESICA OLNG OF THE PPD TEST AND HE OKAYED TO GIVE TEST.
[2020-04-22 20:33] VITALS: BP 127/82
[2020-04-22] MEDS: ASCORBIC ACID 500 MG TABLET GT SCH (21:50)
[2020-04-23] MEDS: GLUCERNA 1.2 1000ML LIQUID GT PRN (02:00)
[2020-04-23] MEDS: OMEPRAZOLE 20 MG CAPSULE.DR GT SCH (05:45)
[2020-04-23 08:05] VITALS: BP 110/74
[2020-04-23] MEDS: METOPROLOL TARTRATE 50 MG TABLET GT SCH ×2 (09:25→21:00)
[2020-04-23] MEDS: SIMETHICONE 80 MG TAB.CHEW GT SCH ×3 (09:25→17:19)
[2020-04-23] MEDS: SERTRALINE HCL 50 MG TABLET GT SCH (09:25)
[2020-04-23] MEDS: Z GUARD REMEDY PASTE 57 GM TUBE TOP SCH ×2 (09:25→21:00)
[2020-04-23] MEDS: ACIDOPHILUS/BULGARICUS CHEW TAB GT SCH ×2 (09:25→21:00)
[2020-04-23] MEDS: BACLOFEN 20 MG TABLET GT SCH ×4 (09:25→21:00)
[2020-04-23] MEDS: HYDROGEN PEROXIDE 3% 118 ML BOTTLE TP SCH ×2 (09:41→21:48)
[2020-04-23] MEDS: ASCORBIC ACID 500 MG TABLET GT SCH (21:00)
[2020-04-23 21:44] VITALS: BP 119/83
[2020-04-24] MEDS: GLUCERNA 1.2 1000ML LIQUID GT PRN ×2 (02:41→23:39)
[2020-04-24] MEDS: OMEPRAZOLE 20 MG CAPSULE.DR GT SCH (06:34)
[2020-04-24] MEDS: MULTIVIT, IRON, MIN NO. 8, FA TABLET GT SCH (06:34)
[2020-04-24 07:45] VITALS: BP 128/68
[2020-04-24] MEDS: SERTRALINE HCL 50 MG TABLET GT SCH (08:58)
[2020-04-24] MEDS: ACIDOPHILUS/BULGARICUS CHEW TAB GT SCH ×2 (08:58→21:22)
[2020-04-24] MEDS: Z GUARD REMEDY PASTE 57 GM TUBE TOP SCH ×2 (08:58→21:23)
[2020-04-24] MEDS: SIMETHICONE 80 MG TAB.CHEW GT SCH ×3 (08:58→17:14)
[2020-04-24] MEDS: BACLOFEN 20 MG TABLET GT SCH ×4 (08:58→21:22)
[2020-04-24] MEDS: METOPROLOL TARTRATE 50 MG TABLET GT SCH ×2 (08:59→21:23)
[2020-04-24] MEDS: HYDROGEN PEROXIDE 3% 118 ML BOTTLE TP SCH ×2 (10:20→21:00)
[2020-04-24 19:40] VITALS: BP 142/63
[2020-04-24] MEDS: ASCORBIC ACID 500 MG TABLET GT SCH (21:23)
[2020-04-25] MEDS: OMEPRAZOLE 20 MG CAPSULE.DR GT SCH (05:59)
[2020-04-25] MEDS: HYDROGEN PEROXIDE 3% 118 ML BOTTLE TP SCH ×2 (07:44→21:32)
[2020-04-25 07:53] VITALS: BP 137/87
[2020-04-25] MEDS: ACIDOPHILUS/BULGARICUS CHEW TAB GT SCH ×2 (08:31→21:14)
[2020-04-25] MEDS: BACLOFEN 20 MG TABLET GT SCH ×4 (08:32→21:14)
[2020-04-25] MEDS: METOPROLOL TARTRATE 50 MG TABLET GT SCH ×2 (08:32→21:15)
[2020-04-25] MEDS: SIMETHICONE 80 MG TAB.CHEW GT SCH ×3 (08:32→17:35)
[2020-04-25] MEDS: SERTRALINE HCL 50 MG TABLET GT SCH (08:32)
[2020-04-25] MEDS: Z GUARD REMEDY PASTE 57 GM TUBE TOP SCH ×2 (08:33→21:18)
[2020-04-25] MEDS: ASCORBIC ACID 500 MG TABLET GT SCH (21:18)
[2020-04-25 22:31] VITALS: BP 115/76
[2020-04-26] MEDS: GLUCERNA 1.2 1000ML LIQUID GT PRN (00:29)
[2020-04-26] MEDS: OMEPRAZOLE 20 MG CAPSULE.DR GT SCH (05:30)
[2020-04-26] MEDS: MULTIVIT, IRON, MIN NO. 8, FA TABLET GT SCH (05:30)
[2020-04-26 07:44] VITALS: BP 137/87
[2020-04-26] MEDS: ACIDOPHILUS/BULGARICUS CHEW TAB GT SCH ×2 (08:23→20:40)
[2020-04-26] MEDS: METOPROLOL TARTRATE 50 MG TABLET GT SCH ×2 (08:23→20:40)
[2020-04-26] MEDS: BACLOFEN 20 MG TABLET GT SCH ×4 (08:23→20:40)
[2020-04-26] MEDS: SIMETHICONE 80 MG TAB.CHEW GT SCH ×3 (08:24→16:35)
[2020-04-26] MEDS: KETOCONAZOLE 2% SHAMPOO 120 ML BOTTLE TP SCH (08:24)
[2020-04-26] MEDS: Z GUARD REMEDY PASTE 57 GM TUBE TOP SCH ×2 (08:24→20:40)
[2020-04-26] MEDS: SERTRALINE HCL 50 MG TABLET GT SCH (08:24)
[2020-04-26] MEDS: HYDROGEN PEROXIDE 3% 118 ML BOTTLE TP SCH ×2 (09:00→19:52)
[2020-04-26] MEDS: ASCORBIC ACID 500 MG TABLET GT SCH (20:40)
[2020-04-26 20:49] VITALS: BP 123/70
[2020-04-27] MEDS: GLUCERNA 1.2 1000ML LIQUID GT PRN (00:15)
[2020-04-27] MEDS: OMEPRAZOLE 20 MG CAPSULE.DR GT SCH (05:34)
[2020-04-27 07:33] VITALS: BP 107/81
[2020-04-27] MEDS: HYDROGEN PEROXIDE 3% 118 ML BOTTLE TP SCH ×2 (08:52→21:59)
[2020-04-27] MEDS: ACIDOPHILUS/BULGARICUS CHEW TAB GT SCH ×2 (08:55→20:48)
[2020-04-27] MEDS: BACLOFEN 20 MG TABLET GT SCH ×4 (08:55→20:48)
[2020-04-27] MEDS: METOPROLOL TARTRATE 50 MG TABLET GT SCH ×2 (08:55→20:49)
[2020-04-27] MEDS: SERTRALINE HCL 50 MG TABLET GT SCH (08:56)
[2020-04-27] MEDS: SIMETHICONE 80 MG TAB.CHEW GT SCH ×3 (08:56→17:47)
[2020-04-27] MEDS: Z GUARD REMEDY PASTE 57 GM TUBE TOP SCH ×2 (08:57→20:49)
[2020-04-27 20:22] VITALS: BP 127/73
[2020-04-27] MEDS: ASCORBIC ACID 500 MG TABLET GT SCH (20:49)
[2020-04-28] MEDS: GLUCERNA 1.2 1000ML LIQUID GT PRN (01:38)
[2020-04-28] MEDS: MULTIVIT, IRON, MIN NO. 8, FA TABLET GT SCH (05:47)
[2020-04-28] MEDS: OMEPRAZOLE 20 MG CAPSULE.DR GT SCH (05:47)
[2020-04-28 07:39] VITALS: BP 132/77
[2020-04-28] MEDS: HYDROGEN PEROXIDE 3% 118 ML BOTTLE TP SCH ×2 (07:45→21:39)
[2020-04-28] MEDS: BACLOFEN 20 MG TABLET GT SCH ×4 (08:24→21:03)
[2020-04-28] MEDS: ACIDOPHILUS/BULGARICUS CHEW TAB GT SCH ×2 (08:24→21:03)
[2020-04-28] MEDS: Z GUARD REMEDY PASTE 57 GM TUBE TOP SCH ×2 (08:25→21:04)
[2020-04-28] MEDS: SIMETHICONE 80 MG TAB.CHEW GT SCH ×3 (08:25→17:32)
[2020-04-28] MEDS: SERTRALINE HCL 50 MG TABLET GT SCH (08:25)
[2020-04-28] MEDS: METOPROLOL TARTRATE 50 MG TABLET GT SCH ×2 (08:25→21:04)
--- NOTE | 2020-04-28 19:00 | NUR ---
Pt's brother Frank notified regarding Covid 19 results negative.
--- NOTE | 2020-04-28 19:00 | NUR ---
Seen and examined by Dr Heaton ,no new orders noted.
[2020-04-28 20:00] VITALS: BP 120/77
[2020-04-28] MEDS: ASCORBIC ACID 500 MG TABLET GT SCH (21:04)
[2020-04-29] MEDS: OMEPRAZOLE 20 MG CAPSULE.DR GT SCH (05:47)
[2020-04-29] MEDS: GLUCERNA 1.2 1000ML LIQUID GT PRN ×2 (05:48→19:09)
[2020-04-29 07:39] VITALS: BP 124/69
[2020-04-29] MEDS: BACLOFEN 20 MG TABLET GT SCH ×4 (08:48→21:22)
[2020-04-29] MEDS: METOPROLOL TARTRATE 50 MG TABLET GT SCH ×2 (08:48→21:23)
[2020-04-29] MEDS: SERTRALINE HCL 50 MG TABLET GT SCH (08:48)
[2020-04-29] MEDS: SIMETHICONE 80 MG TAB.CHEW GT SCH ×3 (08:48→17:10)
[2020-04-29] MEDS: KETOCONAZOLE 2% SHAMPOO 120 ML BOTTLE TP SCH (08:49)
[2020-04-29] MEDS: Z GUARD REMEDY PASTE 57 GM TUBE TOP SCH ×2 (08:49→21:23)
[2020-04-29] MEDS: ACIDOPHILUS/BULGARICUS CHEW TAB GT SCH ×2 (08:52→21:22)
[2020-04-29] MEDS: HYDROGEN PEROXIDE 3% 118 ML BOTTLE TP SCH ×2 (09:46→20:45)
--- NOTE | 2020-04-29 16:50 | NUR ---
SEEN BY DR. IBRAHIM AND WITH NNO.
[2020-04-29 20:00] VITALS: BP 120/77
[2020-04-29] MEDS: ASCORBIC ACID 500 MG TABLET GT SCH (21:23)
[2020-04-30] MEDS: OMEPRAZOLE 20 MG CAPSULE.DR GT SCH (05:39)
[2020-04-30] MEDS: MULTIVIT, IRON, MIN NO. 8, FA TABLET GT SCH (05:39)
[2020-04-30 07:40] VITALS: BP 122/75
[2020-04-30] MEDS: ACIDOPHILUS/BULGARICUS CHEW TAB GT SCH ×2 (08:25→21:58)
[2020-04-30] MEDS: BACLOFEN 20 MG TABLET GT SCH ×4 (08:25→21:58)
[2020-04-30] MEDS: METOPROLOL TARTRATE 50 MG TABLET GT SCH ×2 (08:30→21:58)
[2020-04-30] MEDS: SIMETHICONE 80 MG TAB.CHEW GT SCH ×3 (08:30→17:00)
[2020-04-30] MEDS: Z GUARD REMEDY PASTE 57 GM TUBE TOP SCH ×2 (08:31→21:58)
[2020-04-30] MEDS: SERTRALINE HCL 50 MG TABLET GT SCH (08:31)
[2020-04-30] MEDS: HYDROGEN PEROXIDE 3% 118 ML BOTTLE TP SCH ×2 (09:00→21:59)
[2020-04-30] MEDS: GLUCERNA 1.2 1000ML LIQUID GT PRN (18:52)
[2020-04-30 20:00] VITALS: BP 128/78
[2020-04-30] MEDS: ASCORBIC ACID 500 MG TABLET GT SCH (21:58)
--- NOTE | 2020-05-01 02:15 | NUR ---
For COVID-19 testing as per [facility] requirement.
[2020-05-01] MEDS: OMEPRAZOLE 20 MG CAPSULE.DR GT SCH (05:44)
[2020-05-01 07:37] VITALS: BP 127/84
[2020-05-01] MEDS: BACLOFEN 20 MG TABLET GT SCH ×4 (08:43→21:08)
[2020-05-01] MEDS: ACIDOPHILUS/BULGARICUS CHEW TAB GT SCH ×2 (08:43→21:08)
[2020-05-01] MEDS: SERTRALINE HCL 50 MG TABLET GT SCH (08:44)
[2020-05-01] MEDS: Z GUARD REMEDY PASTE 57 GM TUBE TOP SCH ×2 (08:44→21:08)
[2020-05-01] MEDS: METOPROLOL TARTRATE 50 MG TABLET GT SCH ×2 (08:44→21:08)
[2020-05-01] MEDS: SIMETHICONE 80 MG TAB.CHEW GT SCH ×3 (08:44→17:31)
[2020-05-01] MEDS: HYDROGEN PEROXIDE 3% 118 ML BOTTLE TP SCH ×2 (09:00→21:00)
--- NOTE | 2020-05-01 09:00 | NUR ---
PT'S BROTHER AWARE OF COVID 19 TEST ORDERED FOR TODAY AND IN AGREEMENT .
[2020-05-01 20:36] VITALS: BP 131/83
[2020-05-01] MEDS: ASCORBIC ACID 500 MG TABLET GT SCH (21:08)
[2020-05-02] MEDS: OMEPRAZOLE 20 MG CAPSULE.DR GT SCH (05:18)
[2020-05-02] MEDS: MULTIVIT, IRON, MIN NO. 8, FA TABLET GT SCH (05:36)
[2020-05-02 07:36] VITALS: BP 138/77
[2020-05-02] MEDS: HYDROGEN PEROXIDE 3% 118 ML BOTTLE TP SCH ×2 (08:18→21:39)
[2020-05-02] MEDS: ACIDOPHILUS/BULGARICUS CHEW TAB GT SCH ×2 (09:26→21:12)
[2020-05-02] MEDS: BACLOFEN 20 MG TABLET GT SCH ×4 (09:26→21:12)
[2020-05-02] MEDS: METOPROLOL TARTRATE 50 MG TABLET GT SCH ×2 (09:28→21:12)
[2020-05-02] MEDS: SERTRALINE HCL 50 MG TABLET GT SCH (09:29)
[2020-05-02] MEDS: Z GUARD REMEDY PASTE 57 GM TUBE TOP SCH ×2 (09:29→21:12)
[2020-05-02] MEDS: SIMETHICONE 80 MG TAB.CHEW GT SCH ×3 (09:29→17:48)
--- NOTE | 2020-05-02 17:25 | NUR ---
PT'S RESP.DEMOCRAT EDDIED WAS INFORMED WITH MESSAGE RE: NEGATIVE COVID 19 TEST RESULT.
[2020-05-02] MEDS: ASCORBIC ACID 500 MG TABLET GT SCH (21:12)
[2020-05-03] MEDS: OMEPRAZOLE 20 MG CAPSULE.DR GT SCH (05:54)
[2020-05-03 07:43] VITALS: BP 129/73
[2020-05-03] MEDS: HYDROGEN PEROXIDE 3% 118 ML BOTTLE TP SCH ×2 (08:38→22:00)
[2020-05-03] MEDS: ACIDOPHILUS/BULGARICUS CHEW TAB GT SCH ×2 (09:37→21:21)
[2020-05-03] MEDS: BACLOFEN 20 MG TABLET GT SCH ×4 (09:38→21:21)
[2020-05-03] MEDS: SERTRALINE HCL 50 MG TABLET GT SCH (09:39)
[2020-05-03] MEDS: SIMETHICONE 80 MG TAB.CHEW GT SCH ×3 (09:39→17:00)
[2020-05-03] MEDS: KETOCONAZOLE 2% SHAMPOO 120 ML BOTTLE TP SCH (09:39)
[2020-05-03] MEDS: Z GUARD REMEDY PASTE 57 GM TUBE TOP SCH ×2 (09:39→21:22)
[2020-05-03] MEDS: METOPROLOL TARTRATE 50 MG TABLET GT SCH ×2 (09:39→21:22)
--- NOTE | 2020-05-03 13:42 | NUR ---
SEEN BY GLENN Bolaños AND WITH NNO.
[2020-05-03] MEDS: GLUCERNA 1.2 1000ML LIQUID GT PRN (18:10)
[2020-05-03 20:21] VITALS: BP 130/74
[2020-05-03] MEDS: ASCORBIC ACID 500 MG TABLET GT SCH (21:22)
[2020-05-04] MEDS: MULTIVIT, IRON, MIN NO. 8, FA TABLET GT SCH (05:58)
[2020-05-04] MEDS: OMEPRAZOLE 20 MG CAPSULE.DR GT SCH (05:58)
[2020-05-04 07:34] VITALS: BP 120/74
[2020-05-04] MEDS: SIMETHICONE 80 MG TAB.CHEW GT SCH ×3 (09:00→13:03)
[2020-05-04] MEDS: HYDROGEN PEROXIDE 3% 118 ML BOTTLE TP SCH ×2 (09:00→21:08)
[2020-05-04] MEDS: ACIDOPHILUS/BULGARICUS CHEW TAB GT SCH ×2 (09:31→21:06)
[2020-05-04] MEDS: Z GUARD REMEDY PASTE 57 GM TUBE TOP SCH ×2 (09:31→21:07)
[2020-05-04] MEDS: BACLOFEN 20 MG TABLET GT SCH ×3 (09:31→21:06)
[2020-05-04] MEDS: METOPROLOL TARTRATE 50 MG TABLET GT SCH ×2 (09:31→21:07)
[2020-05-04] MEDS: SERTRALINE HCL 50 MG TABLET GT SCH (09:31)
--- NOTE | 2020-05-04 14:33 | NUR ---
Seen and examined by Dalia Rodriguez,no new orders.
[2020-05-04] MEDS: GLUCERNA 1.2 1000ML LIQUID GT PRN (15:13)
[2020-05-04 20:33] VITALS: BP 129/83
[2020-05-04] MEDS: ASCORBIC ACID 500 MG TABLET GT SCH (21:07)
[2020-05-05] MEDS: OMEPRAZOLE 20 MG CAPSULE.DR GT SCH (05:50)
[2020-05-05 07:41] VITALS: BP 124/67
[2020-05-05] MEDS: BACLOFEN 20 MG TABLET GT SCH ×4 (08:54→21:47)
[2020-05-05] MEDS: ACIDOPHILUS/BULGARICUS CHEW TAB GT SCH ×2 (08:54→21:47)
[2020-05-05] MEDS: METOPROLOL TARTRATE 50 MG TABLET GT SCH ×2 (08:55→21:48)
[2020-05-05] MEDS: Z GUARD REMEDY PASTE 57 GM TUBE TOP SCH ×2 (08:56→21:48)
[2020-05-05] MEDS: SERTRALINE HCL 50 MG TABLET GT SCH (08:56)
[2020-05-05] MEDS: SIMETHICONE 80 MG TAB.CHEW GT SCH ×3 (09:00→17:00)
[2020-05-05] MEDS: HYDROGEN PEROXIDE 3% 118 ML BOTTLE TP SCH ×2 (09:50→22:00)
[2020-05-05 20:08] VITALS: BP 127/76
[2020-05-05] MEDS: ASCORBIC ACID 500 MG TABLET GT SCH (21:48)
[2020-05-06] MEDS: OMEPRAZOLE 20 MG CAPSULE.DR GT SCH (05:17)
[2020-05-06] MEDS: MULTIVIT, IRON, MIN NO. 8, FA TABLET GT SCH (06:48)
[2020-05-06 07:25] VITALS: BP 141/84
[2020-05-06] MEDS: HYDROGEN PEROXIDE 3% 118 ML BOTTLE TP SCH ×2 (08:00→21:00)
[2020-05-06] MEDS: BACLOFEN 20 MG TABLET GT SCH ×4 (08:57→21:12)
[2020-05-06] MEDS: ACIDOPHILUS/BULGARICUS CHEW TAB GT SCH ×2 (08:57→21:12)
[2020-05-06] MEDS: SERTRALINE HCL 50 MG TABLET GT SCH (08:58)
[2020-05-06] MEDS: METOPROLOL TARTRATE 50 MG TABLET GT SCH ×2 (08:58→21:12)
[2020-05-06] MEDS: SIMETHICONE 80 MG TAB.CHEW GT SCH ×3 (08:58→17:22)
[2020-05-06] MEDS: Z GUARD REMEDY PASTE 57 GM TUBE TOP SCH ×2 (08:59→21:13)
[2020-05-06] MEDS: GLUCERNA 1.2 1000ML LIQUID GT PRN (09:42)
[2020-05-06] MEDS: KETOCONAZOLE 2% SHAMPOO 120 ML BOTTLE TP SCH (09:42)
--- NOTE | 2020-05-06 16:54 | NUR ---
Seen by Dr St,no new orders.
[2020-05-06 19:30] VITALS: BP 112/63
[2020-05-06] MEDS: ASCORBIC ACID 500 MG TABLET GT SCH (21:12)
[2020-05-07] MEDS: GLUCERNA 1.2 1000ML LIQUID GT PRN (04:03)
[2020-05-07] MEDS: OMEPRAZOLE 20 MG CAPSULE.DR GT SCH (05:34)
[2020-05-07] MEDS: HYDROGEN PEROXIDE 3% 118 ML BOTTLE TP SCH ×2 (07:22→21:34)
[2020-05-07 07:32] VITALS: BP 147/87
[2020-05-07] MEDS: ACIDOPHILUS/BULGARICUS CHEW TAB GT SCH ×2 (09:01→20:50)
[2020-05-07] MEDS: BACLOFEN 20 MG TABLET GT SCH ×4 (09:01→20:50)
[2020-05-07] MEDS: METOPROLOL TARTRATE 50 MG TABLET GT SCH ×2 (09:01→20:52)
[2020-05-07] MEDS: SERTRALINE HCL 50 MG TABLET GT SCH (09:02)
[2020-05-07] MEDS: SIMETHICONE 80 MG TAB.CHEW GT SCH ×3 (09:02→17:24)
[2020-05-07] MEDS: Z GUARD REMEDY PASTE 57 GM TUBE TOP SCH ×2 (09:03→20:53)
[2020-05-07 19:53] VITALS: BP 109/69
[2020-05-07] MEDS: ASCORBIC ACID 500 MG TABLET GT SCH (20:53)
[2020-05-08] MEDS: OMEPRAZOLE 20 MG CAPSULE.DR GT SCH (05:27)
[2020-05-08] MEDS: GLUCERNA 1.2 1000ML LIQUID GT PRN (05:28)
[2020-05-08] MEDS: MULTIVIT, IRON, MIN NO. 8, FA TABLET GT SCH (05:30)
[2020-05-08] MEDS: HYDROGEN PEROXIDE 3% 118 ML BOTTLE TP SCH ×2 (07:54→21:00)
[2020-05-08 08:22] VITALS: BP 133/82
[2020-05-08] MEDS: METOPROLOL TARTRATE 50 MG TABLET GT SCH ×2 (08:23→20:43)
[2020-05-08] MEDS: BACLOFEN 20 MG TABLET GT SCH ×4 (08:23→20:43)
[2020-05-08] MEDS: ACIDOPHILUS/BULGARICUS CHEW TAB GT SCH ×2 (08:23→20:43)
[2020-05-08] MEDS: SERTRALINE HCL 50 MG TABLET GT SCH (08:23)
[2020-05-08] MEDS: SIMETHICONE 80 MG TAB.CHEW GT SCH ×3 (08:23→17:02)
[2020-05-08] MEDS: Z GUARD REMEDY PASTE 57 GM TUBE TOP SCH ×2 (08:24→20:43)
--- NOTE | 2020-05-08 18:43 | NUR ---
New orders noted for chronic psoriatic rashes,and carried out.
[2020-05-08 19:50] VITALS: BP 126/85
[2020-05-08] MEDS: ASCORBIC ACID 500 MG TABLET GT SCH (20:43)
[2020-05-09] MEDS: OMEPRAZOLE 20 MG CAPSULE.DR GT SCH (05:01)
[2020-05-09] MEDS: GLUCERNA 1.2 1000ML LIQUID GT PRN (05:02)
[2020-05-09] MEDS: HYDROGEN PEROXIDE 3% 118 ML BOTTLE TP SCH ×2 (07:33→19:45)
[2020-05-09 07:34] VITALS: BP 118/79
[2020-05-09] MEDS: BACLOFEN 20 MG TABLET GT SCH ×4 (08:53→20:27)
[2020-05-09] MEDS: ACIDOPHILUS/BULGARICUS CHEW TAB GT SCH ×2 (08:53→20:27)
[2020-05-09] MEDS: SIMETHICONE 80 MG TAB.CHEW GT SCH ×3 (08:54→17:05)
[2020-05-09] MEDS: Z GUARD REMEDY PASTE 57 GM TUBE TOP SCH ×2 (08:54→20:27)
[2020-05-09] MEDS: SERTRALINE HCL 50 MG TABLET GT SCH (08:54)
[2020-05-09] MEDS: METOPROLOL TARTRATE 50 MG TABLET GT SCH ×2 (08:54→21:00)
[2020-05-09] MEDS: TRIAMCINOLONE ACET 0.1% OINT 15 GM TUBE TP SCH (08:54)
--- NOTE | 2020-05-09 20:14 | NUR ---
Covid results negative,Frank zurita's brother notified.
[2020-05-09] MEDS: ASCORBIC ACID 500 MG TABLET GT SCH (20:27)
[2020-05-09 23:39] VITALS: BP 130/83
[2020-05-10] MEDS: MULTIVIT, IRON, MIN NO. 8, FA TABLET GT SCH (05:30)
[2020-05-10] MEDS: OMEPRAZOLE 20 MG CAPSULE.DR GT SCH (05:30)
[2020-05-10 07:33] VITALS: BP 130/71
[2020-05-10] MEDS: ACIDOPHILUS/BULGARICUS CHEW TAB GT SCH ×2 (08:36→20:41)
[2020-05-10] MEDS: SIMETHICONE 80 MG TAB.CHEW GT SCH ×3 (08:37→16:25)
[2020-05-10] MEDS: Z GUARD REMEDY PASTE 57 GM TUBE TOP SCH ×2 (08:37→20:42)
[2020-05-10] MEDS: SERTRALINE HCL 50 MG TABLET GT SCH (08:37)
[2020-05-10] MEDS: TRIAMCINOLONE ACET 0.1% OINT 15 GM TUBE TP SCH (08:37)
[2020-05-10] MEDS: BACLOFEN 20 MG TABLET GT SCH ×4 (08:37→20:41)
[2020-05-10] MEDS: METOPROLOL TARTRATE 50 MG TABLET GT SCH ×2 (08:37→20:42)
[2020-05-10] MEDS: KETOCONAZOLE 2% SHAMPOO 120 ML BOTTLE TP SCH (08:38)
[2020-05-10] MEDS: HYDROGEN PEROXIDE 3% 118 ML BOTTLE TP SCH ×2 (09:16→21:21)
[2020-05-10 20:00] VITALS: BP 114/71
[2020-05-10] MEDS: ASCORBIC ACID 500 MG TABLET GT SCH (20:42)
[2020-05-11] MEDS: OMEPRAZOLE 20 MG CAPSULE.DR GT SCH (05:45)
[2020-05-11] MEDS: GLUCERNA 1.2 1000ML LIQUID GT PRN ×2 (05:46→23:00)
[2020-05-11 07:36] VITALS: BP 128/75
[2020-05-11] MEDS: HYDROGEN PEROXIDE 3% 118 ML BOTTLE TP SCH ×2 (07:58→21:00)
[2020-05-11] MEDS: TRIAMCINOLONE ACET 0.1% OINT 15 GM TUBE TP SCH (09:18)
[2020-05-11] MEDS: SIMETHICONE 80 MG TAB.CHEW GT SCH ×3 (09:18→17:29)
[2020-05-11] MEDS: Z GUARD REMEDY PASTE 57 GM TUBE TOP SCH ×2 (09:18→21:03)
[2020-05-11] MEDS: ACIDOPHILUS/BULGARICUS CHEW TAB GT SCH ×2 (09:18→21:02)
[2020-05-11] MEDS: SERTRALINE HCL 50 MG TABLET GT SCH (09:18)
[2020-05-11] MEDS: BACLOFEN 20 MG TABLET GT SCH ×4 (09:18→21:02)
[2020-05-11] MEDS: METOPROLOL TARTRATE 50 MG TABLET GT SCH ×2 (09:18→21:02)
--- NOTE | 2020-05-11 13:00 | NUR ---
Seen and examined by Dalia Rodriguez,no new orders noted.
--- NOTE | 2020-05-11 16:42 | NUR ---
INTERDISCIPLINARY PLAN OF CARE CONFERENCE was held today. Patient's family was not available to participate in the meeting. Dr. Heaton and the Interdisciplinary team reviewed the current plan of care in detail. RN reported on the patient's medical condition and ongoing skin treatment. No major changes in patient's condition were reported by RN or by the other disciplines. See RN IDT conference notes. See also all other disciplines IDT notes and physician's progress notes for additional details.
[2020-05-11 20:00] VITALS: BP 120/76
[2020-05-11] MEDS: ASCORBIC ACID 500 MG TABLET GT SCH (21:03)
[2020-05-12] MEDS: MULTIVIT, IRON, MIN NO. 8, FA TABLET GT SCH (05:59)
[2020-05-12] MEDS: OMEPRAZOLE 20 MG CAPSULE.DR GT SCH (05:59)
[2020-05-12 07:39] VITALS: BP 138/71
[2020-05-12] MEDS: ACIDOPHILUS/BULGARICUS CHEW TAB GT SCH ×2 (09:28→20:45)
[2020-05-12] MEDS: BACLOFEN 20 MG TABLET GT SCH ×4 (09:28→20:45)
[2020-05-12] MEDS: Z GUARD REMEDY PASTE 57 GM TUBE TOP SCH ×2 (09:29→20:46)
[2020-05-12] MEDS: TRIAMCINOLONE ACET 0.1% OINT 15 GM TUBE TP SCH (09:29)
[2020-05-12] MEDS: METOPROLOL TARTRATE 50 MG TABLET GT SCH ×2 (09:29→20:46)
[2020-05-12] MEDS: SERTRALINE HCL 50 MG TABLET GT SCH (09:29)
[2020-05-12] MEDS: SIMETHICONE 80 MG TAB.CHEW GT SCH ×3 (09:29→17:18)
[2020-05-12] MEDS: HYDROGEN PEROXIDE 3% 118 ML BOTTLE TP SCH ×2 (10:20→21:40)
--- NOTE | 2020-05-12 14:30 | NUR ---
SEEN AND EXAMINED BY AND WITH NNO.
[2020-05-12 20:00] VITALS: BP 129/82
[2020-05-12] MEDS: ASCORBIC ACID 500 MG TABLET GT SCH (20:46)
[2020-05-13] MEDS: GLUCERNA 1.2 1000ML LIQUID GT PRN (02:30)
[2020-05-13] MEDS: OMEPRAZOLE 20 MG CAPSULE.DR GT SCH (05:44)
[2020-05-13 07:53] VITALS: BP 126/67
[2020-05-13] MEDS: KETOCONAZOLE 2% SHAMPOO 120 ML BOTTLE TP SCH (09:03)
[2020-05-13] MEDS: SERTRALINE HCL 50 MG TABLET GT SCH (09:03)
[2020-05-13] MEDS: TRIAMCINOLONE ACET 0.1% OINT 15 GM TUBE TP SCH (09:03)
[2020-05-13] MEDS: Z GUARD REMEDY PASTE 57 GM TUBE TOP SCH ×2 (09:03→21:46)
[2020-05-13] MEDS: SIMETHICONE 80 MG TAB.CHEW GT SCH ×3 (09:03→16:22)
[2020-05-13] MEDS: ACIDOPHILUS/BULGARICUS CHEW TAB GT SCH ×2 (09:03→21:45)
[2020-05-13] MEDS: BACLOFEN 20 MG TABLET GT SCH ×4 (09:03→21:45)
[2020-05-13] MEDS: METOPROLOL TARTRATE 50 MG TABLET GT SCH ×2 (09:03→21:46)
[2020-05-13] MEDS: HYDROGEN PEROXIDE 3% 118 ML BOTTLE TP SCH ×2 (10:30→21:08)
--- NOTE | 2020-05-13 13:32 | NUR ---
Spoke with Pt's brother Frank Vidallinda. Verbal consent given by Frank Johnson for patient to receive COVID 19 Vaccine.
[2020-05-13 20:18] VITALS: BP 136/77
[2020-05-13] MEDS: ASCORBIC ACID 500 MG TABLET GT SCH (21:46)
[2020-05-14] MEDS: GLUCERNA 1.2 1000ML LIQUID GT PRN (02:00)
[2020-05-14] MEDS: OMEPRAZOLE 20 MG CAPSULE.DR GT SCH (05:29)
[2020-05-14] MEDS: MULTIVIT, IRON, MIN NO. 8, FA TABLET GT SCH (05:31)
[2020-05-14 08:32] VITALS: BP 117/72
[2020-05-14] MEDS: HYDROGEN PEROXIDE 3% 118 ML BOTTLE TP SCH ×2 (09:04→21:00)
[2020-05-14] MEDS: ACIDOPHILUS/BULGARICUS CHEW TAB GT SCH ×2 (09:29→21:10)
[2020-05-14] MEDS: BACLOFEN 20 MG TABLET GT SCH ×4 (09:30→21:10)
[2020-05-14] MEDS: METOPROLOL TARTRATE 50 MG TABLET GT SCH ×2 (09:30→21:10)
[2020-05-14] MEDS: TRIAMCINOLONE ACET 0.1% OINT 15 GM TUBE TP SCH (09:31)
[2020-05-14] MEDS: SIMETHICONE 80 MG TAB.CHEW GT SCH ×3 (09:31→17:23)
[2020-05-14] MEDS: Z GUARD REMEDY PASTE 57 GM TUBE TOP SCH ×2 (09:31→21:10)
[2020-05-14] MEDS: SERTRALINE HCL 50 MG TABLET GT SCH (09:31)
--- NOTE | 2020-05-14 11:30 | NUR ---
SEEN BY DR. IBRAHIM AND WITH NNO.
[2020-05-14 19:55] VITALS: BP 118/72
[2020-05-14] MEDS: ASCORBIC ACID 500 MG TABLET GT SCH (21:10)
[2020-05-15] MEDS: GLUCERNA 1.2 1000ML LIQUID GT PRN (02:49)
[2020-05-15] MEDS: OMEPRAZOLE 20 MG CAPSULE.DR GT SCH (06:21)
[2020-05-15] MEDS: HYDROGEN PEROXIDE 3% 118 ML BOTTLE TP SCH ×2 (07:46→21:16)
[2020-05-15 07:56] VITALS: BP 124/81
[2020-05-15] MEDS: ACIDOPHILUS/BULGARICUS CHEW TAB GT SCH ×2 (09:29→20:31)
[2020-05-15] MEDS: BACLOFEN 20 MG TABLET GT SCH ×4 (09:29→20:31)
[2020-05-15] MEDS: SIMETHICONE 80 MG TAB.CHEW GT SCH ×3 (09:29→16:21)
[2020-05-15] MEDS: Z GUARD REMEDY PASTE 57 GM TUBE TOP SCH ×2 (09:29→20:31)
[2020-05-15] MEDS: SERTRALINE HCL 50 MG TABLET GT SCH (09:29)
[2020-05-15] MEDS: METOPROLOL TARTRATE 50 MG TABLET GT SCH ×2 (09:29→20:31)
[2020-05-15] MEDS: TRIAMCINOLONE ACET 0.1% OINT 15 GM TUBE TP SCH (09:29)
[2020-05-15 20:00] VITALS: BP 128/85
[2020-05-15] MEDS: ASCORBIC ACID 500 MG TABLET GT SCH (20:31)
[2020-05-16] MEDS: GLUCERNA 1.2 1000ML LIQUID GT PRN (01:56)
[2020-05-16] MEDS: OMEPRAZOLE 20 MG CAPSULE.DR GT SCH (05:49)
[2020-05-16] MEDS: MULTIVIT, IRON, MIN NO. 8, FA TABLET GT SCH (05:49)
--- NOTE | 2020-05-16 06:23 | NUR ---
LICENSING AND REGISTRATION DIRECTOR and license nurse noticed patient had skin problem, on assessment, noted with some moisture and some blood on the inguinal area due to incontinence associated skin damage. Cleansed patient and initiated in- house treatment, kept patient clean and comfortable.
[2020-05-16 07:58] VITALS: BP 123/77
[2020-05-16] MEDS: BACLOFEN 20 MG TABLET GT SCH ×4 (08:31→20:34)
[2020-05-16] MEDS: Z GUARD REMEDY PASTE 57 GM TUBE TOP SCH ×2 (08:31→20:34)
[2020-05-16] MEDS: METOPROLOL TARTRATE 50 MG TABLET GT SCH ×2 (08:31→20:34)
[2020-05-16] MEDS: SIMETHICONE 80 MG TAB.CHEW GT SCH ×3 (08:31→16:10)
[2020-05-16] MEDS: ACIDOPHILUS/BULGARICUS CHEW TAB GT SCH ×2 (08:31→20:34)
[2020-05-16] MEDS: TRIAMCINOLONE ACET 0.1% OINT 15 GM TUBE TP SCH (08:31)
[2020-05-16] MEDS: SERTRALINE HCL 50 MG TABLET GT SCH (08:31)
[2020-05-16] MEDS: COD LIVER OIL/ZINC OXIDE OINT 113 GM TUBE TOP SCH ×2 (09:00→20:34)
[2020-05-16] MEDS: HYDROGEN PEROXIDE 3% 118 ML BOTTLE TP SCH ×2 (09:25→20:55)
--- NOTE | 2020-05-16 12:25 | NUR ---
MESSAGE WAS LEFT FOR BROTHER RE:COVID 19 TEST NEGATIVE.
[2020-05-16] MEDS: ASCORBIC ACID 500 MG TABLET GT SCH (20:34)
[2020-05-16 20:51] VITALS: BP 120/78
[2020-05-17] MEDS: GLUCERNA 1.2 1000ML LIQUID GT PRN (01:53)
[2020-05-17] MEDS: OMEPRAZOLE 20 MG CAPSULE.DR GT SCH (05:59)
[2020-05-17 08:00] VITALS: BP 131/75
[2020-05-17] MEDS: TRIAMCINOLONE ACET 0.1% OINT 15 GM TUBE TP SCH (09:00)
[2020-05-17] MEDS: HYDROGEN PEROXIDE 3% 118 ML BOTTLE TP SCH ×2 (09:00→21:54)
[2020-05-17] MEDS: ACIDOPHILUS/BULGARICUS CHEW TAB GT SCH ×2 (09:03→20:43)
[2020-05-17] MEDS: BACLOFEN 20 MG TABLET GT SCH ×4 (09:03→20:44)
[2020-05-17] MEDS: SERTRALINE HCL 50 MG TABLET GT SCH (09:04)
[2020-05-17] MEDS: COD LIVER OIL/ZINC OXIDE OINT 113 GM TUBE TOP SCH ×2 (09:04→20:44)
[2020-05-17] MEDS: SIMETHICONE 80 MG TAB.CHEW GT SCH ×3 (09:04→17:56)
[2020-05-17] MEDS: Z GUARD REMEDY PASTE 57 GM TUBE TOP SCH ×2 (09:04→20:44)
[2020-05-17] MEDS: METOPROLOL TARTRATE 50 MG TABLET GT SCH ×2 (09:05→21:00)
[2020-05-17] MEDS: KETOCONAZOLE 2% SHAMPOO 120 ML BOTTLE TP SCH (09:05)
--- NOTE | 2020-05-17 13:00 | NUR ---
SEEN AND EXAMINED BY GLENN Bolaños AND WITH ELIZO.
[2020-05-17] MEDS: ASCORBIC ACID 500 MG TABLET GT SCH (20:43)
[2020-05-17 20:59] VITALS: BP 142/84
[2020-05-18] MEDS: MULTIVIT, IRON, MIN NO. 8, FA TABLET GT SCH (05:33)
[2020-05-18] MEDS: OMEPRAZOLE 20 MG CAPSULE.DR GT SCH (05:33)
[2020-05-18] MEDS: GLUCERNA 1.2 1000ML LIQUID GT PRN (05:33)
[2020-05-18] MEDS: HYDROGEN PEROXIDE 3% 118 ML BOTTLE TP SCH ×2 (07:35→22:00)
[2020-05-18 07:58] VITALS: BP 128/78
[2020-05-18] MEDS: ACIDOPHILUS/BULGARICUS CHEW TAB GT SCH ×2 (08:49→21:09)
[2020-05-18] MEDS: BACLOFEN 20 MG TABLET GT SCH ×4 (08:49→21:09)
[2020-05-18] MEDS: Z GUARD REMEDY PASTE 57 GM TUBE TOP SCH ×2 (08:50→21:10)
[2020-05-18] MEDS: COD LIVER OIL/ZINC OXIDE OINT 113 GM TUBE TOP SCH ×2 (08:50→21:09)
[2020-05-18] MEDS: SERTRALINE HCL 50 MG TABLET GT SCH (08:50)
[2020-05-18] MEDS: METOPROLOL TARTRATE 50 MG TABLET GT SCH ×2 (08:50→21:09)
[2020-05-18] MEDS: SIMETHICONE 80 MG TAB.CHEW GT SCH ×3 (08:50→17:55)
[2020-05-18] MEDS: TRIAMCINOLONE ACET 0.1% OINT 15 GM TUBE TP SCH (08:50)
[2020-05-18 19:51] VITALS: BP 140/85
--- NOTE | 2020-05-18 19:58 | NUR ---
New orders to Give COVID vaccine x 1 carried out.
[2020-05-18] MEDS: ASCORBIC ACID 500 MG TABLET GT SCH (21:09)
[2020-05-19] MEDS: GLUCERNA 1.2 1000ML LIQUID GT PRN (01:31)
[2020-05-19 01:35] VITALS: BP 124/72
--- NOTE | 2020-05-19 01:35 | NUR ---
Patient noted with small amount of yellowish feeding like consistency vomitus after suctioning, abdomen is soft and non-distended. Patient had Bowel movement yesterday, HOB elevated, on aspiration precaution, kept clean and comfortable, will continue monitor.
[2020-05-19] MEDS: OMEPRAZOLE 20 MG CAPSULE.DR GT SCH (05:48)
[2020-05-19 06:15] VITALS: BP 118/68
--- NOTE | 2020-05-19 06:17 | NUR ---
Patient is sleeping comfortably, gt feeding tolerating well, no vomiting noted, no residuals. afebrile, 02 sat is 99%, T: 98.5 BP: 118/68 HR: 82 Pain: 0/10, no signs of any distress noted, kept clean and comfortable.
[2020-05-19 07:56] VITALS: BP 125/89
[2020-05-19] MEDS: METOPROLOL TARTRATE 50 MG TABLET GT SCH ×2 (09:54→21:34)
[2020-05-19] MEDS: COD LIVER OIL/ZINC OXIDE OINT 113 GM TUBE TOP SCH ×2 (09:54→21:35)
[2020-05-19] MEDS: BACLOFEN 20 MG TABLET GT SCH ×4 (09:54→21:34)
[2020-05-19] MEDS: SERTRALINE HCL 50 MG TABLET GT SCH (09:54)
[2020-05-19] MEDS: ACIDOPHILUS/BULGARICUS CHEW TAB GT SCH ×2 (09:54→21:34)
[2020-05-19] MEDS: SIMETHICONE 80 MG TAB.CHEW GT SCH ×3 (09:54→17:42)
[2020-05-19] MEDS: TRIAMCINOLONE ACET 0.1% OINT 15 GM TUBE TP SCH (09:55)
[2020-05-19] MEDS: Z GUARD REMEDY PASTE 57 GM TUBE TOP SCH ×2 (09:55→21:35)
[2020-05-19] MEDS: HYDROGEN PEROXIDE 3% 118 ML BOTTLE TP SCH ×2 (10:11→22:00)
--- NOTE | 2020-05-19 18:37 | NUR ---
Left message to Frank zurita's brother,pt received the Covid vaccine,no adverse reaction noted.On close observation.
[2020-05-19 20:20] VITALS: BP 114/58
[2020-05-19] MEDS: ASCORBIC ACID 500 MG TABLET GT SCH (21:35)
[~2020-05-20] VITALS: Ht 160 cm; Wt 59.0 kg
--- NOTE | 2020-05-20 06:23 | NUR ---
no side effects noted from covid vaccine
[2020-05-20] MEDS: OMEPRAZOLE 20 MG CAPSULE.DR GT SCH (06:24)
[2020-05-20] MEDS: MULTIVIT, IRON, MIN NO. 8, FA TABLET GT SCH (06:24)
[2020-05-20 07:57] VITALS: BP 134/80
[2020-05-20] MEDS: ACIDOPHILUS/BULGARICUS CHEW TAB GT SCH ×2 (08:09→21:16)
[2020-05-20] MEDS: SERTRALINE HCL 50 MG TABLET GT SCH (08:09)
[2020-05-20] MEDS: METOPROLOL TARTRATE 50 MG TABLET GT SCH ×2 (08:09→21:17)
[2020-05-20] MEDS: SIMETHICONE 80 MG TAB.CHEW GT SCH ×3 (08:09→16:32)
[2020-05-20] MEDS: BACLOFEN 20 MG TABLET GT SCH ×4 (08:09→21:16)
[2020-05-20] MEDS: COD LIVER OIL/ZINC OXIDE OINT 113 GM TUBE TOP SCH ×2 (08:09→21:18)
[2020-05-20] MEDS: KETOCONAZOLE 2% SHAMPOO 120 ML BOTTLE TP SCH (08:10)
[2020-05-20] MEDS: Z GUARD REMEDY PASTE 57 GM TUBE TOP SCH ×2 (08:10→21:18)
[2020-05-20] MEDS: TRIAMCINOLONE ACET 0.1% OINT 15 GM TUBE TP SCH (08:10)
[2020-05-20] MEDS: HYDROGEN PEROXIDE 3% 118 ML BOTTLE TP SCH ×2 (09:00→18:46)
[2020-05-20] MEDS: ACETAMINOPHEN 650 MG/20 ML UDC- SA PATIENTS-PAIN ONLY GT PRN (16:33)
--- NOTE | 2020-05-20 18:50 | NUR ---
no adverse effects noted from covid vaccine
--- NOTE | 2020-05-20 19:30 | NUR ---
Received patient with intact Right upper arm blister. No treatment indicated at this time, will continue monitor.
[2020-05-20] MEDS: ASCORBIC ACID 500 MG TABLET GT SCH (21:17)
[~2020-05-20 23:59] MED LIST: ACETAMINOPHEN 650 MG/20 ML UDC- SA PATIENTS-FEVER ONLY GT PRN; ALBUTEROL SULFATE 1.25 MG/3 ML NEBU NEB PRN; CIPROFLOXACIN 0.3% OPHT DROP 2.5 ML BOTTLE RIGHTEYE SCH; COD LIVER OIL/ZINC OXIDE OINT 113 GM TUBE TP PRN; COVID-19 VACC,MRNA(MODERNA)/PF 100 MCG/0.5 ML VIAL IM ONE; DIATR MEGLU/DIATRIZOATE SODIUM 30 ML BOTTLE ONE; DIATR MEGLU/DIATRIZOATE SODIUM 30 ML BOTTLE PO ONE; DOCUSATE SODIUM 100 MG/10 ML LIQUID UDC GT PRN; HYDROGEN PEROXIDE 3% 118 ML BOTTLE TP PRN; INFLUENZA VACCINE 2020-2021 0.5 ML DISP.SYRIN IM ONE; TUBERCULIN,PURIF.PROT.DERIV. 5 TU/0.1 ML TEST ID ONE; Z GUARD REMEDY PASTE 57 GM TUBE TOP PRN
--- NOTE | 2020-05-21 03:42 | NUR ---
Patient is afebrile, no signs of any adverse reactions noted from the COVID-19 vaccine.
[2020-05-21] MEDS: OMEPRAZOLE 20 MG CAPSULE.DR GT SCH (06:32)
[2020-05-21] MEDS: HYDROGEN PEROXIDE 3% 118 ML BOTTLE TP SCH ×2 (07:43→21:52)
[2020-05-21] MEDS: BACLOFEN 20 MG TABLET GT SCH ×4 (09:04→21:20)
[2020-05-21] MEDS: METOPROLOL TARTRATE 50 MG TABLET GT SCH ×2 (09:04→21:21)
[2020-05-21] MEDS: SIMETHICONE 80 MG TAB.CHEW GT SCH ×3 (09:04→17:00)
[2020-05-21] MEDS: ACIDOPHILUS/BULGARICUS CHEW TAB GT SCH ×2 (09:04→21:20)
[2020-05-21] MEDS: COD LIVER OIL/ZINC OXIDE OINT 113 GM TUBE TOP SCH ×2 (09:05→21:21)
[2020-05-21] MEDS: Z GUARD REMEDY PASTE 57 GM TUBE TOP SCH ×2 (09:05→21:21)
[2020-05-21] MEDS: SERTRALINE HCL 50 MG TABLET GT SCH (09:05)
[2020-05-21] MEDS: TRIAMCINOLONE ACET 0.1% OINT 15 GM TUBE TP SCH (09:05)
--- NOTE | 2020-05-21 18:54 | NUR ---
Pt afebrile. No s/s of any adverse reaction noted from covid-19 vaccine. Will continue to monitor
--- NOTE | 2020-05-21 19:00 | NUR ---
Seen by Dr. Heaton with no new orders.
[2020-05-21 20:35] VITALS: BP 146/99
[2020-05-21] MEDS: ASCORBIC ACID 500 MG TABLET GT SCH (21:21)
--- NOTE | 2020-05-21 23:20 | NUR ---
Patient is afebrile, no signs of adverse reaction from Covid-19 vaccine.
[2020-05-22] MEDS: GLUCERNA 1.2 1000ML LIQUID GT PRN (00:57)
--- NOTE | 2020-05-22 03:27 | NUR ---
Right upper arm blister, intact, no treatment indicated at this time, will continue monitor.
[2020-05-22] MEDS: OMEPRAZOLE 20 MG CAPSULE.DR GT SCH (05:21)
[2020-05-22] MEDS: MULTIVIT, IRON, MIN NO. 8, FA TABLET GT SCH (05:37)
[2020-05-22 07:49] VITALS: BP 125/64
[2020-05-22] MEDS: Z GUARD REMEDY PASTE 57 GM TUBE TOP SCH ×2 (08:36→21:45)
[2020-05-22] MEDS: COD LIVER OIL/ZINC OXIDE OINT 113 GM TUBE TOP SCH ×2 (08:36→21:45)
[2020-05-22] MEDS: SIMETHICONE 80 MG TAB.CHEW GT SCH ×3 (08:36→16:54)
[2020-05-22] MEDS: BACLOFEN 20 MG TABLET GT SCH ×4 (08:36→21:44)
[2020-05-22] MEDS: TRIAMCINOLONE ACET 0.1% OINT 15 GM TUBE TP SCH (08:36)
[2020-05-22] MEDS: SERTRALINE HCL 50 MG TABLET GT SCH (08:36)
[2020-05-22] MEDS: ACIDOPHILUS/BULGARICUS CHEW TAB GT SCH ×2 (08:36→21:44)
[2020-05-22] MEDS: METOPROLOL TARTRATE 50 MG TABLET GT SCH ×2 (08:36→21:45)
[2020-05-22] MEDS: HYDROGEN PEROXIDE 3% 118 ML BOTTLE TP SCH ×2 (09:00→21:00)
--- NOTE | 2020-05-22 18:45 | NUR ---
no rashes or adverse reaction from moderna covid vaccine observed.
[2020-05-22 20:09] VITALS: BP 115/78
[2020-05-22] MEDS: ASCORBIC ACID 500 MG TABLET GT SCH (21:45)
[2020-05-23] MEDS: GLUCERNA 1.2 1000ML LIQUID GT PRN (00:45)
[2020-05-23] MEDS: OMEPRAZOLE 20 MG CAPSULE.DR GT SCH (05:24)
[2020-05-23 08:20] VITALS: BP 121/66
[2020-05-23] MEDS: ACIDOPHILUS/BULGARICUS CHEW TAB GT SCH ×2 (09:16→21:38)
[2020-05-23] MEDS: BACLOFEN 20 MG TABLET GT SCH ×4 (09:30→21:38)
[2020-05-23] MEDS: COD LIVER OIL/ZINC OXIDE OINT 113 GM TUBE TOP SCH ×2 (09:31→21:39)
[2020-05-23] MEDS: SIMETHICONE 80 MG TAB.CHEW GT SCH ×3 (09:31→17:29)
[2020-05-23] MEDS: METOPROLOL TARTRATE 50 MG TABLET GT SCH ×2 (09:31→21:39)
[2020-05-23] MEDS: SERTRALINE HCL 50 MG TABLET GT SCH (09:31)
[2020-05-23] MEDS: Z GUARD REMEDY PASTE 57 GM TUBE TOP SCH ×2 (09:32→21:39)
[2020-05-23] MEDS: TRIAMCINOLONE ACET 0.1% OINT 15 GM TUBE TP SCH (09:32)
[2020-05-23] MEDS: HYDROGEN PEROXIDE 3% 118 ML BOTTLE TP SCH ×2 (10:20→21:50)
--- NOTE | 2020-05-23 17:52 | NUR ---
Seen and examined by Dr St,no new orders noted.
[2020-05-23] MEDS: ASCORBIC ACID 500 MG TABLET GT SCH (21:39)
[2020-05-23 22:00] VITALS: BP 110/62
[2020-05-24] MEDS: GLUCERNA 1.2 1000ML LIQUID GT PRN (01:45)
[2020-05-24] MEDS: MULTIVIT, IRON, MIN NO. 8, FA TABLET GT SCH (05:58)
[2020-05-24] MEDS: OMEPRAZOLE 20 MG CAPSULE.DR GT SCH (05:58)
[2020-05-24 07:55] VITALS: BP 126/79
== END | disposition still patient (30) | DRG 133 ==
LOC: SA 05-21 → SA1 11-19 20:21 → SA 11-19 20:22
PROVIDERS: ADMIT Internal Medicine; ATTEND Internal Medicine
DX: J96.11 Chronic respiratory failure with hypoxia (principal); G93.1 Anoxic brain damage, not elsewhere classified; R40.3 Persistent vegetative state; Z93.0 Tracheostomy status; E46 Unspecified protein-calorie malnutrition; R53.2 Functional quadriplegia; R13.10 Dysphagia, unspecified; E11.9 Type 2 diabetes mellitus without complications; Z93.1 Gastrostomy status; Z88.0 Allergy status to penicillin; Z86.74 Personal history of sudden cardiac arrest; F32.9 Major depressive disorder, single episode, unspecified; D56.1 Beta thalassemia; E66.01 Morbid (severe) obesity due to excess calories; Z68.21 Body mass index [BMI] 21.0-21.9, adult; I10 Essential (primary) hypertension; G40.909 Epilepsy, unspecified, not intractable, without status epilepticus; Z79.899 Other long term (current) drug therapy; K21.9 Gastro-esophageal reflux disease without esophagitis; Z87.440 Personal history of urinary (tract) infections; Z88.1 Allergy status to other antibiotic agents; M24.562 Contracture, left knee; H00.012 Hordeolum externum right lower eyelid; K59.00 Constipation, unspecified; K62.5 Hemorrhage of anus and rectum; L40.9 Psoriasis, unspecified; Z66 Do not resuscitate; D50.9 Iron deficiency anemia, unspecified; K29.70 Gastritis, unspecified, without bleeding
CPT/HCPCS: 36415; 70030-TC; 74018; 83735; 84100; 85025; 86580; 90686; 94640; A4217; A4663; G0008; Q9963; U0003

== ENCOUNTER 2021-05-21 | Inpatient (IN) | END 2022-05-20 23:59 | disposition still patient (30) | DRG 133 | DX: J96.11 Chronic respiratory failure with hypoxia (principal); I46.9 Cardiac arrest, cause unspecified; R40.3 Persistent vegetative state; G93.1 Anoxic brain damage, not elsewhere classified; D56.1 Beta thalassemia; B36.9 Superficial mycosis, unspecified; F32.A Depression, unspecified; G40.909 Epilepsy, unspecified, not intractable, without status epilepticus; B96.89 Other specified bacterial agents as the cause of diseases classified elsewhere; N39.0 Urinary tract infection, site not specified; K21.9 Gastro-esophageal reflux disease without esophagitis; K29.70 Gastritis, unspecified, without bleeding; K59.00 Constipation, unspecified; L27.0 Generalized skin eruption due to drugs and medicaments taken internally; L40.9 Psoriasis, unspecified; R13.10 Dysphagia, unspecified; Z20.822 Contact with and (suspected) exposure to COVID-19; Z66 Do not resuscitate; Z79.899 Other long term (current) drug therapy; Z86.19 Personal history of other infectious and parasitic diseases; Z87.440 Personal history of urinary (tract) infections; Z88.1 Allergy status to other antibiotic agents; Z93.0 Tracheostomy status; Z93.1 Gastrostomy status ==

== ENCOUNTER 2022-05-21 | Inpatient (IN) | payer MEDICAID ==
[~2022-05-21] VITALS: Ht 160 cm; Wt 46.3 kg
[2022-05-23] MEDS ORDERED: HYDROGEN PEROXIDE 3% 118 ML BOTTLE TP PRN (09:00)
[2022-05-23] MEDS ORDERED: BISACODYL 10 MG SUPP.RECT RC PRN (09:00)
[2022-05-23] MEDS ORDERED: REMEDY ESSENTIAL ZINC PASTE 113 GM TOP PRN (09:00)
[2022-05-23] MEDS ORDERED: ALBUTEROL SULFATE 1.25 MG/3 ML NEBU NEB PRN (09:00)
[2022-05-23] MEDS ORDERED: [UNRECOGNIZED DRUG - OTHER] RC PRN (09:00)
[2022-05-23] MEDS ORDERED: ACETAMINOPHEN 650 MG/20 ML UDC- SA PATIENTS-FEVER ONLY GT PRN (09:00)
[2022-05-23] MEDS: HYDROGEN PEROXIDE 3% 118 ML BOTTLE TP SCH ×2 (09:11→21:27)
[2022-05-23] MEDS: ACETAMINOPHEN 650 MG/20 ML UDC- SA PATIENTS-PAIN ONLY GT PRN (09:55)
[2022-05-23] MEDS: BACLOFEN 20 MG TABLET GT SCH ×4 (09:56→20:49)
[2022-05-23] MEDS: ACIDOPHILUS/BULGARICUS CHEW TAB GT SCH ×2 (09:56→20:49)
[2022-05-23] MEDS: SERTRALINE HCL 50 MG TABLET GT SCH (09:57)
[2022-05-23] MEDS: METOPROLOL TARTRATE 50 MG TABLET GT SCH ×2 (09:57→20:50)
[2022-05-23] MEDS: SIMETHICONE 80 MG TAB.CHEW GT SCH ×3 (09:57→17:00)
[2022-05-23] MEDS: REMEDY ESSENTIAL ZINC PASTE 113 GM TOP SCH ×2 (09:58→20:50)
[2022-05-23] MEDS: MINERAL OIL/PETROLATUM,WHITE 57 GM TUBE TP SCH (09:58)
[2022-05-23 10:30] VITALS: O2SAT 99
[2022-05-23 11:01] VITALS: TEMP 97.8
[2022-05-23] MEDS: ASCORBIC ACID 500 MG TABLET GT SCH (20:50)
[2022-05-23 21:10] VITALS: TEMP 97.6
[2022-05-23 21:25] VITALS: O2SAT 99
[2022-05-24] MEDS: OMEPRAZOLE 20 MG CAPSULE.DR GT SCH (05:56)
[2022-05-24] MEDS: REMEDY ESSENTIAL ZINC PASTE 113 GM TOP SCH ×2 (09:00→21:44)
[2022-05-24] MEDS: MINERAL OIL/PETROLATUM,WHITE 57 GM TUBE TP SCH (09:00)
[2022-05-24] MEDS: SIMETHICONE 80 MG TAB.CHEW GT SCH ×3 (09:00→17:04)
[2022-05-24] MEDS: SERTRALINE HCL 50 MG TABLET GT SCH (09:00)
[2022-05-24] MEDS: ACIDOPHILUS/BULGARICUS CHEW TAB GT SCH ×2 (09:00→21:43)
[2022-05-24] MEDS: HYDROGEN PEROXIDE 3% 118 ML BOTTLE TP SCH ×2 (09:00→19:39)
[2022-05-24] MEDS: METOPROLOL TARTRATE 50 MG TABLET GT SCH ×2 (09:00→21:44)
[2022-05-24] MEDS: BACLOFEN 20 MG TABLET GT SCH ×4 (09:00→21:43)
[2022-05-24 09:25] VITALS: O2SAT 99
[2022-05-24 20:00] VITALS: TEMP 97.7; O2SAT 99
[2022-05-24] MEDS: ASCORBIC ACID 500 MG TABLET GT SCH (21:44)
[2022-05-24] MEDS: MULTIVIT, IRON, MIN NO. 8, FA TABLET GT SCH (21:44)
[2022-05-25] MEDS: GLUCERNA 1.2 1000ML LIQUID GT PRN (02:19)
[2022-05-25] MEDS: OMEPRAZOLE 20 MG CAPSULE.DR GT SCH (05:19)
[2022-05-25 08:00] VITALS: TEMP 97
[2022-05-25] MEDS: ACIDOPHILUS/BULGARICUS CHEW TAB GT SCH ×2 (08:32→21:15)
[2022-05-25] MEDS: BACLOFEN 20 MG TABLET GT SCH ×4 (08:34→21:15)
[2022-05-25] MEDS: REMEDY ESSENTIAL ZINC PASTE 113 GM TOP SCH ×2 (08:34→21:15)
[2022-05-25] MEDS: SERTRALINE HCL 50 MG TABLET GT SCH (08:34)
[2022-05-25] MEDS: MINERAL OIL/PETROLATUM,WHITE 57 GM TUBE TP SCH (08:34)
[2022-05-25] MEDS: SIMETHICONE 80 MG TAB.CHEW GT SCH ×3 (08:34→16:45)
[2022-05-25] MEDS: METOPROLOL TARTRATE 50 MG TABLET GT SCH ×2 (08:34→21:15)
[2022-05-25] MEDS: KETOCONAZOLE 2% SHAMPOO 120 ML BOTTLE TP SCH (08:35)
[2022-05-25] MEDS ORDERED: KETOCONAZOLE 2% SHAMPOO 120 ML BOTTLE TP SCH (08:50)
[2022-05-25] MEDS: HYDROGEN PEROXIDE 3% 118 ML BOTTLE TP SCH ×2 (09:00→21:42)
[2022-05-25 10:30] VITALS: O2SAT 99
[2022-05-25 20:42] VITALS: TEMP 97.7
[2022-05-25] MEDS: ASCORBIC ACID 500 MG TABLET GT SCH (21:15)
[2022-05-26] MEDS: GLUCERNA 1.2 1000ML LIQUID GT PRN (04:35)
[2022-05-26] MEDS: OMEPRAZOLE 20 MG CAPSULE.DR GT SCH (05:26)
[2022-05-26 08:00] VITALS: TEMP 98.2
[2022-05-26 08:22] VITALS: O2SAT 99
[2022-05-26] MEDS: MINERAL OIL/PETROLATUM,WHITE 57 GM TUBE TP SCH (09:00)
[2022-05-26] MEDS: METOPROLOL TARTRATE 50 MG TABLET GT SCH ×3 (09:00→21:28)
[2022-05-26] MEDS: REMEDY ESSENTIAL ZINC PASTE 113 GM TOP SCH ×2 (09:00→21:28)
[2022-05-26] MEDS: HYDROGEN PEROXIDE 3% 118 ML BOTTLE TP SCH ×2 (09:23→21:56)
[2022-05-26] MEDS: BACLOFEN 20 MG TABLET GT SCH ×4 (09:40→21:27)
[2022-05-26] MEDS: ACIDOPHILUS/BULGARICUS CHEW TAB GT SCH ×2 (09:40→21:27)
[2022-05-26] MEDS: SIMETHICONE 80 MG TAB.CHEW GT SCH ×3 (09:42→17:12)
[2022-05-26] MEDS: SERTRALINE HCL 50 MG TABLET GT SCH (09:42)
[2022-05-26 10:03] VITALS: BP 113/72; TEMP 98.2; O2SAT 100
[2022-05-26 20:00] VITALS: TEMP 98.2
[2022-05-26] MEDS: ASCORBIC ACID 500 MG TABLET GT SCH (21:28)
[2022-05-26] MEDS: MULTIVIT, IRON, MIN NO. 8, FA TABLET GT SCH (21:28)
[2022-05-26 22:23] VITALS: O2SAT 99
[2022-05-27] MEDS: GLUCERNA 1.2 1000ML LIQUID GT PRN (04:31)
[2022-05-27] MEDS: OMEPRAZOLE 20 MG CAPSULE.DR GT SCH (05:36)
[2022-05-27 06:53] VITALS: O2SAT 99
[2022-05-27 08:01] VITALS: TEMP 97.7
[2022-05-27] MEDS: HYDROGEN PEROXIDE 3% 118 ML BOTTLE TP SCH ×2 (08:47→21:52)
[2022-05-27] MEDS: ACIDOPHILUS/BULGARICUS CHEW TAB GT SCH ×2 (09:00→21:21)
[2022-05-27] MEDS: SERTRALINE HCL 50 MG TABLET GT SCH (09:00)
[2022-05-27] MEDS: SIMETHICONE 80 MG TAB.CHEW GT SCH ×3 (09:00→17:15)
[2022-05-27] MEDS: METOPROLOL TARTRATE 50 MG TABLET GT SCH ×2 (09:00→21:21)
[2022-05-27] MEDS: BACLOFEN 20 MG TABLET GT SCH ×4 (09:00→21:21)
[2022-05-27] MEDS: MINERAL OIL/PETROLATUM,WHITE 57 GM TUBE TP SCH (09:00)
[2022-05-27] MEDS: REMEDY ESSENTIAL ZINC PASTE 113 GM TOP SCH ×2 (09:00→21:21)
[2022-05-27 16:52] VITALS: O2SAT 99
[2022-05-27 20:43] VITALS: TEMP 97.7
[2022-05-27] MEDS: ASCORBIC ACID 500 MG TABLET GT SCH (21:21)
[2022-05-27 21:52] VITALS: O2SAT 99
[2022-05-28] MEDS: OMEPRAZOLE 20 MG CAPSULE.DR GT SCH (05:41)
[2022-05-28] MEDS: GLUCERNA 1.2 1000ML LIQUID GT PRN (05:41)
[2022-05-28 08:00] VITALS: TEMP 98
[2022-05-28] MEDS: ACIDOPHILUS/BULGARICUS CHEW TAB GT SCH ×2 (08:17→21:00)
[2022-05-28] MEDS: METOPROLOL TARTRATE 50 MG TABLET GT SCH ×2 (08:17→21:00)
[2022-05-28] MEDS: SERTRALINE HCL 50 MG TABLET GT SCH (08:17)
[2022-05-28] MEDS: BACLOFEN 20 MG TABLET GT SCH ×4 (08:17→21:00)
[2022-05-28] MEDS: SIMETHICONE 80 MG TAB.CHEW GT SCH ×3 (08:17→16:45)
[2022-05-28] MEDS: MINERAL OIL/PETROLATUM,WHITE 57 GM TUBE TP SCH (08:18)
[2022-05-28] MEDS: REMEDY ESSENTIAL ZINC PASTE 113 GM TOP SCH ×2 (08:18→21:00)
[2022-05-28 09:20] VITALS: O2SAT 99
[2022-05-28] MEDS: HYDROGEN PEROXIDE 3% 118 ML BOTTLE TP SCH ×2 (09:31→21:00)
[2022-05-28 20:00] VITALS: TEMP 98
[2022-05-28] MEDS: MULTIVIT, IRON, MIN NO. 8, FA TABLET GT SCH (21:00)
[2022-05-28] MEDS: ASCORBIC ACID 500 MG TABLET GT SCH (21:00)
[2022-05-29] MEDS: OMEPRAZOLE 20 MG CAPSULE.DR GT SCH (06:00)
[2022-05-29] MEDS: GLUCERNA 1.2 1000ML LIQUID GT PRN (07:28)
[2022-05-29 07:54] VITALS: TEMP 97.7
[2022-05-29] MEDS: HYDROGEN PEROXIDE 3% 118 ML BOTTLE TP SCH ×2 (09:00→21:00)
[2022-05-29 09:35] VITALS: O2SAT 99
[2022-05-29] MEDS: ACIDOPHILUS/BULGARICUS CHEW TAB GT SCH ×2 (09:41→21:00)
[2022-05-29] MEDS: BACLOFEN 20 MG TABLET GT SCH ×4 (09:42→21:00)
[2022-05-29] MEDS: METOPROLOL TARTRATE 50 MG TABLET GT SCH ×2 (09:43→21:00)
[2022-05-29] MEDS: KETOCONAZOLE 2% SHAMPOO 120 ML BOTTLE TP SCH (09:44)
[2022-05-29] MEDS: SERTRALINE HCL 50 MG TABLET GT SCH (09:44)
[2022-05-29] MEDS: MINERAL OIL/PETROLATUM,WHITE 57 GM TUBE TP SCH (09:44)
[2022-05-29] MEDS: REMEDY ESSENTIAL ZINC PASTE 113 GM TOP SCH ×2 (09:44→21:00)
[2022-05-29] MEDS: SIMETHICONE 80 MG TAB.CHEW GT SCH ×3 (09:46→16:33)
[2022-05-29 20:00] VITALS: TEMP 97.7
[2022-05-29] MEDS: ASCORBIC ACID 500 MG TABLET GT SCH (21:00)
[2022-05-29 21:10] VITALS: O2SAT 99
[2022-05-30] MEDS: GLUCERNA 1.2 1000ML LIQUID GT PRN (06:15)
[2022-05-30] MEDS: OMEPRAZOLE 20 MG CAPSULE.DR GT SCH (06:15)
[2022-05-30] MEDS: HYDROGEN PEROXIDE 3% 118 ML BOTTLE TP SCH ×2 (07:45→20:15)
[2022-05-30 08:00] VITALS: TEMP 98
[2022-05-30] MEDS: SERTRALINE HCL 50 MG TABLET GT SCH (08:28)
[2022-05-30] MEDS: SIMETHICONE 80 MG TAB.CHEW GT SCH ×3 (08:28→17:59)
[2022-05-30] MEDS: BACLOFEN 20 MG TABLET GT SCH ×4 (08:28→21:08)
[2022-05-30] MEDS: METOPROLOL TARTRATE 50 MG TABLET GT SCH ×2 (08:28→21:08)
[2022-05-30] MEDS: ACIDOPHILUS/BULGARICUS CHEW TAB GT SCH ×2 (08:28→21:08)
[2022-05-30] MEDS: MINERAL OIL/PETROLATUM,WHITE 57 GM TUBE TP SCH (08:29)
[2022-05-30] MEDS: REMEDY ESSENTIAL ZINC PASTE 113 GM TOP SCH ×2 (08:29→21:09)
[2022-05-30 10:00] VITALS: O2SAT 99
[2022-05-30 20:00] VITALS: TEMP 97.9
[2022-05-30] MEDS: MULTIVIT, IRON, MIN NO. 8, FA TABLET GT SCH (21:09)
[2022-05-30] MEDS: ASCORBIC ACID 500 MG TABLET GT SCH (21:09)
[2022-05-30 21:13] VITALS: O2SAT 99
[2022-05-31] MEDS: GLUCERNA 1.2 1000ML LIQUID GT PRN (06:00)
[2022-05-31] MEDS: OMEPRAZOLE 20 MG CAPSULE.DR GT SCH (06:45)
[2022-05-31 08:00] VITALS: TEMP 97.8
[2022-05-31] MEDS: ACIDOPHILUS/BULGARICUS CHEW TAB GT SCH ×2 (08:18→20:52)
[2022-05-31] MEDS: BACLOFEN 20 MG TABLET GT SCH ×4 (08:18→20:52)
[2022-05-31] MEDS: METOPROLOL TARTRATE 50 MG TABLET GT SCH ×2 (08:20→20:53)
[2022-05-31] MEDS: REMEDY ESSENTIAL ZINC PASTE 113 GM TOP SCH ×2 (08:20→20:53)
[2022-05-31] MEDS: MINERAL OIL/PETROLATUM,WHITE 57 GM TUBE TP SCH (08:20)
[2022-05-31] MEDS: SIMETHICONE 80 MG TAB.CHEW GT SCH ×3 (08:20→17:49)
[2022-05-31] MEDS: SERTRALINE HCL 50 MG TABLET GT SCH (08:20)
[2022-05-31] MEDS: HYDROGEN PEROXIDE 3% 118 ML BOTTLE TP SCH ×2 (09:14→21:12)
[2022-05-31 10:00] VITALS: O2SAT 99
[2022-05-31] MEDS: ASCORBIC ACID 500 MG TABLET GT SCH (20:53)
[2022-05-31 21:00] VITALS: TEMP 98
[2022-05-31 21:01] VITALS: O2SAT 99
[2022-06-01] MEDS: GLUCERNA 1.2 1000ML LIQUID GT PRN (05:51)
[2022-06-01] MEDS: OMEPRAZOLE 20 MG CAPSULE.DR GT SCH (05:51)
[2022-06-01 08:03] VITALS: TEMP 98.4
[2022-06-01 08:32] VITALS: O2SAT 99
[2022-06-01] MEDS: HYDROGEN PEROXIDE 3% 118 ML BOTTLE TP SCH ×2 (08:32→21:00)
[2022-06-01] MEDS: SERTRALINE HCL 50 MG TABLET GT SCH (09:30)
[2022-06-01] MEDS: ACIDOPHILUS/BULGARICUS CHEW TAB GT SCH ×2 (09:30→21:03)
[2022-06-01] MEDS: SIMETHICONE 80 MG TAB.CHEW GT SCH ×3 (09:30→17:18)
[2022-06-01] MEDS: METOPROLOL TARTRATE 50 MG TABLET GT SCH ×2 (09:30→21:04)
[2022-06-01] MEDS: BACLOFEN 20 MG TABLET GT SCH ×4 (09:30→21:03)
[2022-06-01] MEDS: MINERAL OIL/PETROLATUM,WHITE 57 GM TUBE TP SCH (09:30)
[2022-06-01] MEDS: KETOCONAZOLE 2% SHAMPOO 120 ML BOTTLE TP SCH (09:30)
[2022-06-01] MEDS: REMEDY ESSENTIAL ZINC PASTE 113 GM TOP SCH ×2 (09:30→21:04)
[2022-06-01 16:46] VITALS: O2SAT 99
[2022-06-01 20:54] VITALS: TEMP 97.8
[2022-06-01] MEDS: MULTIVIT, IRON, MIN NO. 8, FA TABLET GT SCH (21:04)
[2022-06-01] MEDS: ASCORBIC ACID 500 MG TABLET GT SCH (21:04)
[2022-06-02] MEDS: GLUCERNA 1.2 1000ML LIQUID GT PRN (04:39)
[2022-06-02] MEDS: ACETAMINOPHEN 650 MG/20 ML UDC- SA PATIENTS-PAIN ONLY GT PRN (05:00)
[2022-06-02] MEDS: OMEPRAZOLE 20 MG CAPSULE.DR GT SCH (05:46)
[2022-06-02] MEDS: HYDROGEN PEROXIDE 3% 118 ML BOTTLE TP SCH ×2 (08:08→21:20)
[2022-06-02 08:09] VITALS: TEMP 98.1
[2022-06-02] MEDS: METOPROLOL TARTRATE 50 MG TABLET GT SCH ×2 (09:20→21:34)
[2022-06-02] MEDS: SIMETHICONE 80 MG TAB.CHEW GT SCH ×3 (09:20→17:09)
[2022-06-02] MEDS: SERTRALINE HCL 50 MG TABLET GT SCH (09:20)
[2022-06-02] MEDS: ACIDOPHILUS/BULGARICUS CHEW TAB GT SCH ×2 (09:20→21:33)
[2022-06-02] MEDS: REMEDY ESSENTIAL ZINC PASTE 113 GM TOP SCH ×2 (09:20→21:34)
[2022-06-02] MEDS: BACLOFEN 20 MG TABLET GT SCH ×4 (09:20→21:33)
[2022-06-02] MEDS: MINERAL OIL/PETROLATUM,WHITE 57 GM TUBE TP SCH (09:20)
[2022-06-02 10:50] VITALS: O2SAT 99
[2022-06-02] MEDS: ASCORBIC ACID 500 MG TABLET GT SCH (21:34)
[2022-06-02 22:11] VITALS: O2SAT 99
[2022-06-03] MEDS: OMEPRAZOLE 20 MG CAPSULE.DR GT SCH (06:59)
[2022-06-03 07:55] VITALS: TEMP 97.7
[2022-06-03 08:12] VITALS: O2SAT 99
[2022-06-03] MEDS: HYDROGEN PEROXIDE 3% 118 ML BOTTLE TP SCH ×2 (08:12→21:15)
[2022-06-03] MEDS: BACLOFEN 20 MG TABLET GT SCH ×4 (09:30→21:00)
[2022-06-03] MEDS: ACIDOPHILUS/BULGARICUS CHEW TAB GT SCH ×2 (09:30→21:00)
[2022-06-03] MEDS: SIMETHICONE 80 MG TAB.CHEW GT SCH ×3 (09:31→17:33)
[2022-06-03] MEDS: METOPROLOL TARTRATE 50 MG TABLET GT SCH ×2 (09:31→21:00)
[2022-06-03] MEDS: MINERAL OIL/PETROLATUM,WHITE 57 GM TUBE TP SCH (09:32)
[2022-06-03] MEDS: SERTRALINE HCL 50 MG TABLET GT SCH (09:32)
[2022-06-03] MEDS: REMEDY ESSENTIAL ZINC PASTE 113 GM TOP SCH ×2 (09:32→21:00)
[2022-06-03] MEDS: GLUCERNA 1.2 1000ML LIQUID GT PRN (12:56)
[2022-06-03 17:05] VITALS: O2SAT 99
[2022-06-03 20:23] VITALS: TEMP 97.7
[2022-06-03] MEDS: MULTIVIT, IRON, MIN NO. 8, FA TABLET GT SCH (21:00)
[2022-06-03] MEDS: ASCORBIC ACID 500 MG TABLET GT SCH (21:00)
[2022-06-03 21:33] VITALS: O2SAT 99
[2022-06-04] MEDS: OMEPRAZOLE 20 MG CAPSULE.DR GT SCH (06:00)
[2022-06-04 08:00] VITALS: TEMP 97.9
[2022-06-04] MEDS: BACLOFEN 20 MG TABLET GT SCH ×4 (09:07→20:39)
[2022-06-04] MEDS: ACIDOPHILUS/BULGARICUS CHEW TAB GT SCH ×2 (09:07→20:39)
[2022-06-04] MEDS: MINERAL OIL/PETROLATUM,WHITE 57 GM TUBE TP SCH (09:08)
[2022-06-04] MEDS: SIMETHICONE 80 MG TAB.CHEW GT SCH ×3 (09:08→17:15)
[2022-06-04] MEDS: REMEDY ESSENTIAL ZINC PASTE 113 GM TOP SCH ×2 (09:08→20:40)
[2022-06-04] MEDS: SERTRALINE HCL 50 MG TABLET GT SCH (09:08)
[2022-06-04] MEDS: METOPROLOL TARTRATE 50 MG TABLET GT SCH ×2 (09:08→20:39)
[2022-06-04 09:20] VITALS: O2SAT 99
[2022-06-04] MEDS: HYDROGEN PEROXIDE 3% 118 ML BOTTLE TP SCH ×2 (09:32→21:47)
[2022-06-04] MEDS: GLUCERNA 1.2 1000ML LIQUID GT PRN (17:15)
[2022-06-04 20:00] VITALS: TEMP 97.6
[2022-06-04] MEDS: ASCORBIC ACID 500 MG TABLET GT SCH (20:40)
[2022-06-04 22:26] VITALS: O2SAT 99
[2022-06-05] MEDS: OMEPRAZOLE 20 MG CAPSULE.DR GT SCH (05:33)
[2022-06-05] MEDS: HYDROGEN PEROXIDE 3% 118 ML BOTTLE TP SCH ×2 (07:27→21:25)
[2022-06-05 08:00] VITALS: TEMP 98.6
[2022-06-05] MEDS: REMEDY ESSENTIAL ZINC PASTE 113 GM TOP SCH ×2 (09:50→21:36)
[2022-06-05] MEDS: METOPROLOL TARTRATE 50 MG TABLET GT SCH ×2 (09:50→21:36)
[2022-06-05] MEDS: SIMETHICONE 80 MG TAB.CHEW GT SCH ×3 (09:50→16:52)
[2022-06-05] MEDS: MINERAL OIL/PETROLATUM,WHITE 57 GM TUBE TP SCH (09:50)
[2022-06-05] MEDS: SERTRALINE HCL 50 MG TABLET GT SCH (09:50)
[2022-06-05] MEDS: KETOCONAZOLE 2% SHAMPOO 120 ML BOTTLE TP SCH (09:50)
[2022-06-05] MEDS: BACLOFEN 20 MG TABLET GT SCH ×4 (09:50→21:35)
[2022-06-05] MEDS: ACIDOPHILUS/BULGARICUS CHEW TAB GT SCH ×2 (09:50→21:35)
[2022-06-05 10:30] VITALS: O2SAT 99
[2022-06-05] MEDS: GLUCERNA 1.2 1000ML LIQUID GT PRN (16:55)
[2022-06-05 20:18] VITALS: TEMP 98.9
[2022-06-05 21:15] VITALS: O2SAT 99
[2022-06-05] MEDS: MULTIVIT, IRON, MIN NO. 8, FA TABLET GT SCH (21:36)
[2022-06-05] MEDS: ASCORBIC ACID 500 MG TABLET GT SCH (21:36)
[2022-06-06] MEDS: OMEPRAZOLE 20 MG CAPSULE.DR GT SCH (05:52)
[2022-06-06] MEDS: HYDROGEN PEROXIDE 3% 118 ML BOTTLE TP SCH ×2 (07:24→19:29)
[2022-06-06] MEDS: ACIDOPHILUS/BULGARICUS CHEW TAB GT SCH ×2 (08:19→21:41)
[2022-06-06] MEDS: BACLOFEN 20 MG TABLET GT SCH ×4 (08:19→21:41)
[2022-06-06] MEDS: MINERAL OIL/PETROLATUM,WHITE 57 GM TUBE TP SCH (08:20)
[2022-06-06] MEDS: REMEDY ESSENTIAL ZINC PASTE 113 GM TOP SCH ×2 (08:20→21:42)
[2022-06-06] MEDS: SIMETHICONE 80 MG TAB.CHEW GT SCH ×3 (08:20→17:17)
[2022-06-06] MEDS: SERTRALINE HCL 50 MG TABLET GT SCH (08:20)
[2022-06-06] MEDS: METOPROLOL TARTRATE 50 MG TABLET GT SCH ×2 (08:20→21:41)
[2022-06-06 10:30] VITALS: O2SAT 98
[2022-06-06 11:17] VITALS: TEMP 98
[2022-06-06 20:11] VITALS: TEMP 98.1
[2022-06-06 21:00] VITALS: O2SAT 99
[2022-06-06] MEDS: ASCORBIC ACID 500 MG TABLET GT SCH (21:41)
[2022-06-06] MEDS: GLUCERNA 1.2 1000ML LIQUID GT PRN (23:28)
[2022-06-07] MEDS: OMEPRAZOLE 20 MG CAPSULE.DR GT SCH (06:01)
[2022-06-07] MEDS: ACIDOPHILUS/BULGARICUS CHEW TAB GT SCH ×2 (08:13→21:15)
[2022-06-07] MEDS: BACLOFEN 20 MG TABLET GT SCH ×4 (08:13→21:15)
[2022-06-07] MEDS: SIMETHICONE 80 MG TAB.CHEW GT SCH ×3 (08:14→16:47)
[2022-06-07] MEDS: METOPROLOL TARTRATE 50 MG TABLET GT SCH ×2 (08:14→21:15)
[2022-06-07] MEDS: REMEDY ESSENTIAL ZINC PASTE 113 GM TOP SCH ×2 (08:15→21:15)
[2022-06-07] MEDS: MINERAL OIL/PETROLATUM,WHITE 57 GM TUBE TP SCH (08:15)
[2022-06-07] MEDS: SERTRALINE HCL 50 MG TABLET GT SCH (08:15)
[2022-06-07] MEDS: HYDROGEN PEROXIDE 3% 118 ML BOTTLE TP SCH ×2 (09:27→21:26)
[2022-06-07 09:30] VITALS: O2SAT 99
[2022-06-07 11:15] VITALS: TEMP 97
[2022-06-07 20:17] VITALS: TEMP 97.8
[2022-06-07 20:50] VITALS: O2SAT 99
[2022-06-07] MEDS: ASCORBIC ACID 500 MG TABLET GT SCH (21:15)
[2022-06-07] MEDS: MULTIVIT, IRON, MIN NO. 8, FA TABLET GT SCH (21:15)
[2022-06-08] MEDS: GLUCERNA 1.2 1000ML LIQUID GT PRN (03:06)
[2022-06-08] MEDS: OMEPRAZOLE 20 MG CAPSULE.DR GT SCH (05:15)
[2022-06-08] MEDS: HYDROGEN PEROXIDE 3% 118 ML BOTTLE TP SCH ×2 (07:31→19:15)
[2022-06-08 08:00] VITALS: TEMP 97.8
[2022-06-08] MEDS: SIMETHICONE 80 MG TAB.CHEW GT SCH ×3 (08:55→17:17)
[2022-06-08] MEDS: SERTRALINE HCL 50 MG TABLET GT SCH (08:55)
[2022-06-08] MEDS: METOPROLOL TARTRATE 50 MG TABLET GT SCH ×2 (08:55→21:06)
[2022-06-08] MEDS: BACLOFEN 20 MG TABLET GT SCH ×4 (08:55→21:06)
[2022-06-08] MEDS: KETOCONAZOLE 2% SHAMPOO 120 ML BOTTLE TP SCH (08:55)
[2022-06-08] MEDS: REMEDY ESSENTIAL ZINC PASTE 113 GM TOP SCH ×2 (08:55→21:07)
[2022-06-08] MEDS: ACIDOPHILUS/BULGARICUS CHEW TAB GT SCH ×2 (08:55→21:06)
[2022-06-08] MEDS: MINERAL OIL/PETROLATUM,WHITE 57 GM TUBE TP SCH (08:55)
[2022-06-08 10:40] VITALS: O2SAT 98
[2022-06-08 20:00] VITALS: TEMP 98.8; O2SAT 99
[2022-06-08] MEDS: ASCORBIC ACID 500 MG TABLET GT SCH (21:07)
[2022-06-09] MEDS: OMEPRAZOLE 20 MG CAPSULE.DR GT SCH (05:29)
[2022-06-09 08:00] VITALS: TEMP 97.5
[2022-06-09] MEDS: BACLOFEN 20 MG TABLET GT SCH ×4 (09:00→21:38)
[2022-06-09 10:00] VITALS: O2SAT 97
[2022-06-09] MEDS: MINERAL OIL/PETROLATUM,WHITE 57 GM TUBE TP SCH (10:00)
[2022-06-09] MEDS: SIMETHICONE 80 MG TAB.CHEW GT SCH ×3 (10:00→17:59)
[2022-06-09] MEDS: REMEDY ESSENTIAL ZINC PASTE 113 GM TOP SCH ×2 (10:00→21:38)
[2022-06-09] MEDS: HYDROGEN PEROXIDE 3% 118 ML BOTTLE TP SCH ×2 (10:00→19:14)
[2022-06-09] MEDS: SERTRALINE HCL 50 MG TABLET GT SCH (10:00)
[2022-06-09] MEDS: ACIDOPHILUS/BULGARICUS CHEW TAB GT SCH ×2 (10:00→21:38)
[2022-06-09] MEDS: METOPROLOL TARTRATE 50 MG TABLET GT SCH ×2 (10:00→21:38)
[2022-06-09] MEDS: GLUCERNA 1.2 1000ML LIQUID GT PRN (10:03)
[2022-06-09 19:45] VITALS: O2SAT 99
[2022-06-09 20:00] VITALS: TEMP 98.8
[2022-06-09] MEDS: MULTIVIT, IRON, MIN NO. 8, FA TABLET GT SCH (21:38)
[2022-06-09] MEDS: ASCORBIC ACID 500 MG TABLET GT SCH (21:38)
[2022-06-10] MEDS: OMEPRAZOLE 20 MG CAPSULE.DR GT SCH (05:32)
[2022-06-10 07:00] VITALS: O2SAT 97
[2022-06-10 07:49] VITALS: TEMP 97.5
[2022-06-10] MEDS: SERTRALINE HCL 50 MG TABLET GT SCH (09:39)
[2022-06-10] MEDS: REMEDY ESSENTIAL ZINC PASTE 113 GM TOP SCH ×2 (09:39→21:02)
[2022-06-10] MEDS: SIMETHICONE 80 MG TAB.CHEW GT SCH ×3 (09:39→17:08)
[2022-06-10] MEDS: MINERAL OIL/PETROLATUM,WHITE 57 GM TUBE TP SCH (09:39)
[2022-06-10] MEDS: METOPROLOL TARTRATE 50 MG TABLET GT SCH ×2 (09:39→21:02)
[2022-06-10] MEDS: ACIDOPHILUS/BULGARICUS CHEW TAB GT SCH ×2 (09:39→21:01)
[2022-06-10] MEDS: BACLOFEN 20 MG TABLET GT SCH ×4 (09:39→21:01)
[2022-06-10] MEDS: GLUCERNA 1.2 1000ML LIQUID GT PRN (13:30)
[2022-06-10] MEDS: HYDROGEN PEROXIDE 3% 118 ML BOTTLE TP SCH (19:05)
[2022-06-10 19:45] VITALS: O2SAT 99
[2022-06-10 20:15] VITALS: TEMP 97.7
[2022-06-10] MEDS: ASCORBIC ACID 500 MG TABLET GT SCH (21:02)
[2022-06-11] MEDS: OMEPRAZOLE 20 MG CAPSULE.DR GT SCH (05:40)
[2022-06-11 08:00] VITALS: TEMP 97.8
[2022-06-11] MEDS: METOPROLOL TARTRATE 50 MG TABLET GT SCH ×2 (09:15→21:00)
[2022-06-11] MEDS: SIMETHICONE 80 MG TAB.CHEW GT SCH ×3 (09:15→17:55)
[2022-06-11] MEDS: ACIDOPHILUS/BULGARICUS CHEW TAB GT SCH ×2 (09:15→21:00)
[2022-06-11] MEDS: MINERAL OIL/PETROLATUM,WHITE 57 GM TUBE TP SCH (09:15)
[2022-06-11] MEDS: BACLOFEN 20 MG TABLET GT SCH ×4 (09:15→21:00)
[2022-06-11] MEDS: REMEDY ESSENTIAL ZINC PASTE 113 GM TOP SCH ×2 (09:15→21:00)
[2022-06-11] MEDS: SERTRALINE HCL 50 MG TABLET GT SCH (09:15)
[2022-06-11 09:30] VITALS: O2SAT 97
[2022-06-11] MEDS: HYDROGEN PEROXIDE 3% 118 ML BOTTLE TP SCH ×2 (09:47→21:16)
[2022-06-11 20:02] VITALS: TEMP 97.7
[2022-06-11] MEDS: MULTIVIT, IRON, MIN NO. 8, FA TABLET GT SCH (21:00)
[2022-06-11] MEDS: ASCORBIC ACID 500 MG TABLET GT SCH (21:00)
[2022-06-11 22:33] VITALS: O2SAT 99
[2022-06-12] MEDS: OMEPRAZOLE 20 MG CAPSULE.DR GT SCH (05:24)
[2022-06-12 07:52] VITALS: TEMP 98.7
[2022-06-12] MEDS: ACIDOPHILUS/BULGARICUS CHEW TAB GT SCH ×2 (08:37→21:00)
[2022-06-12] MEDS: BACLOFEN 20 MG TABLET GT SCH ×4 (08:38→21:00)
[2022-06-12] MEDS: MINERAL OIL/PETROLATUM,WHITE 57 GM TUBE TP SCH (08:39)
[2022-06-12] MEDS: SERTRALINE HCL 50 MG TABLET GT SCH (08:39)
[2022-06-12] MEDS: KETOCONAZOLE 2% SHAMPOO 120 ML BOTTLE TP SCH (08:39)
[2022-06-12] MEDS: REMEDY ESSENTIAL ZINC PASTE 113 GM TOP SCH ×2 (08:39→21:00)
[2022-06-12] MEDS: METOPROLOL TARTRATE 50 MG TABLET GT SCH ×2 (08:39→21:00)
[2022-06-12] MEDS: SIMETHICONE 80 MG TAB.CHEW GT SCH ×3 (08:39→16:40)
[2022-06-12 09:40] VITALS: O2SAT 97
[2022-06-12] MEDS: HYDROGEN PEROXIDE 3% 118 ML BOTTLE TP SCH ×2 (09:43→21:00)
[2022-06-12] MEDS: ACETAMINOPHEN 650 MG/20 ML UDC- SA PATIENTS-PAIN ONLY GT PRN (16:49)
[2022-06-12] MEDS: GLUCERNA 1.2 1000ML LIQUID GT PRN (17:08)
[2022-06-12 20:00] VITALS: TEMP 97.9
[2022-06-12 20:15] VITALS: O2SAT 99
[2022-06-12] MEDS: ASCORBIC ACID 500 MG TABLET GT SCH (21:00)
[2022-06-13] MEDS: OMEPRAZOLE 20 MG CAPSULE.DR GT SCH (06:05)
[2022-06-13] MEDS: HYDROGEN PEROXIDE 3% 118 ML BOTTLE TP SCH ×2 (07:19→21:00)
[2022-06-13] MEDS: BACLOFEN 20 MG TABLET GT SCH ×4 (08:39→20:45)
[2022-06-13] MEDS: SERTRALINE HCL 50 MG TABLET GT SCH (08:39)
[2022-06-13] MEDS: METOPROLOL TARTRATE 50 MG TABLET GT SCH ×2 (08:39→20:46)
[2022-06-13] MEDS: ACIDOPHILUS/BULGARICUS CHEW TAB GT SCH ×2 (08:39→20:45)
[2022-06-13] MEDS: SIMETHICONE 80 MG TAB.CHEW GT SCH ×3 (08:39→16:34)
[2022-06-13] MEDS: MINERAL OIL/PETROLATUM,WHITE 57 GM TUBE TP SCH (08:40)
[2022-06-13] MEDS: REMEDY ESSENTIAL ZINC PASTE 113 GM TOP SCH ×2 (08:40→20:50)
[2022-06-13 10:25] VITALS: O2SAT 99
[2022-06-13 11:10] VITALS: TEMP 97.8
[2022-06-13] MEDS: ACETAMINOPHEN 650 MG/20 ML UDC- SA PATIENTS-PAIN ONLY GT PRN (16:36)
[2022-06-13] MEDS: GLUCERNA 1.2 1000ML LIQUID GT PRN (16:52)
[2022-06-13 20:00] VITALS: TEMP 97.8
[2022-06-13] MEDS: MULTIVIT, IRON, MIN NO. 8, FA TABLET GT SCH (20:46)
[2022-06-13] MEDS: ASCORBIC ACID 500 MG TABLET GT SCH (20:50)
[2022-06-13 21:30] VITALS: O2SAT 99
[2022-06-14] MEDS: OMEPRAZOLE 20 MG CAPSULE.DR GT SCH (05:55)
[2022-06-14 07:29] VITALS: TEMP 97.8
[2022-06-14] MEDS: HYDROGEN PEROXIDE 3% 118 ML BOTTLE TP SCH ×2 (09:10→19:17)
[2022-06-14] MEDS: BACLOFEN 20 MG TABLET GT SCH ×4 (09:28→21:21)
[2022-06-14] MEDS: ACIDOPHILUS/BULGARICUS CHEW TAB GT SCH ×2 (09:28→21:21)
[2022-06-14] MEDS: SIMETHICONE 80 MG TAB.CHEW GT SCH ×3 (09:31→16:50)
[2022-06-14] MEDS: REMEDY ESSENTIAL ZINC PASTE 113 GM TOP SCH ×2 (09:31→21:22)
[2022-06-14] MEDS: MINERAL OIL/PETROLATUM,WHITE 57 GM TUBE TP SCH (09:31)
[2022-06-14] MEDS: METOPROLOL TARTRATE 50 MG TABLET GT SCH ×2 (09:31→21:22)
[2022-06-14] MEDS: SERTRALINE HCL 50 MG TABLET GT SCH (09:31)
[2022-06-14 10:00] VITALS: O2SAT 99
[2022-06-14 17:13] VITALS: O2SAT 97
[2022-06-14 19:22] VITALS: O2SAT 99
[2022-06-14 20:00] VITALS: TEMP 98
[2022-06-14] MEDS: ASCORBIC ACID 500 MG TABLET GT SCH (21:22)
[2022-06-14] MEDS: GLUCERNA 1.2 1000ML LIQUID GT PRN (23:16)
[2022-06-15] MEDS: OMEPRAZOLE 20 MG CAPSULE.DR GT SCH (06:28)
[2022-06-15] MEDS: HYDROGEN PEROXIDE 3% 118 ML BOTTLE TP SCH ×2 (08:12→21:00)
[2022-06-15] MEDS: SERTRALINE HCL 50 MG TABLET GT SCH (09:43)
[2022-06-15] MEDS: MINERAL OIL/PETROLATUM,WHITE 57 GM TUBE TP SCH (09:43)
[2022-06-15] MEDS: ACIDOPHILUS/BULGARICUS CHEW TAB GT SCH ×2 (09:43→20:47)
[2022-06-15] MEDS: SIMETHICONE 80 MG TAB.CHEW GT SCH ×3 (09:43→17:11)
[2022-06-15] MEDS: KETOCONAZOLE 2% SHAMPOO 120 ML BOTTLE TP SCH (09:43)
[2022-06-15] MEDS: BACLOFEN 20 MG TABLET GT SCH ×4 (09:43→20:47)
[2022-06-15] MEDS: METOPROLOL TARTRATE 50 MG TABLET GT SCH ×2 (09:43→20:48)
[2022-06-15] MEDS: REMEDY ESSENTIAL ZINC PASTE 113 GM TOP SCH ×2 (09:43→20:48)
[2022-06-15 15:31] VITALS: O2SAT 99
[2022-06-15 20:00] VITALS: TEMP 97.6
[2022-06-15] MEDS: MULTIVIT, IRON, MIN NO. 8, FA TABLET GT SCH (20:48)
[2022-06-15] MEDS: ASCORBIC ACID 500 MG TABLET GT SCH (20:48)
[2022-06-16] MEDS: GLUCERNA 1.2 1000ML LIQUID GT PRN (03:45)
[2022-06-16] MEDS: OMEPRAZOLE 20 MG CAPSULE.DR GT SCH (05:23)
[2022-06-16 07:47] VITALS: TEMP 98.3
[2022-06-16 09:05] VITALS: O2SAT 99
[2022-06-16] MEDS: HYDROGEN PEROXIDE 3% 118 ML BOTTLE TP SCH ×2 (09:05→21:25)
[2022-06-16] MEDS: BACLOFEN 20 MG TABLET GT SCH ×4 (09:19→21:00)
[2022-06-16] MEDS: ACIDOPHILUS/BULGARICUS CHEW TAB GT SCH ×2 (09:19→21:00)
[2022-06-16] MEDS: REMEDY ESSENTIAL ZINC PASTE 113 GM TOP SCH ×2 (09:20→21:00)
[2022-06-16] MEDS: METOPROLOL TARTRATE 50 MG TABLET GT SCH ×2 (09:20→21:00)
[2022-06-16] MEDS: MINERAL OIL/PETROLATUM,WHITE 57 GM TUBE TP SCH (09:20)
[2022-06-16] MEDS: SERTRALINE HCL 50 MG TABLET GT SCH (09:20)
[2022-06-16] MEDS: SIMETHICONE 80 MG TAB.CHEW GT SCH ×3 (09:20→17:13)
[2022-06-16 20:00] VITALS: TEMP 97.6
[2022-06-16] MEDS: ASCORBIC ACID 500 MG TABLET GT SCH (21:00)
[2022-06-16 22:04] VITALS: O2SAT 99
[2022-06-17] MEDS: OMEPRAZOLE 20 MG CAPSULE.DR GT SCH (06:57)
[2022-06-17 07:53] VITALS: TEMP 97.9
[2022-06-17] MEDS: ACIDOPHILUS/BULGARICUS CHEW TAB GT SCH ×2 (09:05→21:59)
[2022-06-17] MEDS: METOPROLOL TARTRATE 50 MG TABLET GT SCH ×2 (09:08→22:00)
[2022-06-17] MEDS: BACLOFEN 20 MG TABLET GT SCH ×4 (09:08→21:59)
[2022-06-17] MEDS: HYDROGEN PEROXIDE 3% 118 ML BOTTLE TP SCH ×2 (09:08→21:17)
[2022-06-17] MEDS: SERTRALINE HCL 50 MG TABLET GT SCH (09:09)
[2022-06-17] MEDS: REMEDY ESSENTIAL ZINC PASTE 113 GM TOP SCH ×2 (09:09→21:00)
[2022-06-17] MEDS: MINERAL OIL/PETROLATUM,WHITE 57 GM TUBE TP SCH (09:09)
[2022-06-17] MEDS: SIMETHICONE 80 MG TAB.CHEW GT SCH ×3 (09:09→17:45)
[2022-06-17 10:40] VITALS: O2SAT 98
[2022-06-17] MEDS ORDERED: REMEDY ESSENTIAL ZINC PASTE 113 GM TP PRN (16:30)
[2022-06-17] MEDS ORDERED: NYSTATIN CREAM 30 GM TUBE TP PRN (16:30)
[2022-06-17 20:00] VITALS: TEMP 98.7
[2022-06-17] MEDS: ASCORBIC ACID 500 MG TABLET GT SCH (21:00)
[2022-06-17] MEDS: REMEDY ESSENTIAL ZINC PASTE 113 GM TP SCH (21:00)
[2022-06-17] MEDS: MULTIVIT, IRON, MIN NO. 8, FA TABLET GT SCH (21:00)
[2022-06-17] MEDS: NYSTATIN CREAM 30 GM TUBE TP SCH (21:00)
[2022-06-17 21:34] VITALS: O2SAT 99
[2022-06-18 05:49] VITALS: O2SAT 99
[2022-06-18] MEDS: OMEPRAZOLE 20 MG CAPSULE.DR GT SCH (06:08)
[2022-06-18] MEDS: GLUCERNA 1.2 1000ML LIQUID GT PRN (07:05)
[2022-06-18] MEDS: NYSTATIN CREAM 30 GM TUBE TP SCH ×2 (08:50→21:00)
[2022-06-18] MEDS: SERTRALINE HCL 50 MG TABLET GT SCH (08:50)
[2022-06-18] MEDS: ACIDOPHILUS/BULGARICUS CHEW TAB GT SCH ×2 (08:50→21:00)
[2022-06-18] MEDS: REMEDY ESSENTIAL ZINC PASTE 113 GM TP SCH ×2 (08:50→21:00)
[2022-06-18] MEDS: MINERAL OIL/PETROLATUM,WHITE 57 GM TUBE TP SCH (08:50)
[2022-06-18] MEDS: SIMETHICONE 80 MG TAB.CHEW GT SCH ×3 (08:50→17:14)
[2022-06-18] MEDS: REMEDY ESSENTIAL ZINC PASTE 113 GM TOP SCH ×2 (08:50→21:00)
[2022-06-18] MEDS: METOPROLOL TARTRATE 50 MG TABLET GT SCH ×2 (08:50→21:00)
[2022-06-18] MEDS: BACLOFEN 20 MG TABLET GT SCH ×4 (08:50→21:00)
[2022-06-18] MEDS: HYDROGEN PEROXIDE 3% 118 ML BOTTLE TP SCH ×2 (09:00→21:06)
[2022-06-18 10:05] VITALS: O2SAT 99
[2022-06-18 20:19] VITALS: TEMP 98.2
[2022-06-18] MEDS: ASCORBIC ACID 500 MG TABLET GT SCH (21:00)
[2022-06-18 21:32] VITALS: O2SAT 99
[2022-06-19] MEDS: OMEPRAZOLE 20 MG CAPSULE.DR GT SCH (06:45)
[2022-06-19 07:20] VITALS: TEMP 98.5
[2022-06-19] MEDS: ACIDOPHILUS/BULGARICUS CHEW TAB GT SCH ×2 (09:05→21:00)
[2022-06-19] MEDS: BACLOFEN 20 MG TABLET GT SCH ×4 (09:05→21:00)
[2022-06-19] MEDS: METOPROLOL TARTRATE 50 MG TABLET GT SCH ×2 (09:05→21:00)
[2022-06-19] MEDS: SIMETHICONE 80 MG TAB.CHEW GT SCH ×3 (09:05→16:51)
[2022-06-19] MEDS: MINERAL OIL/PETROLATUM,WHITE 57 GM TUBE TP SCH (09:06)
[2022-06-19] MEDS: NYSTATIN CREAM 30 GM TUBE TP SCH ×2 (09:06→21:00)
[2022-06-19] MEDS: KETOCONAZOLE 2% SHAMPOO 120 ML BOTTLE TP SCH (09:06)
[2022-06-19] MEDS: REMEDY ESSENTIAL ZINC PASTE 113 GM TOP SCH ×2 (09:06→21:00)
[2022-06-19] MEDS: SERTRALINE HCL 50 MG TABLET GT SCH (09:06)
[2022-06-19] MEDS: REMEDY ESSENTIAL ZINC PASTE 113 GM TP SCH ×2 (09:06→21:00)
[2022-06-19 09:40] VITALS: O2SAT 99
[2022-06-19] MEDS: HYDROGEN PEROXIDE 3% 118 ML BOTTLE TP SCH ×2 (09:44→21:00)
[2022-06-19 20:02] VITALS: TEMP 98.6
[2022-06-19] MEDS: ASCORBIC ACID 500 MG TABLET GT SCH (21:00)
[2022-06-19] MEDS: MULTIVIT, IRON, MIN NO. 8, FA TABLET GT SCH (21:00)
[2022-06-20] MEDS: OMEPRAZOLE 20 MG CAPSULE.DR GT SCH (06:24)
[2022-06-20 07:15] VITALS: TEMP 97.3
[2022-06-20 08:45] VITALS: O2SAT 99
[2022-06-20] MEDS: BACLOFEN 20 MG TABLET GT SCH ×4 (09:04→21:46)
[2022-06-20] MEDS: ACIDOPHILUS/BULGARICUS CHEW TAB GT SCH ×2 (09:04→21:46)
[2022-06-20] MEDS: METOPROLOL TARTRATE 50 MG TABLET GT SCH ×2 (09:04→21:48)
[2022-06-20] MEDS: SERTRALINE HCL 50 MG TABLET GT SCH (09:04)
[2022-06-20] MEDS: SIMETHICONE 80 MG TAB.CHEW GT SCH ×3 (09:04→17:31)
[2022-06-20] MEDS: REMEDY ESSENTIAL ZINC PASTE 113 GM TP SCH ×2 (09:05→21:48)
[2022-06-20] MEDS: MINERAL OIL/PETROLATUM,WHITE 57 GM TUBE TP SCH (09:05)
[2022-06-20] MEDS: REMEDY ESSENTIAL ZINC PASTE 113 GM TOP SCH ×2 (09:05→21:48)
[2022-06-20] MEDS: NYSTATIN CREAM 30 GM TUBE TP SCH ×2 (09:05→21:48)
[2022-06-20] MEDS: HYDROGEN PEROXIDE 3% 118 ML BOTTLE TP SCH ×2 (09:57→19:42)
[2022-06-20 20:00] VITALS: O2SAT 99
[2022-06-20 20:41] VITALS: TEMP 98.7
[2022-06-20] MEDS: ASCORBIC ACID 500 MG TABLET GT SCH (21:48)
[2022-06-21] MEDS: GLUCERNA 1.2 1000ML LIQUID GT PRN (04:32)
[2022-06-21] MEDS: OMEPRAZOLE 20 MG CAPSULE.DR GT SCH (05:41)
[2022-06-21 07:19] VITALS: TEMP 97.4
[2022-06-21] MEDS: BACLOFEN 20 MG TABLET GT SCH ×4 (08:10→21:33)
[2022-06-21] MEDS: ACIDOPHILUS/BULGARICUS CHEW TAB GT SCH ×2 (08:10→21:33)
[2022-06-21] MEDS: NYSTATIN CREAM 30 GM TUBE TP SCH ×2 (08:11→21:34)
[2022-06-21] MEDS: SERTRALINE HCL 50 MG TABLET GT SCH (08:11)
[2022-06-21] MEDS: MINERAL OIL/PETROLATUM,WHITE 57 GM TUBE TP SCH (08:11)
[2022-06-21] MEDS: METOPROLOL TARTRATE 50 MG TABLET GT SCH ×2 (08:11→21:33)
[2022-06-21] MEDS: REMEDY ESSENTIAL ZINC PASTE 113 GM TP SCH ×2 (08:11→21:34)
[2022-06-21] MEDS: SIMETHICONE 80 MG TAB.CHEW GT SCH ×3 (08:11→17:11)
[2022-06-21] MEDS: REMEDY ESSENTIAL ZINC PASTE 113 GM TOP SCH ×2 (08:11→21:33)
[2022-06-21] MEDS: HYDROGEN PEROXIDE 3% 118 ML BOTTLE TP SCH ×2 (09:27→21:56)
[2022-06-21 09:35] VITALS: O2SAT 99
[2022-06-21 20:00] VITALS: TEMP 99.2
[2022-06-21 21:15] VITALS: O2SAT 99
[2022-06-21] MEDS: MULTIVIT, IRON, MIN NO. 8, FA TABLET GT SCH (21:33)
[2022-06-21] MEDS: ASCORBIC ACID 500 MG TABLET GT SCH (21:33)
[2022-06-22] MEDS: GLUCERNA 1.2 1000ML LIQUID GT PRN (03:59)
[2022-06-22] MEDS: OMEPRAZOLE 20 MG CAPSULE.DR GT SCH (06:05)
[2022-06-22 06:30] VITALS: O2SAT 99
[2022-06-22 08:05] VITALS: TEMP 98.4
[2022-06-22] MEDS: HYDROGEN PEROXIDE 3% 118 ML BOTTLE TP SCH ×2 (09:00→19:33)
[2022-06-22] MEDS: ACIDOPHILUS/BULGARICUS CHEW TAB GT SCH ×2 (09:57→20:56)
[2022-06-22] MEDS: BACLOFEN 20 MG TABLET GT SCH ×4 (09:57→20:56)
[2022-06-22] MEDS: REMEDY ESSENTIAL ZINC PASTE 113 GM TOP SCH ×2 (09:57→20:57)
[2022-06-22] MEDS: METOPROLOL TARTRATE 50 MG TABLET GT SCH ×2 (09:57→20:56)
[2022-06-22] MEDS: REMEDY ESSENTIAL ZINC PASTE 113 GM TP SCH ×2 (09:57→20:57)
[2022-06-22] MEDS: SIMETHICONE 80 MG TAB.CHEW GT SCH ×3 (09:57→17:19)
[2022-06-22] MEDS: MINERAL OIL/PETROLATUM,WHITE 57 GM TUBE TP SCH (09:57)
[2022-06-22] MEDS: KETOCONAZOLE 2% SHAMPOO 120 ML BOTTLE TP SCH (09:57)
[2022-06-22] MEDS: SERTRALINE HCL 50 MG TABLET GT SCH (09:57)
[2022-06-22] MEDS: NYSTATIN CREAM 30 GM TUBE TP SCH ×2 (09:57→20:57)
[2022-06-22 14:55] VITALS: O2SAT 99
[2022-06-22 19:45] VITALS: O2SAT 99
[2022-06-22 20:00] VITALS: TEMP 97.6
[2022-06-22] MEDS: ASCORBIC ACID 500 MG TABLET GT SCH (20:57)
[2022-06-23] MEDS: OMEPRAZOLE 20 MG CAPSULE.DR GT SCH (05:45)
[2022-06-23 07:39] VITALS: TEMP 98.7
[2022-06-23] MEDS: HYDROGEN PEROXIDE 3% 118 ML BOTTLE TP SCH ×2 (08:42→19:10)
[2022-06-23] MEDS: METOPROLOL TARTRATE 50 MG TABLET GT SCH ×2 (09:19→21:00)
[2022-06-23] MEDS: ACIDOPHILUS/BULGARICUS CHEW TAB GT SCH ×2 (09:19→21:00)
[2022-06-23] MEDS: SIMETHICONE 80 MG TAB.CHEW GT SCH ×3 (09:19→17:05)
[2022-06-23] MEDS: SERTRALINE HCL 50 MG TABLET GT SCH (09:19)
[2022-06-23] MEDS: BACLOFEN 20 MG TABLET GT SCH ×4 (09:19→21:00)
[2022-06-23] MEDS: REMEDY ESSENTIAL ZINC PASTE 113 GM TP SCH ×2 (09:20→21:00)
[2022-06-23] MEDS: MINERAL OIL/PETROLATUM,WHITE 57 GM TUBE TP SCH (09:20)
[2022-06-23] MEDS: NYSTATIN CREAM 30 GM TUBE TP SCH ×2 (09:20→21:00)
[2022-06-23] MEDS: REMEDY ESSENTIAL ZINC PASTE 113 GM TOP SCH ×2 (09:20→21:00)
[2022-06-23 10:35] VITALS: O2SAT 98
[2022-06-23 20:25] VITALS: O2SAT 99
[2022-06-23 20:44] VITALS: TEMP 98
[2022-06-23] MEDS: ASCORBIC ACID 500 MG TABLET GT SCH (21:00)
[2022-06-23] MEDS: MULTIVIT, IRON, MIN NO. 8, FA TABLET GT SCH (21:00)
[2022-06-24] MEDS: OMEPRAZOLE 20 MG CAPSULE.DR GT SCH (05:10)
[2022-06-24] MEDS: HYDROGEN PEROXIDE 3% 118 ML BOTTLE TP SCH ×2 (07:37→21:18)
[2022-06-24 08:01] VITALS: TEMP 98
[2022-06-24 08:10] VITALS: O2SAT 99
[2022-06-24] MEDS: SIMETHICONE 80 MG TAB.CHEW GT SCH ×3 (08:19→17:31)
[2022-06-24] MEDS: ACIDOPHILUS/BULGARICUS CHEW TAB GT SCH ×2 (08:19→21:30)
[2022-06-24] MEDS: BACLOFEN 20 MG TABLET GT SCH ×4 (08:19→21:30)
[2022-06-24] MEDS: REMEDY ESSENTIAL ZINC PASTE 113 GM TOP SCH ×2 (08:20→21:31)
[2022-06-24] MEDS: METOPROLOL TARTRATE 50 MG TABLET GT SCH ×2 (08:20→21:31)
[2022-06-24] MEDS: REMEDY ESSENTIAL ZINC PASTE 113 GM TP SCH ×2 (08:20→21:35)
[2022-06-24] MEDS: NYSTATIN CREAM 30 GM TUBE TP SCH ×2 (08:20→21:35)
[2022-06-24] MEDS: SERTRALINE HCL 50 MG TABLET GT SCH (08:20)
[2022-06-24] MEDS: MINERAL OIL/PETROLATUM,WHITE 57 GM TUBE TP SCH (09:00)
[2022-06-24] MEDS: GLUCERNA 1.2 1000ML LIQUID GT PRN (12:32)
[2022-06-24 20:00] VITALS: TEMP 98.4
[2022-06-24 21:19] VITALS: O2SAT 99
[2022-06-24] MEDS: ASCORBIC ACID 500 MG TABLET GT SCH (21:31)
[2022-06-25] MEDS: OMEPRAZOLE 20 MG CAPSULE.DR GT SCH (05:04)
[2022-06-25 07:56] VITALS: TEMP 98
[2022-06-25] MEDS: ACIDOPHILUS/BULGARICUS CHEW TAB GT SCH ×2 (09:21→22:37)
[2022-06-25] MEDS: BACLOFEN 20 MG TABLET GT SCH ×4 (09:21→22:37)
[2022-06-25] MEDS: SERTRALINE HCL 50 MG TABLET GT SCH (09:22)
[2022-06-25] MEDS: REMEDY ESSENTIAL ZINC PASTE 113 GM TOP SCH ×2 (09:22→22:38)
[2022-06-25] MEDS: METOPROLOL TARTRATE 50 MG TABLET GT SCH ×2 (09:22→22:37)
[2022-06-25] MEDS: MINERAL OIL/PETROLATUM,WHITE 57 GM TUBE TP SCH (09:22)
[2022-06-25] MEDS: REMEDY ESSENTIAL ZINC PASTE 113 GM TP SCH ×2 (09:22→22:38)
[2022-06-25] MEDS: NYSTATIN CREAM 30 GM TUBE TP SCH ×2 (09:22→22:38)
[2022-06-25] MEDS: SIMETHICONE 80 MG TAB.CHEW GT SCH ×3 (09:24→16:28)
[2022-06-25 10:20] VITALS: O2SAT 99
[2022-06-25] MEDS: HYDROGEN PEROXIDE 3% 118 ML BOTTLE TP SCH ×2 (10:37→21:03)
[2022-06-25] MEDS: GLUCERNA 1.2 1000ML LIQUID GT PRN (16:13)
[2022-06-25 20:52] VITALS: TEMP 97.8
[2022-06-25 21:03] VITALS: O2SAT 99
[2022-06-25] MEDS: ASCORBIC ACID 500 MG TABLET GT SCH (22:38)
[2022-06-25] MEDS: MULTIVIT, IRON, MIN NO. 8, FA TABLET GT SCH (22:38)
[2022-06-26] MEDS: OMEPRAZOLE 20 MG CAPSULE.DR GT SCH (06:13)
[2022-06-26 09:11] VITALS: TEMP 97.8
[2022-06-26] MEDS: HYDROGEN PEROXIDE 3% 118 ML BOTTLE TP SCH ×2 (09:20→20:58)
[2022-06-26] MEDS: METOPROLOL TARTRATE 50 MG TABLET GT SCH ×2 (09:37→21:00)
[2022-06-26] MEDS: BACLOFEN 20 MG TABLET GT SCH ×4 (09:37→21:00)
[2022-06-26] MEDS: SIMETHICONE 80 MG TAB.CHEW GT SCH ×3 (09:38→16:28)
[2022-06-26] MEDS: SERTRALINE HCL 50 MG TABLET GT SCH (09:38)
[2022-06-26] MEDS: REMEDY ESSENTIAL ZINC PASTE 113 GM TOP SCH ×2 (09:39→21:00)
[2022-06-26] MEDS: NYSTATIN CREAM 30 GM TUBE TP SCH ×2 (09:39→21:00)
[2022-06-26] MEDS: KETOCONAZOLE 2% SHAMPOO 120 ML BOTTLE TP SCH (09:39)
[2022-06-26] MEDS: MINERAL OIL/PETROLATUM,WHITE 57 GM TUBE TP SCH (09:39)
[2022-06-26] MEDS: REMEDY ESSENTIAL ZINC PASTE 113 GM TP SCH ×2 (09:39→21:00)
[2022-06-26] MEDS: ACIDOPHILUS/BULGARICUS CHEW TAB GT SCH ×2 (09:40→21:00)
[2022-06-26] MEDS: GLUCERNA 1.2 1000ML LIQUID GT PRN (14:59)
[2022-06-26 20:59] VITALS: O2SAT 99
[2022-06-26] MEDS: ASCORBIC ACID 500 MG TABLET GT SCH (21:00)
[2022-06-27] MEDS: OMEPRAZOLE 20 MG CAPSULE.DR GT SCH (06:21)
[2022-06-27 07:08] VITALS: TEMP 98.1
[2022-06-27 08:00] VITALS: BP 118/70; TEMP 99.1; O2SAT 99
[2022-06-27 09:00] VITALS: TEMP 98.1; O2SAT 99
[2022-06-27] MEDS: REMEDY ESSENTIAL ZINC PASTE 113 GM TOP SCH ×2 (09:00→21:00)
[2022-06-27] MEDS: NYSTATIN CREAM 30 GM TUBE TP SCH ×2 (09:00→21:00)
[2022-06-27] MEDS: SIMETHICONE 80 MG TAB.CHEW GT SCH ×3 (09:00→16:43)
[2022-06-27] MEDS: MINERAL OIL/PETROLATUM,WHITE 57 GM TUBE TP SCH (09:00)
[2022-06-27] MEDS: BACLOFEN 20 MG TABLET GT SCH ×4 (09:00→21:00)
[2022-06-27] MEDS: SERTRALINE HCL 50 MG TABLET GT SCH (09:00)
[2022-06-27] MEDS: METOPROLOL TARTRATE 50 MG TABLET GT SCH ×2 (09:00→21:00)
[2022-06-27] MEDS: REMEDY ESSENTIAL ZINC PASTE 113 GM TP SCH ×2 (09:00→21:00)
[2022-06-27] MEDS: ACIDOPHILUS/BULGARICUS CHEW TAB GT SCH ×2 (09:00→21:00)
[2022-06-27] MEDS: HYDROGEN PEROXIDE 3% 118 ML BOTTLE TP SCH ×2 (09:00→20:44)
[2022-06-27 10:30] VITALS: O2SAT 99
[2022-06-27 20:00] VITALS: TEMP 98.1
[2022-06-27] MEDS: MULTIVIT, IRON, MIN NO. 8, FA TABLET GT SCH (21:00)
[2022-06-27] MEDS: ASCORBIC ACID 500 MG TABLET GT SCH (21:00)
[2022-06-27 22:00] VITALS: O2SAT 99
[2022-06-28] MEDS: GLUCERNA 1.2 1000ML LIQUID GT PRN (00:10)
[2022-06-28] MEDS: OMEPRAZOLE 20 MG CAPSULE.DR GT SCH (06:19)
[2022-06-28 07:34] VITALS: TEMP 98.3
[2022-06-28] MEDS: BACLOFEN 20 MG TABLET GT SCH ×4 (08:59→21:28)
[2022-06-28] MEDS: ACIDOPHILUS/BULGARICUS CHEW TAB GT SCH ×2 (08:59→21:28)
[2022-06-28] MEDS: SERTRALINE HCL 50 MG TABLET GT SCH (09:00)
[2022-06-28] MEDS: REMEDY ESSENTIAL ZINC PASTE 113 GM TP SCH ×2 (09:00→21:29)
[2022-06-28] MEDS: MINERAL OIL/PETROLATUM,WHITE 57 GM TUBE TP SCH (09:00)
[2022-06-28] MEDS: SIMETHICONE 80 MG TAB.CHEW GT SCH ×3 (09:00→17:27)
[2022-06-28] MEDS: NYSTATIN CREAM 30 GM TUBE TP SCH ×2 (09:00→21:29)
[2022-06-28] MEDS: REMEDY ESSENTIAL ZINC PASTE 113 GM TOP SCH ×2 (09:00→21:29)
[2022-06-28] MEDS: METOPROLOL TARTRATE 50 MG TABLET GT SCH ×2 (09:00→21:28)
[2022-06-28] MEDS: HYDROGEN PEROXIDE 3% 118 ML BOTTLE TP SCH ×2 (09:13→21:55)
[2022-06-28 10:50] VITALS: O2SAT 98
[2022-06-28 21:15] VITALS: O2SAT 99
[2022-06-28 21:18] VITALS: TEMP 98.8
[2022-06-28] MEDS: ASCORBIC ACID 500 MG TABLET GT SCH (21:28)
[2022-06-29] MEDS: OMEPRAZOLE 20 MG CAPSULE.DR GT SCH (05:31)
[2022-06-29 07:57] VITALS: TEMP 98.3
[2022-06-29] MEDS: ACIDOPHILUS/BULGARICUS CHEW TAB GT SCH ×2 (08:51→20:44)
[2022-06-29] MEDS: SERTRALINE HCL 50 MG TABLET GT SCH (08:56)
[2022-06-29] MEDS: SIMETHICONE 80 MG TAB.CHEW GT SCH ×3 (08:56→16:20)
[2022-06-29] MEDS: NYSTATIN CREAM 30 GM TUBE TP SCH ×2 (08:57→20:48)
[2022-06-29] MEDS: METOPROLOL TARTRATE 50 MG TABLET GT SCH ×2 (08:57→20:47)
[2022-06-29] MEDS: BACLOFEN 20 MG TABLET GT SCH ×4 (08:57→20:44)
[2022-06-29] MEDS: REMEDY ESSENTIAL ZINC PASTE 113 GM TOP SCH ×2 (08:57→20:48)
[2022-06-29] MEDS: KETOCONAZOLE 2% SHAMPOO 120 ML BOTTLE TP SCH (08:58)
[2022-06-29] MEDS: REMEDY ESSENTIAL ZINC PASTE 113 GM TP SCH ×2 (08:58→20:48)
[2022-06-29] MEDS: MINERAL OIL/PETROLATUM,WHITE 57 GM TUBE TP SCH (08:59)
[2022-06-29] MEDS: HYDROGEN PEROXIDE 3% 118 ML BOTTLE TP SCH ×2 (09:20→20:59)
[2022-06-29 14:24] VITALS: O2SAT 99
[2022-06-29 20:00] VITALS: TEMP 98.2
[2022-06-29] MEDS: MULTIVIT, IRON, MIN NO. 8, FA TABLET GT SCH (20:47)
[2022-06-29] MEDS: ASCORBIC ACID 500 MG TABLET GT SCH (20:48)
[2022-06-29 21:20] VITALS: O2SAT 99
[2022-06-30] MEDS: OMEPRAZOLE 20 MG CAPSULE.DR GT SCH (05:43)
[2022-06-30 07:39] VITALS: TEMP 98.6
[2022-06-30 08:15] VITALS: O2SAT 98
[2022-06-30] MEDS: HYDROGEN PEROXIDE 3% 118 ML BOTTLE TP SCH ×2 (08:15→21:33)
[2022-06-30] MEDS: ACIDOPHILUS/BULGARICUS CHEW TAB GT SCH ×2 (08:44→20:00)
[2022-06-30] MEDS: BACLOFEN 20 MG TABLET GT SCH ×4 (08:44→20:00)
[2022-06-30] MEDS: METOPROLOL TARTRATE 50 MG TABLET GT SCH ×2 (08:47→20:00)
[2022-06-30] MEDS: NYSTATIN CREAM 30 GM TUBE TP SCH ×2 (08:48→20:01)
[2022-06-30] MEDS: REMEDY ESSENTIAL ZINC PASTE 113 GM TOP SCH ×2 (08:48→20:00)
[2022-06-30] MEDS: SIMETHICONE 80 MG TAB.CHEW GT SCH ×3 (08:48→17:42)
[2022-06-30] MEDS: SERTRALINE HCL 50 MG TABLET GT SCH (08:48)
[2022-06-30] MEDS: MINERAL OIL/PETROLATUM,WHITE 57 GM TUBE TP SCH (08:48)
[2022-06-30] MEDS: REMEDY ESSENTIAL ZINC PASTE 113 GM TP SCH ×2 (08:49→20:01)
[2022-06-30] MEDS: ACETAMINOPHEN 650 MG/20 ML UDC- SA PATIENTS-PAIN ONLY GT PRN (08:51)
[2022-06-30 19:57] VITALS: TEMP 97.9
[2022-06-30] MEDS: ASCORBIC ACID 500 MG TABLET GT SCH (20:00)
[2022-06-30 20:10] VITALS: O2SAT 99
[2022-07-01] MEDS: OMEPRAZOLE 20 MG CAPSULE.DR GT SCH (05:57)
[2022-07-01 07:51] VITALS: TEMP 97.4
[2022-07-01] MEDS: ACIDOPHILUS/BULGARICUS CHEW TAB GT SCH ×2 (08:54→21:43)
[2022-07-01] MEDS: REMEDY ESSENTIAL ZINC PASTE 113 GM TOP SCH ×2 (08:54→21:44)
[2022-07-01] MEDS: MINERAL OIL/PETROLATUM,WHITE 57 GM TUBE TP SCH (08:54)
[2022-07-01] MEDS: SIMETHICONE 80 MG TAB.CHEW GT SCH ×3 (08:54→17:15)
[2022-07-01] MEDS: NYSTATIN CREAM 30 GM TUBE TP SCH ×2 (08:54→21:44)
[2022-07-01] MEDS: BACLOFEN 20 MG TABLET GT SCH ×4 (08:54→21:43)
[2022-07-01] MEDS: SERTRALINE HCL 50 MG TABLET GT SCH (08:54)
[2022-07-01] MEDS: REMEDY ESSENTIAL ZINC PASTE 113 GM TP SCH ×2 (08:54→21:44)
[2022-07-01] MEDS: METOPROLOL TARTRATE 50 MG TABLET GT SCH ×2 (09:00→21:44)
[2022-07-01 09:05] VITALS: O2SAT 98
[2022-07-01] MEDS: HYDROGEN PEROXIDE 3% 118 ML BOTTLE TP SCH ×2 (09:05→21:05)
[2022-07-01] MEDS: ACETAMINOPHEN 650 MG/20 ML UDC- SA PATIENTS-PAIN ONLY GT PRN (12:32)
[2022-07-01 20:00] VITALS: TEMP 97.9
[2022-07-01 21:25] VITALS: O2SAT 99
[2022-07-01] MEDS: MULTIVIT, IRON, MIN NO. 8, FA TABLET GT SCH (21:44)
[2022-07-01] MEDS: ASCORBIC ACID 500 MG TABLET GT SCH (21:44)
[2022-07-02] MEDS: OMEPRAZOLE 20 MG CAPSULE.DR GT SCH (05:33)
[2022-07-02 07:48] VITALS: TEMP 97.6
[2022-07-02] MEDS: HYDROGEN PEROXIDE 3% 118 ML BOTTLE TP SCH ×2 (08:19→21:17)
[2022-07-02] MEDS: ACIDOPHILUS/BULGARICUS CHEW TAB GT SCH ×2 (09:50→21:00)
[2022-07-02] MEDS: SERTRALINE HCL 50 MG TABLET GT SCH (09:51)
[2022-07-02] MEDS: REMEDY ESSENTIAL ZINC PASTE 113 GM TOP SCH ×2 (09:51→21:00)
[2022-07-02] MEDS: BACLOFEN 20 MG TABLET GT SCH ×4 (09:51→21:00)
[2022-07-02] MEDS: MINERAL OIL/PETROLATUM,WHITE 57 GM TUBE TP SCH (09:51)
[2022-07-02] MEDS: SIMETHICONE 80 MG TAB.CHEW GT SCH ×3 (09:51→17:19)
[2022-07-02] MEDS: NYSTATIN CREAM 30 GM TUBE TP SCH (09:51)
[2022-07-02] MEDS: REMEDY ESSENTIAL ZINC PASTE 113 GM TP SCH (09:51)
[2022-07-02] MEDS: METOPROLOL TARTRATE 50 MG TABLET GT SCH ×2 (09:56→21:00)
[2022-07-02 10:30] VITALS: O2SAT 99
[2022-07-02] MEDS: ACETAMINOPHEN 650 MG/20 ML UDC- SA PATIENTS-PAIN ONLY GT PRN (12:37)
[2022-07-02 20:00] VITALS: TEMP 98.5
[2022-07-02] MEDS: ASCORBIC ACID 500 MG TABLET GT SCH (21:00)
[2022-07-02 21:42] VITALS: O2SAT 99
[2022-07-03] MEDS: OMEPRAZOLE 20 MG CAPSULE.DR GT SCH (06:00)
[2022-07-03] MEDS: METOPROLOL TARTRATE 50 MG TABLET GT SCH ×2 (09:11→21:38)
[2022-07-03] MEDS: BACLOFEN 20 MG TABLET GT SCH ×4 (09:11→21:38)
[2022-07-03] MEDS: ACIDOPHILUS/BULGARICUS CHEW TAB GT SCH ×2 (09:11→21:38)
[2022-07-03] MEDS: KETOCONAZOLE 2% SHAMPOO 120 ML BOTTLE TP SCH (09:12)
[2022-07-03] MEDS: MINERAL OIL/PETROLATUM,WHITE 57 GM TUBE TP SCH (09:12)
[2022-07-03] MEDS: REMEDY ESSENTIAL ZINC PASTE 113 GM TOP SCH ×2 (09:12→21:38)
[2022-07-03] MEDS: SERTRALINE HCL 50 MG TABLET GT SCH (09:12)
[2022-07-03] MEDS: SIMETHICONE 80 MG TAB.CHEW GT SCH ×3 (09:12→18:00)
[2022-07-03] MEDS: HYDROGEN PEROXIDE 3% 118 ML BOTTLE TP SCH ×2 (09:44→21:40)
[2022-07-03 09:55] VITALS: O2SAT 99
[2022-07-03 11:16] VITALS: TEMP 98
[2022-07-03] MEDS ORDERED: DIATR MEGLU/DIATRIZOATE SODIUM 30 ML BOTTLE ONE (15:50)
[2022-07-03 20:00] VITALS: TEMP 97.6
[2022-07-03] MEDS: ASCORBIC ACID 500 MG TABLET GT SCH (21:38)
[2022-07-03] MEDS: MULTIVIT, IRON, MIN NO. 8, FA TABLET GT SCH (21:38)
[2022-07-03 21:40] VITALS: O2SAT 99
[2022-07-04] MEDS: OMEPRAZOLE 20 MG CAPSULE.DR GT SCH (05:05)
[2022-07-04] MEDS: METOPROLOL TARTRATE 50 MG TABLET GT SCH ×2 (08:49→21:04)
[2022-07-04] MEDS: ACIDOPHILUS/BULGARICUS CHEW TAB GT SCH ×2 (08:49→21:04)
[2022-07-04] MEDS: SERTRALINE HCL 50 MG TABLET GT SCH (08:49)
[2022-07-04] MEDS: REMEDY ESSENTIAL ZINC PASTE 113 GM TOP SCH ×2 (08:49→21:04)
[2022-07-04] MEDS: SIMETHICONE 80 MG TAB.CHEW GT SCH ×3 (08:49→17:25)
[2022-07-04] MEDS: MINERAL OIL/PETROLATUM,WHITE 57 GM TUBE TP SCH (08:49)
[2022-07-04] MEDS: BACLOFEN 20 MG TABLET GT SCH ×4 (08:49→21:04)
[2022-07-04] MEDS: HYDROGEN PEROXIDE 3% 118 ML BOTTLE TP SCH ×2 (08:55→21:06)
[2022-07-04 08:56] VITALS: O2SAT 99
[2022-07-04 11:29] VITALS: TEMP 98
[2022-07-04 20:36] VITALS: TEMP 97.7
[2022-07-04] MEDS: ASCORBIC ACID 500 MG TABLET GT SCH (21:04)
[2022-07-04 21:06] VITALS: O2SAT 99
[2022-07-05] MEDS: OMEPRAZOLE 20 MG CAPSULE.DR GT SCH (05:35)
[2022-07-05 08:00] VITALS: TEMP 97.6
[2022-07-05] MEDS: HYDROGEN PEROXIDE 3% 118 ML BOTTLE TP SCH ×2 (08:21→21:24)
[2022-07-05] MEDS: ACIDOPHILUS/BULGARICUS CHEW TAB GT SCH ×2 (08:37→20:57)
[2022-07-05] MEDS: BACLOFEN 20 MG TABLET GT SCH ×4 (08:38→20:57)
[2022-07-05] MEDS: METOPROLOL TARTRATE 50 MG TABLET GT SCH ×2 (08:38→20:57)
[2022-07-05] MEDS: MINERAL OIL/PETROLATUM,WHITE 57 GM TUBE TP SCH (08:39)
[2022-07-05] MEDS: REMEDY ESSENTIAL ZINC PASTE 113 GM TOP SCH ×2 (08:39→20:57)
[2022-07-05] MEDS: SERTRALINE HCL 50 MG TABLET GT SCH (08:39)
[2022-07-05] MEDS: SIMETHICONE 80 MG TAB.CHEW GT SCH ×3 (08:39→17:14)
[2022-07-05 09:35] VITALS: O2SAT 99
[2022-07-05 20:05] VITALS: O2SAT 99
[2022-07-05 20:35] VITALS: TEMP 98.2
[2022-07-05] MEDS: MULTIVIT, IRON, MIN NO. 8, FA TABLET GT SCH (20:57)
[2022-07-05] MEDS: ASCORBIC ACID 500 MG TABLET GT SCH (20:57)
[2022-07-05] MEDS: ACETAMINOPHEN 650 MG/20 ML UDC- SA PATIENTS-PAIN ONLY GT PRN (20:58)
[2022-07-06] MEDS: OMEPRAZOLE 20 MG CAPSULE.DR GT SCH (06:00)
[2022-07-06] MEDS: HYDROGEN PEROXIDE 3% 118 ML BOTTLE TP SCH ×2 (07:24→19:13)
[2022-07-06 07:58] VITALS: TEMP 97.7
[2022-07-06 08:10] VITALS: O2SAT 99
[2022-07-06] MEDS: ACIDOPHILUS/BULGARICUS CHEW TAB GT SCH ×2 (08:32→20:57)
[2022-07-06] MEDS: BACLOFEN 20 MG TABLET GT SCH ×4 (08:32→20:57)
[2022-07-06] MEDS: MINERAL OIL/PETROLATUM,WHITE 57 GM TUBE TP SCH (08:33)
[2022-07-06] MEDS: REMEDY ESSENTIAL ZINC PASTE 113 GM TOP SCH ×2 (08:33→20:57)
[2022-07-06] MEDS: SIMETHICONE 80 MG TAB.CHEW GT SCH ×3 (08:33→16:25)
[2022-07-06] MEDS: KETOCONAZOLE 2% SHAMPOO 120 ML BOTTLE TP SCH (08:33)
[2022-07-06] MEDS: SERTRALINE HCL 50 MG TABLET GT SCH (08:33)
[2022-07-06] MEDS: METOPROLOL TARTRATE 50 MG TABLET GT SCH ×2 (08:33→20:57)
[2022-07-06] MEDS: ACETAMINOPHEN 650 MG/20 ML UDC- SA PATIENTS-PAIN ONLY GT PRN (17:10)
[2022-07-06 20:05] VITALS: O2SAT 99
[2022-07-06 20:11] VITALS: TEMP 97.9
[2022-07-06] MEDS: ASCORBIC ACID 500 MG TABLET GT SCH (20:57)
[2022-07-07] MEDS: OMEPRAZOLE 20 MG CAPSULE.DR GT SCH (05:07)
[2022-07-07] MEDS: HYDROGEN PEROXIDE 3% 118 ML BOTTLE TP SCH ×2 (07:24→19:24)
[2022-07-07 07:46] VITALS: TEMP 98.1
[2022-07-07] MEDS: BACLOFEN 20 MG TABLET GT SCH ×4 (08:58→21:42)
[2022-07-07] MEDS: REMEDY ESSENTIAL ZINC PASTE 113 GM TOP SCH ×2 (08:58→21:43)
[2022-07-07] MEDS: ACIDOPHILUS/BULGARICUS CHEW TAB GT SCH ×2 (08:58→21:42)
[2022-07-07] MEDS: SIMETHICONE 80 MG TAB.CHEW GT SCH ×3 (08:58→17:26)
[2022-07-07] MEDS: SERTRALINE HCL 50 MG TABLET GT SCH (08:58)
[2022-07-07] MEDS: MINERAL OIL/PETROLATUM,WHITE 57 GM TUBE TP SCH (08:59)
[2022-07-07] MEDS: METOPROLOL TARTRATE 50 MG TABLET GT SCH ×2 (09:29→21:42)
[2022-07-07 09:50] VITALS: O2SAT 98
[2022-07-07 20:25] VITALS: TEMP 98.4
[2022-07-07] MEDS: MULTIVIT, IRON, MIN NO. 8, FA TABLET GT SCH (21:43)
[2022-07-07] MEDS: ASCORBIC ACID 500 MG TABLET GT SCH (21:43)
[2022-07-07 22:26] VITALS: O2SAT 99
[2022-07-08] MEDS: OMEPRAZOLE 20 MG CAPSULE.DR GT SCH (05:02)
[2022-07-08 08:02] VITALS: TEMP 97.6
[2022-07-08] MEDS: HYDROGEN PEROXIDE 3% 118 ML BOTTLE TP SCH ×2 (08:21→21:00)
[2022-07-08] MEDS: ACIDOPHILUS/BULGARICUS CHEW TAB GT SCH ×2 (08:31→21:39)
[2022-07-08] MEDS: METOPROLOL TARTRATE 50 MG TABLET GT SCH ×2 (08:31→21:39)
[2022-07-08] MEDS: SERTRALINE HCL 50 MG TABLET GT SCH (08:31)
[2022-07-08] MEDS: REMEDY ESSENTIAL ZINC PASTE 113 GM TOP SCH ×2 (08:31→21:39)
[2022-07-08] MEDS: BACLOFEN 20 MG TABLET GT SCH ×4 (08:31→21:39)
[2022-07-08] MEDS: SIMETHICONE 80 MG TAB.CHEW GT SCH ×3 (08:31→17:31)
[2022-07-08] MEDS: MINERAL OIL/PETROLATUM,WHITE 57 GM TUBE TP SCH (08:31)
[2022-07-08 10:50] VITALS: O2SAT 98
[2022-07-08 20:20] VITALS: TEMP 99.4
[2022-07-08] MEDS: ASCORBIC ACID 500 MG TABLET GT SCH (21:39)
[2022-07-08 22:53] VITALS: O2SAT 99
[2022-07-09] MEDS: OMEPRAZOLE 20 MG CAPSULE.DR GT SCH (06:15)
[2022-07-09 07:40] VITALS: TEMP 97.9
[2022-07-09] MEDS: SIMETHICONE 80 MG TAB.CHEW GT SCH ×3 (08:19→17:16)
[2022-07-09] MEDS: SERTRALINE HCL 50 MG TABLET GT SCH (08:19)
[2022-07-09] MEDS: BACLOFEN 20 MG TABLET GT SCH ×4 (08:19→21:00)
[2022-07-09] MEDS: METOPROLOL TARTRATE 50 MG TABLET GT SCH ×2 (08:19→21:00)
[2022-07-09] MEDS: ACIDOPHILUS/BULGARICUS CHEW TAB GT SCH ×2 (08:19→21:00)
[2022-07-09] MEDS: REMEDY ESSENTIAL ZINC PASTE 113 GM TOP SCH ×2 (08:20→21:00)
[2022-07-09] MEDS: MINERAL OIL/PETROLATUM,WHITE 57 GM TUBE TP SCH (08:20)
[2022-07-09] MEDS: HYDROGEN PEROXIDE 3% 118 ML BOTTLE TP SCH ×2 (08:38→21:00)
[2022-07-09 10:20] VITALS: O2SAT 99
[2022-07-09] MEDS: GLUCERNA 1.2 1000ML LIQUID GT PRN (18:10)
[2022-07-09 20:05] VITALS: O2SAT 99
[2022-07-09 20:34] VITALS: TEMP 97.6
[2022-07-09] MEDS: ASCORBIC ACID 500 MG TABLET GT SCH (21:00)
[2022-07-09] MEDS: MULTIVIT, IRON, MIN NO. 8, FA TABLET GT SCH (21:00)
[2022-07-10] MEDS: OMEPRAZOLE 20 MG CAPSULE.DR GT SCH (05:19)
[2022-07-10] MEDS: ACIDOPHILUS/BULGARICUS CHEW TAB GT SCH ×2 (08:42→21:00)
[2022-07-10] MEDS: BACLOFEN 20 MG TABLET GT SCH ×4 (08:42→21:00)
[2022-07-10] MEDS: MINERAL OIL/PETROLATUM,WHITE 57 GM TUBE TP SCH (08:43)
[2022-07-10] MEDS: SERTRALINE HCL 50 MG TABLET GT SCH (08:43)
[2022-07-10] MEDS: KETOCONAZOLE 2% SHAMPOO 120 ML BOTTLE TP SCH (08:43)
[2022-07-10] MEDS: METOPROLOL TARTRATE 50 MG TABLET GT SCH ×2 (08:43→21:00)
[2022-07-10] MEDS: SIMETHICONE 80 MG TAB.CHEW GT SCH ×3 (08:43→17:21)
[2022-07-10] MEDS: REMEDY ESSENTIAL ZINC PASTE 113 GM TOP SCH ×2 (08:43→21:00)
[2022-07-10] MEDS: HYDROGEN PEROXIDE 3% 118 ML BOTTLE TP SCH ×2 (09:00→21:09)
[2022-07-10 10:15] VITALS: O2SAT 99
[2022-07-10 11:33] VITALS: TEMP 97.6
[2022-07-10 20:22] VITALS: TEMP 97.6
[2022-07-10] MEDS: ASCORBIC ACID 500 MG TABLET GT SCH (21:00)
[2022-07-10 22:18] VITALS: O2SAT 99
[2022-07-11] MEDS: OMEPRAZOLE 20 MG CAPSULE.DR GT SCH (06:43)
[2022-07-11] MEDS: SIMETHICONE 80 MG TAB.CHEW GT SCH ×3 (09:00→17:39)
[2022-07-11] MEDS: BACLOFEN 20 MG TABLET GT SCH ×4 (09:00→20:20)
[2022-07-11] MEDS: METOPROLOL TARTRATE 50 MG TABLET GT SCH ×2 (09:00→20:20)
[2022-07-11] MEDS: SERTRALINE HCL 50 MG TABLET GT SCH (09:00)
[2022-07-11] MEDS: ACIDOPHILUS/BULGARICUS CHEW TAB GT SCH ×2 (09:00→20:19)
[2022-07-11] MEDS: HYDROGEN PEROXIDE 3% 118 ML BOTTLE TP SCH ×2 (09:00→21:11)
[2022-07-11] MEDS: REMEDY ESSENTIAL ZINC PASTE 113 GM TOP SCH ×2 (09:00→20:21)
[2022-07-11] MEDS: MINERAL OIL/PETROLATUM,WHITE 57 GM TUBE TP SCH (09:01)
[2022-07-11 10:00] VITALS: O2SAT 99
[2022-07-11 11:03] VITALS: TEMP 97.6
[2022-07-11 20:00] VITALS: TEMP 97.8; O2SAT 99
[2022-07-11] MEDS: ASCORBIC ACID 500 MG TABLET GT SCH (20:20)
[2022-07-11] MEDS: MULTIVIT, IRON, MIN NO. 8, FA TABLET GT SCH (20:20)
[2022-07-12] MEDS: OMEPRAZOLE 20 MG CAPSULE.DR GT SCH (05:00)
[2022-07-12 07:39] VITALS: TEMP 97.8
[2022-07-12] MEDS: HYDROGEN PEROXIDE 3% 118 ML BOTTLE TP SCH ×2 (08:17→21:00)
[2022-07-12] MEDS: BACLOFEN 20 MG TABLET GT SCH ×4 (08:28→21:00)
[2022-07-12] MEDS: ACIDOPHILUS/BULGARICUS CHEW TAB GT SCH ×2 (08:28→21:00)
[2022-07-12] MEDS: MINERAL OIL/PETROLATUM,WHITE 57 GM TUBE TP SCH (08:29)
[2022-07-12] MEDS: METOPROLOL TARTRATE 50 MG TABLET GT SCH ×2 (08:29→21:00)
[2022-07-12] MEDS: SIMETHICONE 80 MG TAB.CHEW GT SCH ×3 (08:29→17:01)
[2022-07-12] MEDS: REMEDY ESSENTIAL ZINC PASTE 113 GM TOP SCH ×2 (08:29→21:00)
[2022-07-12] MEDS: SERTRALINE HCL 50 MG TABLET GT SCH (08:29)
[2022-07-12 08:30] VITALS: O2SAT 99
[2022-07-12] MEDS: GLUCERNA 1.2 1000ML LIQUID GT PRN (17:31)
[2022-07-12 18:56] VITALS: O2SAT 99
[2022-07-12] MEDS: ASCORBIC ACID 500 MG TABLET GT SCH (21:00)
[2022-07-12 21:18] VITALS: TEMP 97.6
[2022-07-13] MEDS: OMEPRAZOLE 20 MG CAPSULE.DR GT SCH (06:00)
[2022-07-13 07:38] VITALS: TEMP 98.4
[2022-07-13] MEDS: HYDROGEN PEROXIDE 3% 118 ML BOTTLE TP SCH ×2 (08:49→20:38)
[2022-07-13] MEDS: BACLOFEN 20 MG TABLET GT SCH ×4 (09:06→21:12)
[2022-07-13] MEDS: ACIDOPHILUS/BULGARICUS CHEW TAB GT SCH ×2 (09:06→21:12)
[2022-07-13] MEDS: REMEDY ESSENTIAL ZINC PASTE 113 GM TOP SCH ×2 (09:07→21:13)
[2022-07-13] MEDS: SIMETHICONE 80 MG TAB.CHEW GT SCH ×3 (09:07→17:21)
[2022-07-13] MEDS: METOPROLOL TARTRATE 50 MG TABLET GT SCH ×2 (09:07→21:13)
[2022-07-13] MEDS: MINERAL OIL/PETROLATUM,WHITE 57 GM TUBE TP SCH (09:07)
[2022-07-13] MEDS: SERTRALINE HCL 50 MG TABLET GT SCH (09:07)
[2022-07-13] MEDS: KETOCONAZOLE 2% SHAMPOO 120 ML BOTTLE TP SCH (09:08)
[2022-07-13 16:25] VITALS: O2SAT 99
[2022-07-13 20:19] VITALS: TEMP 98.2
[2022-07-13 21:05] VITALS: O2SAT 99
[2022-07-13] MEDS: ASCORBIC ACID 500 MG TABLET GT SCH (21:13)
[2022-07-13] MEDS: MULTIVIT, IRON, MIN NO. 8, FA TABLET GT SCH (21:13)
[2022-07-14] MEDS: OMEPRAZOLE 20 MG CAPSULE.DR GT SCH (05:56)
[2022-07-14 07:59] VITALS: TEMP 98.7
[2022-07-14] MEDS: REMEDY ESSENTIAL ZINC PASTE 113 GM TOP SCH ×2 (09:00→21:00)
[2022-07-14] MEDS: SIMETHICONE 80 MG TAB.CHEW GT SCH ×3 (09:00→17:11)
[2022-07-14] MEDS: ACIDOPHILUS/BULGARICUS CHEW TAB GT SCH ×2 (09:00→21:00)
[2022-07-14] MEDS: BACLOFEN 20 MG TABLET GT SCH ×4 (09:00→21:00)
[2022-07-14] MEDS: SERTRALINE HCL 50 MG TABLET GT SCH (09:00)
[2022-07-14] MEDS: METOPROLOL TARTRATE 50 MG TABLET GT SCH ×2 (09:00→21:00)
[2022-07-14] MEDS: HYDROGEN PEROXIDE 3% 118 ML BOTTLE TP SCH ×2 (09:00→22:18)
[2022-07-14] MEDS: MINERAL OIL/PETROLATUM,WHITE 57 GM TUBE TP SCH (09:00)
[2022-07-14 11:00] VITALS: O2SAT 99
[2022-07-14] MEDS: GLUCERNA 1.2 1000ML LIQUID GT PRN (14:22)
[2022-07-14 21:00] VITALS: TEMP 97.7
[2022-07-14] MEDS: ASCORBIC ACID 500 MG TABLET GT SCH (21:00)
[2022-07-14 21:35] VITALS: O2SAT 99
[2022-07-15 05:36] VITALS: O2SAT 99
[2022-07-15] MEDS: OMEPRAZOLE 20 MG CAPSULE.DR GT SCH (06:36)
[2022-07-15 07:37] VITALS: TEMP 97.8
[2022-07-15 08:53] VITALS: O2SAT 99
[2022-07-15] MEDS: HYDROGEN PEROXIDE 3% 118 ML BOTTLE TP SCH ×2 (08:53→18:33)
[2022-07-15] MEDS: MINERAL OIL/PETROLATUM,WHITE 57 GM TUBE TP SCH (09:00)
[2022-07-15] MEDS: ACIDOPHILUS/BULGARICUS CHEW TAB GT SCH ×2 (09:36→21:46)
[2022-07-15] MEDS: BACLOFEN 20 MG TABLET GT SCH ×4 (09:37→21:46)
[2022-07-15] MEDS: METOPROLOL TARTRATE 50 MG TABLET GT SCH ×2 (09:41→21:46)
[2022-07-15] MEDS: SIMETHICONE 80 MG TAB.CHEW GT SCH ×3 (09:42→17:15)
[2022-07-15] MEDS: SERTRALINE HCL 50 MG TABLET GT SCH (09:42)
[2022-07-15] MEDS: REMEDY ESSENTIAL ZINC PASTE 113 GM TOP SCH ×2 (09:42→21:46)
[2022-07-15] MEDS: GLUCERNA 1.2 1000ML LIQUID GT PRN (17:50)
[2022-07-15 18:33] VITALS: O2SAT 99
[2022-07-15 20:00] VITALS: TEMP 98
[2022-07-15] MEDS: ASCORBIC ACID 500 MG TABLET GT SCH (21:46)
[2022-07-15] MEDS: MULTIVIT, IRON, MIN NO. 8, FA TABLET GT SCH (21:46)
[2022-07-16 00:51] VITALS: O2SAT 99
[2022-07-16] MEDS: ACETAMINOPHEN 650 MG/20 ML UDC- SA PATIENTS-PAIN ONLY GT PRN (04:47)
[2022-07-16] MEDS: OMEPRAZOLE 20 MG CAPSULE.DR GT SCH (05:39)
[2022-07-16 08:00] VITALS: TEMP 97.6
[2022-07-16] MEDS: HYDROGEN PEROXIDE 3% 118 ML BOTTLE TP SCH ×2 (09:00→21:45)
[2022-07-16] MEDS: MINERAL OIL/PETROLATUM,WHITE 57 GM TUBE TP SCH (09:00)
[2022-07-16] MEDS: ACIDOPHILUS/BULGARICUS CHEW TAB GT SCH ×2 (09:16→20:55)
[2022-07-16] MEDS: BACLOFEN 20 MG TABLET GT SCH ×4 (09:16→20:55)
[2022-07-16] MEDS: SERTRALINE HCL 50 MG TABLET GT SCH (09:17)
[2022-07-16] MEDS: SIMETHICONE 80 MG TAB.CHEW GT SCH ×3 (09:17→17:32)
[2022-07-16] MEDS: METOPROLOL TARTRATE 50 MG TABLET GT SCH ×2 (09:17→20:56)
[2022-07-16] MEDS: REMEDY ESSENTIAL ZINC PASTE 113 GM TOP SCH ×2 (09:17→20:56)
[2022-07-16 10:00] VITALS: O2SAT 99
[2022-07-16 10:30] VITALS: O2SAT 97
[2022-07-16 20:13] VITALS: O2SAT 99
[2022-07-16] MEDS: ASCORBIC ACID 500 MG TABLET GT SCH (20:56)
[2022-07-16 21:08] VITALS: TEMP 98.1
[2022-07-17] MEDS: OMEPRAZOLE 20 MG CAPSULE.DR GT SCH (05:37)
[2022-07-17 08:00] VITALS: TEMP 98.6
[2022-07-17] MEDS: REMEDY ESSENTIAL ZINC PASTE 113 GM TOP SCH ×2 (08:00→20:55)
[2022-07-17] MEDS: KETOCONAZOLE 2% SHAMPOO 120 ML BOTTLE TP SCH (08:00)
[2022-07-17] MEDS: MINERAL OIL/PETROLATUM,WHITE 57 GM TUBE TP SCH (08:00)
[2022-07-17] MEDS: METOPROLOL TARTRATE 50 MG TABLET GT SCH ×2 (08:00→20:55)
[2022-07-17] MEDS: SERTRALINE HCL 50 MG TABLET GT SCH (08:00)
[2022-07-17] MEDS: ACIDOPHILUS/BULGARICUS CHEW TAB GT SCH ×2 (08:00→20:55)
[2022-07-17] MEDS: SIMETHICONE 80 MG TAB.CHEW GT SCH ×3 (08:00→16:37)
[2022-07-17] MEDS: BACLOFEN 20 MG TABLET GT SCH ×4 (08:00→20:55)
[2022-07-17] MEDS: HYDROGEN PEROXIDE 3% 118 ML BOTTLE TP SCH ×2 (09:32→21:34)
[2022-07-17 09:50] VITALS: O2SAT 99
[2022-07-17 20:12] VITALS: TEMP 97.9
[2022-07-17] MEDS: GLUCERNA 1.2 1000ML LIQUID GT PRN (20:55)
[2022-07-17] MEDS: MULTIVIT, IRON, MIN NO. 8, FA TABLET GT SCH (20:55)
[2022-07-17] MEDS: ASCORBIC ACID 500 MG TABLET GT SCH (20:55)
[2022-07-17 21:20] VITALS: O2SAT 99
[2022-07-18] MEDS: OMEPRAZOLE 20 MG CAPSULE.DR GT SCH (05:55)
[2022-07-18] MEDS: ACIDOPHILUS/BULGARICUS CHEW TAB GT SCH ×2 (08:30→21:07)
[2022-07-18] MEDS: SIMETHICONE 80 MG TAB.CHEW GT SCH ×3 (08:31→17:01)
[2022-07-18] MEDS: METOPROLOL TARTRATE 50 MG TABLET GT SCH ×2 (08:31→21:07)
[2022-07-18] MEDS: SERTRALINE HCL 50 MG TABLET GT SCH (08:31)
[2022-07-18] MEDS: REMEDY ESSENTIAL ZINC PASTE 113 GM TOP SCH ×2 (08:31→21:07)
[2022-07-18] MEDS: BACLOFEN 20 MG TABLET GT SCH ×4 (08:31→21:07)
[2022-07-18] MEDS: MINERAL OIL/PETROLATUM,WHITE 57 GM TUBE TP SCH (08:32)
[2022-07-18] MEDS: HYDROGEN PEROXIDE 3% 118 ML BOTTLE TP SCH ×2 (09:22→21:49)
[2022-07-18 10:50] VITALS: O2SAT 98
[2022-07-18] MEDS: ACETAMINOPHEN 650 MG/20 ML UDC- SA PATIENTS-PAIN ONLY GT PRN (12:43)
[2022-07-18 18:03] VITALS: TEMP 98
[2022-07-18 20:00] VITALS: O2SAT 98
[2022-07-18] MEDS: ASCORBIC ACID 500 MG TABLET GT SCH (21:07)
[2022-07-18 21:31] VITALS: TEMP 98.1
[2022-07-19] MEDS: GLUCERNA 1.2 1000ML LIQUID GT PRN (01:22)
[2022-07-19] MEDS: OMEPRAZOLE 20 MG CAPSULE.DR GT SCH (05:51)
[2022-07-19] MEDS: HYDROGEN PEROXIDE 3% 118 ML BOTTLE TP SCH ×2 (09:00→22:04)
[2022-07-19] MEDS: BACLOFEN 20 MG TABLET GT SCH ×4 (09:45→21:34)
[2022-07-19] MEDS: ACIDOPHILUS/BULGARICUS CHEW TAB GT SCH ×2 (09:45→21:34)
[2022-07-19] MEDS: METOPROLOL TARTRATE 50 MG TABLET GT SCH ×2 (09:46→21:36)
[2022-07-19] MEDS: REMEDY ESSENTIAL ZINC PASTE 113 GM TOP SCH ×2 (09:46→21:37)
[2022-07-19] MEDS: MINERAL OIL/PETROLATUM,WHITE 57 GM TUBE TP SCH (09:46)
[2022-07-19] MEDS: SERTRALINE HCL 50 MG TABLET GT SCH (09:46)
[2022-07-19] MEDS: SIMETHICONE 80 MG TAB.CHEW GT SCH ×3 (09:46→17:16)
[2022-07-19 10:30] VITALS: O2SAT 99
[2022-07-19 11:02] VITALS: TEMP 97.5
[2022-07-19 20:00] VITALS: TEMP 98.8
[2022-07-19 20:15] VITALS: O2SAT 99
[2022-07-19] MEDS: MULTIVIT, IRON, MIN NO. 8, FA TABLET GT SCH (21:36)
[2022-07-19] MEDS: ASCORBIC ACID 500 MG TABLET GT SCH (21:37)
[2022-07-20] MEDS: OMEPRAZOLE 20 MG CAPSULE.DR GT SCH (05:40)
[2022-07-20 07:47] VITALS: TEMP 97.8
[2022-07-20] MEDS: ACIDOPHILUS/BULGARICUS CHEW TAB GT SCH ×2 (08:58→21:00)
[2022-07-20] MEDS: BACLOFEN 20 MG TABLET GT SCH ×4 (08:59→21:00)
[2022-07-20] MEDS: MINERAL OIL/PETROLATUM,WHITE 57 GM TUBE TP SCH (09:00)
[2022-07-20] MEDS: REMEDY ESSENTIAL ZINC PASTE 113 GM TOP SCH ×2 (09:00→21:00)
[2022-07-20] MEDS: KETOCONAZOLE 2% SHAMPOO 120 ML BOTTLE TP SCH (09:00)
[2022-07-20] MEDS: HYDROGEN PEROXIDE 3% 118 ML BOTTLE TP SCH ×2 (09:03→21:00)
[2022-07-20] MEDS: METOPROLOL TARTRATE 50 MG TABLET GT SCH ×2 (09:06→21:00)
[2022-07-20] MEDS: SERTRALINE HCL 50 MG TABLET GT SCH (09:07)
[2022-07-20] MEDS: SIMETHICONE 80 MG TAB.CHEW GT SCH ×3 (09:07→17:18)
[2022-07-20 10:10] VITALS: O2SAT 99
[2022-07-20 20:00] VITALS: TEMP 98.2
[2022-07-20 20:24] VITALS: O2SAT 99
[2022-07-20] MEDS: ASCORBIC ACID 500 MG TABLET GT SCH (21:00)
[2022-07-21] MEDS: OMEPRAZOLE 20 MG CAPSULE.DR GT SCH (06:00)
[2022-07-21 07:37] VITALS: TEMP 98.6
[2022-07-21 09:30] VITALS: O2SAT 99
[2022-07-21] MEDS: HYDROGEN PEROXIDE 3% 118 ML BOTTLE TP SCH ×2 (09:30→21:10)
[2022-07-21] MEDS: REMEDY ESSENTIAL ZINC PASTE 113 GM TOP SCH ×2 (09:54→21:02)
[2022-07-21] MEDS: SERTRALINE HCL 50 MG TABLET GT SCH (09:54)
[2022-07-21] MEDS: MINERAL OIL/PETROLATUM,WHITE 57 GM TUBE TP SCH (09:54)
[2022-07-21] MEDS: ACIDOPHILUS/BULGARICUS CHEW TAB GT SCH ×2 (09:54→21:01)
[2022-07-21] MEDS: BACLOFEN 20 MG TABLET GT SCH ×4 (09:54→21:01)
[2022-07-21] MEDS: METOPROLOL TARTRATE 50 MG TABLET GT SCH ×2 (09:54→21:02)
[2022-07-21] MEDS: SIMETHICONE 80 MG TAB.CHEW GT SCH ×3 (09:54→17:14)
[2022-07-21 20:20] VITALS: TEMP 98
[2022-07-21 20:25] VITALS: O2SAT 99
[2022-07-21] MEDS: ASCORBIC ACID 500 MG TABLET GT SCH (21:02)
[2022-07-21] MEDS: MULTIVIT, IRON, MIN NO. 8, FA TABLET GT SCH (21:02)
[2022-07-22] MEDS: GLUCERNA 1.2 1000ML LIQUID GT PRN (03:45)
[2022-07-22] MEDS: OMEPRAZOLE 20 MG CAPSULE.DR GT SCH (05:05)
[2022-07-22 07:37] VITALS: TEMP 97.8
[2022-07-22] MEDS: METOPROLOL TARTRATE 50 MG TABLET GT SCH ×2 (08:06→21:00)
[2022-07-22] MEDS: BACLOFEN 20 MG TABLET GT SCH ×4 (08:06→21:00)
[2022-07-22] MEDS: SERTRALINE HCL 50 MG TABLET GT SCH (08:06)
[2022-07-22] MEDS: REMEDY ESSENTIAL ZINC PASTE 113 GM TOP SCH ×2 (08:06→21:00)
[2022-07-22] MEDS: MINERAL OIL/PETROLATUM,WHITE 57 GM TUBE TP SCH (08:06)
[2022-07-22] MEDS: SIMETHICONE 80 MG TAB.CHEW GT SCH ×3 (08:06→16:43)
[2022-07-22] MEDS: ACIDOPHILUS/BULGARICUS CHEW TAB GT SCH ×2 (08:06→21:00)
[2022-07-22] MEDS: HYDROGEN PEROXIDE 3% 118 ML BOTTLE TP SCH ×2 (08:58→21:07)
[2022-07-22 10:30] VITALS: O2SAT 99
[2022-07-22] MEDS: ACETAMINOPHEN 650 MG/20 ML UDC- SA PATIENTS-PAIN ONLY GT PRN (12:47)
[2022-07-22] MEDS: ASCORBIC ACID 500 MG TABLET GT SCH (21:00)
[2022-07-22 21:08] VITALS: O2SAT 99
[2022-07-23] MEDS: GLUCERNA 1.2 1000ML LIQUID GT PRN (05:00)
[2022-07-23] MEDS: OMEPRAZOLE 20 MG CAPSULE.DR GT SCH (05:26)
[2022-07-23] MEDS: BACLOFEN 20 MG TABLET GT SCH ×4 (08:01→20:24)
[2022-07-23] MEDS: ACIDOPHILUS/BULGARICUS CHEW TAB GT SCH ×2 (08:01→20:24)
[2022-07-23] MEDS: METOPROLOL TARTRATE 50 MG TABLET GT SCH ×2 (08:01→20:25)
[2022-07-23 08:06] VITALS: TEMP 97.8
[2022-07-23] MEDS: HYDROGEN PEROXIDE 3% 118 ML BOTTLE TP SCH ×2 (09:00→19:26)
[2022-07-23] MEDS: SIMETHICONE 80 MG TAB.CHEW GT SCH ×3 (09:45→17:05)
[2022-07-23] MEDS: SERTRALINE HCL 50 MG TABLET GT SCH (09:45)
[2022-07-23] MEDS: REMEDY ESSENTIAL ZINC PASTE 113 GM TOP SCH ×2 (09:45→20:25)
[2022-07-23] MEDS: MINERAL OIL/PETROLATUM,WHITE 57 GM TUBE TP SCH (09:46)
[2022-07-23 10:30] VITALS: O2SAT 98
[2022-07-23 11:33] VITALS: TEMP 97.8
[2022-07-23 19:45] VITALS: O2SAT 99
[2022-07-23 20:06] VITALS: TEMP 99.5
[2022-07-23] MEDS: ASCORBIC ACID 500 MG TABLET GT SCH (20:25)
[2022-07-23] MEDS: MULTIVIT, IRON, MIN NO. 8, FA TABLET GT SCH (20:25)
[2022-07-24] MEDS: GLUCERNA 1.2 1000ML LIQUID GT PRN (03:58)
[2022-07-24] MEDS: OMEPRAZOLE 20 MG CAPSULE.DR GT SCH (05:12)
[2022-07-24 07:05] LABS: BASOPHILS # (AUTO) 0.1 K/UL (0.0-0.2); BASOPHILS % (AUTO) 0.6 % (0.0-2.0); EOSINOPHILS # (AUTO) 0.3 K/uL (0.0-0.7); EOSINOPHILS % (AUTO) 3.8 % (0.0-7.0); HEMATOCRIT 36.4 % (31.2-41.9); HEMOGLOBIN 11.3 g/dL (10.9-14.3); LYMPHOCYTES # (AUTO) 2.8 K/uL (0.8-4.8); LYMPHOCYTES % (AUTO) 31.6 % (20.5-51.5); MEAN CORPUSCULAR HEMOGLOBIN 22.5 uug (24.7-32.8); MEAN CORPUSCULAR HGB CONC 31 g/dL (32.3-35.6); MEAN CORPUSCULAR VOLUME 72.3 fL (75.5-95.3); MONOCYTES # (AUTO) 0.7 K/uL (0.1-1.30); MONOCYTES % (AUTO) 7.4 % (0.0-11.0); NEUTROPHILS # (AUTO) 5.1 K/uL (1.8-8.9); NEUTROPHILS % (AUTO) 56.6 % (38.5-71.5); PLATELET COUNT (AUTO) 247 K/uL (179-408); RED BLOOD CELL COUNT(AUTO) 5.03 MIL/uL (3.63-4.92); RED CELL DISTRIBUTION WIDTH 15.6 % (12.3-17.7)
[2022-07-24 07:22] LABS: ALBUMIN 2.9 g/dL (3.4-5.0); BILIRUBIN,TOTAL 0.2 mg/dL (0.2-1.0); CALCIUM 8.9 mg/dL (8.5-10.1); CREATININE 0.5 mg/dL (0.6-1.3); POTASSIUM 3.9 mmol/L (3.5-5.1); TOTAL PROTEIN, SERUM 7.9 g/dL (6.4-8.2)
[2022-07-24 07:40] LABS: DIFFERENTIAL COMMENT 1
[2022-07-24] MEDS: HYDROGEN PEROXIDE 3% 118 ML BOTTLE TP SCH ×2 (09:00→21:22)
[2022-07-24] MEDS: KETOCONAZOLE 2% SHAMPOO 120 ML BOTTLE TP SCH (10:00)
[2022-07-24] MEDS: SERTRALINE HCL 50 MG TABLET GT SCH (10:00)
[2022-07-24] MEDS: SIMETHICONE 80 MG TAB.CHEW GT SCH ×3 (10:00→18:00)
[2022-07-24] MEDS: BACLOFEN 20 MG TABLET GT SCH ×4 (10:00→21:09)
[2022-07-24] MEDS: METOPROLOL TARTRATE 50 MG TABLET GT SCH ×2 (10:00→21:09)
[2022-07-24] MEDS: MINERAL OIL/PETROLATUM,WHITE 57 GM TUBE TP SCH (10:00)
[2022-07-24] MEDS: REMEDY ESSENTIAL ZINC PASTE 113 GM TOP SCH ×2 (10:00→21:09)
[2022-07-24] MEDS: ACIDOPHILUS/BULGARICUS CHEW TAB GT SCH ×2 (10:00→21:08)
[2022-07-24 10:35] VITALS: O2SAT 99
[2022-07-24 21:09] VITALS: TEMP 98.7
[2022-07-24] MEDS: ASCORBIC ACID 500 MG TABLET GT SCH (21:09)
[2022-07-24 21:11] VITALS: O2SAT 99
[2022-07-25] MEDS: GLUCERNA 1.2 1000ML LIQUID GT PRN (01:06)
[2022-07-25] MEDS: OMEPRAZOLE 20 MG CAPSULE.DR GT SCH (05:04)
[2022-07-25] MEDS: ACIDOPHILUS/BULGARICUS CHEW TAB GT SCH ×2 (08:20→21:07)
[2022-07-25] MEDS: BACLOFEN 20 MG TABLET GT SCH ×4 (08:20→21:07)
[2022-07-25] MEDS: SERTRALINE HCL 50 MG TABLET GT SCH (08:21)
[2022-07-25] MEDS: SIMETHICONE 80 MG TAB.CHEW GT SCH ×3 (08:21→16:49)
[2022-07-25] MEDS: REMEDY ESSENTIAL ZINC PASTE 113 GM TOP SCH ×2 (08:22→21:07)
[2022-07-25] MEDS: MINERAL OIL/PETROLATUM,WHITE 57 GM TUBE TP SCH (08:22)
[2022-07-25] MEDS: METOPROLOL TARTRATE 50 MG TABLET GT SCH ×2 (08:26→21:07)
[2022-07-25 09:14] VITALS: TEMP 97.6
[2022-07-25] MEDS: HYDROGEN PEROXIDE 3% 118 ML BOTTLE TP SCH ×2 (09:44→20:51)
[2022-07-25 10:50] VITALS: O2SAT 99
[2022-07-25] MEDS: ACETAMINOPHEN 650 MG/20 ML UDC- SA PATIENTS-PAIN ONLY GT PRN (14:44)
[2022-07-25 20:00] VITALS: TEMP 98
[2022-07-25 20:51] VITALS: O2SAT 99
[2022-07-25] MEDS: ASCORBIC ACID 500 MG TABLET GT SCH (21:07)
[2022-07-25] MEDS: MULTIVIT, IRON, MIN NO. 8, FA TABLET GT SCH (21:07)
[2022-07-26] MEDS: ACETAMINOPHEN 650 MG/20 ML UDC- SA PATIENTS-PAIN ONLY GT PRN (01:13)
[2022-07-26] MEDS: GLUCERNA 1.2 1000ML LIQUID GT PRN (03:31)
[2022-07-26] MEDS: OMEPRAZOLE 20 MG CAPSULE.DR GT SCH (05:53)
[2022-07-26 07:57] VITALS: TEMP 97.9
[2022-07-26] MEDS: BACLOFEN 20 MG TABLET GT SCH ×4 (09:27→20:56)
[2022-07-26] MEDS: ACIDOPHILUS/BULGARICUS CHEW TAB GT SCH ×2 (09:27→20:56)
[2022-07-26] MEDS: SIMETHICONE 80 MG TAB.CHEW GT SCH ×3 (09:30→16:16)
[2022-07-26] MEDS: METOPROLOL TARTRATE 50 MG TABLET GT SCH ×2 (09:30→20:57)
[2022-07-26] MEDS: SERTRALINE HCL 50 MG TABLET GT SCH (09:30)
[2022-07-26] MEDS: REMEDY ESSENTIAL ZINC PASTE 113 GM TOP SCH ×2 (09:31→20:57)
[2022-07-26] MEDS: MINERAL OIL/PETROLATUM,WHITE 57 GM TUBE TP SCH (09:31)
[2022-07-26] MEDS: HYDROGEN PEROXIDE 3% 118 ML BOTTLE TP SCH ×2 (09:39→19:24)
[2022-07-26 09:45] VITALS: O2SAT 99
[2022-07-26 20:35] VITALS: TEMP 97.4
[2022-07-26] MEDS: ASCORBIC ACID 500 MG TABLET GT SCH (20:57)
[2022-07-26 21:19] VITALS: O2SAT 99
[2022-07-27] MEDS: OMEPRAZOLE 20 MG CAPSULE.DR GT SCH (05:20)
[2022-07-27 07:38] VITALS: TEMP 98.6
[2022-07-27 08:20] VITALS: O2SAT 99
[2022-07-27] MEDS: HYDROGEN PEROXIDE 3% 118 ML BOTTLE TP SCH ×2 (09:00→19:14)
[2022-07-27] MEDS: SERTRALINE HCL 50 MG TABLET GT SCH (09:25)
[2022-07-27] MEDS: SIMETHICONE 80 MG TAB.CHEW GT SCH ×3 (09:25→16:16)
[2022-07-27] MEDS: METOPROLOL TARTRATE 50 MG TABLET GT SCH ×2 (09:25→21:11)
[2022-07-27] MEDS: ACIDOPHILUS/BULGARICUS CHEW TAB GT SCH ×2 (09:25→21:11)
[2022-07-27] MEDS: MINERAL OIL/PETROLATUM,WHITE 57 GM TUBE TP SCH (09:25)
[2022-07-27] MEDS: BACLOFEN 20 MG TABLET GT SCH ×4 (09:25→21:11)
[2022-07-27] MEDS: REMEDY ESSENTIAL ZINC PASTE 113 GM TOP SCH ×2 (09:25→21:11)
[2022-07-27] MEDS: KETOCONAZOLE 2% SHAMPOO 120 ML BOTTLE TP SCH (09:26)
[2022-07-27] MEDS: ACETAMINOPHEN 650 MG/20 ML UDC- SA PATIENTS-PAIN ONLY GT PRN (17:11)
[2022-07-27 20:00] VITALS: TEMP 98
[2022-07-27] MEDS: ASCORBIC ACID 500 MG TABLET GT SCH (21:11)
[2022-07-27] MEDS: MULTIVIT, IRON, MIN NO. 8, FA TABLET GT SCH (21:11)
[2022-07-28] MEDS: GLUCERNA 1.2 1000ML LIQUID GT PRN (03:47)
[2022-07-28] MEDS: OMEPRAZOLE 20 MG CAPSULE.DR GT SCH (05:52)
[2022-07-28 07:45] VITALS: TEMP 97
[2022-07-28 07:47] VITALS: O2SAT 99
[2022-07-28] MEDS: HYDROGEN PEROXIDE 3% 118 ML BOTTLE TP SCH ×2 (07:47→21:31)
[2022-07-28] MEDS: SIMETHICONE 80 MG TAB.CHEW GT SCH ×3 (09:11→17:27)
[2022-07-28] MEDS: ACIDOPHILUS/BULGARICUS CHEW TAB GT SCH ×2 (09:11→21:01)
[2022-07-28] MEDS: BACLOFEN 20 MG TABLET GT SCH ×4 (09:11→21:03)
[2022-07-28] MEDS: SERTRALINE HCL 50 MG TABLET GT SCH (09:11)
[2022-07-28] MEDS: REMEDY ESSENTIAL ZINC PASTE 113 GM TOP SCH ×2 (09:12→21:06)
[2022-07-28] MEDS: MINERAL OIL/PETROLATUM,WHITE 57 GM TUBE TP SCH (09:12)
[2022-07-28] MEDS: METOPROLOL TARTRATE 50 MG TABLET GT SCH ×2 (09:18→21:03)
[2022-07-28 20:00] VITALS: TEMP 97.8
[2022-07-28] MEDS: ASCORBIC ACID 500 MG TABLET GT SCH (21:03)
[2022-07-28 21:48] VITALS: O2SAT 99
[2022-07-29] MEDS: OMEPRAZOLE 20 MG CAPSULE.DR GT SCH (05:54)
[2022-07-29 07:33] VITALS: TEMP 97
[2022-07-29 08:00] VITALS: O2SAT 99
[2022-07-29] MEDS: HYDROGEN PEROXIDE 3% 118 ML BOTTLE TP SCH ×2 (08:00→20:56)
[2022-07-29] MEDS: SIMETHICONE 80 MG TAB.CHEW GT SCH ×3 (10:00→16:40)
[2022-07-29] MEDS: ACIDOPHILUS/BULGARICUS CHEW TAB GT SCH ×2 (10:00→21:00)
[2022-07-29] MEDS: BACLOFEN 20 MG TABLET GT SCH ×4 (10:00→21:00)
[2022-07-29] MEDS: MINERAL OIL/PETROLATUM,WHITE 57 GM TUBE TP SCH (10:00)
[2022-07-29] MEDS: SERTRALINE HCL 50 MG TABLET GT SCH (10:00)
[2022-07-29] MEDS: METOPROLOL TARTRATE 50 MG TABLET GT SCH ×2 (10:00→21:00)
[2022-07-29] MEDS: REMEDY ESSENTIAL ZINC PASTE 113 GM TOP SCH ×2 (10:00→21:00)
[2022-07-29] MEDS: GLUCERNA 1.2 1000ML LIQUID GT PRN (12:25)
[2022-07-29] MEDS: ASCORBIC ACID 500 MG TABLET GT SCH (21:00)
[2022-07-29] MEDS: MULTIVIT, IRON, MIN NO. 8, FA TABLET GT SCH (21:00)
[2022-07-29 21:27] VITALS: O2SAT 99
[2022-07-29 22:17] VITALS: TEMP 98.5
[2022-07-30] MEDS: OMEPRAZOLE 20 MG CAPSULE.DR GT SCH (05:23)
[2022-07-30 08:00] VITALS: TEMP 96.6
[2022-07-30] MEDS: METOPROLOL TARTRATE 50 MG TABLET GT SCH ×2 (09:00→21:23)
[2022-07-30] MEDS: BACLOFEN 20 MG TABLET GT SCH ×4 (09:00→21:24)
[2022-07-30] MEDS: ACIDOPHILUS/BULGARICUS CHEW TAB GT SCH ×2 (09:00→21:22)
[2022-07-30] MEDS: REMEDY ESSENTIAL ZINC PASTE 113 GM TOP SCH ×2 (09:00→21:24)
[2022-07-30] MEDS: HYDROGEN PEROXIDE 3% 118 ML BOTTLE TP SCH ×2 (09:00→21:21)
[2022-07-30] MEDS: MINERAL OIL/PETROLATUM,WHITE 57 GM TUBE TP SCH (09:00)
[2022-07-30] MEDS: SIMETHICONE 80 MG TAB.CHEW GT SCH ×3 (09:00→17:45)
[2022-07-30] MEDS: SERTRALINE HCL 50 MG TABLET GT SCH (09:00)
[2022-07-30 10:00] VITALS: O2SAT 99
[2022-07-30] MEDS: GLUCERNA 1.2 1000ML LIQUID GT PRN (16:07)
[2022-07-30 20:33] VITALS: TEMP 98.7
[2022-07-30] MEDS: ASCORBIC ACID 500 MG TABLET GT SCH (21:24)
[2022-07-30 21:34] VITALS: O2SAT 99
[2022-07-31] MEDS: OMEPRAZOLE 20 MG CAPSULE.DR GT SCH (05:13)
[2022-07-31 07:39] VITALS: TEMP 97
[2022-07-31] MEDS: ACIDOPHILUS/BULGARICUS CHEW TAB GT SCH ×2 (08:08→21:22)
[2022-07-31] MEDS: BACLOFEN 20 MG TABLET GT SCH ×4 (08:10→21:24)
[2022-07-31] MEDS: KETOCONAZOLE 2% SHAMPOO 120 ML BOTTLE TP SCH (08:11)
[2022-07-31] MEDS: METOPROLOL TARTRATE 50 MG TABLET GT SCH ×2 (08:11→21:24)
[2022-07-31] MEDS: MINERAL OIL/PETROLATUM,WHITE 57 GM TUBE TP SCH (08:11)
[2022-07-31] MEDS: SERTRALINE HCL 50 MG TABLET GT SCH (08:11)
[2022-07-31] MEDS: REMEDY ESSENTIAL ZINC PASTE 113 GM TOP SCH ×2 (08:11→21:23)
[2022-07-31] MEDS: SIMETHICONE 80 MG TAB.CHEW GT SCH ×3 (08:12→17:20)
[2022-07-31 09:45] VITALS: O2SAT 99
[2022-07-31] MEDS: HYDROGEN PEROXIDE 3% 118 ML BOTTLE TP SCH ×2 (09:53→21:00)
[2022-07-31 20:00] VITALS: TEMP 98
[2022-07-31] MEDS: ASCORBIC ACID 500 MG TABLET GT SCH (21:22)
[2022-07-31] MEDS: MULTIVIT, IRON, MIN NO. 8, FA TABLET GT SCH (21:22)
[2022-07-31 21:35] VITALS: O2SAT 99
[2022-07-31] MEDS: GLUCERNA 1.2 1000ML LIQUID GT PRN (22:44)
[2022-08-01] MEDS: ACETAMINOPHEN 650 MG/20 ML UDC- SA PATIENTS-PAIN ONLY GT PRN (02:40)
[2022-08-01] MEDS: OMEPRAZOLE 20 MG CAPSULE.DR GT SCH (05:36)
[2022-08-01 08:00] VITALS: TEMP 98.6
[2022-08-01] MEDS: BACLOFEN 20 MG TABLET GT SCH ×4 (08:26→21:39)
[2022-08-01] MEDS: ACIDOPHILUS/BULGARICUS CHEW TAB GT SCH ×2 (08:26→21:39)
[2022-08-01] MEDS: METOPROLOL TARTRATE 50 MG TABLET GT SCH ×2 (08:26→21:00)
[2022-08-01] MEDS: SIMETHICONE 80 MG TAB.CHEW GT SCH ×3 (08:27→17:09)
[2022-08-01] MEDS: SERTRALINE HCL 50 MG TABLET GT SCH (08:27)
[2022-08-01] MEDS: MINERAL OIL/PETROLATUM,WHITE 57 GM TUBE TP SCH (08:28)
[2022-08-01] MEDS: REMEDY ESSENTIAL ZINC PASTE 113 GM TOP SCH ×2 (08:28→21:40)
[2022-08-01 08:30] VITALS: O2SAT 99
[2022-08-01] MEDS: HYDROGEN PEROXIDE 3% 118 ML BOTTLE TP SCH ×2 (08:30→21:55)
[2022-08-01 20:00] VITALS: TEMP 98
[2022-08-01] MEDS: ASCORBIC ACID 500 MG TABLET GT SCH (21:40)
[2022-08-02 04:18] VITALS: O2SAT 99
[2022-08-02] MEDS: OMEPRAZOLE 20 MG CAPSULE.DR GT SCH (06:21)
[2022-08-02] MEDS: HYDROGEN PEROXIDE 3% 118 ML BOTTLE TP SCH ×2 (08:39→21:46)
[2022-08-02] MEDS: ACIDOPHILUS/BULGARICUS CHEW TAB GT SCH ×2 (09:18→21:25)
[2022-08-02] MEDS: SIMETHICONE 80 MG TAB.CHEW GT SCH ×3 (09:18→17:22)
[2022-08-02] MEDS: SERTRALINE HCL 50 MG TABLET GT SCH (09:18)
[2022-08-02] MEDS: BACLOFEN 20 MG TABLET GT SCH ×4 (09:18→21:25)
[2022-08-02] MEDS: REMEDY ESSENTIAL ZINC PASTE 113 GM TOP SCH ×2 (09:19→21:26)
[2022-08-02] MEDS: METOPROLOL TARTRATE 50 MG TABLET GT SCH ×2 (09:19→21:25)
[2022-08-02] MEDS: MINERAL OIL/PETROLATUM,WHITE 57 GM TUBE TP SCH (09:20)
[2022-08-02 09:30] VITALS: O2SAT 99
[2022-08-02 11:43] VITALS: TEMP 97.7
[2022-08-02 20:43] VITALS: TEMP 98.1
[2022-08-02] MEDS: ASCORBIC ACID 500 MG TABLET GT SCH (21:26)
[2022-08-02] MEDS: MULTIVIT, IRON, MIN NO. 8, FA TABLET GT SCH (21:26)
[2022-08-03] MEDS: OMEPRAZOLE 20 MG CAPSULE.DR GT SCH (06:03)
[2022-08-03] MEDS: GLUCERNA 1.2 1000ML LIQUID GT PRN (07:02)
[2022-08-03 07:40] VITALS: TEMP 98.6
[2022-08-03] MEDS: HYDROGEN PEROXIDE 3% 118 ML BOTTLE TP SCH ×2 (09:00→19:14)
[2022-08-03] MEDS: BACLOFEN 20 MG TABLET GT SCH ×4 (09:25→21:13)
[2022-08-03] MEDS: METOPROLOL TARTRATE 50 MG TABLET GT SCH ×2 (09:25→21:14)
[2022-08-03] MEDS: ACIDOPHILUS/BULGARICUS CHEW TAB GT SCH ×2 (09:25→21:13)
[2022-08-03] MEDS: SERTRALINE HCL 50 MG TABLET GT SCH (09:26)
[2022-08-03] MEDS: SIMETHICONE 80 MG TAB.CHEW GT SCH ×3 (09:26→17:00)
[2022-08-03] MEDS: KETOCONAZOLE 2% SHAMPOO 120 ML BOTTLE TP SCH (09:26)
[2022-08-03] MEDS: REMEDY ESSENTIAL ZINC PASTE 113 GM TOP SCH ×2 (09:26→21:14)
[2022-08-03] MEDS: MINERAL OIL/PETROLATUM,WHITE 57 GM TUBE TP SCH (09:26)
[2022-08-03 10:40] VITALS: O2SAT 99
[2022-08-03] MEDS: NEOMY/BACITRA/POLYMYXIN B OINT UD PACKET TP SCH (13:54)
[2022-08-03 20:10] VITALS: O2SAT 99
[2022-08-03 20:40] VITALS: TEMP 98
[2022-08-03] MEDS: ASCORBIC ACID 500 MG TABLET GT SCH (21:14)
[2022-08-04] MEDS: OMEPRAZOLE 20 MG CAPSULE.DR GT SCH (05:36)
[2022-08-04 07:40] VITALS: TEMP 97.3
[2022-08-04] MEDS: NEOMY/BACITRA/POLYMYXIN B OINT UD PACKET TP SCH (09:00)
[2022-08-04] MEDS: ACIDOPHILUS/BULGARICUS CHEW TAB GT SCH ×2 (09:47→20:41)
[2022-08-04] MEDS: BACLOFEN 20 MG TABLET GT SCH ×4 (09:47→20:41)
[2022-08-04] MEDS: REMEDY ESSENTIAL ZINC PASTE 113 GM TOP SCH ×2 (09:48→20:42)
[2022-08-04] MEDS: SERTRALINE HCL 50 MG TABLET GT SCH (09:48)
[2022-08-04] MEDS: SIMETHICONE 80 MG TAB.CHEW GT SCH ×3 (09:48→17:00)
[2022-08-04] MEDS: MINERAL OIL/PETROLATUM,WHITE 57 GM TUBE TP SCH (09:49)
[2022-08-04] MEDS: METOPROLOL TARTRATE 50 MG TABLET GT SCH ×2 (09:49→20:42)
[2022-08-04] MEDS: GLUCERNA 1.2 1000ML LIQUID GT PRN (10:00)
[2022-08-04 10:15] VITALS: O2SAT 99
[2022-08-04] MEDS: HYDROGEN PEROXIDE 3% 118 ML BOTTLE TP SCH ×2 (10:15→19:18)
[2022-08-04] MEDS: ASCORBIC ACID 500 MG TABLET GT SCH (20:42)
[2022-08-04] MEDS: MULTIVIT, IRON, MIN NO. 8, FA TABLET GT SCH (20:42)
[2022-08-04 21:36] VITALS: TEMP 97.7
[2022-08-05] MEDS: OMEPRAZOLE 20 MG CAPSULE.DR GT SCH (05:18)
[2022-08-05 07:42] VITALS: TEMP 98.4
[2022-08-05] MEDS: ACIDOPHILUS/BULGARICUS CHEW TAB GT SCH ×2 (08:58→21:10)
[2022-08-05] MEDS: METOPROLOL TARTRATE 50 MG TABLET GT SCH ×2 (08:59→21:11)
[2022-08-05] MEDS: SIMETHICONE 80 MG TAB.CHEW GT SCH ×3 (08:59→17:16)
[2022-08-05] MEDS: BACLOFEN 20 MG TABLET GT SCH ×4 (08:59→21:10)
[2022-08-05] MEDS: SERTRALINE HCL 50 MG TABLET GT SCH (08:59)
[2022-08-05] MEDS: REMEDY ESSENTIAL ZINC PASTE 113 GM TOP SCH ×2 (08:59→21:11)
[2022-08-05] MEDS: MINERAL OIL/PETROLATUM,WHITE 57 GM TUBE TP SCH (09:00)
[2022-08-05] MEDS: NEOMY/BACITRA/POLYMYXIN B OINT UD PACKET TP SCH (09:00)
[2022-08-05] MEDS: GLUCERNA 1.2 1000ML LIQUID GT PRN (10:11)
[2022-08-05 10:50] VITALS: O2SAT 99
[2022-08-05] MEDS: HYDROGEN PEROXIDE 3% 118 ML BOTTLE TP SCH ×2 (10:50→19:14)
[2022-08-05 20:05] VITALS: O2SAT 99
[2022-08-05 20:41] VITALS: TEMP 97.3
[2022-08-05] MEDS: ASCORBIC ACID 500 MG TABLET GT SCH (21:11)
[2022-08-06] MEDS: OMEPRAZOLE 20 MG CAPSULE.DR GT SCH (05:18)
[2022-08-06 08:00] VITALS: TEMP 98
[2022-08-06] MEDS: ACIDOPHILUS/BULGARICUS CHEW TAB GT SCH ×2 (08:49→20:12)
[2022-08-06] MEDS: BACLOFEN 20 MG TABLET GT SCH ×4 (08:49→20:12)
[2022-08-06] MEDS: REMEDY ESSENTIAL ZINC PASTE 113 GM TOP SCH ×2 (08:51→20:12)
[2022-08-06] MEDS: MINERAL OIL/PETROLATUM,WHITE 57 GM TUBE TP SCH (08:51)
[2022-08-06] MEDS: SIMETHICONE 80 MG TAB.CHEW GT SCH ×3 (08:51→17:05)
[2022-08-06] MEDS: SERTRALINE HCL 50 MG TABLET GT SCH (08:51)
[2022-08-06] MEDS: METOPROLOL TARTRATE 50 MG TABLET GT SCH ×2 (08:51→20:13)
[2022-08-06] MEDS: NEOMY/BACITRA/POLYMYXIN B OINT UD PACKET TP SCH (08:51)
[2022-08-06] MEDS: HYDROGEN PEROXIDE 3% 118 ML BOTTLE TP SCH ×2 (09:09→19:14)
[2022-08-06 09:40] VITALS: O2SAT 99
[2022-08-06] MEDS: GLUCERNA 1.2 1000ML LIQUID GT PRN (12:14)
[2022-08-06] MEDS: ASCORBIC ACID 500 MG TABLET GT SCH (20:12)
[2022-08-06] MEDS: MULTIVIT, IRON, MIN NO. 8, FA TABLET GT SCH (20:12)
[2022-08-06 20:31] VITALS: TEMP 99.1
[2022-08-06 20:50] VITALS: O2SAT 99
[2022-08-07] MEDS: OMEPRAZOLE 20 MG CAPSULE.DR GT SCH (05:10)
[2022-08-07 07:45] VITALS: TEMP 97.7
[2022-08-07] MEDS: ACIDOPHILUS/BULGARICUS CHEW TAB GT SCH ×2 (08:25→21:21)
[2022-08-07] MEDS: METOPROLOL TARTRATE 50 MG TABLET GT SCH ×2 (08:26→21:22)
[2022-08-07] MEDS: SIMETHICONE 80 MG TAB.CHEW GT SCH ×3 (08:26→16:43)
[2022-08-07] MEDS: BACLOFEN 20 MG TABLET GT SCH ×4 (08:26→21:21)
[2022-08-07] MEDS: MINERAL OIL/PETROLATUM,WHITE 57 GM TUBE TP SCH (08:27)
[2022-08-07] MEDS: REMEDY ESSENTIAL ZINC PASTE 113 GM TOP SCH ×2 (08:27→21:23)
[2022-08-07] MEDS: SERTRALINE HCL 50 MG TABLET GT SCH (08:27)
[2022-08-07] MEDS: NEOMY/BACITRA/POLYMYXIN B OINT UD PACKET TP SCH (08:27)
[2022-08-07] MEDS: KETOCONAZOLE 2% SHAMPOO 120 ML BOTTLE TP SCH (08:27)
[2022-08-07] MEDS: HYDROGEN PEROXIDE 3% 118 ML BOTTLE TP SCH ×2 (09:26→21:00)
[2022-08-07 09:40] VITALS: O2SAT 99
[2022-08-07] MEDS: GLUCERNA 1.2 1000ML LIQUID GT PRN (16:52)
[2022-08-07 20:00] VITALS: TEMP 98.5
[2022-08-07 20:10] VITALS: O2SAT 99
[2022-08-07] MEDS: ASCORBIC ACID 500 MG TABLET GT SCH (21:23)
[2022-08-08] MEDS: OMEPRAZOLE 20 MG CAPSULE.DR GT SCH (06:00)
[2022-08-08 08:00] VITALS: TEMP 97.6
[2022-08-08] MEDS: METOPROLOL TARTRATE 50 MG TABLET GT SCH ×2 (08:34→20:49)
[2022-08-08] MEDS: SERTRALINE HCL 50 MG TABLET GT SCH (08:34)
[2022-08-08] MEDS: ACIDOPHILUS/BULGARICUS CHEW TAB GT SCH ×2 (08:34→20:48)
[2022-08-08] MEDS: NEOMY/BACITRA/POLYMYXIN B OINT UD PACKET TP SCH (08:34)
[2022-08-08] MEDS: MINERAL OIL/PETROLATUM,WHITE 57 GM TUBE TP SCH (08:34)
[2022-08-08] MEDS: SIMETHICONE 80 MG TAB.CHEW GT SCH ×3 (08:34→16:40)
[2022-08-08] MEDS: REMEDY ESSENTIAL ZINC PASTE 113 GM TOP SCH ×2 (08:34→20:52)
[2022-08-08] MEDS: BACLOFEN 20 MG TABLET GT SCH ×4 (08:34→20:49)
[2022-08-08] MEDS: HYDROGEN PEROXIDE 3% 118 ML BOTTLE TP SCH ×2 (08:40→20:40)
[2022-08-08 10:05] VITALS: O2SAT 99
[2022-08-08] MEDS: GLUCERNA 1.2 1000ML LIQUID GT PRN (18:20)
[2022-08-08 20:33] VITALS: TEMP 97.6
[2022-08-08 20:40] VITALS: O2SAT 99
[2022-08-08] MEDS: MULTIVIT, IRON, MIN NO. 8, FA TABLET GT SCH (20:51)
[2022-08-08] MEDS: ASCORBIC ACID 500 MG TABLET GT SCH (20:52)
[2022-08-08] MEDS ORDERED: HALOBETASOL 0.05% TP SCH (21:00)
[2022-08-09] MEDS: OMEPRAZOLE 20 MG CAPSULE.DR GT SCH (06:09)
[2022-08-09] MEDS: ACIDOPHILUS/BULGARICUS CHEW TAB GT SCH ×2 (08:47→21:32)
[2022-08-09] MEDS: BACLOFEN 20 MG TABLET GT SCH ×4 (08:48→21:32)
[2022-08-09] MEDS: SERTRALINE HCL 50 MG TABLET GT SCH (08:49)
[2022-08-09] MEDS: METOPROLOL TARTRATE 50 MG TABLET GT SCH ×2 (08:49→21:00)
[2022-08-09] MEDS: REMEDY ESSENTIAL ZINC PASTE 113 GM TOP SCH ×2 (08:49→21:33)
[2022-08-09] MEDS: MINERAL OIL/PETROLATUM,WHITE 57 GM TUBE TP SCH (08:49)
[2022-08-09] MEDS: SIMETHICONE 80 MG TAB.CHEW GT SCH ×3 (08:49→16:10)
[2022-08-09] MEDS: NEOMY/BACITRA/POLYMYXIN B OINT UD PACKET TP SCH (08:50)
[2022-08-09] MEDS: HYDROGEN PEROXIDE 3% 118 ML BOTTLE TP SCH ×2 (09:34→20:48)
[2022-08-09 09:40] VITALS: O2SAT 99
[2022-08-09] MEDS: GLUCERNA 1.2 1000ML LIQUID GT PRN (18:00)
[2022-08-09 19:52] VITALS: TEMP 97.8
[2022-08-09 20:48] VITALS: O2SAT 99
[2022-08-09] MEDS: HALOBETASOL 0.05% TP SCH (21:00)
[2022-08-09] MEDS: ASCORBIC ACID 500 MG TABLET GT SCH (21:33)
[2022-08-10] MEDS: OMEPRAZOLE 20 MG CAPSULE.DR GT SCH (05:41)
[2022-08-10 07:30] VITALS: TEMP 98.3
[2022-08-10 08:25] VITALS: O2SAT 99
[2022-08-10] MEDS: ACIDOPHILUS/BULGARICUS CHEW TAB GT SCH ×2 (09:17→20:26)
[2022-08-10] MEDS: MINERAL OIL/PETROLATUM,WHITE 57 GM TUBE TP SCH (09:17)
[2022-08-10] MEDS: SIMETHICONE 80 MG TAB.CHEW GT SCH ×3 (09:17→17:10)
[2022-08-10] MEDS: BACLOFEN 20 MG TABLET GT SCH ×4 (09:17→20:26)
[2022-08-10] MEDS: SERTRALINE HCL 50 MG TABLET GT SCH (09:17)
[2022-08-10] MEDS: METOPROLOL TARTRATE 50 MG TABLET GT SCH ×2 (09:17→20:27)
[2022-08-10] MEDS: REMEDY ESSENTIAL ZINC PASTE 113 GM TOP SCH ×2 (09:17→20:28)
[2022-08-10] MEDS: KETOCONAZOLE 2% SHAMPOO 120 ML BOTTLE TP SCH (09:18)
[2022-08-10] MEDS: NEOMY/BACITRA/POLYMYXIN B OINT UD PACKET TP SCH (09:18)
[2022-08-10] MEDS: HALOBETASOL 0.05% TP SCH ×2 (09:18→20:28)
[2022-08-10] MEDS: HYDROGEN PEROXIDE 3% 118 ML BOTTLE TP SCH ×2 (09:21→19:09)
[2022-08-10] MEDS: GLUCERNA 1.2 1000ML LIQUID GT PRN (19:03)
[2022-08-10 20:00] VITALS: TEMP 98
[2022-08-10 20:05] VITALS: O2SAT 99
[2022-08-10] MEDS: MULTIVIT, IRON, MIN NO. 8, FA TABLET GT SCH (20:27)
[2022-08-10] MEDS: ASCORBIC ACID 500 MG TABLET GT SCH (20:27)
[2022-08-11] MEDS: OMEPRAZOLE 20 MG CAPSULE.DR GT SCH (06:04)
[2022-08-11 07:59] VITALS: TEMP 97.8
[2022-08-11 09:00] VITALS: O2SAT 99
[2022-08-11] MEDS: HYDROGEN PEROXIDE 3% 118 ML BOTTLE TP SCH ×2 (09:00→18:35)
[2022-08-11] MEDS: BACLOFEN 20 MG TABLET GT SCH ×4 (09:36→20:47)
[2022-08-11] MEDS: METOPROLOL TARTRATE 50 MG TABLET GT SCH ×2 (09:36→20:48)
[2022-08-11] MEDS: ACIDOPHILUS/BULGARICUS CHEW TAB GT SCH ×2 (09:36→20:47)
[2022-08-11] MEDS: HALOBETASOL 0.05% TP SCH ×2 (09:37→20:49)
[2022-08-11] MEDS: SIMETHICONE 80 MG TAB.CHEW GT SCH ×3 (09:37→16:32)
[2022-08-11] MEDS: MINERAL OIL/PETROLATUM,WHITE 57 GM TUBE TP SCH (09:37)
[2022-08-11] MEDS: SERTRALINE HCL 50 MG TABLET GT SCH (09:37)
[2022-08-11] MEDS: NEOMY/BACITRA/POLYMYXIN B OINT UD PACKET TP SCH (09:37)
[2022-08-11] MEDS: REMEDY ESSENTIAL ZINC PASTE 113 GM TOP SCH ×2 (09:37→20:48)
[2022-08-11 18:36] VITALS: O2SAT 99
[2022-08-11 20:00] VITALS: TEMP 98
[2022-08-11] MEDS: ASCORBIC ACID 500 MG TABLET GT SCH (20:48)
[2022-08-12 00:10] VITALS: O2SAT 99
[2022-08-12] MEDS: OMEPRAZOLE 20 MG CAPSULE.DR GT SCH (05:30)
[2022-08-12] MEDS: SIMETHICONE 80 MG TAB.CHEW GT SCH ×3 (08:55→17:29)
[2022-08-12] MEDS: ACIDOPHILUS/BULGARICUS CHEW TAB GT SCH ×2 (08:55→20:10)
[2022-08-12] MEDS: BACLOFEN 20 MG TABLET GT SCH ×4 (08:55→20:10)
[2022-08-12] MEDS: SERTRALINE HCL 50 MG TABLET GT SCH (08:56)
[2022-08-12] MEDS: HALOBETASOL 0.05% TP SCH ×2 (08:56→20:11)
[2022-08-12] MEDS: MINERAL OIL/PETROLATUM,WHITE 57 GM TUBE TP SCH (08:56)
[2022-08-12] MEDS: REMEDY ESSENTIAL ZINC PASTE 113 GM TOP SCH ×2 (08:56→20:11)
[2022-08-12] MEDS: NEOMY/BACITRA/POLYMYXIN B OINT UD PACKET TP SCH (08:57)
[2022-08-12] MEDS: METOPROLOL TARTRATE 50 MG TABLET GT SCH ×2 (08:59→21:13)
[2022-08-12 09:01] VITALS: TEMP 97.8
[2022-08-12] MEDS: HYDROGEN PEROXIDE 3% 118 ML BOTTLE TP SCH ×2 (09:50→21:41)
[2022-08-12 10:15] VITALS: O2SAT 99
[2022-08-12] MEDS: ASCORBIC ACID 500 MG TABLET GT SCH (20:11)
[2022-08-12] MEDS: MULTIVIT, IRON, MIN NO. 8, FA TABLET GT SCH (20:11)
[2022-08-12 20:31] VITALS: O2SAT 99
[2022-08-12 20:46] VITALS: TEMP 97.6
[2022-08-13] MEDS: GLUCERNA 1.2 1000ML LIQUID GT PRN (04:14)
[2022-08-13] MEDS: OMEPRAZOLE 20 MG CAPSULE.DR GT SCH (05:26)
[2022-08-13 07:48] VITALS: TEMP 97.6
[2022-08-13] MEDS: HYDROGEN PEROXIDE 3% 118 ML BOTTLE TP SCH ×2 (09:26→23:14)
[2022-08-13 09:27] VITALS: O2SAT 99
[2022-08-13] MEDS: BACLOFEN 20 MG TABLET GT SCH ×4 (09:46→20:23)
[2022-08-13] MEDS: METOPROLOL TARTRATE 50 MG TABLET GT SCH ×2 (09:46→20:23)
[2022-08-13] MEDS: ACIDOPHILUS/BULGARICUS CHEW TAB GT SCH ×2 (09:46→20:23)
[2022-08-13] MEDS: HALOBETASOL 0.05% TP SCH ×2 (09:47→20:24)
[2022-08-13] MEDS: MINERAL OIL/PETROLATUM,WHITE 57 GM TUBE TP SCH (09:47)
[2022-08-13] MEDS: REMEDY ESSENTIAL ZINC PASTE 113 GM TOP SCH ×2 (09:47→20:24)
[2022-08-13] MEDS: SERTRALINE HCL 50 MG TABLET GT SCH (09:59)
[2022-08-13] MEDS: SIMETHICONE 80 MG TAB.CHEW GT SCH ×3 (09:59→17:00)
[2022-08-13 17:06] VITALS: O2SAT 97
[2022-08-13 20:10] VITALS: TEMP 98.7
[2022-08-13] MEDS: ASCORBIC ACID 500 MG TABLET GT SCH (20:24)
[2022-08-13 21:17] VITALS: O2SAT 99
[2022-08-14] MEDS: OMEPRAZOLE 20 MG CAPSULE.DR GT SCH (06:18)
[2022-08-14 08:00] VITALS: TEMP 97.7
[2022-08-14] MEDS: METOPROLOL TARTRATE 50 MG TABLET GT SCH ×2 (09:00→21:34)
[2022-08-14 09:40] VITALS: O2SAT 99
[2022-08-14] MEDS: BACLOFEN 20 MG TABLET GT SCH ×4 (09:40→21:32)
[2022-08-14] MEDS: ACIDOPHILUS/BULGARICUS CHEW TAB GT SCH ×2 (09:40→21:32)
[2022-08-14] MEDS: SIMETHICONE 80 MG TAB.CHEW GT SCH ×3 (09:42→17:55)
[2022-08-14] MEDS: REMEDY ESSENTIAL ZINC PASTE 113 GM TOP SCH ×2 (09:43→21:34)
[2022-08-14] MEDS: KETOCONAZOLE 2% SHAMPOO 120 ML BOTTLE TP SCH (09:43)
[2022-08-14] MEDS: HALOBETASOL 0.05% TP SCH ×2 (09:43→21:34)
[2022-08-14] MEDS: SERTRALINE HCL 50 MG TABLET GT SCH (09:43)
[2022-08-14] MEDS: MINERAL OIL/PETROLATUM,WHITE 57 GM TUBE TP SCH (09:43)
[2022-08-14] MEDS: HYDROGEN PEROXIDE 3% 118 ML BOTTLE TP SCH ×2 (09:55→21:00)
[2022-08-14] MEDS: GLUCERNA 1.2 1000ML LIQUID GT PRN (14:16)
[2022-08-14 20:35] VITALS: TEMP 98.2
[2022-08-14] MEDS: ASCORBIC ACID 500 MG TABLET GT SCH (21:34)
[2022-08-14] MEDS: MULTIVIT, IRON, MIN NO. 8, FA TABLET GT SCH (21:34)
[2022-08-14 23:15] VITALS: O2SAT 99
[2022-08-15] MEDS: OMEPRAZOLE 20 MG CAPSULE.DR GT SCH (05:31)
[2022-08-15] MEDS: HALOBETASOL 0.05% TP SCH ×2 (09:00→21:34)
[2022-08-15 09:05] VITALS: O2SAT 99
[2022-08-15] MEDS: HYDROGEN PEROXIDE 3% 118 ML BOTTLE TP SCH ×2 (09:05→21:00)
[2022-08-15] MEDS: ACIDOPHILUS/BULGARICUS CHEW TAB GT SCH ×2 (09:30→21:33)
[2022-08-15] MEDS: BACLOFEN 20 MG TABLET GT SCH ×4 (09:30→21:33)
[2022-08-15] MEDS: SIMETHICONE 80 MG TAB.CHEW GT SCH ×3 (09:31→17:06)
[2022-08-15] MEDS: MINERAL OIL/PETROLATUM,WHITE 57 GM TUBE TP SCH (09:31)
[2022-08-15] MEDS: SERTRALINE HCL 50 MG TABLET GT SCH (09:31)
[2022-08-15] MEDS: METOPROLOL TARTRATE 50 MG TABLET GT SCH ×2 (09:31→21:34)
[2022-08-15] MEDS: REMEDY ESSENTIAL ZINC PASTE 113 GM TOP SCH ×2 (09:31→21:34)
[2022-08-15 11:20] VITALS: TEMP 97.8
[2022-08-15] MEDS: GLUCERNA 1.2 1000ML LIQUID GT PRN (12:16)
[2022-08-15 20:19] VITALS: TEMP 98.4
[2022-08-15 21:00] VITALS: O2SAT 99
[2022-08-15] MEDS: ASCORBIC ACID 500 MG TABLET GT SCH (21:34)
[2022-08-16] MEDS: OMEPRAZOLE 20 MG CAPSULE.DR GT SCH (05:18)
[2022-08-16] MEDS: ACIDOPHILUS/BULGARICUS CHEW TAB GT SCH ×2 (08:25→20:49)
[2022-08-16] MEDS: BACLOFEN 20 MG TABLET GT SCH ×4 (08:25→20:49)
[2022-08-16] MEDS: REMEDY ESSENTIAL ZINC PASTE 113 GM TOP SCH ×2 (08:28→20:51)
[2022-08-16] MEDS: SIMETHICONE 80 MG TAB.CHEW GT SCH ×3 (08:28→16:54)
[2022-08-16] MEDS: SERTRALINE HCL 50 MG TABLET GT SCH (08:28)
[2022-08-16] MEDS: METOPROLOL TARTRATE 50 MG TABLET GT SCH ×2 (08:33→20:51)
[2022-08-16] MEDS: ACETAMINOPHEN 650 MG/20 ML UDC- SA PATIENTS-PAIN ONLY GT PRN (08:34)
[2022-08-16 08:37] VITALS: TEMP 97.7
[2022-08-16] MEDS: HYDROGEN PEROXIDE 3% 118 ML BOTTLE TP SCH ×2 (08:41→22:24)
[2022-08-16] MEDS: HALOBETASOL 0.05% TP SCH ×2 (09:00→20:51)
[2022-08-16] MEDS: MINERAL OIL/PETROLATUM,WHITE 57 GM TUBE TP SCH (09:00)
[2022-08-16 09:35] VITALS: O2SAT 99
[2022-08-16] MEDS: GLUCERNA 1.2 1000ML LIQUID GT PRN (15:11)
[2022-08-16 19:42] VITALS: O2SAT 99
[2022-08-16 20:00] VITALS: TEMP 97.9
[2022-08-16] MEDS: ASCORBIC ACID 500 MG TABLET GT SCH (20:51)
[2022-08-16] MEDS: MULTIVIT, IRON, MIN NO. 8, FA TABLET GT SCH (20:51)
[2022-08-17] MEDS: OMEPRAZOLE 20 MG CAPSULE.DR GT SCH (05:27)
[2022-08-17 07:41] VITALS: TEMP 97.2
[2022-08-17 08:05] VITALS: O2SAT 99
[2022-08-17] MEDS: HYDROGEN PEROXIDE 3% 118 ML BOTTLE TP SCH ×2 (09:08→21:59)
[2022-08-17] MEDS: ACIDOPHILUS/BULGARICUS CHEW TAB GT SCH ×2 (09:22→20:48)
[2022-08-17] MEDS: BACLOFEN 20 MG TABLET GT SCH ×4 (09:22→20:48)
[2022-08-17] MEDS: MINERAL OIL/PETROLATUM,WHITE 57 GM TUBE TP SCH (09:22)
[2022-08-17] MEDS: SERTRALINE HCL 50 MG TABLET GT SCH (09:22)
[2022-08-17] MEDS: REMEDY ESSENTIAL ZINC PASTE 113 GM TOP SCH ×2 (09:22→20:49)
[2022-08-17] MEDS: SIMETHICONE 80 MG TAB.CHEW GT SCH ×3 (09:22→17:00)
[2022-08-17] MEDS: KETOCONAZOLE 2% SHAMPOO 120 ML BOTTLE TP SCH (09:22)
[2022-08-17] MEDS: METOPROLOL TARTRATE 50 MG TABLET GT SCH ×2 (09:22→20:48)
[2022-08-17] MEDS: HALOBETASOL 0.05% TP SCH ×2 (09:22→20:49)
[2022-08-17 20:00] VITALS: TEMP 98.3
[2022-08-17] MEDS: ASCORBIC ACID 500 MG TABLET GT SCH (20:48)
[2022-08-17 21:11] VITALS: O2SAT 99
[2022-08-18] MEDS: OMEPRAZOLE 20 MG CAPSULE.DR GT SCH (05:39)
[2022-08-18 07:52] VITALS: TEMP 96.3
[2022-08-18] MEDS: HYDROGEN PEROXIDE 3% 118 ML BOTTLE TP SCH ×2 (09:00→18:44)
[2022-08-18] MEDS: ACIDOPHILUS/BULGARICUS CHEW TAB GT SCH ×2 (09:30→20:33)
[2022-08-18] MEDS: MINERAL OIL/PETROLATUM,WHITE 57 GM TUBE TP SCH (09:30)
[2022-08-18] MEDS: BACLOFEN 20 MG TABLET GT SCH ×4 (09:30→20:33)
[2022-08-18] MEDS: SERTRALINE HCL 50 MG TABLET GT SCH (09:30)
[2022-08-18] MEDS: REMEDY ESSENTIAL ZINC PASTE 113 GM TOP SCH ×2 (09:30→20:34)
[2022-08-18] MEDS: METOPROLOL TARTRATE 50 MG TABLET GT SCH ×2 (09:30→20:33)
[2022-08-18] MEDS: HALOBETASOL 0.05% TP SCH ×2 (09:31→20:34)
[2022-08-18] MEDS: SIMETHICONE 80 MG TAB.CHEW GT SCH ×3 (09:31→16:33)
[2022-08-18 18:44] VITALS: O2SAT 99
[2022-08-18] MEDS: ASCORBIC ACID 500 MG TABLET GT SCH (20:33)
[2022-08-18] MEDS: MULTIVIT, IRON, MIN NO. 8, FA TABLET GT SCH (20:33)
[2022-08-18 21:02] VITALS: O2SAT 99
[2022-08-18 22:44] VITALS: TEMP 97.6
[2022-08-19] MEDS: OMEPRAZOLE 20 MG CAPSULE.DR GT SCH (05:51)
[2022-08-19 07:43] VITALS: TEMP 98.8
[2022-08-19] MEDS: BACLOFEN 20 MG TABLET GT SCH ×4 (08:14→21:00)
[2022-08-19] MEDS: ACIDOPHILUS/BULGARICUS CHEW TAB GT SCH ×2 (08:14→21:00)
[2022-08-19] MEDS: SIMETHICONE 80 MG TAB.CHEW GT SCH ×3 (08:15→17:00)
[2022-08-19] MEDS: REMEDY ESSENTIAL ZINC PASTE 113 GM TOP SCH ×2 (08:15→21:00)
[2022-08-19] MEDS: SERTRALINE HCL 50 MG TABLET GT SCH (08:15)
[2022-08-19] MEDS: MINERAL OIL/PETROLATUM,WHITE 57 GM TUBE TP SCH (08:15)
[2022-08-19] MEDS: METOPROLOL TARTRATE 50 MG TABLET GT SCH ×2 (08:15→21:00)
[2022-08-19] MEDS: HALOBETASOL 0.05% TP SCH (08:15)
[2022-08-19] MEDS: HYDROGEN PEROXIDE 3% 118 ML BOTTLE TP SCH ×2 (09:40→21:00)
[2022-08-19 10:50] VITALS: O2SAT 99
[2022-08-19] MEDS: ASCORBIC ACID 500 MG TABLET GT SCH (21:00)
[2022-08-19] MEDS: GLUCERNA 1.2 1000ML LIQUID GT PRN (23:42)
[2022-08-20] MEDS: OMEPRAZOLE 20 MG CAPSULE.DR GT SCH (05:24)
[2022-08-20 07:52] VITALS: TEMP 98.6
[2022-08-20] MEDS: ACIDOPHILUS/BULGARICUS CHEW TAB GT SCH ×2 (09:33→21:16)
[2022-08-20] MEDS: BACLOFEN 20 MG TABLET GT SCH ×4 (09:34→21:16)
[2022-08-20] MEDS: MINERAL OIL/PETROLATUM,WHITE 57 GM TUBE TP SCH (09:34)
[2022-08-20] MEDS: METOPROLOL TARTRATE 50 MG TABLET GT SCH ×2 (09:34→21:17)
[2022-08-20] MEDS: REMEDY ESSENTIAL ZINC PASTE 113 GM TOP SCH ×2 (09:34→21:17)
[2022-08-20] MEDS: SERTRALINE HCL 50 MG TABLET GT SCH (09:34)
[2022-08-20] MEDS: SIMETHICONE 80 MG TAB.CHEW GT SCH ×3 (09:34→16:27)
[2022-08-20 09:40] VITALS: O2SAT 99
[2022-08-20] MEDS: HYDROGEN PEROXIDE 3% 118 ML BOTTLE TP SCH ×2 (09:54→21:07)
[2022-08-20 20:30] VITALS: O2SAT 99
[2022-08-20 21:10] VITALS: BP 119/65; TEMP 97.6; O2SAT 100
[2022-08-20] MEDS: ASCORBIC ACID 500 MG TABLET GT SCH (21:22)
[2022-08-20] MEDS: MULTIVIT, IRON, MIN NO. 8, FA TABLET GT SCH (21:22)
[2022-08-21] MEDS: OMEPRAZOLE 20 MG CAPSULE.DR GT SCH (06:09)
[2022-08-21 08:00] VITALS: TEMP 97.8
[2022-08-21] MEDS: ACIDOPHILUS/BULGARICUS CHEW TAB GT SCH ×2 (09:01→20:32)
[2022-08-21] MEDS: REMEDY ESSENTIAL ZINC PASTE 113 GM TOP SCH ×2 (09:04→20:32)
[2022-08-21] MEDS: SERTRALINE HCL 50 MG TABLET GT SCH (09:04)
[2022-08-21] MEDS: BACLOFEN 20 MG TABLET GT SCH ×4 (09:05→20:32)
[2022-08-21] MEDS: HYDROGEN PEROXIDE 3% 118 ML BOTTLE TP SCH ×2 (09:05→21:51)
[2022-08-21] MEDS: KETOCONAZOLE 2% SHAMPOO 120 ML BOTTLE TP SCH (09:05)
[2022-08-21] MEDS: MINERAL OIL/PETROLATUM,WHITE 57 GM TUBE TP SCH (09:05)
[2022-08-21] MEDS: METOPROLOL TARTRATE 50 MG TABLET GT SCH ×2 (09:08→20:32)
[2022-08-21] MEDS: SIMETHICONE 80 MG TAB.CHEW GT SCH ×3 (09:10→16:37)
[2022-08-21 09:40] VITALS: O2SAT 99
[2022-08-21 20:15] VITALS: O2SAT 99
[2022-08-21] MEDS: ASCORBIC ACID 500 MG TABLET GT SCH (20:32)
[2022-08-21 20:42] VITALS: TEMP 97.9
[2022-08-22] MEDS: OMEPRAZOLE 20 MG CAPSULE.DR GT SCH (06:56)
[2022-08-22 07:28] VITALS: TEMP 97.6
[2022-08-22] MEDS: ACIDOPHILUS/BULGARICUS CHEW TAB GT SCH ×2 (08:04→21:00)
[2022-08-22] MEDS: BACLOFEN 20 MG TABLET GT SCH ×4 (08:04→21:00)
[2022-08-22] MEDS: METOPROLOL TARTRATE 50 MG TABLET GT SCH ×2 (08:06→21:00)
[2022-08-22] MEDS: REMEDY ESSENTIAL ZINC PASTE 113 GM TOP SCH ×2 (08:06→21:00)
[2022-08-22] MEDS: SIMETHICONE 80 MG TAB.CHEW GT SCH ×3 (08:06→17:51)
[2022-08-22] MEDS: SERTRALINE HCL 50 MG TABLET GT SCH (08:06)
[2022-08-22] MEDS: MINERAL OIL/PETROLATUM,WHITE 57 GM TUBE TP SCH (08:06)
[2022-08-22 10:30] VITALS: O2SAT 99
[2022-08-22] MEDS: HYDROGEN PEROXIDE 3% 118 ML BOTTLE TP SCH ×2 (10:30→21:00)
[2022-08-22] MEDS: GLUCERNA 1.2 1000ML LIQUID GT PRN (18:10)
[2022-08-22 20:00] VITALS: TEMP 97.8
[2022-08-22 20:05] VITALS: O2SAT 99
[2022-08-22] MEDS: ASCORBIC ACID 500 MG TABLET GT SCH (21:00)
[2022-08-22] MEDS: MULTIVIT, IRON, MIN NO. 8, FA TABLET GT SCH (21:00)
[2022-08-23] MEDS: OMEPRAZOLE 20 MG CAPSULE.DR GT SCH (05:29)
[2022-08-23 08:00] VITALS: TEMP 97.5
[2022-08-23] MEDS: HYDROGEN PEROXIDE 3% 118 ML BOTTLE TP SCH ×2 (08:41→19:09)
[2022-08-23] MEDS: ACIDOPHILUS/BULGARICUS CHEW TAB GT SCH ×2 (09:00→21:00)
[2022-08-23] MEDS: BACLOFEN 20 MG TABLET GT SCH ×4 (09:00→21:00)
[2022-08-23] MEDS: REMEDY ESSENTIAL ZINC PASTE 113 GM TOP SCH ×2 (09:00→21:00)
[2022-08-23] MEDS: SERTRALINE HCL 50 MG TABLET GT SCH (09:00)
[2022-08-23] MEDS: SIMETHICONE 80 MG TAB.CHEW GT SCH ×3 (09:00→17:00)
[2022-08-23] MEDS: METOPROLOL TARTRATE 50 MG TABLET GT SCH ×2 (09:00→21:00)
[2022-08-23] MEDS: MINERAL OIL/PETROLATUM,WHITE 57 GM TUBE TP SCH (09:00)
[2022-08-23 09:45] VITALS: O2SAT 99
[2022-08-23] MEDS: GLUCERNA 1.2 1000ML LIQUID GT PRN (18:04)
[2022-08-23] MEDS: ASCORBIC ACID 500 MG TABLET GT SCH (21:00)
[2022-08-23 21:15] VITALS: O2SAT 99
[2022-08-24] MEDS: OMEPRAZOLE 20 MG CAPSULE.DR GT SCH (05:47)
[2022-08-24 07:30] VITALS: TEMP 97.8
[2022-08-24] MEDS: HYDROGEN PEROXIDE 3% 118 ML BOTTLE TP SCH ×2 (08:08→21:00)
[2022-08-24] MEDS: ACIDOPHILUS/BULGARICUS CHEW TAB GT SCH ×2 (09:07→20:32)
[2022-08-24] MEDS: REMEDY ESSENTIAL ZINC PASTE 113 GM TOP SCH ×2 (09:07→20:32)
[2022-08-24] MEDS: METOPROLOL TARTRATE 50 MG TABLET GT SCH ×2 (09:07→21:00)
[2022-08-24] MEDS: SIMETHICONE 80 MG TAB.CHEW GT SCH ×3 (09:07→17:09)
[2022-08-24] MEDS: MINERAL OIL/PETROLATUM,WHITE 57 GM TUBE TP SCH (09:07)
[2022-08-24] MEDS: BACLOFEN 20 MG TABLET GT SCH ×4 (09:07→20:32)
[2022-08-24] MEDS: SERTRALINE HCL 50 MG TABLET GT SCH (09:07)
[2022-08-24] MEDS: KETOCONAZOLE 2% SHAMPOO 120 ML BOTTLE TP SCH (09:07)
[2022-08-24 10:50] VITALS: O2SAT 98
[2022-08-24 20:00] VITALS: TEMP 98.4
[2022-08-24] MEDS: ASCORBIC ACID 500 MG TABLET GT SCH (20:32)
[2022-08-24] MEDS: MULTIVIT, IRON, MIN NO. 8, FA TABLET GT SCH (20:32)
[2022-08-24] MEDS: ACETAMINOPHEN 650 MG/20 ML UDC- SA PATIENTS-PAIN ONLY GT PRN (20:33)
[2022-08-24 21:25] VITALS: O2SAT 98
[2022-08-24] MEDS: GLUCERNA 1.2 1000ML LIQUID GT PRN (22:49)
[2022-08-25] MEDS: OMEPRAZOLE 20 MG CAPSULE.DR GT SCH (05:52)
[2022-08-25 07:44] VITALS: TEMP 98.6
[2022-08-25 09:00] VITALS: O2SAT 99
[2022-08-25] MEDS: HYDROGEN PEROXIDE 3% 118 ML BOTTLE TP SCH ×2 (09:00→23:46)
[2022-08-25] MEDS: ACIDOPHILUS/BULGARICUS CHEW TAB GT SCH ×2 (09:47→21:07)
[2022-08-25] MEDS: REMEDY ESSENTIAL ZINC PASTE 113 GM TOP SCH ×2 (09:47→21:07)
[2022-08-25] MEDS: SIMETHICONE 80 MG TAB.CHEW GT SCH ×3 (09:47→17:19)
[2022-08-25] MEDS: METOPROLOL TARTRATE 50 MG TABLET GT SCH ×2 (09:47→21:07)
[2022-08-25] MEDS: MINERAL OIL/PETROLATUM,WHITE 57 GM TUBE TP SCH (09:47)
[2022-08-25] MEDS: BACLOFEN 20 MG TABLET GT SCH ×4 (09:47→21:07)
[2022-08-25] MEDS: SERTRALINE HCL 50 MG TABLET GT SCH (09:47)
[2022-08-25] MEDS: ASCORBIC ACID 500 MG TABLET GT SCH (21:07)
[2022-08-25 21:10] VITALS: O2SAT 99
[2022-08-25 22:41] VITALS: TEMP 98
[2022-08-26] MEDS: GLUCERNA 1.2 1000ML LIQUID GT PRN (01:30)
[2022-08-26] MEDS: OMEPRAZOLE 20 MG CAPSULE.DR GT SCH (05:06)
[2022-08-26 08:00] VITALS: TEMP 97.2
[2022-08-26] MEDS: HYDROGEN PEROXIDE 3% 118 ML BOTTLE TP SCH ×2 (09:00→22:05)
[2022-08-26] MEDS: BACLOFEN 20 MG TABLET GT SCH ×4 (09:04→21:00)
[2022-08-26] MEDS: ACIDOPHILUS/BULGARICUS CHEW TAB GT SCH ×2 (09:04→21:00)
[2022-08-26] MEDS: SIMETHICONE 80 MG TAB.CHEW GT SCH ×3 (09:05→17:18)
[2022-08-26] MEDS: METOPROLOL TARTRATE 50 MG TABLET GT SCH ×2 (09:05→21:00)
[2022-08-26] MEDS: SERTRALINE HCL 50 MG TABLET GT SCH (09:06)
[2022-08-26] MEDS: REMEDY ESSENTIAL ZINC PASTE 113 GM TOP SCH ×2 (09:06→21:00)
[2022-08-26] MEDS: MINERAL OIL/PETROLATUM,WHITE 57 GM TUBE TP SCH (09:06)
[2022-08-26 09:10] VITALS: O2SAT 99
[2022-08-26 20:00] VITALS: TEMP 98.3
[2022-08-26 20:14] VITALS: O2SAT 99
[2022-08-26] MEDS: ASCORBIC ACID 500 MG TABLET GT SCH (21:00)
[2022-08-26] MEDS: MULTIVIT, IRON, MIN NO. 8, FA TABLET GT SCH (21:00)
[2022-08-27] MEDS: GLUCERNA 1.2 1000ML LIQUID GT PRN (02:53)
[2022-08-27] MEDS: OMEPRAZOLE 20 MG CAPSULE.DR GT SCH (05:18)
[2022-08-27 06:31] VITALS: O2SAT 99
[2022-08-27 08:04] VITALS: TEMP 98.6
[2022-08-27] MEDS: HYDROGEN PEROXIDE 3% 118 ML BOTTLE TP SCH ×2 (09:44→21:00)
[2022-08-27 09:55] VITALS: O2SAT 99
[2022-08-27] MEDS: BACLOFEN 20 MG TABLET GT SCH ×4 (09:59→21:00)
[2022-08-27] MEDS: METOPROLOL TARTRATE 50 MG TABLET GT SCH ×2 (09:59→21:00)
[2022-08-27] MEDS: ACIDOPHILUS/BULGARICUS CHEW TAB GT SCH ×2 (09:59→21:00)
[2022-08-27] MEDS: REMEDY ESSENTIAL ZINC PASTE 113 GM TOP SCH ×2 (10:00→21:00)
[2022-08-27] MEDS: SERTRALINE HCL 50 MG TABLET GT SCH (10:00)
[2022-08-27] MEDS: SIMETHICONE 80 MG TAB.CHEW GT SCH ×3 (10:00→16:47)
[2022-08-27] MEDS: MINERAL OIL/PETROLATUM,WHITE 57 GM TUBE TP SCH (10:00)
[2022-08-27] MEDS: ACETAMINOPHEN 650 MG/20 ML UDC- SA PATIENTS-PAIN ONLY GT PRN (12:37)
[2022-08-27 20:39] VITALS: O2SAT 99
[2022-08-27 20:41] VITALS: TEMP 97.6
[2022-08-27] MEDS: ASCORBIC ACID 500 MG TABLET GT SCH (21:00)
[2022-08-28] MEDS: OMEPRAZOLE 20 MG CAPSULE.DR GT SCH (05:56)
[2022-08-28 08:00] VITALS: TEMP 97.7
[2022-08-28 08:29] VITALS: O2SAT 98
[2022-08-28] MEDS: HYDROGEN PEROXIDE 3% 118 ML BOTTLE TP SCH ×2 (08:29→21:00)
[2022-08-28] MEDS: ACIDOPHILUS/BULGARICUS CHEW TAB GT SCH ×2 (09:58→20:07)
[2022-08-28] MEDS: BACLOFEN 20 MG TABLET GT SCH ×4 (09:58→20:07)
[2022-08-28] MEDS: SERTRALINE HCL 50 MG TABLET GT SCH (09:59)
[2022-08-28] MEDS: REMEDY ESSENTIAL ZINC PASTE 113 GM TOP SCH ×2 (09:59→20:08)
[2022-08-28] MEDS: METOPROLOL TARTRATE 50 MG TABLET GT SCH ×2 (09:59→21:00)
[2022-08-28] MEDS: KETOCONAZOLE 2% SHAMPOO 120 ML BOTTLE TP SCH (09:59)
[2022-08-28] MEDS: SIMETHICONE 80 MG TAB.CHEW GT SCH ×3 (09:59→17:12)
[2022-08-28] MEDS: MINERAL OIL/PETROLATUM,WHITE 57 GM TUBE TP SCH (09:59)
[2022-08-28 20:00] VITALS: TEMP 97.9
[2022-08-28] MEDS: MULTIVIT, IRON, MIN NO. 8, FA TABLET GT SCH (20:07)
[2022-08-28] MEDS: ASCORBIC ACID 500 MG TABLET GT SCH (20:08)
[2022-08-28 20:20] VITALS: O2SAT 99
[2022-08-29] MEDS: OMEPRAZOLE 20 MG CAPSULE.DR GT SCH (06:03)
[2022-08-29] MEDS: GLUCERNA 1.2 1000ML LIQUID GT PRN (06:03)
[2022-08-29 08:00] VITALS: TEMP 97.6
[2022-08-29] MEDS: SIMETHICONE 80 MG TAB.CHEW GT SCH ×3 (09:43→17:04)
[2022-08-29] MEDS: ACIDOPHILUS/BULGARICUS CHEW TAB GT SCH ×2 (09:43→21:55)
[2022-08-29] MEDS: SERTRALINE HCL 50 MG TABLET GT SCH (09:43)
[2022-08-29] MEDS: BACLOFEN 20 MG TABLET GT SCH ×4 (09:43→21:55)
[2022-08-29] MEDS: METOPROLOL TARTRATE 50 MG TABLET GT SCH ×2 (09:43→21:56)
[2022-08-29] MEDS: MINERAL OIL/PETROLATUM,WHITE 57 GM TUBE TP SCH (09:44)
[2022-08-29] MEDS: REMEDY ESSENTIAL ZINC PASTE 113 GM TOP SCH ×2 (09:44→21:56)
[2022-08-29 09:50] VITALS: O2SAT 98
[2022-08-29] MEDS: HYDROGEN PEROXIDE 3% 118 ML BOTTLE TP SCH ×2 (09:50→21:00)
[2022-08-29 20:00] VITALS: TEMP 98; O2SAT 99
[2022-08-29] MEDS: ASCORBIC ACID 500 MG TABLET GT SCH (21:56)
[2022-08-30] MEDS: OMEPRAZOLE 20 MG CAPSULE.DR GT SCH (05:47)
[2022-08-30] MEDS: GLUCERNA 1.2 1000ML LIQUID GT PRN (05:47)
[2022-08-30 08:00] VITALS: TEMP 97.6
[2022-08-30] MEDS: MINERAL OIL/PETROLATUM,WHITE 57 GM TUBE TP SCH (09:00)
[2022-08-30] MEDS: ACIDOPHILUS/BULGARICUS CHEW TAB GT SCH ×2 (09:15→21:00)
[2022-08-30] MEDS: BACLOFEN 20 MG TABLET GT SCH ×4 (09:15→21:00)
[2022-08-30] MEDS: SERTRALINE HCL 50 MG TABLET GT SCH (09:16)
[2022-08-30] MEDS: SIMETHICONE 80 MG TAB.CHEW GT SCH ×3 (09:16→17:40)
[2022-08-30] MEDS: METOPROLOL TARTRATE 50 MG TABLET GT SCH ×2 (09:17→21:00)
[2022-08-30] MEDS: REMEDY ESSENTIAL ZINC PASTE 113 GM TOP SCH ×2 (09:17→21:00)
[2022-08-30] MEDS: HYDROGEN PEROXIDE 3% 118 ML BOTTLE TP SCH ×2 (09:22→22:40)
[2022-08-30 09:40] VITALS: O2SAT 98
[2022-08-30 20:00] VITALS: TEMP 98
[2022-08-30 20:35] VITALS: O2SAT 99
[2022-08-30] MEDS: MULTIVIT, IRON, MIN NO. 8, FA TABLET GT SCH (21:00)
[2022-08-30] MEDS: ASCORBIC ACID 500 MG TABLET GT SCH (21:00)
[2022-08-31] MEDS: OMEPRAZOLE 20 MG CAPSULE.DR GT SCH (05:33)
[2022-08-31] MEDS: HYDROGEN PEROXIDE 3% 118 ML BOTTLE TP SCH ×2 (07:28→22:24)
[2022-08-31 07:35] VITALS: TEMP 97.8
[2022-08-31] MEDS: METOPROLOL TARTRATE 50 MG TABLET GT SCH ×2 (08:55→21:34)
[2022-08-31] MEDS: ACIDOPHILUS/BULGARICUS CHEW TAB GT SCH ×2 (08:56→21:32)
[2022-08-31] MEDS: BACLOFEN 20 MG TABLET GT SCH ×4 (08:56→21:33)
[2022-08-31] MEDS: MINERAL OIL/PETROLATUM,WHITE 57 GM TUBE TP SCH (08:57)
[2022-08-31] MEDS: SERTRALINE HCL 50 MG TABLET GT SCH (08:57)
[2022-08-31] MEDS: SIMETHICONE 80 MG TAB.CHEW GT SCH ×3 (08:57→17:19)
[2022-08-31] MEDS: REMEDY ESSENTIAL ZINC PASTE 113 GM TOP SCH ×2 (08:57→21:35)
[2022-08-31] MEDS: KETOCONAZOLE 2% SHAMPOO 120 ML BOTTLE TP SCH (08:57)
[2022-08-31 10:00] VITALS: O2SAT 99
[2022-08-31 10:45] VITALS: O2SAT 98
[2022-08-31 20:29] VITALS: O2SAT 99
[2022-08-31] MEDS: ASCORBIC ACID 500 MG TABLET GT SCH (21:34)
[2022-09-01] MEDS: OMEPRAZOLE 20 MG CAPSULE.DR GT SCH (05:20)
[2022-09-01 07:49] VITALS: TEMP 97.8
[2022-09-01 08:06] VITALS: O2SAT 99
[2022-09-01] MEDS: HYDROGEN PEROXIDE 3% 118 ML BOTTLE TP SCH ×2 (08:06→19:23)
[2022-09-01] MEDS: ACIDOPHILUS/BULGARICUS CHEW TAB GT SCH ×2 (09:06→21:00)
[2022-09-01] MEDS: BACLOFEN 20 MG TABLET GT SCH ×4 (09:06→21:00)
[2022-09-01] MEDS: SIMETHICONE 80 MG TAB.CHEW GT SCH ×3 (09:07→16:59)
[2022-09-01] MEDS: SERTRALINE HCL 50 MG TABLET GT SCH (09:07)
[2022-09-01] MEDS: MINERAL OIL/PETROLATUM,WHITE 57 GM TUBE TP SCH (09:07)
[2022-09-01] MEDS: METOPROLOL TARTRATE 50 MG TABLET GT SCH ×2 (09:07→21:00)
[2022-09-01] MEDS: REMEDY ESSENTIAL ZINC PASTE 113 GM TOP SCH ×2 (09:07→21:00)
[2022-09-01] MEDS: GLUCERNA 1.2 1000ML LIQUID GT PRN (16:59)
[2022-09-01 20:00] VITALS: TEMP 98.8
[2022-09-01] MEDS: MULTIVIT, IRON, MIN NO. 8, FA TABLET GT SCH (21:00)
[2022-09-01] MEDS: ASCORBIC ACID 500 MG TABLET GT SCH (21:00)
[2022-09-01 21:09] VITALS: O2SAT 98
[2022-09-02] MEDS: OMEPRAZOLE 20 MG CAPSULE.DR GT SCH (06:00)
[2022-09-02 08:00] VITALS: TEMP 98.2
[2022-09-02] MEDS: ACIDOPHILUS/BULGARICUS CHEW TAB GT SCH ×2 (08:48→21:52)
[2022-09-02] MEDS: BACLOFEN 20 MG TABLET GT SCH ×4 (08:48→21:52)
[2022-09-02] MEDS: METOPROLOL TARTRATE 50 MG TABLET GT SCH ×2 (08:48→21:53)
[2022-09-02] MEDS: SIMETHICONE 80 MG TAB.CHEW GT SCH ×3 (08:49→17:29)
[2022-09-02] MEDS: REMEDY ESSENTIAL ZINC PASTE 113 GM TOP SCH ×2 (08:49→21:53)
[2022-09-02] MEDS: SERTRALINE HCL 50 MG TABLET GT SCH (08:49)
[2022-09-02] MEDS: MINERAL OIL/PETROLATUM,WHITE 57 GM TUBE TP SCH (08:49)
[2022-09-02] MEDS: HYDROGEN PEROXIDE 3% 118 ML BOTTLE TP SCH ×2 (09:41→21:06)
[2022-09-02 10:50] VITALS: O2SAT 98
[2022-09-02] MEDS: GLUCERNA 1.2 1000ML LIQUID GT PRN (18:30)
[2022-09-02 20:00] VITALS: TEMP 97.6
[2022-09-02 21:15] VITALS: O2SAT 98
[2022-09-02] MEDS: ASCORBIC ACID 500 MG TABLET GT SCH (21:53)
[2022-09-03] MEDS: OMEPRAZOLE 20 MG CAPSULE.DR GT SCH (06:17)
[2022-09-03] MEDS: METOPROLOL TARTRATE 50 MG TABLET GT SCH ×2 (08:11→21:30)
[2022-09-03] MEDS: SIMETHICONE 80 MG TAB.CHEW GT SCH ×3 (08:24→17:31)
[2022-09-03] MEDS: MINERAL OIL/PETROLATUM,WHITE 57 GM TUBE TP SCH (08:24)
[2022-09-03] MEDS: BACLOFEN 20 MG TABLET GT SCH ×4 (08:24→21:30)
[2022-09-03] MEDS: SERTRALINE HCL 50 MG TABLET GT SCH (08:24)
[2022-09-03] MEDS: ACIDOPHILUS/BULGARICUS CHEW TAB GT SCH ×2 (08:24→21:30)
[2022-09-03] MEDS: REMEDY ESSENTIAL ZINC PASTE 113 GM TOP SCH ×2 (08:24→21:31)
[2022-09-03 09:18] VITALS: TEMP 97.6
[2022-09-03] MEDS: HYDROGEN PEROXIDE 3% 118 ML BOTTLE TP SCH ×2 (09:20→21:00)
[2022-09-03 12:41] VITALS: O2SAT 99
[2022-09-03] MEDS: GLUCERNA 1.2 1000ML LIQUID GT PRN (18:29)
[2022-09-03 20:20] VITALS: O2SAT 98
[2022-09-03 20:43] VITALS: TEMP 98.4
[2022-09-03] MEDS: ASCORBIC ACID 500 MG TABLET GT SCH (21:31)
[2022-09-03] MEDS: ACETAMINOPHEN 650 MG/20 ML UDC- SA PATIENTS-PAIN ONLY GT PRN (21:31)
[2022-09-03] MEDS: MULTIVIT, IRON, MIN NO. 8, FA TABLET GT SCH (21:31)
[2022-09-04] MEDS: OMEPRAZOLE 20 MG CAPSULE.DR GT SCH (05:31)
[2022-09-04] MEDS: ACIDOPHILUS/BULGARICUS CHEW TAB GT SCH ×2 (08:59→21:00)
[2022-09-04] MEDS: BACLOFEN 20 MG TABLET GT SCH ×4 (08:59→21:00)
[2022-09-04] MEDS: SERTRALINE HCL 50 MG TABLET GT SCH (09:00)
[2022-09-04] MEDS: SIMETHICONE 80 MG TAB.CHEW GT SCH ×3 (09:00→17:31)
[2022-09-04] MEDS: KETOCONAZOLE 2% SHAMPOO 120 ML BOTTLE TP SCH (09:00)
[2022-09-04] MEDS: HYDROGEN PEROXIDE 3% 118 ML BOTTLE TP SCH ×2 (09:00→21:30)
[2022-09-04] MEDS: METOPROLOL TARTRATE 50 MG TABLET GT SCH ×2 (09:00→21:00)
[2022-09-04] MEDS: REMEDY ESSENTIAL ZINC PASTE 113 GM TOP SCH ×2 (09:00→21:00)
[2022-09-04] MEDS: MINERAL OIL/PETROLATUM,WHITE 57 GM TUBE TP SCH (09:00)
[2022-09-04 11:12] VITALS: O2SAT 99
[2022-09-04 20:25] VITALS: O2SAT 98
[2022-09-04 20:34] VITALS: TEMP 98.2
[2022-09-04] MEDS: ASCORBIC ACID 500 MG TABLET GT SCH (21:00)
[2022-09-05] MEDS: GLUCERNA 1.2 1000ML LIQUID GT PRN (00:03)
[2022-09-05] MEDS: OMEPRAZOLE 20 MG CAPSULE.DR GT SCH (05:39)
[2022-09-05 08:00] VITALS: TEMP 97.5
[2022-09-05] MEDS: ACIDOPHILUS/BULGARICUS CHEW TAB GT SCH ×2 (08:12→21:58)
[2022-09-05] MEDS: BACLOFEN 20 MG TABLET GT SCH ×4 (08:12→21:58)
[2022-09-05] MEDS: METOPROLOL TARTRATE 50 MG TABLET GT SCH ×2 (08:14→22:01)
[2022-09-05] MEDS: SERTRALINE HCL 50 MG TABLET GT SCH (08:15)
[2022-09-05] MEDS: SIMETHICONE 80 MG TAB.CHEW GT SCH ×3 (08:15→17:00)
[2022-09-05] MEDS: MINERAL OIL/PETROLATUM,WHITE 57 GM TUBE TP SCH (08:15)
[2022-09-05] MEDS: REMEDY ESSENTIAL ZINC PASTE 113 GM TOP SCH ×2 (08:15→21:00)
[2022-09-05] MEDS: HYDROGEN PEROXIDE 3% 118 ML BOTTLE TP SCH ×2 (09:05→21:00)
[2022-09-05 10:30] VITALS: O2SAT 99
[2022-09-05 20:09] VITALS: TEMP 98.2
[2022-09-05] MEDS: ASCORBIC ACID 500 MG TABLET GT SCH (21:00)
[2022-09-05] MEDS: MULTIVIT, IRON, MIN NO. 8, FA TABLET GT SCH (21:00)
[2022-09-05 21:16] VITALS: O2SAT 98
[2022-09-06] MEDS: GLUCERNA 1.2 1000ML LIQUID GT PRN (03:56)
[2022-09-06] MEDS: OMEPRAZOLE 20 MG CAPSULE.DR GT SCH (05:59)
[2022-09-06 07:44] VITALS: TEMP 97.4
[2022-09-06 07:45] VITALS: TEMP 97.2
[2022-09-06] MEDS: BACLOFEN 20 MG TABLET GT SCH ×4 (08:51→20:56)
[2022-09-06] MEDS: ACIDOPHILUS/BULGARICUS CHEW TAB GT SCH ×2 (08:51→20:55)
[2022-09-06] MEDS: METOPROLOL TARTRATE 50 MG TABLET GT SCH ×2 (08:52→20:57)
[2022-09-06] MEDS: SIMETHICONE 80 MG TAB.CHEW GT SCH ×3 (08:53→17:57)
[2022-09-06] MEDS: SERTRALINE HCL 50 MG TABLET GT SCH (08:53)
[2022-09-06] MEDS: REMEDY ESSENTIAL ZINC PASTE 113 GM TOP SCH ×2 (08:53→20:57)
[2022-09-06] MEDS: MINERAL OIL/PETROLATUM,WHITE 57 GM TUBE TP SCH (09:00)
[2022-09-06] MEDS: HYDROGEN PEROXIDE 3% 118 ML BOTTLE TP SCH ×2 (09:47→21:36)
[2022-09-06 10:00] VITALS: O2SAT 99
[2022-09-06 20:00] VITALS: TEMP 98
[2022-09-06 20:10] VITALS: O2SAT 98
[2022-09-06] MEDS: ASCORBIC ACID 500 MG TABLET GT SCH (20:57)
[2022-09-07] MEDS: OMEPRAZOLE 20 MG CAPSULE.DR GT SCH (05:41)
[2022-09-07] MEDS: GLUCERNA 1.2 1000ML LIQUID GT PRN (06:23)
[2022-09-07 07:47] VITALS: TEMP 97.7
[2022-09-07 08:15] VITALS: O2SAT 98
[2022-09-07] MEDS: BACLOFEN 20 MG TABLET GT SCH ×4 (08:53→21:59)
[2022-09-07] MEDS: METOPROLOL TARTRATE 50 MG TABLET GT SCH ×2 (08:53→21:59)
[2022-09-07] MEDS: ACIDOPHILUS/BULGARICUS CHEW TAB GT SCH ×2 (08:53→21:59)
[2022-09-07] MEDS: REMEDY ESSENTIAL ZINC PASTE 113 GM TOP SCH ×2 (08:54→21:59)
[2022-09-07] MEDS: SIMETHICONE 80 MG TAB.CHEW GT SCH ×3 (08:54→17:09)
[2022-09-07] MEDS: MINERAL OIL/PETROLATUM,WHITE 57 GM TUBE TP SCH (08:54)
[2022-09-07] MEDS: SERTRALINE HCL 50 MG TABLET GT SCH (08:54)
[2022-09-07] MEDS: KETOCONAZOLE 2% SHAMPOO 120 ML BOTTLE TP SCH (08:54)
[2022-09-07] MEDS: HYDROGEN PEROXIDE 3% 118 ML BOTTLE TP SCH ×2 (09:00→21:30)
[2022-09-07 20:05] VITALS: O2SAT 98
[2022-09-07 20:17] VITALS: TEMP 98
[2022-09-07] MEDS: MULTIVIT, IRON, MIN NO. 8, FA TABLET GT SCH (21:59)
[2022-09-07] MEDS: ASCORBIC ACID 500 MG TABLET GT SCH (21:59)
[2022-09-08] MEDS: OMEPRAZOLE 20 MG CAPSULE.DR GT SCH (05:52)
[2022-09-08 07:46] VITALS: TEMP 97.8
[2022-09-08] MEDS: ACIDOPHILUS/BULGARICUS CHEW TAB GT SCH ×2 (09:21→21:56)
[2022-09-08] MEDS: BACLOFEN 20 MG TABLET GT SCH ×4 (09:21→21:56)
[2022-09-08] MEDS: METOPROLOL TARTRATE 50 MG TABLET GT SCH ×2 (09:22→21:57)
[2022-09-08] MEDS: SIMETHICONE 80 MG TAB.CHEW GT SCH ×3 (09:23→16:24)
[2022-09-08] MEDS: REMEDY ESSENTIAL ZINC PASTE 113 GM TOP SCH ×2 (09:23→21:57)
[2022-09-08] MEDS: MINERAL OIL/PETROLATUM,WHITE 57 GM TUBE TP SCH (09:23)
[2022-09-08] MEDS: SERTRALINE HCL 50 MG TABLET GT SCH (09:23)
[2022-09-08] MEDS: HYDROGEN PEROXIDE 3% 118 ML BOTTLE TP SCH ×2 (09:58→23:22)
[2022-09-08] MEDS: GLUCERNA 1.2 1000ML LIQUID GT PRN (10:37)
[2022-09-08 10:50] VITALS: O2SAT 98
[2022-09-08 20:00] VITALS: TEMP 98.3
[2022-09-08 20:47] VITALS: O2SAT 98
[2022-09-08] MEDS: ASCORBIC ACID 500 MG TABLET GT SCH (21:57)
[2022-09-09] MEDS: OMEPRAZOLE 20 MG CAPSULE.DR GT SCH (06:17)
[2022-09-09 08:05] VITALS: TEMP 97.7
[2022-09-09] MEDS: HYDROGEN PEROXIDE 3% 118 ML BOTTLE TP SCH ×2 (08:55→21:45)
[2022-09-09] MEDS: ACIDOPHILUS/BULGARICUS CHEW TAB GT SCH ×2 (09:35→21:37)
[2022-09-09] MEDS: BACLOFEN 20 MG TABLET GT SCH ×4 (09:35→21:37)
[2022-09-09] MEDS: METOPROLOL TARTRATE 50 MG TABLET GT SCH ×2 (09:35→21:37)
[2022-09-09] MEDS: MINERAL OIL/PETROLATUM,WHITE 57 GM TUBE TP SCH (09:36)
[2022-09-09] MEDS: SIMETHICONE 80 MG TAB.CHEW GT SCH ×3 (09:36→18:00)
[2022-09-09] MEDS: REMEDY ESSENTIAL ZINC PASTE 113 GM TOP SCH ×2 (09:36→21:37)
[2022-09-09] MEDS: SERTRALINE HCL 50 MG TABLET GT SCH (09:36)
[2022-09-09] MEDS: GLUCERNA 1.2 1000ML LIQUID GT PRN (10:01)
[2022-09-09 10:20] VITALS: O2SAT 99
[2022-09-09 20:00] VITALS: TEMP 99.1
[2022-09-09] MEDS: MULTIVIT, IRON, MIN NO. 8, FA TABLET GT SCH (21:37)
[2022-09-09] MEDS: ASCORBIC ACID 500 MG TABLET GT SCH (21:37)
[2022-09-09] MEDS: ACETAMINOPHEN 650 MG/20 ML UDC- SA PATIENTS-PAIN ONLY GT PRN (21:59)
[2022-09-10 04:16] VITALS: TEMP 97.7
[2022-09-10] MEDS: OMEPRAZOLE 20 MG CAPSULE.DR GT SCH (05:43)
[2022-09-10 07:35] VITALS: TEMP 98.5
[2022-09-10] MEDS: HYDROGEN PEROXIDE 3% 118 ML BOTTLE TP SCH ×2 (07:40→22:07)
[2022-09-10] MEDS: METOPROLOL TARTRATE 50 MG TABLET GT SCH ×2 (09:00→21:45)
[2022-09-10] MEDS: MINERAL OIL/PETROLATUM,WHITE 57 GM TUBE TP SCH (09:00)
[2022-09-10] MEDS: REMEDY ESSENTIAL ZINC PASTE 113 GM TOP SCH ×2 (09:00→21:45)
[2022-09-10] MEDS: ACIDOPHILUS/BULGARICUS CHEW TAB GT SCH ×2 (09:00→21:45)
[2022-09-10] MEDS: SERTRALINE HCL 50 MG TABLET GT SCH (09:00)
[2022-09-10] MEDS: BACLOFEN 20 MG TABLET GT SCH ×4 (09:00→21:45)
[2022-09-10] MEDS: SIMETHICONE 80 MG TAB.CHEW GT SCH ×3 (09:00→17:17)
[2022-09-10 10:15] VITALS: O2SAT 97
[2022-09-10 20:14] VITALS: TEMP 98.2
[2022-09-10 20:33] VITALS: O2SAT 98
[2022-09-10] MEDS: ASCORBIC ACID 500 MG TABLET GT SCH (21:45)
[2022-09-11] MEDS: OMEPRAZOLE 20 MG CAPSULE.DR GT SCH (05:26)
[2022-09-11 07:29] VITALS: TEMP 97.7
[2022-09-11 08:40] LABS: BASOPHILS % (AUTO) 0.5 % (0.0-2.0); EOSINOPHILS # (AUTO) 0.2 K/uL (0.0-0.7); EOSINOPHILS % (AUTO) 2.6 % (0.0-7.0); HEMATOCRIT 37.6 % (31.2-41.9); HEMOGLOBIN 11.6 g/dL (10.9-14.3); LYMPHOCYTES # (AUTO) 2.5 K/uL (0.8-4.8); MEAN CORPUSCULAR HEMOGLOBIN 22.2 uug (24.7-32.8); MEAN CORPUSCULAR HGB CONC 31 g/dL (32.3-35.6); MEAN CORPUSCULAR VOLUME 72.1 fL (75.5-95.3); MONOCYTES # (AUTO) 0.6 K/uL (0.1-1.30); MONOCYTES % (AUTO) 6.2 % (0.0-11.0); NEUTROPHILS # (AUTO) 5.9 K/uL (1.8-8.9); NEUTROPHILS % (AUTO) 63.7 % (38.5-71.5); PLATELET COUNT (AUTO) 211 K/uL (179-408); RED BLOOD CELL COUNT(AUTO) 5.22 MIL/uL (3.63-4.92); RED CELL DISTRIBUTION WIDTH 15.7 % (12.3-17.7); WHITE BLOOD COUNT (AUTO) 9.3 K/uL (3.8-11.8)
[2022-09-11 08:42] LABS: DIFFERENTIAL COMMENT 1
[2022-09-11] MEDS: KETOCONAZOLE 2% SHAMPOO 120 ML BOTTLE TP SCH (09:00)
[2022-09-11] MEDS: HYDROGEN PEROXIDE 3% 118 ML BOTTLE TP SCH ×2 (09:11→21:58)
[2022-09-11] MEDS: ACIDOPHILUS/BULGARICUS CHEW TAB GT SCH ×2 (09:56→21:06)
[2022-09-11] MEDS: BACLOFEN 20 MG TABLET GT SCH ×4 (09:57→21:07)
[2022-09-11] MEDS: METOPROLOL TARTRATE 50 MG TABLET GT SCH ×2 (09:58→21:07)
[2022-09-11] MEDS: SIMETHICONE 80 MG TAB.CHEW GT SCH ×3 (09:58→17:07)
[2022-09-11] MEDS: REMEDY ESSENTIAL ZINC PASTE 113 GM TOP SCH ×2 (09:59→21:08)
[2022-09-11] MEDS: SERTRALINE HCL 50 MG TABLET GT SCH (09:59)
[2022-09-11] MEDS: MINERAL OIL/PETROLATUM,WHITE 57 GM TUBE TP SCH (10:00)
[2022-09-11 10:38] LABS: *BILIRUBIN,URIN NEGATIVE (NEGATIVE); *BLOOD, URINE NEGATIVE (NEGATIVE); *CLARITY,URINE CLEAR (CLEAR); *COLOR,URINE YELLOW (YELLOW); *KETONES,URINE NEGATIVE (NEGATIVE); *PROTEIN,URINE NEGATIVE (NEGATIVE); *UROBILINOGEN,URINE 0.2 E.U./dl (NORMAL); LEUKOCYTE ESTERASE ,URINE 3+ (NEGATIVE); NITRITE, URINE POSITIVE (NEGATIVE); PH,URINE 7.5 (5.0-8.0); UGLUCOSE NEGATIVE (NEGATIVE)
[2022-09-11 13:22] LABS: BACTERIA,URINE MANY /HPF (NONE SEEN); CALCIUM CARBONATE CRYSTALS,UR NONE SEEN /HPF (NONE SEEN); RBC,URINE 0-3 /HPF (0-3); SQUAMOUS EPITHELIAL CELL,UR FEW /HPF (NONE SEEN); TRICHOMONAS,URINE NONE SEEN /HPF (NONE SEEN); WBC,URINE 20-50 /HPF (0-3); YEAST,URINE NONE SEEN /HPF (NONE SEEN)
[2022-09-11 13:23] LABS: CALCIUM OXALATE CRYSTALS,UR NONE SEEN /HPF (NONE SEEN); CALCIUM PHOSPHATE CRYSTALS,UR NONE SEEN /HPF (NONE SEEN); COARSE GRANULAR CASTS,URINE NONE SEEN /LPF; CYSTINE CRYSTALS,URINE NONE SEEN /HPF (NONE SEEN); FATTY CASTS,URINE NONE SEEN /LPF (NONE SEEN); MUCUS,URINE FEW /LPF (0-FEW); OTHER CASTS, URINE None Seen /LPF (None Seen); RED BLOOD CELL CASTS,URINE NONE SEEN /LPF (NONE SEEN); SPERM,URINE NONE SEEN /HPF (NONE SEEN); TRIPLE PHOSPHATE CRYSTAL,UR NONE SEEN /HPF (NONE SEEN); TYROSINE CRYSTAL,URINE NONE SEEN /HPF (NONE SEEN); URIC ACID CRYSTALS,URINE NONE SEEN /HPF (NONE SEEN); URINE AMORPHOUS PHOSPHATES NONE SEEN /HPF; URINE AMORPHOUS URATE NONE SEEN /HPF; WAXY CASTS,URINE NONE SEEN /LPF (NONE SEEN)
[2022-09-11 16:36] LABS: EOSINOPHILS % (MANUAL) 2 % (0-8); LYMPHOCYTES % (MANUAL) 25 % (20-40); MONOCYTES % (MANUAL) 8 % (2-10); NEUTROPHILS % (MANUAL) 65 % (42-75)
[2022-09-11 20:05] VITALS: TEMP 98.9
[2022-09-11 20:22] VITALS: O2SAT 97
[2022-09-11] MEDS: MULTIVIT, IRON, MIN NO. 8, FA TABLET GT SCH (21:08)
[2022-09-11] MEDS: ASCORBIC ACID 500 MG TABLET GT SCH (21:08)
[2022-09-12] MEDS: OMEPRAZOLE 20 MG CAPSULE.DR GT SCH (06:04)
[2022-09-12 07:22] VITALS: TEMP 97.7
[2022-09-12] MEDS: ACIDOPHILUS/BULGARICUS CHEW TAB GT SCH ×2 (08:30→21:41)
[2022-09-12] MEDS: BACLOFEN 20 MG TABLET GT SCH ×4 (08:31→21:41)
[2022-09-12] MEDS: REMEDY ESSENTIAL ZINC PASTE 113 GM TOP SCH ×2 (08:32→21:41)
[2022-09-12] MEDS: SIMETHICONE 80 MG TAB.CHEW GT SCH ×3 (08:32→17:23)
[2022-09-12] MEDS: SERTRALINE HCL 50 MG TABLET GT SCH (08:32)
[2022-09-12] MEDS: METOPROLOL TARTRATE 50 MG TABLET GT SCH ×2 (08:32→21:41)
[2022-09-12] MEDS: MINERAL OIL/PETROLATUM,WHITE 57 GM TUBE TP SCH (08:33)
[2022-09-12 09:00] VITALS: O2SAT 97
[2022-09-12] MEDS: HYDROGEN PEROXIDE 3% 118 ML BOTTLE TP SCH ×2 (09:00→19:22)
[2022-09-12] MEDS: GLUCERNA 1.2 1000ML LIQUID GT PRN (14:58)
[2022-09-12 20:02] VITALS: TEMP 98.1
[2022-09-12 21:40] VITALS: O2SAT 97
[2022-09-12] MEDS: ASCORBIC ACID 500 MG TABLET GT SCH (21:41)
[2022-09-13] MEDS: OMEPRAZOLE 20 MG CAPSULE.DR GT SCH (05:43)
[2022-09-13 07:26] VITALS: TEMP 97.8
[2022-09-13] MEDS: HYDROGEN PEROXIDE 3% 118 ML BOTTLE TP SCH ×2 (08:48→21:37)
[2022-09-13] MEDS: REMEDY ESSENTIAL ZINC PASTE 113 GM TOP SCH ×2 (09:18→21:10)
[2022-09-13] MEDS: SERTRALINE HCL 50 MG TABLET GT SCH (09:18)
[2022-09-13] MEDS: METOPROLOL TARTRATE 50 MG TABLET GT SCH ×2 (09:18→21:10)
[2022-09-13] MEDS: BACLOFEN 20 MG TABLET GT SCH ×4 (09:18→21:10)
[2022-09-13] MEDS: ACIDOPHILUS/BULGARICUS CHEW TAB GT SCH ×2 (09:18→21:10)
[2022-09-13] MEDS: MINERAL OIL/PETROLATUM,WHITE 57 GM TUBE TP SCH (09:18)
[2022-09-13] MEDS: SIMETHICONE 80 MG TAB.CHEW GT SCH ×3 (09:18→17:32)
[2022-09-13 09:55] VITALS: O2SAT 97
[2022-09-13 13:31] VITALS: O2SAT 97
[2022-09-13 20:42] VITALS: TEMP 98
[2022-09-13 21:06] VITALS: O2SAT 98
[2022-09-13] MEDS: ASCORBIC ACID 500 MG TABLET GT SCH (21:10)
[2022-09-13] MEDS: MULTIVIT, IRON, MIN NO. 8, FA TABLET GT SCH (21:10)
[2022-09-14] MEDS: levoFLOXacin 500 MG TABLET GT SCH (06:03)
[2022-09-14] MEDS: OMEPRAZOLE 20 MG CAPSULE.DR GT SCH (06:03)
[2022-09-14] MEDS: HYDROGEN PEROXIDE 3% 118 ML BOTTLE TP SCH ×2 (07:29→21:00)
[2022-09-14 07:58] VITALS: BP 138/97; TEMP 98.1; O2SAT 97
[2022-09-14] MEDS: ACIDOPHILUS/BULGARICUS CHEW TAB GT SCH ×2 (09:49→21:53)
[2022-09-14] MEDS: BACLOFEN 20 MG TABLET GT SCH ×4 (09:49→21:53)
[2022-09-14] MEDS: METOPROLOL TARTRATE 50 MG TABLET GT SCH ×2 (09:50→21:00)
[2022-09-14] MEDS: REMEDY ESSENTIAL ZINC PASTE 113 GM TOP SCH ×2 (09:51→21:55)
[2022-09-14] MEDS: SERTRALINE HCL 50 MG TABLET GT SCH (09:51)
[2022-09-14] MEDS: SIMETHICONE 80 MG TAB.CHEW GT SCH ×3 (09:51→17:26)
[2022-09-14] MEDS: MINERAL OIL/PETROLATUM,WHITE 57 GM TUBE TP SCH (09:53)
[2022-09-14] MEDS: KETOCONAZOLE 2% SHAMPOO 120 ML BOTTLE TP SCH (09:54)
[2022-09-14 10:25] VITALS: O2SAT 98
[2022-09-14 20:14] VITALS: O2SAT 98
[2022-09-14] MEDS: ASCORBIC ACID 500 MG TABLET GT SCH (21:55)
[2022-09-15] MEDS: GLUCERNA 1.2 1000ML LIQUID GT PRN (00:19)
[2022-09-15 06:28] VITALS: O2SAT 98
[2022-09-15] MEDS: OMEPRAZOLE 20 MG CAPSULE.DR GT SCH (06:33)
[2022-09-15] MEDS: levoFLOXacin 500 MG TABLET GT SCH (06:33)
[2022-09-15 08:09] VITALS: TEMP 98.3
[2022-09-15] MEDS: HYDROGEN PEROXIDE 3% 118 ML BOTTLE TP SCH ×2 (08:25→19:05)
[2022-09-15] MEDS: ACIDOPHILUS/BULGARICUS CHEW TAB GT SCH ×2 (10:00→21:00)
[2022-09-15] MEDS: SERTRALINE HCL 50 MG TABLET GT SCH (10:00)
[2022-09-15] MEDS: BACLOFEN 20 MG TABLET GT SCH ×4 (10:00→21:00)
[2022-09-15] MEDS: MINERAL OIL/PETROLATUM,WHITE 57 GM TUBE TP SCH (10:00)
[2022-09-15] MEDS: METOPROLOL TARTRATE 50 MG TABLET GT SCH ×2 (10:00→21:00)
[2022-09-15] MEDS: SIMETHICONE 80 MG TAB.CHEW GT SCH ×3 (10:00→17:59)
[2022-09-15] MEDS: REMEDY ESSENTIAL ZINC PASTE 113 GM TOP SCH ×2 (10:00→21:00)
[2022-09-15 20:10] VITALS: O2SAT 98
[2022-09-15] MEDS: MULTIVIT, IRON, MIN NO. 8, FA TABLET GT SCH (21:00)
[2022-09-15] MEDS: ASCORBIC ACID 500 MG TABLET GT SCH (21:00)
[2022-09-16] MEDS: GLUCERNA 1.2 1000ML LIQUID GT PRN (03:59)
[2022-09-16] MEDS: OMEPRAZOLE 20 MG CAPSULE.DR GT SCH (05:57)
[2022-09-16] MEDS: levoFLOXacin 500 MG TABLET GT SCH (05:57)
[2022-09-16 07:57] VITALS: TEMP 97.7
[2022-09-16] MEDS: ACIDOPHILUS/BULGARICUS CHEW TAB GT SCH ×2 (08:17→21:00)
[2022-09-16] MEDS: BACLOFEN 20 MG TABLET GT SCH ×4 (08:17→21:00)
[2022-09-16] MEDS: MINERAL OIL/PETROLATUM,WHITE 57 GM TUBE TP SCH (08:18)
[2022-09-16] MEDS: SIMETHICONE 80 MG TAB.CHEW GT SCH ×3 (08:18→17:09)
[2022-09-16] MEDS: METOPROLOL TARTRATE 50 MG TABLET GT SCH ×2 (08:18→21:00)
[2022-09-16] MEDS: REMEDY ESSENTIAL ZINC PASTE 113 GM TOP SCH ×2 (08:18→21:00)
[2022-09-16] MEDS: SERTRALINE HCL 50 MG TABLET GT SCH (08:18)
[2022-09-16 10:20] VITALS: O2SAT 98
[2022-09-16] MEDS: HYDROGEN PEROXIDE 3% 118 ML BOTTLE TP SCH ×2 (10:20→19:17)
[2022-09-16] MEDS: NITROFURANTOIN MACROCRYSTAL 100 MG CAPSULE GT SCH ×2 (17:09→23:34)
[2022-09-16] MEDS ORDERED: NITROFURANTOIN 25 MG/5 ML GT SCH (18:00)
[2022-09-16 20:00] VITALS: TEMP 98.8
[2022-09-16] MEDS: ASCORBIC ACID 500 MG TABLET GT SCH (21:00)
[2022-09-16 21:20] VITALS: O2SAT 98
[2022-09-17] MEDS: OMEPRAZOLE 20 MG CAPSULE.DR GT SCH (05:26)
[2022-09-17] MEDS: NITROFURANTOIN MACROCRYSTAL 100 MG CAPSULE GT SCH ×3 (05:26→17:46)
[2022-09-17 07:39] VITALS: TEMP 98
[2022-09-17 08:35] VITALS: O2SAT 98
[2022-09-17] MEDS: METOPROLOL TARTRATE 50 MG TABLET GT SCH ×2 (09:00→21:54)
[2022-09-17] MEDS: REMEDY ESSENTIAL ZINC PASTE 113 GM TOP SCH ×2 (09:00→21:54)
[2022-09-17] MEDS: SIMETHICONE 80 MG TAB.CHEW GT SCH ×3 (09:00→17:46)
[2022-09-17] MEDS: SERTRALINE HCL 50 MG TABLET GT SCH (09:00)
[2022-09-17] MEDS: BACLOFEN 20 MG TABLET GT SCH ×4 (09:00→21:54)
[2022-09-17] MEDS: ACIDOPHILUS/BULGARICUS CHEW TAB GT SCH ×2 (09:00→21:54)
[2022-09-17] MEDS: HYDROGEN PEROXIDE 3% 118 ML BOTTLE TP SCH ×2 (09:28→21:02)
[2022-09-17] MEDS: MINERAL OIL/PETROLATUM,WHITE 57 GM TUBE TP SCH (10:00)
[2022-09-17 20:00] VITALS: TEMP 98
[2022-09-17 21:03] VITALS: O2SAT 99
[2022-09-17] MEDS: MULTIVIT, IRON, MIN NO. 8, FA TABLET GT SCH (21:45)
[2022-09-17] MEDS: NEOMY/BACITRA/POLYMYXIN B OINT UD PACKET TP SCH (21:54)
[2022-09-17] MEDS: ASCORBIC ACID 500 MG TABLET GT SCH (21:54)
[2022-09-18] MEDS: OMEPRAZOLE 20 MG CAPSULE.DR GT SCH (05:28)
[2022-09-18] MEDS: NITROFURANTOIN MACROCRYSTAL 100 MG CAPSULE GT SCH ×4 (05:34→18:28)
[2022-09-18 08:00] VITALS: TEMP 97.6
[2022-09-18] MEDS: HYDROGEN PEROXIDE 3% 118 ML BOTTLE TP SCH ×2 (09:07→21:50)
[2022-09-18 09:50] VITALS: O2SAT 99
[2022-09-18] MEDS: ACIDOPHILUS/BULGARICUS CHEW TAB GT SCH ×2 (09:50→21:56)
[2022-09-18] MEDS: BACLOFEN 20 MG TABLET GT SCH ×4 (09:50→21:56)
[2022-09-18] MEDS: METOPROLOL TARTRATE 50 MG TABLET GT SCH ×2 (09:51→21:56)
[2022-09-18] MEDS: REMEDY ESSENTIAL ZINC PASTE 113 GM TOP SCH ×2 (09:51→21:56)
[2022-09-18] MEDS: SERTRALINE HCL 50 MG TABLET GT SCH (09:51)
[2022-09-18] MEDS: KETOCONAZOLE 2% SHAMPOO 120 ML BOTTLE TP SCH (09:51)
[2022-09-18] MEDS: NEOMY/BACITRA/POLYMYXIN B OINT UD PACKET TP SCH ×2 (09:51→21:57)
[2022-09-18] MEDS: SIMETHICONE 80 MG TAB.CHEW GT SCH ×3 (09:51→16:41)
[2022-09-18] MEDS: MINERAL OIL/PETROLATUM,WHITE 57 GM TUBE TP SCH (09:51)
[2022-09-18] MEDS: GLUCERNA 1.2 1000ML LIQUID GT PRN (12:46)
[2022-09-18] MEDS: ACETAMINOPHEN 650 MG/20 ML UDC- SA PATIENTS-PAIN ONLY GT PRN (16:43)
[2022-09-18 20:13] VITALS: TEMP 98.2
[2022-09-18 20:15] VITALS: O2SAT 99
[2022-09-18] MEDS: ASCORBIC ACID 500 MG TABLET GT SCH (21:56)
[2022-09-19] MEDS: NITROFURANTOIN MACROCRYSTAL 100 MG CAPSULE GT SCH ×4 (05:54→17:00)
[2022-09-19] MEDS: OMEPRAZOLE 20 MG CAPSULE.DR GT SCH (05:54)
[2022-09-19 08:00] VITALS: TEMP 97.4
[2022-09-19] MEDS: ACIDOPHILUS/BULGARICUS CHEW TAB GT SCH ×2 (08:41→21:54)
[2022-09-19] MEDS: BACLOFEN 20 MG TABLET GT SCH ×4 (08:41→21:54)
[2022-09-19] MEDS: SERTRALINE HCL 50 MG TABLET GT SCH (08:43)
[2022-09-19] MEDS: SIMETHICONE 80 MG TAB.CHEW GT SCH ×3 (08:43→16:45)
[2022-09-19] MEDS: METOPROLOL TARTRATE 50 MG TABLET GT SCH ×2 (08:43→21:55)
[2022-09-19] MEDS: REMEDY ESSENTIAL ZINC PASTE 113 GM TOP SCH ×2 (08:43→21:55)
[2022-09-19] MEDS: MINERAL OIL/PETROLATUM,WHITE 57 GM TUBE TP SCH (08:44)
[2022-09-19] MEDS: HYDROGEN PEROXIDE 3% 118 ML BOTTLE TP SCH ×2 (09:00→21:00)
[2022-09-19] MEDS: NEOMY/BACITRA/POLYMYXIN B OINT UD PACKET TP SCH ×2 (09:00→21:55)
[2022-09-19 10:20] VITALS: O2SAT 97
[2022-09-19] MEDS: ACETAMINOPHEN 650 MG/20 ML UDC- SA PATIENTS-PAIN ONLY GT PRN (12:18)
[2022-09-19] MEDS: GLUCERNA 1.2 1000ML LIQUID GT PRN (15:27)
[2022-09-19 20:32] VITALS: TEMP 98.4
[2022-09-19 21:00] VITALS: O2SAT 99
[2022-09-19] MEDS: ASCORBIC ACID 500 MG TABLET GT SCH (21:55)
[2022-09-19] MEDS: MULTIVIT, IRON, MIN NO. 8, FA TABLET GT SCH (21:55)
[2022-09-20] MEDS: OMEPRAZOLE 20 MG CAPSULE.DR GT SCH (05:36)
[2022-09-20] MEDS: NITROFURANTOIN MACROCRYSTAL 100 MG CAPSULE GT SCH ×4 (05:36→17:08)
[2022-09-20] MEDS: HYDROGEN PEROXIDE 3% 118 ML BOTTLE TP SCH ×2 (08:36→20:43)
[2022-09-20] MEDS: ACIDOPHILUS/BULGARICUS CHEW TAB GT SCH ×2 (08:41→20:31)
[2022-09-20] MEDS: BACLOFEN 20 MG TABLET GT SCH ×4 (08:41→20:31)
[2022-09-20] MEDS: REMEDY ESSENTIAL ZINC PASTE 113 GM TOP SCH ×2 (08:43→20:32)
[2022-09-20] MEDS: METOPROLOL TARTRATE 50 MG TABLET GT SCH ×2 (08:43→20:32)
[2022-09-20] MEDS: SIMETHICONE 80 MG TAB.CHEW GT SCH ×3 (08:43→17:08)
[2022-09-20] MEDS: SERTRALINE HCL 50 MG TABLET GT SCH (08:43)
[2022-09-20] MEDS: NEOMY/BACITRA/POLYMYXIN B OINT UD PACKET TP SCH ×2 (08:43→20:32)
[2022-09-20] MEDS: MINERAL OIL/PETROLATUM,WHITE 57 GM TUBE TP SCH (08:43)
[2022-09-20 09:40] VITALS: O2SAT 97
[2022-09-20 10:56] VITALS: TEMP 97.4
[2022-09-20] MEDS: ASCORBIC ACID 500 MG TABLET GT SCH (20:32)
[2022-09-20 20:40] VITALS: O2SAT 99
[2022-09-21] MEDS: OMEPRAZOLE 20 MG CAPSULE.DR GT SCH (06:31)
[2022-09-21] MEDS: NITROFURANTOIN MACROCRYSTAL 100 MG CAPSULE GT SCH ×3 (06:32→12:00)
[2022-09-21] MEDS: HYDROGEN PEROXIDE 3% 118 ML BOTTLE TP SCH ×2 (07:27→21:00)
[2022-09-21 08:00] VITALS: TEMP 97.7
[2022-09-21] MEDS: MINERAL OIL/PETROLATUM,WHITE 57 GM TUBE TP SCH (09:00)
[2022-09-21] MEDS: KETOCONAZOLE 2% SHAMPOO 120 ML BOTTLE TP SCH (09:00)
[2022-09-21] MEDS: BACLOFEN 20 MG TABLET GT SCH ×4 (09:00→21:42)
[2022-09-21] MEDS: NEOMY/BACITRA/POLYMYXIN B OINT UD PACKET TP SCH ×2 (09:00→21:51)
[2022-09-21] MEDS: ACIDOPHILUS/BULGARICUS CHEW TAB GT SCH ×2 (09:00→21:41)
[2022-09-21] MEDS: SERTRALINE HCL 50 MG TABLET GT SCH (09:00)
[2022-09-21] MEDS: SIMETHICONE 80 MG TAB.CHEW GT SCH ×3 (09:00→17:07)
[2022-09-21] MEDS: REMEDY ESSENTIAL ZINC PASTE 113 GM TOP SCH ×2 (09:00→21:51)
[2022-09-21] MEDS: METOPROLOL TARTRATE 50 MG TABLET GT SCH ×2 (09:00→21:48)
[2022-09-21 10:50] VITALS: O2SAT 97
[2022-09-21] MEDS: GLUCERNA 1.2 1000ML LIQUID GT PRN (17:41)
[2022-09-21 20:30] VITALS: O2SAT 99
[2022-09-21 21:17] VITALS: TEMP 97.8
[2022-09-21] MEDS: MULTIVIT, IRON, MIN NO. 8, FA TABLET GT SCH (21:49)
[2022-09-21] MEDS: ASCORBIC ACID 500 MG TABLET GT SCH (21:50)
[2022-09-22] MEDS: OMEPRAZOLE 20 MG CAPSULE.DR GT SCH (05:11)
[2022-09-22 07:10] VITALS: O2SAT 97
[2022-09-22] MEDS: HYDROGEN PEROXIDE 3% 118 ML BOTTLE TP SCH ×2 (07:50→21:07)
[2022-09-22 08:00] VITALS: TEMP 98.1
[2022-09-22] MEDS: ACIDOPHILUS/BULGARICUS CHEW TAB GT SCH ×2 (09:02→20:50)
[2022-09-22] MEDS: BACLOFEN 20 MG TABLET GT SCH ×4 (09:02→20:50)
[2022-09-22] MEDS: SERTRALINE HCL 50 MG TABLET GT SCH (09:04)
[2022-09-22] MEDS: NEOMY/BACITRA/POLYMYXIN B OINT UD PACKET TP SCH ×2 (09:04→20:50)
[2022-09-22] MEDS: SIMETHICONE 80 MG TAB.CHEW GT SCH ×3 (09:04→17:42)
[2022-09-22] MEDS: METOPROLOL TARTRATE 50 MG TABLET GT SCH ×2 (09:04→20:50)
[2022-09-22] MEDS: MINERAL OIL/PETROLATUM,WHITE 57 GM TUBE TP SCH (09:04)
[2022-09-22] MEDS: REMEDY ESSENTIAL ZINC PASTE 113 GM TOP SCH ×2 (09:04→20:50)
[2022-09-22 20:00] VITALS: TEMP 98.5
[2022-09-22] MEDS: ASCORBIC ACID 500 MG TABLET GT SCH (20:50)
[2022-09-22 21:39] VITALS: O2SAT 99
[2022-09-23] MEDS: GLUCERNA 1.2 1000ML LIQUID GT PRN (02:00)
[2022-09-23] MEDS: OMEPRAZOLE 20 MG CAPSULE.DR GT SCH (05:41)
[2022-09-23 07:51] VITALS: O2SAT 97
[2022-09-23] MEDS: HYDROGEN PEROXIDE 3% 118 ML BOTTLE TP SCH ×2 (07:51→21:00)
[2022-09-23 08:00] VITALS: TEMP 97.4
[2022-09-23] MEDS: NEOMY/BACITRA/POLYMYXIN B OINT UD PACKET TP SCH ×2 (09:00→20:37)
[2022-09-23] MEDS: BACLOFEN 20 MG TABLET GT SCH ×4 (09:42→20:37)
[2022-09-23] MEDS: ACIDOPHILUS/BULGARICUS CHEW TAB GT SCH ×2 (09:42→20:37)
[2022-09-23] MEDS: SERTRALINE HCL 50 MG TABLET GT SCH (09:43)
[2022-09-23] MEDS: REMEDY ESSENTIAL ZINC PASTE 113 GM TOP SCH ×2 (09:43→20:37)
[2022-09-23] MEDS: SIMETHICONE 80 MG TAB.CHEW GT SCH ×3 (09:43→16:34)
[2022-09-23] MEDS: MINERAL OIL/PETROLATUM,WHITE 57 GM TUBE TP SCH (09:43)
[2022-09-23] MEDS: METOPROLOL TARTRATE 50 MG TABLET GT SCH ×2 (09:44→20:45)
[2022-09-23 20:00] VITALS: TEMP 97.6
[2022-09-23] MEDS: ASCORBIC ACID 500 MG TABLET GT SCH (20:37)
[2022-09-23] MEDS: MULTIVIT, IRON, MIN NO. 8, FA TABLET GT SCH (20:37)
[2022-09-24] MEDS: OMEPRAZOLE 20 MG CAPSULE.DR GT SCH (06:51)
[2022-09-24 08:00] VITALS: TEMP 98.5
[2022-09-24] MEDS: HYDROGEN PEROXIDE 3% 118 ML BOTTLE TP SCH ×2 (09:00→21:02)
[2022-09-24] MEDS: REMEDY ESSENTIAL ZINC PASTE 113 GM TOP SCH ×2 (09:03→21:33)
[2022-09-24] MEDS: MINERAL OIL/PETROLATUM,WHITE 57 GM TUBE TP SCH (09:03)
[2022-09-24] MEDS: SERTRALINE HCL 50 MG TABLET GT SCH (09:03)
[2022-09-24] MEDS: BACLOFEN 20 MG TABLET GT SCH ×4 (09:03→21:28)
[2022-09-24] MEDS: SIMETHICONE 80 MG TAB.CHEW GT SCH ×3 (09:03→16:30)
[2022-09-24] MEDS: ACIDOPHILUS/BULGARICUS CHEW TAB GT SCH ×2 (09:03→21:28)
[2022-09-24] MEDS: NEOMY/BACITRA/POLYMYXIN B OINT UD PACKET TP SCH ×2 (09:03→21:33)
[2022-09-24] MEDS: METOPROLOL TARTRATE 50 MG TABLET GT SCH ×2 (09:03→21:00)
[2022-09-24 09:50] VITALS: O2SAT 97
[2022-09-24 20:48] VITALS: TEMP 98.6
[2022-09-24 21:13] VITALS: O2SAT 99
[2022-09-24] MEDS: ASCORBIC ACID 500 MG TABLET GT SCH (21:33)
[2022-09-25] MEDS: OMEPRAZOLE 20 MG CAPSULE.DR GT SCH (05:56)
[2022-09-25 07:37] VITALS: TEMP 97.6
[2022-09-25] MEDS: HYDROGEN PEROXIDE 3% 118 ML BOTTLE TP SCH ×2 (09:00→20:42)
[2022-09-25 09:40] VITALS: O2SAT 97
[2022-09-25] MEDS: SERTRALINE HCL 50 MG TABLET GT SCH (09:50)
[2022-09-25] MEDS: REMEDY ESSENTIAL ZINC PASTE 113 GM TOP SCH ×2 (09:50→20:16)
[2022-09-25] MEDS: KETOCONAZOLE 2% SHAMPOO 120 ML BOTTLE TP SCH (09:50)
[2022-09-25] MEDS: ACIDOPHILUS/BULGARICUS CHEW TAB GT SCH ×2 (09:50→20:15)
[2022-09-25] MEDS: NEOMY/BACITRA/POLYMYXIN B OINT UD PACKET TP SCH ×2 (09:50→21:00)
[2022-09-25] MEDS: SIMETHICONE 80 MG TAB.CHEW GT SCH ×3 (09:50→17:23)
[2022-09-25] MEDS: MINERAL OIL/PETROLATUM,WHITE 57 GM TUBE TP SCH (09:50)
[2022-09-25] MEDS: METOPROLOL TARTRATE 50 MG TABLET GT SCH ×2 (09:50→20:12)
[2022-09-25] MEDS: BACLOFEN 20 MG TABLET GT SCH ×4 (09:50→20:15)
[2022-09-25] MEDS: ASCORBIC ACID 500 MG TABLET GT SCH (20:15)
[2022-09-25] MEDS: MULTIVIT, IRON, MIN NO. 8, FA TABLET GT SCH (20:15)
[2022-09-25 20:22] VITALS: TEMP 97.9
[2022-09-25 20:40] VITALS: O2SAT 99
[2022-09-25] MEDS ORDERED: MOMETASONE FUROATE TP SCH (21:00)
[2022-09-25] MEDS: TRIAMCINOLONE ACET 0.1% OINT 15 GM TUBE TP SCH (21:00)
[2022-09-26] MEDS: OMEPRAZOLE 20 MG CAPSULE.DR GT SCH (06:26)
[2022-09-26] MEDS: HYDROGEN PEROXIDE 3% 118 ML BOTTLE TP SCH ×2 (09:00→21:00)
[2022-09-26] MEDS: CALCIPOTRIENE TOP SCH (09:00)
[2022-09-26 09:05] VITALS: O2SAT 97
[2022-09-26 09:12] VITALS: TEMP 97.6
[2022-09-26] MEDS: BACLOFEN 20 MG TABLET GT SCH ×4 (09:37→21:28)
[2022-09-26] MEDS: ACIDOPHILUS/BULGARICUS CHEW TAB GT SCH ×2 (09:37→21:28)
[2022-09-26] MEDS: SIMETHICONE 80 MG TAB.CHEW GT SCH ×3 (09:38→17:10)
[2022-09-26] MEDS: MINERAL OIL/PETROLATUM,WHITE 57 GM TUBE TP SCH (09:38)
[2022-09-26] MEDS: NEOMY/BACITRA/POLYMYXIN B OINT UD PACKET TP SCH ×2 (09:38→21:29)
[2022-09-26] MEDS: METOPROLOL TARTRATE 50 MG TABLET GT SCH ×2 (09:38→21:28)
[2022-09-26] MEDS: SERTRALINE HCL 50 MG TABLET GT SCH (09:38)
[2022-09-26] MEDS: REMEDY ESSENTIAL ZINC PASTE 113 GM TOP SCH ×2 (09:38→21:29)
[2022-09-26 20:10] VITALS: O2SAT 99
[2022-09-26] MEDS: ASCORBIC ACID 500 MG TABLET GT SCH (21:28)
[2022-09-26] MEDS: TRIAMCINOLONE ACET 0.1% OINT 15 GM TUBE TP SCH (21:29)
[2022-09-26 21:46] VITALS: TEMP 97.8
[2022-09-27] MEDS: OMEPRAZOLE 20 MG CAPSULE.DR GT SCH (06:35)
[2022-09-27] MEDS: CALCIPOTRIENE TOP SCH (09:00)
[2022-09-27] MEDS: METOPROLOL TARTRATE 50 MG TABLET GT SCH ×2 (09:00→21:45)
[2022-09-27 09:07] VITALS: TEMP 98
[2022-09-27] MEDS: HYDROGEN PEROXIDE 3% 118 ML BOTTLE TP SCH ×2 (09:10→20:56)
[2022-09-27] MEDS: BACLOFEN 20 MG TABLET GT SCH ×4 (09:24→21:44)
[2022-09-27] MEDS: ACIDOPHILUS/BULGARICUS CHEW TAB GT SCH ×2 (09:24→21:44)
[2022-09-27] MEDS: SERTRALINE HCL 50 MG TABLET GT SCH (09:26)
[2022-09-27] MEDS: SIMETHICONE 80 MG TAB.CHEW GT SCH ×3 (09:26→17:02)
[2022-09-27] MEDS: NEOMY/BACITRA/POLYMYXIN B OINT UD PACKET TP SCH ×3 (09:27→21:45)
[2022-09-27] MEDS: MINERAL OIL/PETROLATUM,WHITE 57 GM TUBE TP SCH (09:27)
[2022-09-27] MEDS: REMEDY ESSENTIAL ZINC PASTE 113 GM TOP SCH ×2 (09:27→21:45)
[2022-09-27 10:10] VITALS: O2SAT 97
[2022-09-27] MEDS: GLUCERNA 1.2 1000ML LIQUID GT PRN (18:05)
[2022-09-27 20:35] VITALS: TEMP 97.6
[2022-09-27 20:55] VITALS: O2SAT 97
[2022-09-27] MEDS: TRIAMCINOLONE ACET 0.1% OINT 15 GM TUBE TP SCH (21:45)
[2022-09-27] MEDS: ASCORBIC ACID 500 MG TABLET GT SCH (21:45)
[2022-09-27] MEDS: MULTIVIT, IRON, MIN NO. 8, FA TABLET GT SCH (21:45)
[2022-09-28] MEDS: OMEPRAZOLE 20 MG CAPSULE.DR GT SCH (05:30)
[2022-09-28 08:13] VITALS: TEMP 98.3
[2022-09-28 08:58] VITALS: O2SAT 99
[2022-09-28] MEDS: HYDROGEN PEROXIDE 3% 118 ML BOTTLE TP SCH ×2 (09:05→21:00)
[2022-09-28] MEDS: ACIDOPHILUS/BULGARICUS CHEW TAB GT SCH ×2 (09:14→21:46)
[2022-09-28] MEDS: BACLOFEN 20 MG TABLET GT SCH ×4 (09:15→21:46)
[2022-09-28] MEDS: METOPROLOL TARTRATE 50 MG TABLET GT SCH ×2 (09:15→21:47)
[2022-09-28] MEDS: SERTRALINE HCL 50 MG TABLET GT SCH (09:16)
[2022-09-28] MEDS: SIMETHICONE 80 MG TAB.CHEW GT SCH ×3 (09:16→16:21)
[2022-09-28] MEDS: MINERAL OIL/PETROLATUM,WHITE 57 GM TUBE TP SCH (09:18)
[2022-09-28] MEDS: REMEDY ESSENTIAL ZINC PASTE 113 GM TOP SCH ×2 (09:18→21:48)
[2022-09-28] MEDS: CALCIPOTRIENE TOP SCH (09:18)
[2022-09-28] MEDS: KETOCONAZOLE 2% SHAMPOO 120 ML BOTTLE TP SCH (09:20)
[2022-09-28] MEDS: NEOMY/BACITRA/POLYMYXIN B OINT UD PACKET TP SCH ×3 (09:21→21:49)
[2022-09-28 15:30] VITALS: O2SAT 99
[2022-09-28] MEDS: GLUCERNA 1.2 1000ML LIQUID GT PRN (16:22)
[2022-09-28 20:12] VITALS: TEMP 98
[2022-09-28 20:15] VITALS: O2SAT 97
[2022-09-28] MEDS: ASCORBIC ACID 500 MG TABLET GT SCH (21:47)
[2022-09-28] MEDS: TRIAMCINOLONE ACET 0.1% OINT 15 GM TUBE TP SCH (21:49)
[2022-09-29] MEDS: OMEPRAZOLE 20 MG CAPSULE.DR GT SCH (05:49)
[2022-09-29 07:44] VITALS: TEMP 98
[2022-09-29] MEDS: BACLOFEN 20 MG TABLET GT SCH ×4 (08:56→21:00)
[2022-09-29] MEDS: ACIDOPHILUS/BULGARICUS CHEW TAB GT SCH ×2 (08:56→21:00)
[2022-09-29] MEDS: NEOMY/BACITRA/POLYMYXIN B OINT UD PACKET TP SCH ×3 (08:57→21:00)
[2022-09-29] MEDS: METOPROLOL TARTRATE 50 MG TABLET GT SCH ×2 (08:57→21:00)
[2022-09-29] MEDS: MINERAL OIL/PETROLATUM,WHITE 57 GM TUBE TP SCH (08:57)
[2022-09-29] MEDS: SIMETHICONE 80 MG TAB.CHEW GT SCH ×3 (08:57→17:04)
[2022-09-29] MEDS: REMEDY ESSENTIAL ZINC PASTE 113 GM TOP SCH ×2 (08:57→21:00)
[2022-09-29] MEDS: CALCIPOTRIENE TOP SCH (08:57)
[2022-09-29] MEDS: SERTRALINE HCL 50 MG TABLET GT SCH (08:57)
[2022-09-29] MEDS: HYDROGEN PEROXIDE 3% 118 ML BOTTLE TP SCH ×2 (09:00→21:00)
[2022-09-29] MEDS: GLUCERNA 1.2 1000ML LIQUID GT PRN (17:04)
[2022-09-29 17:50] VITALS: O2SAT 97
[2022-09-29 20:00] VITALS: TEMP 98.3
[2022-09-29 20:10] VITALS: O2SAT 97
[2022-09-29] MEDS: MULTIVIT, IRON, MIN NO. 8, FA TABLET GT SCH (21:00)
[2022-09-29] MEDS: TRIAMCINOLONE ACET 0.1% OINT 15 GM TUBE TP SCH (21:00)
[2022-09-29] MEDS: ASCORBIC ACID 500 MG TABLET GT SCH (21:00)
[2022-09-30] MEDS: OMEPRAZOLE 20 MG CAPSULE.DR GT SCH (05:11)
[2022-09-30 08:00] VITALS: TEMP 98
[2022-09-30] MEDS: HYDROGEN PEROXIDE 3% 118 ML BOTTLE TP SCH ×2 (09:01→21:11)
[2022-09-30] MEDS: ACIDOPHILUS/BULGARICUS CHEW TAB GT SCH ×2 (09:21→20:38)
[2022-09-30] MEDS: BACLOFEN 20 MG TABLET GT SCH ×4 (09:22→20:38)
[2022-09-30] MEDS: NEOMY/BACITRA/POLYMYXIN B OINT UD PACKET TP SCH ×3 (09:23→20:38)
[2022-09-30] MEDS: METOPROLOL TARTRATE 50 MG TABLET GT SCH ×2 (09:23→20:38)
[2022-09-30] MEDS: REMEDY ESSENTIAL ZINC PASTE 113 GM TOP SCH ×2 (09:23→20:38)
[2022-09-30] MEDS: MINERAL OIL/PETROLATUM,WHITE 57 GM TUBE TP SCH (09:23)
[2022-09-30] MEDS: SERTRALINE HCL 50 MG TABLET GT SCH (09:23)
[2022-09-30] MEDS: SIMETHICONE 80 MG TAB.CHEW GT SCH ×3 (09:23→17:25)
[2022-09-30] MEDS: CALCIPOTRIENE TOP SCH (09:23)
[2022-09-30 10:50] VITALS: O2SAT 97
[2022-09-30] MEDS: GLUCERNA 1.2 1000ML LIQUID GT PRN (17:25)
[2022-09-30] MEDS: TRIAMCINOLONE ACET 0.1% OINT 15 GM TUBE TP SCH (20:38)
[2022-09-30] MEDS: ASCORBIC ACID 500 MG TABLET GT SCH (20:38)
[2022-09-30 21:00] VITALS: O2SAT 99
[2022-09-30 22:35] VITALS: TEMP 98.2
[2022-10-01] MEDS: OMEPRAZOLE 20 MG CAPSULE.DR GT SCH (05:33)
[2022-10-01] MEDS: SIMETHICONE 80 MG TAB.CHEW GT SCH ×3 (08:25→17:19)
[2022-10-01] MEDS: BACLOFEN 20 MG TABLET GT SCH ×4 (08:25→20:38)
[2022-10-01] MEDS: METOPROLOL TARTRATE 50 MG TABLET GT SCH ×2 (08:25→20:44)
[2022-10-01] MEDS: ACIDOPHILUS/BULGARICUS CHEW TAB GT SCH ×2 (08:25→20:38)
[2022-10-01] MEDS: SERTRALINE HCL 50 MG TABLET GT SCH (08:26)
[2022-10-01] MEDS: MINERAL OIL/PETROLATUM,WHITE 57 GM TUBE TP SCH (08:26)
[2022-10-01] MEDS: CALCIPOTRIENE TOP SCH (08:26)
[2022-10-01] MEDS: REMEDY ESSENTIAL ZINC PASTE 113 GM TOP SCH ×2 (08:26→20:45)
[2022-10-01] MEDS: NEOMY/BACITRA/POLYMYXIN B OINT UD PACKET TP SCH ×2 (08:27)
[2022-10-01 09:00] VITALS: O2SAT 97
[2022-10-01] MEDS: HYDROGEN PEROXIDE 3% 118 ML BOTTLE TP SCH ×2 (09:00→21:00)
[2022-10-01 11:32] VITALS: TEMP 98
[2022-10-01] MEDS: GLUCERNA 1.2 1000ML LIQUID GT PRN (18:20)
[2022-10-01] MEDS: ASCORBIC ACID 500 MG TABLET GT SCH (20:44)
[2022-10-01] MEDS: MULTIVIT, IRON, MIN NO. 8, FA TABLET GT SCH (20:44)
[2022-10-01] MEDS: TRIAMCINOLONE ACET 0.1% OINT 15 GM TUBE TP SCH (20:45)
[2022-10-01 20:58] VITALS: O2SAT 99
[2022-10-01 21:00] VITALS: TEMP 97.8
[2022-10-02] MEDS: OMEPRAZOLE 20 MG CAPSULE.DR GT SCH (06:00)
[2022-10-02 08:00] VITALS: TEMP 97.6
[2022-10-02] MEDS: SIMETHICONE 80 MG TAB.CHEW GT SCH ×3 (08:30→16:56)
[2022-10-02] MEDS: METOPROLOL TARTRATE 50 MG TABLET GT SCH ×2 (08:30→21:33)
[2022-10-02] MEDS: BACLOFEN 20 MG TABLET GT SCH ×4 (08:30→21:02)
[2022-10-02] MEDS: ACIDOPHILUS/BULGARICUS CHEW TAB GT SCH ×2 (08:30→21:02)
[2022-10-02] MEDS: SERTRALINE HCL 50 MG TABLET GT SCH (08:30)
[2022-10-02] MEDS: REMEDY ESSENTIAL ZINC PASTE 113 GM TOP SCH ×2 (08:31→21:02)
[2022-10-02] MEDS: KETOCONAZOLE 2% SHAMPOO 120 ML BOTTLE TP SCH (08:31)
[2022-10-02] MEDS: MINERAL OIL/PETROLATUM,WHITE 57 GM TUBE TP SCH (08:31)
[2022-10-02] MEDS: CALCIPOTRIENE TOP SCH (08:31)
[2022-10-02] MEDS: HYDROGEN PEROXIDE 3% 118 ML BOTTLE TP SCH ×2 (09:10→21:00)
[2022-10-02 09:55] VITALS: O2SAT 97
[2022-10-02 20:30] VITALS: O2SAT 99
[2022-10-02 21:00] VITALS: TEMP 97.8
[2022-10-02] MEDS: ASCORBIC ACID 500 MG TABLET GT SCH (21:02)
[2022-10-03] MEDS: OMEPRAZOLE 20 MG CAPSULE.DR GT SCH (05:13)
[2022-10-03] MEDS: HYDROGEN PEROXIDE 3% 118 ML BOTTLE TP SCH ×2 (08:09→21:00)
[2022-10-03] MEDS: REMEDY ESSENTIAL ZINC PASTE 113 GM TOP SCH ×2 (09:00→21:10)
[2022-10-03] MEDS: CALCIPOTRIENE TOP SCH (09:00)
[2022-10-03] MEDS: METOPROLOL TARTRATE 50 MG TABLET GT SCH ×2 (09:00→21:10)
[2022-10-03] MEDS: BACLOFEN 20 MG TABLET GT SCH ×4 (09:00→21:10)
[2022-10-03] MEDS: ACIDOPHILUS/BULGARICUS CHEW TAB GT SCH ×2 (09:00→21:10)
[2022-10-03] MEDS: SERTRALINE HCL 50 MG TABLET GT SCH (09:00)
[2022-10-03] MEDS: SIMETHICONE 80 MG TAB.CHEW GT SCH ×3 (09:00→17:15)
[2022-10-03] MEDS: MINERAL OIL/PETROLATUM,WHITE 57 GM TUBE TP SCH (09:00)
[2022-10-03 09:12] VITALS: TEMP 98
[2022-10-03 10:50] VITALS: O2SAT 97
[2022-10-03 20:20] VITALS: O2SAT 99
[2022-10-03 20:39] VITALS: TEMP 97.7
[2022-10-03] MEDS: ASCORBIC ACID 500 MG TABLET GT SCH (21:10)
[2022-10-03] MEDS: MULTIVIT, IRON, MIN NO. 8, FA TABLET GT SCH (21:10)
[2022-10-04] MEDS: OMEPRAZOLE 20 MG CAPSULE.DR GT SCH (06:38)
[2022-10-04 08:00] VITALS: TEMP 98.2
[2022-10-04] MEDS: REMEDY ESSENTIAL ZINC PASTE 113 GM TOP SCH ×2 (09:00→21:54)
[2022-10-04] MEDS: SIMETHICONE 80 MG TAB.CHEW GT SCH ×3 (09:00→17:21)
[2022-10-04] MEDS: METOPROLOL TARTRATE 50 MG TABLET GT SCH ×2 (09:00→21:54)
[2022-10-04] MEDS: BACLOFEN 20 MG TABLET GT SCH ×4 (09:00→21:53)
[2022-10-04] MEDS: MINERAL OIL/PETROLATUM,WHITE 57 GM TUBE TP SCH (09:00)
[2022-10-04] MEDS: SERTRALINE HCL 50 MG TABLET GT SCH (09:00)
[2022-10-04] MEDS: CALCIPOTRIENE TOP SCH (09:00)
[2022-10-04] MEDS: ACIDOPHILUS/BULGARICUS CHEW TAB GT SCH ×2 (09:00→21:53)
[2022-10-04] MEDS: HYDROGEN PEROXIDE 3% 118 ML BOTTLE TP SCH ×2 (09:17→19:25)
[2022-10-04 09:55] VITALS: O2SAT 97
[2022-10-04 20:00] VITALS: TEMP 98.7
[2022-10-04 20:44] VITALS: O2SAT 98
[2022-10-04] MEDS: ASCORBIC ACID 500 MG TABLET GT SCH (21:54)
[2022-10-05] MEDS: GLUCERNA 1.2 1000ML LIQUID GT PRN
[2022-10-05] MEDS: OMEPRAZOLE 20 MG CAPSULE.DR GT SCH (06:29)
[2022-10-05 08:00] VITALS: TEMP 97
[2022-10-05] MEDS: ACIDOPHILUS/BULGARICUS CHEW TAB GT SCH ×2 (08:07→21:44)
[2022-10-05] MEDS: BACLOFEN 20 MG TABLET GT SCH ×4 (08:10→21:45)
[2022-10-05] MEDS: SIMETHICONE 80 MG TAB.CHEW GT SCH ×3 (08:11→17:30)
[2022-10-05] MEDS: SERTRALINE HCL 50 MG TABLET GT SCH (08:12)
[2022-10-05] MEDS: REMEDY ESSENTIAL ZINC PASTE 113 GM TOP SCH ×2 (08:13→21:47)
[2022-10-05] MEDS: CALCIPOTRIENE TOP SCH (08:13)
[2022-10-05] MEDS: MINERAL OIL/PETROLATUM,WHITE 57 GM TUBE TP SCH (08:14)
[2022-10-05] MEDS: KETOCONAZOLE 2% SHAMPOO 120 ML BOTTLE TP SCH (08:17)
[2022-10-05] MEDS: METOPROLOL TARTRATE 50 MG TABLET GT SCH ×2 (08:20→21:45)
[2022-10-05 08:30] VITALS: O2SAT 97
[2022-10-05] MEDS: HYDROGEN PEROXIDE 3% 118 ML BOTTLE TP SCH ×2 (09:00→21:47)
[2022-10-05 20:00] VITALS: TEMP 97.6
[2022-10-05 20:05] VITALS: O2SAT 98
[2022-10-05] MEDS ORDERED: MOMETASONE FUROATE TP SCH (21:00)
[2022-10-05] MEDS: TRIAMCINOLONE ACET 0.1% OINT 15 GM TUBE TP SCH (21:46)
[2022-10-05] MEDS: ASCORBIC ACID 500 MG TABLET GT SCH (21:47)
[2022-10-05] MEDS: MULTIVIT, IRON, MIN NO. 8, FA TABLET GT SCH (21:47)
[2022-10-06] MEDS: OMEPRAZOLE 20 MG CAPSULE.DR GT SCH (05:26)
[2022-10-06 07:33] VITALS: TEMP 97.6
[2022-10-06] MEDS: ACIDOPHILUS/BULGARICUS CHEW TAB GT SCH ×2 (08:40→20:56)
[2022-10-06] MEDS: METOPROLOL TARTRATE 50 MG TABLET GT SCH ×2 (08:41→20:58)
[2022-10-06] MEDS: BACLOFEN 20 MG TABLET GT SCH ×4 (08:41→20:57)
[2022-10-06] MEDS: MINERAL OIL/PETROLATUM,WHITE 57 GM TUBE TP SCH (08:42)
[2022-10-06] MEDS: REMEDY ESSENTIAL ZINC PASTE 113 GM TOP SCH ×2 (08:42→20:58)
[2022-10-06] MEDS: SIMETHICONE 80 MG TAB.CHEW GT SCH ×3 (08:42→17:16)
[2022-10-06] MEDS: CALCIPOTRIENE TOP SCH (08:42)
[2022-10-06] MEDS: SERTRALINE HCL 50 MG TABLET GT SCH (08:42)
[2022-10-06 09:05] VITALS: O2SAT 97
[2022-10-06] MEDS: HYDROGEN PEROXIDE 3% 118 ML BOTTLE TP SCH ×2 (09:05→21:55)
[2022-10-06 20:00] VITALS: TEMP 98
[2022-10-06] MEDS: ASCORBIC ACID 500 MG TABLET GT SCH (20:58)
[2022-10-06 21:16] VITALS: O2SAT 98
[2022-10-07] MEDS: OMEPRAZOLE 20 MG CAPSULE.DR GT SCH (05:34)
[2022-10-07 07:45] VITALS: TEMP 98.2
[2022-10-07] MEDS: BACLOFEN 20 MG TABLET GT SCH ×4 (08:23→21:00)
[2022-10-07] MEDS: ACIDOPHILUS/BULGARICUS CHEW TAB GT SCH ×2 (08:23→21:59)
[2022-10-07] MEDS: REMEDY ESSENTIAL ZINC PASTE 113 GM TOP SCH ×2 (08:24→21:00)
[2022-10-07] MEDS: SIMETHICONE 80 MG TAB.CHEW GT SCH ×3 (08:24→17:00)
[2022-10-07] MEDS: CALCIPOTRIENE TOP SCH (08:24)
[2022-10-07] MEDS: METOPROLOL TARTRATE 50 MG TABLET GT SCH ×2 (08:24→21:00)
[2022-10-07] MEDS: SERTRALINE HCL 50 MG TABLET GT SCH (08:24)
[2022-10-07] MEDS: MINERAL OIL/PETROLATUM,WHITE 57 GM TUBE TP SCH (08:24)
[2022-10-07] MEDS: GLUCERNA 1.2 1000ML LIQUID GT PRN (09:11)
[2022-10-07] MEDS: HYDROGEN PEROXIDE 3% 118 ML BOTTLE TP SCH ×2 (09:59→23:19)
[2022-10-07 10:00] VITALS: O2SAT 97
[2022-10-07] MEDS: ASCORBIC ACID 500 MG TABLET GT SCH (21:00)
[2022-10-07] MEDS: MULTIVIT, IRON, MIN NO. 8, FA TABLET GT SCH (21:00)
[2022-10-07 23:16] VITALS: TEMP 98
[2022-10-08] MEDS: OMEPRAZOLE 20 MG CAPSULE.DR GT SCH (05:52)
[2022-10-08] MEDS: HYDROGEN PEROXIDE 3% 118 ML BOTTLE TP SCH ×2 (07:20→20:45)
[2022-10-08] MEDS: METOPROLOL TARTRATE 50 MG TABLET GT SCH ×2 (09:00→20:31)
[2022-10-08] MEDS: ACIDOPHILUS/BULGARICUS CHEW TAB GT SCH ×2 (09:39→20:32)
[2022-10-08] MEDS: BACLOFEN 20 MG TABLET GT SCH ×4 (09:40→20:31)
[2022-10-08] MEDS: SIMETHICONE 80 MG TAB.CHEW GT SCH ×3 (09:41→16:34)
[2022-10-08] MEDS: SERTRALINE HCL 50 MG TABLET GT SCH (09:41)
[2022-10-08] MEDS: REMEDY ESSENTIAL ZINC PASTE 113 GM TOP SCH ×2 (09:42→20:20)
[2022-10-08] MEDS: CALCIPOTRIENE TOP SCH (09:42)
[2022-10-08] MEDS: MINERAL OIL/PETROLATUM,WHITE 57 GM TUBE TP SCH (09:42)
[2022-10-08 10:30] VITALS: O2SAT 98
[2022-10-08] MEDS: GLUCERNA 1.2 1000ML LIQUID GT PRN (15:40)
[2022-10-08] MEDS: ASCORBIC ACID 500 MG TABLET GT SCH (20:31)
[2022-10-08 20:49] VITALS: TEMP 98.2
[2022-10-08 21:06] VITALS: O2SAT 98
[2022-10-09] MEDS: OMEPRAZOLE 20 MG CAPSULE.DR GT SCH (06:25)
[2022-10-09 07:43] VITALS: TEMP 97.7
[2022-10-09] MEDS: ACIDOPHILUS/BULGARICUS CHEW TAB GT SCH ×2 (08:44→21:52)
[2022-10-09] MEDS: BACLOFEN 20 MG TABLET GT SCH ×4 (08:44→21:52)
[2022-10-09] MEDS: SIMETHICONE 80 MG TAB.CHEW GT SCH ×3 (08:45→17:16)
[2022-10-09] MEDS: SERTRALINE HCL 50 MG TABLET GT SCH (08:45)
[2022-10-09] MEDS: METOPROLOL TARTRATE 50 MG TABLET GT SCH ×2 (08:45→21:53)
[2022-10-09] MEDS: REMEDY ESSENTIAL ZINC PASTE 113 GM TOP SCH ×2 (08:46→21:54)
[2022-10-09] MEDS: MINERAL OIL/PETROLATUM,WHITE 57 GM TUBE TP SCH (08:46)
[2022-10-09] MEDS: CALCIPOTRIENE TOP SCH (08:46)
[2022-10-09] MEDS: KETOCONAZOLE 2% SHAMPOO 120 ML BOTTLE TP SCH (08:46)
[2022-10-09] MEDS: HYDROGEN PEROXIDE 3% 118 ML BOTTLE TP SCH ×2 (09:00→21:00)
[2022-10-09 09:45] VITALS: O2SAT 97
[2022-10-09 20:00] VITALS: O2SAT 98
[2022-10-09 20:20] VITALS: TEMP 98
[2022-10-09] MEDS: MULTIVIT, IRON, MIN NO. 8, FA TABLET GT SCH (21:53)
[2022-10-09] MEDS: TRIAMCINOLONE ACET 0.1% OINT 15 GM TUBE TP SCH (21:54)
[2022-10-09] MEDS: ASCORBIC ACID 500 MG TABLET GT SCH (21:54)
[2022-10-10] MEDS: OMEPRAZOLE 20 MG CAPSULE.DR GT SCH (06:01)
[2022-10-10 08:00] VITALS: TEMP 98.6
[2022-10-10] MEDS: HYDROGEN PEROXIDE 3% 118 ML BOTTLE TP SCH ×2 (08:27→21:00)
[2022-10-10] MEDS: ACIDOPHILUS/BULGARICUS CHEW TAB GT SCH ×2 (09:02→20:22)
[2022-10-10] MEDS: BACLOFEN 20 MG TABLET GT SCH ×4 (09:03→20:22)
[2022-10-10] MEDS: SERTRALINE HCL 50 MG TABLET GT SCH (09:04)
[2022-10-10] MEDS: SIMETHICONE 80 MG TAB.CHEW GT SCH ×3 (09:04→17:34)
[2022-10-10] MEDS: METOPROLOL TARTRATE 50 MG TABLET GT SCH ×2 (09:04→20:28)
[2022-10-10] MEDS: CALCIPOTRIENE TOP SCH (09:05)
[2022-10-10] MEDS: MINERAL OIL/PETROLATUM,WHITE 57 GM TUBE TP SCH (09:05)
[2022-10-10] MEDS: REMEDY ESSENTIAL ZINC PASTE 113 GM TOP SCH ×2 (09:05→20:22)
[2022-10-10 09:41] VITALS: O2SAT 97
[2022-10-10] MEDS: GLUCERNA 1.2 1000ML LIQUID GT PRN (17:34)
[2022-10-10 20:10] VITALS: O2SAT 97
[2022-10-10] MEDS: ASCORBIC ACID 500 MG TABLET GT SCH (20:22)
[2022-10-10 22:16] VITALS: TEMP 98
[2022-10-11] MEDS: GLUCERNA 1.2 1000ML LIQUID GT PRN
[2022-10-11] MEDS: OMEPRAZOLE 20 MG CAPSULE.DR GT SCH (06:00)
[2022-10-11] MEDS: HYDROGEN PEROXIDE 3% 118 ML BOTTLE TP SCH ×2 (08:54→21:08)
[2022-10-11] MEDS: ACIDOPHILUS/BULGARICUS CHEW TAB GT SCH ×2 (09:00→20:33)
[2022-10-11] MEDS: SIMETHICONE 80 MG TAB.CHEW GT SCH ×3 (09:00→16:47)
[2022-10-11] MEDS: METOPROLOL TARTRATE 50 MG TABLET GT SCH ×2 (09:00→20:34)
[2022-10-11] MEDS: SERTRALINE HCL 50 MG TABLET GT SCH (09:00)
[2022-10-11] MEDS: MINERAL OIL/PETROLATUM,WHITE 57 GM TUBE TP SCH (09:00)
[2022-10-11] MEDS: CALCIPOTRIENE TOP SCH (09:00)
[2022-10-11] MEDS: BACLOFEN 20 MG TABLET GT SCH ×4 (09:00→20:33)
[2022-10-11] MEDS: REMEDY ESSENTIAL ZINC PASTE 113 GM TOP SCH ×2 (09:00→20:34)
[2022-10-11 09:12] VITALS: TEMP 98.2
[2022-10-11 09:40] VITALS: O2SAT 97
[2022-10-11 20:25] VITALS: O2SAT 98
[2022-10-11] MEDS: ASCORBIC ACID 500 MG TABLET GT SCH (20:34)
[2022-10-11] MEDS: MULTIVIT, IRON, MIN NO. 8, FA TABLET GT SCH (20:34)
[2022-10-11 22:35] VITALS: TEMP 98.2
[2022-10-12] MEDS: GLUCERNA 1.2 1000ML LIQUID GT PRN
[2022-10-12] MEDS: OMEPRAZOLE 20 MG CAPSULE.DR GT SCH (05:47)
[2022-10-12 07:43] VITALS: TEMP 97.4
[2022-10-12] MEDS: HYDROGEN PEROXIDE 3% 118 ML BOTTLE TP SCH ×2 (09:00→19:08)
[2022-10-12] MEDS: BACLOFEN 20 MG TABLET GT SCH ×4 (09:35→21:21)
[2022-10-12] MEDS: ACIDOPHILUS/BULGARICUS CHEW TAB GT SCH ×2 (09:35→21:21)
[2022-10-12] MEDS: CALCIPOTRIENE TOP SCH (09:36)
[2022-10-12] MEDS: SERTRALINE HCL 50 MG TABLET GT SCH (09:36)
[2022-10-12] MEDS: METOPROLOL TARTRATE 50 MG TABLET GT SCH ×2 (09:36→21:22)
[2022-10-12] MEDS: SIMETHICONE 80 MG TAB.CHEW GT SCH ×3 (09:36→17:31)
[2022-10-12] MEDS: REMEDY ESSENTIAL ZINC PASTE 113 GM TOP SCH ×2 (09:37→21:22)
[2022-10-12] MEDS: KETOCONAZOLE 2% SHAMPOO 120 ML BOTTLE TP SCH (09:37)
[2022-10-12] MEDS: MINERAL OIL/PETROLATUM,WHITE 57 GM TUBE TP SCH (09:37)
[2022-10-12 17:11] VITALS: O2SAT 99
[2022-10-12 19:54] VITALS: TEMP 98.1
[2022-10-12] MEDS: TRIAMCINOLONE ACET 0.1% OINT 15 GM TUBE TP SCH (21:22)
[2022-10-12] MEDS: ASCORBIC ACID 500 MG TABLET GT SCH (21:22)
[2022-10-12] MEDS: DOXYCYCLINE 100MG CAPSULE GT SCH (21:22)
[2022-10-13] MEDS: OMEPRAZOLE 20 MG CAPSULE.DR GT SCH (05:24)
[2022-10-13] MEDS: GLUCERNA 1.2 1000ML LIQUID GT PRN (06:34)
[2022-10-13 07:05] VITALS: O2SAT 97
[2022-10-13 07:34] VITALS: TEMP 98.1
[2022-10-13 08:07] VITALS: O2SAT 97
[2022-10-13] MEDS: SERTRALINE HCL 50 MG TABLET GT SCH (09:00)
[2022-10-13] MEDS: SIMETHICONE 80 MG TAB.CHEW GT SCH ×3 (09:00→17:00)
[2022-10-13] MEDS: DOXYCYCLINE 100MG CAPSULE GT SCH ×2 (09:00→21:42)
[2022-10-13] MEDS: REMEDY ESSENTIAL ZINC PASTE 113 GM TOP SCH ×2 (09:00→21:43)
[2022-10-13] MEDS: ACIDOPHILUS/BULGARICUS CHEW TAB GT SCH ×2 (09:00→21:41)
[2022-10-13] MEDS: MINERAL OIL/PETROLATUM,WHITE 57 GM TUBE TP SCH (09:00)
[2022-10-13] MEDS: CALCIPOTRIENE TOP SCH (09:00)
[2022-10-13] MEDS: BACLOFEN 20 MG TABLET GT SCH ×4 (09:00→21:36)
[2022-10-13] MEDS: HYDROGEN PEROXIDE 3% 118 ML BOTTLE TP SCH ×2 (09:00→19:05)
[2022-10-13] MEDS: METOPROLOL TARTRATE 50 MG TABLET GT SCH ×2 (09:00→21:42)
[2022-10-13 15:27] VITALS: O2SAT 97
[2022-10-13 19:53] VITALS: TEMP 97.9
[2022-10-13 20:00] VITALS: O2SAT 98
[2022-10-13] MEDS: MULTIVIT, IRON, MIN NO. 8, FA TABLET GT SCH (21:42)
[2022-10-13] MEDS: ASCORBIC ACID 500 MG TABLET GT SCH (21:43)
[2022-10-14] MEDS: OMEPRAZOLE 20 MG CAPSULE.DR GT SCH (05:10)
[2022-10-14 08:00] VITALS: TEMP 98.6
[2022-10-14 09:00] VITALS: O2SAT 98
[2022-10-14] MEDS: HYDROGEN PEROXIDE 3% 118 ML BOTTLE TP SCH ×2 (09:00→19:14)
[2022-10-14] MEDS: BACLOFEN 20 MG TABLET GT SCH ×4 (09:15→21:07)
[2022-10-14] MEDS: ACIDOPHILUS/BULGARICUS CHEW TAB GT SCH ×2 (09:15→21:07)
[2022-10-14] MEDS: REMEDY ESSENTIAL ZINC PASTE 113 GM TOP SCH ×2 (09:16→21:08)
[2022-10-14] MEDS: DOXYCYCLINE 100MG CAPSULE GT SCH ×2 (09:16→21:08)
[2022-10-14] MEDS: METOPROLOL TARTRATE 50 MG TABLET GT SCH ×2 (09:16→21:08)
[2022-10-14] MEDS: MINERAL OIL/PETROLATUM,WHITE 57 GM TUBE TP SCH (09:16)
[2022-10-14] MEDS: SERTRALINE HCL 50 MG TABLET GT SCH (09:16)
[2022-10-14] MEDS: SIMETHICONE 80 MG TAB.CHEW GT SCH ×3 (09:16→17:32)
[2022-10-14] MEDS: CALCIPOTRIENE TOP SCH (09:16)
[2022-10-14] MEDS: GLUCERNA 1.2 1000ML LIQUID GT PRN (09:47)
[2022-10-14] MEDS: ASCORBIC ACID 500 MG TABLET GT SCH (21:08)
[2022-10-14 22:13] VITALS: TEMP 98.4
[2022-10-14 22:34] VITALS: O2SAT 98
[2022-10-15] MEDS: OMEPRAZOLE 20 MG CAPSULE.DR GT SCH (05:14)
[2022-10-15 07:29] VITALS: TEMP 97.4
[2022-10-15] MEDS: HYDROGEN PEROXIDE 3% 118 ML BOTTLE TP SCH ×2 (08:06→19:15)
[2022-10-15] MEDS: BACLOFEN 20 MG TABLET GT SCH ×4 (08:41→20:20)
[2022-10-15] MEDS: ACIDOPHILUS/BULGARICUS CHEW TAB GT SCH ×2 (08:41→20:20)
[2022-10-15] MEDS: CALCIPOTRIENE TOP SCH (08:42)
[2022-10-15] MEDS: SIMETHICONE 80 MG TAB.CHEW GT SCH ×3 (08:42→17:00)
[2022-10-15] MEDS: METOPROLOL TARTRATE 50 MG TABLET GT SCH ×2 (08:42→20:20)
[2022-10-15] MEDS: DOXYCYCLINE 100MG CAPSULE GT SCH ×2 (08:42→20:20)
[2022-10-15] MEDS: REMEDY ESSENTIAL ZINC PASTE 113 GM TOP SCH ×2 (08:42→20:21)
[2022-10-15] MEDS: MINERAL OIL/PETROLATUM,WHITE 57 GM TUBE TP SCH (08:42)
[2022-10-15] MEDS: SERTRALINE HCL 50 MG TABLET GT SCH (08:42)
[2022-10-15 11:37] VITALS: O2SAT 99
[2022-10-15] MEDS: ASCORBIC ACID 500 MG TABLET GT SCH (20:20)
[2022-10-15] MEDS: MULTIVIT, IRON, MIN NO. 8, FA TABLET GT SCH (20:20)
[2022-10-15 20:22] VITALS: TEMP 98
[2022-10-15 21:58] VITALS: O2SAT 98
[2022-10-16] MEDS: OMEPRAZOLE 20 MG CAPSULE.DR GT SCH (05:24)
[2022-10-16 07:22] VITALS: TEMP 97.4
[2022-10-16] MEDS: HYDROGEN PEROXIDE 3% 118 ML BOTTLE TP SCH ×2 (08:07→19:27)
[2022-10-16] MEDS: SIMETHICONE 80 MG TAB.CHEW GT SCH ×3 (08:18→16:17)
[2022-10-16] MEDS: BACLOFEN 20 MG TABLET GT SCH ×4 (08:19→20:24)
[2022-10-16] MEDS: SERTRALINE HCL 50 MG TABLET GT SCH (08:19)
[2022-10-16] MEDS: DOXYCYCLINE 100MG CAPSULE GT SCH ×2 (08:20→20:25)
[2022-10-16] MEDS: METOPROLOL TARTRATE 50 MG TABLET GT SCH ×2 (08:20→20:25)
[2022-10-16] MEDS: REMEDY ESSENTIAL ZINC PASTE 113 GM TOP SCH ×2 (08:21→20:25)
[2022-10-16] MEDS: CALCIPOTRIENE TOP SCH (08:21)
[2022-10-16] MEDS: MINERAL OIL/PETROLATUM,WHITE 57 GM TUBE TP SCH (08:21)
[2022-10-16] MEDS: KETOCONAZOLE 2% SHAMPOO 120 ML BOTTLE TP SCH (08:23)
[2022-10-16] MEDS: ACIDOPHILUS/BULGARICUS CHEW TAB GT SCH ×2 (08:24→20:24)
[2022-10-16 12:32] VITALS: O2SAT 99
[2022-10-16] MEDS: GLUCERNA 1.2 1000ML LIQUID GT PRN (13:08)
[2022-10-16 19:15] VITALS: O2SAT 99
[2022-10-16] MEDS: ASCORBIC ACID 500 MG TABLET GT SCH (20:25)
[2022-10-16] MEDS: TRIAMCINOLONE ACET 0.1% OINT 15 GM TUBE TP SCH (20:26)
[2022-10-16 21:10] VITALS: TEMP 98.1
[2022-10-17] MEDS: OMEPRAZOLE 20 MG CAPSULE.DR GT SCH (05:11)
[2022-10-17 07:15] VITALS: O2SAT 97
[2022-10-17 07:29] VITALS: TEMP 97.5
[2022-10-17] MEDS: REMEDY ESSENTIAL ZINC PASTE 113 GM TOP SCH ×2 (09:00→21:41)
[2022-10-17] MEDS: DOXYCYCLINE 100MG CAPSULE GT SCH ×2 (09:00→21:39)
[2022-10-17] MEDS: HYDROGEN PEROXIDE 3% 118 ML BOTTLE TP SCH ×2 (09:00→19:27)
[2022-10-17] MEDS: SIMETHICONE 80 MG TAB.CHEW GT SCH ×3 (09:00→17:00)
[2022-10-17] MEDS: SERTRALINE HCL 50 MG TABLET GT SCH (09:00)
[2022-10-17] MEDS: ACIDOPHILUS/BULGARICUS CHEW TAB GT SCH ×2 (09:00→21:33)
[2022-10-17] MEDS: MINERAL OIL/PETROLATUM,WHITE 57 GM TUBE TP SCH (09:00)
[2022-10-17] MEDS: METOPROLOL TARTRATE 50 MG TABLET GT SCH ×2 (09:00→21:39)
[2022-10-17] MEDS: CALCIPOTRIENE TOP SCH (09:00)
[2022-10-17] MEDS: BACLOFEN 20 MG TABLET GT SCH ×4 (09:00→21:33)
[2022-10-17 13:33] VITALS: O2SAT 97
[2022-10-17] MEDS: GLUCERNA 1.2 1000ML LIQUID GT PRN (18:40)
[2022-10-17 19:25] VITALS: O2SAT 99
[2022-10-17 20:29] VITALS: TEMP 98.3
[2022-10-17] MEDS: ASCORBIC ACID 500 MG TABLET GT SCH (21:41)
[2022-10-17] MEDS: MULTIVIT, IRON, MIN NO. 8, FA TABLET GT SCH (21:41)
[2022-10-18] MEDS: OMEPRAZOLE 20 MG CAPSULE.DR GT SCH (05:35)
[2022-10-18 07:09] VITALS: O2SAT 97
[2022-10-18] MEDS: HYDROGEN PEROXIDE 3% 118 ML BOTTLE TP SCH ×2 (07:20→19:17)
[2022-10-18 08:00] VITALS: TEMP 97.6
[2022-10-18] MEDS: ACIDOPHILUS/BULGARICUS CHEW TAB GT SCH ×2 (08:31→21:00)
[2022-10-18] MEDS: BACLOFEN 20 MG TABLET GT SCH ×4 (08:32→21:00)
[2022-10-18] MEDS: METOPROLOL TARTRATE 50 MG TABLET GT SCH ×2 (08:33→21:00)
[2022-10-18] MEDS: SIMETHICONE 80 MG TAB.CHEW GT SCH ×3 (08:34→16:43)
[2022-10-18] MEDS: SERTRALINE HCL 50 MG TABLET GT SCH (08:36)
[2022-10-18] MEDS: DOXYCYCLINE 100MG CAPSULE GT SCH ×2 (08:37→21:00)
[2022-10-18] MEDS: MINERAL OIL/PETROLATUM,WHITE 57 GM TUBE TP SCH (08:38)
[2022-10-18] MEDS: REMEDY ESSENTIAL ZINC PASTE 113 GM TOP SCH ×2 (08:38→21:00)
[2022-10-18] MEDS: CALCIPOTRIENE TOP SCH (08:38)
[2022-10-18 14:51] VITALS: O2SAT 97
[2022-10-18 19:15] VITALS: O2SAT 99
[2022-10-18 21:00] VITALS: TEMP 98.3
[2022-10-18] MEDS: ASCORBIC ACID 500 MG TABLET GT SCH (21:00)
[2022-10-19] MEDS: OMEPRAZOLE 20 MG CAPSULE.DR GT SCH (05:15)
[2022-10-19] MEDS: GLUCERNA 1.2 1000ML LIQUID GT PRN (05:51)
[2022-10-19 08:00] VITALS: TEMP 98
[2022-10-19] MEDS: SERTRALINE HCL 50 MG TABLET GT SCH (09:00)
[2022-10-19] MEDS: DOXYCYCLINE 100MG CAPSULE GT SCH (09:00)
[2022-10-19] MEDS: BACLOFEN 20 MG TABLET GT SCH ×4 (09:00→21:00)
[2022-10-19] MEDS: METOPROLOL TARTRATE 50 MG TABLET GT SCH ×2 (09:00→21:00)
[2022-10-19] MEDS: REMEDY ESSENTIAL ZINC PASTE 113 GM TOP SCH ×2 (09:00→21:00)
[2022-10-19] MEDS: SIMETHICONE 80 MG TAB.CHEW GT SCH ×3 (09:00→17:27)
[2022-10-19] MEDS: MINERAL OIL/PETROLATUM,WHITE 57 GM TUBE TP SCH (09:00)
[2022-10-19] MEDS: CALCIPOTRIENE TOP SCH (09:00)
[2022-10-19] MEDS: KETOCONAZOLE 2% SHAMPOO 120 ML BOTTLE TP SCH (09:00)
[2022-10-19] MEDS: ACIDOPHILUS/BULGARICUS CHEW TAB GT SCH ×2 (09:00→21:00)
[2022-10-19] MEDS: HYDROGEN PEROXIDE 3% 118 ML BOTTLE TP SCH ×2 (09:39→19:26)
[2022-10-19 12:44] VITALS: O2SAT 99
[2022-10-19 19:00] VITALS: O2SAT 99
[2022-10-19 20:00] VITALS: TEMP 99
[2022-10-19] MEDS: MULTIVIT, IRON, MIN NO. 8, FA TABLET GT SCH (21:00)
[2022-10-19] MEDS: ASCORBIC ACID 500 MG TABLET GT SCH (21:00)
[2022-10-19] MEDS: TRIAMCINOLONE ACET 0.1% OINT 15 GM TUBE TP SCH (21:00)
[2022-10-20] MEDS: OMEPRAZOLE 20 MG CAPSULE.DR GT SCH (06:18)
[2022-10-20 07:42] VITALS: TEMP 98.5
[2022-10-20] MEDS: ACIDOPHILUS/BULGARICUS CHEW TAB GT SCH ×2 (08:27→21:04)
[2022-10-20] MEDS: BACLOFEN 20 MG TABLET GT SCH ×4 (08:28→21:04)
[2022-10-20] MEDS: METOPROLOL TARTRATE 50 MG TABLET GT SCH ×2 (08:29→21:05)
[2022-10-20] MEDS: SERTRALINE HCL 50 MG TABLET GT SCH (08:30)
[2022-10-20] MEDS: SIMETHICONE 80 MG TAB.CHEW GT SCH ×3 (08:30→16:52)
[2022-10-20] MEDS: CALCIPOTRIENE TOP SCH (08:31)
[2022-10-20] MEDS: REMEDY ESSENTIAL ZINC PASTE 113 GM TOP SCH ×2 (08:32→21:05)
[2022-10-20] MEDS: MINERAL OIL/PETROLATUM,WHITE 57 GM TUBE TP SCH (08:33)
[2022-10-20 08:40] VITALS: O2SAT 98
[2022-10-20] MEDS: HYDROGEN PEROXIDE 3% 118 ML BOTTLE TP SCH ×2 (08:40→19:15)
[2022-10-20] MEDS: GLUCERNA 1.2 1000ML LIQUID GT PRN (13:45)
[2022-10-20 20:11] VITALS: TEMP 98.8
[2022-10-20] MEDS: ASCORBIC ACID 500 MG TABLET GT SCH (21:05)
[2022-10-21] MEDS: ACIDOPHILUS/BULGARICUS CHEW TAB GT SCH ×2 (05:16→21:15)
[2022-10-21] MEDS: OMEPRAZOLE 20 MG CAPSULE.DR GT SCH (05:16)
[2022-10-21 07:05] VITALS: O2SAT 97
[2022-10-21 08:00] VITALS: TEMP 98.2
[2022-10-21] MEDS: BACLOFEN 20 MG TABLET GT SCH ×4 (08:56→21:15)
[2022-10-21] MEDS: METOPROLOL TARTRATE 50 MG TABLET GT SCH ×2 (08:58→21:15)
[2022-10-21] MEDS: SIMETHICONE 80 MG TAB.CHEW GT SCH ×3 (08:59→17:53)
[2022-10-21] MEDS: HYDROGEN PEROXIDE 3% 118 ML BOTTLE TP SCH ×2 (09:00→19:06)
[2022-10-21] MEDS: SERTRALINE HCL 50 MG TABLET GT SCH (09:00)
[2022-10-21] MEDS: CALCIPOTRIENE TOP SCH (09:02)
[2022-10-21] MEDS: REMEDY ESSENTIAL ZINC PASTE 113 GM TOP SCH ×2 (09:02→21:16)
[2022-10-21] MEDS: MINERAL OIL/PETROLATUM,WHITE 57 GM TUBE TP SCH (09:05)
[2022-10-21 18:52] VITALS: O2SAT 97
[2022-10-21 19:10] VITALS: O2SAT 99
[2022-10-21] MEDS: MULTIVIT, IRON, MIN NO. 8, FA TABLET GT SCH (21:15)
[2022-10-21] MEDS: ASCORBIC ACID 500 MG TABLET GT SCH (21:15)
[2022-10-21 22:56] VITALS: TEMP 97.7
[2022-10-21] MEDS: GLUCERNA 1.2 1000ML LIQUID GT PRN (23:00)
[2022-10-22] MEDS: OMEPRAZOLE 20 MG CAPSULE.DR GT SCH (06:03)
[2022-10-22 08:00] VITALS: TEMP 98.4
[2022-10-22] MEDS: HYDROGEN PEROXIDE 3% 118 ML BOTTLE TP SCH ×2 (08:05→19:33)
[2022-10-22] MEDS: ACIDOPHILUS/BULGARICUS CHEW TAB GT SCH ×2 (09:54→20:21)
[2022-10-22] MEDS: BACLOFEN 20 MG TABLET GT SCH ×4 (09:55→20:21)
[2022-10-22] MEDS: SERTRALINE HCL 50 MG TABLET GT SCH (09:56)
[2022-10-22] MEDS: SIMETHICONE 80 MG TAB.CHEW GT SCH ×3 (09:56→16:56)
[2022-10-22] MEDS: METOPROLOL TARTRATE 50 MG TABLET GT SCH ×2 (09:57→20:22)
[2022-10-22] MEDS: CALCIPOTRIENE TOP SCH (09:58)
[2022-10-22] MEDS: REMEDY ESSENTIAL ZINC PASTE 113 GM TOP SCH ×2 (09:58→20:22)
[2022-10-22] MEDS: MINERAL OIL/PETROLATUM,WHITE 57 GM TUBE TP SCH (09:58)
[2022-10-22 11:49] VITALS: O2SAT 97
[2022-10-22 19:56] VITALS: TEMP 98.3
[2022-10-22] MEDS: ASCORBIC ACID 500 MG TABLET GT SCH (20:22)
[2022-10-22 20:45] VITALS: O2SAT 99
[2022-10-23] MEDS: OMEPRAZOLE 20 MG CAPSULE.DR GT SCH (05:52)
[2022-10-23 07:20] VITALS: TEMP 98.5
[2022-10-23] MEDS: HYDROGEN PEROXIDE 3% 118 ML BOTTLE TP SCH ×2 (08:08→19:11)
[2022-10-23] MEDS: ACIDOPHILUS/BULGARICUS CHEW TAB GT SCH ×2 (08:46→20:34)
[2022-10-23] MEDS: BACLOFEN 20 MG TABLET GT SCH ×4 (08:47→20:34)
[2022-10-23] MEDS: METOPROLOL TARTRATE 50 MG TABLET GT SCH ×2 (08:48→20:35)
[2022-10-23] MEDS: SERTRALINE HCL 50 MG TABLET GT SCH (08:49)
[2022-10-23] MEDS: SIMETHICONE 80 MG TAB.CHEW GT SCH ×3 (08:50→16:35)
[2022-10-23] MEDS: REMEDY ESSENTIAL ZINC PASTE 113 GM TOP SCH ×2 (08:50→20:36)
[2022-10-23] MEDS: CALCIPOTRIENE TOP SCH (08:50)
[2022-10-23] MEDS: MINERAL OIL/PETROLATUM,WHITE 57 GM TUBE TP SCH (08:50)
[2022-10-23] MEDS: KETOCONAZOLE 2% SHAMPOO 120 ML BOTTLE TP SCH (08:51)
[2022-10-23 14:32] VITALS: O2SAT 99
[2022-10-23 20:00] VITALS: TEMP 98
[2022-10-23] MEDS: MULTIVIT, IRON, MIN NO. 8, FA TABLET GT SCH (20:35)
[2022-10-23] MEDS: ASCORBIC ACID 500 MG TABLET GT SCH (20:35)
[2022-10-23] MEDS: TRIAMCINOLONE ACET 0.1% OINT 15 GM TUBE TP SCH (20:36)
[2022-10-23 21:28] VITALS: O2SAT 99
[2022-10-24] MEDS: OMEPRAZOLE 20 MG CAPSULE.DR GT SCH (05:35)
[2022-10-24] MEDS: GLUCERNA 1.2 1000ML LIQUID GT PRN (05:35)
[2022-10-24 07:10] VITALS: O2SAT 97
[2022-10-24 07:14] VITALS: TEMP 98
[2022-10-24] MEDS: HYDROGEN PEROXIDE 3% 118 ML BOTTLE TP SCH ×2 (08:14→19:20)
[2022-10-24] MEDS: ACIDOPHILUS/BULGARICUS CHEW TAB GT SCH ×2 (08:33→21:04)
[2022-10-24] MEDS: SIMETHICONE 80 MG TAB.CHEW GT SCH ×3 (08:34→17:06)
[2022-10-24] MEDS: METOPROLOL TARTRATE 50 MG TABLET GT SCH ×2 (08:34→21:05)
[2022-10-24] MEDS: SERTRALINE HCL 50 MG TABLET GT SCH (08:34)
[2022-10-24] MEDS: BACLOFEN 20 MG TABLET GT SCH ×4 (08:34→21:04)
[2022-10-24] MEDS: MINERAL OIL/PETROLATUM,WHITE 57 GM TUBE TP SCH (08:35)
[2022-10-24] MEDS: REMEDY ESSENTIAL ZINC PASTE 113 GM TOP SCH ×2 (08:35→21:05)
[2022-10-24] MEDS: CALCIPOTRIENE TOP SCH (09:00)
[2022-10-24 17:39] VITALS: O2SAT 97
[2022-10-24 19:15] VITALS: O2SAT 99
[2022-10-24] MEDS: ASCORBIC ACID 500 MG TABLET GT SCH (21:05)
[2022-10-24 23:37] VITALS: TEMP 97.7
[2022-10-25] MEDS: OMEPRAZOLE 20 MG CAPSULE.DR GT SCH (05:12)
[2022-10-25] MEDS: GLUCERNA 1.2 1000ML LIQUID GT PRN (05:12)
[2022-10-25 07:18] VITALS: TEMP 97.7
[2022-10-25] MEDS: SIMETHICONE 80 MG TAB.CHEW GT SCH ×3 (08:02→17:00)
[2022-10-25] MEDS: SERTRALINE HCL 50 MG TABLET GT SCH (08:02)
[2022-10-25] MEDS: ACIDOPHILUS/BULGARICUS CHEW TAB GT SCH ×2 (08:02→20:30)
[2022-10-25] MEDS: BACLOFEN 20 MG TABLET GT SCH ×4 (08:02→20:30)
[2022-10-25] MEDS: METOPROLOL TARTRATE 50 MG TABLET GT SCH ×2 (08:02→20:30)
[2022-10-25] MEDS: MINERAL OIL/PETROLATUM,WHITE 57 GM TUBE TP SCH (08:03)
[2022-10-25] MEDS: REMEDY ESSENTIAL ZINC PASTE 113 GM TOP SCH ×2 (08:03→20:31)
[2022-10-25] MEDS: CALCIPOTRIENE TOP SCH (08:03)
[2022-10-25] MEDS: HYDROGEN PEROXIDE 3% 118 ML BOTTLE TP SCH ×2 (08:11→19:19)
[2022-10-25 12:33] VITALS: O2SAT 99
[2022-10-25 19:15] VITALS: O2SAT 99
[2022-10-25 20:00] VITALS: TEMP 98
[2022-10-25] MEDS: MULTIVIT, IRON, MIN NO. 8, FA TABLET GT SCH (20:31)
[2022-10-25] MEDS: ASCORBIC ACID 500 MG TABLET GT SCH (20:31)
[2022-10-26] MEDS: OMEPRAZOLE 20 MG CAPSULE.DR GT SCH (05:08)
[2022-10-26 07:19] VITALS: TEMP 97.8
[2022-10-26 07:53] VITALS: O2SAT 97
[2022-10-26] MEDS: HYDROGEN PEROXIDE 3% 118 ML BOTTLE TP SCH ×2 (09:00→21:19)
[2022-10-26] MEDS: ACIDOPHILUS/BULGARICUS CHEW TAB GT SCH ×2 (09:53→21:29)
[2022-10-26] MEDS: BACLOFEN 20 MG TABLET GT SCH ×4 (09:55→21:29)
[2022-10-26] MEDS: REMEDY ESSENTIAL ZINC PASTE 113 GM TOP SCH ×2 (09:56→21:31)
[2022-10-26] MEDS: SIMETHICONE 80 MG TAB.CHEW GT SCH ×3 (09:56→17:25)
[2022-10-26] MEDS: METOPROLOL TARTRATE 50 MG TABLET GT SCH ×2 (09:56→21:30)
[2022-10-26] MEDS: CALCIPOTRIENE TOP SCH (09:56)
[2022-10-26] MEDS: SERTRALINE HCL 50 MG TABLET GT SCH (09:56)
[2022-10-26] MEDS: MINERAL OIL/PETROLATUM,WHITE 57 GM TUBE TP SCH (09:56)
[2022-10-26] MEDS: KETOCONAZOLE 2% SHAMPOO 120 ML BOTTLE TP SCH (09:57)
[2022-10-26 14:49] VITALS: O2SAT 97
[2022-10-26 19:55] VITALS: O2SAT 99
[2022-10-26 20:00] VITALS: TEMP 98
[2022-10-26] MEDS: TRIAMCINOLONE ACET 0.1% OINT 15 GM TUBE TP SCH (21:28)
[2022-10-26] MEDS: ASCORBIC ACID 500 MG TABLET GT SCH (21:31)
[2022-10-27] MEDS: OMEPRAZOLE 20 MG CAPSULE.DR GT SCH (05:47)
[2022-10-27] MEDS: HYDROGEN PEROXIDE 3% 118 ML BOTTLE TP SCH ×2 (07:44→20:23)
[2022-10-27 07:49] VITALS: TEMP 98.4
[2022-10-27] MEDS: ACIDOPHILUS/BULGARICUS CHEW TAB GT SCH ×2 (08:17→21:34)
[2022-10-27] MEDS: METOPROLOL TARTRATE 50 MG TABLET GT SCH ×2 (08:20→21:36)
[2022-10-27] MEDS: BACLOFEN 20 MG TABLET GT SCH ×4 (08:20→21:35)
[2022-10-27] MEDS: REMEDY ESSENTIAL ZINC PASTE 113 GM TOP SCH ×2 (08:21→21:37)
[2022-10-27] MEDS: SERTRALINE HCL 50 MG TABLET GT SCH (08:21)
[2022-10-27] MEDS: CALCIPOTRIENE TOP SCH (08:21)
[2022-10-27] MEDS: SIMETHICONE 80 MG TAB.CHEW GT SCH ×3 (08:21→16:05)
[2022-10-27] MEDS: MINERAL OIL/PETROLATUM,WHITE 57 GM TUBE TP SCH (08:22)
[2022-10-27 10:20] VITALS: O2SAT 97
[2022-10-27 20:00] VITALS: TEMP 98.1
[2022-10-27 20:05] VITALS: O2SAT 99
[2022-10-27] MEDS: ASCORBIC ACID 500 MG TABLET GT SCH (21:36)
[2022-10-27] MEDS: MULTIVIT, IRON, MIN NO. 8, FA TABLET GT SCH (21:36)
[2022-10-28] MEDS: OMEPRAZOLE 20 MG CAPSULE.DR GT SCH (06:10)
[2022-10-28] MEDS: HYDROGEN PEROXIDE 3% 118 ML BOTTLE TP SCH ×2 (07:30→19:10)
[2022-10-28 07:59] VITALS: TEMP 98
[2022-10-28] MEDS: BACLOFEN 20 MG TABLET GT SCH ×4 (09:05→21:19)
[2022-10-28] MEDS: ACIDOPHILUS/BULGARICUS CHEW TAB GT SCH ×2 (09:05→21:19)
[2022-10-28] MEDS: SIMETHICONE 80 MG TAB.CHEW GT SCH ×3 (09:06→17:00)
[2022-10-28] MEDS: REMEDY ESSENTIAL ZINC PASTE 113 GM TOP SCH ×2 (09:06→21:19)
[2022-10-28] MEDS: CALCIPOTRIENE TOP SCH (09:06)
[2022-10-28] MEDS: METOPROLOL TARTRATE 50 MG TABLET GT SCH ×2 (09:06→21:20)
[2022-10-28] MEDS: MINERAL OIL/PETROLATUM,WHITE 57 GM TUBE TP SCH (09:06)
[2022-10-28] MEDS: SERTRALINE HCL 50 MG TABLET GT SCH (09:06)
[2022-10-28 10:20] VITALS: O2SAT 97
[2022-10-28] MEDS: GLUCERNA 1.2 1000ML LIQUID GT PRN (14:43)
[2022-10-28 20:48] VITALS: TEMP 98.2
[2022-10-28] MEDS: ASCORBIC ACID 500 MG TABLET GT SCH (21:19)
[2022-10-28 22:28] VITALS: O2SAT 99
[2022-10-29] MEDS: OMEPRAZOLE 20 MG CAPSULE.DR GT SCH (05:17)
[2022-10-29 07:26] VITALS: TEMP 97.9
[2022-10-29] MEDS: HYDROGEN PEROXIDE 3% 118 ML BOTTLE TP SCH ×2 (08:02→19:19)
[2022-10-29] MEDS: SERTRALINE HCL 50 MG TABLET GT SCH (08:41)
[2022-10-29] MEDS: SIMETHICONE 80 MG TAB.CHEW GT SCH ×3 (08:41→17:44)
[2022-10-29] MEDS: ACIDOPHILUS/BULGARICUS CHEW TAB GT SCH ×2 (08:41→20:43)
[2022-10-29] MEDS: METOPROLOL TARTRATE 50 MG TABLET GT SCH ×2 (08:41→20:43)
[2022-10-29] MEDS: BACLOFEN 20 MG TABLET GT SCH ×4 (08:41→20:43)
[2022-10-29] MEDS: CALCIPOTRIENE TOP SCH (08:41)
[2022-10-29] MEDS: REMEDY ESSENTIAL ZINC PASTE 113 GM TOP SCH ×2 (08:42→20:44)
[2022-10-29] MEDS: MINERAL OIL/PETROLATUM,WHITE 57 GM TUBE TP SCH (08:42)
[2022-10-29 13:45] VITALS: O2SAT 99
[2022-10-29 19:20] VITALS: O2SAT 99
[2022-10-29] MEDS: MULTIVIT, IRON, MIN NO. 8, FA TABLET GT SCH (20:43)
[2022-10-29] MEDS: ASCORBIC ACID 500 MG TABLET GT SCH (20:44)
[2022-10-29 20:58] VITALS: TEMP 98.6
[2022-10-30] MEDS: OMEPRAZOLE 20 MG CAPSULE.DR GT SCH (06:05)
[2022-10-30] MEDS: HYDROGEN PEROXIDE 3% 118 ML BOTTLE TP SCH ×2 (07:19→19:14)
[2022-10-30 07:21] VITALS: TEMP 98.4
[2022-10-30] MEDS: ACIDOPHILUS/BULGARICUS CHEW TAB GT SCH ×2 (09:55→20:18)
[2022-10-30] MEDS: BACLOFEN 20 MG TABLET GT SCH ×4 (09:55→20:18)
[2022-10-30] MEDS: CALCIPOTRIENE TOP SCH (09:56)
[2022-10-30] MEDS: REMEDY ESSENTIAL ZINC PASTE 113 GM TOP SCH ×2 (09:56→20:19)
[2022-10-30] MEDS: SERTRALINE HCL 50 MG TABLET GT SCH (09:56)
[2022-10-30] MEDS: SIMETHICONE 80 MG TAB.CHEW GT SCH ×3 (09:56→17:00)
[2022-10-30] MEDS: METOPROLOL TARTRATE 50 MG TABLET GT SCH ×2 (09:56→20:19)
[2022-10-30] MEDS: KETOCONAZOLE 2% SHAMPOO 120 ML BOTTLE TP SCH (09:57)
[2022-10-30] MEDS: MINERAL OIL/PETROLATUM,WHITE 57 GM TUBE TP SCH (09:57)
[2022-10-30 10:35] VITALS: O2SAT 98
[2022-10-30] MEDS: GLUCERNA 1.2 1000ML LIQUID GT PRN (14:31)
[2022-10-30 20:00] VITALS: TEMP 98.8
[2022-10-30] MEDS: TRIAMCINOLONE ACET 0.1% OINT 15 GM TUBE TP SCH (20:19)
[2022-10-30] MEDS: ASCORBIC ACID 500 MG TABLET GT SCH (20:19)
[2022-10-30 20:20] VITALS: O2SAT 99
[2022-10-31] MEDS: OMEPRAZOLE 20 MG CAPSULE.DR GT SCH (06:08)
[2022-10-31 07:24] VITALS: TEMP 98.8
[2022-10-31 08:04] VITALS: O2SAT 97
[2022-10-31] MEDS: HYDROGEN PEROXIDE 3% 118 ML BOTTLE TP SCH ×2 (08:04→19:14)
[2022-10-31] MEDS: METOPROLOL TARTRATE 50 MG TABLET GT SCH ×2 (09:00→21:30)
[2022-10-31] MEDS: BACLOFEN 20 MG TABLET GT SCH ×4 (09:33→21:30)
[2022-10-31] MEDS: ACIDOPHILUS/BULGARICUS CHEW TAB GT SCH ×2 (09:33→21:30)
[2022-10-31] MEDS: SIMETHICONE 80 MG TAB.CHEW GT SCH ×3 (09:34→17:44)
[2022-10-31] MEDS: SERTRALINE HCL 50 MG TABLET GT SCH (09:34)
[2022-10-31] MEDS: MINERAL OIL/PETROLATUM,WHITE 57 GM TUBE TP SCH (09:35)
[2022-10-31] MEDS: REMEDY ESSENTIAL ZINC PASTE 113 GM TOP SCH ×2 (09:35→21:30)
[2022-10-31] MEDS: CALCIPOTRIENE TOP SCH (09:35)
[2022-10-31 17:30] VITALS: O2SAT 97
[2022-10-31 19:15] VITALS: O2SAT 97
[2022-10-31 20:00] VITALS: TEMP 98.6
[2022-10-31] MEDS: ASCORBIC ACID 500 MG TABLET GT SCH (21:30)
[2022-10-31] MEDS: MULTIVIT, IRON, MIN NO. 8, FA TABLET GT SCH (21:30)
[2022-11-01] MEDS: OMEPRAZOLE 20 MG CAPSULE.DR GT SCH (06:17)
[2022-11-01 06:24] VITALS: TEMP 98
[2022-11-01] MEDS: HYDROGEN PEROXIDE 3% 118 ML BOTTLE TP SCH ×2 (08:02→20:08)
[2022-11-01] MEDS: METOPROLOL TARTRATE 50 MG TABLET GT SCH ×2 (09:41→22:00)
[2022-11-01] MEDS: BACLOFEN 20 MG TABLET GT SCH ×4 (09:41→22:00)
[2022-11-01] MEDS: SIMETHICONE 80 MG TAB.CHEW GT SCH ×3 (09:41→17:00)
[2022-11-01] MEDS: ACIDOPHILUS/BULGARICUS CHEW TAB GT SCH ×2 (09:41→22:00)
[2022-11-01] MEDS: CALCIPOTRIENE TOP SCH (09:42)
[2022-11-01] MEDS: SERTRALINE HCL 50 MG TABLET GT SCH (09:42)
[2022-11-01] MEDS: REMEDY ESSENTIAL ZINC PASTE 113 GM TOP SCH ×2 (09:42→22:00)
[2022-11-01] MEDS: MINERAL OIL/PETROLATUM,WHITE 57 GM TUBE TP SCH (09:42)
[2022-11-01 10:40] VITALS: O2SAT 97
[2022-11-01 20:19] VITALS: TEMP 98.1
[2022-11-01 21:00] VITALS: O2SAT 99
[2022-11-01] MEDS: GLUCERNA 1.2 1000ML LIQUID GT PRN (21:00)
[2022-11-01] MEDS: ASCORBIC ACID 500 MG TABLET GT SCH (22:00)
[2022-11-02] MEDS: OMEPRAZOLE 20 MG CAPSULE.DR GT SCH (06:27)
[2022-11-02 08:00] VITALS: TEMP 98.2
[2022-11-02 08:10] VITALS: O2SAT 97
[2022-11-02] MEDS: ACIDOPHILUS/BULGARICUS CHEW TAB GT SCH ×2 (08:45→21:00)
[2022-11-02] MEDS: BACLOFEN 20 MG TABLET GT SCH ×4 (08:45→21:00)
[2022-11-02] MEDS: SIMETHICONE 80 MG TAB.CHEW GT SCH ×3 (08:48→17:21)
[2022-11-02] MEDS: METOPROLOL TARTRATE 50 MG TABLET GT SCH ×2 (08:48→21:00)
[2022-11-02] MEDS: REMEDY ESSENTIAL ZINC PASTE 113 GM TOP SCH ×2 (08:49→21:00)
[2022-11-02] MEDS: CALCIPOTRIENE TOP SCH (08:49)
[2022-11-02] MEDS: SERTRALINE HCL 50 MG TABLET GT SCH (08:49)
[2022-11-02] MEDS: KETOCONAZOLE 2% SHAMPOO 120 ML BOTTLE TP SCH (08:49)
[2022-11-02] MEDS: MINERAL OIL/PETROLATUM,WHITE 57 GM TUBE TP SCH (08:49)
[2022-11-02] MEDS: HYDROGEN PEROXIDE 3% 118 ML BOTTLE TP SCH ×2 (09:23→21:28)
[2022-11-02 19:45] VITALS: O2SAT 98
[2022-11-02 20:46] VITALS: TEMP 98.2
[2022-11-02] MEDS: MULTIVIT, IRON, MIN NO. 8, FA TABLET GT SCH (21:00)
[2022-11-02] MEDS: TRIAMCINOLONE ACET 0.1% OINT 15 GM TUBE TP SCH (21:00)
[2022-11-02] MEDS: ASCORBIC ACID 500 MG TABLET GT SCH (21:00)
[2022-11-03] MEDS: OMEPRAZOLE 20 MG CAPSULE.DR GT SCH (05:32)
[2022-11-03 07:09] VITALS: O2SAT 97
[2022-11-03 08:00] VITALS: TEMP 97.4
[2022-11-03] MEDS: HYDROGEN PEROXIDE 3% 118 ML BOTTLE TP SCH ×2 (09:00→21:04)
[2022-11-03] MEDS: BACLOFEN 20 MG TABLET GT SCH ×4 (09:15→20:59)
[2022-11-03] MEDS: ACIDOPHILUS/BULGARICUS CHEW TAB GT SCH ×2 (09:15→20:59)
[2022-11-03] MEDS: METOPROLOL TARTRATE 50 MG TABLET GT SCH ×2 (09:16→20:59)
[2022-11-03] MEDS: SERTRALINE HCL 50 MG TABLET GT SCH (09:16)
[2022-11-03] MEDS: SIMETHICONE 80 MG TAB.CHEW GT SCH ×3 (09:17→17:28)
[2022-11-03] MEDS: MINERAL OIL/PETROLATUM,WHITE 57 GM TUBE TP SCH (09:20)
[2022-11-03] MEDS: REMEDY ESSENTIAL ZINC PASTE 113 GM TOP SCH ×2 (09:20→20:59)
[2022-11-03] MEDS: CALCIPOTRIENE TOP SCH (09:20)
[2022-11-03 20:29] VITALS: TEMP 98.2
[2022-11-03 20:40] VITALS: O2SAT 98
[2022-11-03] MEDS: ASCORBIC ACID 500 MG TABLET GT SCH (20:59)
[2022-11-04] MEDS: GLUCERNA 1.2 1000ML LIQUID GT PRN (05:00)
[2022-11-04] MEDS: OMEPRAZOLE 20 MG CAPSULE.DR GT SCH (05:17)
[2022-11-04 07:15] VITALS: O2SAT 97
[2022-11-04 08:00] VITALS: TEMP 97.5
[2022-11-04] MEDS: ACIDOPHILUS/BULGARICUS CHEW TAB GT SCH ×2 (08:58→20:37)
[2022-11-04] MEDS: SIMETHICONE 80 MG TAB.CHEW GT SCH ×3 (08:58→17:08)
[2022-11-04] MEDS: BACLOFEN 20 MG TABLET GT SCH ×4 (08:58→20:37)
[2022-11-04] MEDS: SERTRALINE HCL 50 MG TABLET GT SCH (08:58)
[2022-11-04] MEDS: REMEDY ESSENTIAL ZINC PASTE 113 GM TOP SCH ×2 (08:58→20:41)
[2022-11-04] MEDS: HYDROGEN PEROXIDE 3% 118 ML BOTTLE TP SCH ×3 (08:58→20:38)
[2022-11-04] MEDS: MINERAL OIL/PETROLATUM,WHITE 57 GM TUBE TP SCH (08:59)
[2022-11-04] MEDS: METOPROLOL TARTRATE 50 MG TABLET GT SCH ×2 (09:17→20:37)
[2022-11-04] MEDS: CALCIPOTRIENE TOP SCH (09:17)
[2022-11-04 14:42] VITALS: O2SAT 97
[2022-11-04 19:10] VITALS: O2SAT 98
[2022-11-04] MEDS: MULTIVIT, IRON, MIN NO. 8, FA TABLET GT SCH (20:41)
[2022-11-04] MEDS: ASCORBIC ACID 500 MG TABLET GT SCH (20:41)
[2022-11-04 20:44] VITALS: TEMP 98
[2022-11-05] MEDS: OMEPRAZOLE 20 MG CAPSULE.DR GT SCH (05:21)
[2022-11-05 07:19] VITALS: TEMP 97.8
[2022-11-05 08:35] VITALS: O2SAT 98
[2022-11-05] MEDS: CALCIPOTRIENE TOP SCH (09:00)
[2022-11-05] MEDS: HYDROGEN PEROXIDE 3% 118 ML BOTTLE TP SCH ×2 (09:00→19:12)
[2022-11-05] MEDS: MINERAL OIL/PETROLATUM,WHITE 57 GM TUBE TP SCH (09:00)
[2022-11-05] MEDS: ACIDOPHILUS/BULGARICUS CHEW TAB GT SCH ×2 (09:00→20:35)
[2022-11-05] MEDS: SERTRALINE HCL 50 MG TABLET GT SCH (09:00)
[2022-11-05] MEDS: SIMETHICONE 80 MG TAB.CHEW GT SCH ×3 (09:00→16:29)
[2022-11-05] MEDS: METOPROLOL TARTRATE 50 MG TABLET GT SCH ×2 (09:00→20:40)
[2022-11-05] MEDS: REMEDY ESSENTIAL ZINC PASTE 113 GM TOP SCH ×2 (09:00→20:40)
[2022-11-05] MEDS: BACLOFEN 20 MG TABLET GT SCH ×4 (09:00→20:35)
[2022-11-05 11:20] VITALS: O2SAT 97
[2022-11-05 19:10] VITALS: O2SAT 98
[2022-11-05] MEDS: ASCORBIC ACID 500 MG TABLET GT SCH (20:35)
[2022-11-05 21:18] VITALS: TEMP 98.4
[2022-11-06] MEDS: OMEPRAZOLE 20 MG CAPSULE.DR GT SCH (06:01)
[2022-11-06 07:23] VITALS: TEMP 97.7
[2022-11-06] MEDS: HYDROGEN PEROXIDE 3% 118 ML BOTTLE TP SCH ×2 (08:10→21:00)
[2022-11-06] MEDS: ACIDOPHILUS/BULGARICUS CHEW TAB GT SCH ×2 (08:28→21:00)
[2022-11-06] MEDS: BACLOFEN 20 MG TABLET GT SCH ×4 (08:28→21:00)
[2022-11-06] MEDS: SERTRALINE HCL 50 MG TABLET GT SCH (08:29)
[2022-11-06] MEDS: METOPROLOL TARTRATE 50 MG TABLET GT SCH ×2 (08:29→21:00)
[2022-11-06] MEDS: SIMETHICONE 80 MG TAB.CHEW GT SCH ×3 (08:29→17:18)
[2022-11-06] MEDS: REMEDY ESSENTIAL ZINC PASTE 113 GM TOP SCH ×2 (08:40→21:00)
[2022-11-06] MEDS: MINERAL OIL/PETROLATUM,WHITE 57 GM TUBE TP SCH (08:40)
[2022-11-06] MEDS: KETOCONAZOLE 2% SHAMPOO 120 ML BOTTLE TP SCH (08:40)
[2022-11-06] MEDS: CALCIPOTRIENE TOP SCH (08:40)
[2022-11-06 10:20] VITALS: O2SAT 98
[2022-11-06] MEDS: GLUCERNA 1.2 1000ML LIQUID GT PRN (12:25)
[2022-11-06 20:00] VITALS: TEMP 97.9
[2022-11-06] MEDS: MULTIVIT, IRON, MIN NO. 8, FA TABLET GT SCH (21:00)
[2022-11-06] MEDS: TRIAMCINOLONE ACET 0.1% OINT 15 GM TUBE TP SCH (21:00)
[2022-11-06] MEDS: ASCORBIC ACID 500 MG TABLET GT SCH (21:00)
[2022-11-06 22:47] VITALS: O2SAT 99
[2022-11-07] MEDS: OMEPRAZOLE 20 MG CAPSULE.DR GT SCH (05:54)
[2022-11-07 07:27] VITALS: TEMP 97.8
[2022-11-07] MEDS: HYDROGEN PEROXIDE 3% 118 ML BOTTLE TP SCH ×2 (09:09→21:00)
[2022-11-07] MEDS: ACIDOPHILUS/BULGARICUS CHEW TAB GT SCH ×2 (09:27→20:22)
[2022-11-07] MEDS: BACLOFEN 20 MG TABLET GT SCH ×4 (09:28→20:22)
[2022-11-07] MEDS: MINERAL OIL/PETROLATUM,WHITE 57 GM TUBE TP SCH (09:29)
[2022-11-07] MEDS: REMEDY ESSENTIAL ZINC PASTE 113 GM TOP SCH ×2 (09:29→20:23)
[2022-11-07] MEDS: CALCIPOTRIENE TOP SCH (09:29)
[2022-11-07] MEDS: SERTRALINE HCL 50 MG TABLET GT SCH (09:29)
[2022-11-07] MEDS: SIMETHICONE 80 MG TAB.CHEW GT SCH ×3 (09:29→17:10)
[2022-11-07] MEDS: METOPROLOL TARTRATE 50 MG TABLET GT SCH ×2 (09:29→20:22)
[2022-11-07 10:20] VITALS: O2SAT 97
[2022-11-07] MEDS: GLUCERNA 1.2 1000ML LIQUID GT PRN (18:52)
[2022-11-07 19:51] VITALS: TEMP 97.9
[2022-11-07] MEDS: ASCORBIC ACID 500 MG TABLET GT SCH (20:22)
[2022-11-08] MEDS: OMEPRAZOLE 20 MG CAPSULE.DR GT SCH (05:04)
[2022-11-08 07:19] VITALS: TEMP 97.6
[2022-11-08] MEDS: HYDROGEN PEROXIDE 3% 118 ML BOTTLE TP SCH ×2 (08:09→19:15)
[2022-11-08] MEDS: ACIDOPHILUS/BULGARICUS CHEW TAB GT SCH ×2 (08:41→20:25)
[2022-11-08] MEDS: BACLOFEN 20 MG TABLET GT SCH ×4 (08:42→20:25)
[2022-11-08] MEDS: SERTRALINE HCL 50 MG TABLET GT SCH (08:42)
[2022-11-08] MEDS: METOPROLOL TARTRATE 50 MG TABLET GT SCH ×2 (08:42→20:25)
[2022-11-08] MEDS: SIMETHICONE 80 MG TAB.CHEW GT SCH ×3 (08:42→16:51)
[2022-11-08] MEDS: MINERAL OIL/PETROLATUM,WHITE 57 GM TUBE TP SCH (08:43)
[2022-11-08] MEDS: CALCIPOTRIENE TOP SCH (08:43)
[2022-11-08] MEDS: REMEDY ESSENTIAL ZINC PASTE 113 GM TOP SCH ×2 (08:43→20:25)
[2022-11-08 10:20] VITALS: O2SAT 98
[2022-11-08 19:15] VITALS: O2SAT 99
[2022-11-08 19:48] VITALS: TEMP 98
[2022-11-08] MEDS: ASCORBIC ACID 500 MG TABLET GT SCH (20:25)
[2022-11-08] MEDS: MULTIVIT, IRON, MIN NO. 8, FA TABLET GT SCH (20:25)
[2022-11-09] MEDS: OMEPRAZOLE 20 MG CAPSULE.DR GT SCH (05:03)
[2022-11-09] MEDS: HYDROGEN PEROXIDE 3% 118 ML BOTTLE TP SCH ×2 (07:04→19:11)
[2022-11-09 07:56] VITALS: TEMP 97.7
[2022-11-09] MEDS: ACIDOPHILUS/BULGARICUS CHEW TAB GT SCH ×2 (09:07→20:25)
[2022-11-09] MEDS: BACLOFEN 20 MG TABLET GT SCH ×4 (09:07→20:25)
[2022-11-09] MEDS: CALCIPOTRIENE TOP SCH (09:08)
[2022-11-09] MEDS: METOPROLOL TARTRATE 50 MG TABLET GT SCH ×2 (09:08→20:26)
[2022-11-09] MEDS: KETOCONAZOLE 2% SHAMPOO 120 ML BOTTLE TP SCH (09:08)
[2022-11-09] MEDS: REMEDY ESSENTIAL ZINC PASTE 113 GM TOP SCH ×2 (09:08→20:26)
[2022-11-09] MEDS: SERTRALINE HCL 50 MG TABLET GT SCH (09:08)
[2022-11-09] MEDS: SIMETHICONE 80 MG TAB.CHEW GT SCH ×3 (09:08→17:00)
[2022-11-09] MEDS: MINERAL OIL/PETROLATUM,WHITE 57 GM TUBE TP SCH (09:08)
[2022-11-09 10:45] VITALS: O2SAT 97
[2022-11-09 19:10] VITALS: O2SAT 99
[2022-11-09 19:46] VITALS: TEMP 97.9
[2022-11-09] MEDS: TRIAMCINOLONE ACET 0.1% OINT 15 GM TUBE TP SCH (20:26)
[2022-11-09] MEDS: ASCORBIC ACID 500 MG TABLET GT SCH (20:26)
[2022-11-10] MEDS: OMEPRAZOLE 20 MG CAPSULE.DR GT SCH (05:04)
[2022-11-10 07:05] VITALS: O2SAT 97
[2022-11-10] MEDS: HYDROGEN PEROXIDE 3% 118 ML BOTTLE TP SCH ×2 (07:05→18:59)
[2022-11-10 07:40] VITALS: TEMP 98.3
[2022-11-10] MEDS: REMEDY ESSENTIAL ZINC PASTE 113 GM TOP SCH ×2 (09:00→21:02)
[2022-11-10] MEDS: CALCIPOTRIENE TOP SCH (09:00)
[2022-11-10] MEDS: MINERAL OIL/PETROLATUM,WHITE 57 GM TUBE TP SCH (09:00)
[2022-11-10] MEDS: ACIDOPHILUS/BULGARICUS CHEW TAB GT SCH ×2 (09:13→21:01)
[2022-11-10] MEDS: BACLOFEN 20 MG TABLET GT SCH ×4 (09:14→21:01)
[2022-11-10] MEDS: SIMETHICONE 80 MG TAB.CHEW GT SCH ×3 (09:15→17:22)
[2022-11-10] MEDS: SERTRALINE HCL 50 MG TABLET GT SCH (09:15)
[2022-11-10] MEDS: METOPROLOL TARTRATE 50 MG TABLET GT SCH ×2 (09:15→21:23)
[2022-11-10 19:53] VITALS: TEMP 97.9
[2022-11-10 20:40] VITALS: O2SAT 99
[2022-11-10] MEDS: ASCORBIC ACID 500 MG TABLET GT SCH (21:01)
[2022-11-10] MEDS: MULTIVIT, IRON, MIN NO. 8, FA TABLET GT SCH (21:01)
[2022-11-11] MEDS: OMEPRAZOLE 20 MG CAPSULE.DR GT SCH (05:48)
[2022-11-11 07:43] VITALS: TEMP 98.3
[2022-11-11] MEDS: MINERAL OIL/PETROLATUM,WHITE 57 GM TUBE TP SCH (09:00)
[2022-11-11] MEDS: CALCIPOTRIENE TOP SCH (09:00)
[2022-11-11] MEDS: REMEDY ESSENTIAL ZINC PASTE 113 GM TOP SCH ×2 (09:00→21:04)
[2022-11-11 09:10] VITALS: O2SAT 99
[2022-11-11] MEDS: HYDROGEN PEROXIDE 3% 118 ML BOTTLE TP SCH ×2 (09:10→21:16)
[2022-11-11] MEDS: ACIDOPHILUS/BULGARICUS CHEW TAB GT SCH ×2 (09:32→21:03)
[2022-11-11] MEDS: SIMETHICONE 80 MG TAB.CHEW GT SCH ×3 (09:35→17:19)
[2022-11-11] MEDS: BACLOFEN 20 MG TABLET GT SCH ×4 (09:35→21:03)
[2022-11-11] MEDS: SERTRALINE HCL 50 MG TABLET GT SCH (09:35)
[2022-11-11] MEDS: METOPROLOL TARTRATE 50 MG TABLET GT SCH ×2 (09:36→21:03)
[2022-11-11] MEDS: ACETAMINOPHEN 650 MG/20 ML UDC- SA PATIENTS-PAIN ONLY GT PRN (09:36)
[2022-11-11] MEDS: GLUCERNA 1.2 1000ML LIQUID GT PRN (16:39)
[2022-11-11 20:00] VITALS: TEMP 97.8
[2022-11-11] MEDS: ASCORBIC ACID 500 MG TABLET GT SCH (21:03)
[2022-11-11 21:16] VITALS: O2SAT 99
[2022-11-12] MEDS: OMEPRAZOLE 20 MG CAPSULE.DR GT SCH (05:39)
[2022-11-12] MEDS: HYDROGEN PEROXIDE 3% 118 ML BOTTLE TP SCH ×2 (07:21→21:00)
[2022-11-12 07:31] VITALS: TEMP 97.8
[2022-11-12] MEDS: ACIDOPHILUS/BULGARICUS CHEW TAB GT SCH ×2 (09:30→20:25)
[2022-11-12] MEDS: BACLOFEN 20 MG TABLET GT SCH ×4 (09:30→20:25)
[2022-11-12] MEDS: SIMETHICONE 80 MG TAB.CHEW GT SCH ×3 (09:31→17:12)
[2022-11-12] MEDS: REMEDY ESSENTIAL ZINC PASTE 113 GM TOP SCH ×2 (09:31→20:26)
[2022-11-12] MEDS: SERTRALINE HCL 50 MG TABLET GT SCH (09:31)
[2022-11-12] MEDS: CALCIPOTRIENE TOP SCH (09:31)
[2022-11-12] MEDS: MINERAL OIL/PETROLATUM,WHITE 57 GM TUBE TP SCH (09:31)
[2022-11-12] MEDS: METOPROLOL TARTRATE 50 MG TABLET GT SCH ×2 (09:32→20:26)
[2022-11-12 10:20] VITALS: O2SAT 99
[2022-11-12] MEDS: MULTIVIT, IRON, MIN NO. 8, FA TABLET GT SCH (20:26)
[2022-11-12] MEDS: ASCORBIC ACID 500 MG TABLET GT SCH (20:26)
[2022-11-12 20:30] VITALS: TEMP 99
[2022-11-12 21:00] VITALS: O2SAT 99
[2022-11-13] MEDS: OMEPRAZOLE 20 MG CAPSULE.DR GT SCH (06:00)
[2022-11-13 07:24] VITALS: TEMP 97.7
[2022-11-13] MEDS: HYDROGEN PEROXIDE 3% 118 ML BOTTLE TP SCH ×2 (08:15→18:57)
[2022-11-13] MEDS: METOPROLOL TARTRATE 50 MG TABLET GT SCH ×2 (09:00→21:00)
[2022-11-13] MEDS: CALCIPOTRIENE TOP SCH (09:41)
[2022-11-13] MEDS: BACLOFEN 20 MG TABLET GT SCH ×4 (09:41→21:00)
[2022-11-13] MEDS: SERTRALINE HCL 50 MG TABLET GT SCH (09:41)
[2022-11-13] MEDS: SIMETHICONE 80 MG TAB.CHEW GT SCH ×3 (09:41→17:56)
[2022-11-13] MEDS: ACIDOPHILUS/BULGARICUS CHEW TAB GT SCH ×2 (09:41→21:00)
[2022-11-13] MEDS: REMEDY ESSENTIAL ZINC PASTE 113 GM TOP SCH ×2 (09:42→21:00)
[2022-11-13] MEDS: MINERAL OIL/PETROLATUM,WHITE 57 GM TUBE TP SCH (09:42)
[2022-11-13] MEDS: KETOCONAZOLE 2% SHAMPOO 120 ML BOTTLE TP SCH (09:42)
[2022-11-13 13:20] VITALS: O2SAT 99
[2022-11-13] MEDS: GLUCERNA 1.2 1000ML LIQUID GT PRN (17:56)
[2022-11-13 19:45] VITALS: TEMP 97.9
[2022-11-13 20:00] VITALS: O2SAT 99
[2022-11-13] MEDS: TRIAMCINOLONE ACET 0.1% OINT 15 GM TUBE TP SCH (21:00)
[2022-11-13] MEDS: ASCORBIC ACID 500 MG TABLET GT SCH (21:00)
[2022-11-14] MEDS: OMEPRAZOLE 20 MG CAPSULE.DR GT SCH (05:10)
[2022-11-14 07:23] VITALS: TEMP 97.7
[2022-11-14] MEDS: ACIDOPHILUS/BULGARICUS CHEW TAB GT SCH ×2 (08:38→20:42)
[2022-11-14] MEDS: BACLOFEN 20 MG TABLET GT SCH ×4 (08:38→20:42)
[2022-11-14] MEDS: METOPROLOL TARTRATE 50 MG TABLET GT SCH ×2 (08:41→21:47)
[2022-11-14] MEDS: SIMETHICONE 80 MG TAB.CHEW GT SCH ×3 (08:45→17:48)
[2022-11-14] MEDS: SERTRALINE HCL 50 MG TABLET GT SCH (08:45)
[2022-11-14] MEDS: MINERAL OIL/PETROLATUM,WHITE 57 GM TUBE TP SCH (08:45)
[2022-11-14] MEDS: CALCIPOTRIENE TOP SCH (08:45)
[2022-11-14] MEDS: REMEDY ESSENTIAL ZINC PASTE 113 GM TOP SCH ×2 (08:45→21:48)
[2022-11-14] MEDS: HYDROGEN PEROXIDE 3% 118 ML BOTTLE TP SCH ×2 (09:00→19:15)
[2022-11-14 10:10] VITALS: O2SAT 97
[2022-11-14 16:00] VITALS: O2SAT 97
[2022-11-14 19:15] VITALS: O2SAT 99
[2022-11-14 20:00] VITALS: TEMP 97.9
[2022-11-14] MEDS: ASCORBIC ACID 500 MG TABLET GT SCH (20:42)
[2022-11-14] MEDS: MULTIVIT, IRON, MIN NO. 8, FA TABLET GT SCH (20:42)
[2022-11-15] MEDS: OMEPRAZOLE 20 MG CAPSULE.DR GT SCH (05:04)
[2022-11-15] MEDS: GLUCERNA 1.2 1000ML LIQUID GT PRN (05:04)
[2022-11-15 08:00] VITALS: TEMP 98.6
[2022-11-15] MEDS: HYDROGEN PEROXIDE 3% 118 ML BOTTLE TP SCH ×2 (08:24→19:04)
[2022-11-15] MEDS: BACLOFEN 20 MG TABLET GT SCH ×4 (08:35→20:38)
[2022-11-15] MEDS: ACIDOPHILUS/BULGARICUS CHEW TAB GT SCH ×2 (08:35→20:38)
[2022-11-15] MEDS: REMEDY ESSENTIAL ZINC PASTE 113 GM TOP SCH ×2 (08:36→20:38)
[2022-11-15] MEDS: SIMETHICONE 80 MG TAB.CHEW GT SCH ×3 (08:36→17:16)
[2022-11-15] MEDS: SERTRALINE HCL 50 MG TABLET GT SCH (08:36)
[2022-11-15] MEDS: METOPROLOL TARTRATE 50 MG TABLET GT SCH ×2 (08:36→20:39)
[2022-11-15] MEDS: CALCIPOTRIENE TOP SCH (08:36)
[2022-11-15] MEDS: MINERAL OIL/PETROLATUM,WHITE 57 GM TUBE TP SCH (08:37)
[2022-11-15 13:15] VITALS: O2SAT 99
[2022-11-15 20:00] VITALS: TEMP 97.9
[2022-11-15] MEDS: ASCORBIC ACID 500 MG TABLET GT SCH (20:38)
[2022-11-15 21:40] VITALS: O2SAT 99
[2022-11-16] MEDS: OMEPRAZOLE 20 MG CAPSULE.DR GT SCH (06:24)
[2022-11-16 07:55] VITALS: O2SAT 97
[2022-11-16] MEDS: HYDROGEN PEROXIDE 3% 118 ML BOTTLE TP SCH ×2 (09:00→19:18)
[2022-11-16] MEDS: CALCIPOTRIENE TOP SCH (09:05)
[2022-11-16] MEDS: BACLOFEN 20 MG TABLET GT SCH ×4 (09:05→20:34)
[2022-11-16] MEDS: MINERAL OIL/PETROLATUM,WHITE 57 GM TUBE TP SCH (09:05)
[2022-11-16] MEDS: METOPROLOL TARTRATE 50 MG TABLET GT SCH ×2 (09:05→20:35)
[2022-11-16] MEDS: SERTRALINE HCL 50 MG TABLET GT SCH (09:05)
[2022-11-16] MEDS: KETOCONAZOLE 2% SHAMPOO 120 ML BOTTLE TP SCH (09:05)
[2022-11-16] MEDS: SIMETHICONE 80 MG TAB.CHEW GT SCH ×3 (09:05→17:31)
[2022-11-16] MEDS: ACIDOPHILUS/BULGARICUS CHEW TAB GT SCH ×2 (09:05→20:34)
[2022-11-16] MEDS: REMEDY ESSENTIAL ZINC PASTE 113 GM TOP SCH ×2 (09:05→20:36)
[2022-11-16 14:23] VITALS: O2SAT 97
[2022-11-16] MEDS: GLUCERNA 1.2 1000ML LIQUID GT PRN (18:30)
[2022-11-16 19:42] VITALS: TEMP 97.9
[2022-11-16] MEDS: MULTIVIT, IRON, MIN NO. 8, FA TABLET GT SCH (20:35)
[2022-11-16] MEDS: ASCORBIC ACID 500 MG TABLET GT SCH (20:36)
[2022-11-16] MEDS: TRIAMCINOLONE ACET 0.1% OINT 15 GM TUBE TP SCH (20:36)
[2022-11-17] MEDS: OMEPRAZOLE 20 MG CAPSULE.DR GT SCH (05:21)
[2022-11-17 07:17] VITALS: TEMP 97.8
[2022-11-17] MEDS: HYDROGEN PEROXIDE 3% 118 ML BOTTLE TP SCH ×2 (07:31→19:00)
[2022-11-17] MEDS: ACIDOPHILUS/BULGARICUS CHEW TAB GT SCH ×2 (09:13→21:00)
[2022-11-17] MEDS: SERTRALINE HCL 50 MG TABLET GT SCH (09:14)
[2022-11-17] MEDS: METOPROLOL TARTRATE 50 MG TABLET GT SCH ×2 (09:14→21:00)
[2022-11-17] MEDS: BACLOFEN 20 MG TABLET GT SCH ×4 (09:14→21:00)
[2022-11-17] MEDS: CALCIPOTRIENE TOP SCH (09:14)
[2022-11-17] MEDS: REMEDY ESSENTIAL ZINC PASTE 113 GM TOP SCH ×2 (09:14→21:00)
[2022-11-17] MEDS: SIMETHICONE 80 MG TAB.CHEW GT SCH ×3 (09:14→17:00)
[2022-11-17] MEDS: MINERAL OIL/PETROLATUM,WHITE 57 GM TUBE TP SCH (09:14)
[2022-11-17 10:30] VITALS: O2SAT 97
[2022-11-17 19:07] VITALS: O2SAT 99
[2022-11-17 19:59] VITALS: O2SAT 99
[2022-11-17 20:00] VITALS: TEMP 98
[2022-11-17] MEDS: ASCORBIC ACID 500 MG TABLET GT SCH (21:00)
[2022-11-17] MEDS: GLUCERNA 1.2 1000ML LIQUID GT PRN (22:41)
[2022-11-18] MEDS: OMEPRAZOLE 20 MG CAPSULE.DR GT SCH (05:14)
[2022-11-18] MEDS: HYDROGEN PEROXIDE 3% 118 ML BOTTLE TP SCH ×2 (07:28→19:06)
[2022-11-18 08:15] VITALS: O2SAT 98
[2022-11-18] MEDS: ACIDOPHILUS/BULGARICUS CHEW TAB GT SCH ×2 (08:22→20:25)
[2022-11-18] MEDS: SIMETHICONE 80 MG TAB.CHEW GT SCH ×3 (08:24→16:36)
[2022-11-18] MEDS: BACLOFEN 20 MG TABLET GT SCH ×4 (08:24→20:25)
[2022-11-18] MEDS: SERTRALINE HCL 50 MG TABLET GT SCH (08:24)
[2022-11-18] MEDS: METOPROLOL TARTRATE 50 MG TABLET GT SCH ×2 (08:24→20:25)
[2022-11-18] MEDS: REMEDY ESSENTIAL ZINC PASTE 113 GM TOP SCH ×2 (08:24→20:26)
[2022-11-18] MEDS: CALCIPOTRIENE TOP SCH (08:24)
[2022-11-18] MEDS: MINERAL OIL/PETROLATUM,WHITE 57 GM TUBE TP SCH (08:25)
[2022-11-18 11:50] VITALS: TEMP 97.6
[2022-11-18 20:00] VITALS: TEMP 98
[2022-11-18] MEDS: ASCORBIC ACID 500 MG TABLET GT SCH (20:26)
[2022-11-18] MEDS: MULTIVIT, IRON, MIN NO. 8, FA TABLET GT SCH (20:26)
[2022-11-18 21:00] VITALS: O2SAT 99
[2022-11-19] MEDS: GLUCERNA 1.2 1000ML LIQUID GT PRN (01:13)
[2022-11-19] MEDS: OMEPRAZOLE 20 MG CAPSULE.DR GT SCH (05:16)
[2022-11-19 07:51] VITALS: TEMP 98.5
[2022-11-19] MEDS: HYDROGEN PEROXIDE 3% 118 ML BOTTLE TP SCH ×2 (09:51→19:12)
[2022-11-19 09:52] VITALS: O2SAT 97
[2022-11-19] MEDS: BACLOFEN 20 MG TABLET GT SCH ×4 (09:54→21:00)
[2022-11-19] MEDS: ACIDOPHILUS/BULGARICUS CHEW TAB GT SCH ×2 (09:54→21:00)
[2022-11-19] MEDS: SIMETHICONE 80 MG TAB.CHEW GT SCH ×3 (09:56→16:48)
[2022-11-19] MEDS: METOPROLOL TARTRATE 50 MG TABLET GT SCH ×2 (09:56→21:00)
[2022-11-19] MEDS: SERTRALINE HCL 50 MG TABLET GT SCH (09:56)
[2022-11-19] MEDS: MINERAL OIL/PETROLATUM,WHITE 57 GM TUBE TP SCH (09:57)
[2022-11-19] MEDS: CALCIPOTRIENE TOP SCH (09:57)
[2022-11-19] MEDS: REMEDY ESSENTIAL ZINC PASTE 113 GM TOP SCH ×2 (09:57→21:00)
[2022-11-19 19:07] VITALS: O2SAT 99
[2022-11-19 20:00] VITALS: TEMP 98.2
[2022-11-19] MEDS: ASCORBIC ACID 500 MG TABLET GT SCH (21:00)
[2022-11-20] MEDS: GLUCERNA 1.2 1000ML LIQUID GT PRN (05:21)
[2022-11-20] MEDS: OMEPRAZOLE 20 MG CAPSULE.DR GT SCH (05:21)
[2022-11-20 07:17] VITALS: TEMP 97.4
[2022-11-20] MEDS: HYDROGEN PEROXIDE 3% 118 ML BOTTLE TP SCH ×2 (08:05→21:00)
[2022-11-20] MEDS: BACLOFEN 20 MG TABLET GT SCH ×4 (09:42→20:52)
[2022-11-20] MEDS: ACIDOPHILUS/BULGARICUS CHEW TAB GT SCH ×2 (09:42→20:52)
[2022-11-20] MEDS: METOPROLOL TARTRATE 50 MG TABLET GT SCH ×2 (09:43→20:52)
[2022-11-20] MEDS: SIMETHICONE 80 MG TAB.CHEW GT SCH ×3 (09:43→16:20)
[2022-11-20] MEDS: SERTRALINE HCL 50 MG TABLET GT SCH (09:44)
[2022-11-20] MEDS: CALCIPOTRIENE TOP SCH (09:45)
[2022-11-20] MEDS: MINERAL OIL/PETROLATUM,WHITE 57 GM TUBE TP SCH (09:46)
[2022-11-20] MEDS: REMEDY ESSENTIAL ZINC PASTE 113 GM TOP SCH ×2 (09:46→20:53)
[2022-11-20] MEDS: KETOCONAZOLE 2% SHAMPOO 120 ML BOTTLE TP SCH (09:48)
[2022-11-20 15:57] VITALS: O2SAT 99
[2022-11-20 20:00] VITALS: TEMP 97.9
[2022-11-20 20:15] VITALS: O2SAT 99
[2022-11-20] MEDS: MULTIVIT, IRON, MIN NO. 8, FA TABLET GT SCH (20:52)
[2022-11-20] MEDS: ASCORBIC ACID 500 MG TABLET GT SCH (20:52)
[2022-11-20] MEDS: TRIAMCINOLONE ACET 0.1% OINT 15 GM TUBE TP SCH (20:53)
[2022-11-21] MEDS: OMEPRAZOLE 20 MG CAPSULE.DR GT SCH (05:15)
[2022-11-21 07:22] VITALS: TEMP 97.9
[2022-11-21] MEDS: HYDROGEN PEROXIDE 3% 118 ML BOTTLE TP SCH ×2 (08:06→19:00)
[2022-11-21] MEDS: ACIDOPHILUS/BULGARICUS CHEW TAB GT SCH ×2 (09:20→20:39)
[2022-11-21] MEDS: BACLOFEN 20 MG TABLET GT SCH ×4 (09:20→20:39)
[2022-11-21] MEDS: SERTRALINE HCL 50 MG TABLET GT SCH (09:21)
[2022-11-21] MEDS: MINERAL OIL/PETROLATUM,WHITE 57 GM TUBE TP SCH (09:21)
[2022-11-21] MEDS: METOPROLOL TARTRATE 50 MG TABLET GT SCH ×2 (09:21→20:40)
[2022-11-21] MEDS: SIMETHICONE 80 MG TAB.CHEW GT SCH ×3 (09:21→17:12)
[2022-11-21] MEDS: CALCIPOTRIENE TOP SCH (09:21)
[2022-11-21] MEDS: REMEDY ESSENTIAL ZINC PASTE 113 GM TOP SCH ×2 (09:21→20:40)
[2022-11-21 09:46] VITALS: O2SAT 99
[2022-11-21] MEDS: GLUCERNA 1.2 1000ML LIQUID GT PRN (11:11)
[2022-11-21 20:00] VITALS: TEMP 97.9
[2022-11-21] MEDS: ASCORBIC ACID 500 MG TABLET GT SCH (20:40)
[2022-11-21 20:50] VITALS: O2SAT 99
[2022-11-22] MEDS: OMEPRAZOLE 20 MG CAPSULE.DR GT SCH (05:04)
[2022-11-22 07:29] VITALS: TEMP 97.6
[2022-11-22] MEDS: HYDROGEN PEROXIDE 3% 118 ML BOTTLE TP SCH ×3 (08:07→21:25)
[2022-11-22] MEDS: BACLOFEN 20 MG TABLET GT SCH ×4 (08:57→20:53)
[2022-11-22] MEDS: SIMETHICONE 80 MG TAB.CHEW GT SCH ×3 (08:57→17:59)
[2022-11-22] MEDS: ACIDOPHILUS/BULGARICUS CHEW TAB GT SCH ×2 (08:57→20:53)
[2022-11-22] MEDS: METOPROLOL TARTRATE 50 MG TABLET GT SCH ×2 (08:58→20:53)
[2022-11-22] MEDS: SERTRALINE HCL 50 MG TABLET GT SCH (08:58)
[2022-11-22] MEDS: REMEDY ESSENTIAL ZINC PASTE 113 GM TOP SCH ×2 (08:59→20:53)
[2022-11-22] MEDS: MINERAL OIL/PETROLATUM,WHITE 57 GM TUBE TP SCH (08:59)
[2022-11-22] MEDS: CALCIPOTRIENE TOP SCH (09:00)
[2022-11-22 09:15] VITALS: O2SAT 99
[2022-11-22 20:00] VITALS: TEMP 98
[2022-11-22 20:10] VITALS: O2SAT 97
[2022-11-22] MEDS: MULTIVIT, IRON, MIN NO. 8, FA TABLET GT SCH (20:53)
[2022-11-22] MEDS: ASCORBIC ACID 500 MG TABLET GT SCH (20:53)
[2022-11-23] MEDS: OMEPRAZOLE 20 MG CAPSULE.DR GT SCH (05:19)
[2022-11-23 07:46] VITALS: O2SAT 97
[2022-11-23] MEDS: HYDROGEN PEROXIDE 3% 118 ML BOTTLE TP SCH ×2 (07:46→21:29)
[2022-11-23 07:49] VITALS: TEMP 98.3
[2022-11-23] MEDS: KETOCONAZOLE 2% SHAMPOO 120 ML BOTTLE TP SCH (09:00)
[2022-11-23] MEDS: MINERAL OIL/PETROLATUM,WHITE 57 GM TUBE TP SCH (09:00)
[2022-11-23] MEDS: ACIDOPHILUS/BULGARICUS CHEW TAB GT SCH ×2 (09:01→20:03)
[2022-11-23] MEDS: BACLOFEN 20 MG TABLET GT SCH ×4 (09:01→20:03)
[2022-11-23] MEDS: REMEDY ESSENTIAL ZINC PASTE 113 GM TOP SCH ×2 (09:04→20:03)
[2022-11-23] MEDS: SERTRALINE HCL 50 MG TABLET GT SCH (09:04)
[2022-11-23] MEDS: SIMETHICONE 80 MG TAB.CHEW GT SCH ×3 (09:04→17:24)
[2022-11-23] MEDS: CALCIPOTRIENE TOP SCH (09:04)
[2022-11-23] MEDS: METOPROLOL TARTRATE 50 MG TABLET GT SCH ×2 (09:04→20:03)
[2022-11-23] MEDS: GLUCERNA 1.2 1000ML LIQUID GT PRN (18:52)
[2022-11-23 19:45] VITALS: O2SAT 98
[2022-11-23 19:53] VITALS: TEMP 98.1
[2022-11-23] MEDS: ASCORBIC ACID 500 MG TABLET GT SCH (20:03)
[2022-11-23] MEDS: TRIAMCINOLONE ACET 0.1% OINT 15 GM TUBE TP SCH (20:03)
[2022-11-24] MEDS: OMEPRAZOLE 20 MG CAPSULE.DR GT SCH (05:10)
[2022-11-24] MEDS: HYDROGEN PEROXIDE 3% 118 ML BOTTLE TP SCH ×2 (07:37→19:38)
[2022-11-24 07:44] VITALS: TEMP 98.2
[2022-11-24] MEDS: SERTRALINE HCL 50 MG TABLET GT SCH (09:07)
[2022-11-24] MEDS: CALCIPOTRIENE TOP SCH (09:07)
[2022-11-24] MEDS: ACIDOPHILUS/BULGARICUS CHEW TAB GT SCH ×2 (09:07→21:55)
[2022-11-24] MEDS: SIMETHICONE 80 MG TAB.CHEW GT SCH ×3 (09:07→17:36)
[2022-11-24] MEDS: MINERAL OIL/PETROLATUM,WHITE 57 GM TUBE TP SCH (09:07)
[2022-11-24] MEDS: METOPROLOL TARTRATE 50 MG TABLET GT SCH ×2 (09:07→21:56)
[2022-11-24] MEDS: REMEDY ESSENTIAL ZINC PASTE 113 GM TOP SCH ×2 (09:07→21:58)
[2022-11-24] MEDS: BACLOFEN 20 MG TABLET GT SCH ×4 (09:07→21:56)
[2022-11-24 10:20] VITALS: O2SAT 97
[2022-11-24 20:00] VITALS: TEMP 97.9
[2022-11-24] MEDS: ACETAMINOPHEN 650 MG/20 ML UDC- SA PATIENTS-PAIN ONLY GT PRN (21:00)
[2022-11-24] MEDS: ASCORBIC ACID 500 MG TABLET GT SCH (21:58)
[2022-11-24] MEDS: MULTIVIT, IRON, MIN NO. 8, FA TABLET GT SCH (21:58)
[2022-11-24 22:23] VITALS: O2SAT 99
[2022-11-25] MEDS: GLUCERNA 1.2 1000ML LIQUID GT PRN (05:00)
[2022-11-25] MEDS: OMEPRAZOLE 20 MG CAPSULE.DR GT SCH (05:06)
[2022-11-25 07:36] VITALS: TEMP 97.6
[2022-11-25] MEDS: HYDROGEN PEROXIDE 3% 118 ML BOTTLE TP SCH ×2 (08:11→19:15)
[2022-11-25] MEDS: SERTRALINE HCL 50 MG TABLET GT SCH (08:33)
[2022-11-25] MEDS: METOPROLOL TARTRATE 50 MG TABLET GT SCH ×2 (08:33→21:00)
[2022-11-25] MEDS: ACIDOPHILUS/BULGARICUS CHEW TAB GT SCH ×2 (08:33→20:56)
[2022-11-25] MEDS: CALCIPOTRIENE TOP SCH (08:33)
[2022-11-25] MEDS: SIMETHICONE 80 MG TAB.CHEW GT SCH ×3 (08:33→18:00)
[2022-11-25] MEDS: REMEDY ESSENTIAL ZINC PASTE 113 GM TOP SCH ×2 (08:33→20:57)
[2022-11-25] MEDS: BACLOFEN 20 MG TABLET GT SCH ×4 (08:33→20:56)
[2022-11-25] MEDS: MINERAL OIL/PETROLATUM,WHITE 57 GM TUBE TP SCH (08:33)
[2022-11-25 12:33] VITALS: O2SAT 99
[2022-11-25 20:00] VITALS: TEMP 98.1
[2022-11-25] MEDS: ASCORBIC ACID 500 MG TABLET GT SCH (20:56)
[2022-11-25] MEDS: ACETAMINOPHEN 650 MG/20 ML UDC- SA PATIENTS-PAIN ONLY GT PRN (20:59)
[2022-11-25 22:10] VITALS: O2SAT 99
[2022-11-26] MEDS: GLUCERNA 1.2 1000ML LIQUID GT PRN (05:00)
[2022-11-26] MEDS: OMEPRAZOLE 20 MG CAPSULE.DR GT SCH (05:08)
[2022-11-26 07:22] VITALS: TEMP 98.2
[2022-11-26] MEDS: ACIDOPHILUS/BULGARICUS CHEW TAB GT SCH ×2 (08:09→20:57)
[2022-11-26] MEDS: METOPROLOL TARTRATE 50 MG TABLET GT SCH ×2 (08:09→20:59)
[2022-11-26] MEDS: BACLOFEN 20 MG TABLET GT SCH ×4 (08:09→20:57)
[2022-11-26] MEDS: SIMETHICONE 80 MG TAB.CHEW GT SCH ×3 (08:09→16:07)
[2022-11-26] MEDS: CALCIPOTRIENE TOP SCH (08:10)
[2022-11-26] MEDS: SERTRALINE HCL 50 MG TABLET GT SCH (08:10)
[2022-11-26] MEDS: REMEDY ESSENTIAL ZINC PASTE 113 GM TOP SCH ×2 (08:10→20:59)
[2022-11-26] MEDS: MINERAL OIL/PETROLATUM,WHITE 57 GM TUBE TP SCH (08:10)
[2022-11-26] MEDS: HYDROGEN PEROXIDE 3% 118 ML BOTTLE TP SCH ×2 (08:31→19:40)
[2022-11-26 12:30] VITALS: O2SAT 99
[2022-11-26 19:38] VITALS: TEMP 98
[2022-11-26] MEDS: ASCORBIC ACID 500 MG TABLET GT SCH (20:59)
[2022-11-26] MEDS: COD LIVER OIL/ZINC OXIDE OINT 113 GM TUBE TP SCH (20:59)
[2022-11-26] MEDS: MULTIVIT, IRON, MIN NO. 8, FA TABLET GT SCH (20:59)
[2022-11-26 21:10] VITALS: O2SAT 99
[2022-11-27] MEDS: OMEPRAZOLE 20 MG CAPSULE.DR GT SCH (06:23)
[2022-11-27] MEDS: GLUCERNA 1.2 1000ML LIQUID GT PRN (06:32)
[2022-11-27] MEDS: HYDROGEN PEROXIDE 3% 118 ML BOTTLE TP SCH ×2 (07:17→20:48)
[2022-11-27 07:18] VITALS: TEMP 98.3
[2022-11-27] MEDS: BACLOFEN 20 MG TABLET GT SCH ×4 (08:11→21:12)
[2022-11-27] MEDS: ACIDOPHILUS/BULGARICUS CHEW TAB GT SCH ×2 (08:11→21:12)
[2022-11-27] MEDS: METOPROLOL TARTRATE 50 MG TABLET GT SCH ×2 (08:12→21:13)
[2022-11-27] MEDS: CALCIPOTRIENE TOP SCH (08:14)
[2022-11-27] MEDS: SERTRALINE HCL 50 MG TABLET GT SCH (08:14)
[2022-11-27] MEDS: COD LIVER OIL/ZINC OXIDE OINT 113 GM TUBE TP SCH ×2 (08:14→21:12)
[2022-11-27] MEDS: REMEDY ESSENTIAL ZINC PASTE 113 GM TOP SCH ×2 (08:14→21:12)
[2022-11-27] MEDS: SIMETHICONE 80 MG TAB.CHEW GT SCH ×3 (08:14→17:00)
[2022-11-27] MEDS: KETOCONAZOLE 2% SHAMPOO 120 ML BOTTLE TP SCH (08:15)
[2022-11-27] MEDS: MINERAL OIL/PETROLATUM,WHITE 57 GM TUBE TP SCH (08:15)
[2022-11-27 10:55] VITALS: O2SAT 98
[2022-11-27 19:07] VITALS: O2SAT 99
[2022-11-27 20:26] VITALS: TEMP 98.2
[2022-11-27] MEDS: TRIAMCINOLONE ACET 0.1% OINT 15 GM TUBE TP SCH (21:12)
[2022-11-27] MEDS: ASCORBIC ACID 500 MG TABLET GT SCH (21:12)
[2022-11-28] MEDS: OMEPRAZOLE 20 MG CAPSULE.DR GT SCH (05:07)
[2022-11-28 07:19] VITALS: TEMP 97.3
[2022-11-28 07:25] VITALS: O2SAT 97
[2022-11-28] MEDS: HYDROGEN PEROXIDE 3% 118 ML BOTTLE TP SCH ×2 (07:25→19:02)
[2022-11-28] MEDS: BACLOFEN 20 MG TABLET GT SCH ×4 (08:14→20:28)
[2022-11-28] MEDS: ACIDOPHILUS/BULGARICUS CHEW TAB GT SCH ×2 (08:14→20:28)
[2022-11-28] MEDS: SERTRALINE HCL 50 MG TABLET GT SCH (08:14)
[2022-11-28] MEDS: CALCIPOTRIENE TOP SCH (08:14)
[2022-11-28] MEDS: SIMETHICONE 80 MG TAB.CHEW GT SCH ×3 (08:14→16:17)
[2022-11-28] MEDS: METOPROLOL TARTRATE 50 MG TABLET GT SCH ×2 (08:14→20:29)
[2022-11-28] MEDS: MINERAL OIL/PETROLATUM,WHITE 57 GM TUBE TP SCH (08:15)
[2022-11-28] MEDS: COD LIVER OIL/ZINC OXIDE OINT 113 GM TUBE TP SCH ×2 (08:15→20:29)
[2022-11-28] MEDS: REMEDY ESSENTIAL ZINC PASTE 113 GM TOP SCH ×2 (08:15→20:29)
[2022-11-28] MEDS: GLUCERNA 1.2 1000ML LIQUID GT PRN (10:06)
[2022-11-28 19:08] VITALS: O2SAT 99
[2022-11-28 20:11] VITALS: TEMP 97.8
[2022-11-28] MEDS: ASCORBIC ACID 500 MG TABLET GT SCH (20:29)
[2022-11-28] MEDS: MULTIVIT, IRON, MIN NO. 8, FA TABLET GT SCH (20:29)
[2022-11-29] MEDS: OMEPRAZOLE 20 MG CAPSULE.DR GT SCH (05:20)
[2022-11-29 08:00] VITALS: TEMP 98.5
[2022-11-29] MEDS: HYDROGEN PEROXIDE 3% 118 ML BOTTLE TP SCH ×2 (08:31→18:52)
[2022-11-29] MEDS: ACIDOPHILUS/BULGARICUS CHEW TAB GT SCH ×2 (09:19→20:19)
[2022-11-29] MEDS: BACLOFEN 20 MG TABLET GT SCH ×4 (09:19→20:19)
[2022-11-29] MEDS: SERTRALINE HCL 50 MG TABLET GT SCH (09:22)
[2022-11-29] MEDS: REMEDY ESSENTIAL ZINC PASTE 113 GM TOP SCH ×2 (09:22→20:19)
[2022-11-29] MEDS: METOPROLOL TARTRATE 50 MG TABLET GT SCH ×2 (09:22→20:41)
[2022-11-29] MEDS: MINERAL OIL/PETROLATUM,WHITE 57 GM TUBE TP SCH (09:22)
[2022-11-29] MEDS: SIMETHICONE 80 MG TAB.CHEW GT SCH ×3 (09:22→17:06)
[2022-11-29] MEDS: COD LIVER OIL/ZINC OXIDE OINT 113 GM TUBE TP SCH ×2 (09:22→20:19)
[2022-11-29] MEDS: CALCIPOTRIENE TOP SCH (09:22)
[2022-11-29 10:00] VITALS: O2SAT 97
[2022-11-29] MEDS: GLUCERNA 1.2 1000ML LIQUID GT PRN (11:11)
[2022-11-29 20:00] VITALS: O2SAT 99
[2022-11-29] MEDS: ASCORBIC ACID 500 MG TABLET GT SCH (20:19)
[2022-11-29 20:30] VITALS: TEMP 98.3
[2022-11-30] MEDS: OMEPRAZOLE 20 MG CAPSULE.DR GT SCH (06:00)
[2022-11-30 08:00] VITALS: TEMP 97.6
[2022-11-30 08:08] VITALS: O2SAT 98
[2022-11-30] MEDS: METOPROLOL TARTRATE 50 MG TABLET GT SCH ×2 (08:21→21:51)
[2022-11-30] MEDS: BACLOFEN 20 MG TABLET GT SCH ×4 (08:21→20:08)
[2022-11-30] MEDS: ACIDOPHILUS/BULGARICUS CHEW TAB GT SCH ×2 (08:21→20:08)
[2022-11-30] MEDS: CALCIPOTRIENE TOP SCH ×3 (08:22→16:49)
[2022-11-30] MEDS: SERTRALINE HCL 50 MG TABLET GT SCH (08:22)
[2022-11-30] MEDS: SIMETHICONE 80 MG TAB.CHEW GT SCH ×3 (08:22→16:49)
[2022-11-30] MEDS: MINERAL OIL/PETROLATUM,WHITE 57 GM TUBE TP SCH (08:22)
[2022-11-30] MEDS: REMEDY ESSENTIAL ZINC PASTE 113 GM TOP SCH ×2 (08:22→20:09)
[2022-11-30] MEDS: KETOCONAZOLE 2% SHAMPOO 120 ML BOTTLE TP SCH (08:22)
[2022-11-30] MEDS: COD LIVER OIL/ZINC OXIDE OINT 113 GM TUBE TP SCH ×2 (08:22→20:09)
[2022-11-30] MEDS: HYDROGEN PEROXIDE 3% 118 ML BOTTLE TP SCH ×2 (09:00→19:02)
[2022-11-30] MEDS: GLUCERNA 1.2 1000ML LIQUID GT PRN (11:06)
[2022-11-30 19:45] VITALS: O2SAT 99
[2022-11-30 20:00] VITALS: TEMP 97.6
[2022-11-30] MEDS: TRIAMCINOLONE ACET 0.1% OINT 15 GM TUBE TP SCH (20:09)
[2022-11-30] MEDS: ASCORBIC ACID 500 MG TABLET GT SCH (20:09)
[2022-11-30] MEDS: MULTIVIT, IRON, MIN NO. 8, FA TABLET GT SCH (20:09)
[2022-12-01] MEDS: OMEPRAZOLE 20 MG CAPSULE.DR GT SCH (05:02)
[2022-12-01] MEDS: HYDROGEN PEROXIDE 3% 118 ML BOTTLE TP SCH ×2 (07:19→19:06)
[2022-12-01 08:00] VITALS: TEMP 98.5
[2022-12-01] MEDS: ACIDOPHILUS/BULGARICUS CHEW TAB GT SCH ×2 (08:44→21:23)
[2022-12-01] MEDS: BACLOFEN 20 MG TABLET GT SCH ×4 (08:44→21:23)
[2022-12-01] MEDS: SERTRALINE HCL 50 MG TABLET GT SCH (08:45)
[2022-12-01] MEDS: COD LIVER OIL/ZINC OXIDE OINT 113 GM TUBE TP SCH ×2 (08:45→21:25)
[2022-12-01] MEDS: MINERAL OIL/PETROLATUM,WHITE 57 GM TUBE TP SCH (08:45)
[2022-12-01] MEDS: CALCIPOTRIENE TOP SCH ×2 (08:45→18:00)
[2022-12-01] MEDS: REMEDY ESSENTIAL ZINC PASTE 113 GM TOP SCH ×2 (08:45→21:25)
[2022-12-01] MEDS: METOPROLOL TARTRATE 50 MG TABLET GT SCH ×2 (08:45→21:24)
[2022-12-01] MEDS: SIMETHICONE 80 MG TAB.CHEW GT SCH ×3 (08:45→18:00)
[2022-12-01 10:20] VITALS: O2SAT 98
[2022-12-01] MEDS: GLUCERNA 1.2 1000ML LIQUID GT PRN (12:18)
[2022-12-01 19:08] VITALS: O2SAT 99
[2022-12-01 20:00] VITALS: TEMP 97.8
[2022-12-01] MEDS: ASCORBIC ACID 500 MG TABLET GT SCH (21:24)
[2022-12-02] MEDS: OMEPRAZOLE 20 MG CAPSULE.DR GT SCH (05:36)
[2022-12-02 07:29] VITALS: TEMP 97.3
[2022-12-02] MEDS: HYDROGEN PEROXIDE 3% 118 ML BOTTLE TP SCH ×2 (09:00→19:02)
[2022-12-02] MEDS: METOPROLOL TARTRATE 50 MG TABLET GT SCH ×2 (09:26→21:00)
[2022-12-02] MEDS: REMEDY ESSENTIAL ZINC PASTE 113 GM TOP SCH ×2 (09:26→21:00)
[2022-12-02] MEDS: ACIDOPHILUS/BULGARICUS CHEW TAB GT SCH ×2 (09:26→21:00)
[2022-12-02] MEDS: SERTRALINE HCL 50 MG TABLET GT SCH (09:26)
[2022-12-02] MEDS: COD LIVER OIL/ZINC OXIDE OINT 113 GM TUBE TP SCH ×2 (09:26→21:00)
[2022-12-02] MEDS: BACLOFEN 20 MG TABLET GT SCH ×4 (09:26→21:00)
[2022-12-02] MEDS: CALCIPOTRIENE TOP SCH ×2 (09:26→17:17)
[2022-12-02] MEDS: SIMETHICONE 80 MG TAB.CHEW GT SCH ×3 (09:26→17:15)
[2022-12-02] MEDS: MINERAL OIL/PETROLATUM,WHITE 57 GM TUBE TP SCH (09:27)
[2022-12-02 10:50] VITALS: O2SAT 99
[2022-12-02] MEDS: GLUCERNA 1.2 1000ML LIQUID GT PRN (13:19)
[2022-12-02 20:00] VITALS: TEMP 98.5
[2022-12-02 20:35] VITALS: O2SAT 99
[2022-12-02] MEDS: MULTIVIT, IRON, MIN NO. 8, FA TABLET GT SCH (21:00)
[2022-12-02] MEDS: ASCORBIC ACID 500 MG TABLET GT SCH (21:00)
[2022-12-03] MEDS: OMEPRAZOLE 20 MG CAPSULE.DR GT SCH (05:53)
[2022-12-03 07:14] VITALS: TEMP 98.3
[2022-12-03] MEDS: ACIDOPHILUS/BULGARICUS CHEW TAB GT SCH ×2 (08:38→20:47)
[2022-12-03] MEDS: BACLOFEN 20 MG TABLET GT SCH ×4 (08:38→20:47)
[2022-12-03] MEDS: SIMETHICONE 80 MG TAB.CHEW GT SCH ×3 (08:39→17:10)
[2022-12-03] MEDS: SERTRALINE HCL 50 MG TABLET GT SCH (08:39)
[2022-12-03] MEDS: METOPROLOL TARTRATE 50 MG TABLET GT SCH ×2 (08:39→20:48)
[2022-12-03] MEDS: COD LIVER OIL/ZINC OXIDE OINT 113 GM TUBE TP SCH ×2 (08:40→20:48)
[2022-12-03] MEDS: REMEDY ESSENTIAL ZINC PASTE 113 GM TOP SCH ×2 (08:40→20:48)
[2022-12-03] MEDS: CALCIPOTRIENE TOP SCH ×2 (08:40→17:10)
[2022-12-03] MEDS: MINERAL OIL/PETROLATUM,WHITE 57 GM TUBE TP SCH (08:40)
[2022-12-03] MEDS: HYDROGEN PEROXIDE 3% 118 ML BOTTLE TP SCH ×2 (09:21→19:00)
[2022-12-03 10:50] VITALS: O2SAT 99
[2022-12-03 20:00] VITALS: TEMP 98.3
[2022-12-03 20:29] VITALS: O2SAT 99
[2022-12-03] MEDS: GLUCERNA 1.2 1000ML LIQUID GT PRN (20:48)
[2022-12-03] MEDS: ASCORBIC ACID 500 MG TABLET GT SCH (20:48)
[2022-12-04] MEDS: OMEPRAZOLE 20 MG CAPSULE.DR GT SCH (05:00)
[2022-12-04 07:15] VITALS: TEMP 98.7
[2022-12-04] MEDS: HYDROGEN PEROXIDE 3% 118 ML BOTTLE TP SCH ×2 (07:19→21:51)
[2022-12-04] MEDS: BACLOFEN 20 MG TABLET GT SCH ×4 (09:00→20:17)
[2022-12-04] MEDS: SERTRALINE HCL 50 MG TABLET GT SCH (09:00)
[2022-12-04] MEDS: CALCIPOTRIENE TOP SCH ×2 (09:00→16:25)
[2022-12-04] MEDS: COD LIVER OIL/ZINC OXIDE OINT 113 GM TUBE TP SCH ×2 (09:00→20:18)
[2022-12-04] MEDS: ACIDOPHILUS/BULGARICUS CHEW TAB GT SCH ×2 (09:00→20:17)
[2022-12-04] MEDS: METOPROLOL TARTRATE 50 MG TABLET GT SCH ×2 (09:00→21:00)
[2022-12-04] MEDS: KETOCONAZOLE 2% SHAMPOO 120 ML BOTTLE TP SCH (09:00)
[2022-12-04] MEDS: REMEDY ESSENTIAL ZINC PASTE 113 GM TOP SCH ×2 (09:00→20:18)
[2022-12-04] MEDS: SIMETHICONE 80 MG TAB.CHEW GT SCH ×3 (09:00→16:25)
[2022-12-04] MEDS: MINERAL OIL/PETROLATUM,WHITE 57 GM TUBE TP SCH (09:00)
[2022-12-04 10:20] VITALS: O2SAT 99
[2022-12-04 20:00] VITALS: TEMP 98.6
[2022-12-04] MEDS: TRIAMCINOLONE ACET 0.1% OINT 15 GM TUBE TP SCH (20:18)
[2022-12-04] MEDS: ASCORBIC ACID 500 MG TABLET GT SCH (20:18)
[2022-12-04] MEDS: MULTIVIT, IRON, MIN NO. 8, FA TABLET GT SCH (20:18)
[2022-12-04 21:31] VITALS: O2SAT 99
[2022-12-05] MEDS: OMEPRAZOLE 20 MG CAPSULE.DR GT SCH (05:40)
[2022-12-05 07:20] VITALS: TEMP 97.3
[2022-12-05] MEDS: HYDROGEN PEROXIDE 3% 118 ML BOTTLE TP SCH ×2 (07:52→20:44)
[2022-12-05] MEDS: ACIDOPHILUS/BULGARICUS CHEW TAB GT SCH ×2 (08:32→21:30)
[2022-12-05] MEDS: BACLOFEN 20 MG TABLET GT SCH ×4 (08:32→21:30)
[2022-12-05] MEDS: SERTRALINE HCL 50 MG TABLET GT SCH (08:33)
[2022-12-05] MEDS: SIMETHICONE 80 MG TAB.CHEW GT SCH ×3 (08:33→17:18)
[2022-12-05] MEDS: REMEDY ESSENTIAL ZINC PASTE 113 GM TOP SCH ×2 (08:33→21:34)
[2022-12-05] MEDS: CALCIPOTRIENE TOP SCH ×2 (08:33→17:19)
[2022-12-05] MEDS: MINERAL OIL/PETROLATUM,WHITE 57 GM TUBE TP SCH (08:33)
[2022-12-05] MEDS: METOPROLOL TARTRATE 50 MG TABLET GT SCH ×2 (08:33→21:34)
[2022-12-05] MEDS: COD LIVER OIL/ZINC OXIDE OINT 113 GM TUBE TP SCH ×2 (08:33→21:34)
[2022-12-05] MEDS: GLUCERNA 1.2 1000ML LIQUID GT PRN (17:19)
[2022-12-05 20:00] VITALS: TEMP 97.5
[2022-12-05] MEDS: ASCORBIC ACID 500 MG TABLET GT SCH (21:34)
[2022-12-05 22:28] VITALS: O2SAT 99
[2022-12-06] MEDS: OMEPRAZOLE 20 MG CAPSULE.DR GT SCH (05:16)
[2022-12-06 07:21] VITALS: TEMP 97.6
[2022-12-06] MEDS: ACIDOPHILUS/BULGARICUS CHEW TAB GT SCH ×2 (08:37→20:26)
[2022-12-06] MEDS: BACLOFEN 20 MG TABLET GT SCH ×4 (08:37→20:26)
[2022-12-06] MEDS: METOPROLOL TARTRATE 50 MG TABLET GT SCH ×2 (08:38→20:26)
[2022-12-06] MEDS: SERTRALINE HCL 50 MG TABLET GT SCH (08:38)
[2022-12-06] MEDS: SIMETHICONE 80 MG TAB.CHEW GT SCH ×3 (08:38→17:12)
[2022-12-06] MEDS: MINERAL OIL/PETROLATUM,WHITE 57 GM TUBE TP SCH (08:40)
[2022-12-06] MEDS: COD LIVER OIL/ZINC OXIDE OINT 113 GM TUBE TP SCH ×2 (08:40→20:26)
[2022-12-06] MEDS: CALCIPOTRIENE TOP SCH ×2 (08:40→17:12)
[2022-12-06] MEDS: REMEDY ESSENTIAL ZINC PASTE 113 GM TOP SCH ×2 (08:40→20:26)
[2022-12-06 09:00] VITALS: O2SAT 99
[2022-12-06] MEDS: HYDROGEN PEROXIDE 3% 118 ML BOTTLE TP SCH ×2 (09:43→19:10)
[2022-12-06 19:13] VITALS: O2SAT 99
[2022-12-06 20:00] VITALS: TEMP 98.8
[2022-12-06] MEDS: ASCORBIC ACID 500 MG TABLET GT SCH (20:26)
[2022-12-06] MEDS: MULTIVIT, IRON, MIN NO. 8, FA TABLET GT SCH (20:26)
[2022-12-07] MEDS: OMEPRAZOLE 20 MG CAPSULE.DR GT SCH (05:14)
[2022-12-07 08:00] VITALS: TEMP 97.8
[2022-12-07] MEDS: HYDROGEN PEROXIDE 3% 118 ML BOTTLE TP SCH ×2 (09:00→19:20)
[2022-12-07] MEDS: BACLOFEN 20 MG TABLET GT SCH ×4 (09:05→20:45)
[2022-12-07] MEDS: ACIDOPHILUS/BULGARICUS CHEW TAB GT SCH ×2 (09:05→20:45)
[2022-12-07] MEDS: KETOCONAZOLE 2% SHAMPOO 120 ML BOTTLE TP SCH (09:06)
[2022-12-07] MEDS: SERTRALINE HCL 50 MG TABLET GT SCH (09:06)
[2022-12-07] MEDS: SIMETHICONE 80 MG TAB.CHEW GT SCH ×3 (09:06→17:00)
[2022-12-07] MEDS: MINERAL OIL/PETROLATUM,WHITE 57 GM TUBE TP SCH (09:06)
[2022-12-07] MEDS: CALCIPOTRIENE TOP SCH ×2 (09:06→17:00)
[2022-12-07] MEDS: COD LIVER OIL/ZINC OXIDE OINT 113 GM TUBE TP SCH ×2 (09:06→20:46)
[2022-12-07] MEDS: METOPROLOL TARTRATE 50 MG TABLET GT SCH ×2 (09:06→20:46)
[2022-12-07] MEDS: REMEDY ESSENTIAL ZINC PASTE 113 GM TOP SCH ×2 (09:06→20:46)
[2022-12-07 10:25] VITALS: O2SAT 98
[2022-12-07 20:30] VITALS: O2SAT 99
[2022-12-07] MEDS: TRIAMCINOLONE ACET 0.1% OINT 15 GM TUBE TP SCH (20:46)
[2022-12-07] MEDS: ASCORBIC ACID 500 MG TABLET GT SCH (20:46)
[2022-12-07 21:56] VITALS: TEMP 99.8
[2022-12-08] MEDS: OMEPRAZOLE 20 MG CAPSULE.DR GT SCH (05:18)
[2022-12-08 08:00] VITALS: TEMP 97.8; TEMP 98
[2022-12-08] MEDS: ACIDOPHILUS/BULGARICUS CHEW TAB GT SCH ×2 (09:00→21:22)
[2022-12-08] MEDS: COD LIVER OIL/ZINC OXIDE OINT 113 GM TUBE TP SCH ×2 (09:00→21:24)
[2022-12-08] MEDS: BACLOFEN 20 MG TABLET GT SCH ×4 (09:00→21:22)
[2022-12-08] MEDS: REMEDY ESSENTIAL ZINC PASTE 113 GM TOP SCH ×2 (09:00→21:24)
[2022-12-08] MEDS: SERTRALINE HCL 50 MG TABLET GT SCH (09:00)
[2022-12-08] MEDS: METOPROLOL TARTRATE 50 MG TABLET GT SCH ×2 (09:00→21:23)
[2022-12-08] MEDS: MINERAL OIL/PETROLATUM,WHITE 57 GM TUBE TP SCH (09:00)
[2022-12-08] MEDS: HYDROGEN PEROXIDE 3% 118 ML BOTTLE TP SCH ×2 (09:00→19:19)
[2022-12-08] MEDS: SIMETHICONE 80 MG TAB.CHEW GT SCH ×3 (09:00→17:08)
[2022-12-08] MEDS: CALCIPOTRIENE TOP SCH ×2 (09:00→17:08)
[2022-12-08 10:40] VITALS: O2SAT 97
[2022-12-08 19:35] VITALS: O2SAT 99
[2022-12-08 20:00] VITALS: TEMP 99.1
[2022-12-08] MEDS: MULTIVIT, IRON, MIN NO. 8, FA TABLET GT SCH (21:23)
[2022-12-08] MEDS: ASCORBIC ACID 500 MG TABLET GT SCH (21:24)
[2022-12-09] MEDS: OMEPRAZOLE 20 MG CAPSULE.DR GT SCH (05:03)
[2022-12-09 08:20] VITALS: TEMP 98.1
[2022-12-09 08:40] VITALS: O2SAT 99
[2022-12-09] MEDS: HYDROGEN PEROXIDE 3% 118 ML BOTTLE TP SCH ×2 (08:40→19:08)
[2022-12-09] MEDS: BACLOFEN 20 MG TABLET GT SCH ×4 (09:31→20:15)
[2022-12-09] MEDS: ACIDOPHILUS/BULGARICUS CHEW TAB GT SCH ×2 (09:31→20:15)
[2022-12-09] MEDS: SIMETHICONE 80 MG TAB.CHEW GT SCH ×3 (09:33→17:36)
[2022-12-09] MEDS: METOPROLOL TARTRATE 50 MG TABLET GT SCH ×2 (09:33→20:53)
[2022-12-09] MEDS: COD LIVER OIL/ZINC OXIDE OINT 113 GM TUBE TP SCH ×2 (09:34→20:16)
[2022-12-09] MEDS: REMEDY ESSENTIAL ZINC PASTE 113 GM TOP SCH ×2 (09:34→20:16)
[2022-12-09] MEDS: CALCIPOTRIENE TOP SCH ×2 (09:34→17:37)
[2022-12-09] MEDS: SERTRALINE HCL 50 MG TABLET GT SCH (09:34)
[2022-12-09] MEDS: MINERAL OIL/PETROLATUM,WHITE 57 GM TUBE TP SCH (09:34)
[2022-12-09 20:00] VITALS: TEMP 98.4
[2022-12-09] MEDS: ASCORBIC ACID 500 MG TABLET GT SCH (20:15)
[2022-12-09 21:21] VITALS: TEMP 98.4
[2022-12-09 22:34] VITALS: O2SAT 99
[2022-12-10] MEDS: OMEPRAZOLE 20 MG CAPSULE.DR GT SCH (05:09)
[2022-12-10 07:25] VITALS: TEMP 98.1
[2022-12-10] MEDS: HYDROGEN PEROXIDE 3% 118 ML BOTTLE TP SCH ×2 (08:42→19:22)
[2022-12-10 09:00] VITALS: O2SAT 97
[2022-12-10] MEDS: CALCIPOTRIENE TOP SCH ×2 (09:00→17:00)
[2022-12-10] MEDS: ACIDOPHILUS/BULGARICUS CHEW TAB GT SCH ×2 (09:00→20:18)
[2022-12-10] MEDS: MINERAL OIL/PETROLATUM,WHITE 57 GM TUBE TP SCH (09:00)
[2022-12-10] MEDS: COD LIVER OIL/ZINC OXIDE OINT 113 GM TUBE TP SCH ×2 (09:00→20:22)
[2022-12-10] MEDS: REMEDY ESSENTIAL ZINC PASTE 113 GM TOP SCH ×2 (09:00→20:22)
[2022-12-10] MEDS: METOPROLOL TARTRATE 50 MG TABLET GT SCH ×2 (09:00→20:19)
[2022-12-10] MEDS: BACLOFEN 20 MG TABLET GT SCH ×4 (09:00→20:18)
[2022-12-10] MEDS: SIMETHICONE 80 MG TAB.CHEW GT SCH ×3 (09:00→17:00)
[2022-12-10] MEDS: SERTRALINE HCL 50 MG TABLET GT SCH (09:00)
[2022-12-10 19:35] VITALS: O2SAT 99
[2022-12-10 20:00] VITALS: TEMP 97.6
[2022-12-10] MEDS: ASCORBIC ACID 500 MG TABLET GT SCH (20:21)
[2022-12-10] MEDS: MULTIVIT, IRON, MIN NO. 8, FA TABLET GT SCH (20:21)
[2022-12-11] MEDS: GLUCERNA 1.2 1000ML LIQUID GT PRN (01:17)
[2022-12-11] MEDS: OMEPRAZOLE 20 MG CAPSULE.DR GT SCH (05:24)
[2022-12-11 07:18] VITALS: TEMP 98.3
[2022-12-11] MEDS: BACLOFEN 20 MG TABLET GT SCH ×4 (08:06→20:48)
[2022-12-11] MEDS: MINERAL OIL/PETROLATUM,WHITE 57 GM TUBE TP SCH (08:06)
[2022-12-11] MEDS: ACIDOPHILUS/BULGARICUS CHEW TAB GT SCH ×2 (08:06→20:48)
[2022-12-11] MEDS: CALCIPOTRIENE TOP SCH ×2 (08:06→16:49)
[2022-12-11] MEDS: SIMETHICONE 80 MG TAB.CHEW GT SCH ×3 (08:06→16:48)
[2022-12-11] MEDS: KETOCONAZOLE 2% SHAMPOO 120 ML BOTTLE TP SCH (08:06)
[2022-12-11] MEDS: COD LIVER OIL/ZINC OXIDE OINT 113 GM TUBE TP SCH ×2 (08:06→20:49)
[2022-12-11] MEDS: METOPROLOL TARTRATE 50 MG TABLET GT SCH ×2 (08:06→20:49)
[2022-12-11] MEDS: REMEDY ESSENTIAL ZINC PASTE 113 GM TOP SCH ×2 (08:06→20:49)
[2022-12-11] MEDS: SERTRALINE HCL 50 MG TABLET GT SCH (08:06)
[2022-12-11] MEDS: HYDROGEN PEROXIDE 3% 118 ML BOTTLE TP SCH ×2 (08:21→19:09)
[2022-12-11 10:10] VITALS: O2SAT 97
[2022-12-11 20:00] VITALS: TEMP 98.6
[2022-12-11] MEDS: TRIAMCINOLONE ACET 0.1% OINT 15 GM TUBE TP SCH (20:49)
[2022-12-11] MEDS: ASCORBIC ACID 500 MG TABLET GT SCH (20:49)
[2022-12-11 21:00] VITALS: O2SAT 99
[2022-12-12] MEDS: OMEPRAZOLE 20 MG CAPSULE.DR GT SCH (05:58)
[2022-12-12 07:18] VITALS: TEMP 97.5
[2022-12-12 07:30] VITALS: O2SAT 97
[2022-12-12] MEDS: SIMETHICONE 80 MG TAB.CHEW GT SCH ×3 (09:00→17:35)
[2022-12-12] MEDS: CALCIPOTRIENE TOP SCH ×2 (09:00→17:35)
[2022-12-12] MEDS: MINERAL OIL/PETROLATUM,WHITE 57 GM TUBE TP SCH (09:00)
[2022-12-12] MEDS: BACLOFEN 20 MG TABLET GT SCH ×4 (09:00→20:31)
[2022-12-12] MEDS: SERTRALINE HCL 50 MG TABLET GT SCH (09:00)
[2022-12-12] MEDS: COD LIVER OIL/ZINC OXIDE OINT 113 GM TUBE TP SCH ×2 (09:00→20:31)
[2022-12-12] MEDS: METOPROLOL TARTRATE 50 MG TABLET GT SCH ×2 (09:00→20:31)
[2022-12-12] MEDS: ACIDOPHILUS/BULGARICUS CHEW TAB GT SCH ×2 (09:00→20:31)
[2022-12-12] MEDS: REMEDY ESSENTIAL ZINC PASTE 113 GM TOP SCH ×2 (09:00→20:31)
[2022-12-12] MEDS: HYDROGEN PEROXIDE 3% 118 ML BOTTLE TP SCH ×2 (09:00→19:15)
[2022-12-12 15:07] VITALS: O2SAT 97
[2022-12-12 19:15] VITALS: O2SAT 99
[2022-12-12 20:00] VITALS: TEMP 97.4
[2022-12-12] MEDS: ASCORBIC ACID 500 MG TABLET GT SCH (20:31)
[2022-12-12] MEDS: MULTIVIT, IRON, MIN NO. 8, FA TABLET GT SCH (20:31)
[2022-12-13] MEDS: OMEPRAZOLE 20 MG CAPSULE.DR GT SCH (05:04)
[2022-12-13 07:15] VITALS: O2SAT 99
[2022-12-13] MEDS: HYDROGEN PEROXIDE 3% 118 ML BOTTLE TP SCH ×2 (07:24→20:40)
[2022-12-13 08:00] VITALS: TEMP 97.8
[2022-12-13] MEDS: MINERAL OIL/PETROLATUM,WHITE 57 GM TUBE TP SCH (09:00)
[2022-12-13] MEDS: ACIDOPHILUS/BULGARICUS CHEW TAB GT SCH ×2 (09:00→20:24)
[2022-12-13] MEDS: CALCIPOTRIENE TOP SCH ×2 (09:00→17:00)
[2022-12-13] MEDS: REMEDY ESSENTIAL ZINC PASTE 113 GM TOP SCH ×2 (09:00→20:24)
[2022-12-13] MEDS: COD LIVER OIL/ZINC OXIDE OINT 113 GM TUBE TP SCH ×2 (09:00→20:24)
[2022-12-13] MEDS: BACLOFEN 20 MG TABLET GT SCH ×4 (09:41→20:24)
[2022-12-13] MEDS: METOPROLOL TARTRATE 50 MG TABLET GT SCH ×2 (09:42→20:24)
[2022-12-13] MEDS: SERTRALINE HCL 50 MG TABLET GT SCH (09:43)
[2022-12-13] MEDS: SIMETHICONE 80 MG TAB.CHEW GT SCH ×3 (09:43→17:00)
[2022-12-13 20:00] VITALS: TEMP 98.6
[2022-12-13 20:10] VITALS: O2SAT 98
[2022-12-13] MEDS: ASCORBIC ACID 500 MG TABLET GT SCH (20:24)
[2022-12-14] MEDS: OMEPRAZOLE 20 MG CAPSULE.DR GT SCH (05:26)
[2022-12-14 07:20] VITALS: O2SAT 97
[2022-12-14 08:00] VITALS: TEMP 97.6
[2022-12-14] MEDS: HYDROGEN PEROXIDE 3% 118 ML BOTTLE TP SCH ×2 (09:00→21:00)
[2022-12-14] MEDS: BACLOFEN 20 MG TABLET GT SCH ×4 (09:18→21:00)
[2022-12-14] MEDS: COD LIVER OIL/ZINC OXIDE OINT 113 GM TUBE TP SCH ×2 (09:18→21:00)
[2022-12-14] MEDS: SIMETHICONE 80 MG TAB.CHEW GT SCH ×3 (09:18→17:44)
[2022-12-14] MEDS: REMEDY ESSENTIAL ZINC PASTE 113 GM TOP SCH ×2 (09:18→21:00)
[2022-12-14] MEDS: MINERAL OIL/PETROLATUM,WHITE 57 GM TUBE TP SCH (09:18)
[2022-12-14] MEDS: METOPROLOL TARTRATE 50 MG TABLET GT SCH ×2 (09:18→21:00)
[2022-12-14] MEDS: ACIDOPHILUS/BULGARICUS CHEW TAB GT SCH ×2 (09:18→21:00)
[2022-12-14] MEDS: CALCIPOTRIENE TOP SCH ×2 (09:18→17:44)
[2022-12-14] MEDS: SERTRALINE HCL 50 MG TABLET GT SCH (09:18)
[2022-12-14] MEDS: KETOCONAZOLE 2% SHAMPOO 120 ML BOTTLE TP SCH (09:19)
[2022-12-14 17:44] VITALS: O2SAT 97
[2022-12-14 19:50] VITALS: O2SAT 99
[2022-12-14] MEDS: MULTIVIT, IRON, MIN NO. 8, FA TABLET GT SCH (21:00)
[2022-12-14] MEDS: TRIAMCINOLONE ACET 0.1% OINT 15 GM TUBE TP SCH (21:00)
[2022-12-14] MEDS: ASCORBIC ACID 500 MG TABLET GT SCH (21:00)
[2022-12-15] MEDS: OMEPRAZOLE 20 MG CAPSULE.DR GT SCH (06:18)
[2022-12-15] MEDS: GLUCERNA 1.2 1000ML LIQUID GT PRN (06:19)
[2022-12-15 07:25] VITALS: O2SAT 97
[2022-12-15 08:00] VITALS: TEMP 97.5
[2022-12-15] MEDS: HYDROGEN PEROXIDE 3% 118 ML BOTTLE TP SCH ×2 (08:39→19:23)
[2022-12-15] MEDS: SERTRALINE HCL 50 MG TABLET GT SCH (09:00)
[2022-12-15] MEDS: MINERAL OIL/PETROLATUM,WHITE 57 GM TUBE TP SCH (09:00)
[2022-12-15] MEDS: METOPROLOL TARTRATE 50 MG TABLET GT SCH ×2 (09:00→21:00)
[2022-12-15] MEDS: ACIDOPHILUS/BULGARICUS CHEW TAB GT SCH ×2 (09:00→21:00)
[2022-12-15] MEDS: BACLOFEN 20 MG TABLET GT SCH ×4 (09:00→21:00)
[2022-12-15] MEDS: CALCIPOTRIENE TOP SCH ×2 (09:00→17:00)
[2022-12-15] MEDS: SIMETHICONE 80 MG TAB.CHEW GT SCH ×3 (09:00→17:00)
[2022-12-15] MEDS: REMEDY ESSENTIAL ZINC PASTE 113 GM TOP SCH ×2 (09:00→21:00)
[2022-12-15] MEDS: COD LIVER OIL/ZINC OXIDE OINT 113 GM TUBE TP SCH ×2 (09:00→21:00)
[2022-12-15 19:10] VITALS: O2SAT 99
[2022-12-15 20:00] VITALS: TEMP 98
[2022-12-15] MEDS: ASCORBIC ACID 500 MG TABLET GT SCH (21:00)
[2022-12-16] MEDS: GLUCERNA 1.2 1000ML LIQUID GT PRN (03:15)
[2022-12-16] MEDS: OMEPRAZOLE 20 MG CAPSULE.DR GT SCH (05:15)
[2022-12-16 08:00] VITALS: TEMP 98.2
[2022-12-16 08:10] VITALS: O2SAT 97
[2022-12-16] MEDS: HYDROGEN PEROXIDE 3% 118 ML BOTTLE TP SCH ×2 (08:23→20:40)
[2022-12-16] MEDS: ACIDOPHILUS/BULGARICUS CHEW TAB GT SCH ×2 (09:18→21:51)
[2022-12-16] MEDS: BACLOFEN 20 MG TABLET GT SCH ×4 (09:19→21:53)
[2022-12-16] MEDS: METOPROLOL TARTRATE 50 MG TABLET GT SCH ×2 (09:20→21:53)
[2022-12-16] MEDS: SIMETHICONE 80 MG TAB.CHEW GT SCH ×3 (09:20→16:16)
[2022-12-16] MEDS: SERTRALINE HCL 50 MG TABLET GT SCH (09:20)
[2022-12-16] MEDS: COD LIVER OIL/ZINC OXIDE OINT 113 GM TUBE TP SCH ×2 (09:21→21:54)
[2022-12-16] MEDS: MINERAL OIL/PETROLATUM,WHITE 57 GM TUBE TP SCH (09:21)
[2022-12-16] MEDS: CALCIPOTRIENE TOP SCH ×2 (09:21→16:16)
[2022-12-16] MEDS: REMEDY ESSENTIAL ZINC PASTE 113 GM TOP SCH ×2 (09:21→21:54)
[2022-12-16 15:50] VITALS: O2SAT 97
[2022-12-16 20:00] VITALS: TEMP 97.9
[2022-12-16 21:23] VITALS: O2SAT 99
[2022-12-16] MEDS: ASCORBIC ACID 500 MG TABLET GT SCH (21:53)
[2022-12-16] MEDS: MULTIVIT, IRON, MIN NO. 8, FA TABLET GT SCH (21:53)
[2022-12-17] MEDS: OMEPRAZOLE 20 MG CAPSULE.DR GT SCH (06:23)
[2022-12-17 08:06] VITALS: TEMP 98.6
[2022-12-17] MEDS: ACIDOPHILUS/BULGARICUS CHEW TAB GT SCH ×2 (08:33→21:27)
[2022-12-17] MEDS: BACLOFEN 20 MG TABLET GT SCH ×4 (08:34→21:27)
[2022-12-17] MEDS: METOPROLOL TARTRATE 50 MG TABLET GT SCH ×2 (08:35→21:28)
[2022-12-17] MEDS: SIMETHICONE 80 MG TAB.CHEW GT SCH ×3 (08:36→17:17)
[2022-12-17] MEDS: SERTRALINE HCL 50 MG TABLET GT SCH (08:36)
[2022-12-17] MEDS: CALCIPOTRIENE TOP SCH ×2 (08:37→17:18)
[2022-12-17] MEDS: COD LIVER OIL/ZINC OXIDE OINT 113 GM TUBE TP SCH ×2 (08:37→21:30)
[2022-12-17] MEDS: REMEDY ESSENTIAL ZINC PASTE 113 GM TOP SCH ×2 (08:37→21:30)
[2022-12-17] MEDS: MINERAL OIL/PETROLATUM,WHITE 57 GM TUBE TP SCH (08:38)
[2022-12-17] MEDS: HYDROGEN PEROXIDE 3% 118 ML BOTTLE TP SCH ×2 (08:38→20:00)
[2022-12-17 09:20] VITALS: O2SAT 97
[2022-12-17] MEDS: GLUCERNA 1.2 1000ML LIQUID GT PRN (13:34)
[2022-12-17 20:00] VITALS: TEMP 98
[2022-12-17] MEDS: ASCORBIC ACID 500 MG TABLET GT SCH (21:28)
[2022-12-17 21:40] VITALS: O2SAT 99
[2022-12-18] MEDS: ACETAMINOPHEN 650 MG/20 ML UDC- SA PATIENTS-PAIN ONLY GT PRN ×2 (01:37→22:00)
[2022-12-18] MEDS: OMEPRAZOLE 20 MG CAPSULE.DR GT SCH (05:12)
[2022-12-18 07:29] VITALS: TEMP 97.8
[2022-12-18] MEDS: HYDROGEN PEROXIDE 3% 118 ML BOTTLE TP SCH ×2 (07:33→20:27)
[2022-12-18 09:56] VITALS: O2SAT 97
[2022-12-18] MEDS: ACIDOPHILUS/BULGARICUS CHEW TAB GT SCH ×2 (09:57→20:26)
[2022-12-18] MEDS: BACLOFEN 20 MG TABLET GT SCH ×4 (09:57→20:26)
[2022-12-18] MEDS: METOPROLOL TARTRATE 50 MG TABLET GT SCH ×2 (09:58→20:27)
[2022-12-18] MEDS: SIMETHICONE 80 MG TAB.CHEW GT SCH ×3 (09:58→17:00)
[2022-12-18] MEDS: COD LIVER OIL/ZINC OXIDE OINT 113 GM TUBE TP SCH ×2 (09:58→20:27)
[2022-12-18] MEDS: SERTRALINE HCL 50 MG TABLET GT SCH (09:58)
[2022-12-18] MEDS: CALCIPOTRIENE TOP SCH ×2 (09:58→17:00)
[2022-12-18] MEDS: REMEDY ESSENTIAL ZINC PASTE 113 GM TOP SCH ×2 (09:58→20:27)
[2022-12-18] MEDS: MINERAL OIL/PETROLATUM,WHITE 57 GM TUBE TP SCH (09:59)
[2022-12-18] MEDS: KETOCONAZOLE 2% SHAMPOO 120 ML BOTTLE TP SCH (09:59)
[2022-12-18] MEDS: GLUCERNA 1.2 1000ML LIQUID GT PRN (15:38)
[2022-12-18 19:53] VITALS: TEMP 97.8
[2022-12-18] MEDS: MULTIVIT, IRON, MIN NO. 8, FA TABLET GT SCH (20:27)
[2022-12-18] MEDS: TRIAMCINOLONE ACET 0.1% OINT 15 GM TUBE TP SCH (20:27)
[2022-12-18] MEDS: ASCORBIC ACID 500 MG TABLET GT SCH (20:27)
[2022-12-19] MEDS: OMEPRAZOLE 20 MG CAPSULE.DR GT SCH (06:38)
[2022-12-19 07:21] VITALS: TEMP 97.6
[2022-12-19] MEDS: HYDROGEN PEROXIDE 3% 118 ML BOTTLE TP SCH ×2 (07:27→20:40)
[2022-12-19] MEDS: ACIDOPHILUS/BULGARICUS CHEW TAB GT SCH ×2 (08:48→20:21)
[2022-12-19] MEDS: SERTRALINE HCL 50 MG TABLET GT SCH (08:49)
[2022-12-19] MEDS: METOPROLOL TARTRATE 50 MG TABLET GT SCH ×2 (08:49→20:24)
[2022-12-19] MEDS: CALCIPOTRIENE TOP SCH ×2 (08:49→17:00)
[2022-12-19] MEDS: BACLOFEN 20 MG TABLET GT SCH ×4 (08:49→20:21)
[2022-12-19] MEDS: SIMETHICONE 80 MG TAB.CHEW GT SCH ×3 (08:49→17:00)
[2022-12-19] MEDS: REMEDY ESSENTIAL ZINC PASTE 113 GM TOP SCH ×2 (08:50→20:25)
[2022-12-19] MEDS: MINERAL OIL/PETROLATUM,WHITE 57 GM TUBE TP SCH (08:50)
[2022-12-19] MEDS: COD LIVER OIL/ZINC OXIDE OINT 113 GM TUBE TP SCH ×2 (08:50→20:25)
[2022-12-19 10:20] VITALS: O2SAT 97; O2SAT 98
[2022-12-19 20:00] VITALS: TEMP 97.9
[2022-12-19] MEDS: ASCORBIC ACID 500 MG TABLET GT SCH (20:24)
[2022-12-19 20:30] VITALS: O2SAT 99
[2022-12-20] MEDS: OMEPRAZOLE 20 MG CAPSULE.DR GT SCH (05:03)
[2022-12-20 07:05] VITALS: O2SAT 97
[2022-12-20] MEDS: HYDROGEN PEROXIDE 3% 118 ML BOTTLE TP SCH ×2 (07:05→19:07)
[2022-12-20 07:23] VITALS: TEMP 97.5
[2022-12-20] MEDS: ACIDOPHILUS/BULGARICUS CHEW TAB GT SCH ×2 (08:57→20:41)
[2022-12-20] MEDS: BACLOFEN 20 MG TABLET GT SCH ×4 (08:57→20:41)
[2022-12-20] MEDS: COD LIVER OIL/ZINC OXIDE OINT 113 GM TUBE TP SCH ×2 (08:59→20:42)
[2022-12-20] MEDS: REMEDY ESSENTIAL ZINC PASTE 113 GM TOP SCH ×2 (08:59→20:42)
[2022-12-20] MEDS: METOPROLOL TARTRATE 50 MG TABLET GT SCH ×2 (08:59→20:41)
[2022-12-20] MEDS: CALCIPOTRIENE TOP SCH ×2 (08:59→17:03)
[2022-12-20] MEDS: SIMETHICONE 80 MG TAB.CHEW GT SCH ×3 (08:59→17:03)
[2022-12-20] MEDS: SERTRALINE HCL 50 MG TABLET GT SCH (08:59)
[2022-12-20] MEDS: MINERAL OIL/PETROLATUM,WHITE 57 GM TUBE TP SCH (09:00)
[2022-12-20 19:13] VITALS: O2SAT 99
[2022-12-20 20:00] VITALS: TEMP 97.9
[2022-12-20] MEDS: MULTIVIT, IRON, MIN NO. 8, FA TABLET GT SCH (20:41)
[2022-12-20] MEDS: ASCORBIC ACID 500 MG TABLET GT SCH (20:41)
[2022-12-20 20:50] VITALS: O2SAT 99
[2022-12-21] MEDS: GLUCERNA 1.2 1000ML LIQUID GT PRN (05:18)
[2022-12-21] MEDS: OMEPRAZOLE 20 MG CAPSULE.DR GT SCH (05:18)
[2022-12-21 07:16] VITALS: TEMP 97.8
[2022-12-21 08:00] VITALS: O2SAT 97
[2022-12-21] MEDS: HYDROGEN PEROXIDE 3% 118 ML BOTTLE TP SCH ×2 (09:00→19:17)
[2022-12-21] MEDS: ACIDOPHILUS/BULGARICUS CHEW TAB GT SCH ×2 (09:46→20:14)
[2022-12-21] MEDS: BACLOFEN 20 MG TABLET GT SCH ×4 (09:46→20:14)
[2022-12-21] MEDS: SIMETHICONE 80 MG TAB.CHEW GT SCH ×3 (09:47→17:00)
[2022-12-21] MEDS: METOPROLOL TARTRATE 50 MG TABLET GT SCH ×2 (09:47→20:15)
[2022-12-21] MEDS: SERTRALINE HCL 50 MG TABLET GT SCH (09:47)
[2022-12-21] MEDS: REMEDY ESSENTIAL ZINC PASTE 113 GM TOP SCH ×2 (09:48→20:15)
[2022-12-21] MEDS: COD LIVER OIL/ZINC OXIDE OINT 113 GM TUBE TP SCH ×2 (09:48→20:15)
[2022-12-21] MEDS: CALCIPOTRIENE TOP SCH ×2 (09:48→17:00)
[2022-12-21] MEDS: KETOCONAZOLE 2% SHAMPOO 120 ML BOTTLE TP SCH (09:48)
[2022-12-21] MEDS: MINERAL OIL/PETROLATUM,WHITE 57 GM TUBE TP SCH (09:48)
[2022-12-21 19:11] VITALS: O2SAT 99
[2022-12-21 19:55] VITALS: TEMP 98
[2022-12-21] MEDS: TRIAMCINOLONE ACET 0.1% OINT 15 GM TUBE TP SCH (20:15)
[2022-12-21] MEDS: ASCORBIC ACID 500 MG TABLET GT SCH (20:15)
[2022-12-22] MEDS: OMEPRAZOLE 20 MG CAPSULE.DR GT SCH (05:10)
[2022-12-22 07:41] VITALS: TEMP 97.3
[2022-12-22] MEDS: HYDROGEN PEROXIDE 3% 118 ML BOTTLE TP SCH ×2 (07:41→19:25)
[2022-12-22] MEDS: BACLOFEN 20 MG TABLET GT SCH ×4 (08:43→20:43)
[2022-12-22] MEDS: ACIDOPHILUS/BULGARICUS CHEW TAB GT SCH ×2 (08:43→20:43)
[2022-12-22] MEDS: METOPROLOL TARTRATE 50 MG TABLET GT SCH ×2 (08:44→20:43)
[2022-12-22] MEDS: SIMETHICONE 80 MG TAB.CHEW GT SCH ×3 (08:44→17:16)
[2022-12-22] MEDS: SERTRALINE HCL 50 MG TABLET GT SCH (08:44)
[2022-12-22] MEDS: REMEDY ESSENTIAL ZINC PASTE 113 GM TOP SCH ×2 (08:45→20:44)
[2022-12-22] MEDS: COD LIVER OIL/ZINC OXIDE OINT 113 GM TUBE TP SCH ×2 (08:45→20:44)
[2022-12-22] MEDS: CALCIPOTRIENE TOP SCH ×2 (08:45→17:16)
[2022-12-22] MEDS: MINERAL OIL/PETROLATUM,WHITE 57 GM TUBE TP SCH (08:45)
[2022-12-22 10:00] VITALS: O2SAT 99
[2022-12-22] MEDS: GLUCERNA 1.2 1000ML LIQUID GT PRN (17:16)
[2022-12-22 19:25] VITALS: O2SAT 99
[2022-12-22 20:00] VITALS: TEMP 97.9
[2022-12-22] MEDS: MULTIVIT, IRON, MIN NO. 8, FA TABLET GT SCH (20:44)
[2022-12-22] MEDS: ASCORBIC ACID 500 MG TABLET GT SCH (20:44)
[2022-12-23] MEDS: OMEPRAZOLE 20 MG CAPSULE.DR GT SCH (05:34)
[2022-12-23 07:05] VITALS: O2SAT 99
[2022-12-23 07:35] VITALS: TEMP 97.6
[2022-12-23] MEDS: ACIDOPHILUS/BULGARICUS CHEW TAB GT SCH ×2 (08:24→21:00)
[2022-12-23] MEDS: BACLOFEN 20 MG TABLET GT SCH ×4 (08:25→21:00)
[2022-12-23] MEDS: SERTRALINE HCL 50 MG TABLET GT SCH (08:29)
[2022-12-23] MEDS: METOPROLOL TARTRATE 50 MG TABLET GT SCH ×2 (08:29→21:00)
[2022-12-23] MEDS: SIMETHICONE 80 MG TAB.CHEW GT SCH ×3 (08:30→16:57)
[2022-12-23] MEDS: REMEDY ESSENTIAL ZINC PASTE 113 GM TOP SCH ×2 (08:33→21:00)
[2022-12-23] MEDS: CALCIPOTRIENE TOP SCH ×2 (08:33→17:16)
[2022-12-23] MEDS: COD LIVER OIL/ZINC OXIDE OINT 113 GM TUBE TP SCH ×2 (08:34→21:00)
[2022-12-23] MEDS: MINERAL OIL/PETROLATUM,WHITE 57 GM TUBE TP SCH (08:36)
[2022-12-23] MEDS: HYDROGEN PEROXIDE 3% 118 ML BOTTLE TP SCH ×2 (08:47→19:24)
[2022-12-23] MEDS: GLUCERNA 1.2 1000ML LIQUID GT PRN (17:00)
[2022-12-23 19:25] VITALS: O2SAT 99
[2022-12-23 20:00] VITALS: TEMP 97.8
[2022-12-23] MEDS: ASCORBIC ACID 500 MG TABLET GT SCH (21:00)
[2022-12-24] MEDS: OMEPRAZOLE 20 MG CAPSULE.DR GT SCH (05:44)
[2022-12-24 08:04] VITALS: TEMP 97.5
[2022-12-24] MEDS: BACLOFEN 20 MG TABLET GT SCH ×4 (08:24→20:23)
[2022-12-24] MEDS: ACIDOPHILUS/BULGARICUS CHEW TAB GT SCH ×2 (08:24→20:23)
[2022-12-24] MEDS: SIMETHICONE 80 MG TAB.CHEW GT SCH ×3 (08:30→17:07)
[2022-12-24] MEDS: METOPROLOL TARTRATE 50 MG TABLET GT SCH ×2 (08:30→20:24)
[2022-12-24] MEDS: SERTRALINE HCL 50 MG TABLET GT SCH (08:30)
[2022-12-24] MEDS: COD LIVER OIL/ZINC OXIDE OINT 113 GM TUBE TP SCH ×2 (08:31→20:25)
[2022-12-24] MEDS: REMEDY ESSENTIAL ZINC PASTE 113 GM TOP SCH ×2 (08:31→20:25)
[2022-12-24] MEDS: MINERAL OIL/PETROLATUM,WHITE 57 GM TUBE TP SCH (08:31)
[2022-12-24] MEDS: CALCIPOTRIENE TOP SCH ×2 (08:31→17:08)
[2022-12-24] MEDS: HYDROGEN PEROXIDE 3% 118 ML BOTTLE TP SCH ×2 (08:53→19:19)
[2022-12-24] MEDS: GLUCERNA 1.2 1000ML LIQUID GT PRN (17:08)
[2022-12-24 17:21] VITALS: O2SAT 99
[2022-12-24 19:05] VITALS: O2SAT 99
[2022-12-24] MEDS: MULTIVIT, IRON, MIN NO. 8, FA TABLET GT SCH (20:24)
[2022-12-24] MEDS: ASCORBIC ACID 500 MG TABLET GT SCH (20:24)
[2022-12-25] MEDS: ACETAMINOPHEN 650 MG/20 ML UDC- SA PATIENTS-PAIN ONLY GT PRN (02:45)
[2022-12-25] MEDS: OMEPRAZOLE 20 MG CAPSULE.DR GT SCH (05:34)
[2022-12-25 07:27] VITALS: TEMP 98.3
[2022-12-25] MEDS: HYDROGEN PEROXIDE 3% 118 ML BOTTLE TP SCH ×2 (08:04→20:42)
[2022-12-25] MEDS: ACIDOPHILUS/BULGARICUS CHEW TAB GT SCH ×2 (08:20→20:41)
[2022-12-25] MEDS: BACLOFEN 20 MG TABLET GT SCH ×4 (08:21→20:41)
[2022-12-25] MEDS: METOPROLOL TARTRATE 50 MG TABLET GT SCH ×2 (08:26→20:42)
[2022-12-25] MEDS: REMEDY ESSENTIAL ZINC PASTE 113 GM TOP SCH ×2 (08:27→20:42)
[2022-12-25] MEDS: SIMETHICONE 80 MG TAB.CHEW GT SCH ×3 (08:27→17:37)
[2022-12-25] MEDS: COD LIVER OIL/ZINC OXIDE OINT 113 GM TUBE TP SCH ×2 (08:27→20:42)
[2022-12-25] MEDS: CALCIPOTRIENE TOP SCH ×2 (08:27→17:38)
[2022-12-25] MEDS: SERTRALINE HCL 50 MG TABLET GT SCH (08:27)
[2022-12-25] MEDS: MINERAL OIL/PETROLATUM,WHITE 57 GM TUBE TP SCH (08:28)
[2022-12-25] MEDS: KETOCONAZOLE 2% SHAMPOO 120 ML BOTTLE TP SCH (08:29)
[2022-12-25 10:25] VITALS: O2SAT 98
[2022-12-25 20:00] VITALS: TEMP 97.5
[2022-12-25] MEDS: ASCORBIC ACID 500 MG TABLET GT SCH (20:42)
[2022-12-25] MEDS: TRIAMCINOLONE ACET 0.1% OINT 15 GM TUBE TP SCH (20:43)
[2022-12-26] MEDS: OMEPRAZOLE 20 MG CAPSULE.DR GT SCH (05:59)
[2022-12-26 07:10] VITALS: O2SAT 97
[2022-12-26 07:25] VITALS: TEMP 98.6
[2022-12-26] MEDS: HYDROGEN PEROXIDE 3% 118 ML BOTTLE TP SCH ×2 (08:18→19:00)
[2022-12-26] MEDS: ACIDOPHILUS/BULGARICUS CHEW TAB GT SCH ×2 (08:31→20:25)
[2022-12-26] MEDS: BACLOFEN 20 MG TABLET GT SCH ×4 (08:31→20:25)
[2022-12-26] MEDS: METOPROLOL TARTRATE 50 MG TABLET GT SCH ×2 (08:35→20:26)
[2022-12-26] MEDS: MINERAL OIL/PETROLATUM,WHITE 57 GM TUBE TP SCH (08:35)
[2022-12-26] MEDS: REMEDY ESSENTIAL ZINC PASTE 113 GM TOP SCH ×2 (08:35→20:26)
[2022-12-26] MEDS: CALCIPOTRIENE TOP SCH ×2 (08:35→17:00)
[2022-12-26] MEDS: SIMETHICONE 80 MG TAB.CHEW GT SCH ×3 (08:35→17:00)
[2022-12-26] MEDS: COD LIVER OIL/ZINC OXIDE OINT 113 GM TUBE TP SCH (08:35)
[2022-12-26] MEDS: SERTRALINE HCL 50 MG TABLET GT SCH (08:35)
[2022-12-26 16:57] VITALS: O2SAT 97
[2022-12-26 19:08] VITALS: O2SAT 98
[2022-12-26 20:00] VITALS: TEMP 97.6
[2022-12-26] MEDS: ASCORBIC ACID 500 MG TABLET GT SCH (20:26)
[2022-12-26] MEDS: MULTIVIT, IRON, MIN NO. 8, FA TABLET GT SCH (20:26)
[2022-12-27] MEDS: GLUCERNA 1.2 1000ML LIQUID GT PRN (05:03)
[2022-12-27] MEDS: OMEPRAZOLE 20 MG CAPSULE.DR GT SCH (05:03)
[2022-12-27 07:19] VITALS: TEMP 97.6
[2022-12-27] MEDS: HYDROGEN PEROXIDE 3% 118 ML BOTTLE TP SCH ×2 (08:46→20:34)
[2022-12-27] MEDS: SIMETHICONE 80 MG TAB.CHEW GT SCH ×3 (09:08→16:19)
[2022-12-27] MEDS: CALCIPOTRIENE TOP SCH ×2 (09:08→16:19)
[2022-12-27] MEDS: REMEDY ESSENTIAL ZINC PASTE 113 GM TOP SCH ×2 (09:08→20:41)
[2022-12-27] MEDS: SERTRALINE HCL 50 MG TABLET GT SCH (09:08)
[2022-12-27] MEDS: ACIDOPHILUS/BULGARICUS CHEW TAB GT SCH ×2 (09:08→20:41)
[2022-12-27] MEDS: MINERAL OIL/PETROLATUM,WHITE 57 GM TUBE TP SCH (09:08)
[2022-12-27] MEDS: BACLOFEN 20 MG TABLET GT SCH ×4 (09:08→20:41)
[2022-12-27] MEDS: METOPROLOL TARTRATE 50 MG TABLET GT SCH ×2 (09:09→20:41)
[2022-12-27 10:10] VITALS: O2SAT 97
[2022-12-27] MEDS: ACETAMINOPHEN 650 MG/20 ML UDC- SA PATIENTS-PAIN ONLY GT PRN (14:47)
[2022-12-27 19:55] VITALS: O2SAT 99
[2022-12-27 20:00] VITALS: TEMP 97.7
[2022-12-27] MEDS: ASCORBIC ACID 500 MG TABLET GT SCH (20:41)
[2022-12-28] MEDS: GLUCERNA 1.2 1000ML LIQUID GT PRN (05:15)
[2022-12-28] MEDS: OMEPRAZOLE 20 MG CAPSULE.DR GT SCH (05:15)
[2022-12-28 07:43] VITALS: TEMP 98.1
[2022-12-28] MEDS: BACLOFEN 20 MG TABLET GT SCH ×4 (08:10→20:37)
[2022-12-28] MEDS: ACIDOPHILUS/BULGARICUS CHEW TAB GT SCH ×2 (08:10→20:37)
[2022-12-28] MEDS: METOPROLOL TARTRATE 50 MG TABLET GT SCH ×2 (08:11→21:02)
[2022-12-28] MEDS: SIMETHICONE 80 MG TAB.CHEW GT SCH ×3 (08:14→17:08)
[2022-12-28] MEDS: SERTRALINE HCL 50 MG TABLET GT SCH (08:14)
[2022-12-28] MEDS: CALCIPOTRIENE TOP SCH ×2 (08:14→17:08)
[2022-12-28] MEDS: MINERAL OIL/PETROLATUM,WHITE 57 GM TUBE TP SCH (08:14)
[2022-12-28] MEDS: REMEDY ESSENTIAL ZINC PASTE 113 GM TOP SCH ×2 (08:14→21:02)
[2022-12-28] MEDS: KETOCONAZOLE 2% SHAMPOO 120 ML BOTTLE TP SCH (08:15)
[2022-12-28 10:40] VITALS: O2SAT 98
[2022-12-28] MEDS: HYDROGEN PEROXIDE 3% 118 ML BOTTLE TP SCH ×2 (13:28→20:48)
[2022-12-28 20:05] VITALS: O2SAT 99
[2022-12-28] MEDS: MULTIVIT, IRON, MIN NO. 8, FA TABLET GT SCH (20:38)
[2022-12-28] MEDS: ASCORBIC ACID 500 MG TABLET GT SCH (21:02)
[2022-12-28] MEDS: TRIAMCINOLONE ACET 0.1% OINT 15 GM TUBE TP SCH (21:02)
[2022-12-28 21:31] VITALS: TEMP 98.2
[2022-12-29] MEDS: ACIDOPHILUS/BULGARICUS CHEW TAB GT SCH ×2 (05:20→20:52)
[2022-12-29] MEDS: OMEPRAZOLE 20 MG CAPSULE.DR GT SCH (05:20)
[2022-12-29 07:05] VITALS: O2SAT 99
[2022-12-29] MEDS: HYDROGEN PEROXIDE 3% 118 ML BOTTLE TP SCH ×2 (07:25→19:15)
[2022-12-29 07:46] VITALS: TEMP 97
[2022-12-29] MEDS: SIMETHICONE 80 MG TAB.CHEW GT SCH ×3 (09:54→17:59)
[2022-12-29] MEDS: BACLOFEN 20 MG TABLET GT SCH ×4 (09:54→20:53)
[2022-12-29] MEDS: SERTRALINE HCL 50 MG TABLET GT SCH (09:54)
[2022-12-29] MEDS: METOPROLOL TARTRATE 50 MG TABLET GT SCH ×2 (09:54→20:53)
[2022-12-29] MEDS: CALCIPOTRIENE TOP SCH ×2 (09:55→17:59)
[2022-12-29] MEDS: REMEDY ESSENTIAL ZINC PASTE 113 GM TOP SCH ×2 (09:55→20:54)
[2022-12-29] MEDS: MINERAL OIL/PETROLATUM,WHITE 57 GM TUBE TP SCH (09:55)
[2022-12-29 19:08] VITALS: O2SAT 99
[2022-12-29 19:57] VITALS: TEMP 98
[2022-12-29] MEDS: ASCORBIC ACID 500 MG TABLET GT SCH (20:53)
[2022-12-30] MEDS: GLUCERNA 1.2 1000ML LIQUID GT PRN (05:00)
[2022-12-30] MEDS: OMEPRAZOLE 20 MG CAPSULE.DR GT SCH (05:14)
[2022-12-30 07:05] VITALS: O2SAT 99
[2022-12-30] MEDS: HYDROGEN PEROXIDE 3% 118 ML BOTTLE TP SCH ×2 (07:09→19:16)
[2022-12-30 08:00] VITALS: TEMP 98.2
[2022-12-30] MEDS: BACLOFEN 20 MG TABLET GT SCH ×4 (09:20→20:12)
[2022-12-30] MEDS: ACIDOPHILUS/BULGARICUS CHEW TAB GT SCH ×2 (09:20→20:12)
[2022-12-30] MEDS: SIMETHICONE 80 MG TAB.CHEW GT SCH ×3 (09:21→17:41)
[2022-12-30] MEDS: METOPROLOL TARTRATE 50 MG TABLET GT SCH ×2 (09:21→20:12)
[2022-12-30] MEDS: SERTRALINE HCL 50 MG TABLET GT SCH (09:21)
[2022-12-30] MEDS: MINERAL OIL/PETROLATUM,WHITE 57 GM TUBE TP SCH (09:21)
[2022-12-30] MEDS: REMEDY ESSENTIAL ZINC PASTE 113 GM TOP SCH ×2 (09:21→20:13)
[2022-12-30 19:12] VITALS: O2SAT 99
[2022-12-30 20:00] VITALS: TEMP 98
[2022-12-30] MEDS: MULTIVIT, IRON, MIN NO. 8, FA TABLET GT SCH (20:12)
[2022-12-30] MEDS: ASCORBIC ACID 500 MG TABLET GT SCH (20:13)
[2022-12-31] MEDS: GLUCERNA 1.2 1000ML LIQUID GT PRN (05:00)
[2022-12-31] MEDS: OMEPRAZOLE 20 MG CAPSULE.DR GT SCH (05:01)
[2022-12-31] MEDS: HYDROGEN PEROXIDE 3% 118 ML BOTTLE TP SCH ×2 (07:41→19:23)
[2022-12-31] MEDS: ACIDOPHILUS/BULGARICUS CHEW TAB GT SCH ×2 (08:29→20:27)
[2022-12-31] MEDS: BACLOFEN 20 MG TABLET GT SCH ×4 (08:29→20:28)
[2022-12-31] MEDS: SIMETHICONE 80 MG TAB.CHEW GT SCH ×3 (08:30→16:50)
[2022-12-31] MEDS: METOPROLOL TARTRATE 50 MG TABLET GT SCH ×2 (08:30→20:28)
[2022-12-31] MEDS: SERTRALINE HCL 50 MG TABLET GT SCH (08:31)
[2022-12-31] MEDS: REMEDY ESSENTIAL ZINC PASTE 113 GM TOP SCH ×2 (08:31→20:28)
[2022-12-31] MEDS: MINERAL OIL/PETROLATUM,WHITE 57 GM TUBE TP SCH (09:00)
[2022-12-31 10:40] VITALS: O2SAT 99
[2022-12-31 19:08] VITALS: O2SAT 99
[2022-12-31 20:00] VITALS: TEMP 98
[2022-12-31] MEDS: ASCORBIC ACID 500 MG TABLET GT SCH (20:28)
[2023-01-01] MEDS: OMEPRAZOLE 20 MG CAPSULE.DR GT SCH (06:29)
[2023-01-01 07:29] VITALS: TEMP 97.6
[2023-01-01] MEDS: HYDROGEN PEROXIDE 3% 118 ML BOTTLE TP SCH ×2 (08:04→19:08)
[2023-01-01] MEDS: ACIDOPHILUS/BULGARICUS CHEW TAB GT SCH ×2 (08:56→20:10)
[2023-01-01] MEDS: BACLOFEN 20 MG TABLET GT SCH ×4 (08:58→20:10)
[2023-01-01] MEDS: METOPROLOL TARTRATE 50 MG TABLET GT SCH ×2 (08:58→20:11)
[2023-01-01] MEDS: SERTRALINE HCL 50 MG TABLET GT SCH (08:58)
[2023-01-01] MEDS: SIMETHICONE 80 MG TAB.CHEW GT SCH ×3 (08:58→16:43)
[2023-01-01] MEDS: REMEDY ESSENTIAL ZINC PASTE 113 GM TOP SCH ×2 (10:00→20:12)
[2023-01-01] MEDS: MINERAL OIL/PETROLATUM,WHITE 57 GM TUBE TP SCH (10:00)
[2023-01-01] MEDS: KETOCONAZOLE 2% SHAMPOO 120 ML BOTTLE TP SCH (10:00)
[2023-01-01 13:46] VITALS: O2SAT 99
[2023-01-01 19:05] VITALS: O2SAT 99
[2023-01-01 20:00] VITALS: TEMP 98.1
[2023-01-01] MEDS: ASCORBIC ACID 500 MG TABLET GT SCH (20:12)
[2023-01-01] MEDS: TRIAMCINOLONE ACET 0.1% OINT 15 GM TUBE TP SCH (20:12)
[2023-01-01] MEDS: MULTIVIT, IRON, MIN NO. 8, FA TABLET GT SCH (20:12)
[2023-01-02] MEDS: OMEPRAZOLE 20 MG CAPSULE.DR GT SCH (05:32)
[2023-01-02 07:05] VITALS: O2SAT 97
[2023-01-02] MEDS: HYDROGEN PEROXIDE 3% 118 ML BOTTLE TP SCH ×2 (07:16→19:35)
[2023-01-02 07:21] VITALS: TEMP 97.7
[2023-01-02] MEDS: METOPROLOL TARTRATE 50 MG TABLET GT SCH ×2 (09:00→20:31)
[2023-01-02] MEDS: ACIDOPHILUS/BULGARICUS CHEW TAB GT SCH ×2 (09:44→20:30)
[2023-01-02] MEDS: BACLOFEN 20 MG TABLET GT SCH ×4 (09:44→20:30)
[2023-01-02] MEDS: SIMETHICONE 80 MG TAB.CHEW GT SCH ×3 (09:45→17:00)
[2023-01-02] MEDS: SERTRALINE HCL 50 MG TABLET GT SCH (09:45)
[2023-01-02] MEDS: MINERAL OIL/PETROLATUM,WHITE 57 GM TUBE TP SCH (09:46)
[2023-01-02] MEDS: REMEDY ESSENTIAL ZINC PASTE 113 GM TOP SCH ×2 (09:46→20:31)
[2023-01-02 17:24] VITALS: O2SAT 97
[2023-01-02 19:58] VITALS: TEMP 98.1
[2023-01-02] MEDS: ASCORBIC ACID 500 MG TABLET GT SCH (20:31)
[2023-01-02 22:26] VITALS: O2SAT 99
[2023-01-03] MEDS: GLUCERNA 1.2 1000ML LIQUID GT PRN (05:02)
[2023-01-03] MEDS: OMEPRAZOLE 20 MG CAPSULE.DR GT SCH (05:02)
[2023-01-03 08:00] VITALS: TEMP 98.5
[2023-01-03] MEDS: HYDROGEN PEROXIDE 3% 118 ML BOTTLE TP SCH ×2 (09:00→19:14)
[2023-01-03] MEDS: ACIDOPHILUS/BULGARICUS CHEW TAB GT SCH ×2 (09:15→20:19)
[2023-01-03] MEDS: SIMETHICONE 80 MG TAB.CHEW GT SCH ×3 (09:16→17:10)
[2023-01-03] MEDS: BACLOFEN 20 MG TABLET GT SCH ×4 (09:16→20:19)
[2023-01-03] MEDS: SERTRALINE HCL 50 MG TABLET GT SCH (09:16)
[2023-01-03] MEDS: MINERAL OIL/PETROLATUM,WHITE 57 GM TUBE TP SCH (09:16)
[2023-01-03] MEDS: REMEDY ESSENTIAL ZINC PASTE 113 GM TOP SCH ×2 (09:16→20:20)
[2023-01-03] MEDS: METOPROLOL TARTRATE 50 MG TABLET GT SCH ×2 (09:16→20:20)
[2023-01-03 13:33] VITALS: O2SAT 99
[2023-01-03 19:09] VITALS: O2SAT 97
[2023-01-03 19:59] VITALS: TEMP 98
[2023-01-03] MEDS: MULTIVIT, IRON, MIN NO. 8, FA TABLET GT SCH (20:20)
[2023-01-03] MEDS: ASCORBIC ACID 500 MG TABLET GT SCH (20:20)
[2023-01-04] MEDS: OMEPRAZOLE 20 MG CAPSULE.DR GT SCH (05:02)
[2023-01-04 07:50] VITALS: TEMP 97.1
[2023-01-04] MEDS: BACLOFEN 20 MG TABLET GT SCH ×4 (08:55→20:14)
[2023-01-04] MEDS: ACIDOPHILUS/BULGARICUS CHEW TAB GT SCH ×2 (08:55→20:14)
[2023-01-04] MEDS: METOPROLOL TARTRATE 50 MG TABLET GT SCH ×2 (08:56→20:14)
[2023-01-04] MEDS: MINERAL OIL/PETROLATUM,WHITE 57 GM TUBE TP SCH (08:56)
[2023-01-04] MEDS: KETOCONAZOLE 2% SHAMPOO 120 ML BOTTLE TP SCH (08:56)
[2023-01-04] MEDS: SERTRALINE HCL 50 MG TABLET GT SCH (08:56)
[2023-01-04] MEDS: REMEDY ESSENTIAL ZINC PASTE 113 GM TOP SCH ×2 (08:56→20:14)
[2023-01-04] MEDS: SIMETHICONE 80 MG TAB.CHEW GT SCH ×3 (08:56→17:07)
[2023-01-04] MEDS: HYDROGEN PEROXIDE 3% 118 ML BOTTLE TP SCH ×2 (09:00→19:09)
[2023-01-04 10:45] VITALS: O2SAT 99
[2023-01-04 15:42] VITALS: O2SAT 97
[2023-01-04] MEDS: GLUCERNA 1.2 1000ML LIQUID GT PRN (17:07)
[2023-01-04 19:35] VITALS: O2SAT 97
[2023-01-04 20:00] VITALS: TEMP 98
[2023-01-04] MEDS: TRIAMCINOLONE ACET 0.1% OINT 15 GM TUBE TP SCH (20:14)
[2023-01-04] MEDS: ASCORBIC ACID 500 MG TABLET GT SCH (20:14)
[2023-01-05] MEDS: OMEPRAZOLE 20 MG CAPSULE.DR GT SCH (05:15)
[2023-01-05 07:43] VITALS: TEMP 97.8
[2023-01-05] MEDS: HYDROGEN PEROXIDE 3% 118 ML BOTTLE TP SCH ×2 (09:00→19:12)
[2023-01-05] MEDS: BACLOFEN 20 MG TABLET GT SCH ×4 (09:00→21:13)
[2023-01-05] MEDS: ACIDOPHILUS/BULGARICUS CHEW TAB GT SCH ×2 (09:00→21:13)
[2023-01-05] MEDS: SERTRALINE HCL 50 MG TABLET GT SCH (09:02)
[2023-01-05] MEDS: REMEDY ESSENTIAL ZINC PASTE 113 GM TOP SCH ×2 (09:02→21:14)
[2023-01-05] MEDS: SIMETHICONE 80 MG TAB.CHEW GT SCH ×3 (09:02→17:31)
[2023-01-05] MEDS: MINERAL OIL/PETROLATUM,WHITE 57 GM TUBE TP SCH (09:03)
[2023-01-05] MEDS: METOPROLOL TARTRATE 50 MG TABLET GT SCH ×2 (09:06→21:14)
[2023-01-05 10:20] VITALS: O2SAT 99
[2023-01-05 19:55] VITALS: O2SAT 97
[2023-01-05 20:00] VITALS: TEMP 98
[2023-01-05] MEDS: MULTIVIT, IRON, MIN NO. 8, FA TABLET GT SCH (21:14)
[2023-01-05] MEDS: ASCORBIC ACID 500 MG TABLET GT SCH (21:14)
[2023-01-05] MEDS: GLUCERNA 1.2 1000ML LIQUID GT PRN (21:17)
[2023-01-06 02:45] VITALS: O2SAT 98
[2023-01-06] MEDS: OMEPRAZOLE 20 MG CAPSULE.DR GT SCH (05:02)
[2023-01-06 07:05] VITALS: O2SAT 99
[2023-01-06] MEDS: HYDROGEN PEROXIDE 3% 118 ML BOTTLE TP SCH ×2 (07:10→19:07)
[2023-01-06 07:24] VITALS: TEMP 97.9
[2023-01-06] MEDS: ACIDOPHILUS/BULGARICUS CHEW TAB GT SCH ×2 (09:52→20:40)
[2023-01-06] MEDS: BACLOFEN 20 MG TABLET GT SCH ×4 (09:53→20:40)
[2023-01-06] MEDS: SIMETHICONE 80 MG TAB.CHEW GT SCH ×3 (09:54→17:30)
[2023-01-06] MEDS: REMEDY ESSENTIAL ZINC PASTE 113 GM TOP SCH ×2 (09:54→20:41)
[2023-01-06] MEDS: SERTRALINE HCL 50 MG TABLET GT SCH (09:54)
[2023-01-06] MEDS: MINERAL OIL/PETROLATUM,WHITE 57 GM TUBE TP SCH (09:54)
[2023-01-06] MEDS: METOPROLOL TARTRATE 50 MG TABLET GT SCH ×2 (09:54→20:41)
[2023-01-06 19:40] VITALS: O2SAT 97
[2023-01-06 20:00] VITALS: TEMP 97.7
[2023-01-06] MEDS: ASCORBIC ACID 500 MG TABLET GT SCH (20:41)
[2023-01-07] MEDS: GLUCERNA 1.2 1000ML LIQUID GT PRN (02:15)
[2023-01-07] MEDS: OMEPRAZOLE 20 MG CAPSULE.DR GT SCH (05:11)
[2023-01-07 07:18] VITALS: TEMP 97.8
[2023-01-07] MEDS: HYDROGEN PEROXIDE 3% 118 ML BOTTLE TP SCH ×2 (08:17→21:15)
[2023-01-07] MEDS: ACIDOPHILUS/BULGARICUS CHEW TAB GT SCH ×2 (08:36→20:41)
[2023-01-07] MEDS: SIMETHICONE 80 MG TAB.CHEW GT SCH ×3 (08:37→17:48)
[2023-01-07] MEDS: BACLOFEN 20 MG TABLET GT SCH ×4 (08:37→20:41)
[2023-01-07] MEDS: METOPROLOL TARTRATE 50 MG TABLET GT SCH ×2 (08:37→20:41)
[2023-01-07] MEDS: MINERAL OIL/PETROLATUM,WHITE 57 GM TUBE TP SCH (08:38)
[2023-01-07] MEDS: REMEDY ESSENTIAL ZINC PASTE 113 GM TOP SCH ×2 (08:38→20:42)
[2023-01-07] MEDS: SERTRALINE HCL 50 MG TABLET GT SCH (08:38)
[2023-01-07 14:06] VITALS: O2SAT 99
[2023-01-07 19:05] VITALS: O2SAT 99
[2023-01-07 20:19] VITALS: TEMP 97.9
[2023-01-07] MEDS: ASCORBIC ACID 500 MG TABLET GT SCH (20:41)
[2023-01-07] MEDS: MULTIVIT, IRON, MIN NO. 8, FA TABLET GT SCH (20:41)
[2023-01-08] MEDS: OMEPRAZOLE 20 MG CAPSULE.DR GT SCH (05:45)
[2023-01-08] MEDS: HYDROGEN PEROXIDE 3% 118 ML BOTTLE TP SCH ×2 (07:51→19:02)
[2023-01-08 08:00] VITALS: TEMP 97.6
[2023-01-08] MEDS: BACLOFEN 20 MG TABLET GT SCH ×4 (08:45→20:22)
[2023-01-08] MEDS: ACIDOPHILUS/BULGARICUS CHEW TAB GT SCH ×2 (08:45→20:22)
[2023-01-08] MEDS: METOPROLOL TARTRATE 50 MG TABLET GT SCH ×2 (08:46→20:24)
[2023-01-08] MEDS: SERTRALINE HCL 50 MG TABLET GT SCH (08:46)
[2023-01-08] MEDS: MINERAL OIL/PETROLATUM,WHITE 57 GM TUBE TP SCH (08:48)
[2023-01-08] MEDS: KETOCONAZOLE 2% SHAMPOO 120 ML BOTTLE TP SCH (08:48)
[2023-01-08] MEDS: REMEDY ESSENTIAL ZINC PASTE 113 GM TOP SCH ×2 (08:48→20:24)
[2023-01-08] MEDS: SIMETHICONE 80 MG TAB.CHEW GT SCH ×3 (08:48→16:11)
[2023-01-08 10:30] VITALS: O2SAT 99
[2023-01-08 19:05] VITALS: O2SAT 99
[2023-01-08 19:52] VITALS: TEMP 98.5
[2023-01-08 19:53] VITALS: TEMP 98.5
[2023-01-08] MEDS: ASCORBIC ACID 500 MG TABLET GT SCH (20:24)
[2023-01-08] MEDS: TRIAMCINOLONE ACET 0.1% OINT 15 GM TUBE TP SCH (20:24)
[2023-01-09] MEDS: OMEPRAZOLE 20 MG CAPSULE.DR GT SCH (05:48)
[2023-01-09] MEDS: GLUCERNA 1.2 1000ML LIQUID GT PRN (06:42)
[2023-01-09 07:19] VITALS: TEMP 97.9
[2023-01-09] MEDS: ACIDOPHILUS/BULGARICUS CHEW TAB GT SCH ×2 (08:02→20:40)
[2023-01-09] MEDS: BACLOFEN 20 MG TABLET GT SCH ×4 (08:02→20:40)
[2023-01-09] MEDS: METOPROLOL TARTRATE 50 MG TABLET GT SCH ×2 (08:03→20:41)
[2023-01-09] MEDS: SERTRALINE HCL 50 MG TABLET GT SCH (08:03)
[2023-01-09] MEDS: REMEDY ESSENTIAL ZINC PASTE 113 GM TOP SCH ×2 (08:03→20:41)
[2023-01-09] MEDS: MINERAL OIL/PETROLATUM,WHITE 57 GM TUBE TP SCH (08:03)
[2023-01-09] MEDS: SIMETHICONE 80 MG TAB.CHEW GT SCH ×3 (08:03→16:33)
[2023-01-09] MEDS: HYDROGEN PEROXIDE 3% 118 ML BOTTLE TP SCH ×2 (09:04→19:13)
[2023-01-09 10:25] VITALS: O2SAT 99
[2023-01-09 19:35] VITALS: O2SAT 99
[2023-01-09 19:45] VITALS: TEMP 98
[2023-01-09] MEDS: ASCORBIC ACID 500 MG TABLET GT SCH (20:41)
[2023-01-09] MEDS: MULTIVIT, IRON, MIN NO. 8, FA TABLET GT SCH (20:41)
[2023-01-10] MEDS: OMEPRAZOLE 20 MG CAPSULE.DR GT SCH (05:12)
[2023-01-10 07:21] VITALS: TEMP 97.8
[2023-01-10] MEDS: HYDROGEN PEROXIDE 3% 118 ML BOTTLE TP SCH ×2 (09:06→21:36)
[2023-01-10] MEDS: ACIDOPHILUS/BULGARICUS CHEW TAB GT SCH ×2 (09:18→21:00)
[2023-01-10] MEDS: BACLOFEN 20 MG TABLET GT SCH ×4 (09:20→21:00)
[2023-01-10] MEDS: REMEDY ESSENTIAL ZINC PASTE 113 GM TOP SCH ×2 (09:20→21:00)
[2023-01-10] MEDS: MINERAL OIL/PETROLATUM,WHITE 57 GM TUBE TP SCH (09:20)
[2023-01-10] MEDS: SIMETHICONE 80 MG TAB.CHEW GT SCH ×3 (09:20→17:34)
[2023-01-10] MEDS: SERTRALINE HCL 50 MG TABLET GT SCH (09:20)
[2023-01-10] MEDS: METOPROLOL TARTRATE 50 MG TABLET GT SCH ×2 (09:20→21:00)
[2023-01-10 09:30] VITALS: O2SAT 99
[2023-01-10 20:00] VITALS: TEMP 97.6
[2023-01-10] MEDS: ASCORBIC ACID 500 MG TABLET GT SCH (21:00)
[2023-01-11 00:07] VITALS: O2SAT 98
[2023-01-11] MEDS: OMEPRAZOLE 20 MG CAPSULE.DR GT SCH (05:41)
[2023-01-11] MEDS: HYDROGEN PEROXIDE 3% 118 ML BOTTLE TP SCH ×2 (09:00→19:09)
[2023-01-11] MEDS: ACIDOPHILUS/BULGARICUS CHEW TAB GT SCH ×2 (09:26→20:20)
[2023-01-11] MEDS: BACLOFEN 20 MG TABLET GT SCH ×4 (09:26→20:20)
[2023-01-11] MEDS: SERTRALINE HCL 50 MG TABLET GT SCH (09:27)
[2023-01-11] MEDS: REMEDY ESSENTIAL ZINC PASTE 113 GM TOP SCH ×2 (09:27→20:20)
[2023-01-11] MEDS: SIMETHICONE 80 MG TAB.CHEW GT SCH ×3 (09:27→17:12)
[2023-01-11] MEDS: MINERAL OIL/PETROLATUM,WHITE 57 GM TUBE TP SCH (09:27)
[2023-01-11] MEDS: KETOCONAZOLE 2% SHAMPOO 120 ML BOTTLE TP SCH (09:28)
[2023-01-11] MEDS: METOPROLOL TARTRATE 50 MG TABLET GT SCH ×2 (09:28→20:20)
[2023-01-11 19:35] VITALS: O2SAT 99
[2023-01-11 20:00] VITALS: TEMP 97.1
[2023-01-11] MEDS: MULTIVIT, IRON, MIN NO. 8, FA TABLET GT SCH (20:20)
[2023-01-11] MEDS: ASCORBIC ACID 500 MG TABLET GT SCH (20:20)
[2023-01-11] MEDS: TRIAMCINOLONE ACET 0.1% OINT 15 GM TUBE TP SCH (20:21)
[2023-01-12] MEDS: OMEPRAZOLE 20 MG CAPSULE.DR GT SCH (05:07)
[2023-01-12 07:55] VITALS: TEMP 97.9
[2023-01-12] MEDS: ACIDOPHILUS/BULGARICUS CHEW TAB GT SCH ×2 (08:10→21:47)
[2023-01-12] MEDS: BACLOFEN 20 MG TABLET GT SCH ×4 (08:10→21:00)
[2023-01-12] MEDS: REMEDY ESSENTIAL ZINC PASTE 113 GM TOP SCH ×2 (08:11→21:00)
[2023-01-12] MEDS: SERTRALINE HCL 50 MG TABLET GT SCH (08:11)
[2023-01-12] MEDS: MINERAL OIL/PETROLATUM,WHITE 57 GM TUBE TP SCH (08:11)
[2023-01-12] MEDS: METOPROLOL TARTRATE 50 MG TABLET GT SCH ×2 (08:11→21:00)
[2023-01-12] MEDS: SIMETHICONE 80 MG TAB.CHEW GT SCH ×3 (08:11→16:24)
[2023-01-12] MEDS: HYDROGEN PEROXIDE 3% 118 ML BOTTLE TP SCH ×2 (08:21→19:18)
[2023-01-12 10:40] VITALS: O2SAT 99
[2023-01-12] MEDS: GLUCERNA 1.2 1000ML LIQUID GT PRN (16:19)
[2023-01-12 19:50] VITALS: O2SAT 99
[2023-01-12 20:00] VITALS: TEMP 97.6
[2023-01-12] MEDS: ASCORBIC ACID 500 MG TABLET GT SCH (21:00)
[2023-01-13] MEDS: OMEPRAZOLE 20 MG CAPSULE.DR GT SCH (06:00)
[2023-01-13 08:08] VITALS: TEMP 97.4
[2023-01-13] MEDS: HYDROGEN PEROXIDE 3% 118 ML BOTTLE TP SCH ×2 (08:23→19:06)
[2023-01-13] MEDS: BACLOFEN 20 MG TABLET GT SCH ×4 (09:36→21:25)
[2023-01-13] MEDS: ACIDOPHILUS/BULGARICUS CHEW TAB GT SCH ×2 (09:36→21:24)
[2023-01-13] MEDS: MINERAL OIL/PETROLATUM,WHITE 57 GM TUBE TP SCH (09:37)
[2023-01-13] MEDS: METOPROLOL TARTRATE 50 MG TABLET GT SCH ×2 (09:37→21:25)
[2023-01-13] MEDS: REMEDY ESSENTIAL ZINC PASTE 113 GM TOP SCH ×2 (09:37→21:40)
[2023-01-13] MEDS: SIMETHICONE 80 MG TAB.CHEW GT SCH ×3 (09:37→17:19)
[2023-01-13] MEDS: SERTRALINE HCL 50 MG TABLET GT SCH (09:37)
[2023-01-13 10:30] VITALS: O2SAT 98
[2023-01-13] MEDS: GLUCERNA 1.2 1000ML LIQUID GT PRN (18:49)
[2023-01-13 19:14] VITALS: O2SAT 99
[2023-01-13 20:00] VITALS: TEMP 98.4
[2023-01-13] MEDS: ACETAMINOPHEN 650 MG/20 ML UDC- SA PATIENTS-PAIN ONLY GT PRN (21:26)
[2023-01-13] MEDS: ASCORBIC ACID 500 MG TABLET GT SCH (21:26)
[2023-01-13] MEDS: MULTIVIT, IRON, MIN NO. 8, FA TABLET GT SCH (21:26)
[2023-01-14] MEDS: OMEPRAZOLE 20 MG CAPSULE.DR GT SCH (05:26)
[2023-01-14 07:56] VITALS: TEMP 97.6
[2023-01-14] MEDS: HYDROGEN PEROXIDE 3% 118 ML BOTTLE TP SCH ×2 (08:16→19:01)
[2023-01-14] MEDS: ACIDOPHILUS/BULGARICUS CHEW TAB GT SCH ×2 (09:26→20:10)
[2023-01-14] MEDS: BACLOFEN 20 MG TABLET GT SCH ×4 (09:26→20:10)
[2023-01-14] MEDS: SERTRALINE HCL 50 MG TABLET GT SCH (09:27)
[2023-01-14] MEDS: REMEDY ESSENTIAL ZINC PASTE 113 GM TOP SCH ×2 (09:27→20:11)
[2023-01-14] MEDS: METOPROLOL TARTRATE 50 MG TABLET GT SCH ×2 (09:27→20:11)
[2023-01-14] MEDS: SIMETHICONE 80 MG TAB.CHEW GT SCH ×3 (09:27→17:25)
[2023-01-14] MEDS: MINERAL OIL/PETROLATUM,WHITE 57 GM TUBE TP SCH (09:27)
[2023-01-14 10:30] VITALS: O2SAT 98
[2023-01-14 19:13] VITALS: O2SAT 99
[2023-01-14 20:00] VITALS: TEMP 99.1
[2023-01-14] MEDS: ASCORBIC ACID 500 MG TABLET GT SCH (20:11)
[2023-01-14] MEDS: GLUCERNA 1.2 1000ML LIQUID GT PRN (22:51)
[2023-01-15] MEDS: OMEPRAZOLE 20 MG CAPSULE.DR GT SCH (05:23)
[2023-01-15] MEDS: HYDROGEN PEROXIDE 3% 118 ML BOTTLE TP SCH ×2 (06:59→18:49)
[2023-01-15 07:26] VITALS: TEMP 97.8
[2023-01-15] MEDS: BACLOFEN 20 MG TABLET GT SCH ×4 (08:35→20:25)
[2023-01-15] MEDS: ACIDOPHILUS/BULGARICUS CHEW TAB GT SCH ×2 (08:35→20:25)
[2023-01-15] MEDS: SIMETHICONE 80 MG TAB.CHEW GT SCH ×3 (08:36→17:02)
[2023-01-15] MEDS: SERTRALINE HCL 50 MG TABLET GT SCH (08:36)
[2023-01-15] MEDS: MINERAL OIL/PETROLATUM,WHITE 57 GM TUBE TP SCH (08:36)
[2023-01-15] MEDS: METOPROLOL TARTRATE 50 MG TABLET GT SCH ×2 (08:36→20:25)
[2023-01-15] MEDS: KETOCONAZOLE 2% SHAMPOO 120 ML BOTTLE TP SCH (08:36)
[2023-01-15] MEDS: REMEDY ESSENTIAL ZINC PASTE 113 GM TOP SCH ×2 (08:36→20:26)
[2023-01-15 08:48] VITALS: O2SAT 98
[2023-01-15] MEDS: GLUCERNA 1.2 1000ML LIQUID GT PRN (17:03)
[2023-01-15 19:54] VITALS: TEMP 98.2
[2023-01-15 19:55] VITALS: O2SAT 99
[2023-01-15] MEDS: MULTIVIT, IRON, MIN NO. 8, FA TABLET GT SCH (20:25)
[2023-01-15] MEDS: TRIAMCINOLONE ACET 0.1% OINT 15 GM TUBE TP SCH (20:26)
[2023-01-15] MEDS: ASCORBIC ACID 500 MG TABLET GT SCH (20:26)
[2023-01-16] MEDS: OMEPRAZOLE 20 MG CAPSULE.DR GT SCH (05:37)
[2023-01-16] MEDS: HYDROGEN PEROXIDE 3% 118 ML BOTTLE TP SCH ×2 (07:11→19:06)
[2023-01-16 07:19] VITALS: TEMP 98
[2023-01-16] MEDS: ACIDOPHILUS/BULGARICUS CHEW TAB GT SCH ×2 (09:36→20:20)
[2023-01-16] MEDS: BACLOFEN 20 MG TABLET GT SCH ×4 (09:36→20:20)
[2023-01-16] MEDS: SIMETHICONE 80 MG TAB.CHEW GT SCH ×3 (09:37→17:00)
[2023-01-16] MEDS: SERTRALINE HCL 50 MG TABLET GT SCH (09:37)
[2023-01-16] MEDS: METOPROLOL TARTRATE 50 MG TABLET GT SCH ×2 (09:37→20:21)
[2023-01-16] MEDS: MINERAL OIL/PETROLATUM,WHITE 57 GM TUBE TP SCH (09:37)
[2023-01-16] MEDS: REMEDY ESSENTIAL ZINC PASTE 113 GM TOP SCH ×2 (09:37→20:21)
[2023-01-16 10:40] VITALS: O2SAT 98
[2023-01-16 19:30] VITALS: O2SAT 99
[2023-01-16 20:13] VITALS: TEMP 98.4
[2023-01-16] MEDS: ASCORBIC ACID 500 MG TABLET GT SCH (20:21)
[2023-01-17] MEDS: GLUCERNA 1.2 1000ML LIQUID GT PRN (05:04)
[2023-01-17] MEDS: OMEPRAZOLE 20 MG CAPSULE.DR GT SCH (05:04)
[2023-01-17 07:20] VITALS: TEMP 98.5
[2023-01-17] MEDS: HYDROGEN PEROXIDE 3% 118 ML BOTTLE TP SCH ×2 (08:47→20:57)
[2023-01-17] MEDS: ACIDOPHILUS/BULGARICUS CHEW TAB GT SCH ×2 (09:55→20:08)
[2023-01-17] MEDS: BACLOFEN 20 MG TABLET GT SCH ×4 (09:55→20:08)
[2023-01-17] MEDS: SIMETHICONE 80 MG TAB.CHEW GT SCH ×3 (09:56→17:11)
[2023-01-17] MEDS: METOPROLOL TARTRATE 50 MG TABLET GT SCH ×2 (09:56→20:08)
[2023-01-17] MEDS: SERTRALINE HCL 50 MG TABLET GT SCH (09:56)
[2023-01-17] MEDS: MINERAL OIL/PETROLATUM,WHITE 57 GM TUBE TP SCH (09:57)
[2023-01-17] MEDS: REMEDY ESSENTIAL ZINC PASTE 113 GM TOP SCH ×2 (09:57→20:09)
[2023-01-17 14:09] VITALS: O2SAT 99
[2023-01-17 19:50] VITALS: TEMP 97.6
[2023-01-17 20:00] VITALS: O2SAT 99
[2023-01-17] MEDS: ASCORBIC ACID 500 MG TABLET GT SCH (20:09)
[2023-01-17] MEDS: MULTIVIT, IRON, MIN NO. 8, FA TABLET GT SCH (20:09)
[2023-01-18] MEDS: OMEPRAZOLE 20 MG CAPSULE.DR GT SCH (05:05)
[2023-01-18 07:42] VITALS: BP 126/78; TEMP 98.2; O2SAT 100
[2023-01-18 07:50] VITALS: O2SAT 97
[2023-01-18] MEDS: REMEDY ESSENTIAL ZINC PASTE 113 GM TOP SCH ×2 (09:00→20:11)
[2023-01-18] MEDS: MINERAL OIL/PETROLATUM,WHITE 57 GM TUBE TP SCH (09:00)
[2023-01-18] MEDS: KETOCONAZOLE 2% SHAMPOO 120 ML BOTTLE TP SCH (09:00)
[2023-01-18] MEDS: METOPROLOL TARTRATE 50 MG TABLET GT SCH ×2 (09:00→20:54)
[2023-01-18] MEDS: SERTRALINE HCL 50 MG TABLET GT SCH (09:00)
[2023-01-18] MEDS: ACIDOPHILUS/BULGARICUS CHEW TAB GT SCH ×2 (09:00→20:10)
[2023-01-18] MEDS: SIMETHICONE 80 MG TAB.CHEW GT SCH ×3 (09:00→17:22)
[2023-01-18] MEDS: HYDROGEN PEROXIDE 3% 118 ML BOTTLE TP SCH ×2 (09:00→19:13)
[2023-01-18] MEDS: BACLOFEN 20 MG TABLET GT SCH ×4 (09:00→20:10)
[2023-01-18 14:21] VITALS: O2SAT 97
[2023-01-18 19:25] VITALS: O2SAT 99
[2023-01-18] MEDS: ASCORBIC ACID 500 MG TABLET GT SCH (20:11)
[2023-01-18] MEDS: TRIAMCINOLONE ACET 0.1% OINT 15 GM TUBE TP SCH (20:11)
[2023-01-18 21:01] VITALS: TEMP 97.8
[2023-01-19] MEDS: OMEPRAZOLE 20 MG CAPSULE.DR GT SCH (05:16)
[2023-01-19 07:47] VITALS: TEMP 97.6
[2023-01-19] MEDS: HYDROGEN PEROXIDE 3% 118 ML BOTTLE TP SCH ×2 (08:37→19:26)
[2023-01-19] MEDS: ACIDOPHILUS/BULGARICUS CHEW TAB GT SCH ×2 (09:24→20:04)
[2023-01-19] MEDS: BACLOFEN 20 MG TABLET GT SCH ×4 (09:25→20:09)
[2023-01-19] MEDS: SIMETHICONE 80 MG TAB.CHEW GT SCH ×3 (09:26→16:21)
[2023-01-19] MEDS: SERTRALINE HCL 50 MG TABLET GT SCH (09:26)
[2023-01-19] MEDS: MINERAL OIL/PETROLATUM,WHITE 57 GM TUBE TP SCH (09:26)
[2023-01-19] MEDS: METOPROLOL TARTRATE 50 MG TABLET GT SCH ×2 (09:26→20:41)
[2023-01-19] MEDS: REMEDY ESSENTIAL ZINC PASTE 113 GM TOP SCH ×2 (09:26→20:10)
[2023-01-19 10:40] VITALS: O2SAT 97
[2023-01-19] MEDS: GLUCERNA 1.2 1000ML LIQUID GT PRN (13:11)
[2023-01-19 19:30] VITALS: O2SAT 99
[2023-01-19 20:00] VITALS: TEMP 98.4
[2023-01-19] MEDS: MULTIVIT, IRON, MIN NO. 8, FA TABLET GT SCH (20:10)
[2023-01-19] MEDS: ASCORBIC ACID 500 MG TABLET GT SCH (20:10)
[2023-01-20] MEDS: OMEPRAZOLE 20 MG CAPSULE.DR GT SCH (05:46)
[2023-01-20 07:05] VITALS: O2SAT 97
[2023-01-20] MEDS: HYDROGEN PEROXIDE 3% 118 ML BOTTLE TP SCH ×2 (07:13→19:38)
[2023-01-20 07:29] VITALS: TEMP 98
[2023-01-20] MEDS: ACIDOPHILUS/BULGARICUS CHEW TAB GT SCH ×3 (08:14→20:55)
[2023-01-20] MEDS: BACLOFEN 20 MG TABLET GT SCH ×5 (08:14→20:55)
[2023-01-20] MEDS: SIMETHICONE 80 MG TAB.CHEW GT SCH ×3 (08:15→16:59)
[2023-01-20] MEDS: SERTRALINE HCL 50 MG TABLET GT SCH (08:15)
[2023-01-20] MEDS: REMEDY ESSENTIAL ZINC PASTE 113 GM TOP SCH ×2 (08:15→20:51)
[2023-01-20] MEDS: MINERAL OIL/PETROLATUM,WHITE 57 GM TUBE TP SCH (08:15)
[2023-01-20] MEDS: METOPROLOL TARTRATE 50 MG TABLET GT SCH ×3 (08:15→20:55)
[2023-01-20] MEDS: GLUCERNA 1.2 1000ML LIQUID GT PRN (17:14)
[2023-01-20 20:00] VITALS: TEMP 98.3
[2023-01-20 20:25] VITALS: O2SAT 99
[2023-01-20] MEDS: ASCORBIC ACID 500 MG TABLET GT SCH (20:51)
[2023-01-20] MEDS: ACETAMINOPHEN 650 MG/20 ML UDC- SA PATIENTS-PAIN ONLY GT PRN (20:54)
[2023-01-21] MEDS: OMEPRAZOLE 20 MG CAPSULE.DR GT SCH (05:06)
[2023-01-21 07:25] VITALS: TEMP 97.7
[2023-01-21] MEDS: HYDROGEN PEROXIDE 3% 118 ML BOTTLE TP SCH ×2 (08:00→20:38)
[2023-01-21] MEDS: BACLOFEN 20 MG TABLET GT SCH ×4 (08:18→20:36)
[2023-01-21] MEDS: ACIDOPHILUS/BULGARICUS CHEW TAB GT SCH ×2 (08:18→20:36)
[2023-01-21] MEDS: MINERAL OIL/PETROLATUM,WHITE 57 GM TUBE TP SCH (08:19)
[2023-01-21] MEDS: METOPROLOL TARTRATE 50 MG TABLET GT SCH ×2 (08:19→20:36)
[2023-01-21] MEDS: SIMETHICONE 80 MG TAB.CHEW GT SCH ×3 (08:19→16:18)
[2023-01-21] MEDS: REMEDY ESSENTIAL ZINC PASTE 113 GM TOP SCH ×2 (08:19→20:38)
[2023-01-21] MEDS: SERTRALINE HCL 50 MG TABLET GT SCH (08:19)
[2023-01-21 12:00] VITALS: O2SAT 99
[2023-01-21 19:25] VITALS: O2SAT 99
[2023-01-21 20:30] VITALS: TEMP 97.7
[2023-01-21] MEDS: MULTIVIT, IRON, MIN NO. 8, FA TABLET GT SCH (20:38)
[2023-01-21] MEDS: ASCORBIC ACID 500 MG TABLET GT SCH (20:38)
[2023-01-21] MEDS: ACETAMINOPHEN 650 MG/20 ML UDC- SA PATIENTS-PAIN ONLY GT PRN (20:58)
[2023-01-21] MEDS: GLUCERNA 1.2 1000ML LIQUID GT PRN (22:52)
[2023-01-22] MEDS: OMEPRAZOLE 20 MG CAPSULE.DR GT SCH (05:47)
[2023-01-22] MEDS: HYDROGEN PEROXIDE 3% 118 ML BOTTLE TP SCH ×2 (07:06→19:02)
[2023-01-22 07:21] VITALS: TEMP 97.6
[2023-01-22] MEDS: BACLOFEN 20 MG TABLET GT SCH ×4 (08:09→20:11)
[2023-01-22] MEDS: ACIDOPHILUS/BULGARICUS CHEW TAB GT SCH ×2 (08:09→20:11)
[2023-01-22] MEDS: METOPROLOL TARTRATE 50 MG TABLET GT SCH ×2 (08:14→20:11)
[2023-01-22] MEDS: SERTRALINE HCL 50 MG TABLET GT SCH (08:14)
[2023-01-22] MEDS: MINERAL OIL/PETROLATUM,WHITE 57 GM TUBE TP SCH (08:14)
[2023-01-22] MEDS: SIMETHICONE 80 MG TAB.CHEW GT SCH ×3 (08:14→17:13)
[2023-01-22] MEDS: KETOCONAZOLE 2% SHAMPOO 120 ML BOTTLE TP SCH (08:14)
[2023-01-22] MEDS: REMEDY ESSENTIAL ZINC PASTE 113 GM TOP SCH ×2 (08:14→20:11)
[2023-01-22 10:30] VITALS: O2SAT 98
[2023-01-22 19:45] VITALS: O2SAT 99
[2023-01-22] MEDS: ASCORBIC ACID 500 MG TABLET GT SCH (20:11)
[2023-01-22] MEDS: TRIAMCINOLONE ACET 0.1% OINT 15 GM TUBE TP SCH (20:11)
[2023-01-22 22:47] VITALS: TEMP 98.4
[2023-01-23] MEDS: GLUCERNA 1.2 1000ML LIQUID GT PRN (05:10)
[2023-01-23] MEDS: OMEPRAZOLE 20 MG CAPSULE.DR GT SCH (05:10)
[2023-01-23 07:16] VITALS: O2SAT 97
[2023-01-23 07:18] VITALS: TEMP 97.5
[2023-01-23] MEDS: HYDROGEN PEROXIDE 3% 118 ML BOTTLE TP SCH ×2 (08:28→19:09)
[2023-01-23] MEDS: ACIDOPHILUS/BULGARICUS CHEW TAB GT SCH ×2 (08:33→20:10)
[2023-01-23] MEDS: SIMETHICONE 80 MG TAB.CHEW GT SCH ×3 (08:34→16:47)
[2023-01-23] MEDS: BACLOFEN 20 MG TABLET GT SCH ×4 (08:34→20:10)
[2023-01-23] MEDS: SERTRALINE HCL 50 MG TABLET GT SCH (08:34)
[2023-01-23] MEDS: METOPROLOL TARTRATE 50 MG TABLET GT SCH ×2 (08:38→20:11)
[2023-01-23] MEDS: REMEDY ESSENTIAL ZINC PASTE 113 GM TOP SCH ×2 (08:39→20:11)
[2023-01-23] MEDS: MINERAL OIL/PETROLATUM,WHITE 57 GM TUBE TP SCH (08:39)
[2023-01-23 15:26] VITALS: O2SAT 97
[2023-01-23 19:14] VITALS: O2SAT 99
[2023-01-23] MEDS: MULTIVIT, IRON, MIN NO. 8, FA TABLET GT SCH (20:11)
[2023-01-23] MEDS: ASCORBIC ACID 500 MG TABLET GT SCH (20:11)
[2023-01-23 20:43] VITALS: TEMP 97.1
[2023-01-24] MEDS: OMEPRAZOLE 20 MG CAPSULE.DR GT SCH (05:03)
[2023-01-24] MEDS: HYDROGEN PEROXIDE 3% 118 ML BOTTLE TP SCH ×3 (07:13→19:22)
[2023-01-24 07:24] VITALS: TEMP 98
[2023-01-24] MEDS: ACIDOPHILUS/BULGARICUS CHEW TAB GT SCH ×2 (08:20→21:26)
[2023-01-24] MEDS: SERTRALINE HCL 50 MG TABLET GT SCH (08:21)
[2023-01-24] MEDS: BACLOFEN 20 MG TABLET GT SCH ×4 (08:21→21:26)
[2023-01-24] MEDS: SIMETHICONE 80 MG TAB.CHEW GT SCH ×3 (08:24→17:31)
[2023-01-24] MEDS: METOPROLOL TARTRATE 50 MG TABLET GT SCH ×2 (08:25→21:26)
[2023-01-24] MEDS: REMEDY ESSENTIAL ZINC PASTE 113 GM TOP SCH ×2 (08:26→21:26)
[2023-01-24] MEDS: MINERAL OIL/PETROLATUM,WHITE 57 GM TUBE TP SCH (08:26)
[2023-01-24 10:19] VITALS: O2SAT 97
[2023-01-24 15:05] VITALS: O2SAT 97
[2023-01-24] MEDS: ASCORBIC ACID 500 MG TABLET GT SCH (21:26)
[2023-01-24 23:34] VITALS: TEMP 97.6
[2023-01-25 02:04] VITALS: O2SAT 98
[2023-01-25] MEDS: OMEPRAZOLE 20 MG CAPSULE.DR GT SCH (05:15)
[2023-01-25 07:42] VITALS: TEMP 97
[2023-01-25 08:30] VITALS: O2SAT 97
[2023-01-25] MEDS: SIMETHICONE 80 MG TAB.CHEW GT SCH ×3 (09:17→16:49)
[2023-01-25] MEDS: METOPROLOL TARTRATE 50 MG TABLET GT SCH ×2 (09:17→20:28)
[2023-01-25] MEDS: BACLOFEN 20 MG TABLET GT SCH ×4 (09:17→20:27)
[2023-01-25] MEDS: ACIDOPHILUS/BULGARICUS CHEW TAB GT SCH ×2 (09:17→20:27)
[2023-01-25] MEDS: SERTRALINE HCL 50 MG TABLET GT SCH (09:18)
[2023-01-25] MEDS: REMEDY ESSENTIAL ZINC PASTE 113 GM TOP SCH ×2 (09:18→20:28)
[2023-01-25] MEDS: MINERAL OIL/PETROLATUM,WHITE 57 GM TUBE TP SCH (09:18)
[2023-01-25] MEDS: KETOCONAZOLE 2% SHAMPOO 120 ML BOTTLE TP SCH (09:18)
[2023-01-25 16:28] VITALS: O2SAT 97
[2023-01-25 19:15] VITALS: O2SAT 98
[2023-01-25] MEDS: HYDROGEN PEROXIDE 3% 118 ML BOTTLE TP SCH (19:24)
[2023-01-25] MEDS: MULTIVIT, IRON, MIN NO. 8, FA TABLET GT SCH (20:28)
[2023-01-25] MEDS: TRIAMCINOLONE ACET 0.1% OINT 15 GM TUBE TP SCH (20:28)
[2023-01-25] MEDS: ASCORBIC ACID 500 MG TABLET GT SCH (20:28)
[2023-01-25 21:31] VITALS: TEMP 97.8
[2023-01-26] MEDS: GLUCERNA 1.2 1000ML LIQUID GT PRN (05:03)
[2023-01-26] MEDS: OMEPRAZOLE 20 MG CAPSULE.DR GT SCH (05:03)
[2023-01-26 07:30] VITALS: TEMP 97.7
[2023-01-26] MEDS: HYDROGEN PEROXIDE 3% 118 ML BOTTLE TP SCH ×2 (07:46→21:08)
[2023-01-26] MEDS: BACLOFEN 20 MG TABLET GT SCH ×4 (09:10→21:19)
[2023-01-26] MEDS: METOPROLOL TARTRATE 50 MG TABLET GT SCH ×2 (09:10→21:19)
[2023-01-26] MEDS: ACIDOPHILUS/BULGARICUS CHEW TAB GT SCH ×2 (09:10→21:19)
[2023-01-26] MEDS: SERTRALINE HCL 50 MG TABLET GT SCH (09:11)
[2023-01-26] MEDS: MINERAL OIL/PETROLATUM,WHITE 57 GM TUBE TP SCH (09:11)
[2023-01-26] MEDS: REMEDY ESSENTIAL ZINC PASTE 113 GM TOP SCH ×2 (09:11→21:20)
[2023-01-26] MEDS: SIMETHICONE 80 MG TAB.CHEW GT SCH ×3 (09:11→17:10)
[2023-01-26 10:20] VITALS: O2SAT 97
[2023-01-26 20:00] VITALS: TEMP 97.6
[2023-01-26 20:05] VITALS: O2SAT 98
[2023-01-26] MEDS: ASCORBIC ACID 500 MG TABLET GT SCH (21:19)
[2023-01-26] MEDS: ACETAMINOPHEN 650 MG/20 ML UDC- SA PATIENTS-PAIN ONLY GT PRN (21:21)
[2023-01-27] MEDS: GLUCERNA 1.2 1000ML LIQUID GT PRN (04:43)
[2023-01-27] MEDS: OMEPRAZOLE 20 MG CAPSULE.DR GT SCH (05:01)
[2023-01-27 07:30] VITALS: TEMP 97.7
[2023-01-27] MEDS: HYDROGEN PEROXIDE 3% 118 ML BOTTLE TP SCH ×2 (07:31→21:47)
[2023-01-27] MEDS: ACIDOPHILUS/BULGARICUS CHEW TAB GT SCH ×2 (09:15→20:41)
[2023-01-27] MEDS: BACLOFEN 20 MG TABLET GT SCH ×4 (09:15→20:41)
[2023-01-27] MEDS: SIMETHICONE 80 MG TAB.CHEW GT SCH ×3 (09:16→17:34)
[2023-01-27] MEDS: METOPROLOL TARTRATE 50 MG TABLET GT SCH ×2 (09:16→20:41)
[2023-01-27] MEDS: SERTRALINE HCL 50 MG TABLET GT SCH (09:17)
[2023-01-27] MEDS: REMEDY ESSENTIAL ZINC PASTE 113 GM TOP SCH ×2 (09:17→20:42)
[2023-01-27] MEDS: MINERAL OIL/PETROLATUM,WHITE 57 GM TUBE TP SCH (09:17)
[2023-01-27 10:40] VITALS: O2SAT 98
[2023-01-27 20:00] VITALS: TEMP 97.2
[2023-01-27] MEDS: ASCORBIC ACID 500 MG TABLET GT SCH (20:42)
[2023-01-27] MEDS: MULTIVIT, IRON, MIN NO. 8, FA TABLET GT SCH (20:42)
[2023-01-28 00:25] VITALS: O2SAT 99
[2023-01-28] MEDS: GLUCERNA 1.2 1000ML LIQUID GT PRN (04:15)
[2023-01-28] MEDS: OMEPRAZOLE 20 MG CAPSULE.DR GT SCH (05:25)
[2023-01-28 07:37] VITALS: TEMP 97.9
[2023-01-28 08:10] VITALS: O2SAT 99
[2023-01-28] MEDS: ACIDOPHILUS/BULGARICUS CHEW TAB GT SCH ×2 (08:18→20:51)
[2023-01-28] MEDS: BACLOFEN 20 MG TABLET GT SCH ×4 (08:18→20:51)
[2023-01-28] MEDS: SERTRALINE HCL 50 MG TABLET GT SCH (08:19)
[2023-01-28] MEDS: METOPROLOL TARTRATE 50 MG TABLET GT SCH ×2 (08:19→20:51)
[2023-01-28] MEDS: SIMETHICONE 80 MG TAB.CHEW GT SCH ×3 (08:19→17:54)
[2023-01-28] MEDS: REMEDY ESSENTIAL ZINC PASTE 113 GM TOP SCH ×2 (08:19→20:53)
[2023-01-28] MEDS: MINERAL OIL/PETROLATUM,WHITE 57 GM TUBE TP SCH (08:19)
[2023-01-28] MEDS: HYDROGEN PEROXIDE 3% 118 ML BOTTLE TP SCH ×2 (09:19→19:07)
[2023-01-28 20:36] VITALS: O2SAT 98
[2023-01-28] MEDS: ASCORBIC ACID 500 MG TABLET GT SCH (20:53)
[2023-01-29] VITALS (7 sets, daily range): TEMP 97.8–101.4; O2SAT 97–98
[2023-01-29] MEDS: GLUCERNA 1.2 1000ML LIQUID GT PRN (03:45)
[2023-01-29] MEDS: OMEPRAZOLE 20 MG CAPSULE.DR GT SCH (06:15)
[2023-01-29] MEDS: KETOCONAZOLE 2% SHAMPOO 120 ML BOTTLE TP SCH (09:00)
[2023-01-29] MEDS: SERTRALINE HCL 50 MG TABLET GT SCH (09:00)
[2023-01-29] MEDS: ACIDOPHILUS/BULGARICUS CHEW TAB GT SCH ×2 (09:00→20:32)
[2023-01-29] MEDS: REMEDY ESSENTIAL ZINC PASTE 113 GM TOP SCH ×2 (09:00→20:33)
[2023-01-29] MEDS: SIMETHICONE 80 MG TAB.CHEW GT SCH ×3 (09:00→17:02)
[2023-01-29] MEDS: METOPROLOL TARTRATE 50 MG TABLET GT SCH ×2 (09:00→20:33)
[2023-01-29] MEDS: MINERAL OIL/PETROLATUM,WHITE 57 GM TUBE TP SCH (09:00)
[2023-01-29] MEDS: BACLOFEN 20 MG TABLET GT SCH ×4 (09:00→20:33)
[2023-01-29] MEDS: HYDROGEN PEROXIDE 3% 118 ML BOTTLE TP SCH ×2 (09:00→18:44)
[2023-01-29] MEDS: TRIAMCINOLONE ACET 0.1% OINT 15 GM TUBE TP SCH (20:33)
[2023-01-29] MEDS: MULTIVIT, IRON, MIN NO. 8, FA TABLET GT SCH (20:33)
[2023-01-29] MEDS: ASCORBIC ACID 500 MG TABLET GT SCH (20:33)
[2023-01-30] MEDS: OMEPRAZOLE 20 MG CAPSULE.DR GT SCH (05:33)
[2023-01-30] MEDS: GLUCERNA 1.2 1000ML LIQUID GT PRN (06:36)
[2023-01-30 07:19] VITALS: TEMP 100
[2023-01-30] MEDS: HYDROGEN PEROXIDE 3% 118 ML BOTTLE TP SCH ×2 (07:33→19:11)
[2023-01-30] MEDS: BACLOFEN 20 MG TABLET GT SCH ×4 (09:41→20:27)
[2023-01-30] MEDS: ACIDOPHILUS/BULGARICUS CHEW TAB GT SCH ×2 (09:41→20:27)
[2023-01-30] MEDS: SIMETHICONE 80 MG TAB.CHEW GT SCH ×3 (09:42→17:00)
[2023-01-30] MEDS: REMEDY ESSENTIAL ZINC PASTE 113 GM TOP SCH ×2 (09:42→20:28)
[2023-01-30] MEDS: METOPROLOL TARTRATE 50 MG TABLET GT SCH ×2 (09:42→20:28)
[2023-01-30] MEDS: SERTRALINE HCL 50 MG TABLET GT SCH (09:42)
[2023-01-30] MEDS: MINERAL OIL/PETROLATUM,WHITE 57 GM TUBE TP SCH (09:44)
[2023-01-30 10:20] VITALS: O2SAT 97
[2023-01-30 10:49] LABS: BASOPHILS % (AUTO) 0.2 % (0.0-2.0); DIFFERENTIAL COMMENT 1; HEMOGLOBIN 11.8 g/dL (10.9-14.3); LYMPHOCYTES # (AUTO) 0.6 K/uL (0.8-4.8); LYMPHOCYTES % (AUTO) 5.2 % (20.5-51.5); MEAN CORPUSCULAR HGB CONC 31 g/dL (32.3-35.6); MONOCYTES # (AUTO) 0.4 K/uL (0.1-1.30); MONOCYTES % (AUTO) 3.6 % (0.0-11.0); NEUTROPHILS # (AUTO) 10.4 K/uL (1.8-8.9); PLATELET COUNT (AUTO) 194 K/uL (179-408); RED BLOOD CELL COUNT(AUTO) 5.35 MIL/uL (3.63-4.92); RED CELL DISTRIBUTION WIDTH 16.3 % (12.3-17.7); WHITE BLOOD COUNT (AUTO) 11.5 K/uL (3.8-11.8)
[2023-01-30 11:07] LABS: CALCIUM 8.3 mg/dL (8.5-10.1); CREATININE 0.7 mg/dL (0.6-1.3); POTASSIUM 3.4 mmol/L (3.5-5.1)
[2023-01-30 12:09] LABS: *BILIRUBIN,URIN NEGATIVE (NEGATIVE); *CLARITY,URINE CLEAR (CLEAR); *COLOR,URINE Other (YELLOW); *KETONES,URINE NEGATIVE (NEGATIVE); *PROTEIN,URINE 1+ (NEGATIVE); *UROBILINOGEN,URINE 0.2 E.U./dl (NORMAL); LEUKOCYTE ESTERASE ,URINE 3+ (NEGATIVE); NITRITE, URINE POSITIVE (NEGATIVE); UGLUCOSE NEGATIVE (NEGATIVE)
[2023-01-30 12:19] LABS: *BLOOD, URINE TRACE (NEGATIVE)
[2023-01-30 12:58] LABS: BACTERIA,URINE MANY /HPF (NONE SEEN); RBC,URINE 0-3 /HPF (0-3); SQUAMOUS EPITHELIAL CELL,UR FEW /HPF (NONE SEEN)
[2023-01-30 20:00] VITALS: TEMP 98.2
[2023-01-30] MEDS: ASCORBIC ACID 500 MG TABLET GT SCH (20:28)
[2023-01-30 21:29] VITALS: O2SAT 98
[2023-01-31] MEDS: GLUCERNA 1.2 1000ML LIQUID GT PRN (05:04)
[2023-01-31] MEDS: OMEPRAZOLE 20 MG CAPSULE.DR GT SCH (05:04)
[2023-01-31 07:25] VITALS: TEMP 98.4
[2023-01-31] MEDS: HYDROGEN PEROXIDE 3% 118 ML BOTTLE TP SCH ×2 (08:15→19:03)
[2023-01-31] MEDS: ACIDOPHILUS/BULGARICUS CHEW TAB GT SCH ×2 (08:43→20:18)
[2023-01-31] MEDS: BACLOFEN 20 MG TABLET GT SCH ×4 (08:44→20:18)
[2023-01-31] MEDS: SIMETHICONE 80 MG TAB.CHEW GT SCH ×3 (08:45→17:31)
[2023-01-31] MEDS: SERTRALINE HCL 50 MG TABLET GT SCH (08:45)
[2023-01-31] MEDS: MINERAL OIL/PETROLATUM,WHITE 57 GM TUBE TP SCH (08:55)
[2023-01-31] MEDS: METOPROLOL TARTRATE 50 MG TABLET GT SCH ×2 (08:55→20:19)
[2023-01-31] MEDS: REMEDY ESSENTIAL ZINC PASTE 113 GM TOP SCH ×2 (08:55→20:19)
[2023-01-31 16:27] VITALS: O2SAT 99
[2023-01-31 19:58] VITALS: O2SAT 98
[2023-01-31 20:00] VITALS: TEMP 97.3
[2023-01-31] MEDS: MULTIVIT, IRON, MIN NO. 8, FA TABLET GT SCH (20:19)
[2023-01-31] MEDS: ASCORBIC ACID 500 MG TABLET GT SCH (20:19)
[2023-01-31 23:06] VITALS: TEMP 97.3
[2023-02-01] MEDS: OMEPRAZOLE 20 MG CAPSULE.DR GT SCH (05:37)
[2023-02-01] MEDS: BACLOFEN 20 MG TABLET GT SCH ×4 (08:29→21:00)
[2023-02-01] MEDS: ACIDOPHILUS/BULGARICUS CHEW TAB GT SCH ×2 (08:29→20:22)
[2023-02-01] MEDS: SERTRALINE HCL 50 MG TABLET GT SCH (08:30)
[2023-02-01] MEDS: SIMETHICONE 80 MG TAB.CHEW GT SCH ×3 (08:30→17:08)
[2023-02-01] MEDS: METOPROLOL TARTRATE 50 MG TABLET GT SCH ×2 (08:30→20:22)
[2023-02-01] MEDS: REMEDY ESSENTIAL ZINC PASTE 113 GM TOP SCH ×2 (08:30→20:22)
[2023-02-01] MEDS: MINERAL OIL/PETROLATUM,WHITE 57 GM TUBE TP SCH (08:31)
[2023-02-01] MEDS: KETOCONAZOLE 2% SHAMPOO 120 ML BOTTLE TP SCH (08:31)
[2023-02-01] MEDS: HYDROGEN PEROXIDE 3% 118 ML BOTTLE TP SCH ×2 (09:00→19:10)
[2023-02-01 10:30] VITALS: O2SAT 97
[2023-02-01 11:35] VITALS: TEMP 97.5
[2023-02-01 20:00] VITALS: TEMP 98.2
[2023-02-01 20:20] VITALS: O2SAT 98
[2023-02-01] MEDS: ASCORBIC ACID 500 MG TABLET GT SCH (20:22)
[2023-02-01] MEDS: TRIAMCINOLONE ACET 0.1% OINT 15 GM TUBE TP SCH (20:23)
[2023-02-02] MEDS: OMEPRAZOLE 20 MG CAPSULE.DR GT SCH (05:25)
[2023-02-02] MEDS: GLUCERNA 1.2 1000ML LIQUID GT PRN (05:25)
[2023-02-02 07:05] VITALS: O2SAT 97
[2023-02-02] MEDS: HYDROGEN PEROXIDE 3% 118 ML BOTTLE TP SCH ×2 (07:53→19:08)
[2023-02-02 08:00] VITALS: TEMP 97.7
[2023-02-02] MEDS: ACIDOPHILUS/BULGARICUS CHEW TAB GT SCH ×2 (09:57→21:00)
[2023-02-02] MEDS: BACLOFEN 20 MG TABLET GT SCH ×4 (09:57→21:00)
[2023-02-02] MEDS: REMEDY ESSENTIAL ZINC PASTE 113 GM TOP SCH ×2 (09:58→21:00)
[2023-02-02] MEDS: SIMETHICONE 80 MG TAB.CHEW GT SCH ×3 (09:58→16:06)
[2023-02-02] MEDS: METOPROLOL TARTRATE 50 MG TABLET GT SCH ×2 (09:58→21:00)
[2023-02-02] MEDS: SERTRALINE HCL 50 MG TABLET GT SCH (09:58)
[2023-02-02] MEDS: MINERAL OIL/PETROLATUM,WHITE 57 GM TUBE TP SCH (09:58)
[2023-02-02 19:40] VITALS: O2SAT 98
[2023-02-02 20:00] VITALS: TEMP 98.6
[2023-02-02] MEDS: MULTIVIT, IRON, MIN NO. 8, FA TABLET GT SCH (21:00)
[2023-02-02] MEDS: ASCORBIC ACID 500 MG TABLET GT SCH (21:00)
[2023-02-03] MEDS: OMEPRAZOLE 20 MG CAPSULE.DR GT SCH (06:09)
[2023-02-03] MEDS: HYDROGEN PEROXIDE 3% 118 ML BOTTLE TP SCH ×2 (07:05→22:58)
[2023-02-03 07:25] VITALS: O2SAT 97
[2023-02-03 08:00] VITALS: TEMP 97.5
[2023-02-03] MEDS: ACIDOPHILUS/BULGARICUS CHEW TAB GT SCH ×2 (09:52→21:10)
[2023-02-03] MEDS: BACLOFEN 20 MG TABLET GT SCH ×4 (09:52→21:10)
[2023-02-03] MEDS: SERTRALINE HCL 50 MG TABLET GT SCH (09:53)
[2023-02-03] MEDS: METOPROLOL TARTRATE 50 MG TABLET GT SCH ×2 (09:53→21:10)
[2023-02-03] MEDS: SIMETHICONE 80 MG TAB.CHEW GT SCH ×3 (09:53→17:24)
[2023-02-03] MEDS: REMEDY ESSENTIAL ZINC PASTE 113 GM TOP SCH ×2 (09:53→21:10)
[2023-02-03] MEDS: MINERAL OIL/PETROLATUM,WHITE 57 GM TUBE TP SCH (09:53)
[2023-02-03] MEDS: GLUCERNA 1.2 1000ML LIQUID GT PRN (13:30)
[2023-02-03 20:00] VITALS: TEMP 98.4
[2023-02-03] MEDS: ASCORBIC ACID 500 MG TABLET GT SCH (21:10)
[2023-02-04 03:53] VITALS: O2SAT 99
[2023-02-04] MEDS: OMEPRAZOLE 20 MG CAPSULE.DR GT SCH (05:11)
[2023-02-04] MEDS: HYDROGEN PEROXIDE 3% 118 ML BOTTLE TP SCH ×2 (08:34→21:07)
[2023-02-04] MEDS: METOPROLOL TARTRATE 50 MG TABLET GT SCH ×2 (09:38→21:00)
[2023-02-04] MEDS: BACLOFEN 20 MG TABLET GT SCH ×4 (09:38→20:25)
[2023-02-04] MEDS: ACIDOPHILUS/BULGARICUS CHEW TAB GT SCH ×2 (09:38→20:25)
[2023-02-04] MEDS: SIMETHICONE 80 MG TAB.CHEW GT SCH ×3 (09:38→17:48)
[2023-02-04] MEDS: REMEDY ESSENTIAL ZINC PASTE 113 GM TOP SCH ×2 (09:39→20:26)
[2023-02-04] MEDS: MINERAL OIL/PETROLATUM,WHITE 57 GM TUBE TP SCH (09:39)
[2023-02-04] MEDS: SERTRALINE HCL 50 MG TABLET GT SCH (09:39)
[2023-02-04 11:47] VITALS: TEMP 97.6
[2023-02-04 13:19] VITALS: O2SAT 99
[2023-02-04] MEDS: ASCORBIC ACID 500 MG TABLET GT SCH (20:25)
[2023-02-04] MEDS: MULTIVIT, IRON, MIN NO. 8, FA TABLET GT SCH (20:25)
[2023-02-04 21:32] VITALS: TEMP 98.2
[2023-02-05 03:59] VITALS: O2SAT 98
[2023-02-05] MEDS: OMEPRAZOLE 20 MG CAPSULE.DR GT SCH (05:06)
[2023-02-05 07:46] LABS: BASOPHILS % (AUTO) 0.6 % (0.0-2.0); EOSINOPHILS # (AUTO) 0.3 K/uL (0.0-0.7); EOSINOPHILS % (AUTO) 5.5 % (0.0-7.0); HEMATOCRIT 37.3 % (31.2-41.9); HEMOGLOBIN 11.6 g/dL (10.9-14.3); LYMPHOCYTES # (AUTO) 2.1 K/uL (0.8-4.8); LYMPHOCYTES % (AUTO) 35.9 % (20.5-51.5); MEAN CORPUSCULAR HEMOGLOBIN 22.1 uug (24.7-32.8); MEAN CORPUSCULAR HGB CONC 31 g/dL (32.3-35.6); MEAN CORPUSCULAR VOLUME 71.1 fL (75.5-95.3); MONOCYTES # (AUTO) 0.5 K/uL (0.1-1.30); MONOCYTES % (AUTO) 9.2 % (0.0-11.0); NEUTROPHILS # (AUTO) 2.9 K/uL (1.8-8.9); NEUTROPHILS % (AUTO) 48.8 % (38.5-71.5); PLATELET COUNT (AUTO) 236 K/uL (179-408); RED BLOOD CELL COUNT(AUTO) 5.25 MIL/uL (3.63-4.92); RED CELL DISTRIBUTION WIDTH 16.3 % (12.3-17.7); WHITE BLOOD COUNT (AUTO) 5.9 K/uL (3.8-11.8)
[2023-02-05 07:47] LABS: DIFFERENTIAL COMMENT 1
[2023-02-05 07:56] LABS: CALCIUM 9.2 mg/dL (8.5-10.1); CREATININE 0.6 mg/dL (0.6-1.3); POTASSIUM 4.1 mmol/L (3.5-5.1)
[2023-02-05] MEDS: HYDROGEN PEROXIDE 3% 118 ML BOTTLE TP SCH ×2 (08:00→19:03)
[2023-02-05] MEDS: ACIDOPHILUS/BULGARICUS CHEW TAB GT SCH ×2 (09:42→21:31)
[2023-02-05] MEDS: BACLOFEN 20 MG TABLET GT SCH ×4 (09:42→21:33)
[2023-02-05] MEDS: MINERAL OIL/PETROLATUM,WHITE 57 GM TUBE TP SCH (09:43)
[2023-02-05] MEDS: SIMETHICONE 80 MG TAB.CHEW GT SCH ×3 (09:43→18:00)
[2023-02-05] MEDS: KETOCONAZOLE 2% SHAMPOO 120 ML BOTTLE TP SCH (09:43)
[2023-02-05] MEDS: METOPROLOL TARTRATE 50 MG TABLET GT SCH ×2 (09:43→21:34)
[2023-02-05] MEDS: REMEDY ESSENTIAL ZINC PASTE 113 GM TOP SCH ×2 (09:43→21:35)
[2023-02-05] MEDS: SERTRALINE HCL 50 MG TABLET GT SCH (09:43)
[2023-02-05 11:32] VITALS: TEMP 97
[2023-02-05 11:55] LABS: ANISOCYTOSIS 1+; EOSINOPHILS % (MANUAL) 4 % (0-8); LYMPHOCYTES % (MANUAL) 41 % (20-40); MONOCYTES % (MANUAL) 5 % (2-10); NEUTROPHILS % (MANUAL) 50 % (42-75); PLATELET ESTIMATE ADEQUATE
[2023-02-05 14:13] VITALS: O2SAT 99
[2023-02-05] MEDS: PAXLOVID GT SCH (18:31)
[2023-02-05 19:45] LABS: *BILIRUBIN,URIN NEGATIVE (NEGATIVE); *CLARITY,URINE CLEAR (CLEAR); *COLOR,URINE YELLOW (YELLOW); *KETONES,URINE TRACE (NEGATIVE); *PROTEIN,URINE 1+ (NEGATIVE); LEUKOCYTE ESTERASE ,URINE 1+ (NEGATIVE); NITRITE, URINE NEGATIVE (NEGATIVE); PH,URINE 6.5 (5.0-8.0); UGLUCOSE NEGATIVE (NEGATIVE)
[2023-02-05 19:48] LABS: *BLOOD, URINE 1+ (NEGATIVE)
[2023-02-05 20:42] VITALS: TEMP 97.3
[2023-02-05 21:00] VITALS: O2SAT 98
[2023-02-05] MEDS: ASCORBIC ACID 500 MG TABLET GT SCH (21:35)
[2023-02-05] MEDS: TRIAMCINOLONE ACET 0.1% OINT 15 GM TUBE TP SCH (21:35)
[2023-02-06] MEDS: GUAIFENESIN/DEXTROMETHORPHAN 5 ML UDC PO PRN ×2 (05:23→10:04)
[2023-02-06] MEDS: ACETAMINOPHEN 650 MG/20 ML UDC- SA PATIENTS-PAIN ONLY GT PRN (05:23)
[2023-02-06] MEDS: OMEPRAZOLE 20 MG CAPSULE.DR GT SCH (05:23)
[2023-02-06] MEDS: HYDROGEN PEROXIDE 3% 118 ML BOTTLE TP SCH ×2 (07:08→19:08)
[2023-02-06] MEDS: PAXLOVID GT SCH ×2 (09:00→16:33)
[2023-02-06] MEDS: METOPROLOL TARTRATE 50 MG TABLET GT SCH ×2 (09:00→20:42)
[2023-02-06] MEDS: REMEDY ESSENTIAL ZINC PASTE 113 GM TOP SCH ×2 (09:00→20:16)
[2023-02-06] MEDS: SIMETHICONE 80 MG TAB.CHEW GT SCH ×3 (09:00→16:33)
[2023-02-06] MEDS: ACIDOPHILUS/BULGARICUS CHEW TAB GT SCH ×2 (09:00→20:15)
[2023-02-06] MEDS: BACLOFEN 20 MG TABLET GT SCH ×4 (09:00→20:15)
[2023-02-06] MEDS: SERTRALINE HCL 50 MG TABLET GT SCH (09:00)
[2023-02-06] MEDS: MINERAL OIL/PETROLATUM,WHITE 57 GM TUBE TP SCH (09:00)
[2023-02-06 09:11] LABS: C-REACTIVE PROTEIN 1.4 mg/dL (0.0-0.9)
[2023-02-06 10:45] VITALS: O2SAT 98
[2023-02-06 11:34] VITALS: TEMP 97
[2023-02-06 19:40] VITALS: O2SAT 98
[2023-02-06] MEDS: MULTIVIT, IRON, MIN NO. 8, FA TABLET GT SCH (20:15)
[2023-02-06] MEDS: ASCORBIC ACID 500 MG TABLET GT SCH (20:16)
[2023-02-06 20:42] VITALS: TEMP 97.2
[2023-02-07] MEDS: OMEPRAZOLE 20 MG CAPSULE.DR GT SCH (05:04)
[2023-02-07 08:00] VITALS: TEMP 97.6
[2023-02-07 08:22] VITALS: O2SAT 98
[2023-02-07] MEDS: HYDROGEN PEROXIDE 3% 118 ML BOTTLE TP SCH ×2 (09:00→19:02)
[2023-02-07] MEDS: BACLOFEN 20 MG TABLET GT SCH ×4 (09:53→20:37)
[2023-02-07] MEDS: ACIDOPHILUS/BULGARICUS CHEW TAB GT SCH ×2 (09:53→20:37)
[2023-02-07] MEDS: METOPROLOL TARTRATE 50 MG TABLET GT SCH ×2 (09:55→21:53)
[2023-02-07] MEDS: REMEDY ESSENTIAL ZINC PASTE 113 GM TOP SCH ×2 (09:55→20:38)
[2023-02-07] MEDS: SIMETHICONE 80 MG TAB.CHEW GT SCH ×3 (09:55→17:00)
[2023-02-07] MEDS: PAXLOVID GT SCH ×2 (09:55→17:00)
[2023-02-07] MEDS: SERTRALINE HCL 50 MG TABLET GT SCH (09:55)
[2023-02-07] MEDS: MINERAL OIL/PETROLATUM,WHITE 57 GM TUBE TP SCH (09:56)
[2023-02-07 19:25] VITALS: O2SAT 98
[2023-02-07] MEDS: ASCORBIC ACID 500 MG TABLET GT SCH (20:38)
[2023-02-07 21:44] VITALS: TEMP 97.3
[2023-02-07] MEDS: GLUCERNA 1.2 1000ML LIQUID GT PRN (21:53)
[2023-02-08] MEDS: OMEPRAZOLE 20 MG CAPSULE.DR GT SCH (05:08)
[2023-02-08] MEDS: HYDROGEN PEROXIDE 3% 118 ML BOTTLE TP SCH ×2 (07:07→19:21)
[2023-02-08 07:32] VITALS: O2SAT 98
[2023-02-08 08:00] VITALS: TEMP 98.5
[2023-02-08] MEDS: BACLOFEN 20 MG TABLET GT SCH ×4 (08:24→20:08)
[2023-02-08] MEDS: ACIDOPHILUS/BULGARICUS CHEW TAB GT SCH ×2 (08:24→20:08)
[2023-02-08] MEDS: SIMETHICONE 80 MG TAB.CHEW GT SCH ×3 (08:26→16:49)
[2023-02-08] MEDS: METOPROLOL TARTRATE 50 MG TABLET GT SCH ×2 (08:26→20:09)
[2023-02-08] MEDS: PAXLOVID GT SCH ×2 (08:28→16:49)
[2023-02-08] MEDS: KETOCONAZOLE 2% SHAMPOO 120 ML BOTTLE TP SCH (08:28)
[2023-02-08] MEDS: SERTRALINE HCL 50 MG TABLET GT SCH (08:28)
[2023-02-08] MEDS: REMEDY ESSENTIAL ZINC PASTE 113 GM TOP SCH ×2 (08:28→20:09)
[2023-02-08] MEDS: MINERAL OIL/PETROLATUM,WHITE 57 GM TUBE TP SCH (08:28)
[2023-02-08] MEDS: GLUCERNA 1.2 1000ML LIQUID GT PRN (17:22)
[2023-02-08 19:40] VITALS: O2SAT 98
[2023-02-08 20:00] VITALS: TEMP 97.6
[2023-02-08] MEDS: ASCORBIC ACID 500 MG TABLET GT SCH (20:09)
[2023-02-08] MEDS: TRIAMCINOLONE ACET 0.1% OINT 15 GM TUBE TP SCH (20:09)
[2023-02-08] MEDS: MULTIVIT, IRON, MIN NO. 8, FA TABLET GT SCH (20:09)
[2023-02-09] MEDS: OMEPRAZOLE 20 MG CAPSULE.DR GT SCH (05:13)
[2023-02-09] MEDS: HYDROGEN PEROXIDE 3% 118 ML BOTTLE TP SCH ×2 (07:04→19:06)
[2023-02-09 08:00] VITALS: TEMP 97.4
[2023-02-09] MEDS: METOPROLOL TARTRATE 50 MG TABLET GT SCH ×2 (09:27→20:44)
[2023-02-09] MEDS: SIMETHICONE 80 MG TAB.CHEW GT SCH ×3 (09:27→17:42)
[2023-02-09] MEDS: ACIDOPHILUS/BULGARICUS CHEW TAB GT SCH ×2 (09:27→20:44)
[2023-02-09] MEDS: BACLOFEN 20 MG TABLET GT SCH ×4 (09:27→20:44)
[2023-02-09] MEDS: PAXLOVID GT SCH ×2 (09:28→17:43)
[2023-02-09] MEDS: SERTRALINE HCL 50 MG TABLET GT SCH (09:28)
[2023-02-09] MEDS: REMEDY ESSENTIAL ZINC PASTE 113 GM TOP SCH ×2 (09:29→20:44)
[2023-02-09] MEDS: MINERAL OIL/PETROLATUM,WHITE 57 GM TUBE TP SCH (09:29)
[2023-02-09 09:38] VITALS: O2SAT 98
[2023-02-09 19:40] VITALS: O2SAT 98
[2023-02-09 20:00] VITALS: TEMP 97.1
[2023-02-09] MEDS: ASCORBIC ACID 500 MG TABLET GT SCH (20:44)
[2023-02-10] MEDS: GLUCERNA 1.2 1000ML LIQUID GT PRN ×2 (01:00→21:00)
[2023-02-10] MEDS: OMEPRAZOLE 20 MG CAPSULE.DR GT SCH (06:38)
[2023-02-10 07:44] VITALS: TEMP 97.2
[2023-02-10 08:35] VITALS: O2SAT 97
[2023-02-10] MEDS: ACIDOPHILUS/BULGARICUS CHEW TAB GT SCH ×2 (08:47→20:51)
[2023-02-10] MEDS: BACLOFEN 20 MG TABLET GT SCH ×4 (08:47→20:51)
[2023-02-10] MEDS: SIMETHICONE 80 MG TAB.CHEW GT SCH ×3 (08:48→17:00)
[2023-02-10] MEDS: PAXLOVID GT SCH (08:48)
[2023-02-10] MEDS: REMEDY ESSENTIAL ZINC PASTE 113 GM TOP SCH ×2 (08:48→20:52)
[2023-02-10] MEDS: METOPROLOL TARTRATE 50 MG TABLET GT SCH ×2 (08:48→20:51)
[2023-02-10] MEDS: SERTRALINE HCL 50 MG TABLET GT SCH (08:48)
[2023-02-10] MEDS: MINERAL OIL/PETROLATUM,WHITE 57 GM TUBE TP SCH (08:49)
[2023-02-10] MEDS: HYDROGEN PEROXIDE 3% 118 ML BOTTLE TP SCH ×2 (09:00→19:06)
[2023-02-10 13:58] VITALS: O2SAT 97
[2023-02-10 20:00] VITALS: TEMP 98.7
[2023-02-10 20:25] VITALS: O2SAT 98
[2023-02-10] MEDS: ASCORBIC ACID 500 MG TABLET GT SCH (20:52)
[2023-02-10] MEDS: MULTIVIT, IRON, MIN NO. 8, FA TABLET GT SCH (20:52)
[2023-02-10] MEDS: ACETAMINOPHEN 650 MG/20 ML UDC- SA PATIENTS-PAIN ONLY GT PRN (21:32)
[2023-02-10] MEDS: GUAIFENESIN/DEXTROMETHORPHAN 5 ML UDC PO PRN (21:32)
[2023-02-11] MEDS: OMEPRAZOLE 20 MG CAPSULE.DR GT SCH (05:49)
[2023-02-11 07:52] VITALS: TEMP 97.2
[2023-02-11 08:47] VITALS: O2SAT 97
[2023-02-11] MEDS: HYDROGEN PEROXIDE 3% 118 ML BOTTLE TP SCH ×2 (08:47→19:03)
[2023-02-11] MEDS: BACLOFEN 20 MG TABLET GT SCH ×4 (09:05→21:29)
[2023-02-11] MEDS: ACIDOPHILUS/BULGARICUS CHEW TAB GT SCH ×2 (09:05→21:29)
[2023-02-11] MEDS: SIMETHICONE 80 MG TAB.CHEW GT SCH ×3 (09:06→17:35)
[2023-02-11] MEDS: SERTRALINE HCL 50 MG TABLET GT SCH (09:06)
[2023-02-11] MEDS: REMEDY ESSENTIAL ZINC PASTE 113 GM TOP SCH ×2 (09:06→21:29)
[2023-02-11] MEDS: METOPROLOL TARTRATE 50 MG TABLET GT SCH ×2 (09:06→21:29)
[2023-02-11] MEDS: MINERAL OIL/PETROLATUM,WHITE 57 GM TUBE TP SCH (09:07)
[2023-02-11 15:15] VITALS: O2SAT 97
[2023-02-11 20:25] VITALS: O2SAT 98
[2023-02-11 20:55] VITALS: TEMP 98.5
[2023-02-11] MEDS: ASCORBIC ACID 500 MG TABLET GT SCH (21:29)
[2023-02-12] MEDS: OMEPRAZOLE 20 MG CAPSULE.DR GT SCH (05:33)
[2023-02-12 07:23] VITALS: TEMP 98.2
[2023-02-12] MEDS: METOPROLOL TARTRATE 50 MG TABLET GT SCH ×2 (09:00→21:00)
[2023-02-12] MEDS: KETOCONAZOLE 2% SHAMPOO 120 ML BOTTLE TP SCH (09:00)
[2023-02-12] MEDS: MINERAL OIL/PETROLATUM,WHITE 57 GM TUBE TP SCH (09:00)
[2023-02-12] MEDS: ACIDOPHILUS/BULGARICUS CHEW TAB GT SCH ×2 (09:00→20:18)
[2023-02-12] MEDS: HYDROGEN PEROXIDE 3% 118 ML BOTTLE TP SCH ×2 (09:00→19:15)
[2023-02-12] MEDS: SERTRALINE HCL 50 MG TABLET GT SCH (09:00)
[2023-02-12] MEDS: SIMETHICONE 80 MG TAB.CHEW GT SCH ×3 (09:00→17:19)
[2023-02-12] MEDS: REMEDY ESSENTIAL ZINC PASTE 113 GM TOP SCH ×2 (09:00→20:19)
[2023-02-12] MEDS: BACLOFEN 20 MG TABLET GT SCH ×4 (09:00→20:19)
[2023-02-12 16:34] VITALS: O2SAT 99
[2023-02-12 19:35] VITALS: O2SAT 98
[2023-02-12] MEDS: ASCORBIC ACID 500 MG TABLET GT SCH (20:19)
[2023-02-12] MEDS: MULTIVIT, IRON, MIN NO. 8, FA TABLET GT SCH (20:19)
[2023-02-12] MEDS: TRIAMCINOLONE ACET 0.1% OINT 15 GM TUBE TP SCH (20:20)
[2023-02-12 22:53] VITALS: TEMP 97.5
[2023-02-13] MEDS: OMEPRAZOLE 20 MG CAPSULE.DR GT SCH (05:03)
[2023-02-13] MEDS: GLUCERNA 1.2 1000ML LIQUID GT PRN (05:03)
[2023-02-13 07:22] VITALS: TEMP 97.4
[2023-02-13 08:20] VITALS: O2SAT 97
[2023-02-13] MEDS: METOPROLOL TARTRATE 50 MG TABLET GT SCH ×2 (09:00→21:00)
[2023-02-13] MEDS: HYDROGEN PEROXIDE 3% 118 ML BOTTLE TP SCH ×2 (09:56→22:25)
[2023-02-13] MEDS: ACIDOPHILUS/BULGARICUS CHEW TAB GT SCH ×2 (09:57→20:35)
[2023-02-13] MEDS: BACLOFEN 20 MG TABLET GT SCH ×4 (09:57→20:35)
[2023-02-13] MEDS: SIMETHICONE 80 MG TAB.CHEW GT SCH ×3 (09:58→17:51)
[2023-02-13] MEDS: SERTRALINE HCL 50 MG TABLET GT SCH (09:58)
[2023-02-13] MEDS: REMEDY ESSENTIAL ZINC PASTE 113 GM TOP SCH ×2 (09:59→20:36)
[2023-02-13] MEDS: MINERAL OIL/PETROLATUM,WHITE 57 GM TUBE TP SCH (09:59)
[2023-02-13 15:45] VITALS: O2SAT 97
[2023-02-13] MEDS: ASCORBIC ACID 500 MG TABLET GT SCH (20:36)
[2023-02-14 03:54] VITALS: O2SAT 99
[2023-02-14] MEDS: OMEPRAZOLE 20 MG CAPSULE.DR GT SCH (05:17)
[2023-02-14 07:24] VITALS: TEMP 97.8
[2023-02-14] MEDS: HYDROGEN PEROXIDE 3% 118 ML BOTTLE TP SCH ×2 (08:00→19:11)
[2023-02-14] MEDS: ACIDOPHILUS/BULGARICUS CHEW TAB GT SCH ×2 (08:33→20:23)
[2023-02-14] MEDS: BACLOFEN 20 MG TABLET GT SCH ×4 (08:34→20:23)
[2023-02-14] MEDS: SIMETHICONE 80 MG TAB.CHEW GT SCH ×3 (08:34→16:12)
[2023-02-14] MEDS: METOPROLOL TARTRATE 50 MG TABLET GT SCH ×2 (08:34→21:39)
[2023-02-14] MEDS: MINERAL OIL/PETROLATUM,WHITE 57 GM TUBE TP SCH (08:35)
[2023-02-14] MEDS: SERTRALINE HCL 50 MG TABLET GT SCH (08:35)
[2023-02-14] MEDS: REMEDY ESSENTIAL ZINC PASTE 113 GM TOP SCH ×2 (08:35→20:23)
[2023-02-14 14:26] VITALS: O2SAT 99
[2023-02-14 20:10] VITALS: O2SAT 98
[2023-02-14] MEDS: ASCORBIC ACID 500 MG TABLET GT SCH (20:23)
[2023-02-14] MEDS: MULTIVIT, IRON, MIN NO. 8, FA TABLET GT SCH (20:23)
[2023-02-14 20:34] VITALS: TEMP 97.7
[2023-02-15] MEDS: OMEPRAZOLE 20 MG CAPSULE.DR GT SCH (05:05)
[2023-02-15] MEDS: GLUCERNA 1.2 1000ML LIQUID GT PRN (05:06)
[2023-02-15 07:26] VITALS: TEMP 98.8
[2023-02-15 08:20] VITALS: O2SAT 97
[2023-02-15] MEDS: HYDROGEN PEROXIDE 3% 118 ML BOTTLE TP SCH ×2 (09:00→19:30)
[2023-02-15] MEDS: BACLOFEN 20 MG TABLET GT SCH ×4 (09:34→20:59)
[2023-02-15] MEDS: ACIDOPHILUS/BULGARICUS CHEW TAB GT SCH ×2 (09:34→20:59)
[2023-02-15] MEDS: MINERAL OIL/PETROLATUM,WHITE 57 GM TUBE TP SCH (09:35)
[2023-02-15] MEDS: KETOCONAZOLE 2% SHAMPOO 120 ML BOTTLE TP SCH (09:35)
[2023-02-15] MEDS: SIMETHICONE 80 MG TAB.CHEW GT SCH ×3 (09:35→16:56)
[2023-02-15] MEDS: REMEDY ESSENTIAL ZINC PASTE 113 GM TOP SCH ×2 (09:35→21:00)
[2023-02-15] MEDS: METOPROLOL TARTRATE 50 MG TABLET GT SCH ×2 (09:35→21:00)
[2023-02-15] MEDS: SERTRALINE HCL 50 MG TABLET GT SCH (09:35)
[2023-02-15] MEDS ORDERED: INFLUENZA VACCINE 2023-2024 0.5 ML DISP.SYRIN IM ONE (13:00)
[2023-02-15 15:00] VITALS: O2SAT 97
[2023-02-15 19:35] VITALS: O2SAT 98
[2023-02-15 20:00] VITALS: TEMP 97.8
[2023-02-15] MEDS: ASCORBIC ACID 500 MG TABLET GT SCH (20:59)
[2023-02-15] MEDS: TRIAMCINOLONE ACET 0.1% OINT 15 GM TUBE TP SCH (21:00)
[2023-02-16] MEDS: OMEPRAZOLE 20 MG CAPSULE.DR GT SCH (05:10)
[2023-02-16] MEDS: GLUCERNA 1.2 1000ML LIQUID GT PRN (05:12)
[2023-02-16 07:36] VITALS: TEMP 97.8
[2023-02-16] MEDS: ACIDOPHILUS/BULGARICUS CHEW TAB GT SCH ×2 (08:21→21:38)
[2023-02-16] MEDS: BACLOFEN 20 MG TABLET GT SCH ×4 (08:22→21:39)
[2023-02-16] MEDS: METOPROLOL TARTRATE 50 MG TABLET GT SCH ×2 (08:23→21:39)
[2023-02-16] MEDS: REMEDY ESSENTIAL ZINC PASTE 113 GM TOP SCH ×2 (08:23→21:40)
[2023-02-16] MEDS: MINERAL OIL/PETROLATUM,WHITE 57 GM TUBE TP SCH (08:23)
[2023-02-16] MEDS: SIMETHICONE 80 MG TAB.CHEW GT SCH ×3 (08:23→16:42)
[2023-02-16] MEDS: SERTRALINE HCL 50 MG TABLET GT SCH (08:23)
[2023-02-16] MEDS: HYDROGEN PEROXIDE 3% 118 ML BOTTLE TP SCH ×2 (08:56→21:00)
[2023-02-16 10:20] VITALS: O2SAT 98
[2023-02-16 20:00] VITALS: TEMP 97.4; O2SAT 98
[2023-02-16] MEDS: MULTIVIT, IRON, MIN NO. 8, FA TABLET GT SCH (21:39)
[2023-02-16] MEDS: ASCORBIC ACID 500 MG TABLET GT SCH (21:40)
[2023-02-17] MEDS: OMEPRAZOLE 20 MG CAPSULE.DR GT SCH (05:44)
[2023-02-17] MEDS: GLUCERNA 1.2 1000ML LIQUID GT PRN (05:46)
[2023-02-17 08:00] VITALS: TEMP 97.6
[2023-02-17] MEDS: HYDROGEN PEROXIDE 3% 118 ML BOTTLE TP SCH ×2 (09:00→21:15)
[2023-02-17] MEDS: ACIDOPHILUS/BULGARICUS CHEW TAB GT SCH ×2 (09:45→21:39)
[2023-02-17] MEDS: BACLOFEN 20 MG TABLET GT SCH ×4 (09:45→21:39)
[2023-02-17] MEDS: METOPROLOL TARTRATE 50 MG TABLET GT SCH ×2 (09:47→21:41)
[2023-02-17] MEDS: SIMETHICONE 80 MG TAB.CHEW GT SCH ×3 (09:48→16:20)
[2023-02-17] MEDS: SERTRALINE HCL 50 MG TABLET GT SCH (09:48)
[2023-02-17] MEDS: MINERAL OIL/PETROLATUM,WHITE 57 GM TUBE TP SCH (09:48)
[2023-02-17] MEDS: REMEDY ESSENTIAL ZINC PASTE 113 GM TOP SCH ×2 (09:48→21:41)
[2023-02-17] MEDS ORDERED: INFLUENZA VACCINE 2023-2024 0.5 ML DISP.SYRIN IM ONE (15:00)
[2023-02-17 18:10] VITALS: O2SAT 99
[2023-02-17 20:00] VITALS: TEMP 98.2
[2023-02-17 21:20] VITALS: O2SAT 98
[2023-02-17] MEDS: ASCORBIC ACID 500 MG TABLET GT SCH (21:41)
[2023-02-18] MEDS: OMEPRAZOLE 20 MG CAPSULE.DR GT SCH (05:02)
[2023-02-18 07:05] VITALS: O2SAT 98
[2023-02-18] MEDS: HYDROGEN PEROXIDE 3% 118 ML BOTTLE TP SCH ×2 (07:17→21:16)
[2023-02-18 07:20] VITALS: TEMP 97.8
[2023-02-18] MEDS: BACLOFEN 20 MG TABLET GT SCH ×4 (08:40→20:13)
[2023-02-18] MEDS: ACIDOPHILUS/BULGARICUS CHEW TAB GT SCH ×2 (08:40→20:13)
[2023-02-18] MEDS: SERTRALINE HCL 50 MG TABLET GT SCH (08:40)
[2023-02-18] MEDS: SIMETHICONE 80 MG TAB.CHEW GT SCH ×3 (08:40→17:11)
[2023-02-18] MEDS: METOPROLOL TARTRATE 50 MG TABLET GT SCH ×2 (08:40→20:13)
[2023-02-18] MEDS: REMEDY ESSENTIAL ZINC PASTE 113 GM TOP SCH ×2 (08:41→20:14)
[2023-02-18] MEDS: MINERAL OIL/PETROLATUM,WHITE 57 GM TUBE TP SCH (08:41)
[2023-02-18] MEDS: GLUCERNA 1.2 1000ML LIQUID GT PRN (12:49)
[2023-02-18 20:00] VITALS: TEMP 97.6
[2023-02-18 20:05] VITALS: O2SAT 98
[2023-02-18] MEDS: MULTIVIT, IRON, MIN NO. 8, FA TABLET GT SCH (20:13)
[2023-02-18] MEDS: ASCORBIC ACID 500 MG TABLET GT SCH (20:14)
[2023-02-19] MEDS: OMEPRAZOLE 20 MG CAPSULE.DR GT SCH (05:34)
[2023-02-19 07:26] VITALS: TEMP 97.6
[2023-02-19] MEDS: BACLOFEN 20 MG TABLET GT SCH ×4 (08:31→20:43)
[2023-02-19] MEDS: ACIDOPHILUS/BULGARICUS CHEW TAB GT SCH ×2 (08:31→20:43)
[2023-02-19] MEDS: METOPROLOL TARTRATE 50 MG TABLET GT SCH ×2 (08:31→21:48)
[2023-02-19] MEDS: KETOCONAZOLE 2% SHAMPOO 120 ML BOTTLE TP SCH (08:32)
[2023-02-19] MEDS: SERTRALINE HCL 50 MG TABLET GT SCH (08:32)
[2023-02-19] MEDS: MINERAL OIL/PETROLATUM,WHITE 57 GM TUBE TP SCH (08:32)
[2023-02-19] MEDS: REMEDY ESSENTIAL ZINC PASTE 113 GM TOP SCH ×2 (08:32→20:43)
[2023-02-19] MEDS: SIMETHICONE 80 MG TAB.CHEW GT SCH ×3 (08:32→17:12)
[2023-02-19] MEDS: HYDROGEN PEROXIDE 3% 118 ML BOTTLE TP SCH ×2 (08:53→19:30)
[2023-02-19 14:06] VITALS: O2SAT 99
[2023-02-19] MEDS: GLUCERNA 1.2 1000ML LIQUID GT PRN (15:03)
[2023-02-19 20:00] VITALS: TEMP 98.5
[2023-02-19 20:20] VITALS: O2SAT 98
[2023-02-19] MEDS: ASCORBIC ACID 500 MG TABLET GT SCH (20:43)
[2023-02-19] MEDS: TRIAMCINOLONE ACET 0.1% OINT 15 GM TUBE TP SCH (20:43)
[2023-02-20] MEDS: OMEPRAZOLE 20 MG CAPSULE.DR GT SCH (05:09)
[2023-02-20 07:28] VITALS: TEMP 97.6
[2023-02-20 08:58] VITALS: O2SAT 97
[2023-02-20] MEDS: HYDROGEN PEROXIDE 3% 118 ML BOTTLE TP SCH ×3 (08:58→19:15)
[2023-02-20] MEDS: METOPROLOL TARTRATE 50 MG TABLET GT SCH ×2 (09:00→21:26)
[2023-02-20] MEDS: REMEDY ESSENTIAL ZINC PASTE 113 GM TOP SCH ×2 (09:00→20:13)
[2023-02-20] MEDS: MINERAL OIL/PETROLATUM,WHITE 57 GM TUBE TP SCH (09:00)
[2023-02-20] MEDS: ACIDOPHILUS/BULGARICUS CHEW TAB GT SCH ×2 (09:00→20:12)
[2023-02-20] MEDS: BACLOFEN 20 MG TABLET GT SCH ×4 (09:00→20:12)
[2023-02-20] MEDS: SIMETHICONE 80 MG TAB.CHEW GT SCH ×3 (09:00→17:00)
[2023-02-20] MEDS: SERTRALINE HCL 50 MG TABLET GT SCH (09:00)
[2023-02-20 16:40] VITALS: O2SAT 97
[2023-02-20 20:00] VITALS: TEMP 97.6
[2023-02-20] MEDS: ASCORBIC ACID 500 MG TABLET GT SCH (20:12)
[2023-02-20] MEDS: MULTIVIT, IRON, MIN NO. 8, FA TABLET GT SCH (20:12)
[2023-02-20 20:15] VITALS: O2SAT 98
[2023-02-21] MEDS: OMEPRAZOLE 20 MG CAPSULE.DR GT SCH (05:06)
[2023-02-21] MEDS: GLUCERNA 1.2 1000ML LIQUID GT PRN (05:07)
[2023-02-21 08:00] VITALS: TEMP 98
[2023-02-21] MEDS: HYDROGEN PEROXIDE 3% 118 ML BOTTLE TP SCH ×2 (09:00→21:00)
[2023-02-21] MEDS: ACIDOPHILUS/BULGARICUS CHEW TAB GT SCH ×2 (09:51→21:10)
[2023-02-21] MEDS: SERTRALINE HCL 50 MG TABLET GT SCH (09:52)
[2023-02-21] MEDS: METOPROLOL TARTRATE 50 MG TABLET GT SCH ×2 (09:52→21:14)
[2023-02-21] MEDS: SIMETHICONE 80 MG TAB.CHEW GT SCH ×3 (09:52→16:33)
[2023-02-21] MEDS: BACLOFEN 20 MG TABLET GT SCH ×4 (09:52→21:11)
[2023-02-21] MEDS: MINERAL OIL/PETROLATUM,WHITE 57 GM TUBE TP SCH (09:53)
[2023-02-21] MEDS: REMEDY ESSENTIAL ZINC PASTE 113 GM TOP SCH ×2 (09:53→21:14)
[2023-02-21 10:00] VITALS: O2SAT 97
[2023-02-21 20:00] VITALS: TEMP 97
[2023-02-21] MEDS: ASCORBIC ACID 500 MG TABLET GT SCH (21:14)
[2023-02-22] MEDS: GLUCERNA 1.2 1000ML LIQUID GT PRN (00:14)
[2023-02-22 00:30] VITALS: O2SAT 99
[2023-02-22] MEDS: OMEPRAZOLE 20 MG CAPSULE.DR GT SCH (05:02)
[2023-02-22 07:45] VITALS: O2SAT 97
[2023-02-22 08:00] VITALS: TEMP 97.8
[2023-02-22] MEDS: ACIDOPHILUS/BULGARICUS CHEW TAB GT SCH ×2 (08:37→20:19)
[2023-02-22] MEDS: BACLOFEN 20 MG TABLET GT SCH ×4 (08:37→20:21)
[2023-02-22] MEDS: METOPROLOL TARTRATE 50 MG TABLET GT SCH ×2 (08:38→20:23)
[2023-02-22] MEDS: SIMETHICONE 80 MG TAB.CHEW GT SCH ×3 (08:40→17:08)
[2023-02-22] MEDS: REMEDY ESSENTIAL ZINC PASTE 113 GM TOP SCH ×2 (08:41→20:21)
[2023-02-22] MEDS: MINERAL OIL/PETROLATUM,WHITE 57 GM TUBE TP SCH (08:41)
[2023-02-22] MEDS: SERTRALINE HCL 50 MG TABLET GT SCH (08:41)
[2023-02-22] MEDS: KETOCONAZOLE 2% SHAMPOO 120 ML BOTTLE TP SCH (08:42)
[2023-02-22] MEDS: HYDROGEN PEROXIDE 3% 118 ML BOTTLE TP SCH ×2 (09:00→19:13)
[2023-02-22 15:45] VITALS: O2SAT 97
[2023-02-22 19:59] VITALS: TEMP 97.6
[2023-02-22] MEDS: ASCORBIC ACID 500 MG TABLET GT SCH (20:21)
[2023-02-22] MEDS: MULTIVIT, IRON, MIN NO. 8, FA TABLET GT SCH (20:21)
[2023-02-22] MEDS: TRIAMCINOLONE ACET 0.1% OINT 15 GM TUBE TP SCH (20:22)
[2023-02-23 00:14] VITALS: O2SAT 98
[2023-02-23] MEDS: OMEPRAZOLE 20 MG CAPSULE.DR GT SCH (06:20)
[2023-02-23] MEDS: GLUCERNA 1.2 1000ML LIQUID GT PRN (06:20)
[2023-02-23] MEDS: HYDROGEN PEROXIDE 3% 118 ML BOTTLE TP SCH ×2 (07:15→19:09)
[2023-02-23 08:07] VITALS: TEMP 97.5
[2023-02-23] MEDS: ACIDOPHILUS/BULGARICUS CHEW TAB GT SCH ×2 (08:58→20:26)
[2023-02-23] MEDS: BACLOFEN 20 MG TABLET GT SCH ×4 (08:58→20:26)
[2023-02-23] MEDS: METOPROLOL TARTRATE 50 MG TABLET GT SCH ×2 (09:00→20:26)
[2023-02-23] MEDS: SERTRALINE HCL 50 MG TABLET GT SCH (09:03)
[2023-02-23] MEDS: MINERAL OIL/PETROLATUM,WHITE 57 GM TUBE TP SCH (09:04)
[2023-02-23] MEDS: SIMETHICONE 80 MG TAB.CHEW GT SCH ×3 (09:04→16:12)
[2023-02-23] MEDS: REMEDY ESSENTIAL ZINC PASTE 113 GM TOP SCH ×2 (09:04→20:26)
[2023-02-23 10:17] VITALS: O2SAT 97
[2023-02-23] MEDS: ACETAMINOPHEN 650 MG/20 ML UDC- SA PATIENTS-PAIN ONLY GT PRN (16:11)
[2023-02-23 20:00] VITALS: TEMP 98.3
[2023-02-23] MEDS: ASCORBIC ACID 500 MG TABLET GT SCH (20:26)
[2023-02-23 23:15] VITALS: O2SAT 98
[2023-02-24] MEDS: OMEPRAZOLE 20 MG CAPSULE.DR GT SCH (05:49)
[2023-02-24] MEDS: GLUCERNA 1.2 1000ML LIQUID GT PRN ×2 (05:49→20:43)
[2023-02-24] MEDS: HYDROGEN PEROXIDE 3% 118 ML BOTTLE TP SCH ×2 (07:30→19:13)
[2023-02-24 07:48] VITALS: O2SAT 97
[2023-02-24 08:08] VITALS: TEMP 97.7
[2023-02-24] MEDS: ACIDOPHILUS/BULGARICUS CHEW TAB GT SCH ×2 (09:13→20:28)
[2023-02-24] MEDS: BACLOFEN 20 MG TABLET GT SCH ×4 (09:18→20:28)
[2023-02-24] MEDS: SIMETHICONE 80 MG TAB.CHEW GT SCH ×3 (09:21→17:28)
[2023-02-24] MEDS: REMEDY ESSENTIAL ZINC PASTE 113 GM TOP SCH ×2 (09:21→20:33)
[2023-02-24] MEDS: SERTRALINE HCL 50 MG TABLET GT SCH (09:21)
[2023-02-24] MEDS: MINERAL OIL/PETROLATUM,WHITE 57 GM TUBE TP SCH (09:22)
[2023-02-24] MEDS: METOPROLOL TARTRATE 50 MG TABLET GT SCH ×2 (09:24→20:33)
[2023-02-24 20:00] VITALS: TEMP 97.1
[2023-02-24] MEDS: MULTIVIT, IRON, MIN NO. 8, FA TABLET GT SCH (20:28)
[2023-02-24] MEDS: ASCORBIC ACID 500 MG TABLET GT SCH (20:33)
[2023-02-24 20:55] VITALS: O2SAT 98
[2023-02-25] MEDS: GLUCERNA 1.2 1000ML LIQUID GT PRN (02:21)
[2023-02-25] MEDS: OMEPRAZOLE 20 MG CAPSULE.DR GT SCH (05:26)
[2023-02-25 07:42] VITALS: O2SAT 97
[2023-02-25] MEDS: HYDROGEN PEROXIDE 3% 118 ML BOTTLE TP SCH ×2 (07:44→20:17)
[2023-02-25 07:58] VITALS: TEMP 98.4
[2023-02-25] MEDS: ACIDOPHILUS/BULGARICUS CHEW TAB GT SCH ×2 (09:05→21:14)
[2023-02-25] MEDS: BACLOFEN 20 MG TABLET GT SCH ×4 (09:09→21:14)
[2023-02-25] MEDS: SERTRALINE HCL 50 MG TABLET GT SCH (09:10)
[2023-02-25] MEDS: SIMETHICONE 80 MG TAB.CHEW GT SCH ×3 (09:10→17:28)
[2023-02-25] MEDS: METOPROLOL TARTRATE 50 MG TABLET GT SCH ×2 (09:10→21:15)
[2023-02-25] MEDS: REMEDY ESSENTIAL ZINC PASTE 113 GM TOP SCH ×2 (09:11→21:15)
[2023-02-25] MEDS: MINERAL OIL/PETROLATUM,WHITE 57 GM TUBE TP SCH (09:11)
[2023-02-25 16:10] VITALS: O2SAT 97
[2023-02-25 20:40] VITALS: O2SAT 98
[2023-02-25] MEDS: ASCORBIC ACID 500 MG TABLET GT SCH (21:15)
[2023-02-25 23:15] VITALS: TEMP 97.6
[2023-02-26] MEDS: GLUCERNA 1.2 1000ML LIQUID GT PRN (00:40)
[2023-02-26] MEDS: OMEPRAZOLE 20 MG CAPSULE.DR GT SCH (05:17)
[2023-02-26 07:45] VITALS: O2SAT 100
[2023-02-26 08:00] VITALS: TEMP 97.5
[2023-02-26] MEDS: MINERAL OIL/PETROLATUM,WHITE 57 GM TUBE TP SCH (09:00)
[2023-02-26] MEDS: KETOCONAZOLE 2% SHAMPOO 120 ML BOTTLE TP SCH (09:00)
[2023-02-26] MEDS: ACIDOPHILUS/BULGARICUS CHEW TAB GT SCH ×2 (09:25→21:15)
[2023-02-26] MEDS: BACLOFEN 20 MG TABLET GT SCH ×4 (09:25→21:15)
[2023-02-26] MEDS: REMEDY ESSENTIAL ZINC PASTE 113 GM TOP SCH ×2 (09:26→21:15)
[2023-02-26] MEDS: METOPROLOL TARTRATE 50 MG TABLET GT SCH ×2 (09:26→21:15)
[2023-02-26] MEDS: SERTRALINE HCL 50 MG TABLET GT SCH (09:26)
[2023-02-26] MEDS: SIMETHICONE 80 MG TAB.CHEW GT SCH ×3 (09:26→17:00)
[2023-02-26] MEDS: HYDROGEN PEROXIDE 3% 118 ML BOTTLE TP SCH ×2 (09:27→21:54)
[2023-02-26 20:00] VITALS: TEMP 97.8
[2023-02-26] MEDS: ASCORBIC ACID 500 MG TABLET GT SCH (21:15)
[2023-02-26] MEDS: MULTIVIT, IRON, MIN NO. 8, FA TABLET GT SCH (21:15)
[2023-02-26] MEDS: TRIAMCINOLONE ACET 0.1% OINT 15 GM TUBE TP SCH (21:15)
[2023-02-27 03:40] VITALS: O2SAT 99
[2023-02-27] MEDS: OMEPRAZOLE 20 MG CAPSULE.DR GT SCH (06:09)
[2023-02-27 07:15] VITALS: O2SAT 97
[2023-02-27] MEDS: METOPROLOL TARTRATE 50 MG TABLET GT SCH ×2 (09:31→20:55)
[2023-02-27] MEDS: BACLOFEN 20 MG TABLET GT SCH ×4 (09:32→20:55)
[2023-02-27] MEDS: SIMETHICONE 80 MG TAB.CHEW GT SCH ×3 (09:33→16:58)
[2023-02-27] MEDS: SERTRALINE HCL 50 MG TABLET GT SCH (09:33)
[2023-02-27] MEDS: REMEDY ESSENTIAL ZINC PASTE 113 GM TOP SCH ×2 (09:33→20:55)
[2023-02-27] MEDS: ACIDOPHILUS/BULGARICUS CHEW TAB GT SCH ×2 (09:33→20:55)
[2023-02-27] MEDS: MINERAL OIL/PETROLATUM,WHITE 57 GM TUBE TP SCH (09:33)
[2023-02-27] MEDS: HYDROGEN PEROXIDE 3% 118 ML BOTTLE TP SCH ×2 (09:34→19:13)
[2023-02-27 15:15] VITALS: O2SAT 97
[2023-02-27 20:00] VITALS: TEMP 97.6
[2023-02-27] MEDS: ASCORBIC ACID 500 MG TABLET GT SCH (20:55)
[2023-02-28 02:03] VITALS: O2SAT 98
[2023-02-28] MEDS: GLUCERNA 1.2 1000ML LIQUID GT PRN (03:30)
[2023-02-28] MEDS: OMEPRAZOLE 20 MG CAPSULE.DR GT SCH (05:15)
[2023-02-28 07:38] VITALS: TEMP 97.7
[2023-02-28] MEDS: HYDROGEN PEROXIDE 3% 118 ML BOTTLE TP SCH ×2 (08:58→20:46)
[2023-02-28] MEDS: REMEDY ESSENTIAL ZINC PASTE 113 GM TOP SCH ×2 (09:00→21:00)
[2023-02-28] MEDS: SIMETHICONE 80 MG TAB.CHEW GT SCH ×3 (09:00→17:32)
[2023-02-28] MEDS: METOPROLOL TARTRATE 50 MG TABLET GT SCH ×2 (09:00→21:00)
[2023-02-28] MEDS: SERTRALINE HCL 50 MG TABLET GT SCH (09:00)
[2023-02-28] MEDS: MINERAL OIL/PETROLATUM,WHITE 57 GM TUBE TP SCH (09:00)
[2023-02-28] MEDS: ACIDOPHILUS/BULGARICUS CHEW TAB GT SCH ×2 (09:00→21:00)
[2023-02-28] MEDS: BACLOFEN 20 MG TABLET GT SCH ×4 (09:00→21:00)
[2023-02-28 12:43] VITALS: O2SAT 99
[2023-02-28 20:00] VITALS: TEMP 97.4; O2SAT 98
[2023-02-28] MEDS: MULTIVIT, IRON, MIN NO. 8, FA TABLET GT SCH (21:00)
[2023-02-28] MEDS: ASCORBIC ACID 500 MG TABLET GT SCH (21:00)
[2023-03-01] MEDS: OMEPRAZOLE 20 MG CAPSULE.DR GT SCH (05:38)
[2023-03-01 08:00] VITALS: TEMP 98
[2023-03-01] MEDS: BACLOFEN 20 MG TABLET GT SCH ×4 (08:44→21:53)
[2023-03-01] MEDS: ACIDOPHILUS/BULGARICUS CHEW TAB GT SCH ×2 (08:44→21:52)
[2023-03-01] MEDS: SERTRALINE HCL 50 MG TABLET GT SCH (08:45)
[2023-03-01] MEDS: MINERAL OIL/PETROLATUM,WHITE 57 GM TUBE TP SCH (08:45)
[2023-03-01] MEDS: SIMETHICONE 80 MG TAB.CHEW GT SCH ×3 (08:45→17:00)
[2023-03-01] MEDS: METOPROLOL TARTRATE 50 MG TABLET GT SCH ×2 (08:45→21:53)
[2023-03-01] MEDS: KETOCONAZOLE 2% SHAMPOO 120 ML BOTTLE TP SCH (08:45)
[2023-03-01] MEDS: REMEDY ESSENTIAL ZINC PASTE 113 GM TOP SCH ×2 (08:45→21:53)
[2023-03-01] MEDS: HYDROGEN PEROXIDE 3% 118 ML BOTTLE TP SCH ×2 (09:00→23:37)
[2023-03-01 09:50] VITALS: O2SAT 97
[2023-03-01 20:00] VITALS: TEMP 98.5
[2023-03-01] MEDS: ASCORBIC ACID 500 MG TABLET GT SCH (21:53)
[2023-03-01] MEDS: TRIAMCINOLONE ACET 0.1% OINT 15 GM TUBE TP SCH (21:54)
[2023-03-02 02:03] VITALS: O2SAT 99
[2023-03-02] MEDS: OMEPRAZOLE 20 MG CAPSULE.DR GT SCH (05:59)
[2023-03-02] MEDS: HYDROGEN PEROXIDE 3% 118 ML BOTTLE TP SCH ×2 (07:19→21:27)
[2023-03-02 07:59] VITALS: TEMP 97.1
[2023-03-02] MEDS: ACIDOPHILUS/BULGARICUS CHEW TAB GT SCH ×2 (09:40→21:31)
[2023-03-02] MEDS: BACLOFEN 20 MG TABLET GT SCH ×4 (09:40→21:31)
[2023-03-02] MEDS: SIMETHICONE 80 MG TAB.CHEW GT SCH ×3 (09:42→16:03)
[2023-03-02] MEDS: MINERAL OIL/PETROLATUM,WHITE 57 GM TUBE TP SCH (09:42)
[2023-03-02] MEDS: SERTRALINE HCL 50 MG TABLET GT SCH (09:42)
[2023-03-02] MEDS: METOPROLOL TARTRATE 50 MG TABLET GT SCH ×2 (09:42→21:32)
[2023-03-02] MEDS: REMEDY ESSENTIAL ZINC PASTE 113 GM TOP SCH ×2 (09:42→21:32)
[2023-03-02 10:50] VITALS: O2SAT 97
[2023-03-02] MEDS: GLUCERNA 1.2 1000ML LIQUID GT PRN (16:03)
[2023-03-02 19:00] VITALS: TEMP 97.7
[2023-03-02 20:20] VITALS: O2SAT 99
[2023-03-02] MEDS: ASCORBIC ACID 500 MG TABLET GT SCH (21:32)
[2023-03-02] MEDS: MULTIVIT, IRON, MIN NO. 8, FA TABLET GT SCH (21:32)
[2023-03-02 22:00] VITALS: TEMP 97.7
[2023-03-03] MEDS: OMEPRAZOLE 20 MG CAPSULE.DR GT SCH (05:05)
[2023-03-03 08:00] VITALS: TEMP 97.5
[2023-03-03] MEDS: HYDROGEN PEROXIDE 3% 118 ML BOTTLE TP SCH ×2 (08:50→19:11)
[2023-03-03] MEDS: ACIDOPHILUS/BULGARICUS CHEW TAB GT SCH ×2 (09:47→21:52)
[2023-03-03] MEDS: BACLOFEN 20 MG TABLET GT SCH ×4 (09:48→21:58)
[2023-03-03] MEDS: METOPROLOL TARTRATE 50 MG TABLET GT SCH ×2 (09:49→21:59)
[2023-03-03] MEDS: REMEDY ESSENTIAL ZINC PASTE 113 GM TOP SCH ×2 (09:49→21:59)
[2023-03-03] MEDS: SERTRALINE HCL 50 MG TABLET GT SCH (09:49)
[2023-03-03] MEDS: SIMETHICONE 80 MG TAB.CHEW GT SCH ×3 (09:49→16:41)
[2023-03-03] MEDS: MINERAL OIL/PETROLATUM,WHITE 57 GM TUBE TP SCH (09:49)
[2023-03-03 16:45] VITALS: O2SAT 99
[2023-03-03] MEDS: GLUCERNA 1.2 1000ML LIQUID GT PRN (18:32)
[2023-03-03 19:55] VITALS: O2SAT 99
[2023-03-03 20:00] VITALS: TEMP 97.4
[2023-03-03] MEDS: ASCORBIC ACID 500 MG TABLET GT SCH (21:59)
[2023-03-03 22:00] VITALS: TEMP 97.4
[2023-03-04] MEDS: OMEPRAZOLE 20 MG CAPSULE.DR GT SCH (05:17)
[2023-03-04 07:31] VITALS: TEMP 97.2
[2023-03-04] MEDS: HYDROGEN PEROXIDE 3% 118 ML BOTTLE TP SCH ×2 (08:16→19:19)
[2023-03-04] MEDS: ACIDOPHILUS/BULGARICUS CHEW TAB GT SCH ×2 (09:04→21:48)
[2023-03-04] MEDS: SIMETHICONE 80 MG TAB.CHEW GT SCH ×3 (09:05→16:58)
[2023-03-04] MEDS: BACLOFEN 20 MG TABLET GT SCH ×4 (09:05→21:47)
[2023-03-04] MEDS: MINERAL OIL/PETROLATUM,WHITE 57 GM TUBE TP SCH (09:05)
[2023-03-04] MEDS: SERTRALINE HCL 50 MG TABLET GT SCH (09:05)
[2023-03-04] MEDS: REMEDY ESSENTIAL ZINC PASTE 113 GM TOP SCH ×2 (09:05→21:48)
[2023-03-04] MEDS: METOPROLOL TARTRATE 50 MG TABLET GT SCH ×2 (09:05→21:50)
[2023-03-04 10:38] VITALS: O2SAT 98
[2023-03-04 13:49] VITALS: O2SAT 99
[2023-03-04 19:56] VITALS: TEMP 97.5
[2023-03-04 20:44] VITALS: O2SAT 99
[2023-03-04] MEDS: ASCORBIC ACID 500 MG TABLET GT SCH (21:48)
[2023-03-04] MEDS: MULTIVIT, IRON, MIN NO. 8, FA TABLET GT SCH (21:48)
[2023-03-05] MEDS: OMEPRAZOLE 20 MG CAPSULE.DR GT SCH (05:45)
[2023-03-05] MEDS: GLUCERNA 1.2 1000ML LIQUID GT PRN (05:46)
[2023-03-05 07:37] VITALS: TEMP 97.7
[2023-03-05 07:50] VITALS: TEMP 97.7
[2023-03-05] MEDS: METOPROLOL TARTRATE 50 MG TABLET GT SCH ×2 (09:00→21:00)
[2023-03-05] MEDS: BACLOFEN 20 MG TABLET GT SCH ×4 (09:31→21:00)
[2023-03-05] MEDS: ACIDOPHILUS/BULGARICUS CHEW TAB GT SCH ×2 (09:31→21:00)
[2023-03-05] MEDS: MINERAL OIL/PETROLATUM,WHITE 57 GM TUBE TP SCH (09:32)
[2023-03-05] MEDS: REMEDY ESSENTIAL ZINC PASTE 113 GM TOP SCH ×2 (09:32→21:00)
[2023-03-05] MEDS: KETOCONAZOLE 2% SHAMPOO 120 ML BOTTLE TP SCH (09:32)
[2023-03-05] MEDS: SERTRALINE HCL 50 MG TABLET GT SCH (09:32)
[2023-03-05] MEDS: SIMETHICONE 80 MG TAB.CHEW GT SCH ×3 (09:32→16:41)
[2023-03-05] MEDS: HYDROGEN PEROXIDE 3% 118 ML BOTTLE TP SCH ×2 (09:56→19:09)
[2023-03-05] MEDS: ACETAMINOPHEN 650 MG/20 ML UDC- SA PATIENTS-PAIN ONLY GT PRN (10:00)
[2023-03-05 10:50] VITALS: O2SAT 99
[2023-03-05 20:56] VITALS: TEMP 97.7
[2023-03-05] MEDS: TRIAMCINOLONE ACET 0.1% OINT 15 GM TUBE TP SCH (21:00)
[2023-03-05] MEDS: ASCORBIC ACID 500 MG TABLET GT SCH (21:00)
[2023-03-05 21:40] VITALS: O2SAT 98
[2023-03-05 22:00] VITALS: TEMP 97.7
[2023-03-06] MEDS: OMEPRAZOLE 20 MG CAPSULE.DR GT SCH (05:36)
[2023-03-06] MEDS: GLUCERNA 1.2 1000ML LIQUID GT PRN (05:36)
[2023-03-06 07:27] VITALS: TEMP 97.6
[2023-03-06 07:37] VITALS: O2SAT 97
[2023-03-06] MEDS: ACIDOPHILUS/BULGARICUS CHEW TAB GT SCH ×2 (09:36→20:16)
[2023-03-06] MEDS: BACLOFEN 20 MG TABLET GT SCH ×4 (09:37→20:18)
[2023-03-06] MEDS: REMEDY ESSENTIAL ZINC PASTE 113 GM TOP SCH ×2 (09:37→20:17)
[2023-03-06] MEDS: METOPROLOL TARTRATE 50 MG TABLET GT SCH ×2 (09:37→20:17)
[2023-03-06] MEDS: SIMETHICONE 80 MG TAB.CHEW GT SCH ×3 (09:37→16:17)
[2023-03-06] MEDS: SERTRALINE HCL 50 MG TABLET GT SCH (09:37)
[2023-03-06] MEDS: MINERAL OIL/PETROLATUM,WHITE 57 GM TUBE TP SCH (09:37)
[2023-03-06] MEDS: HYDROGEN PEROXIDE 3% 118 ML BOTTLE TP SCH ×2 (09:59→19:13)
[2023-03-06 15:37] VITALS: O2SAT 97
[2023-03-06 20:00] VITALS: TEMP 97.9
[2023-03-06 20:05] VITALS: O2SAT 99
[2023-03-06] MEDS: MULTIVIT, IRON, MIN NO. 8, FA TABLET GT SCH (20:16)
[2023-03-06] MEDS: ASCORBIC ACID 500 MG TABLET GT SCH (20:17)
[2023-03-07] MEDS: OMEPRAZOLE 20 MG CAPSULE.DR GT SCH (05:25)
[2023-03-07] MEDS: GLUCERNA 1.2 1000ML LIQUID GT PRN (05:26)
[2023-03-07 07:26] VITALS: TEMP 98.2
[2023-03-07 08:00] VITALS: O2SAT 99
[2023-03-07] MEDS: HYDROGEN PEROXIDE 3% 118 ML BOTTLE TP SCH ×2 (08:14→19:16)
[2023-03-07] MEDS: ACIDOPHILUS/BULGARICUS CHEW TAB GT SCH ×2 (09:08→21:12)
[2023-03-07] MEDS: METOPROLOL TARTRATE 50 MG TABLET GT SCH ×2 (09:09→21:14)
[2023-03-07] MEDS: BACLOFEN 20 MG TABLET GT SCH ×4 (09:09→21:14)
[2023-03-07] MEDS: SIMETHICONE 80 MG TAB.CHEW GT SCH ×3 (09:11→16:32)
[2023-03-07] MEDS: SERTRALINE HCL 50 MG TABLET GT SCH (09:11)
[2023-03-07] MEDS: REMEDY ESSENTIAL ZINC PASTE 113 GM TOP SCH ×2 (09:11→21:12)
[2023-03-07] MEDS: MINERAL OIL/PETROLATUM,WHITE 57 GM TUBE TP SCH (09:12)
[2023-03-07 19:55] VITALS: O2SAT 99
[2023-03-07 20:00] VITALS: TEMP 98.1
[2023-03-07] MEDS: ASCORBIC ACID 500 MG TABLET GT SCH (21:12)
[2023-03-07] MEDS: ACETAMINOPHEN 650 MG/20 ML UDC- SA PATIENTS-PAIN ONLY GT PRN (22:26)
[2023-03-08] MEDS: OMEPRAZOLE 20 MG CAPSULE.DR GT SCH (05:58)
[2023-03-08] MEDS: GLUCERNA 1.2 1000ML LIQUID GT PRN (05:58)
[2023-03-08 08:02] VITALS: TEMP 97.4
[2023-03-08 08:40] VITALS: O2SAT 99
[2023-03-08] MEDS: MINERAL OIL/PETROLATUM,WHITE 57 GM TUBE TP SCH (09:31)
[2023-03-08] MEDS: KETOCONAZOLE 2% SHAMPOO 120 ML BOTTLE TP SCH (09:31)
[2023-03-08] MEDS: SIMETHICONE 80 MG TAB.CHEW GT SCH ×3 (09:31→17:14)
[2023-03-08] MEDS: BACLOFEN 20 MG TABLET GT SCH ×4 (09:31→21:06)
[2023-03-08] MEDS: METOPROLOL TARTRATE 50 MG TABLET GT SCH ×2 (09:31→21:06)
[2023-03-08] MEDS: ACIDOPHILUS/BULGARICUS CHEW TAB GT SCH ×2 (09:31→21:06)
[2023-03-08] MEDS: SERTRALINE HCL 50 MG TABLET GT SCH (09:31)
[2023-03-08] MEDS: REMEDY ESSENTIAL ZINC PASTE 113 GM TOP SCH ×2 (09:31→21:07)
[2023-03-08] MEDS: HYDROGEN PEROXIDE 3% 118 ML BOTTLE TP SCH ×3 (09:43→19:29)
[2023-03-08 19:40] VITALS: O2SAT 98
[2023-03-08 19:53] VITALS: TEMP 97.6
[2023-03-08] MEDS: TRIAMCINOLONE ACET 0.1% OINT 15 GM TUBE TP SCH (21:07)
[2023-03-08] MEDS: MULTIVIT, IRON, MIN NO. 8, FA TABLET GT SCH (21:07)
[2023-03-08] MEDS: ASCORBIC ACID 500 MG TABLET GT SCH (21:07)
[2023-03-09] MEDS: GLUCERNA 1.2 1000ML LIQUID GT PRN (01:25)
[2023-03-09] MEDS: OMEPRAZOLE 20 MG CAPSULE.DR GT SCH (05:40)
[2023-03-09] MEDS: HYDROGEN PEROXIDE 3% 118 ML BOTTLE TP SCH ×2 (07:23→19:09)
[2023-03-09 07:57] VITALS: TEMP 97.8
[2023-03-09] MEDS: BACLOFEN 20 MG TABLET GT SCH ×4 (08:20→21:25)
[2023-03-09] MEDS: ACIDOPHILUS/BULGARICUS CHEW TAB GT SCH ×2 (08:20→21:25)
[2023-03-09] MEDS: METOPROLOL TARTRATE 50 MG TABLET GT SCH ×2 (08:21→21:26)
[2023-03-09] MEDS: SIMETHICONE 80 MG TAB.CHEW GT SCH ×3 (08:21→17:26)
[2023-03-09] MEDS: REMEDY ESSENTIAL ZINC PASTE 113 GM TOP SCH ×2 (08:21→21:26)
[2023-03-09] MEDS: SERTRALINE HCL 50 MG TABLET GT SCH (08:21)
[2023-03-09] MEDS: MINERAL OIL/PETROLATUM,WHITE 57 GM TUBE TP SCH (08:21)
[2023-03-09 10:37] VITALS: O2SAT 99
[2023-03-09 20:00] VITALS: TEMP 97.6
[2023-03-09 20:25] VITALS: O2SAT 99
[2023-03-09] MEDS: ASCORBIC ACID 500 MG TABLET GT SCH (21:26)
[2023-03-10] MEDS: GLUCERNA 1.2 1000ML LIQUID GT PRN (01:16)
[2023-03-10] MEDS: OMEPRAZOLE 20 MG CAPSULE.DR GT SCH (05:08)
[2023-03-10 07:25] VITALS: O2SAT 97
[2023-03-10 07:54] VITALS: TEMP 97.6
[2023-03-10] MEDS: ACIDOPHILUS/BULGARICUS CHEW TAB GT SCH ×2 (08:10→21:44)
[2023-03-10] MEDS: BACLOFEN 20 MG TABLET GT SCH ×4 (08:10→21:44)
[2023-03-10] MEDS: REMEDY ESSENTIAL ZINC PASTE 113 GM TOP SCH ×2 (08:11→21:45)
[2023-03-10] MEDS: METOPROLOL TARTRATE 50 MG TABLET GT SCH ×2 (08:11→21:45)
[2023-03-10] MEDS: SERTRALINE HCL 50 MG TABLET GT SCH (08:11)
[2023-03-10] MEDS: SIMETHICONE 80 MG TAB.CHEW GT SCH ×3 (08:11→17:29)
[2023-03-10] MEDS: MINERAL OIL/PETROLATUM,WHITE 57 GM TUBE TP SCH (08:11)
[2023-03-10] MEDS: HYDROGEN PEROXIDE 3% 118 ML BOTTLE TP SCH ×2 (09:00→19:36)
[2023-03-10 13:48] VITALS: O2SAT 97
[2023-03-10 20:00] VITALS: TEMP 97.9
[2023-03-10] MEDS: MULTIVIT, IRON, MIN NO. 8, FA TABLET GT SCH (21:45)
[2023-03-10] MEDS: ASCORBIC ACID 500 MG TABLET GT SCH (21:45)
[2023-03-11] MEDS: GLUCERNA 1.2 1000ML LIQUID GT PRN (02:33)
[2023-03-11] MEDS: ACETAMINOPHEN 650 MG/20 ML UDC- SA PATIENTS-PAIN ONLY GT PRN (02:40)
[2023-03-11] MEDS: OMEPRAZOLE 20 MG CAPSULE.DR GT SCH (05:47)
[2023-03-11 07:55] VITALS: TEMP 97.9
[2023-03-11] MEDS: REMEDY ESSENTIAL ZINC PASTE 113 GM TOP SCH ×2 (08:17→20:34)
[2023-03-11] MEDS: BACLOFEN 20 MG TABLET GT SCH ×4 (08:17→20:34)
[2023-03-11] MEDS: MINERAL OIL/PETROLATUM,WHITE 57 GM TUBE TP SCH (08:17)
[2023-03-11] MEDS: SIMETHICONE 80 MG TAB.CHEW GT SCH ×3 (08:17→17:13)
[2023-03-11] MEDS: SERTRALINE HCL 50 MG TABLET GT SCH (08:17)
[2023-03-11] MEDS: ACIDOPHILUS/BULGARICUS CHEW TAB GT SCH ×2 (08:17→20:34)
[2023-03-11] MEDS: METOPROLOL TARTRATE 50 MG TABLET GT SCH ×2 (08:17→20:34)
[2023-03-11] MEDS: HYDROGEN PEROXIDE 3% 118 ML BOTTLE TP SCH ×2 (09:31→19:14)
[2023-03-11 10:45] VITALS: O2SAT 99
[2023-03-11 19:50] VITALS: TEMP 97.4
[2023-03-11 20:10] VITALS: O2SAT 99
[2023-03-11] MEDS: ASCORBIC ACID 500 MG TABLET GT SCH (20:34)
[2023-03-12] MEDS: GLUCERNA 1.2 1000ML LIQUID GT PRN (04:00)
[2023-03-12] MEDS: OMEPRAZOLE 20 MG CAPSULE.DR GT SCH (05:37)
[2023-03-12 07:38] VITALS: TEMP 98.3
[2023-03-12] MEDS: HYDROGEN PEROXIDE 3% 118 ML BOTTLE TP SCH ×2 (08:01→19:02)
[2023-03-12 08:45] VITALS: O2SAT 99
[2023-03-12] MEDS: METOPROLOL TARTRATE 50 MG TABLET GT SCH ×2 (09:46→21:57)
[2023-03-12] MEDS: ACIDOPHILUS/BULGARICUS CHEW TAB GT SCH ×2 (09:46→21:56)
[2023-03-12] MEDS: SIMETHICONE 80 MG TAB.CHEW GT SCH ×3 (09:46→17:00)
[2023-03-12] MEDS: BACLOFEN 20 MG TABLET GT SCH ×4 (09:46→21:56)
[2023-03-12] MEDS: MINERAL OIL/PETROLATUM,WHITE 57 GM TUBE TP SCH (09:47)
[2023-03-12] MEDS: SERTRALINE HCL 50 MG TABLET GT SCH (09:47)
[2023-03-12] MEDS: KETOCONAZOLE 2% SHAMPOO 120 ML BOTTLE TP SCH (09:47)
[2023-03-12] MEDS: REMEDY ESSENTIAL ZINC PASTE 113 GM TOP SCH ×2 (09:47→21:57)
[2023-03-12 19:30] VITALS: O2SAT 99
[2023-03-12 19:49] VITALS: TEMP 97.7
[2023-03-12] MEDS: ASCORBIC ACID 500 MG TABLET GT SCH (21:57)
[2023-03-12] MEDS: MULTIVIT, IRON, MIN NO. 8, FA TABLET GT SCH (21:57)
[2023-03-12] MEDS: TRIAMCINOLONE ACET 0.1% OINT 15 GM TUBE TP SCH (21:57)
[2023-03-13] MEDS: GLUCERNA 1.2 1000ML LIQUID GT PRN (03:32)
[2023-03-13] MEDS: OMEPRAZOLE 20 MG CAPSULE.DR GT SCH (05:18)
[2023-03-13 07:26] VITALS: O2SAT 97
[2023-03-13] MEDS: HYDROGEN PEROXIDE 3% 118 ML BOTTLE TP SCH ×2 (09:00→19:20)
[2023-03-13] MEDS: SERTRALINE HCL 50 MG TABLET GT SCH (09:00)
[2023-03-13] MEDS: REMEDY ESSENTIAL ZINC PASTE 113 GM TOP SCH ×2 (09:00→21:26)
[2023-03-13] MEDS: ACIDOPHILUS/BULGARICUS CHEW TAB GT SCH ×2 (09:00→21:25)
[2023-03-13] MEDS: MINERAL OIL/PETROLATUM,WHITE 57 GM TUBE TP SCH (09:00)
[2023-03-13] MEDS: BACLOFEN 20 MG TABLET GT SCH ×4 (09:00→21:25)
[2023-03-13] MEDS: METOPROLOL TARTRATE 50 MG TABLET GT SCH ×2 (09:00→21:26)
[2023-03-13] MEDS: SIMETHICONE 80 MG TAB.CHEW GT SCH ×3 (09:00→16:55)
[2023-03-13] MEDS ORDERED: COVID-19 VACC, SPIKEVAX (PHA) 50 MCG/0.5 ML VIAL IM ONE (14:00)
[2023-03-13 14:20] VITALS: O2SAT 97
[2023-03-13 19:55] VITALS: O2SAT 99
[2023-03-13 20:00] VITALS: TEMP 98.1
[2023-03-13] MEDS: ASCORBIC ACID 500 MG TABLET GT SCH (21:26)
[2023-03-14] VITALS (9 sets, daily range): TEMP 96.9–99.4; O2SAT 99
[2023-03-14] MEDS: OMEPRAZOLE 20 MG CAPSULE.DR GT SCH (05:53)
[2023-03-14] MEDS: GLUCERNA 1.2 1000ML LIQUID GT PRN (05:54)
[2023-03-14] MEDS: HYDROGEN PEROXIDE 3% 118 ML BOTTLE TP SCH ×2 (09:00→19:18)
[2023-03-14] MEDS: BACLOFEN 20 MG TABLET GT SCH ×4 (09:57→21:17)
[2023-03-14] MEDS: ACIDOPHILUS/BULGARICUS CHEW TAB GT SCH ×2 (09:57→21:16)
[2023-03-14] MEDS: SIMETHICONE 80 MG TAB.CHEW GT SCH ×3 (09:58→16:18)
[2023-03-14] MEDS: SERTRALINE HCL 50 MG TABLET GT SCH (09:58)
[2023-03-14] MEDS: METOPROLOL TARTRATE 50 MG TABLET GT SCH ×2 (09:58→21:17)
[2023-03-14] MEDS: REMEDY ESSENTIAL ZINC PASTE 113 GM TOP SCH ×2 (09:58→21:18)
[2023-03-14] MEDS: MINERAL OIL/PETROLATUM,WHITE 57 GM TUBE TP SCH (09:59)
[2023-03-14] MEDS: MULTIVIT, IRON, MIN NO. 8, FA TABLET GT SCH (21:17)
[2023-03-14] MEDS: ASCORBIC ACID 500 MG TABLET GT SCH (21:18)
[2023-03-15] VITALS (8 sets, daily range): TEMP 97.9–99.2; O2SAT 97–99
[2023-03-15] MEDS: OMEPRAZOLE 20 MG CAPSULE.DR GT SCH (06:05)
[2023-03-15] MEDS: ACIDOPHILUS/BULGARICUS CHEW TAB GT SCH ×2 (09:00→21:39)
[2023-03-15] MEDS: METOPROLOL TARTRATE 50 MG TABLET GT SCH ×2 (09:00→21:39)
[2023-03-15] MEDS: REMEDY ESSENTIAL ZINC PASTE 113 GM TOP SCH ×2 (09:00→21:39)
[2023-03-15] MEDS: BACLOFEN 20 MG TABLET GT SCH ×4 (09:00→21:39)
[2023-03-15] MEDS: HYDROGEN PEROXIDE 3% 118 ML BOTTLE TP SCH ×2 (09:00→19:11)
[2023-03-15] MEDS: MINERAL OIL/PETROLATUM,WHITE 57 GM TUBE TP SCH (09:00)
[2023-03-15] MEDS: KETOCONAZOLE 2% SHAMPOO 120 ML BOTTLE TP SCH (09:00)
[2023-03-15] MEDS: SIMETHICONE 80 MG TAB.CHEW GT SCH ×3 (09:00→17:00)
[2023-03-15] MEDS: SERTRALINE HCL 50 MG TABLET GT SCH (09:00)
[2023-03-15] MEDS: ASCORBIC ACID 500 MG TABLET GT SCH (21:39)
[2023-03-15] MEDS: TRIAMCINOLONE ACET 0.1% OINT 15 GM TUBE TP SCH (21:40)
[2023-03-16] VITALS (8 sets, daily range): TEMP 97.6–98.2; O2SAT 97–99
[2023-03-16] MEDS: OMEPRAZOLE 20 MG CAPSULE.DR GT SCH (05:28)
[2023-03-16] MEDS: HYDROGEN PEROXIDE 3% 118 ML BOTTLE TP SCH ×2 (08:35→19:11)
[2023-03-16] MEDS: ACIDOPHILUS/BULGARICUS CHEW TAB GT SCH ×2 (09:00→20:50)
[2023-03-16] MEDS: SIMETHICONE 80 MG TAB.CHEW GT SCH ×3 (09:00→16:40)
[2023-03-16] MEDS: METOPROLOL TARTRATE 50 MG TABLET GT SCH ×2 (09:00→20:51)
[2023-03-16] MEDS: BACLOFEN 20 MG TABLET GT SCH ×4 (09:00→20:50)
[2023-03-16] MEDS: SERTRALINE HCL 50 MG TABLET GT SCH (09:00)
[2023-03-16] MEDS: REMEDY ESSENTIAL ZINC PASTE 113 GM TOP SCH ×2 (09:00→20:51)
[2023-03-16] MEDS: MINERAL OIL/PETROLATUM,WHITE 57 GM TUBE TP SCH (09:00)
[2023-03-16] MEDS: GLUCERNA 1.2 1000ML LIQUID GT PRN (10:25)
[2023-03-16] MEDS: MULTIVIT, IRON, MIN NO. 8, FA TABLET GT SCH (20:51)
[2023-03-16] MEDS: ASCORBIC ACID 500 MG TABLET GT SCH (20:51)
[2023-03-17 00:48] VITALS: TEMP 97.4
[2023-03-17] MEDS: OMEPRAZOLE 20 MG CAPSULE.DR GT SCH (05:15)
[2023-03-17] MEDS: HYDROGEN PEROXIDE 3% 118 ML BOTTLE TP SCH ×2 (07:18→19:21)
[2023-03-17 07:33] VITALS: TEMP 97.6
[2023-03-17] MEDS: ACIDOPHILUS/BULGARICUS CHEW TAB GT SCH ×2 (09:00→20:53)
[2023-03-17] MEDS: METOPROLOL TARTRATE 50 MG TABLET GT SCH ×2 (09:00→20:55)
[2023-03-17] MEDS: MINERAL OIL/PETROLATUM,WHITE 57 GM TUBE TP SCH (09:00)
[2023-03-17] MEDS: SERTRALINE HCL 50 MG TABLET GT SCH (09:00)
[2023-03-17] MEDS: SIMETHICONE 80 MG TAB.CHEW GT SCH ×3 (09:00→17:00)
[2023-03-17] MEDS: BACLOFEN 20 MG TABLET GT SCH ×4 (09:00→20:53)
[2023-03-17] MEDS: REMEDY ESSENTIAL ZINC PASTE 113 GM TOP SCH ×2 (09:00→20:56)
[2023-03-17 10:14] VITALS: O2SAT 97
[2023-03-17] MEDS: GLUCERNA 1.2 1000ML LIQUID GT PRN (11:22)
[2023-03-17 20:00] VITALS: TEMP 97.7
[2023-03-17] MEDS: ASCORBIC ACID 500 MG TABLET GT SCH (20:55)
[2023-03-17] MEDS: ACETAMINOPHEN 650 MG/20 ML UDC- SA PATIENTS-PAIN ONLY GT PRN (20:56)
[2023-03-17 21:01] VITALS: O2SAT 99
[2023-03-18] MEDS: OMEPRAZOLE 20 MG CAPSULE.DR GT SCH (05:32)
[2023-03-18 08:00] VITALS: TEMP 97.6
[2023-03-18] MEDS: SIMETHICONE 80 MG TAB.CHEW GT SCH ×3 (08:47→16:09)
[2023-03-18] MEDS: BACLOFEN 20 MG TABLET GT SCH ×4 (08:47→20:40)
[2023-03-18] MEDS: METOPROLOL TARTRATE 50 MG TABLET GT SCH ×2 (08:47→20:40)
[2023-03-18] MEDS: HYDROGEN PEROXIDE 3% 118 ML BOTTLE TP SCH ×2 (08:50→21:22)
[2023-03-18] MEDS: SERTRALINE HCL 50 MG TABLET GT SCH (08:52)
[2023-03-18] MEDS: REMEDY ESSENTIAL ZINC PASTE 113 GM TOP SCH ×2 (08:52→20:40)
[2023-03-18] MEDS: MINERAL OIL/PETROLATUM,WHITE 57 GM TUBE TP SCH (08:52)
[2023-03-18] MEDS: ACIDOPHILUS/BULGARICUS CHEW TAB GT SCH ×2 (08:54→20:40)
[2023-03-18] MEDS: GLUCERNA 1.2 1000ML LIQUID GT PRN (16:09)
[2023-03-18 20:00] VITALS: TEMP 97.4
[2023-03-18] MEDS: MULTIVIT, IRON, MIN NO. 8, FA TABLET GT SCH (20:40)
[2023-03-18] MEDS: ASCORBIC ACID 500 MG TABLET GT SCH (20:40)
[2023-03-19 02:01] VITALS: O2SAT 99
[2023-03-19] MEDS: OMEPRAZOLE 20 MG CAPSULE.DR GT SCH (05:11)
[2023-03-19 07:25] VITALS: TEMP 97
[2023-03-19] MEDS: BACLOFEN 20 MG TABLET GT SCH ×4 (08:54→21:43)
[2023-03-19] MEDS: ACIDOPHILUS/BULGARICUS CHEW TAB GT SCH ×2 (08:54→21:42)
[2023-03-19] MEDS: MINERAL OIL/PETROLATUM,WHITE 57 GM TUBE TP SCH (08:55)
[2023-03-19] MEDS: REMEDY ESSENTIAL ZINC PASTE 113 GM TOP SCH ×2 (08:55→21:43)
[2023-03-19] MEDS: SERTRALINE HCL 50 MG TABLET GT SCH (08:55)
[2023-03-19] MEDS: METOPROLOL TARTRATE 50 MG TABLET GT SCH ×2 (08:55→21:49)
[2023-03-19] MEDS: SIMETHICONE 80 MG TAB.CHEW GT SCH ×3 (08:55→17:20)
[2023-03-19] MEDS: KETOCONAZOLE 2% SHAMPOO 120 ML BOTTLE TP SCH (08:55)
[2023-03-19] MEDS: HYDROGEN PEROXIDE 3% 118 ML BOTTLE TP SCH ×2 (09:37→21:45)
[2023-03-19 10:45] VITALS: O2SAT 98
[2023-03-19 20:00] VITALS: TEMP 97.9
[2023-03-19] MEDS: TRIAMCINOLONE ACET 0.1% OINT 15 GM TUBE TP SCH (21:00)
[2023-03-19] MEDS: ASCORBIC ACID 500 MG TABLET GT SCH (21:43)
[2023-03-20] VITALS (7 sets, daily range): TEMP 97.9–98.3; O2SAT 97
[2023-03-20] MEDS: OMEPRAZOLE 20 MG CAPSULE.DR GT SCH (05:48)
[2023-03-20] MEDS: HYDROGEN PEROXIDE 3% 118 ML BOTTLE TP SCH ×2 (08:09→19:20)
[2023-03-20] MEDS: BACLOFEN 20 MG TABLET GT SCH ×4 (09:00→21:28)
[2023-03-20] MEDS: METOPROLOL TARTRATE 50 MG TABLET GT SCH ×2 (09:00→21:29)
[2023-03-20] MEDS: ACIDOPHILUS/BULGARICUS CHEW TAB GT SCH ×2 (09:00→21:28)
[2023-03-20] MEDS: MINERAL OIL/PETROLATUM,WHITE 57 GM TUBE TP SCH (09:00)
[2023-03-20] MEDS: SERTRALINE HCL 50 MG TABLET GT SCH (09:00)
[2023-03-20] MEDS: SIMETHICONE 80 MG TAB.CHEW GT SCH ×3 (09:00→17:09)
[2023-03-20] MEDS: REMEDY ESSENTIAL ZINC PASTE 113 GM TOP SCH ×2 (09:00→21:29)
[2023-03-20] MEDS: GLUCERNA 1.2 1000ML LIQUID GT PRN (11:56)
[2023-03-20] MEDS: MULTIVIT, IRON, MIN NO. 8, FA TABLET GT SCH (21:29)
[2023-03-20] MEDS: ASCORBIC ACID 500 MG TABLET GT SCH (21:29)
[2023-03-21] MEDS: OMEPRAZOLE 20 MG CAPSULE.DR GT SCH (05:48)
[2023-03-21 08:00] VITALS: TEMP 96.8
[2023-03-21] MEDS: HYDROGEN PEROXIDE 3% 118 ML BOTTLE TP SCH ×2 (09:14→19:24)
[2023-03-21] MEDS: ACIDOPHILUS/BULGARICUS CHEW TAB GT SCH ×2 (09:40→20:35)
[2023-03-21] MEDS: BACLOFEN 20 MG TABLET GT SCH ×4 (09:42→20:35)
[2023-03-21] MEDS: REMEDY ESSENTIAL ZINC PASTE 113 GM TOP SCH ×2 (09:43→20:37)
[2023-03-21] MEDS: SERTRALINE HCL 50 MG TABLET GT SCH (09:43)
[2023-03-21] MEDS: METOPROLOL TARTRATE 50 MG TABLET GT SCH ×2 (09:43→20:35)
[2023-03-21] MEDS: SIMETHICONE 80 MG TAB.CHEW GT SCH ×3 (09:43→17:12)
[2023-03-21] MEDS: MINERAL OIL/PETROLATUM,WHITE 57 GM TUBE TP SCH (09:44)
[2023-03-21 10:00] VITALS: O2SAT 97
[2023-03-21] MEDS: GLUCERNA 1.2 1000ML LIQUID GT PRN (15:01)
[2023-03-21 20:00] VITALS: TEMP 98.1
[2023-03-21] MEDS: ASCORBIC ACID 500 MG TABLET GT SCH (20:36)
[2023-03-21 23:11] VITALS: O2SAT 97
[2023-03-22] MEDS: OMEPRAZOLE 20 MG CAPSULE.DR GT SCH (05:37)
[2023-03-22 08:00] VITALS: TEMP 97.6
[2023-03-22] MEDS: HYDROGEN PEROXIDE 3% 118 ML BOTTLE TP SCH ×2 (09:00→21:58)
[2023-03-22] MEDS: BACLOFEN 20 MG TABLET GT SCH ×4 (09:20→20:52)
[2023-03-22] MEDS: ACIDOPHILUS/BULGARICUS CHEW TAB GT SCH ×2 (09:20→20:52)
[2023-03-22] MEDS: METOPROLOL TARTRATE 50 MG TABLET GT SCH ×2 (09:21→20:54)
[2023-03-22] MEDS: SERTRALINE HCL 50 MG TABLET GT SCH (09:21)
[2023-03-22] MEDS: KETOCONAZOLE 2% SHAMPOO 120 ML BOTTLE TP SCH (09:21)
[2023-03-22] MEDS: REMEDY ESSENTIAL ZINC PASTE 113 GM TOP SCH ×2 (09:21→20:52)
[2023-03-22] MEDS: MINERAL OIL/PETROLATUM,WHITE 57 GM TUBE TP SCH (09:21)
[2023-03-22] MEDS: SIMETHICONE 80 MG TAB.CHEW GT SCH ×3 (09:21→16:50)
[2023-03-22] MEDS: GLUCERNA 1.2 1000ML LIQUID GT PRN (16:50)
[2023-03-22 19:40] VITALS: O2SAT 97
[2023-03-22 20:00] VITALS: TEMP 97.9
[2023-03-22] MEDS: MULTIVIT, IRON, MIN NO. 8, FA TABLET GT SCH (20:52)
[2023-03-22] MEDS: ASCORBIC ACID 500 MG TABLET GT SCH (20:52)
[2023-03-22] MEDS: TRIAMCINOLONE ACET 0.1% OINT 15 GM TUBE TP SCH (20:54)
[2023-03-23] MEDS: OMEPRAZOLE 20 MG CAPSULE.DR GT SCH (05:14)
[2023-03-23 08:00] VITALS: TEMP 97.8
[2023-03-23] MEDS: HYDROGEN PEROXIDE 3% 118 ML BOTTLE TP SCH ×2 (09:00→19:08)
[2023-03-23] MEDS: ACIDOPHILUS/BULGARICUS CHEW TAB GT SCH ×2 (09:05→21:52)
[2023-03-23] MEDS: BACLOFEN 20 MG TABLET GT SCH ×4 (09:06→21:52)
[2023-03-23] MEDS: SERTRALINE HCL 50 MG TABLET GT SCH (09:07)
[2023-03-23] MEDS: METOPROLOL TARTRATE 50 MG TABLET GT SCH ×2 (09:07→21:53)
[2023-03-23] MEDS: SIMETHICONE 80 MG TAB.CHEW GT SCH ×3 (09:07→17:07)
[2023-03-23] MEDS: REMEDY ESSENTIAL ZINC PASTE 113 GM TOP SCH ×2 (09:08→21:53)
[2023-03-23] MEDS: MINERAL OIL/PETROLATUM,WHITE 57 GM TUBE TP SCH (09:09)
[2023-03-23 10:45] VITALS: O2SAT 99
[2023-03-23] MEDS: GLUCERNA 1.2 1000ML LIQUID GT PRN (17:12)
[2023-03-23 20:00] VITALS: TEMP 97.6
[2023-03-23 20:45] VITALS: O2SAT 97
[2023-03-23] MEDS: ASCORBIC ACID 500 MG TABLET GT SCH (21:53)
[2023-03-24] MEDS: OMEPRAZOLE 20 MG CAPSULE.DR GT SCH (06:03)
[2023-03-24 08:00] VITALS: TEMP 97.5
[2023-03-24] MEDS: HYDROGEN PEROXIDE 3% 118 ML BOTTLE TP SCH ×2 (08:07→19:08)
[2023-03-24] MEDS: BACLOFEN 20 MG TABLET GT SCH ×4 (09:44→20:57)
[2023-03-24] MEDS: ACIDOPHILUS/BULGARICUS CHEW TAB GT SCH ×2 (09:44→20:56)
[2023-03-24] MEDS: SIMETHICONE 80 MG TAB.CHEW GT SCH ×3 (09:45→17:25)
[2023-03-24] MEDS: SERTRALINE HCL 50 MG TABLET GT SCH (09:45)
[2023-03-24] MEDS: MINERAL OIL/PETROLATUM,WHITE 57 GM TUBE TP SCH (09:45)
[2023-03-24] MEDS: REMEDY ESSENTIAL ZINC PASTE 113 GM TOP SCH ×2 (09:45→20:58)
[2023-03-24] MEDS: METOPROLOL TARTRATE 50 MG TABLET GT SCH ×2 (09:45→20:58)
[2023-03-24 10:45] VITALS: O2SAT 98
[2023-03-24] MEDS: GLUCERNA 1.2 1000ML LIQUID GT PRN (17:26)
[2023-03-24 20:00] VITALS: TEMP 97.9
[2023-03-24 20:04] VITALS: O2SAT 97
[2023-03-24] MEDS: MULTIVIT, IRON, MIN NO. 8, FA TABLET GT SCH (20:58)
[2023-03-24] MEDS: ASCORBIC ACID 500 MG TABLET GT SCH (20:58)
[2023-03-25] MEDS: OMEPRAZOLE 20 MG CAPSULE.DR GT SCH (05:18)
[2023-03-25 07:46] VITALS: TEMP 97.9
[2023-03-25] MEDS: SERTRALINE HCL 50 MG TABLET GT SCH (09:00)
[2023-03-25] MEDS: ACIDOPHILUS/BULGARICUS CHEW TAB GT SCH ×2 (09:00→21:53)
[2023-03-25] MEDS: METOPROLOL TARTRATE 50 MG TABLET GT SCH ×2 (09:00→21:54)
[2023-03-25] MEDS: MINERAL OIL/PETROLATUM,WHITE 57 GM TUBE TP SCH (09:00)
[2023-03-25] MEDS: SIMETHICONE 80 MG TAB.CHEW GT SCH ×3 (09:00→17:34)
[2023-03-25] MEDS: REMEDY ESSENTIAL ZINC PASTE 113 GM TOP SCH ×2 (09:00→21:53)
[2023-03-25] MEDS: BACLOFEN 20 MG TABLET GT SCH ×4 (09:00→21:54)
[2023-03-25] MEDS: HYDROGEN PEROXIDE 3% 118 ML BOTTLE TP SCH ×2 (09:34→19:09)
[2023-03-25 10:40] VITALS: O2SAT 99
[2023-03-25] MEDS: GLUCERNA 1.2 1000ML LIQUID GT PRN (18:36)
[2023-03-25 20:00] VITALS: TEMP 97.5
[2023-03-25 20:25] VITALS: O2SAT 97
[2023-03-25] MEDS: ASCORBIC ACID 500 MG TABLET GT SCH (21:53)
[2023-03-26] MEDS: OMEPRAZOLE 20 MG CAPSULE.DR GT SCH (05:17)
[2023-03-26] MEDS: HYDROGEN PEROXIDE 3% 118 ML BOTTLE TP SCH ×2 (07:12→21:22)
[2023-03-26 07:21] VITALS: TEMP 98.5
[2023-03-26] MEDS: KETOCONAZOLE 2% SHAMPOO 120 ML BOTTLE TP SCH (09:00)
[2023-03-26] MEDS: MINERAL OIL/PETROLATUM,WHITE 57 GM TUBE TP SCH (09:00)
[2023-03-26] MEDS: SIMETHICONE 80 MG TAB.CHEW GT SCH ×3 (09:00→17:23)
[2023-03-26] MEDS: ACIDOPHILUS/BULGARICUS CHEW TAB GT SCH ×2 (09:00→20:25)
[2023-03-26] MEDS: SERTRALINE HCL 50 MG TABLET GT SCH (09:00)
[2023-03-26] MEDS: REMEDY ESSENTIAL ZINC PASTE 113 GM TOP SCH ×2 (09:00→20:27)
[2023-03-26] MEDS: METOPROLOL TARTRATE 50 MG TABLET GT SCH ×2 (09:00→20:26)
[2023-03-26] MEDS: BACLOFEN 20 MG TABLET GT SCH ×4 (09:00→20:25)
[2023-03-26 10:22] VITALS: O2SAT 99
[2023-03-26 19:25] VITALS: O2SAT 97
[2023-03-26 20:00] VITALS: TEMP 98
[2023-03-26] MEDS: MULTIVIT, IRON, MIN NO. 8, FA TABLET GT SCH (20:26)
[2023-03-26] MEDS: ASCORBIC ACID 500 MG TABLET GT SCH (20:26)
[2023-03-26] MEDS: TRIAMCINOLONE ACET 0.1% OINT 15 GM TUBE TP SCH (21:53)
[2023-03-27] MEDS: OMEPRAZOLE 20 MG CAPSULE.DR GT SCH (05:14)
[2023-03-27 07:21] VITALS: TEMP 97.6
[2023-03-27] MEDS: HYDROGEN PEROXIDE 3% 118 ML BOTTLE TP SCH ×2 (07:38→21:00)
[2023-03-27] MEDS: ACIDOPHILUS/BULGARICUS CHEW TAB GT SCH ×2 (09:51→21:27)
[2023-03-27] MEDS: METOPROLOL TARTRATE 50 MG TABLET GT SCH ×2 (09:51→21:28)
[2023-03-27] MEDS: BACLOFEN 20 MG TABLET GT SCH ×4 (09:51→21:27)
[2023-03-27] MEDS: SIMETHICONE 80 MG TAB.CHEW GT SCH ×3 (09:52→17:42)
[2023-03-27] MEDS: SERTRALINE HCL 50 MG TABLET GT SCH (09:52)
[2023-03-27] MEDS: NEOMY/BACITRA/POLYMYXIN B OINT UD PACKET TP SCH ×2 (09:52→21:29)
[2023-03-27] MEDS: REMEDY ESSENTIAL ZINC PASTE 113 GM TOP SCH ×2 (09:52→21:29)
[2023-03-27] MEDS: MINERAL OIL/PETROLATUM,WHITE 57 GM TUBE TP SCH (09:52)
[2023-03-27 10:30] VITALS: O2SAT 97
[2023-03-27 20:00] VITALS: TEMP 98
[2023-03-27] MEDS: ASCORBIC ACID 500 MG TABLET GT SCH (21:29)
[2023-03-28 04:04] VITALS: O2SAT 98
[2023-03-28] MEDS: OMEPRAZOLE 20 MG CAPSULE.DR GT SCH (05:23)
[2023-03-28 07:33] VITALS: TEMP 98.8
[2023-03-28] MEDS: HYDROGEN PEROXIDE 3% 118 ML BOTTLE TP SCH ×2 (08:42→20:56)
[2023-03-28] MEDS: BACLOFEN 20 MG TABLET GT SCH ×4 (09:26→21:41)
[2023-03-28] MEDS: SIMETHICONE 80 MG TAB.CHEW GT SCH ×3 (09:26→17:46)
[2023-03-28] MEDS: SERTRALINE HCL 50 MG TABLET GT SCH (09:26)
[2023-03-28] MEDS: REMEDY ESSENTIAL ZINC PASTE 113 GM TOP SCH ×2 (09:26→21:41)
[2023-03-28] MEDS: ACIDOPHILUS/BULGARICUS CHEW TAB GT SCH ×2 (09:26→21:40)
[2023-03-28] MEDS: METOPROLOL TARTRATE 50 MG TABLET GT SCH ×2 (09:26→21:41)
[2023-03-28] MEDS: NEOMY/BACITRA/POLYMYXIN B OINT UD PACKET TP SCH ×2 (09:26→21:41)
[2023-03-28] MEDS: MINERAL OIL/PETROLATUM,WHITE 57 GM TUBE TP SCH (09:26)
[2023-03-28 16:25] VITALS: O2SAT 99
[2023-03-28 19:50] VITALS: O2SAT 97
[2023-03-28 20:00] VITALS: TEMP 98.2; TEMP 98.7
[2023-03-28] MEDS: GLUCERNA 1.2 1000ML LIQUID GT PRN (20:00)
[2023-03-28] MEDS: ASCORBIC ACID 500 MG TABLET GT SCH (21:41)
[2023-03-28] MEDS: MULTIVIT, IRON, MIN NO. 8, FA TABLET GT SCH (21:41)
[2023-03-29] MEDS: OMEPRAZOLE 20 MG CAPSULE.DR GT SCH (05:52)
[2023-03-29 07:26] VITALS: TEMP 97.6
[2023-03-29] MEDS: BACLOFEN 20 MG TABLET GT SCH ×4 (09:22→21:33)
[2023-03-29] MEDS: ACIDOPHILUS/BULGARICUS CHEW TAB GT SCH ×2 (09:22→21:33)
[2023-03-29] MEDS: SIMETHICONE 80 MG TAB.CHEW GT SCH ×3 (09:23→16:33)
[2023-03-29] MEDS: REMEDY ESSENTIAL ZINC PASTE 113 GM TOP SCH ×2 (09:23→21:35)
[2023-03-29] MEDS: METOPROLOL TARTRATE 50 MG TABLET GT SCH ×2 (09:23→21:35)
[2023-03-29] MEDS: SERTRALINE HCL 50 MG TABLET GT SCH (09:23)
[2023-03-29] MEDS: KETOCONAZOLE 2% SHAMPOO 120 ML BOTTLE TP SCH (09:24)
[2023-03-29] MEDS: MINERAL OIL/PETROLATUM,WHITE 57 GM TUBE TP SCH (09:24)
[2023-03-29] MEDS: NEOMY/BACITRA/POLYMYXIN B OINT UD PACKET TP SCH ×2 (09:24→21:35)
[2023-03-29] MEDS: HYDROGEN PEROXIDE 3% 118 ML BOTTLE TP SCH ×2 (09:32→19:14)
[2023-03-29 19:58] VITALS: TEMP 97.5
[2023-03-29 20:20] VITALS: O2SAT 98
[2023-03-29] MEDS: ASCORBIC ACID 500 MG TABLET GT SCH (21:35)
[2023-03-29] MEDS: TRIAMCINOLONE ACET 0.1% OINT 15 GM TUBE TP SCH (21:35)
[2023-03-29] MEDS: GLUCERNA 1.2 1000ML LIQUID GT PRN (22:30)
[2023-03-30] MEDS: OMEPRAZOLE 20 MG CAPSULE.DR GT SCH (05:23)
[2023-03-30 07:29] VITALS: TEMP 97.8
[2023-03-30] MEDS: ACIDOPHILUS/BULGARICUS CHEW TAB GT SCH ×2 (08:23→21:21)
[2023-03-30] MEDS: BACLOFEN 20 MG TABLET GT SCH ×4 (08:23→21:18)
[2023-03-30] MEDS: METOPROLOL TARTRATE 50 MG TABLET GT SCH ×2 (08:29→21:18)
[2023-03-30] MEDS: SERTRALINE HCL 50 MG TABLET GT SCH (08:29)
[2023-03-30] MEDS: REMEDY ESSENTIAL ZINC PASTE 113 GM TOP SCH ×2 (08:29→21:19)
[2023-03-30] MEDS: SIMETHICONE 80 MG TAB.CHEW GT SCH ×3 (08:29→17:53)
[2023-03-30] MEDS: MINERAL OIL/PETROLATUM,WHITE 57 GM TUBE TP SCH (08:31)
[2023-03-30] MEDS: NEOMY/BACITRA/POLYMYXIN B OINT UD PACKET TP SCH ×2 (08:31→21:19)
[2023-03-30] MEDS: HYDROGEN PEROXIDE 3% 118 ML BOTTLE TP SCH ×2 (09:30→21:35)
[2023-03-30 10:50] VITALS: O2SAT 98
[2023-03-30 19:40] VITALS: O2SAT 97
[2023-03-30 20:00] VITALS: TEMP 96.9
[2023-03-30] MEDS: MULTIVIT, IRON, MIN NO. 8, FA TABLET GT SCH (21:18)
[2023-03-30] MEDS: ASCORBIC ACID 500 MG TABLET GT SCH (21:19)
[2023-03-30] MEDS: ACETAMINOPHEN 650 MG/20 ML UDC- SA PATIENTS-PAIN ONLY GT PRN (21:22)
[2023-03-30] MEDS: GLUCERNA 1.2 1000ML LIQUID GT PRN (21:25)
[2023-03-31] MEDS ORDERED: COD LIVER OIL/ZINC OXIDE OINT 113 GM TUBE TOP SCH (02:45)
[2023-03-31] MEDS: OMEPRAZOLE 20 MG CAPSULE.DR GT SCH (05:05)
[2023-03-31] MEDS: HYDROGEN PEROXIDE 3% 118 ML BOTTLE TP SCH ×2 (07:15→21:00)
[2023-03-31 07:16] VITALS: O2SAT 98
[2023-03-31 08:00] VITALS: TEMP 97.6
[2023-03-31] MEDS: ACIDOPHILUS/BULGARICUS CHEW TAB GT SCH ×2 (09:35→20:21)
[2023-03-31] MEDS: BACLOFEN 20 MG TABLET GT SCH ×4 (09:35→20:21)
[2023-03-31] MEDS: SERTRALINE HCL 50 MG TABLET GT SCH (09:36)
[2023-03-31] MEDS: SIMETHICONE 80 MG TAB.CHEW GT SCH ×3 (09:36→16:30)
[2023-03-31] MEDS: METOPROLOL TARTRATE 50 MG TABLET GT SCH ×2 (09:36→20:25)
[2023-03-31] MEDS: COD LIVER OIL/ZINC OXIDE OINT 113 GM TUBE TOP SCH ×2 (09:37→20:26)
[2023-03-31] MEDS: REMEDY ESSENTIAL ZINC PASTE 113 GM TOP SCH ×2 (09:37→20:26)
[2023-03-31] MEDS: NEOMY/BACITRA/POLYMYXIN B OINT UD PACKET TP SCH ×2 (09:37→20:26)
[2023-03-31] MEDS: MINERAL OIL/PETROLATUM,WHITE 57 GM TUBE TP SCH (09:37)
[2023-03-31 17:27] VITALS: TEMP 97.7
[2023-03-31] MEDS: GLUCERNA 1.2 1000ML LIQUID GT PRN (18:59)
[2023-03-31 20:00] VITALS: TEMP 96.9; TEMP 97.1
[2023-03-31] MEDS: ASCORBIC ACID 500 MG TABLET GT SCH (20:25)
[2023-03-31 22:08] VITALS: O2SAT 97
[2023-04-01] MEDS: OMEPRAZOLE 20 MG CAPSULE.DR GT SCH (05:40)
[2023-04-01 07:31] VITALS: TEMP 98.5
[2023-04-01] MEDS: BACLOFEN 20 MG TABLET GT SCH ×4 (08:55→21:04)
[2023-04-01] MEDS: ACIDOPHILUS/BULGARICUS CHEW TAB GT SCH ×2 (08:55→21:04)
[2023-04-01] MEDS: SERTRALINE HCL 50 MG TABLET GT SCH (08:56)
[2023-04-01] MEDS: SIMETHICONE 80 MG TAB.CHEW GT SCH ×3 (08:56→16:44)
[2023-04-01] MEDS: COD LIVER OIL/ZINC OXIDE OINT 113 GM TUBE TOP SCH ×2 (08:57→21:05)
[2023-04-01] MEDS: REMEDY ESSENTIAL ZINC PASTE 113 GM TOP SCH ×2 (08:57→21:05)
[2023-04-01] MEDS: MINERAL OIL/PETROLATUM,WHITE 57 GM TUBE TP SCH (08:57)
[2023-04-01] MEDS: NEOMY/BACITRA/POLYMYXIN B OINT UD PACKET TP SCH ×2 (08:58→21:05)
[2023-04-01] MEDS: METOPROLOL TARTRATE 50 MG TABLET GT SCH ×2 (09:01→21:05)
[2023-04-01] MEDS: HYDROGEN PEROXIDE 3% 118 ML BOTTLE TP SCH ×2 (09:59→19:15)
[2023-04-01 14:06] VITALS: O2SAT 99
[2023-04-01] MEDS: GLUCERNA 1.2 1000ML LIQUID GT PRN (18:37)
[2023-04-01 19:50] VITALS: O2SAT 97
[2023-04-01 20:01] VITALS: TEMP 98.1
[2023-04-01] MEDS: MULTIVIT, IRON, MIN NO. 8, FA TABLET GT SCH (21:05)
[2023-04-01] MEDS: ASCORBIC ACID 500 MG TABLET GT SCH (21:05)
[2023-04-02] MEDS: OMEPRAZOLE 20 MG CAPSULE.DR GT SCH (05:04)
[2023-04-02 07:31] VITALS: TEMP 97.8
[2023-04-02] MEDS: HYDROGEN PEROXIDE 3% 118 ML BOTTLE TP SCH ×2 (08:26→19:10)
[2023-04-02] MEDS: ACIDOPHILUS/BULGARICUS CHEW TAB GT SCH ×2 (08:36→20:50)
[2023-04-02] MEDS: BACLOFEN 20 MG TABLET GT SCH ×4 (08:37→20:50)
[2023-04-02] MEDS: METOPROLOL TARTRATE 50 MG TABLET GT SCH ×2 (08:38→20:51)
[2023-04-02] MEDS: SIMETHICONE 80 MG TAB.CHEW GT SCH ×3 (08:39→17:48)
[2023-04-02] MEDS: SERTRALINE HCL 50 MG TABLET GT SCH (08:39)
[2023-04-02] MEDS: NEOMY/BACITRA/POLYMYXIN B OINT UD PACKET TP SCH ×2 (08:40→20:51)
[2023-04-02] MEDS: REMEDY ESSENTIAL ZINC PASTE 113 GM TOP SCH ×2 (08:40→20:51)
[2023-04-02] MEDS: MINERAL OIL/PETROLATUM,WHITE 57 GM TUBE TP SCH (08:40)
[2023-04-02] MEDS: COD LIVER OIL/ZINC OXIDE OINT 113 GM TUBE TOP SCH ×2 (08:40→20:51)
[2023-04-02] MEDS: KETOCONAZOLE 2% SHAMPOO 120 ML BOTTLE TP SCH (08:40)
[2023-04-02 20:00] VITALS: TEMP 97.9
[2023-04-02] MEDS: ASCORBIC ACID 500 MG TABLET GT SCH (20:51)
[2023-04-02] MEDS: TRIAMCINOLONE ACET 0.1% OINT 15 GM TUBE TP SCH (20:51)
[2023-04-02 22:50] VITALS: O2SAT 97
[2023-04-03] MEDS: OMEPRAZOLE 20 MG CAPSULE.DR GT SCH (05:11)
[2023-04-03 07:29] VITALS: TEMP 98.4
[2023-04-03] MEDS: HYDROGEN PEROXIDE 3% 118 ML BOTTLE TP SCH ×2 (09:00→19:14)
[2023-04-03] MEDS: BACLOFEN 20 MG TABLET GT SCH ×4 (09:55→21:25)
[2023-04-03] MEDS: ACIDOPHILUS/BULGARICUS CHEW TAB GT SCH ×2 (09:55→21:25)
[2023-04-03] MEDS: METOPROLOL TARTRATE 50 MG TABLET GT SCH ×2 (09:56→21:26)
[2023-04-03] MEDS: SIMETHICONE 80 MG TAB.CHEW GT SCH ×3 (09:56→16:54)
[2023-04-03] MEDS: REMEDY ESSENTIAL ZINC PASTE 113 GM TOP SCH ×2 (09:57→21:26)
[2023-04-03] MEDS: SERTRALINE HCL 50 MG TABLET GT SCH (09:57)
[2023-04-03] MEDS: NEOMY/BACITRA/POLYMYXIN B OINT UD PACKET TP SCH ×2 (09:57→21:26)
[2023-04-03] MEDS: MINERAL OIL/PETROLATUM,WHITE 57 GM TUBE TP SCH (09:57)
[2023-04-03] MEDS: COD LIVER OIL/ZINC OXIDE OINT 113 GM TUBE TOP SCH ×2 (09:57→21:26)
[2023-04-03 16:51] VITALS: O2SAT 99
[2023-04-03 20:15] VITALS: TEMP 97
[2023-04-03 20:40] VITALS: O2SAT 98
[2023-04-03] MEDS: MULTIVIT, IRON, MIN NO. 8, FA TABLET GT SCH (21:26)
[2023-04-03] MEDS: ASCORBIC ACID 500 MG TABLET GT SCH (21:26)
[2023-04-03] MEDS: GLUCERNA 1.2 1000ML LIQUID GT PRN (23:34)
[2023-04-04] MEDS: OMEPRAZOLE 20 MG CAPSULE.DR GT SCH (05:51)
[2023-04-04] MEDS: HYDROGEN PEROXIDE 3% 118 ML BOTTLE TP SCH ×2 (07:48→19:20)
[2023-04-04 08:00] VITALS: TEMP 98.2
[2023-04-04] MEDS: ACIDOPHILUS/BULGARICUS CHEW TAB GT SCH ×2 (09:26→21:31)
[2023-04-04] MEDS: BACLOFEN 20 MG TABLET GT SCH ×4 (09:26→21:31)
[2023-04-04] MEDS: COD LIVER OIL/ZINC OXIDE OINT 113 GM TUBE TOP SCH ×2 (09:27→21:32)
[2023-04-04] MEDS: SIMETHICONE 80 MG TAB.CHEW GT SCH ×3 (09:27→17:09)
[2023-04-04] MEDS: SERTRALINE HCL 50 MG TABLET GT SCH (09:27)
[2023-04-04] MEDS: REMEDY ESSENTIAL ZINC PASTE 113 GM TOP SCH ×2 (09:27→21:32)
[2023-04-04] MEDS: METOPROLOL TARTRATE 50 MG TABLET GT SCH ×2 (09:27→21:32)
[2023-04-04] MEDS: MINERAL OIL/PETROLATUM,WHITE 57 GM TUBE TP SCH (09:28)
[2023-04-04] MEDS: NEOMY/BACITRA/POLYMYXIN B OINT UD PACKET TP SCH ×2 (09:28→21:32)
[2023-04-04 10:30] VITALS: O2SAT 97; O2SAT 99
[2023-04-04 20:00] VITALS: TEMP 98.4
[2023-04-04 20:48] VITALS: O2SAT 98
[2023-04-04] MEDS: ASCORBIC ACID 500 MG TABLET GT SCH (21:32)
[2023-04-05] MEDS: OMEPRAZOLE 20 MG CAPSULE.DR GT SCH (05:36)
[2023-04-05] MEDS: HYDROGEN PEROXIDE 3% 118 ML BOTTLE TP SCH ×2 (07:53→21:03)
[2023-04-05] MEDS: KETOCONAZOLE 2% SHAMPOO 120 ML BOTTLE TP SCH (09:00)
[2023-04-05] MEDS: NEOMY/BACITRA/POLYMYXIN B OINT UD PACKET TP SCH ×2 (09:00→21:30)
[2023-04-05] MEDS: MINERAL OIL/PETROLATUM,WHITE 57 GM TUBE TP SCH (09:00)
[2023-04-05] MEDS: REMEDY ESSENTIAL ZINC PASTE 113 GM TOP SCH ×2 (09:00→21:30)
[2023-04-05 09:15] VITALS: O2SAT 99
[2023-04-05] MEDS: ACIDOPHILUS/BULGARICUS CHEW TAB GT SCH ×2 (09:36→21:29)
[2023-04-05] MEDS: BACLOFEN 20 MG TABLET GT SCH ×4 (09:37→21:29)
[2023-04-05] MEDS: METOPROLOL TARTRATE 50 MG TABLET GT SCH ×2 (09:39→21:30)
[2023-04-05] MEDS: SERTRALINE HCL 50 MG TABLET GT SCH (09:40)
[2023-04-05] MEDS: SIMETHICONE 80 MG TAB.CHEW GT SCH ×3 (09:40→17:00)
[2023-04-05] MEDS: COD LIVER OIL/ZINC OXIDE OINT 113 GM TUBE TOP SCH ×2 (09:40→21:30)
[2023-04-05 11:16] VITALS: TEMP 97.4
[2023-04-05 20:00] VITALS: TEMP 98.4
[2023-04-05 20:20] VITALS: O2SAT 98
[2023-04-05] MEDS: MULTIVIT, IRON, MIN NO. 8, FA TABLET GT SCH (21:30)
[2023-04-05] MEDS: TRIAMCINOLONE ACET 0.1% OINT 15 GM TUBE TP SCH (21:30)
[2023-04-05] MEDS: ASCORBIC ACID 500 MG TABLET GT SCH (21:30)
[2023-04-06] MEDS: GLUCERNA 1.2 1000ML LIQUID GT PRN (01:04)
[2023-04-06] MEDS: OMEPRAZOLE 20 MG CAPSULE.DR GT SCH (05:49)
[2023-04-06 08:00] VITALS: TEMP 97.2
[2023-04-06] MEDS: HYDROGEN PEROXIDE 3% 118 ML BOTTLE TP SCH ×2 (08:05→19:11)
[2023-04-06] MEDS: SERTRALINE HCL 50 MG TABLET GT SCH (10:00)
[2023-04-06] MEDS: BACLOFEN 20 MG TABLET GT SCH ×4 (10:00→21:00)
[2023-04-06] MEDS: MINERAL OIL/PETROLATUM,WHITE 57 GM TUBE TP SCH (10:00)
[2023-04-06] MEDS: REMEDY ESSENTIAL ZINC PASTE 113 GM TOP SCH ×2 (10:00→21:00)
[2023-04-06] MEDS: SIMETHICONE 80 MG TAB.CHEW GT SCH ×3 (10:00→16:54)
[2023-04-06] MEDS: COD LIVER OIL/ZINC OXIDE OINT 113 GM TUBE TOP SCH ×2 (10:00→21:00)
[2023-04-06] MEDS: METOPROLOL TARTRATE 50 MG TABLET GT SCH ×2 (10:00→21:55)
[2023-04-06] MEDS: ACIDOPHILUS/BULGARICUS CHEW TAB GT SCH ×2 (10:00→21:00)
[2023-04-06 10:15] VITALS: O2SAT 99
[2023-04-06 20:00] VITALS: TEMP 97.6
[2023-04-06 20:40] VITALS: O2SAT 98
[2023-04-06] MEDS: ASCORBIC ACID 500 MG TABLET GT SCH (21:00)
[2023-04-07] MEDS: GLUCERNA 1.2 1000ML LIQUID GT PRN (02:50)
[2023-04-07] MEDS: OMEPRAZOLE 20 MG CAPSULE.DR GT SCH (05:31)
[2023-04-07 08:00] VITALS: TEMP 97.6
[2023-04-07] MEDS: BACLOFEN 20 MG TABLET GT SCH ×4 (08:15→21:07)
[2023-04-07] MEDS: ACIDOPHILUS/BULGARICUS CHEW TAB GT SCH ×2 (08:15→21:05)
[2023-04-07] MEDS: METOPROLOL TARTRATE 50 MG TABLET GT SCH ×2 (08:17→21:07)
[2023-04-07] MEDS: COD LIVER OIL/ZINC OXIDE OINT 113 GM TUBE TOP SCH ×2 (08:18→21:08)
[2023-04-07] MEDS: SERTRALINE HCL 50 MG TABLET GT SCH (08:18)
[2023-04-07] MEDS: REMEDY ESSENTIAL ZINC PASTE 113 GM TOP SCH ×2 (08:18→21:08)
[2023-04-07] MEDS: MINERAL OIL/PETROLATUM,WHITE 57 GM TUBE TP SCH (08:18)
[2023-04-07] MEDS: SIMETHICONE 80 MG TAB.CHEW GT SCH ×3 (08:18→16:32)
[2023-04-07 08:30] VITALS: O2SAT 97
[2023-04-07] MEDS: HYDROGEN PEROXIDE 3% 118 ML BOTTLE TP SCH ×2 (09:00→19:04)
[2023-04-07 15:33] VITALS: O2SAT 97
[2023-04-07 20:00] VITALS: TEMP 97.2
[2023-04-07 20:15] VITALS: O2SAT 98
[2023-04-07] MEDS: MULTIVIT, IRON, MIN NO. 8, FA TABLET GT SCH (21:08)
[2023-04-07] MEDS: ASCORBIC ACID 500 MG TABLET GT SCH (21:08)
[2023-04-07 22:00] VITALS: TEMP 97.2
[2023-04-08] MEDS: OMEPRAZOLE 20 MG CAPSULE.DR GT SCH (05:07)
[2023-04-08 07:57] VITALS: TEMP 97.7
[2023-04-08] MEDS: HYDROGEN PEROXIDE 3% 118 ML BOTTLE TP SCH ×2 (08:00→19:08)
[2023-04-08] MEDS: SERTRALINE HCL 50 MG TABLET GT SCH (09:43)
[2023-04-08] MEDS: SIMETHICONE 80 MG TAB.CHEW GT SCH ×3 (09:43→17:23)
[2023-04-08] MEDS: MINERAL OIL/PETROLATUM,WHITE 57 GM TUBE TP SCH (09:43)
[2023-04-08] MEDS: COD LIVER OIL/ZINC OXIDE OINT 113 GM TUBE TOP SCH ×2 (09:43→21:28)
[2023-04-08] MEDS: ACIDOPHILUS/BULGARICUS CHEW TAB GT SCH ×2 (09:43→21:27)
[2023-04-08] MEDS: REMEDY ESSENTIAL ZINC PASTE 113 GM TOP SCH ×2 (09:43→21:28)
[2023-04-08] MEDS: METOPROLOL TARTRATE 50 MG TABLET GT SCH ×2 (09:43→21:29)
[2023-04-08] MEDS: BACLOFEN 20 MG TABLET GT SCH ×4 (09:43→21:27)
[2023-04-08 10:50] VITALS: O2SAT 99
[2023-04-08 19:47] VITALS: TEMP 98.7
[2023-04-08 21:09] VITALS: O2SAT 98
[2023-04-08] MEDS: ASCORBIC ACID 500 MG TABLET GT SCH (21:28)
[2023-04-09] MEDS: OMEPRAZOLE 20 MG CAPSULE.DR GT SCH (05:03)
[2023-04-09] MEDS: GLUCERNA 1.2 1000ML LIQUID GT PRN (05:04)
[2023-04-09] MEDS: HYDROGEN PEROXIDE 3% 118 ML BOTTLE TP SCH ×2 (07:12→19:15)
[2023-04-09 07:28] VITALS: TEMP 97.9
[2023-04-09] MEDS: ACIDOPHILUS/BULGARICUS CHEW TAB GT SCH ×2 (09:43→21:02)
[2023-04-09] MEDS: SERTRALINE HCL 50 MG TABLET GT SCH (09:44)
[2023-04-09] MEDS: COD LIVER OIL/ZINC OXIDE OINT 113 GM TUBE TOP SCH ×2 (09:44→21:03)
[2023-04-09] MEDS: BACLOFEN 20 MG TABLET GT SCH ×4 (09:44→21:02)
[2023-04-09] MEDS: REMEDY ESSENTIAL ZINC PASTE 113 GM TOP SCH ×2 (09:44→21:04)
[2023-04-09] MEDS: MINERAL OIL/PETROLATUM,WHITE 57 GM TUBE TP SCH (09:44)
[2023-04-09] MEDS: KETOCONAZOLE 2% SHAMPOO 120 ML BOTTLE TP SCH (09:45)
[2023-04-09] MEDS: METOPROLOL TARTRATE 50 MG TABLET GT SCH ×2 (09:51→21:03)
[2023-04-09] MEDS: SIMETHICONE 80 MG TAB.CHEW GT SCH ×3 (09:51→17:52)
[2023-04-09 12:11] VITALS: O2SAT 99
[2023-04-09] MEDS: ACETAMINOPHEN 650 MG/20 ML UDC- SA PATIENTS-PAIN ONLY GT PRN (14:57)
[2023-04-09 20:08] VITALS: TEMP 98.2
[2023-04-09] MEDS: MULTIVIT, IRON, MIN NO. 8, FA TABLET GT SCH (21:03)
[2023-04-09] MEDS: ASCORBIC ACID 500 MG TABLET GT SCH (21:03)
[2023-04-09] MEDS: TRIAMCINOLONE ACET 0.1% OINT 15 GM TUBE TP SCH (21:04)
[2023-04-09 21:28] VITALS: O2SAT 98
[2023-04-10] MEDS: GLUCERNA 1.2 1000ML LIQUID GT PRN (03:14)
[2023-04-10] MEDS: OMEPRAZOLE 20 MG CAPSULE.DR GT SCH (05:41)
[2023-04-10 07:30] VITALS: TEMP 97.5
[2023-04-10 08:30] VITALS: O2SAT 97
[2023-04-10] MEDS: HYDROGEN PEROXIDE 3% 118 ML BOTTLE TP SCH ×2 (09:00→19:15)
[2023-04-10] MEDS: BACLOFEN 20 MG TABLET GT SCH ×4 (09:42→21:26)
[2023-04-10] MEDS: ACIDOPHILUS/BULGARICUS CHEW TAB GT SCH ×2 (09:42→21:26)
[2023-04-10] MEDS: COD LIVER OIL/ZINC OXIDE OINT 113 GM TUBE TOP SCH ×2 (09:43→21:27)
[2023-04-10] MEDS: MINERAL OIL/PETROLATUM,WHITE 57 GM TUBE TP SCH (09:43)
[2023-04-10] MEDS: SERTRALINE HCL 50 MG TABLET GT SCH (09:43)
[2023-04-10] MEDS: REMEDY ESSENTIAL ZINC PASTE 113 GM TOP SCH ×2 (09:43→21:27)
[2023-04-10] MEDS: SIMETHICONE 80 MG TAB.CHEW GT SCH ×3 (09:43→17:00)
[2023-04-10] MEDS: METOPROLOL TARTRATE 50 MG TABLET GT SCH ×2 (09:50→21:27)
[2023-04-10 16:00] VITALS: O2SAT 97
[2023-04-10 20:05] VITALS: O2SAT 98
[2023-04-10 20:27] VITALS: TEMP 97.7
[2023-04-10] MEDS: ASCORBIC ACID 500 MG TABLET GT SCH (21:27)
[2023-04-11] MEDS: GLUCERNA 1.2 1000ML LIQUID GT PRN (06:03)
[2023-04-11] MEDS: OMEPRAZOLE 20 MG CAPSULE.DR GT SCH (06:03)
[2023-04-11 07:26] VITALS: TEMP 97.5
[2023-04-11] MEDS: BACLOFEN 20 MG TABLET GT SCH ×4 (08:24→21:48)
[2023-04-11] MEDS: ACIDOPHILUS/BULGARICUS CHEW TAB GT SCH ×2 (08:24→21:54)
[2023-04-11] MEDS: REMEDY ESSENTIAL ZINC PASTE 113 GM TOP SCH ×2 (08:25→21:50)
[2023-04-11] MEDS: SIMETHICONE 80 MG TAB.CHEW GT SCH ×3 (08:25→16:58)
[2023-04-11] MEDS: COD LIVER OIL/ZINC OXIDE OINT 113 GM TUBE TOP SCH ×2 (08:25→21:50)
[2023-04-11] MEDS: MINERAL OIL/PETROLATUM,WHITE 57 GM TUBE TP SCH (08:25)
[2023-04-11] MEDS: SERTRALINE HCL 50 MG TABLET GT SCH (08:25)
[2023-04-11] MEDS: METOPROLOL TARTRATE 50 MG TABLET GT SCH ×2 (08:25→21:47)
[2023-04-11] MEDS: HYDROGEN PEROXIDE 3% 118 ML BOTTLE TP SCH ×2 (09:00→19:17)
[2023-04-11 14:59] VITALS: O2SAT 99
[2023-04-11 20:00] VITALS: TEMP 98.4
[2023-04-11] MEDS: ASCORBIC ACID 500 MG TABLET GT SCH (21:48)
[2023-04-11] MEDS: MULTIVIT, IRON, MIN NO. 8, FA TABLET GT SCH (21:48)
[2023-04-11 22:58] VITALS: O2SAT 98
[2023-04-12] MEDS: OMEPRAZOLE 20 MG CAPSULE.DR GT SCH (05:23)
[2023-04-12] MEDS: GLUCERNA 1.2 1000ML LIQUID GT PRN (05:43)
[2023-04-12 07:22] VITALS: O2SAT 97
[2023-04-12 07:29] VITALS: TEMP 97.5
[2023-04-12] MEDS: ACIDOPHILUS/BULGARICUS CHEW TAB GT SCH ×2 (08:24→21:00)
[2023-04-12] MEDS: BACLOFEN 20 MG TABLET GT SCH ×4 (08:25→21:00)
[2023-04-12] MEDS: SERTRALINE HCL 50 MG TABLET GT SCH (08:26)
[2023-04-12] MEDS: COD LIVER OIL/ZINC OXIDE OINT 113 GM TUBE TOP SCH ×2 (08:26→21:01)
[2023-04-12] MEDS: SIMETHICONE 80 MG TAB.CHEW GT SCH ×3 (08:26→16:44)
[2023-04-12] MEDS: MINERAL OIL/PETROLATUM,WHITE 57 GM TUBE TP SCH (08:26)
[2023-04-12] MEDS: KETOCONAZOLE 2% SHAMPOO 120 ML BOTTLE TP SCH (08:26)
[2023-04-12] MEDS: METOPROLOL TARTRATE 50 MG TABLET GT SCH ×2 (08:26→21:01)
[2023-04-12] MEDS: REMEDY ESSENTIAL ZINC PASTE 113 GM TOP SCH ×2 (08:26→21:01)
[2023-04-12] MEDS: HYDROGEN PEROXIDE 3% 118 ML BOTTLE TP SCH ×2 (09:00→19:08)
[2023-04-12 13:10] VITALS: O2SAT 99
[2023-04-12 19:44] VITALS: TEMP 97.8
[2023-04-12 20:35] VITALS: O2SAT 98
[2023-04-12] MEDS: TRIAMCINOLONE ACET 0.1% OINT 15 GM TUBE TP SCH (21:01)
[2023-04-12] MEDS: ASCORBIC ACID 500 MG TABLET GT SCH (21:01)
[2023-04-13] MEDS: GLUCERNA 1.2 1000ML LIQUID GT PRN (02:50)
[2023-04-13] MEDS: OMEPRAZOLE 20 MG CAPSULE.DR GT SCH (05:32)
[2023-04-13 07:31] VITALS: TEMP 97.6
[2023-04-13] MEDS: ACIDOPHILUS/BULGARICUS CHEW TAB GT SCH ×2 (08:13→20:44)
[2023-04-13] MEDS: SERTRALINE HCL 50 MG TABLET GT SCH (08:13)
[2023-04-13] MEDS: SIMETHICONE 80 MG TAB.CHEW GT SCH ×3 (08:13→17:13)
[2023-04-13] MEDS: BACLOFEN 20 MG TABLET GT SCH ×4 (08:13→20:44)
[2023-04-13] MEDS: COD LIVER OIL/ZINC OXIDE OINT 113 GM TUBE TOP SCH ×2 (08:13→20:44)
[2023-04-13] MEDS: METOPROLOL TARTRATE 50 MG TABLET GT SCH ×2 (08:13→20:44)
[2023-04-13] MEDS: REMEDY ESSENTIAL ZINC PASTE 113 GM TOP SCH ×2 (08:14→20:45)
[2023-04-13] MEDS: MINERAL OIL/PETROLATUM,WHITE 57 GM TUBE TP SCH (08:14)
[2023-04-13] MEDS: HYDROGEN PEROXIDE 3% 118 ML BOTTLE TP SCH ×2 (09:00→19:23)
[2023-04-13 10:40] VITALS: O2SAT 98
[2023-04-13 19:57] VITALS: TEMP 97.7
[2023-04-13] MEDS: ASCORBIC ACID 500 MG TABLET GT SCH (20:44)
[2023-04-13] MEDS: MULTIVIT, IRON, MIN NO. 8, FA TABLET GT SCH (20:44)
[2023-04-13] MEDS: NEOMY/BACITRA/POLYMYXIN B OINT UD PACKET TP SCH (20:45)
[2023-04-13 20:58] VITALS: O2SAT 98
[2023-04-14] MEDS: GLUCERNA 1.2 1000ML LIQUID GT PRN (03:31)
[2023-04-14] MEDS: OMEPRAZOLE 20 MG CAPSULE.DR GT SCH (05:09)
[2023-04-14 08:00] VITALS: TEMP 97.2
[2023-04-14] MEDS: BACLOFEN 20 MG TABLET GT SCH ×4 (08:55→20:51)
[2023-04-14] MEDS: ACIDOPHILUS/BULGARICUS CHEW TAB GT SCH ×2 (08:55→20:51)
[2023-04-14] MEDS: REMEDY ESSENTIAL ZINC PASTE 113 GM TOP SCH ×2 (08:57→20:52)
[2023-04-14] MEDS: MINERAL OIL/PETROLATUM,WHITE 57 GM TUBE TP SCH (08:57)
[2023-04-14] MEDS: SIMETHICONE 80 MG TAB.CHEW GT SCH ×3 (08:57→17:42)
[2023-04-14] MEDS: METOPROLOL TARTRATE 50 MG TABLET GT SCH ×2 (08:57→20:52)
[2023-04-14] MEDS: SERTRALINE HCL 50 MG TABLET GT SCH (08:57)
[2023-04-14] MEDS: COD LIVER OIL/ZINC OXIDE OINT 113 GM TUBE TOP SCH ×2 (08:57→20:52)
[2023-04-14] MEDS: NEOMY/BACITRA/POLYMYXIN B OINT UD PACKET TP SCH ×2 (08:58→20:52)
[2023-04-14 09:00] VITALS: O2SAT 98
[2023-04-14] MEDS: HYDROGEN PEROXIDE 3% 118 ML BOTTLE TP SCH ×2 (09:35→21:00)
[2023-04-14 20:00] VITALS: TEMP 97
[2023-04-14] MEDS: ASCORBIC ACID 500 MG TABLET GT SCH (20:52)
[2023-04-15 00:17] VITALS: O2SAT 98
[2023-04-15] MEDS: GLUCERNA 1.2 1000ML LIQUID GT PRN (03:35)
[2023-04-15] MEDS: OMEPRAZOLE 20 MG CAPSULE.DR GT SCH (05:24)
[2023-04-15 07:31] VITALS: TEMP 97.8
[2023-04-15] MEDS: ACIDOPHILUS/BULGARICUS CHEW TAB GT SCH ×2 (08:25→21:58)
[2023-04-15] MEDS: BACLOFEN 20 MG TABLET GT SCH ×4 (08:29→21:56)
[2023-04-15] MEDS: METOPROLOL TARTRATE 50 MG TABLET GT SCH ×2 (08:30→21:55)
[2023-04-15] MEDS: SIMETHICONE 80 MG TAB.CHEW GT SCH ×3 (08:31→17:28)
[2023-04-15] MEDS: NEOMY/BACITRA/POLYMYXIN B OINT UD PACKET TP SCH ×2 (08:32→21:53)
[2023-04-15] MEDS: MINERAL OIL/PETROLATUM,WHITE 57 GM TUBE TP SCH (08:32)
[2023-04-15] MEDS: REMEDY ESSENTIAL ZINC PASTE 113 GM TOP SCH ×2 (08:32→21:53)
[2023-04-15] MEDS: COD LIVER OIL/ZINC OXIDE OINT 113 GM TUBE TOP SCH ×2 (08:32→21:53)
[2023-04-15] MEDS: SERTRALINE HCL 50 MG TABLET GT SCH (08:32)
[2023-04-15] MEDS: HYDROGEN PEROXIDE 3% 118 ML BOTTLE TP SCH ×2 (09:00→19:23)
[2023-04-15 12:36] VITALS: O2SAT 99
[2023-04-15 19:59] VITALS: TEMP 97
[2023-04-15 21:35] VITALS: O2SAT 98
[2023-04-15] MEDS: MULTIVIT, IRON, MIN NO. 8, FA TABLET GT SCH (21:51)
[2023-04-15] MEDS: ASCORBIC ACID 500 MG TABLET GT SCH (21:52)
[2023-04-16] MEDS: GLUCERNA 1.2 1000ML LIQUID GT PRN ×2 (01:14→05:32)
[2023-04-16] MEDS: OMEPRAZOLE 20 MG CAPSULE.DR GT SCH (05:10)
[2023-04-16 07:26] VITALS: TEMP 98.5
[2023-04-16] MEDS: HYDROGEN PEROXIDE 3% 118 ML BOTTLE TP SCH ×2 (09:33→21:05)
[2023-04-16] MEDS: BACLOFEN 20 MG TABLET GT SCH ×4 (09:57→21:00)
[2023-04-16] MEDS: ACIDOPHILUS/BULGARICUS CHEW TAB GT SCH ×2 (09:57→21:00)
[2023-04-16] MEDS: SERTRALINE HCL 50 MG TABLET GT SCH (09:57)
[2023-04-16] MEDS: COD LIVER OIL/ZINC OXIDE OINT 113 GM TUBE TOP SCH ×2 (09:57→21:00)
[2023-04-16] MEDS: SIMETHICONE 80 MG TAB.CHEW GT SCH ×3 (09:57→16:31)
[2023-04-16] MEDS: METOPROLOL TARTRATE 50 MG TABLET GT SCH ×2 (09:57→21:00)
[2023-04-16] MEDS: KETOCONAZOLE 2% SHAMPOO 120 ML BOTTLE TP SCH (09:58)
[2023-04-16] MEDS: NEOMY/BACITRA/POLYMYXIN B OINT UD PACKET TP SCH ×2 (09:58→21:00)
[2023-04-16] MEDS: MINERAL OIL/PETROLATUM,WHITE 57 GM TUBE TP SCH (09:58)
[2023-04-16] MEDS: REMEDY ESSENTIAL ZINC PASTE 113 GM TOP SCH ×2 (09:58→21:00)
[2023-04-16 11:57] VITALS: TEMP 97
[2023-04-16 12:28] VITALS: O2SAT 99
[2023-04-16 19:47] VITALS: TEMP 97.6
[2023-04-16] MEDS: ASCORBIC ACID 500 MG TABLET GT SCH (21:00)
[2023-04-16] MEDS: TRIAMCINOLONE ACET 0.1% OINT 15 GM TUBE TP SCH (21:00)
[2023-04-17 00:20] VITALS: O2SAT 99
[2023-04-17] MEDS: OMEPRAZOLE 20 MG CAPSULE.DR GT SCH (05:17)
[2023-04-17] MEDS: GLUCERNA 1.2 1000ML LIQUID GT PRN (05:18)
[2023-04-17 07:26] VITALS: TEMP 97.6
[2023-04-17] MEDS: ACIDOPHILUS/BULGARICUS CHEW TAB GT SCH ×2 (08:22→21:02)
[2023-04-17] MEDS: BACLOFEN 20 MG TABLET GT SCH ×4 (08:22→21:02)
[2023-04-17] MEDS: SERTRALINE HCL 50 MG TABLET GT SCH (08:26)
[2023-04-17] MEDS: METOPROLOL TARTRATE 50 MG TABLET GT SCH ×2 (08:27→21:02)
[2023-04-17] MEDS: SIMETHICONE 80 MG TAB.CHEW GT SCH ×3 (08:28→17:40)
[2023-04-17] MEDS: MINERAL OIL/PETROLATUM,WHITE 57 GM TUBE TP SCH (08:29)
[2023-04-17] MEDS: NEOMY/BACITRA/POLYMYXIN B OINT UD PACKET TP SCH ×2 (08:29→21:02)
[2023-04-17] MEDS: COD LIVER OIL/ZINC OXIDE OINT 113 GM TUBE TOP SCH ×2 (08:29→21:02)
[2023-04-17] MEDS: REMEDY ESSENTIAL ZINC PASTE 113 GM TOP SCH ×2 (08:29→21:02)
[2023-04-17] MEDS: HYDROGEN PEROXIDE 3% 118 ML BOTTLE TP SCH ×2 (09:36→19:04)
[2023-04-17 10:50] VITALS: O2SAT 98
[2023-04-17 19:45] VITALS: TEMP 97.4
[2023-04-17 20:35] VITALS: O2SAT 98
[2023-04-17] MEDS: ASCORBIC ACID 500 MG TABLET GT SCH (21:02)
[2023-04-17] MEDS: MULTIVIT, IRON, MIN NO. 8, FA TABLET GT SCH (21:02)
[2023-04-18] MEDS: OMEPRAZOLE 20 MG CAPSULE.DR GT SCH (05:10)
[2023-04-18] MEDS: HYDROGEN PEROXIDE 3% 118 ML BOTTLE TP SCH ×2 (07:16→19:10)
[2023-04-18 08:00] VITALS: TEMP 97.8
[2023-04-18] MEDS: BACLOFEN 20 MG TABLET GT SCH ×4 (08:18→21:48)
[2023-04-18] MEDS: ACIDOPHILUS/BULGARICUS CHEW TAB GT SCH ×2 (08:18→21:48)
[2023-04-18] MEDS: SERTRALINE HCL 50 MG TABLET GT SCH (08:19)
[2023-04-18] MEDS: METOPROLOL TARTRATE 50 MG TABLET GT SCH ×2 (08:19→21:49)
[2023-04-18] MEDS: SIMETHICONE 80 MG TAB.CHEW GT SCH ×3 (08:19→17:00)
[2023-04-18] MEDS: COD LIVER OIL/ZINC OXIDE OINT 113 GM TUBE TOP SCH ×2 (08:20→21:49)
[2023-04-18] MEDS: NEOMY/BACITRA/POLYMYXIN B OINT UD PACKET TP SCH ×2 (08:20→21:50)
[2023-04-18] MEDS: MINERAL OIL/PETROLATUM,WHITE 57 GM TUBE TP SCH (08:20)
[2023-04-18] MEDS: REMEDY ESSENTIAL ZINC PASTE 113 GM TOP SCH ×2 (08:20→21:49)
[2023-04-18 09:41] VITALS: O2SAT 98
[2023-04-18 19:51] VITALS: TEMP 97.2
[2023-04-18 21:04] VITALS: O2SAT 98
[2023-04-18] MEDS: ASCORBIC ACID 500 MG TABLET GT SCH (21:49)
[2023-04-19] MEDS: GLUCERNA 1.2 1000ML LIQUID GT PRN (05:04)
[2023-04-19] MEDS: OMEPRAZOLE 20 MG CAPSULE.DR GT SCH (06:06)
[2023-04-19 08:00] VITALS: TEMP 97.5
[2023-04-19] MEDS: ACIDOPHILUS/BULGARICUS CHEW TAB GT SCH ×2 (09:00→20:55)
[2023-04-19] MEDS: NEOMY/BACITRA/POLYMYXIN B OINT UD PACKET TP SCH ×2 (09:00→20:57)
[2023-04-19] MEDS: SERTRALINE HCL 50 MG TABLET GT SCH (09:00)
[2023-04-19] MEDS: SIMETHICONE 80 MG TAB.CHEW GT SCH ×3 (09:00→16:57)
[2023-04-19] MEDS: REMEDY ESSENTIAL ZINC PASTE 113 GM TOP SCH ×2 (09:00→20:57)
[2023-04-19] MEDS: HYDROGEN PEROXIDE 3% 118 ML BOTTLE TP SCH ×2 (09:00→21:00)
[2023-04-19] MEDS: BACLOFEN 20 MG TABLET GT SCH ×4 (09:00→20:55)
[2023-04-19] MEDS: COD LIVER OIL/ZINC OXIDE OINT 113 GM TUBE TOP SCH ×2 (09:00→20:57)
[2023-04-19] MEDS: MINERAL OIL/PETROLATUM,WHITE 57 GM TUBE TP SCH (09:00)
[2023-04-19] MEDS: METOPROLOL TARTRATE 50 MG TABLET GT SCH ×2 (09:00→20:56)
[2023-04-19] MEDS: KETOCONAZOLE 2% SHAMPOO 120 ML BOTTLE TP SCH (09:00)
[2023-04-19 09:15] VITALS: O2SAT 98
[2023-04-19 19:20] VITALS: O2SAT 98
[2023-04-19 19:44] VITALS: TEMP 97.1
[2023-04-19] MEDS: MULTIVIT, IRON, MIN NO. 8, FA TABLET GT SCH (20:56)
[2023-04-19] MEDS: ASCORBIC ACID 500 MG TABLET GT SCH (20:57)
[2023-04-19] MEDS: TRIAMCINOLONE ACET 0.1% OINT 15 GM TUBE TP SCH (20:57)
[2023-04-19] MEDS: ACETAMINOPHEN 650 MG/20 ML UDC- SA PATIENTS-PAIN ONLY GT PRN (21:00)
[2023-04-20] MEDS: GLUCERNA 1.2 1000ML LIQUID GT PRN (03:30)
[2023-04-20] MEDS: OMEPRAZOLE 20 MG CAPSULE.DR GT SCH (05:38)
[2023-04-20] MEDS: HYDROGEN PEROXIDE 3% 118 ML BOTTLE TP SCH ×2 (07:37→19:08)
[2023-04-20 08:00] VITALS: TEMP 97.3
[2023-04-20] MEDS: BACLOFEN 20 MG TABLET GT SCH ×4 (09:31→20:31)
[2023-04-20] MEDS: METOPROLOL TARTRATE 50 MG TABLET GT SCH ×2 (09:31→20:32)
[2023-04-20] MEDS: SIMETHICONE 80 MG TAB.CHEW GT SCH ×3 (09:31→16:48)
[2023-04-20] MEDS: ACIDOPHILUS/BULGARICUS CHEW TAB GT SCH ×2 (09:31→20:31)
[2023-04-20] MEDS: SERTRALINE HCL 50 MG TABLET GT SCH (09:31)
[2023-04-20] MEDS: NEOMY/BACITRA/POLYMYXIN B OINT UD PACKET TP SCH ×2 (09:32→13:00)
[2023-04-20] MEDS: REMEDY ESSENTIAL ZINC PASTE 113 GM TOP SCH ×2 (09:32→20:33)
[2023-04-20] MEDS: MINERAL OIL/PETROLATUM,WHITE 57 GM TUBE TP SCH (09:32)
[2023-04-20] MEDS: COD LIVER OIL/ZINC OXIDE OINT 113 GM TUBE TOP SCH ×2 (09:32→20:33)
[2023-04-20 10:17] VITALS: O2SAT 98
[2023-04-20 20:00] VITALS: TEMP 97.8
[2023-04-20] MEDS: ASCORBIC ACID 500 MG TABLET GT SCH (20:33)
[2023-04-20 20:40] VITALS: O2SAT 98
[2023-04-21] MEDS: OMEPRAZOLE 20 MG CAPSULE.DR GT SCH (05:38)
[2023-04-21 08:13] VITALS: TEMP 97.7
[2023-04-21] MEDS: HYDROGEN PEROXIDE 3% 118 ML BOTTLE TP SCH ×2 (08:31→19:11)
[2023-04-21] MEDS: METOPROLOL TARTRATE 50 MG TABLET GT SCH ×2 (09:03→20:28)
[2023-04-21] MEDS: BACLOFEN 20 MG TABLET GT SCH ×4 (09:03→20:28)
[2023-04-21] MEDS: COD LIVER OIL/ZINC OXIDE OINT 113 GM TUBE TOP SCH ×2 (09:03→20:28)
[2023-04-21] MEDS: ACIDOPHILUS/BULGARICUS CHEW TAB GT SCH ×2 (09:03→20:28)
[2023-04-21] MEDS: SIMETHICONE 80 MG TAB.CHEW GT SCH ×3 (09:03→17:37)
[2023-04-21] MEDS: SERTRALINE HCL 50 MG TABLET GT SCH (09:03)
[2023-04-21] MEDS: MINERAL OIL/PETROLATUM,WHITE 57 GM TUBE TP SCH (09:04)
[2023-04-21] MEDS: REMEDY ESSENTIAL ZINC PASTE 113 GM TOP SCH ×2 (09:04→20:29)
[2023-04-21] MEDS: NEOMY/BACITRA/POLYMYXIN B OINT UD PACKET TP SCH (09:04)
[2023-04-21 10:30] VITALS: O2SAT 98
[2023-04-21 20:00] VITALS: TEMP 97.7
[2023-04-21] MEDS: MULTIVIT, IRON, MIN NO. 8, FA TABLET GT SCH (20:28)
[2023-04-21] MEDS: ASCORBIC ACID 500 MG TABLET GT SCH (20:28)
[2023-04-21 20:35] VITALS: O2SAT 98
[2023-04-22] MEDS: OMEPRAZOLE 20 MG CAPSULE.DR GT SCH (05:49)
[2023-04-22] MEDS: GLUCERNA 1.2 1000ML LIQUID GT PRN (06:00)
[2023-04-22 07:53] VITALS: TEMP 97.9
[2023-04-22] MEDS: HYDROGEN PEROXIDE 3% 118 ML BOTTLE TP SCH ×2 (08:33→19:04)
[2023-04-22] MEDS: SERTRALINE HCL 50 MG TABLET GT SCH (09:58)
[2023-04-22] MEDS: SIMETHICONE 80 MG TAB.CHEW GT SCH ×3 (09:58→17:00)
[2023-04-22] MEDS: MINERAL OIL/PETROLATUM,WHITE 57 GM TUBE TP SCH (09:58)
[2023-04-22] MEDS: METOPROLOL TARTRATE 50 MG TABLET GT SCH ×2 (09:58→20:51)
[2023-04-22] MEDS: COD LIVER OIL/ZINC OXIDE OINT 113 GM TUBE TOP SCH ×2 (09:58→20:51)
[2023-04-22] MEDS: NEOMY/BACITRA/POLYMYXIN B OINT UD PACKET TP SCH (09:58)
[2023-04-22] MEDS: ACIDOPHILUS/BULGARICUS CHEW TAB GT SCH ×2 (09:58→20:50)
[2023-04-22] MEDS: REMEDY ESSENTIAL ZINC PASTE 113 GM TOP SCH ×2 (09:58→20:51)
[2023-04-22] MEDS: BACLOFEN 20 MG TABLET GT SCH ×4 (09:58→20:50)
[2023-04-22 10:45] VITALS: O2SAT 99
[2023-04-22 19:58] VITALS: TEMP 98.5
[2023-04-22 20:35] VITALS: O2SAT 98
[2023-04-22] MEDS: ASCORBIC ACID 500 MG TABLET GT SCH (20:51)
[2023-04-22] MEDS: ACETAMINOPHEN 650 MG/20 ML UDC- SA PATIENTS-PAIN ONLY GT PRN (22:14)
[2023-04-23] MEDS: GLUCERNA 1.2 1000ML LIQUID GT PRN (04:08)
[2023-04-23] MEDS: OMEPRAZOLE 20 MG CAPSULE.DR GT SCH (05:13)
[2023-04-23] MEDS: HYDROGEN PEROXIDE 3% 118 ML BOTTLE TP SCH ×2 (07:18→21:38)
[2023-04-23 08:00] VITALS: TEMP 97.5; TEMP 97.6
[2023-04-23] MEDS: ACIDOPHILUS/BULGARICUS CHEW TAB GT SCH ×2 (09:43→21:09)
[2023-04-23] MEDS: BACLOFEN 20 MG TABLET GT SCH ×4 (09:43→21:09)
[2023-04-23] MEDS: MINERAL OIL/PETROLATUM,WHITE 57 GM TUBE TP SCH (09:45)
[2023-04-23] MEDS: SIMETHICONE 80 MG TAB.CHEW GT SCH ×3 (09:45→17:41)
[2023-04-23] MEDS: KETOCONAZOLE 2% SHAMPOO 120 ML BOTTLE TP SCH (09:45)
[2023-04-23] MEDS: REMEDY ESSENTIAL ZINC PASTE 113 GM TOP SCH ×2 (09:45→21:10)
[2023-04-23] MEDS: COD LIVER OIL/ZINC OXIDE OINT 113 GM TUBE TOP SCH ×2 (09:45→21:10)
[2023-04-23] MEDS: SERTRALINE HCL 50 MG TABLET GT SCH (09:45)
[2023-04-23] MEDS: METOPROLOL TARTRATE 50 MG TABLET GT SCH ×2 (09:45→21:10)
[2023-04-23] MEDS: NEOMY/BACITRA/POLYMYXIN B OINT UD PACKET TP SCH (09:46)
[2023-04-23 12:49] VITALS: O2SAT 99
[2023-04-23 20:00] VITALS: TEMP 97.8
[2023-04-23] MEDS: MULTIVIT, IRON, MIN NO. 8, FA TABLET GT SCH (21:10)
[2023-04-23] MEDS: ASCORBIC ACID 500 MG TABLET GT SCH (21:10)
[2023-04-23] MEDS: TRIAMCINOLONE ACET 0.1% OINT 15 GM TUBE TP SCH (21:10)
[2023-04-24] MEDS: GLUCERNA 1.2 1000ML LIQUID GT PRN (04:28)
[2023-04-24] MEDS: OMEPRAZOLE 20 MG CAPSULE.DR GT SCH (05:51)
[2023-04-24] MEDS: HYDROGEN PEROXIDE 3% 118 ML BOTTLE TP SCH ×2 (07:22→21:00)
[2023-04-24 07:33] VITALS: TEMP 97.5
[2023-04-24] MEDS: NEOMY/BACITRA/POLYMYXIN B OINT UD PACKET TP SCH (09:00)
[2023-04-24] MEDS: BACLOFEN 20 MG TABLET GT SCH ×4 (09:55→21:18)
[2023-04-24] MEDS: ACIDOPHILUS/BULGARICUS CHEW TAB GT SCH ×2 (09:55→21:18)
[2023-04-24] MEDS: METOPROLOL TARTRATE 50 MG TABLET GT SCH ×2 (09:56→21:19)
[2023-04-24] MEDS: COD LIVER OIL/ZINC OXIDE OINT 113 GM TUBE TOP SCH ×2 (09:56→21:19)
[2023-04-24] MEDS: SERTRALINE HCL 50 MG TABLET GT SCH (09:56)
[2023-04-24] MEDS: SIMETHICONE 80 MG TAB.CHEW GT SCH ×3 (09:56→17:00)
[2023-04-24] MEDS: REMEDY ESSENTIAL ZINC PASTE 113 GM TOP SCH ×2 (09:56→21:19)
[2023-04-24] MEDS: MINERAL OIL/PETROLATUM,WHITE 57 GM TUBE TP SCH (09:57)
[2023-04-24 13:24] VITALS: O2SAT 99
[2023-04-24 20:00] VITALS: TEMP 97.7
[2023-04-24] MEDS: ASCORBIC ACID 500 MG TABLET GT SCH (21:19)
[2023-04-25] MEDS: OMEPRAZOLE 20 MG CAPSULE.DR GT SCH (05:47)
[2023-04-25 07:29] VITALS: TEMP 97.8
[2023-04-25] MEDS: HYDROGEN PEROXIDE 3% 118 ML BOTTLE TP SCH ×2 (09:00→19:11)
[2023-04-25] MEDS: ACIDOPHILUS/BULGARICUS CHEW TAB GT SCH ×2 (09:03→21:37)
[2023-04-25] MEDS: BACLOFEN 20 MG TABLET GT SCH ×4 (09:05→21:37)
[2023-04-25] MEDS: METOPROLOL TARTRATE 50 MG TABLET GT SCH ×2 (09:06→21:37)
[2023-04-25] MEDS: SIMETHICONE 80 MG TAB.CHEW GT SCH ×3 (09:07→16:35)
[2023-04-25] MEDS: SERTRALINE HCL 50 MG TABLET GT SCH (09:07)
[2023-04-25] MEDS: REMEDY ESSENTIAL ZINC PASTE 113 GM TOP SCH ×2 (09:08→21:38)
[2023-04-25] MEDS: COD LIVER OIL/ZINC OXIDE OINT 113 GM TUBE TOP SCH ×2 (09:08→21:38)
[2023-04-25] MEDS: NEOMY/BACITRA/POLYMYXIN B OINT UD PACKET TP SCH (09:08)
[2023-04-25] MEDS: MINERAL OIL/PETROLATUM,WHITE 57 GM TUBE TP SCH (09:08)
[2023-04-25] MEDS: GLUCERNA 1.2 1000ML LIQUID GT PRN (09:16)
[2023-04-25 14:14] VITALS: O2SAT 99
[2023-04-25 20:04] VITALS: TEMP 98
[2023-04-25 20:35] VITALS: O2SAT 98
[2023-04-25] MEDS: ASCORBIC ACID 500 MG TABLET GT SCH (21:38)
[2023-04-25] MEDS: MULTIVIT, IRON, MIN NO. 8, FA TABLET GT SCH (21:38)
[2023-04-26] MEDS: OMEPRAZOLE 20 MG CAPSULE.DR GT SCH (05:55)
[2023-04-26 07:32] VITALS: TEMP 97.8
[2023-04-26 08:16] VITALS: O2SAT 97
[2023-04-26] MEDS: HYDROGEN PEROXIDE 3% 118 ML BOTTLE TP SCH ×2 (08:16→19:12)
[2023-04-26] MEDS: SIMETHICONE 80 MG TAB.CHEW GT SCH ×3 (09:58→16:28)
[2023-04-26] MEDS: ACIDOPHILUS/BULGARICUS CHEW TAB GT SCH ×2 (09:58→21:08)
[2023-04-26] MEDS: SERTRALINE HCL 50 MG TABLET GT SCH (09:58)
[2023-04-26] MEDS: METOPROLOL TARTRATE 50 MG TABLET GT SCH ×2 (09:58→21:08)
[2023-04-26] MEDS: BACLOFEN 20 MG TABLET GT SCH ×4 (09:58→21:08)
[2023-04-26] MEDS: COD LIVER OIL/ZINC OXIDE OINT 113 GM TUBE TOP SCH ×2 (09:58→21:09)
[2023-04-26] MEDS: NEOMY/BACITRA/POLYMYXIN B OINT UD PACKET TP SCH (09:59)
[2023-04-26] MEDS: REMEDY ESSENTIAL ZINC PASTE 113 GM TOP SCH ×2 (09:59→21:09)
[2023-04-26] MEDS: KETOCONAZOLE 2% SHAMPOO 120 ML BOTTLE TP SCH (09:59)
[2023-04-26] MEDS: MINERAL OIL/PETROLATUM,WHITE 57 GM TUBE TP SCH (09:59)
[2023-04-26] MEDS: GLUCERNA 1.2 1000ML LIQUID GT PRN (16:37)
[2023-04-26 16:56] VITALS: O2SAT 97
[2023-04-26 21:00] VITALS: O2SAT 98
[2023-04-26 21:04] VITALS: TEMP 97.6
[2023-04-26] MEDS: ASCORBIC ACID 500 MG TABLET GT SCH (21:08)
[2023-04-26] MEDS: TRIAMCINOLONE ACET 0.1% OINT 15 GM TUBE TP SCH (21:09)
[2023-04-27] MEDS: OMEPRAZOLE 20 MG CAPSULE.DR GT SCH (06:09)
[2023-04-27 08:00] VITALS: TEMP 97.8
[2023-04-27] MEDS: ACIDOPHILUS/BULGARICUS CHEW TAB GT SCH ×2 (08:33→21:31)
[2023-04-27] MEDS: BACLOFEN 20 MG TABLET GT SCH ×4 (08:34→21:33)
[2023-04-27] MEDS: SIMETHICONE 80 MG TAB.CHEW GT SCH ×3 (08:35→17:33)
[2023-04-27] MEDS: REMEDY ESSENTIAL ZINC PASTE 113 GM TOP SCH ×2 (08:35→21:43)
[2023-04-27] MEDS: METOPROLOL TARTRATE 50 MG TABLET GT SCH ×2 (08:35→21:33)
[2023-04-27] MEDS: MINERAL OIL/PETROLATUM,WHITE 57 GM TUBE TP SCH (08:35)
[2023-04-27] MEDS: NEOMY/BACITRA/POLYMYXIN B OINT UD PACKET TP SCH (08:35)
[2023-04-27] MEDS: COD LIVER OIL/ZINC OXIDE OINT 113 GM TUBE TOP SCH ×2 (08:35→21:34)
[2023-04-27] MEDS: SERTRALINE HCL 50 MG TABLET GT SCH (08:35)
[2023-04-27] MEDS: HYDROGEN PEROXIDE 3% 118 ML BOTTLE TP SCH ×2 (09:47→19:29)
[2023-04-27 10:45] VITALS: O2SAT 98
[2023-04-27 20:00] VITALS: TEMP 98.1
[2023-04-27 21:05] VITALS: O2SAT 98
[2023-04-27] MEDS: ASCORBIC ACID 500 MG TABLET GT SCH (21:34)
[2023-04-27] MEDS: MULTIVIT, IRON, MIN NO. 8, FA TABLET GT SCH (21:34)
[2023-04-28] MEDS: OMEPRAZOLE 20 MG CAPSULE.DR GT SCH (05:38)
[2023-04-28 07:31] VITALS: TEMP 97.6
[2023-04-28] MEDS: HYDROGEN PEROXIDE 3% 118 ML BOTTLE TP SCH ×2 (07:31→19:23)
[2023-04-28] MEDS: BACLOFEN 20 MG TABLET GT SCH ×4 (08:17→21:30)
[2023-04-28] MEDS: ACIDOPHILUS/BULGARICUS CHEW TAB GT SCH ×2 (08:17→21:30)
[2023-04-28] MEDS: METOPROLOL TARTRATE 50 MG TABLET GT SCH ×2 (08:20→21:30)
[2023-04-28] MEDS: MINERAL OIL/PETROLATUM,WHITE 57 GM TUBE TP SCH (08:21)
[2023-04-28] MEDS: REMEDY ESSENTIAL ZINC PASTE 113 GM TOP SCH ×2 (08:21→21:32)
[2023-04-28] MEDS: COD LIVER OIL/ZINC OXIDE OINT 113 GM TUBE TOP SCH ×2 (08:21→21:32)
[2023-04-28] MEDS: SIMETHICONE 80 MG TAB.CHEW GT SCH ×3 (08:21→17:00)
[2023-04-28] MEDS: SERTRALINE HCL 50 MG TABLET GT SCH (08:21)
[2023-04-28] MEDS: NEOMY/BACITRA/POLYMYXIN B OINT UD PACKET TP SCH (08:21)
[2023-04-28 09:56] VITALS: O2SAT 98
[2023-04-28] MEDS: GLUCERNA 1.2 1000ML LIQUID GT PRN (17:00)
[2023-04-28 20:00] VITALS: TEMP 96
[2023-04-28 21:05] VITALS: O2SAT 98
[2023-04-28] MEDS: ASCORBIC ACID 500 MG TABLET GT SCH (21:32)
[2023-04-28] MEDS: ACETAMINOPHEN 650 MG/20 ML UDC- SA PATIENTS-PAIN ONLY GT PRN (21:38)
[2023-04-29] MEDS: OMEPRAZOLE 20 MG CAPSULE.DR GT SCH (06:18)
[2023-04-29 08:16] VITALS: TEMP 97.6
[2023-04-29] MEDS: BACLOFEN 20 MG TABLET GT SCH ×4 (09:06→21:41)
[2023-04-29] MEDS: ACIDOPHILUS/BULGARICUS CHEW TAB GT SCH ×2 (09:06→21:39)
[2023-04-29] MEDS: MINERAL OIL/PETROLATUM,WHITE 57 GM TUBE TP SCH (09:07)
[2023-04-29] MEDS: SERTRALINE HCL 50 MG TABLET GT SCH (09:07)
[2023-04-29] MEDS: COD LIVER OIL/ZINC OXIDE OINT 113 GM TUBE TOP SCH ×2 (09:07→21:40)
[2023-04-29] MEDS: SIMETHICONE 80 MG TAB.CHEW GT SCH ×3 (09:07→17:01)
[2023-04-29] MEDS: REMEDY ESSENTIAL ZINC PASTE 113 GM TOP SCH ×2 (09:07→21:40)
[2023-04-29] MEDS: METOPROLOL TARTRATE 50 MG TABLET GT SCH ×2 (09:07→21:41)
[2023-04-29] MEDS: NEOMY/BACITRA/POLYMYXIN B OINT UD PACKET TP SCH (09:07)
[2023-04-29] MEDS: HYDROGEN PEROXIDE 3% 118 ML BOTTLE TP SCH ×2 (09:47→19:11)
[2023-04-29] MEDS ORDERED: TUBERCULIN,PURIF.PROT.DERIV. 5 TU/0.1 ML TEST ID SCH (12:00)
[2023-04-29 14:31] VITALS: O2SAT 99
[2023-04-29 20:00] VITALS: TEMP 97.7
[2023-04-29] MEDS: MULTIVIT, IRON, MIN NO. 8, FA TABLET GT SCH (21:39)
[2023-04-29] MEDS: ASCORBIC ACID 500 MG TABLET GT SCH (21:39)
[2023-04-30 00:23] VITALS: O2SAT 99
[2023-04-30] MEDS: OMEPRAZOLE 20 MG CAPSULE.DR GT SCH (05:28)
[2023-04-30] MEDS: GLUCERNA 1.2 1000ML LIQUID GT PRN (05:28)
[2023-04-30 07:24] VITALS: TEMP 98.8
[2023-04-30 07:59] VITALS: O2SAT 97
[2023-04-30] MEDS: ACIDOPHILUS/BULGARICUS CHEW TAB GT SCH ×2 (08:07→20:00)
[2023-04-30] MEDS: SIMETHICONE 80 MG TAB.CHEW GT SCH ×3 (08:08→17:14)
[2023-04-30] MEDS: BACLOFEN 20 MG TABLET GT SCH ×4 (08:08→20:00)
[2023-04-30] MEDS: KETOCONAZOLE 2% SHAMPOO 120 ML BOTTLE TP SCH (08:08)
[2023-04-30] MEDS: NEOMY/BACITRA/POLYMYXIN B OINT UD PACKET TP SCH (08:08)
[2023-04-30] MEDS: REMEDY ESSENTIAL ZINC PASTE 113 GM TOP SCH ×2 (08:08→20:01)
[2023-04-30] MEDS: METOPROLOL TARTRATE 50 MG TABLET GT SCH ×2 (08:08→20:00)
[2023-04-30] MEDS: MINERAL OIL/PETROLATUM,WHITE 57 GM TUBE TP SCH (08:08)
[2023-04-30] MEDS: SERTRALINE HCL 50 MG TABLET GT SCH (08:08)
[2023-04-30] MEDS: HYDROGEN PEROXIDE 3% 118 ML BOTTLE TP SCH ×2 (09:00→19:17)
[2023-04-30 15:12] VITALS: O2SAT 97
[2023-04-30 19:50] VITALS: O2SAT 99
[2023-04-30] MEDS: ASCORBIC ACID 500 MG TABLET GT SCH (20:00)
[2023-04-30] MEDS: TRIAMCINOLONE ACET 0.1% OINT 15 GM TUBE TP SCH (20:01)
[2023-04-30 20:04] VITALS: TEMP 96
[2023-05-01] MEDS: GLUCERNA 1.2 1000ML LIQUID GT PRN (05:10)
[2023-05-01] MEDS: OMEPRAZOLE 20 MG CAPSULE.DR GT SCH (05:10)
[2023-05-01 07:26] VITALS: TEMP 97.8
[2023-05-01 08:20] VITALS: O2SAT 97
[2023-05-01] MEDS: ACIDOPHILUS/BULGARICUS CHEW TAB GT SCH ×2 (08:43→21:00)
[2023-05-01] MEDS: BACLOFEN 20 MG TABLET GT SCH ×4 (08:47→21:00)
[2023-05-01] MEDS: METOPROLOL TARTRATE 50 MG TABLET GT SCH ×2 (08:47→21:00)
[2023-05-01] MEDS: NEOMY/BACITRA/POLYMYXIN B OINT UD PACKET TP SCH (08:48)
[2023-05-01] MEDS: REMEDY ESSENTIAL ZINC PASTE 113 GM TOP SCH ×2 (08:48→21:00)
[2023-05-01] MEDS: MINERAL OIL/PETROLATUM,WHITE 57 GM TUBE TP SCH (08:48)
[2023-05-01] MEDS: SIMETHICONE 80 MG TAB.CHEW GT SCH ×3 (08:48→16:58)
[2023-05-01] MEDS: SERTRALINE HCL 50 MG TABLET GT SCH (08:48)
[2023-05-01] MEDS: HYDROGEN PEROXIDE 3% 118 ML BOTTLE TP SCH ×2 (09:00→19:03)
[2023-05-01] MEDS ORDERED: TUBERCULIN,PURIF.PROT.DERIV. 5 TU/0.1 ML TEST ID ONE (14:00)
[2023-05-01 15:23] VITALS: O2SAT 97
[2023-05-01 20:00] VITALS: TEMP 96.7
[2023-05-01 20:35] VITALS: O2SAT 99
[2023-05-01] MEDS: ASCORBIC ACID 500 MG TABLET GT SCH (21:00)
[2023-05-01] MEDS: MULTIVIT, IRON, MIN NO. 8, FA TABLET GT SCH (21:00)
[2023-05-02] MEDS: GLUCERNA 1.2 1000ML LIQUID GT PRN (02:01)
[2023-05-02] MEDS: OMEPRAZOLE 20 MG CAPSULE.DR GT SCH (06:43)
[2023-05-02 07:30] VITALS: TEMP 97.5
[2023-05-02] MEDS: HYDROGEN PEROXIDE 3% 118 ML BOTTLE TP SCH ×2 (09:00→20:23)
[2023-05-02] MEDS: REMEDY ESSENTIAL ZINC PASTE 113 GM TOP SCH ×2 (09:45→21:56)
[2023-05-02] MEDS: BACLOFEN 20 MG TABLET GT SCH ×4 (09:45→21:55)
[2023-05-02] MEDS: SIMETHICONE 80 MG TAB.CHEW GT SCH ×3 (09:45→17:40)
[2023-05-02] MEDS: SERTRALINE HCL 50 MG TABLET GT SCH (09:45)
[2023-05-02] MEDS: METOPROLOL TARTRATE 50 MG TABLET GT SCH ×2 (09:45→21:56)
[2023-05-02] MEDS: ACIDOPHILUS/BULGARICUS CHEW TAB GT SCH ×2 (09:45→21:55)
[2023-05-02] MEDS: NEOMY/BACITRA/POLYMYXIN B OINT UD PACKET TP SCH (09:46)
[2023-05-02] MEDS: MINERAL OIL/PETROLATUM,WHITE 57 GM TUBE TP SCH (09:46)
[2023-05-02 10:45] VITALS: O2SAT 98
[2023-05-02 20:00] VITALS: TEMP 98
[2023-05-02] MEDS: ASCORBIC ACID 500 MG TABLET GT SCH (21:56)
[2023-05-02 22:22] VITALS: O2SAT 99
[2023-05-03] MEDS: GLUCERNA 1.2 1000ML LIQUID GT PRN (03:22)
[2023-05-03] MEDS: OMEPRAZOLE 20 MG CAPSULE.DR GT SCH (05:54)
[2023-05-03 08:11] VITALS: TEMP 98.2
[2023-05-03] MEDS: HYDROGEN PEROXIDE 3% 118 ML BOTTLE TP SCH ×2 (09:00→21:59)
[2023-05-03] MEDS: ACIDOPHILUS/BULGARICUS CHEW TAB GT SCH ×2 (09:38→21:00)
[2023-05-03] MEDS: BACLOFEN 20 MG TABLET GT SCH ×4 (09:39→21:00)
[2023-05-03] MEDS: METOPROLOL TARTRATE 50 MG TABLET GT SCH ×2 (09:40→21:00)
[2023-05-03] MEDS: REMEDY ESSENTIAL ZINC PASTE 113 GM TOP SCH ×2 (09:42→21:00)
[2023-05-03] MEDS: SERTRALINE HCL 50 MG TABLET GT SCH (09:42)
[2023-05-03] MEDS: SIMETHICONE 80 MG TAB.CHEW GT SCH ×3 (09:42→17:20)
[2023-05-03] MEDS: MINERAL OIL/PETROLATUM,WHITE 57 GM TUBE TP SCH (09:43)
[2023-05-03] MEDS: KETOCONAZOLE 2% SHAMPOO 120 ML BOTTLE TP SCH (09:43)
[2023-05-03] MEDS: NEOMY/BACITRA/POLYMYXIN B OINT UD PACKET TP SCH (09:43)
[2023-05-03 10:50] VITALS: O2SAT 98
[2023-05-03 20:00] VITALS: TEMP 97.2
[2023-05-03] MEDS: TRIAMCINOLONE ACET 0.1% OINT 15 GM TUBE TP SCH (21:00)
[2023-05-03] MEDS: ASCORBIC ACID 500 MG TABLET GT SCH (21:00)
[2023-05-03] MEDS: MULTIVIT, IRON, MIN NO. 8, FA TABLET GT SCH (21:00)
[2023-05-04 00:31] VITALS: O2SAT 99
[2023-05-04] MEDS: GLUCERNA 1.2 1000ML LIQUID GT PRN (03:13)
[2023-05-04] MEDS: OMEPRAZOLE 20 MG CAPSULE.DR GT SCH (06:00)
[2023-05-04] MEDS: HYDROGEN PEROXIDE 3% 118 ML BOTTLE TP SCH ×2 (07:23→19:16)
[2023-05-04 07:42] VITALS: TEMP 98.6
[2023-05-04] MEDS: MINERAL OIL/PETROLATUM,WHITE 57 GM TUBE TP SCH (09:00)
[2023-05-04] MEDS: NEOMY/BACITRA/POLYMYXIN B OINT UD PACKET TP SCH (09:00)
[2023-05-04] MEDS: SIMETHICONE 80 MG TAB.CHEW GT SCH ×3 (09:00→18:00)
[2023-05-04] MEDS: SERTRALINE HCL 50 MG TABLET GT SCH (09:00)
[2023-05-04] MEDS: METOPROLOL TARTRATE 50 MG TABLET GT SCH ×2 (09:00→20:09)
[2023-05-04] MEDS: ACIDOPHILUS/BULGARICUS CHEW TAB GT SCH ×2 (09:00→20:09)
[2023-05-04] MEDS: REMEDY ESSENTIAL ZINC PASTE 113 GM TOP SCH ×2 (09:00→20:09)
[2023-05-04] MEDS: BACLOFEN 20 MG TABLET GT SCH ×4 (09:00→20:09)
[2023-05-04 09:20] VITALS: O2SAT 98
[2023-05-04] MEDS: ACETAMINOPHEN 650 MG/20 ML UDC- SA PATIENTS-PAIN ONLY GT PRN (12:48)
[2023-05-04 20:00] VITALS: TEMP 97.2
[2023-05-04] MEDS: ASCORBIC ACID 500 MG TABLET GT SCH (20:09)
[2023-05-04 20:35] VITALS: O2SAT 99
[2023-05-05] MEDS: OMEPRAZOLE 20 MG CAPSULE.DR GT SCH (05:36)
[2023-05-05 07:12] VITALS: O2SAT 97
[2023-05-05] MEDS: ACIDOPHILUS/BULGARICUS CHEW TAB GT SCH ×2 (08:22→21:17)
[2023-05-05] MEDS: BACLOFEN 20 MG TABLET GT SCH ×4 (08:22→21:19)
[2023-05-05] MEDS: SIMETHICONE 80 MG TAB.CHEW GT SCH ×3 (08:23→16:58)
[2023-05-05] MEDS: METOPROLOL TARTRATE 50 MG TABLET GT SCH ×2 (08:23→21:19)
[2023-05-05] MEDS: REMEDY ESSENTIAL ZINC PASTE 113 GM TOP SCH ×2 (08:24→21:18)
[2023-05-05] MEDS: SERTRALINE HCL 50 MG TABLET GT SCH (08:24)
[2023-05-05] MEDS: MINERAL OIL/PETROLATUM,WHITE 57 GM TUBE TP SCH (08:24)
[2023-05-05 08:29] VITALS: TEMP 97.8
[2023-05-05] MEDS: NEOMY/BACITRA/POLYMYXIN B OINT UD PACKET TP SCH (08:53)
[2023-05-05] MEDS: GLUCERNA 1.2 1000ML LIQUID GT PRN (08:54)
[2023-05-05] MEDS: HYDROGEN PEROXIDE 3% 118 ML BOTTLE TP SCH ×2 (09:38→19:12)
[2023-05-05 15:34] VITALS: O2SAT 97
[2023-05-05 20:00] VITALS: TEMP 97.4
[2023-05-05 20:50] VITALS: O2SAT 99
[2023-05-05] MEDS: MULTIVIT, IRON, MIN NO. 8, FA TABLET GT SCH (21:17)
[2023-05-05] MEDS: ASCORBIC ACID 500 MG TABLET GT SCH (21:17)
[2023-05-06] MEDS: GLUCERNA 1.2 1000ML LIQUID GT PRN (05:56)
[2023-05-06] MEDS: OMEPRAZOLE 20 MG CAPSULE.DR GT SCH (05:56)
[2023-05-06 07:35] VITALS: O2SAT 97
[2023-05-06] MEDS: HYDROGEN PEROXIDE 3% 118 ML BOTTLE TP SCH ×2 (07:35→19:11)
[2023-05-06 07:51] VITALS: TEMP 97
[2023-05-06] MEDS: ACIDOPHILUS/BULGARICUS CHEW TAB GT SCH ×2 (09:20→21:14)
[2023-05-06] MEDS: BACLOFEN 20 MG TABLET GT SCH ×4 (09:20→21:16)
[2023-05-06] MEDS: SERTRALINE HCL 50 MG TABLET GT SCH (09:21)
[2023-05-06] MEDS: METOPROLOL TARTRATE 50 MG TABLET GT SCH ×2 (09:21→21:16)
[2023-05-06] MEDS: NEOMY/BACITRA/POLYMYXIN B OINT UD PACKET TP SCH (09:21)
[2023-05-06] MEDS: MINERAL OIL/PETROLATUM,WHITE 57 GM TUBE TP SCH (09:21)
[2023-05-06] MEDS: SIMETHICONE 80 MG TAB.CHEW GT SCH ×3 (09:21→17:20)
[2023-05-06] MEDS: REMEDY ESSENTIAL ZINC PASTE 113 GM TOP SCH ×2 (09:21→21:17)
[2023-05-06 20:01] VITALS: TEMP 97
[2023-05-06 20:40] VITALS: O2SAT 99
[2023-05-06] MEDS: ASCORBIC ACID 500 MG TABLET GT SCH (21:16)
[2023-05-07] MEDS: OMEPRAZOLE 20 MG CAPSULE.DR GT SCH (05:44)
[2023-05-07] MEDS: GLUCERNA 1.2 1000ML LIQUID GT PRN (05:44)
[2023-05-07 07:29] VITALS: TEMP 97.8
[2023-05-07] MEDS: HYDROGEN PEROXIDE 3% 118 ML BOTTLE TP SCH ×2 (08:08→21:21)
[2023-05-07] MEDS: BACLOFEN 20 MG TABLET GT SCH ×4 (08:10→21:45)
[2023-05-07] MEDS: ACIDOPHILUS/BULGARICUS CHEW TAB GT SCH ×2 (08:10→21:45)
[2023-05-07] MEDS: SERTRALINE HCL 50 MG TABLET GT SCH (08:11)
[2023-05-07] MEDS: SIMETHICONE 80 MG TAB.CHEW GT SCH ×3 (08:11→17:42)
[2023-05-07] MEDS: METOPROLOL TARTRATE 50 MG TABLET GT SCH ×2 (08:16→21:47)
[2023-05-07] MEDS: REMEDY ESSENTIAL ZINC PASTE 113 GM TOP SCH ×2 (08:16→21:48)
[2023-05-07] MEDS: MINERAL OIL/PETROLATUM,WHITE 57 GM TUBE TP SCH (08:16)
[2023-05-07] MEDS: KETOCONAZOLE 2% SHAMPOO 120 ML BOTTLE TP SCH (08:16)
[2023-05-07] MEDS: NEOMY/BACITRA/POLYMYXIN B OINT UD PACKET TP SCH (08:19)
[2023-05-07 12:54] VITALS: O2SAT 99
[2023-05-07 19:51] VITALS: TEMP 96.8
[2023-05-07] MEDS: MULTIVIT, IRON, MIN NO. 8, FA TABLET GT SCH (21:47)
[2023-05-07] MEDS: ASCORBIC ACID 500 MG TABLET GT SCH (21:47)
[2023-05-07] MEDS: TRIAMCINOLONE ACET 0.1% OINT 15 GM TUBE TP SCH (21:48)
[2023-05-07 23:36] VITALS: O2SAT 98
[2023-05-08] MEDS: OMEPRAZOLE 20 MG CAPSULE.DR GT SCH (05:18)
[2023-05-08] MEDS: GLUCERNA 1.2 1000ML LIQUID GT PRN (05:18)
[2023-05-08 07:29] VITALS: TEMP 97.7
[2023-05-08 07:40] VITALS: O2SAT 97
[2023-05-08] MEDS: HYDROGEN PEROXIDE 3% 118 ML BOTTLE TP SCH ×2 (09:00→19:24)
[2023-05-08] MEDS: SIMETHICONE 80 MG TAB.CHEW GT SCH ×3 (09:00→17:32)
[2023-05-08] MEDS: BACLOFEN 20 MG TABLET GT SCH ×4 (09:32→20:36)
[2023-05-08] MEDS: ACIDOPHILUS/BULGARICUS CHEW TAB GT SCH ×2 (09:32→20:36)
[2023-05-08] MEDS: SERTRALINE HCL 50 MG TABLET GT SCH (09:34)
[2023-05-08] MEDS: METOPROLOL TARTRATE 50 MG TABLET GT SCH ×2 (09:34→20:38)
[2023-05-08] MEDS: REMEDY ESSENTIAL ZINC PASTE 113 GM TOP SCH ×2 (09:34→20:39)
[2023-05-08] MEDS: MINERAL OIL/PETROLATUM,WHITE 57 GM TUBE TP SCH (09:34)
[2023-05-08] MEDS: NEOMY/BACITRA/POLYMYXIN B OINT UD PACKET TP SCH (09:35)
[2023-05-08 20:00] VITALS: TEMP 98.2
[2023-05-08] MEDS: ASCORBIC ACID 500 MG TABLET GT SCH (20:39)
[2023-05-08] MEDS: ACETAMINOPHEN 650 MG/20 ML UDC- SA PATIENTS-PAIN ONLY GT PRN (20:40)
[2023-05-08 21:20] VITALS: O2SAT 98
[2023-05-09] MEDS: GLUCERNA 1.2 1000ML LIQUID GT PRN (06:01)
[2023-05-09] MEDS: OMEPRAZOLE 20 MG CAPSULE.DR GT SCH (06:01)
[2023-05-09] MEDS: NEOMY/BACITRA/POLYMYXIN B OINT UD PACKET TP SCH (09:00)
[2023-05-09] MEDS: HYDROGEN PEROXIDE 3% 118 ML BOTTLE TP SCH ×2 (09:02→19:12)
[2023-05-09] MEDS: ACIDOPHILUS/BULGARICUS CHEW TAB GT SCH ×2 (09:20→21:00)
[2023-05-09] MEDS: BACLOFEN 20 MG TABLET GT SCH ×4 (09:20→21:00)
[2023-05-09] MEDS: SERTRALINE HCL 50 MG TABLET GT SCH (09:21)
[2023-05-09] MEDS: SIMETHICONE 80 MG TAB.CHEW GT SCH ×3 (09:21→17:31)
[2023-05-09] MEDS: METOPROLOL TARTRATE 50 MG TABLET GT SCH ×2 (09:21→21:00)
[2023-05-09] MEDS: REMEDY ESSENTIAL ZINC PASTE 113 GM TOP SCH ×2 (09:21→21:00)
[2023-05-09] MEDS: MINERAL OIL/PETROLATUM,WHITE 57 GM TUBE TP SCH (09:21)
[2023-05-09 13:21] VITALS: O2SAT 99
[2023-05-09 20:13] VITALS: TEMP 97.2
[2023-05-09 21:00] VITALS: O2SAT 98
[2023-05-09] MEDS: MULTIVIT, IRON, MIN NO. 8, FA TABLET GT SCH (21:00)
[2023-05-09] MEDS: ASCORBIC ACID 500 MG TABLET GT SCH (21:00)
[2023-05-10] MEDS: OMEPRAZOLE 20 MG CAPSULE.DR GT SCH (05:10)
[2023-05-10] MEDS: GLUCERNA 1.2 1000ML LIQUID GT PRN (05:10)
[2023-05-10 08:03] VITALS: O2SAT 97
[2023-05-10] MEDS: HYDROGEN PEROXIDE 3% 118 ML BOTTLE TP SCH ×2 (08:09→19:11)
[2023-05-10] MEDS: METOPROLOL TARTRATE 50 MG TABLET GT SCH ×2 (08:24→21:52)
[2023-05-10] MEDS: BACLOFEN 20 MG TABLET GT SCH ×4 (08:24→21:51)
[2023-05-10] MEDS: ACIDOPHILUS/BULGARICUS CHEW TAB GT SCH ×2 (08:24→21:51)
[2023-05-10] MEDS: REMEDY ESSENTIAL ZINC PASTE 113 GM TOP SCH ×2 (08:25→21:52)
[2023-05-10] MEDS: NEOMY/BACITRA/POLYMYXIN B OINT UD PACKET TP SCH (08:25)
[2023-05-10] MEDS: KETOCONAZOLE 2% SHAMPOO 120 ML BOTTLE TP SCH (08:25)
[2023-05-10] MEDS: SIMETHICONE 80 MG TAB.CHEW GT SCH ×3 (08:25→16:35)
[2023-05-10] MEDS: SERTRALINE HCL 50 MG TABLET GT SCH (08:25)
[2023-05-10] MEDS: MINERAL OIL/PETROLATUM,WHITE 57 GM TUBE TP SCH (08:25)
[2023-05-10 10:00] VITALS: TEMP 98
[2023-05-10 20:00] VITALS: TEMP 97.4
[2023-05-10] MEDS: ACETAMINOPHEN 650 MG/20 ML UDC- SA PATIENTS-PAIN ONLY GT PRN (21:00)
[2023-05-10 21:10] VITALS: O2SAT 98
[2023-05-10] MEDS: TRIAMCINOLONE ACET 0.1% OINT 15 GM TUBE TP SCH (21:52)
[2023-05-10] MEDS: ASCORBIC ACID 500 MG TABLET GT SCH (21:52)
[2023-05-11] MEDS: GLUCERNA 1.2 1000ML LIQUID GT PRN (04:04)
[2023-05-11] MEDS: OMEPRAZOLE 20 MG CAPSULE.DR GT SCH (05:34)
[2023-05-11] MEDS: SERTRALINE HCL 50 MG TABLET GT SCH (08:17)
[2023-05-11] MEDS: BACLOFEN 20 MG TABLET GT SCH ×4 (08:17→21:00)
[2023-05-11] MEDS: SIMETHICONE 80 MG TAB.CHEW GT SCH ×3 (08:17→16:24)
[2023-05-11] MEDS: ACIDOPHILUS/BULGARICUS CHEW TAB GT SCH ×2 (08:17→21:00)
[2023-05-11] MEDS: REMEDY ESSENTIAL ZINC PASTE 113 GM TOP SCH ×2 (08:18→21:00)
[2023-05-11] MEDS: MINERAL OIL/PETROLATUM,WHITE 57 GM TUBE TP SCH (08:18)
[2023-05-11] MEDS: METOPROLOL TARTRATE 50 MG TABLET GT SCH ×2 (09:00→21:00)
[2023-05-11] MEDS: HYDROGEN PEROXIDE 3% 118 ML BOTTLE TP SCH ×2 (09:48→20:22)
[2023-05-11 10:40] VITALS: O2SAT 98
[2023-05-11 11:05] VITALS: TEMP 97.7
[2023-05-11 20:00] VITALS: BP 135/82; TEMP 97.1; O2SAT 100
[2023-05-11 20:35] VITALS: O2SAT 98
[2023-05-11] MEDS: ASCORBIC ACID 500 MG TABLET GT SCH (21:00)
[2023-05-11] MEDS: MULTIVIT, IRON, MIN NO. 8, FA TABLET GT SCH (21:00)
[2023-05-12] MEDS: GLUCERNA 1.2 1000ML LIQUID GT PRN (04:17)
[2023-05-12] MEDS: OMEPRAZOLE 20 MG CAPSULE.DR GT SCH (06:42)
[2023-05-12 08:32] VITALS: O2SAT 98
[2023-05-12] MEDS: ACIDOPHILUS/BULGARICUS CHEW TAB GT SCH ×2 (09:00→20:43)
[2023-05-12] MEDS: SIMETHICONE 80 MG TAB.CHEW GT SCH ×3 (09:00→17:19)
[2023-05-12] MEDS: REMEDY ESSENTIAL ZINC PASTE 113 GM TOP SCH ×2 (09:00→20:45)
[2023-05-12] MEDS: SERTRALINE HCL 50 MG TABLET GT SCH (09:00)
[2023-05-12] MEDS: BACLOFEN 20 MG TABLET GT SCH ×4 (09:00→20:43)
[2023-05-12] MEDS: METOPROLOL TARTRATE 50 MG TABLET GT SCH ×2 (09:00→20:43)
[2023-05-12 09:17] VITALS: TEMP 97.7
[2023-05-12] MEDS: HYDROGEN PEROXIDE 3% 118 ML BOTTLE TP SCH ×2 (09:32→20:45)
[2023-05-12 10:00] VITALS: TEMP 97.7
[2023-05-12] MEDS: MINERAL OIL/PETROLATUM,WHITE 57 GM TUBE TP SCH (10:00)
[2023-05-12 20:00] VITALS: TEMP 98.3
[2023-05-12] MEDS: ASCORBIC ACID 500 MG TABLET GT SCH (20:45)
[2023-05-12 21:49] VITALS: O2SAT 99
[2023-05-13] MEDS: OMEPRAZOLE 20 MG CAPSULE.DR GT SCH (05:20)
[2023-05-13] MEDS: GLUCERNA 1.2 1000ML LIQUID GT PRN (06:50)
[2023-05-13 08:06] VITALS: TEMP 97.6
[2023-05-13] MEDS: SIMETHICONE 80 MG TAB.CHEW GT SCH ×3 (08:14→17:21)
[2023-05-13] MEDS: METOPROLOL TARTRATE 50 MG TABLET GT SCH ×2 (08:14→21:31)
[2023-05-13] MEDS: ACIDOPHILUS/BULGARICUS CHEW TAB GT SCH ×2 (08:14→21:30)
[2023-05-13] MEDS: REMEDY ESSENTIAL ZINC PASTE 113 GM TOP SCH ×2 (08:14→21:31)
[2023-05-13] MEDS: MINERAL OIL/PETROLATUM,WHITE 57 GM TUBE TP SCH (08:14)
[2023-05-13] MEDS: SERTRALINE HCL 50 MG TABLET GT SCH (08:14)
[2023-05-13] MEDS: BACLOFEN 20 MG TABLET GT SCH ×4 (08:14→21:30)
[2023-05-13] MEDS: HYDROGEN PEROXIDE 3% 118 ML BOTTLE TP SCH ×2 (09:00→19:15)
[2023-05-13 10:00] VITALS: TEMP 97.6
[2023-05-13 11:18] VITALS: O2SAT 99
[2023-05-13 20:00] VITALS: TEMP 97.4
[2023-05-13 21:05] VITALS: O2SAT 98
[2023-05-13] MEDS: MULTIVIT, IRON, MIN NO. 8, FA TABLET GT SCH (21:31)
[2023-05-13] MEDS: ASCORBIC ACID 500 MG TABLET GT SCH (21:31)
[2023-05-14] MEDS: GLUCERNA 1.2 1000ML LIQUID GT PRN (05:00)
[2023-05-14] MEDS: OMEPRAZOLE 20 MG CAPSULE.DR GT SCH (05:07)
[2023-05-14] MEDS: HYDROGEN PEROXIDE 3% 118 ML BOTTLE TP SCH ×2 (07:12→21:00)
[2023-05-14] MEDS: ACIDOPHILUS/BULGARICUS CHEW TAB GT SCH ×2 (08:52→21:00)
[2023-05-14] MEDS: BACLOFEN 20 MG TABLET GT SCH ×4 (08:52→21:00)
[2023-05-14] MEDS: METOPROLOL TARTRATE 50 MG TABLET GT SCH ×2 (08:54→21:00)
[2023-05-14] MEDS: SERTRALINE HCL 50 MG TABLET GT SCH (08:55)
[2023-05-14] MEDS: KETOCONAZOLE 2% SHAMPOO 120 ML BOTTLE TP SCH (08:55)
[2023-05-14] MEDS: SIMETHICONE 80 MG TAB.CHEW GT SCH ×3 (08:55→16:59)
[2023-05-14] MEDS: MINERAL OIL/PETROLATUM,WHITE 57 GM TUBE TP SCH (08:55)
[2023-05-14] MEDS: REMEDY ESSENTIAL ZINC PASTE 113 GM TOP SCH ×2 (08:55→21:00)
[2023-05-14 09:00] VITALS: TEMP 98.1
[2023-05-14 09:15] VITALS: O2SAT 99
[2023-05-14 10:30] VITALS: O2SAT 98
[2023-05-14 10:44] VITALS: TEMP 97.2
[2023-05-14 20:00] VITALS: TEMP 97.4
[2023-05-14 20:40] VITALS: O2SAT 99
[2023-05-14] MEDS: ASCORBIC ACID 500 MG TABLET GT SCH (21:00)
[2023-05-14] MEDS: TRIAMCINOLONE ACET 0.1% OINT 15 GM TUBE TP SCH (21:00)
[2023-05-15] MEDS: GLUCERNA 1.2 1000ML LIQUID GT PRN (02:22)
[2023-05-15] MEDS: OMEPRAZOLE 20 MG CAPSULE.DR GT SCH (06:00)
[2023-05-15 08:30] VITALS: TEMP 98.2
[2023-05-15] MEDS: MINERAL OIL/PETROLATUM,WHITE 57 GM TUBE TP SCH (09:00)
[2023-05-15] MEDS: HYDROGEN PEROXIDE 3% 118 ML BOTTLE TP SCH ×2 (09:00→19:20)
[2023-05-15] MEDS: SIMETHICONE 80 MG TAB.CHEW GT SCH ×3 (09:00→17:31)
[2023-05-15] MEDS: BACLOFEN 20 MG TABLET GT SCH ×4 (09:00→21:06)
[2023-05-15] MEDS: SERTRALINE HCL 50 MG TABLET GT SCH (09:00)
[2023-05-15] MEDS: ACIDOPHILUS/BULGARICUS CHEW TAB GT SCH ×2 (09:00→21:06)
[2023-05-15] MEDS: METOPROLOL TARTRATE 50 MG TABLET GT SCH ×2 (09:00→21:07)
[2023-05-15] MEDS: REMEDY ESSENTIAL ZINC PASTE 113 GM TOP SCH ×2 (09:00→21:07)
[2023-05-15 10:50] VITALS: O2SAT 99
[2023-05-15 16:22] VITALS: TEMP 98.2
[2023-05-15 17:57] VITALS: TEMP 98.7
[2023-05-15 20:03] VITALS: TEMP 98.3
[2023-05-15] MEDS: ASCORBIC ACID 500 MG TABLET GT SCH (21:07)
[2023-05-15] MEDS: MULTIVIT, IRON, MIN NO. 8, FA TABLET GT SCH (21:07)
[2023-05-15 21:10] VITALS: O2SAT 98
[2023-05-16] MEDS: OMEPRAZOLE 20 MG CAPSULE.DR GT SCH (05:00)
[2023-05-16] MEDS: HYDROGEN PEROXIDE 3% 118 ML BOTTLE TP SCH ×2 (07:32→19:07)
[2023-05-16 08:25] VITALS: BP 122/83; TEMP 97.8; O2SAT 94
[2023-05-16] MEDS: REMEDY ESSENTIAL ZINC PASTE 113 GM TOP SCH ×2 (09:00→21:52)
[2023-05-16] MEDS: MINERAL OIL/PETROLATUM,WHITE 57 GM TUBE TP SCH (09:00)
[2023-05-16] MEDS: METOPROLOL TARTRATE 50 MG TABLET GT SCH ×2 (09:00→21:51)
[2023-05-16] MEDS: ACIDOPHILUS/BULGARICUS CHEW TAB GT SCH ×2 (09:00→21:45)
[2023-05-16] MEDS: SIMETHICONE 80 MG TAB.CHEW GT SCH ×3 (09:00→17:40)
[2023-05-16] MEDS: BACLOFEN 20 MG TABLET GT SCH ×4 (09:00→21:50)
[2023-05-16] MEDS: SERTRALINE HCL 50 MG TABLET GT SCH (09:00)
[2023-05-16] MEDS: GLUCERNA 1.2 1000ML LIQUID GT PRN (10:22)
[2023-05-16 10:55] VITALS: O2SAT 98
[2023-05-16 20:00] VITALS: TEMP 98.4
[2023-05-16 21:05] VITALS: O2SAT 98
[2023-05-16] MEDS: ASCORBIC ACID 500 MG TABLET GT SCH (21:52)
[2023-05-17] MEDS: OMEPRAZOLE 20 MG CAPSULE.DR GT SCH (05:47)
[2023-05-17 07:46] VITALS: TEMP 97.8
[2023-05-17] MEDS: HYDROGEN PEROXIDE 3% 118 ML BOTTLE TP SCH ×2 (08:16→21:12)
[2023-05-17 08:17] VITALS: O2SAT 97
[2023-05-17] MEDS: SERTRALINE HCL 50 MG TABLET GT SCH (09:00)
[2023-05-17] MEDS: ACIDOPHILUS/BULGARICUS CHEW TAB GT SCH ×2 (09:00→21:00)
[2023-05-17] MEDS: KETOCONAZOLE 2% SHAMPOO 120 ML BOTTLE TP SCH (09:00)
[2023-05-17] MEDS: MINERAL OIL/PETROLATUM,WHITE 57 GM TUBE TP SCH (09:00)
[2023-05-17] MEDS: METOPROLOL TARTRATE 50 MG TABLET GT SCH ×2 (09:00→21:00)
[2023-05-17] MEDS: BACLOFEN 20 MG TABLET GT SCH ×4 (09:00→21:00)
[2023-05-17] MEDS: SIMETHICONE 80 MG TAB.CHEW GT SCH ×3 (09:00→17:00)
[2023-05-17] MEDS: REMEDY ESSENTIAL ZINC PASTE 113 GM TOP SCH ×2 (09:00→21:00)
[2023-05-17] MEDS: GLUCERNA 1.2 1000ML LIQUID GT PRN (14:31)
[2023-05-17 19:20] VITALS: O2SAT 98
[2023-05-17 20:00] VITALS: TEMP 98.3
[2023-05-17] MEDS: MULTIVIT, IRON, MIN NO. 8, FA TABLET GT SCH (21:00)
[2023-05-17] MEDS: TRIAMCINOLONE ACET 0.1% OINT 15 GM TUBE TP SCH (21:00)
[2023-05-17] MEDS: ASCORBIC ACID 500 MG TABLET GT SCH (21:00)
[2023-05-18] MEDS: OMEPRAZOLE 20 MG CAPSULE.DR GT SCH (05:04)
[2023-05-18] MEDS: HYDROGEN PEROXIDE 3% 118 ML BOTTLE TP SCH ×2 (07:21→19:09)
[2023-05-18 08:03] VITALS: TEMP 97.5
[2023-05-18 08:32] VITALS: O2SAT 97
[2023-05-18] MEDS: METOPROLOL TARTRATE 50 MG TABLET GT SCH ×2 (08:56→21:31)
[2023-05-18] MEDS: SERTRALINE HCL 50 MG TABLET GT SCH (08:57)
[2023-05-18] MEDS: BACLOFEN 20 MG TABLET GT SCH ×4 (08:57→21:30)
[2023-05-18] MEDS: ACIDOPHILUS/BULGARICUS CHEW TAB GT SCH ×2 (08:58→21:30)
[2023-05-18] MEDS: SIMETHICONE 80 MG TAB.CHEW GT SCH ×3 (08:58→17:00)
[2023-05-18] MEDS: REMEDY ESSENTIAL ZINC PASTE 113 GM TOP SCH ×2 (08:59→21:31)
[2023-05-18] MEDS: MINERAL OIL/PETROLATUM,WHITE 57 GM TUBE TP SCH (08:59)
[2023-05-18 19:00] VITALS: O2SAT 98
[2023-05-18 20:00] VITALS: TEMP 98.2
[2023-05-18] MEDS: ASCORBIC ACID 500 MG TABLET GT SCH (21:31)
[2023-05-19] MEDS: GLUCERNA 1.2 1000ML LIQUID GT PRN (02:32)
[2023-05-19] MEDS: OMEPRAZOLE 20 MG CAPSULE.DR GT SCH (05:31)
[2023-05-19] MEDS: HYDROGEN PEROXIDE 3% 118 ML BOTTLE TP SCH ×2 (08:28→19:15)
[2023-05-19] MEDS: REMEDY ESSENTIAL ZINC PASTE 113 GM TOP SCH ×2 (09:00→21:00)
[2023-05-19] MEDS: MINERAL OIL/PETROLATUM,WHITE 57 GM TUBE TP SCH (09:00)
[2023-05-19] MEDS: BACLOFEN 20 MG TABLET GT SCH ×4 (09:59→21:00)
[2023-05-19] MEDS: SIMETHICONE 80 MG TAB.CHEW GT SCH ×3 (09:59→17:03)
[2023-05-19] MEDS: METOPROLOL TARTRATE 50 MG TABLET GT SCH ×2 (09:59→21:00)
[2023-05-19] MEDS: ACIDOPHILUS/BULGARICUS CHEW TAB GT SCH ×2 (09:59→21:00)
[2023-05-19] MEDS: SERTRALINE HCL 50 MG TABLET GT SCH (09:59)
[2023-05-19 11:53] VITALS: O2SAT 97
[2023-05-19 12:11] VITALS: TEMP 98
[2023-05-19 20:35] VITALS: O2SAT 98
[2023-05-19] MEDS: MULTIVIT, IRON, MIN NO. 8, FA TABLET GT SCH (21:00)
[2023-05-19] MEDS: ASCORBIC ACID 500 MG TABLET GT SCH (21:00)
[2023-05-19 22:00] VITALS: TEMP 97.6
[2023-05-20] MEDS: OMEPRAZOLE 20 MG CAPSULE.DR GT SCH (05:16)
[2023-05-20] MEDS: HYDROGEN PEROXIDE 3% 118 ML BOTTLE TP SCH ×2 (07:14→19:12)
[2023-05-20 08:07] VITALS: TEMP 97.6
[2023-05-20 08:32] VITALS: O2SAT 97
[2023-05-20] MEDS: BACLOFEN 20 MG TABLET GT SCH ×4 (09:52→21:00)
[2023-05-20] MEDS: ACIDOPHILUS/BULGARICUS CHEW TAB GT SCH ×2 (09:52→21:00)
[2023-05-20] MEDS: SERTRALINE HCL 50 MG TABLET GT SCH (09:53)
[2023-05-20] MEDS: MINERAL OIL/PETROLATUM,WHITE 57 GM TUBE TP SCH (09:53)
[2023-05-20] MEDS: REMEDY ESSENTIAL ZINC PASTE 113 GM TOP SCH ×2 (09:53→21:00)
[2023-05-20] MEDS: SIMETHICONE 80 MG TAB.CHEW GT SCH ×3 (09:53→17:00)
[2023-05-20] MEDS: METOPROLOL TARTRATE 50 MG TABLET GT SCH ×2 (09:55→21:00)
[2023-05-20] MEDS: GLUCERNA 1.2 1000ML LIQUID GT PRN (18:35)
[2023-05-20 20:55] VITALS: O2SAT 98
[2023-05-20] MEDS: ASCORBIC ACID 500 MG TABLET GT SCH (21:00)
[2023-05-20 22:24] VITALS: TEMP 98.3
[2023-05-20] MEDS: ACETAMINOPHEN 650 MG/20 ML UDC- SA PATIENTS-PAIN ONLY GT PRN (22:29)
[2023-05-21] MEDS: OMEPRAZOLE 20 MG CAPSULE.DR GT SCH (06:42)
[2023-05-21] MEDS: HYDROGEN PEROXIDE 3% 118 ML BOTTLE TP SCH ×2 (07:30→19:10)
[2023-05-21 07:55] VITALS: TEMP 97.6
[2023-05-21] MEDS: ACIDOPHILUS/BULGARICUS CHEW TAB GT SCH ×2 (08:55→21:48)
[2023-05-21] MEDS: METOPROLOL TARTRATE 50 MG TABLET GT SCH ×2 (08:56→21:00)
[2023-05-21] MEDS: SIMETHICONE 80 MG TAB.CHEW GT SCH ×3 (08:56→16:31)
[2023-05-21] MEDS: BACLOFEN 20 MG TABLET GT SCH ×4 (08:56→21:51)
[2023-05-21] MEDS: KETOCONAZOLE 2% SHAMPOO 120 ML BOTTLE TP SCH (08:57)
[2023-05-21] MEDS: MINERAL OIL/PETROLATUM,WHITE 57 GM TUBE TP SCH (08:57)
[2023-05-21] MEDS: REMEDY ESSENTIAL ZINC PASTE 113 GM TOP SCH ×2 (08:57→21:49)
[2023-05-21] MEDS: SERTRALINE HCL 50 MG TABLET GT SCH (08:57)
[2023-05-21 10:50] VITALS: O2SAT 97
[2023-05-21] MEDS: GLUCERNA 1.2 1000ML LIQUID GT PRN (17:21)
[2023-05-21 20:00] VITALS: TEMP 97.7
[2023-05-21 21:00] VITALS: BP 96/62
[2023-05-21 21:15] VITALS: O2SAT 98
[2023-05-21] MEDS: ASCORBIC ACID 500 MG TABLET GT SCH (21:49)
[2023-05-21] MEDS: MULTIVIT, IRON, MIN NO. 8, FA TABLET GT SCH (21:49)
[2023-05-21] MEDS: TRIAMCINOLONE ACET 0.1% OINT 15 GM TUBE TP SCH (21:50)
[2023-05-22] MEDS: OMEPRAZOLE 20 MG CAPSULE.DR GT SCH (06:17)
== END 2023-05-20 23:59 | disposition still patient (30) | DRG 133 ==
LOC: SA → UNDOADMIN 05-23 07:45 → SA 05-23 07:45 → SA1 12-14 22:09 → SA 12-17 19:37
PROVIDERS: ADMIT Internal Medicine; ATTEND Internal Medicine
DX: J96.11 Chronic respiratory failure with hypoxia (principal); R40.3 Persistent vegetative state; G93.1 Anoxic brain damage, not elsewhere classified; D56.1 Beta thalassemia; Z93.0 Tracheostomy status; F32.A Depression, unspecified; L40.9 Psoriasis, unspecified; Z66 Do not resuscitate; Z87.440 Personal history of urinary (tract) infections; Z79.899 Other long term (current) drug therapy; Z93.1 Gastrostomy status; R13.10 Dysphagia, unspecified; M24.542 Contracture, left hand; M24.541 Contracture, right hand; Z88.1 Allergy status to other antibiotic agents; H00.014 Hordeolum externum left upper eyelid; H00.011 Hordeolum externum right upper eyelid; J98.11 Atelectasis; L08.9 Local infection of the skin and subcutaneous tissue, unspecified
CPT/HCPCS: 36415; 70030-TC; 71045; 73140; 74018; 83615; 85025; 86140; 86580; 90686; 94640; A4663; A6209; A6213; C1758; J8499; Q9963; U0003